=== PATIENT | male | born 1945 | race Caucasian/White ===

== ENCOUNTER 2022-09-14 02:28 | Outpatient (REF) | payer MEDICARE, SELFPAY ==
[2022-09-14 12:12] LABS: Estimated Average Glucose 180 mg/dL; Glycohemoglobin A1C 7.9 % (4.5-6.2)
== END 2022-09-14 02:29 | disposition home or self-care (01) ==
LOC: LAB 02:28
PROVIDERS: PCP Specialist; Visit Provider Specialist
DX: E11.59 Type 2 diabetes mellitus with other circulatory complications (principal)
CPT/HCPCS: 36415; 83036

== ENCOUNTER 2022-10-16 02:11 | Outpatient (REF) | payer MEDICARE, SELFPAY ==
[2022-10-16 07:56] LABS: Basophils Percent Auto 0.4 % (0.2-2.0); Eosinophils Absolute Auto 0.1 10^3/uL (0.0-0.7); Eosinophils Percent Auto 1.7 % (0.9-7.0); Hematocrit 35.5 % (42.0-54.0); Hemoglobin 10.9 g/dL (14.0-18.0); Immature Granulocytes Abs Auto 0.03 10^3/uL (0.00-0.03); Immature Granulocytes Pct Auto 0.4 % (0.0-0.5); Lymphocytes Absolute Auto 1.1 10^3/uL (1.2-3.8); Lymphocytes Percent Auto 14.8 % (20.5-60.0); Mean Corpuscular HGB Conc 30.7 g/dL (29.9-35.2); Mean Corpuscular Hemoglobin 28.3 pg (25.9-34.0); Mean Corpuscular Volume 92.2 fL (80.0-94.0); Mean Platelet Volume 11.8 fL (9.5-13.5); Monocytes Absolute Auto 0.5 10^3/uL (0.3-0.8); Monocytes Percent Auto 6.7 % (1.7-12.0); Neutrophils Absolute Auto 5.8 10^3/uL (1.4-6.5); Platelet Count 138 10^3/uL (150-450); Red Blood Count 3.85 10^6/uL (4.70-6.10); Red Cell Distribution Width 13.6 % (11.0-15.0); White Blood Count 7.6 10^3/uL (4.0-11.0)
[2022-10-16 08:29] LABS: Alanine Aminotransferase 7 U/L (16-63); Albumin Globulin Ratio 0.7; Albumin Level 2.9 g/dL (3.4-5.0); Alkaline Phosphatase 69 U/L (46-116); Anion Gap 12.3; Aspartate Amino Transferase 10 U/L (15-37); BUN Creatinine Ratio 17.6; Bilirubin Total 0.2 mg/dL (0.2-1.0); Calcium 8.5 mg/dL (8.5-10.1); Carbon Dioxide 28.4 mmol/L (21.0-32.0); Chloride 110 mmol/L (98-107); Estimated GFR (African America 35 (>=60); Estimated GFR (Non-African Ame 29 (>=60); Globulin 4.2 g/dL; Glucose 99 mg/dL (74-106); Magnesium 2.6 mg/dL (1.8-2.4); Potassium 3.7 mmol/L (3.5-5.1); Sodium 147 mmol/L (136-145); Total Protein 7.1 g/dL (6.4-8.2)
[2022-10-19 11:08] LABS: Tacrolimus (FK506), Blood 7.9 ng/mL (2.0-20.0)
== END 2022-10-16 02:12 | disposition home or self-care (01) ==
LOC: LAB 02:11
PROVIDERS: PCP Specialist; Visit Provider Family Medicine
DX: Z94.1 Heart transplant status (principal)
CPT/HCPCS: 36415; 80053; 80197; 83735; 85025

== ENCOUNTER 2022-10-30 08:50 | Outpatient (REF) | payer MEDICARE, SELFPAY ==
[2022-10-30 09:25] LABS: Alanine Aminotransferase 10 U/L (16-63); Albumin Globulin Ratio 0.7; Albumin Level 3.1 g/dL (3.4-5.0); Alkaline Phosphatase 69 U/L (46-116); Anion Gap 8.1; Aspartate Amino Transferase 10 U/L (15-37); BUN Creatinine Ratio 15.9; Bilirubin Total 0.2 mg/dL (0.2-1.0); Calcium 8.8 mg/dL (8.5-10.1); Carbon Dioxide 31.9 mmol/L (21.0-32.0); Chloride 106 mmol/L (98-107); Estimated GFR (African America 34 (>=60); Estimated GFR (Non-African Ame 28 (>=60); Globulin 4.2 g/dL; Glucose 84 mg/dL (74-106); Sodium 142 mmol/L (136-145); Total Protein 7.3 g/dL (6.4-8.2)
== END 2022-10-30 08:51 | disposition home or self-care (01) ==
LOC: LAB 08:50
PROVIDERS: PCP Specialist; Visit Provider Family Medicine
DX: R60.9 Edema, unspecified (principal); I50.9 Heart failure, unspecified
CPT/HCPCS: 36415; 80053; 83880

== ENCOUNTER 2022-11-04 00:59 | Outpatient (REF) | payer MEDICARE, SELFPAY ==
[2022-11-04 08:52] LABS: BUN Creatinine Ratio 16.6; Calcium 8.5 mg/dL (8.5-10.1); Carbon Dioxide 28.7 mmol/L (21.0-32.0); Chloride 105 mmol/L (98-107); Estimated GFR (African America 36 (>=60); Estimated GFR (Non-African Ame 29 (>=60); Glucose 82 mg/dL (74-106); Potassium 3.7 mmol/L (3.5-5.1); Sodium 142 mmol/L (136-145)
== END 2022-11-04 01:00 | disposition home or self-care (01) ==
LOC: LAB 00:59
PROVIDERS: PCP Specialist; Visit Provider Family Medicine
DX: R60.9 Edema, unspecified (principal); Z51.81 Encounter for therapeutic drug level monitoring; Z79.899 Other long term (current) drug therapy
CPT/HCPCS: 36415; 80048

== ENCOUNTER 2022-11-11 01:59 | Outpatient (REF) | payer MEDICARE, SELFPAY ==
[2022-11-11 15:05] LABS: Anion Gap 9.2; BUN Creatinine Ratio 13.9; Chloride 105 mmol/L (98-107); Estimated GFR (African America 27 (>=60); Estimated GFR (Non-African Ame 23 (>=60); Glucose 115 mg/dL (74-106); Potassium 4.2 mmol/L (3.5-5.1); Sodium 140 mmol/L (136-145)
== END 2022-11-11 02:00 | disposition home or self-care (01) ==
LOC: LAB 01:59
PROVIDERS: PCP Specialist; Visit Provider Family Medicine
DX: Z51.81 Encounter for therapeutic drug level monitoring (principal)
CPT/HCPCS: 36415; 80048

== ENCOUNTER 2022-11-27 05:45 | Outpatient (REF) | payer MEDICARE, SELFPAY ==
[2022-11-27 10:12] LABS: Basophils Absolute Auto 0.1 10^3/uL (0.0-0.1); Basophils Percent Auto 0.8 % (0.2-2.0); Eosinophils Absolute Auto 0.2 10^3/uL (0.0-0.7); Eosinophils Percent Auto 2.3 % (0.9-7.0); Hematocrit 35.1 % (42.0-54.0); Hemoglobin 10.7 g/dL (14.0-18.0); Immature Granulocytes Abs Auto 0.04 10^3/uL (0.00-0.03); Immature Granulocytes Pct Auto 0.5 % (0.0-0.5); Lymphocytes Absolute Auto 0.9 10^3/uL (1.2-3.8); Lymphocytes Percent Auto 10.7 % (20.5-60.0); Mean Corpuscular HGB Conc 30.5 g/dL (29.9-35.2); Mean Corpuscular Hemoglobin 28.1 pg (25.9-34.0); Mean Corpuscular Volume 92.1 fL (80.0-94.0); Mean Platelet Volume 11.8 fL (9.5-13.5); Monocytes Absolute Auto 0.5 10^3/uL (0.3-0.8); Monocytes Percent Auto 5.7 % (1.7-12.0); Neutrophils Absolute Auto 6.7 10^3/uL (1.4-6.5); Platelet Count 170 10^3/uL (150-450); Red Blood Count 3.81 10^6/uL (4.70-6.10); Red Cell Distribution Width 13.3 % (11.0-15.0); White Blood Count 8.4 10^3/uL (4.0-11.0)
[2022-11-27 10:32] LABS: Alanine Aminotransferase 8 U/L (16-63); Albumin Globulin Ratio 0.7; Alkaline Phosphatase 80 U/L (46-116); Anion Gap 13.7; Aspartate Amino Transferase 9 U/L (15-37); BUN Creatinine Ratio 13.5; Bilirubin Total 0.3 mg/dL (0.2-1.0); Calcium 8.7 mg/dL (8.5-10.1); Carbon Dioxide 27.7 mmol/L (21.0-32.0); Chloride 102 mmol/L (98-107); Estimated GFR (African America 30 (>=60); Estimated GFR (Non-African Ame 25 (>=60); Globulin 4.2 g/dL; Glucose 229 mg/dL (74-106); Potassium 4.4 mmol/L (3.5-5.1); Sodium 139 mmol/L (136-145); Total Protein 7.2 g/dL (6.4-8.2)
== END 2022-11-27 05:46 | disposition home or self-care (01) ==
LOC: LAB 05:45
PROVIDERS: PCP Specialist; Visit Provider Family Medicine
DX: I50.43 Acute on chronic combined systolic (congestive) and diastolic (congestive) heart failure (principal); N18.9 Chronic kidney disease, unspecified
CPT/HCPCS: 36415; 80053; 83880; 85025

== ENCOUNTER 2023-03-10 03:43 | Outpatient (REF) | payer MEDICARE, SELFPAY ==
[2023-03-10 09:26] LABS: Basophils Percent Auto 0.5 % (0.2-2.0); Eosinophils Absolute Auto 0.2 10^3/uL (0.0-0.7); Eosinophils Percent Auto 2.8 % (0.9-7.0); Hematocrit 33.1 % (42.0-54.0); Immature Granulocytes Abs Auto 0.04 10^3/uL (0.00-0.03); Immature Granulocytes Pct Auto 0.5 % (0.0-0.5); Lymphocytes Percent Auto 12.5 % (20.5-60.0); Mean Corpuscular HGB Conc 30.2 g/dL (29.9-35.2); Mean Corpuscular Volume 92.7 fL (80.0-94.0); Mean Platelet Volume 12.3 fL (9.5-13.5); Monocytes Absolute Auto 0.7 10^3/uL (0.3-0.8); Monocytes Percent Auto 8.2 % (1.7-12.0); Neutrophils Absolute Auto 6.1 10^3/uL (1.4-6.5); Neutrophils Percent Auto 75.5 % (43.0-75.0); Platelet Count 147 10^3/uL (150-450); Red Blood Count 3.57 10^6/uL (4.70-6.10); Red Cell Distribution Width 13.5 % (11.0-15.0); White Blood Count 8.1 10^3/uL (4.0-11.0)
[2023-03-10 10:13] LABS: Anion Gap 11.3; Calcium 9.4 mg/dL (8.5-10.1); Chloride 103 mmol/L (98-107); Estimated GFR (African America 24 (>=60); Estimated GFR (Non-African Ame 19 (>=60); Glucose 172 mg/dL (74-106); Potassium 4.3 mmol/L (3.5-5.1); Sodium 141 mmol/L (136-145); Thyroid Stimulating Hormone 5.195 uIU/mL (0.358-3.740)
[2023-03-10 10:32] LABS: Free T4 0.85 ng/dL (0.76-1.46)
== END 2023-03-10 03:44 | disposition home or self-care (01) ==
LOC: LAB 03:43
PROVIDERS: PCP Specialist; Visit Provider Nurse Practitioner Family
DX: I50.43 Acute on chronic combined systolic (congestive) and diastolic (congestive) heart failure (principal); Z94.1 Heart transplant status; E11.59 Type 2 diabetes mellitus with other circulatory complications
CPT/HCPCS: 36415; 80048; 83880; 84439; 84443; 85025

== ENCOUNTER 2023-04-14 | Outpatient (OUT) | payer MEDICARE, SELFPAY ==
--- OUTSIDE RECORDS SUMMARY | 2023-04-14 01:13 | XMS_ITS | CCD ---
Author Name Unknown Address [address] [place] [address] Organization [facility] Care Team Providers Care Education Managers Name Role Phone Michael Carballo Unavailable Unavailable Unavailable Michael Carballo Primary Care Provider [phone] MD Michael Carballo Primary Care Provider [phone] JIL Daives Attending Provider DO Manfred Wilson [facility] Andrew Hern[facility]dez Emergency Provider MD Omid Myrick Admit Provider [phone] MD Omid Myrick Attending Provider [phone] Al MD Yoshi Campoverde Attending Provider Michael Carballo Unavailable DionPascual wheataashish Unavailable Palliative Care Unavailable Unavailable Gene Shook Unavailable Felicia Astorga Unavailable Michael Carballo Primary Care Provider DONNA ARELLANO Referring Unavailable MICHAEL CARBALLO Primary Care Unavailable DIOGENES ., DR MICHAEL Palomino Primary Care Unavailable CARBALLO ., DR MICHAEL Palomino Admitting Unavailable CARBALLO ., DR MICHAEL Palomino Attending Unavailable CARBALLO ., DR MICHAEL Palomino Consulting Unavailable CARBALLO ., DR MICHAEL Palomino Primary Care Unavailable CARBALLO ., DR MICHAEL Palomino Admitting Unavailable CARBALLO ., DR MICHAEL Palomino Attending Unavailable CARBALLO ., DR MICHAEL Palomino Consulting Unavailable CARBALLO ., DR MICHAEL Palomino Primary Care Unavailable CARBALLO ., DR MICHAEL Palomino Admitting Unavailable CARBALLO ., DR MICHAEL Palomino Attending Unavailable CARBALLO ., DR MICHAEL Palomino Consulting Unavailable CARBALLO ., DR MICHAEL Palomino Primary Care Unavailable CARBALLO ., DR MICHAEL Palomino Admitting Unavailable CARBALLO ., DR MICHAEL Palomino Attending Unavailable CARBALLO ., DR MICHAEL Palomino Primary Care Unavailable ROSSI, DR ARCHER Admitting Unavailable ROSSI, DR ARCHER Attending Unavailable ROSSI, DR ARCHER Consulting Unavailable CARBALLO ., DR MICHAEL Palomino Admitting Unavailable CARBALLO ., DR MICHAEL Palomino Attending Unavailable CARBALLO ., DR MICHAEL Palomino Consulting Unavailable CARBALLO ., DR MICHAEL Palomino Primary Care Unavailable Jaron Ness Consulting Unavailable CARBALLO ., DR MICHAEL Palomino Primary Care Unavailable MICHAEL COOK Admitting Unavailable MICHAEL COOK Attending Unavailable MICHAEL COOK Consulting Unavailable MD SCOUT ROMO Attending Unavailable Carballo, Dr. Michael López Primary Care Unavailab DO FELICIA Frank Attending Unava ilable Carballo, Dr. Michael López Primary Care Unavailab Manfred Barlow Primary Care Unavailable Anna Tucker Attending Unavailable Anna Tucker Admitting Unavailable Allergies Allergy Classification Reported Allergen(s) Allergy Type Date of Onset Reaction(s) Facility (8 sources) Allopurinol; Translations: [allopurinol] Drug Allergy 10-16-2018 [facility] (8 sources) ceFAZolin; Translations: [Cefazolin] Drug Allergy 06-25-2021 Rash, Unknown [facility] Comment on above: extensive fiery red and warm flat rash (1 source) Allopurinol Drug Allergy [facility] (1 source) ceFAZolin Drug Allergy [facility] (1 source) Allopurinol Drug Allergy 06-25-2021 [facility] Medications Current Medications Medication Drug Class(es) Dates Sig (Normalized) Sig (Original) alendronic acid 35 mg oral tablet (20 sources) Bisphosphonate Start: 07-31-2014 take 35 mg by mouth every week Alendronate Active 35 MG PO every week February 02, 2017 1:00am taken on Wednesdays alogliptin 12.5 mg oral tablet (3 sources) Start: 06-25-2021 take 12.5 mg by mouth once daily Alogliptin Active 12.5 MG PO Daily June 25, 2021 7:18pm ARIPiprazole 2 mg oral tablet (2 sources) Atypical Antipsychotic take 1 tablet by mouth once daily ARIPiprazole (ABILIFY) 2 MG tablet Take 2 mg by mouth daily 0 Active aspirin 81 mg chewable tablet (10 sources) Platelet Aggregation Inhibitor, Nonsteroidal Anti-inflammatory Drug Start: 12-18-2020 aspirin chewable tablet 81 mg Start: 02-02-2017 take 81 mg by mouth once daily Aspirin Active 81 MG PO Daily February 02, 2017 12:34pm Start: 01-23-2016 End: 08-19-2016 take 1 tablet by mouth once daily aspirin 81 mg oral tablet, chewable ; 1 tab crushed and mixed with water by gastrostomy tube once a day Quantity: 30 Refills: 6 Ordered: 23-Jan-2016 Warren Burr Start: 23-Jan-2016 End: 19-Aug-2016 Status: Discontinued Generic Substitution Allowed take 1 tablet by anila th once daily aspirin 81 mg oral tablet ; 1 tab(s) orally once a day Quantity: 0 Refills: 0 Ordered: 26-Jul-2013 Becka Rojas Status: Other Generic Substitution Allowed atorvastatin 80 mg oral tablet (20 sources) HMG-CoA Reductase Inhibitor Start: 06-13-2018 take 80 mg by mouth once daily Atorvastatin Active 80 MG PO Daily August 04, 2018 12:00am Start: 01-23-2016 End: 01-24-2016 take 1 tablet by mouth once at bedtime atorvastatin 40 mg oral tablet ; 1 tab(s) crush and mix with water and give by gastrostomy tube once (at bedtime) Quantity: 30 Refills: 0 Ordered: 23-Jan-2016 Warren Burr Start: 23-Jan-2016 End: 24-Jan-2016 Status: Discontinued Generic Substitution Allowed calcium carbonate 625 mg / cholecalciferol 125 unt oral tablet (20 sources) Vitamin D Start: 06-25-2021 Calcium Carbon ate-Vitamin D3 (Oyster Shell + D3) 250 mg-3.125 mcg (125 unit) Tablet Active TAB TABLET June 25, 2021 7:18pm Start: 12-24-2020 End: 01-22-2021 take 1 tablet by mouth once daily [place] Calcium+D3 500 mg-5 mcg (200 intl units) oral tablet ; 1 tab(s) orally once a day Quantity: 30 Refills: 0 Ordered: 24-Dec-2020 Kd Lala Start: 24-Dec-2020 End: 22-Jan-2021 Status: Discontinued Generic Substitution Allowed Start: 12-23-2015 End: 01-22-2021 Calcium 500+D 500-200 MG-UNI T TABS Take 1 tablet twice daily Quantity: 180 Refills: 3 Ordered: 23-Dec-2015 Manohar Valdez MD Start : 23-Dec-2015 Active take 1 tablet by anila twice daily Calcium 600+D 600 mg-200 units oral tablet ; 1 tab(s)crushed and mixed with water by gastrostomy tube 2 times a day Quantity: 0 Refills: 0 Ordered: 23-Jan-2016 Warren Burr Status: Other Generic Substitution Allowed calcium citrate 2380 mg / cholecalciferol 0.01 mg chewable tablet (1 source) Vitamin D take 1 tablet by mouth once daily Calcium 500+D oral tablet, chewable ; 1 tab(s) orally once a day Quantity: 0 Refills: 0 Ordered: 19-Oct-2018 Agnes De La Fuente Status: Discontinued Generic Substitution Allowed carbidopa 25 mg / levodopa 100 mg oral tablet (17 sources) Aromatic Amino Acid Decarboxylation Inhibitor, Aromatic Amino Acid Start: 022 take 0.5 tablet by mouth three times daily Carbidopa-Levodopa Active 0.5 TAB PO Three times daily June 25, 2021 12:00am Start: 12-24-2020 End: 01-22-2021 take 1.5 tablets by mouth three times daily Carbidopa-Levodopa 25-100 MG Oral Tablet TAKE 1.5 TABLET 3 times daily Quantity: 135 Refills: 4 Ordered: 22-Jul-2022 DO Start : 31-Dec-2020 Active clobetasol propionate 0.5 mg/ml topical cream (1 source) Corticosteroid clobetasol 0.05% topical cream ; Apply topically to affected area 2 times a day for 1-2 weeks avoid use on face, armpits, groin, genitalia Quantity: 0 Refills: 0 Ordered: 31-Oct-2018 Gayle Morales Status: Other Generic Substitution Allowed 24 hr dilTIAZem hydrochloride 300 mg extended release oral capsule (20 sources) Calcium Channel Francesco Start: 12-18-2020 dilTIAZem (CARDIZEM) tablet 120 mg Start: 12-18-2020 End: 12-18-2020 dilTIAZem (CARDIZEM) tablet 240 mg Start: 11-03-2018 take 1 capsule by mo [facility] once daily in the evening dilTIAZem HCl ER Coated Beads 300 MG Oral Capsule Extended Release 24 Hour take 1 capsule every evening Quantity: 0 Refills: 0 Ordered: 04-Jul-2021 Felicia Astorga DO Start : 03-Nov-2018 Active Start: 11-03-2018 take 1 capsule by [facility] once daily dilTIAZem HCl ER Coated Beads 360 MG Oral Capsule Extended Release 24 Hour TAKE 1 CAPSULE Daily Quantity: 30 Refills: 11 Ordered: 03-Nov-2018 Felicia Astorga DO Start : 03-Nov-2018 Active Start: 11-03-2018 take 1 capsule by [facility] once daily dilTIAZem HCl ER Coated Beads 240 MG Oral Capsule Extended Release 24 Hour TAKE 1 CAPSULE Daily Quantity: 90 Refills: 3 Ordered: 24-Dec-2020 Felicia Astorga DO Start : 03-Nov-2018 Active Start: 10-31-2018 take 1 capsule by [facility] every twenty-four hours dilTIAZem 240 mg/24 hours oral capsule, extended release ; 1 cap(s) orally every 24 hours Quantity: 0 Refills: 0 Ordered: 31-Oct-2018 Gayle Morales Start: 31-Oct-2018 Status: Discontinued Generic Substitution Allowed Start: 02-02-2017 take 120 mg by mouth once tommy y Diltiazem Hcl Active 120 MG PO Daily February 02, 2017 12:34pm Start: 02-02-2017 take 240 mg by mouth once tommy y Diltiazem Hcl Active 240 MG PO Daily February 02, 2017 12:34pm Start: 01-23-2016 End: 05-21-2016 take 1 tablet by mouth every six hours diltiaZEM 30 mg oral tablet ; 1 tab crushed and mixed with water by gastrostomy tube every 6 hours Quantity: 120 Refills: 3 Ordered: 23-Jan-2016 Warren Burr Start: 23-Jan-2016 End: 21-May-2016 Status: Discontinued Generic Substitution Allowed End: 12-18-2020 dilTIAZem (CARDIZEM 12 HR) 1 20 MG extended release capsule Take 360 mg by mouth 2 times daily 0 12/18/2020 Discontinued (LIST CLEANUP) docosanol 100 mg/ml topical cream (1 source) Start: 10-31-2018 docosanol 10% topical cream ; 1 application topically 5 times a day - to Lip Quantity: 0 Refills: 0 Ordered: 31-Oct-2018 Gayle Morales Start: 31-Oct-2018 Status: Other Generic Substitution Allowed Enoxaparin (1 source) Low Molecular Weight Heparin Start: 10-31-2018 inject 40 mg by subcutaneous injection every twenty-four hours enoxaparin ; 40 milligram(s) subcutaneous every 24 hours Quantity: 0 Refills: 0 Ordered: 31-Oct-2018 Gayle Morales Start: 31-Oct-2018 Status: Discontinued Generic Substitution Allowed hydrALAZINE hydrochloride 50 mg oral tablet (20 sources) Arteriolar Vasodilator Start: 06-25-2021 take 100 mg by mouth three times daily Hydralazine Active 100 MG PO Three times daily June 25, 2021 7:18pm Start: 12-24-2020 End: 01-22-2021 take 1 tablet by mouth every eight hours hydrALAZINE 100 mg oral tablet ; 1 tab(s) orally every 8 hours Quantity: 90 Refills: 0 Ordered: 24-Dec-2020 Kd Lala Start: 24-Dec-2020 End: 22-Jan-2021 Generic Substitution Allowed Start: 12-19-2020 hydrALAZINE (A PRESOLINE) injection 5 mg Start: 11-17-2019 hydrALAZINE (A PRESOLINE) tablet 50 mg Start: 10-31-2018 take 1 tablet by [facility] three times daily hydrALAZINE HCl - 100 MG Oral Tablet TAKE 1 TABLET 3 TIMES DAILY. Quantity: 270 Refills: 3 Ordered: 17-Nov-2019 Joselyn Arias MD Start : 17-Nov-2019 Active hyoscyamine sulfate 0.125 mg oral tablet (2 sources) take 1 tablet by mouth every four hours as needed hyoscyamine (ANASPAZ;LEVSIN) 125 MCG tablet Take 125 mcg by mouth every 4 hours as needed for Cramping 0 Active insulin lispro (HUMALOG) 100 UNIT/ML injection vial (1 source) insulin lispro (HUMALOG) 100 UNIT/ML injection vial Inject 1 Units into the skin 3 times daily (before meals) Sliding scale 0 Active 24 hr isosorbide mononitrate 120 mg extended release oral tablet (6 sources) Nitrate Vasodilator Start: 11-01-19 take 120 mg by mouth once daily Isosorbide Mononitrate Active 120 MG PO Daily June 25, 2021 12:00am krill oil 1000 mg oral capsule (1 source) take 1 capsule by mouth twice daily Fish Oil 1000 mg oral capsule ; 1 cap(s) orally 2 times a day Quantity: 0 Refills: 0 Ordered: 19-Oct-2018 Agnes De La Fuente Generic Substitution Allowed levothyroxine sodium 0.075 mg oral capsule (20 sources) l-Thyroxine Start: 02-03-20 17 take 75 ug by mouth once daily Levothyroxine Active 75 MCG PO Daily February 02, 2017 12:34pm Start: 07-31-2014 take 1 tablet by anila th once daily Levothyroxine Sodium 75 MCG Oral Tablet TAKE 1 TABLET DAILY DIRECTED. Quantity: 90 Refills: 3 Ordered: 09-May-2020 Joselyn Arias MD Start : 31-Jul-2014 Active take 1 tablet by anila th once daily Synthroid 75 mcg (0.075 mg) oral tablet ; 1 tab crushed and mixed with waterby gastrostomy tube once a day Quantity: 0 Refills: 0 Ordered: 23-Jan-2016 Warren Burr Status: Other Generic Substitution Allowed lisinopril 5 mg oral tablet (12 sources) Angiotensin Converting Enzyme Inhibitor Start: 12-18-2020 lisinopril (PRINIVIL;ZESTRIL) tablet 10 mg Start: 02-02-2017 End: 06-25-2021 take 20 mg by mouth once daily Lisinopril Discontinued 20 MG PO Daily February 02, 2017 12:34pm June 25, 2021 7:33pm Start: 01-08-2016 take 1 tablet by anila th once daily at bedtime lisinopril 10 mg oral tablet ; 1 tab(s) orally once a day (at bedtime) Quantity: 0 Refills: 0 Ordered: 08-Jan-2016 Sandra Romero Start: 08-Jan-2016 Status: Discontinued Generic Substitution Allowed Start: 07-31-2014 take 0.5 tablet by m outh once daily Lisinopril 20 MG Oral Tablet TAKE 1/2 TABLET DAILY. Quantity: 1 Refills: 11 Ordered: 19-Jun-2019 Joselyn Arias MD Start : 31-Jul-2014 Active loperamide hydrochloride 2 mg oral capsule (2 sources) Opioid Agonist take 1 capsule by mouth four times daily as needed for diarrhea loperamide (IMODIUM) 2 MG capsule Take 2 mg by mouth 4 times daily as needed for Diarrhea 0 Active loratadine 10 mg oral tablet (2 sources) Start: 2 take 10 mg by mouth once daily Loratadine Active 10 MG PO Daily June 27, 2021 10:17am LORazepam 0.5 mg oral tablet (2 sources) Benzodiazepine take 1 tablet by mouth three times daily LORazepam (ATIVAN) 0.5 MG tablet Take 0.5 mg by mouth 3 times daily. 0 Active magnesium oxide 400 mg oral tablet (20 sources) Start: 4 End: 1 take 400 mg by mouth twice daily Magnesium Oxide Active 400 MG PO Twice daily February 02, 2017 1:00am menthol 0.04 mg/mg topical gel (2 sources) Menthol, Topical Analgesic, (BIOFREEZE) 4 % GEL Apply 1 applicator topically nightly legs 0 Active Multivitamin preparation (3 sources) multivitamin ; 1 tab(s) by gastrostomy tube once a day Quantity: 0 Refills: 0 Ordered: 21-Jan-2016 Warren Burr Status: Other Generic Substitution Allowed take 1 tablet by mouth once tommy y Vitamin B-100 Vitamin B Complex with C oral tablet, extended release ; 1 tab(s) crushed and mixed with water by gastrostomy tube once a day Quantity: 0 Refills: 0 Ordered: 23-Jan-2016 Warren Burr Status: Other Generic Substitution Allowed take 1 tablet by mouth once tommy y Vitamin B-100 oral tablet ; 1 tab(s) orally once a day Quantity: 0 Refills: 0 Ordered: 19-Oct-2018 Agnes De La Fuente Status: Discontinued Generic Substitution Allowed mycophenolate mofetil 250 mg oral capsule (20 sources) Start: 12-18-2020 mycophenolate (CELLCEPT) capsule 250 mg Start: 11-02-2018 take 1 capsule by [facility] every twelve hours Mycophenolate Mofetil 250 MG Oral Capsule TAKE 1 CAPSULE Every twelve hours Quantity: 60 Refills: 11 Ordered: 31-Dec-2020 Joselyn Arias MD Start : 02-Nov-2018 Active Start: 10-31-2018 take 1 capsule by mo uth every twelve hours mycophenolate mofetil 250 mg oral capsule ; 1 cap(s) orally every 12 hours Quantity: 0 Refills: 0 Ordered: 31-Oct-2018 MoralesCeciliae Start: 31-Oct-2018 Generic Substitution Allowed Start: 02-02-2017 take 500 mg by mouth twice daily Mycophenolate Mofetil Active 500 MG PO Twice daily February 02, 2017 12:34pm Start: 02-02-2017 take 250 mg by mouth twice daily Mycophenolate Mofetil Active 250 MG PO Twice daily February 02, 2017 12:34pm Start: 01-23-2016 End: 02-22-2016 take 2.5 mL by mouth twice daily mycophenolate mofetil 200 mg/mL oral suspension ; 2.5 milliliter(s) by gastrostomy tube 2 times a day Quantity: 1 Refills: 0 Ordered: 23-Jan-2016 Warren Burr Start: 23-Jan-2016 End: 22-Feb-2016 Status: Other Generic Substitution Allowed take 1 tablet by anila th once daily in the evening mycophenolate mofetil 500 mg oral tablet ; 1 tab(s) orally once a day (in the evening) Quantity: 0 Refills: 0 Ordered: 23-Dec-2015 Tamiko Dsouza Status: Discontinued Generic Substitution Allowed [place] 8-Srv-Nnh-Fish Oil (Fish Oil) 1,000 mg (120 mg-180 mg) Capsule (4 sources) Start: 08-05-2017 take 1 tablet by mouth twice daily [place] 8-Fat-Mxw-Fish Oil (Fish Oil) 1,000 mg (120 mg-180 mg) Capsule Active 1 TAB PO Twice daily August 05, 2017 11:13am Start: 08-05-2017 take 1 tablet by anila th once daily [place] 1-Pxt-Cse-Fish Oil (Fish Oil) 1,000 mg (120 mg-180 mg) Capsule Active 1 TAB PO Daily August 05, 2017 11:13am Start: 08-05-2017 take 1 tablet by anila th twice daily [place] 5-Dwq-Bcm-Fish Oil (Fish Oil) 1,000 mg (120 mg-180 mg) Capsule Active 1 TAB PO Twice daily August 05, 2017 12:00am 2 ml ondansetron 2 mg/ml injection (2 sources) Serotonin-3 Receptor Antagonist ondansetron (ZOFRAN) 4 MG/2ML injection Inject 4 mg into the muscle every 6 hours as needed for Nausea or Vomiting 0 Active pantoprazole 40 mg delayed release oral tablet (20 sources) Proton Pump Inhibitor Start: 10-17-19 16 take 1 tablet by mouth once daily Pantoprazole (Protonix) 40 mg Tablet,Delayed Release (Dr/Ec) Active 40 MG PO Daily February 02, 2017 1:00am probenecid 500 mg oral tablet (1 source) take 1 tablet by mouth once daily probenecid 500 mg oral tablet ; 1 tab(s) orally once a day Quantity: 0 Refills: 0 Ordered: 26-Jul-2013 Becka Rojas Status: Other Generic Substitution Allowed risedronate sodium 35 mg oral tablet (1 source) take 1 tablet by mouth every week Actonel 35 mg oral tablet ; 1 tab(s) by gastrostomy tube once a week Quantity: 0 Refills: 0 Ordered: 21-Jan-2016 Warren Burr Status: Discontinued Generic Substitution Allowed sirolimus 1 mg oral tablet (2 sources) Kinase Inhibitor, mTOR Inhibitor Immunosuppressant Start: 12-30-19 16 take 1 tablet by mouth once daily sirolimus 1 mg oral tablet ; 1 tab(s) orally once a day Quantity: 0 Refills: 0 Ordered: 30-Dec-2015 Bonilla Villarreal Start: 30-Dec-2015 Status: Discontinued Generic Substitution Allowed take 2 tablets by mouth once anyi ly sirolimus 1 mg oral tablet ; 2 tab(s) orally once a day Quantity: 0 Refills: 0 Ordered: 23-Dec-2015 Giana Gonzalez Status: Discontinued Generic Substitution Allowed sulfamethoxazole 40 mg/ml / trimethoprim 8 mg/ml oral suspension (2 sources) Dihydrofolate Reductase Inhibitor Antibacterial, Sulfonamide Antimicrobial Start: 01-23-2016 sulfamethoxazole-trimethopri m 200 mg-40 mg/5 mL oral suspension ; 20 milliliter(s) orally 2 times a day every wednesday and wednesday. Quantity: 250 Refills: 6 Ordered: 23-Jan-2016 Warren Burr Start: 23-Jan-2016 Status: Other Generic Substitution Allowed Comments: Avoid prolonged or excessive exposure to direct and/or artificial sunlight while taking this medication.Finish all this medication unless otherwise directed by prescriber.Medication should be taken with plenty of water.Shake well before use. Start: 01-21-2016 End: 02-20-2016 take 1 tablet by mouth twice daily Bactrim DS 800 mg-160 mg oral tablet ; 1 tab(s) by gastrostomy tube 2 times a day only on [facility]gfw[facility]nbn[facility] Quantity: 24 Refills: 0 Ordered: 21-Jan-2016 Warren Burr Start: 21-Jan-2016 End: 20-Feb-2016 Status: Discontinued Generic Substitution Allowed Comments: Avoid prolonged or excessive exposure to direct and/or artificial sunlight while taking this medication.Finish all this medication unless otherwise directed by prescriber.Medication should be taken with plenty of water. Comment on above: Avoid prolonged or e xcessive exposure to direct and/or artificial sunlight while taking this medication.Finish all this medication unless otherwise directed by prescriber.Medication should be taken with plenty of water.Shake well before use. Avoid prolonged or e xcessive exposure to direct and/or artificial sunlight while taking this medication.Finish all this medication unless otherwise directed by prescriber.Medication should be taken with plenty of water. tamsulosin hydrochloride 0.4 mg oral capsule (2 sources) alpha-Adrenergic Francesco take 1 capsule by mouth once daily tamsulosin (FLOMAX) 0.4 MG capsule Take 0.4 mg by mouth daily 0 Active traZODone hydrochloride 100 mg oral tablet (2 sources) Serotonin Reuptake Inhibitor take 1 tabl et by mouth once daily traZODone (DESYREL) 100 MG tablet Take 100 mg by mouth nightly 0 Active Completed/Discontinued Medications Medication Drug Class(es) Dates Sig (Normalized) Sig (Original) acetaminophen 325 mg oral tablet (12 sources) Start: 07-04-2021 take 1-2 tablets by mouth every six hours as needed Acetaminophen 325 MG Oral Tablet TAKE 1 TO 2 TABLETS EVERY 6 HOURS NEEDED. Quantity: 240 Refills: 2 Ordered: 04-Jul-2021 DO Start : 04-Jul-2021 Active Start: 07-02-2021 take 2 tablets by mo uth every four hours as needed acetaminophen 325 mg oral tablet ; 2 tab(s) orally every 4 hours, As needed, Pain - Mod (4-6) Quantity: 0 Refills: 0 Ordered: 02-Jul-2021 Jihan Storm Start: 02-Jul-2021 Generic Substitution Allowed Start: 01-23-2016 take 15 mL by mouth every six hours as needed acetaminophen 500 mg/15 mL oral liquid ; 15 milliliter(s) orally every 6 hours, As Needed Quantity: 500 Refills: 5 Ordered: 23-Jan-2016 Warren Burr Start: 23-Jan-2016 Status: Other Generic Substitution Allowed Comments: This product contains acetaminophen. Do not use with any other product containing acetaminophen to prevent possible liver damage. take 2 tablets by [facility] every six hours as needed for pain acetaminophen (TYLENOL) 325 MG tablet Take 650 mg by mouth every 6 hours as needed for Pain 0 Active Comment on above: This product contain s acetaminophen. Do not use with any other product containing acetaminophen to prevent possible liver damage. acyclovir 40 mg/ml oral suspension (2 sources) Herpesvirus Nucleoside Analog DNA Polymerase Inhibitor, Herpes Simplex Virus Nucleoside Analog DNA Polymerase Inhibitor, Herpes Zoster Virus Nucleoside Analog DNA Polymerase Inhibitor Start: 6 End: 7 take 400 mg by mouth twice daily acyclovir 200 mg/5 mL oral suspension ; 400 milligram(s) by gastrostomy tube 2 times a day Quantity: 300 Refills: 6 Ordered: 23-Jan-2016 Warren Burr Start: 23-Jan-2016 End: 19-Aug-2016 Status: Other Generic Substitution Allowed Start: 01-21-2016 End: 02-20-2016 take 1 tablet by mouth every twelve hours acyclovir 400 mg oral tablet ; 1 tab(s) by gastrostomy tube every 12 hours Quantity: 60 Refills: 0 Ordered: 21-Jan-2016 Warren Burr Start: 21-Jan-2016 End: 20-Feb-2016 Status: Discontinued Generic Substitution Allowed allopurinol 300 mg oral tablet (1 source) Xanthine Oxidase Inhibitor Start: 01-08-2016 End: 01-15-2016 take 1 tablet by mouth every twelve hours allopurinol 300 mg oral tablet ; 1 tab(s) orally every 12 hours x 7 days Quantity: 14 Refills: 0 Ordered: 08-Jan-2016 Sandra Romero Start: 08-Jan-2016 End: 15-Jan-2016 Status: Discontinued Generic Substitution Allowed ascorbic acid 500 mg chewable tablet (8 sources) Vitamin C Start: 02-04-2017 End: 06-25-2021 take 1 tablet by mouth once daily Ascorbic Acid (Vitamin C) (Vitamin C) 500 mg Tablet,Chewable Discontinued 500 MG PO Daily February 04, 2017 12:43pm June 25, 2021 7:34pm take 1 capsule by mouth twice da padmaja Vitamin C 500 mg oral capsule ; 1 cap(s) orally 2 times a day Quantity: 0 Refills: 0 Ordered: 26-Jul-2013 Becka Rojas Status: Discontinued Generic Substitution Allowed Vitamin C 500 MG TABS Take 1 tablet twice daily Quantity: 60 Refills: 0 Ordered: 23-Dec-2015 José Miguel PETERS, Manohar Active B Complex Oral Tablet (2 sources) take 1 tablet by mouth once daily B Complex Oral Tablet TAKE 1 TABLET DAILY. Quantity: 30 Refills: 0 Ordered: 18-Apr-2017 José Miguel PETERS, Manohar Active busPIRone hydrochloride 5 mg oral tablet (8 sources) Start: 10-15-2021 take 1 tablet by mouth twice daily busPIRone HCl - 5 MG Oral Tablet TAKE 1 TABLET TWICE DAILY. Quantity: 0 Refills: 0 Ordered: 22-Jul-2022 DO Start : 15-Oct-2021 Active Start: 10-15-2021 take 2 tablets by [facility] once daily busPIRone HCl - 10 MG Oral Tablet TAKE 2 TABLET Daily Quantity: 0 Refills: 0 Ordered: 15-Oct-2021 DO Start : 15-Oct-2021 Active take 1 tablet by [facility] twice daily busPIRone (BUSPAR) 15 MG tablet Take 15 mg by mouth 2 times daily 0 Active calcium carbonate 1250 mg oral capsule (4 sources) Start: 02-04-2017 End: 08-05-2017 take 1 tablet by mouth twice daily Calcium Carbonate Discontinued 1 TAB PO Twice daily February 04, 2017 12:35pm August 05, 2017 11:12am cholecalciferol 0.025 mg oral capsule (20 sources) Vitamin D Start: 07-22-2022 take 1 capsule by mouth once daily Vitamin D-3 25 MCG (1000 UT) Oral Capsule TAKE 1 CAPSULE Daily Quantity: 0 Refills: 0 Ordered: 22-Jul-2022 DO Start : 22-Jul-2022 Active Start: 06-25-2021 take 2000 [IU] by mo uth once daily Cholecalciferol (Vitamin D3) Active 2000 UNIT PO Daily June 25, 2021 7:18pm Start: 12-19-2020 take 1 tablet by anila th once daily Vitamin D3 25 MCG Oral Tablet TAKE 1 TABLET DAILY. Quantity: 0 Refills: 0 Ordered: 19-Dec-2020 DO Start : 19-Dec-2020 Active vitamin D (DENISE CALCIFEROL) 25 MCG (1000 UT) TABS tablet Take 1,000 Units by mouth daily 0 Active ciprofloxacin 500 mg oral tablet (1 source) Quinolone Antimicrobial Start: 01-21-2016 End: 02-04-2016 take 1 tablet by mouth once daily ciprofloxacin 500 mg oral tablet ; 1 tab(s) by gastrostomy tube 2 times a day Quantity: 28 Refills: 0 Ordered: 21-Jan-2016 Warren Burr Start: 21-Jan-2016 End: 04-Feb-2016 Status: Discontinued Generic Substitution Allowed Comments: Avoid prolonged or excessive exposure to direct and/or artificial sunlight while taking this medication.Check with your doctor before becoming .Do not take dairy products, antacids, or iron preparations within one hour of this medication.Finish all this medication unless otherwise directed by prescriber.Medication should be taken with plenty of water. Comment on above: Avoid prolonged or e xcessive exposure to direct and/or artificial sunlight while taking this medication.Check with your doctor before becoming .Do not take dairy products, antacids, or iron preparations within one hour of this medication.Finish all this medication unless otherwise directed by prescriber.Medication should be taken with plenty of water. cloNIDine hydrochloride 0.2 mg oral tablet (9 sources) Central alpha-2 Adrenergic Agonist Start: 07-04-2021 take 1 tablet by mouth twice daily cloNIDine HCl - 0.2 MG Oral Tablet TAKE 1 TABLET TWICE DAILY. Quantity: 0 Refills: 0 Ordered: 16-Jul-2021 DO Start : 04-Jul-2021 Active Start: 07-02-2021 take 1 tablet by anila twice daily cloNIDine 0.1 mg oral tablet ; 1 tab(s) orally 2 times a day Quantity: 0 Refills: 0 Ordered: 02-Jul-2021 Jihan Storm Start: 02-Jul-2021 Generic Substitution Allowed clopidogrel 75 mg oral tablet (20 sources) [id number] Platelet Inhibitor Start: 02-02-2017 End: 01-22-2021 take 1 tablet by mouth once daily clopidogrel 75 mg oral tablet ; 1 tab(s) orally once a day Quantity: 30 Refills: 0 Ordered: 24-Dec-2020 Kd Lala Start: 24-Dec-2020 End: 22-Jan-2021 Generic Substitution Allowed Start: 01-23-2016 End: 05-21-2016 clopidogrel 75 mg oral table t ; 1 tab crushed and mixed with water by gastrostomy tube once a day x3 months, then stop. Quantity: 30 Refills: 3 Ordered: 23-Jan-2016 Warren Burr Start: 23-Jan-2016 End: 21-May-2016 Status: Other Generic Substitution Allowed Comments: Do not take aspirin or aspirin containing products without knowledge and consent of your physician. Comment on above: Do not take aspirin or aspirin containing products without knowledge and consent of your physician. diphenhydrAMINE hydrochloride 25 mg oral tablet (8 sources) Histamine-1 Receptor Antagonist Start: 2 take 1 tablet by mouth every six hours as needed Benadryl Allergy 25 MG Oral Tablet TAKE 1 TABLET EVERY 6 HOURS NEEDED. Quantity: 0 Refills: 0 Ordered: 15-Oct-2021 DO Start : 15-Oct-2021 Active Start: 07-03-2021 diphenhydrAMIN E 2% topical cream ; 1 application topically 4 times a day, As needed, Itching - to Leg Quantity: 0 Refills: 0 Ordered: 03-Jul-2021 Jihan Storm Start: 03-Jul-2021 Generic Substitution Allowed Start: 10-31-2018 take 1 capsule by [facility] every six hours as needed diphenhydrAMINE 25 mg oral capsule ; 1 cap(s) orally every 6 hours, As needed, Itching Quantity: 0 Refills: 0 Ordered: 31-Oct-2018 Gayle Morales Start: 31-Oct-2018 Status: Discontinued Generic Substitution Allowed diphenhydrAMINE hydrochloride 20 mg/ml / zinc acetate 1 mg/ml topical cream (2 sources) Histamine-1 Receptor Antagonist Start: 07-04-2021 diphenhydrAMINE-Zinc Acetate 2-0.1 % External Cream APPLY TO AFFECTED AREA(S) 4 TIMES DAILY. Quantity: 0 Refills: 0 Ordered: 04-Jul-2021 DO Start : 04-Jul-2021 Active docosahexaenoic acid 120 mg / eicosapentaenoic acid 180 mg oral capsule (17 sources) Start: 06-07-2018 take 1 capsule by mouth every twelve hours Fish Oil 1000 MG Oral Capsule TAKE 1 CAPSULE Every twelve hours Quantity: 60 Refills: 11 Ordered: 07-Jun-2018 Joselyn Arias MD Start : 07-Jun-2018 Active take 1 capsule by mouth twice da padmaja [place]-3 Fatty Acids (FISH OIL) 1000 MG CAPS Take 3,000 mg by mouth 2 times daily 0 Active docusate sodium 100 mg oral capsule (6 sources) Start: 10-15-2021 take 1 capsule by mouth twice daily as needed Colace 100 MG Oral Capsule TAKE 1 CAPSULE TWICE DAILY NEEDED. Quantity: 0 Refills: 0 Ordered: 15-Oct-2021 DO Start : 15-Oct-2021 Active fluconazole 200 mg oral tablet (1 source) Azole Antifungal Start: 01-23-2016 End: 02-22-2016 take 2 tablets by mouth every twenty-four hours fluconazole 200 mg oral tablet ; 2 tab(s) crushed and mixed with water by gastrostomy tube every 24 hours Quantity: 60 Refills: 0 Ordered: 23-Jan-2016 Warren Burr Start: 23-Jan-2016 End: 22-Feb-2016 Status: Other Generic Substitution Allowed furosemide 20 mg oral tablet (20 sources) Loop Diuretic Start: 07-04-2021 take 0.5 tablet by mouth once daily Furosemide 20 MG Oral Tablet TAKE 0.5 TABLET Daily Quantity: 45 Refills: 3 Ordered: 22-Jul-2022 DO Start : 04-Jul-2021 Active Start: 07-04-2021 take 1 tablet by mouth once da padmaja Furosemide 40 MG Oral Tablet TAKE 1 TABLET DAILY. Quantity: 0 Refills: 0 Ordered: 04-Jul-2021 DO Start : 04-Jul-2021 Active Start: 06-27-2021 take 40 mg intraveno usly twice daily Furosemide Active 40 MG IV-PUSH BID@0800,1600 June 27, 2021 10:17am Start: 10-17-2018 End: 06-25-2021 Furosemide Discontinued TABL ET October 17, 2018 12:00am June 25, 2021 7:34pm Start: 04-20-2017 End: 06-25-2021 Furosemide Discontinued TABL ET October 17, 2018 12:33pm June 25, 2021 7:34pm take 1 tablet by mouth once tommy y furosemide (LASIX) 20 MG tablet Take 20 mg by mouth daily Take if 3lb weight gain in 72 hours 0 Active glimepiride 1 mg oral tablet (7 sources) Sulfonylurea Start: 08-05-2017 End: 06-25-2021 take 2 mg by mouth twice daily Glimepiride Discontinued 2 MG PO Twice daily August 05, 2017 11:12am June 25, 2021 7:34pm take 1 tablet by mouth twice anyi ly glimepiride (AMARYL) 2 MG tablet Take 2 mg by mouth 2 times daily 0 Active take 2 tablets by mouth twice da padmaja glimepiride 1 mg oral tablet ; 2 tab(s) orally 2 times a day Quantity: 0 Refills: 0 Ordered: 19-Oct-2018 Agnes De La Fuente Status: Discontinued Generic Substitution Allowed glipiZIDE er 2.5 mg 24 hr extended release oral tablet (2 sources) Sulfonylurea Start: 06-07-2018 take 2 tablets by mouth every twenty-four hours in the evening glipiZIDE ER 2.5 MG Oral Tablet Extended Release 24 Hour 1 tablet in am, 2 tablets in pm Quantity: 0 Refills: 0 Ordered: 07-Jun-2018 DO Start : 07-Jun-2018 Active 3 ml insulin aspart, human 100 unt/ml pen injector (2 sources) Insulin Analog Start: 07-22-2022 NovoLOG FlexPe n 100 UNIT/ML Subcutaneous Solution Pen-injector Use as directed for sliding scale coverage up to 4 times daily. Max of 40 units per day. Quantity: 1 Refills: 11 Ordered: 22-Jul-2022 DO Start : 22-Jul-2022 Active Start: 04-02-2020 NovoLOG FlexPe n 100 UNIT/ML Subcutaneous Solution Pen- injector Quantity: 15 Refills: 0 Ordered: 02-Apr-2020 DO Start : 02-Apr-2020 Active 3 ml insulin glargine 100 unt/ml pen injector (12 sources) Insulin Analog Start: 07-04-2021 Lantus SoloSta r 100 UNIT/ML Subcutaneous Solution Pen-injector INJECT 12 UNIT twice a day Quantity: 0 Refills: 0 Ordered: 16-Jul-2021 DO Start : 04-Jul-2021 Active Start: 07-02-2021 inject 12 [IU] by lacey bcutaneous injection once at bedtime insulin glargine 100 units/mL subcutaneous solution ; 12 unit(s) subcutaneous once (at bedtime) Quantity: 0 Refills: 0 Ordered: 02-Jul-2021 Jihan Storm Start: 02-Jul-2021 Generic Substitution Allowed Start: 06-25-2021 inject 20 [IU] by lacey bcutaneous injection once daily Insulin Glargine Active 20 UNIT SUBCUT Daily June 25, 2021 7:32pm 3 ml insulin lispro 100 unt/ml pen injector (14 sources) Insulin Analog Start: 07-04-2021 Insulin Lispro (1 Unit Dial) 100 UNIT/ML Subcutaneous Solution Pen-injector Use as directed for sliding scale coverage up to 4 times per day. Maximum of 48 units daily. Quantity: 4 Refills: 0 Ordered: 04-Jul-2021 DO Start : 04-Jul-2021 Active Start: 07-02-2021 insulin lispro 100 units/mL injectable solution ; Hypoglycemia Protocol 0 unit(s) if Blood glucose is between 0 - 700 unit(s) if Blood Glucose is between 71 - 1504 unit(s) if Blood Glucose is between 151 - 2006 unit(s) if Blood Glucose is between 201 - 2508 unit(s) if Blood Glucose is between 251 - 29474 unit(s) if Blood Glucose is between 301 - 20266 unit(s) if Blood Glucose is between 351 - 400Notify Provider if Blood Glucose is greater than 400 Quantity: 0 Refills: 0 Ordered: 02-Jul-2021 Jihan Storm Start: 02-Jul-2021 Generic Substitution Allowed Start: 06-25-2021 Insulin Lispro (Humalog U-100 Insulin) 100 unit/mL Cartridge Active 0 .ROUTE .COMPLEX June 25, 2021 7:18pm 0-169 = 0 170-209 = 2 210-250 = 4 251-300 = 6 301-350 = [address] Start: 12-24-2020 End: 01-22-2021 insulin lispro 100 units/mL injectable solution ; unit(s) injectable 3 times a day 0 unit(s) if Blood glucose is between 71 - 1502 unit(s) if Blood glucose is between 151 - 2004 unit(s) if Blood glucose is between 201 - 2506 unit(s) if Blood glucose is between 251 - 3008 unit(s) if Blood glucose is between 301 - 25876 unit(s) if Blood glucose is between 351 - 400 Quantity: 3 Refills: 0 Ordered: 24-Dec-2020 Kd Lala Start: 24-Dec-2020 End: 22-Jan-2021 Status: Discontinued Generic Substitution Allowed insulin lispro ( HUMALOG) 100 UNIT/ML injection vial Inject 1 Units into the skin 3 times daily (before meals) Sliding scale 0 Active labetalol hydrochloride 5 mg/ml injectable solution (1 source) beta-Adrenergic Francesco Start: 12-19-2020 End: 12-19-2020 labetalol (NORMODYNE;TRANDATE) injection 10 mg magnesium hydroxide 80 mg/ml oral suspension (1 source) Start: 07-22-2022 take 30 mL by mouth once daily at bedtime as needed for constipation Milk of Magnesia 1200 MG/15ML Oral Suspension GICE 30 mL BY MOUTH NEEDED FOR CONSTIPATION. GIVE DAILY AT BEDTIME IF NO BM X3 DAYS PRN. Quantity: 0 Refills: 0 Ordered: 22-Jul-2022 DO Start : 22-Jul-2022 Active melatonin 1 mg oral tablet (3 sources) Start: 07-22-2022 take 2 tablets by mouth at bedtime Melatonin 1 MG Oral Tablet TAKE 2 TABLET Bedtime PRN Quantity: 0 Refills: 0 Ordered: 22-Jul-2022 DO Start : 22-Jul-2022 Active take 1 tablet by mouth once tommy y melatonin 3 MG TABS tablet Take 3 mg by mouth nightly 0 Active Multivitamins TABS (2 sources) Multivitamins TA BS Quantity: 0 Refills: 0 Ordered: 18-Jul-2015 DO Active omeprazole 10 mg granules for oral suspension (1 source) Proton Pump Inhibitor Start: 6 End: 7 take 2 doses by mouth once daily omeprazole 10 mg oral powder for reconstitution, delayed release ; 2 each by gastrostomy tube once a day Quantity: 2 Refills: 6 Ordered: 21-Jan-2016 Warren Burr Start: 21-Jan-2016 End: 17-Aug-2016 Status: Other Generic Substitution Allowed permethrin 50 mg/ml topical cream (3 sources) Pyrethroid Start: Permethrin 5 % External Cream MASSAGE INTO SKIN FROM HEAD TO SOLES OF FEET. WASH OFF AFTER 8-14 HOURS. TO BE COMPLETED 07/06/21 Quantity: 0 Refills: 0 Ordered: 04-Jul-2021 DO Start : 04-Jul-2021 Active Start: 07-02-2021 permethrin 5% topical cream ; 1 application topically once on 07/06/2021 (at bedtime) - to all body surfaces from the neck down (Chest, arms, trunk) leave on all night and rinse off in the AM Quantity: 0 Refills: 0 Ordered: 03-Jul-2021 Jihan Storm Start: 02-Jul-2021 Generic Substitution Allowed polyethylene glycol 3350 89950 mg powder for oral solution (7 sources) Osmotic Laxative Start: 10-15-2021 MiraLax Mix-I n [place] 17 GM Oral Packet MIX 1 PACKET in 8 ounces of water; use once daily as needed for constipation Quantity: 0 Refills: 0 Ordered: 15-Oct-2021 DO Start : 15-Oct-2021 Active Start: 01-08-2016 take 17 g by mouth once daily polyethylene glycol 3350 oral powder for reconstitution ; 17 gram(s) by gastrostomy tube once a day Quantity: 0 Refills: 0 Ordered: 21-Jan-2016 Warren Burr Start: 08-Jan-2016 Status: Other Generic Substitution Allowed pravastatin sodium 40 mg oral tablet (5 sources) HMG-CoA Reductase Inhibitor Start: 02-02-2017 End: 08-04-2018 take 40 mg by mouth at bedtime Pravastatin Discontinued 40 MG PO Bedtime February 02, 2017 12:34pm August 04, 2018 10:57am 0.25 mg, 0.5 mg dose 1.5 ml semaglutide 1.34 mg/ml pen injector (3 sources) Start: 07-17-2021 End: 07-13-2022 Ozempic (0.25 or 0.5 MG/DOSE) 2 MG/1.5ML SOPN INJECT 1.5 ML Weekly Quantity: 0 Refills: 0 Ordered: 17-Jul-2021 DO Start : 17-Jul-2021 End : 13-Jul-2022 Complete Start: 07-17-2021 Ozempic (0.25 or 0.5 MG/DOSE) 2 MG/1.5ML Subcutaneous Solution Pen-injector INJECT 1.5 ML Weekly Quantity: 0 Refills: 0 Ordered: 17-Jul-2021 DO Start : 17-Jul-2021 Active sertraline 50 mg oral tablet (20 sources) Serotonin Reuptake Inhibitor Start: 12-19-2020 take 2 tablets by mouth once daily Sertraline HCl - 50 MG Oral Tablet TAKE 2 TABLETS DAILY. Quantity: 0 Refills: 0 Ordered: 22-Jul-2022 DO Start : 19-Dec-2020 Active Start: 12-18-2020 sertraline (ZO LOFT) tablet 150 mg Start: 02-02-2017 End: 01-22-2021 take 1 tablet by mouth at bedtime Sertraline HCl - 50 MG Oral Tablet TAKE 1 TABLET Bedtime Quantity: 0 Refills: 0 Ordered: 24-Dec-2020 DO Start : 19-Dec-2020 Active sertraline (ZOLO FT) 100 MG tablet Take 150 mg by mouth daily 0 Active 50 ml sodium chloride 9 mg/ml injection (1 source) Start: 12-17-2020 End: 12-17-2020 0.9 % sodium chloride bolus tacrolimus 1 mg oral capsule (20 sources) Calcineurin Inhibitor Immunosuppressant Start: 07-02-2021 take 3 capsules by mouth once daily tacrolimus 0.5 mg oral capsule ; 3 cap(s) orally - (Every 1 day at ,09:00 ) Quantity: 0 Refills: 0 Ordered: 03-Jul-2021 Jihan Storm Start: 02-Jul-2021 Generic Substitution Allowed Start: 07-02-2021 take 1 capsule by [facility] [place] every twelve hours Tacrolimus 1 MG Oral Capsule TAKE 1 CAPSULE Every twelve hours Quantity: 60 Refills: 0 Ordered: 04-Jul-2021 DO Start : 04-Jul-2021 Active Start: 12-18-2020 tacrolimus (pr oGRAF) capsule 1.5 mg Start: 02-02-2017 End: 01-22-2021 tacrolimus 1 mg oral capsule ; 1 cap(s) orally 2 times a day 6.0 Quantity: 60 Refills: 0 Ordered: 24-Dec-2020 Kd Lala Start: 24-Dec-2020 End: 22-Jan-2021 Status: Discontinued Generic Substitution Allowed Start: 02-02-2017 take 1 tablet by anila th twice daily Tacrolimus Active 1 TAB PO Twice daily February 02, 2017 3:32pm Start: 02-02-2017 End: 01-22-2021 tacrolimus 0.5 mg oral capsu le ; 1 cap(s) orally 2 times a day - (Every 1 day at 06:30, 18:30 ) Quantity: 60 Refills: 0 Ordered: 24-Dec-2020 Kd Lala Start: 24-Dec-2020 End: 22-Jan-2021 Status: Discontinued Generic Substitution Allowed Start: 05-08-2016 take 3 capsules by m outh twice daily Tacrolimus 0.5 MG Oral Capsule TAKE 3 CAPSULE Twice daily Quantity: 180 Refills: 11 Ordered: 31-Dec-2020 Felicia Astorga DO Start : 08-May-2016 Active Total dose of 1.5mg BID Start: 05-08-2016 take 2 capsules by m outh in the morning, then take 3 capsules by mouth in the evening Tacrolimus 0.5 MG Oral Capsule Take 2 capsules in the morning and 3 capsules in the evening. Quantity: 150 Refills: 11 Ordered: 21-Nov-2020 Felicia Astorga DO Start : 08-May-2016 Active Start: 01-08-2016 take 1 capsule by mo uth every twelve hours tacrolimus 1 mg oral capsule ; 1 cap(s) opened and given by gastrostomy tube every 12 hours Quantity: 0 Refills: 0 Ordered: 23-Jan-2016 Warren Burr Start: 08-Jan-2016 Status: Other Generic Substitution Allowed Start: 12-30-2015 take 1 capsule by mo uth once daily in the morning Tacrolimus 0.5 MG Oral Capsule TAKE 1 CAPSULE Every morning Quantity: 30 Refills: 11 Ordered: 04-Jul-2021 Felicia Astorga DO Start : 08-May-2016 Active Total dose of 1.5mg BID Vitamin B Complex (8 sources) Start: 08-04-2018 End: 06-25-2021 take 1 tablet by mouth once daily Vitamin B Complex Discontinued 1 TAB PO Daily August 04, 2018 10:58am June 25, 2021 7:33pm Start: 08-04-2018 take 1 tablet by anila th once daily Vitamin B Complex Active 1 TAB PO Daily August 04, 2018 10:58am Start: 08-04-2018 End: 06-25-2021 take 1 tablet by mouth once daily Vitamin B Complex Discontinued 1 TAB PO Daily August 04, 2018 12:00am June 25, 2021 7:33pm Start: 02-04-2017 End: 08-05-2017 take 1 capsule by mouth once daily Vitamin B Complex Discontinued 1 CAP PO Daily February 04, 2017 12:43pm August 05, 2017 11:11am Start: 02-04-2017 End: 08-05-2017 take 1 capsule by mouth once daily Vitamin B Complex Discontinued 1 CAP PO Daily February 04, 2017 1:00am August 05, 2017 11:11am vitamin e 180 mg oral capsule (8 sources) Start: 02-04-2017 End: 06-25-2021 take 400 [IU] by mouth once daily Vitamin E Discontinued 400 UNIT PO Daily February 04, 2017 12:43pm June 25, 2021 7:33pm take 1 capsule by mouth twice da padmaja vitamin E 400 intl units oral capsule ; 1 cap(s) by gastrostomy tube 2 times a day Quantity: 0 Refills: 0 Ordered: 21-Jan-2016 Warren Burr Status: Other Generic Substitution Allowed Problems Active Problems Problem Classification Problem Date Documented Da te Episodic/Chronic Abdominal pain (15 sources) Acute abdominal pain; Translations: [Abdominal pain, unspecified site] Episodic Acute and unspecified renal failure (7 sources) Acute injury of kidney; Translations: [Acute kidney failure, unspecified] Episodic Acute cerebrovascular disease (15 sources) Cerebral infarction; Translations: [Cerebral artery occlusion, unspecified with cerebral infarction] Chronic Anxiety disorders (1 source) Anxiety; Translations: [Anxiety state, unspecified] Chronic Bacterial infection; unspecified site (4 sources) Bacteremia caused by Gram-positive bacteria; Translations: [Bacteremia] 10-17-2018 Episodic Chronic kidney disease (10 sources) Chronic kidney disease; Translations: [Chronic kidney disease, unspecified] Onset: 3 Chronic Coma; stupor; and brain damage (1 source) [place] coma scale finding; Translations: [[place] coma scale score 13-15, at hospital admission] Episodic Complication of device; implant or graft (15 sources) Disorder of transplanted heart; 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] Episodic Conditions associated with dizziness or vertigo (15 sources) Dizziness; Translations: [Dizziness and giddiness] Episodic Congestive heart failure; nonhypertensive (6 sources) Acute diastolic heart failure; Translations: [Acute diastolic heart failure] Onset: 3 06-30-2021 Chronic Congestive heart failure; nonhypertensive (1 source) Congestive heart failure; nonhypertensive 07-03-2021 Diabetes mellitus with complications (2 sources) Type 2 diabetes mellitus with other circulatory complications; Translations: [Type 2 diabetes mellitus with hyperglycemia] Onset: 2 Chronic Diabetes mellitus without complication (20 sources) Type 2 diabetes mellitus; Translations: [Diabetes mellitus without mention of complication, type II or unspecified type, not stated as uncontrolled] 08-05-2017 Chronic Diabetes mellitus without complication (10 sources) Hyperglycemia; Translations: [Other abnormal glucose] 07-02-2021 Episodic Diabetes mellitus without complication (1 source) Diabetes mellitus without complication 07-02-2021 Diseases of white blood cells (4 sources) Leukocytosis; Translations: [Elevated white blood cell count, unspecified] 10-17-2018 Chronic Disorders of lipid metabolism (20 sources) Hyperlipidemia; Translations: [Other and unspecified hyperlipidemia] Onset: 3 Chronic Essential hypertension (19 sources) Hypertensive disorder; Translations: [Unspecified essential hypertension] 02-04-2017 Chronic Comment on above: Added by Problem Lis t Migration; 2012-10-14; Moved to [facility] Feb 17 2013 9:03PM; Fever of unknown origin (15 sources) Fever; Translations: [Fever, unspecified] Episodic Fluid and electrolyte disorders (4 sources) Lactic acidosis; Translations: [Acidosis] 10-16-2018 Episodic Genitourinary symptoms and ill-defined conditions (4 sources) Isolated proteinuria; Translations: [Isolated proteinuria] 10-16-2018 Episodic Gout and other crystal arthropathies (15 sources) Gout; Translations: [Gout, unspecified] Chronic Immunity disorders (11 sources) Immunosuppression; 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 Late effects of cerebrovascular disease (20 sources) 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; Translations: [Late effects of cerebrovascular disease, hemiplegia affecting dominant side] Onset: 05-1702-04-2017 Chronic Mood disorders (15 sources) Depressive disorder; Translations: [Depressive disorder, not elsewhere classified] Chronic Neoplasms of unspecified nature or uncertain behavior (4 sources) Neoplasm of parotid gland; 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] 02-04-2017 Episodic Non-Hodgkin`s lymphoma (19 sources) Burkitt's lymphoma (clinical); Translations: [Burkitt's tumor or lymphoma, unspecified site, extranodal and solid organ sites] 02-04-2017 Chronic Occlusion or stenosis of precerebral arteries (15 sources) Carotid artery occlusion; Translations: [Occlusion and stenosis of carotid artery without mention of cerebral infarction] Chronic Comment on above: Added by Problem Lis t Migration; 2012-10-14; Moved to [place] Feb 17 2013 9:03PM; Osteoporosis (15 sources) Osteoporosis; Translations: [Osteoporosis, unspecified] Chronic Other aftercare (15 sources) Long-term current use of immunosuppressive drug; Translations: [Long-term (current) use of other medications] Episodic Other aftercare (1 source) Long-term current use of insulin; Translations: [Long-term (current) use of insulin] 07-02-2021 Episodic Other circulatory disease (15 sources) Subclavian artery stenosis; 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 Other circulatory disease (6 sources) Heart transplant status; Translations: [Heart replaced by transplant] Onset: Chronic Other connective tissue disease (15 sources) Spasm; Translations: [Spasm of muscle] Episodic Other gastrointestinal disorders (15 sources) Gastrostomy present; 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 Other infections; including parasitic (1 source) Comfort alteration; Translations: [Scabies] 06-28-2021 Episodic Other infections; including parasitic (9 sources) Scabies; Translations: [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 scabiei damien hominis] 07-03-2021 Episodic Other lower respiratory disease (3 sources) Dyspnea; Translations: [Shortness of breath] 06-26-2021 Episodic Other lower respiratory disease (2 sources) Shortness of breath; Translations: [Shortness of breath] Episodic Other screening for suspected conditions (not mental disorders or infectious disease) (8 sources) Patient encounter status; Translations: [Screening for malignant neoplasms of prostate] Episodic Other skin disorders (1 source) Eruption; Translations: [Rash and other nonspecific skin eruption] 06-27-2021 Episodic Parkinson`s disease (14 sources) Parkinson's disease; Translations: [Paralysis agitans] Onset: 3 Chronic Peripheral and visceral atherosclerosis (15 sources) Peripheral vascular disease; Translations: [Peripheral vascular disease, unspecified] Chronic Residual codes; unclassified (15 sources) Pain; Translations: [Generalized pain] Episodic Residual codes; unclassified (10 sources) Swelling - edema - symptom; Translations: [Edema] 06-27-2021 Episodic Residual codes; unclassified (1 source) Confusional state; Translations: [Disorientation, unspecified] Episodic Residual codes; unclassified (3 sources) Bilateral lower limb edema; Translations: [Localized edema] 06-25-2021 Episodic Residual codes; unclassified (2 sources) Localized edema; Translations: [Edema] Episodic Residual codes; unclassified (9 sources) Edema; Translations: [Edema, unspecified] 06-26-2021 Episodic Residual codes; unclassified (1 source) Edema of right upper arm; Translations: [Edema] 06-30-2021 Episodic Residual codes; unclassified (1 source) Edema of right upper limb; Translations: [Edema] 06-30-2021 Episodic Septicemia (except in labor) (4 sources) Sepsis; Translations: [Sepsis, unspecified organism] 10-16-2018 Episodic Skin and subcutaneous tissue infections (2 sources) Impetigo, unspecified; Translations: [Impetigo, unspecified] Onset: 3 Episodic Suicide and intentional self-inflicted injury (4 sources) Suicidal thoughts; Translations: [Suicidal ideations] 12-13-2020 Episodic Thyroid disorders (19 sources) Hypothyroidism; Translations: [Unspecified acquired hypothyroidism] Onset: 3 Chronic Transient cerebral ischemia (15 sources) Subclavian steal syndrome; 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 (2 sources) SWELLING UPPER/LOW EXTREMITIES - ICD-10 LOCALIZED SWELLING, MASS AND LUMP, UNSPECIFIED 06-27-2021 Comment on above: SWELLING UPPER/LOW E XTREMITIES - ICD-10 LOCALIZED SWELLING, MASS AND LUMP, UNSPECIFIED 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 (1 source) POST HRT TXP/HOSPITALIZATION VIRTUAL PHONE FUV 07-03-2021 Comment on above: POST HRT TXP/HOSPITA LIZATION VIRTUAL PHONE FUV 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 (1 source) Rash of body 06-27-2021 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 (1 source) 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 scabiei 06-28-2021 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 (1 source) Edema of right upper arm 06-30-2021 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 (1 source) Edema of right upper extremity 06-30-2021 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 (1 source) [facility] current use of insulin 07-02-2021 Past or Other Problems Problem Classification Problem Date Documented Da te Episodic/Chronic Other gastrointestinal disorders (1 source) Dysphagia, unspecified; Translations: [DYSPHAGIA UNSPECIFIED] Onset: 08-08-2021 Episodic 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 (1 source) SWELLING UPPER/LOW EXTREMITIES 06-27-2021 Comment on above: SWELLING UPPER/LOW E XTREMITIES Results Test Name Value Interpretation Reference Range Facility [facility] 09-14-2022 Lab Reports [id number]:[id number] Normal [facility] VIT D 25-OH [facility]on 2022 Vitamin D, 25-Hydroxy 29.5 ng/mL Critically low 30.0-100.0 [facility] Comment on above: Result Comment: Jennifer min D deficiency has been defined by the [place] [employer] and an Endocrine Society practice guideline as a level of serum 25-OH vitamin D less than 20 ng/mL (1,2). The Endocrine Society went on to further define vitamin D insufficiency as a level between 21 and 29 ng/mL (2). 1. IOM ([place] [employer]). 2010. Dietary reference intakes for calcium and D. [place]: The National Academies Press. 2. Ely MF, Brad NC, Kristy ORTEGA, et al. Evaluation, treatment, and prevention of vitamin D deficiency: an Endocrine Society clinical practice guideline. JCEM. 2010; 96(7):1911-30. Performed By: #### V ITADLC #### [facility] [address] [place] [address] Dr. Ronnie Pennington CBC AUTO DIFFon 07-24-2022 BASO # 0.0 103/ul Normal 0.0-0.1 [facility] Comment on above: Performed By: #### C BC #### [facility] [address] [address] [address] Ronnie Pennington Basophils/100 WBC (Bld) 0.6 % Normal 0.2-2.0 [facility] Comment on above: Performed By: #### C BC #### [facility] [address] [address] [address] Ronnie Pennington EO # 0.1 103/ul Normal 0.0-0.7 [facility] Comment on above: Performed By: #### C BC #### [facility] [address] [address] [address] Ronnie Pennington Eosinophils/100 WBC (Bld) 2.0 % Normal 0.9-7.0 [facility] Comment on above: Performed By: #### C BC #### [facility] [address] [place] [address] Dr. Ronnie Pennington Erythrocyte distribution width (RBC) [Ratio] 13.2 % Normal 11.0-15.0 [facility] Comment on above: Performed By: #### C BC #### [facility] [address] [place] [address] Dr. Ronnie Pennington Hematocrit (Bld) [Volume fraction] 33.3 % Critically low 42.0-54.0 [facility] Comment on above: Performed By: #### C BC #### [facility] [address] [place] [address] Dr. Ronnie Pennington Hemoglobin (Bld) [Mass/Vol] 10.0 g/dL Critically low 14.0-18.0 [facility] Comment on above: Performed By: #### C BC #### [facility] [address] [place] [address] Dr. Ronnie Pennington IG # 0.04 10e3/ul Critically high 0.00-0.03 [facility] Comment on above: Performed By: #### C BC #### [facility] [address] [place] [address] Dr. Ronnie Pennington IG % 0.6 % Critically high 0.0-0.5 [facility] Comment on above: Performed By: #### C BC #### [facility] [address] [place] [address] Dr. Ronnie Pennington LYMPH # 1.2 103/ul Normal 1.2-3.8 [facility] Comment on above: Performed By: #### C BC #### [facility] [address] [place] [address] Dr. Ronnie Pennington Lymphocytes/100 WBC (Bld) 17.9 % Critically low 20.5-60.0 [facility] Comment on above: Performed By: #### C BC #### [facility] [address] [place] [address] Dr. Ronnie Pennington MANUAL DIFF REQ NO Normal [facility] Comment on above: Performed By: #### C BC #### [facility] [address] [place] [address] Dr. Ronnie Pennington MCH (RBC) [Entitic mass] 28.2 pg Normal 25.9-34.0 [facility] Comment on above: Performed By: #### C BC #### [facility] [address] [place] [address] Dr. Ronnie Pennington MCHC (RBC) [Mass/Vol] 30.0 g/dL Normal 29.9-35.2 [facility] Comment on above: Performed By: #### C BC #### [facility] [address] [place] [address] Dr. Ronnie Pennington MCV (RBC) [Entitic vol] 94.1 fL Critically high 80.0-94 .0 [facility] Comment on above: Performed By: #### C BC #### [facility] [address] [place] [address] Dr. Ronnie Pennington MONO # 0.4 103/ul Normal 0.3-0.8 [facility] Comment on above: Performed By: #### C BC #### [facility] [address] [place] [address] Dr. Ronnie Pennington Monocytes/100 WBC (Bld) 6.5 % Normal 1.7-12.0 [facility] Comment on above: Performed By: #### C BC #### [facility] [address] [address] [address] Ronnie Pennington NEUT # 4.8 103/ul Normal 1.4-6.5 [facility] Comment on above: Performed By: #### C BC #### [facility] [address] [place] [address] Dr. Ronnie Pennington Neutrophils/100 WBC (Bld) 72.4 % Normal 43.0-75.0 [facility] Comment on above: Performed By: #### C BC #### [facility] [address] [place] [address] Dr. Ronnie Pennington Platelet mean volume (Bld) [Entitic vol] 11.7 fL Normal 9.5-13.5 [facility] Comment on above: Performed By: #### C BC #### [facility] [address] [place] [address] Dr. Ronnie Pennington PLT 137 103/ul Critically low 150-[address] [facility] Comment on above: Performed By: #### C BC #### [facility] [address] [place] [address] Dr. Ronnie Pennington RBC 3.54 106/ul Critically low 4.70-6.[address] [facility] Comment on above: Performed By: #### C BC #### [facility] [address] [place] [address] Dr. Ronnie Pennington WBC 6.6 103/ul Normal 4.0-11.0 [facility] Comment on above: Performed By: #### C BC #### [facility] [address] [place] [address] Dr. Ronnie Pennington GLYCOHEMOGLOBIN A1Con 2022 ADA RECOMMENDATION SEE BELOW Normal [facility] Comment on above: Result Comment: ADA RECOMMENDED LIMIT 4.0 - 6.0 ADA THERAPEUTIC TARGET < 7.0 ACTION SUGGESTED > 7.0 Performed By: #### A 1C #### [facility] [address] [place] [address] Dr. Ronnie Pennington Glucose [Mass/Vol] 171 mg/dL Normal [facility] Comment on above: Performed By: #### A 1C #### [facility] [address] [address] [address] Ronnie Pennington HbA1c (Bld) [Mass fraction] 7.6 % Critically high 4.5-6.2 [facility] Comment on above: Performed By: #### A 1C #### [facility] [address] [address] [address] Ronnie Pennington MAGNESIUMon 07-24-2022 Magnesium [Mass/Vol] 2.3 mg/dL Normal 1.8-2.4 [facility] Comment on above: Performed By: #### M Mere, TSH, CMP ####[facility] [address] [address]Dr. Ronnie Pennington PROF 14(COMP METB)on 023 Albumin [Mass/Vol] 2.8 g/dL Critically low 3.4-5.0 [facility] Comment on above: Performed By: #### Joaquin Severino TSH, CMP ####[facility] [address] [address]DrFreddy Pennington Albumin/Globulin [Mass ratio] 0.7 {ratio} Normal [facility] Comment on above: Performed By: #### Joaquin Severino TSH, CMP ####[facility] [address] [address]DrFreddy Pennington ALP [Catalytic activity/Vol] 69 U/L Normal 46-116 [facility] Comment on above: Performed By: #### M Mere TSH, CMP ####[facility] [address] [address]DrFreddy Pennington ALT [Catalytic activity/Vol] 8 U/L Critically low 16-63 [facility] Comment on above: Performed By: #### Joaquin Severino TSH, CMP ####[facility] [address] [address]DrFreddy Pennington Anion gap [Moles/Vol] 9.9 mmol/L Normal [facility] Comment on above: Performed By: #### M G TSH, CMP ####[facility] [address] [address]DrFreddy Pennington AST [Catalytic activity/Vol] 9 U/L Critically low 15-[address] [facility] Comment on above: Performed By: #### M Mere TSH, CMP ####[facility] [address] [place], [place] [address]Dr. Ronnie Pennington Bilirubin [Mass/Vol] 0.2 mg/dL Normal 0.2-1.[address] [facility] Comment on above: Performed By: #### Joaquin Severino TSH, CMP ####[facility] [address] [place], [place] [address]Dr. Ronnie Pennington Calcium [Mass/Vol] 8.9 mg/dL Normal 8.5-10.[address] [facility] Comment on above: Performed By: #### Joaquin Severino TSH, CMP ####[facility] [address] [place], [place] [address]Dr. Ronnie Pennington Chloride [Moles/Vol] 104 mmol/L Normal 98-[address] [facility] Comment on above: Performed By: #### Joaquin Severino TSH, CMP ####[facility] [address] [place], [place] [address]Dr. Ronnie Pennington CO2 [Moles/Vol] 28.4 mmol/L Normal 21.0-32.[address] [facility] Comment on above: Performed By: #### Joaquin Severino TSH, CMP ####[facility] [address] [place], [place] [address]Dr. Ronnie Pennington Creatinine [Mass/Vol] 2.09 mg/dL Critically high 0.70-1.[address] [facility] Comment on above: Performed By: #### Joaquin Severino, TSH, CMP ####[facility] [address] [place], [place] [address]Dr. Salomelenny Pennington EGFR-AF MONTSERRATIAN 37 mL/min/1.73m2 Critically low >=[address] [facility] Comment on above: Performed By: #### Joaquin Severino, TSH, CMP ####[facility] [address] [place], [place] [address]Dr. Ronnie Pennington EGFR-NON AF MONTSERRATIAN 31 mL/min/1.73m2 Critically low >=[address] [facility] Comment on above: Performed By: #### M G, TSH, CMP ####[facility] [address] [address]Dr. Ronnie Pennington Globulin (S) [Mass/Vol] 3.9 g/dL Normal [facility] Comment on above: Performed By: #### M G, TSH, CMP ####[facility] [address] [address]Dr. Ronnie Pennington Glucose [Mass/Vol] 165 mg/dL Critically high 74-106 [facility] Comment on above: Performed By: #### M G, TSH, CMP ####[facility] [address] [place], [place] [address]Dr. Ronnie Pennington Potassium [Moles/Vol] 4.3 mmol/L Normal 3.5-5.1 [facility] Comment on above: Performed By: #### M G, TSH, CMP ####[facility] [address] [place], [place] [address]Dr. Ronnie Pennington Protein [Mass/Vol] 6.7 g/dL Normal 6.4-8.2 [facility] Comment on above: Performed By: #### M G, TSH, CMP ####[facility] [address] [place], [place] [address]Dr. Ronnie Pennington Sodium [Moles/Vol] 138 mmol/L Normal 136-145 [facility] Comment on above: Performed By: #### M G, TSH, CMP ####[facility] [address] [place], [place] [address]Dr. Ronnie Pennington Urea nitrogen [Mass/Vol] 33.0 mg/dL Critically high 7.0-18.0 [facility] Comment on above: Performed By: #### M G, TSH, CMP ####[facility] [address] [place], [place] [address]Dr. Ronnie Pennington Urea nitrogen/Creatinine [Mass ratio] 15.8 mg/mg Normal [facility] Comment on above: Performed By: #### M G, TSH, CMP ####[facility] [address] [place], [place] [address]Dr. Ronnie Pennington TSHon 07-24-2022 TSH 2.763 uIU/mL Normal 0.358-3.74 0 [facility] Comment on above: Performed By: #### M G, TSH, CMP ####[facility] [address] [address]Dr. Ronnie Pennington FK506 (TACROLIMUS) WHOLE BLO ODon 07-15-2022 Tacrolimus (FK506), Blood 9.4 ng/mL Normal 2.0-20.0 [facility] Comment on above: Result Comment: Trou gh (immediately following transplant) 15.0 . Trough (steady state, 2 weeks or more after transplant): 3.0 - 8.0 . Performed by LC-MS/MS technology. Performed By: #### F K506T #### [facility] [address] [place] [address] Dr. Ronnie Pennington CBC AUTO DIFFon 07-13-2022 BASO # 0.0 103/ul Normal 0.0-0.1 [facility] Comment on above: Performed By: #### C BC #### [facility] [address] [place] [address] Dr. Ronnie Pennington Basophils/100 WBC (Bld) 0.3 % Normal 0.2-2.0 [facility] Comment on above: Performed By: #### C BC #### [facility] [address] [place] [address] Dr. Ronnie Pennington EO # 0.2 103/ul Normal 0.0-0.7 [facility] Comment on above: Performed By: #### C BC #### [facility] [address] [place] [address] Dr. Ronnie Pennington Eosinophils/100 WBC (Bld) 2.5 % Normal 0.9-7.0 [facility] Comment on above: Performed By: #### C BC #### [facility] [address] [place] [address] Dr. Ronnie Pennington Erythrocyte distribution width (RBC) [Ratio] 13.1 % Normal 11.0-15.0 [facility] Comment on above: Performed By: #### C BC #### [facility] [address] [place] [address] Dr. Ronnie Pennington Hematocrit (Bld) [Volume fraction] 33.4 % Critically low 42.0-54.0 [facility] Comment on above: Performed By: #### C BC #### [facility] [address] [place] [address] Dr. Ronnie Pennington Hemoglobin (Bld) [Mass/Vol] 10.4 g/dL Critically low 14.0-18.0 [facility] Comment on above: Performed By: #### C BC #### [facility] [address] [place] [address] Dr. Ronnie Pennington IG # 0.04 10e3/ul Critically high 0.00-0.03 [facility] Comment on above: Performed By: #### C BC #### [facility] [address] [place] [address] Dr. Ronnie Pennington IG % 0.6 % Critically high 0.0-0.5 [facility] Comment on above: Performed By: #### C BC #### [facility] [address] [place] [address] Dr. Ronnie Pennington LYMPH # 1.2 103/ul Normal 1.2-3.8 [facility] Comment on above: Performed By: #### C BC #### [facility] [address] [place] [address] Dr. Ronnie Pennington Lymphocytes/100 WBC (Bld) 16.8 % Critically low 20.5-60.0 [facility] Comment on above: Performed By: #### C BC #### [facility] [address] [place] [address] Dr. Ronnie Pennington MANUAL DIFF REQ NO Normal [facility] Comment on above: Performed By: #### C BC #### [facility] [address] [place] [address] Dr. Ronnie Pennington MCH (RBC) [Entitic mass] 28.5 pg Normal 25.9-34.0 [facility] Comment on above: Performed By: #### C BC #### [facility] [address] [place] [address] Dr. Ronnie Pennington MCHC (RBC) [Mass/Vol] 31.1 g/dL Normal 29.9-35.2 [facility] Comment on above: Performed By: #### C BC #### [facility] [address] [place] [address] Dr. Ronnie Pennington MCV (RBC) [Entitic vol] 91.5 fL Normal 80.0-94.0 [facility] Comment on above: Performed By: #### C BC #### [facility] [address] [place] [address] Dr. Ronnie Pennington MONO # 0.5 103/ul Normal 0.3-0.8 [facility] Comment on above: Performed By: #### C BC #### [facility] [address] [place] [address] Dr. Ronnie Pennington Monocytes/100 WBC (Bld) 7.5 % Normal 1.7-12.0 [facility] Comment on above: Performed By: #### C BC #### [facility] [address] [place] [address] Dr. Ronnie Pennington NEUT # 5.0 103/ul Normal 1.4-6.5 [facility] Comment on above: Performed By: #### C BC #### [facility] [address] [place] [address] Dr. Ronnie Pennington Neutrophils/100 WBC (Bld) 72.3 % Normal 43.0-75.0 [facility] Comment on above: Performed By: #### C BC #### [facility] [address] [place] [address] Dr. Ronnie Pennington Platelet mean volume (Bld) [Entitic vol] 11.8 fL Normal 9.5-13.5 [facility] Comment on above: Performed By: #### C BC #### [facility] [address] [place] [address] Dr. Ronnie Pennington PLT 126 103/ul Critically low 150-[address] [facility] Comment on above: Performed By: #### C BC #### [facility] [address] [place] [address] Dr. Ronnie Pennington RBC 3.65 106/ul Critically low 4.70-6.[address] [facility] Comment on above: Performed By: #### C BC #### [facility] [address] [address] [address] Ronnie Pennington WBC 6.9 103/ul Normal 4.0-11.0 [facility] Comment on above: Performed By: #### C BC #### [facility] [address] [address] [address] Ronnie Pennington MAGNESIUMon 07-13-2022 Magnesium [Mass/Vol] 2.1 mg/dL Normal 1.8-2.4 [facility] Comment on above: Performed By: #### C MP, MG #### [facility] [address] [place] [address] Dr. Ronnie Pennington Office Visit (Cardiology)on 07-13-2022 Follow-up visit Patient Instructions -Please bring a list of your medications to every appointment. -We will schedule you a follow up appointment in # months. We will call you with this date. -If you have any questions, please do not hesitate to contact our office at [phone]. For after hours issues, please call [phone]. Chief Complaint OLIVERIO ESCOBEDO is being seen for an annual follow-up of heart transplant. A telephone visit (audio only) between the patient (at the originating site) and the provider (at the distant site) was utilized to provide this telehealth service. Verbal consent was requested and obtained from OLIVERIO ESCOBEDO on this date, 07/13/2022 01:40 PM , for a telehealth visit. Adult Risk ScreeningThere are no spiritual/cultural practices/values/needs that are important to know Initial Fall Risk Screening: OLIVERIO has not fallen in the last 6 months. History of Present Illness Mr. 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 Interval Hx: He has had no hospitalization in the interim since last visit in September 2021. He continues to live in senior care. He has started Zoloft for depression. 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 Needs assistance with transfers. He has not had any new doctors appointmetns. Immunosuppression: MMF 250 mg BID, tacrolimus 1 mg BID (FK 11.0 on 10/10/21, goal 5-8) Rejection Hx/DSAs: None documented Last echo: 12/20/20 *Active Problems Problems Acute abdominal pain (789.00,338.19) (R10.9) Burkitt's lymphoma (200.20) (C83.70) Carotid artery occlusion (433.10) (I65.29) Added by Problem List Migration; 2012-10-14; Moved to Suppressed Feb 17 2013 9:03PM Cerebral infarction (434.91) (I63.9) CKD (chronic kidney disease) (585.9) (N18.9) Depression (311) (F32.A) Diabetes mellitus, type 2 (250.00) (E11.9) Dizziness (780.4) (R42) Edema (782.3) (R60.9) Encounter for prostate cancer screening (V76.44) (Z12.5) Fever (780.60) (R50.9) Gout (274.9) (M10.9) Heart transplant complication (996.83) (T86.20) Hemiplegia of dominant side, 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) High triglycerides (272.1) (E78.1) Hyperglycemia (790.29) (R73.9) Hyperlipemia (272.4) (E78.5) Hypertension (401.9) (I10) Added by Problem List Migration; 2012-10-14; Moved to Suppressed Feb 17 2013 9:03PM Hypothyroid (244.9) (E03.9) Immunosuppression (279.9) (D84.9) Long-term use of immunosuppressant medication (V58.69) (Z79.60) Muscle spasm (728.85) (M62.838) Osteoporosis (733.00) (M81.0) Pain (780.96) (R52) PEG (percutaneous endoscopic gastrostomy) status (V44.1) (Z93.1) Peripheral vascular disease (443.9) (I73.9) Primary Parkinson's disease (332.0) (G20) Scabies (133.0) (B86) Subclavian arterial stenosis (447.1) (I77.1) Subclavian steal syndrome (435.2) (G45.8) Heart transplanted (V42.1) (Z94.1) Surgical History Problems History of Transplantation Of Heart 2000 Current Meds Medication NameInstruction Acetaminophen 325 MG Oral TabletTAKE 1 TO 2 TABLETS EVERY 6 HOURS NEEDED. Alendronate Sodium 35 MG Oral TabletTAKE 1 TABLET ONCE WEEKLY. Atorvastatin Calcium 80 MG Oral TabletTAKE 1 TABLET BY MOUTH EVERY DAY BD Pen Needle Mini U/F 31G X 5 MM Benadryl Allergy 25 MG Oral TabletTAKE 1 TABLET EVERY 6 HOURS NEEDED. busPIRone HCl - 10 MG Oral TabletTAKE 2 TABLET Daily Calcium 500+D 500-200 MG-UNIT TABSTake 1 tablet twice daily Carbidopa-Levodopa 25-100 MG Oral TabletTAKE 0.5 TABLET 3 TIMES DAILY cloNIDine HCl - 0.2 MG Oral TabletTAKE 1 TABLET TWICE DAILY. Clopidogrel Bisulfate 75 MG Oral TabletTAKE 1 TABLET DAILY. Colace 100 MG Oral CapsuleTAKE 1 CAPSULE TWICE DAILY NEEDED. dilTIAZem HCl ER Coated Beads 300 MG Oral Capsule Extended Release 24 Hourtake 1 capsule every evening Fish Oil 1000 MG Oral CapsuleTAKE 1 CAPSULE Every twelve hours FreeStyle Lancets Furosemide 40 MG Oral TabletTAKE 1 TABLET DAILY. hydrALAZINE HCl - 100 MG Oral TabletTAKE 1 TABLET 3 TIMES DAILY. Insulin Lispro (1 Unit Dial) 100 UNIT/ML Subcutaneous Solution Pen-injectorUse as directed for sliding scale coverage up to 4 times per day. Maximum of 48 units daily. Lantus SoloStar 100 UNIT/ML Subcutaneous Solution Pen-injectorINJECT 12 UNIT twice a day Levothyroxine Sodium 75 MCG Oral TabletTAKE 1 TABLET DAILY DIRECTED. Magnesium Oxide 400 MG Oral TabletTake 1 tablet twice daily MiraLax Mix-In [place] 17 GM Oral PacketMIX 1 PACKET in 8 ounces of water; use once daily as needed for constipation Mycophenolate Mofetil 250 MG Oral CapsuleTAKE 1 CAPSULE Every twelve hours Pantoprazole Sodium 40 MG Oral Tablet Delayed ReleaseTAKE 1 TABLET BY MOUTH EVERY DAY Precision Xtra Blood Glucose In Vitro Strip Sertraline HCl - 50 MG Oral TabletTAKE 1 TABLET Bedtime (more content not included)... Normal [facility] PROF 14(COMP METB)on 023 Albumin [Mass/Vol] 2.9 g/dL Critically low 3.4-5.0 [facility] Comment on above: Performed By: #### C MP, MG #### [facility] [address] [place] [address] Dr. Ronnie Pennington Albumin/Globulin [Mass ratio] 0.7 {ratio} Normal [facility] Comment on above: Performed By: #### C MP, MG #### [facility] [address] [address] [address] Ronnie Pennington ALP [Catalytic activity/Vol] 71 U/L Normal 46-116 [facility] Comment on above: Performed By: #### C MP, MG #### [facility] [address] [place] [address] Dr. Ronnie Pennington ALT [Catalytic activity/Vol] 12 U/L Critically low 16-63 [facility] Comment on above: Performed By: #### C MP, MG #### [facility] [address] [address] [address] Ronnie Pennington Anion gap [Moles/Vol] 15.1 mmol/L Normal [facility] Comment on above: Performed By: #### C MP, MG #### [facility] [address] [place] [address] Dr. Ronnie Pennington AST [Catalytic activity/Vol] 11 U/L Critically low 15-37 [facility] Comment on above: Performed By: #### C MP, MG #### [facility] [address] [place] [address] Dr. Ronnie Pennington Bilirubin [Mass/Vol] 0.2 mg/dL Normal 0.2-1.0 [facility] Comment on above: Performed By: #### C MP, MG #### [facility] [address] [place] [address] Dr. Ronnie Pennington Calcium [Mass/Vol] 9.2 mg/dL Normal 8.5-10.1 [facility] Comment on above: Performed By: #### C MP, MG #### [facility] [address] [place] [address] Dr. Ronnie Pennington Chloride [Moles/Vol] 105 mmol/L Normal 98-107 [facility] Comment on above: Performed By: #### C MP, MG #### [facility] [address] [place] [address] Dr. Ronnie Pennington CO2 [Moles/Vol] 28.1 mmol/L Normal 21.0-32.0 [facility] Comment on above: Performed By: #### C MP, MG #### [facility] [address] [place] [address] Dr. Ronnie Pennington Creatinine [Mass/Vol] 2.14 mg/dL Critically high 0.70-1.30 [facility] Comment on above: Performed By: #### C MP, MG #### [facility] [address] [place] [address] Dr. Ronnie Pennington EGFR-AF MONTSERRATIAN 36 mL/min/1.73m2 Critically low >=60 [facility] Comment on above: Performed By: #### C MP, MG #### [facility] [address] [place] [address] Dr. Ronnie Pennington EGFR-NON AF MONTSERRATIAN 30 mL/min/1.73m2 Critically low >=60 [facility] Comment on above: Performed By: #### C MP, MG #### [facility] [address] [place] [address] Dr. Ronnie Pennington Globulin (S) [Mass/Vol] 4.0 g/dL Normal [facility] Comment on above: Performed By: #### C MP, MG #### [facility] [address] [place] [address] Dr. Ronnie Pennington Glucose [Mass/Vol] 150 mg/dL Critically high 74-106 [facility] Comment on above: Performed By: #### C MP, MG #### [facility] [address] [place] [address] Dr. Ronnie Pennington Potassium [Moles/Vol] 4.2 mmol/L Normal 3.5-5.1 [facility] Comment on above: Performed By: #### C MP, MG #### [facility] [address] [address] [address] Ronnie Pennington Protein [Mass/Vol] 6.9 g/dL Normal 6.4-8.2 [facility] Comment on above: Performed By: #### C MP, MG #### [facility] [address] [address] [address] Ronnie Pennington Sodium [Moles/Vol] 144 mmol/L Normal 136-145 [facility] Comment on above: Performed By: #### C MP, MG #### [facility] [address] [address] [address] Ronnie Pennington Urea nitrogen [Mass/Vol] 32.0 mg/dL Critically high 7.0-18.0 [facility] Comment on above: Performed By: #### C MP, MG #### [facility] [address] [address] [address] Ronnie Pennington Urea nitrogen/Creatinine [Mass ratio] 15.0 mg/mg Normal [facility] Comment on above: Performed By: #### C MP, MG #### [facility] [address] [address] [address] Ronnie Pennington Transplant SW Assessment Upd ateon 07-13-2022 Transplant SW Assessment Update Note Body SW met with pt during virtual appt, present with nurse coordinator and doctor and nurse and pt at pt bedside. Pt team confirmed an anti depression medication in the past 6 weeks. Pt appeared stable in mood. Pt and team confirmed all information remains the same including insurance and support. Team confirmed pt started taking an anti depressant about 6 weeks ago with success with his symptoms. Team confirmed scabies diagnosis is under control. Team confirmed pt is able to stand but does need assistance with transfer to chair from bed and to bathroom. SW confirmed with team and pt that no other concerns or questions at this time. SW to follow up in a year or sooner if needed. 'Scores and Scales' Signatures Electronically signed by : NURA Rivero; Jul 15 2022 12:57PM EST (Author) Normal [employer] Consultation Noteon 06-10-19 Consultation Note [id number] Normal [facility] TSHon 06-05-2022 TSH 3.293 uIU/mL Normal 0.358-3.74 0 [facility] Comment on above: Performed By: #### T SH #### [facility] [address] [address] [address] Ronnie Pennington Cult,Woundon 04-19-2022 Cult,Wound Specimen Description .ARM LEFT SWAB Direct Exam FEW NEUTROPHILS MODERATE GRAM POSITIVE COCCI IN PAIRS RARE GRAM POSITIVE RODS Culture STAPHYLOCOCCUS AUREUS HEAVY GROWTH This isolate is methicillin susceptible. Report Status FINAL 04/18/2022 SUSCEPTIBILITY Organism SAUR MSSA Method GRETCHEN Clindamycin <=0.25 SUSCEPTIBLE Erythromycin <=0.25 SUSCEPTIBLE Gentamicin <=0.5 SUSCEPTIBLE Gentamicin is used only in combination with other active agents that test susceptible. Levofloxacin 0.25 SUSCEPTIBLE Oxacillin 0.5 SUSCEPTIBLE This staph isolate may be susceptible to Penicillin. Please contact Microbiology for confirmatory testing of susceptibility if Pencillin is a therapeutic consideration. Tetracycline <=1 SUSCEPTIBLE Trimethoprim/Sulfa <=10 SUSCEPTIBLE Susceptible [facility] Comment on above: Performed By: #### W DC #### [address] [place] [address] Corporate Travel Agent: David Gonzalez MD PROF CHEM 8 ([facility])on Anion gap [Moles/Vol] 14.9 mmol/L Normal [facility] Comment on above: Performed By: #### B MP #### [facility] [address] [place] [address] Dr. Ronnie Pennington Calcium [Mass/Vol] 8.8 mg/dL Normal 8.5-10.1 [facility] Comment on above: Performed By: #### B MP #### [facility] [address] [place] [address] Dr. Ronnie Pennington Chloride [Moles/Vol] 104 mmol/L Normal 98-107 [facility] Comment on above: Performed By: #### B MP #### [facility] [address] [place] [address] Dr. Ronnie Pennington CO2 [Moles/Vol] 26.6 mmol/L Normal 21.0-32.0 [facility] Comment on above: Performed By: #### B MP #### [facility] [address] [address] [address] Ronnie Pennington Creatinine [Mass/Vol] 2.03 mg/dL Critically high 0.70-1.30 [facility] Comment on above: Performed By: #### B MP #### [facility] [address] [address] [address] Ronnie Pennington EGFR-AF MONTSERRATIAN 39 mL/min/1.73m2 Critically low >=60 [facility] Comment on above: Performed By: #### B MP #### [facility] [address] [address] [address] Ronnie Pennington EGFR-NON AF MONTSERRATIAN 32 mL/min/1.73m2 Critically low >=60 [facility] Comment on above: Performed By: #### B MP #### [facility] [address] [address] [address] Ronnie Pennington Glucose [Mass/Vol] 209 mg/dL Critically high 74-106 T [facility] Comment on above: Performed By: #### B MP #### [facility] [address] [address] [address] Ronnie Pennington Potassium [Moles/Vol] 4.5 mmol/L Normal 3.5-5.1 [facility] Comment on above: Performed By: #### B MP #### [facility] [address] [address] [address] Ronnie Pennington Sodium [Moles/Vol] 141 mmol/L Normal 136-145 [facility] Comment on above: Performed By: #### B MP #### [facility] [address] [address] [address] Ronnie Pennington Urea nitrogen [Mass/Vol] 26.0 mg/dL Critically high 7.0-18.0 [facility] Comment on above: Performed By: #### B MP #### [facility] [address] [address] [address] Ronnie Pennington Urea nitrogen/Creatinine [Mass ratio] 12.8 mg/mg Normal [facility] Comment on above: Performed By: #### B #### [facility] [address] [place], [place] [address] Dr. Ronnie Peninngton Office Visit (Cardiology)on 10-15-2021 Follow-up visit Diagnoses/Problems Health Maintenance/Risks Encounter for preventive health examination (V70.0) (Z00.00) Assessed Depression (311) (F32.A) Heart transplanted (V42.1) (Z94.1) Immunosuppression (279.9) (D84.9) Hypertension (401.9) (I10) Added by Problem List Migration; 2012-10-14; Moved to Suppressed Feb 17 2013 9:03PM Orders Heart transplanted Stop: Tacrolimus 0.5 MG Oral Capsule Scabies Stop: diphenhydrAMINE-Zinc Acetate 2-0.1 % External Cream Patient Instructions -INCREASE clonidine to 0.2 mg twice daily. The facility will continue to monitor your blood pressures. -We will fax over lab orders for the facility to draw to assess. -Virtual follow up in 3 months Chief Complaint OLIVERIO ESCOBEDO is being seen for a 3 month follow-up of heart transplant and B/L LE edema, scabies. A telephone visit (audio only) between the patient (at the originating site) and the provider (at the distant site) was utilized to provide this telehealth service. Verbal consent was requested and obtained from OLIVERIO ESCOBEDO on this date, 10/15/2021 01:00 PM , for a telehealth visit. Adult Risk ScreeningThere are no spiritual/cultural practices/values/needs that are important to know Initial Fall Risk Screening: OLIVERIO has not fallen in the last 6 months. History of Present Illness Mr. 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 A tele visit was performed today. Interval Hx: Clonidine increased at last office visit; documented BPs at the [facility] 120-130s/70-80s. Benadryl 25 mg q6h PRN for itching/dry skin. Immunosuppression: MMF 250 mg BID, tacrolimus 1.5 mg BID (FK 5.5 on 07/03/21, goal 5-8) - FK level pending from 10/11/21 Rejection Hx/DSAs: None documented Last echo: 12/20/20 Active Problems Problems Acute abdominal pain (789.00,338.19) (R10.9) Burkitt's lymphoma (200.20) (C83.70) Carotid artery occlusion (433.10) (I65.29) Added by Problem List Migration; 2012-10-14; Moved to Suppressed Feb 17 2013 9:03PM Cerebral infarction (434.91) (I63.9) CKD (chronic kidney disease) (585.9) (N18.9) Depression (311) (F32.A) Diabetes mellitus, type 2 (250.00) (E11.9) Dizziness (780.4) (R42) Edema (782.3) (R60.9) Encounter for prostate cancer screening (V76.44) (Z12.5) Fever (780.60) (R50.9) Gout (274.9) (M10.9) Heart transplant complication (996.83) (T86.20) Heart transplanted (V42.1) (Z94.1) Hemiplegia of dominant side, 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) High triglycerides (272.1) (E78.1) Hyperglycemia (790.29) (R73.9) Hyperlipemia (272.4) (E78.5) Hypertension (401.9) (I10) Added by Problem List Migration; 2012-10-14; Moved to Suppressed Feb 17 2013 9:03PM Hypothyroid (244.9) (E03.9) Immunosuppression (279.9) (D84.9) Long-term use of immunosuppressant medication (V58.69) (Z79.899) Muscle spasm (728.85) (M62.838) Osteoporosis (733.00) (M81.0) Pain (780.96) (R52) PEG (percutaneous endoscopic gastrostomy) status (V44.1) (Z93.1) Peripheral vascular disease (443.9) (I73.9) Primary Parkinson's disease (332.0) (G20) Scabies (133.0) (B86) Subclavian arterial stenosis (447.1) (I77.1) 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 Alendronate Sodium 35 MG Oral TabletTAKE 1 TABLET ONCE WEEKLY. Atorvastatin Calcium 80 MG Oral TabletTAKE 1 TABLET BY MOUTH EVERY DAY BD Pen Needle Mini U/F 31G X 5 MM Benadryl Allergy 25 MG Oral TabletTAKE 1 TABLET EVERY 6 HOURS NEEDED. busPIRone HCl - 10 MG Oral TabletTAKE 2 TABLET Daily Calcium 500+D 500-200 MG-UNIT Oral TabletTake 1 tablet twice daily Carbidopa-Levodopa 25-100 MG Oral TabletTAKE 0.5 TABLET 3 TIMES DAILY cloNIDine HCl - 0.2 MG Oral TabletTAKE 1 TABLET TWICE DAILY. Clopidogrel Bisulfate 75 MG Oral TabletTAKE 1 TABLET DAILY. Colace 100 MG Oral CapsuleTAKE 1 CAPSULE TWICE DAILY NEEDED. dilTIAZem HCl ER Coated Beads 300 MG Oral Capsule Extended Release 24 Hourtake 1 capsule every evening diphenhydrAMINE-Zinc Acetate 2-0.1 % External CreamAPPLY TO AFFECTED AREA(S) 4 TIMES DAILY. Fish Oil 1000 MG Oral CapsuleTAKE 1 CAPSULE Every twelve hours FreeStyle Lancets Furosemide 40 MG Oral TabletTAKE 1 TABLET DAILY. hydrALAZINE HCl - 100 MG Oral TabletTAKE 1 TABLET 3 TIMES DAILY. Insulin Lispro (1 Unit Dial) 100 UNIT/ML Subcutaneous Solution Pen-injectorUse as directed for sliding scale coverage up to 4 times per day. Maximum of 48 units daily. Lantus SoloStar 100 UNIT/ML Subcutaneous Solution Pen-injectorINJECT 12 UNIT twice a day Levothyroxine Sodium 75 MCG Oral TabletTAKE 1 TABLET DAILY DIRECTED. Magnesium Oxide 400 MG Oral TabletTak (more content not included)... Normal [facility] XR MODIFIED BARIUM SWALLOWon 08-05-2021 XR MODIFIED BARIUM SWALLOW EXAMINATION: XR MODIFIED BARIUM SWALLOW HISTORY: Dysphagia as a late effect of cerebrovascular accident COMPARISON: No relevant comparison available. TECHNIQUE: A swallowing evaluation was performed with fluoroscopy in the usual manner. Standard level fluoroscopic mode of operation utilized. FINDINGS: ORAL PHASE: Normal deglutition. PHARYNGEAL PHASE: Normal swallowing. ASPIRATION: Several episodes of penetration during swallowing nectar thickened liquid. STRUCTURE: Dictation material within the esophagus due to what appears to be decreased esophageal peristalsis and tertiary waves. OTHER: Negative. IMPRESSION: 1. Penetration when swallowing nectar thickened liquid. No aspiration appreciable abnormality with swallowing puree and solids. 2. Please see speech pathologist's report for further discussion and recommendations. Electronically authenticated by: JARON NESS Date: 2021-08-05 15:10 Normal [facility] CBC AND DIFFERENTIALon 07-13 % AUTOMATED IMMATURE GRAN 0.5 % Normal 0.0 - 0.9 [facility] Comment on above: Result Comment: Christal ture Granulocyte Count (IG) includes promyelocytes, myelocytes and metamyelocytes but does not include bands. Percent differential counts (%) should be interpreted in the context of the absolute cell counts (cells/L). Performed By: #### C BCDF #### [address] [address] Basophils (Bld) [#/Vol] 0.02 10*3/uL Normal 0.00 - 0.10 [facility] Comment on above: Performed By: #### C BCDF #### [address] [address] Basophils/100 WBC (Bld) 0.3 % Normal 0.0 - 2.0 [facility] Comment on above: Performed By: #### C BCDF #### [address] [address] Eosinophils (Bld) [#/Vol] 0.07 10*3/uL Normal 0.00 - 0.40 [facility] Comment on above: Performed By: #### C BCDF #### [address] [address] Eosinophils/100 WBC (Bld) 0.9 % Normal 0.0 - 6.0 [facility] Comment on above: Performed By: #### C BCDF #### [address] [address] Erythrocyte distribution width (RBC) [Ratio] 14.4 % Normal 11.5 - 14.5 [facility] Comment on above: Performed By: #### C BCDF #### [address] [place] [address] Hematocrit (Bld) [Volume fraction] 35.5 % Low 41.0 - 52.0 [facility] Comment on above: Performed By: #### C BCDF #### [address] [place] [address] Hemoglobin (Bld) [Mass/Vol] 10.8 g/dL Low 13.5 - 17.5 [facility] Comment on above: Performed By: #### C BCDF #### [address] [place] [address] Lymphocytes (Bld) [#/Vol] 0.42 10*3/uL Low 0.80 - 3.00 [facility] Comment on above: Performed By: #### C BCDF #### [address] [place] [address] Lymphocytes/100 WBC (Bld) 5.6 % Normal 13.0 - 44.0 [facility] Comment on above: Performed By: #### C BCDF #### [address] [place] [address] MCHC (RBC) [Mass/Vol] 30.4 g/dL Low 32.0 - 36.0 [facility] Comment on above: Performed By: #### C BCDF #### [address] [address] MCV (RBC) [Entitic vol] 89 fL Normal 80 - 100 [facility] Comment on above: Performed By: #### C BCDF #### [address] [address] Monocytes (Bld) [#/Vol] 0.07 10*3/uL Normal 0.05 - 0.80 [facility] Comment on above: Performed By: #### C BCDF #### [address] [address] Monocytes/100 WBC (Bld) 0.9 % Normal 2.0 - 10.0 [facility] Comment on above: Performed By: #### C BCDF #### [address] [address] Neutrophils (Bld) [#/Vol] 6.82 10*3/uL High 1.60 - 5.50 [facility] Comment on above: Performed By: #### C BCDF #### [address] [address] Neutrophils/100 WBC (Bld) 91.8 % Normal 40.0 - 80.0 [facility] Comment on above: Performed By: #### C BCDF #### [address] [address] NUCLEATED RBC 0.0 /100 WBC Normal 0.0 - 0.0 [facility] Comment on above: Performed By: #### C BCDF #### [address] [address] Platelets (Bld) [#/Vol] 161 10*3/uL Normal 150 - 450 [facility] Comment on above: Performed By: #### C BCDF #### [address] [address] RBC 3.98 x10E12/L Low 4.50 - 5.90 [facility] Comment on above: Performed By: #### C BCDF #### [address] [address] WBC (Bld) [#/Vol] 7.4 10*3/uL Normal 4.4 - 11.3 [facility] Comment on above: Performed By: #### C BCDF #### [address] [address] Complete Blood Count + Diffe rentialon 07-13-2021 Basophils/100 WBC (Bld) 0.3 % 0.0 - 2.0 [facility] [address] [place] Work Phone: Erythrocyte distribution width (RBC) [Ratio] 14.4 % See Below [facility] [place] [address] [place] Work Phone: Comment on above: Reference Range: 11. 5 - 14.5 Hematocrit (Bld) [Volume fraction] 35.5 % below low threshold See Below [facility] [address] [place] Work Phone: Comment on above: Reference Range: 41. 0 - 52.0 Hemoglobin (Bld) [Mass/Vol] 10.8 g/dL below low threshold See Below [facility] [address] [place] Work Phone: Comment on above: Reference Range: 13. 5 - 17.5 Lymphocytes/100 WBC (Bld) 5.6 % See Below [facility] [address] [place] Work Phone: Comment on above: Reference Range: 13. 0 - 44.0 MCHC (RBC) [Mass/Vol] 30.4 g/dL below low threshold See Below [facility] [address] [place] Work Phone: Comment on above: Reference Range: 32. 0 - 36.0 MCV (RBC) [Entitic vol] 89 fL 80 - 100 [facility] [address] [place] Work Phone: Monocytes/100 WBC (Bld) 0.9 % 2.0 - 10.0 M [facility] [address] [place] Work Phone: Neutrophils/100 WBC (Bld) 91.8 % See Below [facility] [address] [place] Work Phone: Comment on above: Reference Range: 40. 0 - 80.0 Platelets (Bld) [#/Vol] 161 10*3/uL 150 - 450 [facility] [address] [place] Work Phone: RBC (Bld) [#/Vol] 3.98 {x10E12/L} below low threshold See Below [facility] [address] [place] Work Phone: Comment on above: Reference Range: 4.5 0 - 5.90 WBC (Bld) [#/Vol] 7.4 10*3/uL 4.4 - 11.3 [facility] [address] [place] Work Phone: Complete Blood Count + Differential 0.02 {x10E9/L} See Below [facility] [address] [place] Work Phone: Comment on above: Reference Range: 0.0 0 - 0.10 Complete Blood Count + Differential 0.07 {x10E9/L} See Below [facility] [address] [place] Work Phone: Comment on above: Reference Range: 0.0 0 - 0.40 Reference Range: 0.0 5 - 0.80 Complete Blood Count + Differential 0.42 {x10E9/L} below low threshold See Below [facility] [address] [place] Work Phone: Comment on above: Reference Range: 0.8 0 - 3.00 Complete Blood Count + Differential 6.82 {x10E9/L} above high threshold See Below [facility] [address] [place] Work Phone: Comment on above: Reference Range: 1.6 0 - 5.50 Complete Blood Count + Differential 0.9 % 0.0 - 6.0 [facility] [address] [place] Work Phone: Complete Blood Count + Differential 0.5 % 0.0 - 0.9 [facility] [address] [place] Work Phone: Comment on above: Immature Granulocyte Count (IG) includes promyelocytes, myelocytes and metamyelocytes but does not include bands. Percent differential counts (%) should be interpreted in the context of the absolute cell counts (cells/L). Complete Blood Count + Differential 0.0 {/100_WBC} 0.0 - 0.0 [facility] [address] [place] Work Phone: Coronavirus 2019 RNA by PCR, Symptomaticon 07-03-2021 Date and time of symptom onset [id number] [facility] [address] [place] Work Phone: Coronavirus 2019 RNA by PCR, Symptomatic Not detected Normal See Below [facility] [address] [place] Work Phone: Comment on above: SOURCE: Nasal, Nasop haryngealReference Range: Not Detected.This test has received FDA Emergency Use Authorization (EUA) and has been verified by [facility] ([facility]). This test is only authorized for the duration of time that circumstances exist to justify the authorization of the emergency use of in vitro diagnostic tests for the detection of SARS-CoV-2 virus and/or diagnosis of COVID-19 infection under section 564(b)(1) of the Act, 21 U.S.C. 360bbb-3(b)(1), unless the authorization is terminated or revoked sooner. [facility] is certified under CLIA-88 as qualified to perform high complexity testing. Testing is performed in the [facility] located at [address] [place] [address].SARS-CoV-2/Flu/RSV Multiplex Test: Fact sheet for providers: https://www.fda.gov/media/978766/downloadFact sheet for patients: https://www.fda.gov/media/285294/download Laboratory - Chemistry and C hemistry - challengeon 07-03-2021 Glucose [Mass/Vol] 330 mg/dL above high threshold 74 - 99 [facility] [address] [place] Work Phone: Glucose [Mass/Vol] 277 mg/dL above high threshold 74 - 99 [facility] [address] [place] Work Phone: Anion gap [Moles/Vol] 15 mmol/L 10 - 20 [facility] [address] [place] Work Phone: Calcium [Mass/Vol] 9.3 mg/dL 8.6 - 10.6 [facility] [address] [place] Work Phone: Chloride [Moles/Vol] 101 mmol/L 98 - 107 [facility] [address] [place] Work Phone: CO2 [Moles/Vol] 26 mmol/L 21 - 32 [facility] [address] [place] Work Phone: Creatinine [Mass/Vol] 1.80 mg/dL above high threshold See Below [facility] [address] [place] Work Phone: Comment on above: Reference Range: 0.5 0 - 1.30 Glucose [Mass/Vol] 246 mg/dL above high threshold 74 - 99 [facility] [address] [place] Work Phone: Potassium [Moles/Vol] 3.9 mmol/L 3.5 - 5.3 [facility] [address] [place] Work Phone: [phone] Sodium [Moles/Vol] 138 mmol/L 136 - 145 [facility] [address] [place] Work Phone: Urea nitrogen [Mass/Vol] 35 mg/dL above high threshold 6 - 23 [facility] [address] [place] Work Phone: Laboratory - Hematology and Cell countson 07-03-2021 Erythrocyte distribution width (RBC) [Ratio] 13.7 % See Below [facility] [address] [place] Work Phone: Comment on above: Reference Range: 11. 5 - 14.5 Hematocrit (Bld) [Volume fraction] 35.1 % below low threshold See Below [facility] [address] [place] Work Phone: Comment on above: Reference Range: 41. 0 - 52.0 Hemoglobin (Bld) [Mass/Vol] 10.8 g/dL below low threshold See Below [facility] [address] [place] Work Phone: Comment on above: Reference Range: 13. 5 - 17.5 MCHC (RBC) [Mass/Vol] 30.8 g/dL below low threshold See Below [facility] [address] [place] Work Phone: Comment on above: Reference Range: 32. 0 - 36.0 MCV (RBC) [Entitic vol] 89 fL 80 - 100 [facility] [address] [place] Work Phone: Platelets (Bld) [#/Vol] 171 10*3/uL 150 - 450 [facility] [address] [place] Work Phone: RBC (Bld) [#/Vol] 3.94 {x10E12/L} below low threshold See Below [facility] [address] [place] Work Phone: Comment on above: Reference Range: 4.5 0 - 5.90 WBC (Bld) [#/Vol] 6.0 10*3/uL 4.4 - 11.3 [facility] [address] [place] Work Phone: No Panel Informationon 07-03 38 {mL/min/1.73m2} Abnormal >90 [facility] [address] [place] Work Phone: Comment on above: CALCULATIONS OF ERNST MATED GFR ARE PERFORMED USING THE 2020 CKD-EPI STUDY REFIT EQUATION WITHOUT THE RACE VARIABLE FOR THE IDMS-TRACEABLE CREATININE METHODS.https://jasn.asnjournals.org/content/early// ASN.8883996366 0.0 {/100_WBC} 0.0-0.0 [facility] [address] [place] Work Phone: Tacrolimuson 07-03-2021 Tacrolimus (Bld) [Mass/Vol] 5.5 ng/mL 2.0 - 15.0 [facility] [address] [place] Work Phone: Comment on above: NOTE: Result was obt ained using a chemiluminescent microparticle immunoassay (CMIA) on the [employer] system.Optimal therapeutic ranges for immuno-suppressant drugs depend upon an individualpatient's current clinical state, type oforgan transplant, time post-transplant,co-administration of other immunosuppressants,and other clinical factors. The results ofthis test should be correlated with additionalclinical and laboratory data before changesin treatment regimens are made. Laboratory - Chemistry and C hemistry - challengeon 07-02-2021 Glucose [Mass/Vol] 284 mg/dL above high threshold 74 - 99 [facility] [address] [place] Work Phone: [phone] Glucose [Mass/Vol] 257 mg/dL above high threshold 74 - 99 [facility] [address] [place] Work Phone: [phone] Glucose [Mass/Vol] 286 mg/dL above high threshold 74 - 99 [facility] [address] [place] Work Phone: [phone] Glucose [Mass/Vol] 269 mg/dL above high threshold 74 - 99 [facility] [address] [place] Work Phone: [phone] Anion gap [Moles/Vol] 15 mmol/L 10 - 20 [facility] [address] [place] Work Phone: [phone] Calcium [Mass/Vol] 9.1 mg/dL 8.6 - 10.6 [facility] [address] [place] Work Phone: [phone] Chloride [Moles/Vol] 102 mmol/L 98 - 107 [facility] [address] [place] Work Phone: [phone] CO2 [Moles/Vol] 27 mmol/L 21 - 32 [facility] [address] [place] Work Phone: [phone] Creatinine [Mass/Vol] 1.97 mg/dL above high threshold See Below [facility] [address] [place] Work Phone: [phone] Comment on above: Reference Range: 0.5 0 - 1.30 Glucose [Mass/Vol] 197 mg/dL above high threshold 74 - 99 [facility] [address] [place] Work Phone: Potassium [Moles/Vol] 4.1 mmol/L 3.5 - 5.3 [facility] [address] [place] Work Phone: Sodium [Moles/Vol] 140 mmol/L 136 - 145 [facility] [address] [place] Work Phone: Urea nitrogen [Mass/Vol] 41 mg/dL above high threshold 6 - 23 [facility] [address] [place] Work Phone: Glucose [Mass/Vol] 201 mg/dL above high threshold 74 - 99 [facility] [address] [place] Work Phone: Laboratory - Hematology and Cell countson 07-02-2021 Erythrocyte distribution width (RBC) [Ratio] 14.1 % See Below [facility] [address] [place] Work Phone: Comment on above: Reference Range: 11. 5 - 14.5 Hematocrit (Bld) [Volume fraction] 33.6 % below low threshold See Below [facility] [address] [place] Work Phone: Comment on above: Reference Range: 41. 0 - 52.0 Hemoglobin (Bld) [Mass/Vol] 10.5 g/dL below low threshold See Below [facility] [address] [place] Work Phone: Comment on above: Reference Range: 13. 5 - 17.5 MCHC (RBC) [Mass/Vol] 31.3 g/dL below low threshold See Below [facility] [address] [place] Work Phone: Comment on above: Reference Range: 32. 0 - 36.0 MCV (RBC) [Entitic vol] 88 fL 80 - 100 [facility] [address] [place] Work Phone: Platelets (Bld) [#/Vol] 160 10*3/uL 150 - 450 [facility] [address] [place] Work Phone: RBC (Bld) [#/Vol] 3.82 {x10E12/L} below low threshold See Below [facility] [address] [place] Work Phone: Comment on above: Reference Range: 4.5 0 - 5.90 WBC (Bld) [#/Vol] 6.8 10*3/uL 4.4 - 11.3 [facility] [address] [place] Work Phone: No Panel Informationon 07-02 34 {mL/min/1.73m2} Abnormal >90 [facility] [address] [place] Work Phone: Comment on above: CALCULATIONS OF ERNST MATED GFR ARE PERFORMED USING THE 2020 CKD-EPI STUDY REFIT EQUATION WITHOUT THE RACE VARIABLE FOR THE IDMS-TRACEABLE CREATININE METHODS.https://jasn.asnjournals.org/content/// ASN.7912733916 0.0 {/100_WBC} 0.0-0.0 [facility] [address] [place] Work Phone: Tacrolimuson 07-02-2021 Tacrolimus (Bld) [Mass/Vol] 7.6 ng/mL 2.0 - 15.0 [facility] [address] [place] Work Phone: Comment on above: NOTE: Result was obt ained using a chemiluminescent microparticle immunoassay (CMIA) on the [employer] system.Optimal therapeutic ranges for immuno-suppressant drugs depend upon an individualpatient's current clinical state, type oforgan transplant, time post-transplant,co-administration of other immunosuppressants,and other clinical factors. The results ofthis test should be correlated with additionalclinical and laboratory data before changesin treatment regimens are made. Hemoglobin A1Con 07-01-2021 Glucose [Mass/Vol] 194 mg/dL [facility] [address] [place] Work Phone: HbA1c (Bld) [Mass fraction] 8.4 % Abnormal [facility] [address] [place] Work Phone: Comment on above: Diagnosis of Diabete s-Adults Non-Diabetic: < or = 5.6% Increased risk for developing diabetes: 5.7-6.4% Diagnostic of diabetes: > or = 6.5%. Monitoring of Diabetes Age (y) Therapeutic Goal (%) Adults: >18 <7.0 Pediatrics: 13-18 <7.5 7-12 <8.0 0- 6 7.5-8.5 [place] [employer]. Diabetes Care 33(S1), Mar 2009. Laboratory - Chemistry and C hemistry - challengeon 07-01-2021 Glucose [Mass/Vol] 188 mg/dL above high threshold 74 - 99 [facility] [address] [place] Work Phone: Glucose [Mass/Vol] 258 mg/dL above high threshold 74 - 99 [facility] [address] [place] Work Phone: Glucose [Mass/Vol] 321 mg/dL above high threshold 74 - 99 [facility] [address] [place] Work Phone: Anion gap [Moles/Vol] 16 mmol/L 10 - 20 [facility] [address] [place] Work Phone: Calcium [Mass/Vol] 8.8 mg/dL 8.6 - 10.6 [facility] [address] [place] Work Phone: Chloride [Moles/Vol] 100 mmol/L 98 - 107 [facility] [address] [place] Work Phone: CO2 [Moles/Vol] 29 mmol/L 21 - 32 [facility] [address] [place] Work Phone: Creatinine [Mass/Vol] 1.99 mg/dL above high threshold See Below [facility] [address] [place] Work Phone: Comment on above: Reference Range: 0.5 0 - 1.30 Glucose [Mass/Vol] 227 mg/dL above high threshold 74 - 99 [facility] [address] [place] Work Phone: Glucose [Mass/Vol] 243 mg/dL above high threshold 74 - 99 [facility] [address] [place] Work Phone: Potassium [Moles/Vol] 4.0 mmol/L 3.5 - 5.3 [facility] [address] [place] Work Phone: Sodium [Moles/Vol] 141 mmol/L 136 - 145 [facility] [address] [place] Work Phone: Urea nitrogen [Mass/Vol] 38 mg/dL above high threshold 6 - 23 [facility] [address] [place] Work Phone: Laboratory - Hematology and Cell countson 07-01-2021 Erythrocyte distribution width (RBC) [Ratio] 14.1 % See Below [facility] [address] [place] Work Phone: Comment on above: Reference Range: 11. 5 - 14.5 Hematocrit (Bld) [Volume fraction] 34.6 % below low threshold See Below [facility] [address] [place] Work Phone: Comment on above: Reference Range: 41. 0 - 52.0 Hemoglobin (Bld) [Mass/Vol] 10.7 g/dL below low threshold See Below [facility] [address] [place] Work Phone: Comment on above: Reference Range: 13. 5 - 17.5 MCHC (RBC) [Mass/Vol] 30.9 g/dL below low threshold See Below [facility] [address] [place] Work Phone: Comment on above: Reference Range: 32. 0 - 36.0 MCV (RBC) [Entitic vol] 90 fL 80 - 100 [facility] [address] [place] Work Phone: Platelets (Bld) [#/Vol] 157 10*3/uL 150 - 450 [facility] [address] [place] Work Phone: RBC (Bld) [#/Vol] 3.83 {x10E12/L} below low threshold See Below [facility] [address] [place] Work Phone: Comment on above: Reference Range: 4.5 0 - 5.90 WBC (Bld) [#/Vol] 6.8 10*3/uL 4.4 - 11.3 [facility] [address] [place] Work Phone: No Panel Informationon 07-01 34 {mL/min/1.73m2} Abnormal >90 [facility] [address] [place] Work Phone: Comment on above: CALCULATIONS OF ERNST MATED GFR ARE PERFORMED USING THE 2020 CKD-EPI STUDY REFIT EQUATION WITHOUT THE RACE VARIABLE FOR THE IDMS-TRACEABLE CREATININE METHODS.https://jasn.asnjournals.org/content// ASN.2740449520 0.0 {/100_WBC} 0.0-0.0 [facility] [address] [place] Work Phone: Tacrolimuson 07-01-2021 Tacrolimus (Bld) [Mass/Vol] 9.3 ng/mL 2.0 - 15.0 [facility] [address] [place] Work Phone: Comment on above: NOTE: Result was obt ained using a chemiluminescent microparticle immunoassay (CMIA) on the [employer] system.Optimal therapeutic ranges for immuno-suppressant drugs depend upon an individualpatient's current clinical state, type oforgan transplant, time post-transplant,co-administration of other immunosuppressants,and other clinical factors. The results ofthis test should be correlated with additionalclinical and laboratory data before changesin treatment regimens are made. Laboratory - Chemistry and C hemistry - challengeon 06-30-2021 Glucose [Mass/Vol] 261 mg/dL above high threshold 74 - 99 [facility] [address] [place] Work Phone: [phone] Glucose [Mass/Vol] 267 mg/dL above high threshold 74 - 99 [facility] [address] [place] Work Phone: [phone] Glucose [Mass/Vol] 289 mg/dL above high threshold 74 - 99 [facility] [address] [place] Work Phone: [phone] Glucose [Mass/Vol] 236 mg/dL above high threshold 74 - 99 [facility] [address] [place] Work Phone: [phone] Anion gap [Moles/Vol] 17 mmol/L 10 - 20 [facility] [address] [place] Work Phone: [phone] Calcium [Mass/Vol] 8.6 mg/dL 8.6 - 10.6 [facility] [address] [place] Work Phone: [phone] Chloride [Moles/Vol] 100 mmol/L 98 - 107 [facility] [address] [place] Work Phone: [phone] CO2 [Moles/Vol] 28 mmol/L 21 - 32 [facility] [address] [place] Work Phone: [phone] Creatinine [Mass/Vol] 2.26 mg/dL above high threshold See Below [facility] [address] [place] Work Phone: [phone] Comment on above: Reference Range: 0.5 0 - 1.30 Glucose [Mass/Vol] 205 mg/dL above high threshold 74 - 99 [facility] [address] [place] Work Phone: [phone] Potassium [Moles/Vol] 3.8 mmol/L 3.5 - 5.3 [facility] [address] [place] Work Phone: Sodium [Moles/Vol] 141 mmol/L 136 - 145 [facility] [address] [place] Work Phone: Urea nitrogen [Mass/Vol] 39 mg/dL above high threshold 6 - 23 [facility] [address] [place] Work Phone: Laboratory - Hematology and Cell countson 06-30-2021 Erythrocyte distribution width (RBC) [Ratio] 14.3 % See Below [facility] [address] [place] Work Phone: Comment on above: Reference Range: 11. 5 - 14.5 Hematocrit (Bld) [Volume fraction] 33.5 % below low threshold See Below [facility] [address] [place] Work Phone: Comment on above: Reference Range: 41. 0 - 52.0 Hemoglobin (Bld) [Mass/Vol] 10.5 g/dL below low threshold See Below [facility] [address] [place] Work Phone: Comment on above: Reference Range: 13. 5 - 17.5 MCHC (RBC) [Mass/Vol] 31.3 g/dL below low threshold See Below [facility] [address] [place] Work Phone: Comment on above: Reference Range: 32. 0 - 36.0 MCV (RBC) [Entitic vol] 91 fL 80 - 100 [facility] [address] [place] Work Phone: Platelets (Bld) [#/Vol] 141 10*3/uL below lo w threshold 150 - 450 [facility] [address] [place] Work Phone: RBC (Bld) [#/Vol] 3.70 {x10E12/L} below low threshold See Below [facility] [address] [place] Work Phone: Comment on above: Reference Range: 4.5 0 - 5.90 WBC (Bld) [#/Vol] 8.2 10*3/uL 4.4 - 11.3 [facility] [address] [place] Work Phone: No Panel Informationon 06-30 29 {mL/min/1.73m2} Abnormal >90 [facility] [address] [place] Work Phone: Comment on above: CALCULATIONS OF ERNST MATED GFR ARE PERFORMED USING THE 2020 CKD-EPI STUDY REFIT EQUATION WITHOUT THE RACE VARIABLE FOR THE IDMS-TRACEABLE CREATININE METHODS.https://jasn.asnjournals.org/content/early/ ASN.9641602257 0.0 {/100_WBC} 0.0-0.0 [facility] [address] [place] Work Phone: Tacrolimuson 06-30-2021 Tacrolimus (Bld) [Mass/Vol] 7.7 ng/mL 2.0 - 15.0 [facility] [address] [place] Work Phone: Comment on above: NOTE: Result was obt ained using a chemiluminescent microparticle immunoassay (CMIA) on the [employer] system.Optimal therapeutic ranges for immuno-suppressant drugs depend upon an individualpatient's current clinical state, type oforgan transplant, time post-transplant,co-administration of other immunosuppressants,and other clinical factors. The results ofthis test should be correlated with additionalclinical and laboratory data before changesin treatment regimens are made. [facility] Venous Duplex Ultra sound for DVTon 06-30-2021 VAS LAB Venous Duplex Ultrasound for DVT [facility] [address] [place] Work Phone: Laboratory - Chemistry and C hemistry - challengeon 06-29-2021 Glucose [Mass/Vol] 252 mg/dL above high threshold 74 - 99 [facility] [address] [place] Work Phone: Glucose [Mass/Vol] 225 mg/dL above high threshold 74 - 99 [facility] [address] [place] Work Phone: [phone] Glucose [Mass/Vol] 283 mg/dL above high threshold 74 - 99 [facility] [address] [place] Work Phone: [phone] Anion gap [Moles/Vol] 16 mmol/L 10 - 20 [facility] [address] [place] Work Phone: [phone] Calcium [Mass/Vol] 8.7 mg/dL 8.6 - 10.6 [facility] [address] [place] Work Phone: [phone] Chloride [Moles/Vol] 104 mmol/L 98 - 107 [facility] [place] [facility] [address] [place] Work Phone: [phone] CO2 [Moles/Vol] 28 mmol/L 21 - 32 [facility] [address] [place] Work Phone: [phone] Creatinine [Mass/Vol] 1.97 mg/dL above high threshold See Below [facility] [address] [place] Work Phone: [phone] Comment on above: Reference Range: 0.5 0 - 1.30 Glucose [Mass/Vol] 185 mg/dL above high threshold 74 - 99 [facility] [address] [place] Work Phone: [phone] Potassium [Moles/Vol] 3.9 mmol/L 3.5 - 5.3 [facility] [address] [place] Work Phone: [phone] Sodium [Moles/Vol] 144 mmol/L 136 - 145 [facility] [address] [place] Work Phone: [phone] Urea nitrogen [Mass/Vol] 35 mg/dL above high threshold 6 - 23 [facility] [address] [place] Work Phone: [phone] Glucose [Mass/Vol] 186 mg/dL above high threshold 74 - 99 [facility] [address] [place] Work Phone: Laboratory - Hematology and Cell countson 06-29-2021 Erythrocyte distribution width (RBC) [Ratio] 14.3 % See Below [facility] [address] [place] Work Phone: Comment on above: Reference Range: 11. 5 - 14.5 Hematocrit (Bld) [Volume fraction] 35.8 % below low threshold See Below [facility] [address] [place] Work Phone: Comment on above: Reference Range: 41. 0 - 52.0 Hemoglobin (Bld) [Mass/Vol] 11.0 g/dL below low threshold See Below [facility] [employer] [address] [place] Work Phone: Comment on above: Reference Range: 13. 5 - 17.5 MCHC (RBC) [Mass/Vol] 30.7 g/dL below low threshold See Below [facility] [address] [place] Work Phone: Comment on above: Reference Range: 32. 0 - 36.0 MCV (RBC) [Entitic vol] 90 fL 80 - 100 [facility] [address] [place] Work Phone: Platelets (Bld) [#/Vol] 142 10*3/uL below lo w threshold 150 - 450 [facility] [employer] [address] [place] Work Phone: RBC (Bld) [#/Vol] 3.96 {x10E12/L} below low threshold See Below [facility] [address] [place] Work Phone: Comment on above: Reference Range: 4.5 0 - 5.90 WBC (Bld) [#/Vol] 7.0 10*3/uL 4.4 - 11.3 [facility] [address] [place] Work Phone: Magnesium, Serumon Magnesium [Mass/Vol] 1.80 mg/dL See Below [facility] [address] [place] Work Phone: Comment on above: Reference Range: 1.6 0 - 2.40 No Panel Informationon 06-29 34 {mL/min/1.73m2} Abnormal >90 [facility] [address] [place] Work Phone: Comment on above: CALCULATIONS OF ERNST MATED GFR ARE PERFORMED USING THE 2020 CKD-EPI STUDY REFIT EQUATION WITHOUT THE RACE VARIABLE FOR THE IDMS-TRACEABLE CREATININE METHODS.https://jasn.asnjournals.org/content/early// ASN.3043732002 0.0 {/100_WBC} 0.0-0.0 [facility] [address] [place] Work Phone: Tacrolimuson 06-29-2021 Tacrolimus (Bld) [Mass/Vol] 8.4 ng/mL 2.0 - 15.0 [facility] [address] [place] Work Phone: Comment on above: NOTE: Result was obt ained using a chemiluminescent microparticle immunoassay (CMIA) on the [employer] system.Optimal therapeutic ranges for immuno-suppressant drugs depend upon an individualpatient's current clinical state, type oforgan transplant, time post-transplant,co-administration of other immunosuppressants,and other clinical factors. The results ofthis test should be correlated with additionalclinical and laboratory data before changesin treatment regimens are made. Laboratory - Chemistry and C hemistry - challengeon 06-28-2021 Glucose [Mass/Vol] 217 mg/dL above high threshold 74 - 99 [facility] [address] [place] Work Phone: Glucose [Mass/Vol] 239 mg/dL above high threshold 74 - 99 [facility] [address] [place] Work Phone: Glucose [Mass/Vol] 215 mg/dL above high threshold 74 - 99 [facility] [address] [place] Work Phone: Anion gap [Moles/Vol] 14 mmol/L 10 - 20 [facility] [address] [place] Work Phone: [phone] Calcium [Mass/Vol] 8.5 mg/dL below low threshold 8.6 - 10.6 [facility] [address] [place] Work Phone: [phone] Chloride [Moles/Vol] 105 mmol/L 98 - 107 [facility] [address] [place] Work Phone: [phone] CO2 [Moles/Vol] 29 mmol/L 21 - 32 [facility] [address] [place] Work Phone: [phone] Creatinine [Mass/Vol] 1.96 mg/dL above high threshold See Below [facility] [address] [place] Work Phone: [phone] Comment on above: Reference Range: 0.5 0 - 1.30 Glucose [Mass/Vol] 159 mg/dL above high threshold 74 - 99 [facility] [address] [place] Work Phone: [phone] Potassium [Moles/Vol] 3.8 mmol/L 3.5 - 5.3 [facility] [address] [place] Work Phone: [phone] Sodium [Moles/Vol] 144 mmol/L 136 - 145 [facility] [employer] [address] [place] Work Phone: [phone] Urea nitrogen [Mass/Vol] 36 mg/dL above high threshold 6 - 23 [facility] [address] [place] Work Phone: [phone] Glucose [Mass/Vol] 159 mg/dL above high threshold 74 - 99 [facility] [address] [place] Work Phone: [phone] Laboratory - Hematology and Cell countson 06-28-2021 Erythrocyte distribution width (RBC) [Ratio] 14.3 % See Below [facility] [address] [place] Work Phone: [phone] Comment on above: Reference Range: 11. 5 - 14.5 Hematocrit (Bld) [Volume fraction] 33.8 % below low threshold See Below [facility] [address] [place] Work Phone: Comment on above: Reference Range: 41. 0 - 52.0 Hemoglobin (Bld) [Mass/Vol] 10.4 g/dL below low threshold See Below [facility] [address] [place] Work Phone: Comment on above: Reference Range: 13. 5 - 17.5 MCHC (RBC) [Mass/Vol] 30.8 g/dL below low threshold See Below [facility] [address] [place] Work Phone: Comment on above: Reference Range: 32. 0 - 36.0 MCV (RBC) [Entitic vol] 90 fL 80 - 100 [facility] [address] [place] Work Phone: Platelets (Bld) [#/Vol] 133 10*3/uL below lo w threshold 150 - 450 [facility] [address] [place] Work Phone: RBC (Bld) [#/Vol] 3.75 {x10E12/L} below low threshold See Below [facility] [address] [place] Work Phone: Comment on above: Reference Range: 4.5 0 - 5.90 WBC (Bld) [#/Vol] 5.7 10*3/uL 4.4 - 11.3 [facility] [address] [place] Work Phone: Lactate, Levelon 06-28-2021 Lactate [Moles/Vol] 0.6 mmol/L 0.4 - 2.0 [facility] [address] [place] Work Phone: Comment on above: Venipuncture immedia tely after or during the administration of Metamizole may lead to falsely low results. Testing should be performed immediately prior to Metamizole dosing. No Panel Informationon 06-28 34 {mL/min/1.73m2} Abnormal >90 [facility] [address] [place] Work Phone: Comment on above: CALCULATIONS OF ERNST MATED GFR ARE PERFORMED USING THE 2020 CKD-EPI STUDY REFIT EQUATION WITHOUT THE RACE VARIABLE FOR THE IDMS-TRACEABLE CREATININE METHODS.https://jasn.asnjournals.org/content/early/ ASN.0829985833 0.0 {/100_WBC} 0.0-0.0 [facility] [address] [place] Work Phone: Tacrolimuson 06-28-2021 Tacrolimus (Bld) [Mass/Vol] 10.4 ng/mL 2.0 - 15.0 [facility] [address] [place] Work Phone: Comment on above: NOTE: Result was obt ained using a chemiluminescent microparticle immunoassay (CMIA) on the [employer] system.Optimal therapeutic ranges for immuno-suppressant drugs depend upon an individualpatient's current clinical state, type oforgan transplant, time post-transplant,co-administration of other immunosuppressants,and other clinical factors. The results ofthis test should be correlated with additionalclinical and laboratory data before changesin treatment regimens are made. Complete Blood Count + Diffe rentialon 06-27-2021 Basophils/100 WBC (Bld) 0.5 % 0.0 - 2.0 [facility] [address] [place] Work Phone: Erythrocyte distribution width (RBC) [Ratio] 14.3 % See Below [facility] [address] [place] Work Phone: Comment on above: Reference Range: 11. 5 - 14.5 Hematocrit (Bld) [Volume fraction] 33.6 % below low threshold See Below [facility] [address] [place] Work Phone: Comment on above: Reference Range: 41. 0 - 52.0 Hemoglobin (Bld) [Mass/Vol] 10.3 g/dL below low threshold See Below [facility] [address] [place] Work Phone: Comment on above: Reference Range: 13. 5 - 17.5 Lymphocytes/100 WBC (Bld) 13.1 % See Below [facility] [address] [place] Work Phone: [phone] Comment on above: Reference Range: 13. 0 - 44.0 MCHC (RBC) [Mass/Vol] 30.7 g/dL below low threshold See Below [facility] [address] [place] Work Phone: [phone] Comment on above: Reference Range: 32. 0 - 36.0 MCV (RBC) [Entitic vol] 92 fL 80 - 100 [facility] [address] [place] Work Phone: [phone] Monocytes/100 WBC (Bld) 9.0 % 2.0 - 10.0 [facility] [address] [place] Work Phone: [phone] Neutrophils/100 WBC (Bld) 72.5 % See Below [facility] [address] [place] Work Phone: [phone] Comment on above: Reference Range: 40. 0 - 80.0 Platelets (Bld) [#/Vol] 137 10*3/uL below lo w threshold 150 - 450 [facility] [address] [place] Work Phone: [phone] RBC (Bld) [#/Vol] 3.67 {x10E12/L} below low threshold See Below [facility] [address] [place] Work Phone: [phone] Comment on above: Reference Range: 4.5 0 - 5.90 WBC (Bld) [#/Vol] 6.4 10*3/uL 4.4 - 11.3 [facility] [address] [place] Work Phone: [phone] Complete Blood Count + Differential 0.03 {x10E9/L} See Below [facility] [address] [place] Work Phone: Comment on above: Reference Range: 0.0 0 - 0.10 Complete Blood Count + Differential 0.28 {x10E9/L} See Below [facility] [address] [place] Work Phone: Comment on above: Reference Range: 0.0 0 - 0.40 Complete Blood Count + Differential 0.57 {x10E9/L} See Below [facility] [address] [place] Work Phone: Comment on above: Reference Range: 0.0 5 - 0.80 Complete Blood Count + Differential 0.83 {x10E9/L} See Below [facility] [address] [place] Work Phone: Comment on above: Reference Range: 0.8 0 - 3.00 Complete Blood Count + Differential 4.61 {x10E9/L} See Below [facility] [address] [place] Work Phone: Comment on above: Reference Range: 1.6 0 - 5.50 Complete Blood Count + Differential 4.4 % 0.0 - 6.0 [facility] [address] [place] Work Phone: Complete Blood Count + Differential 0.5 % 0.0 - 0.9 [facility] [address] [place] Work Phone: Comment on above: Immature Granulocyte Count (IG) includes promyelocytes, myelocytes and metamyelocytes but does not include bands. Percent differential counts (%) should be interpreted in the context of the absolute cell counts (cells/L). Complete Blood Count + Differential 0.0 {/100_WBC} 0.0-0.0 [facility] [address] [place] Work Phone: Glucose Glucometer (BldC) [M ass/Vol]Ordered By: Yoshi Wu on 06-27-2021 Glucose [Mass/Vol] 263 mg/dL [facility] Comment on above: Random Glucose Refer ence Range is dependent on time and content of last meal. Glucose of more than 200 mg/dL in a nonstressed, ambulatory subject supports the diagnosis of Diabetes Mellitus. Laboratory - Chemistry and C hemistry - challengeon 06-27-2021 Albumin BCP dye [Mass/Vol] 3.4 g/dL 3.4 - 5.0 [facility] [address] [place] Work Phone: ALP [Catalytic activity/Vol] 57 U/L 33 - 136 [facility] [address] [place] Work Phone: ALT With P-5'-P [Catalytic activity/Vol] 4 U/L below low threshold 10 - 52 [facility] [address] [place] Work Phone: Comment on above: Patients treated wit h Sulfasalazine may generate falsely decreased results for ALT. Anion gap [Moles/Vol] 18 mmol/L 10 - 20 [facility] [address] [place] Work Phone: AST With P-5'-P [Catalytic activity/Vol] 10 U/L 9 - 39 [facility] [address] [place] Work Phone: Bilirubin [Mass/Vol] 0.3 mg/dL 0.0 - 1.2 [facility] [address] [place] Work Phone: Calcium [Mass/Vol] 8.3 mg/dL below low threshold 8.6 - 10.6 [facility] [address] [place] Work Phone: Chloride [Moles/Vol] 102 mmol/L 98 - 107 [facility] [address] [place] Work Phone: CO2 [Moles/Vol] 26 mmol/L 21 - 32 [facility] [address] [place] Work Phone: Creatinine [Mass/Vol] 1.85 mg/dL above high threshold See Below [facility] [address] [place] Work Phone: Comment on above: Reference Range: 0.5 0 - 1.30 Glucose [Mass/Vol] 177 mg/dL above high threshold 74 - 99 [facility] [address] [place] Work Phone: Potassium [Moles/Vol] 3.7 mmol/L 3.5 - 5.3 [facility] [address] [place] Work Phone: Protein [Mass/Vol] 5.7 g/dL below low threshold 6.4 - 8.2 [facility] [address] [place] Work Phone: Sodium [Moles/Vol] 142 mmol/L 136 - 145 [facility] [address] [place] Work Phone: Urea nitrogen [Mass/Vol] 37 mg/dL above high threshold 6 - 23 [facility] [address] [place] Work Phone: Glucose [Mass/Vol] 178 mg/dL above high threshold 74 - 99 [facility] [address] [place] Work Phone: Glucose [Mass/Vol] 213 mg/dL above high threshold 74 - 99 [facility] [address] [place] Work Phone: No Panel Informationon 06-27 37 {mL/min/1.73m2} Abnormal >90 [facility] [address] [place] Work Phone: Comment on above: CALCULATIONS OF ERNST MATED GFR ARE PERFORMED USING THE 2020 CKD-EPI STUDY REFIT EQUATION WITHOUT THE RACE VARIABLE FOR THE IDMS-TRACEABLE CREATININE METHODS.https://jasn.asnjournals.org/content// ASN.5009828137 No Panel InformationOrdered By: Yoshi Wu on 06-27-2021 Bedside Glucose Comment Glu2: cleaned [facility] Automated erythrocytes count in urine sediment (number/area)Ordered By: Audra Quinteros on 06-26-2021 RBC Auto (Urine sed) [#/Area] 0-1 [HPF] [facility] Automated leukocytes count i n urine sediment (number/area)Ordered By: Audra Quinteros on 06-26-2021 WBC Auto (Urine sed) [#/Area] 0-1 [HPF] [facility] Bilirubin Test strip Ql (U)O rdered By: Audra Quinteros on 06-26-2021 Bilirubin Ql (U) Negative Negative [facility] COVID-19 Positive/NegativeOr dered By: Omid Myrick on 06-26-2021 SARS-CoV-2 (COVID-19) N gene JOYCE+probe Ql (Resp) Negative Negative [facility] Comment on above: Testing for SARS-CoV -2 by RT-PCRThis test was developed and its performance characteristics determined by [employer] ([facility]) and validated at the [facility]. This test has not been FDA cleared or approved. This test has been authorized by FDA under an Emergency Use Authorization (EUA). This test has been validated in accordance with the FDA's Guidance Document (Policy for Diagnostics Testing in Laboratories Certified to Perform High Complexity Testing under CLIA prior to Emergency Use Authorization for Coronavirus Disease-2019 during the Public Health Emergency) issued on June 22, 2019. This test is only authorized for the duration of time the declaration that circumstances exist justifying the authorization of the emergency use of in vitro diagnostic tests for detection of SARS-CoV-2 virus and/or diagnosis of COVID-19 infection under section 564(b)(1) of the Act, 21 U.S.C. 360bbb-3(b)(1), unless the authorization is terminated or revoked sooner. Color Auto (U)Ordered By: Nataly Quinteros on 06-26-2021 Color (U) Yellow Yellow [facility] Creatinine [Mass/volume] in UrineOrdered By: Audra Quinteros on 06-26-2021 Creatinine (U) [Mass/Vol] 71.5 mg/dL [facility] Comment on above: No reference range e stablished Creatinine and Glomerular fi ltration rate.predicted panel (S/P/Bld)Ordered By: Audra Quinteros on 06-26-2021 Creatinine [Mass/Vol] 1.99 mg/dL 0.64-1.27 [facility] Estimated glomerular filtrat ion rate (GFR) non- AmericanOrdered By: Audra Quinteros on 06-26-2021 GFR/1.73 sq M.predicted among non-blacks MDRD (S/P/Bld) [Vol rate/Area] 33 mL/Min [facility] Ketones Auto test strip (U) [Mass/Vol]Ordered By: Audra Quinteros on 06-26-2021 Ketones (U) [Mass/Vol] Negative Negative [facility] Laboratory - Microbiology an d Antimicrobial susceptibilityOrdered By: Omid Myrick on 06-26-2021 SARS-CoV-2 (COVID-19) RNA JOYCE+probe Ql (Unsp spec) N/A [facility] Laboratory - UrinalysisOrder ed By: Audra Quinteros on 06-26-2021 Hyaline casts LM Ql (Urine sed) 0-8 [LPF] [facility] Nitrite Test strip Ql (U)Ord ered By: Audra Quinteros on 06-26-2021 Nitrite Ql (U) Negative Negative [facility] No Panel InformationOrdered By: Audra Quinteros on 06-26-2021 Estimated GFR () 40 mL/Min [facility] Comment on above: GFR estimated refere nce range: According to KDOQI guidelines, <60 ml/min/1.73m2 is sufficient to diagnose a patient with chronic kidney disease. Pharmacy Creatinine Clearance (Chem 39.80 [facility] Protein Auto test strip (U) [Mass/Vol]Ordered By: Audra Quinteros on 06-26-2021 Protein (U) [Mass/Vol] 300 mg/dL Negative [facility] Serum or plasma calcium abhijit urement (mass/volume)Ordered By: Audra Quinteros on 06-26-2021 Calcium [Mass/Vol] 8.9 mg/dL 8.2-10.2 [facility] Serum or plasma chloride marylin surement (moles/volume)Ordered By: Audra Quinteros on 06-26-2021 Chloride [Moles/Vol] 105 mmol/L 95-114 [facility] Serum or plasma glucose abhijit urement (mass/volume)Ordered By: Audra Quinteros on 06-26-2021 Glucose [Mass/Vol] 194 mg/dL 70-100 [facility] Comment on above: ADA recommended refe rence rangeRandom Glucose Reference Range is dependent on time and content of last meal. Glucose of more than 200 mg/dL in a nonstressed, ambulatory subject supports the diagnosis of Diabetes Mellitus. Serum or plasma potassium me asurement (moles/volume)Ordered By: Omid Myrick on 06-26-2021 Potassium [Moles/Vol] 4.0 mmol/L 3.5-5.1 [facility] Serum or plasma sodium measu rement (moles/volume)Ordered By: Audra Quinteros on 06-26-2021 Sodium [Moles/Vol] 140 mmol/L 136-146 [facility] Serum or plasma total carbon dioxide measurement (moles/volume)Ordered By: Audra Quinteros on 06-26-2021 CO2 [Moles/Vol] 23.8 mmol/L 22.0-30.0 [facility] Serum or plasma urea nitroge n measurement (mass/volume)Ordered By: Audra Quinteros on 06-26-2021 Urea nitrogen [Mass/Vol] 39 mg/dL 9-23 [facility] Specific gravity Auto test s trip (U) [Rel density]Ordered By: Audra Quinteros on 06-26-2021 Specific gravity (U) [Rel density] 1.015 1.001-1.03 0 [facility] Squamous epithelial cells de tection in urine sediment by light microscopyOrdered By: Audra Quinteros on 06-26-2021 Epithelial cells.squamous LM Ql (Urine sed) None seen [HPF] [facility] Urine bacteria detection by automated methodOrdered By: Audra Quinteros on 06-26-2021 Bacteria Auto Ql (U) None seen None Seen [facility] Urine clarity by refractomet ry automatedOrdered By: Audra Quinteros on 06-26-2021 Clarity Refractometry automated (U) Clear Clear [facility] Urine glucose measurement by automated test strip (mass/volume)Ordered By: Audra Quinteros on 06-26-2021 Glucose Auto test strip (U) [Mass/Vol] Normal mg/dL Normal [facility] Urine hemoglobin detection b y automated test stripOrdered By: Audra Quinteros on 06-26-2021 Hemoglobin Auto test strip Ql (U) Negative Negative [facility] Urine leukocyte esterase det ection by automated test stripOrdered By: Audra Quinteros on 06-26-2021 Leukocyte esterase Auto test strip Ql (U) Negative Negative [facility] Urine sodium measurement (mo les/volume)Ordered By: Audra Quinteros on 06-26-2021 Sodium (U) [Moles/Vol] 94 mmol/L [facility] Comment on above: No reference range e stablished Urobilinogen Auto test strip (U) [Mass/Vol]Ordered By: Audra Quinteros on 06-26-2021 Urobilinogen (U) [Mass/Vol] Normal mg/dL Normal [facility] pH Auto test strip (U)Ordere d By: Audra Quinteros on 06-26-2021 pH (U) 5.5 [pH] 5.0-9.0 [facility] Activated partial thrombopla stin time (aPTT) in platelet poor plasma by coagulation aOrdered By: Andrew Hernández on 06-25-2021 aPTT Coag (PPP) [Time] 33.4 s 25.1-36.5 [facility] Albumin [Mass/volume] in Ser um or PlasmaOrdered By: Andrew Hernández on 06-25-2021 Albumin [Mass/Vol] 3.4 g/dL 3.2-5.5 [facility] Basophils Auto (Bld) [#/Vol] Ordered By: Andrew Hernández on 06-25-2021 Basophils (Bld) [#/Vol] 0.0 10*3/uL 0.0-0.2 [facility] Basophils/100 WBC Auto (Bld) Ordered By: Andrew Hernández on 06-25-2021 Basophils/100 WBC (Bld) 0.6 % [facility] Blood hemoglobin measurement (mass/volume)Ordered By: Andrew Hernández on 06-25-2021 Hemoglobin (Bld) [Mass/Vol] 11.8 g/dL 13.0-17.0 [facility] Blood leukocytes automated c ount (number/volume)Ordered By: Andrew Hernández on 06-25-2021 WBC (Bld) [#/Vol] 7.5 10*3/uL 4.5-11.0 [facility] COVID-19 SOFIAOrdered By: Prasanna Hernández on 06-25-2021 SARS-CoV+SARS-CoV-2 (COVID-19) Ag IA.rapid Ql (Resp) Negative Negative [facility] Comment on above: This is a duplicate Jessi SARS Antigen (GABI) result to be used for statistical tracking purpose only. Creatinine and Glomerular fi ltration rate.predicted panel (S/P/Bld)Ordered By: Andrew Hernández on 06-25-2021 Creatinine [Mass/Vol] 2.25 mg/dL 0.64-1.27 [facility] Eosinophils Auto (Bld) [#/Vo l]Ordered By: Andrew Hernández on 06-25-2021 Eosinophils (Bld) [#/Vol] 0.3 10*3/uL 0.0-0.45 [facility] Eosinophils/100 WBC Auto (Bl d)Ordered By: Andrew Hernández on 06-25-2021 Eosinophils/100 WBC (Bld) 4.6 % [facility] Erythrocyte distribution wid th Auto (RBC) [Ratio]Ordered By: Andrew Hernández on 06-25-2021 Erythrocyte distribution width (RBC) [Ratio] 16.1 % 12.0-14.8 [facility] Erythrocyte sedimentation ra te by Photometric methodOrdered By: Andrew Hernández on 06-25-2021 ESR Photometric method (Bld) [Velocity] 39 mm/hr 0-19 [facility] Estimated glomerular filtrat ion rate (GFR) non- AmericanOrdered By: Andrew Hernández on 06-25-2021 GFR/1.73 sq M.predicted among non-blacks MDRD (S/P/Bld) [Vol rate/Area] 28 mL/Min [facility] Globulin Calc (S) [Mass/Vol] Ordered By: Andrew Hernández on 06-25-2021 Globulin (S) [Mass/Vol] 3.2 g/dL [facility] Hematocrit Auto (Bld) [Volum e fraction]Ordered By: Andrew Hernández on 06-25-2021 Hematocrit (Bld) [Volume fraction] 36.2 % 38.8-50.0 [facility] Laboratory - Chemistry and C hemistry - challengeOrdered By: Andrew Hernández on 06-25-2021 Natriuretic peptide B (Bld) [Mass/Vol] 165.0 pg/mL 5-100 [facility] Laboratory - CoagulationOrde red By: Andrew Hernández on 06-25-2021 PT Coag (PPP) [Time] 11.9 s 9.0-12.9 [facility] Laboratory - Hematology and Cell countsOrdered By: Andrew Hernández on 06-25-2021 Nucleated RBC/100 WBC (Bld) [Ratio] 0.1 % 0-0.5 [facility] Lymphocytes Auto (Bld) [#/Vo l]Ordered By: Andrew Hernández on 06-25-2021 Lymphocytes (Bld) [#/Vol] 1.0 10*3/uL 1.00-4.8 [facility] Lymphocytes/100 WBC Auto (Bl d)Ordered By: Andrew Hernández on 06-25-2021 Lymphocytes/100 WBC (Bld) 12.9 % [facility] MCH Auto (RBC) [Entitic mass ]Ordered By: Andrew Hernández on 06-25-2021 MCH (RBC) [Entitic mass] 28.1 pg 27.5-35.2 [facility] MCHC Auto (RBC) [Mass/Vol]Or dered By: Andrew Hernández on 06-25-2021 MCHC (RBC) [Mass/Vol] 32.7 g/dL 32.5-35.6 [facility] MCV Auto (RBC) [Entitic vol] Ordered By: Andrew Hernández on 06-25-2021 MCV (RBC) [Entitic vol] 86.0 fL 83.5-101 [facility] Monocytes Auto (Bld) [#/Vol] Ordered By: Andrew Hernández on 06-25-2021 Monocytes (Bld) [#/Vol] 0.5 10*3/uL 0.0-0.8 [facility] Monocytes/100 WBC Auto (Bld) Ordered By: Andrew Hernández on 06-25-2021 Monocytes/100 WBC (Bld) 7.3 % [facility] Neutrophils Auto (Bld) [#/Vo l]Ordered By: Andrew Hernández on 06-25-2021 Neutrophils (Bld) [#/Vol] 5.6 10*3/uL 1.8-7.7 [facility] Neutrophils/100 WBC Auto (Bl d)Ordered By: Andrew Hernández on 06-25-2021 Neutrophils/100 WBC (Bld) 74.6 % [facility] No Panel InformationOrdered By: Andrew Hernández on 06-25-2021 SARS Antigen (LFIA) [facility] Estimated GFR () 34 mL/Min [facility] Comment on above: GFR estimated refere nce range: According to KDOQI guidelines, <60 ml/min/1.73m2 is sufficient to diagnose a patient with chronic kidney disease. Pharmacy Creatinine Clearance (Chem 365.00 [facility] Platelet mean volume Auto (B ld) [Entitic vol]Ordered By: Andrew Hernández on 06-25-2021 Platelet mean volume (Bld) [Entitic vol] 10.0 fL 6.6-10.1 [facility] Platelet poor plasma interna tional normalized ratio (INR) by coagulation assay (relatOrdered By: Andrew Hernández on 06-25-2021 INR Coag (PPP) [Relative time] 1.1 {INR} [facility] Comment on above: INR Therapeutic Rang e A) Pre- and Peroperative OAT started two weeks before surgery. NOT HIP SURGERY: 1.5 - 2.5 HIP SURGERY: 2 - 3B) Primary and secondary prevention of venous THROMBOSIS: 2 - 3C) Active venous thrombosis, pulmonary embolismand prevention of recurrent venous thrombosis: 2 - 3D) Prevention of arterial thromboembolismincluding patients with mechanical heart valves: 3 - 4.5 Platelets Auto (Bld) [#/Vol] Ordered By: Andrew Hernández on 06-25-2021 Platelets (Bld) [#/Vol] 171 10*3/uL 150-450 [facility] Comment on above: Delta: 119 on 04/05/ 22-0453 Protein [Mass/volume] in Ser um or PlasmaOrdered By: Andrew Hernández on 06-25-2021 Protein [Mass/Vol] 6.6 g/dL 6.1-7.9 [facility] RBC Auto (Bld) [#/Vol]Ordere d By: Andrew Hernández on 06-25-2021 RBC (Bld) [#/Vol] 4.21 10*6/uL 3.90-5.60 [facility] Serum or plasma C reactive p rotein measurement (mass/volume)Ordered By: Andrew Hernández on 06-25-2021 CRP [Mass/Vol] 0.9 mg/dL 0.0-1.0 [facility] Serum or plasma alanine lopez otransferase measurement without P-5'-P (enzymatic activiOrdered By: Andrew Hernández on 06-25-2021 ALT No additional P-5'-P [Catalytic activity/Vol] 13 U/L 10-60 [facility] Serum or plasma albumin/glob ulin mass ratioOrdered By: Andrew Hernández on 06-25-2021 Albumin/Globulin [Mass ratio] 1.1 {ratio} [facility] Serum or plasma alkaline cande sphatase measurement (enzymatic activity/volume)Ordered By: Andrew Hernández on 06-25-2021 ALP [Catalytic activity/Vol] 57 U/L 32-92 [facility] Serum or plasma aspartate am inotransferase measurement (enzymatic activity/volume)Ordered By: Andrew Hernández on 06-25-2021 AST [Catalytic activity/Vol] 15 U/L 10-42 [facility] Serum or plasma calcium abhijit urement (mass/volume)Ordered By: Andrew Hernández on 06-25-2021 Calcium [Mass/Vol] 9.2 mg/dL 8.2-10.2 [facility] Serum or plasma chloride marylin surement (moles/volume)Ordered By: Andrew Hernández on 06-25-2021 Chloride [Moles/Vol] 106 mmol/L 95-114 [facility] Serum or plasma glucose abhijit urement (mass/volume)Ordered By: Andrew Hernández on 06-25-2021 Glucose [Mass/Vol] 177 mg/dL 70-100 [facility] Comment on above: ADA recommended refe rence rangeRandom Glucose Reference Range is dependent on time and content of last meal. Glucose of more than 200 mg/dL in a nonstressed, ambulatory subject supports the diagnosis of Diabetes Mellitus. Serum or plasma potassium me asurement (moles/volume)Ordered By: Andrew Hernández on 06-25-2021 Potassium [Moles/Vol] 4.2 mmol/L 3.5-5.1 [facility] Serum or plasma sodium measu rement (moles/volume)Ordered By: Andrew Hernández on 06-25-2021 Sodium [Moles/Vol] 142 mmol/L 136-146 [facility] Serum or plasma total biliru bin measurement (mass/volume)Ordered By: Andrew Hernández on 06-25-2021 Bilirubin [Mass/Vol] 0.4 mg/dL 0.3-1.2 [facility] Serum or plasma total carbon dioxide measurement (moles/volume)Ordered By: Andrew Hernández on 06-25-2021 CO2 [Moles/Vol] 24.1 mmol/L 22.0-30.0 [facility] Serum or plasma urea nitroge n measurement (mass/volume)Ordered By: Andrew Hernández on 06-25-2021 Urea nitrogen [Mass/Vol] 41 mg/dL 9-23 [facility] Troponin I.cardiac [Mass/vol ume] in Serum or Plasma by High sensitivity methodOrdered By: Andrew Hernández on 06-25-2021 Troponin I.cardiac High sensitivity method [Mass/Vol] 12 pg/mL 0-20 [facility] Albumin [Mass/volume] in Ser um or PlasmaOrdered By: Julee Davies on 06-24-2021 Albumin [Mass/Vol] 2.9 g/dL 3.2-5.5 [facility] Basophils Auto (Bld) [#/Vol] Ordered By: Julee Davies on 06-24-2021 Basophils (Bld) [#/Vol] 0.0 10*3/uL 0.0-0.2 [facility] Basophils/100 WBC Auto (Bld) Ordered By: Julee Davies on 04-05-2022 Basophils/100 WBC (Bld) 0.6 % [facility] Blood hemoglobin measurement (mass/volume)Ordered By: Julee Davies on 06-24-2021 Hemoglobin (Bld) [Mass/Vol] 10.8 g/dL 13.0-17.0 [facility] Blood leukocytes automated c ount (number/volume)Ordered By: Julee Davies on 06-24-2021 WBC (Bld) [#/Vol] 6.6 10*3/uL 4.5-11.0 [facility] Creatinine and Glomerular fi ltration rate.predicted panel (S/P/Bld)Ordered By: Julee Davies on 06-24-2021 Creatinine [Mass/Vol] 2.17 mg/dL 0.64-1.27 [facility] Eosinophils Auto (Bld) [#/Vo l]Ordered By: Julee Davies on 06-24-2021 Eosinophils (Bld) [#/Vol] 0.3 10*3/uL 0.0-0.45 [facility] Eosinophils/100 WBC Auto (Bl d)Ordered By: Julee Davies on 06-24-2021 Eosinophils/100 WBC (Bld) 5.2 % [facility] Erythrocyte distribution wid th Auto (RBC) [Ratio]Ordered By: Julee Davies on 06-24-2021 Erythrocyte distribution width (RBC) [Ratio] 15.8 % 12.0-14.8 [facility] Estimated glomerular filtrat ion rate (GFR) non- AmericanOrdered By: Julee Davies on 06-24-2021 GFR/1.73 sq M.predicted among non-blacks MDRD (S/P/Bld) [Vol rate/Area] 30 mL/Min [facility] Globulin Calc (S) [Mass/Vol] Ordered By: Julee Davies on 06-24-2021 Globulin (S) [Mass/Vol] 2.4 g/dL [facility] Hematocrit Auto (Bld) [Volum e fraction]Ordered By: Julee Davies on 06-24-2021 Hematocrit (Bld) [Volume fraction] 33.0 % 38.8-50.0 [facility] Laboratory - Chemistry and C hemistry - challengeOrdered By: Julee Davies on 06-24-2021 Magnesium [Mass/Vol] 1.9 mg/dL 1.6-2.6 [facility] Natriuretic peptide B (Bld) [Mass/Vol] 224.0 pg/mL 5-100 [facility] Laboratory - Hematology and Cell countsOrdered By: Julee Davies on 06-24-2021 Nucleated RBC/100 WBC (Bld) [Ratio] 0.1 % 0-0.5 [facility] Lymphocytes Auto (Bld) [#/Vo l]Ordered By: Julee Davies on 06-24-2021 Lymphocytes (Bld) [#/Vol] 0.8 10*3/uL 1.00-4.8 [facility] Lymphocytes/100 WBC Auto (Bl d)Ordered By: Julee Davies on 06-24-2021 Lymphocytes/100 WBC (Bld) 11.4 % [facility] MCH Auto (RBC) [Entitic mass ]Ordered By: Julee Davies on 06-24-2021 MCH (RBC) [Entitic mass] 27.7 pg 27.5-35.2 [facility] MCHC Auto (RBC) [Mass/Vol]Or dered By: Julee Davies on 06-24-2021 MCHC (RBC) [Mass/Vol] 32.7 g/dL 32.5-35.6 [facility] MCV Auto (RBC) [Entitic vol] Ordered By: Julee Davies on 06-24-2021 MCV (RBC) [Entitic vol] 84.6 fL 83.5-101 [facility] Monocytes Auto (Bld) [#/Vol] Ordered By: Julee Davies on 06-24-2021 Monocytes (Bld) [#/Vol] 0.5 10*3/uL 0.0-0.8 [facility] Monocytes/100 WBC Auto (Bld) Ordered By: Julee Davies on 06-24-2021 Monocytes/100 WBC (Bld) 7.4 % [facility] Neutrophils Auto (Bld) [#/Vo l]Ordered By: Julee Davies on 06-24-2021 Neutrophils (Bld) [#/Vol] 5.0 10*3/uL 1.8-7.7 [facility] Neutrophils/100 WBC Auto (Bl d)Ordered By: Julee Davies on 06-24-2021 Neutrophils/100 WBC (Bld) 75.4 % [facility] No Panel InformationOrdered By: Julee Davies on 06-24-2021 Estimated GFR () 36 mL/Min [facility] Comment on above: GFR estimated refere nce range: According to KDOQI guidelines, <60 ml/min/1.73m2 is sufficient to diagnose a patient with chronic kidney disease. Pharmacy Creatinine Clearance (Chem N/A [facility] Platelet mean volume Auto (B ld) [Entitic vol]Ordered By: Julee Davies on 06-24-2021 Platelet mean volume (Bld) [Entitic vol] 9.8 fL 6.6-10.1 [facility] Platelets Auto (Bld) [#/Vol] Ordered By: Julee Davies on 06-24-2021 Platelets (Bld) [#/Vol] 119 10*3/uL 150-450 [facility] Protein [Mass/volume] in Ser um or PlasmaOrdered By: Julee Davies on 06-24-2021 Protein [Mass/Vol] 5.3 g/dL 6.1-7.9 [facility] RBC Auto (Bld) [#/Vol]Ordere d By: Julee Davies on 06-24-2021 RBC (Bld) [#/Vol] 3.90 10*6/uL 3.90-5.60 [facility] Serum or plasma alanine lopez otransferase measurement without P-5'-P (enzymatic activiOrdered By: Julee Davies on 06-24-2021 ALT No additional P-5'-P [Catalytic activity/Vol] 7 U/L 10-60 [facility] Serum or plasma albumin/glob ulin mass ratioOrdered By: Julee Davies on 06-24-2021 Albumin/Globulin [Mass ratio] 1.2 {ratio} [facility] Serum or plasma alkaline cande sphatase measurement (enzymatic activity/volume)Ordered By: Julee Davies on 06-24-2021 ALP [Catalytic activity/Vol] 56 U/L 32-92 [facility] Serum or plasma aspartate am inotransferase measurement (enzymatic activity/volume)Ordered By: Julee Davies on 06-24-2021 AST [Catalytic activity/Vol] 13 U/L 10-42 [facility] Serum or plasma calcium abhijit urement (mass/volume)Ordered By: Julee Davies on 06-24-2021 Calcium [Mass/Vol] 8.9 mg/dL 8.2-10.2 [facility] Serum or plasma chloride marylin surement (moles/volume)Ordered By: Julee Davies on 06-24-2021 Chloride [Moles/Vol] 109 mmol/L 95-114 [facility] Serum or plasma glucose abhijit urement (mass/volume)Ordered By: Julee Davies on 06-24-2021 Glucose [Mass/Vol] 160 mg/dL 70-100 [facility] Comment on above: ADA recommended refe rence rangeRandom Glucose Reference Range is dependent on time and content of last meal. Glucose of more than 200 mg/dL in a nonstressed, ambulatory subject supports the diagnosis of Diabetes Mellitus. Serum or plasma potassium me asurement (moles/volume)Ordered By: Julee Davies on 06-24-2021 Potassium [Moles/Vol] 4.1 mmol/L 3.5-5.1 [facility] Serum or plasma sodium measu rement (moles/volume)Ordered By: Julee Davies on 06-24-2021 Sodium [Moles/Vol] 144 mmol/L 136-146 [facility] Serum or plasma total biliru bin measurement (mass/volume)Ordered By: Julee Davies on 06-24-2021 Bilirubin [Mass/Vol] 0.5 mg/dL 0.3-1.2 [facility] Serum or plasma total carbon dioxide measurement (moles/volume)Ordered By: Julee Davies on 06-24-2021 CO2 [Moles/Vol] 25.7 mmol/L 22.0-30.0 [facility] Serum or plasma urea nitroge n measurement (mass/volume)Ordered By: Julee Davies on 06-24-2021 Urea nitrogen [Mass/Vol] 43 mg/dL 9- [facility] Tacrolimus [Mass/volume] in BloodOrdered By: Julee Davies on 06-24-2021 Tacrolimus (Bld) [Mass/Vol] 8.1 ng/mL [facility] Comment on above: This test was vane christine and its performance characteristicsdetermined by [facility]. It has not been cleared orapproved by the Food and Drug Administration. Trough (immediately following transplant) 15.0 Trough (steady state, 2 weeks or more after transplant): 3.0 - 8.0 Performed by LC-MS/MS technology.Performed at: [address] [id number] Director: Mynor Nixon MD, Phone: [phone] Albumin [Mass/volume] in Ser um or PlasmaOrdered By: Julee Davies on 05-27-2021 Albumin [Mass/Vol] 3.1 g/dL 3.2-5.5 [facility] Basophils Auto (Bld) [#/Vol] Ordered By: Julee Davies on 05-27-2021 Basophils (Bld) [#/Vol] 0.0 10*3/uL 0.0-0.2 [facility] Basophils/100 WBC Auto (Bld) Ordered By: Julee Davies on 05-27-2021 Basophils/100 WBC (Bld) 0.7 % [facility] Blood hemoglobin measurement (mass/volume)Ordered By: Julee Davies on 05-27-2021 Hemoglobin (Bld) [Mass/Vol] 11.4 g/dL 13.0-17.0 [facility] Blood leukocytes automated c ount (number/volume)Ordered By: Julee Davies on 05-27-2021 WBC (Bld) [#/Vol] 6.1 10*3/uL 4.5-11.0 [facility] Cholesterol [Mass/volume] in Serum or PlasmaOrdered By: Julee Davies on 05-27-2021 Cholesterol [Mass/Vol] 129 mg/dL 140-200 [facility] Comment on above: Chol less than 200 m g/dl low riskChol 201-239 mg/dl borderline riskChol 240 mg/dl and greater high risk Cholesterol in LDL Calc [Mas s/Vol]Ordered By: Julee Davies on 05-27-2021 Cholesterol in LDL [Mass/Vol] 67 mg/dL 0-100 [facility] Comment on above: LDL ATP III CLASSIFI CATIONLDL less than 100 mg/dL OptimalLDL 100-129 mg/dL Near or above optimalLDL 130-159 mg/dL Borderline highLDL 160-189 mg/dL HighLDL greater than 189 mg/dL Very high Cholesterol in VLDL Calc [Ma ss/Vol]Ordered By: Julee Davies on 05-27-2021 Cholesterol in VLDL [Mass/Vol] 27 mg/dL [facility] Creatinine and Glomerular fi ltration rate.predicted panel (S/P/Bld)Ordered By: Julee Davies on 05-27-2021 Creatinine [Mass/Vol] 1.86 mg/dL 0.64-1.27 [facility] Eosinophils Auto (Bld) [#/Vo l]Ordered By: Julee Davies on 05-27-2021 Eosinophils (Bld) [#/Vol] 0.2 10*3/uL 0.0-0.45 [facility] Eosinophils/100 WBC Auto (Bl d)Ordered By: Julee Davies on 05-27-2021 Eosinophils/100 WBC (Bld) 3.7 % [facility] Erythrocyte distribution wid th Auto (RBC) [Ratio]Ordered By: Julee Davies on 05-27-2021 Erythrocyte distribution width (RBC) [Ratio] 14.9 % 12.0-14.8 [facility] Estimated glomerular filtrat ion rate (GFR) non- AmericanOrdered By: Julee Davies on 05-27-2021 GFR/1.73 sq M.predicted among non-blacks MDRD (S/P/Bld) [Vol rate/Area] 35 mL/Min [facility] Globulin Calc (S) [Mass/Vol] Ordered By: Julee Davies on 05-27-2021 Globulin (S) [Mass/Vol] 2.9 g/dL [facility] Glucose mean value [Mass/vol ume] in Blood Estimated from glycated hemoglobinOrdered By: Julee Davies on 05-27-2021 Average glucose Estimated from glycated hemoglobin (Bld) [Mass/Vol] 209 mg/dL [facility] Hematocrit Auto (Bld) [Volum e fraction]Ordered By: Julee Davies on 05-27-2021 Hematocrit (Bld) [Volume fraction] 34.1 % 38.8-50.0 [facility] Hemoglobin A1c percentageOrd ered By: Julee Davies on 05-27-2021 HbA1c (Bld) [Mass fraction] 8.9 % 4.3-5.6 [facility] Comment on above: Increased risk for d iabetes: 5.7 - 6.4diabetes: >6.4glycemic control for adults with diabetes: <7.0 Laboratory - Hematology and Cell countsOrdered By: Julee Davies on 05-27-2021 Nucleated RBC/100 WBC (Bld) [Ratio] 0.2 % 0-0.5 [facility] Lymphocytes Auto (Bld) [#/Vo l]Ordered By: Julee Davies on 05-27-2021 Lymphocytes (Bld) [#/Vol] 1.1 10*3/uL 1.00-4.8 [facility] Lymphocytes/100 WBC Auto (Bl d)Ordered By: Julee Davies on 05-27-2021 Lymphocytes/100 WBC (Bld) 17.9 % [facility] MCH Auto (RBC) [Entitic mass ]Ordered By: Julee Davies on 05-27-2021 MCH (RBC) [Entitic mass] 28.3 pg 27.5-35.2 [facility] MCHC Auto (RBC) [Mass/Vol]Or dered By: Julee Davies on 05-27-2021 MCHC (RBC) [Mass/Vol] 33.5 g/dL 32.5-35.6 [facility] MCV Auto (RBC) [Entitic vol] Ordered By: Julee Davies on 05-27-2021 MCV (RBC) [Entitic vol] 84.5 fL 83.5-101 [facility] Monocytes Auto (Bld) [#/Vol] Ordered By: Julee Davies on 05-27-2021 Monocytes (Bld) [#/Vol] 0.5 10*3/uL 0.0-0.8 [facility] Monocytes/100 WBC Auto (Bld) Ordered By: Julee Davies on 05-27-2021 Monocytes/100 WBC (Bld) 7.9 % [facility] Neutrophils Auto (Bld) [#/Vo l]Ordered By: Julee Davies on 05-27-2021 Neutrophils (Bld) [#/Vol] 4.3 10*3/uL 1.8-7.7 [facility] Neutrophils/100 WBC Auto (Bl d)Ordered By: Julee Davies on 05-27-2021 Neutrophils/100 WBC (Bld) 69.8 % [facility] No Panel InformationOrdered By: Julee Davise on 05-27-2021 25-Hydroxy Vitamin D Total 23.8 ng/mL 30-100 [facility] Comment on above: VITAMIN D STATUS 25( [place])VITAMIN D RANGE (ng/mL) Deficient <20 Insufficient 20 to <30Sufficient 30 to 100Reference: Ely MF,Brad NC, Kristy ORTEGA, et al. Evaluation,treatment, and prevention of vitamin D deficiency; an Endocrine Society clinical practice guideline. JCEM. 2010; 96(7):1911-30. Estimated GFR () 43 mL/Min [facility] Comment on above: GFR estimated refere nce range: According to KDOQI guidelines, <60 ml/min/1.73m2 is sufficient to diagnose a patient with chronic kidney disease. Pharmacy Creatinine Clearance (Chem N/A [facility] Platelet Estimate Decreased Normal [facility] Platelet Morphology Comment Normal Normal [facility] Platelet mean volume Auto (B ld) [Entitic vol]Ordered By: Julee Davies on 05-27-2021 Platelet mean volume (Bld) [Entitic vol] 10.6 fL 6.6-10.1 [facility] Platelets Auto (Bld) [#/Vol] Ordered By: Julee Davies on 05-27-2021 Platelets (Bld) [#/Vol] 129 10*3/uL 150-450 [facility] Protein [Mass/volume] in Ser um or PlasmaOrdered By: Julee Davies on 05-27-2021 Protein [Mass/Vol] 6.0 g/dL 6.1-7.9 [facility] RBC Auto (Bld) [#/Vol]Ordere d By: Julee Davies on 05-27-2021 RBC (Bld) [#/Vol] 4.03 10*6/uL 3.90-5.60 [facility] RBC morphologyOrdered By: Maurice Davies on 05-27-2021 RBC morphology finding Nom (Bld) Normal [facility] Serum or plasma alanine lopez otransferase measurement without P-5'-P (enzymatic activiOrdered By: Julee Davies on 05-27-2021 ALT No additional P-5'-P [Catalytic activity/Vol] 7 U/L 10-60 [facility] Serum or plasma albumin/glob ulin mass ratioOrdered By: Julee Davies on 05-27-2021 Albumin/Globulin [Mass ratio] 1.1 {ratio} [facility] Serum or plasma alkaline cande sphatase measurement (enzymatic activity/volume)Ordered By: Julee Davies on 05-27-2021 ALP [Catalytic activity/Vol] 52 U/L 32-92 [facility] Serum or plasma aspartate am inotransferase measurement (enzymatic activity/volume)Ordered By: Julee Davies on 05-27-2021 AST [Catalytic activity/Vol] 11 U/L 10-42 [facility] Serum or plasma calcium abhijit urement (mass/volume)Ordered By: Julee Davies on 05-27-2021 Calcium [Mass/Vol] 9.0 mg/dL 8.2-10.2 [facility] Serum or plasma chloride marylin surement (moles/volume)Ordered By: Julee Davies on 05-27-2021 Chloride [Moles/Vol] 104 mmol/L 95-114 [facility] Serum or plasma glucose abhijit urement (mass/volume)Ordered By: Julee Davies on 05-27-2021 Glucose [Mass/Vol] 183 mg/dL 70-100 [facility] Comment on above: ADA recommended refe rence rangeRandom Glucose Reference Range is dependent on time and content of last meal. Glucose of more than 200 mg/dL in a nonstressed, ambulatory subject supports the diagnosis of Diabetes Mellitus. Serum or plasma high density lipoprotein (HDL) cholesterol measurementOrdered By: Julee Davies on 05-27-2021 Cholesterol in HDL [Mass/Vol] 35 mg/dL 29-71 [facility] Comment on above: HDL CHOL ATP-III CLA SSIFICATION Cardiovascular RiskHDL > or equal to 60 mg/dL LOWHDL < 40 mg/dL HIGH Serum or plasma potassium me asurement (moles/volume)Ordered By: Julee Davies on 05-27-2021 Potassium [Moles/Vol] 4.1 mmol/L 3.5-5.1 [facility] Serum or plasma sodium measu rement (moles/volume)Ordered By: Julee Davies on 05-27-2021 Sodium [Moles/Vol] 140 mmol/L 136-146 [facility] Serum or plasma total biliru bin measurement (mass/volume)Ordered By: Julee Davies on 05-27-2021 Bilirubin [Mass/Vol] 0.4 mg/dL 0.3-1.2 [facility] Serum or plasma total carbon dioxide measurement (moles/volume)Ordered By: Julee Davies on 05-27-2021 CO2 [Moles/Vol] 26.1 mmol/L 22.0-30.0 [facility] Serum or plasma total choles terol/high density lipoprotein (HDL) cholesterol mass ratOrdered By: Julee Davies on 05-27-2021 Cholesterol.total/Denise sterol in HDL [Mass ratio] 3.7 {ratio} [facility] Serum or plasma urea nitroge n measurement (mass/volume)Ordered By: Julee Davies on 05-27-2021 Urea nitrogen [Mass/Vol] 38 mg/dL 9-23 [facility] TSH DL <= 0.005 mIU/L QnOrde red By: Julee Davies on 05-27-2021 TSH Qn 4.10 m[IU]/L 0.45-5.33 [facility] Triglyceride [Mass/volume] i n Serum or PlasmaOrdered By: Julee Davies on 05-27-2021 Triglyceride [Mass/Vol] 136 mg/dL 35-149 [facility] Comment on above: TRIG ATP III CLASSIF ICATIONTRIG less than 150 mg/dL NormalTRIG 150-199 mg/dL Borderline highTRIG 200-500 mg/dL High TRIG greater than 500 mg/dL Very highStandard traceable to the Center for Disease Conrtrol and Prevention (CDC) test method. Coronavirus 2019 RNA by PCR, Screening Asymptomticon 12-24-2020 Date and time of symptom onset Canceled [facility] [address] DO Work Phone: Coronavirus 2019 RNA by PCR, Screening Asymptomtic Not detected Normal See Below [facility] DO Work Phone: Comment on above: SOURCE: Nasal, Nasop haryngealReference Range: Not Detected.This test has received [facility] Emergency Use Authorization (EUA) and has been verified by [facility] ([facility]). This test is only authorized for the duration of time that circumstances exist to justify the authorization of the emergency use of in vitro diagnostic tests for the detection of SARS-CoV-2 virus and/or diagnosis of COVID-19 infection under section 564(b)(1) of the Act, 21 U.S.C. 360bbb-3(b)(1), unless the authorization is terminated or revoked sooner. [facility] is certified under CLIA-88 as qualified to perform high complexity testing. Testing is performed in the [facility] located at [address] [place] [address].SARS-CoV-2/Flu/RSV Multiplex Test: Fact sheet for providers: https://www.fda.gov/media/523279/downloadFact sheet for patients: https://www.fda.gov/media/265220/download Coronavirus 2019 RNA by PCR, Screening Asymptomtic Canceled [facility] [facility] [address] DO Work Phone: Comment on above: SOURCE: Nasal, Nasop haryngeal.This test has received FDA Emergency Use Authorization (EUA) and has been verified by [facility] ([facility]). This test is only authorized for the duration of time that circumstances exist to justify the authorization of the emergency use of in vitro diagnostic tests for the detection of SARS-CoV-2 virus and/or diagnosis of COVID-19 infection under section 564(b)(1) of the Act, 21 U.S.C. 360bbb-3(b)(1), unless the authorization is terminated or revoked sooner. [facility] is certified under CLIA-88 as qualified to perform high complexity testing. Testing is performed in the [facility] located at [address] [place] [address].SARS-CoV-2/Flu/RSV Multiplex Test: Fact sheet for providers: https://www.fda.gov/media/855736/downloadFact sheet for patients: https://www.fda.gov/media/479467/download Laboratory - Chemistry and C hemistry - challengeon 12-24-2020 Glucose [Mass/Vol] 203 mg/dL above high threshold 74 - 99 [facility] [address] DO Work Phone: Laboratory - Hematology and Cell countson 12-24-2020 Erythrocyte distribution width (RBC) [Ratio] 12.7 % See Below [facility] [facility] [address] DO Work Phone: Comment on above: Reference Range: 11. 5 - 14.5 Hematocrit (Bld) [Volume fraction] 35.7 % below low threshold See Below [facility] [address] DO Work Phone: Comment on above: Reference Range: 41. 0 - 52.0 Hemoglobin (Bld) [Mass/Vol] 11.7 g/dL below low threshold See Below [facility] [address] DO Work Phone: Comment on above: Reference Range: 13. 5 - 17.5 MCHC (RBC) [Mass/Vol] 32.8 g/dL See Below [facility] [address] DO Work Phone: Comment on above: Reference Range: 32. 0 - 36.0 MCV (RBC) [Entitic vol] 91 fL 80 - 100 [facility] DO Work Phone: Platelets (Bld) [#/Vol] 105 10*3/uL below lo w threshold 150 - 450 [facility] [facility] [address] DO Work Phone: [phone] RBC (Bld) [#/Vol] 3.92 {x10E12/L} below low threshold See Below [facility] [facility] [address] DO Work Phone: Comment on above: Reference Range: 4.5 0 - 5.90 WBC (Bld) [#/Vol] 5.1 10*3/uL 4.4 - 11.3 [facility] [address] DO Work Phone: [phone] No Panel Informationon 12-24 Please click on the link to view the study images Normal [facility] DO Work Phone: 0.0 {/100_WBC} 0.0-0.0 [facility] [facility] [address] DO Work Phone: [phone] Renal Function Panelon 12-24 Albumin BCP dye [Mass/Vol] 3.6 g/dL 3.4 - 5.0 [facility] DO Work Phone: Anion gap [Moles/Vol] 15 mmol/L 10 - 20 [facility] DO Work Phone: [phone] Calcium [Mass/Vol] 9.0 mg/dL 8.6 - 10.6 [facility] [address] DO Work Phone: [phone] Chloride [Moles/Vol] 109 mmol/L above high threshold 98 - 107 [facility] DO Work Phone: CO2 [Moles/Vol] 24 mmol/L 21 - 32 [facility] [facility] [address] DO Work Phone: Creatinine [Mass/Vol] 1.77 mg/dL above high threshold See Below [facility] [address] DO Work Phone: Comment on above: Reference Range: 0.5 0 - 1.30 Glucose [Mass/Vol] 195 mg/dL above high threshold 74 - 99 [facility] DO Work Phone: Phosphate [Mass/Vol] 2.9 mg/dL 2.5 - 4.9 [facility]diolo [facility] [address] DO Work Phone: Comment on above: The performance waqar acteristics of phosphorus testing in heparinized plasma have been validated by the individual laboratory site where testing is performed. Testing on heparinized plasma is not approved by the FDA; however, such approval is not necessary. Potassium [Moles/Vol] 4.5 mmol/L 3.5 - 5.3 [facility] 260 DO Work Phone: Sodium [Moles/Vol] 143 mmol/L 136 - 145 [facility] 260 DO Work Phone: Urea nitrogen [Mass/Vol] 49 mg/dL above high threshold 6 - 23 [facility] 260 DO Work Phone: Renal Function Panel 45 {mL/min/1.73m2} Abnormal >60 [facility] [facility] 260 DO Work Phone: Comment on above: CALCULATIONS OF ERNST MATED GFR ARE PERFORMED USING THE MDRD STUDY EQUATION FOR THE IDMS-TRACEABLE CREATININE METHODS. CLIN CHEM 2007;53:766-72 Renal Function Panel 37 {mL/min/1.73m2} Abnormal >60 [facility] [facility] 260 DO Work Phone: Tacrolimuson 12-24-2020 Tacrolimus (Bld) [Mass/Vol] 5.4 ng/mL 2.0 - 15.0 [facility] 260 DO Work Phone: Comment on above: NOTE: Result was obt ained using a chemiluminescent microparticle immunoassay (CMIA) on the [employer] system.Optimal therapeutic ranges for immuno-suppressant drugs depend upon an individualpatient's current clinical state, type oforgan transplant, time post-transplant,co-administration of other immunosuppressants,and other clinical factors. The results ofthis test should be correlated with additionalclinical and laboratory data before changesin treatment regimens are made. CT Head without Contraston 1 CT Head limited WO contrast Normal [facility] 260 DO Work Phone: [phone] Laboratory - Chemistry and C hemistry - challengeon 12-23-2020 Glucose [Mass/Vol] 151 mg/dL above high threshold 74 - 99 [facility] 260 DO Work Phone: [phone] Glucose [Mass/Vol] 241 mg/dL above high threshold 74 - 99 [facility] [facility] 260 DO Work Phone: [phone] Glucose [Mass/Vol] 195 mg/dL above high threshold 74 - 99 [facility] [facility] 260 DO Work Phone: [phone] Glucose [Mass/Vol] 160 mg/dL above high threshold 74 - 99 [facility] [facility] 260 DO Work Phone: [phone] Laboratory - Hematology and Cell countson 12-23-2020 Erythrocyte distribution width (RBC) [Ratio] 12.5 % See Below [facility] [facility] 260 DO Work Phone: [phone] Comment on above: Reference Range: 11. 5 - 14.5 Hematocrit (Bld) [Volume fraction] 34.3 % below low threshold See Below [facility] [facility] 260 DO Work Phone: [phone] Comment on above: Reference Range: 41. 0 - 52.0 Hemoglobin (Bld) [Mass/Vol] 11.1 g/dL below low threshold See Below [facility] 260 DO Work Phone: [phone] Comment on above: Reference Range: 13. 5 - 17.5 MCHC (RBC) [Mass/Vol] 32.4 g/dL See Below MG- [facility] 260 DO Work Phone: [phone] Comment on above: Reference Range: 32. 0 - 36.0 MCV (RBC) [Entitic vol] 90 fL 80 - 100 M [facility] 260 DO Work Phone: [phone] Platelets (Bld) [#/Vol] 106 10*3/uL below lo w threshold 150 - 450 [facility] [facility] 260 DO Work Phone: [phone] RBC (Bld) [#/Vol] 3.83 {x10E12/L} below low threshold See Below [facility] 260 DO Work Phone: [phone] Comment on above: Reference Range: 4.5 0 - 5.90 WBC (Bld) [#/Vol] 5.2 10*3/uL 4.4 - 11.3 [facility] [facility] 260 DO Work Phone: [phone] No Panel Informationon 12-23 0.0 {/100_WBC} 0.0-0.0 [facility] 260 DO Work Phone: [phone] Renal Function Panelon 12-23 Albumin BCP dye [Mass/Vol] 3.6 g/dL 3.4 - 5.0 [facility] [facility] 260 DO Work Phone: [phone] Anion gap [Moles/Vol] 14 mmol/L 10 - 20 MG- [facility] 260 DO Work Phone: [phone] Calcium [Mass/Vol] 8.9 mg/dL 8.6 - 10.6 [facility] [facility] 260 DO Work Phone: [phone] Chloride [Moles/Vol] 109 mmol/L above high threshold 98 - 107 [facility] [facility] 260 DO Work Phone: [phone] CO2 [Moles/Vol] 23 mmol/L 21 - 32 [facility] 260 DO Work Phone: [phone] Creatinine [Mass/Vol] 1.71 mg/dL above high threshold See Below [facility] 260 DO Work Phone: Comment on above: Reference Range: 0.5 0 - 1.30 Glucose [Mass/Vol] 146 mg/dL above high threshold 74 - 99 [facility] [facility] 260 DO Work Phone: Phosphate [Mass/Vol] 2.8 mg/dL 2.5 - 4.9 [facility] 260 DO Work Phone: Comment on above: The performance waqar acteristics of phosphorus testing in heparinized plasma have been validated by the individual laboratory site where testing is performed. Testing on heparinized plasma is not approved by the FDA; however, such approval is not necessary. Potassium [Moles/Vol] 4.2 mmol/L 3.5 - 5.3 [facility]- [facility] [facility] 260 DO Work Phone: Sodium [Moles/Vol] 142 mmol/L 136 - 145 [facility] [facility] 260 DO Work Phone: Urea nitrogen [Mass/Vol] 50 mg/dL above high threshold 6 - 23 [facility] [facility] 260 DO Work Phone: Renal Function Panel 47 {mL/min/1.73m2} Abnormal >60 [facility] [facility] 260 DO Work Phone: Comment on above: CALCULATIONS OF ERNST MATED GFR ARE PERFORMED USING THE MDRD STUDY EQUATION FOR THE IDMS-TRACEABLE CREATININE METHODS. CLIN CHEM 2007;53:766-72 Renal Function Panel 39 {mL/min/1.73m2} Abnormal >60 [facility] [facility] 260 DO Work Phone: Tacrolimuson 12-23-2020 Tacrolimus (Bld) [Mass/Vol] 5.9 ng/mL 2.0 - 15.0 [facility] [facility] 260 DO Work Phone: Comment on above: NOTE: Result was obt ained using a chemiluminescent microparticle immunoassay (CMIA) on the [employer] system.Optimal therapeutic ranges for immuno-suppressant drugs depend upon an individualpatient's current clinical state, type oforgan transplant, time post-transplant,co-administration of other immunosuppressants,and other clinical factors. The results ofthis test should be correlated with additionalclinical and laboratory data before changesin treatment regimens are made. Laboratory - Chemistry and C hemistry - challengeon 12-22-2020 Glucose [Mass/Vol] 160 mg/dL above high threshold 74 - 99 [facility] 260 DO Work Phone: Glucose [Mass/Vol] 146 mg/dL above high threshold 74 - 99 [facility] 260 DO Work Phone: [phone] Glucose [Mass/Vol] 217 mg/dL above high threshold 74 - 99 [facility] 260 DO Work Phone: [phone] Glucose [Mass/Vol] 145 mg/dL above high threshold 74 - 99 [facility] 260 DO Work Phone: Glucose [Mass/Vol] 142 mg/dL above high threshold 74 - 99 [facility] [facility] 260 DO Work Phone: Laboratory - Hematology and Cell countson 12-22-2020 Erythrocyte distribution width (RBC) [Ratio] 12.6 % See Below [facility] [facility] 260 DO Work Phone: Comment on above: Reference Range: 11. 5 - 14.5 Hematocrit (Bld) [Volume fraction] 33.0 % below low threshold See Below [facility] [facility] 260 DO Work Phone: Comment on above: Reference Range: 41. 0 - 52.0 Hemoglobin (Bld) [Mass/Vol] 10.7 g/dL below low threshold See Below [facility] 260 DO Work Phone: Comment on above: Reference Range: 13. 5 - 17.5 MCHC (RBC) [Mass/Vol] 32.4 g/dL See Below [facility]- [facility] 260 DO Work Phone: [phone] Comment on above: Reference Range: 32. 0 - 36.0 MCV (RBC) [Entitic vol] 91 fL 80 - 100 M [facility] [facility] 260 DO Work Phone: [phone] Platelets (Bld) [#/Vol] 107 10*3/uL below lo w threshold 150 - 450 [facility] [facility] 260 DO Work Phone: [phone] RBC (Bld) [#/Vol] 3.62 {x10E12/L} below low threshold See Below [facility] [facility] 260 DO Work Phone: [phone] Comment on above: Reference Range: 4.5 0 - 5.90 WBC (Bld) [#/Vol] 5.0 10*3/uL 4.4 - 11.3 [facility] [facility] 260 DO Work Phone: [phone] No Panel Informationon 12-22 0.0 {/100_WBC} 0.0-0.0 [facility] [facility] 260 DO Work Phone: [phone] Renal Function Panelon 12-22 Albumin BCP dye [Mass/Vol] 3.5 g/dL 3.4 - 5.0 [facility] 260 DO Work Phone: [phone] Anion gap [Moles/Vol] 15 mmol/L 10 - 20 MG- [facility] 260 DO Work Phone: [phone] Calcium [Mass/Vol] 8.9 mg/dL 8.6 - 10.6 [facility] [facility] 260 DO Work Phone: [phone] Chloride [Moles/Vol] 111 mmol/L above high threshold 98 - 107 [facility] [facility] 260 DO Work Phone: [phone] CO2 [Moles/Vol] 23 mmol/L 21 - 32 [facility] [facility] 260 DO Work Phone: [phone] Creatinine [Mass/Vol] 2.04 mg/dL above high threshold See Below [facility] [facility] 260 DO Work Phone: Comment on above: Reference Range: 0.5 0 - 1.30 Glucose [Mass/Vol] 131 mg/dL above high threshold 74 - 99 [facility] 260 DO Work Phone: Phosphate [Mass/Vol] 3.3 mg/dL 2.5 - 4.9 [facility] [facility] 260 DO Work Phone: Comment on above: The performance waqar acteristics of phosphorus testing in heparinized plasma have been validated by the individual laboratory site where testing is performed. Testing on heparinized plasma is not approved by the FDA; however, such approval is not necessary. Potassium [Moles/Vol] 4.1 mmol/L 3.5 - 5.3 MG- [facility] 260 DO Work Phone: Sodium [Moles/Vol] 145 mmol/L 136 - 145 [facility] [facility] 260 DO Work Phone: Urea nitrogen [Mass/Vol] 64 mg/dL above high threshold 6 - 23 [facility] [facility] 260 DO Work Phone: Renal Function Panel 39 {mL/min/1.73m2} Abnormal >60 [facility] [facility] 260 DO Work Phone: Comment on above: CALCULATIONS OF ERNST MATED GFR ARE PERFORMED USING THE MDRD STUDY EQUATION FOR THE IDMS-TRACEABLE CREATININE METHODS. CLIN CHEM 2007;53:766-72 Renal Function Panel 32 {mL/min/1.73m2} Abnormal >60 [facility] [facility] 260 DO Work Phone: Tacrolimuson 12-22-2020 Tacrolimus (Bld) [Mass/Vol] 5.5 ng/mL 2.0 - 15.0 [facility] 260 DO Work Phone: Comment on above: NOTE: Result was obt ained using a chemiluminescent microparticle immunoassay (CMIA) on the [employer] system.Optimal therapeutic ranges for immuno-suppressant drugs depend upon an individualpatient's current clinical state, type oforgan transplant, time post-transplant,co-administration of other immunosuppressants,and other clinical factors. The results ofthis test should be correlated with additionalclinical and laboratory data before changesin treatment regimens are made. CT Chest Abdomen Pelvis wo C ontraston 12-21-2020 CT Chest and Abdomen and Pelvis WO contrast Normal [facility] 260 DO Work Phone: Hemoglobin A1Con 12-21-2020 Glucose [Mass/Vol] 148 mg/dL [facility] 260 DO Work Phone: HbA1c (Bld) [Mass fraction] Canceled [facility] [facility] 260 DO Work Phone: Comment on above: Diagnosis of Diabete s-Adults Non-Diabetic: < or = 5.6% Increased risk for developing diabetes: 5.7-6.4% Diagnostic of diabetes: > or = 6.5%. Monitoring of Diabetes Age (y) Therapeutic Goal (%) Adults: >18 <7.0 Pediatrics: 13-18 <7.5 7-12 <8.0 0- 6 7.5-8.5 [employer] [place] [employer]. Diabetes Care 33(S1), Mar 2009. HbA1c (Bld) [Mass fraction] 6.8 % Abnormal [facility] 260 DO Work Phone: Comment on above: Diagnosis of Diabete s-Adults Non-Diabetic: < or = 5.6% Increased risk for developing diabetes: 5.7-6.4% Diagnostic of diabetes: > or = 6.5%. Monitoring of Diabetes Age (y) Therapeutic Goal (%) Adults: >18 <7.0 Pediatrics: 13-18 <7.5 7-12 <8.0 0- 6 7.5-8.5 [place] [employer]. Diabetes Care 33(S1), Mar 2009. Hemoglobin A1C Canceled [facility] [facility] 260 DO Work Phone: Laboratory - Chemistry and C hemistry - challengeon 12-21-2020 Glucose [Mass/Vol] 191 mg/dL above high threshold 74 - 99 [facility] [facility] 260 DO Work Phone: Glucose [Mass/Vol] 203 mg/dL above high threshold 74 - 99 [facility] [facility] 260 DO Work Phone: [phone] Glucose [Mass/Vol] 229 mg/dL above high threshold 74 - 99 [facility] [facility] 260 DO Work Phone: Glucose [Mass/Vol] 136 mg/dL above high threshold 74 - 99 [facility] [facility] 260 DO Work Phone: Laboratory - Hematology and Cell countson 12-21-2020 Erythrocyte distribution width (RBC) [Ratio] 12.8 % See Below [facility] 260 DO Work Phone: Comment on above: Reference Range: 11. 5 - 14.5 Hematocrit (Bld) [Volume fraction] 35.6 % below low threshold See Below [facility] 260 DO Work Phone: Comment on above: Reference Range: 41. 0 - 52.0 Hemoglobin (Bld) [Mass/Vol] 12.0 g/dL below low threshold See Below [facility] 260 DO Work Phone: Comment on above: Reference Range: 13. 5 - 17.5 MCHC (RBC) [Mass/Vol] 33.7 g/dL See Below MG- [facility] [facility] 260 DO Work Phone: Comment on above: Reference Range: 32. 0 - 36.0 MCV (RBC) [Entitic vol] 89 fL 80 - 100 M [facility] [facility] 260 DO Work Phone: [phone] Platelets (Bld) [#/Vol] 124 10*3/uL below lo w threshold 150 - 450 [facility] [facility] 260 DO Work Phone: [phone] RBC (Bld) [#/Vol] 4.01 {x10E12/L} below low threshold See Below [facility] [facility] 260 DO Work Phone: [phone] Comment on above: Reference Range: 4.5 0 - 5.90 WBC (Bld) [#/Vol] 6.2 10*3/uL 4.4 - 11.3 [facility] [facility] 260 DO Work Phone: [phone] No Panel Informationon 12-21 0.0 {/100_WBC} 0.0-0.0 [facility] [facility] 260 DO Work Phone: [phone] Renal Function Panelon 12-21 Albumin BCP dye [Mass/Vol] 3.8 g/dL 3.4 - 5.0 [facility] [facility] 260 DO Work Phone: [phone] Anion gap [Moles/Vol] 15 mmol/L 10 - 20 MG- [facility] [facility] 260 DO Work Phone: [phone] Calcium [Mass/Vol] 8.8 mg/dL 8.6 - 10.6 [facility] [facility] 260 DO Work Phone: [phone] Chloride [Moles/Vol] 110 mmol/L above high threshold 98 - 107 [facility] [facility] 260 DO Work Phone: [phone] CO2 [Moles/Vol] 23 mmol/L 21 - 32 [facility] [facility] 260 DO Work Phone: [phone] Creatinine [Mass/Vol] 2.22 mg/dL above high threshold See Below [facility] [facility] 260 DO Work Phone: [phone] Comment on above: Reference Range: 0.5 0 - 1.30 Glucose [Mass/Vol] 114 mg/dL above high threshold 74 - 99 [facility] [facility] 260 DO Work Phone: Phosphate [Mass/Vol] 3.6 mg/dL 2.5 - 4.9 MG-[facility] [facility] 260 DO Work Phone: Comment on above: The performance waqar acteristics of phosphorus testing in heparinized plasma have been validated by the individual laboratory site where testing is performed. Testing on heparinized plasma is not approved by the FDA; however, such approval is not necessary. Potassium [Moles/Vol] 4.1 mmol/L 3.5 - 5.3 MG- [facility] [facility] 260 DO Work Phone: Sodium [Moles/Vol] 144 mmol/L 136 - 145 [facility] [facility] 260 DO Work Phone: Urea nitrogen [Mass/Vol] 68 mg/dL above high threshold 6 - 23 [facility] [facility] 260 DO Work Phone: Renal Function Panel 35 {mL/min/1.73m2} Abnormal >60 [facility] 260 DO Work Phone: Comment on above: CALCULATIONS OF ERNST MATED GFR ARE PERFORMED USING THE MDRD STUDY EQUATION FOR THE IDMS-TRACEABLE CREATININE METHODS. CLIN CHEM 2007;53:766-72 Renal Function Panel 29 {mL/min/1.73m2} Abnormal >60 [facility] [facility] 260 DO Work Phone: Tacrolimuson 12-21-2020 Tacrolimus (Bld) [Mass/Vol] 6.8 ng/mL 2.0 - 15.0 [facility] [facility] 260 DO Work Phone: Comment on above: NOTE: Result was obt ained using a chemiluminescent microparticle immunoassay (CMIA) on the [employer] system.Optimal therapeutic ranges for immuno-suppressant drugs depend upon an individualpatient's current clinical state, type oforgan transplant, time post-transplant,co-administration of other immunosuppressants,and other clinical factors. The results ofthis test should be correlated with additionalclinical and laboratory data before changesin treatment regimens are made. Coronavirus 2019 RNA by PCR, Symptomaticon 12-20-2020 Coronavirus 2019 RNA by PCR, Symptomatic Not detected Normal See Below [facility] [facility] 260 DO Work Phone: Comment on above: SOURCE: Nasal, Nasop haryngealReference Range: Not Detected.This test has received FDA Emergency Use Authorization (EUA) and has been verified by [facility] ([facility]). This test is only authorized for the duration of time that circumstances exist to justify the authorization of the emergency use of in vitro diagnostic tests for the detection of SARS-CoV-2 virus and/or diagnosis of COVID-19 infection under section 564(b)(1) of the Act, 21 U.S.C. 360bbb-3(b)(1), unless the authorization is terminated or revoked sooner. [facility] is certified under CLIA-88 as qualified to perform high complexity testing. Testing is performed in the [facility] located at [address] [place] [address].SARS-CoV-2/Flu/RSV Multiplex Test: Fact sheet for providers: https://www.fda.gov/media/203602/downloadFact sheet for patients: https://www.fda.gov/media/805344/download Date and time of symptom onset Canceled [facility] 260 DO Work Phone: Coronavirus 2019 RNA by PCR, Symptomatic Canceled [facility] [facility] 260 DO Work Phone: Comment on above: SOURCE: Nasal, Nasop haryngeal.This assay is designed to detect the ORF1ab and/or S genes of SARS-CoV-2 via nucleic acid amplification. A Not Detected result does not preclude 2019-nCoV infection since the adequacy of sample collection and/or low viral burden may result in presence of viral nucleic acids below the clinical sensitivity of this test method. Fact sheet for providers: www.fda.gov/media/463564/downloadFact sheet for patients: www.fda.gov/media/288731/downloadThis test has received FDA Emergency Use Authorization (EUA) and has been verified by [facility] ([facility]). This test is only authorized for the duration of time that circumstances exist to justify the authorization of the emergency use of in vitro diagnostic tests for the detection of SARS-CoV-2 virus and/or diagnosis of COVID-19 infection under section 564(b)(1) of the Act, 21 U.S.C. 360bbb-3(b)(1), unless the authorization is terminated or revoked sooner. [facility] is certified under CLIA-88 as qualified to perform high complexity testing. Testing is performed in the [facility] laboratories located at [address] [place] [address]. Folate, Serumon 12-20-2020 Folate [Mass/Vol] ng/mL >5.0 MG-[facility] [facility] 260 DO Work Phone: Comment on above: Low <3.4Borderline 3 .4-5.0Normal >5.0. Biotin interference may cause falsely elevated results. Patients taking a Biotin dose of up to 5 mg/day should refrain from taking Biotin for 24 hours before sample collection. Providers may contact their local laboratory for further information. Laboratory - Chemistry and C hemistry - challengeon 12-20-2020 Glucose [Mass/Vol] 140 mg/dL above high threshold 74 - 99 [facility] 260 DO Work Phone: TSH Qn 2.00 m[IU]/L See Below [facility] [facility] 260 DO Work Phone: Comment on above: Reference Range: 0.4 4 - 3.98 TSH testing is performed using different testing methodology at [facility] than at other [facility]. Direct result comparisons should only be made within the same method. Laboratory - Coagulationon 1 aPTT Coag (PPP) [Time] Canceled MG -[facility] 260 DO Work Phone: Comment on above: THE APTT IS NO LONGE R USED FOR MONITORING UNFRACTIONATED HEPARIN THERAPY. FOR MONITORING HEPARIN THERAPY, USE THE HEPARIN ASSAY. INR Coag (PPP) [Relative time] Canceled [facility] 260 DO Work Phone: [phone] PT Coag (PPP) [Time] Canceled MG-[facility] [facility] 260 DO Work Phone: [phone] Laboratory - Hematology and Cell countson 12-20-2020 Erythrocyte distribution width (RBC) [Ratio] 12.9 % See Below [facility] 260 DO Work Phone: [phone] Comment on above: Reference Range: 11. 5 - 14.5 Hematocrit (Bld) [Volume fraction] 35.8 % below low threshold See Below [facility] [facility] 260 DO Work Phone: [phone] Comment on above: Reference Range: 41. 0 - 52.0 Hemoglobin (Bld) [Mass/Vol] 11.7 g/dL below low threshold See Below [facility] [facility] 260 DO Work Phone: [phone] Comment on above: Reference Range: 13. 5 - 17.5 MCHC (RBC) [Mass/Vol] 32.7 g/dL See Below MG- [facility] [facility] 260 DO Work Phone: [phone] Comment on above: Reference Range: 32. 0 - 36.0 MCV (RBC) [Entitic vol] 90 fL 80 - 100 M [facility] [facility] 260 DO Work Phone: [phone] Platelets (Bld) [#/Vol] 131 10*3/uL below lo w threshold 150 - 450 [facility] [facility] 260 DO Work Phone: [phone] RBC (Bld) [#/Vol] 3.97 {x10E12/L} below low threshold See Below [facility] [facility] 260 DO Work Phone: Comment on above: Reference Range: 4.5 0 - 5.90 WBC (Bld) [#/Vol] 7.3 10*3/uL 4.4 - 11.3 MG-[facility] 260 DO Work Phone: Lactate, Levelon 12-20-2020 Lactate [Moles/Vol] 1.0 mmol/L 0.4 - 2.0 MG-Ca rdiolo gy-[place] 260 DO Work Phone: Comment on above: Venipuncture immedia tely after or during the administration of Metamizole may lead to falsely low results. Testing should be performed immediately prior to Metamizole dosing. Magnesium, Serumon Magnesium [Mass/Vol] 2.65 mg/dL above high threshold See Below [facility] 260 DO Work Phone: Comment on above: Reference Range: 1.6 0 - 2.40 No Panel Informationon 12-20 82 pg/mL 0 - 99 [facility] 260 DO Work Phone: Comment on above: . <100 pg/mL - Heart failure [phone] pg/mL - Intermediate probability of acute heart. failure exacerbation. Correlate with clinical. context and patient history. >=300 pg/mL - Heart Failure likely. Correlate with clinical. context and patient history. Biotin interference may cause falsely decreased results. Patients taking a Biotin dose of up to 5 mg/day should refrain from taking Biotin for 24 hours before sample collection. Providers may contact their local laboratory for further information. 0.0 {/100_WBC} 0.0-0.0 MG-[facility]iol [facility] 260 DO Work Phone: Radiologyon 12-20-2020 XR Abdomen AP Normal [facility] [facility] 260 DO Work Phone: XR Chest Single view Normal MG-C [facility] 260 DO Work Phone: Renal Function Panelon 12-20 Albumin BCP dye [Mass/Vol] 3.9 g/dL 3.4 - 5.0 [facility] 260 DO Work Phone: [phone] Anion gap [Moles/Vol] 17 mmol/L 10 - 20 MG- [facility] 260 DO Work Phone: [phone] Calcium [Mass/Vol] 9.2 mg/dL 8.6 - 10.6 MG-[facility] [facility] 260 DO Work Phone: [phone] Chloride [Moles/Vol] 112 mmol/L above high threshold 98 - 107 [facility] [facility] 260 DO Work Phone: [phone] CO2 [Moles/Vol] 24 mmol/L 21 - 32 MG-[facility] [facility] 260 DO Work Phone: [phone] Creatinine [Mass/Vol] 2.40 mg/dL above high threshold See Below [facility] [facility] 260 DO Work Phone: [phone] Comment on above: Reference Range: 0.5 0 - 1.30 Glucose [Mass/Vol] 211 mg/dL above high threshold 74 - 99 [facility] 260 DO Work Phone: [phone] Phosphate [Mass/Vol] 4.5 mg/dL 2.5 - 4.9 MG-[facility] [facility] 260 DO Work Phone: [phone] Comment on above: The performance waqar acteristics of phosphorus testing in heparinized plasma have been validated by the individual laboratory site where testing is performed. Testing on heparinized plasma is not approved by the FDA; however, such approval is not necessary. Potassium [Moles/Vol] 4.8 mmol/L 3.5 - 5.3 MG- [facility] 260 DO Work Phone: [phone] Sodium [Moles/Vol] 148 mmol/L above high threshold 136 - 145 [facility] [facility] 260 DO Work Phone: [phone] Urea nitrogen [Mass/Vol] 74 mg/dL above high threshold 6 - 23 [facility] [facility] 260 DO Work Phone: Renal Function Panel 31 {mL/min/1.73m2} Abnormal >60 [facility] [facility] 260 DO Work Phone: Comment on above: CALCULATIONS OF ERNST MATED GFR ARE PERFORMED USING THE MDRD STUDY EQUATION FOR THE IDMS-TRACEABLE CREATININE METHODS. CLIN CHEM 2007;53:766-72 Renal Function Panel 26 {mL/min/1.73m2} Abnormal >60 [facility] 260 DO Work Phone: Tacrolimuson 12-20-2020 Tacrolimus (Bld) [Mass/Vol] 5.6 ng/mL 2.0 - 15.0 [facility] 260 DO Work Phone: Comment on above: NOTE: Result was obt ained using a chemiluminescent microparticle immunoassay (CMIA) on the [employer] system.Optimal therapeutic ranges for immuno-suppressant drugs depend upon an individualpatient's current clinical state, type oforgan transplant, time post-transplant,co-administration of other immunosuppressants,and other clinical factors. The results ofthis test should be correlated with additionalclinical and laboratory data before changesin treatment regimens are made. Troponin I, Serumon 12-21-19 Troponin I.cardiac [Mass/Vol] 0.02 ng/mL See Below [facility] [facility] DO Work Phone: Comment on above: Reference Range: 0.0 0 - 0.03LESS THAN 0.04 NG/ML: NEGATIVEREPEAT TESTING IN THREE TO SIX HOURSIF CLINICALLY INDICATED.0.04 - 0.5 NG/ML: CONSISTENT WITH POSSIBLECARDIAC DAMAGE AND POSSIBLE INCREASEDCLINICAL RISK.SERIAL MEASUREMENTS MAY HELP ASSESS EXTENT OFMYOCARDIAL DAMAGE.>0.5 NG/ML: CONSISTENT WITH CARDIAC DAMAGE,INCREASED CLINICAL RISK AND MYOCARDIALINFARCTION. SERIAL MEASUREMENTS MAY HELPASSESS EXTENT OF MYOCARDIAL DAMAGE..Note: Troponin I testing is performed using different testing methodology at [facility] than at other [facility]. Direct result comparisons should only be made within the same method.. Biotin interference may cause falsely decreased results. Patients taking a Biotin dose of up to 5 mg/day should refrain from taking Biotin for 24 hours before sample collection. Providers may contact their laboratory for further information. Vitamin B12, Serumon 021 Cobalamin (Vitamin B12) [Mass/Vol] 1169 pg/mL above high threshold 211 - 911 [facility] [facility] [address] [employer] Work Phone: Basic Metabolic PanelOrdered By: Manuel Conner on 12-19-2020 Anion gap [Moles/Vol] 11 mmol/L 9 - 17 mmol/L [employer] Phone: Calcium [Mass/Vol] 9.3 mg/dL 8.6 - 10. 4 mg/dL [employer] Phone: Chloride [Moles/Vol] 107 mmol/L 98 - 10 7 mmol/L [employer] Phone: CO2 [Moles/Vol] 23 mmol/L 20 - 31 mmol/L [employer] Phone: Creatinine [Mass/Vol] 2.53 mg/dL High 0.70 - 1.20 mg/dL [employer] Phone: GFR 30 mL/min Low >60 [place] Phone: GFR Non- 25 mL/min Low >60 [employer] Phone: Glucose [Mass/Vol] 160 mg/dL High 70 - 99 mg/dL [employer] Phone: Interpretation and review of laboratory results Abnormal [employer] Phone: Potassium [Moles/Vol] 4.5 mmol/L 3.7 - 5.3 mmol/L [employer] Phone: Sodium [Moles/Vol] 141 mmol/L 135 - 144 mmol/L [employer] Phone: Urea nitrogen (BldV) [Mass/Vol] 76 mg/dL High 8 - 23 mg/dL [employer] Phone: Urea nitrogen/Creatinine (Bld) [Mass ratio] 30 High [employer] Phone: [employer] Phone: Laboratory - Chemistry and C hemistry - challengeOrdered By: Manuel Conner on 12-19-2020 GFR/1.73 sq M.predicted MDRD (S/P/Bld) [Vol rate/Area] [employer] Phone: Comment on above: Average GFR for 70 o r more years old: 75 mL/min/1.73sq m Chronic Kidney Disease: <60 mL/min/1.73sq m Kidney failure: <15 mL/min/1.73sq m eGFR calculated using average adult body mass. Additional eGFR calculator available at: http://www.[employer] [place]/Platiza_crcl_2012.htm Stage 1: Some kidney damage normal GFR Stage 2: Mild kidney damage GFR 60-89 Stage 3: Moderate kidney damage GFR 30-59 Stage 4: Severe kidney damage GFR 15-29 Stage 5: Severe kidney damage GFR <15 ESRD - chronic treatment by dialysis or transplant TroponinOrdered By: Manuel Conner on 12-19-2020 Interpretation and review of laboratory results Abnormal [employer] Phone: Troponin Interp NOT REPORTED [employer] Phone: Troponin T NOT REPORTED <0.03 ng/mL [employer] Phone: Troponin, High Sensitivity 57 ng/L Critically high 0 - 22 ng/L [employer] Phone: Comment on above: High Sensitivity Troponin values cannot be compared with other Troponin methodologies. Patients with high levels of Biotin oral intake (i.e >5mg/day) may have falsely decreased Troponin levels. Samples collected within 8 hours of biotin intake may require additional information for diagnosis. [employer] Phone: Basic Metabolic PanelOrdered By: Manuel Conner on 12-18-2020 Anion gap [Moles/Vol] 14 mmol/L 9 - 17 mmol/L [employer] Phone: Calcium [Mass/Vol] 9.3 mg/dL 8.6 - 10. 4 mg/dL [employer] Phone: Chloride [Moles/Vol] 104 mmol/L 98 - 10 7 mmol/L [employer] Phone: CO2 [Moles/Vol] 22 mmol/L 20 - 31 mmol/L [employer] Phone: Creatinine [Mass/Vol] 4.1 mg/dL High 0.70 - 1.20 mg/dL [employer] Phone: GFR 17 mL/min Low >60 [place] Phone: GFR Non- 14 mL/min Low >60 [employer] Phone: Glucose [Mass/Vol] 148 mg/dL High 70 - 99 mg/dL [employer] Phone: Potassium [Moles/Vol] 5.2 mmol/L 3.7 - 5.3 mmol/L [employer] Phone: Sodium [Moles/Vol] 140 mmol/L 135 - 144 mmol/L [employer] Phone: Urea nitrogen (BldV) [Mass/Vol] 87 mg/dL High 8 - 23 mg/dL [employer] Phone: Urea nitrogen/Creatinine (Bld) [Mass ratio] 21 High [employer] Phone: Brain Natriuretic PeptideOrd ered By: Manuel Conner on 12-18-2020 BNP Interpretation Pro-BNP Reference Range: [employer] Phone: Comment on above: Rule Out: <300 [place]agan Zone: Age <50 300-450 Age 50-75 300-900 Age >75 300-1800 Usually represents mild to moderate HF but other cardiopulmonary causes cannot be ruled out. Rule In: Age <50 >450 Age 50-75 >900 Age >75 >1800 Interpretation and review of laboratory results Abnormal [employer] Phone: Natriuretic peptide B (Bld) [Mass/Vol] 846 pg/mL High <300 [employer] Phone: Comment on above: Pro-BNP results halie ot be compared to BNP results. [employer] Phone: EKG Rhythm StripOrdered By: Unknown Result on 12-18-2020 [employer] Phone: [employer] Phone: Glucose, Whole BloodOrdered By: Manuel Conner on 12-18-2020 Glucose [Mass/Vol] 152 mg/dL High 74 - 100 mg/dL [employer] Phone: Interpretation and review of laboratory results Abnormal [employer] Phone: [employer] Phone: Laboratory - Chemistry and C hemistry - challengeOrdered By: Manuel Conner on 12-18-2020 GFR/1.73 sq M.predicted MDRD (S/P/Bld) [Vol rate/Area] [employer] Phone: Comment on above: Average GFR for 70 o r more years old: 75 mL/min/1.73sq m Chronic Kidney Disease: <60 mL/min/1.73sq m Kidney failure: <15 mL/min/1.73sq m eGFR calculated using average adult body mass. Additional eGFR calculator available at: http://www.AutoReflex.com.Finisar/multiple_crcl_2012.htm Stage 1: Some kidney damage normal GFR Stage 2: Mild kidney damage GFR 60-89 Stage 3: Moderate kidney damage GFR 30-59 Stage 4: Severe kidney damage GFR 15-29 Stage 5: Severe kidney damage GFR <15 ESRD - chronic treatment by dialysis or transplant No Panel InformationOrdered By: Manuel Conner on 12-18-2020 Interpretation and review of laboratory results Abnormal [employer] Phone: [employer] Phone: TroponinOrdered By: Manuel Conner on 12-18-2020 Troponin Interp NOT REPORTED [employer] Phone: Troponin T NOT REPORTED <0.03 ng/mL [employer] Phone: Troponin, High Sensitivity 71 ng/L Critically high 0 - 22 ng/L [employer] Phone: Comment on above: High Sensitivity Troponin values cannot be compared with other Troponin methodologies. Patients with high levels of Biotin oral intake (i.e >5mg/day) may have falsely decreased Troponin levels. Samples collected within 8 hours of biotin intake may require additional information for diagnosis. XR CHEST (SINGLE VIEW FRONTA L)Ordered By: Manuel Conner on 12-18-2020 Enteric tube tip is in the proximal stomach with the proximal side port likely in the distal esophagus. Consider advancement by 5-7 cm, if able. [employer] Phone: EXAMINATION: ONE XRA Y VIEW OF THE CHEST 12/18/2020 10:16 am COMPARISON: 12/18/2020, 12/17/2020 HISTORY: ORDERING SYSTEM PROVIDED HISTORY: NG tube placement TECHNOLOGIST PROVIDED HISTORY: NG tube placement FINDINGS: Enteric tube tip is in the proximal stomach with the proximal side port likely in the distal esophagus. Similar bibasilar opacities and mild interstitial prominence. Probable trace right effusion. No pneumothorax in the visualized portion of the chest, though a portion of the left lung apex is excluded from the field of view. Unchanged cardiomegaly. Bony thorax is without acute abnormality. [employer] Phone: Roger, Mhpn Incoming R adiant Results From [employer] - 12/18/2020 1:31 PM EDT EXAMINATION: ONE XRAY VIEW OF THE CHEST 12/18/2020 10:16 am COMPARISON: 12/18/2020, 12/17/2020 HISTORY: ORDERING SYSTEM PROVIDED HISTORY: NG tube placement TECHNOLOGIST PROVIDED HISTORY: NG tube placement FINDINGS: Enteric tube tip is in the proximal stomach with the proximal side port likely in the distal esophagus. Similar bibasilar opacities and mild interstitial prominence. Probable trace right effusion. No pneumothorax in the visualized portion of the chest, though a portion of the left lung apex is excluded from the field of view. Unchanged cardiomegaly. Bony thorax is without acute abnormality. IMPRESSION: Enteric tube tip is in the proximal stomach with the proximal side port likely in the distal esophagus. Consider advancement by 5-7 cm, if able. [employer] Phone: [employer] Phone: XR CHEST PORTABLEOrdered By: Manuel Conner on 12-18-2020 Mild prominence of interstitial markings suggests mild vascular congestion with mild streaky bibasilar atelectasis [employer] Phone: EXAMINATION: ONE XRA Y VIEW OF THE CHEST 12/18/2020 11:18 am COMPARISON: December 17, 2020, chest examination HISTORY: ORDERING SYSTEM PROVIDED HISTORY: Congestion TECHNOLOGIST PROVIDED HISTORY: Congestion FINDINGS: Median sternotomy. Stable cardiomegaly/mild tortuosity of the thoracic aorta Mild streaky bibasilar density. Mild prominence of interstitial markings Possible small right pleural effusion Degenerative changes of the thoracic spine/shoulders [employer] Phone: Roger, Mhpn Incoming R adiant Results From [employer] - 12/18/2020 11:26 AM EDT EXAMINATION: ONE XRAY VIEW OF THE CHEST 12/18/2020 11:18 am COMPARISON: December 17, 2020, chest examination HISTORY: ORDERING SYSTEM PROVIDED HISTORY: Congestion TECHNOLOGIST PROVIDED HISTORY: Congestion FINDINGS: Median sternotomy. Stable cardiomegaly/mild tortuosity of the thoracic aorta Mild streaky bibasilar density. Mild prominence of interstitial markings Possible small right pleural effusion Degenerative changes of the thoracic spine/shoulders IMPRESSION: Mild prominence of interstitial markings suggests mild vascular congestion with mild streaky bibasilar atelectasis [employer] Phone: [employer] Phone: APTTOrdered By: Manuel lew on 12-17-2020 aPTT Coag (Bld) [Time] 22.8 s Low [employer] Phone: Comment on above: IV Heparin Therapy Range: 62.0-94.0 Interpretation and review of laboratory results Abnormal [employer] Phone: [employer] Phone: Blood Gas, VenousOrdered By: Manuel Conner on 12-17-2020 Shilo Test NOT REPORTED [employer] Phone: Carboxyhemoglobin NOT REPORTED 0.0 - 5.0 % [employer] Phone: Comment on above: FIO2 NOT REPORTED [employer] Phone: HCO3 (Bld) [Moles/Vol] 21.9 mmol/L Low 24.0 - 30.0 mmol/L [employer] Phone: Interpretation and review of laboratory results Abnormal [employer] Phone: Methemoglobin NOT REPORTED 0.0 - 1.9 % [employer] Phone: Mode NOT REPORTED [employer] Phone: Negative Base Excess, [place] 5.7 mmol/L High 0.0 - 2.0 mmol/L [employer] Phone: NOTIFICATION NOT REPORTED [employer] Phone: NOTIFICATION TIME NOT REPORTED [employer] Phone: O2 Device/Flow/% NOT REPORTED [employer] Phone: Oxygen saturation in Blood 31.2 % Low 60.0 - 85.0 % [employer] Phone: Oxyhemoglobin NOT REPORTED 95.0 - 98.0 % [facility] Work Phone: pCO2, [place] 50.4 [facility] Work Phone: pCO2, [place], Temp Adj NOT REPORTED [facility] Work Phone: Peep/Cpap NOT REPORTED [facility] Work Phone: pH, [place] 7.255 Low [facility] Work Phone: pH, [place], Temp Adj NOT REPORTED [facility] Work Phone: pO2, [place] 22.6 Low [facility] Work Phone: pO2, [place], Temp Adj NOT REPORTED [facility] Work Phone: Positive Base Excess, [place] NOT REPORTED 0.0 - 2.0 mmol/L [facility] Work Phone: PSV NOT REPORTED [facility] Work Phone: Pt Temp 37.0 [facility] Work Phone: Pt. Position NOT REPORTED [facility] Work Phone: Respiratory Rate NOT REPORTED [facility] Work Phone: Sample Site NOT REPORTED [facility] Work Phone: Set Rate NOT REPORTED [facility] Work Phone: Text for Respiratory NOT REPORTED [facility] Work Phone: Total Hb NOT REPORTED 12.0 - 16.0 g/dl [facility] Work Phone: Total Rate NOT REPORTED [facility] Work Phone: VT NOT REPORTED [facility] Work Phone: [facility] Work Phone: Brain Natriuretic PeptideOrd ered By: Manuel Conner on 12-17-2020 BNP Interpretation Pro-BNP Reference Range: [employer] Phone: Comment on above: Rule Out: <300 Pagan Zone: Age <50 300-450 Age 50-75 300-900 Age >75 300-1800 Usually represents mild to moderate HF but other cardiopulmonary causes cannot be ruled out. Rule In: Age <50 >450 Age 50-75 >900 Age >75 >1800 Natriuretic peptide B (Bld) [Mass/Vol] 1428 pg/mL High <300 [employer] Phone: Comment on above: Pro-BNP results halie ot be compared to BNP results. CBC Auto DifferentialOrdered By: Manuel Conner on 12-17-2020 Absolute Eos # 0.03 [employer] Phone: Absolute Immature Granulocyte 0.03 [employer] Phone: Absolute Lymph # 0.96 Low [employer] Phone: Absolute Cloud # 0.52 [employer] Phone: Basophils (Bld) [#/Vol] 10*3/uL M [employer] Phone: Basophils/100 WBC (Bld) 0 % 0 - 2 % M [employer] Phone: Differential Type NOT REPORTED [employer] Phone: Eosinophils/100 WBC (Bld) 0 % Low 1 - 4 % [employer] Phone: Hematocrit (Bld) [Volume fraction] 37.2 % Low 40.7 - 50.3 % [employer] Phone: Hemoglobin.gastrointest inal spec 1 Ql (Stl) 11.5 g/dL Low 13.0 - 17.0 g/dL [employer] Phone: Immature granulocytes/100 WBC (Bld) 0 % 0 [employer] Phone: Interpretation and review of laboratory results Abnormal [employer] Phone: Lymphocytes/100 WBC (Bld) 11 % Low 24 - 43 % [employer] Phone: MCH (RBC) [Entitic mass] 28.5 pg 25.2 - 33.5 pg [employer] Phone: MCHC (RBC) [Mass/Vol] 30.9 g/dL 28.4 - 34.8 g/dL [employer] Phone: MCV (RBC) [Entitic vol] 92.3 fL 82.6 - 102.9 fL [employer] Phone: Monocytes/100 WBC (Bld) 6 % 3 - 12 % M [employer] Phone: NRBC Automated 0.0 0.0 per 100 WBC [employer] Phone: Platelet distribution width (Bld) [Ratio] 13.0 % 11.8 - 14.4 % [employer] Phone: Platelet Estimate NOT REPORTED [employer] Phone: Platelet mean volume (Bld) [Entitic vol] NOT REPORTED 8.1 - 13.5 fL [employer] Phone: Platelets (Bld) [#/Vol] See Reflexed IPF Result [employer] Phone: RBC (Bld) [#/Vol] 4.03 10*6/uL Low 4.21 - 5.77 m/uL [employer] Phone: RBC (Bld) [#/Vol] NOT REPORTED [employer] Phone: Segmented neutrophils/100 WBC (Bld) 82 % High 36 - 65 % [employer] Phone: Segs Absolute 6.94 [employer] Phone: WBC (Bld) [#/Vol] 8.5 10*3/uL [employer] Phone: WBC (Bld) [#/Vol] NOT REPORTED [employer] Phone: [employer] Phone: COVID-19, RapidOrdered By: Agnieszka yaritza Conner on 12-17-2020 SARS-CoV-2 (COVID-19) RNA JOYCE+probe Ql (Unsp spec) Not detected Not Detected [employer] Phone: Comment on above: Rapid NAAT: The specimen is NEGATIVE for SARS-CoV-2, the novel coronavirus associated with COVID-19. The ID NOW COVID-19 assay is designed to detect the virus that causes COVID-19 in patients with signs and symptoms of infection who are suspected of COVID-19. An individual without symptoms of COVID-19 and who is not shedding SARS-CoV-2 virus would expect to have a negative (not detected) result in this assay. Negative results should be treated as presumptive and, if inconsistent with clinical signs and symptoms or necessary for patient management, should be tested with an alternative molecular assay. Negative results do not preclude SARS-CoV-2 infection and should not be used as the sole basis for patient management decisions. Fact sheet for Healthcare Providers: https://www.fda.gov/media/055657/download Fact sheet for Patients: https://www.fda.gov/media/735507/download Methodology: Isothermal Nucleic Acid Amplification Specimen Description .NASOPHARYNGEAL SWAB [employer] Phone: [employer] Phone: CT HEAD WO CONTRASTOrdered B y: Manuel Conner on 12-17-2020 No acute intracrania l abnormality. 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 Minimal parenchymal volume loss. Minimal chronic microvascular disease. [employer] Phone: EXAMINATION: CT OF T HE HEAD WITHOUT CONTRAST 12/17/2020 9:21 am TECHNIQUE: CT of the head was performed without the administration of intravenous contrast. Dose modulation, iterative reconstruction, and/or weight based adjustment of the mA/kV was utilized to reduce the radiation dose to as low as reasonably achievable. COMPARISON: None. HISTORY: ORDERING SYSTEM PROVIDED HISTORY: ams TECHNOLOGIST PROVIDED HISTORY: ams Decision Support Exception - unselect if not a suspected or confirmed emergency medical condition->Emergency Medical Condition (MA) FINDINGS: BRAIN/VENTRICLES: There are old infarctions in the bilateral frontal and left parietal lobes and in the left head of caudate nucleus. No evidence of acute territorial infarction. There is minimal parenchymal volume loss. There is periventricular white matter low attenuation, likely related to minimal chronic microvascular disease. There is no acute intracranial hemorrhage, mass effect or midline shift. No abnormal extra-axial fluid collection. There is no evidence of hydrocephalus. ORBITS: The visualized portion of the orbits demonstrate no acute abnormality. SINUSES: The visualized paranasal sinuses and mastoid air cells demonstrate no acute abnormality. SOFT TISSUES/SKULL: No acute abnormality of the visualized skull or soft tissues. [employer] Phone: Roger, pn Incoming R adiant Results From [facility] - 12/17/2020 9:36 AM EDT EXAMINATION: CT OF THE HEAD WITHOUT CONTRAST 12/17/2020 9:21 am TECHNIQUE: CT of the head was performed without the administration of intravenous contrast. Dose modulation, iterative reconstruction, and/or weight based adjustment of the mA/kV was utilized to reduce the radiation dose to as low as reasonably achievable. COMPARISON: None. HISTORY: ORDERING SYSTEM PROVIDED HISTORY: ams TECHNOLOGIST PROVIDED HISTORY: ams Decision Support Exception - unselect if not a suspected or confirmed emergency medical condition->Emergency Medical Condition (MA) FINDINGS: BRAIN/VENTRICLES: There are old infarctions in the bilateral frontal and left parietal lobes and in the left head of caudate nucleus. No evidence of acute territorial infarction. There is minimal parenchymal volume loss. There is periventricular white matter low attenuation, likely related to minimal chronic microvascular disease. There is no acute intracranial hemorrhage, mass effect or midline shift. No abnormal extra-axial fluid collection. There is no evidence of hydrocephalus. ORBITS: The visualized portion of the orbits demonstrate no acute abnormality. SINUSES: The visualized paranasal sinuses and mastoid air cells demonstrate no acute abnormality. SOFT TISSUES/SKULL: No acute abnormality of the visualized skull or soft tissues. IMPRESSION: No acute intracranial abnormality. 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 Minimal parenchymal volume loss. Minimal chronic microvascular disease. [employer] Phone: [employer] Phone: Comprehensive Metabolic Pane l w/ Reflex to MGOrdered By: Manuel Conner on 12-17-2020 Albumin [Mass/Vol] 4 g/dL 3.5 - 5.2 g/dL [employer] Phone: Albumin/Globulin [Mass ratio] 1.3 {ratio} [employer] Phone: ALP (Bld) [Catalytic activity/Vol] 66 U/L 40 - 129 U/L [employer] Phone: ALT [Catalytic activity/Vol] 12 U/L 5 - 41 U/L [employer] Phone: Anion gap [Moles/Vol] 19 mmol/L High 9 - 17 mmol/L [employer] Phone: AST [Catalytic activity/Vol] 18 U/L <40 [employer] Phone: Bilirubin [Mass/Vol] 0.16 mg/dL Low 0.3 - 1 .2 mg/dL [employer] Phone: Calcium [Mass/Vol] 8.8 mg/dL 8.6 - 10. 4 mg/dL [employer] Phone: Chloride [Moles/Vol] 102 mmol/L 98 - 10 7 mmol/L [employer] Phone: CO2 [Moles/Vol] 19 mmol/L Low 20 - 31 mmol/L [employer] Phone: Creatinine [Mass/Vol] 6.59 mg/dL Critically high 0.7 0 - 1.20 mg/dL [employer] Phone: Free PSA/Total PSA [Mass fraction] 7.0 g/dL 6.4 - 8.3 g/dL [employer] Phone: [phone] GFR 10 mL/min Low >60 [employer] Work Phone: GFR Non- 8 mL/min Low >60 [employer] Phone: Glucose [Mass/Vol] 197 mg/dL High 70 - 99 mg/dL [employer] Phone: Potassium [Moles/Vol] 4.6 mmol/L 3.7 - 5.3 mmol/L [employer] Phone: Sodium [Moles/Vol] 140 mmol/L 135 - 144 mmol/L [employer] Phone: Urea nitrogen (BldV) [Mass/Vol] 96 mg/dL Critically high 8 - 23 mg/dL [employer] Phone: Urea nitrogen/Creatinine (Bld) [Mass ratio] 15 [employer] Phone: EKG 12 LeadOrdered By: Kathy Conner on 12-17-2020 Atrial Rate 85 BPM [employer] Phone: P [place] -15 degrees [employer] Phone: P-R Interval 224 ms [employer] Phone: Q-T Interval 414 ms [employer] Phone: QRS Duration 120 ms [employer] Phone: QTc Calculation (Bazett) 492 ms [employer] Phone: R [place] 99 degrees [employer] Phone: T [place] 44 degrees [employer] Phone: Ventricular Rate 85 BPM [employer] Phone: Sinus rhythm with 1s t degree A-V block Rightward axis Septal infarct , age undetermined Abnormal ECG No previous ECGs available Confirmed by JARON BERNARD ([id number]) on 12/17/2020 11:51:30 PM [employer] Phone: Roger, Mhpn Incoming E kg Results From [employer] [place] - 12/17/2020 11:51 PM EDT Sinus rhythm with 1st degree A-V block Rightward axis Septal infarct , age undetermined Abnormal ECG No previous ECGs available Confirmed by JARON BERNARD ([id number]) on 12/17/2020 11:51:30 PM [employer] Phone: [employer] Phone: Immature Platelet FractionOr dered By: Manuel Conner on 12-17-2020 Interpretation and review of laboratory results Abnormal [employer] Phone: Platelet, Fluorescence 110 Low [employer] Phone: Platelet, Immature Fraction 4.6 % 1.1 - 10.3 % [employer] Phone: [employer] Phone: Laboratory - Chemistry and C hemistry - challengeOrdered By: Manuel Conner on 12-17-2020 GFR/1.73 sq M.predicted MDRD (S/P/Bld) [Vol rate/Area] [employer] Phone: Comment on above: Average GFR for 70 o r more years old: 75 mL/min/1.73sq m Chronic Kidney Disease: <60 mL/min/1.73sq m Kidney failure: <15 mL/min/1.73sq m eGFR calculated using average adult body mass. Additional eGFR calculator available at: http://www.AutoReflex.com.Finisar/multiple_crcl_2012.htm Stage 1: Some kidney damage normal GFR Stage 2: Mild kidney damage GFR 60-89 Stage 3: Moderate kidney damage GFR 30-59 Stage 4: Severe kidney damage GFR 15-29 Stage 5: Severe kidney damage GFR <15 ESRD - chronic treatment by dialysis or transplant Lactic AcidOrdered By: Kathy Conner on 12-17-2020 Lactate [Moles/Vol] 1.3 mmol/L 0.5 - 2. 2 mmol/L [employer] Phone: [employer] Phone: LipaseOrdered By: Manuel dotson on 12-17-2020 Lipase [Catalytic activity/Vol] 64 U/L High 13 - 60 U/L [employer] Phone: MRA HEAD WO CONTRASTOrdered By: Manuel Conner on 12-17-2020 Occlusion of the lef t internal carotid artery, extending to the ICA terminus. Flow artifact in the proximal M1 segments of the bilateral MCAs and intracranial right ICA. The bilateral intracranial vertebral arteries are not imaged. [employer] Phone: EXAMINATION: MRA OF THE HEAD WITHOUT CONTRAST 12/17/2020 1:32 pm TECHNIQUE: MRA of the head was performed utilizing [id number] imaging with MIP images. No intravenous contrast was administered. COMPARISON: None HISTORY: ORDERING SYSTEM PROVIDED HISTORY: Stroke symptoms TECHNOLOGIST PROVIDED HISTORY: Stroke symptoms Decision Support Exception - unselect if not a suspected or confirmed emergency medical condition->Emergency Medical Condition (MA) FINDINGS: ANTERIOR CIRCULATION: There is flow artifact in the proximal M1 segments of the bilateral MCAs and intracranial right ICA. 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 No significant stenosis of the right intracranial internal carotid, bilateral anterior cerebral, or bilateral middle cerebral arteries. There is incidental fenestration at the anterior communicating artery, normal variant. POSTERIOR CIRCULATION: The bilateral intracranial vertebral arteries are not imaged. No significant stenosis of the basilar, or posterior cerebral arteries. No evidence of intracranial aneurysm. [employer] Phone: Roger, [facility] Incoming R adiant Results From [employer] - 12/17/2020 2:02 PM EDT EXAMINATION: MRA OF THE HEAD WITHOUT CONTRAST 12/17/2020 1:32 pm TECHNIQUE: MRA of the head was performed utilizing yjwn-va-qxsiab imaging with MIP images. No intravenous contrast was administered. COMPARISON: None HISTORY: ORDERING SYSTEM PROVIDED HISTORY: Stroke symptoms TECHNOLOGIST PROVIDED HISTORY: Stroke symptoms Decision Support Exception - unselect if not a suspected or confirmed emergency medical condition->Emergency Medical Condition (MA) FINDINGS: ANTERIOR CIRCULATION: There is flow artifact in the proximal M1 segments of the bilateral MCAs and intracranial right ICA. 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 No significant stenosis of the right intracranial internal carotid, bilateral anterior cerebral, or bilateral middle cerebral arteries. There is incidental fenestration at the anterior communicating artery, normal variant. POSTERIOR CIRCULATION: The bilateral intracranial vertebral arteries are not imaged. No significant stenosis of the basilar, or posterior cerebral arteries. No evidence of intracranial aneurysm. 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 Flow artifact in the proximal M1 segments of the bilateral MCAs and intracranial right ICA. The bilateral intracranial vertebral arteries are not imaged. [employer] Phone: [employer] Phone: MRI BRAIN WO CONTRASTOrdered By: Manuel Conner on 12-17-2020 Addendum by Cristhian Hardin MD on 12/17/2020 2:02 PM ADDENDUM: Absence of normal flow void in left vertebral artery, likely related to severe stenosis versus occlusion. [employer] Phone: No acute intracrania l abnormality. 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 Mild parenchymal volume loss. Mild chronic microvascular disease. 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 [employer] Phone: EXAMINATION: MRI OF THE BRAIN WITHOUT CONTRAST 12/17/2020 1:31 pm TECHNIQUE: Multiplanar multisequence MRI of the brain was performed without the administration of intravenous contrast. COMPARISON: CT head December 17, 2020 HISTORY: ORDERING SYSTEM PROVIDED HISTORY: Stroke symptoms TECHNOLOGIST PROVIDED HISTORY: Stroke symptoms Decision Support Exception - unselect if not a suspected or confirmed emergency medical condition->Emergency Medical Condition (MA) FINDINGS: INTRACRANIAL STRUCTURES/VENTRICLES: There is mild parenchymal volume loss. There is mild T2/FLAIR hyperintensity in the periventricular and subcortical white matter, likely related to mild chronic microvascular disease. There are old infarctions in the bilateral frontal lobes, left parietal lobe and the head of left caudate nucleus. There is no acute infarct. No mass effect or midline shift. No evidence of an acute intracranial hemorrhage. There is no evidence of hydrocephalus. The sellar/suprasellar regions appear unremarkable. There is absence of normal flow void in the left internal carotid artery, likely related to occlusion. ORBITS: The visualized portion of the orbits demonstrate no acute abnormality. SINUSES: There is scattered minimal mucosal thickening in the paranasal sinuses. The bilateral mastoid air cells are well aerated. BONES/SOFT TISSUES: The bone marrow signal intensity appears normal. The soft tissues demonstrate no acute abnormality. [employer] Phone: Roger, [facility] Incoming R adiant Results From [employer] - 12/17/2020 1:55 PM EDT EXAMINATION: MRI OF THE BRAIN WITHOUT CONTRAST 12/17/2020 1:31 pm TECHNIQUE: Multiplanar multisequence MRI of the brain was performed without the administration of intravenous contrast. COMPARISON: CT head December 17, 2020 HISTORY: ORDERING SYSTEM PROVIDED HISTORY: Stroke symptoms TECHNOLOGIST PROVIDED HISTORY: Stroke symptoms Decision Support Exception - unselect if not a suspected or confirmed emergency medical condition->Emergency Medical Condition (MA) FINDINGS: INTRACRANIAL STRUCTURES/VENTRICLES: There is mild parenchymal volume loss. There is mild T2/FLAIR hyperintensity in the periventricular and subcortical white matter, likely related to mild chronic microvascular disease. There are old infarctions in the bilateral frontal lobes, left parietal lobe and the head of left caudate nucleus. There is no acute infarct. No mass effect or midline shift. No evidence of an acute intracranial hemorrhage. There is no evidence of hydrocephalus. The sellar/suprasellar regions appear unremarkable. There is absence of normal flow void in the left internal carotid artery, likely related to occlusion. ORBITS: The visualized portion of the orbits demonstrate no acute abnormality. SINUSES: There is scattered minimal mucosal thickening in the paranasal sinuses. The bilateral mastoid air cells are well aerated. BONES/SOFT TISSUES: The bone marrow signal intensity appears normal. The soft tissues demonstrate no acute abnormality. IMPRESSION: No acute intracranial abnormality. 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 Mild parenchymal volume loss. Mild chronic microvascular disease. 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 [facility] Work Phone: [facility] Work Phone: Microscopic UrinalysisOrdere d By: Manuel Conner on 12-17-2020 - [facility] Work Phone: [phone] Amorphous, UA NOT REPORTED None [facility] Work Phone: [phone] Bacteria, UA NOT REPORTED None [facility] Work Phone: Casts UA NOT REPORTED /[facility]: Crystals, UA NOT REPORTED None /HPF [facility] Work Phone: Epithelial Cells UA 0 TO 2 [facility] Work Phone: Mucus, UA NOT REPORTED None [facility] Work Phone: Other Observations UA NOT REPORTED NOT REQ. [facility]: RBC, UA 2 TO 5 [facility] Work Phone: Renal Epithelial, UA NOT REPORTED 0 /HPF [facility] [employer] Work Phone: Trichomonas, UA NOT REPORTED None [facility] Work Phone: WBC, UA 0 TO 2 [facility]: Yeast, UA NOT REPORTED None [facility] Work Phone: [facility]: No Panel InformationOrdered By: Manuel Conner on 12-17-2020 Interpretation and review of laboratory results Abnormal [facility] Work Phone: [facility] Work Phone: Interpretation and review of laboratory results Abnormal [facility] Work Phone: [facility] Work Phone: Protime-INROrdered By: Kathy Conner on 12-17-2020 INR Coag (Bld) [Relative time] 1.1 {INR} [employer] Phone: Comment on above: Non-therapeutic Range: INR = 0.9-1.2 Therapeutic Range: Moderate Anticoagulant Intensity: INR = 2.0-3.0 High Anticoagulant Intensity: INR = 2.5-3.5 PT Coag (PPP) [Time] 13.7 s [place] Phone: [employer] Phone: TroponinOrdered By: Manuel Conner on 12-17-2020 Interpretation and review of laboratory results Abnormal [employer] Phone: Troponin Interp NOT REPORTED [employer] Phone: Troponin T NOT REPORTED <0.03 ng/mL [employer] Phone: Troponin, High Sensitivity 79 ng/L Critically high 0 - 22 ng/L [employer] Phone: Comment on above: High Sensitivity Troponin values cannot be compared with other Troponin methodologies. Patients with high levels of Biotin oral intake (i.e >5mg/day) may have falsely decreased Troponin levels. Samples collected within 8 hours of biotin intake may require additional information for diagnosis. [employer] Phone: Troponin Interp NOT REPORTED [employer] Phone: Troponin T NOT REPORTED <0.03 ng/mL [employer] Phone: Troponin, High Sensitivity 85 ng/L Critically high 0 - 22 ng/L [employer] Phone: Comment on above: High Sensitivity Troponin values cannot be compared with other Troponin methodologies. Patients with high levels of Biotin oral intake (i.e >5mg/day) may have falsely decreased Troponin levels. Samples collected within 8 hours of biotin intake may require additional information for diagnosis. Urinalysis, reflex to micros copicOrdered By: Manuel Conner on 12-17-2020 Bilirubin Urine Negative NEGATIVE [facility] Work Phone: Color, UA Yellow Yellow [facility] Work Phone: Glucose, Ur Negative NEGATIVE [facility] Work Phone: Interpretation and review of laboratory results Abnormal [facility] Work Phone: Ketones Ql (U) Negative NEGATIVE [facility] Work Phone: Leukocyte esterase Test strip Ql (U) Negative NEGATIVE [facility] Work Phone: Nitrite, Urine Negative NEGATIVE [facility] Work Phone: pH, UA 5.5 [facility] Work Phone: Protein, UA TRACE Abnormal NEGATIVE [employer] Phone: Specific [place], UA 1.025 High [employer] Work Phone: Turbidity UA Clear Clear [facility] Work Phone: Urinalysis Comments NOT REPORTED [facility] [employer] Work Phone: Urine Hgb TRACE Abnormal NEGATIVE [employer] Phone: Urobilinogen, Urine Normal Normal [employer] Phone: [facility] Work Phone: XR CHEST PORTABLEOrdered By: Manuel Conner on 12-17-2020 Mild streaky bibasil ar atelectasis with possible small bilateral pleural effusions [employer] Phone: EXAMINATION: ONE XRA Y VIEW OF THE CHEST 12/17/2020 9:30 am COMPARISON: None. HISTORY: ORDERING SYSTEM PROVIDED HISTORY: Congestion TECHNOLOGIST PROVIDED HISTORY: Congestion FINDINGS: Median sternotomy. Normal cardiopericardial silhouette Low volume lungs. Mild streaky bibasilar densities, possible possible small bilateral pleural effusions. Clear upper lungs Degenerative changes of the thoracic spine/shoulders [employer] Phone: Roger, [facility] Incoming R adiant Results From [employer] - 12/17/2020 9:46 AM EDT EXAMINATION: ONE XRAY VIEW OF THE CHEST 12/17/2020 9:30 am COMPARISON: None. HISTORY: ORDERING SYSTEM PROVIDED HISTORY: Congestion TECHNOLOGIST PROVIDED HISTORY: Congestion FINDINGS: Median sternotomy. Normal cardiopericardial silhouette Low volume lungs. Mild streaky bibasilar densities, possible possible small bilateral pleural effusions. Clear upper lungs Degenerative changes of the thoracic spine/shoulders IMPRESSION: Mild streaky bibasilar atelectasis with possible small bilateral pleural effusions [employer] Phone: [employer] Phone: Vital Signs Date Time Vital Sign Value Performing Clinician Facility 07-03-2021 15:01-0400 Body temperature 99.32 [degF] Michael Carballo Other Phone: [facility] 07-03-2021 15:01-0400 Diastolic blood pressure 66 mm[Hg] Michael Carballo Other Phone: [facility] 07-03-2021 15:01-0400 Heart rate 80 /min Michael Carballo Other Phone: [facility] 07-03-2021 15:01-0400 Respiratory rate 22 /min Michael Carballo Other Phone: [facility] 07-03-2021 15:01-0400 SaO2% (BldA) [Mass fraction] 97 % Michael Carballo Other Phone: [facility] 07-03-2021 15:01-0400 Systolic blood pressure 127 mm[Hg] Michael Carballo Other Phone: [facility] 07-03-2021 06:30-0400 Body weight 100.5 kg Michael Carballo Other Phone: [facility] 06-27-2021 13:00-0400 Diastolic blood pressure 69 mm[Hg] MD Michael Carballo Work Phone: [facility] 06-27-2021 13:00-0400 Heart rate 87 /min MD Michael Carballo Work Phone: [facility] 06-27-2021 13:00-0400 Respiratory rate 17 /min MD Michael Carballo Work Phone: [facility] 06-27-2021 13:00-0400 SaO2% (BldA) [Mass fraction] 94 % MD Michael Carballo Work Phone: [facility] 06-27-2021 13:00-0400 Systolic blood pressure 153 mm[Hg] MD Michael Carballo Work Phone: [facility] 06-27-2021 08:00-0400 Body temperature 97.9 [degF] MD Michael Carballo Work Phone: [facility] 06-27-2021 05:44-0400 Body weight 106.5 kg MD Michael Carballo Work Phone: [facility] 06-26-2021 14:12-0400 Body height 182.88 cm MD Michael Carballo Work Phone: [facility] 06-26-2021 00:24-0400 Body height 182.88 cm MD Michael Carballo Work Phone: [facility] 06-26-2021 00:24-0400 Body mass index (BMI) [Ratio] 32.8 kg/m2 MD Michael Carballo Work Phone: [facility] 06-26-2021 00:24-0400 Body temperature 97.7 [degF] MD Michael Carballo Work Phone: [facility] 06-26-2021 00:24-0400 Body weight 109.9 kg MD Michael Carballo Work Phone: [facility] 06-26-2021 00:24-0400 Diastolic blood pressure 100 mm[Hg] MD Michael Carballo Work Phone: [facility] 06-26-2021 00:24-0400 Heart rate 88 /min MD Michael Carballo Work Phone: [facility] 06-26-2021 00:24-0400 Respiratory rate 18 /min MD Michael Carballo Work Phone: [facility] 06-26-2021 00:24-0400 SaO2% (BldA) [Mass fraction] 96 % MD Michael Carballo Work Phone: [facility] 06-26-2021 00:24-0400 Systolic blood pressure 221 mm[Hg] MD Michael Carballo Work Phone: [facility] 12-19-2020 20:01-0400 Diastolic blood pressure 64 mm[Hg] Manuel Conner MD Work Phone: [facility] Work Phone: 12-19-2020 20:01-0400 Systolic blood pressure 182 mm[Hg] Manuel Conner MD Work Phone: [facility] Work Phone: 12-19-2020 19:00-0400 Heart rate 75 /min Manuel Conner MD Work Phone: [facility] Work Phone: 12-19-2020 19:00-0400 Respiratory rate 23 /min Manuel Conner MD Work Phone: [facility] Work Phone: 12-19-2020 19:00-0400 SaO2% (BldA) [Mass fraction] 94 % Manuel Conner MD Work Phone: [facility] Work Phone: 12-18-2020 06:30-0400 Body temperature 98.29 [degF] Manuel Conner MD Work Phone: [facility] Work Phone: Encounters Encounter Date Encounter Type Care Provider Facility Start: 09-28-2022 AUDIT Michael Carballo Work Phone: PN-Efhvyerxdp-Owgkwsrm [facility] 260 DO Work Phone: Start: 07-24-2022 End: 07-24-[address] MICHAEL CARBALLO . Facility: Start: 07-15-2022 End: 07-15-[address] MICHAEL CARBALLO . Facility: Start: 07-13-2022 Patient encounter procedure Michael Carballo Work Phone: YK-Jrymhdrdbf-PSL [place] [address] Work Phone: Start: 07-13-2022 Phys/qhp telephone evaluation 11-20 min Michael Carballo Work Phone: CQ-Odgdqrgmxk-QTQ [facility] [address] Work Phone: Start: 07-13-2022 ambulatory MD SCOUT ROMO Facility:[facility] Start: 07-13-2022 End: 07-13-[address] MICHAEL CARBALLO . Facility: Start: 07-09-2022 AUDIT Michael Carballo Work Phone: LC-Irmpwworna-FIK [facility] [address] Work Phone: Start: 06-08-2022 ambulatory Facility: [facility] Start: 06-05-2022 End: 06-05-[address] MICHAEL CARBALLO . Facility: Start: 06-04-2022 End: 06-04-[address] MICHAEL CARBALLO . Facility: Start: 04-14-2022 End: 04-15-2022 ambulatory DONNA Morfin [facility] Start: 04-14-2022 End: 04-14-2022 Subsequent hospital visit by physician Michael Carballo Work Phone: [facility] Start: 10-30-2021 End: 10-31-2021 ambulatory Manfred Wilson Facility:[facility] Start: 10-28-2021 End: 10-28-[address] MICHAEL CARBALLO . Facility: Start: 10-15-2021 Patient encounter procedure Michael Carballo Work Phone: XG-Aypicybkpl-CTH [facility] [address] [place] Work Phone: Start: 10-15-2021 ambulatory DO FELICIA ASTORGA Facility:[facility] Start: 08-05-2021 End: 08-06-[address] MICHAEL CARBALLO . Facility: Start: 07-16-2021 Office outpatient vi sit 25 minutes Michael Carballo Work Phone: TM-Ldrvxyeemf-MEY [facility] [address] [place] Work Phone: Start: 07-16-2021 Patient encounter procedure Michael Carballo Work Phone: II-Bmiknraktz-APK [facility] [address] [place] Work Phone: Start: 06-27-2021 End: 07-03-2021 [facility] and [id number] Start: 06-25-2021 End: 06-27-2021 Evaluation and management of inpatient MD Michael Carballo Work Phone: [facility] Start: 06-25-2021 Patient encounter procedure Michael Carballo Work Phone: PX-Hfjgzoyybh-RDD [facility] [address] [place] Work Phone: Start: 06-24-2021 End: 06-24-2021 Patient encounter procedure MD Michael Carballo Work Phone: [facility] Start: 05-28-2021 AUDIT Michael Carballo Work Phone: GA-Zuwitovssa-DGT [facility] [address] [place] Work Phone: Start: 05-27-2021 End: 05-27-2021 Patient encounter procedure MD Michael Carballo Work Phone: [facility] Start: 01-01-2021 Patient encounter procedure Michael Carballo Work Phone: XJ-Yrhegvbdfr-XAT [facility] [place] Work Phone: Start: 01-01-2021 WANG, Provider : Rizwan,Felicia, Status: Pen, Time: 2:20 PM Michael Carballo Work Phone: JP-Fntiknhvqu-Zfgjvwyn [facility] [address] DO Work Phone: Start: 12-31-2020 AUDIT Michael Carballo Work Phone: TW-Osnewwmbpa-Jckfsqnw [facility] [address] DO Work Phone: Start: 12-17-2020 End: 12-19-2020 Emergency department patient visit Manuel Conner MD Work Phone: [facility] ED Comment on above: [place] coma scale t otal score 13-15, at hospital admission (Primary Dx); Acute kidney injury (HCC); Heart replaced by transplant (HCC); Confusion Start: 11-21-2020 AUDIT Michael Carballo Work Phone: OU-Ryschxyeab-TQX [facility] [place] [address] [place] Work Phone: Start: 10-31-2020 AUDIT Michael Carballo Work Phone: [facility] Work Phone: Procedures Date Procedure Procedure Detail Performing Clinician Start: 04-14-2022 Cul bact xcpt urine blood/stool aerobic isol Donna Arellano PA-C Work Phone: Start: 06-26-2021 Duplex scan of lower limb veins MD Michael Carballo Work Phone: Start: 06-26-2021 Duplex scan veins of upper limb MD Michael Carballo Work Phone: Start: 06-25-2021 Plain chest X-ray MD Maurice Carballo Work Phone: Start: 06-25-2021 SARS Antigen (LFIA) MD Michael Carballo Work Phone: Start: 12-20-2020 Echocardiography Michael Carballo Work Phone: Start: 12-19-2020 End: 12-19-2020 Basic metabolic panel calcium total Manuel Conner MD Work Phone: Start: 12-18-2020 GLUCOSE, WHOLE BLOOD Ri yoli Conner MD Work Phone: Start: 12-18-2020 Radiologic exam ches t single view Manuel Conner MD Work Phone: Start: 12-18-2020 Radiologic exam ches t single view Manuel Conner MD Work Phone: Start: 12-18-2020 End: 12-18-2020 Basic metabolic panel calcium total Manuel Conner MD Work Phone: Start: 12-18-2020 Rhythm ecg 1-3 leads w/interpretation & report Unknown Provider Result Start: 12-17-2020 Urinalysis microscop ic only Manuel Conner MD Work Phone: Start: 12-17-2020 Urnls dip stick/tabl et rgnt auto w/o microscopy Manuel Conner MD Work Phone: Start: 12-17-2020 Assay of troponin quantitative Manuel Conner MD Work Phone: Start: 12-17-2020 End: 12-17-2020 Mra head w/o contrst material Manuel Conner MD Work Phone: Start: 12-17-2020 CULTURE, BLOOD 1 Mich Conner MD Work Phone: Start: 12-17-2020 COVID-19, RAPID Manuel Conner MD Work Phone: Start: 12-17-2020 Blood gases any combination ph pco2 po2 co2 hco3 Manuel Conner MD Work Phone: Start: 12-17-2020 CULTURE, BLOOD 1 Mich Conner MD Work Phone: Start: 12-17-2020 Lactate [Moles/volum e] in Serum or Plasma Manuel Conner MD Work Phone: Start: 12-17-2020 Ecg routine ecg w/le ast 12 lds i&r only Manuel Conner MD Work Phone: Start: 09-28-2021 Radiologic exam ches t single view Manuel Conner MD Work Phone: Start: 12-17-2020 Ct head/brain w/o co ntrast material Manuel Conner MD Work Phone: Start: 12-17-2020 Assay of lipase Manuel Conner MD Work Phone: Start: 12-17-2020 IMMATURE PLATELET FRACTION Manuel Conner MD Work Phone: H/O: heart recipient Heart transplanted Jasper Carballo Work Phone: H/O: heart recipient Heart repla vaibhav by transplant ([facility]) Manuel Conner MD Work Phone: H/O: heart recipient History of heart transplant MD Michael Carballo Work Phone: H/O: heart recipient History of heart transplant MD Michael Carballo Work Phone: Transplantation Of Heart Michael Carballo Work Phone: Comment on above: 2000; Plan of Treatment Date Care Activity Detail Author Start: 07-13-2022 WANG, Provider : Montse Villanueva, Status: Pen, Time: 2:00 PM VIRFUVMILES, Provider: Montse Villanueva, Status: Pen, Time: 2:00 PM AN-Mdagkcoflo-QRT [place] [address] Work Phone: Start: 07-13-2022 WANG, Provider : Scout Romo, Status: Pen, Time: 1:40 PM VIRFUCORI, Provider: Scout Romo, Status: Pen, Time: 1:40 PM SF-Foseivpdwm-QIC [place] [address] Work Phone: Start: 04-01-2022 WANG, Provider : Felicia Astorga, Status: Pen, Time: 1:00 PM WANG, Provider: Felicia Astorga, Status: Pen, Time: 1:00 PM AM-Ilxllkecgr-SIL [facility] [address] [place] Work Phone: Start: 12-19-2021 Creatinine measurement Creatinine [facility] Work Phone: Start: 12-19-2021 Potassium monitoring Potassium monit nyla [employer] Phone: Start: 10-20-2021 Influenza vaccination Flu vaccine (# 1) [facility] Start: 07-16-2021 Patient encounter procedure [facility] Start: 07-03-2021 End: 07-04-2022 Insulin Glargine (Lantus) Injectable Subcutaneous Once ; DOSE = 12 unit(s) SubCutaneous At BedtimeNotes from Pharmacy: [facility] Start: 03-Jul-2021 End: 03-Jul-2022 Ordered: 03-Jul-2021 Mayg Galeas [facility] Start: 07-01-2021 End: 07-02-2022 [facility] Comment on above: IF patient HAS a sec ure IV access & is Unconscious, Conscious, NPO or Unable to Eat or Drink. Repeat until BG reaches 100 mg/dL or greater. Push 2-3 mL/minute. Discontinue Once BG reaches 100 mg/dL or greater. IF patient DOES NOT have secure IV access & is Unconscious, Conscious, NPO or Unable to Eat or Drink. Repeat until BG reaches 100 mg/dL or greater. Discontinue Once BG reaches 100 mg/dL or greater. Start: 06-30-2021 End: 07-01-2022 Permethrin 5% Topical 1 application Cream Once ; Cream (ACTICIN, ELIMITE)DOSE = 1 application(s) Topical At BedtimeApply to all body surfaces from the neck down (Ch Start: 30-Jun-2021 End: 30-Jun-2022 Ordered: 30-Jun-2021 Jihan Storm [facility] Start: 06-27-2021 End: 06-28-2022 Sodium Chloride 0.9% Injectable Flush Peripheral Line ; via Peripheral LineVolume = 10 mL IntraVenous Flush Every 8 Hours and as Needed Start: 27-Jun-2021 End: 27-Jun-2022 Ordered: 26-Jun-2021 Magy Galeas [facility] Start: 06-26-2021 Duplex scan of upper limb arteries US arterial duplex UE RT [facility] Start: 12-17-2020 Annual Wellness Visi t (AWV) Annual Wellness Visit (AWV) [employer] Start: 11-20-2020 Influenza vaccination Flu vaccine (# 1) [facility] Work Phone: Start: 07-16-2020 COVID-19 Vaccine (3 - Pfizer risk 3-dose series) COVID-19 Vaccine (3 - Pfizer risk 3-dose series) [facility] Work Phone: Start: 07-16-2020 COVID-19 Vaccine (3 - Pfizer risk series) COVID-19 Vaccine (3 - Pfizer risk series) [employer] Start: 10-01-2016 Pneumococcal 65+ yrs at Risk Vaccine (2 of 2 - PCV13) Pneumococcal 65+ yrs at Risk Vaccine (2 of 2 - PCV13) [employer] Phone: Start: 10-10-1993 Shingles Vaccine (1 of 2) Shingles Vaccine (1 of 2) [facility] Work Phone: Start: 10-10-1962 DTaP/Tdap/Td vaccine (1 - Tdap) DTaP/Tdap/Td vaccine (1 - Tdap) [employer] Start: 10-10-1962 Shingles vaccine (1 of 2) Shingles vaccine (1 of 2) [employer] Start: 10-10-1961 Hepatitis C screening Hepatitis C sc reen [facility] [employer] Start: 1955 Depression Screen [facility] Start: 10-10-1953 [facility] Start: 1943 Hepatitis C screening [facility] sc [facility] Work Phone: Calcium [Mass/volume ] in Serum or Plasma [facility] Work Phone: Carbon dioxide, tota l [Moles/volume] in Serum or Plasma [facility] Work Phone: Chloride [Moles/volu me] in Serum or Plasma [facility] Work Phone: Creatinine and Glomerular filtration rate.predicted panel - Serum, Plasma or Blood [facility] Work Phone: [facility] Work [facility]: Culture, Wound Culture, Wound Microbiology Routine 04/14/2022 3:25 PM EST [facility] Work Phone: Glucose [Mass/volume ] in Serum or Plasma [facility] Work Phone: Goals of care, counseling/discussion [facility] Measurement of renal function [facility] Work Phone: Potassium [Moles/volume] in Serum or Plasma [facility] Work Phone: Sodium [Moles/volume ] in Serum or Plasma [facility] Work Phone: Tacrolimus [Mass/volume] in Blood [facility] Work Phone: End: 12-18-2020 Tacrolimus Level [facility] Work Phone: Comment on above: One Time for 1 Occur rences starting 12/18/2020 until 12/18/2020 End: 12-19-2020 Tacrolimus Level Tacrolimus Level Lab Routine One Time for 1 Occurrences starting 12/19/2020 until 12/19/2020 [facility] Work Phone: Comment on above: One Time for 1 Occur rences starting 12/19/2020 until 12/19/2020 [facility] Work Phone: Urea nitrogen [Mass/volume] in Serum or Plasma [facility] Work Phone: Immunizations Immunization Date Immunization Notes Care Provider Haven de leon 03-21-2021 Pfizer-BioNTech COVI D-19 Vacc 30 MCG/0.3ML Intramuscular Suspension Michael Carballo Work Phone: [id number] Heather Vallecillo [address] [place] Work Phone: 06-18-2020 Pfizer-BioNTech COVI D-19 Vacc 30 MCG/0.3ML Intramuscular Suspension Michael Candelario Carballo Work Phone: [facility] Work Phone: 05-27-2020 Pfizer-BioNTech COVI D-19 Vacc 30 MCG/0.3ML Intramuscular Suspension Michael E Carballo Work Phone: [facility] Work Phone: 12-29-2019 Seasonal trivalent influenza vaccine, adjuvanted, preservative free Michael Palomino Carballo Work Phone: [facility] Work Phone: 12-22-2017 Seasonal trivalent influenza vaccine, adjuvanted, preservative free Michael Palomino Carballo Work Phone: [facility] Work Phone: 12-28-2016 Seasonal trivalent influenza vaccine, adjuvanted, preservative free Michael Palomino Carballo Work Phone: [facility] Work Phone: 12-24-2015 influenza, high dose seasonal, preservative-free Michael Palomino Carballo Work Phone: [facility] Work Phone: 10-02-2015 influenza, seasonal, injectable Michael Palomino Carballo Work Phone: [facility] Work Phone: 10-02-2015 pneumococcal polysaccharide vaccine, 23 valent Michael Palomino Carballo Work Phone: [facility] Work Phone: 01-09-2015 influenza, injectabl e, quadrivalent, contains preservative Michael Palomino Carballo Work Phone: [facility] Work Phone: 01-03-2013 influenza, seasonal, injectable Michael Palomino Carballo Work Phone: [facility] Work Phone: 01-07-2009 influenza virus vacc ine, whole virus Michael Christianight Work Phone: [facility] Work Phone: 01-20-2005 influenza virus vacc ine, whole virus Michael Palomino Carballo Work Phone: [facility] Work Phone: Payers Date Payer Category Payer Self-pay [id number] 1961 Medicaid [id number] 1961 Medicare [id number] 1961 Medicare [id number] 1961 Private Health Insurance [id number] 1943 Unknown [id number] 2.16.8 [id number] 1943 Unknown [id number] 2.16.84 [id number] 1943 Unknown [id number] 2.16.84 [id number] 1943 Unknown [id number] 2.16.84 [id number] 1943 Unknown [id number] 2.16.84 [id number] 1943 Unknown [id number] 2.16.84 [id number] 1943 Unknown [id number] 2.16.84 [id number] 1943 Unknown [id number] 2.16.84 [id number] 1943 Unknown [id number] 2.16. [id number] 1945 Unknown [id number] 2.16. [id number] Unknown Unknown [id number] 2.16.8 [id number] Social History Date Type Detail Facility Former smoker Former smoker [email or web address] Work Phone: Start: 12-17-2020 Tobacco smoking stat us DCIS Unknown if ever smoked [facility] Work Phone: Start: 1945 Sex Assigned At Not on file M [employer] Work Phone: Exposure to SARS-CoV -2 (event) Unable to assess [facility] Start: 12-13-2020 [facility] Start: 1945 Sex Assigned At Male F [facility] Start: 06-26-2021 End: 06-26-2021 Tobacco smoking status NHIS Ex-smoker (finding) [facility] End: 03-22-1996 History of tobacco use [facility] Work Phone: Goals Date Patient Goal Desired Activity /State Functional Status Date Assessment Result Facility 06-27-2021 Functional status Patient at Baseline [facility] Work Phone: Functional observable [facility] Mental Status Date Assessment Result Facility 06-30-2021 Cognitive functi ons [id number] [facility] 06-27-2021 Cognitive function Cognitive Sta tus Patient at Baseline [facility] Work Phone: Clinical Notes 07-05-2000 to 07-03-2021 <item><item><item><item><item><item><item><item><item> Note Date & Type Note Facility 07-03-2021 Hospital Discharge instructions Activity:activity with assistance. May shower.Labs 1 (Modify Template):Lab Test(s): Basic Metabolic Panel, CBC, Tacrolimus levelDate To Be Drawn: 07/07/2021all Results To: Dr. Felicia Moore Results To: [phone] Orders:Blood Glucose Monitoring: ACHSAdditional Instructions: Use of permethrin cream once on 07/06/2021), at bedtime. Apply from the neck down in all body. Leave on through the night and rinse off the following morning.Call Provider If:Breathing faster than normal. Breathing harder than normal or having retractions. Fever of 100.4 F (38 C) or higher. Chills. Vomiting (throwing up) and not able to eat or drink for 12 hours. Any new concerning symptoms.Care Recommendation:I recommend that INPATIENT care is required at: SkilledEstimated Stay: > 180 daysPrognosis: FairRehab Potential/Function: MaintainTherapy Orders:Occupational Therapy Orders: [facility]), 3-5 times/weekPhysical Therapy Orders: [facility]), 3-5 times/weekSpeech Therapy Orders: 3-5 times/weekProvider Follow Up:Primary Care Physician: Michael Carballo ()Primary Care Physician Physician To Follow at Skilled/Rehab: Primary PhysicianFollow Up Appointment 1:Physician/Dept/Service: Anna Graff for Referral: Uncontrolled diabetesCall to Schedule in: 2 weeksLocation[facility] Up Appointment 2:Physician/Dept/Service: Dr. Felicia Astorga / Heart failure and transplantReason for Referral: hospital follow-upLocation: [facility] 1800Comments: Our office will call you to set up an appointment either in person or virtually. [facility] 06-27-2021 Discharge summary Note Date/Time June 27, 2021 10:32am [facility] [address] [place] [address] Discharge Summary Signed Patient: Oliverio Escobedo MR#: [id number] : 1945 Acct:[id number] Age/Sex: 75 / M Adm Date: 2 Loc: Room: [address] [place] [address]: Yoshi Hernandez MD Copies to: MD Justa OlveraCAROMONT REG[facility]ICAL [facility]ENTERSHELLY Howard Providers Date of Discharge: 06/27/21 Discharging Provider: Yoshi Hernandez Primary Care Provider: Manfred Wilson Consults: 06/25/21 23:47 Consult to Cardiology Routine Discharge Diagnosis (1) Bilateral edema of lower extremity: (2) History of heart transplant: Final Diagnosis Final Discharge Diagnosis: Volume overload secondary to acute on chronic diastolic congestive heart failure Summary Hospital Course Hospital course: Patient is a 75-year-old male with 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, diabetes, hypertension, hypothyroidism and heart transplant about 20 years ago who presented to our hospital complaining of bilateral lower extremity edema that has been going on for almost 2 weeks prior to presentation, the patient wasadmitted and started on IV diuretics with Lasix, echo was ordered and cardiologywas consulted however the patient and his called the transplant team who recommended for the patient to be transferred there and the patient got acceptedautomatically and was transferred there this morning and is stable condition before I saw him Condition Condition at Discharge: Stable Time Spent with Patient Time spent providing/coordinating discharge services (# min): 35 Diagnostic Studies Completed and Pending Studies Labs on day of discharge: 06/27/21 07:32: POC Glucose 172, POC Glucose Comment Glu2: cleaned meter 06/27/21 06:40: POC Glucose 167 06/26/21 20:46: POC Glucose 180 06/26/21 16:27: POC Glucose 217 06/26/21 11:16: POC Glucose 213 Exam Physical Exam Vital Signs: Temp Pulse Resp BP Pulse Ox 97.9 F 83 17 166/71 H 95 06/27/21 08:00 06/27/21 08:00 06/27/21 08:00 06/27/21 08:00 06/27/21 08:00 Narrative: Physical exam is not performed as the patient left before I saw him Discharge Plan Discharge Plan Patient Disposition: Hospital Acute Care Other Activity: Ambulate as Tolerated Diet: Diabetic and Low-Sodium Comment: 1500 fluid restriction daily Additional Instructions: Monitor FSBS ACHS Change dressing every 3 days: *right dorsal foot- ruputered blister- clean with thera worx protect, apply polymem ag, secure with mepilex border foam Prescriptions: New furosemide 10 mg/mL Solution 40 mg IV-PUSH BID@0800,1600 RF: 0 loratadine 10 mg Tablet 10 mg PO DAILY PRN (Reason: Allergy Symptoms) RF: 0 Continued clopidogrel [Plavix] 75 mg Tablet 75 mg PO DAILY RF: 0 aspirin 81 mg Tablet,Delayed Release (Dr/Ec) 81 mg PO DAILY RF: 0 mycophenolate mofetil 500 mg Tablet 250 mg PO BID RF: 0 alendronate 35 mg Tablet 35 mg PO QWEEK RF: 0 magnesium oxide 400 mg Tablet 400 mg PO BID RF: 0 diltiazem HCl 120 mg Capsule,Extended Release 24hr 240 mg PO DAILY RF: 0 pantoprazole [Protonix] 40 mg Tablet,Delayed Release (Dr/Ec) 40 mg PO DAILY RF: 0 sertraline 50 mg Tablet 50 mg PO DAILY RF: 0 levothyroxine 75 mcg Capsule 75 mcg PO DAILY RF: 0 tacrolimus 0.5 mg Capsule 0.5 mg PO BID RF: 0 tacrolimus 1 mg Capsule 1 tab PO BID RF: 0 omega 2-ucb-bpx-fish oil [Fish Oil] 1,000 mg (120 mg-180 mg) Capsule 1 tab PO BID RF: 0 atorvastatin 80 mg Tablet 80 mg PO DAILY RF: 0 isosorbide mononitrate 120 mg Tablet Extended Release 24 Hr 120 mg PO DAILY RF: 0 hydralazine 50 mg Tablet 100 mg PO TID RF: 0 carbidopa-levodopa 25-100 mg Tablet 0.5 tab PO TID RF: 0 Humalog U-100 Insulin 100 unit/mL Cartridge See Rx Instructions .ROUTE .COMPLEX RF: 0 calcium carbonate-vitamin D3 [Oyster Shell + D3] 250 mg-3.125 mcg (125 unit) Tablet RF: 0 cholecalciferol (vitamin D3) 25 mcg (1,000 unit) Tablet 2,000 unit PO DAILY RF: 0 alogliptin 12.5 mg Tablet 12.5 mg PO DAILY RF: 0 insulin glargine 100 unit/mL Solution 20 unit SUBCUT DAILY RF: 0 Documented By: Yoshi Hernandez MD 2 1029 Signed By: <Electronically signed by Yoshi Hernandez MD> 06/27/21 1032 [facility] Work Phone: 1(199) 564-312804-08-2022 Progress note Author Bonilla Ortiz [facility] June 27, 2021 10:27am Note Date/Time June 27, 2021 10:2 7am [facility] [address] [place] [address] Cardiology Progress Note Signed Patient: Oliverio Escobedo MR#: [id number] : 1945 Acct:[id number] Age/Sex: 75 / M Adm Date: 2 Loc: 3T Room: [address] [place] [address] Type : ADM INOo Attending Dr: Yoshi Hernandez MD Copies to: ~ Date of Service: 06/27/2021 Subjective Principal diagnosis: Edema w history of orthotopic heart transplant Interval history: Mr. Escobedo is a 75 year old male with known history of orthotopic heart transplantation in 2000 done at [facility] who was admitted to the inpatient hospitalist service last night after presenting from the [facility] with complaints of increasing swelling in both legs and the right arm for several days. The patient is resting comfortably this morning. He did diurese gently yesterday. He currently has no cardiac complaints. His breathing feels comfortable lying flat at rest. Swelling in both feet and calves is still present. NB: The patient has been accepted by the transplant service at [facility]. At this point we are awaiting bed availability for inpatient transfer Exam Physical Exam Vital Signs: Temp Pulse Resp BP Pulse Ox 97.9 F 83 17 166/71 H 95 06/27/21 08:00 06/27/21 08:00 06/27/21 08:00 06/27/21 08:00 06/27/21 08:00 Const General: cooperative, comfortable and no acute distress Nutritional Appearance: average body habitus Orientation: alert, awake and oriented x3 HEENT Head: normal to inspection Mouth: oral mucosae normal and moist mucous membranes Teeth and gingiva: fair dentition Eyes Conjunctivae: conjunctivae normal Sclera: sclerae normal Pupils: PERRL EOM: EOM intact bilaterally Direct ophthalmoscopy: no photophobia Neck Neck: normal visual inspection, full ROM, no lymphadenopathy and supple Neck mass: No Carotids: normal carotid upstroke Lymphatic: no lymphadenopathy noted Chest Chest palpation & inspection: normal inspection of the chest Resp Effort & Inspection: normal respiratory effort Auscultation: clear to auscultation bilaterally Cardio Jugular venous pressure: no JVD Palpation: normal PMI Rate: regular rate Rhythm: regular rhythm Heart Sounds: S1 normal, S2 normal and gallop S4 gallop Pulses: radial pulses present, posterior tibial pulses present and dorsalis pedis present GI Inspection: normal to inspection Palpation: soft and no hepatosplenomegaly Percussion: normal to percussion Auscultation: normal bowel sounds Skin General: no rashes or lesions noted Trauma: no lacerations or abrasions Wounds: no wounds Neuro General: patient alert, patient awake, patient oriented x3, moves all extremities and no focal motor deficits Cranial Nerves: CN's II-XII intact bilaterally Motor: muscle tone normal throughout Sensory Exam: no sensory deficits noted Extrem General: full ROM and edema (1+ pitting edema bilateral lower extremity) Psych Appearance: grossly normal Mental Status: mental status grossly normal Mood: congruent mood Speech and Movement: speech and movement normal Attitude: cooperative Thought Process: normal Thought Content: normal Insight: insight good Judgment: judgment good Objective Labs CBC & Chem 7: 06/25/21 19:30 06/26/21 07:15 Labs: Laboratory Results - last 24 hr 06/26/21 06/26/21 06/26/21 11:16 16:27 20:46 POC Glucose 213 217 180 POC Glucose Comment 06/27/21 06/27/21 06:40 07:32 POC Glucose 167 172 POC Glucose Comment Glu2: cleaned meter A&P - Cardiology (1) Bilateral edema of lower extremity: Assessment/Problem Details: Grossly this does not appear to be cardiogenic in origin. Bedside echocardiogram shows normal resting left ventricular regional wall motion and systolic function. This may in fact proved to be iatrogenic given that the patient is on multiple vasodilators for control of his hypertension (diltiazem and hydralazine and isosorbide). Code(s): R60.0 - Localized edema Status: Acute Plan: Agree withl gentle diuresis. However the patient does not appear in volume overload and/or decompensated state. Monitor fluid output and renal function closely to avoid prerenal azotemia (2) History of heart transplant: Assessment/Problem Details: I see no clinical or echocardiographic evidence of acute rejection. Tacrolimus level is drawn and pending. Code(s): Z94.1 - Heart transplant status Status: Acute Plan: Agree with transfer to transplant service at [facility] for further management. Plan Thank you very much for this kind consultation and for allowing me to participate in the care of this very pleasant patient. Time spent with patient Time Spent With Patient (min): 20 Documented By: Bonilla Ortiz MD 06/27/21 1024 Signed By: <Electronically signed by Bonilla Ortiz MD> 06/27/21 1027 [facility] Work Phone: 1([phone]) 101-623904-07-2022 Progress note Author Yoshi Wu [facility] June 26, 2021 6:27pm Note Date/Time June 26, 2021 6:27 pm [facility] [address] [place] [address] Hospitalist Progress Note Signed Patient: Oliverio Escobedo MR#: [id number] : 1945 Acct:[id number] Age/Sex: 75 / M Adm Date: 2 Loc: Room: [address] [place] [address] Type : ADM INOo Attending Dr: Yoshi Hernandez MD Copies to: ~ Date of Service: 06/26/2021 Subjective Subjective Narrative: Patient was seen and examined this morning with his at bedside, the patientstated that he feels a little bit better however his legs are still swollen Exam Physical Exam Vital Signs: Temp Pulse Resp BP Pulse Ox 97.5 F L 83 16 170/55 H 97 06/26/21 15:48 06/26/21 15:48 06/26/21 15:48 06/26/21 15:48 06/26/21 15:48 Narrative: General: patient is alert and oriented, laying in bed comfortably no acute distress HEENT: head atraumatic, normocephalic, moist mucous membranes, normal nose and ears, no throat lesions, normal conjunctiva Neck: supple no masses, no lymphadenopathy CVS: regular rate and rhythm, no murmurs or gallops Respiratory: Bibasilar crackles with no wheeze GI: soft, nondistended, nontender, positive bowel sounds with no organomegaly Extremity: +3 pitting edema up to the mid thighs Neuro: alert and oriented x3, normal speech, normal motor function Skin: dry, intact no rashes or lesions Objective Lab Results CBC & Chem 7: 06/25/21 19:30 06/26/21 07:15 Microbiology Results Microbiology 06/25/21 20:00 Nasal SARS Antigen (LFIA) - Final Meds Allergies and Active Meds Allergies allopurinol Allergy (Verified 06/25/21 23:36) Rash cefazolin Allergy (Verified 06/25/21 23:36) Rash Active Meds: Active Medications Generic Name Dose Route Start Last Admin Trade Name Al PRN Reason Stop Dose Admin Acetaminophen 650 mg 06/25/21 23:41 06/26/21 12:05 Acetaminophen 325 Mg Tablet PO 06/25/22 23:40 650 mg Q6HR PRN Administration Pain Scale 1 - 3 or fever Aspirin 81 mg 06/26/21 09:00 06/26/21 09:01 Aspirin 81 Mg Tablet.Dr PO 06/26/22 08:59 81 mg DAILY RAUDEL Administration Atorvastatin Calcium 80 mg 06/26/21 21:00 Atorvastatin 80 Mg Tablet PO 06/26/22 20:59 QPM RAUDEL Carbidopa/Levodopa 0.5 tab 06/26/21 09:00 06/26/21 13:10 Carbidopa/Levodopa 25-100 Mg 1 Tab Tablet PO 06/26/22 08:59 0.5 tab TID RAUDEL Administration Clopidogrel Bisulfate 75 mg 06/26/21 09:00 06/26/21 09:00 Clopidogrel Bisulfate 75 Mg Tablet PO 06/26/22 08:59 75 mg DAILY RAUDEL Administration Dextrose 0 gm 06/26/21 03:46 Dextrose 20 % In Water 10 Gm/50 Ml Syringe IV-PUSH 06/26/22 03:45 PRN PRN Hypoglycemia Diltiazem HCl 240 mg 06/26/21 09:00 06/26/21 09:00 Diltiazem Cd.24hr 240 Mg Cap.Er.24h PO 06/26/22 08:59 240 mg DAILY RAUDEL Administration Fish Oil 1,000 mg 06/26/21 09:00 06/26/21 09:01 [place]-3/Fish Oil 1,000 Mg Capsule PO 06/26/22 08:59 1,000 mg BID RAUDEL Administration Furosemide 40 mg 06/26/21 01:00 06/26/21 15:46 Furosemide 40 Mg/4 Ml Vial IV-PUSH 06/26/22 00:59 40 mg BID@0800,1600 RAUDEL Administration Glucose 0 gm 06/26/21 03:40 Dextrose 40% Gel 15 Gm Tube PO 06/26/22 03:39 PRN PRN Hypoglycemia Heparin Sodium (Porcine) 5,000 unit 06/26/21 06:00 06/26/21 13:10 Heparin 5,000 Unit/Ml Vial SUBCUT 06/26/22 05:59 5,000 unit Q8HR RAUDEL Administration Hydralazine HCl 100 mg 06/26/21 01:00 06/26/21 13:10 Hydralazine 50 Mg Tablet PO 06/26/22 00:59 100 mg TID RAUDEL Administration Insulin Aspart 0 units 06/26/21 07:30 06/26/21 17:23 Insulin Aspart 300 Units/3 Ml Insuln.Pen SUBCUT 06/26/22 07:29 2 units ACHS RAUDEL Administration Protocol Insulin Detemir 20 units 06/26/21 09:00 06/26/21 09:25 Insulin Detemir 300 Units/3 Ml Insuln.Pen SUBCUT 06/26/22 08:59 20 units DAILY RAUDEL Administration Isosorbide Mononitrate 120 mg 06/26/21 09:00 06/26/21 08:59 Isosorbide Mononitrate 24hr Er 120 Mg Tab.Er.24h PO 06/26/22 08:59 120 mg DAILY RAUDEL Administration Levothyroxine Sodium 75 mcg 06/26/21 06:30 06/26/21 06:34 Levothyroxine 75 Mcg Tablet PO 06/26/22 06:29 75 mcg DAILY@0630 RAUDEL Administration Loratadine 10 mg 06/26/21 01:04 Loratadine 10 Mg Tablet PO 06/26/22 01:03 DAILY PRN Allergy Symptoms Magnesium Oxide 400 mg 06/26/21 09:00 06/26/21 09:00 Magnesium Oxide 400 Mg Tablet PO 06/26/22 08:59 400 mg BID RAUDEL Administration Mycophenolate Mofetil 250 mg 06/26/21 09:00 06/26/21 09:00 Mycophenolate Mofetil 250 Mg Capsule PO 06/26/22 08:59 250 mg BID RAUDEL Administration Omeprazole 20 mg 06/26/21 09:00 06/26/21 09:01 Omeprazole 20 Mg Capsule.Dr PO 06/26/22 08:59 20 mg DAILY RAUDEL Administration Sertraline HCl 50 mg 06/26/21 09:00 06/26/21 09:00 Sertraline 50 Mg Tablet PO 06/26/22 08:59 50 mg DAILY RAUDEL Administration Sodium Chloride 0 ml 06/25/21 17:58 06/26/21 15:46 Sodium Chloride 0.9 % 10 Ml Syringe IV-PUSH 06/25/22 17:57 10 ml PRN PRN Administration Flush Tacrolimus 1 mg 06/26/21 09:00 06/26/21 09:25 Tacrolimus 1 Mg Capsule PO 06/26/22 08:59 1 mg BID RAUDEL Administration Tacrolimus 0.25 mg 06/26/21 09:00 06/26/21 09:02 Tacrolimus 0.5 Mg Capsule PO 06/26/22 08:59 0.25 mg BID RAUDEL Administration A&P - Hospitalist Assessment/Plan (1) Shortness of breath: (2) Bilateral edema of lower extremity: Plan Assessment and plan *Volume overload secondary to acute on chronic diastolic congestive heart failure *History of heart transplant 20 years ago ?Patient slowly improving ?Continue Lasix 40 mg IV twice daily ?Echo today is consistent with grade 2 diastolic congestive heart failure with no pulmonary hypertension ?Strict I's and O's ?Patient called his transplant team at who requested for the patient to be transferred, currently awaiting on a bed *Acute on chronic kidney disease due to cardiorenal syndrome ?Creatinine is improving ?Continue to hold nephrotoxic agents ?Continue with Lasix and daily BMP Chronic conditions 1. Hypertension -on hydralazine/isosorbide and diltiazem 2. Diabetes-sliding scale insulin, BS before meals and at bedtime 3. Parkinson's disease?on carbidopa/levodopa 4. CVA?on aspirin, clopidogrel 5. Hypothyroidism?on levothyroxine 6. Burkitt's lymphoma 7. Heart transplant 2000- Documented By: Yoshi Hernandez MD 2 1823 Signed By: <Electronically signed by Yoshi Hernandez MD> 06/26/21 282 [facility] Work Phone: [phone] 771-201804-07-2022 Consult note Author Bonilla Ortiz [facility] June 26, 2021 2:26pm Note Date/Time June 26, 2021 2:23 pm [facility] [address] [place] [address] Cardiology Consult Note Signed Patient: Oliverio Escobedo MR#: [id number] : 1945 Acct:[id number] Age/Sex: 75 / M Adm Date: 2 Loc: Room: [address] [place] [address] Type : ADM INOo Attending Dr: Yoshi Hernandez MD Copies to: MD Manfred Olvera([facility]) DO Bonilla Wilson MD~ Cardiology HPI History of Present Illness Consult Date: 06/26/21 Reason for Consult: Bilateral lower extremity swelling Remote history of orthotopic heart transplantation HPI: Mr. Escobedo is a 75 year old male with known history of orthotopic heart transplantation in 2000 done at [facility] who was admitted to the inpatient hospitalist service last night after presenting from the [facility] with complaints of increasing swelling in both legs and the right arm for several days. The patient denies any recent chest pain chest pressure or other anginal symptoms. He denies any shortness of breath dyspnea on exertion or orthopnea. He does state, however, that both his feet and calves have been swelling over the last several days. He denies any change or noncompliance with his medications. His notes that he had a tacrolimus level drawn 2 days ago, and the results were sent to his transplant regulatory compliance engineer in [place]. She doesnot know the results. On my evaluation the patient was undergoing bedside transthoracic echocardiography. Preliminary interpretation of the study shows normal resting left ventricular regional wall motion and systolic function. Ejection fraction appears greater than 55%. There is no notable pericardial or pleural effusion. There is no notable/significant valvular heart disease noted. By report the patient's transplant service at [facility] has been contacted and is requested the patient be transferred to their facility. This transfer is currently being arranged. Again at this point the patient is asymptomatic other than for the presence of 1+ pitting edema in bilateral lower extremities. Review of Systems Review of Systems All other systems reviewed & are negative unless noted below or in HPI PMFSH Vaccinated for COVID-19?: Yes Medical History (Updated 06/26/21 @ 14:24 by Bonlila Ortiz MD) Diabetes HTN (hypertension) Surgical History (Updated 06/26/21 @ 14:24 by Bonilla Ortiz MD) History of heart transplant Family History Other Hypertension Social History Smoking Status: Former smoker Tobacco Type: cigarettes Substance Use Type: None Meds Medications and Allergies Allergies allopurinol Allergy (Verified 06/25/21 23:36) Rash cefazolin Allergy (Verified 06/25/21 23:36) Rash Home Medications alendronate 35 mg tablet 35 mg PO QWEEK 02/02/17 [History Confirmed 06/25/21] aspirin 81 mg tablet,delayed release 81 mg PO DAILY 02/02/17 [History Confirmed 06/25/21] clopidogrel 75 mg tablet (Plavix) 75 mg PO DAILY 02/02/17 [History Confirmed 06/25/21] diltiazem HCl 120 mg capsule,24 hr,extended release 240 mg PO DAILY 02/02/17 [History Confirmed 06/25/21] levothyroxine 75 mcg capsule 75 mcg PO DAILY 02/02/17 [History Confirmed 06/25/21] magnesium oxide 400 mg (241.3 mg magnesium) tablet 400 mg PO BID 02/02/17 [History Confirmed 06/25/21] mycophenolate mofetil 500 mg tablet 250 mg PO BID 02/02/17 [History Confirmed 06/25/21] pantoprazole 40 mg tablet,delayed release (Protonix) 40 mg PO DAILY 02/02/17 [History Confirmed 06/25/21] sertraline 50 mg tablet 50 mg PO DAILY 02/02/17 [History Confirmed 06/25/21] tacrolimus 0.5 mg capsule, immediate-release 0.5 tab PO BID 02/02/17 [History Confirmed 06/25/21] tacrolimus 1 mg capsule, immediate-release 1 tab PO BID 02/02/17 [History Confirmed 06/25/21] omega 4-dth-piu-fish oil 1,000 mg (120 mg-180 mg) capsule (Fish Oil) 1 tab PO BID 08/05/17 [History Confirmed 06/25/21] atorvastatin 80 mg tablet 80 mg PO DAILY 08/04/18 [History Confirmed 06/25/21] alogliptin 12.5 mg tablet 12.5 mg PO DAILY 06/25/21 [History Confirmed 06/25/21] calcium carbonate 250 mg-vitamin D3 3.125 mcg (125 unit) tablet (Oyster Shell + D3) tab 06/25/21 [History] carbidopa 25 mg-levodopa 100 mg tablet 0.5 tab PO TID 06/25/21 [History Confirmed 06/25/21] cholecalciferol (vitamin D3) 25 mcg (1,000 unit) tablet 2,000 unit PO DAILY 06/25/21 [History Confirmed 06/25/21] hydralazine 50 mg tablet 100 mg PO TID 06/25/21 [History Confirmed 06/25/21] insulin glargine 100 unit/mL subcutaneous solution 20 unit SUBCUT DAILY 06/25/21[History Confirmed 06/25/21] insulin lispro 100 unit/mL subcutaneous cartridge (Humalog U-100 Insulin) See RxInstructions .ROUTE .COMPLEX 06/25/21 [History Confirmed 06/25/21] isosorbide mononitrate 120 mg tablet,extended release 24 hr 120 mg PO DAILY 06/25/21 [History Confirmed 06/25/21] Exam Physical Exam Vital Signs: Temp Pulse Resp BP Pulse Ox 97.9 F 85 18 111/62 97 06/26/21 11:44 06/26/21 13:09 06/26/21 13:09 06/26/21 13:09 06/26/21 13:09 Const General: cooperative, comfortable and no acute distress Nutritional Appearance: average body habitus Orientation: alert, awake and oriented x3 HEENT Head: normal to inspection Mouth: oral mucosae normal and moist mucous membranes Teeth and gingiva: fair dentition Eyes Conjunctivae: conjunctivae normal Sclera: sclerae normal Pupils: PERRL EOM: EOM intact bilaterally Direct ophthalmoscopy: no photophobia Neck Neck: normal visual inspection, full ROM, no lymphadenopathy and supple Neck mass: No Carotids: normal carotid upstroke Lymphatic: no lymphadenopathy noted Chest Chest palpation & inspection: normal inspection of the chest Resp Effort & Inspection: normal respiratory effort Auscultation: clear to auscultation bilaterally Cardio Jugular venous pressure: no JVD Palpation: normal PMI Rate: regular rate Rhythm: regular rhythm Heart Sounds: S1 normal, S2 normal and gallop S4 gallop Pulses: radial pulses present, posterior tibial pulses present and dorsalis pedis present GI Inspection: normal to inspection Palpation: soft and no hepatosplenomegaly Percussion: normal to percussion Auscultation: normal bowel sounds Skin General: no rashes or lesions noted Trauma: no lacerations or abrasions Wounds: no wounds Neuro General: patient alert, patient awake, patient oriented x3, moves all extremities and no focal motor deficits Cranial Nerves: CN's II-XII intact bilaterally Motor: muscle tone normal throughout Sensory Exam: no sensory deficits noted Extrem General: full ROM and edema (1+ pitting edema bilateral lower extremity) Psych Appearance: grossly normal Mental Status: mental status grossly normal Mood: congruent mood Speech and Movement: speech and movement normal Attitude: cooperative Thought Process: normal Thought Content: normal Insight: insight good Judgment: judgment good Results Labs CBC & CMP: 06/25/21 19:30 06/26/21 07:15 Lab results: Cardiac Enzymes 06/25/21 06/25/21 Range/Units 19:30 19:30 AST 15 (10-42) U/L B-Natriuretic Peptide 165.0 H (5-100) pg/mL CBC 06/25/21 Range/Units 19:30 RBC 4.21 (3.90-5.60) x10E6/uL Hgb 11.8 L (13.0-17.0) g/dL Hct 36.2 L (38.8-50.0) % Plt Count 171 D (150-450) x10E3/uL Neut # (Auto) 5.6 (1.8-7.7) x10E3/uL Lymph # (Auto) 1.0 (1.00-4.8) x10E3/uL Cloud # (Auto) 0.5 (0.0-0.8) x10E3/uL Eos # (Auto) 0.3 (0.0-0.45) x10E3/uL Baso # (Auto) 0.0 (0.0-0.2) x10E3/uL Comprehensive Metabolic Panel 06/25/21 06/26/21 06/26/21 Range/Units 19:30 05:59 07:15 Sodium 142 140 (136-146) mmol/L Potassium 4.2 4.0 (3.5-5.1) mmol/L Chloride 106 105 (95-114) mmol/L Carbon Dioxide 24.1 23.8 (22.0-30.0) mmol/L BUN 41 H 39 H (9-23) mg/dL Creatinine 2.25 H 1.99 H (0.64-1.27) mg/dL Glucose 177 H 194 H (70-100) mg/dL Calcium 9.2 8.9 (8.2-10.2) mg/dL AST 15 (10-42) U/L ALT 13 (10-60) U/L Alkaline Phosphatase 57 (32-92) U/L Total Protein 6.6 (6.1-7.9) gm/dL Albumin 3.4 (3.2-5.5) gm/dL Intake and Output 06/25/21 06/26/21 06/26/21 23:59 07:59 15:59 Intake Total 120 / 120 200 / 200 Balance 120 / 120 200 / 200 Intake: Oral 120 / 120 200 / 200 Other: # Incontinent Voids 3 Weight 2230 kg 109.9 kg Date of Last Bowel Movement 06/25/21 06/25/21 Patient Weight 06/26/21 23:59 Weight 109.9 kg Lab 06/25/21 18:12 PT 11.9 INR 1.1 APTT 33.4 A&P - Cardiology (1) Bilateral edema of lower extremity: Assessment/Problem Details: Grossly this does not appear to be cardiogenic in origin. Bedside echocardiogram shows normal resting left ventricular regional wall motion and systolic function. This may in fact proved to be iatrogenic given that the patient is on multiple vasodilators for control of his hypertension (diltiazem and hydralazine and isosorbide). Plan: Agree with initial gentle diuresis. However the patient does not appear in volume overload and/or decompensated state. Monitor fluid output and renal function closely to avoid prerenal azotemia Code(s): R60.0 - Localized edema (2) History of heart transplant: Assessment/Problem Details: I see no clinical or echocardiographic evidence of acute rejection. Tacrolimus level is drawn and pending. Plan: Agree with transfer to transplant service at [facility] for further management. Code(s): Z94.1 - Heart transplant status Plan Thank you very much for this kind consultation and for allowing me to participate in the care of this very pleasant patient. Documented By: Bonilla Ortiz MD 06/26/21 1415 Signed By: <Electronically signed by Bonilla Ortiz MD> 06/26/21 1426 [facility] Work Phone: [phone] 112-835704-07-2022 History and physical note Author Omid Myrick [facility] June 26, 2021 7:44am Note Date/Time June 26, 2021 12:1 6am [facility] [address] [place] [address] Hospitalist H&P Signed Patient: Oliverio Escobedo MR#: [id number] : 1945 Acct:[id number] Age/Sex: 75 / M Adm Date: 2 Loc: 3T Room: [address] [place] [address] Type : ADM INOo Attending Dr: Yoshi Hernandez MD Copies to: MD Manfred Olvera([facility]) DO Audra Wilson APRN Marwan Wassouf, MD~ HPI DATE OF EXAMINATION: 06/25/21 CHIEF COMPLAINT: Shortness of breath. HISTORY OF PRESENT ILLNESS: Mr. Maradiaga is a 75-year-old male with a PMHx of Burkitt's lymphoma, CVA with left-sided weakness, diabetes, hypertension, hypothyroidism, and heart transplant in 2000 [facility] of bilateral legs and right arm. reports that symptoms have been ongoing for the past 2 weeks and they have been trying to schedule an appointment with [facility] regulatory compliance engineer but were unable. Patient is hard of hearing, but currently he denies shortness of breath, chest pain,palpitation, fatigue, weakness, swelling in abdomen or profound weight gain. He has had no fevers and reports good urinary output. Upon arrival to the ER, Blood pressure was elevated at 200/85. Chest x-ray was negative for acute pulmonary pathology. Creatinine 2.5. Troponin and BNP unremarkable. He was administered hydralazine 10 mg IV. Patient will be admitted for further evaluation and treatment. Review of Systems Review of Systems All other systems reviewed & are negative unless noted below or in HPI PMFSH Vaccinated for COVID-19?: Yes Medical History (Updated 06/26/21 @ 00:23 by Audra Quinteros APRN) Diabetes HTN (hypertension) Surgical History (Updated 06/25/21 @ 22:29 by Andrew Hernández DO) History of heart transplant Family History Other Hypertension Social History Smoking Status: Former smoker Substance Use Type: None Meds Medications and Allergies Allergies allopurinol Allergy (Verified 06/25/21 23:36) Rash cefazolin Allergy (Verified 06/25/21 23:36) Rash Home Medications alendronate 35 mg tablet 35 mg PO QWEEK 02/02/17 [History Confirmed 06/25/21] aspirin 81 mg tablet,delayed release 81 mg PO DAILY 02/02/17 [History Confirmed 06/25/21] clopidogrel 75 mg tablet (Plavix) 75 mg PO DAILY 02/02/17 [History Confirmed 06/25/21] diltiazem HCl 120 mg capsule,24 hr,extended release 240 mg PO DAILY 02/02/17 [History Confirmed 06/25/21] levothyroxine 75 mcg capsule 75 mcg PO DAILY 02/02/17 [History Confirmed 06/25/21] magnesium oxide 400 mg (241.3 mg magnesium) tablet 400 mg PO BID 02/02/17 [History Confirmed 06/25/21] mycophenolate mofetil 500 mg tablet 250 mg PO BID 02/02/17 [History Confirmed 06/25/21] pantoprazole 40 mg tablet,delayed release (Protonix) 40 mg PO DAILY 02/02/17 [History Confirmed 06/25/21] sertraline 50 mg tablet 50 mg PO DAILY 02/02/17 [History Confirmed 06/25/21] tacrolimus 0.5 mg capsule, immediate-release 0.5 tab PO BID 02/02/17 [History Confirmed 06/25/21] tacrolimus 1 mg capsule, immediate-release 1 tab PO BID 02/02/17 [History Confirmed 06/25/21] omega 0-rjq-vns-fish oil 1,000 mg (120 mg-180 mg) capsule (Fish Oil) 1 tab PO BID 08/05/17 [History Confirmed 06/25/21] atorvastatin 80 mg tablet 80 mg PO DAILY 08/04/18 [History Confirmed 06/25/21] alogliptin 12.5 mg tablet 12.5 mg PO DAILY 06/25/21 [History Confirmed 06/25/21] calcium carbonate 250 mg-vitamin D3 3.125 mcg (125 unit) tablet (Oyster Shell + D3) tab 06/25/21 [History] carbidopa 25 mg-levodopa 100 mg tablet 0.5 tab PO TID 06/25/21 [History Confirmed 06/25/21] cholecalciferol (vitamin D3) 25 mcg (1,000 unit) tablet 2,000 unit PO DAILY 06/25/21 [History Confirmed 06/25/21] hydralazine 50 mg tablet 100 mg PO TID 06/25/21 [History Confirmed 06/25/21] insulin glargine 100 unit/mL subcutaneous solution 20 unit SUBCUT DAILY 06/25/21[History Confirmed 06/25/21] insulin lispro 100 unit/mL subcutaneous cartridge (Humalog U-100 Insulin) See RxInstructions .ROUTE .COMPLEX 06/25/21 [History Confirmed 06/25/21] isosorbide mononitrate 120 mg tablet,extended release 24 hr 120 mg PO DAILY 06/25/21 [History Confirmed 06/25/21] Exam Physical Exam Vital Signs: Temp Pulse Resp BP Pulse Ox 98.7 F 88 16 206/91 H 94 L 06/25/21 18:05 06/25/21 23:21 06/25/21 23:21 06/25/21 23:21 06/25/21 23:21 Narrative: CONST- Appears well -developed and well nourished No acute distress. HEAD - Normocephalic and atraumatic EENT-Sclera nonicteric and conjunctive are nonerythemic, moist oral mucosa, pharynx clear NECK-Supple, no cervical lymphadenopathy CARDIAC-normal rate, regular rhythm, normal S1 & S2. PULM-diminished without wheeze or rhonchi, RA, no accessory muscle use or cough noted ABD - Soft. Bowel sounds are normal. No distention No tenderness EXTREM- right arm and bilateral lower extremity edema +3 SKIN-raised red rash all over body MS- MAEX4 spontaneously with equal with equal strength NEURO- A&Ox3 speech clear and tongue midline, equal facial symmetry no focal motor deficits PSYCH-Mood, affect and behavior appropriate Results Lab Results Labs: Laboratory Last Values Corrected WBC 7.5 X10E3/uL (4.1-10.5) 06/25/21 19:30 Uncorrected WBC Count 7.5 x10E3/uL (4.5-11.0) 06/25/21 19:30 RBC 4.21 x10E6/uL (3.90-5.60) 06/25/21 19:30 Hgb 11.8 g/dL (13.0-17.0) L 06/25/21 19:30 Hct 36.2 % (38.8-50.0) L 06/25/21 19:30 MCV 86.0 fl (83.5-101) 06/25/21 19:30 MCH 28.1 pg (27.5-35.2) 06/25/21 19:30 MCHC 32.7 g/dL (32.5-35.6) 06/25/21 19: RDW 16.1 % (12.0-14.8) H 06/25/21: Plt Count 171 x10E3/uL (150-450) D 06/25/21: MPV 10.0 fl (6.6-10.1) 06/25/21: Neut % (Auto) 74.6 % (.) 06/25/21: Lymph % (Auto) 12.9 % (.) 06/25/21: Cloud % (Auto) 7.3 % (.) 06/25/21: Eos % (Auto) 4.6 % (.) 06/25/21: Baso % (Auto) 0.6 % (.) 06/25/21: Neut # (Auto) 5.6 x10E3/uL (1.8-7.7) 06/25/21: Lymph # (Auto) 1.0 x10E3/uL (1.00-4.8) 06/25/21: Cloud # (Auto) 0.5 x10E3/uL (0.0-0.8) 06/25/21: Eos # (Auto) 0.3 x10E3/uL (0.0-0.45) 06/25/21: Baso # (Auto) 0.0 x10E3/uL (0.0-0.2) 06/25/21: Nucleated RBC % (auto) 0.1 % (0-0.5) 06/25/21 19: ESR 39 mm/hr (0-19) H 06/25/21 19:30 PT 11.9 Seconds (9.0-12.9) 06/25/21 18:12 INR 1.1 06/25/21 18:12 APTT 33.4 Seconds (25.1-36.5) 06/25/21 18:12 PHA Creatinine Clear 365.00 06/25/21 19:30 Sodium 142 mmol/L (136-146) 06/25/21: Potassium 4.2 mmol/L (3.5-5.1) 04/06/22 19:30 Chloride 106 mmol/L (95-114) 06/25/21 19: Carbon Dioxide 24.1 mmol/L (22.0-30.0) 06/25/21 19:30 BUN 41 mg/dL (9-23) H 06/25/21 19:30 Creatinine 2.25 mg/dL (0.64-1.27) H 06/25/21 19:30 Est GFR ( Amer) 34 mL/Min 06/25/21 19:30 Est GFR (Non-Af Amer) 28 mL/Min 06/25/21 19:30 Glucose 177 mg/dL (70-100) H 06/25/21 19: Calcium 9.2 mg/dL (8.2-10.2) 06/25/21: Total Bilirubin 0.4 mg/dL (0.3-1.2) 06/25/21:30 AST 15 U/L (10-42) 06/25/21: ALT 13 U/L (10-60) 06/25/21: Alkaline Phosphatase 57 U/L (32-92) 06/25/21: Troponin I High Sens 12 pg/mL (0-20) 06/25/21: C-Reactive Prot, Quant 0.9 mg/dL (0.0-1.0) 06/25/21: B-Natriuretic Peptide 165.0 pg/mL (5-100) H 06/25/21: Total Protein 6.6 gm/dL (6.1-7.9) 06/25/21: Albumin 3.4 gm/dL (3.2-5.5) 06/25/21: Globulin 3.2 gm/dL 06/25/21: Albumin/Globulin Ratio 1.1 06/25/21 19:30 SARS Antigen (LFIA) Negative (Negative) 06/25/21 20:00 Microbiology Results Micro: Microbiology - Results from entire visit 06/25/21 20:00 Nasal SARS Antigen (LFIA) - Final A&P - Hospitalist Assessment/Plan (1) Shortness of breath: (2) Bilateral edema of lower extremity: Plan Shortness of breath /Volume overload/ bilateral edema of lower extremity, right arm-presents with increasing swelling of bilateral legs and right arm for the past 2 weeks. He had associated symptoms of shortness of breath with exertion. He has been trying to make an appointment with cardiology outpatient for severalweeks but was unable. ?Currently with no shortness of breath. Chest x-ray in the ED with no acute pulmonary pathology ?No recent echo on file, last echo 10/17/2018 with EF of 60 to 65%. Echo in a.m. ?Ultrasound of right upper extremity pending to rlo blood clot. ?Start Lasix twice daily ?BMP daily ?Consult cardiology CKD baseline appears to be between 1.8-2. Chronic conditions 1. Hypertension -on hydralazine 2. Diabetes-sliding scale insulin, BS before meals and at bedtime 3. Parkinson's disease?on carbidopa/levodopa 4. CVA?on aspirin, clopidogrel 5. Hypothyroidism?on levothyroxine 6. Burkitt's lymphoma 7. Heart transplant 2001- CODE STATUS: Full code. Discussed with patient and at bedside DVT prophylaxis: Heparin Attending Physician Attestation: I personally saw this patient on the day of the encounter, reviewed the history,performed the summers elements of the exam, formulated the plan of care and confirmed the written note. I agree with the findings and plan as documented in this note and have edited it if needed to reflect my findings and plan. Omid Myrick MD Documented By: Audra Quinteros APRN 06/25/21 8405 Signed By: <Electronically signed by GABBIE Quinteros> 06/26/21 0057 <Electronically signed by Omid Myrick MD> 06/26/21 9044 [facility] Work Phone: 1(115) 997-158609-30-2021 Evaluation note* Diagnosis [place] coma scale total score 13-15, at hospital admission- Primary Acute kidney injury (HCC) Acute kidney failure, unspecified Heart replaced by transplant (HCC) Heart replaced by transplant Confusion Unspecified psychosis [facility] Work Phone: 1(854) 433-779309-30-2021 History of Present illness Narrative* 74 yo male with a hx of heart transplant in 2000 PMH significant for Birkett s lymphoma 2016, likely PTLD, CVA with R sided weakness,DM, hypothyroidism, subclavian arterial stenosis, white coat HTN and BPH. He presents today for a post-hospital follow up for DAVID and depression via telephone virtualvisit. * Interval Hx: * Admitted 12/19 - 12/24 for DAVID and depression. Pt states he was not eating, drinking, or taking his medications when at his SNF. Palliative medication and psych consulted; started on sertraline 50 mg daily, stopped trazodone, trazodone and aripirazole. Discharged back to [facility] with 2x/week home trips. * Immunosuppression: MMF 250 mg BID, tacrolimus 1.5 mg BID (FK 5.4 on 12/24/20, goal 5-8) * Rejection Hx/DSAs: None documented * Last echo: 12/20/20 [id number] Heather [address] [place] Work Phone: [phone] 440-341309-28-2021 History of Present illness Narrative* Liliya Baker RN - 12/17/2020 10:31 AM EDT Spoke with nurse from [facility] at this time. They will fax lab work to us from [facility]. documented in this [facility] Work Phone: [phone] History of Present illness Narrative* Mr. Escobedo is a 76 y/o M with a PMHx sig for OHT (07/05/2000), Birkett s lymphoma/suspected PTLD (2015), CVA with R sided weakness, DM, hypothyroidism, subclavian arterial stenosis, HTN, Parkinsons, and BPH who presents for a 22 year post transplant visit via virtual visit. * Interval Hx: He has had no hospitalization in the interim since last visit in September 2021. He continues to live in senior care. He has started Zoloft for depression. 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 Needs assistance with transfers. He has not had any new doctors appointmetns. * Immunosuppression: MMF 250 mg BID, tacrolimus 1 mg BID (FK 11.0 on 10/10/21, goal 5-8) * Rejection Hx/DSAs: None documented * Last echo: 12/20/20 [id number] Heather [address] Work Phone: Chief complaint Narrative - Reported* OLIVERIO ESCOBEDO is being seen for a consultation for heart transplant and B/L LE edema. * An interactive audio and video telecommunication system which permits real time communications between the patient (at the originating site) and provider (at the distant site) was utilized to providethis telehealth service. * Verbal consent was requested and obtained from OLIVERIO ESCOBEDO on this date, 06/25/2021 04:20 PM , for a telehealth visit. [id number] Heather [address] [place] Work Phone: Evaluation noteNo assessment information available [facility] Work Phone: Evaluation note* Diagnosis Onset Date Resolution Status Acute kidney injury acute Bilateral edema of lower extremity acute Shortness of breath acute [facility] Work Phone: Evaluation note* Diagnosis Onset Date Resolution Status Acute kidney injury acute Bilateral edema of lower extremity acute History of heart transplant acute Shortness of breath acute [facility] Work Phone: Evaluation note* Psychological: Appropriate mood and behaviorExtremities: 1+ edema of all 4 extremities, no cyanosis, contusions or wounds, no clubbingGastrointestinal: Nondistended, soft, non-tender, no rebound tenderness or guarding, no masses palpable, no organomegaly, +BS, no bruitsCardiovascular: Regular, rateand rhythm, no murmurs, 2+ equal pulses of the extremities, normal S 1and S 2Respiratory/Thorax: Patent airways, CTAB, normal breath sounds with good chest expansion, thorax symmetricEyes: EOMI, clear scleraSkin: Warm and dry, no lesions, no rashesConstitutional: Well developed, awake/alert/oriented x3, no distress, alert and cooperative, hard of hearing [facility]* Mr. Escobedo is a 75 y/o M with a PMHx sig for OHT (2000), Birkett s lymphoma/suspected PTLD (2015), CVA with R sided weakness, DM, hypothyroidism, subclavian arterial stenosis, HTN, Parkinsons, and BPHwho presents for a post-hospitalization follow up for DAVID and depression. * A virtual visit was performed today due to the current COVID pandemic. * Interval Hx: * Admitted 12/19 - 12/24 for DAVID and depression. Pt states he was not eating, drinking, or taking his medications when at his SNF. Palliative medication and psych consulted; started on sertraline 50 mg daily, stopped trazodone, trazodone and aripirazole. Discharged back to [facility] with 2x/week home trips. * Immunosuppression: MMF 250 mg BID, tacrolimus 1.5 mg BID (FK 5.4 on 12/24/20, goal 5-8) * Rejection Hx/DSAs: None documented * Last echo: 12/20/20 [id number] AUPEO! [address] [place] Work Phone: History of Present illness Narrative* Mr. Escobedo is a 75 y/o M with a PMHx sig for OHT (2000), Birkett s lymphoma/suspected PTLD (2015), CVA with R sided weakness, DM, hypothyroidism, subclavian arterial stenosis, HTN, Parkinsons, and BPHwho presents for an urgent evaluation for B/L LE edema. * A virtual visit was performed today due to the current COVID pandemic. * Interval Hx: * Received communication from pt's daughter regarding concern for B/L LE edema. Spoke with RN at [facility]; states LE edema has been ongoing for several weeks, with a rash . * Labs drawn 06/24/21; BNP 224 * Immunosuppression: MMF 250 mg BID, tacrolimus 1.5 mg BID (FK 5.4 on 12/24/20, goal 5-8) - FK pendingfrom 06/24/21 from SNF * Rejection Hx/DSAs: None documented * Last echo: 12/20/20 [id number] AUPEO! [address] [place] Work Phone: History of Present illness Narrative* Mr. 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 * A virtual visit was performed today due to the current COVID pandemic. * Interval Hx: * Admitted 06/27/21 - 07/03/21 from SNF for LE edema and leg rash ; diffuse body rash diagnosed by dermatology as scabies on 07/01/21. Repeat vascular US RUE perfromed on 06/26/21 negative for DVT. Hypertensive during admission; Cardizem increased to 300 mg daily and added clonidine 0.1 mg BID. * During admission, goals of care discussion with palliative medicine 07/01/21: pt and reaffirm wishes for DNAR/DNI. However, on 07/03/21 pt's states being confused the day she signed the form and the pt's and pt's daughter (share POAs) reversed this; pt is a full code. * Medications reviewed with SNF * Pt states he is feeling better since discharge * Patient denies CP, palpitations, BARRON, orthopnea, PND. No edema noted in BLE. * Permethrin second treatment completed 07/06/21. Bedside RN states lesions have resolved; slight redness throughout. * RUE cellulitis identified last week; cultures came back today positive for MRSA. Is currently on Bactrim SS. * BGs elevated; Lantus increased to 12 units BID. * BPs 150-160s/70-80s. Denies ORTEGA, vision changes, dizziness, lightheadedness * Immunosuppression: MMF 250 mg BID, tacrolimus 1.5 mg BID (FK 5.5 on 07/03/20, goal 5-8) * Rejection Hx/DSAs: None documented * Last echo: 12/20/20 CP-Miuvsmgrsi-NFG Heather Vallecillo [address] [place] Work Phone: History of Present illness Narrative* Mr. 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 * A virtual visit was performed today due to the current COVID pandemic. * Interval Hx: * Admitted 06/27/21 - 07/03/21 from SNF for LE edema and leg rash ; diffuse body rash diagnosed by dermatology as scabies on 07/01/21. Repeat vascular US RUE performed on 06/26/21 negative for DVT. Hypertensive during admission; Cardizem increased to 300 mg daily and added clonidine 0.1 mg BID. * During admission, goals of care discussion with palliative medicine 07/01/21: pt and reaffirm wishes for DNAR/DNI. However, on 07/03/21 pt's states being confused the day she signed the form and the pt's and pt's daughter (share POAs) reversed this; pt is a full code. * Medications reviewed with SNF * Pt states he is feeling better since discharge * Patient denies CP, palpitations, BARRON, orthopnea, PND. No edema noted in BLE. * Permethrin second treatment completed 07/06/21. Bedside RN states lesions have resolved; slight redness throughout. * RUE cellulitis identified last week; cultures came back today positive for MRSA. Is currently on Bactrim SS. * BGs elevated; Lantus increased to 12 units BID. * BPs 150-160s/70-80s. Denies ORTEGA, vision changes, dizziness, lightheadedness * Immunosuppression: MMF 250 mg BID, tacrolimus 1.5 mg BID (FK 5.5 on 07/03/20, goal 5-8) * Rejection Hx/DSAs: None documented * Last echo: 12/20/20 KT-Yexobtnfau-GPP Heather Vallecillo [address] [place] Work Phone: History of Present illness Narrative* Mr. 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 * A tele visit was performed today. * Interval Hx: * Clonidine increased at last office visit; documented BPs at the SNF 120-130s/70-80s. * Benadryl 25 mg q6h PRN for itching/dry skin. * Immunosuppression: MMF 250 mg BID, tacrolimus 1.5 mg BID (FK 5.5 on 07/03/21, goal 5-8) - FK level pending from 10/11/21 * Rejection Hx/DSAs: None documented * Last echo: 12/20/20 AX-Hjtnrqrnza-CSO Heather Vallecillo [address] [place] Work Phone: Reason for referral (narrative)* Reason for Referral: HF, DAVID, scabies [facility] Family History No Family History Records FoundUnknown Family Member Name Dates Details Family history of congestive heart failure: Mother(V17.49, Z82.49) Comments: at 61; Status:Active Family history of stroke: Fa ther(V17.1, Z82.3) Status:Active Unknown Family Member Name Dates Details Family history of stroke: Fa ther(V17.1, Z82.3) Status:Active Family history of congestive heart failure: Mother(V17.49, Z82.49) Comments: at 61; Status:Active Unknown Family Member Name Dates Details Family history of congestive heart failure: Mother(V17.49, Z82.49) Comments: at 61; Status:Active Family history of stroke: Fa ther(V17.1, Z82.3) Status:Active Unknown Family Member Name Dates Details Family history of congestive heart failure: Mother(V17.49, Z82.49) Comments: at 61; Status:Active Family history of stroke: Fa ther(V17.1, Z82.3) Status:Active Unknown Family Member Name Dates Details Family history of congestive heart failure: Mother(V17.49, Z82.49) Comments: at 61; Status:Active Family history of stroke: Fa ther(V17.1, Z82.3) Status:Active Unknown Family Member Name Dates Details Family history of congestive heart failure: Mother(V17.49, Z82.49) Comments: at 61; Status:Active Family history of stroke: Fa ther(V17.1, Z82.3) Status:Active Relationship Condition Age at Onset Recorded Date/T chyna Not Specified Hypertension Unknown Unknown Family Member Name Dates Details Family history of congestive heart failure: Mother(V17.49, Z82.49) Comments: at 61; Status:Active Family history of stroke: Fa ther(V17.1, Z82.3) Status:Active Unknown Family Member Name Dates Details Family history of congestive heart failure: Mother(V17.49, Z82.49) Comments: at 61; Status:Active Family history of stroke: Fa ther(V17.1, Z82.3) Status:Active Unknown Family Member Name Dates Details Family history of congestive heart failure: Mother(V17.49, Z82.49) Comments: at 61; Status:Active Family history of stroke: Fa ther(V17.1, Z82.3) Status:Active Unknown Family Member Name Dates Details Family history of congestive heart failure: Mother(V17.49, Z82.49) Comments: at 61; Status:Active Family history of stroke: Fa ther(V17.1, Z82.3) Status:Active Unknown Family Member Name Dates Details Family history of congestive heart failure: Mother(V17.49, Z82.49) Comments: at 61; Status:Active Family history of stroke: Fa ther(V17.1, Z82.3) Status:Active Unknown Family Member Name Dates Details Family history of stroke: Fa ther(V17.1, Z82.3) Status:Active Family history of congestive heart failure: Mother(V17.49, Z82.49) Comments: at 61; Status:Active Unknown Family Member Name Dates Details Family history of congestive heart failure: Mother(V17.49, Z82.49) Comments: at 61; Status:Active Family history of stroke: Fa ther(V17.1, Z82.3) Status:Active Unknown Family Member Name Dates Details Family history of congestive heart failure: Mother(V17.49, Z82.49) Comments: at 61; Status:Active Family history of stroke: Fa ther(V17.1, Z82.3) Status:Active Unknown Family Member Name Dates Details Family history of congestive heart failure: Mother(V17.49, Z82.49) Comments: at 61; Status:Active Family history of stroke: Fa ther(V17.1, Z82.3) Status:Active Chief Complaint * OLIVERIO ESCOBEDO is being seen for follow-up of a hospitalization for heart transplant and DAVID, depression. * A telephone visit (audio only) between the patient (at the originating site) and the provider (at the distant site) was utilized to provide this telehealth service. * Verbal consent was requested and obtained from OLIVERIO ESCOBEDO on this date, 01/01/2021 02:20 PM , for a telehealth visit. * OLIVERIO ESCOBEDO is being seen for follow-up of a hospitalization for heart transplant and DAVID, depression. * An interactive audio and video telecommunication system which permits real time communications between the patient (at the originating site) and provider (at the distant site) was utilized to providethis telehealth service. * Verbal consent was requested and obtained from OLIVERIO ESCOBEDO on this date, 01/01/2021 02:20 PM , for a telehealth visit. * OLIVERIO ESCOBEDO is being seen for follow-up of a hospitalization for heart transplant and B/L LE edema, scabies. * An interactive audio and video telecommunication system which permits real time communications between the patient (at the originating site) and provider (at the distant site) was utilized to providethis telehealth service. * Verbal consent was requested and obtained from OLIVERIO ESCOBEDO on this date, 07/16/2021 03:00 PM , for a telehealth visit. * OLIVERIO ESCOBEDO is being seen for follow-up of a hospitalization for heart transplant and B/L LE edema, scabies. * An interactive audio and video telecommunication system which permits real time communications between the patient (at the originating site) and provider (at the distant site) was utilized to providethis telehealth service. * Verbal consent was requested and obtained from OLIVERIO ESCOBEDO on this date, 07/16/2021 03:00 PM , for a telehealth visit. * OLIVERIO ESCOBEDO is being seen for a 3 month follow-up of heart transplant and B/L LE edema, scabies. * A telephone visit (audio only) between the patient (at the originating site) and the provider (at the distant site) was utilized to provide this telehealth service. * Verbal consent was requested and obtained from OLIVERIO ESCOBEDO on this date, 10/15/2021 01:00 PM , for a telehealth visit. * OLIVERIO ESCOBEDO is being seen for an annual follow-up of heart transplant. * A telephone visit (audio only) between the patient (at the originating site) and the provider (at the distant site) was utilized to provide this telehealth service. * Verbal consent was requested and obtained from OLIVERIO ESCOBEDO on this date, 07/13/2022 01:40 PM , for a telehealth visit. Chief Complaint and Reason for Visit Chief Complaint CKD3 Chief Complaint CKD3 bilat leg swelling Reason for Visit Acute kidney injury Bilateral edema of lower extremity Shortness of breath Chief Complaint CKD3 bilat leg swelling Reason for Visit Acute kidney injury Bilateral edema of lower extremity History of heart transplant Shortness of breath Advance Directives No Advanced Directives Records Found Advance Directive Response Recorded Date/ Time Advance Directives No May 29, 2 022 3:01pm Summary Purpose Additional Source Comments Reason for Visit (unrecogniz ed section and content) Reason Comments Altered Mental Status onset 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; staff state pt would not respond and stared off into space Hypotension PERPETUAL INVENTORY CLERK staff from [place] r[place] state BP 70s/ANGELICA diastolic Scheduled Active and Recently Administ ered Medications (unrecognized section and content) Medication Order 12/17/2020 12/18/2020 12/19/2020 0.9 % sodium chloride bolus (COMPLETED) 250 mL, IntraVENous, at 250 mL/hr, Administer over 1 Hours, ONCE, On Wed12/17/20 at 1315, For 1 dose 1404 (New Bag - Provider: Sola Dee RN)1450 (Stopped - Provider: Sola Dee, IMANI) aspirin chewable tablet 81 mg 81 mg, Per NG tube, DAILY, First dose on Wed12/18/20 at 1400 1431 (Given - Provider: Sola Dee RN) 1029 (Given - Provider: Minesh Zheng, IMANI) clopidogrel (PLAVIX) tablet 75 mg 75 mg, Per NG tube, DAILY, First dose on Wed12/18/20 at 1400 1431 (Given - Provider: Sola Dee RN) 1029 (Given - Provider: Minesh Zheng, RN) dilTIAZem (CARDIZEM) tablet 120 mg 120 mg, Per NG tube, 3 TIMES DAILY, First dose (after last modification) on Wed12/18/20 at 2100 2128 (Given - Provider: Minesh Zheng, RN) 1032 (Given - Provider: Minesh Zheng, RN)1456 (Given - Provider: Minesh Zheng, RN)2000 (Given - Provider: Minesh Zheng, RN) dilTIAZem (CARDIZEM) tablet 240 mg (CANCELED) 240 mg, Per NG tube, 3 TIMES DAILY, First dose on Wed12/18/20 at 1400 1440 (Given - Provider: Sola Dee, IMANI) hydrALAZINE (APRESOLINE) injection 5 mg (COMPLETED) 5 mg, IntraVENous, ONCE, On Smiley 12/19/20 at 0730, For 1 dose 0750 (Given - Provider: Agnes Davies RN) hydrALAZINE (APRESOLINE) tablet 50 mg (COMPLETED) 50 mg, Oral, ONCE, On Wed12/18/20 at 0830, For 1 dose 0842 (Given - Provider: Liliya Baker RN) hydrALAZINE (APRESOLINE) tablet 50 mg 50 mg, Per NG tube, 3 TIMES DAILY, First dose on Wed12/18/20 at 1400 1440 (Given - Provider: Sola Dee RN)2128 (Given - Provider: Minesh Zheng RN) 1029 (Given - Provider: Minesh Zheng RN)1456 (Given - Provider: Minesh Zheng RN - Comment: BP 172/64)2000 (Given - Provider: Minesh Zheng RN) labetalol (NORMODYNE;TRANDATE) injection 10 mg (COMPLETED) 10 mg, IntraVENous, ONCE, On Smiley 12/19/20 at 0615, For 1 dose 0632 (Given - Provider: Agnes Davies, IMANI) lisinopril (PRINIVIL;ZESTRIL) tablet 10 mg 10 mg, Per NG tube, DAILY, First dose on Wed12/18/20 at 1400 1431 (Given - Provider: Sola Dee RN) 1032 (Given - Provider: Minesh Zheng, IMANI) mycophenolate (CELLCEPT) capsule 250 mg 250 mg, Oral, 2 TIMES DAILY, First dose on Wed12/18/20 at 1600, Give via NG TUBE is suspension with MINIMUM of SIZE 8 SPANISH 1500 (Given - Provider: Sola Dee RN)2128 (Given - Provider: Minesh Zheng RN) 1037 (Given - Provider: Minesh Zheng RN)2001 (Given - Provider: Minesh Zheng RN - Comment: pt scheduled to leave around 2029, med given early) sertraline (ZOLOFT) tablet 150 mg 150 mg, Per NG tube, DAILY, First dose on Wed12/18/20 at 1345 1440 (Given - Provider: Sola Dee RN) 1029 (Given - Provider: Minesh Zheng, IMANI) tacrolimus (proGRAF) capsule 1.5 mg 1.5 mg, Per NG tube, 2 TIMES DAILY, First dose on Wed12/18/20 at 1415 1445 (Given - Provider: Sola Dee RN)2128 (Given - Provider: Minesh Zheng RN) 1036 (Given - Provider: Minesh Zheng RN)2002 (Given - Provider: Minesh Zheng RN - Comment: pt scheduled to leave around 2029, med given early) Care Teams (unrecognized sec tion and content) Team Status: Inactive Member Role Status Dates Michael Carballo MD Primary Care Provider Active JIL Donnelly Attending Provider Active Team Status: Active Member Role Status Dates Michael Carballo MD Primary Care Provider Active Team Status: Active Member Role Status Dates Manfred Wilson DO Primary Care Provider Active Andrew Hernández DO Emergency Provider Active Omid Myrick MD Admit Provider, Attending Provider Active Team Status: Active Member Role Status Dates Manfred Wilson DO Primary Care Provider Active Team Status: Inactive Member Role Status Dates Manfred Wilson DO Primary Care Provider Active Andrew Hernández DO Emergency Provider Active Omid Myrick MD Admit Provider Active Yoshi Hernandez MD Attending Provider Active Education Managers Relationship Specialty Start Date End Date Michael Carballo [address] [place] [address] PCP - General Specialist 12/17/20 Goals (unrecognized section and content) Goals may be documented in a n alternate sectionGoals may be documented in an alternate sectionGoals may be documented in an alternate section <item> Privacy Markings (unrecogniz ed section and content) Section Author: Michael Pérez PROHIBITION ON REDISCLOSURE OF CONFIDENTIAL INFORMATION This notice accompanies a disclosure of information concerning a client made to you with the consent of such client. (unrecognized sect ion and content) No Status Records FoundNo Status Records FoundNo Status Records FoundNo Status Records FoundNo Status Records FoundNo Status Records FoundNo Status Records Found INFORMATION SOURCE (unrecogn ized section and content) DATE CREATED AUTHOR 07/14/2021 [facility] DATE CREATED AUTHOR AUTHOR'S ORGANIZ ATION 04/18/2022 [facility] DATE CREATED AUTHOR AUTHOR'S ORGANIZ ATION 07/17/2022 [employer] DATE CREATED AUTHOR AUTHOR'S ORGANIZ ATION 07/31/2022 [facility] DATE CREATED AUTHOR AUTHOR'S ORGANIZ ATION 09/07/2022 [facility] DATE CREATED AUTHOR AUTHOR'S ORGANIZ ATION 09/14/2022 [facility] DATE CREATED AUTHOR AUTHOR'S ORGANIZ ATION 11/21/2022 [facility] FOR RECORDS PERTAINING TO PATIENTS WHO ARE OR HAVE BEEN ENROLLED IN A CHEMICAL DEPENDENCY/SUBSTANCEABUSE PROGRAM, SOME INFORMATION MAY BE OMITTED. This clinical summary was aggregated from multiple sources. Caution should be exercised in using it in the provision of clinical care. This summary normalizes information from multiple sources, and as a consequence, information in this document may materially change the coding, format and clinical context of patient data. In addition, data may be omitted in some cases. CLINICAL DECISIONS SHOULD BE BASED ON THE PRIMARY CLINICAL RECORDS. [employer] provides no warranty or guarantee of the accuracy or completeness of information in this document.
--- OUTSIDE RECORDS SUMMARY | 2023-04-15 11:34 | XMS_ITS | CCD ---
Author Name Unknown Address [address] [place] [address] Organization [facility] Care Team Providers Care Surgical Specialist Name Role Phone Michael Carballo Unavailable Unavailable Unavailable Michael Carballo Primary Care Provider [phone] MD Michael Carballo Primary Care Provider [phone] JIL Davies Attending Provider DO Manfred Wilson [facility] Andrew Hern[facility]dez Emergency Provider [phone] MD Omid Myrick Admit Provider MD Omid Myrick Attending Provider [phone] Al MD Yoshi Campoverde Attending Provider Michael [...] ., DR MICHAEL Palomino Primary Care Unavailable MICHEAL COOK Admitting Unavailable MICHAEL COOK Attending Unavailable [...] sources) Allopurinol; Translations: [allopurinol] Drug Allergy 10-16-2018 [facility] (8 sources) ceFAZolin; Translations: [Cefazolin] Drug Allergy 06-25-2021 Rash, Unknown [facility] Comment on above: extensive fiery red and warm flat rash (1 source) Allopurinol Drug Allergy [facility] (1 source) ceFAZolin Drug Allergy [facility] (1 source) Allopurinol Drug Allergy 06-25-[address] [facility] Rep[facility] Medications Current Medications Medication Drug [...] Start: 11-03-2018 take 1 capsule by [facility] once daily in the evening dilTIAZem HCl ER Coated Beads 300 MG Oral Capsule Extended Release 24 Hour take 1 capsule every evening Quantity: 0 Refills: 0 Ordered: 04-Jul-2021 Felicia Astorga DO Start : 03-Nov-2018 Active Start: 11-03-2018 take 1 capsule by [facility] once daily dilTIAZem HCl ER Coated Beads 360 MG Oral Capsule Extended Release 24 Hour TAKE 1 CAPSULE Daily Quantity: 30 Refills: 11 Ordered: 03-Nov-2018 Felicia Astorga DO Start : 03-Nov-2018 Active Start: 11-03-2018 take 1 capsule by [facility] once daily dilTIAZem HCl ER Coated Beads 240 MG Oral Capsule Extended Release 24 Hour TAKE 1 CAPSULE Daily Quantity: 90 Refills: 3 Ordered: 24-Dec-2020 Felicia Astorga DO Start : 03-Nov-2018 Active Start: 10-31-2018 take 1 capsule by [facility] every twenty-four hours dilTIAZem 240 [...] mg Start: 10-31-2018 take 1 tablet by [facility] three times daily hydrALAZINE HCl [...] mg Start: 11-02-2018 take 1 capsule by [facility] every twelve hours Mycophenolate Mofetil [...] Tamiko Dsouza Status: Discontinued Generic Substitution Allowed Wasta 3-Uow-Wjs-Fish Oil (Fish Oil) 1,000 mg (120 mg-180 mg) Capsule (4 sources) Start: 08-05-2017 take 1 tablet by mouth twice daily Wasta 2-Jrk-Kos-Fish Oil (Fish Oil) 1,000 mg (120 mg-180 mg) Capsule Active 1 TAB PO Twice daily August 05, 2017 11:13am Start: 08-05-2017 take 1 tablet by anila th once daily Wasta 6-Ycw-Niw-Fish Oil (Fish Oil) 1,000 mg (120 mg-180 mg) Capsule Active 1 TAB PO Daily August 05, 2017 11:13am Start: 08-05-2017 take 1 tablet by anila th twice daily Wasta 8-Ftt-Ndp-Fish Oil (Fish Oil) 1,000 mg (120 mg-180 [...] tube 2 times a day only on Zoopgk-Qpawgryjy-Bdekoh Quantity: 24 Refills: 0 Ordered: 21-Jan-2016 Warren [...] possible liver damage. take 2 tablets by [facility] every six hours as needed [...] Active Start: 10-15-2021 take 2 tablets by [facility] once daily busPIRone HCl - 10 MG Oral Tablet TAKE 2 TABLET Daily Quantity: 0 Refills: 0 Ordered: 15-Oct-2021 DO Start : 15-Oct-2021 Active take 1 tablet by [facility] twice daily busPIRone (BUSPAR) 15 [...] Quantity: 30 Refills: 3 Ordered: 23-Jan-2016 Warren Brur Start: 23-Jan-2016 End: 21-May-2016 Status: Other Generic [...] Allowed Start: 10-31-2018 take 1 capsule by [facility] every six hours as needed [...] 1 capsule by mouth twice da padmaja Wasta-3 Fatty Acids (FISH OIL) 1000 MG CAPS [...] if Blood Glucose is between 251 - 39438 unit(s) if Blood Glucose is between 301 - 36000 unit(s) if Blood Glucose is between 351 [...] if Blood glucose is between 301 - 48555 unit(s) if Blood glucose is between 351 [...] 02-Jul-2021 Generic Substitution Allowed polyethylene glycol 3350 18475 mg powder for oral solution (7 sources) Osmotic Laxative Start: 10-15-2021 MiraLax Mix-I n Fabius 17 GM Oral Packet MIX 1 PACKET [...] Allowed Start: 07-02-2021 take 1 capsule by [facility] every twelve hours Tacrolimus 1 [...] Quantity: 0 Refills: 0 Ordered: 23-Jan-2016 Warren uBrr Start: 08-Jan-2016 Status: Other Generic Substitution Allowed [...] Coma; stupor; and brain damage (1 source) Maribel coma scale finding; Translations: [Maribel coma scale score 13-15, at hospital admission] [...] Problem Lis t Migration; 2012-10-14; Moved to [facility] Feb 17 2013 9:03PM; Fever of [...] right upper extremity 06-30-2021 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 (1 source) [facility] current use of insulin 07-02-2021 Past or Other Problems Problem Classification Problem Date Documented Da te Episodic/Chronic Other gastrointestinal disorders (1 source) Dysphagia, unspecified; Translations: [DYSPHAGIA UNSPECIFIED] Onset: 08-08-2021 Episodic 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 (1 source) SWELLING UPPER/LOW EXTREMITIES 06-27-2021 Comment on above: SWELLING UPPER/LOW E XTREMITIES Results Test Name Value Interpretation Reference Range Facility [facility] 09-14-2022 Lab Reports [id number]:127 Normal [facility] VIT D 25-[place] L[facility]ORPon 2022 Vitamin D, 25-Hydroxy 29.5 ng/mL Critically low 30.0-100.0 [facility] Comment on above: Result Comment: Jennifer min D deficiency has been defined by the [place] of Medicine and an Endocrine Society practice guideline as a level of serum 25-OH vitamin D less than 20 ng/mL (1,2). The Endocrine Society went on to further define vitamin D insufficiency as a level between 21 and 29 ng/mL (2). 1. IOM ([place] of Medicine). 2010. Dietary reference intakes for calcium and D. [place]: The National Academies Press. 2. Ely MF, Brad NC, Kristy ORTEGA, et al. Evaluation, treatment, and prevention of vitamin D deficiency: an Endocrine Society clinical practice guideline. JCEM. 2010; 96(7):1911-30. Performed By: #### V ITADLC #### [facility] [address] [place] [address] Dr. Ronnie Pennington CBC AUTO DIFFon 07-24-2022 BASO # 0.0 103/ul Normal 0.0-0.1 [facility] Comment on above: Performed By: #### C BC #### [facility] [address] [address] [address] Ronnie Pennington Basophils/100 WBC (Bld) 0.6 % Normal 0.2-2.0 [facility] Comment on above: Performed By: #### C BC #### [facility] [address] [address] [address] Ronnie Pennington EO # 0.1 103/ul Normal 0.0-0.7 [facility] Comment on above: Performed By: #### C BC #### [facility] [address] [address] [address] Ronnie Pennington Eosinophils/100 WBC (Bld) 2.0 % Normal 0.9-7.0 [facility] Comment on above: Performed By: #### C BC #### [facility] [address] [place] [address] Dr. Ronnie Pennington Erythrocyte distribution width (RBC) [Ratio] 13.2 % Normal 11.0-15.0 [facility] Comment on above: Performed By: #### C BC #### [facility] [address] [place] [address] Dr. Ronnie Pennington Hematocrit (Bld) [Volume fraction] 33.3 % Critically low 42.0-54.0 [facility] Comment on above: Performed By: #### C BC #### [facility] [address] [place] [address] Dr. Ronnie Pennington Hemoglobin (Bld) [Mass/Vol] 10.0 g/dL Critically low 14.0-18.0 [facility] Comment on above: Performed By: #### C BC #### [facility] [address] [place] [address] Dr. Ronnie Pennington IG # 0.04 10e3/ul Critically high 0.00-0.03 [facility] Comment on above: Performed By: #### C BC #### [facility] [address] [place] [address] Dr. Ronnie Pennington IG % 0.6 % Critically high 0.0-0.5 [facility] Comment on above: Performed By: #### C BC #### [facility] [address] [place] [address] Dr. Ronnie Pennington LYMPH # 1.2 103/ul Normal 1.2-3.8 [facility] Comment on above: Performed By: #### C BC #### [facility] [address] [place] [address] Dr. Ronnie Pennington Lymphocytes/100 WBC (Bld) 17.9 % Critically low 20.5-60.0 [facility] Comment on above: Performed By: #### C BC #### [facility] [address] [place] [address] Dr. Ronnie Pennington MANUAL DIFF REQ NO Normal [facility] Comment on above: Performed By: #### C BC #### [facility] [address] [place] [address] Dr. Ronnie Pennington MCH (RBC) [Entitic mass] 28.2 pg Normal 25.9-34.0 [facility] Comment on above: Performed By: #### C BC #### [facility] [address] [place] [address] Dr. Ronnie Pennington MCHC (RBC) [Mass/Vol] 30.0 g/dL Normal 29.9-35.2 [facility] Comment on above: Performed By: #### C BC #### [facility] [address] [place] [address] Dr. Ronnie Pennington MCV (RBC) [Entitic vol] 94.1 fL Critically high 80.0-94 .0 [facility] Comment on above: Performed By: #### C BC #### [facility] [address] [place] [address] Dr. Ronnie Pennington MONO # 0.4 103/ul Normal 0.3-0.8 [facility] Comment on above: Performed By: #### C BC #### [facility] [address] [place] [address] Dr. Ronnie Pennington Monocytes/100 WBC (Bld) 6.5 % Normal 1.7-12.0 [facility] Comment on above: Performed By: #### C BC #### [facility] [address] [address] [address] Ronnie Pennington NEUT # 4.8 103/ul Normal 1.4-6.5 [facility] Comment on above: Performed By: #### C BC #### [facility] [address] [place] [address] Dr. Ronnie Pennington Neutrophils/100 WBC (Bld) 72.4 % Normal 43.0-75.0 [facility] Comment on above: Performed By: #### C BC #### [facility] [address] [place] [address] Dr. Ronnie Pennington Platelet mean volume (Bld) [Entitic vol] 11.7 fL Normal 9.5-13.5 [facility] Comment on above: Performed By: #### C BC #### [facility] [address] [place] [address] Dr. Ronnie Pennington PLT 137 103/ul Critically low 150-450 [facility] Comment on above: Performed By: #### C BC #### [facility] [address] [place] [address] Dr. Ronnie Pennington RBC 3.54 106/ul Critically low 4.70-6.10 [facility] Comment on above: Performed By: #### C BC #### [facility] [address] [place] [address] Dr. Ronnie Pennington WBC 6.6 103/ul Normal 4.0-11.0 [facility] Comment on above: Performed By: #### C BC #### [facility] [address] [place] [address] Dr. Ronnie Pennington GLYCOHEMOGLOBIN A1Con 2022 ADA RECOMMENDATION SEE BELOW Normal [facility] Comment on above: Result Comment: ADA RECOMMENDED LIMIT 4.0 - 6.0 ADA THERAPEUTIC TARGET < 7.0 ACTION SUGGESTED > 7.0 Performed By: #### A 1C #### [facility] [address] [place] [address] Dr. Ronnie Pennington Glucose [Mass/Vol] 171 mg/dL Normal [facility] Comment on above: Performed By: #### A 1C #### [facility] [address] [address] [address] Ronnie Pennington HbA1c (Bld) [Mass fraction] 7.6 % Critically high 4.5-6.2 [facility] Comment on above: Performed By: #### A 1C #### [facility] [address] [address] [address] Ronnie Pennington MAGNESIUMon 07-24-2022 Magnesium [Mass/Vol] 2.3 mg/dL Normal 1.8-2.4 [facility] Comment on above: Performed By: #### M Mere, TSH, CMP ####[facility] [address] [address]Dr. Ronnie Pennington PROF 14(COMP METB)on 023 Albumin [Mass/Vol] 2.8 g/dL Critically low 3.4-5.0 [facility] Comment on above: Performed By: #### Joaquin Severino TSH, CMP ####[facility] [address] [address]DrFreddy Pennington Albumin/Globulin [Mass ratio] 0.7 {ratio} Normal [facility] Comment on above: Performed By: #### Joaquin Severino TSH, CMP ####[facility] [address] [address]DrFreddy Pennington ALP [Catalytic activity/Vol] 69 U/L Normal 46-116 [facility] Comment on above: Performed By: #### M Mere TSH, CMP ####[facility] [address] [address]DrFreddy Pennington ALT [Catalytic activity/Vol] 8 U/L Critically low 16-63 [facility] Comment on above: Performed By: #### Joaquin Severino TSH, CMP ####[facility] [address] [address]DrFreddy Pennington Anion gap [Moles/Vol] 9.9 mmol/L Normal [facility] Comment on above: Performed By: #### M G TSH, CMP ####[facility] [address] [address]DrFreddy Pennington AST [Catalytic activity/Vol] 9 U/L Critically low 15-37 [facility] Comment on above: Performed By: #### M Mere TSH, CMP ####[facility] [address] [place], [place] [address]Dr. Ronnie Pennington Bilirubin [Mass/Vol] 0.2 mg/dL Normal 0.2-1.0 [facility] Comment on above: Performed By: #### Joaquin Severino TSH, CMP ####[facility] [address] [place], [place] [address]Dr. Ronnie Pennington Calcium [Mass/Vol] 8.9 mg/dL Normal 8.5-10.1 [facility] Comment on above: Performed By: #### Joaquin Severino TSH, CMP ####[facility] [address] [place], [place] [address]Dr. Ronnie Pennington Chloride [Moles/Vol] 104 mmol/L Normal 98-107 [facility] Comment on above: Performed By: #### Joaquin Severino TSH, CMP ####[facility] [address] [place], [place] [address]Dr. Ronnie Pennington CO2 [Moles/Vol] 28.4 mmol/L Normal 21.0-32.0 [facility] Comment on above: Performed By: #### Joaquin Severino TSH, CMP ####[facility] [address] [place], [place] [address]Dr. Ronnie Pennington Creatinine [Mass/Vol] 2.09 mg/dL Critically high 0.70-1.30 [facility] Comment on above: Performed By: #### Joaquin Severino, TSH, CMP ####[facility] [address] [place], [place] [address]Dr. Salomelenny Pennington EGFR-AF COLOMBIAN 37 mL/min/1.73m2 Critically low >=60 [facility] Comment on above: Performed By: #### Joaquin Severino, TSH, CMP ####[facility] [address] [place], [place] [address]Dr. Ronnie Pennington EGFR-NON AF COLOMBIAN 31 mL/min/1.73m2 Critically low >=60 [facility] Comment on above: Performed By: #### M G, TSH, CMP ####[facility] [address] [address]Dr. Ronnie Pennington Globulin (S) [Mass/Vol] 3.9 g/dL Normal [facility] Comment on above: Performed By: #### M G, TSH, CMP ####[facility] [address] [address]Dr. Ronnie Pennington Glucose [Mass/Vol] 165 mg/dL Critically high 74-106 [facility] Comment on above: Performed By: #### M G, TSH, CMP ####[facility] [address] [place], [place] [address]Dr. Ronnie Pennington Potassium [Moles/Vol] 4.3 mmol/L Normal 3.5-5.1 [facility] Comment on above: Performed By: #### M G, TSH, CMP ####[facility] [address] [place], [place] [address]Dr. Ronnie Pennington Protein [Mass/Vol] 6.7 g/dL Normal 6.4-8.2 [facility] Comment on above: Performed By: #### M G, TSH, CMP ####[facility] [address] [place], [place] [address]Dr. Ronnie Pennington Sodium [Moles/Vol] 138 mmol/L Normal 136-145 [facility] Comment on above: Performed By: #### M G, TSH, CMP ####[facility] [address] [place], [place] [address]Dr. Ronnie Pennington Urea nitrogen [Mass/Vol] 33.0 mg/dL Critically high 7.0-18.0 [facility] Comment on above: Performed By: #### M G, TSH, CMP ####[facility] [address] [place], [place] [address]Dr. Ronnei Pennington Urea nitrogen/Creatinine [Mass ratio] 15.8 mg/mg Normal [facility] Comment on above: Performed By: #### M G, TSH, CMP ####[facility] [address] [place], [place] [address]Dr. Ronnie Pennington TSHon 07-24-2022 TSH 2.763 uIU/mL Normal 0.358-3.74 0 [facility] Comment on above: Performed By: #### M G, TSH, CMP ####[facility] [address] [address]Dr. Ronnie Pennington FK506 (TACROLIMUS) WHOLE BLO ODon 07-15-2022 Tacrolimus (FK506), Blood 9.4 ng/mL Normal 2.0-20.0 [facility] Comment on above: Result Comment: Trou gh (immediately following transplant) 15.0 . Trough (steady state, 2 weeks or more after transplant): 3.0 - 8.0 . Performed by LC-MS/MS technology. Performed By: #### F [id number] #### [facility] [address] [place] [address] Dr. Ronnie Pennington CBC AUTO DIFFon 07-13-2022 BASO # 0.0 103/ul Normal 0.0-0.1 [facility] Comment on above: Performed By: #### C BC #### [facility] [address] [place] [address] Dr. Ronnie Pennington Basophils/100 WBC (Bld) 0.3 % Normal 0.2-2.0 [facility] Comment on above: Performed By: #### C BC #### [facility] [address] [place] [address] Dr. Ronnie Pennington EO # 0.2 103/ul Normal 0.0-0.7 [facility] Comment on above: Performed By: #### C BC #### [facility] [address] [place] [address] Dr. Ronnie Pennington Eosinophils/100 WBC (Bld) 2.5 % Normal 0.9-7.0 [facility] Comment on above: Performed By: #### C BC #### [facility] [address] [place] [address] Dr. Ronnie Pennington Erythrocyte distribution width (RBC) [Ratio] 13.1 % Normal 11.0-15.0 [facility] Comment on above: Performed By: #### C BC #### [facility] [address] [place] [address] Dr. Ronnie Pennington Hematocrit (Bld) [Volume fraction] 33.4 % Critically low 42.0-54.0 [facility] Comment on above: Performed By: #### C BC #### [facility] [address] [place] [address] Dr. Ronnie Pennington Hemoglobin (Bld) [Mass/Vol] 10.4 g/dL Critically low 14.0-18.0 [facility] Comment on above: Performed By: #### C BC #### [facility] [address] [place] [address] Dr. Ronnie Pennington IG # 0.04 10e3/ul Critically high 0.00-0.03 [facility] Comment on above: Performed By: #### C BC #### [facility] [address] [place] [address] Dr. Ronnie Pennington IG % 0.6 % Critically high 0.0-0.5 [facility] Comment on above: Performed By: #### C BC #### [facility] [address] [place] [address] Dr. Ronnie Pennington LYMPH # 1.2 103/ul Normal 1.2-3.8 [facility] Comment on above: Performed By: #### C BC #### [facility] [address] [place] [address] Dr. Ronnie Pennington Lymphocytes/100 WBC (Bld) 16.8 % Critically low 20.5-60.0 [facility] Comment on above: Performed By: #### C BC #### [facility] [address] [place] [address] Dr. Ronnie Pennington MANUAL DIFF REQ NO Normal [facility] Comment on above: Performed By: #### C BC #### [facility] [address] [place] [address] Dr. Ronnie Pennington MCH (RBC) [Entitic mass] 28.5 pg Normal 25.9-34.0 [facility] Comment on above: Performed By: #### C BC #### [facility] [address] [place] [address] Dr. Ronnie Pennington MCHC (RBC) [Mass/Vol] 31.1 g/dL Normal 29.9-35.2 [facility] Comment on above: Performed By: #### C BC #### [facility] [address] [place] [address] Dr. Ronnie Pennington MCV (RBC) [Entitic vol] 91.5 fL Normal 80.0-94.0 [facility] Comment on above: Performed By: #### C BC #### [facility] [address] [place] [address] Dr. Ronnie Pennington MONO # 0.5 103/ul Normal 0.3-0.8 [facility] Comment on above: Performed By: #### C BC #### [facility] [address] [place] [address] Dr. Ronnie Pennington Monocytes/100 WBC (Bld) 7.5 % Normal 1.7-12.0 [facility] Comment on above: Performed By: #### C BC #### [facility] [address] [place] [address] Dr. Ronnie Pennington NEUT # 5.0 103/ul Normal 1.4-6.5 [facility] Comment on above: Performed By: #### C BC #### [facility] [address] [place] [address] Dr. Ronnie Pennington Neutrophils/100 WBC (Bld) 72.3 % Normal 43.0-75.0 [facility] Comment on above: Performed By: #### C BC #### [facility] [address] [place] [address] Dr. Ronnie Pennington Platelet mean volume (Bld) [Entitic vol] 11.8 fL Normal 9.5-13.5 [facility] Comment on above: Performed By: #### C BC #### [facility] [address] [place] [address] Dr. Ronnie Pennington PLT 126 103/ul Critically low 150-450 [facility] Comment on above: Performed By: #### C BC #### [facility] [address] [place] [address] Dr. Ronnie Pennington RBC 3.65 106/ul Critically low 4.70-6.10 [facility] Comment on above: Performed By: #### C BC #### [facility] [address] [address] [address] Ronnie Pennington WBC 6.9 103/ul Normal 4.0-11.0 [facility] Comment on above: Performed By: #### C BC #### [facility] [address] [address] [address] Ronnie Pennington MAGNESIUMon 07-13-2022 Magnesium [Mass/Vol] 2.1 mg/dL Normal 1.8-2.4 [facility] Comment on above: Performed By: #### C MP, MG #### [facility] [address] [place] [address] Dr. Ronnie Pennington Office Visit (Cardiology)on 07-13-2022 Follow-up visit Patient Instructions -Please bring a list of your medications to every appointment. -We will schedule you a follow up appointment in # months. We will call you with this date. -If you have any questions, please do not hesitate to contact our office at [phone]. For after hours issues, please call [phone]. Chief Complaint OLIVERIO ESCOBEDO is being seen [...] 6 months. History of Present Illness Mr. 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 Interval Hx: He has had no hospitalization in the interim since last visit in September 2021. He continues to live in custodial. He has started Zoloft for depression. He [...] TabletTake 1 tablet twice daily MiraLax Mix-In Fabius 17 GM Oral PacketMIX 1 PACKET in [...] TABLET Bedtime (more content not included)... Normal [facility] PROF 14(COMP METB)on 023 Albumin [Mass/Vol] 2.9 g/dL Critically low 3.4-5.0 [facility] Comment on above: Performed By: #### C MP, MG #### [facility] [address] [place] [address] Dr. Ronnie Pennington Albumin/Globulin [Mass ratio] 0.7 {ratio} Normal [facility] Comment on above: Performed By: #### C MP, MG #### [facility] [address] [address] [address] Ronnie Pennington ALP [Catalytic activity/Vol] 71 U/L Normal 46-116 [facility] Comment on above: Performed By: #### C MP, MG #### [facility] [address] [place] [address] Dr. Ronnie Pennington ALT [Catalytic activity/Vol] 12 U/L Critically low 16-63 [facility] Comment on above: Performed By: #### C MP, MG #### [facility] [address] [address] [address] Ronnie Pennington Anion gap [Moles/Vol] 15.1 mmol/L Normal [facility] Comment on above: Performed By: #### C MP, MG #### [facility] [address] [place] [address] Dr. Ronnie Pennington AST [Catalytic activity/Vol] 11 U/L Critically low 15-37 [facility] Comment on above: Performed By: #### C MP, MG #### [facility] [address] [place] [address] Dr. Ronnie Pennington Bilirubin [Mass/Vol] 0.2 mg/dL Normal 0.2-1.0 [facility] Comment on above: Performed By: #### C MP, MG #### [facility] [address] [place] [address] Dr. Ronnie Pennington Calcium [Mass/Vol] 9.2 mg/dL Normal 8.5-10.1 [facility] Comment on above: Performed By: #### C MP, MG #### [facility] [address] [place] [address] Dr. Ronnie Pennington Chloride [Moles/Vol] 105 mmol/L Normal 98-107 [facility] Comment on above: Performed By: #### C MP, MG #### [facility] [address] [place] [address] Dr. Ronnie Pennington CO2 [Moles/Vol] 28.1 mmol/L Normal 21.0-32.0 [facility] Comment on above: Performed By: #### C MP, MG #### [facility] [address] [place] [address] Dr. Ronnie Pennington Creatinine [Mass/Vol] 2.14 mg/dL Critically high 0.70-1.30 [facility] Comment on above: Performed By: #### C MP, MG #### [facility] [address] [place] [address] Dr. Ronnie Pennington EGFR-AF COLOMBIAN 36 mL/min/1.73m2 Critically low >=60 [facility] Comment on above: Performed By: #### C MP, MG #### [facility] [address] [place] [address] Dr. Ronnie Pennington EGFR-NON AF COLOMBIAN 30 mL/min/1.73m2 Critically low >=60 [facility] Comment on above: Performed By: #### C MP, MG #### [facility] [address] [place] [address] Dr. Ronnie Pennington Globulin (S) [Mass/Vol] 4.0 g/dL Normal [facility] Comment on above: Performed By: #### C MP, MG #### [facility] [address] [place] [address] Dr. Ronnie Pennington Glucose [Mass/Vol] 150 mg/dL Critically high 74-106 [facility] Comment on above: Performed By: #### C MP, MG #### [facility] [address] [place] [address] Dr. Ronnie Pennington Potassium [Moles/Vol] 4.2 mmol/L Normal 3.5-5.1 [facility] Comment on above: Performed By: #### C MP, MG #### [facility] [address] [address] [address] Ronnie Pennington Protein [Mass/Vol] 6.9 g/dL Normal 6.4-8.2 [facility] Comment on above: Performed By: #### C MP, MG #### [facility] [address] [address] [address] Ronnie Pennington Sodium [Moles/Vol] 144 mmol/L Normal 136-145 [facility] Comment on above: Performed By: #### C MP, MG #### [facility] [address] [address] [address] Ronnie Pennington Urea nitrogen [Mass/Vol] 32.0 mg/dL Critically high 7.0-18.0 [facility] Comment on above: Performed By: #### C MP, MG #### [facility] [address] [address] [address] Ronnie Pennington Urea nitrogen/Creatinine [Mass ratio] 15.0 mg/mg Normal [facility] Comment on above: Performed By: #### C MP, MG #### [facility] [address] [address] [address] Ronnie Pennington Transplant SW Assessment Upd [...] Jul 15 2022 12:57PM EST (Author) Normal [employer] Consultation Noteon 06-10-19 Consultation Note [id number] Normal [facility] TSHon 06-05-2022 TSH 3.293 uIU/mL Normal 0.358-3.74 0 [facility] Comment on above: Performed By: #### T SH #### [facility] [address] [address] [address] Ronnie Pennington Cult,Woundon 04-19-2022 Cult,Wound Specimen [...] <=1 SUSCEPTIBLE Trimethoprim/Sulfa <=10 SUSCEPTIBLE Susceptible [facility] Comment on above: Performed By: #### W DC #### [address] [place] [address] [employer] Numerical Control Operator: David Gonzalez MD PROF CHEM 8 ([facility])on Anion gap [Moles/Vol] 14.9 mmol/L Normal [facility] Comment on above: Performed By: #### B MP #### [facility] [address] [place] [address] Dr. Ronnie Pennington Calcium [Mass/Vol] 8.8 mg/dL Normal 8.5-10.1 [facility] Comment on above: Performed By: #### B MP #### [facility] [address] [place] [address] Dr. Ronnie Pennington Chloride [Moles/Vol] 104 mmol/L Normal 98-107 [facility] Comment on above: Performed By: #### B MP #### [facility] [address] [place] [address] Dr. Ronnie Pennington CO2 [Moles/Vol] 26.6 mmol/L Normal 21.0-32.0 [facility] Comment on above: Performed By: #### B MP #### [facility] [address] [address] [address] Ronnie Pennington Creatinine [Mass/Vol] 2.03 mg/dL Critically high 0.70-1.30 [facility] Comment on above: Performed By: #### B MP #### [facility] [address] [address] [address] Ronnie Pennington EGFR-AF COLOMBIAN 39 mL/min/1.73m2 Critically low >=60 [facility] Comment on above: Performed By: #### B MP #### [facility] [address] [address] [address] Ronnie Pennington EGFR-NON AF COLOMBIAN 32 mL/min/1.73m2 Critically low >=60 [facility] Comment on above: Performed By: #### B MP #### [facility] [address] [address] [address] Ronnie Pennington Glucose [Mass/Vol] 209 mg/dL Critically high 74-106 [facility] Comment on above: Performed By: #### B MP #### [facility] [address] [address] [address] Ronnie Pennington Potassium [Moles/Vol] 4.5 mmol/L Normal 3.5-5.1 [facility] Comment on above: Performed By: #### B MP #### [facility] [address] [address] [address] Ronnie Pennington Sodium [Moles/Vol] 141 mmol/L Normal 136-145 [facility] Comment on above: Performed By: #### B MP #### [facility] [address] [address] [address] Ronnie Pennington Urea nitrogen [Mass/Vol] 26.0 mg/dL Critically high 7.0-18.0 [facility] Comment on above: Performed By: #### B MP #### [facility] [address] [address] [address] Ronnie Pennington Urea nitrogen/Creatinine [Mass ratio] 12.8 mg/mg Normal [facility] Comment on above: Performed By: #### B #### [facility] [address] [place], [place] [address] Dr. Ronnie Pennington Office Visit (Cardiology)on 10-15-2021 [...] last office visit; documented BPs at the [facility] 120-130s/70-80s. Benadryl 25 mg q6h PRN [...] Oral TabletTak (more content not included)... Normal [employer] XR MODIFIED BARIUM SWALLOWon 08-05-2021 XR MODIFIED [...] JARON NESS Date: 2021-08-05 15:10 Normal [facility] CBC AND DIFFERENTIALon 07-13 % AUTOMATED IMMATURE GRAN 0.5 % Normal 0.0 - 0.9 [facility] Comment on above: Result Comment: Christal ture Granulocyte Count (IG) includes promyelocytes, myelocytes and metamyelocytes but does not include bands. Percent differential counts (%) should be interpreted in the context of the absolute cell counts (cells/L). Performed By: #### C BCDF #### [address] [address] Basophils (Bld) [#/Vol] 0.02 10*3/uL Normal 0.00 - 0.10 [facility] Comment on above: Performed By: #### C BCDF #### [address] [address] Basophils/100 WBC (Bld) 0.3 % Normal 0.0 - 2.0 [facility] Comment on above: Performed By: #### C BCDF #### [address] [address] Eosinophils (Bld) [#/Vol] 0.07 10*3/uL Normal 0.00 - 0.40 [facility] Comment on above: Performed By: #### C BCDF #### [address] [address] Eosinophils/100 WBC (Bld) 0.9 % Normal 0.0 - 6.0 [facility] Comment on above: Performed By: #### C BCDF #### [address] [address] Erythrocyte distribution width (RBC) [Ratio] 14.4 % Normal 11.5 - 14.5 [facility] Comment on above: Performed By: #### C BCDF #### [address] [place] [address] Hematocrit (Bld) [Volume fraction] 35.5 % Low 41.0 - 52.0 [facility] Comment on above: Performed By: #### C BCDF #### [address] [place] [address] Hemoglobin (Bld) [Mass/Vol] 10.8 g/dL Low 13.5 - 17.5 [facility] Comment on above: Performed By: #### C BCDF #### [address] [place] [address] Lymphocytes (Bld) [#/Vol] 0.42 10*3/uL Low 0.80 - 3.00 [facility] [place] [facility] Comment on above: Performed By: #### C BCDF #### [address] [place] [address] Lymphocytes/100 WBC (Bld) 5.6 % Normal 13.0 - 44.0 [facility] Comment on above: Performed By: #### C BCDF #### [address] [place] [address] MCHC (RBC) [Mass/Vol] 30.4 g/dL Low 32.0 - 36.0 [facility] Comment on above: Performed By: #### C BCDF #### [address] [address] MCV (RBC) [Entitic vol] 89 fL Normal 80 - 100 [facility] Comment on above: Performed By: #### C BCDF #### [address] [address] Monocytes (Bld) [#/Vol] 0.07 10*3/uL Normal 0.05 - 0.80 [facility] Comment on above: Performed By: #### C BCDF #### [address] [address] Monocytes/100 WBC (Bld) 0.9 % Normal 2.0 - 10.0 [facility] Comment on above: Performed By: #### C BCDF #### [address] [address] Neutrophils (Bld) [#/Vol] 6.82 10*3/uL High 1.60 - 5.50 [facility] Comment on above: Performed By: #### C BCDF #### [address] [address] Neutrophils/100 WBC (Bld) 91.8 % Normal 40.0 - 80.0 [facility] Comment on above: Performed By: #### C BCDF #### [address] [address] NUCLEATED RBC 0.0 /100 WBC Normal 0.0 - 0.0 [facility] Comment on above: Performed By: #### C BCDF #### [address] [address] Platelets (Bld) [#/Vol] 161 10*3/uL Normal 150 - 450 [facility] [place] [facility] Comment on above: Performed By: #### C BCDF #### [address] [address] RBC 3.98 x10E12/L Low 4.50 - 5.90 [facility] [place] Comment on above: Performed By: #### C BCDF #### [address] [address] WBC (Bld) [#/Vol] 7.4 10*3/uL Normal 4.4 - 11.3 [facility] Comment on above: Performed By: #### C BCDF #### [address] [address] Complete Blood Count + Diffe rentialon 07-13-2021 Basophils/100 WBC (Bld) 0.3 % 0.0 - 2.0 [facility] [employer] [address] [place] Work Phone: Erythrocyte distribution width (RBC) [Ratio] 14.4 % See Below [facility] [employer] [address] [place] Work Phone: Comment on above: Reference Range: 11. 5 - 14.5 Hematocrit (Bld) [Volume fraction] 35.5 % below low threshold See Below [facility] [address] [place] Work Phone: Comment on [...] 161 10*3/uL 150 - 450 [facility] [address] [place] Work Phone: RBC (Bld) [#/Vol] 3.98 {x10E12/L} below low threshold See Below [facility] [address] [place] Work Phone: Comment on above: Reference Range: 4.5 0 - 5.90 WBC (Bld) [#/Vol] 7.4 10*3/uL 4.4 - 11.3 [facility] [employer] [address] [place] Work Phone: Complete Blood Count + Differential 0.02 {x10E9/L} See Below [facility] [address] [place] Work Phone: Comment on above: Reference Range: 0.0 0 - 0.10 Complete Blood Count + Differential 0.07 {x10E9/L} See Below [facility] [address] [place] Work Phone: Comment on above: Reference Range: 0.0 0 - 0.40 Reference Range: 0.0 5 - 0.80 Complete Blood Count + Differential 0.42 {x10E9/L} below low threshold See Below [facility] [address] [place] Work Phone: Comment on above: Reference Range: 0.8 0 - 3.00 Complete Blood Count + Differential 6.82 {x10E9/L} above high threshold See Below [facility] [place] [employer] [address] [place] Work Phone: Comment on above: Reference Range: 1.6 0 - 5.50 Complete Blood Count + Differential 0.9 % 0.0 - 6.0 [facility] [employer] [address] [place] Work Phone: Complete Blood Count + Differential 0.5 % 0.0 - 0.9 [facility] [address] [place] Work Phone: Comment on above: Immature Granulocyte Count (IG) includes promyelocytes, myelocytes and metamyelocytes but does not include bands. Percent differential counts (%) should be interpreted in the context of the absolute cell counts (cells/L). Complete Blood Count + Differential 0.0 {/100_WBC} 0.0 - 0.0 [facility] [address] [place] Work Phone: Coronavirus 2019 RNA by PCR, Symptomaticon 07-03-2021 Date and time of symptom onset [id number] [facility] [address] [place] Work Phone: Coronavirus 2019 RNA by PCR, Symptomatic Not detected Normal See Below [facility] [address] [place] Work Phone: Comment on above: SOURCE: Nasal, Nasop haryngealReference Range: Not Detected.This test has received FDA Emergency Use Authorization (EUA) and has been verified by [facility] ([facility]). This test is only authorized for the duration of time that circumstances exist to justify the authorization of the emergency use of in vitro diagnostic tests for the detection of SARS-CoV-2 virus and/or diagnosis of COVID-19 infection under section 564(b)(1) of the Act, 21 U.S.C. 360bbb-3(b)(1), unless the authorization is terminated or revoked sooner. [facility] is certified under CLIA-88 as qualified to perform high complexity testing. Testing is performed in the [facility] located at [address] [place] [address].SARS-CoV-2/Flu/RSV Multiplex Test: Fact sheet for providers: https://www.fda.gov/media/589341/downloadFact sheet for patients: https://www.fda.gov/media/359634/download Laboratory - Chemistry and C hemistry - challengeon 07-03-2021 Glucose [Mass/Vol] 330 mg/dL above high threshold 74 - 99 [facility] [address] [place] Work Phone: Glucose [Mass/Vol] [...] mmol/L 21 - 32 [facility] [address] [place] Work Phone: Creatinine [Mass/Vol] 1.80 mg/dL above high threshold See Below [facility] [address] [place] Work Phone: Comment on above: Reference Range: 0.5 0 - 1.30 Glucose [Mass/Vol] 246 mg/dL above high threshold 74 - 99 [facility] [address] [place] Work Phone: Potassium [Moles/Vol] 3.9 mmol/L 3.5 - 5.3 [facility] [address] [place] Work Phone: [phone] Sodium [Moles/Vol] 138 mmol/L 136 - 145 [facility] [address] [place] Work Phone: Urea nitrogen [...] below low threshold See Below [facility] [address] [place] Work Phone: Comment on above: Reference Range: 41. 0 - 52.0 Hemoglobin (Bld) [Mass/Vol] 10.8 g/dL below low threshold See Below [facility] [address] [place] Work Phone: Comment on above: Reference Range: 13. 5 - 17.5 MCHC (RBC) [Mass/Vol] 30.8 g/dL below low threshold See Below [facility] [address] [place] Work Phone: Comment on above: Reference Range: 32. 0 - 36.0 MCV (RBC) [Entitic vol] 89 fL 80 - 100 [facility] [address] [place] Work Phone: Platelets (Bld) [#/Vol] 171 10*3/uL 150 - 450 [facility] [address] [place] Work Phone: RBC (Bld) [#/Vol] 3.94 {x10E12/L} below low threshold See Below [facility] [address] [place] Work Phone: Comment on above: Reference Range: 4.5 0 - 5.90 WBC (Bld) [#/Vol] 6.0 10*3/uL 4.4 - 11.3 [facility] [address] [place] Work Phone: No Panel Informationon 07-03 38 {mL/min/1.73m2} Abnormal >90 [facility] [address] [place] Work Phone: Comment on above: CALCULATIONS OF ERNST MATED GFR ARE PERFORMED USING THE 2020 CKD-EPI STUDY REFIT EQUATION WITHOUT THE RACE VARIABLE FOR THE IDMS-TRACEABLE CREATININE METHODS.https://jasn.asnjournals.org/content/early// ASN.6732579409 0.0 {/100_WBC} 0.0-0.0 [facility] [address] [place] Work Phone: Tacrolimuson 07-03-2021 Tacrolimus (Bld) [Mass/Vol] 5.5 ng/mL 2.0 - 15.0 [facility] [address] [place] Work Phone: Comment on above: NOTE: Result was obt ained using a chemiluminescent microparticle immunoassay (CMIA) on the [employer] i system.Optimal therapeutic ranges for immuno-suppressant drugs [...] high threshold 74 - 99 [facility] [address] [place] Work Phone: [phone] Glucose [Mass/Vol] 286 mg/dL above high threshold 74 - 99 [facility] [address] [place] Work Phone: [phone] Glucose [Mass/Vol] 269 mg/dL above high threshold 74 - 99 [facility] [address] [place] Work Phone: [phone] Anion gap [Moles/Vol] 15 mmol/L 10 - 20 [facility] [address] [place] Work Phone: [phone] Calcium [Mass/Vol] 9.1 mg/dL 8.6 - 10.6 [facility] [address] [place] Work Phone: [phone] Chloride [Moles/Vol] 102 mmol/L 98 - 107 [facility] [address] [place] Work Phone: [phone] CO2 [Moles/Vol] 27 mmol/L 21 - 32 [facility] [address] [place] Work Phone: [phone] Creatinine [Mass/Vol] 1.97 mg/dL above high threshold See Below [facility] [address] [place] Work Phone: [phone] Comment on above: Reference Range: 0.5 0 - 1.30 Glucose [Mass/Vol] 197 mg/dL above high threshold 74 - 99 [facility] [address] [place] Work Phone: Potassium [Moles/Vol] 4.1 mmol/L 3.5 - 5.3 [facility] [address] [place] Work Phone: Sodium [Moles/Vol] 140 mmol/L 136 - 145 [facility] [address] [place] Work Phone: Urea nitrogen [Mass/Vol] 41 mg/dL above high threshold 6 - 23 [facility] [address] [place] Work Phone: Glucose [Mass/Vol] 201 mg/dL above high threshold 74 - 99 [facility] [address] [place] Work Phone: Laboratory - Hematology and Cell countson 07-02-2021 Erythrocyte distribution width (RBC) [Ratio] 14.1 % See Below [facility] [address] [place] Work Phone: Comment on above: Reference Range: 11. 5 - 14.5 Hematocrit (Bld) [Volume fraction] 33.6 % below low threshold See Below [facility] [address] [place] Work Phone: Comment on [...] 160 10*3/uL 150 - 450 [facility] [address] [place] Work Phone: RBC (Bld) [...] RACE VARIABLE FOR THE IDMS-TRACEABLE CREATININE METHODS.https://jasn.asnjournals.org/content/// ASN.1281485337 0.0 {/100_WBC} 0.0-0.0 [facility] [address] [place] Work Phone: Tacrolimuson 07-02-2021 Tacrolimus (Bld) [Mass/Vol] 7.6 ng/mL 2.0 - 15.0 [facility] [address] [place] Work Phone: Comment on above: NOTE: Result was obt ained using a chemiluminescent microparticle immunoassay (CMIA) on the [employer] i system.Optimal therapeutic ranges for immuno-suppressant drugs depend upon an individualpatient's current clinical state, type oforgan transplant, time post-transplant,co-administration of other immunosuppressants,and other clinical factors. The results ofthis test should be correlated with additionalclinical and laboratory data before changesin treatment regimens are made. Hemoglobin A1Con 07-01-2021 Glucose [Mass/Vol] 194 mg/dL [facility] [address] [place] Work Phone: HbA1c (Bld) [...] 13-18 <7.5 7-12 <8.0 0- 6 7.5-8.5 [place] [employer]. Diabetes Care 33(S1), Mar 2009. Laboratory - Chemistry and C hemistry - challengeon 07-01-2021 Glucose [Mass/Vol] 188 mg/dL above high threshold 74 - 99 [facility] [address] [place] Work Phone: Glucose [Mass/Vol] [...] mmol/L 21 - 32 [facility] [address] [place] Work Phone: Creatinine [Mass/Vol] 1.99 mg/dL above high threshold See Below [facility] [address] [place] Work Phone: Comment on above: Reference Range: 0.5 0 - 1.30 Glucose [Mass/Vol] 227 mg/dL above high threshold 74 - 99 [facility] [address] [place] Work Phone: Glucose [Mass/Vol] 243 mg/dL above high threshold 74 - 99 [facility] [address] [place] Work Phone: Potassium [Moles/Vol] 4.0 mmol/L 3.5 - 5.3 [facility] [address] [place] Work Phone: Sodium [Moles/Vol] 141 mmol/L 136 - 145 [facility] [address] [place] Work Phone: Urea nitrogen [Mass/Vol] 38 mg/dL above high threshold 6 - 23 [facility] [address] [place] Work Phone: Laboratory - [...] below low threshold See Below [facility] [address] [place] Work Phone: Comment on above: Reference Range: 32. 0 - 36.0 MCV (RBC) [Entitic vol] 90 fL 80 - 100 [facility] [address] [place] Work Phone: Platelets (Bld) [#/Vol] 157 10*3/uL 150 - 450 [facility] [address] [place] Work Phone: RBC (Bld) [#/Vol] 3.83 {x10E12/L} below low threshold See Below [facility] [address] [place] Work Phone: Comment on above: Reference Range: 4.5 0 - 5.90 WBC (Bld) [#/Vol] 6.8 10*3/uL 4.4 - 11.3 [facility] [address] [place] Work Phone: No Panel Informationon 07-01 34 {mL/min/1.73m2} Abnormal >90 [facility] [address] [place] Work Phone: Comment on above: CALCULATIONS OF ERNST MATED GFR ARE PERFORMED USING THE 2020 CKD-EPI STUDY REFIT EQUATION WITHOUT THE RACE VARIABLE FOR THE IDMS-TRACEABLE CREATININE METHODS.https://jasn.asnjournals.org/content// ASN.0788883728 0.0 {/100_WBC} 0.0-0.0 [facility] [address] [place] Work Phone: Tacrolimuson 07-01-2021 Tacrolimus (Bld) [Mass/Vol] 9.3 ng/mL 2.0 - 15.0 [facility] [address] [place] Work Phone: Comment on above: NOTE: Result was obt ained using a chemiluminescent microparticle immunoassay (CMIA) on the [employer] i system.Optimal therapeutic ranges for immuno-suppressant drugs [...] high threshold 74 - 99 [facility] [address] [place] Work Phone: [phone] Glucose [Mass/Vol] 236 mg/dL above high threshold 74 - 99 [facility] [address] [place] Work Phone: [phone] Anion gap [Moles/Vol] 17 mmol/L 10 - 20 [facility] [address] [place] Work Phone: [phone] Calcium [Mass/Vol] 8.6 mg/dL 8.6 - 10.6 [facility] [address] [place] Work Phone: [phone] Chloride [Moles/Vol] 100 mmol/L 98 - 107 [facility] [address] [place] Work Phone: [phone] CO2 [Moles/Vol] 28 mmol/L 21 - 32 [facility] [address] [place] Work Phone: [phone] Creatinine [Mass/Vol] 2.26 mg/dL above high threshold See Below [facility] [address] [place] Work Phone: [phone] Comment on above: Reference Range: 0.5 0 - 1.30 Glucose [Mass/Vol] 205 mg/dL above high threshold 74 - 99 [facility] [address] [place] Work Phone: [phone] Potassium [Moles/Vol] 3.8 mmol/L 3.5 - 5.3 [facility] [address] [place] Work Phone: Sodium [Moles/Vol] 141 mmol/L 136 - 145 [facility] [address] [place] Work Phone: Urea nitrogen [Mass/Vol] 39 mg/dL above high threshold 6 - 23 [facility] [address] [place] Work Phone: Laboratory - Hematology and Cell countson 06-30-2021 Erythrocyte distribution width (RBC) [Ratio] 14.3 % See Below [facility] [address] [place] Work Phone: Comment on above: Reference Range: 11. 5 - 14.5 Hematocrit (Bld) [Volume fraction] 33.5 % below low threshold See Below [facility] [address] [place] Work Phone: Comment on above: Reference Range: 41. 0 - 52.0 Hemoglobin (Bld) [Mass/Vol] 10.5 g/dL below low threshold See Below [facility] [address] [place] Work Phone: Comment on above: Reference Range: 13. 5 - 17.5 MCHC (RBC) [Mass/Vol] 31.3 g/dL below low threshold See Below [facility] [address] [place] Work Phone: Comment on above: Reference Range: 32. 0 - 36.0 MCV (RBC) [Entitic vol] 91 fL 80 - 100 [facility] [address] [place] Work Phone: Platelets (Bld) [#/Vol] 141 10*3/uL below lo w threshold 150 - 450 [facility] [address] [place] Work Phone: RBC (Bld) [#/Vol] 3.70 {x10E12/L} below low threshold See Below [facility] [address] [place] Work Phone: Comment on above: Reference Range: 4.5 0 - 5.90 WBC (Bld) [#/Vol] 8.2 10*3/uL 4.4 - 11.3 [facility] [address] [place] Work Phone: No Panel Informationon 06-30 29 {mL/min/1.73m2} Abnormal >90 [facility] [address] [place] Work Phone: Comment on above: CALCULATIONS OF ERNST MATED GFR ARE PERFORMED USING THE 2020 CKD-EPI STUDY REFIT EQUATION WITHOUT THE RACE VARIABLE FOR THE IDMS-TRACEABLE CREATININE METHODS.https://jasn.asnjournals.org/content/early/ ASN.5986825919 0.0 {/100_WBC} 0.0-0.0 [facility] [address] [place] Work Phone: Tacrolimuson 06-30-2021 Tacrolimus (Bld) [Mass/Vol] 7.7 ng/mL 2.0 - 15.0 [facility] [address] [place] Work Phone: Comment on above: NOTE: Result was obt ained using a chemiluminescent microparticle immunoassay (CMIA) on the [employer] i system.Optimal therapeutic ranges for immuno-suppressant drugs [...] high threshold 74 - 99 [facility] [address] [place] Work Phone: [phone] Glucose [Mass/Vol] 283 mg/dL above high threshold 74 - 99 [facility] [address] [place] Work Phone: [phone] Anion gap [Moles/Vol] 16 mmol/L 10 - 20 [facility] [address] [place] Work Phone: [phone] Calcium [Mass/Vol] 8.7 mg/dL 8.6 - 10.6 [facility] [address] [place] Work Phone: [phone] Chloride [Moles/Vol] 104 mmol/L 98 - 107 [facility] [address] [place] Work Phone: [phone] CO2 [Moles/Vol] 28 mmol/L 21 - 32 [facility] [address] [place] Work Phone: [phone] Creatinine [Mass/Vol] 1.97 mg/dL above high threshold See Below [facility] [address] [place] Work Phone: [phone] Comment on above: Reference Range: 0.5 0 - 1.30 Glucose [Mass/Vol] 185 mg/dL above high threshold 74 - 99 [facility] [address] [place] Work Phone: [phone] Potassium [Moles/Vol] 3.9 mmol/L 3.5 - 5.3 [facility] [address] [place] Work Phone: [phone] Sodium [Moles/Vol] 144 mmol/L 136 - 145 [facility] [address] [place] Work Phone: [phone] Urea nitrogen [Mass/Vol] 35 mg/dL above high threshold 6 - 23 [facility] [address] [place] Work Phone: [phone] Glucose [Mass/Vol] 186 mg/dL above high threshold 74 - 99 [facility] [address] [place] Work Phone: Laboratory - Hematology and Cell countson 06-29-2021 Erythrocyte distribution width (RBC) [Ratio] 14.3 % See Below [facility] [address] [place] Work Phone: Comment on above: Reference Range: 11. 5 - 14.5 Hematocrit (Bld) [Volume fraction] 35.8 % below low threshold See Below [facility] [place] [facility] [address] [place] Work Phone: Comment on above: Reference Range: 41. 0 - 52.0 Hemoglobin (Bld) [Mass/Vol] 11.0 g/dL below low threshold See Below [facility] [employer] [facility] [address] [place] Work Phone: Comment on above: Reference Range: 13. 5 - 17.5 MCHC (RBC) [Mass/Vol] 30.7 g/dL below low threshold See Below [facility] [employer] [facility] [address] [place] Work Phone: Comment on above: Reference Range: 32. 0 - 36.0 MCV (RBC) [Entitic vol] 90 fL 80 - 100 [facility] [address] [place] Work Phone: Platelets (Bld) [#/Vol] 142 10*3/uL below lo w threshold 150 - 450 [facility] [address] [place] Work Phone: RBC (Bld) [#/Vol] 3.96 {x10E12/L} below low threshold See Below [facility] [address] [place] Work Phone: Comment on above: Reference Range: 4.5 0 - 5.90 WBC (Bld) [#/Vol] 7.0 10*3/uL 4.4 - 11.3 [facility] [employer] [facility] [address] [place] Work Phone: Magnesium, Serumon Magnesium [Mass/Vol] 1.80 mg/dL See Below [facility] [address] [place] Work Phone: Comment on above: Reference Range: 1.6 0 - 2.40 No Panel Informationon 06-29 34 {mL/min/1.73m2} Abnormal >90 [facility] [address] [place] Work Phone: Comment on above: CALCULATIONS OF ERNST MATED GFR ARE PERFORMED USING THE 2020 CKD-EPI STUDY REFIT EQUATION WITHOUT THE RACE VARIABLE FOR THE IDMS-TRACEABLE CREATININE METHODS.https://jasn.asnjournals.org/content/early// ASN.3383167504 0.0 {/100_WBC} 0.0-0.0 [facility] [address] [place] Work Phone: Tacrolimuson 06-29-2021 Tacrolimus (Bld) [Mass/Vol] 8.4 ng/mL 2.0 - 15.0 [facility] [address] [place] Work Phone: Comment on above: NOTE: Result was obt ained using a chemiluminescent microparticle immunoassay (CMIA) on the [employer] i system.Optimal therapeutic ranges for immuno-suppressant drugs [...] high threshold 74 - 99 [facility] [address] [place] Work Phone: Glucose [Mass/Vol] 215 mg/dL above high threshold 74 - 99 [facility] [address] [place] Work Phone: Anion gap [Moles/Vol] 14 mmol/L 10 - 20 [facility] [address] [place] Work Phone: [phone] Calcium [Mass/Vol] 8.5 mg/dL below low threshold 8.6 - 10.6 [facility] [address] [place] Work Phone: [phone] Chloride [Moles/Vol] 105 mmol/L 98 - 107 [facility] [address] [place] Work Phone: [phone] CO2 [Moles/Vol] 29 mmol/L 21 - 32 [facility] [address] [place] Work Phone: [phone] Creatinine [Mass/Vol] 1.96 mg/dL above high threshold See Below [facility] [address] [place] Work Phone: [phone] Comment on above: Reference Range: 0.5 0 - 1.30 Glucose [Mass/Vol] 159 mg/dL above high threshold 74 - 99 [facility] [address] [place] Work Phone: [phone] Potassium [Moles/Vol] 3.8 mmol/L 3.5 - 5.3 [facility] [address] [place] Work Phone: [phone] Sodium [Moles/Vol] 144 mmol/L 136 - 145 [facility] [address] [place] Work Phone: [phone] Urea [...] [Ratio] 14.3 % See Below [facility] [address] [place] Work Phone: [phone] Comment on above: Reference Range: 11. 5 - 14.5 Hematocrit (Bld) [Volume fraction] 33.8 % below low threshold See Below [facility] [address] [place] Work Phone: Comment on above: Reference Range: 41. 0 - 52.0 Hemoglobin (Bld) [Mass/Vol] 10.4 g/dL below low threshold See Below [facility] [address] [place] Work Phone: Comment on above: Reference Range: 13. 5 - 17.5 MCHC (RBC) [Mass/Vol] 30.8 g/dL below low threshold See Below [facility] [address] [place] Work Phone: Comment on above: Reference Range: 32. 0 - 36.0 MCV (RBC) [Entitic vol] 90 fL 80 - 100 [facility] [address] [place] Work Phone: Platelets (Bld) [#/Vol] 133 10*3/uL below lo w threshold 150 - 450 [facility] [address] [place] Work Phone: RBC (Bld) [#/Vol] 3.75 {x10E12/L} below low threshold See Below [facility] [address] [place] Work Phone: Comment on above: Reference Range: 4.5 0 - 5.90 WBC (Bld) [#/Vol] 5.7 10*3/uL 4.4 - 11.3 [facility] [employer] [facility] [address] [place] Work Phone: Lactate, Levelon 06-28-2021 Lactate [Moles/Vol] 0.6 mmol/L 0.4 - 2.0 [facility] [address] [place] Work Phone: Comment on above: [...] RACE VARIABLE FOR THE IDMS-TRACEABLE CREATININE METHODS.https://jasn.asnjournals.org/content/early/ ASN.4690129308 0.0 {/100_WBC} 0.0-0.0 [facility] [address] [place] Work Phone: Tacrolimuson 06-28-2021 Tacrolimus (Bld) [Mass/Vol] 10.4 ng/mL 2.0 - 15.0 [facility] [address] [place] Work Phone: Comment on above: NOTE: Result was obt ained using a chemiluminescent microparticle immunoassay (CMIA) on the [employer] i system.Optimal therapeutic ranges for immuno-suppressant drugs depend upon an individualpatient's current clinical state, type oforgan transplant, time post-transplant,co-administration of other immunosuppressants,and other clinical factors. The results ofthis test should be correlated with additionalclinical and laboratory data before changesin treatment regimens are made. Complete Blood Count + Diffe rentialon 06-27-2021 Basophils/100 WBC (Bld) 0.5 % 0.0 - 2.0 [facility] [address] [place] Work Phone: Erythrocyte distribution width (RBC) [Ratio] 14.3 % See Below [facility] [address] [place] Work Phone: Comment on above: Reference Range: 11. 5 - 14.5 Hematocrit (Bld) [Volume fraction] 33.6 % below low threshold See Below [facility] [address] [place] Work Phone: Comment on above: Reference Range: 41. 0 - 52.0 Hemoglobin (Bld) [Mass/Vol] 10.3 g/dL below low threshold See Below [facility] [address] [place] Work Phone: Comment on above: Reference Range: 13. 5 - 17.5 Lymphocytes/100 WBC (Bld) 13.1 % See Below [facility] [address] [place] Work Phone: [phone] Comment on above: Reference Range: 13. 0 - 44.0 MCHC (RBC) [Mass/Vol] 30.7 g/dL below low threshold See Below [facility] [address] [place] Work Phone: [phone] Comment on above: Reference Range: 32. 0 - 36.0 MCV (RBC) [Entitic vol] 92 fL 80 - 100 [facility] [address] [place] Work Phone: [phone] Monocytes/100 WBC (Bld) 9.0 % 2.0 - 10.0 [facility] [address] [place] Work Phone: [phone] Neutrophils/100 WBC (Bld) 72.5 % See Below [facility] [address] [place] Work Phone: [phone] Comment on above: Reference Range: 40. 0 - 80.0 Platelets (Bld) [#/Vol] 137 10*3/uL below lo w threshold 150 - 450 [facility] [address] [place] Work Phone: [phone] RBC (Bld) [#/Vol] 3.67 {x10E12/L} below low threshold See Below [facility] [address] [place] Work Phone: [phone] Comment on above: Reference Range: 4.5 0 - 5.90 WBC (Bld) [#/Vol] 6.4 10*3/uL 4.4 - 11.3 [facility] [address] [place] Work Phone: [phone] Complete Blood Count + Differential 0.03 {x10E9/L} See Below [facility] [address] [place] Work Phone: Comment on [...] Wu on 06-27-2021 Glucose [Mass/Vol] 263 mg/dL [facility] Comment on above: Random Glucose Refer ence [...] 57 U/L 33 - 136 [facility] [address] [place] Work Phone: ALT With P-5'-P [Catalytic activity/Vol] 4 U/L below low threshold 10 - 52 [facility] [address] [place] Work Phone: Comment on above: Patients treated wit h Sulfasalazine may generate falsely decreased results for ALT. Anion gap [Moles/Vol] 18 mmol/L 10 - 20 [facility] [address] [place] Work Phone: AST With P-5'-P [Catalytic activity/Vol] 10 U/L 9 - 39 [facility] [address] [place] Work Phone: Bilirubin [Mass/Vol] 0.3 mg/dL 0.0 - 1.2 [facility] [address] [place] Work Phone: Calcium [Mass/Vol] 8.3 mg/dL below low threshold 8.6 - 10.6 [facility] [address] [place] Work Phone: Chloride [Moles/Vol] [...] high threshold 74 - 99 [facility] [address] [place] Work Phone: Potassium [Moles/Vol] 3.7 mmol/L 3.5 - 5.3 [facility] [address] [place] Work Phone: Protein [Mass/Vol] 5.7 g/dL below low threshold 6.4 - 8.2 [facility] [address] [place] Work Phone: Sodium [Moles/Vol] 142 mmol/L 136 - 145 [facility] [address] [place] Work Phone: Urea nitrogen [Mass/Vol] 37 mg/dL above high threshold 6 - 23 [facility] [address] [place] Work Phone: Glucose [Mass/Vol] 178 mg/dL above high threshold 74 - 99 [facility] [address] [place] Work Phone: Glucose [Mass/Vol] [...] RACE VARIABLE FOR THE IDMS-TRACEABLE CREATININE METHODS.https://jasn.asnjournals.org/content// ASN.3845649345 No Panel InformationOrdered By: Yoshi Wu on 06-27-2021 Bedside Glucose Comment Glu2: cleaned [facility] Automated erythrocytes count in urine sediment (number/area)Ordered By: Audra Quinteros on 06-26-2021 RBC Auto (Urine sed) [#/Area] 0-1 [HPF] [facility] Automated leukocytes count i n urine sediment (number/area)Ordered By: Audra Quinteros on 06-26-2021 WBC Auto (Urine sed) [#/Area] 0-1 [HPF] [facility] Bilirubin Test strip Ql (U)O rdered By: Audra Quinteros on 06-26-2021 Bilirubin Ql (U) Negative Negative [facility] COVID-19 Positive/NegativeOr dered By: Omid Myrick on 06-26-2021 SARS-CoV-2 (COVID-19) N gene JOYCE+probe Ql (Resp) Negative Negative [facility] Comment on above: Testing for SARS-CoV -2 by RT-PCRThis test was developed and its performance characteristics determined by [employer] and validated at the [facility]. This test has not been FDA [...] 06-26-2021 Color (U) Yellow Yellow [facility] Creatinine [Mass/volume] in UrineOrdered By: Audra Quinteros on 06-26-2021 Creatinine (U) [Mass/Vol] 71.5 mg/dL [facility] Comment on above: No reference range e stablished Creatinine and Glomerular fi ltration rate.predicted panel (S/P/Bld)Ordered By: Audra Quinteros on 06-26-2021 Creatinine [Mass/Vol] 1.99 mg/dL 0.64-1.27 [facility] Estimated glomerular filtrat ion rate (GFR) non- AmericanOrdered By: Audra Quinteros on 06-26-2021 GFR/1.73 sq M.predicted among non-blacks MDRD (S/P/Bld) [Vol rate/Area] 33 mL/Min [facility] Ketones Auto test strip (U) [Mass/Vol]Ordered By: Audra Quinteros on 06-26-2021 Ketones (U) [Mass/Vol] Negative Negative Fi [facility] Laboratory - Microbiology an d Antimicrobial susceptibilityOrdered By: Omid Myrick on 06-26-2021 SARS-CoV-2 (COVID-19) RNA JOYCE+probe Ql (Unsp spec) N/A [facility] Laboratory - UrinalysisOrder ed By: Audra Quinteros on 06-26-2021 Hyaline casts LM Ql (Urine sed) 0-8 [LPF] [facility] Nitrite Test strip Ql (U)Ord ered By: Audra Quinteros on 06-26-2021 Nitrite Ql (U) Negative Negative [facility] No Panel InformationOrdered By: Audra Quinteros on 06-26-2021 Estimated GFR () 40 mL/Min [facility] Comment on above: GFR estimated refere nce range: According to KDOQI guidelines, <60 ml/min/1.73m2 is sufficient to diagnose a patient with chronic kidney disease. Pharmacy Creatinine Clearance (Chem 39.[address] [facility] Protein Auto test strip (U) [Mass/Vol]Ordered By: Audra Quinteros on 06-26-2021 Protein (U) [Mass/Vol] 300 mg/dL Negative [facility] Serum or plasma calcium abhijit urement (mass/volume)Ordered By: Audra Quinteros on 06-26-2021 Calcium [Mass/Vol] 8.9 mg/dL 8.2-10.2 [facility] Serum or plasma chloride marylin surement (moles/volume)Ordered By: Audra Quinteros on 06-26-2021 Chloride [Moles/Vol] 105 mmol/L 95-114 [facility] Serum or plasma glucose abhijit urement (mass/volume)Ordered By: Audra Quinteros on 06-26-2021 Glucose [Mass/Vol] 194 mg/dL 70-100 [facility] Comment on above: ADA recommended refe rence rangeRandom Glucose Reference Range is dependent on time and content of last meal. Glucose of more than 200 mg/dL in a nonstressed, ambulatory subject supports the diagnosis of Diabetes Mellitus. Serum or plasma potassium me asurement (moles/volume)Ordered By: Omid Myrick on 06-26-2021 Potassium [Moles/Vol] 4.0 mmol/L 3.5-5.1 [facility] Serum or plasma sodium measu rement (moles/volume)Ordered By: Audra Quinteros on 06-26-2021 Sodium [Moles/Vol] 140 mmol/L 136-146 [facility] Serum or plasma total carbon dioxide measurement (moles/volume)Ordered By: Audra Quinteros on 06-26-2021 CO2 [Moles/Vol] 23.8 mmol/L 22.0-30.0 [facility] Serum or plasma urea nitroge n measurement (mass/volume)Ordered By: Audra Quinteros on 06-26-2021 Urea nitrogen [Mass/Vol] 39 mg/dL 9-[address] [facility] Specific gravity Auto test s trip (U) [Rel density]Ordered By: Audra Quinteros on 06-26-2021 Specific gravity (U) [Rel density] 1.015 1.001-1.[address] [facility] Squamous epithelial cells de tection in urine sediment by light microscopyOrdered By: Audra Quinteros on 06-26-2021 Epithelial cells.squamous LM Ql (Urine sed) None seen [HPF] [facility] Urine bacteria detection by automated methodOrdered By: Audra Quinteros on 06-26-2021 Bacteria Auto Ql (U) None seen None Seen [facility] Urine clarity by refractomet ry automatedOrdered By: Audra Quinteros on 06-26-2021 Clarity Refractometry automated (U) Clear Clear [facility] Urine glucose measurement by automated test strip (mass/volume)Ordered By: Audra Quinteros on 06-26-2021 Glucose Auto test strip (U) [Mass/Vol] Normal mg/dL Normal [facility] Urine hemoglobin detection b y automated test stripOrdered By: Audra Quinteros on 06-26-2021 Hemoglobin Auto test strip Ql (U) Negative Negative [facility] Urine leukocyte esterase det ection by automated test stripOrdered By: Audra Quinteros on 06-26-2021 Leukocyte esterase Auto test strip Ql (U) Negative Negative [facility] Urine sodium measurement (mo les/volume)Ordered By: Audra Quinteros on 06-26-2021 Sodium (U) [Moles/Vol] 94 mmol/L [facility] Comment on above: No reference range e stablished Urobilinogen Auto test strip (U) [Mass/Vol]Ordered By: Audra Quinteros on 06-26-2021 Urobilinogen (U) [Mass/Vol] Normal mg/dL Normal [facility] pH Auto test strip (U)Ordere d By: Audra Quinteros on 06-26-2021 pH (U) 5.5 [pH] 5.0-9.[address] [facility] Activated partial thrombopla stin time (aPTT) in platelet poor plasma by coagulation aOrdered By: Andrew Hernández on 06-25-2021 aPTT Coag (PPP) [Time] 33.4 s 25.1-36.5 [facility] Albumin [Mass/volume] in Ser um or PlasmaOrdered By: Andrew Hernández on 06-25-2021 Albumin [Mass/Vol] 3.4 g/dL 3.2-5.5 [facility] Basophils Auto (Bld) [#/Vol] Ordered By: Andrew Hernández on 06-25-2021 Basophils (Bld) [#/Vol] 0.0 10*3/uL 0.0-0.[address] [facility] Basophils/100 WBC Auto (Bld) Ordered By: Andrew Hernández on 06-25-2021 Basophils/100 WBC (Bld) 0.6 % [facility] Blood hemoglobin measurement (mass/volume)Ordered By: Andrew Hernández on 06-25-2021 Hemoglobin (Bld) [Mass/Vol] 11.8 g/dL 13.0-17.[address] [facility] Blood leukocytes automated c ount (number/volume)Ordered By: Andrew Hernández on 06-25-2021 WBC (Bld) [#/Vol] 7.5 10*3/uL 4.5-11.0 [facility] COVID-19 SOFIAOrdered By: Prasanna Hernández on 06-25-2021 SARS-CoV+SARS-CoV-2 (COVID-19) Ag IA.rapid Ql (Resp) Negative Negative [facility] Comment on above: This is a duplicate Jessi SARS Antigen (GABI) result to be used for statistical tracking purpose only. Creatinine and Glomerular fi ltration rate.predicted panel (S/P/Bld)Ordered By: Andrew Hernández on 06-25-2021 Creatinine [Mass/Vol] 2.25 mg/dL 0.64-1.27 [facility] Eosinophils Auto (Bld) [#/Vo l]Ordered By: Andrew Hernández on 06-25-2021 Eosinophils (Bld) [#/Vol] 0.3 10*3/uL 0.0-0.[address] [facility] Eosinophils/100 WBC Auto (Bl d)Ordered By: Andrew Hernández on 06-25-2021 Eosinophils/100 WBC (Bld) 4.6 % [facility] Erythrocyte distribution wid th Auto (RBC) [Ratio]Ordered By: Andrew Hernández on 06-25-2021 Erythrocyte distribution width (RBC) [Ratio] 16.1 % 12.0-14.[address] [facility] Erythrocyte sedimentation ra te by Photometric methodOrdered By: Andrew Hernández on 06-25-2021 ESR Photometric method (Bld) [Velocity] 39 mm/hr 0-[address] [facility] Estimated glomerular filtrat ion rate (GFR) non- AmericanOrdered By: Andrew Hernández on 06-25-2021 GFR/1.73 sq M.predicted among non-blacks MDRD (S/P/Bld) [Vol rate/Area] 28 mL/Min [facility] Globulin Calc (S) [Mass/Vol] Ordered By: Andrew Hernández on 06-25-2021 Globulin (S) [Mass/Vol] 3.2 g/dL [facility] Hematocrit Auto (Bld) [Volum e fraction]Ordered By: Andrew Hernández on 06-25-2021 Hematocrit (Bld) [Volume fraction] 36.2 % 38.8-50.[address] [facility] Laboratory - Chemistry and C hemistry - challengeOrdered By: Andrew Hernández on 06-25-2021 Natriuretic peptide B (Bld) [Mass/Vol] 165.0 pg/mL 5-[address] [facility] Laboratory - CoagulationOrde red By: Andrew Hernández on 06-25-2021 PT Coag (PPP) [Time] 11.9 s 9.0-12.9 [facility] Laboratory - Hematology and Cell countsOrdered By: Andrew Hernández on 06-25-2021 Nucleated RBC/100 WBC (Bld) [Ratio] 0.1 % 0-0.[address] [facility] Lymphocytes Auto (Bld) [#/Vo l]Ordered By: Andrew Hernández on 06-25-2021 Lymphocytes (Bld) [#/Vol] 1.0 10*3/uL 1.00-4.[address] [facility] Lymphocytes/100 WBC Auto (Bl d)Ordered By: Andrew Hernández on 06-25-2021 Lymphocytes/100 WBC (Bld) 12.9 % [facility] MCH Auto (RBC) [Entitic mass ]Ordered By: Andrew Hernández on 06-25-2021 MCH (RBC) [Entitic mass] 28.1 pg 27.5-35.[address] [facility] MCHC Auto (RBC) [Mass/Vol]Or dered By: Andrew Hernández on 06-25-2021 MCHC (RBC) [Mass/Vol] 32.7 g/dL 32.5-35.6 [facility] MCV Auto (RBC) [Entitic vol] Ordered By: Andrew Hernández on 06-25-2021 MCV (RBC) [Entitic vol] 86.0 fL 83.5-101 [facility] Monocytes Auto (Bld) [#/Vol] Ordered By: Andrew Hernández on 06-25-2021 Monocytes (Bld) [#/Vol] 0.5 10*3/uL 0.0-0.[address] [facility] Monocytes/100 WBC Auto (Bld) Ordered By: Andrew Hernández on 06-25-2021 Monocytes/100 WBC (Bld) 7.3 % [facility] Neutrophils Auto (Bld) [#/Vo l]Ordered By: Andrew Hernández on 06-25-2021 Neutrophils (Bld) [#/Vol] 5.6 10*3/uL 1.8-7.[address] [facility] Neutrophils/100 WBC Auto (Bl d)Ordered By: Andrew Hernández on 06-25-2021 Neutrophils/100 WBC (Bld) 74.6 % [facility] No Panel InformationOrdered By: Andrew Hernández on 06-25-2021 SARS Antigen (LFIA) [facility] Estimated GFR () 34 mL/Min [facility] Comment on above: GFR estimated refere nce range: According to KDOQI guidelines, <60 ml/min/1.73m2 is sufficient to diagnose a patient with chronic kidney disease. Pharmacy Creatinine Clearance (Chem 365.[address] [facility] Platelet mean volume Auto (B ld) [Entitic vol]Ordered By: Andrew Hernández on 06-25-2021 Platelet mean volume (Bld) [Entitic vol] 10.0 fL 6.6-10.[address] [facility] Platelet poor plasma interna tional normalized ratio (INR) by coagulation assay (relatOrdered By: Andrew Hernández on 06-25-2021 INR Coag (PPP) [Relative time] 1.1 {INR} [facility] Comment on above: INR Therapeutic Rang [...] (Bld) [#/Vol] 171 10*3/uL 150-[address] [facility] Comment on above: Delta: 119 on 04/05/ 22-0453 Protein [Mass/volume] in Ser um or PlasmaOrdered By: Andrew Hernández on 06-25-2021 Protein [Mass/Vol] 6.6 g/dL 6.1-7.9 [facility] RBC Auto (Bld) [#/Vol]Ordere d By: Andrew Hernández on 06-25-2021 RBC (Bld) [#/Vol] 4.21 10*6/uL 3.90-5.60 [facility] Serum or plasma C reactive p rotein measurement (mass/volume)Ordered By: Andrew Hernández on 06-25-2021 CRP [Mass/Vol] 0.9 mg/dL 0.0-1.[address] [facility] Serum or plasma alanine lopez otransferase measurement without P-5'-P (enzymatic activiOrdered By: Andrew Hernández on 06-25-2021 ALT No additional P-5'-P [Catalytic activity/Vol] 13 U/L 10-[address] [facility] Serum or plasma albumin/glob ulin mass ratioOrdered By: Andrew Hernández on 06-25-2021 Albumin/Globulin [Mass ratio] 1.1 {ratio} [facility] Serum or plasma alkaline cande sphatase measurement (enzymatic activity/volume)Ordered By: Andrew Hernández on 06-25-2021 ALP [Catalytic activity/Vol] 57 U/L 32-[address] [facility] Serum or plasma aspartate am inotransferase measurement (enzymatic activity/volume)Ordered By: Andrew Hernández on 06-25-2021 AST [Catalytic activity/Vol] 15 U/L 10-[address] [facility] Serum or plasma calcium abhijit urement (mass/volume)Ordered By: Andrew Hernández on 06-25-2021 Calcium [Mass/Vol] 9.2 mg/dL 8.2-10.2 [facility] Serum or plasma chloride marylin surement (moles/volume)Ordered By: Andrew Hernández on 06-25-2021 Chloride [Moles/Vol] 106 mmol/L 95-114 [facility] Serum or plasma glucose abhijit urement (mass/volume)Ordered By: Andrew Hernández on 06-25-2021 Glucose [Mass/Vol] 177 mg/dL 70-100 [facility] Comment on above: ADA recommended refe rence rangeRandom Glucose Reference Range is dependent on time and content of last meal. Glucose of more than 200 mg/dL in a nonstressed, ambulatory subject supports the diagnosis of Diabetes Mellitus. Serum or plasma potassium me asurement (moles/volume)Ordered By: Andrew Hernández on 06-25-2021 Potassium [Moles/Vol] 4.2 mmol/L 3.5-5.1 [facility] Serum or plasma sodium measu rement (moles/volume)Ordered By: Andrew Hernández on 06-25-2021 Sodium [Moles/Vol] 142 mmol/L 136-146 [facility] Serum or plasma total biliru bin measurement (mass/volume)Ordered By: Andrew Hernández on 06-25-2021 Bilirubin [Mass/Vol] 0.4 mg/dL 0.3-1.2 [facility] Serum or plasma total carbon dioxide measurement (moles/volume)Ordered By: Andrew Hernández on 06-25-2021 CO2 [Moles/Vol] 24.1 mmol/L 22.0-30.0 [facility] Serum or plasma urea nitroge n measurement (mass/volume)Ordered By: Andrew Hernández on 06-25-2021 Urea nitrogen [Mass/Vol] 41 mg/dL 9-[address] [facility] Troponin I.cardiac [Mass/vol ume] in Serum or Plasma by High sensitivity methodOrdered By: Andrew Hernández on 06-25-2021 Troponin I.cardiac High sensitivity method [Mass/Vol] 12 pg/mL 0-[address] [facility] Albumin [Mass/volume] in Ser um or PlasmaOrdered By: Julee Davies on 06-24-2021 Albumin [Mass/Vol] 2.9 g/dL 3.2-5.5 [facility] Basophils Auto (Bld) [#/Vol] Ordered By: Julee Davies on 06-24-2021 Basophils (Bld) [#/Vol] 0.0 10*3/uL 0.0-0.[address] [facility] Basophils/100 WBC Auto (Bld) Ordered By: Julee Daives on 04-05-2022 Basophils/100 WBC (Bld) 0.6 % [facility] Blood hemoglobin measurement (mass/volume)Ordered By: Julee Davies on 06-24-2021 Hemoglobin (Bld) [Mass/Vol] 10.8 g/dL 13.0-17.[address] [facility] Blood leukocytes automated c ount (number/volume)Ordered By: Julee Davies on 06-24-2021 WBC (Bld) [#/Vol] 6.6 10*3/uL 4.5-11.0 [facility] Creatinine and Glomerular fi ltration rate.predicted panel (S/P/Bld)Ordered By: Julee Davies on 06-24-2021 Creatinine [Mass/Vol] 2.17 mg/dL 0.64-1.27 [facility] Eosinophils Auto (Bld) [#/Vo l]Ordered By: Julee Davies on 06-24-2021 Eosinophils (Bld) [#/Vol] 0.3 10*3/uL 0.0-0.[address] [facility] Eosinophils/100 WBC Auto (Bl d)Ordered By: Julee Davies on 06-24-2021 Eosinophils/100 WBC (Bld) 5.2 % [facility] Erythrocyte distribution wid th Auto (RBC) [Ratio]Ordered By: Julee Davies on 06-24-2021 Erythrocyte distribution width (RBC) [Ratio] 15.8 % 12.0-14.[address] [facility] Estimated glomerular filtrat ion rate (GFR) non- AmericanOrdered By: Julee Davies on 06-24-2021 GFR/1.73 sq M.predicted among non-blacks MDRD (S/P/Bld) [Vol rate/Area] 30 mL/Min [facility] Globulin Calc (S) [Mass/Vol] Ordered By: Julee Davies on 06-24-2021 Globulin (S) [Mass/Vol] 2.4 g/dL [facility] Hematocrit Auto (Bld) [Volum e fraction]Ordered By: Julee Davies on 06-24-2021 Hematocrit (Bld) [Volume fraction] 33.0 % 38.8-50.[address] [facility] Laboratory - Chemistry and C hemistry - challengeOrdered By: Julee Davies on 06-24-2021 Magnesium [Mass/Vol] 1.9 mg/dL 1.6-2.6 [facility] Natriuretic peptide B (Bld) [Mass/Vol] 224.0 pg/mL 5-[address] [facility] Laboratory - Hematology and Cell countsOrdered By: Julee Davies on 06-24-2021 Nucleated RBC/100 WBC (Bld) [Ratio] 0.1 % 0-0.[address] [facility] Lymphocytes Auto (Bld) [#/Vo l]Ordered By: Julee Davies on 06-24-2021 Lymphocytes (Bld) [#/Vol] 0.8 10*3/uL 1.00-4.[address] [facility] Lymphocytes/100 WBC Auto (Bl d)Ordered By: Julee Davies on 06-24-2021 Lymphocytes/100 WBC (Bld) 11.4 % [facility] MCH Auto (RBC) [Entitic mass ]Ordered By: Julee Davies on 06-24-2021 MCH (RBC) [Entitic mass] 27.7 pg 27.5-35.[address] [facility] MCHC Auto (RBC) [Mass/Vol]Or dered By: Julee Davies on 06-24-2021 MCHC (RBC) [Mass/Vol] 32.7 g/dL 32.5-35.6 [facility] MCV Auto (RBC) [Entitic vol] Ordered By: Julee Davies on 06-24-2021 MCV (RBC) [Entitic vol] 84.6 fL 83.5-101 [facility] Monocytes Auto (Bld) [#/Vol] Ordered By: Julee Davies on 06-24-2021 Monocytes (Bld) [#/Vol] 0.5 10*3/uL 0.0-0.[address] [facility] Monocytes/100 WBC Auto (Bld) Ordered By: Julee Davies on 06-24-2021 Monocytes/100 WBC (Bld) 7.4 % [facility] Neutrophils Auto (Bld) [#/Vo l]Ordered By: Julee Davies on 06-24-2021 Neutrophils (Bld) [#/Vol] 5.0 10*3/uL 1.8-7.[address] [facility] Neutrophils/100 WBC Auto (Bl d)Ordered By: Julee Davies on 06-24-2021 Neutrophils/100 WBC (Bld) 75.4 % [facility] No Panel InformationOrdered By: Julee Davies on 06-24-2021 Estimated GFR () 36 mL/Min [facility] Comment on above: GFR estimated refere nce range: According to KDOQI guidelines, <60 ml/min/1.73m2 is sufficient to diagnose a patient with chronic kidney disease. Pharmacy Creatinine Clearance (Chem N/A [facility] Platelet mean volume Auto (B ld) [Entitic vol]Ordered By: Julee Davies on 06-24-2021 Platelet mean volume (Bld) [Entitic vol] 9.8 fL 6.6-10.[address] [facility] Platelets Auto (Bld) [#/Vol] Ordered By: Juele Davies on 06-24-2021 Platelets (Bld) [#/Vol] 119 10*3/uL 150-[address] [facility] Protein [Mass/volume] in Ser um or PlasmaOrdered By: Julee Davies on 06-24-2021 Protein [Mass/Vol] 5.3 g/dL 6.1-7.9 [facility] RBC Auto (Bld) [#/Vol]Ordere d By: Julee Davies on 06-24-2021 RBC (Bld) [#/Vol] 3.90 10*6/uL 3.90-5.60 [facility] Serum or plasma alanine lopez otransferase measurement without P-5'-P (enzymatic activiOrdered By: Julee Davies on 06-24-2021 ALT No additional P-5'-P [Catalytic activity/Vol] 7 U/L 10-[address] [facility] Serum or plasma albumin/glob ulin mass ratioOrdered By: Julee Davies on 06-24-2021 Albumin/Globulin [Mass ratio] 1.2 {ratio} [facility] Serum or plasma alkaline cande sphatase measurement (enzymatic activity/volume)Ordered By: Julee Davies on 06-24-2021 ALP [Catalytic activity/Vol] 56 U/L 32-[address] [facility] Serum or plasma aspartate am inotransferase measurement (enzymatic activity/volume)Ordered By: Julee Davies on 06-24-2021 AST [Catalytic activity/Vol] 13 U/L 10-[address] [facility] Serum or plasma calcium abhijit urement (mass/volume)Ordered By: Julee Davies on 06-24-2021 Calcium [Mass/Vol] 8.9 mg/dL 8.2-10.2 [facility] Serum or plasma chloride marylin surement (moles/volume)Ordered By: Julee Davies on 06-24-2021 Chloride [Moles/Vol] 109 mmol/L 95-114 [facility] Serum or plasma glucose abhijit urement (mass/volume)Ordered By: Julee Davies on 06-24-2021 Glucose [Mass/Vol] 160 mg/dL 70-100 [facility] Comment on above: ADA recommended refe rence rangeRandom Glucose Reference Range is dependent on time and content of last meal. Glucose of more than 200 mg/dL in a nonstressed, ambulatory subject supports the diagnosis of Diabetes Mellitus. Serum or plasma potassium me asurement (moles/volume)Ordered By: Julee Davies on 06-24-2021 Potassium [Moles/Vol] 4.1 mmol/L 3.5-5.1 [facility] Serum or plasma sodium measu rement (moles/volume)Ordered By: Julee Davies on 06-24-2021 Sodium [Moles/Vol] 144 mmol/L 136-146 [facility] Serum or plasma total biliru bin measurement (mass/volume)Ordered By: Julee Davies on 06-24-2021 Bilirubin [Mass/Vol] 0.5 mg/dL 0.3-1.2 [facility] Serum or plasma total carbon dioxide measurement (moles/volume)Ordered By: Julee Davies on 06-24-2021 CO2 [Moles/Vol] 25.7 mmol/L 22.0-30.0 [facility] Serum or plasma urea nitroge n measurement (mass/volume)Ordered By: Julee Davies on 06-24-2021 Urea nitrogen [Mass/Vol] 43 mg/dL 9- [facility] Tacrolimus [Mass/volume] in BloodOrdered By: Julee Davies on 06-24-2021 Tacrolimus (Bld) [Mass/Vol] 8.1 ng/mL [facility] Comment on above: This test was vane christine and its performance characteristicsdetermined by [facility]. It has not been cleared orapproved by the Food and Drug Administration. Trough (immediately following transplant) 15.0 Trough (steady state, 2 weeks or more after transplant): 3.0 - 8.0 Performed by LC-MS/MS technology.Performed at: [address] [id number] Director: Mynor Nixon MD, Phone: [phone] Albumin [Mass/volume] in Ser um or PlasmaOrdered By: Julee Davies on 05-27-2021 Albumin [Mass/Vol] 3.1 g/dL 3.2-5.5 [facility] Basophils Auto (Bld) [#/Vol] Ordered By: Julee Davies on 05-27-2021 Basophils (Bld) [#/Vol] 0.0 10*3/uL 0.0-0.[address] [facility] Basophils/100 WBC Auto (Bld) Ordered By: Julee Davies on 05-27-2021 Basophils/100 WBC (Bld) 0.7 % [facility] Blood hemoglobin measurement (mass/volume)Ordered By: Julee Davies on 05-27-2021 Hemoglobin (Bld) [Mass/Vol] 11.4 g/dL 13.0-17.[address] [facility] Blood leukocytes automated c ount (number/volume)Ordered By: Julee Davies on 05-27-2021 WBC (Bld) [#/Vol] 6.1 10*3/uL 4.5-11.0 [facility] Cholesterol [Mass/volume] in Serum or PlasmaOrdered By: Julee Davies on 05-27-2021 Cholesterol [Mass/Vol] 129 mg/dL 140-200 [facility] Comment on above: Chol less than 200 m g/dl low riskChol 201-239 mg/dl borderline riskChol 240 mg/dl and greater high risk Cholesterol in LDL Calc [Mas s/Vol]Ordered By: Julee Davies on 05-27-2021 Cholesterol in LDL [Mass/Vol] 67 mg/dL 0-[address] [facility] Comment on above: LDL ATP III CLASSIFI CATIONLDL less than 100 mg/dL OptimalLDL 100-129 mg/dL Near or above optimalLDL 130-159 mg/dL Borderline highLDL 160-189 mg/dL HighLDL greater than 189 mg/dL Very high Cholesterol in VLDL Calc [Ma ss/Vol]Ordered By: Jluee Davies on 05-27-2021 Cholesterol in VLDL [Mass/Vol] 27 mg/dL [facility] Creatinine and Glomerular fi ltration rate.predicted panel (S/P/Bld)Ordered By: Julee Davies on 05-27-2021 Creatinine [Mass/Vol] 1.86 mg/dL 0.64-1.27 [facility] Eosinophils Auto (Bld) [#/Vo l]Ordered By: Julee Davies on 05-27-2021 Eosinophils (Bld) [#/Vol] 0.2 10*3/uL 0.0-0.[address] [facility] Eosinophils/100 WBC Auto (Bl d)Ordered By: Julee Davies on 05-27-2021 Eosinophils/100 WBC (Bld) 3.7 % [facility] Erythrocyte distribution wid th Auto (RBC) [Ratio]Ordered By: Julee Davies on 05-27-2021 Erythrocyte distribution width (RBC) [Ratio] 14.9 % 12.0-14.[address] [facility] Estimated glomerular filtrat ion rate (GFR) non- AmericanOrdered By: Julee Davies on 05-27-2021 GFR/1.73 sq M.predicted among non-blacks MDRD (S/P/Bld) [Vol rate/Area] 35 mL/Min [facility] Globulin Calc (S) [Mass/Vol] Ordered By: Julee Davies on 05-27-2021 Globulin (S) [Mass/Vol] 2.9 g/dL F [facility] Glucose mean value [Mass/vol ume] in Blood Estimated from glycated hemoglobinOrdered By: Julee Davies on 05-27-2021 Average glucose Estimated from glycated hemoglobin (Bld) [Mass/Vol] 209 mg/dL [facility] Hematocrit Auto (Bld) [Volum e fraction]Ordered By: Julee Davies on 05-27-2021 Hematocrit (Bld) [Volume fraction] 34.1 % 38.8-50.[address] [facility] Hemoglobin A1c percentageOrd ered By: Julee Davies on 05-27-2021 HbA1c (Bld) [Mass fraction] 8.9 % 4.3-5.[address] [facility] Comment on above: Increased risk for d iabetes: 5.7 - 6.4diabetes: >6.4glycemic control for adults with diabetes: <7.0 Laboratory - Hematology and Cell countsOrdered By: Julee Davies on 05-27-2021 Nucleated RBC/100 WBC (Bld) [Ratio] 0.2 % 0-0.[address] [facility] Lymphocytes Auto (Bld) [#/Vo l]Ordered By: Julee Davies on 05-27-2021 Lymphocytes (Bld) [#/Vol] 1.1 10*3/uL 1.00-4.[address] [facility] Lymphocytes/100 WBC Auto (Bl d)Ordered By: Julee Davies on 05-27-2021 Lymphocytes/100 WBC (Bld) 17.9 % [facility] MCH Auto (RBC) [Entitic mass ]Ordered By: Julee Davies on 05-27-2021 MCH (RBC) [Entitic mass] 28.3 pg 27.5-35.[address] [facility] MCHC Auto (RBC) [Mass/Vol]Or dered By: Julee Davies on 05-27-2021 MCHC (RBC) [Mass/Vol] 33.5 g/dL 32.5-35.6 [facility] MCV Auto (RBC) [Entitic vol] Ordered By: Julee Davies on 05-27-2021 MCV (RBC) [Entitic vol] 84.5 fL 83.5-101 F [facility] Monocytes Auto (Bld) [#/Vol] Ordered By: Julee Davies on 05-27-2021 Monocytes (Bld) [#/Vol] 0.5 10*3/uL 0.0-0.[address] [facility] Monocytes/100 WBC Auto (Bld) Ordered By: Julee Davies on 05-27-2021 Monocytes/100 WBC (Bld) 7.9 % [facility] Neutrophils Auto (Bld) [#/Vo l]Ordered By: Julee Davies on 05-27-2021 Neutrophils (Bld) [#/Vol] 4.3 10*3/uL 1.8-7.[address] [facility] Neutrophils/100 WBC Auto (Bl d)Ordered By: Julee Davies on 05-27-2021 Neutrophils/100 WBC (Bld) 69.8 % [facility] No Panel InformationOrdered By: Julee Davies on 05-27-2021 25-Hydroxy Vitamin D Total 23.8 ng/mL 30-[address] [facility] Comment on above: VITAMIN D STATUS 25( [place])VITAMIN D RANGE (ng/mL) Deficient <20 Insufficient 20 to <30Sufficient 30 to 100Reference: Ely MF,Brad NC, Kristy ORTEGA, et al. Evaluation,treatment, and prevention of vitamin D deficiency; an Endocrine Society clinical practice guideline. JCEM. 2010; 96(7):1911-30. Estimated GFR () 43 mL/Min [facility] Comment on above: GFR estimated refere nce range: According to KDOQI guidelines, <60 ml/min/1.73m2 is sufficient to diagnose a patient with chronic kidney disease. Pharmacy Creatinine Clearance (Chem N/A [facility] Platelet Estimate Decreased Normal [facility] Platelet Morphology Comment Normal Normal [facility] Platelet mean volume Auto (B ld) [Entitic vol]Ordered By: Julee Davies on 05-27-2021 Platelet mean volume (Bld) [Entitic vol] 10.6 fL 6.6-10.[address] [facility] Platelets Auto (Bld) [#/Vol] Ordered By: Julee Davies on 05-27-2021 Platelets (Bld) [#/Vol] 129 10*3/uL 150-[address] [facility] Protein [Mass/volume] in Ser um or PlasmaOrdered By: Julee Davies on 05-27-2021 Protein [Mass/Vol] 6.0 g/dL 6.1-7.9 [facility] RBC Auto (Bld) [#/Vol]Ordere d By: Julee Davies on 05-27-2021 RBC (Bld) [#/Vol] 4.03 10*6/uL 3.90-5.60 [facility] RBC morphologyOrdered By: Maurice Davies on 05-27-2021 RBC morphology finding Nom (Bld) Normal [facility] Serum or plasma alanine lopez otransferase measurement without P-5'-P (enzymatic activiOrdered By: Julee Davies on 05-27-2021 ALT No additional P-5'-P [Catalytic activity/Vol] 7 U/L 10-[address] [facility] Serum or plasma albumin/glob ulin mass ratioOrdered By: Julee Davies on 05-27-2021 Albumin/Globulin [Mass ratio] 1.1 {ratio} [facility] Serum or plasma alkaline cande sphatase measurement (enzymatic activity/volume)Ordered By: Julee Davies on 05-27-2021 ALP [Catalytic activity/Vol] 52 U/L 32-[address] [facility] Serum or plasma aspartate am inotransferase measurement (enzymatic activity/volume)Ordered By: Julee Davies on 05-27-2021 AST [Catalytic activity/Vol] 11 U/L 10-[address] [facility] Serum or plasma calcium abhijit urement (mass/volume)Ordered By: Julee Davies on 05-27-2021 Calcium [Mass/Vol] 9.0 mg/dL 8.2-10.2 [facility] Serum or plasma chloride marylin surement (moles/volume)Ordered By: Julee Davies on 05-27-2021 Chloride [Moles/Vol] 104 mmol/L 95-114 [facility] Serum or plasma glucose abhijit urement (mass/volume)Ordered By: Julee Davies on 05-27-2021 Glucose [Mass/Vol] 183 mg/dL 70-100 [facility] Comment on above: ADA recommended refe rence rangeRandom Glucose Reference Range is dependent on time and content of last meal. Glucose of more than 200 mg/dL in a nonstressed, ambulatory subject supports the diagnosis of Diabetes Mellitus. Serum or plasma high density lipoprotein (HDL) cholesterol measurementOrdered By: Julee Davies on 05-27-2021 Cholesterol in HDL [Mass/Vol] 35 mg/dL 29-[address] [facility] Comment on above: HDL CHOL ATP-III CLA SSIFICATION Cardiovascular RiskHDL > or equal to 60 mg/dL LOWHDL < 40 mg/dL HIGH Serum or plasma potassium me asurement (moles/volume)Ordered By: Julee Davies on 05-27-2021 Potassium [Moles/Vol] 4.1 mmol/L 3.5-5.1 [facility] Serum or plasma sodium measu rement (moles/volume)Ordered By: Julee Davies on 05-27-2021 Sodium [Moles/Vol] 140 mmol/L 136-146 [facility] Serum or plasma total biliru bin measurement (mass/volume)Ordered By: Julee Davies on 05-27-2021 Bilirubin [Mass/Vol] 0.4 mg/dL 0.3-1.2 [facility] Serum or plasma total carbon dioxide measurement (moles/volume)Ordered By: Julee Davies on 05-27-2021 CO2 [Moles/Vol] 26.1 mmol/L 22.0-30.0 [facility] Serum or plasma total choles terol/high density lipoprotein (HDL) cholesterol mass ratOrdered By: Julee Davies on 05-27-2021 Cholesterol.total/Denise sterol in HDL [Mass ratio] 3.7 {ratio} [facility] Serum or plasma urea nitroge n measurement (mass/volume)Ordered By: Julee Davies on 05-27-2021 Urea nitrogen [Mass/Vol] 38 mg/dL 9-[address] [facility] TSH DL <= 0.005 mIU/L QnOrde red By: Julee Davies on 05-27-2021 TSH Qn 4.10 m[IU]/L 0.45-5.[address] [facility] Triglyceride [Mass/volume] i n Serum or PlasmaOrdered By: Julee Davies on 05-27-2021 Triglyceride [Mass/Vol] 136 mg/dL 35-149 [facility] Comment on above: TRIG ATP III [...] haryngealReference Range: Not Detected.This test has received [facility] Emergency Use Authorization (EUA) and has been verified by [facility] ([facility]). This test is only authorized for the duration of time that circumstances exist to justify the authorization of the emergency use of in vitro diagnostic tests for the detection of SARS-CoV-2 virus and/or diagnosis of COVID-19 infection under section 564(b)(1) of the Act, 21 U.S.C. 360bbb-3(b)(1), unless the authorization is terminated or revoked sooner. [facility] is certified under CLIA-88 as qualified to perform high complexity testing. Testing is performed in the [facility] located at [address] [place] [address].SARS-CoV-2/Flu/RSV Multiplex Test: Fact sheet for providers: https://www.fda.gov/media/401514/downloadFact sheet for patients: https://www.fda.gov/media/839926/download Coronavirus 2019 RNA by PCR, Screening Asymptomtic Canceled [facility] DO Work Phone: Comment on above: SOURCE: Nasal, Nasop haryngeal.This test has received FDA Emergency Use Authorization (EUA) and has been verified by [facility] ([facility]). This test is only authorized for the duration of time that circumstances exist to justify the authorization of the emergency use of in vitro diagnostic tests for the detection of SARS-CoV-2 virus and/or diagnosis of COVID-19 infection under section 564(b)(1) of the Act, 21 U.S.C. 360bbb-3(b)(1), unless the authorization is terminated or revoked sooner. [facility] is certified under CLIA-88 as qualified to perform high complexity testing. Testing is performed in the [facility] located at [address] [place] [address].SARS-CoV-2/Flu/RSV Multiplex Test: Fact sheet for providers: https://www.fda.gov/media/282774/downloadFact sheet for patients: https://www.fda.gov/media/340318/download Laboratory - Chemistry and C hemistry - challengeon 12-24-2020 Glucose [Mass/Vol] 203 mg/dL above high threshold 74 - 99 [facility] 260 DO Work Phone: Laboratory - Hematology and Cell countson 12-24-2020 Erythrocyte distribution width (RBC) [Ratio] 12.7 % See Below [facility] 260 DO Work Phone: Comment on [...] lo w threshold 150 - 450 [facility] 260 DO Work Phone: [phone] RBC (Bld) [#/Vol] 3.92 {x10E12/L} below low threshold See Below [facility] 260 DO Work Phone: Comment on above: Reference Range: 4.5 0 - 5.90 WBC (Bld) [#/Vol] 5.1 10*3/uL 4.4 - 11.3 [facility] 260 DO Work Phone: [phone] No Panel Informationon 12-24 Please click on the link to view the study images Normal [facility] 260 DO Work Phone: 0.0 {/100_WBC} 0.0-0.0 [facility] 260 DO Work Phone: [phone] Renal Function Panelon 12-24 Albumin BCP dye [Mass/Vol] 3.6 g/dL 3.4 - 5.0 [facility] 260 DO Work Phone: Anion gap [Moles/Vol] 15 mmol/L 10 - 20 [facility] 260 DO Work Phone: [phone] Calcium [Mass/Vol] 9.0 mg/dL 8.6 - 10.6 [facility] 260 DO Work Phone: [phone] Chloride [Moles/Vol] 109 mmol/L above high threshold 98 - 107 [facility] 260 DO Work Phone: CO2 [Moles/Vol] 24 mmol/L 21 - 32 [facility] 260 DO Work Phone: Creatinine [Mass/Vol] [...] Function Panel 45 {mL/min/1.73m2} Abnormal >60 [facility] 260 DO Work Phone: Comment on above: CALCULATIONS OF ERNST MATED GFR ARE PERFORMED USING THE MDRD STUDY EQUATION FOR THE IDMS-TRACEABLE CREATININE METHODS. CLIN CHEM 2007;53:766-72 Renal Function Panel 37 {mL/min/1.73m2} Abnormal >60 [facility] 260 DO Work Phone: Tacrolimuson 12-24-2020 Tacrolimus (Bld) [Mass/Vol] 5.4 ng/mL 2.0 - 15.0 [facility] 260 DO Work Phone: Comment on above: NOTE: Result was obt ained using a chemiluminescent microparticle immunoassay (CMIA) on the [employer] system.Optimal therapeutic ranges for immuno-suppressant drugs depend upon an individualpatient's current clinical state, type oforgan transplant, time post-transplant,co-administration of other immunosuppressants,and other clinical factors. The results ofthis test should be correlated with additionalclinical and laboratory data before changesin treatment regimens are made. CT Head without Contraston 1 CT Head limited WO contrast Normal [facility] 260 DO Work Phone: [phone] Laboratory - Chemistry and C hemistry - challengeon 12-23-2020 Glucose [Mass/Vol] 151 mg/dL above high threshold 74 - 99 [facility] 260 DO Work Phone: [phone] Glucose [Mass/Vol] 241 mg/dL above high threshold 74 - 99 [facility] 260 DO Work Phone: [phone] Glucose [Mass/Vol] 195 mg/dL above high threshold 74 - 99 [facility] 260 DO Work Phone: [phone] Glucose [Mass/Vol] 160 mg/dL above high threshold 74 - 99 [facility] 260 DO Work Phone: [phone] Laboratory - Hematology and Cell countson 12-23-2020 Erythrocyte distribution width (RBC) [Ratio] 12.5 % See Below [facility] 260 DO Work Phone: [phone] Comment on above: Reference Range: 11. 5 - 14.5 Hematocrit (Bld) [Volume fraction] 34.3 % below low threshold See Below [facility] 260 DO Work Phone: [phone] Comment on above: Reference Range: 41. 0 - 52.0 Hemoglobin (Bld) [Mass/Vol] 11.1 g/dL below low threshold See Below [facility] 260 DO Work Phone: [phone] Comment on above: Reference Range: 13. 5 - 17.5 MCHC (RBC) [Mass/Vol] 32.4 g/dL See Below [facility]- [facility] 260 DO Work Phone: [phone] Comment on above: Reference Range: 32. 0 - 36.0 MCV (RBC) [Entitic vol] 90 fL 80 - 100 M [facility] 260 DO Work Phone: [phone] Platelets (Bld) [#/Vol] 106 10*3/uL below lo w threshold 150 - 450 [facility] 260 DO Work Phone: [phone] RBC (Bld) [#/Vol] 3.83 {x10E12/L} below low threshold See Below [facility] 260 DO Work Phone: [phone] Comment on above: Reference Range: 4.5 0 - 5.90 WBC (Bld) [#/Vol] 5.2 10*3/uL 4.4 - 11.3 [facility] 260 DO Work Phone: [phone] No Panel Informationon 12-23 0.0 {/100_WBC} 0.0-0.0 [facility] 260 DO Work Phone: [phone] Renal Function Panelon 12-23 Albumin BCP dye [Mass/Vol] 3.6 g/dL 3.4 - 5.0 [facility] 260 DO Work Phone: [phone] Anion gap [Moles/Vol] 14 mmol/L 10 - 20 [facility] 260 DO Work Phone: [phone] Calcium [Mass/Vol] 8.9 mg/dL 8.6 - 10.6 [facility] 260 DO Work Phone: [phone] Chloride [Moles/Vol] 109 mmol/L above high threshold 98 - 107 [facility] 260 DO Work Phone: [phone] CO2 [Moles/Vol] 23 mmol/L 21 - 32 [facility] 260 DO Work Phone: [phone] Creatinine [Mass/Vol] 1.71 mg/dL above high threshold See Below [facility] 260 DO Work Phone: Comment on above: Reference Range: 0.5 0 - 1.30 Glucose [Mass/Vol] 146 mg/dL above high threshold 74 - 99 [facility] 260 DO Work Phone: Phosphate [Mass/Vol] [...] 4.2 mmol/L 3.5 - 5.3 [facility] 260 DO Work Phone: Sodium [Moles/Vol] 142 mmol/L 136 - 145 [facility] 260 DO Work Phone: Urea nitrogen [Mass/Vol] 50 mg/dL above high threshold 6 - 23 [facility] 260 DO Work Phone: Renal Function Panel 47 {mL/min/1.73m2} Abnormal >60 [facility] 260 DO Work Phone: Comment on above: CALCULATIONS OF ERNST MATED GFR ARE PERFORMED USING THE MDRD STUDY EQUATION FOR THE IDMS-TRACEABLE CREATININE METHODS. CLIN CHEM 2007;53:766-72 Renal Function Panel 39 {mL/min/1.73m2} Abnormal >60 [facility] 260 DO Work Phone: Tacrolimuson 12-23-2020 Tacrolimus (Bld) [Mass/Vol] 5.9 ng/mL 2.0 - 15.0 [facility] 260 DO Work Phone: Comment on above: NOTE: Result was obt ained using a chemiluminescent microparticle immunoassay (CMIA) on the [employer] system.Optimal therapeutic ranges for immuno-suppressant drugs [...] [facility] 260 DO Work Phone: [phone] Glucose [Mass/Vol] 217 mg/dL above high threshold 74 - 99 [facility] 260 DO Work Phone: [phone] Glucose [Mass/Vol] 145 mg/dL above high threshold 74 - 99 [facility] 260 DO Work Phone: Glucose [Mass/Vol] 142 mg/dL above high threshold 74 - 99 [facility] 260 DO Work Phone: Laboratory - Hematology and Cell countson 12-22-2020 Erythrocyte distribution width (RBC) [Ratio] 12.6 % See Below [facility] 260 DO Work Phone: Comment on above: Reference Range: 11. 5 - 14.5 Hematocrit (Bld) [Volume fraction] 33.0 % below low threshold See Below [facility] 260 DO Work Phone: Comment on above: Reference Range: 41. 0 - 52.0 Hemoglobin (Bld) [Mass/Vol] 10.7 g/dL below low threshold See Below [facility] 260 DO Work Phone: Comment on above: Reference Range: 13. 5 - 17.5 MCHC (RBC) [Mass/Vol] 32.4 g/dL See Below [facility] 260 DO Work Phone: [phone] Comment on above: Reference Range: 32. 0 - 36.0 MCV (RBC) [Entitic vol] 91 fL 80 - 100 M [facility] 260 DO Work Phone: [phone] Platelets (Bld) [#/Vol] 107 10*3/uL below lo w threshold 150 - 450 [facility] 260 DO Work Phone: [phone] RBC (Bld) [#/Vol] 3.62 {x10E12/L} below low threshold See Below [facility] 260 DO Work Phone: [phone] Comment on above: Reference Range: 4.5 0 - 5.90 WBC (Bld) [#/Vol] 5.0 10*3/uL 4.4 - 11.3 [facility] 260 DO Work Phone: [phone] No Panel Informationon 12-22 0.0 {/100_WBC} 0.0-0.0 [facility] 260 DO Work Phone: [phone] Renal Function Panelon 12-22 Albumin BCP dye [Mass/Vol] 3.5 g/dL 3.4 - 5.0 [facility] 260 DO Work Phone: [phone] Anion gap [Moles/Vol] 15 mmol/L 10 - 20 [facility] 260 DO Work Phone: [phone] Calcium [Mass/Vol] 8.9 mg/dL 8.6 - 10.6 [facility] 260 DO Work Phone: [phone] Chloride [Moles/Vol] 111 mmol/L above high threshold 98 - 107 [facility] 260 DO Work Phone: [phone] CO2 [Moles/Vol] 23 mmol/L 21 - 32 [facility] 260 DO Work Phone: [phone] Creatinine [Mass/Vol] 2.04 mg/dL above high threshold See Below [facility] 260 DO Work Phone: Comment on above: Reference Range: 0.5 0 - 1.30 Glucose [Mass/Vol] 131 mg/dL above high threshold 74 - 99 [facility] 260 DO Work Phone: Phosphate [Mass/Vol] 3.3 mg/dL 2.5 - 4.9 [facility] ardiolo [facility] 260 DO Work Phone: Comment on [...] Function Panel 32 {mL/min/1.73m2} Abnormal >60 [facility] 260 DO Work Phone: Tacrolimuson 12-22-2020 Tacrolimus (Bld) [Mass/Vol] 5.5 ng/mL 2.0 - 15.0 [facility] 260 DO Work Phone: Comment on above: NOTE: Result was obt ained using a chemiluminescent microparticle immunoassay (CMIA) on the [employer] system.Optimal therapeutic ranges for immuno-suppressant drugs [...] Phone: HbA1c (Bld) [Mass fraction] Canceled [facility] 260 DO Work Phone: Comment on above: Diagnosis of Diabete s-Adults Non-Diabetic: < or = 5.6% Increased risk for developing diabetes: 5.7-6.4% Diagnostic of diabetes: > or = 6.5%. Monitoring of Diabetes Age (y) Therapeutic Goal (%) Adults: >18 <7.0 Pediatrics: 13-18 <7.5 7-12 <8.0 0- 6 7.5-8.5 [place] [employer]. Diabetes Care 33(S1), Mar 2009. [...] 13-18 <7.5 7-12 <8.0 0- 6 7.5-8.5 [place] [employer]. Diabetes Care 33(S1), Mar 2009. Hemoglobin A1C Canceled [facility] 260 DO Work Phone: Laboratory - Chemistry and C hemistry - challengeon 12-21-2020 Glucose [Mass/Vol] 191 mg/dL above high threshold 74 - 99 [facility] 260 DO Work Phone: Glucose [Mass/Vol] 203 mg/dL above high threshold 74 - 99 [facility] 260 DO Work Phone: [phone] Glucose [Mass/Vol] 229 mg/dL above high threshold 74 - 99 [facility] 260 DO Work Phone: Glucose [Mass/Vol] 136 mg/dL above high threshold 74 - 99 [facility] 260 DO Work Phone: Laboratory - [...] [facility] 260 DO Work Phone: [phone] Platelets (Bld) [#/Vol] 124 10*3/uL below lo w threshold 150 - 450 [facility] 260 DO Work Phone: [phone] RBC (Bld) [#/Vol] 4.01 {x10E12/L} below low threshold See Below [facility] 260 DO Work Phone: [phone] Comment on above: Reference Range: 4.5 0 - 5.90 WBC (Bld) [#/Vol] 6.2 10*3/uL 4.4 - 11.3 [facility] 260 DO Work Phone: [phone] No Panel Informationon 12-21 0.0 {/100_WBC} 0.0-0.0 [facility] 260 DO Work Phone: [phone] Renal Function Panelon 12-21 Albumin BCP dye [Mass/Vol] 3.8 g/dL 3.4 - 5.0 [facility] 260 DO Work Phone: [phone] Anion gap [Moles/Vol] 15 mmol/L 10 - 20 [facility] 260 DO Work Phone: [phone] Calcium [Mass/Vol] 8.8 mg/dL 8.6 - 10.6 [facility] 260 DO Work Phone: [phone] Chloride [Moles/Vol] 110 mmol/L above high threshold 98 - 107 [facility] 260 DO Work Phone: [phone] CO2 [Moles/Vol] 23 mmol/L 21 - 32 [facility] lo [facility] 260 DO Work Phone: [phone] Creatinine [Mass/Vol] 2.22 mg/dL above high threshold See Below [facility] 260 DO Work Phone: [phone] Comment on above: Reference Range: 0.5 0 - 1.30 Glucose [Mass/Vol] 114 mg/dL above high threshold 74 - 99 [facility] 260 DO Work Phone: Phosphate [Mass/Vol] 3.6 mg/dL 2.5 - 4.9 [facility] 260 DO Work Phone: Comment on above: The performance waqar acteristics of phosphorus testing in heparinized plasma have been validated by the individual laboratory site where testing is performed. Testing on heparinized plasma is not approved by the FDA; however, such approval is not necessary. Potassium [Moles/Vol] 4.1 mmol/L 3.5 - 5.3 [facility] 260 DO Work Phone: Sodium [Moles/Vol] 144 mmol/L 136 - 145 [facility] 260 DO Work Phone: Urea nitrogen [Mass/Vol] 68 mg/dL above high threshold 6 - 23 [facility] 260 DO Work Phone: Renal Function Panel 35 {mL/min/1.73m2} Abnormal >60 [facility] 260 DO Work Phone: Comment on above: CALCULATIONS OF ERNST MATED GFR ARE PERFORMED USING THE MDRD STUDY EQUATION FOR THE IDMS-TRACEABLE CREATININE METHODS. CLIN CHEM 2007;53:766-72 Renal Function Panel 29 {mL/min/1.73m2} Abnormal >60 [facility] 260 DO Work Phone: Tacrolimuson 12-21-2020 Tacrolimus (Bld) [Mass/Vol] 6.8 ng/mL 2.0 - 15.0 [facility] 260 DO Work Phone: Comment on above: NOTE: Result was obt ained using a chemiluminescent microparticle immunoassay (CMIA) on the [employer] system.Optimal therapeutic ranges for immuno-suppressant drugs depend upon an individualpatient's current clinical state, type oforgan transplant, time post-transplant,co-administration of other immunosuppressants,and other clinical factors. The results ofthis test should be correlated with additionalclinical and laboratory data before changesin treatment regimens are made. Coronavirus 2019 RNA by PCR, Symptomaticon 12-20-2020 Coronavirus 2019 RNA by PCR, Symptomatic Not detected Normal See Below [facility] 260 DO Work Phone: Comment on above: SOURCE: Nasal, Nasop haryngealReference Range: Not Detected.This test has received FDA Emergency Use Authorization (EUA) and has been verified by [facility] ([facility]). This test is only authorized for the duration of time that circumstances exist to justify the authorization of the emergency use of in vitro diagnostic tests for the detection of SARS-CoV-2 virus and/or diagnosis of COVID-19 infection under section 564(b)(1) of the Act, 21 U.S.C. 360bbb-3(b)(1), unless the authorization is terminated or revoked sooner. [facility] is certified under CLIA-88 as qualified to perform high complexity testing. Testing is performed in the [facility] located at [address] [place] [address].SARS-CoV-2/Flu/RSV Multiplex Test: Fact sheet for providers: https://www.fda.gov/media/993650/downloadFact sheet for patients: https://www.fda.gov/media/737741/download Date and time of symptom onset Canceled [facility] 260 DO Work Phone: Coronavirus 2019 RNA by PCR, Symptomatic Canceled [facility] 260 DO Work Phone: Comment on [...] this test method. Fact sheet for providers: www.fda.gov/media/429202/downloadFact sheet for patients: www.fda.gov/media/977515/downloadThis test has received FDA Emergency Use Authorization (EUA) and has been verified by [facility] ([facility]). This test is only authorized for the duration of time that circumstances exist to justify the authorization of the emergency use of in vitro diagnostic tests for the detection of SARS-CoV-2 virus and/or diagnosis of COVID-19 infection under section 564(b)(1) of the Act, 21 U.S.C. 360bbb-3(b)(1), unless the authorization is terminated or revoked sooner. [facility] is certified under CLIA-88 as qualified to perform high complexity testing. Testing is performed in the [facility] laboratories located at [address] [place] [address]. Folate, Serumon 12-20-2020 Folate [Mass/Vol] ng/mL >5.0 [facility] 260 DO Work Phone: Comment on [...] TSH Qn 2.00 m[IU]/L See Below [facility] 260 DO Work Phone: Comment on above: Reference Range: 0.4 4 - 3.98 TSH testing is performed using different testing methodology at [facility] than at other [facility]. Direct result comparisons should only [...] [facility] 260 DO Work Phone: [phone] PT Coag (PPP) [Time] Canceled [facility] 260 DO Work Phone: [phone] Laboratory - Hematology and Cell countson 12-20-2020 Erythrocyte distribution width (RBC) [Ratio] 12.9 % See Below [facility] 260 DO Work Phone: [phone] Comment on above: Reference Range: 11. 5 - 14.5 Hematocrit (Bld) [Volume fraction] 35.8 % below low threshold See Below [facility] 260 DO Work Phone: [phone] Comment on above: Reference Range: 41. 0 - 52.0 Hemoglobin (Bld) [Mass/Vol] 11.7 g/dL below low threshold See Below [facility] 260 DO Work Phone: [phone] Comment on above: Reference Range: 13. 5 - 17.5 MCHC (RBC) [Mass/Vol] 32.7 g/dL See Below [facility]- [facility] 260 DO Work Phone: [phone] Comment on above: Reference Range: 32. 0 - 36.0 MCV (RBC) [Entitic vol] 90 fL 80 - 100 M [facility] 260 DO Work Phone: [phone] Platelets (Bld) [#/Vol] 131 10*3/uL below lo w threshold 150 - 450 [facility] 260 DO Work Phone: [phone] RBC (Bld) [#/Vol] 3.97 {x10E12/L} below low [...] above: . <100 pg/mL - Heart failure [id number] pg/mL - Intermediate probability of acute heart. [...] Radiologyon 12-20-2020 XR Abdomen AP Normal [facility] 260 DO Work Phone: XR Chest [...] 9.2 mg/dL 8.6 - 10.6 [facility] 260 DO Work Phone: [phone] Chloride [Moles/Vol] 112 mmol/L above high threshold 98 - 107 [facility] 260 DO Work Phone: [phone] CO2 [Moles/Vol] 24 mmol/L 21 - 32 MG-Cardio lo [facility] 260 DO Work Phone: [phone] Creatinine [Mass/Vol] 2.40 mg/dL above high threshold See Below [facility] 260 DO Work Phone: [phone] Comment on above: Reference Range: 0.5 0 - 1.30 Glucose [Mass/Vol] 211 mg/dL above high threshold 74 - 99 [facility] 260 DO Work Phone: [phone] Phosphate [Mass/Vol] 4.5 mg/dL 2.5 - 4.9 MG[facility] 260 DO Work Phone: [phone] Comment on above: The performance waqar acteristics [...] above high threshold 136 - 145 [facility] 260 DO Work Phone: [phone] Urea nitrogen [Mass/Vol] 74 mg/dL above high threshold 6 - 23 [facility] 260 DO Work Phone: Renal Function Panel 31 {mL/min/1.73m2} Abnormal >60 [facility] 260 DO Work Phone: Comment on [...] a chemiluminescent microparticle immunoassay (CMIA) on the [employer] system.Optimal therapeutic ranges for immuno-suppressant drugs depend upon an individualpatient's current clinical state, type oforgan transplant, time post-transplant,co-administration of other immunosuppressants,and other clinical factors. The results ofthis test should be correlated with additionalclinical and laboratory data before changesin treatment regimens are made. Troponin I, Serumon 12-21-19 Troponin I.cardiac [Mass/Vol] 0.02 ng/mL See Below [facility] 260 DO Work Phone: Comment on [...] is performed using different testing methodology at [facility] than at other [facility]. Direct result comparisons should only be [...] above high threshold 211 - 911 [facility]-Cardiolo w[facility] 260 scanR Work Phone: Basic Metabolic PanelOrdered By: Manuel Conner on 12-19-2020 Anion gap [Moles/Vol] 11 mmol/L 9 - 17 mmol/L [employer] Phone: Calcium [Mass/Vol] 9.3 mg/dL 8.6 - 10. 4 mg/dL [employer] Phone: Chloride [Moles/Vol] 107 mmol/L 98 - 10 7 mmol/L [employer] Phone: CO2 [Moles/Vol] 23 mmol/L 20 - 31 mmol/L [employer] Phone: Creatinine [Mass/Vol] 2.53 mg/dL High 0.70 - 1.20 mg/dL [employer] Phone: GFR 30 mL/min Low >60 [employer] Phone: GFR Non- 25 mL/min Low >60 [employer] Phone: Glucose [Mass/Vol] 160 mg/dL High 70 - 99 mg/dL Hired Phone: Interpretation and review of laboratory results Abnormal Hired Phone: Potassium [Moles/Vol] 4.5 mmol/L 3.7 - 5.3 mmol/L Hired Phone: Sodium [Moles/Vol] 141 mmol/L 135 - 144 mmol/L Hired Phone: Urea nitrogen (BldV) [Mass/Vol] 76 mg/dL High 8 - 23 mg/dL Hired Phone: Urea nitrogen/Creatinine (Bld) [Mass ratio] 30 High Hired Phone: Hired Phone: Laboratory - Chemistry and C hemistry - challengeOrdered By: Manuel Conner on 12-19-2020 GFR/1.73 sq M.predicted MDRD (S/P/Bld) [Vol rate/Area] Hired Phone: Comment on above: Average GFR for 70 o r more years old: 75 mL/min/1.73sq m Chronic Kidney Disease: <60 mL/min/1.73sq m Kidney failure: <15 mL/min/1.73sq m eGFR calculated using average adult body mass. Additional eGFR calculator available at: http://www.JobPlanet/VitalTrax_crcl_2012.htm Stage 1: Some kidney damage normal GFR Stage 2: Mild kidney damage GFR 60-89 Stage 3: Moderate kidney damage GFR 30-59 Stage 4: Severe kidney damage GFR 15-29 Stage 5: Severe kidney damage GFR <15 ESRD - chronic treatment by dialysis or transplant TroponinOrdered By: Manuel Conner on 12-19-2020 Interpretation and review of laboratory results Abnormal Hired Phone: Troponin Interp NOT REPORTED Hired Phone: Troponin T NOT REPORTED <0.03 ng/mL Hired Phone: Troponin, High Sensitivity 57 ng/L Critically high 0 - 22 ng/L Hired Phone: Comment on above: High Sensitivity Troponin values cannot be compared with other Troponin methodologies. Patients with high levels of Biotin oral intake (i.e >5mg/day) may have falsely decreased Troponin levels. Samples collected within 8 hours of biotin intake may require additional information for diagnosis. Hired Phone: Basic Metabolic PanelOrdered By: Manuel Conner on 12-18-2020 Anion gap [Moles/Vol] 14 mmol/L 9 - 17 mmol/L Hired Phone: Calcium [Mass/Vol] 9.3 mg/dL 8.6 - 10. 4 mg/dL Hired Phone: Chloride [Moles/Vol] 104 mmol/L 98 - 10 7 mmol/L Hired Phone: CO2 [Moles/Vol] 22 mmol/L 20 - 31 mmol/L Hired Phone: Creatinine [Mass/Vol] 4.1 mg/dL High 0.70 - 1.20 mg/dL Hired Phone: GFR 17 mL/min Low >60 [employer] Phone: GFR Non- 14 mL/min Low >60 Hired Phone: Glucose [Mass/Vol] 148 mg/dL High 70 - 99 mg/dL Hired Phone: Potassium [Moles/Vol] 5.2 mmol/L 3.7 - 5.3 mmol/L Hired Phone: Sodium [Moles/Vol] 140 mmol/L 135 - 144 mmol/L Hired Phone: Urea nitrogen (BldV) [Mass/Vol] 87 mg/dL High 8 - 23 mg/dL Hired Phone: Urea nitrogen/Creatinine (Bld) [Mass ratio] 21 High Hired Phone: Brain Natriuretic PeptideOrd ered By: Manuel Conner on 12-18-2020 BNP Interpretation Pro-BNP Reference Range: Hired Phone: Comment on above: Rule Out: <300 Pagan Zone: Age <50 300-450 Age 50-75 300-900 Age >75 300-1800 Usually represents mild to moderate HF but other cardiopulmonary causes cannot be ruled out. Rule In: Age <50 >450 Age 50-75 >900 Age >75 >1800 Interpretation and review of laboratory results Abnormal Hired Phone: Natriuretic peptide B (Bld) [Mass/Vol] 846 pg/mL High <300 Hired Phone: Comment on above: Pro-BNP results halie ot be compared to BNP results. Hired Phone: EKG Rhythm StripOrdered By: Unknown Result on 12-18-2020 Hired Phone: Hired Phone: Glucose, Whole BloodOrdered By: Manuel Conner on 12-18-2020 Glucose [Mass/Vol] 152 mg/dL High 74 - 100 mg/dL Hired Phone: Interpretation and review of laboratory results Abnormal Hired Phone: Hired Phone: Laboratory - Chemistry and C hemistry - challengeOrdered By: Manuel Conner on 12-18-2020 GFR/1.73 sq M.predicted MDRD (S/P/Bld) [Vol rate/Area] Hired Phone: Comment on above: Average GFR for 70 o r more years old: 75 mL/min/1.73sq m Chronic Kidney Disease: <60 mL/min/1.73sq m Kidney failure: <15 mL/min/1.73sq m eGFR calculated using average adult body mass. Additional eGFR calculator available at: http://www.[employer] Records.[employer]/multiple_crcl_2012.htm Stage 1: Some kidney damage normal GFR Stage 2: Mild kidney damage GFR 60-89 Stage 3: Moderate kidney damage GFR 30-59 Stage 4: Severe kidney damage GFR 15-29 Stage 5: Severe kidney damage GFR <15 ESRD - chronic treatment by dialysis or transplant No Panel InformationOrdered By: Manuel Conner on 12-18-2020 Interpretation and review of laboratory results Abnormal Hired Phone: Hired Phone: TroponinOrdered By: Manuel Conner on 12-18-2020 Troponin Interp NOT REPORTED Hired Phone: Troponin T NOT REPORTED <0.03 ng/mL Hired Phone: Troponin, High Sensitivity 71 ng/L Critically high 0 - 22 ng/L Hired Phone: Comment on above: High Sensitivity Troponin [...] Consider advancement by 5-7 cm, if able. Hired Phone: EXAMINATION: ONE XRA Y VIEW OF [...] cardiomegaly. Bony thorax is without acute abnormality. Hired Phone: Roger, Mhpn Incoming R adiant Results From [facility] - 12/18/2020 1:31 PM EDT EXAMINATION: ONE [...] Consider advancement by 5-7 cm, if able. Hired Phone: Hired Phone: XR CHEST PORTABLEOrdered By: Manuel Conner on 12-18-2020 Mild prominence of interstitial markings suggests mild vascular congestion with mild streaky bibasilar atelectasis Hired Phone: EXAMINATION: ONE XRA Y VIEW OF THE CHEST 12/18/2020 11:18 am COMPARISON: December 17, 2020, chest examination HISTORY: ORDERING SYSTEM PROVIDED HISTORY: Congestion TECHNOLOGIST PROVIDED HISTORY: Congestion FINDINGS: Median sternotomy. Stable cardiomegaly/mild tortuosity of the thoracic aorta Mild streaky bibasilar density. Mild prominence of interstitial markings Possible small right pleural effusion Degenerative changes of the thoracic spine/shoulders Hired Phone: Roger, Mhpn Incoming R adiant Results From [facility] - 12/18/2020 11:26 AM EDT EXAMINATION: ONE [...] vascular congestion with mild streaky bibasilar atelectasis Hired Phone: Hired Phone: APTTOrdered By: Manuel lew on 12-17-2020 aPTT Coag (Bld) [Time] 22.8 s Low Me [employer] Phone: Comment on above: IV Heparin Therapy Range: 62.0-94.0 Interpretation and review of laboratory results Abnormal Hired Phone: Hired Phone: Blood Gas, VenousOrdered By: Manuel Conner on 12-17-2020 Shilo Test NOT REPORTED Hired Phone: Carboxyhemoglobin NOT REPORTED 0.0 - 5.0 % Hired Phone: Comment on above: FIO2 NOT REPORTED Hired Phone: HCO3 (Bld) [Moles/Vol] 21.9 mmol/L Low 24.0 - 30.0 mmol/L Hired Phone: Interpretation and review of laboratory results Abnormal Hired Phone: Methemoglobin NOT REPORTED 0.0 - 1.9 % Hired Phone: Mode NOT REPORTED Hired Phone: Negative Base Excess, Angelo 5.7 mmol/L High 0.0 - 2.0 mmol/L Hired Phone: NOTIFICATION NOT REPORTED Hired Phone: NOTIFICATION TIME NOT REPORTED Hired Phone: O2 Device/Flow/% NOT REPORTED Hired Phone: Oxygen saturation in Blood 31.2 % Low 60.0 - 85.0 % Hired Phone: Oxyhemoglobin NOT REPORTED 95.0 - 98.0 [...] Work Phone: Respiratory Rate NOT REPORTED [facility] Work Phone: Sample Site NOT REPORTED [facility] Work Phone: Set Rate NOT REPORTED [facility] Work Phone: Text for Respiratory NOT REPORTED [facility] Work Phone: Total Hb NOT REPORTED 12.0 - 16.0 g/dl [facility] Work Phone: Total Rate NOT REPORTED [facility] Work Phone: [place] NOT REPORTED [facility] Work Phone: [phone] [facility] Work Phone: Brain Natriuretic PeptideOrd ered By: Manuel Conner on 12-17-2020 BNP Interpretation Pro-BNP Reference Range: Hired Phone: Comment on above: Rule Out: <300 Pagan Zone: Age <50 300-450 Age 50-75 300-900 Age >75 300-1800 Usually represents mild to moderate HF but other cardiopulmonary causes cannot be ruled out. Rule In: Age <50 >450 Age 50-75 >900 Age >75 >1800 Natriuretic peptide B (Bld) [Mass/Vol] 1428 pg/mL High <300 Hired Phone: Comment on above: Pro-BNP results halie ot be compared to BNP results. CBC Auto DifferentialOrdered By: Manuel Conner on 12-17-2020 Absolute Eos # 0.03 Hired Phone: Absolute Immature Granulocyte 0.03 Hired Phone: Absolute Lymph # 0.96 Low Hired Phone: Absolute [place] # 0.52 Hired Phone: Basophils (Bld) [#/Vol] 10*3/uL [employer] Phone: Basophils/100 WBC (Bld) 0 % 0 - 2 % [employer] Phone: Differential Type NOT REPORTED Hired Phone: Eosinophils/100 WBC (Bld) 0 % Low 1 - 4 % Hired Phone: Hematocrit (Bld) [Volume fraction] 37.2 % Low 40.7 - 50.3 % Hired Phone: Hemoglobin.gastrointest inal spec 1 Ql (Stl) 11.5 g/dL Low 13.0 - 17.0 g/dL Hired Phone: Immature granulocytes/100 WBC (Bld) 0 % 0 Hired Phone: Interpretation and review of laboratory results Abnormal Hired Phone: Lymphocytes/100 WBC (Bld) 11 % Low 24 - 43 % Hired Phone: MCH (RBC) [Entitic mass] 28.5 pg 25.2 - 33.5 pg Hired Phone: MCHC (RBC) [Mass/Vol] 30.9 g/dL 28.4 - 34.8 g/dL Hired Phone: MCV (RBC) [Entitic vol] 92.3 fL 82.6 - 102.9 fL Hired Phone: Monocytes/100 WBC (Bld) 6 % 3 - 12 % [employer] Phone: NRBC Automated 0.0 0.0 per 100 WBC Hired Phone: Platelet distribution width (Bld) [Ratio] 13.0 % 11.8 - 14.4 % Hired Phone: Platelet Estimate NOT REPORTED Hired Phone: Platelet mean volume (Bld) [Entitic vol] NOT REPORTED 8.1 - 13.5 fL Hired Phone: Platelets (Bld) [#/Vol] See Reflexed IPF Result Hired Phone: RBC (Bld) [#/Vol] 4.03 10*6/uL Low 4.21 - 5.77 m/uL Hired Phone: RBC (Bld) [#/Vol] NOT REPORTED Hired Phone: Segmented neutrophils/100 WBC (Bld) 82 % High 36 - 65 % Hired Phone: Segs Absolute 6.94 Hired Phone: WBC (Bld) [#/Vol] 8.5 10*3/uL Hired Phone: WBC (Bld) [#/Vol] NOT REPORTED Hired Phone: Hired Phone: COVID-19, RapidOrdered By: Agnieszka yaritza Conner on 12-17-2020 SARS-CoV-2 (COVID-19) RNA JOYCE+probe Ql (Unsp spec) Not detected Not Detected Hired Phone: Comment on above: Rapid NAAT: The [...] management decisions. Fact sheet for Healthcare Providers: https://www.fda.gov/media/960515/download Fact sheet for Patients: https://www.fda.gov/media/133926/download Methodology: Isothermal Nucleic Acid Amplification Specimen Description .NASOPHARYNGEAL SWAB Hired Phone: Hired Phone: CT HEAD WO CONTRASTOrdered B y: Manuel Conner on 12-17-2020 No acute intracrania l abnormality. 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 Minimal parenchymal volume loss. Minimal chronic microvascular disease. Hired Phone: EXAMINATION: CT OF T HE HEAD [...] of the visualized skull or soft tissues. Hired Phone: Roger, pn Incoming R adiant Results From [facility] - 12/17/2020 9:36 AM EDT EXAMINATION: CT [...] parenchymal volume loss. Minimal chronic microvascular disease. Hired Phone: Hired Phone: Comprehensive Metabolic Pane l w/ Reflex to MGOrdered By: Manuel Conner on 12-17-2020 Albumin [Mass/Vol] 4 g/dL 3.5 - 5.2 g/dL Hired Phone: Albumin/Globulin [Mass ratio] 1.3 {ratio} Hired Phone: ALP (Bld) [Catalytic activity/Vol] 66 U/L 40 - 129 U/L Hired Phone: ALT [Catalytic activity/Vol] 12 U/L 5 - 41 U/L Hired Phone: Anion gap [Moles/Vol] 19 mmol/L High 9 - 17 mmol/L Hired Phone: AST [Catalytic activity/Vol] 18 U/L <40 Hired Phone: Bilirubin [Mass/Vol] 0.16 mg/dL Low 0.3 - 1 .2 mg/dL Hired Phone: Calcium [Mass/Vol] 8.8 mg/dL 8.6 - 10. 4 mg/dL Hired Phone: Chloride [Moles/Vol] 102 mmol/L 98 - 10 7 mmol/L Hired Phone: CO2 [Moles/Vol] 19 mmol/L Low 20 - 31 mmol/L Hired Phone: Creatinine [Mass/Vol] 6.59 mg/dL Critically high 0.7 0 - 1.20 mg/dL Hired Phone: Free PSA/Total PSA [Mass fraction] 7.0 g/dL 6.4 - 8.3 g/dL Hired Phone: GFR 10 mL/min Low >60 [employer] Work Phone: GFR Non- 8 mL/min Low >60 Hired Phone: Glucose [Mass/Vol] 197 mg/dL High 70 - 99 mg/dL Hired Phone: Potassium [Moles/Vol] 4.6 mmol/L 3.7 - 5.3 mmol/L Hired Phone: Sodium [Moles/Vol] 140 mmol/L 135 - 144 mmol/L Hired Phone: Urea nitrogen (BldV) [Mass/Vol] 96 mg/dL Critically high 8 - 23 mg/dL Hired Phone: Urea nitrogen/Creatinine (Bld) [Mass ratio] 15 Hired Phone: EKG 12 LeadOrdered By: Kathy Conner on 12-17-2020 Atrial Rate 85 BPM Hired Phone: P Mason -15 degrees Hired Phone: P-R Interval 224 ms Hired Phone: Q-T Interval 414 ms Hired Phone: QRS Duration 120 ms Hired Phone: [phone] QTc Calculation (Bazett) 492 ms Hired Phone: [phone] R Mason 99 degrees Hired Phone: T Mason 44 degrees Hired Phone: Ventricular Rate 85 BPM Hired Phone: Sinus rhythm with 1s t degree A-V block Rightward axis Septal infarct , age undetermined Abnormal ECG No previous ECGs available Confirmed by JARON BERNARD ([id number]) on 12/17/2020 11:51:30 PM Hired Phone: Roger, Mhpn Incoming E kg Results From [facility] [place] - 12/17/2020 11:51 PM EDT Sinus rhythm with 1st degree A-V block Rightward axis Septal infarct , age undetermined Abnormal ECG No previous ECGs available Confirmed by JARON BERNARD ([id number]) on 12/17/2020 11:51:30 PM Hired Phone: Hired Phone: Immature Platelet FractionOr dered By: Manuel Conner on 12-17-2020 Interpretation and review of laboratory results Abnormal Hired Phone: Platelet, Fluorescence 110 Low [employer] Phone: Platelet, Immature Fraction 4.6 % 1.1 - 10.3 % Hired Phone: Hired Phone: Laboratory - Chemistry and C hemistry - challengeOrdered By: Manuel Conner on 12-17-2020 GFR/1.73 sq M.predicted MDRD (S/P/Bld) [Vol rate/Area] Hired Phone: Comment on above: Average GFR for 70 o r more years old: 75 mL/min/1.73sq m Chronic Kidney Disease: <60 mL/min/1.73sq m Kidney failure: <15 mL/min/1.73sq m eGFR calculated using average adult body mass. Additional eGFR calculator available at: http://www.[employer] Records.[employer]/multiple_crcl_2012.htm Stage 1: Some kidney damage normal GFR Stage 2: Mild kidney damage GFR 60-89 Stage 3: Moderate kidney damage GFR 30-59 Stage 4: Severe kidney damage GFR 15-29 Stage 5: Severe kidney damage GFR <15 ESRD - chronic treatment by dialysis or transplant Lactic AcidOrdered By: Kathy Conner on 12-17-2020 Lactate [Moles/Vol] 1.3 mmol/L 0.5 - 2. 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 Flow artifact in the proximal M1 segments of the bilateral MCAs and intracranial right ICA. The bilateral intracranial vertebral arteries are not imaged. Hired Phone: EXAMINATION: MRA OF THE HEAD WITHOUT CONTRAST 12/17/2020 1:32 pm TECHNIQUE: MRA of the head was performed utilizing [id number] imaging with MIP images. No intravenous contrast [...] cerebral arteries. No evidence of intracranial aneurysm. Hired Phone: Roger, Mhpn Incoming R adiant Results From [facility] - 12/17/2020 2:02 PM EDT EXAMINATION: MRA OF THE HEAD WITHOUT CONTRAST 12/17/2020 1:32 pm TECHNIQUE: MRA of the head was performed utilizing [id number] imaging with MIP images. No intravenous contrast [...] bilateral intracranial vertebral arteries are not imaged. 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 Hired Phone: No acute intracrania l abnormality. 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 Mild parenchymal volume loss. Mild chronic microvascular disease. 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 Hired Phone: EXAMINATION: MRI OF THE BRAIN WITHOUT [...] The soft tissues demonstrate no acute abnormality. Hired Phone: Roger, [facility] Incoming R adiant Results From [employer] - 12/17/2020 1:55 PM EDT EXAMINATION: MRI [...] internal carotid artery, likely related to occlusion. [employer] Work Phone: [employer] Work Phone: Microscopic UrinalysisOrdere d By: Manuel Conner on 12-17-2020 - [employer] Work Phone: Amorphous, UA NOT REPORTED None [employer] Work Phone: Bacteria, UA NOT REPORTED None [employer] Work Phone: Casts UA NOT REPORTED /[facility]F [facility]: Crystals, UA NOT REPORTED None /HPF [employer] Work Phone: Epithelial Cells UA 0 TO 2 [employer] Work Phone: Mucus, UA NOT REPORTED None [employer] Work Phone: Other Observations UA NOT REPORTED NOT REQ. [facility] Phone: RBC, UA 2 TO 5 [employer] Work Phone: Renal Epithelial, UA NOT REPORTED 0 /HPF [facility] [employer] Work Phone: Trichomonas, UA NOT REPORTED None [employer] Work Phone: WBC, UA 0 TO 2 [facility]: Yeast, UA NOT REPORTED None [employer] Work Phone: [facility]: No Panel InformationOrdered By: Manuel Conner on 12-17-2020 Interpretation and review of laboratory results Abnormal [employer] Work Phone: [employer] Work Phone: Interpretation and review of laboratory results Abnormal [employer] Work Phone: [employer] Work Phone: Protime-INROrdered By: Kathy Conner on 12-17-2020 INR Coag (Bld) [Relative time] 1.1 {INR} Hired Phone: Comment on above: Non-therapeutic Range: INR = 0.9-1.2 Therapeutic Range: Moderate Anticoagulant Intensity: INR = 2.0-3.0 High Anticoagulant Intensity: INR = 2.5-3.5 PT Coag (PPP) [Time] 13.7 s [employer] Phone: Hired Phone: TroponinOrdered By: Manuel Conner on 12-17-2020 Interpretation and review of laboratory results Abnormal Hired Phone: Troponin Interp NOT REPORTED Hired Phone: Troponin T NOT REPORTED <0.03 ng/mL Hired Phone: Troponin, High Sensitivity 79 ng/L Critically high 0 - 22 ng/L Hired Phone: Comment on above: High Sensitivity Troponin values cannot be compared with other Troponin methodologies. Patients with high levels of Biotin oral intake (i.e >5mg/day) may have falsely decreased Troponin levels. Samples collected within 8 hours of biotin intake may require additional information for diagnosis. Hired Phone: Troponin Interp NOT REPORTED Hired Phone: Troponin T NOT REPORTED <0.03 ng/mL Hired Phone: Troponin, High Sensitivity 85 ng/L Critically high 0 - 22 ng/L Hired Phone: Comment on above: High Sensitivity Troponin values cannot be compared with other Troponin methodologies. Patients with high levels of Biotin oral intake (i.e >5mg/day) may have falsely decreased Troponin levels. Samples collected within 8 hours of biotin intake may require additional information for diagnosis. Urinalysis, reflex to micros copicOrdered By: Manuel Conner on 12-17-2020 Bilirubin Urine Negative NEGATIVE [employer] Work Phone: Color, UA Yellow Yellow [employer] Work Phone: Glucose, Ur Negative NEGATIVE [employer] Work Phone: Interpretation and review of laboratory results Abnormal [employer] Work Phone: Ketones Ql (U) Negative NEGATIVE [employer] Work Phone: Leukocyte esterase Test strip Ql (U) Negative NEGATIVE [employer] Work Phone: Nitrite, Urine Negative NEGATIVE [employer] Work Phone: pH, UA 5.5 [employer] Work Phone: Protein, UA TRACE Abnormal NEGATIVE Hired Phone: Specific [place], UA 1.025 High [employer] Work Phone: Turbidity UA Clear Clear [employer] Work Phone: Urinalysis Comments NOT REPORTED [facility] [employer] Work Phone: Urine Hgb TRACE Abnormal NEGATIVE Hired Phone: Urobilinogen, Urine Normal Normal Hired Phone: [employer] Work Phone: XR CHEST PORTABLEOrdered By: Manuel Conner on 12-17-2020 Mild streaky bibasil ar atelectasis with possible small bilateral pleural effusions Hired Phone: EXAMINATION: ONE XRA Y VIEW OF THE CHEST 12/17/2020 9:30 am COMPARISON: None. HISTORY: ORDERING SYSTEM PROVIDED HISTORY: Congestion TECHNOLOGIST PROVIDED HISTORY: Congestion FINDINGS: Median sternotomy. Normal cardiopericardial silhouette Low volume lungs. Mild streaky bibasilar densities, possible possible small bilateral pleural effusions. Clear upper lungs Degenerative changes of the thoracic spine/shoulders Hired Phone: Roger, Mhpn Incoming R adiant Results From [employer] - 12/17/2020 9:46 AM EDT EXAMINATION: ONE [...] atelectasis with possible small bilateral pleural effusions Hired Phone: Hired Phone: Vital Signs Date Time Vital Sign Value Performing Clinician Facility 07-03-2021 15:01-0400 Body temperature 99.32 [degF] Michael Carballo Other Phone: [facility] 07-03-2021 15:01-0400 Diastolic blood pressure 66 mm[Hg] Michael Carballo Other Phone: [facility] 07-03-2021 15:01-0400 Heart rate 80 /min Michael Carballo Other Phone: [facility] 07-03-2021 15:01-0400 Respiratory rate 22 /min Michael Carballo Other Phone: [facility] 07-03-2021 15:01-0400 SaO2% (BldA) [Mass fraction] 97 % Michael Carballo Other Phone: [facility] 07-03-2021 15:01-0400 Systolic blood pressure 127 mm[Hg] Michael Carballo Other Phone: [facility] 07-03-2021 06:30-0400 Body weight 100.5 kg Michael Carballo Other Phone: [facility] 06-27-2021 13:00-0400 Diastolic blood pressure 69 mm[Hg] MD Michael Carballo Work Phone: [facility] 06-27-2021 13:00-0400 Heart rate 87 /min MD Michael Carballo Work Phone: [facility] 06-27-2021 13:00-0400 Respiratory rate 17 /min MD Michael Carballo Work Phone: [facility] 06-27-2021 13:00-0400 SaO2% (BldA) [Mass fraction] 94 % MD Michael Carballo Work Phone: [facility] 06-27-2021 13:00-0400 Systolic blood pressure 153 mm[Hg] MD Michael Carballo Work Phone: [facility] 06-27-2021 08:00-0400 Body temperature 97.9 [degF] MD Michael Carballo Work Phone: [facility] 06-27-2021 05:44-0400 Body weight 106.5 kg MD Michael Carballo Work Phone: [facility] 06-26-2021 14:12-0400 Body height 182.88 cm MD Michael Carballo Work Phone: [facility] 06-26-2021 00:24-0400 Body height 182.88 cm MD Michael Carballo Work Phone: [facility] 06-26-2021 00:24-0400 Body mass index (BMI) [Ratio] 32.8 kg/m2 MD Michael Carballo Work Phone: [facility] 06-26-2021 00:24-0400 Body temperature 97.7 [degF] MD Michael Carballo Work Phone: [facility] 06-26-2021 00:24-0400 Body weight 109.9 kg MD Michael Carballo Work Phone: [facility] 06-26-2021 00:24-0400 Diastolic blood pressure 100 mm[Hg] MD Michael Carballo Work Phone: [facility] 06-26-2021 00:24-0400 Heart rate 88 /min MD Michael Carballo Work Phone: [facility] 06-26-2021 00:24-0400 Respiratory rate 18 /min MD Michael Carballo Work Phone: [facility] 06-26-2021 00:24-0400 SaO2% (BldA) [Mass fraction] 96 % MD Michael Carballo Work Phone: [facility] 06-26-2021 00:24-0400 Systolic blood pressure 221 mm[Hg] MD Michael Carballo Work Phone: [facility] 12-19-2020 20:01-0400 Diastolic blood pressure 64 mm[Hg] Manuel Conner MD Work Phone: [employer] Work Phone: 12-19-2020 20:01-0400 Systolic blood pressure 182 mm[Hg] Manuel Conner MD Work Phone: [employer] Work Phone: 12-19-2020 19:00-0400 Heart rate 75 /min Manuel Conner MD Work Phone: [employer] Work Phone: 12-19-2020 19:00-0400 Respiratory rate 23 /min Manuel Conner MD Work Phone: [employer] Work Phone: 12-19-2020 19:00-0400 SaO2% (BldA) [Mass fraction] 94 % Manuel Conner MD Work Phone: [employer] Work Phone: 12-18-2020 06:30-0400 Body temperature 98.29 [degF] Manuel Conner MD Work Phone: [employer] Work Phone: Encounters Encounter Date Encounter Type Care Provider Facility Start: 09-28-2022 AUDIT Michael Carballo Work Phone: [id number] DO Work Phone: Start: 07-24-2022 End: 07-24-[address] MICHAEL CARBALLO . Facility: Start: 07-15-2022 End: 07-15-[address] MICHAEL CARBALLO . Facility: Start: 07-13-2022 Patient encounter procedure Michael Carballo Work Phone: [id number] [place] [address] Work Phone: Start: 07-13-2022 Phys/qhp telephone evaluation 11-20 min Michael Carballo Work Phone: [id number] [place] [address] Work Phone: Start: 07-13-2022 ambulatory MD SCOUT ROMO Facility:[facility] Start: 07-13-2022 End: 07-13-[address] MICHAEL CARBALLO . Facility: Start: 07-09-2022 AUDIT Michael Carballo Work Phone: [id number] [facility] [address] Work Phone: Start: 06-08-2022 ambulatory Facility: [facility] Start: 06-05-2022 End: 06-05-[address] MICHAEL CARBALLO . Facility: Start: 06-04-2022 End: 06-04-[address] MICHAEL CARBALLO . Facility: Start: 04-14-2022 End: 04-15-2022 ambulatory DONNA [facility] Start: 04-14-2022 End: 04-14-2022 Subsequent hospital visit by physician Michael Carballo Work Phone: [facility] Start: 10-30-2021 End: 10-31-2021 ambulatory Manfred Wilson Facility:[facility] Start: 10-28-2021 End: 10-28-[address] MICHAEL CARBALLO . Facility: Start: 10-15-2021 Patient encounter procedure Michael Carballo Work Phone: JO-Bkqswitidk-XID [facility] [place] Work Phone: Start: 10-15-2021 ambulatory DO FELICIA ASTORGA Facility:[facility] Start: 08-05-2021 End: 08-06-[address] MICHAEL CARBALLO . Facility: Start: 07-16-2021 Office outpatient vi sit 25 minutes Michael Carballo Work Phone: FB-Pzlkncnslx-YKZ [facility] [place] Work Phone: Start: 07-16-2021 Patient encounter procedure Michael Carballo Work Phone: KV-Baedzklaxy-WMB [facility] [place] Work Phone: Start: 06-27-2021 End: 07-03-2021 Evaluation and management of inpatient [facility] R[facility] [id number] Start: 06-25-2021 End: 06-27-2021 Evaluation and management of inpatient MD Michael Carbalol Work Phone: [facility] [place] [facility] Start: 06-25-2021 Patient encounter procedure Michael Carballo Work Phone: PO-Tvyoiuddpt-NWD [facility] [place] Work Phone: Start: 06-24-2021 End: 06-24-2021 Patient encounter procedure MD Michael Carballo Work Phone: [facility] Start: 05-28-2021 AUDIT Michael Carballo Work Phone: CL-Uwqhyhblvu-BQA [facility] [place] Work Phone: Start: 05-27-2021 End: 05-27-2021 Patient encounter procedure MD Michael Carballo Work Phone: [facility] Start: 01-01-2021 Patient encounter procedure Michael Carballo Work Phone: UI-Mhwgmtrmna-OKO [facility] [place] Work Phone: Start: 01-01-2021 WANG, Provider : Rizwan,Felicia, Status: Pen, Time: 2:20 PM Michael Carballo Work Phone: FC-Pblrcquubd-Abdqpykp SJ 260 DO Work Phone: Start: 12-31-2020 AUDIT Michael Carballo Work Phone: GQ-Wgbenqdjug-Eiuijysi SJ 260 DO Work Phone: Start: 12-17-2020 End: 12-19-2020 Emergency department patient visit Manuel Conner MD Work Phone: [facility] ED Comment on above: Maribel coma scale t otal score 13-15, at hospital admission (Primary Dx); Acute kidney injury (HCC); Heart replaced by transplant (HCC); Confusion Start: 11-21-2020 AUDIT Michael Carballo Work Phone: KR-Fsmfofpzid-EMG [facility] [address] [place] Work Phone: Start: 10-31-2020 AUDIT Michael Carballo Work Phone: [facility] Work Phone: Procedures Date Procedure Procedure [...] heart recipient Heart repla vaibhav by transplant ([facility]) Manuel Conner MD Work Phone: H/O: heart [...] Montse Villanueva, Status: Pen, Time: 2:00 PM WK-Nmghumjtmu-TVF [place] [address] Work Phone: Start: 07-13-2022 WANG, Provider : Scout Romo, Status: Pen, Time: 1:40 PM VIRFUCORI, Provider: Scout Romo, Status: Pen, Time: 1:40 PM AA-Bbcwdfnbgk-HJB [place] [address] Work Phone: Start: 04-01-2022 WANG, Provider : Felicia Astorga, Status: Pen, Time: 1:00 PM WANG, Provider: Felicia Astorga, Status: Pen, Time: 1:00 PM KJ-Bzisleuqat-NPH [facility] [place] Work Phone: Start: 12-19-2021 Creatinine measurement Creatinine [facility] Work Phone: Start: 12-19-2021 Potassium monitoring Potassium monit nyla Hired Phone: Start: 10-20-2021 Influenza vaccination Flu vaccine (# 1) LEONID [facility] Start: 07-16-2021 Patient encounter procedure [facility] Start: 07-03-2021 End: 07-04-2022 Insulin Glargine (Lantus) Injectable Subcutaneous Once ; DOSE = 12 unit(s) SubCutaneous At BedtimeNotes from Pharmacy: [facility] Start: 03-Jul-2021 End: 03-Jul-2022 Ordered: 03-Jul-2021 Magy Galeas Intent [facility] Start: 07-01-2021 End: 07-02-2022 [facility] Comment on above: IF patient HAS a [...] End: 30-Jun-2022 Ordered: 30-Jun-2021 Jihan Storm Intent [facility] Start: 06-27-2021 End: 06-28-2022 Sodium Chloride 0.9% Injectable Flush Peripheral Line ; via Peripheral LineVolume = 10 mL IntraVenous Flush Every 8 Hours and as Needed Start: 27-Jun-2021 End: 27-Jun-2022 Ordered: 26-Jun-2021 Magy Galeas Intent [facility] Start: 06-26-2021 Duplex scan of upper limb arteries US arterial duplex UE RT [facility] Start: 12-17-2020 Annual Wellness Visi t (AWV) Annual Wellness Visit (AWV) [employer] Start: 11-20-2020 Influenza vaccination Flu vaccine (# 1) [employer] Work Phone: Start: 07-16-2020 COVID-19 Vaccine (3 - Pfizer risk 3-dose series) COVID-19 Vaccine (3 - Pfizer risk 3-dose series) [employer] Work Phone: Start: 07-16-2020 COVID-19 Vaccine (3 - Pfizer risk series) COVID-19 Vaccine (3 - Pfizer risk series) [employer] Start: 10-01-2016 Pneumococcal 65+ yrs at Risk Vaccine (2 of 2 - PCV13) Pneumococcal 65+ yrs at Risk Vaccine (2 of 2 - PCV13) Hired Phone: Start: 10-10-1993 Shingles Vaccine (1 of 2) Shingles Vaccine (1 of 2) [employer] Work Phone: Start: 10-10-1962 DTaP/Tdap/Td vaccine (1 - Tdap) DTaP/Tdap/Td vaccine (1 - Tdap) [employer] Start: 10-10-1962 Shingles vaccine (1 of 2) Shingles vaccine (1 of 2) [employer] Start: 10-10-1961 Hepatitis C screening Hepatitis C sc reen [facility] [employer] Start: 1955 Depression Screen [facility] Start: 10-10-1953 Lipid panel [facility] Start: 1943 Hepatitis C screening Hepatitis C sc reen [facility] Work Phone: Calcium [Mass/volume ] in Serum or Plasma [facility] Work Phone: Carbon dioxide, tota l [Moles/volume] in Serum or Plasma [facility] Work Phone: Chloride [Moles/volu me] in Serum or Plasma [facility] Work Phone: Creatinine and Glomerular filtration rate.predicted panel - Serum, Plasma or Blood [facility] Work Phone: Culture, Blood 1 [facility] Work Phone: Culture, Wound Culture, Wound Microbiology Routine 04/14/2022 3:25 PM EST [facility] [employer] [employer] Work Phone: Glucose [Mass/volume ] in Serum or Plasma [facility] Work Phone: Goals of care, counseling/discussion [facility] Measurement of renal function [facility] Work Phone: Potassium [Moles/volume] in Serum or Plasma [facility] Work Phone: Sodium [Moles/volume ] in Serum or Plasma [facility] Work Phone: Tacrolimus [Mass/volume] in Blood [facility] Work Phone: End: 12-18-2020 Tacrolimus Level [facility] Work Phone: Comment on above: One Time for 1 Occur rences starting 12/18/2020 until 12/18/2020 End: 12-19-2020 Tacrolimus Level Tacrolimus Level Lab Routine One Time for 1 Occurrences starting 12/19/2020 until 12/19/2020 [employer] Work Phone: Comment on above: One Time for 1 Occur rences starting 12/19/2020 until 12/19/2020 Tacrolimus [facility] Work Phone: Urea nitrogen [Mass/volume] in Serum or Plasma [facility] Work Phone: Immunizations Immunization Date Immunization Notes Care Provider Haven de leon 03-21-2021 Pfizer-BioNTech COVI D-19 Vacc 30 MCG/0.3ML Intramuscular Suspension Michael Carballo Work Phone: WN-Nszchfbfnm-ZLJ [facility] [address] [place] Work Phone: 06-18-2020 Pfizer-BioNTech COVI D-19 Vacc 30 MCG/0.3ML Intramuscular Suspension Michael Candelario Carballo Work Phone: [facility] Work Phone: 05-27-2020 Pfizer-BioNTech COVI D-19 Vacc 30 MCG/0.3ML Intramuscular Suspension Michael E Carballo Work Phone: [facility] Work Phone: 12-29-2019 Seasonal trivalent influenza vaccine, adjuvanted, preservative free Michael Palomino Carballo Work Phone: [facility] Work Phone: 12-22-2017 Seasonal trivalent influenza vaccine, adjuvanted, preservative free Michael Palomino Carballo Work Phone: [facility] Work Phone: 12-28-2016 Seasonal trivalent influenza vaccine, adjuvanted, preservative free Michael Palomino Carballo Work Phone: [facility] Work Phone: 12-24-2015 influenza, high dose seasonal, preservative-free Michael Palomino Carballo Work Phone: [facility] Work Phone: 10-02-2015 influenza, seasonal, injectable Michael Palomino Carballo Work Phone: [facility] Work Phone: 10-02-2015 pneumococcal polysaccharide vaccine, 23 valent Michael Palomino Carballo Work Phone: [facility] Work Phone: 01-09-2015 influenza, injectabl e, quadrivalent, contains preservative Michael Palomino Carballo Work Phone: [facility] Work Phone: 01-03-2013 influenza, seasonal, injectable Michael Palomino Carballo Work Phone: [facility] Work Phone: 01-07-2009 influenza virus vacc ine, whole virus Michael Christianight Work Phone: [facility] Work Phone: 01-20-2005 influenza virus vacc ine, whole virus Michael Palomino Carballo Work Phone: [facility] Work Phone: Payers Date Payer Category Payer Self-pay [id number] 1961 Medicaid [id number] 1961 Medicare [id number] 1961 Medicare [id number] 1961 Private Health Insurance [id number] 1943 Unknown [id number] 2.16.8 [id number] 1943 Unknown [id number] 2.16.84 [id number] 1943 Unknown [id number] 2.16.84 [id number] 1943 Unknown [id number] 2.16.84 [id number] 1943 Unknown [id number] 2.16.84 [id number] 1943 Unknown [id number] 2.16.84 [id number] 1943 Unknown [id number] 2.16.84 [id number] 1943 Unknown [id number] 2.16.84 [id number] 1943 Unknown [id number] 2.16. [id number] 1943 Unknown [id number] 2.16. [id number] Unknown Unknown [id number] 2.16.8 [id number] Social History Date Type Detail Facility Former smoker Former smoker [facility] [employer] Work Phone: Start: 12-17-2020 Tobacco smoking stat us IDIS Unknown if ever smoked [employer] Work Phone: Start: 1945 Sex Assigned At Not on file M [facility] Work Phone: Exposure to SARS-CoV -2 (event) Unable to assess [employer] Start: 12-13-[address] [facility] (finding[facility] Start: 1945 Sex Assigned At Male F [facility] Start: 06-26-2021 End: 06-26-2021 Tobacco smoking status NHIS Ex-smoker (finding) [facility] End: 03-22-1996 History of tobacco use [facility] Work Phone: Goals Date Patient Goal Desired Activity /State Functional Status Date Assessment Result Facility 06-27-2021 Functional status Patient at Baseline [facility] Work Phone: Functional observable [facility] Mental Status Date Assessment Result Facility 06-30-2021 Cognitive functi ons [id number] [facility] 06-27-2021 Cognitive function Cognitive Sta tus Patient at Baseline [facility] Work Phone: Clinical Notes 07-05-2000 to 07-03-2021 <item><item><item><item><item><item><item><item><item> Note Date & Type Note Facility 07-03-2021 Hospital Discharge instructions Activity:activity with assistance. May shower.Labs 1 (Modify Template):Lab Test(s): Basic Metabolic Panel, CBC, Tacrolimus levelDate To Be Drawn: 07/07/2021all Results To: Dr. Felicia Moore Results To: [phone] Orders:Blood Glucose Monitoring: ACHSAdditional Instructions: Use of [...] Uncontrolled diabetesCall to Schedule in: 2 weeksLocation: [facility] Follow Up Appointment 2:Physician/Dept/Service: Dr. Felicia Astorga / Heart failure and transplantReason for Referral: hospital follow-upLocation: [facility] 1800Comments: Our office will call you to set up an appointment either in person or virtually. [facility] 06-27-2021 Discharge summary Note Date/Time June 27, 2021 10:32am [facility] [address] [place] [address] Discharge Summary Signed Patient: Oliverio Escobedo MR#: [id number] : 1945 Acct:[id number] Age/Sex: 75 / M Adm Date: 2 Loc: Room: [address] [place] [address]: Yoshi Hernandez MD Copies to: MD Justa OlveraN[facility]ERSHELLY Howard Providers Date of Discharge: [...] 1 tab PO BID RF: 0 omega 0-mjt-afc-fish oil [Fish Oil] 1,000 mg (120 mg-180 [...] signed by Yoshi Hernandez MD> 06/27/21 1032 [facility] Work Phone: 1(810) 379-468504-08-2022 Progress note Author Bonilla Ortiz [facility] June 27, 2021 10:27am Note Date/Time June 27, 2021 10:2 7am [facility] [address] [place] [address] Cardiology Progress Note Signed Patient: Oliverio Escobedo MR#: [id number] : 1945 Acct:[id number] Age/Sex: 75 / M Adm Date: 2 Loc: 3T Room: [address] [place] [address] Type : ADM INOo Attending Dr: Yoshi Hernandez MD Copies to: ~ Date of Service: 06/27/2021 Subjective Principal diagnosis: Edema w history of orthotopic heart transplant Interval history: Mr. Escobedo is a 75 year old male with known history of orthotopic heart transplantation in 2000 done at [facility] who was admitted to the inpatient hospitalist service last night after presenting from the [facility] with complaints of increasing swelling in both legs and the right arm for several days. The patient is resting comfortably this morning. He did diurese gently yesterday. He currently has no cardiac complaints. His breathing feels comfortable lying flat at rest. Swelling in both feet and calves is still present. NB: The patient has been accepted by the transplant service at [facility]. At this point we are awaiting bed [...] Agree with transfer to transplant service at [facility] for further management. Plan Thank you very much for this kind consultation and for allowing me to participate in the care of this very pleasant patient. Time spent with patient Time Spent With Patient (min): 20 Documented By: Bonilla Ortiz MD 06/27/21 1024 Signed By: <Electronically signed by Bonilla Ortiz MD> 06/27/21 1027 [facility] Work Phone: 1(621) 495-733604-07-2022 Progress note Author Yoshi Wu [facility] June 26, 2021 6:27pm Note Date/Time June 26, 2021 6:27 pm [facility] [address] [place] [address] Hospitalist Progress Note Signed Patient: Oliverio Escobedo MR#: [id number] : 1945 Acct:[id number] Age/Sex: 75 / M Adm Date: 2 Loc: Room: [address] [place] [address] Type : ADM INOo Attending Dr: Yoshi [...] Oil 1,000 mg 06/26/21 09:00 06/26/21 09:01 Wasta-3/Fish Oil 1,000 Mg Capsule PO 06/26/22 08:59 [...] <Electronically signed by Yoshi Hernandez MD> 06/26/21 401 [facility] Work Phone: 1(297) 295-305504-07-2022 Consult note Author Bonilla Ortiz [facility] June 26, 2021 2:26pm Note Date/Time June 26, 2021 2:23 pm [facility] [address] [place] [address] Cardiology Consult Note Signed Patient: Oliverio Escobedo MR#: [id number] : 1945 Acct:[id number] Age/Sex: 75 / M Adm Date: 2 Loc: Room: [address] [place] [address] Type : ADM INOo Attending Dr: Yoshi Hernandez MD Copies to: MD Manfred Olvera([facility]) DO Bonilla Wilson MD~ Cardiology HPI History of Present Illness Consult Date: 06/26/21 Reason for Consult: Bilateral lower extremity swelling Remote history of orthotopic heart transplantation HPI: Mr. Escobedo is a 75 year old male with known history of orthotopic heart transplantation in 2000 done at [facility] who was admitted to the inpatient hospitalist service last night after presenting from the [facility] with complaints of increasing swelling in both [...] the results were sent to his transplant [facility] [place]. She doesnot know the results. On my evaluation the patient was undergoing bedside transthoracic echocardiography. Preliminary interpretation of the study shows normal resting left ventricular regional wall motion and systolic function. Ejection fraction appears greater than 55%. There is no notable pericardial or pleural effusion. There is no notable/significant valvular heart disease noted. By report the patient's transplant service at [facility] has been contacted and is requested the [...] PO BID 02/02/17 [History Confirmed 06/25/21] omega 3-nvz-bug-fish oil 1,000 mg (120 mg-180 mg) capsule [...] x10E3/uL Lymph # (Auto) 1.0 (1.00-4.8) x10E3/uL [place] # (Auto) 0.5 (0.0-0.8) x10E3/uL Eos # [...] Agree with transfer to transplant service at [facility] for further management. Code(s): Z94.1 - Heart transplant status Plan Thank you very much for this kind consultation and for allowing me to participate in the care of this very pleasant patient. Documented By: Bonilla Ortiz MD 06/26/21 1415 Signed By: <Electronically signed by Bonilla Ortiz MD> 06/26/21 1426 [facility] Work Phone: 1(738) 701-571404-07-2022 History and physical note Author Omid Myrick [facility] June 26, 2021 7:44am Note Date/Time June 26, 2021 12:1 6am [facility] [address] [place] [address] Hospitalist H&P Signed Patient: Oliverio Escobedo MR#: [id number] : 1945 Acct:[id number] Age/Sex: 75 / M Adm Date: 2 Loc: 3T Room: [address] [place] [address] Type : ADM INOo Attending Dr: Yoshi Hernandez MD Copies to: MD Manfred Olvera([facility]) DO Audra Wilson APRN Marwan [...] [facility] but were unable. Patient is hard of [...] PO BID 02/02/17 [History Confirmed 06/25/21] omega 8-cjo-foq-fish oil 1,000 mg (120 mg-180 mg) capsule [...] Lymph % (Auto) 12.9 % (.) 06/25/21: [place] % (Auto) 7.3 % (.) 06/25/21: Eos % (Auto) 4.6 % (.) 06/25/21: Baso % (Auto) 0.6 % (.) 06/25/21: Neut # (Auto) 5.6 x10E3/uL (1.8-7.7) 06/25/21: Lymph # (Auto) 1.0 x10E3/uL (1.00-4.8) 06/25/21: [place] # (Auto) 0.5 x10E3/uL (0.0-0.8) 06/25/21: Eos [...] MD Documented By: Audra Quinteros APRN 06/25/21 1179 Signed By: <Electronically signed by GABBIE Quinteros> 06/26/21 0057 <Electronically signed by Omid Myrick MD> 06/26/21 2844 [facility] Work Phone: 1(163) 562-379009-30-2021 Evaluation note* Diagnosis Maribel coma scale total score 13-15, at hospital admission- Primary Acute kidney injury (HCC) Acute kidney failure, unspecified Heart replaced by transplant (HCC) Heart replaced by transplant Confusion Unspecified psychosis documented in this encounter [facility] Work Phone: 1(271) 363-805909-30-2021 History of Present illness Narrative* 74 yo [...] trazodone, trazodone and aripirazole. Discharged back to [facility] with 2x/week home trips. * Immunosuppression: MMF 250 mg BID, tacrolimus 1.5 mg BID (FK 5.4 on 12/24/20, goal 5-8) * Rejection Hx/DSAs: None documented * Last echo: 12/20/20 MZ-Klujaqrtxy-FDH [facility] [address] [place] Work Phone: 1(254) 314-693809-28-2021 History of Present illness Narrative* Liliya Baker RN - 12/17/2020 10:31 AM EDT Spoke with nurse from [facility] at this time. They will fax lab work to us from [facility]. documented in this [facility] Work Phone: 1(232) 134-685604-16-2001 History of Present illness Narrative* Mr. Escobedo [...] September 2021. He continues to live in custodial. He has started Zoloft for depression. 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 Needs assistance with transfers. He has not had any new doctors appointmetns. * Immunosuppression: MMF 250 mg BID, tacrolimus 1 mg BID (FK 11.0 on 10/10/21, goal 5-8) * Rejection Hx/DSAs: None documented * Last echo: 12/20/20 IX-Hpqfeeiasw-UFJ [facility] Work Phone: Chief complaint Narrative [...] 04:20 PM , for a telehealth visit. OZ-Prsbwbnyct-ZUG [facility] [address] [place] Work Phone: Evaluation noteNo assessment information available [facility] Work Phone: Evaluation note* Diagnosis Onset Date Resolution Status Acute kidney injury acute Bilateral edema of lower extremity acute Shortness of breath acute [facility] Work Phone: Evaluation note* Diagnosis Onset Date Resolution Status Acute kidney injury acute Bilateral edema of lower extremity acute History of heart transplant acute Shortness of breath acute [facility] Work Phone: Evaluation note* Psychological: Appropriate [...] distress, alert and cooperative, hard of hearing [facility]* Mr. Escobedo is [...] trazodone, trazodone and aripirazole. Discharged back to [facility] with 2x/week home trips. * Immunosuppression: MMF 250 mg BID, tacrolimus 1.5 mg BID (FK 5.4 on 12/24/20, goal 5-8) * Rejection Hx/DSAs: None documented * Last echo: 12/20/20 RX-Hoyqfparun-FGV [employer] [address] [place] Work Phone: History of Present [...] B/L LE edema. Spoke with RN at [facility]; states LE edema has been ongoing for several weeks, with a rash . * Labs drawn 06/24/21; BNP 224 * Immunosuppression: MMF 250 mg BID, tacrolimus 1.5 mg BID (FK 5.4 on 12/24/20, goal 5-8) - FK pendingfrom 06/24/21 from SNF * Rejection Hx/DSAs: None documented * Last echo: 12/20/20 KV-Eiwnperzah-STX [employer] [address] [place] Work Phone: History of Present [...] Hx/DSAs: None documented * Last echo: 12/20/20 IP-Nyyzmjuvbt-RYM [facility] [address] [place] Work Phone: History [...] Hx/DSAs: None documented * Last echo: 12/20/20 UG-Dzsbncwnxm-XZG [facility] [address] [place] Work Phone: History [...] Hx/DSAs: None documented * Last echo: 12/20/20 PE-Psqswhiibt-RSX [facility] [address] [place] Work Phone: Reason for referral (narrative)* Reason for Referral: HF, DAVID, scabies [facility] Family History No Family History Records FoundUnknown [...] content) Reason Comments Altered Mental Status onset [employer]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 [employer]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; staff state pt would not respond and stared off into space 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 from [place] rn state BP 70s/ANGELICA [...] is suspension with MINIMUM of SIZE 8 LITHUANIAN 1500 (Given - Provider: Sola Dee RN)[id number] [...] Active Yoshi Hernandez MD Attending Provider Active Surgical Specialist Relationship Specialty Start Date End Date Michael Carballo [address] [place] [address] PCP - General Specialist 12/17/20 Goals (unrecognized [...] section and content) DATE CREATED AUTHOR 07/14/2021 [facility] [place] DATE CREATED AUTHOR AUTHOR'S ORGANIZ ATION 04/18/2022 [facility] DATE CREATED AUTHOR AUTHOR'S ORGANIZ ATION 07/17/2022 [employer] DATE CREATED AUTHOR AUTHOR'S ORGANIZ ATION 07/31/2022 [facility] DATE CREATED AUTHOR AUTHOR'S ORGANIZ ATION 09/07/2022 [facility] DATE CREATED AUTHOR AUTHOR'S ORGANIZ ATION 09/14/2022 [facility] [facility] DATE CREATED AUTHOR AUTHOR'S ORGANIZ ATION 11/21/2022 [facility] FOR RECORDS PERTAINING TO PATIENTS WHO [...] BE BASED ON THE PRIMARY CLINICAL RECORDS. [employer] provides no warranty or guarantee of the accuracy or completeness of information in this document.
[2023-04-15 11:52] LABS: Bilirubin Urine NEGATIVE (NEGATIVE); Blood Urine NEGATIVE (NEGATIVE); Clarity Urine CLEAR (CLEAR); Color Urine YELLOW (YELLOW); Glucose Urine UA NEGATIVE (NEGATIVE); Ketones Urine NEGATIVE (NEGATIVE); Leukocyte Esterase Urine NEGATIVE (NEGATIVE); Nitrite Urine NEGATIVE (NEGATIVE); Protein Urine >=300 mg/dL (NEG/TRACE); Specific Gravity Urine 1.025 (1.005-1.025); Urobilinogen Urine 0.2 EU/dL (0.2-1.0)
[2023-04-15 11:57] LABS: Urine Microscopic Indicated YES
[2023-04-15 12:10] LABS: Bacteria Urine SMALL #/HPF (NONE SEEN); Crystals Seen? Seen #/HPF (None Seen); Mucus Urine NONE SEEN (NONE SEEN); RBC Urine NONE SEEN #/HPF (0-2); Squamous Epithelial Cell Urine RARE #/LPF (NONE/RARE); WBC Urine 0-2 #/HPF (NONE SEEN)
[2023-04-15 12:11] LABS: Calcium Oxalate Crystals Urine FEW; Cast Seen? SEEN #/LPF (NONE SEEN); Hyaline Casts Urine RARE; Urine Culture Indicated YES
--- OUTSIDE RECORDS SUMMARY | 2023-04-16 06:35 | XMS_ITS | CCD ---
Author Name Unknown Address [address] [place] [address] Organization [facility] Care Team Providers Care Optical Dispenser Name Role Phone Michael Carballo Unavailable Unavailable Unavailable Michael Carballo Primary Care Provider MD Michael Carballo Primary Care Provider JIL Davies Attending Provider DO Manfred Wilson Primary Care Provider [facility] DO Andrew Hernández Emergency Provider MD Omid Myrick Admit Provider MD Omid Myrick Attending Provider [phone] Al MD Yoshi Campoverde Attending Provider [phone] Michael Carballo Unavailable Dionjarret, Pascualaashish Unavailable Palliative Care Unavailable Unavailable Gene Shook Unavailable Felicia Astorga Unavailable Michael Carballo Primary Care Provider [phone] DONNA ARELLANO Referring Unavailable MICHAEL CARBALLO Primary [...] sources) Allopurinol; Translations: [allopurinol] Drug Allergy 10-16-2018 [facility] (8 sources) ceFAZolin; Translations: [Cefazolin] Drug Allergy 06-25-2021 Rash, Unknown [facility] Comment on above: extensive fiery red and warm flat rash (1 source) Allopurinol Drug Allergy [facility] (1 source) ceFAZolin Drug Allergy [facility] (1 source) Allopurinol Drug Allergy 06-25-2021 [facility] Medications Current Medications Medication Drug Class(es) [...] Start: 11-03-2018 take 1 capsule by mo [facility] once daily in the evening dilTIAZem HCl ER Coated Beads 300 MG Oral Capsule Extended Release 24 Hour take 1 capsule every evening Quantity: 0 Refills: 0 Ordered: 04-Jul-2021 Felicia Astorga DO Start : 03-Nov-2018 Active Start: 11-03-2018 take 1 capsule by [facility] once daily dilTIAZem HCl ER Coated Beads 360 MG Oral Capsule Extended Release 24 Hour TAKE 1 CAPSULE Daily Quantity: 30 Refills: 11 Ordered: 03-Nov-2018 Felicia Astorga DO Start : 03-Nov-2018 Active Start: 11-03-2018 take 1 capsule by [facility] once daily dilTIAZem HCl ER Coated Beads 240 MG Oral Capsule Extended Release 24 Hour TAKE 1 CAPSULE Daily Quantity: 90 Refills: 3 Ordered: 24-Dec-2020 Felicia Astorga DO Start : 03-Nov-2018 Active Start: 10-31-2018 take 1 capsule by [facility] every twenty-four hours dilTIAZem 240 mg/24 [...] mg Start: 10-31-2018 take 1 tablet by [facility] three times daily hydrALAZINE HCl - [...] mg Start: 11-02-2018 take 1 capsule by [facility] every twelve hours Mycophenolate Mofetil 250 [...] Tamiko Dsouza Status: Discontinued Generic Substitution Allowed [place] 1-Jzw-Tcg-Fish Oil (Fish Oil) 1,000 mg (120 mg-180 mg) Capsule (4 sources) Start: 08-05-2017 take 1 tablet by mouth twice daily [place] 0-Kbu-Cif-Fish Oil (Fish Oil) 1,000 mg (120 mg-180 mg) Capsule Active 1 TAB PO Twice daily August 05, 2017 11:13am Start: 08-05-2017 take 1 tablet by anila th once daily [place] 6-Hlk-Xjp-Fish Oil (Fish Oil) 1,000 mg (120 mg-180 mg) Capsule Active 1 TAB PO Daily August 05, 2017 11:13am Start: 08-05-2017 take 1 tablet by anila th twice daily [place] 8-Qar-Qmb-Fish Oil (Fish Oil) 1,000 mg (120 mg-180 [...] tube 2 times a day only on Tjyzsx-Qvowluija-Cgjxhx Quantity: 24 Refills: 0 Ordered: 21-Jan-2016 Warren [...] possible liver damage. take 2 tablets by [facility] every six hours as needed for [...] Active Start: 10-15-2021 take 2 tablets by [facility] once daily busPIRone HCl - 10 MG Oral Tablet TAKE 2 TABLET Daily Quantity: 0 Refills: 0 Ordered: 15-Oct-2021 DO Start : 15-Oct-2021 Active take 1 tablet by [facility] twice daily busPIRone (BUSPAR) 15 MG [...] Allowed Start: 10-31-2018 take 1 capsule by [facility] every six hours as needed diphenhydrAMINE [...] 1 capsule by mouth twice da padmaja [place]-3 Fatty Acids (FISH OIL) 1000 MG CAPS [...] if Blood Glucose is between 251 - 20159 unit(s) if Blood Glucose is between 301 - 98981 unit(s) if Blood Glucose is between 351 [...] if Blood glucose is between 301 - 35630 unit(s) if Blood glucose is between 351 [...] 02-Jul-2021 Generic Substitution Allowed polyethylene glycol 3350 90982 mg powder for oral solution (7 sources) Osmotic Laxative Start: 10-15-2021 MiraLax Mix-I n Ruby 17 GM Oral Packet MIX 1 PACKET [...] Allowed Start: 07-02-2021 take 1 capsule by [facility] every twelve hours Tacrolimus 1 MG [...] Coma; stupor; and brain damage (1 source) [place] coma scale finding; Translations: [[place] coma scale score 13-15, at hospital admission] [...] Lis t Migration; 2012-10-14; Moved to [facility] Feb 17 2013 9:03PM; Fever of unknown [...] right upper extremity 06-30-2021 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 (1 source) care home current use of insulin 07-02-2021 Past or Other Problems Problem Classification Problem Date Documented Da te Episodic/Chronic Other gastrointestinal disorders (1 source) Dysphagia, unspecified; Translations: [DYSPHAGIA UNSPECIFIED] Onset: 08-08-2021 Episodic 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 (1 source) SWELLING UPPER/LOW EXTREMITIES 06-27-2021 Comment on above: SWELLING UPPER/LOW E XTREMITIES Results Test Name Value Interpretation Reference Range Facility [facility] 09-14-2022 Lab Reports [id number]:127 Normal [facility] VIT D 25-OH [facility] 2022 Vitamin D, 25-Hydroxy 29.5 ng/mL Critically low 30.0-100.0 [facility] Comment on above: Result Comment: Jennifer min D deficiency has been defined by the [place] of [employer] and an Endocrine Society practice guideline as a level of serum 25-OH vitamin D less than 20 ng/mL (1,2). The Endocrine Society went on to further define vitamin D insufficiency as a level between 21 and 29 ng/mL (2). 1. IOM ([place] of [employer]). 2010. Dietary reference intakes for calcium and D. [place]: The National Academies Press. 2. Ely MF, Brad [place], Kristy ORTEGA, et al. Evaluation, treatment, and prevention of vitamin D deficiency: an Endocrine Society clinical practice guideline. JCEM. 2010; 96(7):1911-30. Performed By: #### V ITADLC #### [facility] [address] [place] [address] Dr. Ronnie Pennington CBC AUTO DIFFon 07-24-2022 BASO # 0.0 103/ul Normal 0.0-0.1 [facility] Comment on above: Performed By: #### C BC #### [facility] [address] [address] [address] Ronnie Pennington Basophils/100 WBC (Bld) 0.6 % Normal 0.2-2.0 [facility] Comment on above: Performed By: #### C BC #### [facility] [address] [address] [address] Ronnie Pennington EO # 0.1 103/ul Normal 0.0-0.7 [facility] Comment on above: Performed By: #### C BC #### [facility] [address] [address] [address] Ronnie Pennington Eosinophils/100 WBC (Bld) 2.0 % Normal 0.9-7.0 [facility] Comment on above: Performed By: #### C BC #### [facility] [address] [place] [address] Dr. Ronnie Pennington Erythrocyte distribution width (RBC) [Ratio] 13.2 % Normal 11.0-15.0 [facility] Comment on above: Performed By: #### C BC #### [facility] [address] [place] [address] Dr. Ronnie Pennington Hematocrit (Bld) [Volume fraction] 33.3 % Critically low 42.0-54.0 [facility] Comment on above: Performed By: #### C BC #### [facility] [address] [place] [address] Dr. Ronnie Pennington Hemoglobin (Bld) [Mass/Vol] 10.0 g/dL Critically low 14.0-18.0 [facility] Comment on above: Performed By: #### C BC #### [facility] [address] [place] [address] Dr. Ronnie Pennington IG # 0.04 10e3/ul Critically high 0.00-0.03 [facility] Comment on above: Performed By: #### C BC #### [facility] [address] [place] [address] Dr. Ronnie Pennington IG % 0.6 % Critically high 0.0-0.5 [facility] Comment on above: Performed By: #### C BC #### [facility] [address] [place] [address] Dr. Ronnie Pennington LYMPH # 1.2 103/ul Normal 1.2-3.8 [facility] Comment on above: Performed By: #### C BC #### [facility] [address] [place] [address] Dr. Ronnie Pennington Lymphocytes/100 WBC (Bld) 17.9 % Critically low 20.5-60.0 [facility] Comment on above: Performed By: #### C BC #### [facility] [address] [place] [address] Dr. Ronnie Pennington MANUAL DIFF REQ NO Normal [facility] Comment on above: Performed By: #### C BC #### [facility] [address] [place] [address] Dr. Ronnie Pennington MCH (RBC) [Entitic mass] 28.2 pg Normal 25.9-34.0 [facility] Comment on above: Performed By: #### C BC #### [facility] [address] [place] [address] Dr. Ronnie Pennington MCHC (RBC) [Mass/Vol] 30.0 g/dL Normal 29.9-35.2 [facility] Comment on above: Performed By: #### C BC #### [facility] [address] [place] [address] Dr. Ronnie Pennington MCV (RBC) [Entitic vol] 94.1 fL Critically high 80.0-94 .0 [facility] Comment on above: Performed By: #### C BC #### [facility] [address] [place] [address] Dr. Ronnie Pennington MONO # 0.4 103/ul Normal 0.3-0.8 [facility] Comment on above: Performed By: #### C BC #### [facility] [address] [place] [address] Dr. Ronnie Pennington Monocytes/100 WBC (Bld) 6.5 % Normal 1.7-12.0 [facility] Comment on above: Performed By: #### C BC #### [facility] [address] [address] [address] Ronnie Pennington NEUT # 4.8 103/ul Normal 1.4-6.5 [facility] Comment on above: Performed By: #### C BC #### [facility] [address] [place] [address] Dr. Ronnie Pennington Neutrophils/100 WBC (Bld) 72.4 % Normal 43.0-75.0 [facility] Comment on above: Performed By: #### C BC #### [facility] [address] [place] [address] Dr. Ronnie Pennington Platelet mean volume (Bld) [Entitic vol] 11.7 fL Normal 9.5-13.5 [facility] Comment on above: Performed By: #### C BC #### [facility] [address] [place] [address] Dr. Ronnie Pennington PLT 137 103/ul Critically low 150-450 [facility] Comment on above: Performed By: #### C BC #### [facility] [address] [place] [address] Dr. Ronnie Pennington RBC 3.54 106/ul Critically low 4.70-6.10 [facility] Comment on above: Performed By: #### C BC #### [facility] [address] [place] [address] Dr. Ronnie Pennington WBC 6.6 103/ul Normal 4.0-11.0 [facility] Comment on above: Performed By: #### C BC #### [facility] [address] [place] [address] Dr. Ronnie Pennington GLYCOHEMOGLOBIN A1Con 2022 ADA RECOMMENDATION SEE BELOW Normal [facility] Comment on above: Result Comment: ADA RECOMMENDED LIMIT 4.0 - 6.0 ADA THERAPEUTIC TARGET < 7.0 ACTION SUGGESTED > 7.0 Performed By: #### A 1C #### [facility] [address] [place] [address] Dr. Ronnie Pennington Glucose [Mass/Vol] 171 mg/dL Normal [facility] Comment on above: Performed By: #### A 1C #### [facility] [address] [address] [address] Ronnie Pennington HbA1c (Bld) [Mass fraction] 7.6 % Critically high 4.5-6.2 [facility] Comment on above: Performed By: #### A 1C #### [facility] [address] [address] [address] Ronnie Pennington MAGNESIUMon 07-24-2022 Magnesium [Mass/Vol] 2.3 mg/dL Normal 1.8-2.4 [facility] Comment on above: Performed By: #### M Mere, TSH, CMP ####[facility] [address] [address]Dr. Ronnie Pennington PROF 14(COMP METB)on 023 Albumin [Mass/Vol] 2.8 g/dL Critically low 3.4-5.0 [facility] Comment on above: Performed By: #### Joaquin Severino TSH, CMP ####[facility] [address] [address]DrFreddy Pennington Albumin/Globulin [Mass ratio] 0.7 {ratio} Normal [facility] Comment on above: Performed By: #### Joaquin Severino TSH, CMP ####[facility] [address] [address]DrFreddy Pennington ALP [Catalytic activity/Vol] 69 U/L Normal 46-116 [facility] Comment on above: Performed By: #### M Mere TSH, CMP ####[facility] [address] [address]DrFreddy Pennington ALT [Catalytic activity/Vol] 8 U/L Critically low 16-63 [facility] Comment on above: Performed By: #### Joaquin Severino TSH, CMP ####[facility] [address] [address]DrFreddy Pennington Anion gap [Moles/Vol] 9.9 mmol/L Normal [facility] Comment on above: Performed By: #### M G TSH, CMP ####[facility] [address] [address]DrFreddy Pennington AST [Catalytic activity/Vol] 9 U/L Critically low 15-37 [facility] Comment on above: Performed By: #### M Mere TSH, CMP ####[facility] [address] [place], [place] [address]Dr. Ronnie Pennington Bilirubin [Mass/Vol] 0.2 mg/dL Normal 0.2-1.0 [facility] Comment on above: Performed By: #### Joaquin Severino TSH, CMP ####[facility] [address] [place], [place] [address]Dr. Ronnie Pennington Calcium [Mass/Vol] 8.9 mg/dL Normal 8.5-10.1 [facility] Comment on above: Performed By: #### Joaquin Severino TSH, CMP ####[facility] [address] [place], [place] [address]Dr. Ronnie Pennington Chloride [Moles/Vol] 104 mmol/L Normal 98-107 [facility] Comment on above: Performed By: #### Joaquin Severino TSH, CMP ####[facility] [address] [place], [place] [address]Dr. Ronnie Pennington CO2 [Moles/Vol] 28.4 mmol/L Normal 21.0-32.0 [facility] Comment on above: Performed By: #### Joaquin Severino TSH, CMP ####[facility] [address] [place], [place] [address]Dr. Ronnie Pennington Creatinine [Mass/Vol] 2.09 mg/dL Critically high 0.70-1.30 [facility] Comment on above: Performed By: #### Joaquin Severino, TSH, CMP ####[facility] [address] [place], [place] [address]Dr. Salomelenny Pennington EGFR-AF TURKMEN 37 mL/min/1.73m2 Critically low >=60 [facility] Comment on above: Performed By: #### Joaquin Severino, TSH, CMP ####[facility] [address] [place], [place] [address]Dr. Ronnie Pennington EGFR-NON AF TURKMEN 31 mL/min/1.73m2 Critically low >=60 [facility] Comment on above: Performed By: #### M G, TSH, CMP ####[facility] [address] [address]Dr. Ronnie Pennington Globulin (S) [Mass/Vol] 3.9 g/dL Normal [facility] Comment on above: Performed By: #### M G, TSH, CMP ####[facility] [address] [address]Dr. Ronnie Pennington Glucose [Mass/Vol] 165 mg/dL Critically high 74-106 [facility] Comment on above: Performed By: #### M G, TSH, CMP ####[facility] [address] [place], [place] [address]Dr. Ronnie Pennington Potassium [Moles/Vol] 4.3 mmol/L Normal 3.5-5.1 [facility] Comment on above: Performed By: #### M G, TSH, CMP ####[facility] [address] [place], [place] [address]Dr. Ronnie Pennington Protein [Mass/Vol] 6.7 g/dL Normal 6.4-8.2 [facility] Comment on above: Performed By: #### M G, TSH, CMP ####[facility] [address] [place], [place] [address]Dr. Ronnie Pennington Sodium [Moles/Vol] 138 mmol/L Normal 136-145 [facility] Comment on above: Performed By: #### M G, TSH, CMP ####[facility] [address] [place], [place] [address]Dr. Ronnie Pennington Urea nitrogen [Mass/Vol] 33.0 mg/dL Critically high 7.0-18.0 [facility] Comment on above: Performed By: #### M G, TSH, CMP ####[facility] [address] [place], [place] [address]Dr. Ronnie Pennington Urea nitrogen/Creatinine [Mass ratio] 15.8 mg/mg Normal [facility] Comment on above: Performed By: #### M G, TSH, CMP ####[facility] [address] [place], [place] [address]Dr. Ronnie Pennington TSHon 07-24-2022 TSH 2.763 uIU/mL Normal 0.358-3.74 0 [facility] Comment on above: Performed By: #### M G, TSH, CMP ####[facility] [address] [address]Dr. Ronnie Pennington FK506 (TACROLIMUS) WHOLE BLO ODon 07-15-2022 Tacrolimus (FK506), Blood 9.4 ng/mL Normal 2.0-20.0 [facility] Comment on above: Result Comment: Trou gh (immediately following transplant) 15.0 . Trough (steady state, 2 weeks or more after transplant): 3.0 - 8.0 . Performed by LC-MS/MS technology. Performed By: #### F K506T #### [facility] [address] [place] [address] Dr. Ronnie Pennington CBC AUTO DIFFon 07-13-2022 BASO # 0.0 103/ul Normal 0.0-0.1 [facility] Comment on above: Performed By: #### C BC #### [facility] [address] [place] [address] Dr. Ronnie Pennington Basophils/100 WBC (Bld) 0.3 % Normal 0.2-2.0 [facility] Comment on above: Performed By: #### C BC #### [facility] [address] [place] [address] Dr. Ronnie Pennington EO # 0.2 103/ul Normal 0.0-0.7 [facility] Comment on above: Performed By: #### C BC #### [facility] [address] [place] [address] Dr. Ronnie Pennington Eosinophils/100 WBC (Bld) 2.5 % Normal 0.9-7.0 [facility] Comment on above: Performed By: #### C BC #### [facility] [address] [place] [address] Dr. Ronnie Pennington Erythrocyte distribution width (RBC) [Ratio] 13.1 % Normal 11.0-15.0 [facility] Comment on above: Performed By: #### C BC #### [facility] [address] [place] [address] Dr. Ronnie Pennington Hematocrit (Bld) [Volume fraction] 33.4 % Critically low 42.0-54.0 [facility] Comment on above: Performed By: #### C BC #### [facility] [address] [place] [address] Dr. Ronnie Pennington Hemoglobin (Bld) [Mass/Vol] 10.4 g/dL Critically low 14.0-18.0 [facility] Comment on above: Performed By: #### C BC #### [facility] [address] [place] [address] Dr. Ronnie Pennington IG # 0.04 10e3/ul Critically high 0.00-0.03 [facility] Comment on above: Performed By: #### C BC #### [facility] [address] [place] [address] Dr. Ronnie Pennington IG % 0.6 % Critically high 0.0-0.5 [facility] Comment on above: Performed By: #### C BC #### [facility] [address] [place] [address] Dr. Ronnie Pennington LYMPH # 1.2 103/ul Normal 1.2-3.8 [facility] Comment on above: Performed By: #### C BC #### [facility] [address] [place] [address] Dr. Ronnie Pennington Lymphocytes/100 WBC (Bld) 16.8 % Critically low 20.5-60.0 [facility] Comment on above: Performed By: #### C BC #### [facility] [address] [place] [address] Dr. Ronnie Pennington MANUAL DIFF REQ NO Normal [facility] Comment on above: Performed By: #### C BC #### [facility] [address] [place] [address] Dr. Ronnie Pennington MCH (RBC) [Entitic mass] 28.5 pg Normal 25.9-34.0 [facility] Comment on above: Performed By: #### C BC #### [facility] [address] [place] [address] Dr. Ronnie Pennington MCHC (RBC) [Mass/Vol] 31.1 g/dL Normal 29.9-35.2 [facility] Comment on above: Performed By: #### C BC #### [facility] [address] [place] [address] Dr. Ronnie Pennington MCV (RBC) [Entitic vol] 91.5 fL Normal 80.0-94.0 [facility] Comment on above: Performed By: #### C BC #### [facility] [address] [place] [address] Dr. Ronnie Pennington MONO # 0.5 103/ul Normal 0.3-0.8 [facility] Comment on above: Performed By: #### C BC #### [facility] [address] [place] [address] Dr. Ronnie Pennington Monocytes/100 WBC (Bld) 7.5 % Normal 1.7-12.0 [facility] Comment on above: Performed By: #### C BC #### [facility] [address] [place] [address] Dr. Ronnie Pennington NEUT # 5.0 103/ul Normal 1.4-6.5 [facility] Comment on above: Performed By: #### C BC #### [facility] [address] [place] [address] Dr. Ronnie Pennington Neutrophils/100 WBC (Bld) 72.3 % Normal 43.0-75.0 [facility] Comment on above: Performed By: #### C BC #### [facility] [address] [place] [address] Dr. Ronnie Pennington Platelet mean volume (Bld) [Entitic vol] 11.8 fL Normal 9.5-13.5 [facility] Comment on above: Performed By: #### C BC #### [facility] [address] [place] [address] Dr. Ronnie Pennington PLT 126 103/ul Critically low 150-450 [facility] Comment on above: Performed By: #### C BC #### [facility] [address] [place] [address] Dr. Ronnie Pennington RBC 3.65 106/ul Critically low 4.70-6.10 [facility] Comment on above: Performed By: #### C BC #### [facility] [address] [address] [address] Ronnie Pennington WBC 6.9 103/ul Normal 4.0-11.0 [facility] Comment on above: Performed By: #### C BC #### [facility] [address] [address] [address] Ronnie Pennington MAGNESIUMon 07-13-2022 Magnesium [Mass/Vol] 2.1 mg/dL Normal 1.8-2.4 [facility] Comment on above: Performed By: #### C MP, MG #### [facility] [address] [place] [address] Dr. Ronnie Pennington Office Visit (Cardiology)on 07-13-2022 Follow-up visit Patient Instructions -Please bring a list of your medications to every appointment. -We will schedule you a follow up appointment in # months. We will call you with this date. -If you have any questions, please do not hesitate to contact our office at [phone]. For after hours issues, please call [phone]. Chief Complaint OLIVERIO ESCOBEDO is being seen [...] September 2021. [place] He has started Zoloft for depression. He [...] TabletTake 1 tablet twice daily MiraLax Mix-In Ruby 17 GM Oral PacketMIX 1 PACKET in [...] (more content not included)... Normal [facility] PROF 14(COMP METB)on 023 Albumin [Mass/Vol] 2.9 g/dL Critically low 3.4-5.0 [facility] Comment on above: Performed By: #### C MP, MG #### [facility] [address] [place] [address] Dr. Ronnie Pennington Albumin/Globulin [Mass ratio] 0.7 {ratio} Normal [facility] Comment on above: Performed By: #### C MP, MG #### [facility] [address] [address] [address] Ronnie Pennington ALP [Catalytic activity/Vol] 71 U/L Normal 46-116 [facility] Comment on above: Performed By: #### C MP, MG #### [facility] [address] [place] [address] Dr. Ronnie Pennington ALT [Catalytic activity/Vol] 12 U/L Critically low 16-63 [facility] Comment on above: Performed By: #### C MP, MG #### [facility] [address] [address] [address] Ronnie Pennington Anion gap [Moles/Vol] 15.1 mmol/L Normal [facility] Comment on above: Performed By: #### C MP, MG #### [facility] [address] [place] [address] Dr. Ronnie Pennington AST [Catalytic activity/Vol] 11 U/L Critically low 15-37 [facility] Comment on above: Performed By: #### C MP, MG #### [facility] [address] [place] [address] Dr. Ronnie Pennington Bilirubin [Mass/Vol] 0.2 mg/dL Normal 0.2-1.0 [facility] Comment on above: Performed By: #### C MP, MG #### [facility] [address] [place] [address] Dr. Ronnie Pennington Calcium [Mass/Vol] 9.2 mg/dL Normal 8.5-10.1 [facility] Comment on above: Performed By: #### C MP, MG #### [facility] [address] [place] [address] Dr. Ronnie Pennington Chloride [Moles/Vol] 105 mmol/L Normal 98-107 [facility] Comment on above: Performed By: #### C MP, MG #### [facility] [address] [place] [address] Dr. Ronnie Pennington CO2 [Moles/Vol] 28.1 mmol/L Normal 21.0-32.0 [facility] Comment on above: Performed By: #### C MP, MG #### [facility] [address] [place] [address] Dr. Ronnie Pennington Creatinine [Mass/Vol] 2.14 mg/dL Critically high 0.70-1.30 [facility] Comment on above: Performed By: #### C MP, MG #### [facility] [address] [place] [address] Dr. Ronnie Pennington EGFR-AF TURKMEN 36 mL/min/1.73m2 Critically low >=60 [facility] Comment on above: Performed By: #### C MP, MG #### [facility] [address] [place] [address] Dr. Ronnie Pennington EGFR-NON AF TURKMEN 30 mL/min/1.73m2 Critically low >=60 [facility] Comment on above: Performed By: #### C MP, MG #### [facility] [address] [place] [address] Dr. Ronnie Pennington Globulin (S) [Mass/Vol] 4.0 g/dL Normal [facility] Comment on above: Performed By: #### C MP, MG #### [facility] [address] [place] [address] Dr. Ronnie Pennington Glucose [Mass/Vol] 150 mg/dL Critically high 74-106 [facility] Comment on above: Performed By: #### C MP, MG #### [facility] [address] [place] [address] Dr. Ronnie Pennington Potassium [Moles/Vol] 4.2 mmol/L Normal 3.5-5.1 [facility] Comment on above: Performed By: #### C MP, MG #### [facility] [address] [address] [address] Ronnie Pennington Protein [Mass/Vol] 6.9 g/dL Normal 6.4-8.2 [facility] Comment on above: Performed By: #### C MP, MG #### [facility] [address] [address] [address] Ronnie Pennington Sodium [Moles/Vol] 144 mmol/L Normal 136-145 [facility] Comment on above: Performed By: #### C MP, MG #### [facility] [address] [address] [address] Ronnie Pennington Urea nitrogen [Mass/Vol] 32.0 mg/dL Critically high 7.0-18.0 [facility] Comment on above: Performed By: #### C MP, MG #### [facility] [address] [address] [address] Ronnie Pennington Urea nitrogen/Creatinine [Mass ratio] 15.0 mg/mg Normal [facility] Comment on above: Performed By: #### C MP, MG #### [facility] [address] [address] [address] Ronnie Pennington Transplant SW Assessment Upd [...] and Scales' Signatures Electronically signed by : NRUA Rivero; Jul 15 2022 12:57PM EST (Author) Normal [facility] Consultation Noteon 06-10-19 Consultation Note [id number]:[id number] Normal [facility] TSHon 06-05-2022 TSH 3.293 uIU/mL Normal 0.358-3.74 0 [facility] Comment on above: Performed By: #### T SH #### [facility] [address] [address] [address] Ronnie Pennington Cult,Woundon 04-19-2022 Cult,Wound Specimen [...] Tetracycline <=1 SUSCEPTIBLE Trimethoprim/Sulfa <=10 SUSCEPTIBLE Susceptible [facility] Comment on above: Performed By: #### W DC #### [address] [place] [address] Drum Dyeing Machine Operator: David Gonzalez MD PROF CHEM 8 ([facility])on Anion gap [Moles/Vol] 14.9 mmol/L Normal [facility] Comment on above: Performed By: #### B MP #### [facility] [address] [place] [address] Dr. Ronnie Pennington Calcium [Mass/Vol] 8.8 mg/dL Normal 8.5-10.1 [facility] Comment on above: Performed By: #### B MP #### [facility] [address] [place] [address] Dr. Ronnie Pennington Chloride [Moles/Vol] 104 mmol/L Normal 98-107 [facility] Comment on above: Performed By: #### B MP #### [facility] [address] [place] [address] Dr. Ronnie Pennington CO2 [Moles/Vol] 26.6 mmol/L Normal 21.0-32.0 [facility] Comment on above: Performed By: #### B MP #### [facility] [address] [address] [address] Ronnie Pennington Creatinine [Mass/Vol] 2.03 mg/dL Critically high 0.70-1.30 [facility] Comment on above: Performed By: #### B MP #### [facility] [address] [address] [address] Ronnie Pennington EGFR-AF TURKMEN 39 mL/min/1.73m2 Critically low >=60 [facility] Comment on above: Performed By: #### B MP #### [facility] [address] [address] [address] Ronnie Pennington EGFR-NON AF TURKMEN 32 mL/min/1.73m2 Critically low >=60 [facility] Comment on above: Performed By: #### B MP #### [facility] [address] [address] [address] Ronnie Pennington Glucose [Mass/Vol] 209 mg/dL Critically high 74-106 [facility] Comment on above: Performed By: #### B MP #### [facility] [address] [address] [address] Ronnie Pennington Potassium [Moles/Vol] 4.5 mmol/L Normal 3.5-5.1 [facility] Comment on above: Performed By: #### B MP #### [facility] [address] [address] [address] Ronnie Pennington Sodium [Moles/Vol] 141 mmol/L Normal 136-145 [facility] Comment on above: Performed By: #### B MP #### [facility] [address] [address] [address] Ronnie Pennington Urea nitrogen [Mass/Vol] 26.0 mg/dL Critically high 7.0-18.0 [facility] Comment on above: Performed By: #### B MP #### [facility] [address] [address] [address] Ronnie Pennington Urea nitrogen/Creatinine [Mass ratio] 12.8 mg/mg Normal [facility] Comment on above: Performed By: #### B #### [facility] [address] [place], [place] [address] Dr. Ronnie Pennington Office Visit (Cardiology)on 10-15-2021 [...] last office visit; documented BPs at the [facility] 120-130s/70-80s. Benadryl 25 mg q6h PRN for [...] Oral TabletTak (more content not included)... Normal [employer] XR MODIFIED BARIUM SWALLOWon 08-05-2021 XR MODIFIED [...] JARON NESS Date: 2021-08-05 15:10 Normal [facility] CBC AND DIFFERENTIALon 07-13 % AUTOMATED IMMATURE GRAN 0.5 % Normal 0.0 - 0.9 [facility] Comment on above: Result Comment: Christal ture Granulocyte Count (IG) includes promyelocytes, myelocytes and metamyelocytes but does not include bands. Percent differential counts (%) should be interpreted in the context of the absolute cell counts (cells/L). Performed By: #### C BCDF #### [address] [address] Basophils (Bld) [#/Vol] 0.02 10*3/uL Normal 0.00 - 0.10 [facility] Comment on above: Performed By: #### C BCDF #### [address] [address] Basophils/100 WBC (Bld) 0.3 % Normal 0.0 - 2.0 [facility] Comment on above: Performed By: #### C BCDF #### [address] [address] Eosinophils (Bld) [#/Vol] 0.07 10*3/uL Normal 0.00 - 0.40 [facility] Comment on above: Performed By: #### C BCDF #### [address] [address] Eosinophils/100 WBC (Bld) 0.9 % Normal 0.0 - 6.0 [facility] Comment on above: Performed By: #### C BCDF #### [address] [address] Erythrocyte distribution width (RBC) [Ratio] 14.4 % Normal 11.5 - 14.5 [facility] Comment on above: Performed By: #### C BCDF #### [address] [place] [address] Hematocrit (Bld) [Volume fraction] 35.5 % Low 41.0 - 52.0 [facility] Comment on above: Performed By: #### C BCDF #### [address] [place] [address] Hemoglobin (Bld) [Mass/Vol] 10.8 g/dL Low 13.5 - 17.5 [facility] Comment on above: Performed By: #### C BCDF #### [address] [place] [address] Lymphocytes (Bld) [#/Vol] 0.42 10*3/uL Low 0.80 - 3.00 [facility] Comment on above: Performed By: #### C BCDF #### [address] [place] [address] Lymphocytes/100 WBC (Bld) 5.6 % Normal 13.0 - 44.0 [facility] Comment on above: Performed By: #### C BCDF #### [address] [place] [address] MCHC (RBC) [Mass/Vol] 30.4 g/dL Low 32.0 - 36.0 [facility] Comment on above: Performed By: #### C BCDF #### [address] [address] MCV (RBC) [Entitic vol] 89 fL Normal 80 - 100 [facility] Comment on above: Performed By: #### C BCDF #### [address] [address] Monocytes (Bld) [#/Vol] 0.07 10*3/uL Normal 0.05 - 0.80 [facility] Comment on above: Performed By: #### C BCDF #### [address] [address] Monocytes/100 WBC (Bld) 0.9 % Normal 2.0 - 10.0 [facility] Comment on above: Performed By: #### C BCDF #### [address] [address] Neutrophils (Bld) [#/Vol] 6.82 10*3/uL High 1.60 - 5.50 [facility] Comment on above: Performed By: #### C BCDF #### [address] [address] Neutrophils/100 WBC (Bld) 91.8 % Normal 40.0 - 80.0 [facility] Comment on above: Performed By: #### C BCDF #### [address] [address] NUCLEATED RBC 0.0 /100 WBC Normal 0.0 - 0.0 [facility] Comment on above: Performed By: #### C BCDF #### [address] [address] Platelets (Bld) [#/Vol] 161 10*3/uL Normal 150 - 450 [facility] Comment on above: Performed By: #### C BCDF #### [address] [address] RBC 3.98 x10E12/L Low 4.50 - 5.90 [facility] Comment on above: Performed By: #### C BCDF #### [address] [address] WBC (Bld) [#/Vol] 7.4 10*3/uL Normal 4.4 - 11.3 [facility] Comment on above: Performed By: #### C BCDF #### [address] [address] Complete Blood Count + Diffe rentialon 07-13-2021 Basophils/100 WBC (Bld) 0.3 % 0.0 - 2.0 [facility] [employer] [address] [place] Work Phone: Erythrocyte distribution width (RBC) [Ratio] 14.4 % See Below [facility] [employer] [address] [place] Work Phone: Comment on above: Reference Range: 11. 5 - 14.5 Hematocrit (Bld) [Volume fraction] 35.5 % below low threshold See Below [facility] [address] [place] Work Phone: Comment on [...] 161 10*3/uL 150 - 450 [facility] [address] [place] Work Phone: RBC (Bld) [#/Vol] 3.98 {x10E12/L} below low threshold See Below [facility] [address] [place] Work Phone: Comment on above: Reference Range: 4.5 0 - 5.90 WBC (Bld) [#/Vol] 7.4 10*3/uL 4.4 - 11.3 [facility] [employer] [address] [place] Work Phone: Complete Blood Count + Differential 0.02 {x10E9/L} See Below [facility] [address] [place] Work Phone: Comment on above: Reference Range: 0.0 0 - 0.10 Complete Blood Count + Differential 0.07 {x10E9/L} See Below [facility] [address] [place] Work Phone: Comment on above: Reference Range: 0.0 0 - 0.40 Reference Range: 0.0 5 - 0.80 Complete Blood Count + Differential 0.42 {x10E9/L} below low threshold See Below [facility] [address] [place] Work Phone: Comment on above: Reference Range: 0.8 0 - 3.00 Complete Blood Count + Differential 6.82 {x10E9/L} above high threshold See Below [facility] [address] [place] Work Phone: Comment on above: Reference Range: 1.6 0 - 5.50 Complete Blood Count + Differential 0.9 % 0.0 - 6.0 [facility] [employer] [address] [place] Work Phone: Complete Blood Count + Differential 0.5 % 0.0 - 0.9 [facility] [address] [place] Work Phone: Comment on above: Immature Granulocyte Count (IG) includes promyelocytes, myelocytes and metamyelocytes but does not include bands. Percent differential counts (%) should be interpreted in the context of the absolute cell counts (cells/L). Complete Blood Count + Differential 0.0 {/100_WBC} 0.0 - 0.0 [facility] [address] [place] Work Phone: Coronavirus 2019 RNA by PCR, Symptomaticon 07-03-2021 Date and time of symptom onset [id number] [facility] [address] [place] Work Phone: Coronavirus 2019 RNA by PCR, Symptomatic Not detected Normal See Below [facility] [address] [place] Work Phone: Comment on above: SOURCE: Nasal, Nasop haryngealReference Range: Not Detected.This test has received FDA Emergency Use Authorization (EUA) and has been verified by [facility] ([facility]). This test is only authorized for the duration of time that circumstances exist to justify the authorization of the emergency use of in vitro diagnostic tests for the detection of SARS-CoV-2 virus and/or diagnosis of COVID-19 infection under section 564(b)(1) of the Act, 21 U.S.C. 360bbb-3(b)(1), unless the authorization is terminated or revoked sooner. [facility] is certified under CLIA-88 as qualified to perform high complexity testing. Testing is performed in the [facility] located at [address] [place] [address].SARS-CoV-2/Flu/RSV Multiplex Test: Fact sheet for providers: https://www.fda.gov/media/968884/downloadFact sheet for patients: https://www.fda.gov/media/977673/download Laboratory - Chemistry and C hemistry - challengeon 07-03-2021 Glucose [Mass/Vol] 330 mg/dL above high threshold 74 - 99 [facility] [address] [place] Work Phone: Glucose [Mass/Vol] [...] mmol/L 21 - 32 [facility] [address] [place] Work Phone: Creatinine [Mass/Vol] 1.80 mg/dL above high threshold See Below [facility] [address] [place] Work Phone: Comment on above: Reference Range: 0.5 0 - 1.30 Glucose [Mass/Vol] 246 mg/dL above high threshold 74 - 99 [facility] [address] [place] Work Phone: Potassium [Moles/Vol] 3.9 mmol/L 3.5 - 5.3 [facility] [address] [place] Work Phone: [phone] Sodium [Moles/Vol] 138 mmol/L 136 - 145 [facility] [address] [place] Work Phone: Urea nitrogen [...] below low threshold See Below [facility] [address] [place] Work Phone: Comment on above: Reference Range: 41. 0 - 52.0 Hemoglobin (Bld) [Mass/Vol] 10.8 g/dL below low threshold See Below [facility] [address] [place] Work Phone: Comment on above: Reference Range: 13. 5 - 17.5 MCHC (RBC) [Mass/Vol] 30.8 g/dL below low threshold See Below [facility] [address] [place] Work Phone: Comment on above: Reference Range: 32. 0 - 36.0 MCV (RBC) [Entitic vol] 89 fL 80 - 100 [facility] [address] [place] Work Phone: Platelets (Bld) [#/Vol] 171 10*3/uL 150 - 450 [facility] [address] [place] Work Phone: RBC (Bld) [#/Vol] 3.94 {x10E12/L} below low threshold See Below [facility] [address] [place] Work Phone: Comment on above: Reference Range: 4.5 0 - 5.90 WBC (Bld) [#/Vol] 6.0 10*3/uL 4.4 - 11.3 [facility] [address] [place] Work Phone: No Panel Informationon 07-03 38 {mL/min/1.73m2} Abnormal >90 [facility] [address] [place] Work Phone: Comment on above: CALCULATIONS OF ERNST MATED GFR ARE PERFORMED USING THE 2020 CKD-EPI STUDY REFIT EQUATION WITHOUT THE RACE VARIABLE FOR THE IDMS-TRACEABLE CREATININE METHODS.https://jasn.asnjournals.org/content/early// ASN.4559902189 0.0 {/100_WBC} 0.0-0.0 [facility] [address] [place] Work Phone: Tacrolimuson 07-03-2021 Tacrolimus (Bld) [Mass/Vol] 5.5 ng/mL 2.0 - 15.0 [facility] [address] [place] Work Phone: Comment on above: NOTE: Result was obt ained using a chemiluminescent microparticle immunoassay (CMIA) on the [employer] i system.Optimal therapeutic ranges for immuno-suppressant drugs [...] high threshold 74 - 99 [facility] [address] [place] Work Phone: [phone] Glucose [Mass/Vol] 286 mg/dL above high threshold 74 - 99 [facility] [address] [place] Work Phone: [phone] Glucose [Mass/Vol] 269 mg/dL above high threshold 74 - 99 [facility] [address] [place] Work Phone: [phone] Anion gap [Moles/Vol] 15 mmol/L 10 - 20 [facility] [address] [place] Work Phone: [phone] Calcium [Mass/Vol] 9.1 mg/dL 8.6 - 10.6 [facility] [address] [place] Work Phone: [phone] Chloride [Moles/Vol] 102 mmol/L 98 - 107 [facility] [address] [place] Work Phone: [phone] CO2 [Moles/Vol] 27 mmol/L 21 - 32 [facility] [address] [place] Work Phone: [phone] Creatinine [Mass/Vol] 1.97 mg/dL above high threshold See Below [facility] [address] [place] Work Phone: [phone] Comment on above: Reference Range: 0.5 0 - 1.30 Glucose [Mass/Vol] 197 mg/dL above high threshold 74 - 99 [facility] [address] [place] Work Phone: Potassium [Moles/Vol] 4.1 mmol/L 3.5 - 5.3 [facility] [address] [place] Work Phone: Sodium [Moles/Vol] 140 mmol/L 136 - 145 [facility] [address] [place] Work Phone: Urea nitrogen [Mass/Vol] 41 mg/dL above high threshold 6 - 23 [facility] [address] [place] Work Phone: Glucose [Mass/Vol] 201 mg/dL above high threshold 74 - 99 [facility] [address] [place] Work Phone: Laboratory - Hematology and Cell countson 07-02-2021 Erythrocyte distribution width (RBC) [Ratio] 14.1 % See Below [facility] [address] [place] Work Phone: Comment on above: Reference Range: 11. 5 - 14.5 Hematocrit (Bld) [Volume fraction] 33.6 % below low threshold See Below [facility] [address] [place] Work Phone: Comment on [...] 160 10*3/uL 150 - 450 [facility] [address] [place] Work Phone: RBC (Bld) [...] RACE VARIABLE FOR THE IDMS-TRACEABLE CREATININE METHODS.https://jasn.asnjournals.org/content/// ASN.8379394645 0.0 {/100_WBC} 0.0-0.0 [facility] [address] [place] Work Phone: Tacrolimuson 07-02-2021 Tacrolimus (Bld) [Mass/Vol] 7.6 ng/mL 2.0 - 15.0 [facility] [address] [place] Work Phone: Comment on above: NOTE: Result was obt ained using a chemiluminescent microparticle immunoassay (CMIA) on the [employer] i system.Optimal therapeutic ranges for immuno-suppressant drugs depend upon an individualpatient's current clinical state, type oforgan transplant, time post-transplant,co-administration of other immunosuppressants,and other clinical factors. The results ofthis test should be correlated with additionalclinical and laboratory data before changesin treatment regimens are made. Hemoglobin A1Con 07-01-2021 Glucose [Mass/Vol] 194 mg/dL [facility] [address] [place] Work Phone: HbA1c (Bld) [...] 13-18 <7.5 7-12 <8.0 0- 6 7.5-8.5 [employer]. Diabetes Care 33(S1), Mar 2009. Laboratory - Chemistry and C hemistry - challengeon 07-01-2021 Glucose [Mass/Vol] 188 mg/dL above high threshold 74 - 99 [facility] [address] [place] Work Phone: Glucose [Mass/Vol] [...] mmol/L 21 - 32 [facility] [address] [place] Work Phone: Creatinine [Mass/Vol] 1.99 mg/dL above high threshold See Below [facility] [address] [place] Work Phone: Comment on above: Reference Range: 0.5 0 - 1.30 Glucose [Mass/Vol] 227 mg/dL above high threshold 74 - 99 [facility] [address] [place] Work Phone: Glucose [Mass/Vol] 243 mg/dL above high threshold 74 - 99 [facility] [address] [place] Work Phone: Potassium [Moles/Vol] 4.0 mmol/L 3.5 - 5.3 [facility] [address] [place] Work Phone: Sodium [Moles/Vol] 141 mmol/L 136 - 145 [facility] [address] [place] Work Phone: Urea nitrogen [Mass/Vol] 38 mg/dL above high threshold 6 - 23 [facility] [address] [place] Work Phone: Laboratory - [...] below low threshold See Below [facility] [address] [place] Work Phone: Comment on above: Reference Range: 32. 0 - 36.0 MCV (RBC) [Entitic vol] 90 fL 80 - 100 [facility] [address] [place] Work Phone: Platelets (Bld) [#/Vol] 157 10*3/uL 150 - 450 [facility] [address] [place] Work Phone: RBC (Bld) [#/Vol] 3.83 {x10E12/L} below low threshold See Below [facility] [address] [place] Work Phone: Comment on above: Reference Range: 4.5 0 - 5.90 WBC (Bld) [#/Vol] 6.8 10*3/uL 4.4 - 11.3 [facility] [address] [place] Work Phone: No Panel Informationon 07-01 34 {mL/min/1.73m2} Abnormal >90 [facility] [address] [place] Work Phone: Comment on above: CALCULATIONS OF ERNST MATED GFR ARE PERFORMED USING THE 2020 CKD-EPI STUDY REFIT EQUATION WITHOUT THE RACE VARIABLE FOR THE IDMS-TRACEABLE CREATININE METHODS.https://jasn.asnjournals.org/content// ASN.9468321465 0.0 {/100_WBC} 0.0-0.0 [facility] [address] [place] Work Phone: Tacrolimuson 07-01-2021 Tacrolimus (Bld) [Mass/Vol] 9.3 ng/mL 2.0 - 15.0 [facility] [address] [place] Work Phone: Comment on above: NOTE: Result was obt ained using a chemiluminescent microparticle immunoassay (CMIA) on the [employer] i system.Optimal therapeutic ranges for immuno-suppressant drugs [...] high threshold 74 - 99 [facility] [address] [place] Work Phone: [phone] Glucose [Mass/Vol] 236 mg/dL above high threshold 74 - 99 [facility] [address] [place] Work Phone: [phone] Anion gap [Moles/Vol] 17 mmol/L 10 - 20 [facility] [address] [place] Work Phone: [phone] Calcium [Mass/Vol] 8.6 mg/dL 8.6 - 10.6 [facility] [address] [place] Work Phone: [phone] Chloride [Moles/Vol] 100 mmol/L 98 - 107 [facility] [address] [place] Work Phone: [phone] CO2 [Moles/Vol] 28 mmol/L 21 - 32 [facility] [address] [place] Work Phone: [phone] Creatinine [Mass/Vol] 2.26 mg/dL above high threshold See Below [facility] [address] [place] Work Phone: [phone] Comment on above: Reference Range: 0.5 0 - 1.30 Glucose [Mass/Vol] 205 mg/dL above high threshold 74 - 99 [facility] [address] [place] Work Phone: [phone] Potassium [Moles/Vol] 3.8 mmol/L 3.5 - 5.3 [facility] [address] [place] Work Phone: Sodium [Moles/Vol] 141 mmol/L 136 - 145 [facility] [address] [place] Work Phone: Urea nitrogen [Mass/Vol] 39 mg/dL above high threshold 6 - 23 [facility] [address] [place] Work Phone: Laboratory - Hematology and Cell countson 06-30-2021 Erythrocyte distribution width (RBC) [Ratio] 14.3 % See Below [facility] [address] [place] Work Phone: Comment on above: Reference Range: 11. 5 - 14.5 Hematocrit (Bld) [Volume fraction] 33.5 % below low threshold See Below [facility] [address] [place] Work Phone: Comment on above: Reference Range: 41. 0 - 52.0 Hemoglobin (Bld) [Mass/Vol] 10.5 g/dL below low threshold See Below [facility] [address] [place] Work Phone: Comment on above: Reference Range: 13. 5 - 17.5 MCHC (RBC) [Mass/Vol] 31.3 g/dL below low threshold See Below [facility] [address] [place] Work Phone: Comment on above: Reference Range: 32. 0 - 36.0 MCV (RBC) [Entitic vol] 91 fL 80 - 100 [facility] [address] [place] Work Phone: Platelets (Bld) [#/Vol] 141 10*3/uL below lo w threshold 150 - 450 [facility] [address] [place] Work Phone: RBC (Bld) [#/Vol] 3.70 {x10E12/L} below low threshold See Below [facility] [address] [place] Work Phone: Comment on above: Reference Range: 4.5 0 - 5.90 WBC (Bld) [#/Vol] 8.2 10*3/uL 4.4 - 11.3 [facility] [address] [place] Work Phone: No Panel Informationon 06-30 29 {mL/min/1.73m2} Abnormal >90 [facility] [address] [place] Work Phone: Comment on above: CALCULATIONS OF ERNST MATED GFR ARE PERFORMED USING THE 2020 CKD-EPI STUDY REFIT EQUATION WITHOUT THE RACE VARIABLE FOR THE IDMS-TRACEABLE CREATININE METHODS.https://jasn.asnjournals.org/content/early/ ASN.8328696590 0.0 {/100_WBC} 0.0-0.0 [facility] [address] [place] Work Phone: Tacrolimuson 06-30-2021 Tacrolimus (Bld) [Mass/Vol] 7.7 ng/mL 2.0 - 15.0 [facility] [address] [place] Work Phone: Comment on above: NOTE: Result was obt ained using a chemiluminescent microparticle immunoassay (CMIA) on the [employer] system.Optimal therapeutic ranges for immuno-suppressant drugs [...] high threshold 74 - 99 [facility] [address] [place] Work Phone: [phone] Glucose [Mass/Vol] 283 mg/dL above high threshold 74 - 99 [facility] [address] [place] Work Phone: [phone] Anion gap [Moles/Vol] 16 mmol/L 10 - 20 [facility] [address] [place] Work Phone: [phone] Calcium [Mass/Vol] 8.7 mg/dL 8.6 - 10.6 [facility] [address] [place] Work Phone: [phone] Chloride [Moles/Vol] 104 mmol/L 98 - 107 [facility] [address] [place] Work Phone: [phone] CO2 [Moles/Vol] 28 mmol/L 21 - 32 [facility] [address] [place] Work Phone: [phone] Creatinine [Mass/Vol] 1.97 mg/dL above high threshold See Below [facility] [address] [place] Work Phone: [phone] Comment on above: Reference Range: 0.5 0 - 1.30 Glucose [Mass/Vol] 185 mg/dL above high threshold 74 - 99 [facility] [address] [place] Work Phone: [phone] Potassium [Moles/Vol] 3.9 mmol/L 3.5 - 5.3 [facility] [address] [place] Work Phone: [phone] Sodium [Moles/Vol] 144 mmol/L 136 - 145 [facility] [address] [place] Work Phone: [phone] Urea nitrogen [Mass/Vol] 35 mg/dL above high threshold 6 - 23 [facility] [address] [place] Work Phone: [phone] Glucose [Mass/Vol] 186 mg/dL above high threshold 74 - 99 [facility] [address] [place] Work Phone: Laboratory - Hematology and Cell countson 06-29-2021 Erythrocyte distribution width (RBC) [Ratio] 14.3 % See Below [facility] [address] [place] Work Phone: Comment on above: Reference Range: 11. 5 - 14.5 Hematocrit (Bld) [Volume fraction] 35.8 % below low threshold See Below [facility] [address] [place] Work Phone: Comment on above: Reference Range: 41. 0 - 52.0 Hemoglobin (Bld) [Mass/Vol] 11.0 g/dL below low threshold See Below [facility] [address] [place] Work Phone: Comment on above: Reference Range: 13. 5 - 17.5 MCHC (RBC) [Mass/Vol] 30.7 g/dL below low threshold See Below [facility] [employer] [address] [place] Work Phone: Comment on above: Reference Range: 32. 0 - 36.0 MCV (RBC) [Entitic vol] 90 fL 80 - 100 [facility] [address] [place] Work Phone: Platelets (Bld) [#/Vol] 142 10*3/uL below lo w threshold 150 - 450 [facility] [address] [place] Work Phone: RBC (Bld) [#/Vol] 3.96 {x10E12/L} below low threshold See Below [facility] [address] [place] Work Phone: Comment on above: Reference Range: 4.5 0 - 5.90 WBC (Bld) [#/Vol] 7.0 10*3/uL 4.4 - 11.3 [facility] [address] [place] Work Phone: Magnesium, Serumon Magnesium [Mass/Vol] 1.80 mg/dL See Below [facility] [address] [place] Work Phone: Comment on above: Reference Range: 1.6 0 - 2.40 No Panel Informationon 06-29 34 {mL/min/1.73m2} Abnormal >90 [facility] [address] [place] Work Phone: Comment on above: CALCULATIONS OF ERNST MATED GFR ARE PERFORMED USING THE 2020 CKD-EPI STUDY REFIT EQUATION WITHOUT THE RACE VARIABLE FOR THE IDMS-TRACEABLE CREATININE METHODS.https://jasn.asnjournals.org/content/early// ASN.9525569442 0.0 {/100_WBC} 0.0-0.0 [facility] [address] [place] Work Phone: Tacrolimuson 06-29-2021 Tacrolimus (Bld) [Mass/Vol] 8.4 ng/mL 2.0 - 15.0 [facility] [address] [place] Work Phone: Comment on above: NOTE: Result was obt ained using a chemiluminescent microparticle immunoassay (CMIA) on the [employer] system.Optimal therapeutic ranges for immuno-suppressant drugs [...] high threshold 74 - 99 [facility] [address] [place] Work Phone: Glucose [Mass/Vol] 215 mg/dL above high threshold 74 - 99 [facility] [address] [place] Work Phone: Anion gap [Moles/Vol] 14 mmol/L 10 - 20 [facility] [address] [place] Work Phone: [phone] Calcium [Mass/Vol] 8.5 mg/dL below low threshold 8.6 - 10.6 [facility] [address] [place] Work Phone: [phone] Chloride [Moles/Vol] 105 mmol/L 98 - 107 [facility] [address] [place] Work Phone: [phone] CO2 [Moles/Vol] 29 mmol/L 21 - 32 [facility] [address] [place] Work Phone: [phone] Creatinine [Mass/Vol] 1.96 mg/dL above high threshold See Below [facility] [address] [place] Work Phone: [phone] Comment on above: Reference Range: 0.5 0 - 1.30 Glucose [Mass/Vol] 159 mg/dL above high threshold 74 - 99 [facility] [address] [place] Work Phone: [phone] Potassium [Moles/Vol] 3.8 mmol/L 3.5 - 5.3 [facility] [address] [place] Work Phone: [phone] Sodium [Moles/Vol] 144 mmol/L 136 - 145 [facility] [address] [place] Work Phone: [phone] Urea [...] [Ratio] 14.3 % See Below [facility] [address] [place] Work Phone: [phone] Comment on above: Reference Range: 11. 5 - 14.5 Hematocrit (Bld) [Volume fraction] 33.8 % below low threshold See Below [facility] [address] [place] Work Phone: Comment on above: Reference Range: 41. 0 - 52.0 Hemoglobin (Bld) [Mass/Vol] 10.4 g/dL below low threshold See Below [facility] [address] [place] Work Phone: Comment on above: Reference Range: 13. 5 - 17.5 MCHC (RBC) [Mass/Vol] 30.8 g/dL below low threshold See Below [facility] [address] [place] Work Phone: Comment on above: Reference Range: 32. 0 - 36.0 MCV (RBC) [Entitic vol] 90 fL 80 - 100 [facility] [address] [place] Work Phone: Platelets (Bld) [#/Vol] 133 10*3/uL below lo w threshold 150 - 450 [facility] [address] [place] Work Phone: RBC (Bld) [#/Vol] 3.75 {x10E12/L} below low threshold See Below [facility] [address] [place] Work Phone: Comment on above: Reference Range: 4.5 0 - 5.90 WBC (Bld) [#/Vol] 5.7 10*3/uL 4.4 - 11.3 [facility] [employer] [address] [place] Work Phone: Lactate, Levelon 06-28-2021 Lactate [Moles/Vol] 0.6 mmol/L 0.4 - 2.0 [facility] [address] [place] Work Phone: Comment on above: [...] RACE VARIABLE FOR THE IDMS-TRACEABLE CREATININE METHODS.https://jasn.asnjournals.org/content/early/ ASN.9327059910 0.0 {/100_WBC} 0.0-0.0 [facility] [address] [place] Work Phone: Tacrolimuson 06-28-2021 Tacrolimus (Bld) [Mass/Vol] 10.4 ng/mL 2.0 - 15.0 [facility] [address] [place] Work Phone: Comment on above: NOTE: Result was obt ained using a chemiluminescent microparticle immunoassay (CMIA) on the [employer] system.Optimal therapeutic ranges for immuno-suppressant drugs depend upon an individualpatient's current clinical state, type oforgan transplant, time post-transplant,co-administration of other immunosuppressants,and other clinical factors. The results ofthis test should be correlated with additionalclinical and laboratory data before changesin treatment regimens are made. Complete Blood Count + Diffe rentialon 06-27-2021 Basophils/100 WBC (Bld) 0.5 % 0.0 - 2.0 [facility] [address] [place] Work Phone: Erythrocyte distribution width (RBC) [Ratio] 14.3 % See Below [facility] [address] [place] Work Phone: Comment on above: Reference Range: 11. 5 - 14.5 Hematocrit (Bld) [Volume fraction] 33.6 % below low threshold See Below [facility] [address] [place] Work Phone: Comment on above: Reference Range: 41. 0 - 52.0 Hemoglobin (Bld) [Mass/Vol] 10.3 g/dL below low threshold See Below [facility] [address] [place] Work Phone: Comment on above: Reference Range: 13. 5 - 17.5 Lymphocytes/100 WBC (Bld) 13.1 % See Below [facility] [address] [place] Work Phone: [phone] Comment on above: Reference Range: 13. 0 - 44.0 MCHC (RBC) [Mass/Vol] 30.7 g/dL below low threshold See Below [facility] [address] [place] Work Phone: [phone] Comment on above: Reference Range: 32. 0 - 36.0 MCV (RBC) [Entitic vol] 92 fL 80 - 100 [facility] [address] [place] Work Phone: [phone] Monocytes/100 WBC (Bld) 9.0 % 2.0 - 10.0 [facility] [address] [place] Work Phone: [phone] Neutrophils/100 WBC (Bld) 72.5 % See Below [facility] [address] [place] Work Phone: [phone] Comment on above: Reference Range: 40. 0 - 80.0 Platelets (Bld) [#/Vol] 137 10*3/uL below lo w threshold 150 - 450 [facility] [address] [place] Work Phone: [phone] RBC (Bld) [#/Vol] 3.67 {x10E12/L} below low threshold See Below [facility] [address] [place] Work Phone: [phone] Comment on above: Reference Range: 4.5 0 - 5.90 WBC (Bld) [#/Vol] 6.4 10*3/uL 4.4 - 11.3 [facility] [address] [place] Work Phone: [phone] Complete Blood Count + Differential 0.03 {x10E9/L} See Below [facility] [address] [place] Work Phone: Comment on [...] Wu on 06-27-2021 Glucose [Mass/Vol] 263 mg/dL [facility] Comment on above: Random Glucose Refer [...] 57 U/L 33 - 136 [facility] [address] [place] Work Phone: ALT With P-5'-P [Catalytic activity/Vol] 4 U/L below low threshold 10 - 52 [facility] [address] [place] Work Phone: Comment on above: Patients treated wit h Sulfasalazine may generate falsely decreased results for ALT. Anion gap [Moles/Vol] 18 mmol/L 10 - 20 [facility] [address] [place] Work Phone: AST With P-5'-P [Catalytic activity/Vol] 10 U/L 9 - 39 [facility] [address] [place] Work Phone: Bilirubin [Mass/Vol] 0.3 mg/dL 0.0 - 1.2 [facility] [address] [place] Work Phone: Calcium [Mass/Vol] 8.3 mg/dL below low threshold 8.6 - 10.6 [facility] [address] [place] Work Phone: Chloride [Moles/Vol] [...] high threshold 74 - 99 [facility] [address] [place] Work Phone: Potassium [Moles/Vol] 3.7 mmol/L 3.5 - 5.3 [facility] [address] [place] Work Phone: Protein [Mass/Vol] 5.7 g/dL below low threshold 6.4 - 8.2 [facility] [address] [place] Work Phone: Sodium [Moles/Vol] 142 mmol/L 136 - 145 [facility] [address] [place] Work Phone: Urea nitrogen [Mass/Vol] 37 mg/dL above high threshold 6 - 23 [facility] [address] [place] Work Phone: Glucose [Mass/Vol] 178 mg/dL above high threshold 74 - 99 [facility] [address] [place] Work Phone: Glucose [Mass/Vol] [...] RACE VARIABLE FOR THE IDMS-TRACEABLE CREATININE METHODS.https://jasn.asnjournals.org/content// ASN.2163976656 No Panel InformationOrdered By: Yoshi Wu on 06-27-2021 Bedside Glucose Comment Glu2: cleaned [facility] Automated erythrocytes count in urine sediment (number/area)Ordered By: Audra Quinteros on 06-26-2021 RBC Auto (Urine sed) [#/Area] 0-1 [HPF] [facility] Automated leukocytes count i n urine sediment (number/area)Ordered By: Audra Quinteros on 06-26-2021 WBC Auto (Urine sed) [#/Area] 0-1 [HPF] [facility] Bilirubin Test strip Ql (U)O rdered By: Audra Quinteros on 06-26-2021 Bilirubin Ql (U) Negative Negative [facility] COVID-19 Positive/NegativeOr dered By: Omid Myrick on 06-26-2021 SARS-CoV-2 (COVID-19) N gene JOYCE+probe Ql (Resp) Negative Negative [facility] Comment on above: Testing for SARS-CoV -2 by RT-PCRThis test was developed and its performance characteristics determined by [employer] ([employer]) and validated at the [facility]. This test has not been FDA cleared [...] Quinteros on 06-26-2021 Color (U) Yellow Yellow [facility] Creatinine [Mass/volume] in UrineOrdered By: Audra Quinteros on 06-26-2021 Creatinine (U) [Mass/Vol] 71.5 mg/dL [facility] Comment on above: No reference range e stablished Creatinine and Glomerular fi ltration rate.predicted panel (S/P/Bld)Ordered By: Audra Quinteros on 06-26-2021 Creatinine [Mass/Vol] 1.99 mg/dL 0.64-1.27 [facility] Estimated glomerular filtrat ion rate (GFR) non- AmericanOrdered By: Audra Quinteros on 06-26-2021 GFR/1.73 sq M.predicted among non-blacks MDRD (S/P/Bld) [Vol rate/Area] 33 mL/Min [facility] Ketones Auto test strip (U) [Mass/Vol]Ordered By: Audra Quinteros on 06-26-2021 Ketones (U) [Mass/Vol] Negative Negative [facility] Laboratory - Microbiology an d Antimicrobial susceptibilityOrdered By: Omid Myrick on 06-26-2021 SARS-CoV-2 (COVID-19) RNA JOYCE+probe Ql (Unsp spec) N/A [facility] Laboratory - UrinalysisOrder ed By: Audra Quinteros on 06-26-2021 Hyaline casts LM Ql (Urine sed) 0-8 [LPF] [facility] Nitrite Test strip Ql (U)Ord ered By: Audra Quinteros on 06-26-2021 Nitrite Ql (U) Negative Negative [facility] No Panel InformationOrdered By: Audra Quinteros on 06-26-2021 Estimated GFR () 40 mL/Min [facility] Comment on above: GFR estimated refere nce range: According to KDOQI guidelines, <60 ml/min/1.73m2 is sufficient to diagnose a patient with chronic kidney disease. Pharmacy Creatinine Clearance (Chem 39.80 [facility] Protein Auto test strip (U) [Mass/Vol]Ordered By: Audra Quinteros on 06-26-2021 Protein (U) [Mass/Vol] 300 mg/dL Negative [facility] Serum or plasma calcium abhijit urement (mass/volume)Ordered By: Audra Quinteros on 06-26-2021 Calcium [Mass/Vol] 8.9 mg/dL 8.2-10.2 [facility] Serum or plasma chloride marylin surement (moles/volume)Ordered By: Audra Quinteros on 06-26-2021 Chloride [Moles/Vol] 105 mmol/L 95-114 [facility] [place] Serum or plasma glucose abhijit urement (mass/volume)Ordered By: Audra Quinteros on 06-26-2021 Glucose [Mass/Vol] 194 mg/dL 70-100 [facility] Comment on above: ADA recommended refe rence rangeRandom Glucose Reference Range is dependent on time and content of last meal. Glucose of more than 200 mg/dL in a nonstressed, ambulatory subject supports the diagnosis of Diabetes Mellitus. Serum or plasma potassium me asurement (moles/volume)Ordered By: Omid Myrick on 06-26-2021 Potassium [Moles/Vol] 4.0 mmol/L 3.5-5.1 [facility] Serum or plasma sodium measu rement (moles/volume)Ordered By: Audra Quinteros on 06-26-2021 Sodium [Moles/Vol] 140 mmol/L 136-146 [facility] Serum or plasma total carbon dioxide measurement (moles/volume)Ordered By: Audra Quinteros on 06-26-2021 CO2 [Moles/Vol] 23.8 mmol/L 22.0-30.0 [facility] Serum or plasma urea nitroge n measurement (mass/volume)Ordered By: Audra Quinteros on 06-26-2021 Urea nitrogen [Mass/Vol] 39 mg/dL 9-23 [facility] Specific gravity Auto test s trip (U) [Rel density]Ordered By: Audra Quinteros on 06-26-2021 Specific gravity (U) [Rel density] 1.015 1.001-1.03 0 [facility] Squamous epithelial cells de tection in urine sediment by light microscopyOrdered By: Audra Quinteros on 06-26-2021 Epithelial cells.squamous LM Ql (Urine sed) None seen [HPF] [facility] Urine bacteria detection by automated methodOrdered By: Audra Quinteros on 06-26-2021 Bacteria Auto Ql (U) None seen None Seen [facility] [place] Urine clarity by refractomet ry automatedOrdered By: Audra Quinteros on 06-26-2021 Clarity Refractometry automated (U) Clear Clear [facility] Urine glucose measurement by automated test strip (mass/volume)Ordered By: Audra Quinteros on 06-26-2021 Glucose Auto test strip (U) [Mass/Vol] Normal mg/dL Normal [facility] Urine hemoglobin detection b y automated test stripOrdered By: Audra Quinteros on 06-26-2021 Hemoglobin Auto test strip Ql (U) Negative Negative [facility] Urine leukocyte esterase det ection by automated test stripOrdered By: Audra Quinteros on 06-26-2021 Leukocyte esterase Auto test strip Ql (U) Negative Negative [facility] Urine sodium measurement (mo les/volume)Ordered By: Audra Quinteros on 06-26-2021 Sodium (U) [Moles/Vol] 94 mmol/L [facility] Comment on above: No reference range e stablished Urobilinogen Auto test strip (U) [Mass/Vol]Ordered By: Audra Quinteros on 06-26-2021 Urobilinogen (U) [Mass/Vol] Normal mg/dL Normal [facility] pH Auto test strip (U)Ordere d By: Audra Quinteros on 06-26-2021 pH (U) 5.5 [pH] 5.0-9.0 [facility] Activated partial thrombopla stin time (aPTT) in platelet poor plasma by coagulation aOrdered By: Andrew Hernández on 06-25-2021 aPTT Coag (PPP) [Time] 33.4 s 25.1-36.5 [facility] Albumin [Mass/volume] in Ser um or PlasmaOrdered By: Andrew Hernández on 06-25-2021 Albumin [Mass/Vol] 3.4 g/dL 3.2-5.5 [facility] Basophils Auto (Bld) [#/Vol] Ordered By: Andrew Hernández on 06-25-2021 Basophils (Bld) [#/Vol] 0.0 10*3/uL 0.0-0.2 [facility] Basophils/100 WBC Auto (Bld) Ordered By: Andrew Hernández on 06-25-2021 Basophils/100 WBC (Bld) 0.6 % [facility] Blood hemoglobin measurement (mass/volume)Ordered By: Andrew Hernández on 06-25-2021 Hemoglobin (Bld) [Mass/Vol] 11.8 g/dL 13.0-17.0 [facility] Blood leukocytes automated c ount (number/volume)Ordered By: Andrew Hernández on 06-25-2021 WBC (Bld) [#/Vol] 7.5 10*3/uL 4.5-11.0 [facility] COVID-19 SOFIAOrdered By: Prasanna Hernández on 06-25-2021 SARS-CoV+SARS-CoV-2 (COVID-19) Ag IA.rapid Ql (Resp) Negative Negative [facility] Comment on above: This is a duplicate Jessi SARS Antigen (GABI) result to be used for statistical tracking purpose only. Creatinine and Glomerular fi ltration rate.predicted panel (S/P/Bld)Ordered By: Andrew Hernández on 06-25-2021 Creatinine [Mass/Vol] 2.25 mg/dL 0.64-1.27 [facility] Eosinophils Auto (Bld) [#/Vo l]Ordered By: Andrew Hernández on 06-25-2021 Eosinophils (Bld) [#/Vol] 0.3 10*3/uL 0.0-0.45 [facility] Eosinophils/100 WBC Auto (Bl d)Ordered By: Andrew Hernández on 06-25-2021 Eosinophils/100 WBC (Bld) 4.6 % [facility] Erythrocyte distribution wid th Auto (RBC) [Ratio]Ordered By: Andrew Hernández on 06-25-2021 Erythrocyte distribution width (RBC) [Ratio] 16.1 % 12.0-14.8 [facility] Erythrocyte sedimentation ra te by Photometric methodOrdered By: Andrew Hernández on 06-25-2021 ESR Photometric method (Bld) [Velocity] 39 mm/hr 0-19 [facility] Estimated glomerular filtrat ion rate (GFR) non- AmericanOrdered By: Andrew Hernández on 06-25-2021 GFR/1.73 sq M.predicted among non-blacks MDRD (S/P/Bld) [Vol rate/Area] 28 mL/Min [facility] Globulin Calc (S) [Mass/Vol] Ordered By: Andrew Hernández on 06-25-2021 Globulin (S) [Mass/Vol] 3.2 g/dL [facility] Hematocrit Auto (Bld) [Volum e fraction]Ordered By: Andrew Hernández on 06-25-2021 Hematocrit (Bld) [Volume fraction] 36.2 % 38.8-50.0 [facility] Laboratory - Chemistry and C hemistry - challengeOrdered By: Andrew Hernández on 06-25-2021 Natriuretic peptide B (Bld) [Mass/Vol] 165.0 pg/mL 5-100 [facility] Laboratory - CoagulationOrde red By: Andrew Hernández on 06-25-2021 PT Coag (PPP) [Time] 11.9 s 9.0-12.9 [facility] [place] Laboratory - Hematology and Cell countsOrdered By: Andrew Hernández on 06-25-2021 Nucleated RBC/100 WBC (Bld) [Ratio] 0.1 % 0-0.5 [facility] Lymphocytes Auto (Bld) [#/Vo l]Ordered By: Andrew Hernández on 06-25-2021 Lymphocytes (Bld) [#/Vol] 1.0 10*3/uL 1.00-4.8 [facility] Lymphocytes/100 WBC Auto (Bl d)Ordered By: Andrew Hernández on 06-25-2021 Lymphocytes/100 WBC (Bld) 12.9 % [facility] MCH Auto (RBC) [Entitic mass ]Ordered By: Andrew Hernández on 06-25-2021 MCH (RBC) [Entitic mass] 28.1 pg 27.5-35.2 [facility] MCHC Auto (RBC) [Mass/Vol]Or dered By: Andrew Hernández on 06-25-2021 MCHC (RBC) [Mass/Vol] 32.7 g/dL 32.5-35.6 [facility] MCV Auto (RBC) [Entitic vol] Ordered By: Andrew Hernández on 06-25-2021 MCV (RBC) [Entitic vol] 86.0 fL 83.5-[address] [facility] Monocytes Auto (Bld) [#/Vol] Ordered By: Andrew Hernández on 06-25-2021 Monocytes (Bld) [#/Vol] 0.5 10*3/uL 0.0-0.8 [facility] Monocytes/100 WBC Auto (Bld) Ordered By: Andrew Hernández on 06-25-2021 Monocytes/100 WBC (Bld) 7.3 % F [facility] Neutrophils Auto (Bld) [#/Vo l]Ordered By: Andrew Hernández on 06-25-2021 Neutrophils (Bld) [#/Vol] 5.6 10*3/uL 1.8-7.7 [facility] Neutrophils/100 WBC Auto (Bl d)Ordered By: Andrew Hernández on 06-25-2021 Neutrophils/100 WBC (Bld) 74.6 % [facility] No Panel InformationOrdered By: Andrew Hernández on 06-25-2021 SARS Antigen (LFIA) [facility] Estimated GFR () 34 mL/Min [facility] Comment on above: GFR estimated refere nce range: According to KDOQI guidelines, <60 ml/min/1.73m2 is sufficient to diagnose a patient with chronic kidney disease. Pharmacy Creatinine Clearance (Chem 365.00 [facility] Platelet mean volume Auto (B ld) [Entitic vol]Ordered By: Andrew Hernández on 06-25-2021 Platelet mean volume (Bld) [Entitic vol] 10.0 fL 6.6-10.1 [facility] Platelet poor plasma interna tional normalized ratio (INR) by coagulation assay (relatOrdered By: Andrew Hernández on 06-25-2021 INR Coag (PPP) [Relative time] 1.1 {INR} [facility] Comment on above: INR Therapeutic Rang e [...] 06-25-2021 Platelets (Bld) [#/Vol] 171 10*3/uL 150-450 [facility] Comment on above: Delta: 119 on 04/05/ 22-0453 Protein [Mass/volume] in Ser um or PlasmaOrdered By: Andrew Hernández on 06-25-2021 Protein [Mass/Vol] 6.6 g/dL 6.1-7.9 [facility] RBC Auto (Bld) [#/Vol]Ordere d By: Andrew Hernández on 06-25-2021 RBC (Bld) [#/Vol] 4.21 10*6/uL 3.90-5.60 [facility] Serum or plasma C reactive p rotein measurement (mass/volume)Ordered By: Andrew Hernández on 06-25-2021 CRP [Mass/Vol] 0.9 mg/dL 0.0-1.0 [facility] Serum or plasma alanine lopez otransferase measurement without P-5'-P (enzymatic activiOrdered By: Andrew Hernández on 06-25-2021 ALT No additional P-5'-P [Catalytic activity/Vol] 13 U/L 10-60 [facility] Serum or plasma albumin/glob ulin mass ratioOrdered By: Andrew Hernández on 06-25-2021 Albumin/Globulin [Mass ratio] 1.1 {ratio} [facility] Serum or plasma alkaline cande sphatase measurement (enzymatic activity/volume)Ordered By: Andrew Hernández on 06-25-2021 ALP [Catalytic activity/Vol] 57 U/L 32-92 [facility] Serum or plasma aspartate am inotransferase measurement (enzymatic activity/volume)Ordered By: Andrew Hernández on 06-25-2021 AST [Catalytic activity/Vol] 15 U/L 10-42 [facility] Serum or plasma calcium abhijit urement (mass/volume)Ordered By: Andrew Hernández on 06-25-2021 Calcium [Mass/Vol] 9.2 mg/dL 8.2-10.2 [facility] Serum or plasma chloride marylin surement (moles/volume)Ordered By: Andrew Hernández on 06-25-2021 Chloride [Moles/Vol] 106 mmol/L 95-114 [facility] [place] Serum or plasma glucose abhijit urement (mass/volume)Ordered By: Andrew Hernández on 06-25-2021 Glucose [Mass/Vol] 177 mg/dL 70-100 [facility] Comment on above: ADA recommended refe rence rangeRandom Glucose Reference Range is dependent on time and content of last meal. Glucose of more than 200 mg/dL in a nonstressed, ambulatory subject supports the diagnosis of Diabetes Mellitus. Serum or plasma potassium me asurement (moles/volume)Ordered By: Andrew Hernández on 06-25-2021 Potassium [Moles/Vol] 4.2 mmol/L 3.5-5.1 [facility] Serum or plasma sodium measu rement (moles/volume)Ordered By: Andrew Hernández on 06-25-2021 Sodium [Moles/Vol] 142 mmol/L 136-146 [facility] Serum or plasma total biliru bin measurement (mass/volume)Ordered By: Andrew Hernández on 06-25-2021 Bilirubin [Mass/Vol] 0.4 mg/dL 0.3-1.2 [facility] [place] Serum or plasma total carbon dioxide measurement (moles/volume)Ordered By: Andrew Hernández on 06-25-2021 CO2 [Moles/Vol] 24.1 mmol/L 22.0-30.0 [facility] Serum or plasma urea nitroge n measurement (mass/volume)Ordered By: Andrew Hernández on 06-25-2021 Urea nitrogen [Mass/Vol] 41 mg/dL 9-23 [facility] Troponin I.cardiac [Mass/vol ume] in Serum or Plasma by High sensitivity methodOrdered By: Andrew Hernández on 06-25-2021 Troponin I.cardiac High sensitivity method [Mass/Vol] 12 pg/mL 0-20 [facility] Albumin [Mass/volume] in Ser um or PlasmaOrdered By: Julee Davies on 06-24-2021 Albumin [Mass/Vol] 2.9 g/dL 3.2-5.5 [facility] Basophils Auto (Bld) [#/Vol] Ordered By: Julee Davies on 06-24-2021 Basophils (Bld) [#/Vol] 0.0 10*3/uL 0.0-0.2 [facility] Basophils/100 WBC Auto (Bld) Ordered By: Julee Davies on 04-05-2022 Basophils/100 WBC (Bld) 0.6 % F [facility] Blood hemoglobin measurement (mass/volume)Ordered By: Julee Davies on 06-24-2021 Hemoglobin (Bld) [Mass/Vol] 10.8 g/dL 13.0-17.0 [facility] Blood leukocytes automated c ount (number/volume)Ordered By: Julee Davies on 06-24-2021 WBC (Bld) [#/Vol] 6.6 10*3/uL 4.5-11.0 [facility] Creatinine and Glomerular fi ltration rate.predicted panel (S/P/Bld)Ordered By: Julee Davies on 06-24-2021 Creatinine [Mass/Vol] 2.17 mg/dL 0.64-1.27 [facility] Eosinophils Auto (Bld) [#/Vo l]Ordered By: Julee Davies on 06-24-2021 Eosinophils (Bld) [#/Vol] 0.3 10*3/uL 0.0-0.45 [facility] Eosinophils/100 WBC Auto (Bl d)Ordered By: Julee Davies on 06-24-2021 Eosinophils/100 WBC (Bld) 5.2 % [facility] Erythrocyte distribution wid th Auto (RBC) [Ratio]Ordered By: Julee Davies on 06-24-2021 Erythrocyte distribution width (RBC) [Ratio] 15.8 % 12.0-14.8 [facility] Estimated glomerular filtrat ion rate (GFR) non- AmericanOrdered By: Julee Davies on 06-24-2021 GFR/1.73 sq M.predicted among non-blacks MDRD (S/P/Bld) [Vol rate/Area] 30 mL/Min [facility] Globulin Calc (S) [Mass/Vol] Ordered By: Julee Davies on 06-24-2021 Globulin (S) [Mass/Vol] 2.4 g/dL F [facility] Hematocrit Auto (Bld) [Volum e fraction]Ordered By: Julee Davies on 06-24-2021 Hematocrit (Bld) [Volume fraction] 33.0 % 38.8-50.0 [facility] Laboratory - Chemistry and C hemistry - challengeOrdered By: Julee Davies on 06-24-2021 Magnesium [Mass/Vol] 1.9 mg/dL 1.6-2.6 [facility] [place] Natriuretic peptide B (Bld) [Mass/Vol] 224.0 pg/mL 5-100 [facility] Laboratory - Hematology and Cell countsOrdered By: Julee Davies on 06-24-2021 Nucleated RBC/100 WBC (Bld) [Ratio] 0.1 % 0-0.5 [facility] Lymphocytes Auto (Bld) [#/Vo l]Ordered By: Julee Davies on 06-24-2021 Lymphocytes (Bld) [#/Vol] 0.8 10*3/uL 1.00-4.8 [facility] Lymphocytes/100 WBC Auto (Bl d)Ordered By: Julee Davies on 06-24-2021 Lymphocytes/100 WBC (Bld) 11.4 % [facility] MCH Auto (RBC) [Entitic mass ]Ordered By: Julee Davies on 06-24-2021 MCH (RBC) [Entitic mass] 27.7 pg 27.5-35.2 [facility] MCHC Auto (RBC) [Mass/Vol]Or dered By: Julee Davies on 06-24-2021 MCHC (RBC) [Mass/Vol] 32.7 g/dL 32.5-35.6 [facility] MCV Auto (RBC) [Entitic vol] Ordered By: Julee Davies on 06-24-2021 MCV (RBC) [Entitic vol] 84.6 fL 83.5-[address] [facility] Monocytes Auto (Bld) [#/Vol] Ordered By: Julee Davies on 06-24-2021 Monocytes (Bld) [#/Vol] 0.5 10*3/uL 0.0-0.8 [facility] Monocytes/100 WBC Auto (Bld) Ordered By: Julee Davies on 06-24-2021 Monocytes/100 WBC (Bld) 7.4 % F [facility] Neutrophils Auto (Bld) [#/Vo l]Ordered By: Julee Davies on 06-24-2021 Neutrophils (Bld) [#/Vol] 5.0 10*3/uL 1.8-7.7 [facility] Neutrophils/100 WBC Auto (Bl d)Ordered By: Julee Davies on 06-24-2021 Neutrophils/100 WBC (Bld) 75.4 % [facility] No Panel InformationOrdered By: Julee Davies on 06-24-2021 Estimated GFR () 36 mL/Min [facility] Comment on above: GFR estimated refere nce range: According to KDOQI guidelines, <60 ml/min/1.73m2 is sufficient to diagnose a patient with chronic kidney disease. Pharmacy Creatinine Clearance (Chem N/A [facility] Platelet mean volume Auto (B ld) [Entitic vol]Ordered By: Julee Davies on 06-24-2021 Platelet mean volume (Bld) [Entitic vol] 9.8 fL 6.6-10.1 [facility] Platelets Auto (Bld) [#/Vol] Ordered By: Julee Davies on 06-24-2021 Platelets (Bld) [#/Vol] 119 10*3/uL 150-450 [facility] Protein [Mass/volume] in Ser um or PlasmaOrdered By: Julee Davies on 06-24-2021 Protein [Mass/Vol] 5.3 g/dL 6.1-7.9 [facility] RBC Auto (Bld) [#/Vol]Ordere d By: Julee Davies on 06-24-2021 RBC (Bld) [#/Vol] 3.90 10*6/uL 3.90-5.60 [facility] Serum or plasma alanine lopez otransferase measurement without P-5'-P (enzymatic activiOrdered By: Julee Davies on 06-24-2021 ALT No additional P-5'-P [Catalytic activity/Vol] 7 U/L 10-60 [facility] Serum or plasma albumin/glob ulin mass ratioOrdered By: Julee Davies on 06-24-2021 Albumin/Globulin [Mass ratio] 1.2 {ratio} [facility] Serum or plasma alkaline cande sphatase measurement (enzymatic activity/volume)Ordered By: Julee Davies on 06-24-2021 ALP [Catalytic activity/Vol] 56 U/L 32-92 [facility] Serum or plasma aspartate am inotransferase measurement (enzymatic activity/volume)Ordered By: Julee Davies on 06-24-2021 AST [Catalytic activity/Vol] 13 U/L 10-42 [facility] Serum or plasma calcium abhijit urement (mass/volume)Ordered By: Julee Davies on 06-24-2021 Calcium [Mass/Vol] 8.9 mg/dL 8.2-10.2 [facility] Serum or plasma chloride marylin surement (moles/volume)Ordered By: Julee Davies on 06-24-2021 Chloride [Moles/Vol] 109 mmol/L 95-114 [facility] [place] Serum or plasma glucose abhijit urement (mass/volume)Ordered By: Julee Davies on 06-24-2021 Glucose [Mass/Vol] 160 mg/dL 70-100 [facility] Comment on above: ADA recommended refe rence rangeRandom Glucose Reference Range is dependent on time and content of last meal. Glucose of more than 200 mg/dL in a nonstressed, ambulatory subject supports the diagnosis of Diabetes Mellitus. Serum or plasma potassium me asurement (moles/volume)Ordered By: Julee Davies on 06-24-2021 Potassium [Moles/Vol] 4.1 mmol/L 3.5-5.1 [facility] Serum or plasma sodium measu rement (moles/volume)Ordered By: Julee Davies on 06-24-2021 Sodium [Moles/Vol] 144 mmol/L 136-146 [facility] Serum or plasma total biliru bin measurement (mass/volume)Ordered By: Julee Davies on 06-24-2021 Bilirubin [Mass/Vol] 0.5 mg/dL 0.3-1.2 [facility] [place] Serum or plasma total carbon dioxide measurement (moles/volume)Ordered By: Julee Davies on 06-24-2021 CO2 [Moles/Vol] 25.7 mmol/L 22.0-30.0 [facility] Serum or plasma urea nitroge n measurement (mass/volume)Ordered By: Julee Davies on 06-24-2021 Urea nitrogen [Mass/Vol] 43 mg/dL 9- [facility] Tacrolimus [Mass/volume] in BloodOrdered By: Julee Davies on 06-24-2021 Tacrolimus (Bld) [Mass/Vol] 8.1 ng/mL [facility] Comment on above: This test was vane christine and its performance characteristicsdetermined by [facility]. It has not been cleared orapproved by the Food and Drug Administration. Trough (immediately following transplant) 15.0 Trough (steady state, 2 weeks or more after transplant): 3.0 - 8.0 Performed by LC-MS/MS technology.Performed at: [address] [id number] Director: Mynor Nixon MD, Phone: [phone] Albumin [Mass/volume] in Ser um or PlasmaOrdered By: Julee Davies on 05-27-2021 Albumin [Mass/Vol] 3.1 g/dL 3.2-5.5 [facility] Basophils Auto (Bld) [#/Vol] Ordered By: Julee Davies on 05-27-2021 Basophils (Bld) [#/Vol] 0.0 10*3/uL 0.0-0.2 [facility] Basophils/100 WBC Auto (Bld) Ordered By: Julee Davies on 05-27-2021 Basophils/100 WBC (Bld) 0.7 % [facility] Blood hemoglobin measurement (mass/volume)Ordered By: Julee Davies on 05-27-2021 Hemoglobin (Bld) [Mass/Vol] 11.4 g/dL 13.0-17.0 [facility] Blood leukocytes automated c ount (number/volume)Ordered By: Julee Davies on 05-27-2021 WBC (Bld) [#/Vol] 6.1 10*3/uL 4.5-11.0 [facility] Cholesterol [Mass/volume] in Serum or PlasmaOrdered By: Julee Davies on 05-27-2021 Cholesterol [Mass/Vol] 129 mg/dL 140-200 [facility] Comment on above: Chol less than 200 m g/dl low riskChol 201-239 mg/dl borderline riskChol 240 mg/dl and greater high risk Cholesterol in LDL Calc [Mas s/Vol]Ordered By: Julee Davies on 05-27-2021 Cholesterol in LDL [Mass/Vol] 67 mg/dL 0-100 [facility] Comment on above: LDL ATP III CLASSIFI CATIONLDL less than 100 mg/dL OptimalLDL 100-129 mg/dL Near or above optimalLDL 130-159 mg/dL Borderline highLDL 160-189 mg/dL HighLDL greater than 189 mg/dL Very high Cholesterol in VLDL Calc [Ma ss/Vol]Ordered By: Julee Davies on 05-27-2021 Cholesterol in VLDL [Mass/Vol] 27 mg/dL [facility] Creatinine and Glomerular fi ltration rate.predicted panel (S/P/Bld)Ordered By: Julee Davies on 05-27-2021 Creatinine [Mass/Vol] 1.86 mg/dL 0.64-1.27 [facility] Eosinophils Auto (Bld) [#/Vo l]Ordered By: Julee Davies on 05-27-2021 Eosinophils (Bld) [#/Vol] 0.2 10*3/uL 0.0-0.45 [facility] Eosinophils/100 WBC Auto (Bl d)Ordered By: Julee Davies on 05-27-2021 Eosinophils/100 WBC (Bld) 3.7 % [facility] Erythrocyte distribution wid th Auto (RBC) [Ratio]Ordered By: Julee Davies on 05-27-2021 Erythrocyte distribution width (RBC) [Ratio] 14.9 % 12.0-14.8 [facility] Estimated glomerular filtrat ion rate (GFR) non- AmericanOrdered By: Julee Davies on 05-27-2021 GFR/1.73 sq M.predicted among non-blacks MDRD (S/P/Bld) [Vol rate/Area] 35 mL/Min [facility] Globulin Calc (S) [Mass/Vol] Ordered By: Julee Davies on 05-27-2021 Globulin (S) [Mass/Vol] 2.9 g/dL F [facility] Glucose mean value [Mass/vol ume] in Blood Estimated from glycated hemoglobinOrdered By: Julee Davies on 05-27-2021 Average glucose Estimated from glycated hemoglobin (Bld) [Mass/Vol] 209 mg/dL [facility] Hematocrit Auto (Bld) [Volum e fraction]Ordered By: Julee Davies on 05-27-2021 Hematocrit (Bld) [Volume fraction] 34.1 % 38.8-50.0 [facility] Hemoglobin A1c percentageOrd ered By: Julee Davies on 05-27-2021 HbA1c (Bld) [Mass fraction] 8.9 % 4.3-5.6 [facility] Comment on above: Increased risk for d iabetes: 5.7 - 6.4diabetes: >6.4glycemic control for adults with diabetes: <7.0 Laboratory - Hematology and Cell countsOrdered By: Julee Davies on 05-27-2021 Nucleated RBC/100 WBC (Bld) [Ratio] 0.2 % 0-0.5 [facility] Lymphocytes Auto (Bld) [#/Vo l]Ordered By: Julee Davies on 05-27-2021 Lymphocytes (Bld) [#/Vol] 1.1 10*3/uL 1.00-4.8 [facility] Lymphocytes/100 WBC Auto (Bl d)Ordered By: Julee Davies on 05-27-2021 Lymphocytes/100 WBC (Bld) 17.9 % [facility] MCH Auto (RBC) [Entitic mass ]Ordered By: Julee Davies on 05-27-2021 MCH (RBC) [Entitic mass] 28.3 pg 27.5-35.2 [facility] MCHC Auto (RBC) [Mass/Vol]Or dered By: Julee Davies on 05-27-2021 MCHC (RBC) [Mass/Vol] 33.5 g/dL 32.5-35.6 [facility] MCV Auto (RBC) [Entitic vol] Ordered By: Julee Davies on 05-27-2021 MCV (RBC) [Entitic vol] 84.5 fL 83.5-[address] [facility] Monocytes Auto (Bld) [#/Vol] Ordered By: Julee Davies on 05-27-2021 Monocytes (Bld) [#/Vol] 0.5 10*3/uL 0.0-0.8 [facility] Monocytes/100 WBC Auto (Bld) Ordered By: Julee Davies on 05-27-2021 Monocytes/100 WBC (Bld) 7.9 % [facility] Neutrophils Auto (Bld) [#/Vo l]Ordered By: Julee Davies on 05-27-2021 Neutrophils (Bld) [#/Vol] 4.3 10*3/uL 1.8-7.7 [facility] Neutrophils/100 WBC Auto (Bl d)Ordered By: Julee Davies on 05-27-2021 Neutrophils/100 WBC (Bld) 69.8 % [facility] No Panel InformationOrdered By: Julee Davies on 05-27-2021 25-Hydroxy Vitamin D Total 23.8 ng/mL 30-100 [facility] Comment on above: VITAMIN D STATUS 25( [place])VITAMIN D RANGE (ng/mL) Deficient <20 Insufficient 20 to <30Sufficient 30 to 100Reference: Ely MF,Brad NC, Kristy ORTEGA, et al. Evaluation,treatment, and prevention of vitamin D deficiency; an Endocrine Society clinical practice guideline. JCEM. 2010; 96(7):1911-30. Estimated GFR () 43 mL/Min [facility] Comment on above: GFR estimated refere nce range: According to KDOQI guidelines, <60 ml/min/1.73m2 is sufficient to diagnose a patient with chronic kidney disease. Pharmacy Creatinine Clearance (Chem N/A [facility] Platelet Estimate Decreased Normal [facility] Platelet Morphology Comment Normal Normal [facility] Platelet mean volume Auto (B ld) [Entitic vol]Ordered By: Julee Davies on 05-27-2021 Platelet mean volume (Bld) [Entitic vol] 10.6 fL 6.6-10.1 [facility] Platelets Auto (Bld) [#/Vol] Ordered By: Julee Davies on 05-27-2021 Platelets (Bld) [#/Vol] 129 10*3/uL 150-450 [facility] Protein [Mass/volume] in Ser um or PlasmaOrdered By: Juele Davies on 05-27-2021 Protein [Mass/Vol] 6.0 g/dL 6.1-7.9 [facility] RBC Auto (Bld) [#/Vol]Ordere d By: Julee Davies on 05-27-2021 RBC (Bld) [#/Vol] 4.03 10*6/uL 3.90-5.60 [facility] RBC morphologyOrdered By: Maurice Davies on 05-27-2021 RBC morphology finding Nom (Bld) Normal [facility] Serum or plasma alanine lopez otransferase measurement without P-5'-P (enzymatic activiOrdered By: Julee Davies on 05-27-2021 ALT No additional P-5'-P [Catalytic activity/Vol] 7 U/L 10-60 [facility] Serum or plasma albumin/glob ulin mass ratioOrdered By: Julee Davies on 05-27-2021 Albumin/Globulin [Mass ratio] 1.1 {ratio} [facility] Serum or plasma alkaline cande sphatase measurement (enzymatic activity/volume)Ordered By: Julee Davies on 05-27-2021 ALP [Catalytic activity/Vol] 52 U/L 32-92 [facility] Serum or plasma aspartate am inotransferase measurement (enzymatic activity/volume)Ordered By: Julee Davies on 05-27-2021 AST [Catalytic activity/Vol] 11 U/L 10-42 [facility] Serum or plasma calcium abhijit urement (mass/volume)Ordered By: Julee Davies on 05-27-2021 Calcium [Mass/Vol] 9.0 mg/dL 8.2-10.2 [facility] Serum or plasma chloride marylin surement (moles/volume)Ordered By: Julee Davies on 05-27-2021 Chloride [Moles/Vol] 104 mmol/L 95-114 [facility] [place] Serum or plasma glucose abhijit urement (mass/volume)Ordered By: Julee Davies on 05-27-2021 Glucose [Mass/Vol] 183 mg/dL 70-100 [facility] Comment on above: ADA recommended refe rence rangeRandom Glucose Reference Range is dependent on time and content of last meal. Glucose of more than 200 mg/dL in a nonstressed, ambulatory subject supports the diagnosis of Diabetes Mellitus. Serum or plasma high density lipoprotein (HDL) cholesterol measurementOrdered By: Julee Davies on 05-27-2021 Cholesterol in HDL [Mass/Vol] 35 mg/dL 29-71 [facility] Comment on above: HDL CHOL ATP-III CLA SSIFICATION Cardiovascular RiskHDL > or equal to 60 mg/dL LOWHDL < 40 mg/dL HIGH Serum or plasma potassium me asurement (moles/volume)Ordered By: Julee Davies on 05-27-2021 Potassium [Moles/Vol] 4.1 mmol/L 3.5-5.1 [facility] Serum or plasma sodium measu rement (moles/volume)Ordered By: Julee Davies on 05-27-2021 Sodium [Moles/Vol] 140 mmol/L 136-146 [facility] Serum or plasma total biliru bin measurement (mass/volume)Ordered By: Julee Davies on 05-27-2021 Bilirubin [Mass/Vol] 0.4 mg/dL 0.3-1.2 [facility] Serum or plasma total carbon dioxide measurement (moles/volume)Ordered By: Julee Davies on 05-27-2021 CO2 [Moles/Vol] 26.1 mmol/L 22.0-30.0 [facility] Serum or plasma total choles terol/high density lipoprotein (HDL) cholesterol mass ratOrdered By: Julee Davies on 05-27-2021 Cholesterol.total/Denise sterol in HDL [Mass ratio] 3.7 {ratio} [facility] Serum or plasma urea nitroge n measurement (mass/volume)Ordered By: Julee Davies on 05-27-2021 Urea nitrogen [Mass/Vol] 38 mg/dL 9-23 [facility] TSH DL <= 0.005 mIU/L QnOrde red By: Julee Davies on 05-27-2021 TSH Qn 4.10 m[IU]/L 0.45-5.33 [facility] Triglyceride [Mass/volume] i n Serum or PlasmaOrdered By: Julee Davies on 05-27-2021 Triglyceride [Mass/Vol] 136 mg/dL 35-[address] [facility] Comment on above: TRIG ATP III CLASSIF [...] haryngealReference Range: Not Detected.This test has received [facility] Emergency Use Authorization (EUA) and has been verified by [facility] ([facility]). This test is only authorized for the duration of time that circumstances exist to justify the authorization of the emergency use of in vitro diagnostic tests for the detection of SARS-CoV-2 virus and/or diagnosis of COVID-19 infection under section 564(b)(1) of the Act, 21 U.S.C. 360bbb-3(b)(1), unless the authorization is terminated or revoked sooner. [facility] is certified under CLIA-88 as qualified to perform high complexity testing. Testing is performed in the [facility] located at [address] [place] [address].SARS-CoV-2/Flu/RSV Multiplex Test: Fact sheet for providers: https://www.fda.gov/media/262192/downloadFact sheet for patients: https://www.fda.gov/media/142583/download Coronavirus 2019 RNA by PCR, Screening Asymptomtic Canceled [facility] [address] DO Work Phone: Comment on above: SOURCE: Nasal, Nasop haryngeal.This test has received FDA Emergency Use Authorization (EUA) and has been verified by [facility] ([facility]). This test is only authorized for the duration of time that circumstances exist to justify the authorization of the emergency use of in vitro diagnostic tests for the detection of SARS-CoV-2 virus and/or diagnosis of COVID-19 infection under section 564(b)(1) of the Act, 21 U.S.C. 360bbb-3(b)(1), unless the authorization is terminated or revoked sooner. [facility] is certified under CLIA-88 as qualified to perform high complexity testing. Testing is performed in the [facility] located at [address] [place] [address].SARS-CoV-2/Flu/RSV Multiplex Test: Fact sheet for providers: https://www.fda.gov/media/132266/downloadFact sheet for patients: https://www.fda.gov/media/789684/download Laboratory - Chemistry and C hemistry - challengeon 12-24-2020 Glucose [Mass/Vol] 203 mg/dL above high threshold 74 - 99 [facility] DO Work Phone: Laboratory - Hematology and Cell countson 12-24-2020 Erythrocyte distribution width (RBC) [Ratio] 12.7 % See Below [facility] DO Work Phone: Comment on [...] lo w threshold 150 - 450 [facility] [address] DO Work Phone: [phone] RBC (Bld) [#/Vol] 3.92 {x10E12/L} below low threshold See Below [facility] [address] DO Work Phone: Comment on above: Reference Range: 4.5 0 - 5.90 WBC (Bld) [#/Vol] 5.1 10*3/uL 4.4 - 11.3 [facility] [address] DO Work Phone: [phone] No Panel Informationon 12-24 Please click on the link to view the study images Normal [facility] [address] DO Work Phone: 0.0 {/100_WBC} 0.0-0.0 [facility] [address] DO Work Phone: [phone] Renal Function Panelon 12-24 Albumin BCP dye [Mass/Vol] 3.6 g/dL 3.4 - 5.0 [facility] 260 DO Work Phone: Anion gap [Moles/Vol] 15 mmol/L 10 - 20 [facility] DO Work Phone: [phone] Calcium [Mass/Vol] 9.0 mg/dL 8.6 - 10.6 [facility] [address] DO Work Phone: [phone] Chloride [Moles/Vol] 109 mmol/L above high threshold 98 - 107 [facility] DO Work Phone: CO2 [Moles/Vol] 24 mmol/L 21 - 32 [facility] DO Work Phone: Creatinine [Mass/Vol] [...] Function Panel 45 {mL/min/1.73m2} Abnormal >60 [facility] DO Work Phone: Comment on above: CALCULATIONS OF ERNST MATED GFR ARE PERFORMED USING THE MDRD STUDY EQUATION FOR THE IDMS-TRACEABLE CREATININE METHODS. CLIN CHEM 2007;53:766-72 Renal Function Panel 37 {mL/min/1.73m2} Abnormal >60 [facility] 260 DO Work Phone: Tacrolimuson 12-24-2020 Tacrolimus (Bld) [Mass/Vol] 5.4 ng/mL 2.0 - 15.0 [facility] DO Work Phone: Comment on above: NOTE: Result was obt ained using a chemiluminescent microparticle immunoassay (CMIA) on the [employer] i system.Optimal therapeutic ranges for immuno-suppressant drugs depend upon an individualpatient's current clinical state, type oforgan transplant, time post-transplant,co-administration of other immunosuppressants,and other clinical factors. The results ofthis test should be correlated with additionalclinical and laboratory data before changesin treatment regimens are made. CT Head without Contraston 1 CT Head limited WO contrast Normal [facility] [address] DO Work Phone: [phone] Laboratory - Chemistry and C hemistry - challengeon 12-23-2020 Glucose [Mass/Vol] 151 mg/dL above high threshold 74 - 99 [facility] DO Work Phone: [phone] Glucose [Mass/Vol] 241 mg/dL above high threshold 74 - 99 [facility] DO Work Phone: [phone] Glucose [Mass/Vol] 195 mg/dL above high threshold 74 - 99 [facility] [address] DO Work Phone: [phone] Glucose [Mass/Vol] 160 mg/dL above high threshold 74 - 99 [facility] DO Work Phone: [phone] Laboratory - Hematology and Cell countson 12-23-2020 Erythrocyte distribution width (RBC) [Ratio] 12.5 % See Below [facility] DO Work Phone: [phone] Comment on above: Reference Range: 11. 5 - 14.5 Hematocrit (Bld) [Volume fraction] 34.3 % below low threshold See Below [facility] DO Work Phone: [phone] Comment on above: Reference Range: 41. 0 - 52.0 Hemoglobin (Bld) [Mass/Vol] 11.1 g/dL below low threshold See Below [facility] DO Work Phone: [phone] Comment on above: Reference Range: 13. 5 - 17.5 MCHC (RBC) [Mass/Vol] 32.4 g/dL See Below [facility] DO Work Phone: [phone] Comment on above: Reference Range: 32. 0 - 36.0 MCV (RBC) [Entitic vol] 90 fL 80 - 100 [facility] 260 DO Work Phone: [phone] Platelets (Bld) [#/Vol] 106 10*3/uL below lo w threshold 150 - 450 [facility] SJW 260 DO Work Phone: [phone] RBC (Bld) [#/Vol] 3.83 {x10E12/L} below low threshold See Below MG-Cardiolo gy-Ellyn SJW 260 DO Work Phone: [phone] Comment on above: Reference Range: 4.5 0 - 5.90 WBC (Bld) [#/Vol] 5.2 10*3/uL 4.4 - 11.3 MG-Car diolo gy-Parker SJW 260 DO Work Phone: [phone] No Panel Informationon 12-23 0.0 {/100_WBC} 0.0-0.0 MG-Cardiol o gy-Ellyn SJW 260 DO Work Phone: [phone] Renal Function Panelon 12-23 Albumin BCP dye [Mass/Vol] 3.6 g/dL 3.4 - 5.0 MG-Cardiolo gy-Parker SJW 260 DO Work Phone: [phone] Anion gap [Moles/Vol] 14 mmol/L 10 - 20 MG- Cardiolo gy-Ellyn SJW 260 DO Work Phone: [phone] Calcium [Mass/Vol] 8.9 mg/dL 8.6 - 10.6 MG-Car diolo gy-Parker SJW 260 DO Work Phone: [phone] Chloride [Moles/Vol] 109 mmol/L above high threshold 98 - 107 MG-Cardiolo gy-Parker SJW 260 DO Work Phone: [phone] CO2 [Moles/Vol] 23 mmol/L 21 - 32 MG-Cardio lo gy-Ellyn SJW 260 DO Work Phone: [phone] Creatinine [Mass/Vol] 1.71 mg/dL above high threshold See Below MG-Cardiolo gy-Ellyn SJW 260 DO Work Phone: Comment on above: Reference Range: 0.5 0 - 1.30 Glucose [Mass/Vol] 146 mg/dL above high threshold 74 - 99 MG-Cardiolo gy-Parker SJW 260 DO Work Phone: Phosphate [Mass/Vol] [...] 4.2 mmol/L 3.5 - 5.3 MG- Cardiolo gy-Parker SJW 260 DO Work Phone: Sodium [Moles/Vol] 142 mmol/L 136 - 145 MG-Car diolo gy-Parker SJW 260 DO Work Phone: Urea nitrogen [Mass/Vol] 50 mg/dL above high threshold 6 - 23 MG-Cardiolo gy-Parker SJW 260 DO Work Phone: Renal Function Panel 47 {mL/min/1.73m2} Abnormal >60 MG-Cardiolo gy-Parker SJW 260 DO Work Phone: Comment on above: CALCULATIONS OF ERNST MATED GFR ARE PERFORMED USING THE MDRD STUDY EQUATION FOR THE IDMS-TRACEABLE CREATININE METHODS. CLIN CHEM 2007;53:766-72 Renal Function Panel 39 {mL/min/1.73m2} Abnormal >60 MG-Cardiolo gy-Parker SJW 260 DO Work Phone: Tacrolimuson 12-23-2020 Tacrolimus (Bld) [Mass/Vol] 5.9 ng/mL 2.0 - 15.0 MG-Cardiolo gy-Parker SJW 260 DO Work Phone: Comment on above: NOTE: Result was obt ained using a chemiluminescent microparticle immunoassay (CMIA) on the [employer] system.Optimal therapeutic ranges for immuno-suppressant drugs [...] MG-Cardiolo gy-Ellyn SJW 260 DO Work Phone: [phone] Glucose [Mass/Vol] 217 mg/dL above high threshold 74 - 99 MG-Cardiolo gy-Ellyn SJW 260 DO Work Phone: [phone] Glucose [Mass/Vol] 145 mg/dL above high threshold 74 - 99 MG-Cardiolo gy-Ellyn SJW 260 DO Work Phone: Glucose [Mass/Vol] 142 mg/dL above high threshold 74 - 99 MG-Cardiolo gy-Parker SJW 260 DO Work Phone: Laboratory - Hematology and Cell countson 12-22-2020 Erythrocyte distribution width (RBC) [Ratio] 12.6 % See Below MG-Cardiolo gy-Parker SJW 260 DO Work Phone: Comment on above: Reference Range: 11. 5 - 14.5 Hematocrit (Bld) [Volume fraction] 33.0 % below low threshold See Below MG-Cardiolo gy-Parker SJW 260 DO Work Phone: Comment on above: Reference Range: 41. 0 - 52.0 Hemoglobin (Bld) [Mass/Vol] 10.7 g/dL below low threshold See Below MG-Cardiolo gy-Ellyn SJW 260 DO Work Phone: Comment on above: Reference Range: 13. 5 - 17.5 MCHC (RBC) [Mass/Vol] 32.4 g/dL See Below MG- Cardiolo gy-Ellyn SJW 260 DO Work Phone: [phone] Comment on above: Reference Range: 32. 0 - 36.0 MCV (RBC) [Entitic vol] 91 fL 80 - 100 M G-Cardiolo gy-Parker SJW 260 DO Work Phone: [phone] Platelets (Bld) [#/Vol] 107 10*3/uL below lo w threshold 150 - 450 MG-Cardiolo gy-Parker SJW 260 DO Work Phone: [phone] RBC (Bld) [#/Vol] 3.62 {x10E12/L} below low threshold See Below MG-Cardiolo gy-Parker SJW 260 DO Work Phone: [phone] Comment on above: Reference Range: 4.5 0 - 5.90 WBC (Bld) [#/Vol] 5.0 10*3/uL 4.4 - 11.3 MG-Car diolo gy-Parker SJW 260 DO Work Phone: [phone] Panel Informationon 12-22 0.0 {/100_WBC} 0.0-0.0 MG-Cardiol o gy-Parker SJW 260 DO Work Phone: [phone] Renal Function Panelon 12-22 Albumin BCP dye [Mass/Vol] 3.5 g/dL 3.4 - 5.0 MG-Cardiolo gy-Ellyn SJW 260 DO Work Phone: [phone] Anion gap [Moles/Vol] 15 mmol/L 10 - 20 MG- Cardiolo gy-Ellyn SJW 260 DO Work Phone: [phone] Calcium [Mass/Vol] 8.9 mg/dL 8.6 - 10.6 MG-Car diolo gy-Parker SJW 260 DO Work Phone: [phone] Chloride [Moles/Vol] 111 mmol/L above high threshold 98 - 107 MG-Cardiolo gy-Parker SJW 260 DO Work Phone: [phone] CO2 [Moles/Vol] 23 mmol/L 21 - 32 MG-Cardio lo gy-Parker SJW 260 DO Work Phone: [phone] Creatinine [Mass/Vol] 2.04 mg/dL above high threshold See Below MG-Cardiolo gy-Parker SJW 260 DO Work Phone: Comment on above: Reference Range: 0.5 0 - 1.30 Glucose [Mass/Vol] 131 mg/dL above high threshold 74 - 99 MG-Cardiolo gy-Ellyn SJW 260 DO Work Phone: Phosphate [Mass/Vol] 3.3 mg/dL 2.5 - 4.9 MG-C ardiolo gy-Parker SJW 260 DO Work Phone: Comment on [...] Function Panel 32 {mL/min/1.73m2} Abnormal >60 MG-Cardiolo gy-Parker SJW 260 DO Work Phone: Tacrolimuson 12-22-2020 Tacrolimus (Bld) [Mass/Vol] 5.5 ng/mL 2.0 - 15.0 MG-Cardiolo gy-Ellyn SJW 260 DO Work Phone: Comment on above: NOTE: Result was obt ained using a chemiluminescent microparticle immunoassay (CMIA) on the [employer] system.Optimal therapeutic ranges for immuno-suppressant drugs [...] Phone: HbA1c (Bld) [Mass fraction] Canceled MG-Cardiolo gy-Parker SJW 260 DO Work Phone: Comment on above: Diagnosis of Diabete s-Adults Non-Diabetic: < or = 5.6% Increased risk for developing diabetes: 5.7-6.4% Diagnostic of diabetes: > or = 6.5%. Monitoring of Diabetes Age (y) Therapeutic Goal (%) Adults: >18 <7.0 Pediatrics: 13-18 <7.5 7-12 <8.0 0- 6 7.5-8.5 [employer]. Diabetes Care 33(S1), Mar 2009. [...] 13-18 <7.5 7-12 <8.0 0- 6 7.5-8.5 [place] [employer]. Diabetes Care 33(S1), Mar 2009. Hemoglobin A1C Canceled MG-Cardiol o gy-Parker SJW 260 DO Work Phone: Laboratory - Chemistry and C hemistry - challengeon 12-21-2020 Glucose [Mass/Vol] 191 mg/dL above high threshold 74 - 99 MG-Cardiolo gy-Ellyn SJW 260 DO Work Phone: Glucose [Mass/Vol] 203 mg/dL above high threshold 74 - 99 MG-Cardiolo gy-Ellyn SJW 260 DO Work Phone: [phone] Glucose [Mass/Vol] 229 mg/dL above high threshold 74 - 99 MG-Cardiolo gy-Ellyn SJW 260 DO Work Phone: Glucose [Mass/Vol] 136 mg/dL above high threshold 74 - 99 MG-Cardiolo gy-Parker SJW 260 DO Work Phone: Laboratory - [...] G-Cardiolo gy-Ellyn SJW 260 DO Work Phone: [phone] Platelets (Bld) [#/Vol] 124 10*3/uL below lo w threshold 150 - 450 MG-Cardiolo gy-Ellyn SJW 260 DO Work Phone: [phone] RBC (Bld) [#/Vol] 4.01 {x10E12/L} below low threshold See Below MG-Cardiolo gy-Parker SJW 260 DO Work Phone: [phone] Comment on above: Reference Range: 4.5 0 - 5.90 WBC (Bld) [#/Vol] 6.2 10*3/uL 4.4 - 11.3 MG-Car diolo gy-Ellyn SJW 260 DO Work Phone: [phone] No Panel Informationon 12-21 0.0 {/100_WBC} 0.0-0.0 MG-Cardiol o gy-Ellyn SJW 260 DO Work Phone: [phone] Renal Function Panelon 12-21 Albumin BCP dye [Mass/Vol] 3.8 g/dL 3.4 - 5.0 MG-Cardiolo gy-Parker SJW 260 DO Work Phone: [phone] Anion gap [Moles/Vol] 15 mmol/L 10 - 20 MG- Cardiolo gy-Parker SJW 260 DO Work Phone: [phone] Calcium [Mass/Vol] 8.8 mg/dL 8.6 - 10.6 MG-Car diolo gy-Parker SJW 260 DO Work Phone: [phone] Chloride [Moles/Vol] 110 mmol/L above high threshold 98 - 107 MG-Cardiolo gy-Ellyn SJW 260 DO Work Phone: [phone] CO2 [Moles/Vol] 23 mmol/L 21 - 32 MG-Cardio lo gy-Parker SJW 260 DO Work Phone: [phone] Creatinine [Mass/Vol] 2.22 mg/dL above high threshold See Below MG-Cardiolo gy-Parker SJW 260 DO Work Phone: [phone] Comment on above: Reference Range: 0.5 0 - 1.30 Glucose [Mass/Vol] 114 mg/dL above high threshold 74 - 99 MG-Cardiolo gy-Ellyn SJW 260 DO Work Phone: Phosphate [Mass/Vol] 3.6 mg/dL 2.5 - 4.9 MG-C ardiolo gy-Parker SJW 260 DO Work Phone: Comment on above: The performance waqar acteristics of phosphorus testing in heparinized plasma have been validated by the individual laboratory site where testing is performed. Testing on heparinized plasma is not approved by the FDA; however, such approval is not necessary. Potassium [Moles/Vol] 4.1 mmol/L 3.5 - 5.3 MG- Cardiolo gy-Parker SJW 260 DO Work Phone: Sodium [Moles/Vol] 144 mmol/L 136 - 145 MG-Car diolo gy-Ellyn SJW 260 DO Work Phone: Urea nitrogen [Mass/Vol] 68 mg/dL above high threshold 6 - 23 MG-Cardiolo gy-Parker SJW 260 DO Work Phone: Renal Function Panel 35 {mL/min/1.73m2} Abnormal >60 MG-Cardiolo gy-Ellyn SJW 260 DO Work Phone: Comment on above: CALCULATIONS OF ERNST MATED GFR ARE PERFORMED USING THE MDRD STUDY EQUATION FOR THE IDMS-TRACEABLE CREATININE METHODS. CLIN CHEM 2007;53:766-72 Renal Function Panel 29 {mL/min/1.73m2} Abnormal >60 MG-Cardiolo gy-Parker SJW 260 DO Work Phone: Tacrolimuson 12-21-2020 Tacrolimus (Bld) [Mass/Vol] 6.8 ng/mL 2.0 - 15.0 MG-Cardiolo gy-Parker SJW 260 DO Work Phone: Comment on above: NOTE: Result was obt ained using a chemiluminescent microparticle immunoassay (CMIA) on the [employer] system.Optimal therapeutic ranges for immuno-suppressant drugs depend upon an individualpatient's current clinical state, type oforgan transplant, time post-transplant,co-administration of other immunosuppressants,and other clinical factors. The results ofthis test should be correlated with additionalclinical and laboratory data before changesin treatment regimens are made. Coronavirus 2019 RNA by PCR, Symptomaticon 12-20-2020 Coronavirus 2019 RNA by PCR, Symptomatic Not detected Normal See Below MG-Cardiolo gy-Parker SJW 260 DO Work Phone: Comment on above: SOURCE: Nasal, Nasop haryngealReference Range: Not Detected.This test has received FDA Emergency Use Authorization (EUA) and has been verified by [facility] ([facility]). This test is only authorized for the duration of time that circumstances exist to justify the authorization of the emergency use of in vitro diagnostic tests for the detection of SARS-CoV-2 virus and/or diagnosis of COVID-19 infection under section 564(b)(1) of the Act, 21 U.S.C. 360bbb-3(b)(1), unless the authorization is terminated or revoked sooner. [facility] is certified under CLIA-88 as qualified to perform high complexity testing. Testing is performed in the [facility] located at [address] [place] [address].SARS-CoV-2/Flu/RSV Multiplex Test: Fact sheet for providers: https://www.fda.gov/media/567195/downloadFact sheet for patients: https://www.fda.gov/media/905180/download Date and time of symptom onset Canceled MG-Cardiolo gy-Ellyn SJW 260 DO Work Phone: Coronavirus 2019 RNA by PCR, Symptomatic Canceled MG-Cardiolo gy-Parker SJW 260 DO Work Phone: Comment on [...] this test method. Fact sheet for providers: www.fda.gov/media/201515/downloadFact sheet for patients: www.fda.gov/media/536146/downloadThis test has received FDA Emergency Use Authorization (EUA) and has been verified by [facility] ([facility]). This test is only authorized for the duration of time that circumstances exist to justify the authorization of the emergency use of in vitro diagnostic tests for the detection of SARS-CoV-2 virus and/or diagnosis of COVID-19 infection under section 564(b)(1) of the Act, 21 U.S.C. 360bbb-3(b)(1), unless the authorization is terminated or revoked sooner. [facility] is certified under CLIA-88 as qualified to perform high complexity testing. Testing is performed in the [facility] laboratories located at [address] [place] [address]. Folate, Serumon 12-20-2020 Folate [Mass/Vol] ng/mL >5.0 MG-Card iolo gy-Parker SJW 260 DO Work Phone: Comment on [...] TSH Qn 2.00 m[IU]/L See Below MG-Cardiolo gy-Parker SJW 260 DO Work Phone: Comment on above: Reference Range: 0.4 4 - 3.98 TSH testing is performed using different testing methodology at [facility] than at other [facility]. Direct result comparisons should only be [...] MG-Cardiolo gy-Ellyn SJW 260 DO Work Phone: [phone] PT Coag (PPP) [Time] Canceled MG-C ardiolo gy-Parker SJW 260 DO Work Phone: [phone] Laboratory - Hematology and Cell countson 12-20-2020 Erythrocyte distribution width (RBC) [Ratio] 12.9 % See Below MG-Cardiolo gy-Ellyn SJW 260 DO Work Phone: [phone] Comment on above: Reference Range: 11. 5 - 14.5 Hematocrit (Bld) [Volume fraction] 35.8 % below low threshold See Below MG-Cardiolo gy-Parker SJW 260 DO Work Phone: [phone] Comment on above: Reference Range: 41. 0 - 52.0 Hemoglobin (Bld) [Mass/Vol] 11.7 g/dL below low threshold See Below MG-Cardiolo gy-Ellyn SJW 260 DO Work Phone: [phone] Comment on above: Reference Range: 13. 5 - 17.5 MCHC (RBC) [Mass/Vol] 32.7 g/dL See Below MG- Cardiolo gy-Parker SJW 260 DO Work Phone: [phone] Comment on above: Reference Range: 32. 0 - 36.0 MCV (RBC) [Entitic vol] 90 fL 80 - 100 M G-Cardiolo gy-Ellyn SJW 260 DO Work Phone: [phone] Platelets (Bld) [#/Vol] 131 10*3/uL below lo w threshold 150 - 450 MG-Cardiolo gy-Ellyn SJW 260 DO Work Phone: [phone] RBC (Bld) [#/Vol] 3.97 {x10E12/L} below low [...] above: . <100 pg/mL - Heart failure peuoavms931-451 pg/mL - Intermediate probability of acute heart. [...] Radiologyon 12-20-2020 XR Abdomen AP Normal MG-Cardiolo gy-Parker SJW 260 DO Work Phone: XR Chest [...] 9.2 mg/dL 8.6 - 10.6 MG-Car diolo gy-Parker SJW 260 DO Work Phone: [phone] Chloride [Moles/Vol] 112 mmol/L above high threshold 98 - 107 MG-Cardiolo gy-Parker SJW 260 DO Work Phone: [phone] CO2 [Moles/Vol] 24 mmol/L 21 - 32 MG-Cardio lo gy-Parker SJW 260 DO Work Phone: [phone] Creatinine [Mass/Vol] 2.40 mg/dL above high threshold See Below MG-Cardiolo gy-Parker SJW 260 DO Work Phone: [phone] Comment on above: Reference Range: 0.5 0 - 1.30 Glucose [Mass/Vol] 211 mg/dL above high threshold 74 - 99 MG-Cardiolo gy-Ellyn SJW 260 DO Work Phone: [phone] Phosphate [Mass/Vol] 4.5 mg/dL 2.5 - 4.9 MG-C ardiolo gy-Parker SJW 260 DO Work Phone: [phone] Comment on above: The performance waqar acteristics [...] above high threshold 136 - 145 MG-Cardiolo gy-Parker SJW 260 DO Work Phone: [phone] Urea nitrogen [Mass/Vol] 74 mg/dL above high threshold 6 - 23 MG-Cardiolo gy-Parker SJW 260 DO Work Phone: Renal Function Panel 31 {mL/min/1.73m2} Abnormal >60 MG-Cardiolo gy-Parker SJW 260 DO Work Phone: Comment on [...] a chemiluminescent microparticle immunoassay (CMIA) on the [employer] system.Optimal therapeutic ranges for immuno-suppressant drugs depend upon an individualpatient's current clinical state, type oforgan transplant, time post-transplant,co-administration of other immunosuppressants,and other clinical factors. The results ofthis test should be correlated with additionalclinical and laboratory data before changesin treatment regimens are made. Troponin I, Serumon 12-21-19 Troponin I.cardiac [Mass/Vol] 0.02 ng/mL See Below MG-Cardiolo gy-Parker SJW 260 DO Work Phone: Comment on [...] is performed using different testing methodology at [facility] than at other [facility] hospitals. Direct result comparisons should only [...] above high threshold 211 - 911 MG-Cardiolo woo-Parker SJW [address] [employer] Work Phone: Basic Metabolic PanelOrdered By: Manuel Conner on 12-19-2020 Anion gap [Moles/Vol] 11 mmol/L 9 - 17 mmol/L [employer] Phone: Calcium [Mass/Vol] 9.3 mg/dL 8.6 - 10. 4 mg/dL [employer] Phone: Chloride [Moles/Vol] 107 mmol/L 98 - 10 7 mmol/L [employer] Phone: CO2 [Moles/Vol] 23 mmol/L 20 - 31 mmol/L [employer] Phone: Creatinine [Mass/Vol] 2.53 mg/dL High 0.70 - 1.20 mg/dL [employer] Phone: GFR 30 mL/min Low >60 [employer] Phone: GFR Non- 25 mL/min Low >60 [employer] Phone: Glucose [Mass/Vol] 160 mg/dL High 70 - 99 mg/dL [employer] Phone: Interpretation and review of laboratory results Abnormal [employer] Phone: Potassium [Moles/Vol] 4.5 mmol/L 3.7 - 5.3 mmol/L [employer] Phone: Sodium [Moles/Vol] 141 mmol/L 135 - 144 mmol/L [employer] Phone: Urea nitrogen (BldV) [Mass/Vol] 76 mg/dL High 8 - 23 mg/dL [employer] Phone: Urea nitrogen/Creatinine (Bld) [Mass ratio] 30 High [employer] Phone: [employer] Phone: Laboratory - Chemistry and C hemistry - challengeOrdered By: Manuel Conner on 12-19-2020 GFR/1.73 sq M.predicted MDRD (S/P/Bld) [Vol rate/Area] [employer] Phone: Comment on above: Average GFR for 70 o r more years old: 75 mL/min/1.73sq m Chronic Kidney Disease: <60 mL/min/1.73sq m Kidney failure: <15 mL/min/1.73sq m eGFR calculated using average adult body mass. Additional eGFR calculator available at: http://www.ShowEvidence/Spool_crcl_2012.htm Stage 1: Some kidney damage normal GFR Stage 2: Mild kidney damage GFR 60-89 Stage 3: Moderate kidney damage GFR 30-59 Stage 4: Severe kidney damage GFR 15-29 Stage 5: Severe kidney damage GFR <15 ESRD - chronic treatment by dialysis or transplant TroponinOrdered By: Manuel Conner on 12-19-2020 Interpretation and review of laboratory results Abnormal [employer] Phone: Troponin Interp NOT REPORTED [employer] Phone: Troponin T NOT REPORTED <0.03 ng/mL [employer] Phone: Troponin, High Sensitivity 57 ng/L Critically high 0 - 22 ng/L [employer] Phone: Comment on above: High Sensitivity Troponin values cannot be compared with other Troponin methodologies. Patients with high levels of Biotin oral intake (i.e >5mg/day) may have falsely decreased Troponin levels. Samples collected within 8 hours of biotin intake may require additional information for diagnosis. [employer] Phone: Basic Metabolic PanelOrdered By: Manuel Conner on 12-18-2020 Anion gap [Moles/Vol] 14 mmol/L 9 - 17 mmol/L [employer] Phone: Calcium [Mass/Vol] 9.3 mg/dL 8.6 - 10. 4 mg/dL [employer] Phone: Chloride [Moles/Vol] 104 mmol/L 98 - 10 7 mmol/L [employer] Phone: CO2 [Moles/Vol] 22 mmol/L 20 - 31 mmol/L [employer] Phone: Creatinine [Mass/Vol] 4.1 mg/dL High 0.70 - 1.20 mg/dL [employer] Phone: GFR 17 mL/min Low >60 [employer] Phone: GFR Non- 14 mL/min Low >60 [employer] Phone: Glucose [Mass/Vol] 148 mg/dL High 70 - 99 mg/dL [employer] Phone: Potassium [Moles/Vol] 5.2 mmol/L 3.7 - 5.3 mmol/L [employer] Phone: Sodium [Moles/Vol] 140 mmol/L 135 - 144 mmol/L [employer] Phone: Urea nitrogen (BldV) [Mass/Vol] 87 mg/dL High 8 - 23 mg/dL [employer] Phone: Urea nitrogen/Creatinine (Bld) [Mass ratio] 21 High [employer] Phone: Brain Natriuretic PeptideOrd ered By: Manuel Conner on 12-18-2020 BNP Interpretation Pro-BNP Reference Range: [employer] Phone: Comment on above: Rule Out: <300 Pagan Zone: Age <50 300-450 Age 50-75 300-900 Age >75 300-1800 Usually represents mild to moderate HF but other cardiopulmonary causes cannot be ruled out. Rule In: Age <50 >450 Age 50-75 >900 Age >75 >1800 Interpretation and review of laboratory results Abnormal [employer] Phone: Natriuretic peptide B (Bld) [Mass/Vol] 846 pg/mL High <300 [employer] Phone: Comment on above: Pro-BNP results halie ot be compared to BNP results. [employer] Phone: EKG Rhythm StripOrdered By: Unknown Result on 12-18-2020 [employer] Phone: [employer] Phone: Glucose, Whole BloodOrdered By: Manuel Conner on 12-18-2020 Glucose [Mass/Vol] 152 mg/dL High 74 - 100 mg/dL [employer] Phone: Interpretation and review of laboratory results Abnormal [employer] Phone: [employer] Phone: Laboratory - Chemistry and C hemistry - challengeOrdered By: Manuel Conner on 12-18-2020 GFR/1.73 sq M.predicted MDRD (S/P/Bld) [Vol rate/Area] [employer] Phone: Comment on above: Average GFR for 70 o r more years old: 75 mL/min/1.73sq m Chronic Kidney Disease: <60 mL/min/1.73sq m Kidney failure: <15 mL/min/1.73sq m eGFR calculated using average adult body mass. Additional eGFR calculator available at: http://www.[address].MaestroDev/multiple_crcl_2012.htm Stage 1: Some kidney damage normal GFR Stage 2: Mild kidney damage GFR 60-89 Stage 3: Moderate kidney damage GFR 30-59 Stage 4: Severe kidney damage GFR 15-29 Stage 5: Severe kidney damage GFR <15 ESRD - chronic treatment by dialysis or transplant No Panel InformationOrdered By: Manuel Conner on 12-18-2020 Interpretation and review of laboratory results Abnormal [employer] Phone: [employer] Phone: TroponinOrdered By: Manuel Conner on 12-18-2020 Troponin Interp NOT REPORTED [employer] Phone: Troponin T NOT REPORTED <0.03 ng/mL [employer] Phone: Troponin, High Sensitivity 71 ng/L Critically high 0 - 22 ng/L [employer] Phone: Comment on above: High Sensitivity Troponin [...] Consider advancement by 5-7 cm, if able. [employer] Phone: EXAMINATION: ONE XRA Y VIEW OF [...] cardiomegaly. Bony thorax is without acute abnormality. [facility] Phone: Roger, Mhpn Incoming R adiant Results From [email or web address] - 12/18/2020 1:31 PM EDT EXAMINATION: ONE [...] Consider advancement by 5-7 cm, if able. [employer] Phone: [employer] Phone: XR CHEST PORTABLEOrdered By: Manuel Conner on 12-18-2020 Mild prominence of interstitial markings suggests mild vascular congestion with mild streaky bibasilar atelectasis [employer] Phone: EXAMINATION: ONE XRA Y VIEW OF THE CHEST 12/18/2020 11:18 am COMPARISON: December 17, 2020, chest examination HISTORY: ORDERING SYSTEM PROVIDED HISTORY: Congestion TECHNOLOGIST PROVIDED HISTORY: Congestion FINDINGS: Median sternotomy. Stable cardiomegaly/mild tortuosity of the thoracic aorta Mild streaky bibasilar density. Mild prominence of interstitial markings Possible small right pleural effusion Degenerative changes of the thoracic spine/shoulders [employer] Phone: Roger, Mhpn Incoming R adiant Results From [email or web address] - 12/18/2020 11:26 AM EDT EXAMINATION: ONE [...] vascular congestion with mild streaky bibasilar atelectasis [employer] Phone: [employer] Phone: APTTOrdered By: Manuel lew on 12-17-2020 aPTT Coag (Bld) [Time] 22.8 s Low [employer] Phone: Comment on above: IV Heparin Therapy Range: 62.0-94.0 Interpretation and review of laboratory results Abnormal [employer] Phone: [employer] Phone: Blood Gas, VenousOrdered By: Manuel Conner on 12-17-2020 Shilo Test NOT REPORTED [employer] Phone: Carboxyhemoglobin NOT REPORTED 0.0 - 5.0 % [employer] Phone: Comment on above: FIO2 NOT REPORTED [employer] Phone: HCO3 (Bld) [Moles/Vol] 21.9 mmol/L Low 24.0 - 30.0 mmol/L [employer] Phone: Interpretation and review of laboratory results Abnormal [employer] Phone: Methemoglobin NOT REPORTED 0.0 - 1.9 % [employer] Phone: Mode NOT REPORTED [employer] Phone: Negative Base Excess, Angelo 5.7 mmol/L High 0.0 - 2.0 mmol/L [employer] Phone: NOTIFICATION NOT REPORTED [employer] Phone: NOTIFICATION TIME NOT REPORTED [employer] Phone: O2 Device/Flow/% NOT REPORTED [employer] Phone: Oxygen saturation in Blood 31.2 % Low 60.0 - 85.0 % [employer] Phone: Oxyhemoglobin NOT REPORTED 95.0 - 98.0 [...] - 2.0 mmol/L [facility] Work Phone: [phone] PSV NOT REPORTED [facility] Work Phone: Pt Temp 37.0 [facility] Work Phone: Pt. Position NOT REPORTED [facility] Work Phone: Respiratory Rate NOT REPORTED [facility] Work Phone: Sample Site NOT REPORTED [facility] Work Phone: Set Rate NOT REPORTED [facility] Work Phone: Text for Respiratory NOT REPORTED [facility] Work Phone: Total Hb NOT REPORTED 12.0 - 16.0 g/dl [facility] Work Phone: Total Rate NOT REPORTED [facility] Work Phone: VT NOT REPORTED [facility] Work Phone: [facility] Work Phone: Brain Natriuretic PeptideOrd ered By: Manuel Conner on 12-17-2020 BNP Interpretation Pro-BNP Reference Range: [employer] Phone: Comment on above: Rule Out: <300 Pagan Zone: Age <50 300-450 Age 50-75 300-900 Age >75 300-1800 Usually represents mild to moderate HF but other cardiopulmonary causes cannot be ruled out. Rule In: Age <50 >450 Age 50-75 >900 Age >75 >1800 Natriuretic peptide B (Bld) [Mass/Vol] 1428 pg/mL High <300 [employer] Phone: Comment on above: Pro-BNP results halie ot be compared to BNP results. CBC Auto DifferentialOrdered By: Manuel Conner on 12-17-2020 Absolute Eos # 0.03 [employer] Phone: Absolute Immature Granulocyte 0.03 [employer] Phone: Absolute Lymph # 0.96 Low [facility] Phone: Absolute Levy # 0.52 [employer] Phone: Basophils (Bld) [#/Vol] 10*3/uL [facility] Phone: Basophils/100 WBC (Bld) 0 % 0 - 2 % [facility] Phone: Differential Type NOT REPORTED [facility] Phone: [phone] Eosinophils/100 WBC (Bld) 0 % Low 1 - 4 % [employer] Phone: Hematocrit (Bld) [Volume fraction] 37.2 % Low 40.7 - 50.3 % [employer] Phone: Hemoglobin.gastrointest inal spec 1 Ql (Stl) 11.5 g/dL Low 13.0 - 17.0 g/dL [employer] Phone: Immature granulocytes/100 WBC (Bld) 0 % 0 [employer] Phone: Interpretation and review of laboratory results Abnormal [employer] Phone: Lymphocytes/100 WBC (Bld) 11 % Low 24 - 43 % [employer] Phone: MCH (RBC) [Entitic mass] 28.5 pg 25.2 - 33.5 pg [employer] Phone: MCHC (RBC) [Mass/Vol] 30.9 g/dL 28.4 - 34.8 g/dL [employer] Phone: MCV (RBC) [Entitic vol] 92.3 fL 82.6 - 102.9 fL [employer] Phone: Monocytes/100 WBC (Bld) 6 % 3 - 12 % M [employer] Phone: NRBC Automated 0.0 0.0 per 100 WBC [employer] Phone: Platelet distribution width (Bld) [Ratio] 13.0 % 11.8 - 14.4 % [employer] Phone: Platelet Estimate NOT REPORTED [employer] Phone: Platelet mean volume (Bld) [Entitic vol] NOT REPORTED 8.1 - 13.5 fL [employer] Phone: Platelets (Bld) [#/Vol] See Reflexed IPF Result [employer] Phone: RBC (Bld) [#/Vol] 4.03 10*6/uL Low 4.21 - 5.77 m/uL [employer] Phone: RBC (Bld) [#/Vol] NOT REPORTED [employer] Phone: Segmented neutrophils/100 WBC (Bld) 82 % High 36 - 65 % [employer] Phone: Segs Absolute 6.94 [employer] Phone: [phone] WBC (Bld) [#/Vol] 8.5 10*3/uL [employer] Phone: WBC (Bld) [#/Vol] NOT REPORTED [employer] Phone: [employer] Phone: COVID-19, RapidOrdered By: Agnieszka yaritza Conner on 12-17-2020 SARS-CoV-2 (COVID-19) RNA JOYCE+probe Ql (Unsp spec) Not detected Not Detected [employer] Phone: Comment on above: Rapid NAAT: The [...] management decisions. Fact sheet for Healthcare Providers: https://www.fda.gov/media/937530/download Fact sheet for Patients: https://www.fda.gov/media/123480/download Methodology: Isothermal Nucleic Acid Amplification Specimen Description .NASOPHARYNGEAL SWAB [employer] Phone: [facility] Phone: CT HEAD WO CONTRASTOrdered B y: Manuel Conner on 12-17-2020 No acute intracrania l abnormality. 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 Minimal parenchymal volume loss. Minimal chronic microvascular disease. [facility] Phone: EXAMINATION: CT OF T HE HEAD [...] of the visualized skull or soft tissues. [facility] Phone: Roger, pn Incoming R adiant Results From [email or web address] - 12/17/2020 9:36 AM EDT EXAMINATION: CT [...] parenchymal volume loss. Minimal chronic microvascular disease. [facility] Phone: [employer] Phone: Comprehensive Metabolic Pane l w/ Reflex to MGOrdered By: Manuel Conner on 12-17-2020 Albumin [Mass/Vol] 4 g/dL 3.5 - 5.2 g/dL [employer] Phone: Albumin/Globulin [Mass ratio] 1.3 {ratio} [employer] Phone: ALP (Bld) [Catalytic activity/Vol] 66 U/L 40 - 129 U/L [employer] Phone: ALT [Catalytic activity/Vol] 12 U/L 5 - 41 U/L [employer] Phone: Anion gap [Moles/Vol] 19 mmol/L High 9 - 17 mmol/L [employer] Phone: AST [Catalytic activity/Vol] 18 U/L <40 [employer] Phone: Bilirubin [Mass/Vol] 0.16 mg/dL Low 0.3 - 1 .2 mg/dL [employer] Phone: Calcium [Mass/Vol] 8.8 mg/dL 8.6 - 10. 4 mg/dL [employer] Phone: Chloride [Moles/Vol] 102 mmol/L 98 - 10 7 mmol/L [employer] Phone: CO2 [Moles/Vol] 19 mmol/L Low 20 - 31 mmol/L [employer] Phone: Creatinine [Mass/Vol] 6.59 mg/dL Critically high 0.7 0 - 1.20 mg/dL [employer] Phone: Free PSA/Total PSA [Mass fraction] 7.0 g/dL 6.4 - 8.3 g/dL [employer] Phone: GFR 10 mL/min Low >60 [employer] Work Phone: GFR Non- 8 mL/min Low >60 [employer] Phone: Glucose [Mass/Vol] 197 mg/dL High 70 - 99 mg/dL [employer] Phone: Potassium [Moles/Vol] 4.6 mmol/L 3.7 - 5.3 mmol/L [employer] Phone: Sodium [Moles/Vol] 140 mmol/L 135 - 144 mmol/L [employer] Phone: Urea nitrogen (BldV) [Mass/Vol] 96 mg/dL Critically high 8 - 23 mg/dL [employer] Phone: Urea nitrogen/Creatinine (Bld) [Mass ratio] 15 [employer] Phone: EKG 12 LeadOrdered By: Kathy Conner on 12-17-2020 Atrial Rate 85 BPM [employer] Phone: [phone] P [place] -15 degrees [employer] Phone: P-R Interval 224 ms [employer] Phone: Q-T Interval 414 ms [employer] Phone: QRS Duration 120 ms [employer] Phone: QTc Calculation (Bazett) 492 ms [employer] Phone: R [place] 99 degrees [employer] Phone: T [place] 44 degrees [employer] Phone: Ventricular Rate 85 BPM [employer] Phone: Sinus rhythm with 1s t degree A-V block Rightward axis Septal infarct , age undetermined Abnormal ECG No previous ECGs available Confirmed by JARON BERNARD ([id number]) on 12/17/2020 11:51:30 PM [employer] Phone: Roger, Mhpn Incoming E kg Results From [facility] [place] - 12/17/2020 11:51 PM EDT Sinus rhythm with 1st degree A-V block Rightward axis Septal infarct , age undetermined Abnormal ECG No previous ECGs available Confirmed by JARON BERNARD ([id number]) on 12/17/2020 11:51:30 PM [employer] Phone: [employer] Phone: Immature Platelet FractionOr dered By: Manuel Conner on 12-17-2020 Interpretation and review of laboratory results Abnormal [facility] Phone: Platelet, Fluorescence 110 Low Me [employer] Phone: Platelet, Immature Fraction 4.6 % 1.1 - 10.3 % [employer] Phone: [employer] Phone: Laboratory - Chemistry and C hemistry - challengeOrdered By: Manuel Conner on 12-17-2020 GFR/1.73 sq M.predicted MDRD (S/P/Bld) [Vol rate/Area] [employer] Phone: Comment on above: Average GFR for 70 o r more years old: 75 mL/min/1.73sq m Chronic Kidney Disease: <60 mL/min/1.73sq m Kidney failure: <15 mL/min/1.73sq m eGFR calculated using average adult body mass. Additional eGFR calculator available at: http://www.[address].MaestroDev/multiple_crcl_2012.htm Stage 1: Some kidney damage normal GFR Stage 2: Mild kidney damage GFR 60-89 Stage 3: Moderate kidney damage GFR 30-59 Stage 4: Severe kidney damage GFR 15-29 Stage 5: Severe kidney damage GFR <15 ESRD - chronic treatment by dialysis or transplant Lactic AcidOrdered By: Kathy Conner on 12-17-2020 Lactate [Moles/Vol] 1.3 mmol/L 0.5 - 2. 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 Flow artifact in the proximal M1 segments of the bilateral MCAs and intracranial right ICA. The bilateral intracranial vertebral arteries are not imaged. [employer] Phone: EXAMINATION: MRA OF THE HEAD WITHOUT CONTRAST 12/17/2020 1:32 pm TECHNIQUE: MRA of the head was performed utilizing [id number] imaging with MIP images. No intravenous contrast [...] cerebral arteries. No evidence of intracranial aneurysm. [facility] Phone: Roger, Mhpn Incoming R adiant Results From [email or web address] - 12/17/2020 2:02 PM EDT EXAMINATION: MRA OF THE HEAD WITHOUT CONTRAST 12/17/2020 1:32 pm TECHNIQUE: MRA of the head was performed utilizing [id number] imaging with MIP images. No intravenous contrast [...] bilateral intracranial vertebral arteries are not imaged. [employer] Phone: [employer] Phone: MRI BRAIN WO CONTRASTOrdered By: Manuel Conner on 12-17-2020 Addendum by Cristhian Hardin MD on 12/17/2020 2:02 PM ADDENDUM: Absence of normal flow void in left vertebral artery, likely related to severe stenosis versus occlusion. [employer] Phone: No acute intracrania l abnormality. 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 Mild parenchymal volume loss. Mild chronic microvascular disease. 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 [facility] Phone: EXAMINATION: MRI OF THE BRAIN WITHOUT [...] The soft tissues demonstrate no acute abnormality. [employer] Phone: Roger, [facility] Incoming R adiant Results From [facility] - 12/17/2020 1:55 PM EDT EXAMINATION: MRI [...] internal carotid artery, likely related to occlusion. [employer] Work Phone: [employer] Work Phone: Microscopic UrinalysisOrdere d By: Manuel Conner on 12-17-2020 - [employer] Work Phone: [phone] Amorphous, UA NOT REPORTED None [employer] Work Phone: Bacteria, UA NOT REPORTED None [employer] Work Phone: Casts UA NOT REPORTED /LPF [facility] Work Phone: Crystals, UA NOT REPORTED None /HPF [employer] Work Phone: Epithelial Cells UA 0 TO 2 [employer] Work Phone: Mucus, UA NOT REPORTED None [employer] Work Phone: Other Observations UA NOT REPORTED NOT REQ. [facility] Work Phone: RBC, UA 2 TO 5 [employer] Work Phone: Renal Epithelial, UA NOT REPORTED 0 /HPF Me [employer] Work Phone: Trichomonas, UA NOT REPORTED None [employer] Work Phone: WBC, UA 0 TO 2 [facility] Work Phone: Yeast, UA NOT REPORTED None [employer] Work Phone: [facility] Work Phone: No Panel InformationOrdered By: Manuel Conner on 12-17-2020 Interpretation and review of laboratory results Abnormal [employer] Work Phone: [employer] Work Phone: Interpretation and review of laboratory results Abnormal [employer] Work Phone: [employer] Work Phone: Protime-INROrdered By: Kathy Conner on 12-17-2020 INR Coag (Bld) [Relative time] 1.1 {INR} [employer] Phone: Comment on above: Non-therapeutic Range: INR = 0.9-1.2 Therapeutic Range: Moderate Anticoagulant Intensity: INR = 2.0-3.0 High Anticoagulant Intensity: INR = 2.5-3.5 PT Coag (PPP) [Time] 13.7 s [employer] Phone: [employer] Phone: TroponinOrdered By: Manuel Conner on 12-17-2020 Interpretation and review of laboratory results Abnormal [employer] Phone: Troponin Interp NOT REPORTED [employer] Phone: Troponin T NOT REPORTED <0.03 ng/mL [employer] Phone: Troponin, High Sensitivity 79 ng/L Critically high 0 - 22 ng/L [employer] Phone: Comment on above: High Sensitivity Troponin values cannot be compared with other Troponin methodologies. Patients with high levels of Biotin oral intake (i.e >5mg/day) may have falsely decreased Troponin levels. Samples collected within 8 hours of biotin intake may require additional information for diagnosis. [employer] Phone: Troponin Interp NOT REPORTED [employer] Phone: Troponin T NOT REPORTED <0.03 ng/mL [employer] Phone: Troponin, High Sensitivity 85 ng/L Critically high 0 - 22 ng/L [employer] Phone: Comment on above: High Sensitivity Troponin values cannot be compared with other Troponin methodologies. Patients with high levels of Biotin oral intake (i.e >5mg/day) may have falsely decreased Troponin levels. Samples collected within 8 hours of biotin intake may require additional information for diagnosis. Urinalysis, reflex to micros copicOrdered By: Manuel Conner on 12-17-2020 Bilirubin Urine Negative NEGATIVE [employer] Work Phone: Color, UA Yellow Yellow [employer] Work Phone: Glucose, Ur Negative NEGATIVE [employer] Work Phone: Interpretation and review of laboratory results Abnormal [employer] Work Phone: Ketones Ql (U) Negative NEGATIVE [employer] Work Phone: Leukocyte esterase Test strip Ql (U) Negative NEGATIVE [employer] Work Phone: Nitrite, Urine Negative NEGATIVE [employer] Work Phone: pH, UA 5.5 [employer] Work Phone: Protein, UA TRACE Abnormal NEGATIVE [employer] Phone: Specific [place], UA 1.025 High [employer] Work Phone: Turbidity UA Clear Clear [employer] Work Phone: Urinalysis Comments NOT REPORTED [facility] [employer] Work Phone: Urine Hgb TRACE Abnormal NEGATIVE [employer] Phone: Urobilinogen, Urine Normal Normal [employer] Phone: [employer] Work Phone: XR CHEST PORTABLEOrdered By: Manuel Conner on 12-17-2020 Mild streaky bibasil ar atelectasis with possible small bilateral pleural effusions [employer] Phone: EXAMINATION: ONE XRA Y VIEW OF THE CHEST 12/17/2020 9:30 am COMPARISON: None. HISTORY: ORDERING SYSTEM PROVIDED HISTORY: Congestion TECHNOLOGIST PROVIDED HISTORY: Congestion FINDINGS: Median sternotomy. Normal cardiopericardial silhouette Low volume lungs. Mild streaky bibasilar densities, possible possible small bilateral pleural effusions. Clear upper lungs Degenerative changes of the thoracic spine/shoulders [employer] Phone: Roger, Mhpn Incoming R adiant [facility] - 12/17/2020 9:46 AM EDT EXAMINATION: ONE [...] atelectasis with possible small bilateral pleural effusions [employer] Phone: [employer] Phone: Vital Signs Date Time Vital Sign Value Performing Clinician Facility 07-03-2021 15:01-0400 Body temperature 99.32 [degF] Michael Carballo Other Phone: [facility] 07-03-2021 15:01-0400 Diastolic blood pressure 66 mm[Hg] Michael Carballo Other Phone: [facility] 07-03-2021 15:01-0400 Heart rate 80 /min Michael Carballo Other Phone: [facility] 07-03-2021 15:01-0400 Respiratory rate 22 /min Michael Carballo Other Phone: [facility] 07-03-2021 15:01-0400 SaO2% (BldA) [Mass fraction] 97 % Michael Carballo Other Phone: [facility] 07-03-2021 15:01-0400 Systolic blood pressure 127 mm[Hg] Michael Carballo Other Phone: [facility] 07-03-2021 06:30-0400 Body weight 100.5 kg Michael Carballo Other Phone: [facility] 06-27-2021 13:00-0400 Diastolic blood pressure 69 mm[Hg] MD Michael Carballo Work Phone: [facility] 06-27-2021 13:00-0400 Heart rate 87 /min MD Michael Carballo Work Phone: [facility] 06-27-2021 13:00-0400 Respiratory rate 17 /min MD Michael Carballo Work Phone: [facility] 06-27-2021 13:00-0400 SaO2% (BldA) [Mass fraction] 94 % MD Michael Carballo Work Phone: [facility] 06-27-2021 13:00-0400 Systolic blood pressure 153 mm[Hg] MD Michael Carballo Work Phone: [facility] 06-27-2021 08:00-0400 Body temperature 97.9 [degF] MD Michael Carballo Work Phone: [facility] 06-27-2021 05:44-0400 Body weight 106.5 kg MD Michael Carballo Work Phone: [facility] 06-26-2021 14:12-0400 Body height 182.88 cm MD Michael Carballo Work Phone: [facility] 06-26-2021 00:24-0400 Body height 182.88 cm MD Michael Carballo Work Phone: [facility] 06-26-2021 00:24-0400 Body mass index (BMI) [Ratio] 32.8 kg/m2 MD Michael Carballo Work Phone: [facility] 06-26-2021 00:24-0400 Body temperature 97.7 [degF] MD Michael Carballo Work Phone: [facility] 06-26-2021 00:24-0400 Body weight 109.9 kg MD Michael Carballo Work Phone: [facility] 06-26-2021 00:24-0400 Diastolic blood pressure 100 mm[Hg] MD Michael Carballo Work Phone: [facility] 06-26-2021 00:24-0400 Heart rate 88 /min MD Michael Carballo Work Phone: [facility] 06-26-2021 00:24-0400 Respiratory rate 18 /min MD Michael Carballo Work Phone: [facility] 06-26-2021 00:24-0400 SaO2% (BldA) [Mass fraction] 96 % MD Michael Carballo Work Phone: [facility] 06-26-2021 00:24-0400 Systolic blood pressure 221 mm[Hg] MD Michael Carballo Work Phone: [facility] 12-19-2020 20:01-0400 Diastolic blood pressure 64 mm[Hg] Manuel Conner MD Work Phone: [employer] Work Phone: 12-19-2020 20:01-0400 Systolic blood pressure 182 mm[Hg] Manuel Conner MD Work Phone: [employer] Work Phone: 12-19-2020 19:00-0400 Heart rate 75 /min Manuel Conner MD Work Phone: [employer] Work Phone: 12-19-2020 19:00-0400 Respiratory rate 23 /min Manuel Conner MD Work Phone: [employer] Work Phone: 12-19-2020 19:00-0400 SaO2% (BldA) [Mass fraction] 94 % Manuel Conner MD Work Phone: [employer] Work Phone: 12-18-2020 06:30-0400 Body temperature 98.29 [degF] Manuel Conner MD Work Phone: [employer] Work Phone: Encounters Encounter Date Encounter Type Care Provider Facility Start: 09-28-2022 AUDIT Michael Carballo Work Phone: CO-Pvvvomijuq-Lokzemej SJW 260 DO Work Phone: Start: 07-24-2022 End: 07-24-[address] MICHAEL CARBALLO . Facility: Start: 07-15-2022 End: 07-15-[address] MICHAEL CARBALLO . Facility: Start: 07-13-2022 Patient encounter procedure Michael Carballo Work Phone: MG-Yoqlgffzsy-CCS [place] [address] Work Phone: Start: 07-13-2022 Phys/qhp telephone evaluation 11-20 min Michael Carballo Work Phone: MZ-Qjgtdhhdsx-USP [facility] [address] Work Phone: Start: 07-13-2022 ambulatory MD SCOUT ROMO Facility:[facility] Start: 07-13-2022 End: 07-13-[address] MICHAEL CARBALLO . Facility: Start: 07-09-2022 AUDIT Michael Carballo Work Phone: BZ-Nobkowttek-HGM [place] [address] Work Phone: Start: 06-08-2022 ambulatory Facility: [facility] Start: 06-05-2022 End: 06-05-[address] MICHAEL CARBALLO . Facility: Start: 06-04-2022 End: 06-04-[address] MICHAEL CARBALLO . Facility: Start: 04-14-2022 End: 04-15-[address] [facility] Start: 04-14-2022 End: 04-14-2022 Subsequent hospital visit by physician Michael Carballo Work Phone: [facility] Start: 10-30-2021 End: 10-31-2021 ambulatory Manfred Wilson Facility:[facility] Start: 10-28-2021 End: 10-28-[address] MICHAEL CARBALLO . Facility: Start: 10-15-2021 Patient encounter procedure Michael Carballo Work Phone: SO-Lhaijuktkh-PPP [facility] [address] [place] Work Phone: Start: 10-15-2021 ambulatory DO FELICIA ATSORGA Facility:[facility] Start: 08-05-2021 End: 08-06-[address] MICHAEL CARBALLO . Facility: Start: 07-16-2021 Office outpatient vi sit 25 minutes Michael Carballo Work Phone: ZT-Plywfxmmoq-JAG [facility] [address] [place] Work Phone: Start: 07-16-2021 Patient encounter procedure Michael Carballo Work Phone: WX-Luyoqdrzib-VPZ [facility] [address] [place] Work Phone: Start: 06-27-2021 End: 07-03-2021 [id number] Start: 06-25-2021 End: 06-27-2021 Evaluation and management of inpatient MD Michael Carballo Work Phone: [facility] Start: 06-25-2021 Patient encounter procedure Michael Carballo Work Phone: VJ-Mtpthixvrc-YBD [facility] [address] [place] Work Phone: Start: 06-24-2021 End: 06-24-2021 Patient encounter procedure MD Michael Carballo Work Phone: [facility] Start: 05-28-2021 AUDIT Michael Carballo Work Phone: RZ-Xymvfkgnhq-SGS [facility] [address] [place] Work Phone: Start: 05-27-2021 End: 05-27-2021 Patient encounter procedure MD Michael Carballo Work Phone: [facility] Start: 01-01-2021 Patient encounter procedure Michael Carballo Work Phone: DY-Amhjnwoapa-XEZ [facility] [address] [place] Work Phone: Start: 01-01-2021 WANG, Provider : Rizwan,Felicia, Status: Pen, Time: 2:20 PM Michael Carballo Work Phone: BK-Dxpifwxuch-Xpvuryko [facility] [address] DO Work Phone: Start: 12-31-2020 AUDIT Michael Carballo Work Phone: ZC-Ociwmvihah-Fjlqfapx [facility] 260 DO Work Phone: Start: 12-17-2020 End: 12-19-2020 Emergency department patient visit Manuel Conner MD Work Phone: [facility] ED Comment on above: [place] coma scale t otal score 13-15, at hospital admission (Primary Dx); Acute kidney injury (HCC); Heart replaced by transplant (HCC); Confusion Start: 11-21-2020 AUDIT Michael Carballo Work Phone: [place]-Nluwjleuek-VVM [place] [address] [place] Work Phone: Start: 10-31-2020 AUDIT Michael Carballo Work Phone: [facility] Work Phone: Procedures Date Procedure [...] Heart repla vaibhav by transplant ([facility]) Manuel Conner MD Work Phone: H/O: [...] Montse Villanueva, Status: Pen, Time: 2:00 PM WO-Lhgitkusdl-ROC [place] [address] Work Phone: Start: 07-13-2022 WANG, Provider : Scout Romo, Status: Pen, Time: 1:40 PM VIRFUCORI, Provider: Scout Romo, Status: Pen, Time: 1:40 PM LK-Hehrkpysft-RPM [place] [address] Work Phone: Start: 04-01-2022 WANG, Provider : Felicia Astorga, Status: Pen, Time: 1:00 PM WANG, Provider: Felicia Astorga, Status: Pen, Time: 1:00 PM BD-Gnpiebhraf-YTC [facility] [address] [place] Work Phone: Start: 12-19-[address] [facility] Work Phone: Start: 12-19-2021 Potassium monitoring Potassium monit nyla [employer] Phone: Start: 10-20-2021 Influenza vaccination Flu vaccine (# 1) [facility] Start: 07-16-2021 Patient encounter procedure [facility] Start: 07-03-2021 End: 07-04-2022 Insulin Glargine (Lantus) Injectable Subcutaneous Once ; DOSE = 12 unit(s) SubCutaneous At BedtimeNotes from Pharmacy: [facility] Start: 03-Jul-2021 End: 03-Jul-2022 Ordered: 03-Jul-2021 Magy Galeas Intent [facility] Start: 07-01-2021 End: 07-02-2022 [facility] Comment on above: IF patient HAS a [...] End: 30-Jun-2022 Ordered: 30-Jun-2021 Jihan Storm Intent [facility] Start: 06-27-2021 End: 06-28-2022 Sodium Chloride 0.9% Injectable Flush Peripheral Line ; via Peripheral LineVolume = 10 mL IntraVenous Flush Every 8 Hours and as Needed Start: 27-Jun-2021 End: 27-Jun-2022 Ordered: 26-Jun-2021 Magy Galeas Intent [facility] Start: 06-26-2021 Duplex scan of upper limb arteries US arterial duplex UE RT [facility] Start: 12-17-2020 Annual Wellness Visi t (AWV) Annual Wellness Visit (AWV) [employer] Start: 11-20-2020 Influenza vaccination Flu vaccine (# 1) [employer] Work Phone: Start: 07-16-2020 COVID-19 Vaccine (3 - Pfizer risk 3-dose series) COVID-19 Vaccine (3 - Pfizer risk 3-dose series) [employer] Work Phone: Start: 07-16-2020 COVID-19 Vaccine (3 - Pfizer risk series) COVID-19 Vaccine (3 - Pfizer risk series) [employer] Start: 10-01-2016 Pneumococcal 65+ yrs at Risk Vaccine (2 of 2 - PCV13) Pneumococcal 65+ yrs at Risk Vaccine (2 of 2 - PCV13) [employer] Phone: Start: 10-10-1993 Shingles Vaccine (1 of 2) Shingles Vaccine (1 of 2) [employer] Work Phone: Start: 10-10-1962 DTaP/Tdap/Td vaccine (1 - Tdap) DTaP/Tdap/Td vaccine (1 - Tdap) [facility] Start: 10-10-1962 Shingles vaccine (1 of 2) Shingles vaccine (1 of 2) [facility] Start: 10-10-1961 Hepatitis C screening Hepatitis C sc reen [facility] Start: 1955 Depression Screen Depression Screen [facility] Start: 10-10-1953 Lipid panel [facility] Start: 1943 Hepatitis C screening Hepatitis C sc reen [facility] Work Phone: Calcium [Mass/volume ] in Serum or Plasma [facility] Work Phone: Carbon dioxide, tota l [Moles/volume] in Serum or Plasma [facility] Work Phone: Chloride [Moles/volu me] in Serum or Plasma [facility] Work Phone: Creatinine and Glomerular filtration rate.predicted panel - Serum, Plasma or Blood [facility] Work Phone: [facility], [facility] Work Phone: Culture, Wound Culture, Wound Microbiology Routine 04/14/2022 3:25 PM EST [facility] Work Phone: Glucose [Mass/volume ] in Serum or Plasma [facility] Work Phone: Goals of care, counseling/discussion [facility] Measurement of renal function [facility] Work Phone: Potassium [Moles/volume] in Serum or Plasma [facility] Work Phone: Sodium [Moles/volume ] in Serum or Plasma [facility] [facility] Work Phone: Tacrolimus [Mass/volume] in Blood [facility] Work Phone: End: 12-18-2020 Tacrolimus Level [facility] Work Phone: Comment on above: One Time for 1 Occur rences starting 12/18/2020 until 12/18/2020 End: 12-19-2020 Tacrolimus Level Tacrolimus Level Lab Routine One Time for 1 Occurrences starting 12/19/2020 until 12/19/2020 [employer] Work Phone: Comment on above: One Time for 1 Occur rences starting 12/19/2020 until 12/19/2020 [facility] Work Phone: Urea nitrogen [Mass/volume] in Serum or Plasma [facility] Work Phone: Immunizations Immunization Date Immunization Notes Care Provider Haven de leon 03-21-2021 Pfizer-BioNTech COVI D-19 Vacc 30 MCG/0.3ML Intramuscular Suspension Michael Carballo Work Phone: [id number]-ATG Heather Vallecillo [address] [place] Work Phone: 06-18-2020 Pfizer-BioNTech COVI D-19 Vacc 30 MCG/0.3ML Intramuscular Suspension Michael Candelario Carballo Work Phone: [facility] Work Phone: 05-27-2020 Pfizer-BioNTech COVI D-19 Vacc 30 MCG/0.3ML Intramuscular Suspension Michael E Carballo Work Phone: [facility] Work Phone: 12-29-2019 Seasonal trivalent influenza vaccine, adjuvanted, preservative free Michael Palomino Carballo Work Phone: [facility] Work Phone: 12-22-2017 Seasonal trivalent influenza vaccine, adjuvanted, preservative free Michael Palomino Carballo Work Phone: [facility] Work Phone: 12-28-2016 Seasonal trivalent influenza vaccine, adjuvanted, preservative free Michael Palomino Carballo Work Phone: [facility] Work Phone: 12-24-2015 influenza, high dose seasonal, preservative-free Michael Palomino Carballo Work Phone: [facility] Work Phone: 10-02-2015 influenza, seasonal, injectable Michael Palomino Carballo Work Phone: [facility] Work Phone: 10-02-2015 pneumococcal polysaccharide vaccine, 23 valent Michael Palomino Carballo Work Phone: [facility] Work Phone: 01-09-2015 influenza, injectabl e, quadrivalent, contains preservative Michael Palomino Carballo Work Phone: [facility] Work Phone: 01-03-2013 influenza, seasonal, injectable Michael Palomino Carballo Work Phone: [facility] Work Phone: 01-07-2009 influenza virus vacc ine, whole virus Michael Christianight Work Phone: [facility] Work Phone: 01-20-2005 influenza virus vacc ine, whole virus Michael Palomino Carballo Work Phone: [facility] Work Phone: Payers Date Payer Category Payer Self-pay [id number] 1961 Medicaid [id number] 1961 Medicare [id number] 1961 Medicare [id number] 1961 Private Health Insurance [id number] 1943 Unknown [id number] 2.16.8 [id number] 1943 Unknown [id number] 2.16.84 [id number] 1943 Unknown [id number] 2.16.84 [id number] 1943 Unknown [id number] 2.16.84 [id number] 1943 Unknown [id number] 2.16.84 [id number] 1943 Unknown [id number] 2.16.84 [id number] 1943 Unknown [id number] 2.16.84 [id number] 1943 Unknown [id number] 2.16.84 [id number] 1943 Unknown [id number] 2.16. [id number] 1943 Unknown [id number] 2.16. [id number] Unknown Unknown [id number] 2.16.8 [id number] Social History Date Type Detail Facility Former smoker Former smoker [employer] Work Phone: Start: 12-17-2020 Tobacco smoking stat [facility] Unknown if ever smoked [employer] Work Phone: Start: 1945 Sex Assigned At Not on file M [employer] Work Phone: Exposure to SARS-CoV -2 (event) Unable to assess [employer] Start: 12-13-2020 [facility] Start: 1945 Sex Assigned At Male F [facility] Start: 06-26-2021 End: 06-26-2021 Tobacco smoking status NHIS Ex-smoker (finding) [facility] End: 03-22-1996 History of tobacco use [facility] Work Phone: Goals Date Patient Goal Desired Activity /State Functional Status Date Assessment Result Facility 06-27-2021 Functional status Patient at Baseline [facility] Work Phone: Functional observable [facility] Mental Status Date Assessment Result Facility 06-30-2021 Cognitive functi ons [id number] [facility] 06-27-2021 Cognitive function Cognitive Sta tus Patient at Baseline [facility] Work Phone: Clinical Notes 07-05-2000 to 07-03-2021 <item><item><item><item><item><item><item><item><item> Note Date & Type Note Facility 07-03-2021 Hospital Discharge instructions Activity:activity with assistance. May shower.Labs 1 (Modify Template):Lab Test(s): Basic Metabolic Panel, CBC, Tacrolimus levelDate To Be Drawn: 07/07/2021all Results To: Dr. Felicia Moore Results To: [id number] Orders:Blood Glucose Monitoring: ACHSAdditional Instructions: Use of [...] Uncontrolled diabetesCall to Schedule in: 2 weeksLocation: [facility] Up Appointment 2:Physician/Dept/Service: Dr. Felicia Astorga / Heart failure and transplantReason for Referral: hospital follow-upLocation: [facility] [address]Comments: Our office will call you to set up an appointment either in person or virtually. [facility] 06-27-2021 Discharge summary Note Date/Time June 27, 2021 10:32am [facility] [address] [place] [address] Discharge Summary Signed Patient: Oliverio Escobedo MR#: [id number] : 1945 Acct:[id number] Age/Sex: 75 / M Adm Date: 2 Loc: Room: [address] [place] [address]: Yoshi Hernandez MD Copies to: MD Justa OlveraUNC [facility]ALTH [facility]HELLY [facility] Providers Date of Discharge: 06/27/21 Discharging [...] 1 tab PO BID RF: 0 omega 0-mye-fhd-fish oil [Fish Oil] 1,000 mg (120 mg-180 [...] signed by Yoshi Hernandez MD> 06/27/21 1032 [facility] Work Phone: 1(494) 699-156904-08-2022 Progress note Author Bonilla Ortiz [facility] June 27, 2021 10:27am Note Date/Time June 27, 2021 10:2 7am [facility] [address] [place] [address] Cardiology Progress Note Signed Patient: Oliverio Escobedo MR#: [id number] : 1945 Acct:[id number] Age/Sex: 75 / M Adm Date: 2 Loc: 3T Room: [address] [place] [address] Type : ADM INOo Attending Dr: Yoshi Hernandez MD Copies to: ~ Date of Service: 06/27/2021 Subjective Principal diagnosis: Edema w history of orthotopic heart transplant Interval history: Mr. Escobedo is a 75 year old male with known history of orthotopic heart transplantation in 2000 done at [facility] who was admitted to the inpatient hospitalist service last night after presenting from the [facility] with complaints of increasing swelling in both legs and the right arm for several days. The patient is resting comfortably this morning. He did diurese gently yesterday. He currently has no cardiac complaints. His breathing feels comfortable lying flat at rest. Swelling in both feet and calves is still present. NB: The patient has been accepted by the transplant service at [facility]. At this point we are [...] Agree with transfer to transplant service at [facility] for further management. Plan Thank you very much for this kind consultation and for allowing me to participate in the care of this very pleasant patient. Time spent with patient Time Spent With Patient (min): 20 Documented By: Bonilla Ortiz MD 06/27/21 1024 Signed By: <Electronically signed by Bonilla Ortiz MD> 06/27/21 1027 [facility] Work Phone: 1(154) 362-525504-07-2022 Progress note Author Yoshi Wu [facility] June 26, 2021 6:27pm Note Date/Time June 26, 2021 6:27 pm [facility] [address] [place] [address] Hospitalist Progress Note Signed Patient: Oliverio Escobedo MR#: [id number] : 1945 Acct:[id number] Age/Sex: 75 / M Adm Date: 2 Loc: Room: [address] [place] [address] Type : ADM INOo Attending Dr: Yoshi [...] Oil 1,000 mg 06/26/21 09:00 06/26/21 09:01 [place]-3/Fish Oil 1,000 Mg Capsule PO 06/26/22 08:59 [...] <Electronically signed by Yoshi Hernandez MD> 06/26/21 392 [facility] Work Phone: 1(718) 833-642804-07-2022 Consult note Author Bonilla Ortiz [facility] June 26, 2021 2:26pm Note Date/Time June 26, 2021 2:23 pm [facility] [address] [place] [address] Cardiology Consult Note Signed Patient: Oliverio Escobedo MR#: [id number] : 1945 Acct:[id number] Age/Sex: 75 / M Adm Date: 2 Loc: Room: [address] [place] [address] Type : ADM INOo Attending Dr: Yoshi Hernandez MD Copies to: MD Manfred Olvera([facility]) DO Bonilla Wilson MD~ Cardiology HPI History of Present Illness Consult Date: 06/26/21 Reason for Consult: Bilateral lower extremity swelling Remote history of orthotopic heart transplantation HPI: Mr. Escobedo is a 75 year old male with known history of orthotopic heart transplantation in 2000 done at [facility] who was admitted to the inpatient hospitalist service last night after presenting from the [facility] with complaints of increasing swelling in [...] the results were sent to his transplant teenage babysitter in [place]. She doesnot know the results. On my evaluation the patient was undergoing bedside transthoracic echocardiography. Preliminary interpretation of the study shows normal resting left ventricular regional wall motion and systolic function. Ejection fraction appears greater than 55%. There is no notable pericardial or pleural effusion. There is no notable/significant valvular heart disease noted. By report the patient's transplant service at [facility] has been contacted and is requested the [...] PO BID 02/02/17 [History Confirmed 06/25/21] omega 1-iod-wss-fish oil 1,000 mg (120 mg-180 mg) capsule [...] x10E3/uL Lymph # (Auto) 1.0 (1.00-4.8) x10E3/uL Levy # (Auto) 0.5 (0.0-0.8) x10E3/uL Eos # [...] Agree with transfer to transplant service at [facility] for further management. Code(s): Z94.1 - Heart transplant status Plan Thank you very much for this kind consultation and for allowing me to participate in the care of this very pleasant patient. Documented By: Bonilla Ortiz MD 06/26/21 1415 Signed By: <Electronically signed by Bonilla Ortiz MD> 06/26/21 1426 [facility] Work Phone: 1(141) 527-880304-07-2022 History and physical note Author Omid Myrick [facility] June 26, 2021 7:44am Note Date/Time June 26, 2021 12:1 6am [facility] [address] [place] [address] Hospitalist H&P Signed Patient: Oliverio Escobedo MR#: [id number] : 1945 Acct:[id number] Age/Sex: 75 / M Adm Date: 2 Loc: 3T Room: [address] [place] [address] Type : ADM INOo Attending Dr: Yoshi Hernandez MD Copies to: MD Manfred Olvera([facility]) DO Audra Wilson APRN Marwan Wassouf, MD~ [...] [facility] but were unable. Patient is hard of [...] PO BID 02/02/17 [History Confirmed 06/25/21] omega 6-rgm-ozt-fish oil 1,000 mg (120 mg-180 mg) capsule [...] Lymph % (Auto) 12.9 % (.) 06/25/21: Levy % (Auto) 7.3 % (.) 06/25/21: Eos % (Auto) 4.6 % (.) 06/25/21: Baso % (Auto) 0.6 % (.) 06/25/21: Neut # (Auto) 5.6 x10E3/uL (1.8-7.7) 06/25/21: Lymph # (Auto) 1.0 x10E3/uL (1.00-4.8) 06/25/21: Levy # (Auto) 0.5 x10E3/uL (0.0-0.8) 06/25/21: Eos [...] MD Documented By: Audra Quinteros APRN 06/25/21 2849 Signed By: <Electronically signed by GABBIE Quinteros> 06/26/21 0057 <Electronically signed by Omid Myrick MD> 06/26/21 7444 [facility] Work Phone: 1(507) 699-841109-30-2021 Evaluation note* Diagnosis [place] coma scale total score 13-15, at hospital admission- Primary Acute kidney injury (HCC) Acute kidney failure, unspecified Heart replaced by transplant (HCC) Heart replaced by transplant Confusion Unspecified psychosis documented in this [facility] Work Phone: 1(548) 319-148709-30-2021 History of Present illness Narrative* 74 yo [...] trazodone, trazodone and aripirazole. Discharged back to [facility] with 2x/week home trips. * Immunosuppression: MMF 250 mg BID, tacrolimus 1.5 mg BID (FK 5.4 on 12/24/20, goal 5-8) * Rejection Hx/DSAs: None documented * Last echo: 12/20/20 RB-Ggxuviekxh-VTF Heather [address] [place] Work Phone: 1(743) 468-116609-28-2021 History of Present illness Narrative* Liliya Baker RN - 12/17/2020 10:31 AM EDT Spoke with nurse from [facility] at this time. They will fax lab work to us from [facility]. documented in this [facility] Work Phone: [phone]) 709-222904-16-2001 History of Present illness Narrative* Mr. Escobedo [...] September 2021. [place] He [place] started Zoloft for depression. 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 Needs assistance with transfers. He has not had any new doctors appointmetns. * Immunosuppression: MMF 250 mg BID, tacrolimus 1 mg BID (FK 11.0 on 10/10/21, goal 5-8) * Rejection Hx/DSAs: None documented * Last echo: 12/20/20 QC-Bjnnsrrfbg-ROV Heather [address] Work Phone: Chief complaint Narrative [...] 04:20 PM , for a telehealth visit. FT-Xrqsslqvdv-ZEQ Heather Vallecillo [address] [place] Work Phone: Evaluation noteNo assessment information available [facility] Work Phone: Evaluation note* Diagnosis Onset Date Resolution Status Acute kidney injury acute Bilateral edema of lower extremity acute Shortness of breath acute [facility] Work Phone: Evaluation note* Diagnosis Onset Date Resolution Status Acute kidney injury acute Bilateral edema of lower extremity acute History of heart transplant acute Shortness of breath acute [facility] Work Phone: Evaluation note* Psychological: Appropriate [...] distress, alert and cooperative, hard of hearing [facility]* Mr. Escobedo is [...] trazodone, trazodone and aripirazole. Discharged back to [facility] with 2x/week home trips. * Immunosuppression: MMF 250 mg BID, tacrolimus 1.5 mg BID (FK 5.4 on 12/24/20, goal 5-8) * Rejection Hx/DSAs: None documented * Last echo: 12/20/20 DT-Smeekhwjvd-LGJ [employer] [address] [place] Work Phone: History of Present [...] B/L LE edema. Spoke with RN at [facility]; states LE edema has been ongoing for several weeks, with a rash . * Labs drawn 06/24/21; BNP 224 * Immunosuppression: MMF 250 mg BID, tacrolimus 1.5 mg BID (FK 5.4 on 12/24/20, goal 5-8) - FK pendingfrom 06/24/21 from SNF * Rejection Hx/DSAs: None documented * Last echo: 12/20/20 UW-Jclirdsoyb-QVZ [employer] [address] [place] Work Phone: History of Present [...] Hx/DSAs: None documented * Last echo: 12/20/20 BA-Fqlvvnyvbc-DPI Heather Vallecillo [address] [place] Work Phone: History [...] Hx/DSAs: None documented * Last echo: 12/20/20 OI-Eigsvzlryk-HXV Heather Vallecillo [address] [place] Work Phone: History [...] Hx/DSAs: None documented * Last echo: 12/20/20 YA-Rugethqhmp-DPM Heather Vallecillo [address] [place] Work Phone: Reason for referral (narrative)* Reason for Referral: HF, DAVID, scabies [facility] Family History No Family History Records FoundUnknown [...] Verbal consent was requested and obtained from OLVIERIO ESCOBEDO on this date, 01/01/2021 02:20 PM [...] content) Reason Comments Altered Mental Status onset [facility]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; staff state pt would not respond and stared off into space Hypotension [facility] staff from [place] rn state BP 70s/ANGELICA [...] mg (COMPLETED) 10 mg, IntraVENous, ONCE, On Smilye 12/19/20 at 0615, For 1 dose 0632 [...] is suspension with MINIMUM of SIZE 8 TURKISH 1500 (Given - Provider: Sola Dee RN)[id number] [...] Active Yoshi Hernandez MD Attending Provider Active Optical Dispenser Relationship Specialty Start Date End Date Michael Carballo [address] [place] [address] PCP - General Specialist 12/17/20 Goals (unrecognized [...] section and content) DATE CREATED AUTHOR 07/14/2021 [facility] DATE CREATED AUTHOR AUTHOR'S ORGANIZ ATION 04/18/2022 [facility] DATE CREATED AUTHOR AUTHOR'S ORGANIZ ATION 07/17/2022 [employer] DATE CREATED AUTHOR AUTHOR'S ORGANIZ ATION 07/31/2022 [facility] DATE CREATED AUTHOR AUTHOR'S ORGANIZ ATION 09/07/2022 [facility] DATE CREATED AUTHOR AUTHOR'S ORGANIZ ATION 09/14/2022 [facility] DATE CREATED AUTHOR AUTHOR'S ORGANIZ ATION 11/21/2022 [facility] FOR RECORDS PERTAINING TO PATIENTS WHO [...] BE BASED ON THE PRIMARY CLINICAL RECORDS. [employer] provides no warranty or guarantee of the accuracy or completeness of information in this document.
--- OUTSIDE RECORDS SUMMARY | 2023-04-16 06:36 | XMS_ITS | CCD ---
Author Name Unknown Address [address] [place] [address] Organization [facility] Care Team Providers Care Hot Mix Operator Name Role Phone Michael Carballo Unavailable Unavailable Unavailable Michael Carballo Primary Care Provider MD Michael Carballo Primary Care Provider JIL Davies Attending Provider DO Manfred Wilson Primary Care Provider [facility] DO Andrew Hernández Emergency Provider [phone] MD Omid Myrick Admit Provider MD Omid Myrick Attending Provider [phone] Al MD Yoshi Campoverde Attending Provider Michael Carballo Unavailable Dionjarret, Pascualaashish Unavailable Palliative Care Unavailable Unavailable Gene Shook Unavailable Felicia Astorga Unavailable [phone] Michael Carballo Primary Care Provider DONNA ARELLANO Referring Unavailable MICHAEL CARBALLO Primary Care Unavailable DIOGENES ., DR MICHAEL Palomino Primary Care Unavailable CARBALLO ., DR MICHAEL Palomino Admitting Unavailable CARBALLO ., DR MICHAEL Palomino Attending Unavailable CARBALLO ., DR MICHAEL Palomino Consulting Unavailable CARBALLO ., DR MICHAEL Palomino Primary Care Unavailable CARBALLO ., DR MIHCAEL Palomino Admitting Unavailable CARBALLO ., DR MICHAEL Plaomino Attending Unavailable CARBALLO ., DR MICHAEL Palomino [...] sources) Allopurinol; Translations: [allopurinol] Drug Allergy 10-16-2018 [facility] (8 sources) ceFAZolin; Translations: [Cefazolin] Drug Allergy 06-25-2021 Rash, Unknown [facility] Comment on above: extensive fiery red and warm flat rash (1 source) Allopurinol Drug Allergy [facility] (1 source) ceFAZolin Drug Allergy [facility] (1 source) Allopurinol Drug Allergy 06-25-2021 [facility] Medications Current Medications Medication Drug [...] Start: 11-03-2018 take 1 capsule by [facility] once daily in the evening dilTIAZem HCl ER Coated Beads 300 MG Oral Capsule Extended Release 24 Hour take 1 capsule every evening Quantity: 0 Refills: 0 Ordered: 04-Jul-2021 Felicia Astorga DO Start : 03-Nov-2018 Active Start: 11-03-2018 take 1 capsule by [facility] once daily dilTIAZem HCl ER Coated Beads 360 MG Oral Capsule Extended Release 24 Hour TAKE 1 CAPSULE Daily Quantity: 30 Refills: 11 Ordered: 03-Nov-2018 Felicia Astorga DO Start : 03-Nov-2018 Active Start: 11-03-2018 take 1 capsule by [facility] once daily dilTIAZem HCl ER Coated Beads 240 MG Oral Capsule Extended Release 24 Hour TAKE 1 CAPSULE Daily Quantity: 90 Refills: 3 Ordered: 24-Dec-2020 Felicia Astorga DO Start : 03-Nov-2018 Active Start: 10-31-2018 take 1 capsule by [facility] every twenty-four hours dilTIAZem 240 mg/24 [...] mg Start: 10-31-2018 take 1 tablet by [facility] three times daily hydrALAZINE HCl - [...] mg Start: 11-02-2018 take 1 capsule by [facility] every twelve hours Mycophenolate Mofetil 250 [...] Tamiko Dsouza Status: Discontinued Generic Substitution Allowed [place] 0-Znm-Qpc-Fish Oil (Fish Oil) 1,000 mg (120 mg-180 mg) Capsule (4 sources) Start: 08-05-2017 take 1 tablet by mouth twice daily [employer] [place] 2-Jhg-Xjl-Fish Oil (Fish Oil) 1,000 mg (120 mg-180 mg) Capsule Active 1 TAB PO Twice daily August 05, 2017 11:13am Start: 08-05-2017 take 1 tablet by anila th once daily [employer] [place] 9-Uls-Akd-Fish Oil (Fish Oil) 1,000 mg (120 mg-180 mg) Capsule Active 1 TAB PO Daily August 05, 2017 11:13am Start: 08-05-2017 take 1 tablet by anila th twice daily [employer] [place] 5-Mkn-Fex-Fish Oil (Fish Oil) 1,000 mg (120 mg-180 [...] tube 2 times a day only on Cvkyil-Pffiturhk-Lkhnbz Quantity: 24 Refills: 0 Ordered: 21-Jan-2016 Warren [...] possible liver damage. take 2 tablets by [facility] every six hours as needed for [...] Active Start: 10-15-2021 take 2 tablets by [facility] once daily busPIRone HCl - 10 MG Oral Tablet TAKE 2 TABLET Daily Quantity: 0 Refills: 0 Ordered: 15-Oct-2021 DO Start : 15-Oct-2021 Active take 1 tablet by [facility] twice daily busPIRone (BUSPAR) 15 MG [...] Allowed Start: 10-31-2018 take 1 capsule by [facility] every six hours as needed diphenhydrAMINE [...] 1 capsule by mouth twice da padmaja [employer] [place]-3 Fatty Acids (FISH OIL) 1000 MG CAPS [...] if Blood Glucose is between 251 - 94822 unit(s) if Blood Glucose is between 301 - 04971 unit(s) if Blood Glucose is between 351 [...] if Blood glucose is between 301 - 14024 unit(s) if Blood glucose is between 351 [...] 02-Jul-2021 Generic Substitution Allowed polyethylene glycol 3350 40685 mg powder for oral solution (7 sources) Osmotic Laxative Start: 10-15-2021 MiraLax Mix-I n [place] 17 GM Oral Packet MIX 1 PACKET [...] Allowed Start: 07-02-2021 take 1 capsule by [facility] every twelve hours Tacrolimus 1 MG [...] Coma; stupor; and brain damage (1 source) [place] coma scale finding; Translations: [[place] coma scale score 13-15, at hospital admission] [...] Problem Lis t Migration; 2012-10-14; Moved to [facility] Feb 17 2013 9:03PM; Fever of [...] right upper extremity 06-30-2021 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 (1 source) half-way current use of insulin 07-02-2021 Past or Other Problems Problem Classification Problem Date Documented Da te Episodic/Chronic Other gastrointestinal disorders (1 source) Dysphagia, unspecified; Translations: [DYSPHAGIA UNSPECIFIED] Onset: 08-08-2021 Episodic 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 (1 source) SWELLING UPPER/LOW EXTREMITIES 06-27-2021 Comment on above: SWELLING UPPER/LOW E XTREMITIES Results Test Name Value Interpretation Reference Range Facility [facility] 09-14-2022 Lab Reports [id number]:127 Normal [facility] VIT D 25-OH LABCORPon 2022 Vitamin D, 25-Hydroxy 29.5 ng/mL Critically low 30.0-100.0 [facility] Comment on above: Result Comment: Jennifer min D deficiency has been defined by the [place] of [employer] and an Endocrine Society practice guideline as a level of serum 25-OH vitamin D less than 20 ng/mL (1,2). The Endocrine Society went on to further define vitamin D insufficiency as a level between 21 and 29 ng/mL (2). 1. IOM ([place] of [employer]). 2010. Dietary reference intakes for calcium and D. [place]: The National Academies Press. 2. E[place] MF, Brad [place], Kristy ORTEGA, et al. Evaluation, treatment, and prevention of vitamin D deficiency: an Endocrine Society clinical practice guideline. JCEM. 2010; 96(7):1911-30. Performed By: #### V ITADLC #### [facility] [address] [place] [address] Dr. Ronnie Pennington CBC AUTO DIFFon 07-24-2022 BASO # 0.0 103/ul Normal 0.0-0.1 [facility] Comment on above: Performed By: #### C BC #### [facility] [address] [address] [address] Ronnie Pennington Basophils/100 WBC (Bld) 0.6 % Normal 0.2-2.0 [facility] Comment on above: Performed By: #### C BC #### [facility] [address] [address] [address] Ronnie Pennington EO # 0.1 103/ul Normal 0.0-0.7 [facility] Comment on above: Performed By: #### C BC #### [facility] [address] [address] [address] Ronnie Penningotn Eosinophils/100 WBC (Bld) 2.0 % Normal 0.9-7.0 [facility] Comment on above: Performed By: #### C BC #### [facility] [address] [place] [address] Dr. Ronnie Pennington Erythrocyte distribution width (RBC) [Ratio] 13.2 % Normal 11.0-15.0 [facility] Comment on above: Performed By: #### C BC #### [facility] [address] [place] [address] Dr. Ronnie Pennington Hematocrit (Bld) [Volume fraction] 33.3 % Critically low 42.0-54.0 [facility] Comment on above: Performed By: #### C BC #### [facility] [address] [place] [address] Dr. Ronnie Pennington Hemoglobin (Bld) [Mass/Vol] 10.0 g/dL Critically low 14.0-18.0 [facility] Comment on above: Performed By: #### C BC #### [facility] [address] [place] [address] Dr. Ronnie Pennington IG # 0.04 10e3/ul Critically high 0.00-0.03 [facility] Comment on above: Performed By: #### C BC #### [facility] [address] [place] [address] Dr. Ronnie Pennington IG % 0.6 % Critically high 0.0-0.5 [facility] Comment on above: Performed By: #### C BC #### [facility] [address] [place] [address] Dr. Ronnie Pennington LYMPH # 1.2 103/ul Normal 1.2-3.8 [facility] Comment on above: Performed By: #### C BC #### [facility] [address] [place] [address] Dr. Ronnie Pennington Lymphocytes/100 WBC (Bld) 17.9 % Critically low 20.5-60.0 [facility] Comment on above: Performed By: #### C BC #### [facility] [address] [place] [address] Dr. Ronnie Pennington MANUAL DIFF REQ NO Normal [facility] Comment on above: Performed By: #### C BC #### [facility] [address] [place] [address] Dr. Ronnie Pennington MCH (RBC) [Entitic mass] 28.2 pg Normal 25.9-34.0 [facility] Comment on above: Performed By: #### C BC #### [facility] [address] [place] [address] Dr. Ronnie Pennington MCHC (RBC) [Mass/Vol] 30.0 g/dL Normal 29.9-35.2 [facility] Comment on above: Performed By: #### C BC #### [facility] [address] [place] [address] Dr. Ronnie Pennington MCV (RBC) [Entitic vol] 94.1 fL Critically high 80.0-94 .0 [facility] Comment on above: Performed By: #### C BC #### [facility] [address] [place] [address] Dr. Ronnie Pennington MONO # 0.4 103/ul Normal 0.3-0.8 [facility] Comment on above: Performed By: #### C BC #### [facility] [address] [place] [address] Dr. Ronnie Pennington Monocytes/100 WBC (Bld) 6.5 % Normal 1.7-12.0 [facility] Comment on above: Performed By: #### C BC #### [facility] [address] [address] [address] Ronnie Pennington NEUT # 4.8 103/ul Normal 1.4-6.5 [facility] Comment on above: Performed By: #### C BC #### [facility] [address] [place] [address] Dr. Ronnie Pennington Neutrophils/100 WBC (Bld) 72.4 % Normal 43.0-75.0 [facility] Comment on above: Performed By: #### C BC #### [facility] [address] [place] [address] Dr. Ronnie Pennington Platelet mean volume (Bld) [Entitic vol] 11.7 fL Normal 9.5-13.5 [facility] Comment on above: Performed By: #### C BC #### [facility] [address] [place] [address] Dr. Ronnie Pennington PLT 137 103/ul Critically low 150-450 [facility] Comment on above: Performed By: #### C BC #### [facility] [address] [place] [address] Dr. Ronnie Pennington RBC 3.54 106/ul Critically low 4.70-6.10 [facility] Comment on above: Performed By: #### C BC #### [facility] [address] [place] [address] Dr. Ronnie Pennington WBC 6.6 103/ul Normal 4.0-11.0 [facility] Comment on above: Performed By: #### C BC #### [facility] [address] [place] [address] Dr. Ronnie Pennington GLYCOHEMOGLOBIN A1Con 2022 ADA RECOMMENDATION SEE BELOW Normal [facility] Comment on above: Result Comment: ADA RECOMMENDED LIMIT 4.0 - 6.0 ADA THERAPEUTIC TARGET < 7.0 ACTION SUGGESTED > 7.0 Performed By: #### A 1C #### [facility] [address] [place] [address] Dr. Ronnie Pennington Glucose [Mass/Vol] 171 mg/dL Normal [facility] Comment on above: Performed By: #### A 1C #### [facility] [address] [address] [address] Ronnie Pennington HbA1c (Bld) [Mass fraction] 7.6 % Critically high 4.5-6.2 [facility] Comment on above: Performed By: #### A 1C #### [facility] [address] [address] [address] Ronnie Pennington MAGNESIUMon 07-24-2022 Magnesium [Mass/Vol] 2.3 mg/dL Normal 1.8-2.4 [facility] Comment on above: Performed By: #### M Mere, TSH, CMP ####[facility] [address] [address]Dr. Ronnie Pennington PROF 14(COMP METB)on 023 Albumin [Mass/Vol] 2.8 g/dL Critically low 3.4-5.0 [facility] Comment on above: Performed By: #### Joaquin Severino TSH, CMP ####[facility] [address] [address]DrFreddy Pennington Albumin/Globulin [Mass ratio] 0.7 {ratio} Normal [facility] Comment on above: Performed By: #### Joaquin Severino TSH, CMP ####[facility] [address] [address]DrFreddy Pennington ALP [Catalytic activity/Vol] 69 U/L Normal 46-116 [facility] Comment on above: Performed By: #### M Mere TSH, CMP ####[facility] [address] [address]DrFreddy Pennington ALT [Catalytic activity/Vol] 8 U/L Critically low 16-63 [facility] Comment on above: Performed By: #### Joaquin Severino TSH, CMP ####[facility] [address] [address]DrFreddy Pennington Anion gap [Moles/Vol] 9.9 mmol/L Normal [facility] Comment on above: Performed By: #### M G TSH, CMP ####[facility] [address] [address]DrFreddy Pennington AST [Catalytic activity/Vol] 9 U/L Critically low 15-37 [facility] Comment on above: Performed By: #### M Mere TSH, CMP ####[facility] [address] [place], [place] [address]Dr. Ronnie Pennington Bilirubin [Mass/Vol] 0.2 mg/dL Normal 0.2-1.0 [facility] Comment on above: Performed By: #### Joaquin Severino TSH, CMP ####[facility] [address] [place], [place] [address]Dr. Ronnie Pennington Calcium [Mass/Vol] 8.9 mg/dL Normal 8.5-10.1 [facility] Comment on above: Performed By: #### Joqauin Severino TSH, CMP ####[facility] [address] [place], [place] [address]Dr. Ronnie Pennington Chloride [Moles/Vol] 104 mmol/L Normal 98-107 [facility] Comment on above: Performed By: #### Joaquin Severino TSH, CMP ####[facility] [address] [place], [place] [address]Dr. Ronnie Pennington CO2 [Moles/Vol] 28.4 mmol/L Normal 21.0-32.0 [facility] Comment on above: Performed By: #### Joaquin Severino TSH, CMP ####[facility] [address] [place], [place] [address]Dr. Ronnie Pennington Creatinine [Mass/Vol] 2.09 mg/dL Critically high 0.70-1.30 [facility] Comment on above: Performed By: #### Joaquin Severino, TSH, CMP ####[facility] [address] [place], [place] [address]Dr. Salomelenny Pennington EGFR-AF LUXEMBOURGER 37 mL/min/1.73m2 Critically low >=60 [facility] Comment on above: Performed By: #### Joaquin Severino, TSH, CMP ####[facility] [address] [place], [place] [address]Dr. Ronnie Pennington EGFR-NON AF LUXEMBOURGER 31 mL/min/1.73m2 Critically low >=60 [facility] Comment on above: Performed By: #### M G, TSH, CMP ####[facility] [address] [address]Dr. Ronnie Pennington Globulin (S) [Mass/Vol] 3.9 g/dL Normal [facility] Comment on above: Performed By: #### M G, TSH, CMP ####[facility] [address] [address]Dr. Ronnie Pennington Glucose [Mass/Vol] 165 mg/dL Critically high 74-106 [facility] Comment on above: Performed By: #### M G, TSH, CMP ####[facility] [address] [place], [place] [address]Dr. Ronnie Pennington Potassium [Moles/Vol] 4.3 mmol/L Normal 3.5-5.1 [facility] Comment on above: Performed By: #### M G, TSH, CMP ####[facility] [address] [place], [place] [address]Dr. Ronnie Pennington Protein [Mass/Vol] 6.7 g/dL Normal 6.4-8.2 [facility] Comment on above: Performed By: #### M G, TSH, CMP ####[facility] [address] [place], [place] [address]Dr. Ronnie Pennington Sodium [Moles/Vol] 138 mmol/L Normal 136-145 [facility] Comment on above: Performed By: #### M G, TSH, CMP ####[facility] [address] [place], [place] [address]Dr. Ronnie Pennington Urea nitrogen [Mass/Vol] 33.0 mg/dL Critically high 7.0-18.0 [facility] Comment on above: Performed By: #### M G, TSH, CMP ####[facility] [address] [place], [place] [address]Dr. Ronnie Pennington Urea nitrogen/Creatinine [Mass ratio] 15.8 mg/mg Normal [facility] Comment on above: Performed By: #### M G, TSH, CMP ####[facility] [address] [place], [place] [address]Dr. Ronnie Pennington TSHon 07-24-2022 TSH 2.763 uIU/mL Normal 0.358-3.74 0 [facility] Comment on above: Performed By: #### M G, TSH, CMP ####[facility] [address] [address]Dr. Ronnie Pennington FK506 (TACROLIMUS) WHOLE BLO ODon 07-15-2022 Tacrolimus (FK506), Blood 9.4 ng/mL Normal 2.0-20.0 [facility] Comment on above: Result Comment: Trou gh (immediately following transplant) 15.0 . Trough (steady state, 2 weeks or more after transplant): 3.0 - 8.0 . Performed by LC-MS/MS technology. Performed By: #### F [id number] #### [facility] [address] [place] [address] Dr. Ronnie Pennington CBC AUTO DIFFon 07-13-2022 BASO # 0.0 103/ul Normal 0.0-0.1 [facility] Comment on above: Performed By: #### C BC #### [facility] [address] [place] [address] Dr. Ronnie Pennington Basophils/100 WBC (Bld) 0.3 % Normal 0.2-2.0 [facility] Comment on above: Performed By: #### C BC #### [facility] [address] [place] [address] Dr. Ronnie Pennington EO # 0.2 103/ul Normal 0.0-0.7 [facility] Comment on above: Performed By: #### C BC #### [facility] [address] [place] [address] Dr. Ronnie Pennington Eosinophils/100 WBC (Bld) 2.5 % Normal 0.9-7.0 [facility] Comment on above: Performed By: #### C BC #### [facility] [address] [place] [address] Dr. Ronnie Pennington Erythrocyte distribution width (RBC) [Ratio] 13.1 % Normal 11.0-15.0 [facility] Comment on above: Performed By: #### C BC #### [facility] [address] [place] [address] Dr. Ronnie Pennington Hematocrit (Bld) [Volume fraction] 33.4 % Critically low 42.0-54.0 [facility] Comment on above: Performed By: #### C BC #### [facility] [address] [place] [address] Dr. Ronnie Pennington Hemoglobin (Bld) [Mass/Vol] 10.4 g/dL Critically low 14.0-18.0 [facility] Comment on above: Performed By: #### C BC #### [facility] [address] [place] [address] Dr. Ronnie Pennington IG # 0.04 10e3/ul Critically high 0.00-0.03 [facility] Comment on above: Performed By: #### C BC #### [facility] [address] [place] [address] Dr. Ronnie Pennington IG % 0.6 % Critically high 0.0-0.5 [facility] Comment on above: Performed By: #### C BC #### [facility] [address] [place] [address] Dr. Ronnie Pennington LYMPH # 1.2 103/ul Normal 1.2-3.8 [facility] Comment on above: Performed By: #### C BC #### [facility] [address] [place] [address] Dr. Ronnie Pennington Lymphocytes/100 WBC (Bld) 16.8 % Critically low 20.5-60.0 [facility] Comment on above: Performed By: #### C BC #### [facility] [address] [place] [address] Dr. Ronnie Pennington MANUAL DIFF REQ NO Normal [facility] Comment on above: Performed By: #### C BC #### [facility] [address] [place] [address] Dr. Ronnie Pennington MCH (RBC) [Entitic mass] 28.5 pg Normal 25.9-34.0 [facility] Comment on above: Performed By: #### C BC #### [facility] [address] [place] [address] Dr. Ronnie Pennington MCHC (RBC) [Mass/Vol] 31.1 g/dL Normal 29.9-35.2 [facility] Comment on above: Performed By: #### C BC #### [facility] [address] [place] [address] Dr. Ronnie Pennington MCV (RBC) [Entitic vol] 91.5 fL Normal 80.0-94.0 [facility] Comment on above: Performed By: #### C BC #### [facility] [address] [place] [address] Dr. Ronnie Pennington MONO # 0.5 103/ul Normal 0.3-0.8 [facility] Comment on above: Performed By: #### C BC #### [facility] [address] [place] [address] Dr. Ronnie Pennington Monocytes/100 WBC (Bld) 7.5 % Normal 1.7-12.0 [facility] Comment on above: Performed By: #### C BC #### [facility] [address] [place] [address] Dr. Ronnie Pennington NEUT # 5.0 103/ul Normal 1.4-6.5 [facility] Comment on above: Performed By: #### C BC #### [facility] [address] [place] [address] Dr. Ronnie Pennington Neutrophils/100 WBC (Bld) 72.3 % Normal 43.0-75.0 [facility] Comment on above: Performed By: #### C BC #### [facility] [address] [place] [address] Dr. Ronnie Pennington Platelet mean volume (Bld) [Entitic vol] 11.8 fL Normal 9.5-13.5 [facility] Comment on above: Performed By: #### C BC #### [facility] [address] [place] [address] Dr. Ronnie Pennington PLT 126 103/ul Critically low 150-450 [facility] Comment on above: Performed By: #### C BC #### [facility] [address] [place] [address] Dr. Rnonie Pennington RBC 3.65 106/ul Critically low 4.70-6.10 [facility] Comment on above: Performed By: #### C BC #### [facility] [address] [address] [address] Ronnie Pennington WBC 6.9 103/ul Normal 4.0-11.0 [facility] Comment on above: Performed By: #### C BC #### [facility] [address] [address] [address] Ronnie Pennington MAGNESIUMon 07-13-2022 Magnesium [Mass/Vol] 2.1 mg/dL Normal 1.8-2.4 [facility] Comment on above: Performed By: #### C MP, MG #### [facility] [address] [place] [address] Dr. Ronnie Pennington Office Visit (Cardiology)on 07-13-2022 Follow-up visit Patient Instructions -Please bring a list of your medications to every appointment. -We will schedule you a follow up appointment in # months. We will call you with this date. -If you have any questions, please do not hesitate to contact our office at [phone]. For after hours issues, please call [phone]. Chief Complaint OLIVERIO ESCOBEDO is being seen [...] September 2021. [facility] to live in jail. He has started Zoloft for depression. He [...] TabletTake 1 tablet twice daily MiraLax Mix-In [place] 17 GM Oral PacketMIX 1 PACKET in [...] TABLET Bedtime (more content not included)... Normal [facility] PROF 14(COMP METB)on 023 Albumin [Mass/Vol] 2.9 g/dL Critically low 3.4-5.0 [facility] Comment on above: Performed By: #### C MP, MG #### [facility] [address] [place] [address] Dr. Ronnie Pennington Albumin/Globulin [Mass ratio] 0.7 {ratio} Normal [facility] Comment on above: Performed By: #### C MP, MG #### [facility] [address] [address] [address] Ronnie Pennington ALP [Catalytic activity/Vol] 71 U/L Normal 46-116 [facility] Comment on above: Performed By: #### C MP, MG #### [facility] [address] [place] [address] Dr. Ronnie Pennington ALT [Catalytic activity/Vol] 12 U/L Critically low 16-63 [facility] Comment on above: Performed By: #### C MP, MG #### [facility] [address] [address] [address] Ronnie Pennington Anion gap [Moles/Vol] 15.1 mmol/L Normal [facility] Comment on above: Performed By: #### C MP, MG #### [facility] [address] [place] [address] Dr. Ronnie Pennington AST [Catalytic activity/Vol] 11 U/L Critically low 15-37 [facility] Comment on above: Performed By: #### C MP, MG #### [facility] [address] [place] [address] Dr. Ronnie Pennington Bilirubin [Mass/Vol] 0.2 mg/dL Normal 0.2-1.0 [facility] Comment on above: Performed By: #### C MP, MG #### [facility] [address] [place] [address] Dr. Ronnie Pennington Calcium [Mass/Vol] 9.2 mg/dL Normal 8.5-10.1 [facility] Comment on above: Performed By: #### C MP, MG #### [facility] [address] [place] [address] Dr. Ronnie Pennington Chloride [Moles/Vol] 105 mmol/L Normal 98-107 [facility] Comment on above: Performed By: #### C MP, MG #### [facility] [address] [place] [address] Dr. Ronnie Pennington CO2 [Moles/Vol] 28.1 mmol/L Normal 21.0-32.0 [facility] Comment on above: Performed By: #### C MP, MG #### [facility] [address] [place] [address] Dr. Ronnie Pennington Creatinine [Mass/Vol] 2.14 mg/dL Critically high 0.70-1.30 [facility] Comment on above: Performed By: #### C MP, MG #### [facility] [address] [place] [address] Dr. Ronnie Pennington EGFR-AF LUXEMBOURGER 36 mL/min/1.73m2 Critically low >=60 [facility] Comment on above: Performed By: #### C MP, MG #### [facility] [address] [place] [address] Dr. Ronnie Pennington EGFR-NON AF LUXEMBOURGER 30 mL/min/1.73m2 Critically low >=60 [facility] Comment on above: Performed By: #### C MP, MG #### [facility] [address] [place] [address] Dr. Ronnie Pennington Globulin (S) [Mass/Vol] 4.0 g/dL Normal [facility] Comment on above: Performed By: #### C MP, MG #### [facility] [address] [place] [address] Dr. Ronnie Pennington Glucose [Mass/Vol] 150 mg/dL Critically high 74-106 [facility] Comment on above: Performed By: #### C MP, MG #### [facility] [address] [place] [address] Dr. Ronnie Pennington Potassium [Moles/Vol] 4.2 mmol/L Normal 3.5-5.1 [facility] Comment on above: Performed By: #### C MP, MG #### [facility] [address] [address] [address] Ronnie Pennington Protein [Mass/Vol] 6.9 g/dL Normal 6.4-8.2 [facility] Comment on above: Performed By: #### C MP, MG #### [facility] [address] [address] [address] Ronnie Pennington Sodium [Moles/Vol] 144 mmol/L Normal 136-145 [facility] Comment on above: Performed By: #### C MP, MG #### [facility] [address] [address] [address] Ronnie Pennington Urea nitrogen [Mass/Vol] 32.0 mg/dL Critically high 7.0-18.0 [facility] Comment on above: Performed By: #### C MP, MG #### [facility] [address] [address] [address] Ronnie Pennington Urea nitrogen/Creatinine [Mass ratio] 15.0 mg/mg Normal [facility] Comment on above: Performed By: #### C MP, MG #### [facility] [address] [address] [address] Ronnie Pennington Transplant SW Assessment Upd [...] Jul 15 2022 12:57PM EST (Author) Normal [employer] Consultation Noteon 06-10-19 Consultation Note [id number] Normal [facility] TSHon 06-05-2022 TSH 3.293 uIU/mL Normal 0.358-3.74 0 [facility] Comment on above: Performed By: #### T SH #### [facility] [address] [address] [address] Ronnie Pennington Cult,Woundon 04-19-2022 Cult,Wound Specimen [...] Tetracycline <=1 SUSCEPTIBLE Trimethoprim/Sulfa <=10 SUSCEPTIBLE Susceptible [facility] Comment on above: Performed By: #### W DC #### [id number] [place] [address] Towboat Engineer: David Gonzalez MD PROF CHEM 8 ([facility])on Anion gap [Moles/Vol] 14.9 mmol/L Normal [facility] Comment on above: Performed By: #### B MP #### [facility] [address] [place] [address] Dr. Ronnie Pennington Calcium [Mass/Vol] 8.8 mg/dL Normal 8.5-10.1 [facility] Comment on above: Performed By: #### B MP #### [facility] [address] [place] [address] Dr. Ronnie Pennington Chloride [Moles/Vol] 104 mmol/L Normal 98-107 [facility] Comment on above: Performed By: #### B MP #### [facility] [address] [place] [address] Dr. Ronnie Pennington CO2 [Moles/Vol] 26.6 mmol/L Normal 21.0-32.0 [facility] Comment on above: Performed By: #### B MP #### [facility] [address] [address] [address] Ronnie Pennington Creatinine [Mass/Vol] 2.03 mg/dL Critically high 0.70-1.30 [facility] Comment on above: Performed By: #### B MP #### [facility] [address] [address] [address] Ronnie Pennington EGFR-AF LUXEMBOURGER 39 mL/min/1.73m2 Critically low >=60 [facility] Comment on above: Performed By: #### B MP #### [facility] [address] [address] [address] Ronnie Pennington EGFR-NON AF LUXEMBOURGER 32 mL/min/1.73m2 Critically low >=60 [facility] Comment on above: Performed By: #### B MP #### [facility] [address] [address] [address] Ronnie Pennington Glucose [Mass/Vol] 209 mg/dL Critically high 74-106 [facility] Comment on above: Performed By: #### B MP #### [facility] [address] [address] [address] Ronnie Pennington Potassium [Moles/Vol] 4.5 mmol/L Normal 3.5-5.1 [facility] Comment on above: Performed By: #### B MP #### [facility] [address] [address] [address] Ronnie Pennington Sodium [Moles/Vol] 141 mmol/L Normal 136-145 [facility] Comment on above: Performed By: #### B MP #### [facility] [address] [address] [address] Ronnie Pennington Urea nitrogen [Mass/Vol] 26.0 mg/dL Critically high 7.0-18.0 [facility] Comment on above: Performed By: #### B MP #### [facility] [address] [address] [address] Ronnie Pennington Urea nitrogen/Creatinine [Mass ratio] 12.8 mg/mg Normal [facility] Comment on above: Performed By: #### B #### [facility] [address] [place], [place] [address] Dr. Ronnie Pennington Office Visit (Cardiology)on 10-15-2021 [...] last office visit; documented BPs at the [facility] 120-130s/70-80s. Benadryl 25 mg q6h [...] Oral TabletTak (more content not included)... Normal [employer] XR MODIFIED BARIUM SWALLOWon 08-05-2021 XR MODIFIED [...] JARON NESS Date: 2021-08-05 15:10 Normal [facility] CBC AND DIFFERENTIALon 07-13 % AUTOMATED IMMATURE GRAN 0.5 % Normal 0.0 - 0.9 [facility] Comment on above: Result Comment: Christal ture Granulocyte Count (IG) includes promyelocytes, myelocytes and metamyelocytes but does not include bands. Percent differential counts (%) should be interpreted in the context of the absolute cell counts (cells/L). Performed By: #### C BCDF #### [address] [address] Basophils (Bld) [#/Vol] 0.02 10*3/uL Normal 0.00 - 0.10 [facility] Comment on above: Performed By: #### C BCDF #### [address] [address] Basophils/100 WBC (Bld) 0.3 % Normal 0.0 - 2.0 [facility] Comment on above: Performed By: #### C BCDF #### [address] [address] Eosinophils (Bld) [#/Vol] 0.07 10*3/uL Normal 0.00 - 0.40 [facility] Comment on above: Performed By: #### C BCDF #### [address] [address] Eosinophils/100 WBC (Bld) 0.9 % Normal 0.0 - 6.0 [facility] Comment on above: Performed By: #### C BCDF #### [address] [address] Erythrocyte distribution width (RBC) [Ratio] 14.4 % Normal 11.5 - 14.5 [facility] Comment on above: Performed By: #### C BCDF #### [address] [place] [address] Hematocrit (Bld) [Volume fraction] 35.5 % Low 41.0 - 52.0 [facility] Comment on above: Performed By: #### C BCDF #### [address] [place] [address] Hemoglobin (Bld) [Mass/Vol] 10.8 g/dL Low 13.5 - 17.5 [facility] Comment on above: Performed By: #### C BCDF #### [address] [place] [address] Lymphocytes (Bld) [#/Vol] 0.42 10*3/uL Low 0.80 - 3.00 [facility] Comment on above: Performed By: #### C BCDF #### [address] [place] [address] Lymphocytes/100 WBC (Bld) 5.6 % Normal 13.0 - 44.0 [facility] Comment on above: Performed By: #### C BCDF #### [address] [place] [address] MCHC (RBC) [Mass/Vol] 30.4 g/dL Low 32.0 - 36.0 [facility] Comment on above: Performed By: #### C BCDF #### [address] [address] MCV (RBC) [Entitic vol] 89 fL Normal 80 - 100 [facility] Comment on above: Performed By: #### C BCDF #### [address] [address] Monocytes (Bld) [#/Vol] 0.07 10*3/uL Normal 0.05 - 0.80 [facility] Comment on above: Performed By: #### C BCDF #### [address] [address] Monocytes/100 WBC (Bld) 0.9 % Normal 2.0 - 10.0 [facility] Comment on above: Performed By: #### C BCDF #### [address] [address] Neutrophils (Bld) [#/Vol] 6.82 10*3/uL High 1.60 - 5.50 [facility] Comment on above: Performed By: #### C BCDF #### [address] [address] Neutrophils/100 WBC (Bld) 91.8 % Normal 40.0 - 80.0 [facility] Comment on above: Performed By: #### C BCDF #### [address] [address] NUCLEATED RBC 0.0 /100 WBC Normal 0.0 - 0.0 [facility] Comment on above: Performed By: #### C BCDF #### [address] [address] Platelets (Bld) [#/Vol] 161 10*3/uL Normal 150 - 450 [facility] Comment on above: Performed By: #### C BCDF #### [address] [address] RBC 3.98 x10E12/L Low 4.50 - 5.90 [facility] Comment on above: Performed By: #### C BCDF #### [address] [address] WBC (Bld) [#/Vol] 7.4 10*3/uL Normal 4.4 - 11.3 [facility] Comment on above: Performed By: #### C BCDF #### [address] [address] Complete Blood Count + Diffe rentialon 07-13-2021 Basophils/100 WBC (Bld) 0.3 % 0.0 - 2.0 [facility] [employer] [address] [place] Work Phone: Erythrocyte distribution width (RBC) [Ratio] 14.4 % See Below [facility] [employer] [address] [place] Work Phone: Comment on above: Reference Range: 11. 5 - 14.5 Hematocrit (Bld) [Volume fraction] 35.5 % below low threshold See Below [facility] [address] [place] Work Phone: Comment on [...] 161 10*3/uL 150 - 450 [facility] [address] [place] Work Phone: RBC (Bld) [#/Vol] 3.98 {x10E12/L} below low threshold See Below [facility] [address] [place] Work Phone: Comment on above: Reference Range: 4.5 0 - 5.90 WBC (Bld) [#/Vol] 7.4 10*3/uL 4.4 - 11.3 [facility] [employer] [address] [place] Work Phone: Complete Blood Count + Differential 0.02 {x10E9/L} See Below [facility] [address] [place] Work Phone: Comment on above: Reference Range: 0.0 0 - 0.10 Complete Blood Count + Differential 0.07 {x10E9/L} See Below [facility] [address] [place] Work Phone: Comment on above: Reference Range: 0.0 0 - 0.40 Reference Range: 0.0 5 - 0.80 Complete Blood Count + Differential 0.42 {x10E9/L} below low threshold See Below [facility] [address] [place] Work Phone: Comment on above: Reference Range: 0.8 0 - 3.00 Complete Blood Count + Differential 6.82 {x10E9/L} above high threshold See Below [facility] [employer] [address] [place] Work Phone: Comment on above: Reference Range: 1.6 0 - 5.50 Complete Blood Count + Differential 0.9 % 0.0 - 6.0 [facility] [employer] [address] [place] Work Phone: Complete Blood Count + Differential 0.5 % 0.0 - 0.9 [facility] [address] [place] Work Phone: Comment on above: Immature Granulocyte Count (IG) includes promyelocytes, myelocytes and metamyelocytes but does not include bands. Percent differential counts (%) should be interpreted in the context of the absolute cell counts (cells/L). Complete Blood Count + Differential 0.0 {/100_WBC} 0.0 - 0.0 [facility] [address] [place] Work Phone: Coronavirus 2019 RNA by PCR, Symptomaticon 07-03-2021 Date and time of symptom onset [id number] [facility] [address] [place] Work Phone: Coronavirus 2019 RNA by PCR, Symptomatic Not detected Normal See Below [facility] [address] [place] Work Phone: Comment on above: SOURCE: Nasal, Nasop haryngealReference Range: Not Detected.This test has received FDA Emergency Use Authorization (EUA) and has been verified by [facility] ([facility]). This test is only authorized for the duration of time that circumstances exist to justify the authorization of the emergency use of in vitro diagnostic tests for the detection of SARS-CoV-2 virus and/or diagnosis of COVID-19 infection under section 564(b)(1) of the Act, 21 U.S.C. 360bbb-3(b)(1), unless the authorization is terminated or revoked sooner. [facility] is certified under CLIA-88 as qualified to perform high complexity testing. Testing is performed in the [facility] located at [address] [place] [address].SARS-CoV-2/Flu/RSV Multiplex Test: Fact sheet for providers: https://www.fda.gov/media/541863/downloadFact sheet for patients: https://www.fda.gov/media/301286/download Laboratory - Chemistry and C hemistry - challengeon 07-03-2021 Glucose [Mass/Vol] 330 mg/dL above high threshold 74 - 99 [facility] [address] [place] Work Phone: Glucose [Mass/Vol] [...] mmol/L 21 - 32 [facility] [address] [place] Work Phone: Creatinine [Mass/Vol] 1.80 mg/dL above high threshold See Below [facility] [address] [place] Work Phone: Comment on above: Reference Range: 0.5 0 - 1.30 Glucose [Mass/Vol] 246 mg/dL above high threshold 74 - 99 [facility] [address] [place] Work Phone: Potassium [Moles/Vol] 3.9 mmol/L 3.5 - 5.3 [facility] [address] [place] Work Phone: [phone] Sodium [Moles/Vol] 138 mmol/L 136 - 145 [facility] [address] [place] Work Phone: Urea nitrogen [...] below low threshold See Below [facility] [address] [place] Work Phone: Comment on above: Reference Range: 41. 0 - 52.0 Hemoglobin (Bld) [Mass/Vol] 10.8 g/dL below low threshold See Below [facility] [address] [place] Work Phone: Comment on above: Reference Range: 13. 5 - 17.5 MCHC (RBC) [Mass/Vol] 30.8 g/dL below low threshold See Below [facility] [address] [place] Work Phone: Comment on above: Reference Range: 32. 0 - 36.0 MCV (RBC) [Entitic vol] 89 fL 80 - 100 [facility] [address] [place] Work Phone: Platelets (Bld) [#/Vol] 171 10*3/uL 150 - 450 [facility] [address] [place] Work Phone: RBC (Bld) [#/Vol] 3.94 {x10E12/L} below low threshold See Below [facility] [address] [place] Work Phone: Comment on above: Reference Range: 4.5 0 - 5.90 WBC (Bld) [#/Vol] 6.0 10*3/uL 4.4 - 11.3 [facility] [address] [place] Work Phone: No Panel Informationon 07-03 38 {mL/min/1.73m2} Abnormal >90 [facility] [address] [place] Work Phone: Comment on above: CALCULATIONS OF ERNST MATED GFR ARE PERFORMED USING THE 2020 CKD-EPI STUDY REFIT EQUATION WITHOUT THE RACE VARIABLE FOR THE IDMS-TRACEABLE CREATININE METHODS.https://jasn.asnjournals.org/content/early// ASN.5645002968 0.0 {/100_WBC} 0.0-0.0 [facility] [address] [place] Work Phone: Tacrolimuson 07-03-2021 Tacrolimus (Bld) [Mass/Vol] 5.5 ng/mL 2.0 - 15.0 [facility] [address] [place] Work Phone: Comment on above: NOTE: Result was obt ained using a chemiluminescent microparticle immunoassay (CMIA) on the [employer] i system.Optimal therapeutic ranges for immuno-suppressant drugs [...] high threshold 74 - 99 [facility] [address] [place] Work Phone: [phone] Glucose [Mass/Vol] 286 mg/dL above high threshold 74 - 99 [facility] [address] [place] Work Phone: [phone] Glucose [Mass/Vol] 269 mg/dL above high threshold 74 - 99 [facility] [address] [place] Work Phone: [phone] Anion gap [Moles/Vol] 15 mmol/L 10 - 20 [facility] [address] [place] Work Phone: [phone] Calcium [Mass/Vol] 9.1 mg/dL 8.6 - 10.6 [facility] [address] [place] Work Phone: [phone] Chloride [Moles/Vol] 102 mmol/L 98 - 107 [facility] [address] [place] Work Phone: [phone] CO2 [Moles/Vol] 27 mmol/L 21 - 32 [facility] [address] [place] Work Phone: [phone] Creatinine [Mass/Vol] 1.97 mg/dL above high threshold See Below [facility] [address] [place] Work Phone: [phone] Comment on above: Reference Range: 0.5 0 - 1.30 Glucose [Mass/Vol] 197 mg/dL above high threshold 74 - 99 [facility] [address] [place] Work Phone: Potassium [Moles/Vol] 4.1 mmol/L 3.5 - 5.3 [facility] [address] [place] Work Phone: Sodium [Moles/Vol] 140 mmol/L 136 - 145 [facility] [address] [place] Work Phone: Urea nitrogen [Mass/Vol] 41 mg/dL above high threshold 6 - 23 [facility] [address] [place] Work Phone: Glucose [Mass/Vol] 201 mg/dL above high threshold 74 - 99 [facility] [address] [place] Work Phone: Laboratory - Hematology and Cell countson 07-02-2021 Erythrocyte distribution width (RBC) [Ratio] 14.1 % See Below [facility] [address] [place] Work Phone: Comment on above: Reference Range: 11. 5 - 14.5 Hematocrit (Bld) [Volume fraction] 33.6 % below low threshold See Below [facility] [address] [place] Work Phone: Comment on [...] 160 10*3/uL 150 - 450 [facility] [address] [place] Work Phone: RBC (Bld) [...] RACE VARIABLE FOR THE IDMS-TRACEABLE CREATININE METHODS.https://jasn.asnjournals.org/content/// ASN.1061525372 0.0 {/100_WBC} 0.0-0.0 [facility] [address] [place] Work Phone: Tacrolimuson 07-02-2021 Tacrolimus (Bld) [Mass/Vol] 7.6 ng/mL 2.0 - 15.0 [facility] [address] [place] Work Phone: Comment on above: NOTE: Result was obt ained using a chemiluminescent microparticle immunoassay (CMIA) on the [employer] i system.Optimal therapeutic ranges for immuno-suppressant drugs depend upon an individualpatient's current clinical state, type oforgan transplant, time post-transplant,co-administration of other immunosuppressants,and other clinical factors. The results ofthis test should be correlated with additionalclinical and laboratory data before changesin treatment regimens are made. Hemoglobin A1Con 07-01-2021 Glucose [Mass/Vol] 194 mg/dL [facility] [address] [place] Work Phone: HbA1c (Bld) [...] 13-18 <7.5 7-12 <8.0 0- 6 7.5-8.5 [place] [employer]. Diabetes Care 33(S1), Mar 2009. Laboratory - Chemistry and C hemistry - challengeon 07-01-2021 Glucose [Mass/Vol] 188 mg/dL above high threshold 74 - 99 [facility] [address] [place] Work Phone: Glucose [Mass/Vol] [...] mmol/L 21 - 32 [facility] [address] [place] Work Phone: Creatinine [Mass/Vol] 1.99 mg/dL above high threshold See Below [facility] [address] [place] Work Phone: Comment on above: Reference Range: 0.5 0 - 1.30 Glucose [Mass/Vol] 227 mg/dL above high threshold 74 - 99 [facility] [address] [place] Work Phone: Glucose [Mass/Vol] 243 mg/dL above high threshold 74 - 99 [facility] [address] [place] Work Phone: Potassium [Moles/Vol] 4.0 mmol/L 3.5 - 5.3 [facility] [address] [place] Work Phone: Sodium [Moles/Vol] 141 mmol/L 136 - 145 [facility] [address] [place] Work Phone: Urea nitrogen [Mass/Vol] 38 mg/dL above high threshold 6 - 23 [facility] [address] [place] Work Phone: Laboratory - [...] below low threshold See Below [facility] [address] [place] Work Phone: Comment on above: Reference Range: 32. 0 - 36.0 MCV (RBC) [Entitic vol] 90 fL 80 - 100 [facility] [address] [place] Work Phone: Platelets (Bld) [#/Vol] 157 10*3/uL 150 - 450 [facility] [address] [place] Work Phone: RBC (Bld) [#/Vol] 3.83 {x10E12/L} below low threshold See Below [facility] [address] [place] Work Phone: Comment on above: Reference Range: 4.5 0 - 5.90 WBC (Bld) [#/Vol] 6.8 10*3/uL 4.4 - 11.3 [facility] [address] [place] Work Phone: No Panel Informationon 07-01 34 {mL/min/1.73m2} Abnormal >90 [facility] [address] [place] Work Phone: Comment on above: CALCULATIONS OF ERNST MATED GFR ARE PERFORMED USING THE 2020 CKD-EPI STUDY REFIT EQUATION WITHOUT THE RACE VARIABLE FOR THE IDMS-TRACEABLE CREATININE METHODS.https://jasn.asnjournals.org/content// ASN.0290094368 0.0 {/100_WBC} 0.0-0.0 [facility] [address] [place] Work Phone: Tacrolimuson 07-01-2021 Tacrolimus (Bld) [Mass/Vol] 9.3 ng/mL 2.0 - 15.0 [facility] [address] [place] Work Phone: Comment on above: NOTE: Result was obt ained using a chemiluminescent microparticle immunoassay (CMIA) on the [employer] i system.Optimal therapeutic ranges for immuno-suppressant drugs [...] high threshold 74 - 99 [facility] [address] [place] Work Phone: [phone] Glucose [Mass/Vol] 236 mg/dL above high threshold 74 - 99 [facility] [address] [place] Work Phone: [phone] Anion gap [Moles/Vol] 17 mmol/L 10 - 20 [facility] [address] [place] Work Phone: [phone] Calcium [Mass/Vol] 8.6 mg/dL 8.6 - 10.6 [facility] [address] [place] Work Phone: [phone] Chloride [Moles/Vol] 100 mmol/L 98 - 107 [facility] [address] [place] Work Phone: [phone] CO2 [Moles/Vol] 28 mmol/L 21 - 32 [facility] [address] [place] Work Phone: [phone] Creatinine [Mass/Vol] 2.26 mg/dL above high threshold See Below [facility] [address] [place] Work Phone: [phone] Comment on above: Reference Range: 0.5 0 - 1.30 Glucose [Mass/Vol] 205 mg/dL above high threshold 74 - 99 [facility] [address] [place] Work Phone: [phone] Potassium [Moles/Vol] 3.8 mmol/L 3.5 - 5.3 [facility] [address] [place] Work Phone: Sodium [Moles/Vol] 141 mmol/L 136 - 145 [facility] [address] [place] Work Phone: Urea nitrogen [Mass/Vol] 39 mg/dL above high threshold 6 - 23 [facility] [address] [place] Work Phone: Laboratory - Hematology and Cell countson 06-30-2021 Erythrocyte distribution width (RBC) [Ratio] 14.3 % See Below [facility] [address] [place] Work Phone: Comment on above: Reference Range: 11. 5 - 14.5 Hematocrit (Bld) [Volume fraction] 33.5 % below low threshold See Below [facility] [address] [place] Work Phone: Comment on above: Reference Range: 41. 0 - 52.0 Hemoglobin (Bld) [Mass/Vol] 10.5 g/dL below low threshold See Below [facility] [place] Work Phone: Comment on above: Reference Range: 13. 5 - 17.5 MCHC (RBC) [Mass/Vol] 31.3 g/dL below low threshold See Below [facility] [place] Work Phone: Comment on above: Reference Range: 32. 0 - 36.0 MCV (RBC) [Entitic vol] 91 fL 80 - 100 [facility] [address] [place] Work Phone: Platelets (Bld) [#/Vol] 141 10*3/uL below lo w threshold 150 - 450 [facility] [address] [place] Work Phone: RBC (Bld) [#/Vol] 3.70 {x10E12/L} below low threshold See Below [facility] [address] [place] Work Phone: Comment on above: Reference Range: 4.5 0 - 5.90 WBC (Bld) [#/Vol] 8.2 10*3/uL 4.4 - 11.3 [facility] [address] [place] Work Phone: No Panel Informationon 06-30 29 {mL/min/1.73m2} Abnormal >90 [facility] [address] [place] Work Phone: Comment on above: CALCULATIONS OF ERNST MATED GFR ARE PERFORMED USING THE 2020 CKD-EPI STUDY REFIT EQUATION WITHOUT THE RACE VARIABLE FOR THE IDMS-TRACEABLE CREATININE METHODS.https://jasn.asnjournals.org/content/early/ ASN.4184059136 0.0 {/100_WBC} 0.0-0.0 [facility] [address] [place] Work Phone: Tacrolimuson 06-30-2021 Tacrolimus (Bld) [Mass/Vol] 7.7 ng/mL 2.0 - 15.0 [facility] [address] [place] Work Phone: Comment on above: NOTE: Result was obt ained using a chemiluminescent microparticle immunoassay (CMIA) on the [employer] i system.Optimal therapeutic ranges for immuno-suppressant drugs [...] high threshold 74 - 99 [facility] [address] [place] Work Phone: [phone] Glucose [Mass/Vol] 283 mg/dL above high threshold 74 - 99 [facility] [address] [place] Work Phone: [phone] Anion gap [Moles/Vol] 16 mmol/L 10 - 20 [facility] [address] [place] Work Phone: [phone] Calcium [Mass/Vol] 8.7 mg/dL 8.6 - 10.6 [facility] [address] [place] Work Phone: [phone] Chloride [Moles/Vol] 104 mmol/L 98 - 107 [facility] [address] [place] Work Phone: [phone] CO2 [Moles/Vol] 28 mmol/L 21 - 32 [facility] [address] [place] Work Phone: [phone] Creatinine [Mass/Vol] 1.97 mg/dL above high threshold See Below [facility] [address] [place] Work Phone: [phone] Comment on above: Reference Range: 0.5 0 - 1.30 Glucose [Mass/Vol] 185 mg/dL above high threshold 74 - 99 [facility] [address] [place] Work Phone: [phone] Potassium [Moles/Vol] 3.9 mmol/L 3.5 - 5.3 [facility] [address] [place] Work Phone: [phone] Sodium [Moles/Vol] 144 mmol/L 136 - 145 [facility] [address] [place] Work Phone: [phone] Urea nitrogen [Mass/Vol] 35 mg/dL above high threshold 6 - 23 [facility] [address] [place] Work Phone: [phone] Glucose [Mass/Vol] 186 mg/dL above high threshold 74 - 99 [facility] [address] [place] Work Phone: Laboratory - Hematology and Cell countson 06-29-2021 Erythrocyte distribution width (RBC) [Ratio] 14.3 % See Below [facility] [address] [place] Work Phone: Comment on above: Reference Range: 11. 5 - 14.5 Hematocrit (Bld) [Volume fraction] 35.8 % below low threshold See Below [facility] [address] [place] Work Phone: Comment on above: Reference Range: 41. 0 - 52.0 Hemoglobin (Bld) [Mass/Vol] 11.0 g/dL below low threshold See Below [facility] [address] [place] Work Phone: Comment on above: Reference Range: 13. 5 - 17.5 MCHC (RBC) [Mass/Vol] 30.7 g/dL below low threshold See Below [facility] [employer] [address] [place] Work Phone: Comment on above: Reference Range: 32. 0 - 36.0 MCV (RBC) [Entitic vol] 90 fL 80 - 100 [facility] [employer] [address] [place] Work Phone: Platelets (Bld) [#/Vol] 142 10*3/uL below lo w threshold 150 - 450 [facility] [address] [place] Work Phone: RBC (Bld) [#/Vol] 3.96 {x10E12/L} below low threshold See Below [facility] [address] [place] Work Phone: Comment on above: Reference Range: 4.5 0 - 5.90 WBC (Bld) [#/Vol] 7.0 10*3/uL 4.4 - 11.3 [facility] [address] [place] Work Phone: Magnesium, Serumon Magnesium [Mass/Vol] 1.80 mg/dL See Below [facility] [address] [place] Work Phone: Comment on above: Reference Range: 1.6 0 - 2.40 No Panel Informationon 06-29 34 {mL/min/1.73m2} Abnormal >90 [facility] [address] [place] Work Phone: Comment on above: CALCULATIONS OF ERNST MATED GFR ARE PERFORMED USING THE 2020 CKD-EPI STUDY REFIT EQUATION WITHOUT THE RACE VARIABLE FOR THE IDMS-TRACEABLE CREATININE METHODS.https://jasn.asnjournals.org/content/early// ASN.3071157046 0.0 {/100_WBC} 0.0-0.0 [facility] [address] [place] Work Phone: Tacrolimuson 06-29-2021 Tacrolimus (Bld) [Mass/Vol] 8.4 ng/mL 2.0 - 15.0 [facility] [address] [place] Work Phone: Comment on above: NOTE: Result was obt ained using a chemiluminescent microparticle immunoassay (CMIA) on the [employer] i system.Optimal therapeutic ranges for immuno-suppressant drugs [...] high threshold 74 - 99 [facility] [address] [place] Work Phone: Glucose [Mass/Vol] 215 mg/dL above high threshold 74 - 99 [facility] [address] [place] Work Phone: Anion gap [Moles/Vol] 14 mmol/L 10 - 20 [facility] [address] [place] Work Phone: [phone] Calcium [Mass/Vol] 8.5 mg/dL below low threshold 8.6 - 10.6 [facility] [address] [place] Work Phone: [phone] Chloride [Moles/Vol] 105 mmol/L 98 - 107 [facility] [address] [place] Work Phone: [phone] CO2 [Moles/Vol] 29 mmol/L 21 - 32 [facility] [address] [place] Work Phone: [phone] Creatinine [Mass/Vol] 1.96 mg/dL above high threshold See Below [facility] [address] [place] Work Phone: [phone] Comment on above: Reference Range: 0.5 0 - 1.30 Glucose [Mass/Vol] 159 mg/dL above high threshold 74 - 99 [facility] [address] [place] Work Phone: [phone] Potassium [Moles/Vol] 3.8 mmol/L 3.5 - 5.3 [facility] [address] [place] Work Phone: [phone] Sodium [Moles/Vol] 144 mmol/L 136 - 145 [facility] [address] [place] Work Phone: [phone] Urea [...] [Ratio] 14.3 % See Below [facility] [address] [place] Work Phone: [phone] Comment on above: Reference Range: 11. 5 - 14.5 Hematocrit (Bld) [Volume fraction] 33.8 % below low threshold See Below [facility] [address] [place] Work Phone: Comment on above: Reference Range: 41. 0 - 52.0 Hemoglobin (Bld) [Mass/Vol] 10.4 g/dL below low threshold See Below [facility] [address] [place] Work Phone: Comment on above: Reference Range: 13. 5 - 17.5 MCHC (RBC) [Mass/Vol] 30.8 g/dL below low threshold See Below [facility] [employer] [address] [place] Work Phone: Comment on above: Reference Range: 32. 0 - 36.0 MCV (RBC) [Entitic vol] 90 fL 80 - 100 [facility] [employer] [address] [place] Work Phone: Platelets (Bld) [#/Vol] 133 10*3/uL below lo w threshold 150 - 450 [facility] [address] [place] Work Phone: RBC (Bld) [#/Vol] 3.75 {x10E12/L} below low threshold See Below [facility] [employer] [address] [place] Work Phone: Comment on above: Reference Range: 4.5 0 - 5.90 WBC (Bld) [#/Vol] 5.7 10*3/uL 4.4 - 11.3 [facility] [address] [place] Work Phone: Lactate, Levelon 06-28-2021 Lactate [Moles/Vol] 0.6 mmol/L 0.4 - 2.0 [facility] [employer] [address] [place] Work Phone: Comment on above: [...] RACE VARIABLE FOR THE IDMS-TRACEABLE CREATININE METHODS.https://jasn.asnjournals.org/content/early/ ASN.1485773890 0.0 {/100_WBC} 0.0-0.0 [facility] [address] [place] Work Phone: Tacrolimuson 06-28-2021 Tacrolimus (Bld) [Mass/Vol] 10.4 ng/mL 2.0 - 15.0 [facility] [address] [place] Work Phone: Comment on above: NOTE: Result was obt ained using a chemiluminescent microparticle immunoassay (CMIA) on the [employer] i system.Optimal therapeutic ranges for immuno-suppressant drugs depend upon an individualpatient's current clinical state, type oforgan transplant, time post-transplant,co-administration of other immunosuppressants,and other clinical factors. The results ofthis test should be correlated with additionalclinical and laboratory data before changesin treatment regimens are made. Complete Blood Count + Diffe rentialon 06-27-2021 Basophils/100 WBC (Bld) 0.5 % 0.0 - 2.0 [facility] [address] [place] Work Phone: Erythrocyte distribution width (RBC) [Ratio] 14.3 % See Below [facility] [address] [place] Work Phone: Comment on above: Reference Range: 11. 5 - 14.5 Hematocrit (Bld) [Volume fraction] 33.6 % below low threshold See Below [facility] [address] [place] Work Phone: Comment on above: Reference Range: 41. 0 - 52.0 Hemoglobin (Bld) [Mass/Vol] 10.3 g/dL below low threshold See Below [facility] [address] [place] Work Phone: Comment on above: Reference Range: 13. 5 - 17.5 Lymphocytes/100 WBC (Bld) 13.1 % See Below [facility] [address] [place] Work Phone: [phone] Comment on above: Reference Range: 13. 0 - 44.0 MCHC (RBC) [Mass/Vol] 30.7 g/dL below low threshold See Below [facility] [address] [place] Work Phone: [phone] Comment on above: Reference Range: 32. 0 - 36.0 MCV (RBC) [Entitic vol] 92 fL 80 - 100 [facility] [address] [place] Work Phone: [phone] Monocytes/100 WBC (Bld) 9.0 % 2.0 - 10.0 [facility] [address] [place] Work Phone: [phone] Neutrophils/100 WBC (Bld) 72.5 % See Below [facility] [address] [place] Work Phone: [phone] Comment on above: Reference Range: 40. 0 - 80.0 Platelets (Bld) [#/Vol] 137 10*3/uL below lo w threshold 150 - 450 [facility] [address] [place] Work Phone: [phone] RBC (Bld) [#/Vol] 3.67 {x10E12/L} below low threshold See Below [facility] [address] [place] Work Phone: [phone] Comment on above: Reference Range: 4.5 0 - 5.90 WBC (Bld) [#/Vol] 6.4 10*3/uL 4.4 - 11.3 [facility] [address] [place] Work Phone: [phone] Complete Blood Count + Differential 0.03 {x10E9/L} See Below [facility] [address] [place] Work Phone: Comment on [...] Wu on 06-27-2021 Glucose [Mass/Vol] 263 mg/dL [facility] Comment on above: Random Glucose Refer ence [...] 57 U/L 33 - 136 [facility] [address] [place] Work Phone: ALT With P-5'-P [Catalytic activity/Vol] 4 U/L below low threshold 10 - 52 [facility] [address] [place] Work Phone: Comment on above: Patients treated wit h Sulfasalazine may generate falsely decreased results for ALT. Anion gap [Moles/Vol] 18 mmol/L 10 - 20 [facility] [address] [place] Work Phone: AST With P-5'-P [Catalytic activity/Vol] 10 U/L 9 - 39 [facility] [address] [place] Work Phone: Bilirubin [Mass/Vol] 0.3 mg/dL 0.0 - 1.2 [facility] [address] [place] Work Phone: Calcium [Mass/Vol] 8.3 mg/dL below low threshold 8.6 - 10.6 [facility] [address] [place] Work Phone: Chloride [Moles/Vol] [...] high threshold 74 - 99 [facility] [address] [place] Work Phone: Potassium [Moles/Vol] 3.7 mmol/L 3.5 - 5.3 [facility] [address] [place] Work Phone: Protein [Mass/Vol] 5.7 g/dL below low threshold 6.4 - 8.2 [facility] [address] [place] Work Phone: Sodium [Moles/Vol] 142 mmol/L 136 - 145 [facility] [address] [place] Work Phone: Urea nitrogen [Mass/Vol] 37 mg/dL above high threshold 6 - 23 [facility] [address] [place] Work Phone: Glucose [Mass/Vol] 178 mg/dL above high threshold 74 - 99 [facility] [address] [place] Work Phone: Glucose [Mass/Vol] [...] RACE VARIABLE FOR THE IDMS-TRACEABLE CREATININE METHODS.https://jasn.asnjournals.org/content// ASN.1653241228 No Panel InformationOrdered By: Yoshi Wu on 06-27-2021 Bedside Glucose Comment Glu2: cleaned [facility] Automated erythrocytes count in urine sediment (number/area)Ordered By: Audra Quinteros on 06-26-2021 RBC Auto (Urine sed) [#/Area] 0-1 [HPF] [facility] Automated leukocytes count i n urine sediment (number/area)Ordered By: Audra Quinteros on 06-26-2021 WBC Auto (Urine sed) [#/Area] 0-1 [HPF] [facility] Bilirubin Test strip Ql (U)O rdered By: Audra Quinteros on 06-26-2021 Bilirubin Ql (U) Negative Negative [facility] COVID-19 Positive/NegativeOr dered By: Omid Myrick on 06-26-2021 SARS-CoV-2 (COVID-19) N gene JOYCE+probe Ql (Resp) Negative Negative [facility] Comment on above: Testing for SARS-CoV -2 by RT-PCRThis test was developed and its performance characteristics determined by [employer] and validated at the [facility]. This test has not been FDA [...] Quinteros on 06-26-2021 Color (U) Yellow Yellow [facility] Creatinine [Mass/volume] in UrineOrdered By: Audra Quinteros on 06-26-2021 Creatinine (U) [Mass/Vol] 71.5 mg/dL [facility] Comment on above: No reference range e stablished Creatinine and Glomerular fi ltration rate.predicted panel (S/P/Bld)Ordered By: Audra Quinteros on 06-26-2021 Creatinine [Mass/Vol] 1.99 mg/dL 0.64-1.27 [facility] Estimated glomerular filtrat ion rate (GFR) non- AmericanOrdered By: Audra Quinteros on 06-26-2021 GFR/1.73 sq M.predicted among non-blacks MDRD (S/P/Bld) [Vol rate/Area] 33 mL/Min [facility] Ketones Auto test strip (U) [Mass/Vol]Ordered By: Audra Quinteros on 06-26-2021 Ketones (U) [Mass/Vol] Negative Negative [facility] Laboratory - Microbiology an d Antimicrobial susceptibilityOrdered By: Omid Myrick on 06-26-2021 SARS-CoV-2 (COVID-19) RNA JOYCE+probe Ql (Unsp spec) N/A [facility] Laboratory - UrinalysisOrder ed By: Audra Quinteros on 06-26-2021 Hyaline casts LM Ql (Urine sed) 0-8 [LPF] [facility] Nitrite Test strip Ql (U)Ord ered By: Audra Quinteros on 06-26-2021 Nitrite Ql (U) Negative Negative [facility] No Panel InformationOrdered By: Audra Quinteros on 06-26-2021 Estimated GFR () 40 mL/Min [facility] Comment on above: GFR estimated refere nce range: According to KDOQI guidelines, <60 ml/min/1.73m2 is sufficient to diagnose a patient with chronic kidney disease. Pharmacy Creatinine Clearance (Chem 39.80 [facility] Protein Auto test strip (U) [Mass/Vol]Ordered By: Audra Quinteros on 06-26-2021 Protein (U) [Mass/Vol] 300 mg/dL Negative [facility] Serum or plasma calcium abhijit urement (mass/volume)Ordered By: Audra Quinteros on 06-26-2021 Calcium [Mass/Vol] 8.9 mg/dL 8.2-10.2 [facility] Serum or plasma chloride marylin surement (moles/volume)Ordered By: Audra Quinteros on 06-26-2021 Chloride [Moles/Vol] 105 mmol/L 95-114 [facility] Serum or plasma glucose abhijit urement (mass/volume)Ordered By: Audra Quinteros on 06-26-2021 Glucose [Mass/Vol] 194 mg/dL 70-100 [facility] Comment on above: ADA recommended refe rence rangeRandom Glucose Reference Range is dependent on time and content of last meal. Glucose of more than 200 mg/dL in a nonstressed, ambulatory subject supports the diagnosis of Diabetes Mellitus. Serum or plasma potassium me asurement (moles/volume)Ordered By: Omid Myrick on 06-26-2021 Potassium [Moles/Vol] 4.0 mmol/L 3.5-5.1 [facility] Serum or plasma sodium measu rement (moles/volume)Ordered By: Audra Quinteros on 06-26-2021 Sodium [Moles/Vol] 140 mmol/L 136-146 [facility] Serum or plasma total carbon dioxide measurement (moles/volume)Ordered By: Audra Quinteros on 06-26-2021 CO2 [Moles/Vol] 23.8 mmol/L 22.0-30.0 [facility] Serum or plasma urea nitroge n measurement (mass/volume)Ordered By: Audra Quinteros on 06-26-2021 Urea nitrogen [Mass/Vol] 39 mg/dL 9-23 [facility] Specific gravity Auto test s trip (U) [Rel density]Ordered By: Audra Quinteros on 06-26-2021 Specific gravity (U) [Rel density] 1.015 1.001-1.03 0 [facility] Squamous epithelial cells de tection in urine sediment by light microscopyOrdered By: Audra Quinteros on 06-26-2021 Epithelial cells.squamous LM Ql (Urine sed) None seen [HPF] [facility] Urine bacteria detection by automated methodOrdered By: Audra Quinteros on 06-26-2021 Bacteria Auto Ql (U) None seen None Seen [facility] Urine clarity by refractomet ry automatedOrdered By: Audra Quinteros on 06-26-2021 Clarity Refractometry automated (U) Clear Clear [facility] Urine glucose measurement by automated test strip (mass/volume)Ordered By: Audra Quinteros on 06-26-2021 Glucose Auto test strip (U) [Mass/Vol] Normal mg/dL Normal [facility] Urine hemoglobin detection b y automated test stripOrdered By: Audra Quinteros on 06-26-2021 Hemoglobin Auto test strip Ql (U) Negative Negative [facility] Urine leukocyte esterase det ection by automated test stripOrdered By: Audra Quinteros on 06-26-2021 Leukocyte esterase Auto test strip Ql (U) Negative Negative [facility] Urine sodium measurement (mo les/volume)Ordered By: Audra Quinteros on 06-26-2021 Sodium (U) [Moles/Vol] 94 mmol/L [facility] Comment on above: No reference range e stablished Urobilinogen Auto test strip (U) [Mass/Vol]Ordered By: Audra Quinteros on 06-26-2021 Urobilinogen (U) [Mass/Vol] Normal mg/dL Normal [facility] pH Auto test strip (U)Ordere d By: Audra Quinteros on 06-26-2021 pH (U) 5.5 [pH] 5.0-9.0 [facility] Activated partial thrombopla stin time (aPTT) in platelet poor plasma by coagulation aOrdered By: Andrew Hernández on 06-25-2021 aPTT Coag (PPP) [Time] 33.4 s 25.1-36.5 [facility] Albumin [Mass/volume] in Ser um or PlasmaOrdered By: Andrew Hernández on 06-25-2021 Albumin [Mass/Vol] 3.4 g/dL 3.2-5.5 [facility] Basophils Auto (Bld) [#/Vol] Ordered By: Andrew Hernández on 06-25-2021 Basophils (Bld) [#/Vol] 0.0 10*3/uL 0.0-0.2 [facility] Basophils/100 WBC Auto (Bld) Ordered By: Andrew Hernández on 06-25-2021 Basophils/100 WBC (Bld) 0.6 % [facility] Blood hemoglobin measurement (mass/volume)Ordered By: Andrew Hernández on 06-25-2021 Hemoglobin (Bld) [Mass/Vol] 11.8 g/dL 13.0-17.0 [facility] Blood leukocytes automated c ount (number/volume)Ordered By: Andrew Hernández on 06-25-2021 WBC (Bld) [#/Vol] 7.5 10*3/uL 4.5-11.0 [facility] COVID-19 SOFIAOrdered By: Prasanna Hernández on 06-25-2021 SARS-CoV+SARS-CoV-2 (COVID-19) Ag IA.rapid Ql (Resp) Negative Negative [facility] Comment on above: This is a duplicate Jessi SARS Antigen (GABI) result to be used for statistical tracking purpose only. Creatinine and Glomerular fi ltration rate.predicted panel (S/P/Bld)Ordered By: Andrew Hernández on 06-25-2021 Creatinine [Mass/Vol] 2.25 mg/dL 0.64-1.27 [facility] Eosinophils Auto (Bld) [#/Vo l]Ordered By: Andrew Hernández on 06-25-2021 Eosinophils (Bld) [#/Vol] 0.3 10*3/uL 0.0-0.45 [facility] Eosinophils/100 WBC Auto (Bl d)Ordered By: Andrew Hernández on 06-25-2021 Eosinophils/100 WBC (Bld) 4.6 % [facility] Erythrocyte distribution wid th Auto (RBC) [Ratio]Ordered By: Andrew Hernández on 06-25-2021 Erythrocyte distribution width (RBC) [Ratio] 16.1 % 12.0-14.8 [facility] Erythrocyte sedimentation ra te by Photometric methodOrdered By: Andrew Hernández on 06-25-2021 ESR Photometric method (Bld) [Velocity] 39 mm/hr 0-19 [facility] Estimated glomerular filtrat ion rate (GFR) non- AmericanOrdered By: Andrew Hernández on 06-25-2021 GFR/1.73 sq M.predicted among non-blacks MDRD (S/P/Bld) [Vol rate/Area] 28 mL/Min [facility] Globulin Calc (S) [Mass/Vol] Ordered By: Andrew Hernández on 06-25-2021 Globulin (S) [Mass/Vol] 3.2 g/dL [facility] Hematocrit Auto (Bld) [Volum e fraction]Ordered By: Andrew Hernández on 06-25-2021 Hematocrit (Bld) [Volume fraction] 36.2 % 38.8-50.0 [facility] Laboratory - Chemistry and C hemistry - challengeOrdered By: Andrew Hernández on 06-25-2021 Natriuretic peptide B (Bld) [Mass/Vol] 165.0 pg/mL 5-100 [facility] Laboratory - CoagulationOrde red By: Andrew Hernández on 06-25-2021 PT Coag (PPP) [Time] 11.9 s 9.0-12.9 [facility] Laboratory - Hematology and Cell countsOrdered By: Andrew Hernández on 06-25-2021 Nucleated RBC/100 WBC (Bld) [Ratio] 0.1 % 0-0.5 [facility] Lymphocytes Auto (Bld) [#/Vo l]Ordered By: Andrew Hernández on 06-25-2021 Lymphocytes (Bld) [#/Vol] 1.0 10*3/uL 1.00-4.8 [facility] Lymphocytes/100 WBC Auto (Bl d)Ordered By: Andrew Hernández on 06-25-2021 Lymphocytes/100 WBC (Bld) 12.9 % [facility] MCH Auto (RBC) [Entitic mass ]Ordered By: Andrew Hernández on 06-25-2021 MCH (RBC) [Entitic mass] 28.1 pg 27.5-35.2 [facility] MCHC Auto (RBC) [Mass/Vol]Or dered By: Andrew Hernández on 06-25-2021 MCHC (RBC) [Mass/Vol] 32.7 g/dL 32.5-35.6 [facility] MCV Auto (RBC) [Entitic vol] Ordered By: Andrew Hernández on 06-25-2021 MCV (RBC) [Entitic vol] 86.0 fL 83.5-101 [facility] Monocytes Auto (Bld) [#/Vol] Ordered By: Andrew Hernández on 06-25-2021 Monocytes (Bld) [#/Vol] 0.5 10*3/uL 0.0-0.8 [facility] Monocytes/100 WBC Auto (Bld) Ordered By: Andrew Hernández on 06-25-2021 Monocytes/100 WBC (Bld) 7.3 % [facility] Neutrophils Auto (Bld) [#/Vo l]Ordered By: Andrew Hernández on 06-25-2021 Neutrophils (Bld) [#/Vol] 5.6 10*3/uL 1.8-7.7 [facility] Neutrophils/100 WBC Auto (Bl d)Ordered By: Andrew Hernández on 06-25-2021 Neutrophils/100 WBC (Bld) 74.6 % [facility] No Panel InformationOrdered By: Andrew Hernández on 06-25-2021 SARS Antigen (LFIA) [facility] Estimated GFR () 34 mL/Min [facility] Comment on above: GFR estimated refere nce range: According to KDOQI guidelines, <60 ml/min/1.73m2 is sufficient to diagnose a patient with chronic kidney disease. Pharmacy Creatinine Clearance (Chem 365.00 [facility] Platelet mean volume Auto (B ld) [Entitic vol]Ordered By: Andrew Hernández on 06-25-2021 Platelet mean volume (Bld) [Entitic vol] 10.0 fL 6.6-10.1 [facility] Platelet poor plasma interna tional normalized ratio (INR) by coagulation assay (relatOrdered By: Andrew Hernández on 06-25-2021 INR Coag (PPP) [Relative time] 1.1 {INR} [facility] Comment on above: INR Therapeutic Rang [...] 06-25-2021 Platelets (Bld) [#/Vol] 171 10*3/uL 150-450 [facility] Comment on above: Delta: 119 on 04/05/ 22-0453 Protein [Mass/volume] in Ser um or PlasmaOrdered By: Andrew Hernández on 06-25-2021 Protein [Mass/Vol] 6.6 g/dL 6.1-7.9 [facility] RBC Auto (Bld) [#/Vol]Ordere d By: Andrew Hernández on 06-25-2021 RBC (Bld) [#/Vol] 4.21 10*6/uL 3.90-5.60 [facility] Serum or plasma C reactive p rotein measurement (mass/volume)Ordered By: Andrew Hernández on 06-25-2021 CRP [Mass/Vol] 0.9 mg/dL 0.0-1.0 [facility] Serum or plasma alanine lopez otransferase measurement without P-5'-P (enzymatic activiOrdered By: Andrew Hernández on 06-25-2021 ALT No additional P-5'-P [Catalytic activity/Vol] 13 U/L 10-60 [facility] Serum or plasma albumin/glob ulin mass ratioOrdered By: Andrew Hernández on 06-25-2021 Albumin/Globulin [Mass ratio] 1.1 {ratio} [facility] Serum or plasma alkaline cande sphatase measurement (enzymatic activity/volume)Ordered By: Andrew Hernández on 06-25-2021 ALP [Catalytic activity/Vol] 57 U/L 32-92 [facility] Serum or plasma aspartate am inotransferase measurement (enzymatic activity/volume)Ordered By: Andrew Hernández on 06-25-2021 AST [Catalytic activity/Vol] 15 U/L 10-42 [facility] Serum or plasma calcium abhijit urement (mass/volume)Ordered By: Andrew Hernández on 06-25-2021 Calcium [Mass/Vol] 9.2 mg/dL 8.2-10.2 [facility] Serum or plasma chloride marylin surement (moles/volume)Ordered By: Andrew Hernández on 06-25-2021 Chloride [Moles/Vol] 106 mmol/L 95-114 [facility] Serum or plasma glucose abhijit urement (mass/volume)Ordered By: Andrew Hernández on 06-25-2021 Glucose [Mass/Vol] 177 mg/dL 70-100 [facility] Comment on above: ADA recommended refe rence rangeRandom Glucose Reference Range is dependent on time and content of last meal. Glucose of more than 200 mg/dL in a nonstressed, ambulatory subject supports the diagnosis of Diabetes Mellitus. Serum or plasma potassium me asurement (moles/volume)Ordered By: Andrew Hernández on 06-25-2021 Potassium [Moles/Vol] 4.2 mmol/L 3.5-5.1 [facility] Serum or plasma sodium measu rement (moles/volume)Ordered By: Andrew Hernández on 06-25-2021 Sodium [Moles/Vol] 142 mmol/L 136-146 [facility] Serum or plasma total biliru bin measurement (mass/volume)Ordered By: Andrew Hernández on 06-25-2021 Bilirubin [Mass/Vol] 0.4 mg/dL 0.3-1.2 [facility] Serum or plasma total carbon dioxide measurement (moles/volume)Ordered By: Andrew Hernández on 06-25-2021 CO2 [Moles/Vol] 24.1 mmol/L 22.0-30.0 [facility] Serum or plasma urea nitroge n measurement (mass/volume)Ordered By: Andrew Hernández on 06-25-2021 Urea nitrogen [Mass/Vol] 41 mg/dL 9-23 [facility] Troponin I.cardiac [Mass/vol ume] in Serum or Plasma by High sensitivity methodOrdered By: Andrew Hernández on 06-25-2021 Troponin I.cardiac High sensitivity method [Mass/Vol] 12 pg/mL 0-20 [facility] Albumin [Mass/volume] in Ser um or PlasmaOrdered By: Julee Davies on 06-24-2021 Albumin [Mass/Vol] 2.9 g/dL 3.2-5.5 [facility] Basophils Auto (Bld) [#/Vol] Ordered By: Julee Davies on 06-24-2021 Basophils (Bld) [#/Vol] 0.0 10*3/uL 0.0-0.2 [facility] Basophils/100 WBC Auto (Bld) Ordered By: Julee Davies on 04-05-2022 Basophils/100 WBC (Bld) 0.6 % [facility] Blood hemoglobin measurement (mass/volume)Ordered By: Julee Davies on 06-24-2021 Hemoglobin (Bld) [Mass/Vol] 10.8 g/dL 13.0-17.0 [facility] Blood leukocytes automated c ount (number/volume)Ordered By: Julee Davies on 06-24-2021 WBC (Bld) [#/Vol] 6.6 10*3/uL 4.5-11.0 [facility] Creatinine and Glomerular fi ltration rate.predicted panel (S/P/Bld)Ordered By: Julee Davies on 06-24-2021 Creatinine [Mass/Vol] 2.17 mg/dL 0.64-1.27 [facility] Eosinophils Auto (Bld) [#/Vo l]Ordered By: Julee Davies on 06-24-2021 Eosinophils (Bld) [#/Vol] 0.3 10*3/uL 0.0-0.45 [facility] Eosinophils/100 WBC Auto (Bl d)Ordered By: Julee Davies on 06-24-2021 Eosinophils/100 WBC (Bld) 5.2 % [facility] Erythrocyte distribution wid th Auto (RBC) [Ratio]Ordered By: Julee Davies on 06-24-2021 Erythrocyte distribution width (RBC) [Ratio] 15.8 % 12.0-14.8 [facility] Estimated glomerular filtrat ion rate (GFR) non- AmericanOrdered By: Julee Davies on 06-24-2021 GFR/1.73 sq M.predicted among non-blacks MDRD (S/P/Bld) [Vol rate/Area] 30 mL/Min [facility] Globulin Calc (S) [Mass/Vol] Ordered By: Julee Davies on 06-24-2021 Globulin (S) [Mass/Vol] 2.4 g/dL [facility] Hematocrit Auto (Bld) [Volum e fraction]Ordered By: Julee Davies on 06-24-2021 Hematocrit (Bld) [Volume fraction] 33.0 % 38.8-50.0 [facility] Laboratory - Chemistry and C hemistry - challengeOrdered By: Julee Davies on 06-24-2021 Magnesium [Mass/Vol] 1.9 mg/dL 1.6-2.6 [facility] Natriuretic peptide B (Bld) [Mass/Vol] 224.0 pg/mL 5-100 [facility] Laboratory - Hematology and Cell countsOrdered By: Julee Davies on 06-24-2021 Nucleated RBC/100 WBC (Bld) [Ratio] 0.1 % 0-0.5 [facility] Lymphocytes Auto (Bld) [#/Vo l]Ordered By: Julee Davies on 06-24-2021 Lymphocytes (Bld) [#/Vol] 0.8 10*3/uL 1.00-4.8 [facility] Lymphocytes/100 WBC Auto (Bl d)Ordered By: Julee Davies on 06-24-2021 Lymphocytes/100 WBC (Bld) 11.4 % [facility] MCH Auto (RBC) [Entitic mass ]Ordered By: Julee Davies on 06-24-2021 MCH (RBC) [Entitic mass] 27.7 pg 27.5-35.2 [facility] MCHC Auto (RBC) [Mass/Vol]Or dered By: Julee Davies on 06-24-2021 MCHC (RBC) [Mass/Vol] 32.7 g/dL 32.5-35.6 [facility] MCV Auto (RBC) [Entitic vol] Ordered By: Julee Davies on 06-24-2021 MCV (RBC) [Entitic vol] 84.6 fL 83.5-101 [facility] Monocytes Auto (Bld) [#/Vol] Ordered By: Julee Davies on 06-24-2021 Monocytes (Bld) [#/Vol] 0.5 10*3/uL 0.0-0.8 [facility] Monocytes/100 WBC Auto (Bld) Ordered By: Julee Davies on 06-24-2021 Monocytes/100 WBC (Bld) 7.4 % [facility] Neutrophils Auto (Bld) [#/Vo l]Ordered By: Julee Davies on 06-24-2021 Neutrophils (Bld) [#/Vol] 5.0 10*3/uL 1.8-7.7 [facility] Neutrophils/100 WBC Auto (Bl d)Ordered By: Julee Davies on 06-24-2021 Neutrophils/100 WBC (Bld) 75.4 % [facility] No Panel InformationOrdered By: Julee Davies on 06-24-2021 Estimated GFR () 36 mL/Min [facility] Comment on above: GFR estimated refere nce range: According to KDOQI guidelines, <60 ml/min/1.73m2 is sufficient to diagnose a patient with chronic kidney disease. Pharmacy Creatinine Clearance (Chem N/A [facility] Platelet mean volume Auto (B ld) [Entitic vol]Ordered By: Julee Davies on 06-24-2021 Platelet mean volume (Bld) [Entitic vol] 9.8 fL 6.6-10.1 [facility] Platelets Auto (Bld) [#/Vol] Ordered By: Julee Davies on 06-24-2021 Platelets (Bld) [#/Vol] 119 10*3/uL 150-450 [facility] Protein [Mass/volume] in Ser um or PlasmaOrdered By: Julee Davies on 06-24-2021 Protein [Mass/Vol] 5.3 g/dL 6.1-7.9 [facility] RBC Auto (Bld) [#/Vol]Ordere d By: Julee Davies on 06-24-2021 RBC (Bld) [#/Vol] 3.90 10*6/uL 3.90-5.60 [facility] Serum or plasma alanine lopez otransferase measurement without P-5'-P (enzymatic activiOrdered By: Julee Davies on 06-24-2021 ALT No additional P-5'-P [Catalytic activity/Vol] 7 U/L 10-60 [facility] Serum or plasma albumin/glob ulin mass ratioOrdered By: Julee Davies on 06-24-2021 Albumin/Globulin [Mass ratio] 1.2 {ratio} [facility] Serum or plasma alkaline cande sphatase measurement (enzymatic activity/volume)Ordered By: Julee Davies on 06-24-2021 ALP [Catalytic activity/Vol] 56 U/L 32-92 [facility] Serum or plasma aspartate am inotransferase measurement (enzymatic activity/volume)Ordered By: Julee Davies on 06-24-2021 AST [Catalytic activity/Vol] 13 U/L 10-42 [facility] Serum or plasma calcium abhijit urement (mass/volume)Ordered By: Julee Davies on 06-24-2021 Calcium [Mass/Vol] 8.9 mg/dL 8.2-10.2 [facility] Serum or plasma chloride marylin surement (moles/volume)Ordered By: Julee Davies on 06-24-2021 Chloride [Moles/Vol] 109 mmol/L 95-114 [facility] Serum or plasma glucose abhijit urement (mass/volume)Ordered By: Julee Davies on 06-24-2021 Glucose [Mass/Vol] 160 mg/dL 70-100 [facility] Comment on above: ADA recommended refe rence rangeRandom Glucose Reference Range is dependent on time and content of last meal. Glucose of more than 200 mg/dL in a nonstressed, ambulatory subject supports the diagnosis of Diabetes Mellitus. Serum or plasma potassium me asurement (moles/volume)Ordered By: Julee Davies on 06-24-2021 Potassium [Moles/Vol] 4.1 mmol/L 3.5-5.1 [facility] Serum or plasma sodium measu rement (moles/volume)Ordered By: Julee Davies on 06-24-2021 Sodium [Moles/Vol] 144 mmol/L 136-146 [facility] Serum or plasma total biliru bin measurement (mass/volume)Ordered By: Julee Davies on 06-24-2021 Bilirubin [Mass/Vol] 0.5 mg/dL 0.3-1.2 [facility] Serum or plasma total carbon dioxide measurement (moles/volume)Ordered By: Julee Davies on 06-24-2021 CO2 [Moles/Vol] 25.7 mmol/L 22.0-30.0 [facility] Serum or plasma urea nitroge n measurement (mass/volume)Ordered By: Julee Davies on 06-24-2021 Urea nitrogen [Mass/Vol] 43 mg/dL 9- [facility] Tacrolimus [Mass/volume] in BloodOrdered By: Julee Davies on 06-24-2021 Tacrolimus (Bld) [Mass/Vol] 8.1 ng/mL [facility] Comment on above: This test was vane christine and its performance characteristicsdetermined by [facility]. It has not been cleared orapproved by the Food and Drug Administration. Trough (immediately following transplant) 15.0 Trough (steady state, 2 weeks or more after transplant): 3.0 - 8.0 Performed by LC-MS/MS technology.Performed at: [address] [id number] Director: Mynor Nixon MD, Phone: [phone] Albumin [Mass/volume] in Ser um or PlasmaOrdered By: Julee Davies on 05-27-2021 Albumin [Mass/Vol] 3.1 g/dL 3.2-5.5 [facility] Basophils Auto (Bld) [#/Vol] Ordered By: Julee Davies on 05-27-2021 Basophils (Bld) [#/Vol] 0.0 10*3/uL 0.0-0.2 [facility] Basophils/100 WBC Auto (Bld) Ordered By: Julee Davies on 05-27-2021 Basophils/100 WBC (Bld) 0.7 % [facility] Blood hemoglobin measurement (mass/volume)Ordered By: Julee Davies on 05-27-2021 Hemoglobin (Bld) [Mass/Vol] 11.4 g/dL 13.0-17.0 [facility] Blood leukocytes automated c ount (number/volume)Ordered By: Julee Davies on 05-27-2021 WBC (Bld) [#/Vol] 6.1 10*3/uL 4.5-11.0 [facility] Cholesterol [Mass/volume] in Serum or PlasmaOrdered By: Julee Davies on 05-27-2021 Cholesterol [Mass/Vol] 129 mg/dL 140-200 [facility] Comment on above: Chol less than 200 m g/dl low riskChol 201-239 mg/dl borderline riskChol 240 mg/dl and greater high risk Cholesterol in LDL Calc [Mas s/Vol]Ordered By: Julee Davies on 05-27-2021 Cholesterol in LDL [Mass/Vol] 67 mg/dL 0-100 [facility] Comment on above: LDL ATP III CLASSIFI CATIONLDL less than 100 mg/dL OptimalLDL 100-129 mg/dL Near or above optimalLDL 130-159 mg/dL Borderline highLDL 160-189 mg/dL HighLDL greater than 189 mg/dL Very high Cholesterol in VLDL Calc [Ma ss/Vol]Ordered By: Julee Davies on 05-27-2021 Cholesterol in VLDL [Mass/Vol] 27 mg/dL [facility] Creatinine and Glomerular fi ltration rate.predicted panel (S/P/Bld)Ordered By: Julee Davies on 05-27-2021 Creatinine [Mass/Vol] 1.86 mg/dL 0.64-1.27 [facility] Eosinophils Auto (Bld) [#/Vo l]Ordered By: Julee Davies on 05-27-2021 Eosinophils (Bld) [#/Vol] 0.2 10*3/uL 0.0-0.45 [facility] Eosinophils/100 WBC Auto (Bl d)Ordered By: Julee Davies on 05-27-2021 Eosinophils/100 WBC (Bld) 3.7 % [facility] Erythrocyte distribution wid th Auto (RBC) [Ratio]Ordered By: Julee Davies on 05-27-2021 Erythrocyte distribution width (RBC) [Ratio] 14.9 % 12.0-14.8 [facility] Estimated glomerular filtrat ion rate (GFR) non- AmericanOrdered By: Julee Davies on 05-27-2021 GFR/1.73 sq M.predicted among non-blacks MDRD (S/P/Bld) [Vol rate/Area] 35 mL/Min [facility] Globulin Calc (S) [Mass/Vol] Ordered By: Julee Davies on 05-27-2021 Globulin (S) [Mass/Vol] 2.9 g/dL [facility] Glucose mean value [Mass/vol ume] in Blood Estimated from glycated hemoglobinOrdered By: Julee Davies on 05-27-2021 Average glucose Estimated from glycated hemoglobin (Bld) [Mass/Vol] 209 mg/dL [facility] Hematocrit Auto (Bld) [Volum e fraction]Ordered By: Julee Davies on 05-27-2021 Hematocrit (Bld) [Volume fraction] 34.1 % 38.8-50.0 [facility] Hemoglobin A1c percentageOrd ered By: Julee Davies on 05-27-2021 HbA1c (Bld) [Mass fraction] 8.9 % 4.3-5.6 [facility] Comment on above: Increased risk for d iabetes: 5.7 - 6.4diabetes: >6.4glycemic control for adults with diabetes: <7.0 Laboratory - Hematology and Cell countsOrdered By: Julee Davies on 05-27-2021 Nucleated RBC/100 WBC (Bld) [Ratio] 0.2 % 0-0.5 [facility] Lymphocytes Auto (Bld) [#/Vo l]Ordered By: Julee Davies on 05-27-2021 Lymphocytes (Bld) [#/Vol] 1.1 10*3/uL 1.00-4.8 [facility] Lymphocytes/100 WBC Auto (Bl d)Ordered By: Julee Davies on 05-27-2021 Lymphocytes/100 WBC (Bld) 17.9 % [facility] MCH Auto (RBC) [Entitic mass ]Ordered By: Julee Davies on 05-27-2021 MCH (RBC) [Entitic mass] 28.3 pg 27.5-35.2 [facility] MCHC Auto (RBC) [Mass/Vol]Or dered By: Julee Davies on 05-27-2021 MCHC (RBC) [Mass/Vol] 33.5 g/dL 32.5-35.6 [facility] MCV Auto (RBC) [Entitic vol] Ordered By: Julee Davies on 05-27-2021 MCV (RBC) [Entitic vol] 84.5 fL 83.5-101 [facility] Monocytes Auto (Bld) [#/Vol] Ordered By: Julee Davies on 05-27-2021 Monocytes (Bld) [#/Vol] 0.5 10*3/uL 0.0-0.8 [facility] Monocytes/100 WBC Auto (Bld) Ordered By: Julee Davies on 05-27-2021 Monocytes/100 WBC (Bld) 7.9 % [facility] Neutrophils Auto (Bld) [#/Vo l]Ordered By: Julee Davies on 05-27-2021 Neutrophils (Bld) [#/Vol] 4.3 10*3/uL 1.8-7.7 [facility] Neutrophils/100 WBC Auto (Bl d)Ordered By: Julee Davies on 05-27-2021 Neutrophils/100 WBC (Bld) 69.8 % [facility] No Panel InformationOrdered By: Julee Davies on 05-27-2021 25-Hydroxy Vitamin D Total 23.8 ng/mL 30-100 [facility] Comment on above: VITAMIN D STATUS 25( [place])VITAMIN D RANGE (ng/mL) Deficient <20 Insufficient 20 to <30Sufficient 30 to 100Reference: Ely MF,Brad NC, Kristy ORTEGA, et al. Evaluation,treatment, and prevention of vitamin D deficiency; an Endocrine Society clinical practice guideline. JCEM. 2010; 96(7):1911-30. Estimated GFR () 43 mL/Min [facility] Comment on above: GFR estimated refere nce range: According to KDOQI guidelines, <60 ml/min/1.73m2 is sufficient to diagnose a patient with chronic kidney disease. Pharmacy Creatinine Clearance (Chem N/A [facility] Platelet Estimate Decreased Normal [facility] Platelet Morphology Comment Normal Normal [facility] Platelet mean volume Auto (B ld) [Entitic vol]Ordered By: Julee Davies on 05-27-2021 Platelet mean volume (Bld) [Entitic vol] 10.6 fL 6.6-10.1 [facility] Platelets Auto (Bld) [#/Vol] Ordered By: Julee Davies on 05-27-2021 Platelets (Bld) [#/Vol] 129 10*3/uL 150-450 [facility] Protein [Mass/volume] in Ser um or PlasmaOrdered By: Julee Davies on 05-27-2021 Protein [Mass/Vol] 6.0 g/dL 6.1-7.9 [facility] RBC Auto (Bld) [#/Vol]Ordere d By: Julee Davies on 05-27-2021 RBC (Bld) [#/Vol] 4.03 10*6/uL 3.90-5.60 [facility] RBC morphologyOrdered By: Maurice Davies on 05-27-2021 RBC morphology finding Nom (Bld) Normal [facility] Serum or plasma alanine lopez otransferase measurement without P-5'-P (enzymatic activiOrdered By: Julee Davies on 05-27-2021 ALT No additional P-5'-P [Catalytic activity/Vol] 7 U/L 10-60 [facility] Serum or plasma albumin/glob ulin mass ratioOrdered By: Julee Davies on 05-27-2021 Albumin/Globulin [Mass ratio] 1.1 {ratio} [facility] Serum or plasma alkaline cande sphatase measurement (enzymatic activity/volume)Ordered By: Julee Davies on 05-27-2021 ALP [Catalytic activity/Vol] 52 U/L 32-92 [facility] Serum or plasma aspartate am inotransferase measurement (enzymatic activity/volume)Ordered By: Julee Davies on 05-27-2021 AST [Catalytic activity/Vol] 11 U/L 10-42 [facility] Serum or plasma calcium abhijit urement (mass/volume)Ordered By: Julee Davies on 05-27-2021 Calcium [Mass/Vol] 9.0 mg/dL 8.2-10.2 [facility] Serum or plasma chloride marylin surement (moles/volume)Ordered By: Julee Davies on 05-27-2021 Chloride [Moles/Vol] 104 mmol/L 95-114 [facility] Serum or plasma glucose abhijit urement (mass/volume)Ordered By: Julee Davies on 05-27-2021 Glucose [Mass/Vol] 183 mg/dL 70-100 [facility] Comment on above: ADA recommended refe rence rangeRandom Glucose Reference Range is dependent on time and content of last meal. Glucose of more than 200 mg/dL in a nonstressed, ambulatory subject supports the diagnosis of Diabetes Mellitus. Serum or plasma high density lipoprotein (HDL) cholesterol measurementOrdered By: Julee Davies on 05-27-2021 Cholesterol in HDL [Mass/Vol] 35 mg/dL 29-71 [facility] Comment on above: HDL CHOL ATP-III CLA SSIFICATION Cardiovascular RiskHDL > or equal to 60 mg/dL LOWHDL < 40 mg/dL HIGH Serum or plasma potassium me asurement (moles/volume)Ordered By: Julee Davies on 05-27-2021 Potassium [Moles/Vol] 4.1 mmol/L 3.5-5.1 [facility] Serum or plasma sodium measu rement (moles/volume)Ordered By: Julee Davies on 05-27-2021 Sodium [Moles/Vol] 140 mmol/L 136-146 [facility] Serum or plasma total biliru bin measurement (mass/volume)Ordered By: Julee Davies on 05-27-2021 Bilirubin [Mass/Vol] 0.4 mg/dL 0.3-1.2 [facility] Serum or plasma total carbon dioxide measurement (moles/volume)Ordered By: Julee Davies on 05-27-2021 CO2 [Moles/Vol] 26.1 mmol/L 22.0-30.0 [facility] Serum or plasma total choles terol/high density lipoprotein (HDL) cholesterol mass ratOrdered By: Julee Davies on 05-27-2021 Cholesterol.total/Denise sterol in HDL [Mass ratio] 3.7 {ratio} [facility] Serum or plasma urea nitroge n measurement (mass/volume)Ordered By: Julee Davies on 05-27-2021 Urea nitrogen [Mass/Vol] 38 mg/dL 9-23 [facility] TSH DL <= 0.005 mIU/L QnOrde red By: Julee Davies on 05-27-2021 TSH Qn 4.10 m[IU]/L 0.45-5.33 [facility] Triglyceride [Mass/volume] i n Serum or PlasmaOrdered By: Julee Davies on 05-27-2021 Triglyceride [Mass/Vol] 136 mg/dL 35-149 [facility] Comment on above: TRIG ATP III [...] haryngealReference Range: Not Detected.This test has received [facility] Emergency Use Authorization (EUA) and has been verified by [facility] ([facility]). This test is only authorized for the duration of time that circumstances exist to justify the authorization of the emergency use of in vitro diagnostic tests for the detection of SARS-CoV-2 virus and/or diagnosis of COVID-19 infection under section 564(b)(1) of the Act, 21 U.S.C. 360bbb-3(b)(1), unless the authorization is terminated or revoked sooner. [facility] is certified under CLIA-88 as qualified to perform high complexity testing. Testing is performed in the [facility] located at [address] [place] [address].SARS-CoV-2/Flu/RSV Multiplex Test: Fact sheet for providers: https://www.fda.gov/media/804133/downloadFact sheet for patients: https://www.fda.gov/media/167430/download Coronavirus 2019 RNA by PCR, Screening Asymptomtic Canceled [facility] DO Work Phone: Comment on above: SOURCE: Nasal, Nasop haryngeal.This test has received FDA Emergency Use Authorization (EUA) and has been verified by [facility] ([facility]). This test is only authorized for the duration of time that circumstances exist to justify the authorization of the emergency use of in vitro diagnostic tests for the detection of SARS-CoV-2 virus and/or diagnosis of COVID-19 infection under section 564(b)(1) of the Act, 21 U.S.C. 360bbb-3(b)(1), unless the authorization is terminated or revoked sooner. [facility] is certified under CLIA-88 as qualified to perform high complexity testing. Testing is performed in the [facility] located at [address] [place] [address].SARS-CoV-2/Flu/RSV Multiplex Test: Fact sheet for providers: https://www.fda.gov/media/990513/downloadFact sheet for patients: https://www.fda.gov/media/081813/download Laboratory - Chemistry and C hemistry - challengeon 12-24-2020 Glucose [Mass/Vol] 203 mg/dL above high threshold 74 - 99 [facility] DO Work Phone: Laboratory - Hematology and Cell countson 12-24-2020 Erythrocyte distribution width (RBC) [Ratio] 12.7 % See Below [facility] DO Work Phone: Comment on [...] lo w threshold 150 - 450 [facility] DO Work Phone: [phone] RBC (Bld) [#/Vol] 3.92 {x10E12/L} below low threshold See Below [facility] DO Work Phone: Comment on above: Reference Range: 4.5 0 - 5.90 WBC (Bld) [#/Vol] 5.1 10*3/uL 4.4 - 11.3 [facility] DO Work Phone: [phone] No Panel Informationon 12-24 Please click on the link to view the study images Normal [facility] DO Work Phone: 0.0 {/100_WBC} 0.0-0.0 [facility] DO Work Phone: [phone] Renal Function Panelon 12-24 Albumin BCP dye [Mass/Vol] 3.6 g/dL 3.4 - 5.0 [facility] DO Work Phone: Anion gap [Moles/Vol] 15 mmol/L 10 - 20 [facility] DO Work Phone: [phone] Calcium [Mass/Vol] 9.0 mg/dL 8.6 - 10.6 [facility] DO Work Phone: [phone] Chloride [Moles/Vol] 109 mmol/L above high threshold 98 - 107 [facility] DO Work Phone: CO2 [Moles/Vol] 24 mmol/L 21 - 32 [facility] DO Work Phone: Creatinine [Mass/Vol] [...] Function Panel 45 {mL/min/1.73m2} Abnormal >60 [facility] DO Work Phone: Comment on above: CALCULATIONS OF ERNST MATED GFR ARE PERFORMED USING THE MDRD STUDY EQUATION FOR THE IDMS-TRACEABLE CREATININE METHODS. CLIN CHEM 2007;53:766-72 Renal Function Panel 37 {mL/min/1.73m2} Abnormal >60 [facility] 260 DO Work Phone: Tacrolimuson 12-24-2020 Tacrolimus (Bld) [Mass/Vol] 5.4 ng/mL 2.0 - 15.0 [facility] DO Work Phone: Comment on above: NOTE: Result was obt ained using a chemiluminescent microparticle immunoassay (CMIA) on the [employer] i system.Optimal therapeutic ranges for immuno-suppressant drugs depend upon an individualpatient's current clinical state, type oforgan transplant, time post-transplant,co-administration of other immunosuppressants,and other clinical factors. The results ofthis test should be correlated with additionalclinical and laboratory data before changesin treatment regimens are made. CT Head without Contraston 1 CT Head limited WO contrast Normal [facility] [address] DO Work Phone: [phone] Laboratory - Chemistry and C hemistry - challengeon 12-23-2020 Glucose [Mass/Vol] 151 mg/dL above high threshold 74 - 99 [facility] 260 DO Work Phone: [phone] Glucose [Mass/Vol] 241 mg/dL above high threshold 74 - 99 [facility] 260 DO Work Phone: [phone] Glucose [Mass/Vol] 195 mg/dL above high threshold 74 - 99 [facility] 260 DO Work Phone: [phone] Glucose [Mass/Vol] 160 mg/dL above high threshold 74 - 99 [facility] 260 DO Work Phone: [phone] Laboratory - Hematology and Cell countson 12-23-2020 Erythrocyte distribution width (RBC) [Ratio] 12.5 % See Below [facility] 260 DO Work Phone: [phone] Comment on above: Reference Range: 11. 5 - 14.5 Hematocrit (Bld) [Volume fraction] 34.3 % below low threshold See Below [facility] 260 DO Work Phone: [phone] Comment on above: Reference Range: 41. 0 - 52.0 Hemoglobin (Bld) [Mass/Vol] 11.1 g/dL below low threshold See Below [facility] 260 DO Work Phone: [phone] Comment on above: Reference Range: 13. 5 - 17.5 MCHC (RBC) [Mass/Vol] 32.4 g/dL See Below [facility] 260 DO Work Phone: [phone] Comment on above: Reference Range: 32. 0 - 36.0 MCV (RBC) [Entitic vol] 90 fL 80 - 100 M [facility] 260 DO Work Phone: [phone] Platelets (Bld) [#/Vol] 106 10*3/uL below lo w threshold 150 - 450 [facility] 260 DO Work Phone: [phone] RBC (Bld) [#/Vol] 3.83 {x10E12/L} below low threshold See Below [facility] 260 DO Work Phone: [phone] Comment on above: Reference Range: 4.5 0 - 5.90 WBC (Bld) [#/Vol] 5.2 10*3/uL 4.4 - 11.3 [facility] 260 DO Work Phone: [phone] No Panel Informationon 12-23 0.0 {/100_WBC} 0.0-0.0 [facility] 260 DO Work Phone: [phone] Renal Function Panelon 12-23 Albumin BCP dye [Mass/Vol] 3.6 g/dL 3.4 - 5.0 [facility] 260 DO Work Phone: [phone] Anion gap [Moles/Vol] 14 mmol/L 10 - 20 [facility] 260 DO Work Phone: [phone] Calcium [Mass/Vol] 8.9 mg/dL 8.6 - 10.6 [facility] 260 DO Work Phone: [phone] Chloride [Moles/Vol] 109 mmol/L above high threshold 98 - 107 [facility] 260 DO Work Phone: [phone] CO2 [Moles/Vol] 23 mmol/L 21 - 32 [facility] 260 DO Work Phone: [phone] Creatinine [Mass/Vol] 1.71 mg/dL above high threshold See Below [facility] 260 DO Work Phone: Comment on above: Reference Range: 0.5 0 - 1.30 Glucose [Mass/Vol] 146 mg/dL above high threshold 74 - 99 [facility] 260 DO Work Phone: Phosphate [Mass/Vol] [...] 4.2 mmol/L 3.5 - 5.3 [facility] 260 DO Work Phone: Sodium [Moles/Vol] 142 mmol/L 136 - 145 [facility] 260 DO Work Phone: Urea nitrogen [Mass/Vol] 50 mg/dL above high threshold 6 - 23 [facility] 260 DO Work Phone: Renal Function Panel 47 {mL/min/1.73m2} Abnormal >60 [facility] 260 DO Work Phone: Comment on above: CALCULATIONS OF ERNST MATED GFR ARE PERFORMED USING THE MDRD STUDY EQUATION FOR THE IDMS-TRACEABLE CREATININE METHODS. CLIN CHEM 2007;53:766-72 Renal Function Panel 39 {mL/min/1.73m2} Abnormal >60 [facility] 260 DO Work Phone: Tacrolimuson 12-23-2020 Tacrolimus (Bld) [Mass/Vol] 5.9 ng/mL 2.0 - 15.0 [facility] 260 DO Work Phone: Comment on above: NOTE: Result was obt ained using a chemiluminescent microparticle immunoassay (CMIA) on the [employer] i system.Optimal therapeutic ranges for immuno-suppressant drugs [...] [facility] 260 DO Work Phone: [phone] Glucose [Mass/Vol] 217 mg/dL above high threshold 74 - 99 [facility] 260 DO Work Phone: [phone] Glucose [Mass/Vol] 145 mg/dL above high threshold 74 - 99 [facility] 260 DO Work Phone: Glucose [Mass/Vol] 142 mg/dL above high threshold 74 - 99 [facility] 260 DO Work Phone: Laboratory - Hematology and Cell countson 12-22-2020 Erythrocyte distribution width (RBC) [Ratio] 12.6 % See Below [facility] 260 DO Work Phone: Comment on above: Reference Range: 11. 5 - 14.5 Hematocrit (Bld) [Volume fraction] 33.0 % below low threshold See Below [facility] 260 DO Work Phone: Comment on above: Reference Range: 41. 0 - 52.0 Hemoglobin (Bld) [Mass/Vol] 10.7 g/dL below low threshold See Below [facility] 260 DO Work Phone: Comment on above: Reference Range: 13. 5 - 17.5 MCHC (RBC) [Mass/Vol] 32.4 g/dL See Below [facility] 260 DO Work Phone: [phone] Comment on above: Reference Range: 32. 0 - 36.0 MCV (RBC) [Entitic vol] 91 fL 80 - 100 M [facility] 260 DO Work Phone: [phone] Platelets (Bld) [#/Vol] 107 10*3/uL below lo w threshold 150 - 450 [facility] 260 DO Work Phone: [phone] RBC (Bld) [#/Vol] 3.62 {x10E12/L} below low threshold See Below [facility] 260 DO Work Phone: [phone] Comment on above: Reference Range: 4.5 0 - 5.90 WBC (Bld) [#/Vol] 5.0 10*3/uL 4.4 - 11.3 [facility] 260 DO Work Phone: [phone] No Panel Informationon 12-22 0.0 {/100_WBC} 0.0-0.0 [facility] 260 DO Work Phone: [phone] Renal Function Panelon 12-22 Albumin BCP dye [Mass/Vol] 3.5 g/dL 3.4 - 5.0 [facility] 260 DO Work Phone: [phone] Anion gap [Moles/Vol] 15 mmol/L 10 - 20 [facility] 260 DO Work Phone: [phone] Calcium [Mass/Vol] 8.9 mg/dL 8.6 - 10.6 [facility] 260 DO Work Phone: [phone] Chloride [Moles/Vol] 111 mmol/L above high threshold 98 - 107 [facility] 260 DO Work Phone: [phone] CO2 [Moles/Vol] 23 mmol/L 21 - 32 [facility] 260 DO Work Phone: [phone] Creatinine [Mass/Vol] 2.04 mg/dL above high threshold See Below [facility] 260 DO Work Phone: Comment on above: Reference Range: 0.5 0 - 1.30 Glucose [Mass/Vol] 131 mg/dL above high threshold 74 - 99 [facility] 260 DO Work Phone: Phosphate [Mass/Vol] 3.3 mg/dL 2.5 - 4.9 [facility] 260 DO Work Phone: Comment on [...] Function Panel 32 {mL/min/1.73m2} Abnormal >60 [facility] 260 DO Work Phone: Tacrolimuson 12-22-2020 Tacrolimus (Bld) [Mass/Vol] 5.5 ng/mL 2.0 - 15.0 [facility] 260 DO Work Phone: Comment on above: NOTE: Result was obt ained using a chemiluminescent microparticle immunoassay (CMIA) on the [employer] i system.Optimal therapeutic ranges for immuno-suppressant drugs [...] Phone: HbA1c (Bld) [Mass fraction] Canceled [facility] 260 DO Work Phone: Comment on above: Diagnosis of Diabete s-Adults Non-Diabetic: < or = 5.6% Increased risk for developing diabetes: 5.7-6.4% Diagnostic of diabetes: > or = 6.5%. Monitoring of Diabetes Age (y) Therapeutic Goal (%) Adults: >18 <7.0 Pediatrics: 13-18 <7.5 7-12 <8.0 0- 6 7.5-8.5 [place] [employer]. Diabetes Care 33(S1), Mar 2009. [...] 13-18 <7.5 7-12 <8.0 0- 6 7.5-8.5 [place] [employer]. Diabetes Care 33(S1), Mar 2009. Hemoglobin A1C Canceled [facility] 260 DO Work Phone: Laboratory - Chemistry and C hemistry - challengeon 12-21-2020 Glucose [Mass/Vol] 191 mg/dL above high threshold 74 - 99 [facility] 260 DO Work Phone: Glucose [Mass/Vol] 203 mg/dL above high threshold 74 - 99 [facility] 260 DO Work Phone: [phone] Glucose [Mass/Vol] 229 mg/dL above high threshold 74 - 99 [facility] 260 DO Work Phone: Glucose [Mass/Vol] 136 mg/dL above high threshold 74 - 99 [facility] 260 DO Work Phone: Laboratory - [...] [facility] 260 DO Work Phone: [phone] Platelets (Bld) [#/Vol] 124 10*3/uL below lo w threshold 150 - 450 [facility] 260 DO Work Phone: [phone] RBC (Bld) [#/Vol] 4.01 {x10E12/L} below low threshold See Below [facility] 260 DO Work Phone: [phone] Comment on above: Reference Range: 4.5 0 - 5.90 WBC (Bld) [#/Vol] 6.2 10*3/uL 4.4 - 11.3 [facility] 260 DO Work Phone: [phone] No Panel Informationon 12-21 0.0 {/100_WBC} 0.0-0.0 [facility] 260 DO Work Phone: [phone] Renal Function Panelon 12-21 Albumin BCP dye [Mass/Vol] 3.8 g/dL 3.4 - 5.0 [facility] 260 DO Work Phone: [phone] Anion gap [Moles/Vol] 15 mmol/L 10 - 20 [facility] 260 DO Work Phone: [phone] Calcium [Mass/Vol] 8.8 mg/dL 8.6 - 10.6 [facility] 260 DO Work Phone: [phone] Chloride [Moles/Vol] 110 mmol/L above high threshold 98 - 107 [facility] 260 DO Work Phone: [phone] CO2 [Moles/Vol] 23 mmol/L 21 - 32 [facility] 260 DO Work Phone: [phone] Creatinine [Mass/Vol] 2.22 mg/dL above high threshold See Below [facility] 260 DO Work Phone: [phone] Comment on above: Reference Range: 0.5 0 - 1.30 Glucose [Mass/Vol] 114 mg/dL above high threshold 74 - 99 [facility] 260 DO Work Phone: Phosphate [Mass/Vol] 3.6 mg/dL 2.5 - 4.9 [facility] 260 DO Work Phone: Comment on above: The performance waqar acteristics of phosphorus testing in heparinized plasma have been validated by the individual laboratory site where testing is performed. Testing on heparinized plasma is not approved by the FDA; however, such approval is not necessary. Potassium [Moles/Vol] 4.1 mmol/L 3.5 - 5.3 [facility] 260 DO Work Phone: Sodium [Moles/Vol] 144 mmol/L 136 - 145 [facility] 260 DO Work Phone: Urea nitrogen [Mass/Vol] 68 mg/dL above high threshold 6 - 23 [facility] 260 DO Work Phone: Renal Function Panel 35 {mL/min/1.73m2} Abnormal >60 [facility] 260 DO Work Phone: Comment on above: CALCULATIONS OF ERNST MATED GFR ARE PERFORMED USING THE MDRD STUDY EQUATION FOR THE IDMS-TRACEABLE CREATININE METHODS. CLIN CHEM 2007;53:766-72 Renal Function Panel 29 {mL/min/1.73m2} Abnormal >60 [facility] 260 DO Work Phone: Tacrolimuson 12-21-2020 Tacrolimus (Bld) [Mass/Vol] 6.8 ng/mL 2.0 - 15.0 [facility] 260 DO Work Phone: Comment on above: NOTE: Result was obt ained using a chemiluminescent microparticle immunoassay (CMIA) on the [employer] i system.Optimal therapeutic ranges for immuno-suppressant drugs depend upon an individualpatient's current clinical state, type oforgan transplant, time post-transplant,co-administration of other immunosuppressants,and other clinical factors. The results ofthis test should be correlated with additionalclinical and laboratory data before changesin treatment regimens are made. Coronavirus 2019 RNA by PCR, Symptomaticon 12-20-2020 Coronavirus 2019 RNA by PCR, Symptomatic Not detected Normal See Below [facility] 260 DO Work Phone: Comment on above: SOURCE: Nasal, Nasop haryngealReference Range: Not Detected.This test has received FDA Emergency Use Authorization (EUA) and has been verified by [facility] ([facility]). This test is only authorized for the duration of time that circumstances exist to justify the authorization of the emergency use of in vitro diagnostic tests for the detection of SARS-CoV-2 virus and/or diagnosis of COVID-19 infection under section 564(b)(1) of the Act, 21 U.S.C. 360bbb-3(b)(1), unless the authorization is terminated or revoked sooner. [facility] is certified under CLIA-88 as qualified to perform high complexity testing. Testing is performed in the [facility] located at [address] [place] [address].SARS-CoV-2/Flu/RSV Multiplex Test: Fact sheet for providers: https://www.fda.gov/media/812208/downloadFact sheet for patients: https://www.fda.gov/media/878348/download Date and time of symptom onset Canceled [facility] 260 DO Work Phone: Coronavirus 2019 RNA by PCR, Symptomatic Canceled [facility] 260 DO Work Phone: Comment on [...] this test method. Fact sheet for providers: www.fda.gov/media/845674/downloadFact sheet for patients: www.fda.gov/media/852548/downloadThis test has received FDA Emergency Use Authorization (EUA) and has been verified by [facility] ([facility]). This test is only authorized for the duration of time that circumstances exist to justify the authorization of the emergency use of in vitro diagnostic tests for the detection of SARS-CoV-2 virus and/or diagnosis of COVID-19 infection under section 564(b)(1) of the Act, 21 U.S.C. 360bbb-3(b)(1), unless the authorization is terminated or revoked sooner. [facility] is certified under CLIA-88 as qualified to perform high complexity testing. Testing is performed in the [facility] laboratories located at [address] [place] [address]. Folate, Serumon 12-20-2020 Folate [Mass/Vol] ng/mL >5.0 [facility] 260 DO Work Phone: Comment on [...] TSH Qn 2.00 m[IU]/L See Below [facility] 260 DO Work Phone: Comment on above: Reference Range: 0.4 4 - 3.98 TSH testing is performed using different testing methodology at [facility] than at [facility]. Direct result comparisons should only be made [...] [facility] 260 DO Work Phone: [phone] PT Coag (PPP) [Time] Canceled [facility]diolo [facility] 260 DO Work Phone: [phone] Laboratory - Hematology and Cell countson 12-20-2020 Erythrocyte distribution width (RBC) [Ratio] 12.9 % See Below [facility] 260 DO Work Phone: [phone] Comment on above: Reference Range: 11. 5 - 14.5 Hematocrit (Bld) [Volume fraction] 35.8 % below low threshold See Below [facility] 260 DO Work Phone: [phone] Comment on above: Reference Range: 41. 0 - 52.0 Hemoglobin (Bld) [Mass/Vol] 11.7 g/dL below low threshold See Below [facility] 260 DO Work Phone: [phone] Comment on above: Reference Range: 13. 5 - 17.5 MCHC (RBC) [Mass/Vol] 32.7 g/dL See Below [facility]- [facility] 260 DO Work Phone: [phone] Comment on above: Reference Range: 32. 0 - 36.0 MCV (RBC) [Entitic vol] 90 fL 80 - 100 M [facility] 260 DO Work Phone: [phone] Platelets (Bld) [#/Vol] 131 10*3/uL below lo w threshold 150 - 450 [facility] 260 DO Work Phone: [phone] RBC (Bld) [#/Vol] 3.97 {x10E12/L} below low [...] above: . <100 pg/mL - Heart failure [id number] pg/mL - Intermediate probability of acute heart. [...] Radiologyon 12-20-2020 XR Abdomen AP Normal [facility] 260 DO Work Phone: XR Chest [...] 9.2 mg/dL 8.6 - 10.6 [facility] 260 DO Work Phone: [phone] Chloride [Moles/Vol] 112 mmol/L above high threshold 98 - 107 [facility] 260 DO Work Phone: [phone] CO2 [Moles/Vol] 24 mmol/L 21 - 32 [facility] 260 DO Work Phone: [phone] Creatinine [Mass/Vol] 2.40 mg/dL above high threshold See Below [facility] 260 DO Work Phone: [phone] Comment on above: Reference Range: 0.5 0 - 1.30 Glucose [Mass/Vol] 211 mg/dL above high threshold 74 - 99 [facility] 260 DO Work Phone: [phone] Phosphate [Mass/Vol] 4.5 mg/dL 2.5 - 4.9 MG[facility] 260 DO Work Phone: [phone] Comment on above: The performance waqar acteristics [...] above high threshold 136 - 145 [facility] 260 DO Work Phone: [phone] Urea nitrogen [Mass/Vol] 74 mg/dL above high threshold 6 - 23 [facility] 260 DO Work Phone: Renal Function Panel 31 {mL/min/1.73m2} Abnormal >60 [facility] 260 DO Work Phone: Comment on [...] a chemiluminescent microparticle immunoassay (CMIA) on the Sheet [employer] Mechanic i system.Optimal therapeutic ranges for immuno-suppressant drugs depend upon an individualpatient's current clinical state, type oforgan transplant, time post-transplant,co-administration of other immunosuppressants,and other clinical factors. The results ofthis test should be correlated with additionalclinical and laboratory data before changesin treatment regimens are made. Troponin I, Serumon 12-21-19 Troponin I.cardiac [Mass/Vol] 0.02 ng/mL See Below [facility] 260 DO Work Phone: Comment on [...] is performed using different testing methodology at [facility] than at other [facility] hospitals. Direct result comparisons should [...] above high threshold 211 - 911 [facility]-Cardiolo woo[facility] [address] [employer] Work Phone: Basic Metabolic PanelOrdered By: Manuel Conner on 12-19-2020 Anion gap [Moles/Vol] 11 mmol/L 9 - 17 mmol/L [email or web address] Phone: Calcium [Mass/Vol] 9.3 mg/dL 8.6 - 10. 4 mg/dL [email or web address] Phone: Chloride [Moles/Vol] 107 mmol/L 98 - 10 7 mmol/L [email or web address] Phone: CO2 [Moles/Vol] 23 mmol/L 20 - 31 mmol/L [email or web address] Phone: Creatinine [Mass/Vol] 2.53 mg/dL High 0.70 - 1.20 mg/dL [email or web address] Phone: GFR 30 mL/min Low >60 [employer] Phone: GFR Non- 25 mL/min Low >60 [email or web address] Phone: Glucose [Mass/Vol] 160 mg/dL High 70 - 99 mg/dL [email or web address] Phone: Interpretation and review of laboratory results Abnormal [email or web address] Phone: Potassium [Moles/Vol] 4.5 mmol/L 3.7 - 5.3 mmol/L [email or web address] Phone: Sodium [Moles/Vol] 141 mmol/L 135 - 144 mmol/L [email or web address] Phone: Urea nitrogen (BldV) [Mass/Vol] 76 mg/dL High 8 - 23 mg/dL [email or web address] Phone: Urea nitrogen/Creatinine (Bld) [Mass ratio] 30 High [email or web address] Phone: [email or web address] Phone: Laboratory - Chemistry and C hemistry - challengeOrdered By: Manuel Conner on 12-19-2020 GFR/1.73 sq M.predicted MDRD (S/P/Bld) [Vol rate/Area] [email or web address] Phone: Comment on above: Average GFR for 70 o r more years old: 75 mL/min/1.73sq m Chronic Kidney Disease: <60 mL/min/1.73sq m Kidney failure: <15 mL/min/1.73sq m eGFR calculated using average adult body mass. Additional eGFR calculator available at: http://www.[employer]/Zenfolio_crcl_2012.htm Stage 1: Some kidney damage normal GFR Stage 2: Mild kidney damage GFR 60-89 Stage 3: Moderate kidney damage GFR 30-59 Stage 4: Severe kidney damage GFR 15-29 Stage 5: Severe kidney damage GFR <15 ESRD - chronic treatment by dialysis or transplant TroponinOrdered By: Manuel Conner on 12-19-2020 Interpretation and review of laboratory results Abnormal [email or web address] Phone: Troponin Interp NOT REPORTED [email or web address] Phone: Troponin T NOT REPORTED <0.03 ng/mL [email or web address] Phone: Troponin, High Sensitivity 57 ng/L Critically high 0 - 22 ng/L [email or web address] Phone: Comment on above: High Sensitivity Troponin values cannot be compared with other Troponin methodologies. Patients with high levels of Biotin oral intake (i.e >5mg/day) may have falsely decreased Troponin levels. Samples collected within 8 hours of biotin intake may require additional information for diagnosis. [email or web address] Phone: Basic Metabolic PanelOrdered By: Manuel Conner on 12-18-2020 Anion gap [Moles/Vol] 14 mmol/L 9 - 17 mmol/L [email or web address] Phone: Calcium [Mass/Vol] 9.3 mg/dL 8.6 - 10. 4 mg/dL [email or web address] Phone: Chloride [Moles/Vol] 104 mmol/L 98 - 10 7 mmol/L [email or web address] Phone: CO2 [Moles/Vol] 22 mmol/L 20 - 31 mmol/L [email or web address] Phone: Creatinine [Mass/Vol] 4.1 mg/dL High 0.70 - 1.20 mg/dL [email or web address] Phone: GFR 17 mL/min Low >60 [employer] Phone: GFR Non- 14 mL/min Low >60 [email or web address] Phone: Glucose [Mass/Vol] 148 mg/dL High 70 - 99 mg/dL [email or web address] Phone: Potassium [Moles/Vol] 5.2 mmol/L 3.7 - 5.3 mmol/L [email or web address] Phone: Sodium [Moles/Vol] 140 mmol/L 135 - 144 mmol/L [email or web address] Phone: Urea nitrogen (BldV) [Mass/Vol] 87 mg/dL High 8 - 23 mg/dL [email or web address] Phone: Urea nitrogen/Creatinine (Bld) [Mass ratio] 21 High [email or web address] Phone: Brain Natriuretic PeptideOrd ered By: Manuel Conner on 12-18-2020 BNP Interpretation Pro-BNP Reference Range: [email or web address] Phone: Comment on above: Rule Out: <300 Pagan Zone: Age <50 300-450 Age 50-75 300-900 Age >75 300-1800 Usually represents mild to moderate HF but other cardiopulmonary causes cannot be ruled out. Rule In: Age <50 >450 Age 50-75 >900 Age >75 >1800 Interpretation and review of laboratory results Abnormal [email or web address] Phone: Natriuretic peptide B (Bld) [Mass/Vol] 846 pg/mL High <300 [email or web address] Phone: Comment on above: Pro-BNP results halie ot be compared to BNP results. [email or web address] Phone: EKG Rhythm StripOrdered By: Unknown Result on 12-18-2020 [email or web address] Phone: [email or web address] Phone: Glucose, Whole BloodOrdered By: Manuel Conner on 12-18-2020 Glucose [Mass/Vol] 152 mg/dL High 74 - 100 mg/dL [email or web address] Phone: Interpretation and review of laboratory results Abnormal [email or web address] Phone: [email or web address] Phone: Laboratory - Chemistry and C hemistry - challengeOrdered By: Manuel Conner on 12-18-2020 GFR/1.73 sq M.predicted MDRD (S/P/Bld) [Vol rate/Area] [email or web address] Phone: Comment on above: Average GFR for 70 o r more years old: 75 mL/min/1.73sq m Chronic Kidney Disease: <60 mL/min/1.73sq m Kidney failure: <15 mL/min/1.73sq m eGFR calculated using average adult body mass. Additional eGFR calculator available at: http://www.[employer].Ossia/multiple_crcl_2012.htm Stage 1: Some kidney damage normal GFR Stage 2: Mild kidney damage GFR 60-89 Stage 3: Moderate kidney damage GFR 30-59 Stage 4: Severe kidney damage GFR 15-29 Stage 5: Severe kidney damage GFR <15 ESRD - chronic treatment by dialysis or transplant No Panel InformationOrdered By: Manuel Conner on 12-18-2020 Interpretation and review of laboratory results Abnormal [email or web address] Phone: [email or web address] Phone: TroponinOrdered By: Manuel Conner on 12-18-2020 Troponin Interp NOT REPORTED [email or web address] Phone: Troponin T NOT REPORTED <0.03 ng/mL [email or web address] Phone: Troponin, High Sensitivity 71 ng/L Critically high 0 - 22 ng/L [email or web address] Phone: Comment on above: High Sensitivity Troponin [...] Consider advancement by 5-7 cm, if able. [email or web address] Phone: EXAMINATION: ONE XRA Y VIEW OF [...] cardiomegaly. Bony thorax is without acute abnormality. [email or web address] Phone: Roger, Mhpn Incoming R adiant Results From [employer] - 12/18/2020 1:31 PM EDT EXAMINATION: ONE [...] Consider advancement by 5-7 cm, if able. [email or web address] Phone: [email or web address] Phone: XR CHEST PORTABLEOrdered By: Manuel Conner on 12-18-2020 Mild prominence of interstitial markings suggests mild vascular congestion with mild streaky bibasilar atelectasis [email or web address] Phone: EXAMINATION: ONE XRA Y VIEW OF THE CHEST 12/18/2020 11:18 am COMPARISON: December 17, 2020, chest examination HISTORY: ORDERING SYSTEM PROVIDED HISTORY: Congestion TECHNOLOGIST PROVIDED HISTORY: Congestion FINDINGS: Median sternotomy. Stable cardiomegaly/mild tortuosity of the thoracic aorta Mild streaky bibasilar density. Mild prominence of interstitial markings Possible small right pleural effusion Degenerative changes of the thoracic spine/shoulders [email or web address] Phone: Roger, Mhpn Incoming R adiant Results From [employer] - 12/18/2020 11:26 AM EDT EXAMINATION: ONE [...] vascular congestion with mild streaky bibasilar atelectasis [email or web address] Phone: [email or web address] Phone: APTTOrdered By: Manuel lew on 12-17-2020 aPTT Coag (Bld) [Time] 22.8 s Low [employer] Phone: Comment on above: IV Heparin Therapy Range: 62.0-94.0 Interpretation and review of laboratory results Abnormal [email or web address] Phone: [email or web address] Phone: Blood Gas, VenousOrdered By: Manuel Conner on 12-17-2020 Shilo Test NOT REPORTED [email or web address] Phone: Carboxyhemoglobin NOT REPORTED 0.0 - 5.0 % [email or web address] Phone: Comment on above: FIO2 NOT REPORTED [email or web address] Phone: HCO3 (Bld) [Moles/Vol] 21.9 mmol/L Low 24.0 - 30.0 mmol/L [email or web address] Phone: Interpretation and review of laboratory results Abnormal [email or web address] Phone: Methemoglobin NOT REPORTED 0.0 - 1.9 % [email or web address] Phone: Mode NOT REPORTED [email or web address] Phone: Negative Base Excess, Angelo 5.7 mmol/L High 0.0 - 2.0 mmol/L [facility] Phone: NOTIFICATION NOT REPORTED [facility] Phone: NOTIFICATION TIME NOT REPORTED [facility] Phone: O2 Device/Flow/% NOT REPORTED [facility] Phone: Oxygen saturation in Blood 31.2 % Low 60.0 - 85.0 % [facility] Phone: Oxyhemoglobin NOT REPORTED 95.0 - 98.0 [...] Work Phone: Respiratory Rate NOT REPORTED [facility] Work Phone: Sample Site NOT REPORTED [facility] Work Phone: Set Rate NOT REPORTED [facility] Work Phone: Text for Respiratory NOT REPORTED [facility] Work Phone: Total Hb NOT REPORTED 12.0 - 16.0 g/dl [facility] Work Phone: Total Rate NOT REPORTED [facility] Work Phone: VT NOT REPORTED [facility] Work Phone: [facility] Work Phone: Brain Natriuretic PeptideOrd ered By: Manuel Conner on 12-17-2020 BNP Interpretation Pro-BNP Reference Range: [email or web address] Phone: Comment on above: Rule Out: <300 Pagan Zone: Age <50 300-450 Age 50-75 300-900 Age >75 300-1800 Usually represents mild to moderate HF but other cardiopulmonary causes cannot be ruled out. Rule In: Age <50 >450 Age 50-75 >900 Age >75 >1800 Natriuretic peptide B (Bld) [Mass/Vol] 1428 pg/mL High <300 [email or web address] Phone: Comment on above: Pro-BNP results halie ot be compared to BNP results. CBC Auto DifferentialOrdered By: Manuel Conner on 12-17-2020 Absolute Eos # 0.03 [email or web address] Phone: Absolute Immature Granulocyte 0.03 [email or web address] Phone: Absolute Lymph # 0.96 Low [facility] Phone: Absolute [place] # 0.52 [facility] Phone: Basophils (Bld) [#/Vol] 10*3/uL M [facility] Phone: Basophils/100 WBC (Bld) 0 % 0 - 2 % M [facility] Phone: Differential Type NOT REPORTED [facility] Phone: Eosinophils/100 WBC (Bld) 0 % Low 1 - 4 % [facility] Phone: Hematocrit (Bld) [Volume fraction] 37.2 % Low 40.7 - 50.3 % [facility] Phone: Hemoglobin.gastrointest inal spec 1 Ql (Stl) 11.5 g/dL Low 13.0 - 17.0 g/dL [facility] Phone: Immature granulocytes/100 WBC (Bld) 0 % 0 [facility] Phone: Interpretation and review of laboratory results Abnormal [facility] Phone: Lymphocytes/100 WBC (Bld) 11 % Low 24 - 43 % [facility] Phone: MCH (RBC) [Entitic mass] 28.5 pg 25.2 - 33.5 pg [facility] Phone: MCHC (RBC) [Mass/Vol] 30.9 g/dL 28.4 - 34.8 g/dL [facility] Phone: MCV (RBC) [Entitic vol] 92.3 fL 82.6 - 102.9 fL [facility] Phone: Monocytes/100 WBC (Bld) 6 % 3 - 12 % M [facility] Phone: NRBC Automated 0.0 0.0 per 100 WBC [facility] Phone: Platelet distribution width (Bld) [Ratio] 13.0 % 11.8 - 14.4 % [facility] Phone: Platelet Estimate NOT REPORTED [facility] Phone: Platelet mean volume (Bld) [Entitic vol] NOT REPORTED 8.1 - 13.5 fL [facility] Phone: Platelets (Bld) [#/Vol] See Reflexed IPF Result [facility] Phone: RBC (Bld) [#/Vol] 4.03 10*6/uL Low 4.21 - 5.77 m/uL [facility] Phone: RBC (Bld) [#/Vol] NOT REPORTED [facility] Phone: Segmented neutrophils/100 WBC (Bld) 82 % High 36 - 65 % [facility] Phone: Segs Absolute 6.94 [facility] Phone: WBC (Bld) [#/Vol] 8.5 10*3/uL [facility] Phone: WBC (Bld) [#/Vol] NOT REPORTED [facility] Phone: [facility] Phone: COVID-19, RapidOrdered By: Agnieszka yaritza Conner on 12-17-2020 SARS-CoV-2 (COVID-19) RNA JOYCE+probe Ql (Unsp spec) Not detected Not Detected [facility] Phone: Comment on above: Rapid NAAT: The [...] management decisions. Fact sheet for Healthcare Providers: https://www.fda.gov/media/598008/download Fact sheet for Patients: https://www.fda.gov/media/056721/download Methodology: Isothermal Nucleic Acid Amplification Specimen Description .NASOPHARYNGEAL SWAB [email or web address] Phone: [facility] Phone: CT HEAD WO CONTRASTOrdered B y: Manuel Conner on 12-17-2020 No acute intracrania l abnormality. 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 Minimal parenchymal volume loss. Minimal chronic microvascular disease. [facility] Phone: EXAMINATION: CT OF T HE HEAD [...] of the visualized skull or soft tissues. [facility] Phone: Roger, pn Incoming R adiant Results From [employer] - 12/17/2020 9:36 AM EDT EXAMINATION: CT [...] parenchymal volume loss. Minimal chronic microvascular disease. [facility] Phone: [facility] Phone: Comprehensive Metabolic Pane l w/ Reflex to MGOrdered By: Manuel Conner on 12-17-2020 Albumin [Mass/Vol] 4 g/dL 3.5 - 5.2 g/dL [facility] Phone: Albumin/Globulin [Mass ratio] 1.3 {ratio} [facility] Phone: ALP (Bld) [Catalytic activity/Vol] 66 U/L 40 - 129 U/L [facility] Phone: ALT [Catalytic activity/Vol] 12 U/L 5 - 41 U/L [facility] Phone: Anion gap [Moles/Vol] 19 mmol/L High 9 - 17 mmol/L [facility] Phone: AST [Catalytic activity/Vol] 18 U/L <40 [facility] Phone: Bilirubin [Mass/Vol] 0.16 mg/dL Low 0.3 - 1 .2 mg/dL [facility] Phone: Calcium [Mass/Vol] 8.8 mg/dL 8.6 - 10. 4 mg/dL [facility] Phone: Chloride [Moles/Vol] 102 mmol/L 98 - 10 7 mmol/L [facility] Phone: CO2 [Moles/Vol] 19 mmol/L Low 20 - 31 mmol/L [facility] Phone: Creatinine [Mass/Vol] 6.59 mg/dL Critically high 0.7 0 - 1.20 mg/dL [facility] Phone: Free PSA/Total PSA [Mass fraction] 7.0 g/dL 6.4 - 8.3 g/dL [facility] Phone: GFR 10 mL/min Low >60 [employer] Work Phone: GFR Non- 8 mL/min Low >60 [facility] Phone: Glucose [Mass/Vol] 197 mg/dL High 70 - 99 mg/dL [facility] Phone: Potassium [Moles/Vol] 4.6 mmol/L 3.7 - 5.3 mmol/L [facility] Phone: Sodium [Moles/Vol] 140 mmol/L 135 - 144 mmol/L [facility] Phone: Urea nitrogen (BldV) [Mass/Vol] 96 mg/dL Critically high 8 - 23 mg/dL [facility] Phone: Urea nitrogen/Creatinine (Bld) [Mass ratio] 15 [facility] Phone: EKG 12 LeadOrdered By: Kathy Conner on 12-17-2020 Atrial Rate 85 BPM [facility] Phone: P [place] -15 degrees [facility] Phone: P-R Interval 224 ms [facility] Phone: Q-T Interval 414 ms [facility] Phone: [phone] QRS Duration 120 ms [facility] Phone: QTc Calculation (Bazett) 492 ms [facility] Phone: R [place] 99 degrees [facility] Phone: T [place] 44 degrees [facility] Phone: Ventricular Rate 85 BPM [facility] Phone: Sinus rhythm with 1s t degree A-V block Rightward axis Septal infarct , age undetermined Abnormal ECG No previous ECGs available Confirmed by JARON BERNARD ([id number]) on 12/17/2020 11:51:30 PM [email or web address] Phone: Roger, [facility] Incoming E kg Results From [facility] [employer] - 12/17/2020 11:51 PM EDT Sinus rhythm with 1st degree A-V block Rightward axis Septal infarct , age undetermined Abnormal ECG No previous ECGs available Confirmed by JARON BERNARD ([id number]) on 12/17/2020 11:51:30 PM [email or web address] Phone: [facility] Phone: Immature Platelet FractionOr dered By: Manuel Conner on 12-17-2020 Interpretation and review of laboratory results Abnormal [email or web address] Phone: Platelet, Fluorescence 110 Low Me [employer] Phone: Platelet, Immature Fraction 4.6 % 1.1 - 10.3 % [email or web address] Phone: [facility] Phone: Laboratory - Chemistry and C hemistry - challengeOrdered By: Manuel Conner on 12-17-2020 GFR/1.73 sq M.predicted MDRD (S/P/Bld) [Vol rate/Area] [facility] Phone: Comment on above: Average GFR for 70 o r more years old: 75 mL/min/1.73sq m Chronic Kidney Disease: <60 mL/min/1.73sq m Kidney failure: <15 mL/min/1.73sq m eGFR calculated using average adult body mass. Additional eGFR calculator available at: http://www.[employer]Trip.[place]/multiple_crcl_2012.htm Stage 1: Some kidney damage normal GFR Stage 2: Mild kidney damage GFR 60-89 Stage 3: Moderate kidney damage GFR 30-59 Stage 4: Severe kidney damage GFR 15-29 Stage 5: Severe kidney damage GFR <15 ESRD - chronic treatment by dialysis or transplant Lactic AcidOrdered By: Kathy Conner on 12-17-2020 Lactate [Moles/Vol] 1.3 mmol/L 0.5 - 2. 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 Flow artifact in the proximal M1 segments of the bilateral MCAs and intracranial right ICA. The bilateral intracranial vertebral arteries are not imaged. [email or web address] Phone: EXAMINATION: MRA OF THE HEAD WITHOUT CONTRAST 12/17/2020 1:32 pm TECHNIQUE: MRA of the head was performed utilizing hxbr-rk-mwyquy imaging with MIP images. No intravenous contrast [...] cerebral arteries. No evidence of intracranial aneurysm. [facility] Phone: Roger, Mhpn Incoming R adiant Results From [employer] - 12/17/2020 2:02 PM EDT EXAMINATION: MRA OF THE HEAD WITHOUT CONTRAST 12/17/2020 1:32 pm TECHNIQUE: MRA of the head was performed utilizing uhos-uq-ruwizi imaging with MIP images. No intravenous contrast [...] bilateral intracranial vertebral arteries are not imaged. [email or web address] Phone: [facility] Phone: MRI BRAIN WO CONTRASTOrdered By: Manuel Conner on 12-17-2020 Addendum by Cristhian Hardin MD on 12/17/2020 2:02 PM ADDENDUM: Absence of normal flow void in left vertebral artery, likely related to severe stenosis versus occlusion. [facility] Phone: No acute intracrania l abnormality. 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 Mild parenchymal volume loss. Mild chronic microvascular disease. 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 [email or web address] Phone: EXAMINATION: MRI OF THE BRAIN WITHOUT [...] The soft tissues demonstrate no acute abnormality. [facility] Phone: Roger, [facility] Incoming R adiant Results From [employer] [facility] - 12/17/2020 1:55 PM EDT EXAMINATION: MRI [...] internal carotid artery, likely related to occlusion. [employer] Work Phone: [employer] Work Phone: Microscopic UrinalysisOrdere d By: Manuel Conner on 12-17-2020 - [employer] Work Phone: Amorphous, UA NOT REPORTED None [employer] Work Phone: Bacteria, UA NOT REPORTED None [employer] Work Phone: Casts UA NOT REPORTED /LPF [facility] Phone: Crystals, UA NOT REPORTED None /HPF [employer] Work Phone: Epithelial Cells UA 0 TO 2 [employer] Work Phone: Mucus, UA NOT REPORTED None [employer] Work Phone: Other Observations UA NOT REPORTED NOT REQ. M [facility] Phone: RBC, UA 2 TO 5 [employer] Work Phone: Renal Epithelial, UA NOT REPORTED 0 /HPF [employer] Work Phone: Trichomonas, UA NOT REPORTED None [employer] Work Phone: WBC, UA 0 TO 2 [facility] Work Phone: Yeast, UA NOT REPORTED None [employer] Work Phone: [facility] Work Phone: No Panel InformationOrdered By: Manuel Conner on 12-17-2020 Interpretation and review of laboratory results Abnormal [employer] Work Phone: [employer] Work Phone: Interpretation and review of laboratory results Abnormal [employer] Work Phone: [employer] Work Phone: Protime-INROrdered By: Kathy Conner on 12-17-2020 INR Coag (Bld) [Relative time] 1.1 {INR} [email or web address] Phone: Comment on above: Non-therapeutic Range: INR = 0.9-1.2 Therapeutic Range: Moderate Anticoagulant Intensity: INR = 2.0-3.0 High Anticoagulant Intensity: INR = 2.5-3.5 PT Coag (PPP) [Time] 13.7 s [employer] Phone: [email or web address] Phone: TroponinOrdered By: Manuel Conner on 12-17-2020 Interpretation and review of laboratory results Abnormal [email or web address] Phone: Troponin Interp NOT REPORTED [facility] Phone: Troponin T NOT REPORTED <0.03 ng/mL [email or web address] Phone: Troponin, High Sensitivity 79 ng/L Critically high 0 - 22 ng/L [email or web address] Phone: Comment on above: High Sensitivity Troponin values cannot be compared with other Troponin methodologies. Patients with high levels of Biotin oral intake (i.e >5mg/day) may have falsely decreased Troponin levels. Samples collected within 8 hours of biotin intake may require additional information for diagnosis. [email or web address] Phone: Troponin Interp NOT REPORTED [email or web address] Phone: Troponin T NOT REPORTED <0.03 ng/mL [email or web address] Phone: Troponin, High Sensitivity 85 ng/L Critically high 0 - 22 ng/L [email or web address] Phone: Comment on above: High Sensitivity Troponin values cannot be compared with other Troponin methodologies. Patients with high levels of Biotin oral intake (i.e >5mg/day) may have falsely decreased Troponin levels. Samples collected within 8 hours of biotin intake may require additional information for diagnosis. Urinalysis, reflex to micros copicOrdered By: Manuel Conner on 12-17-2020 Bilirubin Urine Negative NEGATIVE [employer] Work Phone: Color, UA Yellow Yellow [employer] Work Phone: Glucose, Ur Negative NEGATIVE [employer] Work Phone: Interpretation and review of laboratory results Abnormal [employer] Work Phone: Ketones Ql (U) Negative NEGATIVE [employer] Work Phone: Leukocyte esterase Test strip Ql (U) Negative NEGATIVE [employer] Work Phone: Nitrite, Urine Negative NEGATIVE [employer] Work Phone: pH, UA 5.5 [employer] Work Phone: Protein, UA TRACE Abnormal NEGATIVE [email or web address] Phone: Specific [place], UA 1.025 High [employer] Work Phone: Turbidity UA Clear Clear [employer] Work Phone: Urinalysis Comments NOT REPORTED [facility] [employer] Work Phone: Urine Hgb TRACE Abnormal NEGATIVE [email or web address] Phone: Urobilinogen, Urine Normal Normal [email or web address] Phone: [employer] Work Phone: XR CHEST PORTABLEOrdered By: Manuel Conner on 12-17-2020 Mild streaky bibasil ar atelectasis with possible small bilateral pleural effusions [email or web address] Phone: EXAMINATION: ONE XRA Y VIEW OF THE CHEST 12/17/2020 9:30 am COMPARISON: None. HISTORY: ORDERING SYSTEM PROVIDED HISTORY: Congestion TECHNOLOGIST PROVIDED HISTORY: Congestion FINDINGS: Median sternotomy. Normal cardiopericardial silhouette Low volume lungs. Mild streaky bibasilar densities, possible possible small bilateral pleural effusions. Clear upper lungs Degenerative changes of the thoracic spine/shoulders [email or web address] Phone: Roger, Mhpn Incoming R adiant Results From [facility] - 12/17/2020 9:46 AM EDT EXAMINATION: ONE [...] atelectasis with possible small bilateral pleural effusions [email or web address] Phone: [email or web address] Phone: Vital Signs Date Time Vital Sign Value Performing Clinician Facility 07-03-2021 15:01-0400 Body temperature 99.32 [degF] Michael Carballo Other Phone: [facility] 07-03-2021 15:01-0400 Diastolic blood pressure 66 mm[Hg] Michael Carballo Other Phone: [facility] 07-03-2021 15:01-0400 Heart rate 80 /min Michael Carballo Other Phone: [facility] 07-03-2021 15:01-0400 Respiratory rate 22 /min Michael Carballo Other Phone: [facility] 07-03-2021 15:01-0400 SaO2% (BldA) [Mass fraction] 97 % Michael Carballo Other Phone: [facility] 07-03-2021 15:01-0400 Systolic blood pressure 127 mm[Hg] Michael Carballo Other Phone: [facility] 07-03-2021 06:30-0400 Body weight 100.5 kg Michael Carballo Other Phone: [facility] 06-27-2021 13:00-0400 Diastolic blood pressure 69 mm[Hg] MD Michael Carballo Work Phone: [facility] 06-27-2021 13:00-0400 Heart rate 87 /min MD Michael Carballo Work Phone: [facility] 06-27-2021 13:00-0400 Respiratory rate 17 /min MD Michael Carballo Work Phone: [facility] 06-27-2021 13:00-0400 SaO2% (BldA) [Mass fraction] 94 % MD Michael Carballo Work Phone: [facility] 06-27-2021 13:00-0400 Systolic blood pressure 153 mm[Hg] MD Michael Carballo Work Phone: [facility] 06-27-2021 08:00-0400 Body temperature 97.9 [degF] MD Michael Carballo Work Phone: [facility] 06-27-2021 05:44-0400 Body weight 106.5 kg MD Michael Carblalo Work Phone: [facility] 06-26-2021 14:12-0400 Body height 182.88 cm MD Michael Carballo Work Phone: [facility] 06-26-2021 00:24-0400 Body height 182.88 cm MD Michael Carballo Work Phone: [facility] 06-26-2021 00:24-0400 Body mass index (BMI) [Ratio] 32.8 kg/m2 MD Michael Carballo Work Phone: [facility] 06-26-2021 00:24-0400 Body temperature 97.7 [degF] MD Michael Carballo Work Phone: [facility] 06-26-2021 00:24-0400 Body weight 109.9 kg MD Michael Carballo Work Phone: [facility] 06-26-2021 00:24-0400 Diastolic blood pressure 100 mm[Hg] MD Michael Carballo Work Phone: [facility] 06-26-2021 00:24-0400 Heart rate 88 /min MD Michael Carballo Work Phone: [facility] 06-26-2021 00:24-0400 Respiratory rate 18 /min MD Michael Carballo Work Phone: [facility] 06-26-2021 00:24-0400 SaO2% (BldA) [Mass fraction] 96 % MD Michael Carballo Work Phone: [facility] 06-26-2021 00:24-0400 Systolic blood pressure 221 mm[Hg] MD Michael Carballo Work Phone: [facility] 12-19-2020 20:01-0400 Diastolic blood pressure 64 mm[Hg] Manuel Conner MD Work Phone: [employer] Work Phone: 12-19-2020 20:01-0400 Systolic blood pressure 182 mm[Hg] Manuel Conner MD Work Phone: [employer] Work Phone: 12-19-2020 19:00-0400 Heart rate 75 /min Manuel Conner MD Work Phone: [employer] Work Phone: 12-19-2020 19:00-0400 Respiratory rate 23 /min Manuel Conner MD Work Phone: [employer] Work Phone: 12-19-2020 19:00-0400 SaO2% (BldA) [Mass fraction] 94 % Manuel oCnner MD Work Phone: [employer] Work Phone: 12-18-2020 06:30-0400 Body temperature 98.29 [degF] Manuel Conner MD Work Phone: [employer] Work Phone: Encounters Encounter Date Encounter Type Care Provider Facility Start: 09-28-2022 AUDIT Michael Carballo Work Phone: GQ-Dcgunjloxm-Bhnyncoc [facility] 260 DO Work Phone: Start: 07-24-2022 End: 07-24-[address] MICHAEL CARBALLO . Facility: Start: 07-15-2022 End: 07-15-[address] MICHAEL CARBALLO . Facility: Start: 07-13-2022 Patient encounter procedure Michael Carballo Work Phone: CW-Khhplxbwqk-WRD [place] [address] Work Phone: Start: 07-13-2022 Phys/qhp telephone evaluation 11-20 min Michael Carballo Work Phone: YS-Rasibyyzim-TMS [facility] [address] Work Phone: Start: 07-13-2022 ambulatory MD SCOUT ROMO Facility:[facility] Start: 07-13-2022 End: 07-13-[address] MICHAEL CARBALLO . Facility: Start: 07-09-2022 AUDIT Michael Carballo Work Phone: RR-Bdbzgkbyta-EES [place] [address] Work Phone: Start: 06-08-2022 ambulatory Facility: [facility] Start: 06-05-2022 End: 06-05-[address] MICHAEL CARBALLO . Facility: Start: 06-04-2022 End: 06-04-[address] MICHAEL CARBALLO . Facility: Start: 04-14-2022 End: 04-15-2022 ambulatory DONNA [facility] Start: 04-14-2022 End: 04-14-2022 Subsequent hospital visit by physician Michael Carballo Work Phone: [facility] Start: 10-30-2021 End: 10-31-2021 ambulatory Manfred Wilson Facility:[facility] Start: 10-28-2021 End: 10-28-[address] MICHAEL CARBALLO . Facility: Start: 10-15-2021 Patient encounter procedure Michael Carballo Work Phone: XY-Gunljkggic-GFW [facility] [address] [place] Work Phone: Start: 10-15-2021 ambulatory DO FELICIA ASTORGA Facility:[facility] Start: 08-05-2021 End: 08-06-[address] MICHAEL CARBALLO . Facility: Start: 07-16-2021 Office outpatient vi sit 25 minutes Michael Carballo Work Phone: SX-Pubcuhkwmb-OUX [facility] [address] [place] Work Phone: Start: 07-16-2021 Patient encounter procedure Michael Carballo Work Phone: GH-Zpuuggwtuv-CNV [facility] [address] [place] Work Phone: Start: 06-27-2021 End: 07-03-2021 [id number] Start: 06-25-2021 End: 06-27-2021 Evaluation and management of inpatient MD Michael Carballo Work Phone: [facility] Start: 06-25-2021 Patient encounter procedure Michael Carballo Work Phone: DO-Qygqerrpoi-GJW [facility] [address] [place] Work Phone: Start: 06-24-2021 End: 06-24-2021 Patient encounter procedure MD Michael Carballo Work Phone: [facility] Start: 05-28-2021 AUDIT Michael Carballo Work Phone: XX-Oglxftnrtz-LAJ [facility] [address] [place] Work Phone: Start: 05-27-2021 End: 05-27-2021 Patient encounter procedure MD Michael Carballo Work Phone: [facility] Start: 01-01-2021 Patient encounter procedure Michael Carballo Work Phone: VV-Wnuyfvxxjj-HZO [facility] [address] [place] Work Phone: Start: 01-01-2021 WANG, Provider : Rizwan,Felicia, Status: Pen, Time: 2:20 PM Michael Carballo Work Phone: IM-Vywjrkvfip-Quaqwdpb [facility] 260 DO Work Phone: Start: 12-31-2020 AUDIT Michael Carballo Work Phone: EU-Htimnzmtzm-Ymqfkdqe [facility] 260 DO Work Phone: Start: 12-17-2020 End: 12-19-2020 Emergency department patient visit Manuel Conner MD Work Phone: [facility] ED Comment on above: [place] coma scale t otal score 13-15, at hospital admission (Primary Dx); Acute kidney injury (HCC); Heart replaced by transplant (HCC); Confusion Start: 11-21-2020 AUDIT Michael Carballo Work Phone: QX-Xhfxelpyjd-QZR [facility] [place] [address] [place] Work Phone: Start: 10-31-2020 AUDIT Michael Carballo Work Phone: [facility] Work Phone: Procedures Date Procedure Procedure Detail [...] Heart repla vaibhav by transplant ([facility]) Manuel Conner MD Work Phone: H/O: [...] Montse Villanueva, Status: Pen, Time: 2:00 PM FP-Pnjmviwyfw-BYT [place] [address] Work Phone: Start: 07-13-2022 WANG, Provider : Scout Romo, Status: Pen, Time: 1:40 PM VIRFUCORI, Provider: Scout Romo, Status: Pen, Time: 1:40 PM IE-Unnraamiff-JHD [place] [address] Work Phone: Start: 04-01-2022 WANG, Provider : Felicia Astorga, Status: Pen, Time: 1:00 PM WANG, Provider: Felicia Astorga, Status: Pen, Time: 1:00 PM BT-Cqfbhxtzvg-SBB [facility] [address] [place] Work Phone: Start: 12-19-2021 Creatinine measurement Creatinine [facility] Work Phone: Start: 12-19-2021 Potassium monitoring Potassium monit nyla [email or web address] Phone: Start: 10-20-2021 Influenza vaccination Flu vaccine (# 1) [facility] Start: 07-16-2021 Patient encounter procedure [facility] Start: 07-03-2021 End: 07-04-2022 Insulin Glargine (Lantus) Injectable Subcutaneous Once ; DOSE = 12 unit(s) SubCutaneous At BedtimeNotes from Pharmacy: [facility] Start: 03-Jul-2021 End: 03-Jul-2022 Ordered: 03-Jul-2021 Magy Galeas Intent [facility] Start: 07-01-2021 End: 07-02-2022 [facility] Comment on above: IF patient HAS [...] End: 30-Jun-2022 Ordered: 30-Jun-2021 Jihan Storm [facility] Start: 06-27-2021 End: 06-28-2022 Sodium Chloride 0.9% Injectable Flush Peripheral Line ; via Peripheral LineVolume = 10 mL IntraVenous Flush Every 8 Hours and as Needed Start: 27-Jun-2021 End: 27-Jun-2022 Ordered: 26-Jun-2021 Magy Galeas Intent [facility] Start: 06-26-2021 Duplex scan of upper limb arteries US arterial duplex UE RT [facility] Start: 12-17-2020 Annual Wellness Visi t (AWV) Annual Wellness Visit (AWV) [employer] Start: 11-20-2020 Influenza vaccination Flu vaccine (# 1) [employer] Work Phone: Start: 07-16-2020 COVID-19 Vaccine (3 - Pfizer risk 3-dose series) COVID-19 Vaccine (3 - Pfizer risk 3-dose series) [employer] Work Phone: Start: 07-16-2020 COVID-19 Vaccine (3 - Pfizer risk series) COVID-19 Vaccine (3 - Pfizer risk series) [employer] Start: 10-01-2016 Pneumococcal 65+ yrs at Risk Vaccine (2 of 2 - PCV13) Pneumococcal 65+ yrs at Risk Vaccine (2 of 2 - PCV13) [email or web address] Phone: Start: 10-10-1993 Shingles Vaccine (1 of 2) Shingles Vaccine (1 of 2) [employer] Work Phone: Start: 10-10-1962 DTaP/Tdap/Td vaccine (1 - Tdap) DTaP/Tdap/Td vaccine (1 - Tdap) [employer] Start: 10-10-1962 Shingles vaccine (1 of 2) Shingles vaccine (1 of 2) [employer] Start: 10-10-1961 Hepatitis C screening Hepatitis C sc reen [facility] [employer] Start: 1955 Depression Screen Depression Screen [place] [facility]: [facility]1955 [facility] Start: 1945 Hepatitis C screening Hepatitis C sc reen [facility] Work Phone: Calcium [Mass/volume ] in Serum or Plasma [facility] Work Phone: Carbon dioxide, tota l [Moles/volume] in Serum or Plasma [facility] Work Phone: Chloride [Moles/volu me] in Serum or Plasma [facility] Work Phone: Creatinine and Glomerular filtration rate.predicted panel - Serum, Plasma or Blood [facility] Work Phone: Culture, Blood [facility] Work Phone: Culture, Wound Culture, Wound Microbiology Routine 04/14/2022 3:25 PM EST [facility] Work Phone: Glucose [Mass/volume ] in Serum or Plasma [facility] Work Phone: Goals of care, counseling/discussion [facility] Measurement of renal function [facility] Work Phone: Potassium [Moles/volume] in Serum or Plasma [facility] Work Phone: Sodium [Moles/volume ] in Serum or Plasma [facility] Work Phone: Tacrolimus [Mass/volume] in Blood [facility] Work Phone: End: 12-18-2020 Tacrolimus Level [facility] Work Phone: Comment on above: One Time for 1 Occur rences starting 12/18/2020 until 12/18/2020 End: 12-19-2020 Tacrolimus Level Tacrolimus Level Lab Routine One Time for 1 Occurrences starting 12/19/2020 until 12/19/2020 [employer] Work Phone: Comment on above: One Time for 1 Occur rences starting 12/19/2020 until 12/19/2020 [facility] Work Phone: Urea nitrogen [Mass/volume] in Serum or Plasma [facility] Work Phone: Immunizations Immunization Date Immunization Notes Care Provider Haven de leon 03-21-2021 Pfizer-BioNTech COVI D-19 Vacc 30 MCG/0.3ML Intramuscular Suspension Michael Carballo Work Phone: [facility] Heather Vallecillo [address] [place] Work Phone: 06-18-2020 Pfizer-BioNTech COVI D-19 Vacc 30 MCG/0.3ML Intramuscular Suspension Michael Candelario Carballo Work Phone: [facility] Work Phone: 05-27-2020 Pfizer-BioNTech COVI D-19 Vacc 30 MCG/0.3ML Intramuscular Suspension Michael E Carballo Work Phone: [facility] Work Phone: 12-29-2019 Seasonal trivalent influenza vaccine, adjuvanted, preservative free Michael Palomino Carballo Work Phone: [facility] Work Phone: 12-22-2017 Seasonal trivalent influenza vaccine, adjuvanted, preservative free Michael Palomino Carballo Work Phone: [facility] Work Phone: 12-28-2016 Seasonal trivalent influenza vaccine, adjuvanted, preservative free Michael Palomino Carballo Work Phone: [facility] Work Phone: 12-24-2015 influenza, high dose seasonal, preservative-free Michael Palomino Carballo Work Phone: [facility] Work Phone: 10-02-2015 influenza, seasonal, injectable Michael Palomino Carballo Work Phone: [facility] Work Phone: 10-02-2015 pneumococcal polysaccharide vaccine, 23 valent Michael Palomino Carballo Work Phone: [facility] Work Phone: 01-09-2015 influenza, injectabl e, quadrivalent, contains preservative Michael Palomino Carballo Work Phone: [facility] Work Phone: 01-03-2013 influenza, seasonal, injectable Michael Palomino Carballo Work Phone: [facility] Work Phone: 01-07-2009 influenza virus vacc ine, whole virus Michael Christianight Work Phone: [facility] Work Phone: 01-20-2005 influenza virus vacc ine, whole virus Michael Palomino Carballo Work Phone: [facility] Work Phone: Payers Date Payer Category Payer Self-pay [id number] 1961 Medicaid [id number] 1961 Medicare [id number] 1961 Medicare [id number] 1961 Private Health Insurance [id number] 1943 Unknown [id number] 2.16.8 [id number] 1943 Unknown [id number] 2.16.84 [id number] 1943 Unknown [id number] 2.16.84 [id number] 1943 Unknown [id number] 2.16.84 [id number] 1943 Unknown [id number] 2.16.84 [id number] 1943 Unknown [id number] 2.16.84 [id number] 1943 Unknown [id number] 2.16.84 [id number] 1943 Unknown [id number] 2.16.84 [id number] 1943 Unknown [id number] 2.16. [id number] 1943 Unknown [id number] 2.16. [id number] Unknown Unknown [id number] 2.16.8 [id number] Social History Date Type Detail Facility Former smoker Former smoker [employer] Work Phone: Start: 12-17-2020 Tobacco smoking stat us FLIS Unknown if ever smoked [employer] Work Phone: Start: 1945 Sex Assigned At Not on file M [facility] Work Phone: Exposure to SARS-CoV -2 (event) Unable to assess [employer] Start: 12-13-2020 [facility] Start: 1945 Sex Assigned At Male F [facility] Start: 06-26-2021 End: 06-26-2021 Tobacco smoking status NHIS Ex-smoker (finding) [facility] End: 03-22-1996 History of tobacco use [facility] Work Phone: Goals Date Patient Goal Desired Activity /State Functional Status Date Assessment Result Facility 06-27-2021 Functional status Patient at Baseline [facility] Work Phone: Functional observable [facility] Mental Status Date Assessment Result Facility 06-30-2021 Cognitive functi ons [id number] [facility] 06-27-2021 Cognitive function Cognitive Sta tus Patient at Baseline [facility] Work Phone: Clinical Notes 07-05-2000 to 07-03-2021 <item><item><item><item><item><item><item><item><item> Note Date & Type Note Facility 07-03-2021 Hospital Discharge instructions Activity:activity with assistance. May shower.Labs 1 (Modify Template):Lab Test(s): Basic Metabolic Panel, CBC, Tacrolimus levelDate To Be Drawn: 07/07/2021all Results To: Dr. Felicia Moore Results To: [id number] Orders:Blood Glucose Monitoring: ACHSAdditional Instructions: Use of [...] Uncontrolled diabetesCall to Schedule in: 2 weeksLocation: [facility] Up Appointment 2:Physician/Dept/Service: Dr. Felicia Astorga / Heart failure and transplantReason for Referral: hospital follow-upLocation[facility] 1800Comments: Our office will call you to set up an appointment either in person or virtually. [facility] 06-27-2021 Discharge summary Note Date/Time June 27, 2021 10:32am [facility] [address] [place] [address] Discharge Summary Signed Patient: Oliverio Escobedo MR#: [id number] : 1945 Acct:[id number] Age/Sex: 75 / M Adm Date: 2 Loc: Room: [address] [place] [address]: Yoshi Hernandez MD Copies to: MD Justa OlveraNOV[facility] CENTERSHELLY Howard Providers Date of [...] 1 tab PO BID RF: 0 omega 0-uml-edl-fish oil [Fish Oil] 1,000 mg (120 mg-180 [...] signed by Yoshi Hernandez MD> 06/27/21 1032 [facility] Work Phone: 1(755) 921-736004-08-2022 Progress note Author Bonilla Ortiz [facility] June 27, 2021 10:27am Note Date/Time June 27, 2021 10:2 7am [facility] [address] [place] [address] Cardiology Progress Note Signed Patient: Oliverio Escobedo MR#: [id number] : 1945 Acct:[id number] Age/Sex: 75 / M Adm Date: 2 Loc: 3T Room: [address] [place] [address] Type : ADM INOo Attending Dr: Yoshi Hernandez MD Copies to: ~ Date of Service: 06/27/2021 Subjective Principal diagnosis: Edema w history of orthotopic heart transplant Interval history: Mr. Escobedo is a 75 year old male with known history of orthotopic heart transplantation in [address] [facility] who was admitted to the inpatient hospitalist service last night after presenting from the [facility] with complaints of increasing swelling in both legs and the right arm for several days. The patient is resting comfortably this morning. He did diurese gently yesterday. He currently has no cardiac complaints. His breathing feels comfortable lying flat at rest. Swelling in both feet and calves is still present. NB: The patient has been accepted by the transplant service at [facility]. At this point we are awaiting [...] Agree with transfer to transplant service at [facility] for further management. Plan Thank you very much for this kind consultation and for allowing me to participate in the care of this very pleasant patient. Time spent with patient Time Spent With Patient (min): 20 Documented By: Bonilla Ortiz MD 06/27/21 1024 Signed By: <Electronically signed by Bonilla Ortiz MD> 06/27/21 1027 [facility] Work Phone: 1(667) 215-323104-07-2022 Progress note Author Yoshi Wu [facility] June 26, 2021 6:27pm Note Date/Time June 26, 2021 6:27 pm [facility] [address] [place] [address] Hospitalist Progress Note Signed Patient: Oliverio Escobedo MR#: [id number] : 1945 Acct:[id number] Age/Sex: 75 / M Adm Date: 2 Loc: Room: [address] [place] [address] Type : ADM INOo Attending Dr: Yoshi [...] Oil 1,000 mg 06/26/21 09:00 06/26/21 09:01 [place]-3/Fish Oil 1,000 Mg Capsule PO 06/26/22 08:59 [...] <Electronically signed by Yoshi Hernandez MD> 06/26/21 779 [facility] Work Phone: 1(346) 915-927004-07-2022 Consult note Author Bonilla Ortiz [facility] June 26, 2021 2:26pm Note Date/Time June 26, 2021 2:23 pm [facility] [address] [place] [address] Cardiology Consult Note Signed Patient: Oliverio Escobedo MR#: [id number] : 1945 Acct:[id number] Age/Sex: 75 / M Adm Date: 2 Loc: Room: [address] [place] [address] Type : ADM INOo Attending Dr: Yoshi Hernandez MD Copies to: MD Manfred Olvera([facility]) DO Bonilla Wilson MD~ Cardiology HPI History of Present Illness Consult Date: 06/26/21 Reason for Consult: Bilateral lower extremity swelling Remote history of orthotopic heart transplantation HPI: Mr. Escobedo is a 75 year old male with known history of orthotopic heart transplantation in [address] [facility] who was admitted to the inpatient hospitalist service last night after presenting from the [facility] with complaints of increasing swelling in both [...] the results were sent to his transplant multiple needle stitcher in [place]. She doesnot know the results. On my evaluation the patient was undergoing bedside transthoracic echocardiography. Preliminary interpretation of the study shows normal resting left ventricular regional wall motion and systolic function. Ejection fraction appears greater than 55%. There is no notable pericardial or pleural effusion. There is no notable/significant valvular heart disease noted. By report the patient's transplant service at [facility] has been contacted and is requested the [...] PO BID 02/02/17 [History Confirmed 06/25/21] omega 2-yxw-ixs-fish oil 1,000 mg (120 mg-180 mg) capsule [...] x10E3/uL Lymph # (Auto) 1.0 (1.00-4.8) x10E3/uL [place] # (Auto) 0.5 (0.0-0.8) x10E3/uL Eos # [...] Agree with transfer to transplant service at [facility] for further management. Code(s): Z94.1 - Heart transplant status Plan Thank you very much for this kind consultation and for allowing me to participate in the care of this very pleasant patient. Documented By: Bonilla Ortiz MD 06/26/21 1415 Signed By: <Electronically signed by Bonilla Ortiz MD> 06/26/21 1426 [facility] Work Phone: 1(900) 336-583004-07-2022 History and physical note Author Omid Myrick [facility] June 26, 2021 7:44am Note Date/Time June 26, 2021 12:1 6am [facility] [address] [place] [address] Hospitalist H&P Signed Patient: Oliverio Escobedo MR#: [id number] : 1945 Acct:[id number] Age/Sex: 75 / M Adm Date: 2 Loc: 3T Room: [address] [place] [address] Type : ADM INOo Attending Dr: Yoshi Hernandez MD Copies to: MD Manfred Olvera([facility]) DO Audra Wilson APRN [...] been trying to schedule an appointment with [facility] multiple needle stitcher but were unable. Patient is hard of [...] PO BID 02/02/17 [History Confirmed 06/25/21] omega 1-mis-uph-fish oil 1,000 mg (120 mg-180 mg) capsule [...] Lymph % (Auto) 12.9 % (.) 06/25/21: [place] % (Auto) 7.3 % (.) 06/25/21: Eos % (Auto) 4.6 % (.) 06/25/21: Baso % (Auto) 0.6 % (.) 06/25/21: Neut # (Auto) 5.6 x10E3/uL (1.8-7.7) 06/25/21: Lymph # (Auto) 1.0 x10E3/uL (1.00-4.8) 06/25/21: [place] # (Auto) 0.5 x10E3/uL (0.0-0.8) 06/25/21: Eos [...] MD Documented By: Audra Quinteros APRN 06/25/21 4567 Signed By: <Electronically signed by GABBIE Quinteros> 06/26/21 0057 <Electronically signed by Omid Myrick MD> 06/26/21 0844 [facility] Work Phone: 1(749) 286-201209-30-2021 Evaluation note* Diagnosis [place] coma scale total score 13-15, at hospital admission- Primary Acute kidney injury (HCC) Acute kidney failure, unspecified Heart replaced by transplant (HCC) Heart replaced by transplant Confusion Unspecified psychosis documented in this encounter [facility] Work Phone: 1(321) 694-490009-30-2021 History of Present illness Narrative* 74 yo [...] trazodone and aripirazole. Discharged back to [facility] with 2x/week home trips. * Immunosuppression: MMF 250 mg BID, tacrolimus 1.5 mg BID (FK 5.4 on 12/24/20, goal 5-8) * Rejection Hx/DSAs: None documented * Last echo: 12/20/20 NW-Mxstjxmcst-STD Heather [address]arsten [address] [place] Work Phone: 1([phone]) 780-191609-28-2021 History of Present illness Narrative* Liliya Baker RN - 12/17/2020 10:31 AM EDT Spoke with nurse from [facility] at this time. They will fax lab work to us from [facility]. documented in this [facility] Work Phone: 1(285) 490-641904-16-2001 History of Present illness Narrative* Mr. Escobedo [...] September 2021. He continues to live in jail. He has started Zoloft for depression. 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 Needs assistance with transfers. He has not had any new doctors appointmetns. * Immunosuppression: MMF 250 mg BID, tacrolimus 1 mg BID (FK 11.0 on 10/10/21, goal 5-8) * Rejection Hx/DSAs: None documented * Last echo: 12/20/20 KV-Wcgdmxhpnc-VPZ Heather [address] Work Phone: Chief complaint Narrative [...] 04:20 PM , for a telehealth visit. SD-Oddrqsqhjx-DBC Heather Vallecillo [address] [place] Work Phone: Evaluation noteNo assessment information available [facility] Work Phone: Evaluation note* Diagnosis Onset Date Resolution Status Acute kidney injury acute Bilateral edema of lower extremity acute Shortness of breath acute [facility] Work Phone: Evaluation note* Diagnosis Onset Date Resolution Status Acute kidney injury acute Bilateral edema of lower extremity acute History of heart transplant acute Shortness of breath acute [facility] Work Phone: Evaluation note* Psychological: Appropriate [...] distress, alert and cooperative, hard of hearing [facility]* Mr. Escobedo [...] trazodone and aripirazole. Discharged back to [facility] with 2x/week home trips. * Immunosuppression: MMF 250 mg BID, tacrolimus 1.5 mg BID (FK 5.4 on 12/24/20, goal 5-8) * Rejection Hx/DSAs: None documented * Last echo: 12/20/20 OD-Krcvaljxid-IPB [employer] [address] [place] Work Phone: History of Present [...] LE edema. Spoke with RN at [facility]; states LE edema has been ongoing for several weeks, with a rash . * Labs drawn 06/24/21; BNP 224 * Immunosuppression: MMF 250 mg BID, tacrolimus 1.5 mg BID (FK 5.4 on 12/24/20, goal 5-8) - FK pendingfrom 06/24/21 from SNF * Rejection Hx/DSAs: None documented * Last echo: 12/20/20 JG-Ufnmletste-MKG [employer] [address] [place] Work Phone: History of Present [...] Hx/DSAs: None documented * Last echo: 12/20/20 CB-Stbzduwjpb-LDS Heather Vallecillo [address] [place] Work Phone: History [...] Hx/DSAs: None documented * Last echo: 12/20/20 FG-Wsuxjuniaj-IMK Heather Vallecillo [address] [place] Work Phone: History [...] Hx/DSAs: None documented * Last echo: 12/20/20 WH-Akeqfxxehv-FFX Heather Vallecillo [address] [place] Work Phone: Reason for referral (narrative)* Reason for Referral: HF, DAVID, scabies [facility] Family History No Family History Records [...] content) Reason Comments Altered Mental Status onset FILTER CHANGING TECHNICIAN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; staff state pt would not respond and stared off into space Hypotension FILTER CHANGING TECHNICIAN staff from [place] r[place] state BP 70s/ANGELICA [...] is suspension with MINIMUM of SIZE 8 MONGOLIAN 1500 (Given - Provider: Sola Dee RN)[id number] [...] Active Yoshi Hernandez MD Attending Provider Active 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 Specialty Start Date End Date Michael Carballo [address] [place] [address] PCP - General Specialist 12/17/20 Goals (unrecognized [...] section and content) DATE CREATED AUTHOR 07/14/2021 [facility] DATE CREATED AUTHOR AUTHOR'S ORGANIZ ATION 04/18/2022 [facility] DATE CREATED AUTHOR AUTHOR'S ORGANIZ ATION 07/17/2022 [employer] DATE CREATED AUTHOR AUTHOR'S ORGANIZ ATION 07/31/2022 [facility] DATE CREATED AUTHOR AUTHOR'S ORGANIZ ATION 09/07/2022 [facility] DATE CREATED AUTHOR AUTHOR'S ORGANIZ ATION 09/14/2022 [facility] DATE CREATED AUTHOR AUTHOR'S ORGANIZ ATION 11/21/2022 [facility] FOR RECORDS PERTAINING TO PATIENTS [...] BE BASED ON THE PRIMARY CLINICAL RECORDS. [employer] provides no warranty or guarantee of the accuracy or completeness of information in this document.
--- OUTSIDE RECORDS SUMMARY | 2023-04-16 06:37 | XMS_ITS | CCD ---
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 Name Role Phone Michael Carballo Unavailable Unavailable Unavailable Michael Carballo Primary Care Provider MD iMchael Carballo Primary Care Provider JIL Davies Attending Provider DO Manfred Wilson [facility] Andrew Hern[facility]dez Emergency Provider MD Omid Myrick Admit Provider MD Omid Myrick Attending Provider [phone] Al MD Yoshi Campoverde Attending Provider [phone] Michael Carballo Unavailable Dionjarret, Pascualaashish Unavailable Palliative [...] sources) Allopurinol; Translations: [allopurinol] Drug Allergy 10-16-2018 [facility] (8 sources) ceFAZolin; Translations: [Cefazolin] Drug Allergy 06-25-2021 Rash, Unknown [facility] Comment on above: extensive fiery red and warm flat rash (1 source) Allopurinol Drug Allergy [facility] (1 source) ceFAZolin Drug Allergy [facility] (1 source) Allopurinol Drug Allergy 06-25-2021 [facility] Medications Current Medications Medication Drug [...] Start: 11-03-2018 take 1 capsule by mo [facility] once daily in the evening dilTIAZem HCl ER Coated Beads 300 MG Oral Capsule Extended Release 24 Hour take 1 capsule every evening Quantity: 0 Refills: 0 Ordered: 04-Jul-2021 Felicia Astorga DO Start : 03-Nov-2018 Active Start: 11-03-2018 take 1 capsule by [facility] once daily dilTIAZem HCl ER Coated Beads 360 MG Oral Capsule Extended Release 24 Hour TAKE 1 CAPSULE Daily Quantity: 30 Refills: 11 Ordered: 03-Nov-2018 Felicia Astorga DO Start : 03-Nov-2018 Active Start: 11-03-2018 take 1 capsule by [facility] once daily dilTIAZem HCl ER Coated Beads 240 MG Oral Capsule Extended Release 24 Hour TAKE 1 CAPSULE Daily Quantity: 90 Refills: 3 Ordered: 24-Dec-2020 Felicia Astorga DO Start : 03-Nov-2018 Active Start: 10-31-2018 take 1 capsule by [facility] every twenty-four hours dilTIAZem [...] mg Start: 10-31-2018 take 1 tablet by [facility] three times daily hydrALAZINE HCl - [...] mg Start: 11-02-2018 take 1 capsule by [facility] every twelve hours Mycophenolate [...] Tamiko Dsouza Status: Discontinued Generic Substitution Allowed [place] 9-Gyu-Exm-Fish Oil (Fish Oil) 1,000 mg (120 mg-180 mg) Capsule (4 sources) Start: 08-05-2017 take 1 tablet by mouth twice daily [place] 4-Pzo-Jhq-Fish Oil (Fish Oil) 1,000 mg (120 mg-180 mg) Capsule Active 1 TAB PO Twice daily August 05, 2017 11:13am Start: 08-05-2017 take 1 tablet by anila th once daily [place] 7-Qix-Yfb-Fish Oil (Fish Oil) 1,000 mg (120 mg-180 mg) Capsule Active 1 TAB PO Daily August 05, 2017 11:13am Start: 08-05-2017 take 1 tablet by anila th twice daily [place] 7-Hgb-Mfl-Fish Oil (Fish Oil) 1,000 mg (120 mg-180 [...] tube 2 times a day only on Yobucb-Ydcezashz-Evfhgx Quantity: 24 Refills: 0 Ordered: 21-Jan-2016 Warren [...] possible liver damage. take 2 tablets by [facility] every six hours as [...] Active Start: 10-15-2021 take 2 tablets by [facility] once daily busPIRone HCl - 10 MG Oral Tablet TAKE 2 TABLET Daily Quantity: 0 Refills: 0 Ordered: 15-Oct-2021 DO Start : 15-Oct-2021 Active take 1 tablet by [facility] twice daily busPIRone (BUSPAR) 15 MG [...] DO Start : 19-Dec-2020 Active vitamin D (EDNISE CALCIFEROL) 25 MCG (1000 UT) TABS tablet [...] Allowed Start: 10-31-2018 take 1 capsule by [facility] every six hours as [...] 1 capsule by mouth twice da padmaja [place]-3 Fatty Acids (FISH OIL) 1000 MG CAPS [...] hours Quantity: 60 Refills: 0 Ordered: 23-Jan-2016 Warern Burr Start: 23-Jan-2016 End: 22-Feb-2016 Status: Other [...] if Blood Glucose is between 251 - 91940 unit(s) if Blood Glucose is between 301 - 32777 unit(s) if Blood Glucose is between 351 [...] if Blood glucose is between 301 - 17978 unit(s) if Blood glucose is between 351 [...] 02-Jul-2021 Generic Substitution Allowed polyethylene glycol 3350 56447 mg powder for oral solution (7 sources) Osmotic Laxative Start: 10-15-2021 MiraLax Mix-I n [place] 17 GM Oral Packet MIX 1 PACKET [...] Quantity: 0 Refills: 0 Ordered: 03-Jul-2021 Jihan tSorm Start: 02-Jul-2021 Generic Substitution Allowed Start: 07-02-2021 take 1 capsule by [facility] every twelve hours Tacrolimus [...] Coma; stupor; and brain damage (1 source) [place] coma scale finding; Translations: [[place] coma scale score 13-15, at hospital admission] [...] Problem Lis t Migration; 2012-10-14; Moved to [facility] Feb 17 2013 9:03PM; Fever of [...] right upper extremity 06-30-2021 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 (1 source) USP current use of insulin 07-02-2021 Past or Other Problems Problem Classification Problem Date Documented Da te Episodic/Chronic Other gastrointestinal disorders (1 source) Dysphagia, unspecified; Translations: [DYSPHAGIA UNSPECIFIED] Onset: 08-08-2021 Episodic 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 (1 source) SWELLING UPPER/LOW EXTREMITIES 06-27-2021 Comment on above: SWELLING UPPER/LOW E XTREMITIES Results Test Name Value Interpretation Reference Range Facility [facility] 09-14-2022 Lab Reports [id number] Normal [facility] VIT D 25-OH LABCORPon 2022 Vitamin D, 25-Hydroxy 29.5 ng/mL Critically low 30.0-100.0 [facility] Comment on above: Result Comment: Jennifer min D deficiency has been defined by the [place] of Medicine and an Endocrine Society practice guideline as a level of serum 25-OH vitamin D less than 20 ng/mL (1,2). The Endocrine Society went on to further define vitamin D insufficiency as a level between 21 and 29 ng/mL (2). 1. IOM ([place] of Medicine). 2010. Dietary reference intakes for calcium and D. [place]: The National Academies Press. 2. Ely MF, Brad NC, Kristy ORTEGA, et al. Evaluation, treatment, and prevention of vitamin D deficiency: an Endocrine Society clinical practice guideline. JCEM. 2010; 96(7):1911-30. Performed By: #### V ITADLC #### [facility] [address] [place] [address] Dr. Ronnie Pennington CBC AUTO DIFFon 07-24-2022 BASO # 0.0 103/ul Normal 0.0-0.1 [facility] Comment on above: Performed By: #### C BC #### [facility] [address] [address] [address] Ronnie Pennington Basophils/100 WBC (Bld) 0.6 % Normal 0.2-2.0 [facility] Comment on above: Performed By: #### C BC #### [facility] [address] [address] [address] Ronnie Pennington EO # 0.1 103/ul Normal 0.0-0.7 [facility] Comment on above: Performed By: #### C BC #### [facility] [address] [address] [address] Ronnie Pennington Eosinophils/100 WBC (Bld) 2.0 % Normal 0.9-7.0 [facility] Comment on above: Performed By: #### C BC #### [facility] [address] [place] [address] Dr. Ronnie Pennington Erythrocyte distribution width (RBC) [Ratio] 13.2 % Normal 11.0-15.0 [facility] Comment on above: Performed By: #### C BC #### [facility] [address] [place] [address] Dr. Ronnie Pennington Hematocrit (Bld) [Volume fraction] 33.3 % Critically low 42.0-54.0 [facility] Comment on above: Performed By: #### C BC #### [facility] [address] [place] [address] Dr. Ronnie Pennington Hemoglobin (Bld) [Mass/Vol] 10.0 g/dL Critically low 14.0-18.0 [facility] Comment on above: Performed By: #### C BC #### [facility] [address] [place] [address] Dr. Ronnie Pennington IG # 0.04 10e3/ul Critically high 0.00-0.03 [facility] Comment on above: Performed By: #### C BC #### [facility] [address] [place] [address] Dr. Ronnie Pennington IG % 0.6 % Critically high 0.0-0.5 [facility] Comment on above: Performed By: #### C BC #### [facility] [address] [place] [address] Dr. Ronnie Pennington LYMPH # 1.2 103/ul Normal 1.2-3.8 [facility] Comment on above: Performed By: #### C BC #### [facility] [address] [place] [address] Dr. Ronnie Pennington Lymphocytes/100 WBC (Bld) 17.9 % Critically low 20.5-60.0 [facility] Comment on above: Performed By: #### C BC #### [facility] [address] [place] [address] Dr. Ronnie Pennington MANUAL DIFF REQ NO Normal [facility] Comment on above: Performed By: #### C BC #### [facility] [address] [place] [address] Dr. Ronnie Pennington MCH (RBC) [Entitic mass] 28.2 pg Normal 25.9-34.0 [facility] Comment on above: Performed By: #### C BC #### [facility] [address] [place] [address] Dr. Ronnie Pennington MCHC (RBC) [Mass/Vol] 30.0 g/dL Normal 29.9-35.2 [facility] Comment on above: Performed By: #### C BC #### [facility] [address] [place] [address] Dr. Ronnie Pennington MCV (RBC) [Entitic vol] 94.1 fL Critically high 80.0-94 .0 [facility] Comment on above: Performed By: #### C BC #### [facility] [address] [place] [address] Dr. Ronnie Pennington MONO # 0.4 103/ul Normal 0.3-0.8 [facility] Comment on above: Performed By: #### C BC #### [facility] [address] [place] [address] Dr. Ronnie Pennington Monocytes/100 WBC (Bld) 6.5 % Normal 1.7-12.0 [facility] Comment on above: Performed By: #### C BC #### [facility] [address] [address] [address] Ronnie Pennington NEUT # 4.8 103/ul Normal 1.4-6.5 [facility] Comment on above: Performed By: #### C BC #### [facility] [address] [place] [address] Dr. Ronnie Pennington Neutrophils/100 WBC (Bld) 72.4 % Normal 43.0-75.0 [facility] Comment on above: Performed By: #### C BC #### [facility] [address] [place] [address] Dr. Ronnie Pennington Platelet mean volume (Bld) [Entitic vol] 11.7 fL Normal 9.5-13.5 [facility] Comment on above: Performed By: #### C BC #### [facility] [address] [place] [address] Dr. Ronnie Pennington PLT 137 103/ul Critically low 150-450 [facility] Comment on above: Performed By: #### C BC #### [facility] [address] [place] [address] Dr. Ronnie Pennington RBC 3.54 106/ul Critically low 4.70-6.10 [facility] Comment on above: Performed By: #### C BC #### [facility] [address] [place] [address] Dr. Ronnie Pennington WBC 6.6 103/ul Normal 4.0-11.0 [facility] Comment on above: Performed By: #### C BC #### [facility] [address] [place] [address] Dr. Ronnie Pennington GLYCOHEMOGLOBIN A1Con 2022 ADA RECOMMENDATION SEE BELOW Normal [facility] Comment on above: Result Comment: ADA RECOMMENDED LIMIT 4.0 - 6.0 ADA THERAPEUTIC TARGET < 7.0 ACTION SUGGESTED > 7.0 Performed By: #### A 1C #### [facility] [address] [place] [address] Dr. Ronnie Pennington Glucose [Mass/Vol] 171 mg/dL Normal [facility] Comment on above: Performed By: #### A 1C #### [facility] [address] [address] [address] Ronnie Pennington HbA1c (Bld) [Mass fraction] 7.6 % Critically high 4.5-6.2 [facility] Comment on above: Performed By: #### A 1C #### [facility] [address] [address] [address] Ronnie Pennington MAGNESIUMon 07-24-2022 Magnesium [Mass/Vol] 2.3 mg/dL Normal 1.8-2.4 [facility] Comment on above: Performed By: #### M Mere, TSH, CMP ####[facility] [address] [address]Dr. Ronnie Pennington PROF 14(COMP METB)on 023 Albumin [Mass/Vol] 2.8 g/dL Critically low 3.4-5.0 [facility] Comment on above: Performed By: #### Joaquin Severino TSH, CMP ####[facility] [address] [address]DrFreddy Pennington Albumin/Globulin [Mass ratio] 0.7 {ratio} Normal [facility] Comment on above: Performed By: #### Joaquin Severino TSH, CMP ####[facility] [address] [address]DrFreddy Pennington ALP [Catalytic activity/Vol] 69 U/L Normal 46-116 [facility] Comment on above: Performed By: #### M Mere TSH, CMP ####[facility] [address] [address]DrFreddy Pennington ALT [Catalytic activity/Vol] 8 U/L Critically low 16-63 [facility] Comment on above: Performed By: #### Joaquin Severino TSH, CMP ####[facility] [address] [address]DrFreddy Pennington Anion gap [Moles/Vol] 9.9 mmol/L Normal [facility] Comment on above: Performed By: #### M G TSH, CMP ####[facility] [address] [address]DrFreddy Pennington AST [Catalytic activity/Vol] 9 U/L Critically low 15-37 [facility] Comment on above: Performed By: #### M Mere TSH, CMP ####[facility] [address] [place], [place] [address]Dr. Ronnie Pennington Bilirubin [Mass/Vol] 0.2 mg/dL Normal 0.2-1.0 [facility] Comment on above: Performed By: #### Joaquin Severino TSH, CMP ####[facility] [address] [place], [place] [address]Dr. Ronnie Pennington Calcium [Mass/Vol] 8.9 mg/dL Normal 8.5-10.1 [facility] Comment on above: Performed By: #### Joaquin Severino TSH, CMP ####[facility] [address] [place], [place] [address]Dr. Ronnie Pennington Chloride [Moles/Vol] 104 mmol/L Normal 98-107 [facility] Comment on above: Performed By: #### Joaquin Severino TSH, CMP ####[facility] [address] [place], [place] [address]Dr. Ronnie Pennington CO2 [Moles/Vol] 28.4 mmol/L Normal 21.0-32.0 [facility] Comment on above: Performed By: #### Joaquin Severino TSH, CMP ####[facility] [address] [place], [place] [address]Dr. Ronnie Pennington Creatinine [Mass/Vol] 2.09 mg/dL Critically high 0.70-1.30 [facility] Comment on above: Performed By: #### Joaquin Severino, TSH, CMP ####[facility] [address] [place], [place] [address]Dr. Salomelenny Pennington EGFR-AF THAI 37 mL/min/1.73m2 Critically low >=60 [facility] Comment on above: Performed By: #### Joaquin Severino, TSH, CMP ####[facility] [address] [place], [place] [address]Dr. Ronnie Pennington EGFR-NON AF THAI 31 mL/min/1.73m2 Critically low >=60 [facility] Comment on above: Performed By: #### M G, TSH, CMP ####[facility] [address] [address]Dr. Ronnie Pennington Globulin (S) [Mass/Vol] 3.9 g/dL Normal [facility] Comment on above: Performed By: #### M G, TSH, CMP ####[facility] [address] [address]Dr. Ronnie Pennington Glucose [Mass/Vol] 165 mg/dL Critically high 74-106 [facility] Comment on above: Performed By: #### M G, TSH, CMP ####[facility] [address] [place], [place] [address]Dr. Ronnie Pennington Potassium [Moles/Vol] 4.3 mmol/L Normal 3.5-5.1 [facility] Comment on above: Performed By: #### M G, TSH, CMP ####[facility] [address] [place], [place] [address]Dr. Ronnie Pennington Protein [Mass/Vol] 6.7 g/dL Normal 6.4-8.2 [facility] Comment on above: Performed By: #### M G, TSH, CMP ####[facility] [address] [place], [place] [address]Dr. Ronnie Pennington Sodium [Moles/Vol] 138 mmol/L Normal 136-145 [facility] Comment on above: Performed By: #### M G, TSH, CMP ####[facility] [address] [place], [place] [address]Dr. Ronnie Pennington Urea nitrogen [Mass/Vol] 33.0 mg/dL Critically high 7.0-18.0 [facility] Comment on above: Performed By: #### M G, TSH, CMP ####[facility] [address] [place], [place] [address]Dr. Ronnie Pennington Urea nitrogen/Creatinine [Mass ratio] 15.8 mg/mg Normal [facility] Comment on above: Performed By: #### M G, TSH, CMP ####[facility] [address] [place], [place] [address]Dr. Ronnie Pennington TSHon 07-24-2022 TSH 2.763 uIU/mL Normal 0.358-3.74 0 [facility] Comment on above: Performed By: #### M G, TSH, CMP ####[facility] [address] [address]Dr. Ronnie Pennington FK506 (TACROLIMUS) WHOLE BLO ODon 07-15-2022 Tacrolimus (FK506), Blood 9.4 ng/mL Normal 2.0-20.0 [facility] Comment on above: Result Comment: Trou gh (immediately following transplant) 15.0 . Trough (steady state, 2 weeks or more after transplant): 3.0 - 8.0 . Performed by LC-MS/MS technology. Performed By: #### F [id number] #### [facility] [address] [place] [address] Dr. Ronine Pennington CBC AUTO DIFFon 07-13-2022 BASO # 0.0 103/ul Normal 0.0-0.1 [facility] Comment on above: Performed By: #### C BC #### [facility] [address] [place] [address] Dr. Ronnie Pennington Basophils/100 WBC (Bld) 0.3 % Normal 0.2-2.0 [facility] Comment on above: Performed By: #### C BC #### [facility] [address] [place] [address] Dr. Ronnie Pennington EO # 0.2 103/ul Normal 0.0-0.7 [facility] Comment on above: Performed By: #### C BC #### [facility] [address] [place] [address] Dr. Ronnie Pennington Eosinophils/100 WBC (Bld) 2.5 % Normal 0.9-7.0 [facility] Comment on above: Performed By: #### C BC #### [facility] [address] [place] [address] Dr. Ronnie Pennington Erythrocyte distribution width (RBC) [Ratio] 13.1 % Normal 11.0-15.0 [facility] Comment on above: Performed By: #### C BC #### [facility] [address] [place] [address] Dr. Ronnie Pennington Hematocrit (Bld) [Volume fraction] 33.4 % Critically low 42.0-54.0 [facility] Comment on above: Performed By: #### C BC #### [facility] [address] [place] [address] Dr. Ronnie Pennington Hemoglobin (Bld) [Mass/Vol] 10.4 g/dL Critically low 14.0-18.0 [facility] Comment on above: Performed By: #### C BC #### [facility] [address] [place] [address] Dr. Ronnie Pennington IG # 0.04 10e3/ul Critically high 0.00-0.03 [facility] Comment on above: Performed By: #### C BC #### [facility] [address] [place] [address] Dr. Ronnie Pennington IG % 0.6 % Critically high 0.0-0.5 [facility] Comment on above: Performed By: #### C BC #### [facility] [address] [place] [address] Dr. Ronnie Pennington LYMPH # 1.2 103/ul Normal 1.2-3.8 [facility] Comment on above: Performed By: #### C BC #### [facility] [address] [place] [address] Dr. Ronnie Pennington Lymphocytes/100 WBC (Bld) 16.8 % Critically low 20.5-60.0 [facility] Comment on above: Performed By: #### C BC #### [facility] [address] [place] [address] Dr. Ronnie Pennington MANUAL DIFF REQ NO Normal [facility] Comment on above: Performed By: #### C BC #### [facility] [address] [place] [address] Dr. Ronnie Pennington MCH (RBC) [Entitic mass] 28.5 pg Normal 25.9-34.0 [facility] Comment on above: Performed By: #### C BC #### [facility] [address] [place] [address] Dr. Ronnie Pennington MCHC (RBC) [Mass/Vol] 31.1 g/dL Normal 29.9-35.2 [facility] Comment on above: Performed By: #### C BC #### [facility] [address] [place] [address] Dr. Ronnie Pennington MCV (RBC) [Entitic vol] 91.5 fL Normal 80.0-94.0 [facility] Comment on above: Performed By: #### C BC #### [facility] [address] [place] [address] Dr. Ronnie Pennington MONO # 0.5 103/ul Normal 0.3-0.8 [facility] Comment on above: Performed By: #### C BC #### [facility] [address] [place] [address] Dr. Ronnie Pennington Monocytes/100 WBC (Bld) 7.5 % Normal 1.7-12.0 [facility] Comment on above: Performed By: #### C BC #### [facility] [address] [place] [address] Dr. Ronnie Pennington NEUT # 5.0 103/ul Normal 1.4-6.5 [facility] Comment on above: Performed By: #### C BC #### [facility] [address] [place] [address] Dr. Ronnie Pennington Neutrophils/100 WBC (Bld) 72.3 % Normal 43.0-75.0 [facility] Comment on above: Performed By: #### C BC #### [facility] [address] [place] [address] Dr. Ronnie Pennington Platelet mean volume (Bld) [Entitic vol] 11.8 fL Normal 9.5-13.5 [facility] Comment on above: Performed By: #### C BC #### [facility] [address] [place] [address] Dr. Ronnie Pennington PLT 126 103/ul Critically low 150-450 [facility] Comment on above: Performed By: #### C BC #### [facility] [address] [place] [address] Dr. Ronnie Pennington RBC 3.65 106/ul Critically low 4.70-6.10 [facility] Comment on above: Performed By: #### C BC #### [facility] [address] [address] [address] Ronnie Pennington WBC 6.9 103/ul Normal 4.0-11.0 [facility] Comment on above: Performed By: #### C BC #### [facility] [address] [address] [address] Ronnie Pennington MAGNESIUMon 07-13-2022 Magnesium [Mass/Vol] 2.1 mg/dL Normal 1.8-2.4 [facility] Comment on above: Performed By: #### C MP, MG #### [facility] [address] [place] [address] Dr. Ronnie Pennington Office Visit (Cardiology)on 07-13-2022 Follow-up visit Patient Instructions -Please bring a list of your medications to every appointment. -We will schedule you a follow up appointment in # months. We will call you with this date. -If you have any questions, please do not hesitate to contact our office at [phone]. For after hours issues, please call [phone]. Chief Complaint OLIVERIO ESCOBEDO is being seen [...] September 2021. [place] He has started Zoloft for depression. He [...] TabletTake 1 tablet twice daily MiraLax Mix-In [place] 17 GM Oral PacketMIX 1 PACKET in [...] [Mass/Vol] 2.9 g/dL Critically low 3.4-5.0 [facility] Comment on above: Performed By: #### C MP, MG #### [facility] [address] [place] [address] Dr. Ronnie Pennington Albumin/Globulin [Mass ratio] 0.7 {ratio} Normal [facility] Comment on above: Performed By: #### C MP, MG #### [facility] [address] [address] [address] Ronnie Pennington ALP [Catalytic activity/Vol] 71 U/L Normal 46-116 [facility] Comment on above: Performed By: #### C MP, MG #### [facility] [address] [place] [address] Dr. Ronnie Pennington ALT [Catalytic activity/Vol] 12 U/L Critically low 16-63 [facility] Comment on above: Performed By: #### C MP, MG #### [facility] [address] [address] [address] Ronnie [place] Anion gap [Moles/Vol] 15.1 mmol/L Normal [facility] Comment on above: Performed By: #### C MP, MG #### [facility] [address] [place] [address] Dr. Ronnie Pennington AST [Catalytic activity/Vol] 11 U/L Critically low 15-37 [facility] Comment on above: Performed By: #### C MP, MG #### [facility] [address] [place] [address] Dr. Ronnie Pennington Bilirubin [Mass/Vol] 0.2 mg/dL Normal 0.2-1.0 [facility] Comment on above: Performed By: #### C MP, MG #### [facility] [address] [place] [address] Dr. Ronnie Pennington Calcium [Mass/Vol] 9.2 mg/dL Normal 8.5-10.1 [facility] Comment on above: Performed By: #### C MP, MG #### [facility] [address] [place] [address] Dr. Ronnie Pennington Chloride [Moles/Vol] 105 mmol/L Normal 98-107 [facility] Comment on above: Performed By: #### C MP, MG #### [facility] [address] [place] [address] Dr. Ronnie Pennington CO2 [Moles/Vol] 28.1 mmol/L Normal 21.0-32.0 [facility] Comment on above: Performed By: #### C MP, MG #### [facility] [address] [place] [address] Dr. Ronnie Pennington Creatinine [Mass/Vol] 2.14 mg/dL Critically high 0.70-1.30 [facility] Comment on above: Performed By: #### C MP, MG #### [facility] [address] [place] [address] Dr. Ronnie Pennington EGFR-AF THAI 36 mL/min/1.73m2 Critically low >=60 [facility] Comment on above: Performed By: #### C MP, MG #### [facility] [address] [place] [address] Dr. Ronnie Pennington EGFR-NON AF THAI 30 mL/min/1.73m2 Critically low >=60 [facility] Comment on above: Performed By: #### C MP, MG #### [facility] [address] [place] [address] Dr. Ronnie Pennington Globulin (S) [Mass/Vol] 4.0 g/dL Normal [facility] Comment on above: Performed By: #### C MP, MG #### [facility] [address] [place] [address] Dr. Ronnie Pennington Glucose [Mass/Vol] 150 mg/dL Critically high 74-106 [facility] Comment on above: Performed By: #### C MP, MG #### [facility] [address] [place] [address] Dr. Ronnie Pennington Potassium [Moles/Vol] 4.2 mmol/L Normal 3.5-5.1 [facility] Comment on above: Performed By: #### C MP, MG #### [facility] [address] [address] [address] Ronnie Pennington Protein [Mass/Vol] 6.9 g/dL Normal 6.4-8.2 [facility] Comment on above: Performed By: #### C MP, MG #### [facility] [address] [address] [address] Ronnie Pennington Sodium [Moles/Vol] 144 mmol/L Normal 136-145 [facility] Comment on above: Performed By: #### C MP, MG #### [facility] [address] [address] [address] Ronnie Pennington Urea nitrogen [Mass/Vol] 32.0 mg/dL Critically high 7.0-18.0 [facility] Comment on above: Performed By: #### C MP, MG #### [facility] [address] [address] [address] Ronnie Pennington Urea nitrogen/Creatinine [Mass ratio] 15.0 mg/mg Normal [facility] Comment on above: Performed By: #### C MP, MG #### [facility] [address] [address] [address] Ronnie ePnnington Transplant SW Assessment Upd ateon 07-13-2022 Transplant [...] Jul 15 2022 12:57PM EST (Author) Normal [employer] Consultation Noteon 06-10-19 Consultation Note [id number] Normal [facility] TSHon 06-05-2022 TSH 3.293 uIU/mL Normal 0.358-3.74 0 [facility] Comment on above: Performed By: #### T SH #### [facility] [address] [address] [address] Ronnie Pennington Cult,[place]ound[place] 04-19-2022 Cult,Wound Specimen [...] Tetracycline <=1 SUSCEPTIBLE Trimethoprim/Sulfa <=10 SUSCEPTIBLE Susceptible [facility] Comment on above: Performed By: #### W DC #### [id number] [place] [address] Television Station Manager: David Gonzalez MD PROF CHEM 8 ([facility])on Anion gap [Moles/Vol] 14.9 mmol/L Normal [facility] Comment on above: Performed By: #### B MP #### [facility] [address] [place] [address] Dr. Ronnie Pennington Calcium [Mass/Vol] 8.8 mg/dL Normal 8.5-10.1 [facility] Comment on above: Performed By: #### B MP #### [facility] [address] [place] [address] Dr. Ronnie Pennington Chloride [Moles/Vol] 104 mmol/L Normal 98-107 [facility] Comment on above: Performed By: #### B MP #### [facility] [address] [place] [address] Dr. Ronnie Pennington CO2 [Moles/Vol] 26.6 mmol/L Normal 21.0-32.0 [facility] Comment on above: Performed By: #### B MP #### [facility] [address] [address] [address] Ronnie Pennington Creatinine [Mass/Vol] 2.03 mg/dL Critically high 0.70-1.30 [facility] Comment on above: Performed By: #### B MP #### [facility] [address] [address] [address] Ronnie Pennington EGFR-AF THAI 39 mL/min/1.73m2 Critically low >=60 [facility] Comment on above: Performed By: #### B MP #### [facility] [address] [address] [address] Ronnie Pennington EGFR-NON AF THAI 32 mL/min/1.73m2 Critically low >=60 [facility] Comment on above: Performed By: #### B MP #### [facility] [address] [address] [address] Ronnie Pennington Glucose [Mass/Vol] 209 mg/dL Critically high 74-106 [facility] Comment on above: Performed By: #### B MP #### [facility] [address] [address] [address] Ronnie Pennington Potassium [Moles/Vol] 4.5 mmol/L Normal 3.5-5.1 [facility] Comment on above: Performed By: #### B MP #### [facility] [address] [address] [address] Ronnie Pennington Sodium [Moles/Vol] 141 mmol/L Normal 136-145 [facility] Comment on above: Performed By: #### B MP #### [facility] [address] [address] [address] Ronnie Pennington Urea nitrogen [Mass/Vol] 26.0 mg/dL Critically high 7.0-18.0 [facility] Comment on above: Performed By: #### B MP #### [facility] [address] [address] [address] Ronnie Pennington Urea nitrogen/Creatinine [Mass ratio] 12.8 mg/mg Normal [facility] Comment on above: Performed By: #### B #### [facility] [address] [place], [place] [address] Dr. Ronnie Pennington Office Visit (Cardiology)on 10-15-2021 [...] last office visit; documented BPs at the [facility] 120-130s/70-80s. Benadryl 25 mg q6h [...] Oral TabletTak (more content not included)... Normal [email or web address] XR MODIFIED BARIUM SWALLOWon 08-05-2021 XR MODIFIED [...] JARON NESS Date: 2021-08-05 15:10 Normal [facility] CBC AND DIFFERENTIALon 07-13 % AUTOMATED IMMATURE GRAN 0.5 % Normal 0.0 - 0.9 [facility] Comment on above: Result Comment: Christal ture Granulocyte Count (IG) includes promyelocytes, myelocytes and metamyelocytes but does not include bands. Percent differential counts (%) should be interpreted in the context of the absolute cell counts (cells/L). Performed By: #### C BCDF #### [address] [address] Basophils (Bld) [#/Vol] 0.02 10*3/uL Normal 0.00 - 0.10 [facility] Comment on above: Performed By: #### C BCDF #### [address] [address] Basophils/100 WBC (Bld) 0.3 % Normal 0.0 - 2.0 [facility] Comment on above: Performed By: #### C BCDF #### [address] [address] Eosinophils (Bld) [#/Vol] 0.07 10*3/uL Normal 0.00 - 0.40 [facility] Comment on above: Performed By: #### C BCDF #### [address] [address] Eosinophils/100 WBC (Bld) 0.9 % Normal 0.0 - 6.0 [facility] Comment on above: Performed By: #### C BCDF #### [address] [address] Erythrocyte distribution width (RBC) [Ratio] 14.4 % Normal 11.5 - 14.5 [facility] Comment on above: Performed By: #### C BCDF #### [address] [place] [address] Hematocrit (Bld) [Volume fraction] 35.5 % Low 41.0 - 52.0 [facility] Comment on above: Performed By: #### C BCDF #### [address] [place] [address] Hemoglobin (Bld) [Mass/Vol] 10.8 g/dL Low 13.5 - 17.5 [facility] Comment on above: Performed By: #### C BCDF #### [address] [place] [address] Lymphocytes (Bld) [#/Vol] 0.42 10*3/uL Low 0.80 - 3.00 [facility] Comment on above: Performed By: #### C BCDF #### [address] [place] [address] Lymphocytes/100 WBC (Bld) 5.6 % Normal 13.0 - 44.0 [facility] Comment on above: Performed By: #### C BCDF #### [address] [place] [address] MCHC (RBC) [Mass/Vol] 30.4 g/dL Low 32.0 - 36.0 [facility] Comment on above: Performed By: #### C BCDF #### [address] [address] MCV (RBC) [Entitic vol] 89 fL Normal 80 - 100 [facility] Comment on above: Performed By: #### C BCDF #### [address] [address] Monocytes (Bld) [#/Vol] 0.07 10*3/uL Normal 0.05 - 0.80 [facility] Comment on above: Performed By: #### C BCDF #### [address] [address] Monocytes/100 WBC (Bld) 0.9 % Normal 2.0 - 10.0 [facility] Comment on above: Performed By: #### C BCDF #### [address] [address] Neutrophils (Bld) [#/Vol] 6.82 10*3/uL High 1.60 - 5.50 [facility] Comment on above: Performed By: #### C BCDF #### [address] [address] Neutrophils/100 WBC (Bld) 91.8 % Normal 40.0 - 80.0 [facility] Comment on above: Performed By: #### C BCDF #### [address] [address] NUCLEATED RBC 0.0 /100 WBC Normal 0.0 - 0.0 [facility] Comment on above: Performed By: #### C BCDF #### [address] [address] Platelets (Bld) [#/Vol] 161 10*3/uL Normal 150 - 450 [facility] Comment on above: Performed By: #### C BCDF #### [address] [address] RBC 3.98 x10E12/L Low 4.50 - 5.90 [facility] Comment on above: Performed By: #### C BCDF #### [address] [address] WBC (Bld) [#/Vol] 7.4 10*3/uL Normal 4.4 - 11.3 [facility] Comment on above: Performed By: #### C BCDF #### [address] [address] Complete Blood Count + Diffe rentialon 07-13-2021 Basophils/100 WBC (Bld) 0.3 % 0.0 - 2.0 [facility] [employer] [employer] [address] [place] Work Phone: Erythrocyte distribution width (RBC) [Ratio] 14.4 % See Below [facility] [address] [place] Work Phone: Comment on above: Reference Range: 11. 5 - 14.5 Hematocrit (Bld) [Volume fraction] 35.5 % below low threshold See Below [facility] [address] [place] Work Phone: Comment on [...] 161 10*3/uL 150 - 450 [facility] [address] [place] Work Phone: RBC (Bld) [#/Vol] 3.98 {x10E12/L} below low threshold See Below [facility] [address] [place] Work Phone: Comment on above: Reference Range: 4.5 0 - 5.90 WBC (Bld) [#/Vol] 7.4 10*3/uL 4.4 - 11.3 [facility] [employer] [facility] [address] [place] Work Phone: Complete Blood Count + Differential 0.02 {x10E9/L} See Below [facility] [address] [place] Work Phone: Comment on above: Reference Range: 0.0 0 - 0.10 Complete Blood Count + Differential 0.07 {x10E9/L} See Below [facility] [address] [place] Work Phone: Comment on above: Reference Range: 0.0 0 - 0.40 Reference Range: 0.0 5 - 0.80 Complete Blood Count + Differential 0.42 {x10E9/L} below low threshold See Below [facility] [address] [place] Work Phone: Comment on above: Reference Range: 0.8 0 - 3.00 Complete Blood Count + Differential 6.82 {x10E9/L} above high threshold See Below [facility] [address] [place] Work Phone: Comment on above: Reference Range: 1.6 0 - 5.50 Complete Blood Count + Differential 0.9 % 0.0 - 6.0 [facility] [employer] [address] [place] Work Phone: Complete Blood Count + Differential 0.5 % 0.0 - 0.9 [facility] [address] [place] Work Phone: Comment on above: Immature Granulocyte Count (IG) includes promyelocytes, myelocytes and metamyelocytes but does not include bands. Percent differential counts (%) should be interpreted in the context of the absolute cell counts (cells/L). Complete Blood Count + Differential 0.0 {/100_WBC} 0.0 - 0.0 [facility] [address] [place] Work Phone: Coronavirus 2019 RNA by PCR, Symptomaticon 07-03-2021 Date and time of symptom onset [id number] [facility] [address] [place] Work Phone: Coronavirus 2019 RNA by PCR, Symptomatic Not detected Normal See Below [facility] [address] [place] Work Phone: Comment on above: SOURCE: Nasal, Nasop haryngealReference Range: Not Detected.This test has received FDA Emergency Use Authorization (EUA) and has been verified by [facility] ([facility]). This test is only authorized for the duration of time that circumstances exist to justify the authorization of the emergency use of in vitro diagnostic tests for the detection of SARS-CoV-2 virus and/or diagnosis of COVID-19 infection under section 564(b)(1) of the Act, 21 U.S.C. 360bbb-3(b)(1), unless the authorization is terminated or revoked sooner. [facility] is certified under CLIA-88 as qualified to perform high complexity testing. Testing is performed in the [facility] located at [address] [place] [address].SARS-CoV-2/Flu/RSV Multiplex Test: Fact sheet for providers: https://www.fda.gov/media/167828/downloadFact sheet for patients: https://www.fda.gov/media/313845/download Laboratory - Chemistry and C hemistry - challengeon 07-03-2021 Glucose [Mass/Vol] 330 mg/dL above high threshold 74 - 99 [facility] [address] [place] Work Phone: Glucose [Mass/Vol] [...] mmol/L 21 - 32 [facility] [address] [place] Work Phone: Creatinine [Mass/Vol] 1.80 mg/dL above high threshold See Below [facility] [address] [place] Work Phone: Comment on above: Reference Range: 0.5 0 - 1.30 Glucose [Mass/Vol] 246 mg/dL above high threshold 74 - 99 [facility] [address] [place] Work Phone: Potassium [Moles/Vol] 3.9 mmol/L 3.5 - 5.3 [facility] [address] [place] Work Phone: [phone] Sodium [Moles/Vol] 138 mmol/L 136 - 145 [facility] [address] [place] Work Phone: Urea nitrogen [...] below low threshold See Below [facility] [address] [place] Work Phone: Comment on above: Reference Range: 41. 0 - 52.0 Hemoglobin (Bld) [Mass/Vol] 10.8 g/dL below low threshold See Below [facility] [address] [place] Work Phone: Comment on above: Reference Range: 13. 5 - 17.5 MCHC (RBC) [Mass/Vol] 30.8 g/dL below low threshold See Below [facility] [address] [place] Work Phone: Comment on above: Reference Range: 32. 0 - 36.0 MCV (RBC) [Entitic vol] 89 fL 80 - 100 [facility] [address] [place] Work Phone: Platelets (Bld) [#/Vol] 171 10*3/uL 150 - 450 [facility] [address] [place] Work Phone: RBC (Bld) [#/Vol] 3.94 {x10E12/L} below low threshold See Below [facility] [address] [place] Work Phone: Comment on above: Reference Range: 4.5 0 - 5.90 WBC (Bld) [#/Vol] 6.0 10*3/uL 4.4 - 11.3 [facility] [address] [place] Work Phone: No Panel Informationon 07-03 38 {mL/min/1.73m2} Abnormal >90 [facility] [address] [place] Work Phone: Comment on above: CALCULATIONS OF ERNST MATED GFR ARE PERFORMED USING THE 2020 CKD-EPI STUDY REFIT EQUATION WITHOUT THE RACE VARIABLE FOR THE IDMS-TRACEABLE CREATININE METHODS.https://jasn.asnjournals.org/content/early// ASN.1421719098 0.0 {/100_WBC} 0.0-0.0 [facility] [address] [place] Work Phone: Tacrolimuson 07-03-2021 Tacrolimus (Bld) [Mass/Vol] 5.5 ng/mL 2.0 - 15.0 [facility] [address] [place] Work Phone: Comment on above: NOTE: Result was obt ained using a chemiluminescent microparticle immunoassay (CMIA) on the [employer] i system.Optimal therapeutic ranges for immuno-suppressant drugs [...] high threshold 74 - 99 [facility] [address] [place] Work Phone: [phone] Glucose [Mass/Vol] 286 mg/dL above high threshold 74 - 99 [facility] [address] [place] Work Phone: [phone] Glucose [Mass/Vol] 269 mg/dL above high threshold 74 - 99 [facility] [address] [place] Work Phone: [phone] Anion gap [Moles/Vol] 15 mmol/L 10 - 20 [facility] [address] [place] Work Phone: [phone] Calcium [Mass/Vol] 9.1 mg/dL 8.6 - 10.6 [facility] [address] [place] Work Phone: [phone] Chloride [Moles/Vol] 102 mmol/L 98 - 107 [facility] [address] [place] Work Phone: [phone] CO2 [Moles/Vol] 27 mmol/L 21 - 32 [facility] [address] [place] Work Phone: [phone] Creatinine [Mass/Vol] 1.97 mg/dL above high threshold See Below [facility] [address] [place] Work Phone: [phone] Comment on above: Reference Range: 0.5 0 - 1.30 Glucose [Mass/Vol] 197 mg/dL above high threshold 74 - 99 [facility] [address] [place] Work Phone: Potassium [Moles/Vol] 4.1 mmol/L 3.5 - 5.3 [facility] [address] [place] Work Phone: Sodium [Moles/Vol] 140 mmol/L 136 - 145 [facility] [address] [place] Work Phone: Urea nitrogen [Mass/Vol] 41 mg/dL above high threshold 6 - 23 [facility] [address] [place] Work Phone: Glucose [Mass/Vol] 201 mg/dL above high threshold 74 - 99 [facility] [address] [place] Work Phone: Laboratory - Hematology and Cell countson 07-02-2021 Erythrocyte distribution width (RBC) [Ratio] 14.1 % See Below [facility] [address] [place] Work Phone: Comment on above: Reference Range: 11. 5 - 14.5 Hematocrit (Bld) [Volume fraction] 33.6 % below low threshold See Below [facility] [address] [place] Work Phone: Comment on [...] 160 10*3/uL 150 - 450 [facility] [address] [place] Work Phone: RBC (Bld) [...] RACE VARIABLE FOR THE IDMS-TRACEABLE CREATININE METHODS.https://jasn.asnjournals.org/content/// ASN.5451220021 0.0 {/100_WBC} 0.0-0.0 [facility] [address] [place] Work Phone: Tacrolimuson 07-02-2021 Tacrolimus (Bld) [Mass/Vol] 7.6 ng/mL 2.0 - 15.0 [facility] [address] [place] Work Phone: Comment on above: NOTE: Result was obt ained using a chemiluminescent microparticle immunoassay (CMIA) on the [employer] i system.Optimal therapeutic ranges for immuno-suppressant drugs depend upon an individualpatient's current clinical state, type oforgan transplant, time post-transplant,co-administration of other immunosuppressants,and other clinical factors. The results ofthis test should be correlated with additionalclinical and laboratory data before changesin treatment regimens are made. Hemoglobin A1Con 07-01-2021 Glucose [Mass/Vol] 194 mg/dL [facility] [address] [place] Work Phone: HbA1c (Bld) [...] 13-18 <7.5 7-12 <8.0 0- 6 7.5-8.5 [place] [employer]. Diabetes Care 33(S1), Mar 2009. Laboratory - Chemistry and C hemistry - challengeon 07-01-2021 Glucose [Mass/Vol] 188 mg/dL above high threshold 74 - 99 [facility] [address] [place] Work Phone: Glucose [Mass/Vol] [...] mmol/L 21 - 32 [facility] [address] [place] Work Phone: Creatinine [Mass/Vol] 1.99 mg/dL above high threshold See Below [facility] [address] [place] Work Phone: Comment on above: Reference Range: 0.5 0 - 1.30 Glucose [Mass/Vol] 227 mg/dL above high threshold 74 - 99 [facility] [address] [place] Work Phone: Glucose [Mass/Vol] 243 mg/dL above high threshold 74 - 99 [facility] [address] [place] Work Phone: Potassium [Moles/Vol] 4.0 mmol/L 3.5 - 5.3 [facility] [address] [place] Work Phone: Sodium [Moles/Vol] 141 mmol/L 136 - 145 [facility] [address] [place] Work Phone: Urea nitrogen [Mass/Vol] 38 mg/dL above high threshold 6 - 23 [facility] [address] [place] Work Phone: Laboratory - [...] below low threshold See Below [facility] [address] [place] Work Phone: Comment on above: Reference Range: 32. 0 - 36.0 MCV (RBC) [Entitic vol] 90 fL 80 - 100 [facility] [address] [place] Work Phone: Platelets (Bld) [#/Vol] 157 10*3/uL 150 - 450 [facility] [address] [place] Work Phone: RBC (Bld) [#/Vol] 3.83 {x10E12/L} below low threshold See Below [facility] [address] [place] Work Phone: Comment on above: Reference Range: 4.5 0 - 5.90 WBC (Bld) [#/Vol] 6.8 10*3/uL 4.4 - 11.3 [facility] [address] [place] Work Phone: No Panel Informationon 07-01 34 {mL/min/1.73m2} Abnormal >90 [facility] [address] [place] Work Phone: Comment on above: CALCULATIONS OF ERNST MATED GFR ARE PERFORMED USING THE 2020 CKD-EPI STUDY REFIT EQUATION WITHOUT THE RACE VARIABLE FOR THE IDMS-TRACEABLE CREATININE METHODS.https://jasn.asnjournals.org/content// ASN.2535365480 0.0 {/100_WBC} 0.0-0.0 [facility] [address] [place] Work Phone: Tacrolimuson 07-01-2021 Tacrolimus (Bld) [Mass/Vol] 9.3 ng/mL 2.0 - 15.0 [facility] [address] [place] Work Phone: Comment on above: NOTE: Result was obt ained using a chemiluminescent microparticle immunoassay (CMIA) on the [employer] i system.Optimal therapeutic ranges for immuno-suppressant drugs [...] high threshold 74 - 99 [facility] [address] [place] Work Phone: [phone] Glucose [Mass/Vol] 236 mg/dL above high threshold 74 - 99 [facility] [address] [place] Work Phone: [phone] Anion gap [Moles/Vol] 17 mmol/L 10 - 20 [facility] [address] [place] Work Phone: [phone] Calcium [Mass/Vol] 8.6 mg/dL 8.6 - 10.6 [facility] [address] [place] Work Phone: [phone] Chloride [Moles/Vol] 100 mmol/L 98 - 107 [facility] [facility] [address] [place] Work Phone: [phone] CO2 [Moles/Vol] 28 mmol/L 21 - 32 [facility] [address] [place] Work Phone: [phone] Creatinine [Mass/Vol] 2.26 mg/dL above high threshold See Below [facility] [address] [place] Work Phone: [phone] Comment on above: Reference Range: 0.5 0 - 1.30 Glucose [Mass/Vol] 205 mg/dL above high threshold 74 - 99 [facility] [address] [place] Work Phone: [phone] Potassium [Moles/Vol] 3.8 mmol/L 3.5 - 5.3 [facility] [address] [place] Work Phone: Sodium [Moles/Vol] 141 mmol/L 136 - 145 [facility] [address] [place] Work Phone: Urea nitrogen [Mass/Vol] 39 mg/dL above high threshold 6 - 23 [facility] [address] [place] Work Phone: Laboratory - Hematology and Cell countson 06-30-2021 Erythrocyte distribution width (RBC) [Ratio] 14.3 % See Below [facility] [address] [place] Work Phone: Comment on above: Reference Range: 11. 5 - 14.5 Hematocrit (Bld) [Volume fraction] 33.5 % below low threshold See Below [facility] [address] [place] Work Phone: Comment on above: Reference Range: 41. 0 - 52.0 Hemoglobin (Bld) [Mass/Vol] 10.5 g/dL below low threshold See Below [facility] [address] [place] Work Phone: Comment on above: Reference Range: 13. 5 - 17.5 MCHC (RBC) [Mass/Vol] 31.3 g/dL below low threshold See Below [facility] [address] [place] Work Phone: Comment on above: Reference Range: 32. 0 - 36.0 MCV (RBC) [Entitic vol] 91 fL 80 - 100 [facility] [address] [place] Work Phone: Platelets (Bld) [#/Vol] 141 10*3/uL below lo w threshold 150 - 450 [facility] [address] [place] Work Phone: RBC (Bld) [#/Vol] 3.70 {x10E12/L} below low threshold See Below [facility] [address] [place] Work Phone: Comment on above: Reference Range: 4.5 0 - 5.90 WBC (Bld) [#/Vol] 8.2 10*3/uL 4.4 - 11.3 [facility] [address] [place] Work Phone: No Panel Informationon 06-30 29 {mL/min/1.73m2} Abnormal >90 [facility] [address] [place] Work Phone: Comment on above: CALCULATIONS OF ERNST MATED GFR ARE PERFORMED USING THE 2020 CKD-EPI STUDY REFIT EQUATION WITHOUT THE RACE VARIABLE FOR THE IDMS-TRACEABLE CREATININE METHODS.https://jasn.asnjournals.org/content/early/ ASN.7730830800 0.0 {/100_WBC} 0.0-0.0 [facility] [address] [place] Work Phone: Tacrolimuson 06-30-2021 Tacrolimus (Bld) [Mass/Vol] 7.7 ng/mL 2.0 - 15.0 [facility] [address] [place] Work Phone: Comment on above: NOTE: Result was obt ained using a chemiluminescent microparticle immunoassay (CMIA) on the [employer] i system.Optimal therapeutic ranges for immuno-suppressant drugs [...] high threshold 74 - 99 [facility] [address] [place] Work Phone: [phone] Glucose [Mass/Vol] 283 mg/dL above high threshold 74 - 99 [facility] [address] [place] Work Phone: [phone] Anion gap [Moles/Vol] 16 mmol/L 10 - 20 [facility] [address] [place] Work Phone: [phone] Calcium [Mass/Vol] 8.7 mg/dL 8.6 - 10.6 [facility] [address] [place] Work Phone: [phone] Chloride [Moles/Vol] 104 mmol/L 98 - 107 [facility] [employer] [facility] [address] [place] Work Phone: [phone] CO2 [Moles/Vol] 28 mmol/L 21 - 32 [facility] [address] [place] Work Phone: [phone] Creatinine [Mass/Vol] 1.97 mg/dL above high threshold See Below [facility] [address] [place] Work Phone: [phone] Comment on above: Reference Range: 0.5 0 - 1.30 Glucose [Mass/Vol] 185 mg/dL above high threshold 74 - 99 [facility] [address] [place] Work Phone: [phone] Potassium [Moles/Vol] 3.9 mmol/L 3.5 - 5.3 [facility] [address] [place] Work Phone: [phone] Sodium [Moles/Vol] 144 mmol/L 136 - 145 [facility] [address] [place] Work Phone: [phone] Urea nitrogen [Mass/Vol] 35 mg/dL above high threshold 6 - 23 [facility] [address] [place] Work Phone: [phone] Glucose [Mass/Vol] 186 mg/dL above high threshold 74 - 99 [facility] [address] [place] Work Phone: Laboratory - Hematology and Cell countson 06-29-2021 Erythrocyte distribution width (RBC) [Ratio] 14.3 % See Below [facility] [employer] [address] [place] Work Phone: Comment on above: Reference Range: 11. 5 - 14.5 Hematocrit (Bld) [Volume fraction] 35.8 % below low threshold See Below [facility] [employer] [address] [place] Work Phone: Comment on above: Reference Range: 41. 0 - 52.0 Hemoglobin (Bld) [Mass/Vol] 11.0 g/dL below low threshold See Below [facility] [employer] [address] [place] Work Phone: Comment on above: Reference Range: 13. 5 - 17.5 MCHC (RBC) [Mass/Vol] 30.7 g/dL below low threshold See Below [facility] [employer] [address] [place] Work Phone: Comment on above: Reference Range: 32. 0 - 36.0 MCV (RBC) [Entitic vol] 90 fL 80 - 100 [facility] [employer] [address] [place] Work Phone: Platelets (Bld) [#/Vol] 142 10*3/uL below lo w threshold 150 - 450 [facility] [employer] [address] [place] Work Phone: RBC (Bld) [#/Vol] 3.96 {x10E12/L} below low threshold See Below [facility] [employer] [address] [place] Work Phone: Comment on above: Reference Range: 4.5 0 - 5.90 WBC (Bld) [#/Vol] 7.0 10*3/uL 4.4 - 11.3 [facility] [employer] [address] [place] Work Phone: Magnesium, Serumon Magnesium [Mass/Vol] 1.80 mg/dL See Below [facility] [address] [place] Work Phone: Comment on above: Reference Range: 1.6 0 - 2.40 No Panel Informationon 06-29 34 {mL/min/1.73m2} Abnormal >90 [facility] [address] [place] Work Phone: Comment on above: CALCULATIONS OF ERNST MATED GFR ARE PERFORMED USING THE 2020 CKD-EPI STUDY REFIT EQUATION WITHOUT THE RACE VARIABLE FOR THE IDMS-TRACEABLE CREATININE METHODS.https://jasn.asnjournals.org/content/early// ASN.1357393245 0.0 {/100_WBC} 0.0-0.0 [facility] [address] [place] Work Phone: Tacrolimuson 06-29-2021 Tacrolimus (Bld) [Mass/Vol] 8.4 ng/mL 2.0 - 15.0 [facility] [address] [place] Work Phone: Comment on above: NOTE: Result was obt ained using a chemiluminescent microparticle immunoassay (CMIA) on the [employer] i system.Optimal therapeutic ranges for immuno-suppressant drugs [...] high threshold 74 - 99 [facility] [address] [place] Work Phone: Glucose [Mass/Vol] 215 mg/dL above high threshold 74 - 99 [facility] [address] [place] Work Phone: Anion gap [Moles/Vol] 14 mmol/L 10 - 20 [facility] [address] [place] Work Phone: [phone] Calcium [Mass/Vol] 8.5 mg/dL below low threshold 8.6 - 10.6 [facility] [address] [place] Work Phone: [phone] Chloride [Moles/Vol] 105 mmol/L 98 - 107 [facility] [address] [place] Work Phone: [phone] CO2 [Moles/Vol] 29 mmol/L 21 - 32 [facility] [address] [place] Work Phone: [phone] Creatinine [Mass/Vol] 1.96 mg/dL above high threshold See Below [facility] [address] [place] Work Phone: [phone] Comment on above: Reference Range: 0.5 0 - 1.30 Glucose [Mass/Vol] 159 mg/dL above high threshold 74 - 99 [facility] [address] [place] Work Phone: [phone] Potassium [Moles/Vol] 3.8 mmol/L 3.5 - 5.3 [facility] [address] [place] Work Phone: [phone] Sodium [Moles/Vol] 144 mmol/L 136 - 145 [facility] [employer] [address] [place] Work Phone: [phone] Urea [...] [Ratio] 14.3 % See Below [facility] [address] [place] Work Phone: [phone] Comment on above: Reference Range: 11. 5 - 14.5 Hematocrit (Bld) [Volume fraction] 33.8 % below low threshold See Below [facility] [employer] [address] [place] Work Phone: Comment on above: Reference Range: 41. 0 - 52.0 Hemoglobin (Bld) [Mass/Vol] 10.4 g/dL below low threshold See Below [facility] [employer] [address] [place] Work Phone: Comment on above: Reference Range: 13. 5 - 17.5 MCHC (RBC) [Mass/Vol] 30.8 g/dL below low threshold See Below [facility] [employer] [address] [place] Work Phone: Comment on above: Reference Range: 32. 0 - 36.0 MCV (RBC) [Entitic vol] 90 fL 80 - 100 [facility] [employer] [address] [place] Work Phone: Platelets (Bld) [#/Vol] 133 10*3/uL below lo w threshold 150 - 450 [facility] [employer] [address] [place] Work Phone: RBC (Bld) [#/Vol] 3.75 {x10E12/L} below low threshold See Below [facility] [employer] [address] [place] Work Phone: Comment on above: Reference Range: 4.5 0 - 5.90 WBC (Bld) [#/Vol] 5.7 10*3/uL 4.4 - 11.3 [facility] [employer] [address] [place] Work Phone: Lactate, Levelon 06-28-2021 Lactate [Moles/Vol] 0.6 mmol/L 0.4 - 2.0 [facility] [address] [place] Work Phone: Comment on above: [...] RACE VARIABLE FOR THE IDMS-TRACEABLE CREATININE METHODS.https://jasn.asnjournals.org/content/early/ ASN.1034715853 0.0 {/100_WBC} 0.0-0.0 [facility] [address] [place] Work Phone: Tacrolimuson 06-28-2021 Tacrolimus (Bld) [Mass/Vol] 10.4 ng/mL 2.0 - 15.0 [facility] [address] [place] Work Phone: Comment on above: NOTE: Result was obt ained using a chemiluminescent microparticle immunoassay (CMIA) on the [employer] i system.Optimal therapeutic ranges for immuno-suppressant drugs depend upon an individualpatient's current clinical state, type oforgan transplant, time post-transplant,co-administration of other immunosuppressants,and other clinical factors. The results ofthis test should be correlated with additionalclinical and laboratory data before changesin treatment regimens are made. Complete Blood Count + Diffe rentialon 06-27-2021 Basophils/100 WBC (Bld) 0.5 % 0.0 - 2.0 [facility] [address] [place] Work Phone: Erythrocyte distribution width (RBC) [Ratio] 14.3 % See Below [facility] [address] [place] Work Phone: Comment on above: Reference Range: 11. 5 - 14.5 Hematocrit (Bld) [Volume fraction] 33.6 % below low threshold See Below [facility] [address] [place] Work Phone: Comment on above: Reference Range: 41. 0 - 52.0 Hemoglobin (Bld) [Mass/Vol] 10.3 g/dL below low threshold See Below [facility] [address] [place] Work Phone: Comment on above: Reference Range: 13. 5 - 17.5 Lymphocytes/100 WBC (Bld) 13.1 % See Below [facility] [address] [place] Work Phone: [phone] Comment on above: Reference Range: 13. 0 - 44.0 MCHC (RBC) [Mass/Vol] 30.7 g/dL below low threshold See Below [facility] [address] [place] Work Phone: [phone] Comment on above: Reference Range: 32. 0 - 36.0 MCV (RBC) [Entitic vol] 92 fL 80 - 100 [facility] [address] [place] Work Phone: [phone] Monocytes/100 WBC (Bld) 9.0 % 2.0 - 10.0 [facility] [address] [place] Work Phone: [phone] Neutrophils/100 WBC (Bld) 72.5 % See Below [facility] [address] [place] Work Phone: [phone] Comment on above: Reference Range: 40. 0 - 80.0 Platelets (Bld) [#/Vol] 137 10*3/uL below lo w threshold 150 - 450 [facility] [address] [place] Work Phone: [phone] RBC (Bld) [#/Vol] 3.67 {x10E12/L} below low threshold See Below [facility] [address] [place] Work Phone: [phone] Comment on above: Reference Range: 4.5 0 - 5.90 WBC (Bld) [#/Vol] 6.4 10*3/uL 4.4 - 11.3 [facility] [address] [place] Work Phone: [phone] Complete Blood Count + Differential 0.03 {x10E9/L} See Below [facility] [address] [place] Work Phone: Comment on [...] Wu on 06-27-2021 Glucose [Mass/Vol] 263 mg/dL [facility] Comment on above: Random Glucose Refer [...] 57 U/L 33 - 136 [facility] [address] [place] Work Phone: ALT With P-5'-P [Catalytic activity/Vol] 4 U/L below low threshold 10 - 52 [facility] [address] [place] Work Phone: Comment on above: Patients treated wit h Sulfasalazine may generate falsely decreased results for ALT. Anion gap [Moles/Vol] 18 mmol/L 10 - 20 [facility] [address] [place] Work Phone: AST With P-5'-P [Catalytic activity/Vol] 10 U/L 9 - 39 [facility] [address] [place] Work Phone: Bilirubin [Mass/Vol] 0.3 mg/dL 0.0 - 1.2 [facility] [address] [place] Work Phone: Calcium [Mass/Vol] 8.3 mg/dL below low threshold 8.6 - 10.6 [facility] [address] [place] Work Phone: Chloride [Moles/Vol] [...] high threshold 74 - 99 [facility] [address] [place] Work Phone: Potassium [Moles/Vol] 3.7 mmol/L 3.5 - 5.3 [facility] [address] [place] Work Phone: Protein [Mass/Vol] 5.7 g/dL below low threshold 6.4 - 8.2 [facility] [address] [place] Work Phone: Sodium [Moles/Vol] 142 mmol/L 136 - 145 [facility] [address] [place] Work Phone: Urea nitrogen [Mass/Vol] 37 mg/dL above high threshold 6 - 23 [facility] [address] [place] Work Phone: Glucose [Mass/Vol] 178 mg/dL above high threshold 74 - 99 [facility] [address] [place] Work Phone: Glucose [Mass/Vol] [...] RACE VARIABLE FOR THE IDMS-TRACEABLE CREATININE METHODS.https://jasn.asnjournals.org/content// ASN.0107991462 No Panel InformationOrdered By: Yoshi Wu on 06-27-2021 Bedside Glucose Comment Glu2: cleaned [facility] Automated erythrocytes count in urine sediment (number/area)Ordered By: Audra Quinteros on 06-26-2021 RBC Auto (Urine sed) [#/Area] 0-1 [HPF] [facility] Automated leukocytes count i n urine sediment (number/area)Ordered By: Audra Quinteros on 06-26-2021 WBC Auto (Urine sed) [#/Area] 0-1 [HPF] [facility] Bilirubin Test strip Ql (U)O rdered By: Audra Quinteros on 06-26-2021 Bilirubin Ql (U) Negative Negative [facility] COVID-19 Positive/NegativeOr dered By: Omid Myrick on 06-26-2021 SARS-CoV-2 (COVID-19) N gene JOYCE+probe Ql (Resp) Negative Negative [facility] Comment on above: Testing for SARS-CoV -2 by RT-PCRThis test was developed and its performance characteristics determined by [employer] and validated at the [facility]. This test has not been FDA [...] Quinteros on 06-26-2021 Color (U) Yellow Yellow [facility] Creatinine [Mass/volume] in UrineOrdered By: Audra Quinteros on 06-26-2021 Creatinine (U) [Mass/Vol] 71.5 mg/dL [facility] Comment on above: No reference range e stablished Creatinine and Glomerular fi ltration rate.predicted panel (S/P/Bld)Ordered By: Audra Quinteros on 06-26-2021 Creatinine [Mass/Vol] 1.99 mg/dL 0.64-1.27 [facility] Estimated glomerular filtrat ion rate (GFR) non- AmericanOrdered By: Audra Quinteros on 06-26-2021 GFR/1.73 sq M.predicted among non-blacks MDRD (S/P/Bld) [Vol rate/Area] 33 mL/Min [facility] Ketones Auto test strip (U) [Mass/Vol]Ordered By: Audra Quinteros on 06-26-2021 Ketones (U) [Mass/Vol] Negative Negative Fi [facility] Laboratory - Microbiology an d Antimicrobial susceptibilityOrdered By: Omid Myrick on 06-26-2021 SARS-CoV-2 (COVID-19) RNA JOYCE+probe Ql (Unsp spec) N/A [facility] Laboratory - UrinalysisOrder ed By: Audra Quinteros on 06-26-2021 Hyaline casts LM Ql (Urine sed) 0-8 [LPF] [facility] Nitrite Test strip Ql (U)Ord ered By: Audra Quinteros on 06-26-2021 Nitrite Ql (U) Negative Negative [facility] No Panel InformationOrdered By: Audra Quinteros on 06-26-2021 Estimated GFR () 40 mL/Min [facility] Comment on above: GFR estimated refere nce range: According to KDOQI guidelines, <60 ml/min/1.73m2 is sufficient to diagnose a patient with chronic kidney disease. Pharmacy Creatinine Clearance (Chem 39.80 [facility] Protein Auto test strip (U) [Mass/Vol]Ordered By: Audra Quinteros on 06-26-2021 Protein (U) [Mass/Vol] 300 mg/dL Negative [facility] Serum or plasma calcium abhijit urement (mass/volume)Ordered By: Audra Quinteros on 06-26-2021 Calcium [Mass/Vol] 8.9 mg/dL 8.2-10.2 [facility] Serum or plasma chloride marylin surement (moles/volume)Ordered By: Audra Quinteros on 06-26-2021 Chloride [Moles/Vol] 105 mmol/L 95-114 [facility] Serum or plasma glucose abhijit urement (mass/volume)Ordered By: Audra Quinteros on 06-26-2021 Glucose [Mass/Vol] 194 mg/dL 70-100 [facility] Comment on above: ADA recommended refe rence rangeRandom Glucose Reference Range is dependent on time and content of last meal. Glucose of more than 200 mg/dL in a nonstressed, ambulatory subject supports the diagnosis of Diabetes Mellitus. Serum or plasma potassium me asurement (moles/volume)Ordered By: Omid Myrick on 06-26-2021 Potassium [Moles/Vol] 4.0 mmol/L 3.5-5.1 [facility] Serum or plasma sodium measu rement (moles/volume)Ordered By: Audra Quinteros on 06-26-2021 Sodium [Moles/Vol] 140 mmol/L 136-146 [facility] Serum or plasma total carbon dioxide measurement (moles/volume)Ordered By: Audra Quinteros on 06-26-2021 CO2 [Moles/Vol] 23.8 mmol/L 22.0-30.[address] [facility] Serum or plasma urea nitroge n measurement (mass/volume)Ordered By: Audra Quinteros on 06-26-2021 Urea nitrogen [Mass/Vol] 39 mg/dL 9-23 [facility] Specific gravity Auto test s trip (U) [Rel density]Ordered By: Audra Quinteros on 06-26-2021 Specific gravity (U) [Rel density] 1.015 1.001-1.03 0 [facility] Squamous epithelial cells de tection in urine sediment by light microscopyOrdered By: Audra Quinteros on 06-26-2021 Epithelial cells.squamous LM Ql (Urine sed) None seen [HPF] [facility] Urine bacteria detection by automated methodOrdered By: Audra Quinteros on 06-26-2021 Bacteria Auto Ql (U) None seen None Seen [facility] Urine clarity by refractomet ry automatedOrdered By: Audra Quinteros on 06-26-2021 Clarity Refractometry automated (U) Clear Clear [facility] Urine glucose measurement by automated test strip (mass/volume)Ordered By: Audra Quinteros on 06-26-2021 Glucose Auto test strip (U) [Mass/Vol] Normal mg/dL Normal [facility] Urine hemoglobin detection b y automated test stripOrdered By: Audra Quinteros on 06-26-2021 Hemoglobin Auto test strip Ql (U) Negative Negative [facility] Urine leukocyte esterase det ection by automated test stripOrdered By: Audra Quinteros on 06-26-2021 Leukocyte esterase Auto test strip Ql (U) Negative Negative [facility] Urine sodium measurement (mo les/volume)Ordered By: Audra Quinteros on 06-26-2021 Sodium (U) [Moles/Vol] 94 mmol/L [facility] Comment on above: No reference range e stablished Urobilinogen Auto test strip (U) [Mass/Vol]Ordered By: Audra Quinteros on 06-26-2021 Urobilinogen (U) [Mass/Vol] Normal mg/dL Normal [facility] pH Auto test strip (U)Ordere d By: Audra Quinteros on 06-26-2021 pH (U) 5.5 [pH] 5.0-9.0 [facility] Activated partial thrombopla stin time (aPTT) in platelet poor plasma by coagulation aOrdered By: Andrew Hernández on 06-25-2021 aPTT Coag (PPP) [Time] 33.4 s 25.1-36.5 [facility] Albumin [Mass/volume] in Ser um or PlasmaOrdered By: Andrew Hernández on 06-25-2021 Albumin [Mass/Vol] 3.4 g/dL 3.2-5.5 [facility] Basophils Auto (Bld) [#/Vol] Ordered By: Andrew Hernández on 06-25-2021 Basophils (Bld) [#/Vol] 0.0 10*3/uL 0.0-0.2 [facility] Basophils/100 WBC Auto (Bld) Ordered By: Andrew Hernández on 06-25-2021 Basophils/100 WBC (Bld) 0.6 % [facility] Blood hemoglobin measurement (mass/volume)Ordered By: Andrew Hernández on 06-25-2021 Hemoglobin (Bld) [Mass/Vol] 11.8 g/dL 13.0-17.0 [facility] Blood leukocytes automated c ount (number/volume)Ordered By: Andrew Hernández on 06-25-2021 WBC (Bld) [#/Vol] 7.5 10*3/uL 4.5-11.0 [facility] COVID-19 SOFIAOrdered By: Prasanna Hernández on 06-25-2021 SARS-CoV+SARS-CoV-2 (COVID-19) Ag IA.rapid Ql (Resp) Negative Negative [facility] Comment on above: This is a duplicate Jessi SARS Antigen (GABI) result to be used for statistical tracking purpose only. Creatinine and Glomerular fi ltration rate.predicted panel (S/P/Bld)Ordered By: Andrew Hernández on 06-25-2021 Creatinine [Mass/Vol] 2.25 mg/dL 0.64-1.27 [facility] Eosinophils Auto (Bld) [#/Vo l]Ordered By: Andrew Hernández on 06-25-2021 Eosinophils (Bld) [#/Vol] 0.3 10*3/uL 0.0-0.45 [facility] Eosinophils/100 WBC Auto (Bl d)Ordered By: Andrew Hernández on 06-25-2021 Eosinophils/100 WBC (Bld) 4.6 % [facility] Erythrocyte distribution wid th Auto (RBC) [Ratio]Ordered By: Andrew Hernández on 06-25-2021 Erythrocyte distribution width (RBC) [Ratio] 16.1 % 12.0-14.8 [facility] Erythrocyte sedimentation ra te by Photometric methodOrdered By: Andrew Hernández on 06-25-2021 ESR Photometric method (Bld) [Velocity] 39 mm/hr 0-19 [facility] Estimated glomerular filtrat ion rate (GFR) non- AmericanOrdered By: Andrew Hernández on 06-25-2021 GFR/1.73 sq M.predicted among non-blacks MDRD (S/P/Bld) [Vol rate/Area] 28 mL/Min [facility] Globulin Calc (S) [Mass/Vol] Ordered By: Andrew Hernández on 06-25-2021 Globulin (S) [Mass/Vol] 3.2 g/dL [facility] Hematocrit Auto (Bld) [Volum e fraction]Ordered By: Andrew Hernández on 06-25-2021 Hematocrit (Bld) [Volume fraction] 36.2 % 38.8-50.0 [facility] Laboratory - Chemistry and C hemistry - challengeOrdered By: Andrew Hernández on 06-25-2021 Natriuretic peptide B (Bld) [Mass/Vol] 165.0 pg/mL 5-100 [facility] Laboratory - CoagulationOrde red By: Andrew Hernández on 06-25-2021 PT Coag (PPP) [Time] 11.9 s 9.0-12.9 [facility] Laboratory - Hematology and Cell countsOrdered By: Andrew Hernández on 06-25-2021 Nucleated RBC/100 WBC (Bld) [Ratio] 0.1 % 0-0.5 [facility] Lymphocytes Auto (Bld) [#/Vo l]Ordered By: Andrew Hernández on 06-25-2021 Lymphocytes (Bld) [#/Vol] 1.0 10*3/uL 1.00-4.8 [facility] Lymphocytes/100 WBC Auto (Bl d)Ordered By: Andrew Hernández on 06-25-2021 Lymphocytes/100 WBC (Bld) 12.9 % [facility] MCH Auto (RBC) [Entitic mass ]Ordered By: Andrew Hernández on 06-25-2021 MCH (RBC) [Entitic mass] 28.1 pg 27.5-35.2 [facility] MCHC Auto (RBC) [Mass/Vol]Or dered By: Andrew Hernández on 06-25-2021 MCHC (RBC) [Mass/Vol] 32.7 g/dL 32.5-35.6 [facility] MCV Auto (RBC) [Entitic vol] Ordered By: Andrew Hernández on 06-25-2021 MCV (RBC) [Entitic vol] 86.0 fL 83.5-[address] [facility] Monocytes Auto (Bld) [#/Vol] Ordered By: Andrew Hernández on 06-25-2021 Monocytes (Bld) [#/Vol] 0.5 10*3/uL 0.0-0.8 [facility] Monocytes/100 WBC Auto (Bld) Ordered By: Andrew Hernández on 06-25-2021 Monocytes/100 WBC (Bld) 7.3 % [facility] Neutrophils Auto (Bld) [#/Vo l]Ordered By: Andrew Hernández on 06-25-2021 Neutrophils (Bld) [#/Vol] 5.6 10*3/uL 1.8-7.7 [facility] Neutrophils/100 WBC Auto (Bl d)Ordered By: Andrew Hernández on 06-25-2021 Neutrophils/100 WBC (Bld) 74.6 % [facility] No Panel InformationOrdered By: Andrew Hernández on 06-25-2021 SARS Antigen (LFIA) [facility] Estimated GFR () 34 mL/Min [facility] Comment on above: GFR estimated refere nce range: According to KDOQI guidelines, <60 ml/min/1.73m2 is sufficient to diagnose a patient with chronic kidney disease. Pharmacy Creatinine Clearance (Chem 365.00 [facility] Platelet mean volume Auto (B ld) [Entitic vol]Ordered By: Andrew Hernández on 06-25-2021 Platelet mean volume (Bld) [Entitic vol] 10.0 fL 6.6-10.1 [facility] Platelet poor plasma interna tional normalized ratio (INR) by coagulation assay (relatOrdered By: Andrew Hernández on 06-25-2021 INR Coag (PPP) [Relative time] 1.1 {INR} [facility] Comment on above: INR Therapeutic Rang [...] 06-25-2021 Platelets (Bld) [#/Vol] 171 10*3/uL 150-450 [facility] Comment on above: Delta: 119 on 04/05/ 22-0453 Protein [Mass/volume] in Ser um or PlasmaOrdered By: Andrew Hernández on 06-25-2021 Protein [Mass/Vol] 6.6 g/dL 6.1-7.9 [facility] RBC Auto (Bld) [#/Vol]Ordere d By: Andrew Hernández on 06-25-2021 RBC (Bld) [#/Vol] 4.21 10*6/uL 3.90-5.60 [facility] Serum or plasma C reactive p rotein measurement (mass/volume)Ordered By: Andrew Hernández on 06-25-2021 CRP [Mass/Vol] 0.9 mg/dL 0.0-1.0 [facility] Serum or plasma alanine lopez otransferase measurement without P-5'-P (enzymatic activiOrdered By: Andrew Hernández on 06-25-2021 ALT No additional P-5'-P [Catalytic activity/Vol] 13 U/L 10-60 [facility] Serum or plasma albumin/glob ulin mass ratioOrdered By: Andrew Hernández on 06-25-2021 Albumin/Globulin [Mass ratio] 1.1 {ratio} [facility] Serum or plasma alkaline cande sphatase measurement (enzymatic activity/volume)Ordered By: Andrew Hernández on 06-25-2021 ALP [Catalytic activity/Vol] 57 U/L 32-92 [facility] Serum or plasma aspartate am inotransferase measurement (enzymatic activity/volume)Ordered By: Andrew Hernández on 06-25-2021 AST [Catalytic activity/Vol] 15 U/L 10-42 [facility] Serum or plasma calcium abhijit urement (mass/volume)Ordered By: Andrew Hernández on 06-25-2021 Calcium [Mass/Vol] 9.2 mg/dL 8.2-10.2 [facility] Serum or plasma chloride marylin surement (moles/volume)Ordered By: Andrew Hernández on 06-25-2021 Chloride [Moles/Vol] 106 mmol/L 95-114 [facility] Serum or plasma glucose abhijit urement (mass/volume)Ordered By: Andrew Hernández on 06-25-2021 Glucose [Mass/Vol] 177 mg/dL 70-100 [facility] Comment on above: ADA recommended refe rence rangeRandom Glucose Reference Range is dependent on time and content of last meal. Glucose of more than 200 mg/dL in a nonstressed, ambulatory subject supports the diagnosis of Diabetes Mellitus. Serum or plasma potassium me asurement (moles/volume)Ordered By: Andrew Hernández on 06-25-2021 Potassium [Moles/Vol] 4.2 mmol/L 3.5-5.1 [facility] Serum or plasma sodium measu rement (moles/volume)Ordered By: Andrew Hernández on 06-25-2021 Sodium [Moles/Vol] 142 mmol/L 136-146 [facility] Serum or plasma total biliru bin measurement (mass/volume)Ordered By: Andrew Hernández on 06-25-2021 Bilirubin [Mass/Vol] 0.4 mg/dL 0.3-1.2 [facility] Serum or plasma total carbon dioxide measurement (moles/volume)Ordered By: Andrew Hernández on 06-25-2021 CO2 [Moles/Vol] 24.1 mmol/L 22.0-30.[address] [facility] Serum or plasma urea nitroge n measurement (mass/volume)Ordered By: Andrwe Hernández on 06-25-2021 Urea nitrogen [Mass/Vol] 41 mg/dL 9-23 [facility] Troponin I.cardiac [Mass/vol ume] in Serum or Plasma by High sensitivity methodOrdered By: Andrew Hernández on 06-25-2021 Troponin I.cardiac High sensitivity method [Mass/Vol] 12 pg/mL 0-20 [facility] Albumin [Mass/volume] in Ser um or PlasmaOrdered By: Julee Daives on 06-24-2021 Albumin [Mass/Vol] 2.9 g/dL 3.2-5.5 [facility] Basophils Auto (Bld) [#/Vol] Ordered By: Julee Davies on 06-24-2021 Basophils (Bld) [#/Vol] 0.0 10*3/uL 0.0-0.2 [facility] Basophils/100 WBC Auto (Bld) Ordered By: Julee Davies on 04-05-2022 Basophils/100 WBC (Bld) 0.6 % [facility] Blood hemoglobin measurement (mass/volume)Ordered By: Julee Davies on 06-24-2021 Hemoglobin (Bld) [Mass/Vol] 10.8 g/dL 13.0-17.0 [facility] Blood leukocytes automated c ount (number/volume)Ordered By: Julee Davies on 06-24-2021 WBC (Bld) [#/Vol] 6.6 10*3/uL 4.5-11.0 [facility] Creatinine and Glomerular fi ltration rate.predicted panel (S/P/Bld)Ordered By: Julee Davies on 06-24-2021 Creatinine [Mass/Vol] 2.17 mg/dL 0.64-1.27 [facility] Eosinophils Auto (Bld) [#/Vo l]Ordered By: Julee Davies on 06-24-2021 Eosinophils (Bld) [#/Vol] 0.3 10*3/uL 0.0-0.45 [facility] Eosinophils/100 WBC Auto (Bl d)Ordered By: Julee Davies on 06-24-2021 Eosinophils/100 WBC (Bld) 5.2 % [facility] Erythrocyte distribution wid th Auto (RBC) [Ratio]Ordered By: Julee Davies on 06-24-2021 Erythrocyte distribution width (RBC) [Ratio] 15.8 % 12.0-14.8 [facility] Estimated glomerular filtrat ion rate (GFR) non- AmericanOrdered By: Julee Davies on 06-24-2021 GFR/1.73 sq M.predicted among non-blacks MDRD (S/P/Bld) [Vol rate/Area] 30 mL/Min [facility] Globulin Calc (S) [Mass/Vol] Ordered By: Julee Davies on 06-24-2021 Globulin (S) [Mass/Vol] 2.4 g/dL [facility] Hematocrit Auto (Bld) [Volum e fraction]Ordered By: Julee Davies on 06-24-2021 Hematocrit (Bld) [Volume fraction] 33.0 % 38.8-50.0 [facility] Laboratory - Chemistry and C hemistry - challengeOrdered By: Julee Davies on 06-24-2021 Magnesium [Mass/Vol] 1.9 mg/dL 1.6-2.6 [facility] Natriuretic peptide B (Bld) [Mass/Vol] 224.0 pg/mL 5-100 [facility] Laboratory - Hematology and Cell countsOrdered By: Julee Davies on 06-24-2021 Nucleated RBC/100 WBC (Bld) [Ratio] 0.1 % 0-0.5 [facility] Lymphocytes Auto (Bld) [#/Vo l]Ordered By: Julee Davies on 06-24-2021 Lymphocytes (Bld) [#/Vol] 0.8 10*3/uL 1.00-4.8 [facility] Lymphocytes/100 WBC Auto (Bl d)Ordered By: Julee Davies on 06-24-2021 Lymphocytes/100 WBC (Bld) 11.4 % [facility] MCH Auto (RBC) [Entitic mass ]Ordered By: Julee Davies on 06-24-2021 MCH (RBC) [Entitic mass] 27.7 pg 27.5-35.2 [facility] MCHC Auto (RBC) [Mass/Vol]Or dered By: Julee Davies on 06-24-2021 MCHC (RBC) [Mass/Vol] 32.7 g/dL 32.5-35.6 [facility] MCV Auto (RBC) [Entitic vol] Ordered By: Julee Davies on 06-24-2021 MCV (RBC) [Entitic vol] 84.6 fL 83.5-[address] [facility] Monocytes Auto (Bld) [#/Vol] Ordered By: Julee Davies on 06-24-2021 Monocytes (Bld) [#/Vol] 0.5 10*3/uL 0.0-0.8 [facility] Monocytes/100 WBC Auto (Bld) Ordered By: Julee Davies on 06-24-2021 Monocytes/100 WBC (Bld) 7.4 % [facility] Neutrophils Auto (Bld) [#/Vo l]Ordered By: Julee Davies on 06-24-2021 Neutrophils (Bld) [#/Vol] 5.0 10*3/uL 1.8-7.7 [facility] Neutrophils/100 WBC Auto (Bl d)Ordered By: Julee Davies on 06-24-2021 Neutrophils/100 WBC (Bld) 75.4 % [facility] No Panel InformationOrdered By: Julee Davies on 06-24-2021 Estimated GFR () 36 mL/Min [facility] Comment on above: GFR estimated refere nce range: According to KDOQI guidelines, <60 ml/min/1.73m2 is sufficient to diagnose a patient with chronic kidney disease. Pharmacy Creatinine Clearance (Chem N/A [facility] Platelet mean volume Auto (B ld) [Entitic vol]Ordered By: Julee Davies on 06-24-2021 Platelet mean volume (Bld) [Entitic vol] 9.8 fL 6.6-10.1 [facility] Platelets Auto (Bld) [#/Vol] Ordered By: Julee Davies on 06-24-2021 Platelets (Bld) [#/Vol] 119 10*3/uL 150-450 [facility] Protein [Mass/volume] in Ser um or PlasmaOrdered By: Julee Davies on 06-24-2021 Protein [Mass/Vol] 5.3 g/dL 6.1-7.9 [facility] RBC Auto (Bld) [#/Vol]Ordere d By: Julee Davies on 06-24-2021 RBC (Bld) [#/Vol] 3.90 10*6/uL 3.90-5.60 [facility] Serum or plasma alanine lopez otransferase measurement without P-5'-P (enzymatic activiOrdered By: Julee Davies on 06-24-2021 ALT No additional P-5'-P [Catalytic activity/Vol] 7 U/L 10-60 [facility] Serum or plasma albumin/glob ulin mass ratioOrdered By: Julee Davies on 06-24-2021 Albumin/Globulin [Mass ratio] 1.2 {ratio} [facility] Serum or plasma alkaline cande sphatase measurement (enzymatic activity/volume)Ordered By: Julee Davies on 06-24-2021 ALP [Catalytic activity/Vol] 56 U/L 32-92 [facility] Serum or plasma aspartate am inotransferase measurement (enzymatic activity/volume)Ordered By: Julee Davies on 06-24-2021 AST [Catalytic activity/Vol] 13 U/L 10-42 [facility] Serum or plasma calcium abhijit urement (mass/volume)Ordered By: Julee Davies on 06-24-2021 Calcium [Mass/Vol] 8.9 mg/dL 8.2-10.2 [facility] Serum or plasma chloride marylin surement (moles/volume)Ordered By: Julee Davies on 06-24-2021 Chloride [Moles/Vol] 109 mmol/L 95-114 [facility] Serum or plasma glucose abhijit urement (mass/volume)Ordered By: Julee Davies on 06-24-2021 Glucose [Mass/Vol] 160 mg/dL 70-100 [facility] Comment on above: ADA recommended refe rence rangeRandom Glucose Reference Range is dependent on time and content of last meal. Glucose of more than 200 mg/dL in a nonstressed, ambulatory subject supports the diagnosis of Diabetes Mellitus. Serum or plasma potassium me asurement (moles/volume)Ordered By: Julee Davies on 06-24-2021 Potassium [Moles/Vol] 4.1 mmol/L 3.5-5.1 [facility] Serum or plasma sodium measu rement (moles/volume)Ordered By: Julee Davies on 06-24-2021 Sodium [Moles/Vol] 144 mmol/L 136-146 [facility] Serum or plasma total biliru bin measurement (mass/volume)Ordered By: Julee Davies on 06-24-2021 Bilirubin [Mass/Vol] 0.5 mg/dL 0.3-1.2 [facility] Serum or plasma total carbon dioxide measurement (moles/volume)Ordered By: Julee Davies on 06-24-2021 CO2 [Moles/Vol] 25.7 mmol/L 22.0-30.[address] [facility] Serum or plasma urea nitroge n measurement (mass/volume)Ordered By: Julee Davies on 06-24-2021 Urea nitrogen [Mass/Vol] 43 mg/dL 9- [facility] Tacrolimus [Mass/volume] in BloodOrdered By: Julee Davies on 06-24-2021 Tacrolimus (Bld) [Mass/Vol] 8.1 ng/mL [facility] Comment on above: This test was vane christine and its performance characteristicsdetermined by [facility]. It has not been cleared orapproved by the Food and Drug Administration. Trough (immediately following transplant) 15.0 Trough (steady state, 2 weeks or more after transplant): 3.0 - 8.0 Performed by LC-MS/MS technology.Performed at: [address] [id number] Director: Mynor Nixon MD, Phone: [phone] Albumin [Mass/volume] in Ser um or PlasmaOrdered By: Julee Davies on 05-27-2021 Albumin [Mass/Vol] 3.1 g/dL 3.2-5.5 [facility] Basophils Auto (Bld) [#/Vol] Ordered By: Julee Davies on 05-27-2021 Basophils (Bld) [#/Vol] 0.0 10*3/uL 0.0-0.2 [facility] Basophils/100 WBC Auto (Bld) Ordered By: Julee Davies on 05-27-2021 Basophils/100 WBC (Bld) 0.7 % [facility] Blood hemoglobin measurement (mass/volume)Ordered By: Julee Davies on 05-27-2021 Hemoglobin (Bld) [Mass/Vol] 11.4 g/dL 13.0-17.0 [facility] Blood leukocytes automated c ount (number/volume)Ordered By: Julee Davies on 05-27-2021 WBC (Bld) [#/Vol] 6.1 10*3/uL 4.5-11.0 [facility] Cholesterol [Mass/volume] in Serum or PlasmaOrdered By: Julee Davies on 05-27-2021 Cholesterol [Mass/Vol] 129 mg/dL 140-200 [facility] Comment on above: Chol less than 200 m g/dl low riskChol 201-239 mg/dl borderline riskChol 240 mg/dl and greater high risk Cholesterol in LDL Calc [Mas s/Vol]Ordered By: Julee Davies on 05-27-2021 Cholesterol in LDL [Mass/Vol] 67 mg/dL 0-100 [facility] Comment on above: LDL ATP III CLASSIFI CATIONLDL less than 100 mg/dL OptimalLDL 100-129 mg/dL Near or above optimalLDL 130-159 mg/dL Borderline highLDL 160-189 mg/dL HighLDL greater than 189 mg/dL Very high Cholesterol in VLDL Calc [Ma ss/Vol]Ordered By: Julee Davies on 05-27-2021 Cholesterol in VLDL [Mass/Vol] 27 mg/dL [facility] Creatinine and Glomerular fi ltration rate.predicted panel (S/P/Bld)Ordered By: Julee Davies on 05-27-2021 Creatinine [Mass/Vol] 1.86 mg/dL 0.64-1.27 [facility] Eosinophils Auto (Bld) [#/Vo l]Ordered By: Julee Davies on 05-27-2021 Eosinophils (Bld) [#/Vol] 0.2 10*3/uL 0.0-0.45 [facility] Eosinophils/100 WBC Auto (Bl d)Ordered By: Julee Davies on 05-27-2021 Eosinophils/100 WBC (Bld) 3.7 % [facility] Erythrocyte distribution wid th Auto (RBC) [Ratio]Ordered By: Julee Davies on 05-27-2021 Erythrocyte distribution width (RBC) [Ratio] 14.9 % 12.0-14.8 [facility] Estimated glomerular filtrat ion rate (GFR) non- AmericanOrdered By: Julee Davies on 05-27-2021 GFR/1.73 sq M.predicted among non-blacks MDRD (S/P/Bld) [Vol rate/Area] 35 mL/Min [facility] Globulin Calc (S) [Mass/Vol] Ordered By: Julee Davies on 05-27-2021 Globulin (S) [Mass/Vol] 2.9 g/dL [facility] Glucose mean value [Mass/vol ume] in Blood Estimated from glycated hemoglobinOrdered By: Julee Davies on 05-27-2021 Average glucose Estimated from glycated hemoglobin (Bld) [Mass/Vol] 209 mg/dL [facility] Hematocrit Auto (Bld) [Volum e fraction]Ordered By: Julee Davies on 05-27-2021 Hematocrit (Bld) [Volume fraction] 34.1 % 38.8-50.0 [facility] Hemoglobin A1c percentageOrd ered By: Julee Davies on 05-27-2021 HbA1c (Bld) [Mass fraction] 8.9 % 4.3-5.6 [facility] Comment on above: Increased risk for d iabetes: 5.7 - 6.4diabetes: >6.4glycemic control for adults with diabetes: <7.0 Laboratory - Hematology and Cell countsOrdered By: Julee Dvaies on 05-27-2021 Nucleated RBC/100 WBC (Bld) [Ratio] 0.2 % 0-0.5 [facility] Lymphocytes Auto (Bld) [#/Vo l]Ordered By: Julee Davies on 05-27-2021 Lymphocytes (Bld) [#/Vol] 1.1 10*3/uL 1.00-4.8 [facility] Lymphocytes/100 WBC Auto (Bl d)Ordered By: Julee Davies on 05-27-2021 Lymphocytes/100 WBC (Bld) 17.9 % [facility] MCH Auto (RBC) [Entitic mass ]Ordered By: Julee Davies on 05-27-2021 MCH (RBC) [Entitic mass] 28.3 pg 27.5-35.2 [facility] MCHC Auto (RBC) [Mass/Vol]Or dered By: Julee Davies on 05-27-2021 MCHC (RBC) [Mass/Vol] 33.5 g/dL 32.5-35.6 [facility] MCV Auto (RBC) [Entitic vol] Ordered By: Julee Davies on 05-27-2021 MCV (RBC) [Entitic vol] 84.5 fL 83.5-[address] [facility] Monocytes Auto (Bld) [#/Vol] Ordered By: Julee Davies on 05-27-2021 Monocytes (Bld) [#/Vol] 0.5 10*3/uL 0.0-0.8 [facility] Monocytes/100 WBC Auto (Bld) Ordered By: Julee Davies on 05-27-2021 Monocytes/100 WBC (Bld) 7.9 % [facility] Neutrophils Auto (Bld) [#/Vo l]Ordered By: Julee Davies on 05-27-2021 Neutrophils (Bld) [#/Vol] 4.3 10*3/uL 1.8-7.7 [facility] Neutrophils/100 WBC Auto (Bl d)Ordered By: Julee Davies on 05-27-2021 Neutrophils/100 WBC (Bld) 69.8 % [facility] No Panel InformationOrdered By: Julee Davies on 05-27-2021 25-Hydroxy Vitamin D Total 23.8 ng/mL 30-100 [facility] Comment on above: VITAMIN D STATUS 25( [place])VITAMIN D RANGE (ng/mL) Deficient <20 Insufficient 20 to <30Sufficient 30 to 100Reference: Ely MF,Brad NC, Kristy ORTEGA, et al. Evaluation,treatment, and prevention of vitamin D deficiency; an Endocrine Society clinical practice guideline. JCEM. 2010; 96(7):1911-30. Estimated GFR () 43 mL/Min [facility] Comment on above: GFR estimated refere nce range: According to KDOQI guidelines, <60 ml/min/1.73m2 is sufficient to diagnose a patient with chronic kidney disease. Pharmacy Creatinine Clearance (Chem N/A [facility] Platelet Estimate Decreased Normal [facility] Platelet Morphology Comment Normal Normal [facility] Platelet mean volume Auto (B ld) [Entitic vol]Ordered By: Julee Davies on 05-27-2021 Platelet mean volume (Bld) [Entitic vol] 10.6 fL 6.6-10.1 [facility] Platelets Auto (Bld) [#/Vol] Ordered By: Julee Davies on 05-27-2021 Platelets (Bld) [#/Vol] 129 10*3/uL 150-450 [facility] Protein [Mass/volume] in Ser um or PlasmaOrdered By: Julee Davies on 05-27-2021 Protein [Mass/Vol] 6.0 g/dL 6.1-7.9 [facility] RBC Auto (Bld) [#/Vol]Ordere d By: Julee Davies on 05-27-2021 RBC (Bld) [#/Vol] 4.03 10*6/uL 3.90-5.60 [facility] RBC morphologyOrdered By: Maurice Davies on 05-27-2021 RBC morphology finding Nom (Bld) Normal [facility] Serum or plasma alanine lopez otransferase measurement without P-5'-P (enzymatic activiOrdered By: Julee Davies on 05-27-2021 ALT No additional P-5'-P [Catalytic activity/Vol] 7 U/L 10-60 [facility] Serum or plasma albumin/glob ulin mass ratioOrdered By: Julee Davies on 05-27-2021 Albumin/Globulin [Mass ratio] 1.1 {ratio} [facility] Serum or plasma alkaline cande sphatase measurement (enzymatic activity/volume)Ordered By: Julee Davies on 05-27-2021 ALP [Catalytic activity/Vol] 52 U/L 32-92 [facility] Serum or plasma aspartate am inotransferase measurement (enzymatic activity/volume)Ordered By: Julee Davies on 05-27-2021 AST [Catalytic activity/Vol] 11 U/L 10-42 [facility] Serum or plasma calcium abhijit urement (mass/volume)Ordered By: Julee Davies on 05-27-2021 Calcium [Mass/Vol] 9.0 mg/dL 8.2-10.2 [facility] Serum or plasma chloride marylin surement (moles/volume)Ordered By: Julee Davies on 05-27-2021 Chloride [Moles/Vol] 104 mmol/L 95-114 [facility] Serum or plasma glucose abhijit urement (mass/volume)Ordered By: Julee Davies on 05-27-2021 Glucose [Mass/Vol] 183 mg/dL 70-100 [facility] Comment on above: ADA recommended refe rence rangeRandom Glucose Reference Range is dependent on time and content of last meal. Glucose of more than 200 mg/dL in a nonstressed, ambulatory subject supports the diagnosis of Diabetes Mellitus. Serum or plasma high density lipoprotein (HDL) cholesterol measurementOrdered By: Julee Davies on 05-27-2021 Cholesterol in HDL [Mass/Vol] 35 mg/dL 29-71 [facility] Comment on above: HDL CHOL ATP-III CLA SSIFICATION Cardiovascular RiskHDL > or equal to 60 mg/dL LOWHDL < 40 mg/dL HIGH Serum or plasma potassium me asurement (moles/volume)Ordered By: Julee Davies on 05-27-2021 Potassium [Moles/Vol] 4.1 mmol/L 3.5-5.1 [facility] Serum or plasma sodium measu rement (moles/volume)Ordered By: Julee Davies on 05-27-2021 Sodium [Moles/Vol] 140 mmol/L 136-146 [facility] Serum or plasma total biliru bin measurement (mass/volume)Ordered By: Julee Davies on 05-27-2021 Bilirubin [Mass/Vol] 0.4 mg/dL 0.3-1.2 [facility] Serum or plasma total carbon dioxide measurement (moles/volume)Ordered By: Julee Davies on 05-27-2021 CO2 [Moles/Vol] 26.1 mmol/L 22.0-30.[address] [facility] Serum or plasma total choles terol/high density lipoprotein (HDL) cholesterol mass ratOrdered By: Julee Davies on 05-27-2021 Cholesterol.total/Denise sterol in HDL [Mass ratio] 3.7 {ratio} [facility] Serum or plasma urea nitroge n measurement (mass/volume)Ordered By: Julee Davies on 05-27-2021 Urea nitrogen [Mass/Vol] 38 mg/dL 9-23 [facility] TSH DL <= 0.005 mIU/L QnOrde red By: Julee Davies on 05-27-2021 TSH Qn 4.10 m[IU]/L 0.45-5.33 [facility] Triglyceride [Mass/volume] i n Serum or PlasmaOrdered By: Julee Davies on 05-27-2021 Triglyceride [Mass/Vol] 136 mg/dL 35-[address] [facility] Comment on above: TRIG ATP III [...] Authorization (EUA) and has been verified by [facility] ([facility]). This test is only authorized for the duration of time that circumstances exist to justify the authorization of the emergency use of in vitro diagnostic tests for the detection of SARS-CoV-2 virus and/or diagnosis of COVID-19 infection under section 564(b)(1) of the Act, 21 U.S.C. 360bbb-3(b)(1), unless the authorization is terminated or revoked sooner. [facility] is certified under CLIA-88 as qualified to perform high complexity testing. Testing is performed in the [facility] located at [address] [place] [address].SARS-CoV-2/Flu/RSV Multiplex Test: Fact sheet for providers: https://www.fda.gov/media/332918/downloadFact sheet for patients: https://www.fda.gov/media/532125/download Coronavirus 2019 RNA by PCR, Screening Asymptomtic Canceled [facility] DO Work Phone: Comment on above: SOURCE: Nasal, Nasop haryngeal.This test has received FDA Emergency Use Authorization (EUA) and has been verified by [facility] ([facility]). This test is only authorized for the duration of time that circumstances exist to justify the authorization of the emergency use of in vitro diagnostic tests for the detection of SARS-CoV-2 virus and/or diagnosis of COVID-19 infection under section 564(b)(1) of the Act, 21 U.S.C. 360bbb-3(b)(1), unless the authorization is terminated or revoked sooner. [facility] is certified under CLIA-88 as qualified to perform high complexity testing. Testing is performed in the [facility] located at [address] [place] [address].SARS-CoV-2/Flu/RSV Multiplex Test: Fact sheet for providers: https://www.fda.gov/media/656252/downloadFact sheet for patients: https://www.fda.gov/media/632611/download Laboratory - Chemistry and C hemistry - challengeon 12-24-2020 Glucose [Mass/Vol] 203 mg/dL above high threshold 74 - 99 [facility] DO Work Phone: Laboratory - Hematology and Cell countson 12-24-2020 Erythrocyte distribution width (RBC) [Ratio] 12.7 % See Below [facility] DO Work Phone: Comment on [...] lo w threshold 150 - 450 [facility] [address] DO Work Phone: [phone] RBC (Bld) [#/Vol] 3.92 {x10E12/L} below low threshold See Below [facility] DO Work Phone: Comment on above: Reference Range: 4.5 0 - 5.90 WBC (Bld) [#/Vol] 5.1 10*3/uL 4.4 - 11.3 [facility] [address] DO Work Phone: [phone] No Panel Informationon 12-24 Please click on the link to view the study images Normal [facility] DO Work Phone: 0.0 {/100_WBC} 0.0-0.0 [facility] [address] DO Work Phone: [phone] Renal Function Panelon 12-24 Albumin BCP dye [Mass/Vol] 3.6 g/dL 3.4 - 5.0 [facility] DO Work Phone: Anion gap [Moles/Vol] 15 mmol/L 10 - 20 [facility] DO Work Phone: [phone] Calcium [Mass/Vol] 9.0 mg/dL 8.6 - 10.6 [facility] 260 DO Work Phone: [phone] Chloride [Moles/Vol] 109 mmol/L above high threshold 98 - 107 [facility] 260 DO Work Phone: CO2 [Moles/Vol] 24 mmol/L 21 - 32 [facility] [facility] 260 DO Work Phone: Creatinine [Mass/Vol] [...] Function Panel 45 {mL/min/1.73m2} Abnormal >60 [facility] [facility] 260 DO Work Phone: Comment on above: CALCULATIONS OF ERNST MATED GFR ARE PERFORMED USING THE MDRD STUDY EQUATION FOR THE IDMS-TRACEABLE CREATININE METHODS. CLIN CHEM 2007;53:766-72 Renal Function Panel 37 {mL/min/1.73m2} Abnormal >60 [facility] [facility] 260 DO Work Phone: Tacrolimuson 12-24-2020 Tacrolimus (Bld) [Mass/Vol] 5.4 ng/mL 2.0 - 15.0 [facility] 260 DO Work Phone: Comment on above: NOTE: Result was obt ained using a chemiluminescent microparticle immunoassay (CMIA) on the [employer] i system.Optimal therapeutic ranges for immuno-suppressant drugs depend upon an individualpatient's current clinical state, type oforgan transplant, time post-transplant,co-administration of other immunosuppressants,and other clinical factors. The results ofthis test should be correlated with additionalclinical and laboratory data before changesin treatment regimens are made. CT Head without Contraston 1 CT Head limited WO contrast Normal [facility] 260 DO Work Phone: [phone] Laboratory - Chemistry and C hemistry - challengeon 12-23-2020 Glucose [Mass/Vol] 151 mg/dL above high threshold 74 - 99 [facility] 260 DO Work Phone: [phone] Glucose [Mass/Vol] 241 mg/dL above high threshold 74 - 99 [facility] [facility] 260 DO Work Phone: [phone] Glucose [Mass/Vol] 195 mg/dL above high threshold 74 - 99 [facility] [facility] 260 DO Work Phone: [phone] Glucose [Mass/Vol] 160 mg/dL above high threshold 74 - 99 [facility] [facility] 260 DO Work Phone: [phone] Laboratory - Hematology and Cell countson 12-23-2020 Erythrocyte distribution width (RBC) [Ratio] 12.5 % See Below [facility] [facility] 260 DO Work Phone: [phone] Comment on above: Reference Range: 11. 5 - 14.5 Hematocrit (Bld) [Volume fraction] 34.3 % below low threshold See Below [facility] [facility] 260 DO Work Phone: [phone] Comment on above: Reference Range: 41. 0 - 52.0 Hemoglobin (Bld) [Mass/Vol] 11.1 g/dL below low threshold See Below [facility] 260 DO Work Phone: [phone] Comment on above: Reference Range: 13. 5 - 17.5 MCHC (RBC) [Mass/Vol] 32.4 g/dL See Below [facility]- [facility] 260 DO Work Phone: [phone] Comment on above: Reference Range: 32. 0 - 36.0 MCV (RBC) [Entitic vol] 90 fL 80 - 100 M G[facility] 260 DO Work Phone: [phone] Platelets (Bld) [#/Vol] 106 10*3/uL below lo w threshold 150 - 450 [facility] [facility] 260 DO Work Phone: [phone] RBC (Bld) [#/Vol] 3.83 {x10E12/L} below low threshold See Below [facility] 260 DO Work Phone: [phone] Comment on above: Reference Range: 4.5 0 - 5.90 WBC (Bld) [#/Vol] 5.2 10*3/uL 4.4 - 11.3 [facility] [facility] 260 DO Work Phone: [phone] No Panel Informationon 12-23 0.0 {/100_WBC} 0.0-0.0 [facility] 260 DO Work Phone: [phone] Renal Function Panelon 12-23 Albumin BCP dye [Mass/Vol] 3.6 g/dL 3.4 - 5.0 [facility] [facility] 260 DO Work Phone: [phone] Anion gap [Moles/Vol] 14 mmol/L 10 - 20 MG- [facility] 260 DO Work Phone: [phone] Calcium [Mass/Vol] 8.9 mg/dL 8.6 - 10.6 [facility] [facility] 260 DO Work Phone: [phone] Chloride [Moles/Vol] 109 mmol/L above high threshold 98 - 107 [facility] [facility] 260 DO Work Phone: [phone] CO2 [Moles/Vol] 23 mmol/L 21 - 32 [facility] 260 DO Work Phone: [phone] Creatinine [Mass/Vol] 1.71 mg/dL above high threshold See Below [facility] 260 DO Work Phone: Comment on above: Reference Range: 0.5 0 - 1.30 Glucose [Mass/Vol] 146 mg/dL above high threshold 74 - 99 [facility] [facility] 260 DO Work Phone: Phosphate [Mass/Vol] [...] 4.2 mmol/L 3.5 - 5.3 MG- [facility] [facility] 260 DO Work Phone: Sodium [Moles/Vol] 142 mmol/L 136 - 145 [facility] [facility] 260 DO Work Phone: Urea nitrogen [Mass/Vol] 50 mg/dL above high threshold 6 - 23 [facility] [facility] 260 DO Work Phone: Renal Function Panel 47 {mL/min/1.73m2} Abnormal >60 [facility] [facility] 260 DO Work Phone: Comment on above: CALCULATIONS OF ERNST MATED GFR ARE PERFORMED USING THE MDRD STUDY EQUATION FOR THE IDMS-TRACEABLE CREATININE METHODS. CLIN CHEM 2007;53:766-72 Renal Function Panel 39 {mL/min/1.73m2} Abnormal >60 [facility] [facility] 260 DO Work Phone: Tacrolimuson 12-23-2020 Tacrolimus (Bld) [Mass/Vol] 5.9 ng/mL 2.0 - 15.0 [facility] [facility] 260 DO Work Phone: Comment on above: NOTE: Result was obt ained using a chemiluminescent microparticle immunoassay (CMIA) on the [employer] i system.Optimal therapeutic ranges for immuno-suppressant drugs [...] [facility] 260 DO Work Phone: [phone] Glucose [Mass/Vol] 217 mg/dL above high threshold 74 - 99 [facility] 260 DO Work Phone: [phone] Glucose [Mass/Vol] 145 mg/dL above high threshold 74 - 99 [facility] 260 DO Work Phone: Glucose [Mass/Vol] 142 mg/dL above high threshold 74 - 99 [facility] [facility] 260 DO Work Phone: Laboratory - Hematology and Cell countson 12-22-2020 Erythrocyte distribution width (RBC) [Ratio] 12.6 % See Below [facility] [facility] 260 DO Work Phone: Comment on above: Reference Range: 11. 5 - 14.5 Hematocrit (Bld) [Volume fraction] 33.0 % below low threshold See Below [facility] [facility] 260 DO Work Phone: Comment on above: Reference Range: 41. 0 - 52.0 Hemoglobin (Bld) [Mass/Vol] 10.7 g/dL below low threshold See Below [facility] 260 DO Work Phone: Comment on above: Reference Range: 13. 5 - 17.5 MCHC (RBC) [Mass/Vol] 32.4 g/dL See Below [facility]- [facility] 260 DO Work Phone: [phone] Comment on above: Reference Range: 32. 0 - 36.0 MCV (RBC) [Entitic vol] 91 fL 80 - 100 M [facility] [facility] 260 DO Work Phone: [phone] Platelets (Bld) [#/Vol] 107 10*3/uL below lo w threshold 150 - 450 [facility] [facility] 260 DO Work Phone: [phone] RBC (Bld) [#/Vol] 3.62 {x10E12/L} below low threshold See Below [facility] [facility] 260 DO Work Phone: [phone] Comment on above: Reference Range: 4.5 0 - 5.90 WBC (Bld) [#/Vol] 5.0 10*3/uL 4.4 - 11.3 [facility] [facility] 260 DO Work Phone: [phone] No Panel Informationon 12-22 0.0 {/100_WBC} 0.0-0.0 [facility] [facility] 260 DO Work Phone: [phone] Renal Function Panelon 12-22 Albumin BCP dye [Mass/Vol] 3.5 g/dL 3.4 - 5.0 [facility] 260 DO Work Phone: [phone] Anion gap [Moles/Vol] 15 mmol/L 10 - 20 MG- [facility] 260 DO Work Phone: [phone] Calcium [Mass/Vol] 8.9 mg/dL 8.6 - 10.6 [facility] [facility] 260 DO Work Phone: [phone] Chloride [Moles/Vol] 111 mmol/L above high threshold 98 - 107 [facility] [facility] 260 DO Work Phone: [phone] CO2 [Moles/Vol] 23 mmol/L 21 - 32 [facility] [facility] 260 DO Work Phone: [phone] Creatinine [Mass/Vol] 2.04 mg/dL above high threshold See Below [facility] [facility] 260 DO Work Phone: Comment on above: Reference Range: 0.5 0 - 1.30 Glucose [Mass/Vol] 131 mg/dL above high threshold 74 - 99 [facility] 260 DO Work Phone: Phosphate [Mass/Vol] 3.3 mg/dL 2.5 - 4.9 MG-[facility] [facility] 260 DO Work Phone: Comment on [...] Function Panel 32 {mL/min/1.73m2} Abnormal >60 [facility] [facility] 260 DO Work Phone: Tacrolimuson 12-22-2020 Tacrolimus (Bld) [Mass/Vol] 5.5 ng/mL 2.0 - 15.0 [facility] 260 DO Work Phone: Comment on above: NOTE: Result was obt ained using a chemiluminescent microparticle immunoassay (CMIA) on the [employer] i system.Optimal therapeutic ranges for immuno-suppressant drugs [...] Phone: HbA1c (Bld) [Mass fraction] Canceled [facility] [facility] 260 DO Work Phone: Comment on above: Diagnosis of Diabete s-Adults Non-Diabetic: < or = 5.6% Increased risk for developing diabetes: 5.7-6.4% Diagnostic of diabetes: > or = 6.5%. Monitoring of Diabetes Age (y) Therapeutic Goal (%) Adults: >18 <7.0 Pediatrics: 13-18 <7.5 7-12 <8.0 0- 6 7.5-8.5 [place] [employer]. Diabetes Care 33(S1), Mar 2009. [...] 13-18 <7.5 7-12 <8.0 0- 6 7.5-8.5 [place] [employer]. Diabetes Care 33(S1), Mar 2009. Hemoglobin A1C Canceled [facility] [facility] 260 DO Work Phone: Laboratory - Chemistry and C hemistry - challengeon 12-21-2020 Glucose [Mass/Vol] 191 mg/dL above high threshold 74 - 99 [facility] 260 DO Work Phone: Glucose [Mass/Vol] 203 mg/dL above high threshold 74 - 99 [facility] [facility] 260 DO Work Phone: [phone] Glucose [Mass/Vol] 229 mg/dL above high threshold 74 - 99 [facility] [facility] 260 DO Work Phone: Glucose [Mass/Vol] 136 mg/dL above high threshold 74 - 99 [facility] [facility] 260 DO Work Phone: Laboratory - [...] G[facility] 260 DO Work Phone: [phone] Platelets (Bld) [#/Vol] 124 10*3/uL below lo w threshold 150 - 450 [facility] 260 DO Work Phone: [phone] RBC (Bld) [#/Vol] 4.01 {x10E12/L} below low threshold See Below [facility] [facility] 260 DO Work Phone: [phone] Comment on above: Reference Range: 4.5 0 - 5.90 WBC (Bld) [#/Vol] 6.2 10*3/uL 4.4 - 11.3 [facility] 260 DO Work Phone: [phone] No Panel Informationon 12-21 0.0 {/100_WBC} 0.0-0.0 [facility] [facility] 260 DO Work Phone: [phone] Renal Function Panelon 12-21 Albumin BCP dye [Mass/Vol] 3.8 g/dL 3.4 - 5.0 [facility] [facility] 260 DO Work Phone: [phone] Anion gap [Moles/Vol] 15 mmol/L 10 - 20 MG- [facility] [facility] 260 DO Work Phone: [phone] Calcium [Mass/Vol] 8.8 mg/dL 8.6 - 10.6 [facility] [facility] 260 DO Work Phone: [phone] Chloride [Moles/Vol] 110 mmol/L above high threshold 98 - 107 [facility] 260 DO Work Phone: [phone] CO2 [Moles/Vol] 23 mmol/L 21 - 32 [facility] [facility] 260 DO Work Phone: [phone] Creatinine [Mass/Vol] 2.22 mg/dL above high threshold See Below [facility] [facility] 260 DO Work Phone: [phone] Comment on above: Reference Range: 0.5 0 - 1.30 Glucose [Mass/Vol] 114 mg/dL above high threshold 74 - 99 [facility] 260 DO Work Phone: Phosphate [Mass/Vol] 3.6 mg/dL 2.5 - 4.9 MG[facility] [facility] 260 DO Work Phone: Comment on above: The performance waqar acteristics of phosphorus testing in heparinized plasma have been validated by the individual laboratory site where testing is performed. Testing on heparinized plasma is not approved by the FDA; however, such approval is not necessary. Potassium [Moles/Vol] 4.1 mmol/L 3.5 - 5.3 MG- [facility] [facility] 260 DO Work Phone: Sodium [Moles/Vol] 144 mmol/L 136 - 145 [facility] [facility] 260 DO Work Phone: Urea nitrogen [Mass/Vol] 68 mg/dL above high threshold 6 - 23 [facility] [facility] 260 DO Work Phone: Renal Function Panel 35 {mL/min/1.73m2} Abnormal >60 [facility] 260 DO Work Phone: Comment on above: CALCULATIONS OF ERNST MATED GFR ARE PERFORMED USING THE MDRD STUDY EQUATION FOR THE IDMS-TRACEABLE CREATININE METHODS. CLIN CHEM 2007;53:766-72 Renal Function Panel 29 {mL/min/1.73m2} Abnormal >60 [facility] [facility] 260 DO Work Phone: Tacrolimuson 12-21-2020 Tacrolimus (Bld) [Mass/Vol] 6.8 ng/mL 2.0 - 15.0 [facility] [facility] 260 DO Work Phone: Comment on above: NOTE: Result was obt ained using a chemiluminescent microparticle immunoassay (CMIA) on the [employer] i system.Optimal therapeutic ranges for immuno-suppressant drugs depend upon an individualpatient's current clinical state, type oforgan transplant, time post-transplant,co-administration of other immunosuppressants,and other clinical factors. The results ofthis test should be correlated with additionalclinical and laboratory data before changesin treatment regimens are made. Coronavirus 2019 RNA by PCR, Symptomaticon 12-20-2020 Coronavirus 2019 RNA by PCR, Symptomatic Not detected Normal See Below [facility] [facility] 260 DO Work Phone: Comment on above: SOURCE: Nasal, Nasop haryngealReference Range: Not Detected.This test has received FDA Emergency Use Authorization (EUA) and has been verified by [facility] ([facility]). This test is only authorized for the duration of time that circumstances exist to justify the authorization of the emergency use of in vitro diagnostic tests for the detection of SARS-CoV-2 virus and/or diagnosis of COVID-19 infection under section 564(b)(1) of the Act, 21 U.S.C. 360bbb-3(b)(1), unless the authorization is terminated or revoked sooner. [facility] is certified under CLIA-88 as qualified to perform high complexity testing. Testing is performed in the [facility] located at [address] [place] [address].SARS-CoV-2/Flu/RSV Multiplex Test: Fact sheet for providers: https://www.fda.gov/media/602146/downloadFact sheet for patients: https://www.fda.gov/media/817267/download Date and time of symptom onset Canceled [facility] 260 DO Work Phone: Coronavirus 2019 RNA by PCR, Symptomatic Canceled [facility] [facility] 260 DO Work Phone: Comment on [...] this test method. Fact sheet for providers: www.fda.gov/media/896986/downloadFact sheet for patients: www.fda.gov/media/945121/downloadThis test has received FDA Emergency Use Authorization (EUA) and has been verified by [facility] ([facility]). This test is only authorized for the duration of time that circumstances exist to justify the authorization of the emergency use of in vitro diagnostic tests for the detection of SARS-CoV-2 virus and/or diagnosis of COVID-19 infection under section 564(b)(1) of the Act, 21 U.S.C. 360bbb-3(b)(1), unless the authorization is terminated or revoked sooner. [facility] is certified under CLIA-88 as qualified to perform high complexity testing. Testing is performed in the [facility] laboratories located at [address] [place] [address]. Folate, Serumon 12-20-2020 Folate [Mass/Vol] ng/mL >5.0 MG[facility] [facility] 260 DO Work Phone: Comment on [...] TSH Qn 2.00 m[IU]/L See Below [facility] [facility] 260 DO Work Phone: Comment on above: Reference Range: 0.4 4 - 3.98 TSH testing is performed using different testing methodology at [facility] than at other [facility]. Direct result comparisons should only [...] [facility] 260 DO Work Phone: [phone] PT Coag (PPP) [Time] Canceled MG-[facility] [facility] 260 DO Work Phone: [phone] Laboratory - Hematology and Cell countson 12-20-2020 Erythrocyte distribution width (RBC) [Ratio] 12.9 % See Below [facility] 260 DO Work Phone: [phone] Comment on above: Reference Range: 11. 5 - 14.5 Hematocrit (Bld) [Volume fraction] 35.8 % below low threshold See Below [facility] [facility] 260 DO Work Phone: [phone] Comment on above: Reference Range: 41. 0 - 52.0 Hemoglobin (Bld) [Mass/Vol] 11.7 g/dL below low threshold See Below [facility] 260 DO Work Phone: [phone] Comment on above: Reference Range: 13. 5 - 17.5 MCHC (RBC) [Mass/Vol] 32.7 g/dL See Below MG- [facility] [facility] 260 DO Work Phone: [phone] Comment on above: Reference Range: 32. 0 - 36.0 MCV (RBC) [Entitic vol] 90 fL 80 - 100 M G[facility] [facility] 260 DO Work Phone: [phone] Platelets (Bld) [#/Vol] 131 10*3/uL below lo w threshold 150 - 450 [facility] [facility] 260 DO Work Phone: [phone] RBC (Bld) [#/Vol] 3.97 {x10E12/L} below low [...] above: . <100 pg/mL - Heart failure pccureki531-207 pg/mL - Intermediate probability of acute heart. [...] Radiologyon 12-20-2020 XR Abdomen AP Normal [facility] [facility] 260 DO Work Phone: XR Chest [...] 9.2 mg/dL 8.6 - 10.6 [facility] [facility] 260 DO Work Phone: [phone] Chloride [Moles/Vol] 112 mmol/L above high threshold 98 - 107 [facility] [facility] 260 DO Work Phone: [phone] CO2 [Moles/Vol] 24 mmol/L 21 - 32 [facility] [facility] 260 DO Work Phone: [phone] Creatinine [Mass/Vol] 2.40 mg/dL above high threshold See Below [facility] [facility] 260 DO Work Phone: [phone] Comment on above: Reference Range: 0.5 0 - 1.30 Glucose [Mass/Vol] 211 mg/dL above high threshold 74 - 99 [facility] 260 DO Work Phone: [phone] Phosphate [Mass/Vol] 4.5 mg/dL 2.5 - 4.9 MG-[facility] [facility] 260 DO Work Phone: [phone] Comment on above: The performance waqar acteristics [...] above high threshold 136 - 145 [facility] [facility] 260 DO Work Phone: [phone] Urea nitrogen [Mass/Vol] 74 mg/dL above high threshold 6 - 23 [facility] [facility] 260 DO Work Phone: Renal Function Panel 31 {mL/min/1.73m2} Abnormal >60 [facility] [facility] 260 DO Work Phone: Comment on [...] a chemiluminescent microparticle immunoassay (CMIA) on the [employer] i system.Optimal therapeutic ranges for immuno-suppressant drugs depend upon an individualpatient's current clinical state, type oforgan transplant, time post-transplant,co-administration of other immunosuppressants,and other clinical factors. The results ofthis test should be correlated with additionalclinical and laboratory data before changesin treatment regimens are made. Troponin I, Serumon 12-21-19 Troponin I.cardiac [Mass/Vol] 0.02 ng/mL See Below [facility] [facility] 260 DO Work Phone: Comment on [...] [facility] than at other [facility]. Direct result comparisons should only [...] above high threshold 211 - 911 MG-Cardiolo woo[facility] [facility] [address] [employer] Work Phone: Basic Metabolic PanelOrdered By: Manuel Conner on 12-19-2020 Anion gap [Moles/Vol] 11 mmol/L 9 - 17 mmol/L [employer] Phone: Calcium [Mass/Vol] 9.3 mg/dL 8.6 - 10. 4 mg/dL [employer] Phone: Chloride [Moles/Vol] 107 mmol/L 98 - 10 7 mmol/L [employer] Phone: CO2 [Moles/Vol] 23 mmol/L 20 - 31 mmol/L [employer] Phone: Creatinine [Mass/Vol] 2.53 mg/dL High 0.70 - 1.20 mg/dL [employer] Phone: GFR 30 mL/min Low >60 [employer] Phone: GFR Non- 25 mL/min Low >60 [employer] Phone: Glucose [Mass/Vol] 160 mg/dL High 70 - 99 mg/dL [employer] Phone: Interpretation and review of laboratory results Abnormal [employer] Phone: Potassium [Moles/Vol] 4.5 mmol/L 3.7 - 5.3 mmol/L [employer] Phone: Sodium [Moles/Vol] 141 mmol/L 135 - 144 mmol/L [employer] Phone: Urea nitrogen (BldV) [Mass/Vol] 76 mg/dL High 8 - 23 mg/dL [employer] Phone: Urea nitrogen/Creatinine (Bld) [Mass ratio] 30 High [employer] Phone: [employer] Phone: Laboratory - Chemistry and C hemistry - challengeOrdered By: Manuel Conner on 12-19-2020 GFR/1.73 sq M.predicted MDRD (S/P/Bld) [Vol rate/Area] [employer] Phone: Comment on above: Average GFR for 70 o r more years old: 75 mL/min/1.73sq m Chronic Kidney Disease: <60 mL/min/1.73sq m Kidney failure: <15 mL/min/1.73sq m eGFR calculated using average adult body mass. Additional eGFR calculator available at: http://www.[employer]_crcl_2012.htm Stage 1: Some kidney damage normal GFR Stage 2: Mild kidney damage GFR 60-89 Stage 3: Moderate kidney damage GFR 30-59 Stage 4: Severe kidney damage GFR 15-29 Stage 5: Severe kidney damage GFR <15 ESRD - chronic treatment by dialysis or transplant TroponinOrdered By: Manuel Conner on 12-19-2020 Interpretation and review of laboratory results Abnormal [employer] Phone: Troponin Interp NOT REPORTED [employer] Phone: Troponin T NOT REPORTED <0.03 ng/mL [employer] Phone: Troponin, High Sensitivity 57 ng/L Critically high 0 - 22 ng/L [employer] Phone: Comment on above: High Sensitivity Troponin values cannot be compared with other Troponin methodologies. Patients with high levels of Biotin oral intake (i.e >5mg/day) may have falsely decreased Troponin levels. Samples collected within 8 hours of biotin intake may require additional information for diagnosis. [employer] Phone: Basic Metabolic PanelOrdered By: Manuel Conner on 12-18-2020 Anion gap [Moles/Vol] 14 mmol/L 9 - 17 mmol/L [employer] Phone: Calcium [Mass/Vol] 9.3 mg/dL 8.6 - 10. 4 mg/dL [employer] Phone: Chloride [Moles/Vol] 104 mmol/L 98 - 10 7 mmol/L [employer] Phone: CO2 [Moles/Vol] 22 mmol/L 20 - 31 mmol/L [employer] Phone: Creatinine [Mass/Vol] 4.1 mg/dL High 0.70 - 1.20 mg/dL [employer] Phone: GFR 17 mL/min Low >60 [employer] Phone: GFR Non- 14 mL/min Low >60 [employer] Phone: Glucose [Mass/Vol] 148 mg/dL High 70 - 99 mg/dL [employer] Phone: Potassium [Moles/Vol] 5.2 mmol/L 3.7 - 5.3 mmol/L [employer] Phone: Sodium [Moles/Vol] 140 mmol/L 135 - 144 mmol/L [employer] Phone: Urea nitrogen (BldV) [Mass/Vol] 87 mg/dL High 8 - 23 mg/dL [employer] Phone: Urea nitrogen/Creatinine (Bld) [Mass ratio] 21 High [employer] Phone: Brain Natriuretic PeptideOrd ered By: Manuel Conner on 12-18-2020 BNP Interpretation Pro-BNP Reference Range: [employer] Phone: Comment on above: Rule Out: <300 Pagan Zone: Age <50 300-450 Age 50-75 300-900 Age >75 300-1800 Usually represents mild to moderate HF but other cardiopulmonary causes cannot be ruled out. Rule In: Age <50 >450 Age 50-75 >900 Age >75 >1800 Interpretation and review of laboratory results Abnormal [employer] Phone: Natriuretic peptide B (Bld) [Mass/Vol] 846 pg/mL High <300 [employer] Phone: Comment on above: Pro-BNP results halie ot be compared to BNP results. [employer] Phone: EKG Rhythm StripOrdered By: Unknown Result on 12-18-2020 [employer] Phone: [employer] Phone: Glucose, Whole BloodOrdered By: Manuel Conner on 12-18-2020 Glucose [Mass/Vol] 152 mg/dL High 74 - 100 mg/dL [employer] Phone: Interpretation and review of laboratory results Abnormal [employer] Phone: [employer] Phone: Laboratory - Chemistry and C hemistry - challengeOrdered By: Manuel Conner on 12-18-2020 GFR/1.73 sq M.predicted MDRD (S/P/Bld) [Vol rate/Area] [employer] Phone: Comment on above: Average GFR for 70 o r more years old: 75 mL/min/1.73sq m Chronic Kidney Disease: <60 mL/min/1.73sq m Kidney failure: <15 mL/min/1.73sq m eGFR calculated using average adult body mass. Additional eGFR calculator available at: http://www.[employer]/multiple_crcl_2012.htm Stage 1: Some kidney damage normal GFR Stage 2: Mild kidney damage GFR 60-89 Stage 3: Moderate kidney damage GFR 30-59 Stage 4: Severe kidney damage GFR 15-29 Stage 5: Severe kidney damage GFR <15 ESRD - chronic treatment by dialysis or transplant No Panel InformationOrdered By: Manuel Conner on 12-18-2020 Interpretation and review of laboratory results Abnormal [employer] Phone: [employer] Phone: TroponinOrdered By: Manuel Conner on 12-18-2020 Troponin Interp NOT REPORTED [employer] Phone: Troponin T NOT REPORTED <0.03 ng/mL [employer] Phone: Troponin, High Sensitivity 71 ng/L Critically high 0 - 22 ng/L [employer] Phone: Comment on above: High Sensitivity Troponin [...] Consider advancement by 5-7 cm, if able. [employer] Phone: EXAMINATION: ONE XRA Y VIEW OF [...] cardiomegaly. Bony thorax is without acute abnormality. [employer] Phone: Roger, Mhpn Incoming R adiant Results From [email or web address] - 12/18/2020 1:31 PM EDT EXAMINATION: ONE [...] Consider advancement by 5-7 cm, if able. [employer] Phone: [employer] Phone: XR CHEST PORTABLEOrdered By: Manuel Conner on 12-18-2020 Mild prominence of interstitial markings suggests mild vascular congestion with mild streaky bibasilar atelectasis [employer] Phone: EXAMINATION: ONE XRA Y VIEW OF THE CHEST 12/18/2020 11:18 am COMPARISON: December 17, 2020, chest examination HISTORY: ORDERING SYSTEM PROVIDED HISTORY: Congestion TECHNOLOGIST PROVIDED HISTORY: Congestion FINDINGS: Median sternotomy. Stable cardiomegaly/mild tortuosity of the thoracic aorta Mild streaky bibasilar density. Mild prominence of interstitial markings Possible small right pleural effusion Degenerative changes of the thoracic spine/shoulders [employer] Phone: Roger, Mhpn Incoming R adiant Results From [email or web address] - 12/18/2020 11:26 AM EDT EXAMINATION: ONE [...] vascular congestion with mild streaky bibasilar atelectasis [employer] Phone: [employer] Phone: APTTOrdered By: Manuel lew on 12-17-2020 aPTT Coag (Bld) [Time] 22.8 s Low Me [employer] Phone: Comment on above: IV Heparin Therapy Range: 62.0-94.0 Interpretation and review of laboratory results Abnormal [employer] Phone: [employer] Phone: Blood Gas, VenousOrdered By: Manuel Conner on 12-17-2020 Shilo Test NOT REPORTED [employer] Phone: Carboxyhemoglobin NOT REPORTED 0.0 - 5.0 % [employer] Phone: Comment on above: FIO2 NOT REPORTED [employer] Phone: HCO3 (Bld) [Moles/Vol] 21.9 mmol/L Low 24.0 - 30.0 mmol/L [employer] Phone: Interpretation and review of laboratory results Abnormal [employer] Phone: Methemoglobin NOT REPORTED 0.0 - 1.9 % [employer] Phone: Mode NOT REPORTED [employer] Phone: Negative Base Excess, Angelo 5.7 mmol/L High 0.0 - 2.0 mmol/L [employer] Phone: NOTIFICATION NOT REPORTED [employer] Phone: NOTIFICATION TIME NOT REPORTED [employer] Phone: O2 Device/Flow/% NOT REPORTED [employer] Phone: Oxygen saturation in Blood 31.2 % Low 60.0 - 85.0 % [employer] Phone: Oxyhemoglobin NOT REPORTED 95.0 - 98.0 [...] Work Phone: Respiratory Rate NOT REPORTED [facility] Work Phone: Sample Site NOT REPORTED [facility] Work Phone: Set Rate NOT REPORTED [facility] Work Phone: [phone] Text for Respiratory NOT REPORTED [facility] Work Phone: Total Hb NOT REPORTED 12.0 - 16.0 g/dl [facility] Work Phone: Total Rate NOT REPORTED [facility] Work Phone: VT NOT REPORTED [facility] Work Phone: [facility] [facility] [employer] Work Phone: Brain Natriuretic PeptideOrd ered By: Manuel Conner on 12-17-2020 BNP Interpretation Pro-BNP Reference Range: [employer] Phone: Comment on above: Rule Out: <300 Pagan Zone: Age <50 300-450 Age 50-75 300-900 Age >75 300-1800 Usually represents mild to moderate HF but other cardiopulmonary causes cannot be ruled out. Rule In: Age <50 >450 Age 50-75 >900 Age >75 >1800 Natriuretic peptide B (Bld) [Mass/Vol] 1428 pg/mL High <300 [employer] Phone: Comment on above: Pro-BNP results halie ot be compared to BNP results. CBC Auto DifferentialOrdered By: Manuel Conner on 12-17-2020 Absolute Eos # 0.03 [employer] Phone: Absolute Immature Granulocyte 0.03 [employer] Phone: Absolute Lymph # 0.96 Low [employer] Phone: Absolute Kinney # 0.52 [employer] Phone: Basophils (Bld) [#/Vol] 10*3/uL [facility] [place] Phone: Basophils/100 WBC (Bld) 0 % 0 - 2 % [facility] [place] Phone: Differential Type NOT REPORTED [employer] Phone: Eosinophils/100 WBC (Bld) 0 % Low 1 - 4 % [employer] Phone: Hematocrit (Bld) [Volume fraction] 37.2 % Low 40.7 - 50.3 % [employer] Phone: Hemoglobin.gastrointest inal spec 1 Ql (Stl) 11.5 g/dL Low 13.0 - 17.0 g/dL [employer] Phone: Immature granulocytes/100 WBC (Bld) 0 % 0 [employer] Phone: Interpretation and review of laboratory results Abnormal [employer] Phone: Lymphocytes/100 WBC (Bld) 11 % Low 24 - 43 % [employer] Phone: MCH (RBC) [Entitic mass] 28.5 pg 25.2 - 33.5 pg [employer] Phone: MCHC (RBC) [Mass/Vol] 30.9 g/dL 28.4 - 34.8 g/dL [employer] Phone: MCV (RBC) [Entitic vol] 92.3 fL 82.6 - 102.9 fL [employer] Phone: Monocytes/100 WBC (Bld) 6 % 3 - 12 % [facility] [place] Phone: NRBC Automated 0.0 0.0 per 100 WBC [employer] Phone: Platelet distribution width (Bld) [Ratio] 13.0 % 11.8 - 14.4 % [employer] Phone: Platelet Estimate NOT REPORTED [employer] Phone: Platelet mean volume (Bld) [Entitic vol] NOT REPORTED 8.1 - 13.5 fL [employer] Phone: Platelets (Bld) [#/Vol] See Reflexed IPF Result [employer] Phone: RBC (Bld) [#/Vol] 4.03 10*6/uL Low 4.21 - 5.77 m/uL [employer] Phone: RBC (Bld) [#/Vol] NOT REPORTED [employer] Phone: Segmented neutrophils/100 WBC (Bld) 82 % High 36 - 65 % [employer] Phone: Segs Absolute 6.94 [employer] Phone: WBC (Bld) [#/Vol] 8.5 10*3/uL [employer] Phone: WBC (Bld) [#/Vol] NOT REPORTED [employer] Phone: [employer] Phone: COVID-19, RapidOrdered By: Agnieszka yaritza Conner on 12-17-2020 SARS-CoV-2 (COVID-19) RNA JOYCE+probe Ql (Unsp spec) Not detected Not Detected [employer] Phone: Comment on above: Rapid NAAT: The [...] management decisions. Fact sheet for Healthcare Providers: https://www.fda.gov/media/042662/download Fact sheet for Patients: https://www.fda.gov/media/092704/download Methodology: Isothermal Nucleic Acid Amplification Specimen Description .NASOPHARYNGEAL SWAB [employer] Phone: [employer] Phone: CT HEAD WO CONTRASTOrdered B y: Manuel Conner on 12-17-2020 No acute intracrania l abnormality. 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 Minimal parenchymal volume loss. Minimal chronic microvascular disease. [employer] Phone: EXAMINATION: CT OF T HE HEAD [...] of the visualized skull or soft tissues. [employer] Phone: Roger, pn Incoming R adiant Results From [email or web address] - 12/17/2020 9:36 AM EDT EXAMINATION: CT [...] parenchymal volume loss. Minimal chronic microvascular disease. [employer] Phone: [employer] Phone: Comprehensive Metabolic Pane l w/ Reflex to MGOrdered By: Manuel Conner on 12-17-2020 Albumin [Mass/Vol] 4 g/dL 3.5 - 5.2 g/dL [employer] Phone: Albumin/Globulin [Mass ratio] 1.3 {ratio} [employer] Phone: ALP (Bld) [Catalytic activity/Vol] 66 U/L 40 - 129 U/L [employer] Phone: ALT [Catalytic activity/Vol] 12 U/L 5 - 41 U/L [employer] Phone: Anion gap [Moles/Vol] 19 mmol/L High 9 - 17 mmol/L [employer] Phone: AST [Catalytic activity/Vol] 18 U/L <40 [employer] Phone: Bilirubin [Mass/Vol] 0.16 mg/dL Low 0.3 - 1 .2 mg/dL [employer] Phone: Calcium [Mass/Vol] 8.8 mg/dL 8.6 - 10. 4 mg/dL [employer] Phone: Chloride [Moles/Vol] 102 mmol/L 98 - 10 7 mmol/L [employer] Phone: CO2 [Moles/Vol] 19 mmol/L Low 20 - 31 mmol/L [employer] Phone: Creatinine [Mass/Vol] 6.59 mg/dL Critically high 0.7 0 - 1.20 mg/dL [employer] Phone: Free PSA/Total PSA [Mass fraction] 7.0 g/dL 6.4 - 8.3 g/dL [employer] Phone: GFR 10 mL/min Low >60 [employer] Work Phone: GFR Non- 8 mL/min Low >60 [employer] Phone: Glucose [Mass/Vol] 197 mg/dL High 70 - 99 mg/dL [employer] Phone: Potassium [Moles/Vol] 4.6 mmol/L 3.7 - 5.3 mmol/L [employer] Phone: [phone] Sodium [Moles/Vol] 140 mmol/L 135 - 144 mmol/L [employer] Phone: Urea nitrogen (BldV) [Mass/Vol] 96 mg/dL Critically high 8 - 23 mg/dL [employer] Phone: Urea nitrogen/Creatinine (Bld) [Mass ratio] 15 [employer] Phone: EKG 12 LeadOrdered By: Kathy Conner on 12-17-2020 Atrial Rate 85 BPM [employer] Phone: P Chester -15 degrees [employer] Phone: P-R Interval 224 ms [employer] Phone: Q-T Interval 414 ms [employer] Phone: QRS Duration 120 ms [employer] Phone: [phone] QTc Calculation (Bazett) 492 ms [employer] Phone: R Chester 99 degrees [employer] Phone: T Chester 44 degrees [employer] Phone: Ventricular Rate 85 BPM [employer] Phone: Sinus rhythm with 1s t degree A-V block Rightward axis Septal infarct , age undetermined Abnormal ECG No previous ECGs available Confirmed by JARON BERNARD ([id number]) on 12/17/2020 11:51:30 PM [employer] Phone: Roger, Mhpn Incoming E kg Results From [facility] [place] - 12/17/2020 11:51 PM EDT Sinus rhythm with 1st degree A-V block Rightward axis Septal infarct , age undetermined Abnormal ECG No previous ECGs available Confirmed by JARON BERNARD ([id number]) on 12/17/2020 11:51:30 PM [employer] Phone: [employer] Phone: Immature Platelet FractionOr dered By: Manuel Conner on 12-17-2020 Interpretation and review of laboratory results Abnormal [employer] Phone: Platelet, Fluorescence 110 Low [facility] [employer] Phone: Platelet, Immature Fraction 4.6 % 1.1 - 10.3 % [employer] Phone: [employer] Phone: Laboratory - Chemistry and C hemistry - challengeOrdered By: Manuel Conner on 12-17-2020 GFR/1.73 sq M.predicted MDRD (S/P/Bld) [Vol rate/Area] [employer] Phone: Comment on above: Average GFR for 70 o r more years old: 75 mL/min/1.73sq m Chronic Kidney Disease: <60 mL/min/1.73sq m Kidney failure: <15 mL/min/1.73sq m eGFR calculated using average adult body mass. Additional eGFR calculator available at: http://www.[employer]IVVER.[employer]/multiple_crcl_2012.htm Stage 1: Some kidney damage normal GFR Stage 2: Mild kidney damage GFR 60-89 Stage 3: Moderate kidney damage GFR 30-59 Stage 4: Severe kidney damage GFR 15-29 Stage 5: Severe kidney damage GFR <15 ESRD - chronic treatment by dialysis or transplant Lactic AcidOrdered By: Kathy Conner on 12-17-2020 Lactate [Moles/Vol] 1.3 mmol/L 0.5 - 2. 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 Flow artifact in the proximal M1 segments of the bilateral MCAs and intracranial right ICA. The bilateral intracranial vertebral arteries are not imaged. [employer] Phone: EXAMINATION: MRA OF THE HEAD WITHOUT CONTRAST 12/17/2020 1:32 pm TECHNIQUE: MRA of the head was performed utilizing [id number]-[id number] imaging with MIP images. No intravenous contrast [...] cerebral arteries. No evidence of intracranial aneurysm. [employer] Phone: Roger, Mhpn Incoming R adiant Results From [email or web address] - 12/17/2020 2:02 PM EDT EXAMINATION: MRA OF THE HEAD WITHOUT CONTRAST 12/17/2020 1:32 pm TECHNIQUE: MRA of the head was performed utilizing [id number]-[id number]-[id number] imaging with MIP images. No intravenous contrast [...] bilateral intracranial vertebral arteries are not imaged. [employer] Phone: [employer] Phone: MRI BRAIN WO CONTRASTOrdered By: Manuel Conner on 12-17-2020 Addendum by Cristhian Hardin MD on 12/17/2020 2:02 PM ADDENDUM: Absence of normal flow void in left vertebral artery, likely related to severe stenosis versus occlusion. [employer] Phone: No acute intracrania l abnormality. 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 Mild parenchymal volume loss. Mild chronic microvascular disease. 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 [employer] Phone: EXAMINATION: MRI OF THE BRAIN WITHOUT [...] The soft tissues demonstrate no acute abnormality. [employer] Phone: Roger, [facility] Incoming R adiant Results From [employer] - 12/17/2020 1:55 PM EDT EXAMINATION: MRI [...] internal carotid artery, likely related to occlusion. [employer] Work Phone: [employer] Work Phone: Microscopic UrinalysisOrdere d By: Manuel Conner on 12-17-2020 - [employer] Work Phone: Amorphous, UA NOT REPORTED None [employer] Work Phone: Bacteria, UA NOT REPORTED None [employer] Work Phone: Casts UA NOT REPORTED /LPF [facility] Work Phone: Crystals, UA NOT REPORTED None /HPF [employer] Work Phone: Epithelial Cells UA 0 TO 2 [employer] Work Phone: Mucus, UA NOT REPORTED None [employer] Work Phone: Other Observations UA NOT REPORTED NOT REQ. [facility] Work Phone: RBC, UA 2 TO 5 [employer] Work Phone: Renal Epithelial, UA NOT REPORTED 0 /HPF [facility] [employer] Work Phone: Trichomonas, UA NOT REPORTED None [employer] Work Phone: WBC, UA 0 TO 2 [facility] Work Phone: Yeast, UA NOT REPORTED None [employer] Work Phone: [facility] Work Phone: No Panel InformationOrdered By: Manuel Conner on 12-17-2020 Interpretation and review of laboratory results Abnormal [employer] Work Phone: [employer] Work Phone: Interpretation and review of laboratory results Abnormal [employer] Work Phone: [employer] Work Phone: Protime-INROrdered By: Kathy Conner on 12-17-2020 INR Coag (Bld) [Relative time] 1.1 {INR} [employer] Phone: Comment on above: Non-therapeutic Range: INR = 0.9-1.2 Therapeutic Range: Moderate Anticoagulant Intensity: INR = 2.0-3.0 High Anticoagulant Intensity: INR = 2.5-3.5 PT Coag (PPP) [Time] 13.7 s [employer] Phone: [employer] Phone: TroponinOrdered By: Manuel Conner on 12-17-2020 Interpretation and review of laboratory results Abnormal [employer] Phone: Troponin Interp NOT REPORTED [employer] Phone: Troponin T NOT REPORTED <0.03 ng/mL [employer] Phone: Troponin, High Sensitivity 79 ng/L Critically high 0 - 22 ng/L [employer] Phone: Comment on above: High Sensitivity Troponin values cannot be compared with other Troponin methodologies. Patients with high levels of Biotin oral intake (i.e >5mg/day) may have falsely decreased Troponin levels. Samples collected within 8 hours of biotin intake may require additional information for diagnosis. [employer] Phone: Troponin Interp NOT REPORTED [employer] Phone: Troponin T NOT REPORTED <0.03 ng/mL [employer] Phone: Troponin, High Sensitivity 85 ng/L Critically high 0 - 22 ng/L [employer] Phone: Comment on above: High Sensitivity Troponin values cannot be compared with other Troponin methodologies. Patients with high levels of Biotin oral intake (i.e >5mg/day) may have falsely decreased Troponin levels. Samples collected within 8 hours of biotin intake may require additional information for diagnosis. Urinalysis, reflex to micros copicOrdered By: Manuel Conner on 12-17-2020 Bilirubin Urine Negative NEGATIVE [employer] Work Phone: Color, UA Yellow Yellow [employer] Work Phone: Glucose, Ur Negative NEGATIVE [employer] Work Phone: Interpretation and review of laboratory results Abnormal [employer] Work Phone: Ketones Ql (U) Negative NEGATIVE [employer] Work Phone: Leukocyte esterase Test strip Ql (U) Negative NEGATIVE [employer] Work Phone: Nitrite, Urine Negative NEGATIVE [employer] Work Phone: pH, UA 5.5 [employer] Work Phone: Protein, UA TRACE Abnormal NEGATIVE [employer] Phone: Specific [place], UA 1.025 High [employer] Work Phone: Turbidity UA Clear Clear [employer] Work Phone: Urinalysis Comments NOT REPORTED [facility] [employer] Work Phone: Urine Hgb TRACE Abnormal NEGATIVE [employer] Phone: Urobilinogen, Urine Normal Normal [employer] Phone: [employer] Work Phone: XR CHEST PORTABLEOrdered By: Manuel Conner on 12-17-2020 Mild streaky bibasil ar atelectasis with possible small bilateral pleural effusions [employer] Phone: EXAMINATION: ONE XRA Y VIEW OF THE CHEST 12/17/2020 9:30 am COMPARISON: None. HISTORY: ORDERING SYSTEM PROVIDED HISTORY: Congestion TECHNOLOGIST PROVIDED HISTORY: Congestion FINDINGS: Median sternotomy. Normal cardiopericardial silhouette Low volume lungs. Mild streaky bibasilar densities, possible possible small bilateral pleural effusions. Clear upper lungs Degenerative changes of the thoracic spine/shoulders [employer] Phone: Roger, Mhpn Incoming R adiant Results From [employer] - 12/17/2020 9:46 AM EDT EXAMINATION: ONE [...] atelectasis with possible small bilateral pleural effusions [employer] Phone: [employer] Phone: Vital Signs Date Time Vital Sign Value Performing Clinician Facility 07-03-2021 15:01-0400 Body temperature 99.32 [degF] Michael Carballo Other Phone: [facility] 07-03-2021 15:01-0400 Diastolic blood pressure 66 mm[Hg] Michael Carballo Other Phone: [facility] 07-03-2021 15:01-0400 Heart rate 80 /min Michael Carballo Other Phone: [facility] 07-03-2021 15:01-0400 Respiratory rate 22 /min Michael Carballo Other Phone: [facility] 07-03-2021 15:01-0400 SaO2% (BldA) [Mass fraction] 97 % Michael Carballo Other Phone: [facility] 07-03-2021 15:01-0400 Systolic blood pressure 127 mm[Hg] Michael Carballo Other Phone: [facility] 07-03-2021 06:30-0400 Body weight 100.5 kg Michael Carballo Other Phone: [facility] 06-27-2021 13:00-0400 Diastolic blood pressure 69 mm[Hg] MD Michael Carballo Work Phone: [facility] 06-27-2021 13:00-0400 Heart rate 87 /min MD Michael Carballo Work Phone: [facility] 06-27-2021 13:00-0400 Respiratory rate 17 /min MD Michael Carballo Work Phone: [facility] 06-27-2021 13:00-0400 SaO2% (BldA) [Mass fraction] 94 % MD Michael Carballo Work Phone: [facility] 06-27-2021 13:00-0400 Systolic blood pressure 153 mm[Hg] MD Michael Carballo Work Phone: [facility] 06-27-2021 08:00-0400 Body temperature 97.9 [degF] MD Michael Carballo Work Phone: [facility] 06-27-2021 05:44-0400 Body weight 106.5 kg MD Michael Carballo Work Phone: [facility] 06-26-2021 14:12-0400 Body height 182.88 cm MD Michael Carballo Work Phone: [facility] 06-26-2021 00:24-0400 Body height 182.88 cm MD Michael Carballo Work Phone: [facility] 06-26-2021 00:24-0400 Body mass index (BMI) [Ratio] 32.8 kg/m2 MD Michael Carballo Work Phone: [facility] 06-26-2021 00:24-0400 Body temperature 97.7 [degF] MD Michael Carballo Work Phone: [facility] 06-26-2021 00:24-0400 Body weight 109.9 kg MD Michael Carballo Work Phone: [facility] 06-26-2021 00:24-0400 Diastolic blood pressure 100 mm[Hg] MD Michael Carballo Work Phone: [facility] 06-26-2021 00:24-0400 Heart rate 88 /min MD Michael Carballo Work Phone: [facility] 06-26-2021 00:24-0400 Respiratory rate 18 /min MD Michael Carballo Work Phone: [facility] 06-26-2021 00:24-0400 SaO2% (BldA) [Mass fraction] 96 % MD Michael Carballo Work Phone: [facility] 06-26-2021 00:24-0400 Systolic blood pressure 221 mm[Hg] MD Michael Carballo Work Phone: [facility] 12-19-2020 20:01-0400 Diastolic blood pressure 64 mm[Hg] Manuel Conner MD Work Phone: [employer] Work Phone: 12-19-2020 20:01-0400 Systolic blood pressure 182 mm[Hg] Manuel Conner MD Work Phone: [employer] Work Phone: 12-19-2020 19:00-0400 Heart rate 75 /min Manuel Conner MD Work Phone: [employer] Work Phone: 12-19-2020 19:00-0400 Respiratory rate 23 /min Manuel Conner MD Work Phone: [employer] Work Phone: 12-19-2020 19:00-0400 SaO2% (BldA) [Mass fraction] 94 % Manuel Conner MD Work Phone: [employer] Work Phone: 12-18-2020 06:30-0400 Body temperature 98.29 [degF] Manuel Conner MD Work Phone: [employer] Work Phone: Encounters Encounter Date Encounter Type Care Provider Facility Start: 09-28-2022 AUDIT Michael Carballo Work Phone: PW-Mmcwuwopjy-Vsrjcxzz [facility] 260 DO Work Phone: Start: 07-24-2022 End: 07-24-[address] MICHAEL CARBALLO . Facility: Start: 07-15-2022 End: 07-15-[address] MICHAEL CARBALLO . Facility: Start: 07-13-2022 Patient encounter procedure Michael Carballo Work Phone: XV-Eqsijlibgm-MHE [place] [address] Work Phone: Start: 07-13-2022 Phys/qhp telephone evaluation 11-20 min Michael Carballo Work Phone: CP-Zboqbrkaaf-XTD [facility] [address] Work Phone: Start: 07-13-2022 ambulatory MD SCOUT ROMO Facility:[facility] Start: 07-13-2022 End: 07-13-[address] MICHAEL CARBALLO . Facility: Start: 07-09-2022 AUDIT Michael Carballo Work Phone: CL-Echwivjkpg-DWL [place] [address] Work Phone: Start: 06-08-2022 ambulatory Facility: [facility] Start: 06-05-2022 End: 06-05-[address] MICHAEL CARBALLO . Facility: Start: 06-04-2022 End: 06-04-[address] MICHAEL CARBALLO . Facility: Start: 04-14-2022 End: 04-15-2022 ambulatory DONNA Morfin [facility] Start: 04-14-2022 End: 04-14-2022 Subsequent hospital visit by physician Michael Carballo Work Phone: [facility] Start: 10-30-2021 End: 10-31-2021 ambulatory Manfred Wilson Facility:[facility] Start: 10-28-2021 End: 10-28-[address] MICHAEL CARBALLO . Facility: Start: 10-15-2021 Patient encounter procedure Michael Carballo Work Phone: KA-Kghmgzyvnt-XBC [facility] [address] [place] Work Phone: Start: 10-15-2021 ambulatory DO FELICIA ASTORGA Facility:[facility] Start: 08-05-2021 End: 08-06-[address] MICHAEL CARBALLO . Facility: Start: 07-16-2021 Office outpatient vi sit 25 minutes Michael Carballo Work Phone: XM-Aaojfmtqwb-WJR [facility] [place] Work Phone: Start: 07-16-2021 Patient encounter procedure Michael Carballo Work Phone: VQ-Pzhsntjvdv-QHD [facility] [address] [place] Work Phone: Start: 06-27-2021 End: 07-03-2021 [id number] Start: 06-25-2021 End: 06-27-2021 Evaluation and management of inpatient MD Michael Carballo Work Phone: [facility] Start: 06-25-2021 Patient encounter procedure Michael Carballo Work Phone: EI-Qqjqrjtniv-PDH [facility] [address] [place] Work Phone: Start: 06-24-2021 End: 06-24-2021 Patient encounter procedure MD Michael Carballo Work Phone: [facility] Start: 05-28-2021 AUDIT Michael Carballo Work Phone: HZ-Jdadrvlzep-DTC [facility] [address] [place] Work Phone: Start: 05-27-2021 End: 05-27-2021 Patient encounter procedure MD Michael Carballo Work Phone: [facility] Start: 01-01-2021 Patient encounter procedure Michael Carballo Work Phone: XM-Ybbnjcttfq-IQR [facility] [address] [place] Work Phone: Start: 01-01-2021 WANG, Provider : Rizwan,Felicia, Status: Pen, Time: 2:20 PM Michael Carballo Work Phone: OR-Bquatlxrfn-Yjebxtio [facility] 260 DO Work Phone: Start: 12-31-2020 AUDIT Michael Carballo Work Phone: PD-Adwffmmnqn-Trqkvlbi [facility] [address] DO Work Phone: Start: 12-17-2020 End: 12-19-2020 Emergency department patient visit Manuel Conner MD Work Phone: [facility] ED Comment on above: [place] coma scale t otal score 13-15, at hospital admission (Primary Dx); Acute kidney injury (HCC); Heart replaced by transplant (HCC); Confusion Start: 11-21-2020 AUDIT Michael Carballo Work Phone: PL-Iaysddddmi-JEL [facility] [address] [place] Work Phone: Start: 10-31-2020 AUDIT Michael Carballo Work Phone: [facility] Work Phone: Procedures Date Procedure Procedure [...] heart recipient Heart repla vaibhav by transplant ([facility]) Manuel Conner MD Work Phone: H/O: heart [...] Montse Villanueva, Status: Pen, Time: 2:00 PM UP-Httkekmqux-SXI [place] [address] Work Phone: Start: 07-13-2022 WANG, Provider : Scout Romo, Status: Pen, Time: 1:40 PM VIRFUCORI, Provider: Scout Romo, Status: Pen, Time: 1:[address]-Zyzlonxntq-MFT [place] [address] Work Phone: Start: 04-01-2022 WANG, Provider : Felicia Astorga, Status: Pen, Time: 1:00 PM WANG, Provider: Felicia Astorga, Status: Pen, Time: 1:00 PM XH-Qwmkhhksqa-GCJ [facility] [address] [place] Work Phone: Start: 12-19-2021 Creatinine measurement Creatinine [facility] Work Phone: Start: 12-19-2021 Potassium monitoring Potassium monit nyla [employer] Phone: Start: 10-20-2021 Influenza vaccination Flu vaccine (# 1) [facility] Start: 07-16-2021 Patient encounter procedure [facility] Start: 07-03-2021 End: 07-04-2022 Insulin Glargine (Lantus) Injectable Subcutaneous Once ; DOSE = 12 unit(s) SubCutaneous At BedtimeNotes from Pharmacy: [facility] Start: 03-Jul-2021 End: 03-Jul-2022 Ordered: 03-Jul-[address] [facility] Start: 07-01-2021 End: 07-02-2022 [facility] Comment on above: IF patient HAS [...] End: 30-Jun-2022 Ordered: 30-Jun-[address] [facility] Start: 06-27-2021 End: 06-28-2022 Sodium Chloride 0.9% Injectable Flush Peripheral Line ; via Peripheral LineVolume = 10 mL IntraVenous Flush Every 8 Hours and as Needed Start: 27-Jun-2021 End: 27-Jun-2022 Ordered: 26-Jun-[address] [facility] Start: 06-26-2021 Duplex scan of upper limb arteries US arterial duplex UE RT [facility] Start: 12-17-2020 Annual Wellness Visi t (AWV) Annual Wellness Visit (AWV) [employer] Start: 11-20-2020 Influenza vaccination Flu vaccine (# 1) [employer] Work Phone: Start: 07-16-2020 COVID-19 Vaccine (3 - Pfizer risk 3-dose series) COVID-19 Vaccine (3 - Pfizer risk 3-dose series) [employer] Work Phone: Start: 07-16-2020 COVID-19 Vaccine (3 - Pfizer risk series) COVID-19 Vaccine (3 - Pfizer risk series) [employer] Start: 10-01-2016 Pneumococcal 65+ yrs at Risk Vaccine (2 of 2 - PCV13) Pneumococcal 65+ yrs at Risk Vaccine (2 of 2 - PCV13) [employer] Phone: Start: 10-10-1993 Shingles Vaccine (1 of 2) Shingles Vaccine (1 of 2) [employer] Work Phone: Start: 10-10-1962 DTaP/Tdap/Td vaccine (1 - Tdap) DTaP/Tdap/Td vaccine (1 - Tdap) [employer] Start: 10-10-1962 Shingles vaccine (1 of 2) Shingles vaccine (1 of 2) [employer] Start: 10-10-1961 Hepatitis C screening Hepatitis C sc reen [facility] [employer] Start: 1955 Depression Screen [facility] Start: 10-10-1953 [facility]id [facility] Start: 1943 Hepatitis C screening Hepatitis C sc reen [facility] Work Phone: Calcium [Mass/volume ] in Serum or Plasma [facility] Work Phone: Carbon dioxide, tota l [Moles/volume] in Serum or Plasma [facility] Work Phone: Chloride [Moles/volu me] in Serum or Plasma [facility] Work Phone: Creatinine and Glomerular filtration rate.predicted panel - Serum, Plasma or Blood [facility] Work Phone: Culture, [facility] Work Phone: Culture, Wound Culture, Wound Microbiology Routine 04/14/2022 3:25 PM EST [facility] Work Phone: Glucose [Mass/volume ] in Serum or Plasma [facility] Work Phone: Goals of care, counseling/discussion [facility] Measurement of renal function [facility] Work Phone: Potassium [Moles/volume] in Serum or Plasma [facility] Work Phone: Sodium [Moles/volume ] in Serum or Plasma [facility] Work Phone: Tacrolimus [Mass/volume] in Blood [facility] Work Phone: End: 12-18-[address] [facility] Work Phone: Comment on above: One Time for 1 Occur rences starting 12/18/2020 until 12/18/2020 End: 12-19-2020 Tacrolimus Level Tacrolimus Level Lab Routine One Time for 1 Occurrences starting 12/19/2020 until 12/19/2020 [employer] Work Phone: Comment on above: One Time for 1 Occur rences starting 12/19/2020 until 12/19/2020 Tacrolimus Level [facility] Work Phone: Urea nitrogen [Mass/volume] in Serum or Plasma [facility] Work Phone: Immunizations Immunization Date Immunization Notes Care Provider Haven de leon 03-21-2021 Pfizer-BioNTech COVI D-19 Vacc 30 MCG/0.3ML Intramuscular Suspension Michael Carballo Work Phone: AE-Qpqfsijyjw-LHR [facility] [address] [place] Work Phone: 06-18-2020 Pfizer-BioNTech COVI D-19 Vacc 30 MCG/0.3ML Intramuscular Suspension Michael Candelario Carballo Work Phone: [facility] Work Phone: 05-27-2020 Pfizer-BioNTech COVI D-19 Vacc 30 MCG/0.3ML Intramuscular Suspension Michael E Carballo Work Phone: [facility] Work Phone: 12-29-2019 Seasonal trivalent influenza vaccine, adjuvanted, preservative free Michael Palomino Carballo Work Phone: [facility] Work Phone: 12-22-2017 Seasonal trivalent influenza vaccine, adjuvanted, preservative free Michael Palomino Carballo Work Phone: [facility] Work Phone: 12-28-2016 Seasonal trivalent influenza vaccine, adjuvanted, preservative free Michael Palomino Carballo Work Phone: [facility] Work Phone: 12-24-2015 influenza, high dose seasonal, preservative-free Michael Palomino Carballo Work Phone: [facility] Work Phone: 10-02-2015 influenza, seasonal, injectable Michael Palomino Carballo Work Phone: [facility] Work Phone: 10-02-2015 pneumococcal polysaccharide vaccine, 23 valent Michael Palomino Carballo Work Phone: [facility] Work Phone: 01-09-2015 influenza, injectabl e, quadrivalent, contains preservative Michael Palomino Carballo Work Phone: [facility] Work Phone: 01-03-2013 influenza, seasonal, injectable Michael Palomino Carballo Work Phone: [facility] Work Phone: 01-07-2009 influenza virus vacc ine, whole virus Michael Christianight Work Phone: [facility] Work Phone: 01-20-2005 influenza virus vacc ine, whole virus Michael Palomino Carballo Work Phone: [facility] Work Phone: Payers Date Payer Category Payer Self-pay [id number] 1961 Medicaid [id number] 1961 Medicare [id number] 1961 Medicare [id number] 1961 Private Health Insurance [id number] 1945 Unknown [id number] 2.16.8 [id number] 1943 Unknown [id number] 2.16.84 [id number] 1943 Unknown [id number] 2.16.84 [id number] 1943 Unknown [id number] 2.16.84 [id number] 1943 Unknown [id number] 2.16.84 [id number] 1943 Unknown [id number] 2.16.84 [id number] 1943 Unknown [id number] 2.16.84 [id number] 1943 Unknown [id number] 2.16.84 [id number] 1943 Unknown [id number] 2.16. [id number] 1943 Unknown [id number] 2.16. [id number] Unknown Unknown [id number] 2.16.8 [id number] Social History Date Type Detail Facility Former smoker Former smoker [employer] Work Phone: Start: 12-17-2020 Tobacco smoking stat us ORIS Unknown if ever smoked [facility] Work Phone: Start: 1945 Sex Assigned At Not on file M [employer] Work Phone: Exposure to SARS-CoV -2 (event) Unable to assess [employer] Start: 12-13-2020 [facility] Start: 1945 Sex Assigned At Male F [facility] Start: 06-26-2021 End: 06-26-2021 Tobacco smoking status NHIS Ex-smoker (finding) [facility] End: 03-22-1996 History of tobacco use [facility] Work Phone: Goals Date Patient Goal Desired Activity /State Functional Status Date Assessment Result Facility 06-27-2021 Functional status Patient at Baseline [facility] Work Phone: Functional observable [facility] Mental Status Date Assessment Result Facility 06-30-2021 Cognitive functi ons [id number] [facility] 06-27-2021 Cognitive function Cognitive Sta tus Patient at Baseline [facility] Work Phone: Clinical Notes 07-05-2000 to 07-03-2021 <item><item><item><item><item><item><item><item><item> Note Date & Type Note Facility 07-03-2021 Hospital Discharge instructions Activity:activity with assistance. May shower.Labs 1 (Modify Template):Lab Test(s): Basic Metabolic Panel, CBC, Tacrolimus levelDate To Be Drawn: 07/07/2021all Results To: Dr. Felicia Moore Results To: [id number] Orders:Blood Glucose Monitoring: ACHSAdditional Instructions: Use of [...] Uncontrolled diabetesCall to Schedule in: 2 weeksLocation: [facility] Up Appointment 2:Physician/Dept/Service: Dr. Felicia Astorga / Heart failure and transplantReason for Referral: hospital follow-upLocation: [facility] 1800Comments: Our office will call you to set up an appointment either in person or virtually. [facility] 06-27-2021 Discharge summary Note Date/Time June 27, 2021 10:32am [facility] [address] [place] [address] Discharge Summary Signed Patient: Oliverio Escobedo MR#: [id number] : 1945 Acct:[id number] Age/Sex: 75 / M Adm Date: 2 Loc: Room: [address] [place] [address]: Yoshi Hernandez MD Copies to: MD Justa OlveraS[facility] Hoawrd Providers Date of Discharge: 06/27/21 Discharging Provider: [...] 1 tab PO BID RF: 0 omega 9-aro-jko-fish oil [Fish Oil] 1,000 mg (120 mg-180 [...] signed by Yoshi Hernandez MD> 06/27/21 1032 [facility] Work Phone: 1(822) 712-664104-08-2022 Progress note Author Bonilla Ortiz [facility] June 27, 2021 10:27am Note Date/Time June 27, 2021 10:2 7am [facility] [address] [place] [address] Cardiology Progress Note Signed Patient: Oliverio Escobedo MR#: [id number] : 1945 Acct:[id number] Age/Sex: 75 / M Adm Date: 2 Loc: 3T Room: [address] [place] [address] Type : ADM INOo Attending Dr: Yoshi Hernandez MD Copies to: ~ Date of Service: 06/27/2021 Subjective Principal diagnosis: Edema w history of orthotopic heart transplant Interval history: Mr. Escobedo is a 75 year old male with known history of orthotopic heart transplantation in 2000 done at [facility] who was admitted to the inpatient hospitalist service last night after presenting from the [facility] with complaints of increasing swelling in both legs and the right arm for several days. The patient is resting comfortably this morning. He did diurese gently yesterday. He currently has no cardiac complaints. His breathing feels comfortable lying flat at rest. Swelling in both feet and calves is still present. NB: The patient has been accepted by the transplant service at [facility]. At this point we are awaiting [...] Agree with transfer to transplant service at [facility] for further management. Plan Thank you very much for this kind consultation and for allowing me to participate in the care of this very pleasant patient. Time spent with patient Time Spent With Patient (min): 20 Documented By: Bonilla Ortiz MD 06/27/21 1024 Signed By: <Electronically signed by Bonilla Ortiz MD> 06/27/21 1027 [facility] Work Phone: 1(173) 580-957204-07-2022 Progress note Author Yoshi Wu [facility] June 26, 2021 6:27pm Note Date/Time June 26, 2021 6:27 pm [facility] [address] [place] [address] Hospitalist Progress Note Signed Patient: Oliverio Escobedo MR#: [id number] : 1945 Acct:[id number] Age/Sex: 75 / M Adm Date: 2 Loc: Room: [address] [place] [address] Type : ADM INOo Attending Dr: Yoshi [...] Oil 1,000 mg 06/26/21 09:00 06/26/21 09:01 [place]-3/Fish Oil 1,000 Mg Capsule PO 06/26/22 08:59 [...] <Electronically signed by Yoshi Hernandez MD> 06/26/21 043 [facility] Work Phone: 1(187) 863-865504-07-2022 Consult note Author Bonilla Ortiz [facility] June 26, 2021 2:26pm Note Date/Time June 26, 2021 2:23 pm [facility] [address] [place] [address] Cardiology Consult Note Signed Patient: Oliverio Escobedo MR#: [id number] : 1945 Acct:[id number] Age/Sex: 75 / M Adm Date: 2 Loc: Room: [address] [place] [address] Type : ADM INOo Attending Dr: Yoshi Hernandez MD Copies to: MD Manfred Olvera([facility]) DO Bonilla Wilson MD~ Cardiology HPI History of Present Illness Consult Date: 06/26/21 Reason for Consult: Bilateral lower extremity swelling Remote history of orthotopic heart transplantation HPI: Mr. Escobedo is a 75 year old male with known history of orthotopic heart transplantation in 2000 done at [facility] who was admitted to the inpatient hospitalist service last night after presenting from the [facility] with complaints of increasing swelling in [...] the results were sent to his transplant bit tripoler in [place]. She doesnot know the results. On my evaluation the patient was undergoing bedside transthoracic echocardiography. Preliminary interpretation of the study shows normal resting left ventricular regional wall motion and systolic function. Ejection fraction appears greater than 55%. There is no notable pericardial or pleural effusion. There is no notable/significant valvular heart disease noted. By report the patient's transplant service at [facility] has been contacted and is requested [...] PO BID 02/02/17 [History Confirmed 06/25/21] omega 6-dpj-nav-fish oil 1,000 mg (120 mg-180 mg) capsule [...] x10E3/uL Lymph # (Auto) 1.0 (1.00-4.8) x10E3/uL Kinney # (Auto) 0.5 (0.0-0.8) x10E3/uL Eos # [...] Agree with transfer to transplant service at [facility] for further management. Code(s): Z94.1 - Heart transplant status Plan Thank you very much for this kind consultation and for allowing me to participate in the care of this very pleasant patient. Documented By: Bonilla Ortiz MD 06/26/21 1415 Signed By: <Electronically signed by Bonilla Ortiz MD> 06/26/21 1426 [facility] Work Phone: 1(710) 278-517104-07-2022 History and physical note Author Omid Myrick [facility] June 26, 2021 7:44am Note Date/Time June 26, 2021 12:1 6am [facility] [address] [place] [address] Hospitalist H&P Signed Patient: Oliverio Escobedo MR#: [id number] : 1945 Acct:[id number] Age/Sex: 75 / M Adm Date: 2 Loc: 3T Room: [address] [place] [address] Type : ADM INOo Attending Dr: Yoshi Hernandez MD Copies to: MD Manfred Olvera([facility]) DO Audra Wilson APRN Marwan [...] [facility]. Patient is hard of [...] PO BID 02/02/17 [History Confirmed 06/25/21] omega 6-fri-nie-fish oil 1,000 mg (120 mg-180 mg) capsule [...] Lymph % (Auto) 12.9 % (.) 06/25/21: Kinney % (Auto) 7.3 % (.) 06/25/21: Eos % (Auto) 4.6 % (.) 06/25/21: Baso % (Auto) 0.6 % (.) 06/25/21: Neut # (Auto) 5.6 x10E3/uL (1.8-7.7) 06/25/21: Lymph # (Auto) 1.0 x10E3/uL (1.00-4.8) 06/25/21: Kinney # (Auto) 0.5 x10E3/uL (0.0-0.8) 06/25/21: Eos [...] MD Documented By: Audra Quinteros APRN 06/25/21 2670 Signed By: <Electronically signed by GABBIE Quinteros> 06/26/21 0057 <Electronically signed by Omid Myrick MD> 06/26/21 6744 [facility] Work Phone: 1(236) 894-853809-30-2021 Evaluation note* Diagnosis [place] coma scale total score 13-15, at hospital admission- Primary Acute kidney injury (HCC) Acute kidney failure, unspecified Heart replaced by transplant (HCC) Heart replaced by transplant Confusion Unspecified psychosis documented in this encounter [facility] Work Phone: 1(342) 963-820209-30-2021 History of Present illness Narrative* 74 yo [...] trazodone, trazodone and aripirazole. Discharged back to [facility] with 2x/week home trips. * Immunosuppression: MMF 250 mg BID, tacrolimus 1.5 mg BID (FK 5.4 on 12/24/20, goal 5-8) * Rejection Hx/DSAs: None documented * Last echo: 12/20/20 FA-Gkpdivtrpb-TDJ [facility] [address] [place] Work Phone: [phone]) 513-173909-28-2021 History of Present illness Narrative* Liliya Baker RN - 12/17/2020 10:31 AM EDT Spoke with nurse from [facility] at this time. They will fax lab work to us from [facility]. documented in this [facility] Work Phone: [phone]) 374-310104-16-2001 History of Present illness Narrative* Mr. Escobedo [...] September 2021. [place] He has started Zoloft for depression. 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 Needs assistance with transfers. He has not had any new doctors appointmetns. * Immunosuppression: MMF 250 mg BID, tacrolimus 1 mg BID (FK 11.0 on 10/10/21, goal 5-8) * Rejection Hx/DSAs: None documented * Last echo: 12/20/20 HQ-Rvehoyfehp-TAN Heather [address] Work Phone: Chief complaint Narrative [...] 04:20 PM , for a telehealth visit. IG-Rervgaxcwy-ZEL Heather [facility] [address] [place] Work Phone: Evaluation noteNo assessment information available [facility] Work Phone: Evaluation note* Diagnosis Onset Date Resolution Status Acute kidney injury acute Bilateral edema of lower extremity acute Shortness of breath acute [facility] Work Phone: Evaluation note* Diagnosis Onset Date Resolution Status Acute kidney injury acute Bilateral edema of lower extremity acute History of heart transplant acute Shortness of breath acute [facility] Work Phone: Evaluation note* Psychological: Appropriate mood [...] distress, alert and cooperative, hard [facility] hearing [facility] Mr. Escobedo [...] trazodone, trazodone and aripirazole. Discharged back to [facility] with 2x/week home trips. * Immunosuppression: MMF 250 mg BID, tacrolimus 1.5 mg BID (FK 5.4 on 12/24/20, goal 5-8) * Rejection Hx/DSAs: None documented * Last echo: 12/20/20 ZA-Uftqspnzag-POC [employer] [address] [place] Work Phone: History of Present [...] B/L LE edema. Spoke with RN at [facility]; states LE edema has been ongoing for several weeks, with a rash . * Labs drawn 06/24/21; BNP 224 * Immunosuppression: MMF 250 mg BID, tacrolimus 1.5 mg BID (FK 5.4 on 12/24/20, goal 5-8) - FK pendingfrom 06/24/21 from SNF * Rejection Hx/DSAs: None documented * Last echo: 12/20/20 PJ-Etlrkkynex-TYB [employer] [address] [place] Work Phone: History of Present [...] Hx/DSAs: None documented * Last echo: 12/20/20 SS-Tbduugavxs-TWU Heather [facility]lecillo [address] [place] Work Phone: History [...] Hx/DSAs: None documented * Last echo: 12/20/20 HB-Bkfpumldiy-HCB Heather [facility] [address] [place] Work Phone: History [...] Hx/DSAs: None documented * Last echo: 12/20/20 OW-Vjhiybmkbe-CQD Heather [facility]le[facility] [address] [place] Work Phone: Reason for referral (narrative)* Reason for Referral: HF, DAVID, scabies 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 DATE CREATED AUTHOR AUTHOR'S ORGANIZ ATION 04/18/2022 [facility] DATE CREATED AUTHOR AUTHOR'S ORGANIZ ATION 07/17/2022 [employer] DATE CREATED AUTHOR AUTHOR'S ORGANIZ ATION 07/31/2022 [facility] DATE CREATED AUTHOR AUTHOR'S ORGANIZ ATION 09/07/2022 [facility] DATE CREATED AUTHOR AUTHOR'S ORGANIZ ATION 09/14/2022 [facility] DATE CREATED AUTHOR AUTHOR'S ORGANIZ ATION 11/21/2022 [facility] FOR RECORDS PERTAINING TO PATIENTS WHO ARE [...] BE BASED ON THE PRIMARY CLINICAL RECORDS. [employer] provides no warranty or guarantee of the accuracy or completeness of information in this document.
--- OUTSIDE RECORDS SUMMARY | 2023-04-16 06:38 | XMS_ITS | CCD ---
Author Name Unknown Address [address] [place] [address] Organization [facility] Care Team Providers Care Timber Cutter Name Role Phone Michael Carballo Unavailable Unavailable Unavailable Michael Carballo Primary Care Provider MD Michael Carballo Primary Care Provider JIL Davies Attending Provider DO Manfred Wilson Primary Care Provider [facility] DO Andrew Hernández Emergency Provider [...] MICHAEL Palomino Attending Unavailable CARBALLO ., DR MICHEAL Palomino Consulting Unavailable CARBALLO ., DR MICHAEL [...] sources) Allopurinol; Translations: [allopurinol] Drug Allergy 10-16-[address] [facility] (8 sources) ceFAZolin; Translations: [Cefazolin] Drug Allergy 06-25-2021 Rash, Unknown [facility] Comment on above: extensive fiery red and warm flat rash (1 source) Allopurinol Drug Allergy [facility] (1 source) ceFAZolin Drug Allergy [facility] (1 source) Allopurinol Drug Allergy 06-25-2021 [facility] Repository Medications Current Medications Medication Drug [...] Start: 11-03-2018 take 1 capsule by mo [facility] once daily in the evening dilTIAZem HCl ER Coated Beads 300 MG Oral Capsule Extended Release 24 Hour take 1 capsule every evening Quantity: 0 Refills: 0 Ordered: 04-Jul-2021 Felicia Astorga DO Start : 03-Nov-2018 Active Start: 11-03-2018 take 1 capsule by [facility] once daily dilTIAZem HCl ER Coated Beads 360 MG Oral Capsule Extended Release 24 Hour TAKE 1 CAPSULE Daily Quantity: 30 Refills: 11 Ordered: 03-Nov-2018 Felicia Astorga DO Start : 03-Nov-2018 Active Start: 11-03-2018 take 1 capsule by [facility] once daily dilTIAZem HCl ER Coated Beads 240 MG Oral Capsule Extended Release 24 Hour TAKE 1 CAPSULE Daily Quantity: 90 Refills: 3 Ordered: 24-Dec-2020 Felicia Astorga DO Start : 03-Nov-2018 Active Start: 10-31-2018 take 1 capsule by [facility] every twenty-four hours dilTIAZem 240 mg/24 hours [...] mg Start: 10-31-2018 take 1 tablet by [facility] three times daily hydrALAZINE HCl [...] mg Start: 11-02-2018 take 1 capsule by [facility] every twelve hours Mycophenolate Mofetil 250 MG [...] Tamiko Dsouza Status: Discontinued Generic Substitution Allowed [place] 7-Wea-Sai-Fish Oil (Fish Oil) 1,000 mg (120 mg-180 mg) Capsule (4 sources) Start: 08-05-2017 take 1 tablet by mouth twice daily Barling 9-Ctm-Ljb-Fish Oil (Fish Oil) 1,000 mg (120 mg-180 mg) Capsule Active 1 TAB PO Twice daily August 05, 2017 11:13am Start: 08-05-2017 take 1 tablet by anila th once daily Barling 1-Ojb-Ufx-Fish Oil (Fish Oil) 1,000 mg (120 mg-180 mg) Capsule Active 1 TAB PO Daily August 05, 2017 11:13am Start: 08-05-2017 take 1 tablet by anila th twice daily [place] 0-Igu-Lmq-Fish Oil (Fish Oil) 1,000 mg (120 mg-180 [...] tube 2 times a day only on Guiuuj-Xhurguhqi-Rpudks Quantity: 24 Refills: 0 Ordered: 21-Jan-2016 Warren [...] possible liver damage. take 2 tablets by [facility] every six hours as needed for pain [...] Active Start: 10-15-2021 take 2 tablets by [facility] once daily busPIRone HCl - 10 MG Oral Tablet TAKE 2 TABLET Daily Quantity: 0 Refills: 0 Ordered: 15-Oct-2021 DO Start : 15-Oct-2021 Active take 1 tablet by [facility] twice daily busPIRone (BUSPAR) 15 [...] Allowed Start: 10-31-2018 take 1 capsule by [facility] every six hours as needed diphenhydrAMINE 25 [...] 1 capsule by mouth twice da padmaja Barling-3 Fatty Acids (FISH OIL) 1000 MG CAPS [...] if Blood Glucose is between 251 - 73179 unit(s) if Blood Glucose is between 301 - 38444 unit(s) if Blood Glucose is between 351 [...] if Blood glucose is between 301 - 23871 unit(s) if Blood glucose is between 351 [...] 02-Jul-2021 Generic Substitution Allowed polyethylene glycol 3350 02654 mg powder for oral solution (7 sources) Osmotic Laxative Start: 10-15-2021 MiraLax Mix-I n [place] 17 GM Oral Packet MIX 1 PACKET [...] Allowed Start: 07-02-2021 take 1 capsule by [facility] every twelve hours Tacrolimus 1 MG Oral [...] stupor; and brain damage (1 source) [place] coma scale finding; Translations: [[place] coma scale score 13-15, at hospital admission] [...] t Migration; 2012-10-14; Moved to [facility] Feb 17 2013 9:03PM; Fever of [...] right upper extremity 06-30-2021 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 (1 source) skilled nursing current use of insulin 07-02-2021 Past or Other Problems Problem Classification Problem Date Documented Da te Episodic/Chronic Other gastrointestinal disorders (1 source) Dysphagia, unspecified; Translations: [DYSPHAGIA UNSPECIFIED] Onset: 08-08-2021 Episodic 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 (1 source) SWELLING UPPER/LOW EXTREMITIES 06-27-2021 Comment on above: SWELLING UPPER/LOW E XTREMITIES Results Test Name Value Interpretation Reference Range Facility [facility] 09-14-2022 Lab Reports [id number]:[address] [facility] VIT D 25-OH LABCORPon 2022 Vitamin D, 25-Hydroxy 29.5 ng/mL Critically low 30.0-100.0 [facility] Comment on above: Result Comment: Jennifer min D deficiency has been defined by the [place] of [employer] and an Endocrine Society practice guideline as a level of serum 25-OH vitamin D less than 20 ng/mL (1,2). The Endocrine Society went on to further define vitamin D insufficiency as a level between 21 and 29 ng/mL (2). 1. IOM ([place] of [employer]). 2010. Dietary reference intakes for calcium and D. [place]: The National Academies Press. 2. Ely MF, Brad NC, Kristy ORTEGA, et al. Evaluation, treatment, and prevention of vitamin D deficiency: an Endocrine Society clinical practice guideline. JCEM. 2010; 96(7):1911-30. Performed By: #### V ITADLC #### [facility] [address] [place] [address] Dr. Ronnie Pennington CBC AUTO DIFFon 07-24-2022 BASO # 0.0 103/ul Normal 0.0-0.1 [facility] Comment on above: Performed By: #### C BC #### [facility] [address] [address] [address] Ronnie Pennington Basophils/100 WBC (Bld) 0.6 % Normal 0.2-2.0 [facility] Comment on above: Performed By: #### C BC #### [facility] [address] [address] [address] Ronnie Pennington EO # 0.1 103/ul Normal 0.0-0.7 [facility] Comment on above: Performed By: #### C BC #### [facility] [address] [address] [address] Ronnie Pennington Eosinophils/100 WBC (Bld) 2.0 % Normal 0.9-7.0 [facility] Comment on above: Performed By: #### C BC #### [facility] [address] [place] [address] Dr. Ronnie Pennington Erythrocyte distribution width (RBC) [Ratio] 13.2 % Normal 11.0-15.0 [facility] Comment on above: Performed By: #### C BC #### [facility] [address] [place] [address] Dr. Ronnie Pennington Hematocrit (Bld) [Volume fraction] 33.3 % Critically low 42.0-54.0 [facility] Comment on above: Performed By: #### C BC #### [facility] [address] [place] [address] Dr. Ronnie Pennington Hemoglobin (Bld) [Mass/Vol] 10.0 g/dL Critically low 14.0-18.0 [facility] Comment on above: Performed By: #### C BC #### [facility] [address] [place] [address] Dr. Ronnie Pennington IG # 0.04 10e3/ul Critically high 0.00-0.03 [facility] Comment on above: Performed By: #### C BC #### [facility] [address] [place] [address] Dr. Ronnie Pennington IG % 0.6 % Critically high 0.0-0.5 [facility] Comment on above: Performed By: #### C BC #### [facility] [address] [place] [address] Dr. Ronnie Pennington LYMPH # 1.2 103/ul Normal 1.2-3.8 [facility] Comment on above: Performed By: #### C BC #### [facility] [address] [place] [address] Dr. Ronnie Pennington Lymphocytes/100 WBC (Bld) 17.9 % Critically low 20.5-60.0 [facility] Comment on above: Performed By: #### C BC #### [facility] [address] [place] [address] Dr. Ronnie Pennington MANUAL DIFF REQ NO Normal [facility] Comment on above: Performed By: #### C BC #### [facility] [address] [place] [address] Dr. Ronnie Pennington MCH (RBC) [Entitic mass] 28.2 pg Normal 25.9-34.0 [facility] Comment on above: Performed By: #### C BC #### [facility] [address] [place] [address] Dr. Ronnie Pennington MCHC (RBC) [Mass/Vol] 30.0 g/dL Normal 29.9-35.2 [facility] Comment on above: Performed By: #### C BC #### [facility] [address] [place] [address] Dr. Ronnie Pennington MCV (RBC) [Entitic vol] 94.1 fL Critically high 80.0-94 .0 [facility] Comment on above: Performed By: #### C BC #### [facility] [address] [place] [address] Dr. Ronnie Pennington MONO # 0.4 103/ul Normal 0.3-0.8 [facility] Comment on above: Performed By: #### C BC #### [facility] [address] [place] [address] Dr. Ronnie Pennington Monocytes/100 WBC (Bld) 6.5 % Normal 1.7-12.0 [facility] Comment on above: Performed By: #### C BC #### [facility] [address] [address] [address] Ronnie Pennington NEUT # 4.8 103/ul Normal 1.4-6.5 [facility] Comment on above: Performed By: #### C BC #### [facility] [address] [place] [address] Dr. Ronnie Pennington Neutrophils/100 WBC (Bld) 72.4 % Normal 43.0-75.0 [facility] Comment on above: Performed By: #### C BC #### [facility] [address] [place] [address] Dr. Ronnie Pennington Platelet mean volume (Bld) [Entitic vol] 11.7 fL Normal 9.5-13.5 [facility] Comment on above: Performed By: #### C BC #### [facility] [address] [place] [address] Dr. Ronnie Pennington PLT 137 103/ul Critically low 150-450 [facility] Comment on above: Performed By: #### C BC #### [facility] [address] [place] [address] Dr. Ronnie Pennington RBC 3.54 106/ul Critically low 4.70-6.10 [facility] Comment on above: Performed By: #### C BC #### [facility] [address] [place] [address] Dr. Ronnie Pennington WBC 6.6 103/ul Normal 4.0-11.0 [facility] Comment on above: Performed By: #### C BC #### [facility] [address] [place] [address] Dr. Ronnie Pennington GLYCOHEMOGLOBIN A1Con 2022 ADA RECOMMENDATION SEE BELOW Normal [facility] Comment on above: Result Comment: ADA RECOMMENDED LIMIT 4.0 - 6.0 ADA THERAPEUTIC TARGET < 7.0 ACTION SUGGESTED > 7.0 Performed By: #### A 1C #### [facility] [address] [place] [address] Dr. Ronnie Pennington Glucose [Mass/Vol] 171 mg/dL Normal [facility] Comment on above: Performed By: #### A 1C #### [facility] [address] [address] [address] Ronnie Pennington HbA1c (Bld) [Mass fraction] 7.6 % Critically high 4.5-6.2 [facility] Comment on above: Performed By: #### A 1C #### [facility] [address] [address] [address] Ronnie Pennington MAGNESIUMon 07-24-2022 Magnesium [Mass/Vol] 2.3 mg/dL Normal 1.8-2.4 [facility] Comment on above: Performed By: #### M Mere, TSH, CMP ####[facility] [address] [address]Dr. Ronnie Pennington PROF 14(COMP METB)on 023 Albumin [Mass/Vol] 2.8 g/dL Critically low 3.4-5.0 [facility] Comment on above: Performed By: #### Joaquin Severino TSH, CMP ####[facility] [address] [address]DrFreddy Pennington Albumin/Globulin [Mass ratio] 0.7 {ratio} Normal [facility] Comment on above: Performed By: #### Joaquin Severino TSH, CMP ####[facility] [address] [address]DrFreddy Pennington ALP [Catalytic activity/Vol] 69 U/L Normal 46-116 [facility] Comment on above: Performed By: #### M Mere TSH, CMP ####[facility] [address] [address]DrFreddy Pennington ALT [Catalytic activity/Vol] 8 U/L Critically low 16-63 [facility] Comment on above: Performed By: #### Joaquin Severino TSH, CMP ####[facility] [address] [address]DrFreddy Pennington Anion gap [Moles/Vol] 9.9 mmol/L Normal [facility] Comment on above: Performed By: #### M G TSH, CMP ####[facility] [address] [address]DrFreddy Pennington AST [Catalytic activity/Vol] 9 U/L Critically low 15-37 [facility] Comment on above: Performed By: #### M Mere TSH, CMP ####[facility] [address] [place], [place] [address]Dr. Ronnie Pennington Bilirubin [Mass/Vol] 0.2 mg/dL Normal 0.2-1.0 [facility] Comment on above: Performed By: #### Joaquin Severino TSH, CMP ####[facility] [address] [place], [place] [address]Dr. Ronnie Pennington Calcium [Mass/Vol] 8.9 mg/dL Normal 8.5-10.1 [facility] Comment on above: Performed By: #### Joaquin Severino TSH, CMP ####[facility] [address] [place], [place] [address]Dr. Ronnie Pennington Chloride [Moles/Vol] 104 mmol/L Normal 98-107 [facility] Comment on above: Performed By: #### Joaquin Severino TSH, CMP ####[facility] [address] [place], [place] [address]Dr. Ronnie Pennington CO2 [Moles/Vol] 28.4 mmol/L Normal 21.0-32.0 [facility] Comment on above: Performed By: #### Joaquin Severino TSH, CMP ####[facility] [address] [place], [place] [address]Dr. Ronnie Pennington Creatinine [Mass/Vol] 2.09 mg/dL Critically high 0.70-1.30 [facility] Comment on above: Performed By: #### Joaquin Severino, TSH, CMP ####[facility] [address] [place], [place] [address]Dr. Salomelenny Pennington EGFR-AF [place] 37 mL/min/1.73m2 Critically low >=60 [facility] Comment on above: Performed By: #### Joaquin Severino, TSH, CMP ####[facility] [address] [place], [place] [address]Dr. Ronnie Pennington EGFR-NON AF [place] 31 mL/min/1.73m2 Critically low >=60 [facility] Comment on above: Performed By: #### M G, TSH, CMP ####[facility] [address] [address]Dr. Ronnie Pennington Globulin (S) [Mass/Vol] 3.9 g/dL Normal [facility] Comment on above: Performed By: #### M G, TSH, CMP ####[facility] [address] [address]Dr. oRnnie Pennington Glucose [Mass/Vol] 165 mg/dL Critically high 74-106 [facility] Comment on above: Performed By: #### M G, TSH, CMP ####[facility] [address] [place], [place] [address]Dr. Ronnie Pennington Potassium [Moles/Vol] 4.3 mmol/L Normal 3.5-5.1 [facility] Comment on above: Performed By: #### M G, TSH, CMP ####[facility] [address] [place], [place] [address]Dr. Ronnie Pennington Protein [Mass/Vol] 6.7 g/dL Normal 6.4-8.2 [facility] Comment on above: Performed By: #### M G, TSH, CMP ####[facility] [address] [place], [place] [address]Dr. Ronnie Pennington Sodium [Moles/Vol] 138 mmol/L Normal 136-145 [facility] Comment on above: Performed By: #### M G, TSH, CMP ####[facility] [address] [place], [place] [address]Dr. Ronnie Pennington Urea nitrogen [Mass/Vol] 33.0 mg/dL Critically high 7.0-18.0 [facility] Comment on above: Performed By: #### M G, TSH, CMP ####[facility] [address] [place], [place] [address]Dr. Ronnie Pennington Urea nitrogen/Creatinine [Mass ratio] 15.8 mg/mg Normal [facility] Comment on above: Performed By: #### M G, TSH, CMP ####[facility] [address] [place], [place] [address]Dr. Ronnie Pennington TSHon 07-24-2022 TSH 2.763 uIU/mL Normal 0.358-3.74 0 [facility] Comment on above: Performed By: #### M G, TSH, CMP ####[facility] [address] [address]Dr. Ronnie Pennington FK506 (TACROLIMUS) WHOLE BLO ODon 07-15-2022 Tacrolimus (FK506), Blood 9.4 ng/mL Normal 2.0-20.0 [facility] Comment on above: Result Comment: Trou gh (immediately following transplant) 15.0 . Trough (steady state, 2 weeks or more after transplant): 3.0 - 8.0 . Performed by LC-MS/MS technology. Performed By: #### F [id number] #### [facility] [address] [place] [address] Dr. Ronnie Pennington CBC AUTO DIFFon 07-13-2022 BASO # 0.0 103/ul Normal 0.0-0.1 [facility] Comment on above: Performed By: #### C BC #### [facility] [address] [place] [address] Dr. Ronnie Pennington Basophils/100 WBC (Bld) 0.3 % Normal 0.2-2.0 [facility] Comment on above: Performed By: #### C BC #### [facility] [address] [place] [address] Dr. Ronnie Pennington EO # 0.2 103/ul Normal 0.0-0.7 [facility] Comment on above: Performed By: #### C BC #### [facility] [address] [place] [address] Dr. Ronnie Pennington Eosinophils/100 WBC (Bld) 2.5 % Normal 0.9-7.0 [facility] Comment on above: Performed By: #### C BC #### [facility] [address] [place] [address] Dr. Ronnie Pennington Erythrocyte distribution width (RBC) [Ratio] 13.1 % Normal 11.0-15.0 [facility] Comment on above: Performed By: #### C BC #### [facility] [address] [place] [address] Dr. Ronnie Pennington Hematocrit (Bld) [Volume fraction] 33.4 % Critically low 42.0-54.0 [facility] Comment on above: Performed By: #### C BC #### [facility] [address] [place] [address] Dr. Ronnie Pennington Hemoglobin (Bld) [Mass/Vol] 10.4 g/dL Critically low 14.0-18.0 [facility] Comment on above: Performed By: #### C BC #### [facility] [address] [place] [address] Dr. Ronnie Pennington IG # 0.04 10e3/ul Critically high 0.00-0.03 [facility] Comment on above: Performed By: #### C BC #### [facility] [address] [place] [address] Dr. Ronnie Pennington IG % 0.6 % Critically high 0.0-0.5 [facility] Comment on above: Performed By: #### C BC #### [facility] [address] [place] [address] Dr. Ronnie Pennington LYMPH # 1.2 103/ul Normal 1.2-3.8 [facility] Comment on above: Performed By: #### C BC #### [facility] [address] [place] [address] Dr. Ronnie Pennington Lymphocytes/100 WBC (Bld) 16.8 % Critically low 20.5-60.0 [facility] Comment on above: Performed By: #### C BC #### [facility] [address] [place] [address] Dr. Ronnie Pennington MANUAL DIFF REQ NO Normal [facility] Comment on above: Performed By: #### C BC #### [facility] [address] [place] [address] Dr. Ronnie Pennington MCH (RBC) [Entitic mass] 28.5 pg Normal 25.9-34.0 [facility] Comment on above: Performed By: #### C BC #### [facility] [address] [place] [address] Dr. Ronnie Pennington MCHC (RBC) [Mass/Vol] 31.1 g/dL Normal 29.9-35.2 [facility] Comment on above: Performed By: #### C BC #### [facility] [address] [place] [address] Dr. Ronnie Pennington MCV (RBC) [Entitic vol] 91.5 fL Normal 80.0-94.0 [facility] Comment on above: Performed By: #### C BC #### [facility] [address] [place] [address] Dr. Ronnie Pennington MONO # 0.5 103/ul Normal 0.3-0.8 [facility] Comment on above: Performed By: #### C BC #### [facility] [address] [place] [address] Dr. Ronnie Pennington Monocytes/100 WBC (Bld) 7.5 % Normal 1.7-12.0 [facility] Comment on above: Performed By: #### C BC #### [facility] [address] [place] [address] Dr. Ronnie Pennington NEUT # 5.0 103/ul Normal 1.4-6.5 [facility] Comment on above: Performed By: #### C BC #### [facility] [address] [place] [address] Dr. Ronnie Pennington Neutrophils/100 WBC (Bld) 72.3 % Normal 43.0-75.0 [facility] Comment on above: Performed By: #### C BC #### [facility] [address] [place] [address] Dr. Ronnie Pennington Platelet mean volume (Bld) [Entitic vol] 11.8 fL Normal 9.5-13.5 [facility] Comment on above: Performed By: #### C BC #### [facility] [address] [place] [address] Dr. Ronnie Pennington PLT 126 103/ul Critically low 150-450 [facility] Comment on above: Performed By: #### C BC #### [facility] [address] [place] [address] Dr. Ronnie Pennington RBC 3.65 106/ul Critically low 4.70-6.10 [facility] Comment on above: Performed By: #### C BC #### [facility] [address] [address] [address] Ronnie Pennington WBC 6.9 103/ul Normal 4.0-11.0 [facility] Comment on above: Performed By: #### C BC #### [facility] [address] [address] [address] Ronnie Pennington MAGNESIUMon 07-13-2022 Magnesium [Mass/Vol] 2.1 mg/dL Normal 1.8-2.4 [facility] Comment on above: Performed By: #### C MP, MG #### [facility] [address] [place] [address] Dr. Ronnie Pennington Office Visit (Cardiology)on 07-13-2022 Follow-up visit Patient Instructions -Please bring a list of your medications to every appointment. -We will schedule you a follow up appointment in # months. We will call you with this date. -If you have any questions, please do not hesitate to contact our office at [phone]. For after hours issues, please call [phone]. Chief Complaint OLIVERIO ESCOBEDO is being seen [...] TabletTake 1 tablet twice daily MiraLax Mix-In [place] 17 GM Oral PacketMIX 1 PACKET in [...] TABLET Bedtime (more content not included)... Normal [facility] PROF 14(COMP METB)on 023 Albumin [Mass/Vol] 2.9 g/dL Critically low 3.4-5.0 [facility] Comment on above: Performed By: #### C MP, MG #### [facility] [address] [place] [address] Dr. Ronnie Pennington Albumin/Globulin [Mass ratio] 0.7 {ratio} Normal [facility] Comment on above: Performed By: #### C MP, MG #### [facility] [address] [address] [address] Ronnie Pennington ALP [Catalytic activity/Vol] 71 U/L Normal 46-116 [facility] Comment on above: Performed By: #### C MP, MG #### [facility] [address] [place] [address] Dr. Ronnie Pennington ALT [Catalytic activity/Vol] 12 U/L Critically low 16-63 [facility] Comment on above: Performed By: #### C MP, MG #### [facility] [address] [address] [address] Ronnie Pennington Anion gap [Moles/Vol] 15.1 mmol/L Normal [facility] Comment on above: Performed By: #### C MP, MG #### [facility] [address] [place] [address] Dr. Ronnie Pennington AST [Catalytic activity/Vol] 11 U/L Critically low 15-37 [facility] Comment on above: Performed By: #### C MP, MG #### [facility] [address] [place] [address] Dr. Ronnie Pennington Bilirubin [Mass/Vol] 0.2 mg/dL Normal 0.2-1.0 [facility] Comment on above: Performed By: #### C MP, MG #### [facility] [address] [place] [address] Dr. Ronnie Pennington Calcium [Mass/Vol] 9.2 mg/dL Normal 8.5-10.1 [facility] Comment on above: Performed By: #### C MP, MG #### [facility] [address] [place] [address] Dr. Ronnie Pennington Chloride [Moles/Vol] 105 mmol/L Normal 98-107 [facility] Comment on above: Performed By: #### C MP, MG #### [facility] [address] [place] [address] Dr. Ronnie Pennington CO2 [Moles/Vol] 28.1 mmol/L Normal 21.0-32.0 [facility] Comment on above: Performed By: #### C MP, MG #### [facility] [address] [place] [address] Dr. Ronnie Pennington Creatinine [Mass/Vol] 2.14 mg/dL Critically high 0.70-1.30 [facility] Comment on above: Performed By: #### C MP, MG #### [facility] [address] [place] [address] Dr. Ronnie Pennington EGFR-AF [place] 36 mL/min/1.73m2 Critically low >=60 [facility] Comment on above: Performed By: #### C MP, MG #### [facility] [address] [place] [address] Dr. Ronnie Pennington EGFR-NON AF [place] 30 mL/min/1.73m2 Critically low >=60 [facility] Comment on above: Performed By: #### C MP, MG #### [facility] [address] [place] [address] Dr. Ronnie Pennington Globulin (S) [Mass/Vol] 4.0 g/dL Normal [facility] Comment on above: Performed By: #### C MP, MG #### [facility] [address] [place] [address] Dr. Ronnie Pennington Glucose [Mass/Vol] 150 mg/dL Critically high 74-106 [facility] Comment on above: Performed By: #### C MP, MG #### [facility] [address] [place] [address] Dr. Ronnie Pennington Potassium [Moles/Vol] 4.2 mmol/L Normal 3.5-5.1 [facility] Comment on above: Performed By: #### C MP, MG #### [facility] [address] [address] [address] Ronnie Pennington Protein [Mass/Vol] 6.9 g/dL Normal 6.4-8.2 [facility] Comment on above: Performed By: #### C MP, MG #### [facility] [address] [address] [address] Ronnie Pennington Sodium [Moles/Vol] 144 mmol/L Normal 136-145 [facility] Comment on above: Performed By: #### C MP, MG #### [facility] [address] [address] [address] Ronnie Pennington Urea nitrogen [Mass/Vol] 32.0 mg/dL Critically high 7.0-18.0 [facility] Comment on above: Performed By: #### C MP, MG #### [facility] [address] [address] [address] Ronnie Pennington Urea nitrogen/Creatinine [Mass ratio] 15.0 mg/mg Normal [facility] Comment on above: Performed By: #### C MP, MG #### [facility] [address] [address] [address] Ronnie Pennington Transplant SW Assessment Upd [...] Jul 15 2022 12:57PM EST (Author) Normal [facility] Consultation Noteon 06-10-19 Consultation Note [id number] [facility] TSHon 06-05-2022 TSH 3.293 uIU/mL Normal 0.358-3.74 0 [facility] Comment on above: Performed By: #### T SH #### [facility] [address] [address] [address] Ronnie Pennington Cult,Woundon 04-19-2022 Cult,Wound Specimen [...] Tetracycline <=1 SUSCEPTIBLE Trimethoprim/Sulfa <=10 SUSCEPTIBLE Susceptible [facility] Comment on above: Performed By: #### W DC #### [id number] [place] [address] [employer] Manager: David Gonzalez MD PROF CHEM 8 ([facility])on Anion gap [Moles/Vol] 14.9 mmol/L Normal [facility] Comment on above: Performed By: #### B MP #### [facility] [address] [place] [address] Dr. Ronnie Pennington Calcium [Mass/Vol] 8.8 mg/dL Normal 8.5-10.1 [facility] Comment on above: Performed By: #### B MP #### [facility] [address] [place] [address] Dr. Ronnie Pennington Chloride [Moles/Vol] 104 mmol/L Normal 98-107 [facility] Comment on above: Performed By: #### B MP #### [facility] [address] [place] [address] Dr. Ronnie Pennington CO2 [Moles/Vol] 26.6 mmol/L Normal 21.0-32.0 [facility] Comment on above: Performed By: #### B MP #### [facility] [address] [address] [address] Ronnie Pennington Creatinine [Mass/Vol] 2.03 mg/dL Critically high 0.70-1.30 [facility] Comment on above: Performed By: #### B MP #### [facility] [address] [address] [address] Ronnie Pennington EGFR-AF [place] 39 mL/min/1.73m2 Critically low >=60 [facility] Comment on above: Performed By: #### B MP #### [facility] [address] [address] [address] Ronnie Pennington EGFR-NON AF [place] 32 mL/min/1.73m2 Critically low >=60 [facility] Comment on above: Performed By: #### B MP #### [facility] [address] [address] [address] Ronnie Pennington Glucose [Mass/Vol] 209 mg/dL Critically high 74-106 [facility] Comment on above: Performed By: #### B MP #### [facility] [address] [address] [address] Ronnie Pennington Potassium [Moles/Vol] 4.5 mmol/L Normal 3.5-5.1 [facility] Comment on above: Performed By: #### B MP #### [facility] [address] [address] [address] Ronnie Pennington Sodium [Moles/Vol] 141 mmol/L Normal 136-145 [facility] Comment on above: Performed By: #### B MP #### [facility] [address] [address] [address] Ronnie Pennington Urea nitrogen [Mass/Vol] 26.0 mg/dL Critically high 7.0-18.0 [facility] Comment on above: Performed By: #### B MP #### [facility] [address] [address] [address] Ronnie Pennington Urea nitrogen/Creatinine [Mass ratio] 12.8 mg/mg Normal [facility] Comment on above: Performed By: #### B #### [facility] [address] [place], [place] [address] Dr. Ronnie Pennington Office Visit (Cardiology)on 10-15-2021 [...] last office visit; documented BPs at the [facility] 120-130s/70-80s. Benadryl 25 mg q6h PRN [...] Oral TabletTak (more content not included)... Normal [employer].com XR MODIFIED BARIUM SWALLOWon 08-05-2021 XR MODIFIED [...] Normal [facility] CBC AND DIFFERENTIALon 07-13 % AUTOMATED IMMATURE GRAN 0.5 % Normal 0.0 - 0.9 [facility] Comment on above: Result Comment: Christal ture Granulocyte Count (IG) includes promyelocytes, myelocytes and metamyelocytes but does not include bands. Percent differential counts (%) should be interpreted in the context of the absolute cell counts (cells/L). Performed By: #### C BCDF #### [address] [address] Basophils (Bld) [#/Vol] 0.02 10*3/uL Normal 0.00 - 0.10 [facility] Comment on above: Performed By: #### C BCDF #### [address] [address] Basophils/100 WBC (Bld) 0.3 % Normal 0.0 - 2.0 [facility] Comment on above: Performed By: #### C BCDF #### [address] [address] Eosinophils (Bld) [#/Vol] 0.07 10*3/uL Normal 0.00 - 0.40 [facility] Comment on above: Performed By: #### C BCDF #### [address] [address] Eosinophils/100 WBC (Bld) 0.9 % Normal 0.0 - 6.0 [facility] Comment on above: Performed By: #### C BCDF #### [address] [address] Erythrocyte distribution width (RBC) [Ratio] 14.4 % Normal 11.5 - 14.5 [facility] Comment on above: Performed By: #### C BCDF #### [address] [place] [address] Hematocrit (Bld) [Volume fraction] 35.5 % Low 41.0 - 52.0 [facility] Comment on above: Performed By: #### C BCDF #### [address] [place] [address] Hemoglobin (Bld) [Mass/Vol] 10.8 g/dL Low 13.5 - 17.5 [facility] Comment on above: Performed By: #### C BCDF #### [address] [place] [address] Lymphocytes (Bld) [#/Vol] 0.42 10*3/uL Low 0.80 - 3.00 [facility] Comment on above: Performed By: #### C BCDF #### [address] [place] [address] Lymphocytes/100 WBC (Bld) 5.6 % Normal 13.0 - 44.0 [facility] Comment on above: Performed By: #### C BCDF #### [address] [place] [address] MCHC (RBC) [Mass/Vol] 30.4 g/dL Low 32.0 - 36.0 [facility] Comment on above: Performed By: #### C BCDF #### [address] [address] MCV (RBC) [Entitic vol] 89 fL Normal 80 - 100 [facility] Comment on above: Performed By: #### C BCDF #### [address] [address] Monocytes (Bld) [#/Vol] 0.07 10*3/uL Normal 0.05 - 0.80 [facility] Comment on above: Performed By: #### C BCDF #### [address] [address] Monocytes/100 WBC (Bld) 0.9 % Normal 2.0 - 10.0 [facility] Comment on above: Performed By: #### C BCDF #### [address] [address] Neutrophils (Bld) [#/Vol] 6.82 10*3/uL High 1.60 - 5.50 [facility] Comment on above: Performed By: #### C BCDF #### [address] [address] Neutrophils/100 WBC (Bld) 91.8 % Normal 40.0 - 80.0 [facility] Comment on above: Performed By: #### C BCDF #### [address] [address] NUCLEATED RBC 0.0 /100 WBC Normal 0.0 - 0.0 [facility] Comment on above: Performed By: #### C BCDF #### [address] [address] Platelets (Bld) [#/Vol] 161 10*3/uL Normal 150 - 450 [facility] Comment on above: Performed By: #### C BCDF #### [address] [address] RBC 3.98 x10E12/L Low 4.50 - 5.90 [facility] Comment on above: Performed By: #### C BCDF #### [address] [address] WBC (Bld) [#/Vol] 7.4 10*3/uL Normal 4.4 - 11.3 [facility] Comment on above: Performed By: #### C BCDF #### [address] [address] Complete Blood Count + Diffe rentialon 07-13-2021 Basophils/100 WBC (Bld) 0.3 % 0.0 - 2.0 [facility] [address] [place] Work Phone: Erythrocyte distribution width (RBC) [Ratio] 14.4 % See Below [facility] [employer] [address] [place] Work Phone: Comment on above: Reference Range: 11. 5 - 14.5 Hematocrit (Bld) [Volume fraction] 35.5 % below low threshold See Below [facility] [address] [place] Work Phone: Comment on [...] 161 10*3/uL 150 - 450 [facility] [address] [place] Work Phone: RBC (Bld) [#/Vol] 3.98 {x10E12/L} below low threshold See Below [facility] [address] [place] Work Phone: Comment on above: Reference Range: 4.5 0 - 5.90 WBC (Bld) [#/Vol] 7.4 10*3/uL 4.4 - 11.3 [facility] [address] [place] Work Phone: Complete Blood Count + Differential 0.02 {x10E9/L} See Below [facility] [address] [place] Work Phone: Comment on above: Reference Range: 0.0 0 - 0.10 Complete Blood Count + Differential 0.07 {x10E9/L} See Below [facility] [address] [place] Work Phone: Comment on above: Reference Range: 0.0 0 - 0.40 Reference Range: 0.0 5 - 0.80 Complete Blood Count + Differential 0.42 {x10E9/L} below low threshold See Below [facility] [address] [place] Work Phone: Comment on above: Reference Range: 0.8 0 - 3.00 Complete Blood Count + Differential 6.82 {x10E9/L} above high threshold See Below [facility] [address] [place] Work Phone: Comment on above: Reference Range: 1.6 0 - 5.50 Complete Blood Count + Differential 0.9 % 0.0 - 6.0 [facility] [address] [place] Work Phone: Complete Blood Count + Differential 0.5 % 0.0 - 0.9 [facility] [address] [place] Work Phone: Comment on above: Immature Granulocyte Count (IG) includes promyelocytes, myelocytes and metamyelocytes but does not include bands. Percent differential counts (%) should be interpreted in the context of the absolute cell counts (cells/L). Complete Blood Count + Differential 0.0 {/100_WBC} 0.0 - 0.0 [facility] [address] [place] Work Phone: Coronavirus 2019 RNA by PCR, Symptomaticon 07-03-2021 Date and time of symptom onset [id number] [facility] [address] [place] Work Phone: Coronavirus 2019 RNA by PCR, Symptomatic Not detected Normal See Below [facility] [address] [place] Work Phone: Comment on above: SOURCE: Nasal, Nasop haryngealReference Range: Not Detected.This test has received FDA Emergency Use Authorization (EUA) and has been verified by [facility] ([facility]). This test is only authorized for the duration of time that circumstances exist to justify the authorization of the emergency use of in vitro diagnostic tests for the detection of SARS-CoV-2 virus and/or diagnosis of COVID-19 infection under section 564(b)(1) of the Act, 21 U.S.C. 360bbb-3(b)(1), unless the authorization is terminated or revoked sooner. [facility] is certified under CLIA-88 as qualified to perform high complexity testing. Testing is performed in the [facility] located at [address] [place] [address].SARS-CoV-2/Flu/RSV Multiplex Test: Fact sheet for providers: https://www.fda.gov/media/162131/downloadFact sheet for patients: https://www.fda.gov/media/744242/download Laboratory - Chemistry and C hemistry - challengeon 07-03-2021 Glucose [Mass/Vol] 330 mg/dL above high threshold 74 - 99 [facility] [address] [place] Work Phone: Glucose [Mass/Vol] [...] mmol/L 21 - 32 [facility] [address] [place] Work Phone: Creatinine [Mass/Vol] 1.80 mg/dL above high threshold See Below [facility] [address] [place] Work Phone: Comment on above: Reference Range: 0.5 0 - 1.30 Glucose [Mass/Vol] 246 mg/dL above high threshold 74 - 99 [facility] [address] [place] Work Phone: Potassium [Moles/Vol] 3.9 mmol/L 3.5 - 5.3 [facility] [address] [place] Work Phone: [phone] Sodium [Moles/Vol] 138 mmol/L 136 - 145 [facility] [address] [place] Work Phone: Urea nitrogen [...] below low threshold See Below [facility] [address] [place] Work Phone: Comment on above: Reference Range: 41. 0 - 52.0 Hemoglobin (Bld) [Mass/Vol] 10.8 g/dL below low threshold See Below [facility] [address] [place] Work Phone: Comment on above: Reference Range: 13. 5 - 17.5 MCHC (RBC) [Mass/Vol] 30.8 g/dL below low threshold See Below [facility] [address] [place] Work Phone: Comment on above: Reference Range: 32. 0 - 36.0 MCV (RBC) [Entitic vol] 89 fL 80 - 100 [facility] [address] [place] Work Phone: Platelets (Bld) [#/Vol] 171 10*3/uL 150 - 450 [facility] [address] [place] Work Phone: RBC (Bld) [#/Vol] 3.94 {x10E12/L} below low threshold See Below [facility] [address] [place] Work Phone: Comment on above: Reference Range: 4.5 0 - 5.90 WBC (Bld) [#/Vol] 6.0 10*3/uL 4.4 - 11.3 [facility] [address] [place] Work Phone: No Panel Informationon 07-03 38 {mL/min/1.73m2} Abnormal >90 [facility] [address] [place] Work Phone: Comment on above: CALCULATIONS OF ERNST MATED GFR ARE PERFORMED USING THE 2020 CKD-EPI STUDY REFIT EQUATION WITHOUT THE RACE VARIABLE FOR THE IDMS-TRACEABLE CREATININE METHODS.https://jasn.asnjournals.org/content/early// ASN.1881827096 0.0 {/100_WBC} 0.0-0.0 [facility] [address] [place] Work Phone: Tacrolimuson 07-03-2021 Tacrolimus (Bld) [Mass/Vol] 5.5 ng/mL 2.0 - 15.0 [facility] [address] [place] Work Phone: Comment on above: NOTE: Result was obt ained using a chemiluminescent microparticle immunoassay (CMIA) on the Salesman/Owner i system.Optimal therapeutic ranges for immuno-suppressant drugs [...] high threshold 74 - 99 [facility] [address] [place] Work Phone: [phone] Glucose [Mass/Vol] 286 mg/dL above high threshold 74 - 99 [facility] [address] [place] Work Phone: [phone] Glucose [Mass/Vol] 269 mg/dL above high threshold 74 - 99 [facility] [address] [place] Work Phone: [phone] Anion gap [Moles/Vol] 15 mmol/L 10 - 20 [facility] [address] [place] Work Phone: [phone] Calcium [Mass/Vol] 9.1 mg/dL 8.6 - 10.6 [facility] [address] [place] Work Phone: [phone] Chloride [Moles/Vol] 102 mmol/L 98 - 107 [facility] [address] [place] Work Phone: [phone] CO2 [Moles/Vol] 27 mmol/L 21 - 32 [facility] [address] [place] Work Phone: [phone] Creatinine [Mass/Vol] 1.97 mg/dL above high threshold See Below [facility] [address] [place] Work Phone: [phone] Comment on above: Reference Range: 0.5 0 - 1.30 Glucose [Mass/Vol] 197 mg/dL above high threshold 74 - 99 [facility] [address] [place] Work Phone: Potassium [Moles/Vol] 4.1 mmol/L 3.5 - 5.3 [facility] [address] [place] Work Phone: Sodium [Moles/Vol] 140 mmol/L 136 - 145 [facility] [address] [place] Work Phone: Urea nitrogen [Mass/Vol] 41 mg/dL above high threshold 6 - 23 [facility] [address] [place] Work Phone: Glucose [Mass/Vol] 201 mg/dL above high threshold 74 - 99 [facility] [address] [place] Work Phone: Laboratory - Hematology and Cell countson 07-02-2021 Erythrocyte distribution width (RBC) [Ratio] 14.1 % See Below [facility] [address] [place] Work Phone: Comment on above: Reference Range: 11. 5 - 14.5 Hematocrit (Bld) [Volume fraction] 33.6 % below low threshold See Below [facility] [address] [place] Work Phone: Comment on [...] 160 10*3/uL 150 - 450 [facility] [address] [place] Work Phone: RBC (Bld) [...] RACE VARIABLE FOR THE IDMS-TRACEABLE CREATININE METHODS.https://jasn.asnjournals.org/content/// ASN.6114813744 0.0 {/100_WBC} 0.0-0.0 [facility] [address] [place] Work Phone: Tacrolimuson 07-02-2021 Tacrolimus (Bld) [Mass/Vol] 7.6 ng/mL 2.0 - 15.0 [facility] [address] [place] Work Phone: Comment on above: NOTE: Result was obt ained using a chemiluminescent microparticle immunoassay (CMIA) on the Salesman/Owner i system.Optimal therapeutic ranges for immuno-suppressant drugs depend upon an individualpatient's current clinical state, type oforgan transplant, time post-transplant,co-administration of other immunosuppressants,and other clinical factors. The results ofthis test should be correlated with additionalclinical and laboratory data before changesin treatment regimens are made. Hemoglobin A1Con 07-01-2021 Glucose [Mass/Vol] 194 mg/dL [facility] [address] [place] Work Phone: HbA1c (Bld) [...] 13-18 <7.5 7-12 <8.0 0- 6 7.5-8.5 [employer]. Diabetes Care 33(S1), Mar 2009. Laboratory - Chemistry and C hemistry - challengeon 07-01-2021 Glucose [Mass/Vol] 188 mg/dL above high threshold 74 - 99 [facility] [address] [place] Work Phone: Glucose [Mass/Vol] [...] mmol/L 21 - 32 [facility] [address] [place] Work Phone: Creatinine [Mass/Vol] 1.99 mg/dL above high threshold See Below [facility] [address] [place] Work Phone: Comment on above: Reference Range: 0.5 0 - 1.30 Glucose [Mass/Vol] 227 mg/dL above high threshold 74 - 99 [facility] [address] [place] Work Phone: Glucose [Mass/Vol] 243 mg/dL above high threshold 74 - 99 [facility] [address] [place] Work Phone: Potassium [Moles/Vol] 4.0 mmol/L 3.5 - 5.3 [facility] [address] [place] Work Phone: Sodium [Moles/Vol] 141 mmol/L 136 - 145 [facility] [address] [place] Work Phone: Urea nitrogen [Mass/Vol] 38 mg/dL above high threshold 6 - 23 [facility] [address] [place] Work Phone: Laboratory - [...] below low threshold See Below [facility] [address] [place] Work Phone: Comment on above: Reference Range: 32. 0 - 36.0 MCV (RBC) [Entitic vol] 90 fL 80 - 100 [facility] [address] [place] Work Phone: Platelets (Bld) [#/Vol] 157 10*3/uL 150 - 450 [facility] [address] [place] Work Phone: RBC (Bld) [#/Vol] 3.83 {x10E12/L} below low threshold See Below [facility] [address] [place] Work Phone: Comment on above: Reference Range: 4.5 0 - 5.90 WBC (Bld) [#/Vol] 6.8 10*3/uL 4.4 - 11.3 [facility] [address] [place] Work Phone: No Panel Informationon 07-01 34 {mL/min/1.73m2} Abnormal >90 [facility] [address] [place] Work Phone: Comment on above: CALCULATIONS OF ERNST MATED GFR ARE PERFORMED USING THE 2020 CKD-EPI STUDY REFIT EQUATION WITHOUT THE RACE VARIABLE FOR THE IDMS-TRACEABLE CREATININE METHODS.https://jasn.asnjournals.org/content// ASN.9577361973 0.0 {/100_WBC} 0.0-0.0 [facility] [address] [place] Work Phone: Tacrolimuson 07-01-2021 Tacrolimus (Bld) [Mass/Vol] 9.3 ng/mL 2.0 - 15.0 [facility] [address] [place] Work Phone: Comment on above: NOTE: Result was obt ained using a chemiluminescent microparticle immunoassay (CMIA) on the Salesman/Owner i system.Optimal therapeutic ranges for immuno-suppressant drugs [...] high threshold 74 - 99 [facility] [address] [place] Work Phone: [phone] Glucose [Mass/Vol] 236 mg/dL above high threshold 74 - 99 [facility] [address] [place] Work Phone: [phone] Anion gap [Moles/Vol] 17 mmol/L 10 - 20 [facility] [address] [place] Work Phone: [phone] Calcium [Mass/Vol] 8.6 mg/dL 8.6 - 10.6 [facility] [address] [place] Work Phone: [phone] Chloride [Moles/Vol] 100 mmol/L 98 - 107 [facility] [address] [place] Work Phone: [phone] CO2 [Moles/Vol] 28 mmol/L 21 - 32 [facility] [address] [place] Work Phone: [phone] Creatinine [Mass/Vol] 2.26 mg/dL above high threshold See Below [facility] [address] [place] Work Phone: [phone] Comment on above: Reference Range: 0.5 0 - 1.30 Glucose [Mass/Vol] 205 mg/dL above high threshold 74 - 99 [facility] [address] [place] Work Phone: [phone] Potassium [Moles/Vol] 3.8 mmol/L 3.5 - 5.3 [facility] [address] [place] Work Phone: Sodium [Moles/Vol] 141 mmol/L 136 - 145 [facility] [address] [place] Work Phone: Urea nitrogen [Mass/Vol] 39 mg/dL above high threshold 6 - 23 [facility] [address] [place] Work Phone: Laboratory - Hematology and Cell countson 06-30-2021 Erythrocyte distribution width (RBC) [Ratio] 14.3 % See Below [facility] [address] [place] Work Phone: Comment on above: Reference Range: 11. 5 - 14.5 Hematocrit (Bld) [Volume fraction] 33.5 % below low threshold See Below [facility] [address] [place] Work Phone: Comment on above: Reference Range: 41. 0 - 52.0 Hemoglobin (Bld) [Mass/Vol] 10.5 g/dL below low threshold See Below [facility] [address] [place] Work Phone: Comment on above: Reference Range: 13. 5 - 17.5 MCHC (RBC) [Mass/Vol] 31.3 g/dL below low threshold See Below [facility] [address] [place] Work Phone: Comment on above: Reference Range: 32. 0 - 36.0 MCV (RBC) [Entitic vol] 91 fL 80 - 100 [facility] [address] [place] Work Phone: Platelets (Bld) [#/Vol] 141 10*3/uL below lo w threshold 150 - 450 [facility] [address] [place] Work Phone: RBC (Bld) [#/Vol] 3.70 {x10E12/L} below low threshold See Below [facility] [address] [place] Work Phone: Comment on above: Reference Range: 4.5 0 - 5.90 WBC (Bld) [#/Vol] 8.2 10*3/uL 4.4 - 11.3 [facility] [address] [place] Work Phone: No Panel Informationon 06-30 29 {mL/min/1.73m2} Abnormal >90 [facility] [address] [place] Work Phone: Comment on above: CALCULATIONS OF ERNST MATED GFR ARE PERFORMED USING THE 2020 CKD-EPI STUDY REFIT EQUATION WITHOUT THE RACE VARIABLE FOR THE IDMS-TRACEABLE CREATININE METHODS.https://jasn.asnjournals.org/content/early/ ASN.6995341346 0.0 {/100_WBC} 0.0-0.0 [facility] [address] [place] Work Phone: Tacrolimuson 06-30-2021 Tacrolimus (Bld) [Mass/Vol] 7.7 ng/mL 2.0 - 15.0 [facility] [address] [place] Work Phone: Comment on above: NOTE: Result was obt ained using a chemiluminescent microparticle immunoassay (CMIA) on the Salesman/Owner i system.Optimal therapeutic ranges for immuno-suppressant drugs [...] high threshold 74 - 99 [facility] [address] [place] Work Phone: [phone] Glucose [Mass/Vol] 283 mg/dL above high threshold 74 - 99 [facility] [address] [place] Work Phone: [phone] Anion gap [Moles/Vol] 16 mmol/L 10 - 20 [facility] [address] [place] Work Phone: [phone] Calcium [Mass/Vol] 8.7 mg/dL 8.6 - 10.6 [facility] [address] [place] Work Phone: [phone] Chloride [Moles/Vol] 104 mmol/L 98 - 107 [email or web address] [address] [place] Work Phone: [phone] CO2 [Moles/Vol] 28 mmol/L 21 - 32 [facility] [address] [place] Work Phone: [phone] Creatinine [Mass/Vol] 1.97 mg/dL above high threshold See Below [facility] [address] [place] Work Phone: [phone] Comment on above: Reference Range: 0.5 0 - 1.30 Glucose [Mass/Vol] 185 mg/dL above high threshold 74 - 99 [facility] [address] [place] Work Phone: [phone] Potassium [Moles/Vol] 3.9 mmol/L 3.5 - 5.3 [facility] [address] [place] Work Phone: [phone] Sodium [Moles/Vol] 144 mmol/L 136 - 145 [facility] [address] [place] Work Phone: [phone] Urea nitrogen [Mass/Vol] 35 mg/dL above high threshold 6 - 23 [facility] [address] [place] Work Phone: [phone] Glucose [Mass/Vol] 186 mg/dL above high threshold 74 - 99 [facility] [address] [place] Work Phone: Laboratory - Hematology and Cell countson 06-29-2021 Erythrocyte distribution width (RBC) [Ratio] 14.3 % See Below [facility] [address] [place] Work Phone: Comment on above: Reference Range: 11. 5 - 14.5 Hematocrit (Bld) [Volume fraction] 35.8 % below low threshold See Below [facility] [address] [place] Work Phone: Comment on above: Reference Range: 41. 0 - 52.0 Hemoglobin (Bld) [Mass/Vol] 11.0 g/dL below low threshold See Below [facility] [address] [place] Work Phone: Comment on above: Reference Range: 13. 5 - 17.5 MCHC (RBC) [Mass/Vol] 30.7 g/dL below low threshold See Below [facility] [address] [place] Work Phone: Comment on above: Reference Range: 32. 0 - 36.0 MCV (RBC) [Entitic vol] 90 fL 80 - 100 [facility] [address] [place] Work Phone: Platelets (Bld) [#/Vol] 142 10*3/uL below lo w threshold 150 - 450 [facility] [address] [place] Work Phone: RBC (Bld) [#/Vol] 3.96 {x10E12/L} below low threshold See Below [facility] [address] [place] Work Phone: Comment on above: Reference Range: 4.5 0 - 5.90 WBC (Bld) [#/Vol] 7.0 10*3/uL 4.4 - 11.3 [facility] [address] [place] Work Phone: Magnesium, Serumon Magnesium [Mass/Vol] 1.80 mg/dL See Below [facility] [address] [place] Work Phone: Comment on above: Reference Range: 1.6 0 - 2.40 No Panel Informationon 06-29 34 {mL/min/1.73m2} Abnormal >90 [facility] [address] [place] Work Phone: Comment on above: CALCULATIONS OF ERNST MATED GFR ARE PERFORMED USING THE 2020 CKD-EPI STUDY REFIT EQUATION WITHOUT THE RACE VARIABLE FOR THE IDMS-TRACEABLE CREATININE METHODS.https://jasn.asnjournals.org/content/early// ASN.6145818471 0.0 {/100_WBC} 0.0-0.0 [facility] [address] [place] Work Phone: Tacrolimuson 06-29-2021 Tacrolimus (Bld) [Mass/Vol] 8.4 ng/mL 2.0 - 15.0 [facility] [address] [place] Work Phone: Comment on above: NOTE: Result was obt ained using a chemiluminescent microparticle immunoassay (CMIA) on the Salesman/Owner i system.Optimal therapeutic ranges for immuno-suppressant drugs [...] high threshold 74 - 99 [facility] [address] [place] Work Phone: Glucose [Mass/Vol] 215 mg/dL above high threshold 74 - 99 [facility] [address] [place] Work Phone: Anion gap [Moles/Vol] 14 mmol/L 10 - 20 [facility] [address] [place] Work Phone: [phone] Calcium [Mass/Vol] 8.5 mg/dL below low threshold 8.6 - 10.6 [facility] [address] [place] Work Phone: [phone] Chloride [Moles/Vol] 105 mmol/L 98 - 107 [facility] [address] [place] Work Phone: [phone] CO2 [Moles/Vol] 29 mmol/L 21 - 32 [facility] [address] [place] Work Phone: [phone] Creatinine [Mass/Vol] 1.96 mg/dL above high threshold See Below [facility] [address] [place] Work Phone: [phone] Comment on above: Reference Range: 0.5 0 - 1.30 Glucose [Mass/Vol] 159 mg/dL above high threshold 74 - 99 [facility] [address] [place] Work Phone: [phone] Potassium [Moles/Vol] 3.8 mmol/L 3.5 - 5.3 [facility] [address] [place] Work Phone: [phone] Sodium [Moles/Vol] 144 mmol/L 136 - 145 [facility] [address] [place] Work Phone: [phone] Urea [...] [Ratio] 14.3 % See Below [facility] [address] [place] Work Phone: [phone] Comment on above: Reference Range: 11. 5 - 14.5 Hematocrit (Bld) [Volume fraction] 33.8 % below low threshold See Below [facility] [address] [place] Work Phone: Comment on above: Reference Range: 41. 0 - 52.0 Hemoglobin (Bld) [Mass/Vol] 10.4 g/dL below low threshold See Below [facility] [address] [place] Work Phone: Comment on above: Reference Range: 13. 5 - 17.5 MCHC (RBC) [Mass/Vol] 30.8 g/dL below low threshold See Below [facility] [address] [place] Work Phone: Comment on above: Reference Range: 32. 0 - 36.0 MCV (RBC) [Entitic vol] 90 fL 80 - 100 [facility] [address] [place] Work Phone: Platelets (Bld) [#/Vol] 133 10*3/uL below lo w threshold 150 - 450 [facility] [address] [place] Work Phone: RBC (Bld) [#/Vol] 3.75 {x10E12/L} below low threshold See Below [facility] [address] [place] Work Phone: Comment on above: Reference Range: 4.5 0 - 5.90 WBC (Bld) [#/Vol] 5.7 10*3/uL 4.4 - 11.3 [facility] [address] [place] Work Phone: Lactate, Levelon 06-28-2021 Lactate [Moles/Vol] 0.6 mmol/L 0.4 - 2.0 [facility] [address] [place] Work Phone: Comment on above: [...] RACE VARIABLE FOR THE IDMS-TRACEABLE CREATININE METHODS.https://jasn.asnjournals.org/content/early/ ASN.0092211129 0.0 {/100_WBC} 0.0-0.0 [facility] [address] [place] Work Phone: Tacrolimuson 06-28-2021 Tacrolimus (Bld) [Mass/Vol] 10.4 ng/mL 2.0 - 15.0 [facility] [address] [place] Work Phone: Comment on above: NOTE: Result was obt ained using a chemiluminescent microparticle immunoassay (CMIA) on the Salesman/Owner i system.Optimal therapeutic ranges for immuno-suppressant drugs depend upon an individualpatient's current clinical state, type oforgan transplant, time post-transplant,co-administration of other immunosuppressants,and other clinical factors. The results ofthis test should be correlated with additionalclinical and laboratory data before changesin treatment regimens are made. Complete Blood Count + Diffe rentialon 06-27-2021 Basophils/100 WBC (Bld) 0.5 % 0.0 - 2.0 [facility] [address] [place] Work Phone: Erythrocyte distribution width (RBC) [Ratio] 14.3 % See Below [facility] [address] [place] Work Phone: Comment on above: Reference Range: 11. 5 - 14.5 Hematocrit (Bld) [Volume fraction] 33.6 % below low threshold See Below [facility] [address] [place] Work Phone: Comment on above: Reference Range: 41. 0 - 52.0 Hemoglobin (Bld) [Mass/Vol] 10.3 g/dL below low threshold See Below [facility] [address] [place] Work Phone: Comment on above: Reference Range: 13. 5 - 17.5 Lymphocytes/100 WBC (Bld) 13.1 % See Below [facility] [address] [place] Work Phone: [phone] Comment on above: Reference Range: 13. 0 - 44.0 MCHC (RBC) [Mass/Vol] 30.7 g/dL below low threshold See Below [facility] [address] [place] Work Phone: [phone] Comment on above: Reference Range: 32. 0 - 36.0 MCV (RBC) [Entitic vol] 92 fL 80 - 100 [facility] [address] [place] Work Phone: [phone] Monocytes/100 WBC (Bld) 9.0 % 2.0 - 10.0 [facility] [address] [place] Work Phone: [phone] Neutrophils/100 WBC (Bld) 72.5 % See Below [facility] [address] [place] Work Phone: [phone] Comment on above: Reference Range: 40. 0 - 80.0 Platelets (Bld) [#/Vol] 137 10*3/uL below lo w threshold 150 - 450 [facility] [address] [place] Work Phone: [phone] RBC (Bld) [#/Vol] 3.67 {x10E12/L} below low threshold See Below [facility] [address] [place] Work Phone: [phone] Comment on above: Reference Range: 4.5 0 - 5.90 WBC (Bld) [#/Vol] 6.4 10*3/uL 4.4 - 11.3 [facility] [address] [place] Work Phone: [phone] Complete Blood Count + Differential 0.03 {x10E9/L} See Below [facility] [address] [place] Work Phone: Comment on [...] on 06-27-2021 Glucose [Mass/Vol] 263 mg/dL [facility] Comment on above: Random Glucose Refer [...] 57 U/L 33 - 136 [facility] [address] [place] Work Phone: ALT With P-5'-P [Catalytic activity/Vol] 4 U/L below low threshold 10 - 52 [facility] [address] [place] Work Phone: Comment on above: Patients treated wit h Sulfasalazine may generate falsely decreased results for ALT. Anion gap [Moles/Vol] 18 mmol/L 10 - 20 [facility] [address] [place] Work Phone: AST With P-5'-P [Catalytic activity/Vol] 10 U/L 9 - 39 [facility] [address] [place] Work Phone: Bilirubin [Mass/Vol] 0.3 mg/dL 0.0 - 1.2 [facility] [address] [place] Work Phone: Calcium [Mass/Vol] 8.3 mg/dL below low threshold 8.6 - 10.6 [facility] [address] [place] Work Phone: Chloride [Moles/Vol] [...] high threshold 74 - 99 [facility] [address] [place] Work Phone: Potassium [Moles/Vol] 3.7 mmol/L 3.5 - 5.3 [facility] [address] [place] Work Phone: Protein [Mass/Vol] 5.7 g/dL below low threshold 6.4 - 8.2 [facility] [address] [place] Work Phone: Sodium [Moles/Vol] 142 mmol/L 136 - 145 [facility] [address] [place] Work Phone: Urea nitrogen [Mass/Vol] 37 mg/dL above high threshold 6 - 23 [facility] [address] [place] Work Phone: Glucose [Mass/Vol] 178 mg/dL above high threshold 74 - 99 [facility] [address] [place] Work Phone: Glucose [Mass/Vol] [...] RACE VARIABLE FOR THE IDMS-TRACEABLE CREATININE METHODS.https://jasn.asnjournals.org/content// ASN.1749117628 No Panel InformationOrdered By: Yoshi Wu on 06-27-2021 Bedside Glucose Comment Glu2: cleaned [facility] Automated erythrocytes count in urine sediment (number/area)Ordered By: Audra Quinteros on 06-26-2021 RBC Auto (Urine sed) [#/Area] 0-1 [HPF] [facility] Automated leukocytes count i n urine sediment (number/area)Ordered By: Audra Quinteros on 06-26-2021 WBC Auto (Urine sed) [#/Area] 0-1 [HPF] [facility] Bilirubin Test strip Ql (U)O rdered By: Audra Quinteros on 06-26-2021 Bilirubin Ql (U) Negative Negative [facility] COVID-19 Positive/NegativeOr dered By: Omid Myrick on 06-26-2021 SARS-CoV-2 (COVID-19) N gene JOYCE+probe Ql (Resp) Negative Negative [facility] Comment on above: Testing for SARS-CoV -2 by RT-PCRThis test was developed and its performance characteristics determined by [employer] and validated at the [facility]. This test has not been FDA [...] Quinteros on 06-26-2021 Color (U) Yellow Yellow [facility] Creatinine [Mass/volume] in UrineOrdered By: Audra Quinteros on 06-26-2021 Creatinine (U) [Mass/Vol] 71.5 mg/dL [facility] Comment on above: No reference range e stablished Creatinine and Glomerular fi ltration rate.predicted panel (S/P/Bld)Ordered By: Audra Quinteros on 06-26-2021 Creatinine [Mass/Vol] 1.99 mg/dL 0.64-1.[address] [facility] Estimated glomerular filtrat ion rate (GFR) non- AmericanOrdered By: Audra Quinteros on 06-26-2021 GFR/1.73 sq M.predicted among non-blacks MDRD (S/P/Bld) [Vol rate/Area] 33 mL/Min [facility] Ketones Auto test strip (U) [Mass/Vol]Ordered By: Audra Quinteros on 06-26-2021 Ketones (U) [Mass/Vol] Negative Negative [facility] Laboratory - Microbiology an d Antimicrobial susceptibilityOrdered By: Omid Myrick on 06-26-2021 SARS-CoV-2 (COVID-19) RNA JOYCE+probe Ql (Unsp spec) N/A [facility] Laboratory - UrinalysisOrder ed By: Audra Quinteros on 06-26-2021 Hyaline casts LM Ql (Urine sed) 0-8 [LPF] [facility] Nitrite Test strip Ql (U)Ord ered By: Audra Quinteros on 06-26-2021 Nitrite Ql (U) Negative Negative [facility] No Panel InformationOrdered By: Audra Quinteros on 06-26-2021 Estimated GFR () 40 mL/Min [facility] Comment on above: GFR estimated refere nce range: According to KDOQI guidelines, <60 ml/min/1.73m2 is sufficient to diagnose a patient with chronic kidney disease. Pharmacy Creatinine Clearance (Chem 39.80 [facility] Protein Auto test strip (U) [Mass/Vol]Ordered By: Audra Quinteros on 06-26-2021 Protein (U) [Mass/Vol] 300 mg/dL Negative [facility] Serum or plasma calcium abhijit urement (mass/volume)Ordered By: Audra Quinteros on 06-26-2021 Calcium [Mass/Vol] 8.9 mg/dL 8.2-10.2 [facility] Serum or plasma chloride marylin surement (moles/volume)Ordered By: Audra Quinteros on 06-26-2021 Chloride [Moles/Vol] 105 mmol/L 95-114 [place] Serum or plasma glucose abhijit urement (mass/volume)Ordered By: Audra Quinteros on 06-26-2021 Glucose [Mass/Vol] 194 mg/dL 70-100 [facility] Comment on above: ADA recommended refe rence rangeRandom Glucose Reference Range is dependent on time and content of last meal. Glucose of more than 200 mg/dL in a nonstressed, ambulatory subject supports the diagnosis of Diabetes Mellitus. Serum or plasma potassium me asurement (moles/volume)Ordered By: Omid Myrick on 06-26-2021 Potassium [Moles/Vol] 4.0 mmol/L 3.5-5.[address] [facility] Serum or plasma sodium measu rement (moles/volume)Ordered By: Audra Quinteros on 06-26-2021 Sodium [Moles/Vol] 140 mmol/L 136-146 [facility] Serum or plasma total carbon dioxide measurement (moles/volume)Ordered By: Audra Quinteros on 06-26-2021 CO2 [Moles/Vol] 23.8 mmol/L 22.0-30.0 [facility] Serum or plasma urea nitroge n measurement (mass/volume)Ordered By: Audra Quinteros on 06-26-2021 Urea nitrogen [Mass/Vol] 39 mg/dL 9-23 [facility] Specific gravity Auto test s trip (U) [Rel density]Ordered By: Audra Quinteros on 06-26-2021 Specific gravity (U) [Rel density] 1.015 1.001-1.03 0 [facility] Squamous epithelial cells de tection in urine sediment by light microscopyOrdered By: Audra Quinteros on 06-26-2021 Epithelial cells.squamous LM Ql (Urine sed) None seen [HPF] [facility] Urine bacteria detection by automated methodOrdered By: Audra Quinteros on 06-26-2021 Bacteria Auto Ql (U) None seen None Seen [place] Urine clarity by refractomet ry automatedOrdered By: Audra Quinteros on 06-26-2021 Clarity Refractometry automated (U) Clear Clear [facility] Urine glucose measurement by automated test strip (mass/volume)Ordered By: Audra Quinteros on 06-26-2021 Glucose Auto test strip (U) [Mass/Vol] Normal mg/dL Normal [facility] Urine hemoglobin detection b y automated test stripOrdered By: Audra Quinteros on 06-26-2021 Hemoglobin Auto test strip Ql (U) Negative Negative [facility] Urine leukocyte esterase det ection by automated test stripOrdered By: Audra Quinteros on 06-26-2021 Leukocyte esterase Auto test strip Ql (U) Negative Negative [facility] Urine sodium measurement (mo les/volume)Ordered By: Audra Quinteros on 06-26-2021 Sodium (U) [Moles/Vol] 94 mmol/L [facility] Comment on above: No reference range e stablished Urobilinogen Auto test strip (U) [Mass/Vol]Ordered By: Audra Quinteros on 06-26-2021 Urobilinogen (U) [Mass/Vol] Normal mg/dL Normal [facility] pH Auto test strip (U)Ordere d By: Audra Quinteros on 06-26-2021 pH (U) 5.5 [pH] 5.0-9.0 [facility] Activated partial thrombopla stin time (aPTT) in platelet poor plasma by coagulation aOrdered By: Andrew Hernández on 06-25-2021 aPTT Coag (PPP) [Time] 33.4 s 25.1-36.5 [facility] Albumin [Mass/volume] in Ser um or PlasmaOrdered By: Andrew Hernández on 06-25-2021 Albumin [Mass/Vol] 3.4 g/dL 3.2-5.5 [facility] Basophils Auto (Bld) [#/Vol] Ordered By: Andrew Hernández on 06-25-2021 Basophils (Bld) [#/Vol] 0.0 10*3/uL 0.0-0.2 [facility] Basophils/100 WBC Auto (Bld) Ordered By: Andrew Hernández on 06-25-2021 Basophils/100 WBC (Bld) 0.6 % [facility] Blood hemoglobin measurement (mass/volume)Ordered By: Andrew Hernández on 06-25-2021 Hemoglobin (Bld) [Mass/Vol] 11.8 g/dL 13.0-17.0 [facility] Blood leukocytes automated c ount (number/volume)Ordered By: Andrew Hernández on 06-25-2021 WBC (Bld) [#/Vol] 7.5 10*3/uL 4.5-11.0 [facility] COVID-19 SOFIAOrdered By: Prasanna Hernández on 06-25-2021 SARS-CoV+SARS-CoV-2 (COVID-19) Ag IA.rapid Ql (Resp) Negative Negative [facility] Comment on above: This is a duplicate Jessi SARS Antigen (GABI) result to be used for statistical tracking purpose only. Creatinine and Glomerular fi ltration rate.predicted panel (S/P/Bld)Ordered By: Andrew Hernández on 06-25-2021 Creatinine [Mass/Vol] 2.25 mg/dL 0.64-1.[address] [facility] Eosinophils Auto (Bld) [#/Vo l]Ordered By: Andrew Hernández on 06-25-2021 Eosinophils (Bld) [#/Vol] 0.3 10*3/uL 0.0-0.45 [facility] Eosinophils/100 WBC Auto (Bl d)Ordered By: Andrew Hernández on 06-25-2021 Eosinophils/100 WBC (Bld) 4.6 % [facility] Erythrocyte distribution wid th Auto (RBC) [Ratio]Ordered By: Andrew Hernández on 06-25-2021 Erythrocyte distribution width (RBC) [Ratio] 16.1 % 12.0-14.8 [facility] Erythrocyte sedimentation ra te by Photometric methodOrdered By: Andrew Hernández on 06-25-2021 ESR Photometric method (Bld) [Velocity] 39 mm/hr 0-19 [facility] Estimated glomerular filtrat ion rate (GFR) non- AmericanOrdered By: Andrew Hernández on 06-25-2021 GFR/1.73 sq M.predicted among non-blacks MDRD (S/P/Bld) [Vol rate/Area] 28 mL/Min [facility] Globulin Calc (S) [Mass/Vol] Ordered By: Andrew Hernández on 06-25-2021 Globulin (S) [Mass/Vol] 3.2 g/dL [facility] Hematocrit Auto (Bld) [Volum e fraction]Ordered By: Andrew Hernández on 06-25-2021 Hematocrit (Bld) [Volume fraction] 36.2 % 38.8-50.0 [facility] Laboratory - Chemistry and C hemistry - challengeOrdered By: Andrew Hernández on 06-25-2021 Natriuretic peptide B (Bld) [Mass/Vol] 165.0 pg/mL 5-100 [facility] Laboratory - CoagulationOrde red By: Andrew Hernández on 06-25-2021 PT Coag (PPP) [Time] 11.9 s 9.0-12.9 [place] [facility] - Hematology and Cell countsOrdered By: Andrew Hernández on 06-25-2021 Nucleated RBC/100 WBC (Bld) [Ratio] 0.1 % 0-0.5 [facility] Lymphocytes Auto (Bld) [#/Vo l]Ordered By: Andrew Hernández on 06-25-2021 Lymphocytes (Bld) [#/Vol] 1.0 10*3/uL 1.00-4.8 [facility] Lymphocytes/100 WBC Auto (Bl d)Ordered By: Andrew Hernández on 06-25-2021 Lymphocytes/100 WBC (Bld) 12.9 % [facility] MCH Auto (RBC) [Entitic mass ]Ordered By: Andrew Hernández on 06-25-2021 MCH (RBC) [Entitic mass] 28.1 pg 27.5-35.2 [facility] MCHC Auto (RBC) [Mass/Vol]Or dered By: Andrew Hernández on 06-25-2021 MCHC (RBC) [Mass/Vol] 32.7 g/dL 32.5-35.[address] [facility] MCV Auto (RBC) [Entitic vol] Ordered By: Andrew Hernández on 06-25-2021 MCV (RBC) [Entitic vol] 86.0 fL 83.5-101 [facility] Monocytes Auto (Bld) [#/Vol] Ordered By: Andrew Hernández on 06-25-2021 Monocytes (Bld) [#/Vol] 0.5 10*3/uL 0.0-0.8 [facility] Monocytes/100 WBC Auto (Bld) Ordered By: Andrew Hernández on 06-25-2021 Monocytes/100 WBC (Bld) 7.3 % [facility] Neutrophils Auto (Bld) [#/Vo l]Ordered By: Andrew Hernández on 06-25-2021 Neutrophils (Bld) [#/Vol] 5.6 10*3/uL 1.8-7.7 [facility] Neutrophils/100 WBC Auto (Bl d)Ordered By: Andrew Hernández on 06-25-2021 Neutrophils/100 WBC (Bld) 74.6 % [facility] No Panel InformationOrdered By: Andrew Hernández on 06-25-2021 SARS Antigen (LFIA) [facility] Estimated GFR () 34 mL/Min [facility] Comment on above: GFR estimated refere nce range: According to KDOQI guidelines, <60 ml/min/1.73m2 is sufficient to diagnose a patient with chronic kidney disease. Pharmacy Creatinine Clearance (Chem 365.00 [facility] Platelet mean volume Auto (B ld) [Entitic vol]Ordered By: Andrew Hernández on 06-25-2021 Platelet mean volume (Bld) [Entitic vol] 10.0 fL 6.6-10.1 [facility] Platelet poor plasma interna tional normalized ratio (INR) by coagulation assay (relatOrdered By: Andrew Hernández on 06-25-2021 INR Coag (PPP) [Relative time] 1.1 {INR} [facility] Comment on above: INR Therapeutic Rang [...] 06-25-2021 Platelets (Bld) [#/Vol] 171 10*3/uL 150-450 [facility] Comment on above: Delta: 119 on 04/05/ 22-0453 Protein [Mass/volume] in Ser um or PlasmaOrdered By: Andrew Hernández on 06-25-2021 Protein [Mass/Vol] 6.6 g/dL 6.1-7.9 [facility] RBC Auto (Bld) [#/Vol]Ordere d By: Andrew Hernández on 06-25-2021 RBC (Bld) [#/Vol] 4.21 10*6/uL 3.90-5.60 [facility] Serum or plasma C reactive p rotein measurement (mass/volume)Ordered By: Andrew Hernández on 06-25-2021 CRP [Mass/Vol] 0.9 mg/dL 0.0-1.0 [facility] Serum or plasma alanine lopez otransferase measurement without P-5'-P (enzymatic activiOrdered By: Andrew Hernández on 06-25-2021 ALT No additional P-5'-P [Catalytic activity/Vol] 13 U/L 10-60 [facility] Serum or plasma albumin/glob ulin mass ratioOrdered By: Andrew Hernández on 06-25-2021 Albumin/Globulin [Mass ratio] 1.1 {ratio} [facility] Serum or plasma alkaline cande sphatase measurement (enzymatic activity/volume)Ordered By: Andrew Hernández on 06-25-2021 ALP [Catalytic activity/Vol] 57 U/L 32-92 [facility] Serum or plasma aspartate am inotransferase measurement (enzymatic activity/volume)Ordered By: Andrew Hernández on 06-25-2021 AST [Catalytic activity/Vol] 15 U/L 10-42 [facility] Serum or plasma calcium abhijit urement (mass/volume)Ordered By: Andrew Hernández on 06-25-2021 Calcium [Mass/Vol] 9.2 mg/dL 8.2-10.2 [facility] Serum or plasma chloride marylin surement (moles/volume)Ordered By: Andrew Hernández on 06-25-2021 Chloride [Moles/Vol] 106 mmol/L 95-114 [place] Serum or plasma glucose abhijit urement (mass/volume)Ordered By: Andrew Hernández on 06-25-2021 Glucose [Mass/Vol] 177 mg/dL 70-100 [facility] Comment on above: ADA recommended refe rence rangeRandom Glucose Reference Range is dependent on time and content of last meal. Glucose of more than 200 mg/dL in a nonstressed, ambulatory subject supports the diagnosis of Diabetes Mellitus. Serum or plasma potassium me asurement (moles/volume)Ordered By: Andrew Hernández on 06-25-2021 Potassium [Moles/Vol] 4.2 mmol/L 3.5-5.[address] [facility] Serum or plasma sodium measu rement (moles/volume)Ordered By: Andrew Hernández on 06-25-2021 Sodium [Moles/Vol] 142 mmol/L 136-146 [facility] Serum or plasma total biliru bin measurement (mass/volume)Ordered By: Andrew Hernández on 06-25-2021 Bilirubin [Mass/Vol] 0.4 mg/dL 0.3-1.2 [place] Serum or plasma total carbon dioxide measurement (moles/volume)Ordered By: Andrew Hernández on 06-25-2021 CO2 [Moles/Vol] 24.1 mmol/L 22.0-30.0 [facility] Serum or plasma urea nitroge n measurement (mass/volume)Ordered By: Andrew Hernández on 06-25-2021 Urea nitrogen [Mass/Vol] 41 mg/dL 9-23 [facility] Troponin I.cardiac [Mass/vol ume] in Serum or Plasma by High sensitivity methodOrdered By: Andrew Hernández on 06-25-2021 Troponin I.cardiac High sensitivity method [Mass/Vol] 12 pg/mL 0-20 [facility] Albumin [Mass/volume] in Ser um or PlasmaOrdered By: Julee Davies on 06-24-2021 Albumin [Mass/Vol] 2.9 g/dL 3.2-5.5 [facility] Basophils Auto (Bld) [#/Vol] Ordered By: Julee Davies on 06-24-2021 Basophils (Bld) [#/Vol] 0.0 10*3/uL 0.0-0.2 [facility] Basophils/100 WBC Auto (Bld) Ordered By: Julee Davies on 04-05-2022 Basophils/100 WBC (Bld) 0.6 % [facility] Blood hemoglobin measurement (mass/volume)Ordered By: Julee Davies on 06-24-2021 Hemoglobin (Bld) [Mass/Vol] 10.8 g/dL 13.0-17.0 [facility] Blood leukocytes automated c ount (number/volume)Ordered By: Julee Davies on 06-24-2021 WBC (Bld) [#/Vol] 6.6 10*3/uL 4.5-11.0 [facility] Creatinine and Glomerular fi ltration rate.predicted panel (S/P/Bld)Ordered By: Julee Davies on 06-24-2021 Creatinine [Mass/Vol] 2.17 mg/dL 0.64-1.[address] [facility] Eosinophils Auto (Bld) [#/Vo l]Ordered By: Julee Davies on 06-24-2021 Eosinophils (Bld) [#/Vol] 0.3 10*3/uL 0.0-0.45 [facility] Eosinophils/100 WBC Auto (Bl d)Ordered By: Julee Davies on 06-24-2021 Eosinophils/100 WBC (Bld) 5.2 % [facility] Erythrocyte distribution wid th Auto (RBC) [Ratio]Ordered By: Julee Davies on 06-24-2021 Erythrocyte distribution width (RBC) [Ratio] 15.8 % 12.0-14.8 [facility] Estimated glomerular filtrat ion rate (GFR) non- AmericanOrdered By: Julee Davies on 06-24-2021 GFR/1.73 sq M.predicted among non-blacks MDRD (S/P/Bld) [Vol rate/Area] 30 mL/Min [facility] Globulin Calc (S) [Mass/Vol] Ordered By: Julee Davies on 06-24-2021 Globulin (S) [Mass/Vol] 2.4 g/dL [facility] Hematocrit Auto (Bld) [Volum e fraction]Ordered By: Julee Davies on 06-24-2021 Hematocrit (Bld) [Volume fraction] 33.0 % 38.8-50.0 [facility] Laboratory - Chemistry and C hemistry - challengeOrdered By: Julee Davies on 06-24-2021 Magnesium [Mass/Vol] 1.9 mg/dL 1.6-2.6 [place] Natriuretic peptide B (Bld) [Mass/Vol] 224.0 pg/mL 5-100 [facility] Laboratory - Hematology and Cell countsOrdered By: Julee Davies on 06-24-2021 Nucleated RBC/100 WBC (Bld) [Ratio] 0.1 % 0-0.5 [facility] Lymphocytes Auto (Bld) [#/Vo l]Ordered By: Julee Davies on 06-24-2021 Lymphocytes (Bld) [#/Vol] 0.8 10*3/uL 1.00-4.8 [facility] Lymphocytes/100 WBC Auto (Bl d)Ordered By: Julee Davies on 06-24-2021 Lymphocytes/100 WBC (Bld) 11.4 % [facility] MCH Auto (RBC) [Entitic mass ]Ordered By: Julee Davies on 06-24-2021 MCH (RBC) [Entitic mass] 27.7 pg 27.5-35.2 [facility] MCHC Auto (RBC) [Mass/Vol]Or dered By: Julee Davies on 06-24-2021 MCHC (RBC) [Mass/Vol] 32.7 g/dL 32.5-35.[address] [facility] MCV Auto (RBC) [Entitic vol] Ordered By: Julee Davies on 06-24-2021 MCV (RBC) [Entitic vol] 84.6 fL 83.5-101 [facility] Monocytes Auto (Bld) [#/Vol] Ordered By: Julee Davies on 06-24-2021 Monocytes (Bld) [#/Vol] 0.5 10*3/uL 0.0-0.8 [facility] Monocytes/100 WBC Auto (Bld) Ordered By: Julee Davies on 06-24-2021 Monocytes/100 WBC (Bld) 7.4 % [facility] Neutrophils Auto (Bld) [#/Vo l]Ordered By: Julee Davies on 06-24-2021 Neutrophils (Bld) [#/Vol] 5.0 10*3/uL 1.8-7.7 [facility] Neutrophils/100 WBC Auto (Bl d)Ordered By: Julee Davies on 06-24-2021 Neutrophils/100 WBC (Bld) 75.4 % [facility] No Panel InformationOrdered By: Julee Davies on 06-24-2021 Estimated GFR () 36 mL/Min [facility] Comment on above: GFR estimated refere nce range: According to KDOQI guidelines, <60 ml/min/1.73m2 is sufficient to diagnose a patient with chronic kidney disease. Pharmacy Creatinine Clearance (Chem N/A [facility] Platelet mean volume Auto (B ld) [Entitic vol]Ordered By: Julee Davies on 06-24-2021 Platelet mean volume (Bld) [Entitic vol] 9.8 fL 6.6-10.1 [facility] Platelets Auto (Bld) [#/Vol] Ordered By: Julee Davies on 06-24-2021 Platelets (Bld) [#/Vol] 119 10*3/uL 150-450 [facility] Protein [Mass/volume] in Ser um or PlasmaOrdered By: Julee Davies on 06-24-2021 Protein [Mass/Vol] 5.3 g/dL 6.1-7.9 [facility] RBC Auto (Bld) [#/Vol]Ordere d By: Julee Davies on 06-24-2021 RBC (Bld) [#/Vol] 3.90 10*6/uL 3.90-5.60 [facility] Serum or plasma alanine lopez otransferase measurement without P-5'-P (enzymatic activiOrdered By: Julee Davies on 06-24-2021 ALT No additional P-5'-P [Catalytic activity/Vol] 7 U/L 10-60 [facility] Serum or plasma albumin/glob ulin mass ratioOrdered By: Julee Davies on 06-24-2021 Albumin/Globulin [Mass ratio] 1.2 {ratio} [facility] Serum or plasma alkaline cande sphatase measurement (enzymatic activity/volume)Ordered By: Julee Davies on 06-24-2021 ALP [Catalytic activity/Vol] 56 U/L 32-92 [facility] Serum or plasma aspartate am inotransferase measurement (enzymatic activity/volume)Ordered By: Julee Davies on 06-24-2021 AST [Catalytic activity/Vol] 13 U/L 10-42 [facility] Serum or plasma calcium abhijit urement (mass/volume)Ordered By: Julee Davies on 06-24-2021 Calcium [Mass/Vol] 8.9 mg/dL 8.2-10.2 [facility] Serum or plasma chloride marylin surement (moles/volume)Ordered By: Julee Davies on 06-24-2021 Chloride [Moles/Vol] 109 mmol/L 95-114 [place] Serum or plasma glucose abhijit urement (mass/volume)Ordered By: Julee Davies on 06-24-2021 Glucose [Mass/Vol] 160 mg/dL 70-100 [facility] Comment on above: ADA recommended refe rence rangeRandom Glucose Reference Range is dependent on time and content of last meal. Glucose of more than 200 mg/dL in a nonstressed, ambulatory subject supports the diagnosis of Diabetes Mellitus. Serum or plasma potassium me asurement (moles/volume)Ordered By: Julee Davies on 06-24-2021 Potassium [Moles/Vol] 4.1 mmol/L 3.5-5.[address] [facility] Serum or plasma sodium measu rement (moles/volume)Ordered By: Julee Davies on 06-24-2021 Sodium [Moles/Vol] 144 mmol/L 136-146 [facility] Serum or plasma total biliru bin measurement (mass/volume)Ordered By: Julee Davies on 06-24-2021 Bilirubin [Mass/Vol] 0.5 mg/dL 0.3-1.2 [place] Serum or plasma total carbon dioxide measurement (moles/volume)Ordered By: Julee Davies on 06-24-2021 CO2 [Moles/Vol] 25.7 mmol/L 22.0-30.0 [facility] Serum or plasma urea nitroge n measurement (mass/volume)Ordered By: Julee Davies on 06-24-2021 Urea nitrogen [Mass/Vol] 43 mg/dL 9- [facility] Tacrolimus [Mass/volume] in BloodOrdered By: Julee Davies on 06-24-2021 Tacrolimus (Bld) [Mass/Vol] 8.1 ng/mL [facility] Comment on above: This test was vane christine and its performance characteristicsdetermined by [facility]. It has not been cleared orapproved by the Food and Drug Administration. Trough (immediately following transplant) 15.0 Trough (steady state, 2 weeks or more after transplant): 3.0 - 8.0 Performed by LC-MS/MS technology.Performed at: [address] [id number] Director: Mynor Nixon MD, Phone: [phone] Albumin [Mass/volume] in Ser um or PlasmaOrdered By: Julee Davies on 05-27-2021 Albumin [Mass/Vol] 3.1 g/dL 3.2-5.5 [facility] Basophils Auto (Bld) [#/Vol] Ordered By: Julee Davies on 05-27-2021 Basophils (Bld) [#/Vol] 0.0 10*3/uL 0.0-0.2 [facility] Basophils/100 WBC Auto (Bld) Ordered By: Julee Davies on 05-27-2021 Basophils/100 WBC (Bld) 0.7 % [facility] Blood hemoglobin measurement (mass/volume)Ordered By: Julee Davies on 05-27-2021 Hemoglobin (Bld) [Mass/Vol] 11.4 g/dL 13.0-17.0 [facility] Blood leukocytes automated c ount (number/volume)Ordered By: Julee Davies on 05-27-2021 WBC (Bld) [#/Vol] 6.1 10*3/uL 4.5-11.0 [facility] Cholesterol [Mass/volume] in Serum or PlasmaOrdered By: Julee Davies on 05-27-2021 Cholesterol [Mass/Vol] 129 mg/dL 140-200 [facility] Comment on above: Chol less than 200 m g/dl low riskChol 201-239 mg/dl borderline riskChol 240 mg/dl and greater high risk Cholesterol in LDL Calc [Mas s/Vol]Ordered By: Julee Davies on 05-27-2021 Cholesterol in LDL [Mass/Vol] 67 mg/dL 0-100 [facility] Comment on above: LDL ATP III CLASSIFI CATIONLDL less than 100 mg/dL OptimalLDL 100-129 mg/dL Near or above optimalLDL 130-159 mg/dL Borderline highLDL 160-189 mg/dL HighLDL greater than 189 mg/dL Very high Cholesterol in VLDL Calc [Ma ss/Vol]Ordered By: Julee Davies on 05-27-2021 Cholesterol in VLDL [Mass/Vol] 27 mg/dL [facility] Creatinine and Glomerular fi ltration rate.predicted panel (S/P/Bld)Ordered By: Julee Davies on 05-27-2021 Creatinine [Mass/Vol] 1.86 mg/dL 0.64-1.[address] [facility] Eosinophils Auto (Bld) [#/Vo l]Ordered By: Julee Davies on 05-27-2021 Eosinophils (Bld) [#/Vol] 0.2 10*3/uL 0.0-0.45 [facility] Eosinophils/100 WBC Auto (Bl d)Ordered By: Julee Davies on 05-27-2021 Eosinophils/100 WBC (Bld) 3.7 % [facility] Erythrocyte distribution wid th Auto (RBC) [Ratio]Ordered By: Julee Davies on 05-27-2021 Erythrocyte distribution width (RBC) [Ratio] 14.9 % 12.0-14.8 [facility] Estimated glomerular filtrat ion rate (GFR) non- AmericanOrdered By: Julee Davies on 05-27-2021 GFR/1.73 sq M.predicted among non-blacks MDRD (S/P/Bld) [Vol rate/Area] 35 mL/Min [facility] Globulin Calc (S) [Mass/Vol] Ordered By: Julee Davies on 05-27-2021 Globulin (S) [Mass/Vol] 2.9 g/dL [facility] Glucose mean value [Mass/vol ume] in Blood Estimated from glycated hemoglobinOrdered By: Julee Davies on 05-27-2021 Average glucose Estimated from glycated hemoglobin (Bld) [Mass/Vol] 209 mg/dL [facility] Hematocrit Auto (Bld) [Volum e fraction]Ordered By: Julee Davies on 05-27-2021 Hematocrit (Bld) [Volume fraction] 34.1 % 38.8-50.0 [facility] Hemoglobin A1c percentageOrd ered By: Julee Davies on 05-27-2021 HbA1c (Bld) [Mass fraction] 8.9 % 4.3-5.6 [facility] Comment on above: Increased risk for d iabetes: 5.7 - 6.4diabetes: >6.4glycemic control for adults with diabetes: <7.0 Laboratory - Hematology and Cell countsOrdered By: Julee Davies on 05-27-2021 Nucleated RBC/100 WBC (Bld) [Ratio] 0.2 % 0-0.5 [facility] Lymphocytes Auto (Bld) [#/Vo l]Ordered By: Julee Davies on 05-27-2021 Lymphocytes (Bld) [#/Vol] 1.1 10*3/uL 1.00-4.8 [facility] Lymphocytes/100 WBC Auto (Bl d)Ordered By: Julee Davies on 05-27-2021 Lymphocytes/100 WBC (Bld) 17.9 % [facility] MCH Auto (RBC) [Entitic mass ]Ordered By: Julee Davies on 05-27-2021 MCH (RBC) [Entitic mass] 28.3 pg 27.5-35.2 [facility] MCHC Auto (RBC) [Mass/Vol]Or dered By: Julee Davies on 05-27-2021 MCHC (RBC) [Mass/Vol] 33.5 g/dL 32.5-35.[address] [facility] MCV Auto (RBC) [Entitic vol] Ordered By: Julee Davies on 05-27-2021 MCV (RBC) [Entitic vol] 84.5 fL 83.5-101 [facility] Monocytes Auto (Bld) [#/Vol] Ordered By: Julee Davies on 05-27-2021 Monocytes (Bld) [#/Vol] 0.5 10*3/uL 0.0-0.8 [facility] Monocytes/100 WBC Auto (Bld) Ordered By: Julee Davies on 05-27-2021 Monocytes/100 WBC (Bld) 7.9 % [facility] Neutrophils Auto (Bld) [#/Vo l]Ordered By: Julee Davies on 05-27-2021 Neutrophils (Bld) [#/Vol] 4.3 10*3/uL 1.8-7.7 [facility] Neutrophils/100 WBC Auto (Bl d)Ordered By: Julee Davies on 05-27-2021 Neutrophils/100 WBC (Bld) 69.8 % [facility] No Panel InformationOrdered By: Julee Davies on 05-27-2021 25-Hydroxy Vitamin D Total 23.8 ng/mL 30-100 [facility] Comment on above: VITAMIN D STATUS 25( [place])VITAMIN D RANGE (ng/mL) Deficient <20 Insufficient 20 to <30Sufficient 30 to 100Reference: Ely MF,Brad NC, Kristy ORTEGA, et al. Evaluation,treatment, and prevention of vitamin D deficiency; an Endocrine Society clinical practice guideline. JCEM. 2010; 96(7):1911-30. Estimated GFR () 43 mL/Min [facility] Comment on above: GFR estimated refere nce range: According to KDOQI guidelines, <60 ml/min/1.73m2 is sufficient to diagnose a patient with chronic kidney disease. Pharmacy Creatinine Clearance (Chem N/A [facility] Platelet Estimate Decreased Normal [facility] Platelet Morphology Comment Normal Normal [facility] Platelet mean volume Auto (B ld) [Entitic vol]Ordered By: Julee Davies on 05-27-2021 Platelet mean volume (Bld) [Entitic vol] 10.6 fL 6.6-10.1 [facility] Platelets Auto (Bld) [#/Vol] Ordered By: Julee Davies on 05-27-2021 Platelets (Bld) [#/Vol] 129 10*3/uL 150-450 [facility] Protein [Mass/volume] in Ser um or PlasmaOrdered By: Julee Davies on 05-27-2021 Protein [Mass/Vol] 6.0 g/dL 6.1-7.9 [facility] RBC Auto (Bld) [#/Vol]Ordere d By: Julee Davies on 05-27-2021 RBC (Bld) [#/Vol] 4.03 10*6/uL 3.90-5.60 [facility] RBC morphologyOrdered By: Maurice Davies on 05-27-2021 RBC morphology finding Nom (Bld) Normal [facility] Serum or plasma alanine lopez otransferase measurement without P-5'-P (enzymatic activiOrdered By: Julee Davies on 05-27-2021 ALT No additional P-5'-P [Catalytic activity/Vol] 7 U/L 10-60 [facility] Serum or plasma albumin/glob ulin mass ratioOrdered By: Julee Davies on 05-27-2021 Albumin/Globulin [Mass ratio] 1.1 {ratio} [facility] Serum or plasma alkaline cande sphatase measurement (enzymatic activity/volume)Ordered By: Julee Davies on 05-27-2021 ALP [Catalytic activity/Vol] 52 U/L 32-92 [facility] Serum or plasma aspartate am inotransferase measurement (enzymatic activity/volume)Ordered By: Julee Davies on 05-27-2021 AST [Catalytic activity/Vol] 11 U/L 10-42 [facility] Serum or plasma calcium abhijit urement (mass/volume)Ordered By: Julee Davies on 05-27-2021 Calcium [Mass/Vol] 9.0 mg/dL 8.2-10.2 [facility] Serum or plasma chloride marylin surement (moles/volume)Ordered By: Julee Davies on 05-27-2021 Chloride [Moles/Vol] 104 mmol/L 95-114 [place] Serum or plasma glucose abhijit urement (mass/volume)Ordered By: Julee Davies on 05-27-2021 Glucose [Mass/Vol] 183 mg/dL 70-100 [facility] Comment on above: ADA recommended refe rence rangeRandom Glucose Reference Range is dependent on time and content of last meal. Glucose of more than 200 mg/dL in a nonstressed, ambulatory subject supports the diagnosis of Diabetes Mellitus. Serum or plasma high density lipoprotein (HDL) cholesterol measurementOrdered By: Julee Davies on 05-27-2021 Cholesterol in HDL [Mass/Vol] 35 mg/dL 29-71 [facility] Comment on above: HDL CHOL ATP-III CLA SSIFICATION Cardiovascular RiskHDL > or equal to 60 mg/dL LOWHDL < 40 mg/dL HIGH Serum or plasma potassium me asurement (moles/volume)Ordered By: Julee Davies on 05-27-2021 Potassium [Moles/Vol] 4.1 mmol/L 3.5-5.[address] [facility] Serum or plasma sodium measu rement (moles/volume)Ordered By: Julee Davies on 05-27-2021 Sodium [Moles/Vol] 140 mmol/L 136-146 [facility] Serum or plasma total biliru bin measurement (mass/volume)Ordered By: Julee Davies on 05-27-2021 Bilirubin [Mass/Vol] 0.4 mg/dL 0.3-1.2 [place] Serum or plasma total carbon dioxide measurement (moles/volume)Ordered By: Julee Davies on 05-27-2021 CO2 [Moles/Vol] 26.1 mmol/L 22.0-30.0 [facility] Serum or plasma total choles terol/high density lipoprotein (HDL) cholesterol mass ratOrdered By: Julee Davies on 05-27-2021 Cholesterol.total/Denise sterol in HDL [Mass ratio] 3.7 {ratio} [facility] Serum or plasma urea nitroge n measurement (mass/volume)Ordered By: Julee Davies on 05-27-2021 Urea nitrogen [Mass/Vol] 38 mg/dL 9-23 [facility] TSH DL <= 0.005 mIU/L QnOrde red By: Julee Davies on 05-27-2021 TSH Qn 4.10 m[IU]/L 0.45-5.33 [facility] Triglyceride [Mass/volume] i n Serum or PlasmaOrdered By: Julee Davies on 05-27-2021 Triglyceride [Mass/Vol] 136 mg/dL 35-149 [facility] Comment on above: TRIG ATP III [...] haryngealReference Range: Not Detected.This test has received [facility] Emergency Use Authorization (EUA) and has been verified by [facility] ([facility]). This test is only authorized for the duration of time that circumstances exist to justify the authorization of the emergency use of in vitro diagnostic tests for the detection of SARS-CoV-2 virus and/or diagnosis of COVID-19 infection under section 564(b)(1) of the Act, 21 U.S.C. 360bbb-3(b)(1), unless the authorization is terminated or revoked sooner. [facility] is certified under CLIA-88 as qualified to perform high complexity testing. Testing is performed in the [facility] located at [address] [place] [address].SARS-CoV-2/Flu/RSV Multiplex Test: Fact sheet for providers: https://www.fda.gov/media/319541/downloadFact sheet for patients: https://www.fda.gov/media/556032/download Coronavirus 2019 RNA by PCR, Screening Asymptomtic Canceled [facility] [address] DO Work Phone: Comment on above: SOURCE: Nasal, Nasop haryngeal.This test has received FDA Emergency Use Authorization (EUA) and has been verified by [facility] ([facility]). This test is only authorized for the duration of time that circumstances exist to justify the authorization of the emergency use of in vitro diagnostic tests for the detection of SARS-CoV-2 virus and/or diagnosis of COVID-19 infection under section 564(b)(1) of the Act, 21 U.S.C. 360bbb-3(b)(1), unless the authorization is terminated or revoked sooner. [facility] is certified under CLIA-88 as qualified to perform high complexity testing. Testing is performed in the [facility] located at [address] [place] [address].SARS-CoV-2/Flu/RSV Multiplex Test: Fact sheet for providers: https://www.fda.gov/media/382851/downloadFact sheet for patients: https://www.fda.gov/media/362024/download Laboratory - Chemistry and C hemistry - challengeon 12-24-2020 Glucose [Mass/Vol] 203 mg/dL above high threshold 74 - 99 [facility] 260 DO Work Phone: Laboratory - Hematology and Cell countson 12-24-2020 Erythrocyte distribution width (RBC) [Ratio] 12.7 % See Below [facility] [facility] 260 DO Work Phone: Comment on [...] lo w threshold 150 - 450 [facility] [facility] 260 DO Work Phone: [phone] RBC (Bld) [#/Vol] 3.92 {x10E12/L} below low threshold See Below [facility] DO Work Phone: Comment on above: Reference Range: 4.5 0 - 5.90 WBC (Bld) [#/Vol] 5.1 10*3/uL 4.4 - 11.3 [facility] 260 DO Work Phone: [phone] No Panel Informationon 12-24 Please click on the link to view the study images Normal [facility] DO Work Phone: 0.0 {/100_WBC} 0.0-0.0 [facility] [facility] 260 DO Work Phone: [phone] Renal Function Panelon 12-24 Albumin BCP dye [Mass/Vol] 3.6 g/dL 3.4 - 5.0 [facility] 260 DO Work Phone: Anion gap [Moles/Vol] 15 mmol/L 10 - 20 [facility] 260 DO Work Phone: [phone] Calcium [Mass/Vol] 9.0 mg/dL 8.6 - 10.6 [facility] [facility] 260 DO Work Phone: [phone] Chloride [Moles/Vol] 109 mmol/L above high threshold 98 - 107 [facility] [facility] 260 DO Work Phone: CO2 [Moles/Vol] 24 mmol/L 21 - 32 [facility] [facility] 260 DO Work Phone: Creatinine [Mass/Vol] [...] Function Panel 45 {mL/min/1.73m2} Abnormal >60 [facility] [facility] 260 DO Work Phone: Comment on above: CALCULATIONS OF ERNST MATED GFR ARE PERFORMED USING THE MDRD STUDY EQUATION FOR THE IDMS-TRACEABLE CREATININE METHODS. CLIN CHEM 2007;53:766-72 Renal Function Panel 37 {mL/min/1.73m2} Abnormal >60 [facility] [facility] 260 DO Work Phone: Tacrolimuson 12-24-2020 Tacrolimus (Bld) [Mass/Vol] 5.4 ng/mL 2.0 - 15.0 [facility] 260 DO Work Phone: Comment on above: NOTE: Result was obt ained using a chemiluminescent microparticle immunoassay (CMIA) on the Salesman[employer] i system.Optimal therapeutic ranges for immuno-suppressant drugs depend upon an individualpatient's current clinical state, type oforgan transplant, time post-transplant,co-administration of other immunosuppressants,and other clinical factors. The results ofthis test should be correlated with additionalclinical and laboratory data before changesin treatment regimens are made. CT Head without Contraston 1 CT Head limited WO contrast Normal [facility] 260 DO Work Phone: [phone] Laboratory - Chemistry and C hemistry - challengeon 12-23-2020 Glucose [Mass/Vol] 151 mg/dL above high threshold 74 - 99 [facility] [facility] 260 DO Work Phone: [phone] Glucose [Mass/Vol] 241 mg/dL above high threshold 74 - 99 [facility] [facility] 260 DO Work Phone: [phone] Glucose [Mass/Vol] 195 mg/dL above high threshold 74 - 99 [facility] [facility] 260 DO Work Phone: [phone] Glucose [Mass/Vol] 160 mg/dL above high threshold 74 - 99 [facility] [facility] 260 DO Work Phone: [phone] Laboratory - Hematology and Cell countson 12-23-2020 Erythrocyte distribution width (RBC) [Ratio] 12.5 % See Below [facility] [facility] 260 DO Work Phone: [phone] Comment on above: Reference Range: 11. 5 - 14.5 Hematocrit (Bld) [Volume fraction] 34.3 % below low threshold See Below [facility] [facility] 260 DO Work Phone: [phone] Comment on above: Reference Range: 41. 0 - 52.0 Hemoglobin (Bld) [Mass/Vol] 11.1 g/dL below low threshold See Below [facility] 260 DO Work Phone: [phone] Comment on above: Reference Range: 13. 5 - 17.5 MCHC (RBC) [Mass/Vol] 32.4 g/dL See Below [facility] [facility] 260 DO Work Phone: [phone] Comment on above: Reference Range: 32. 0 - 36.0 MCV (RBC) [Entitic vol] 90 fL 80 - 100 M [facility] [facility] 260 DO Work Phone: [phone] Platelets (Bld) [#/Vol] 106 10*3/uL below lo w threshold 150 - 450 [facility] [facility] 260 DO Work Phone: [phone] RBC (Bld) [#/Vol] 3.83 {x10E12/L} below low threshold See Below [facility] [facility] 260 DO Work Phone: [phone] Comment on above: Reference Range: 4.5 0 - 5.90 WBC (Bld) [#/Vol] 5.2 10*3/uL 4.4 - 11.3 [facility] [facility] 260 DO Work Phone: [phone] No Panel Informationon 12-23 0.0 {/100_WBC} 0.0-0.0 [facility] [facility] 260 DO Work Phone: [phone] Renal Function Panelon 12-23 Albumin BCP dye [Mass/Vol] 3.6 g/dL 3.4 - 5.0 [facility] [facility] 260 DO Work Phone: [phone] Anion gap [Moles/Vol] 14 mmol/L 10 - 20 [facility] [facility] 260 DO Work Phone: [phone] Calcium [Mass/Vol] 8.9 mg/dL 8.6 - 10.6 [facility] [facility] 260 DO Work Phone: [phone] Chloride [Moles/Vol] 109 mmol/L above high threshold 98 - 107 [facility] [facility] 260 DO Work Phone: [phone] CO2 [Moles/Vol] 23 mmol/L 21 - 32 [facility] [facility] 260 DO Work Phone: [phone] Creatinine [Mass/Vol] 1.71 mg/dL above high threshold See Below [facility] [facility] 260 DO Work Phone: Comment on above: Reference Range: 0.5 0 - 1.30 Glucose [Mass/Vol] 146 mg/dL above high threshold 74 - 99 [facility] [facility] 260 DO Work Phone: Phosphate [Mass/Vol] [...] 4.2 mmol/L 3.5 - 5.3 [facility] [facility] 260 DO Work Phone: Sodium [Moles/Vol] 142 mmol/L 136 - 145 [facility] [facility] 260 DO Work Phone: Urea nitrogen [Mass/Vol] 50 mg/dL above high threshold 6 - 23 [facility] [facility] 260 DO Work Phone: Renal Function Panel 47 {mL/min/1.73m2} Abnormal >60 [facility] [facility] 260 DO Work Phone: Comment on above: CALCULATIONS OF ERNST MATED GFR ARE PERFORMED USING THE MDRD STUDY EQUATION FOR THE IDMS-TRACEABLE CREATININE METHODS. CLIN CHEM 2007;53:766-72 Renal Function Panel 39 {mL/min/1.73m2} Abnormal >60 [facility] [facility] 260 DO Work Phone: Tacrolimuson 12-23-2020 Tacrolimus (Bld) [Mass/Vol] 5.9 ng/mL 2.0 - 15.0 [facility] [facility] 260 DO Work Phone: Comment on above: NOTE: Result was obt ained using a chemiluminescent microparticle immunoassay (CMIA) on the Salesman[employer]Owner i system.Optimal therapeutic ranges for immuno-suppressant drugs [...] [facility] [facility] 260 DO Work Phone: [phone] Glucose [Mass/Vol] 217 mg/dL above high threshold 74 - 99 [facility] [facility] 260 DO Work Phone: [phone] Glucose [Mass/Vol] 145 mg/dL above high threshold 74 - 99 [facility] [facility] 260 DO Work Phone: Glucose [Mass/Vol] 142 mg/dL above high threshold 74 - 99 [facility] [facility] 260 DO Work Phone: Laboratory - Hematology and Cell countson 12-22-2020 Erythrocyte distribution width (RBC) [Ratio] 12.6 % See Below [facility] [facility] 260 DO Work Phone: Comment on above: Reference Range: 11. 5 - 14.5 Hematocrit (Bld) [Volume fraction] 33.0 % below low threshold See Below [facility] [facility] 260 DO Work Phone: Comment on above: Reference Range: 41. 0 - 52.0 Hemoglobin (Bld) [Mass/Vol] 10.7 g/dL below low threshold See Below [facility] [facility] 260 DO Work Phone: Comment on above: Reference Range: 13. 5 - 17.5 MCHC (RBC) [Mass/Vol] 32.4 g/dL See Below [facility] [facility] 260 DO Work Phone: [phone] Comment on above: Reference Range: 32. 0 - 36.0 MCV (RBC) [Entitic vol] 91 fL 80 - 100 M [facility] [facility] 260 DO Work Phone: [phone] Platelets (Bld) [#/Vol] 107 10*3/uL below lo w threshold 150 - 450 [facility] [facility] 260 DO Work Phone: [phone] RBC (Bld) [#/Vol] 3.62 {x10E12/L} below low threshold See Below [facility] [facility] 260 DO Work Phone: [phone] Comment on above: Reference Range: 4.5 0 - 5.90 WBC (Bld) [#/Vol] 5.0 10*3/uL 4.4 - 11.3 [facility] [facility] 260 DO Work Phone: [phone] No Panel Informationon 12-22 0.0 {/100_WBC} 0.0-0.0 [facility] [facility] 260 DO Work Phone: [phone] Renal Function Panelon 12-22 Albumin BCP dye [Mass/Vol] 3.5 g/dL 3.4 - 5.0 [facility] [facility] 260 DO Work Phone: [phone] Anion gap [Moles/Vol] 15 mmol/L 10 - 20 [facility] [facility] 260 DO Work Phone: [phone] Calcium [Mass/Vol] 8.9 mg/dL 8.6 - 10.6 [facility] [facility] 260 DO Work Phone: [phone] Chloride [Moles/Vol] 111 mmol/L above high threshold 98 - 107 [facility] [facility] 260 DO Work Phone: [phone] CO2 [Moles/Vol] 23 mmol/L 21 - 32 [facility] [facility] 260 DO Work Phone: [phone] Creatinine [Mass/Vol] 2.04 mg/dL above high threshold See Below [facility] [facility] 260 DO Work Phone: Comment on above: Reference Range: 0.5 0 - 1.30 Glucose [Mass/Vol] 131 mg/dL above high threshold 74 - 99 [facility] [facility] 260 DO Work Phone: Phosphate [Mass/Vol] 3.3 mg/dL 2.5 - 4.9 MG-[facility] ardiolo gy[facility] [facility] 260 DO Work Phone: Comment on [...] Function Panel 32 {mL/min/1.73m2} Abnormal >60 [facility] [facility] 260 DO Work Phone: Tacrolimuson 12-22-2020 Tacrolimus (Bld) [Mass/Vol] 5.5 ng/mL 2.0 - 15.0 [facility] [facility] 260 DO Work Phone: Comment on above: NOTE: Result was obt ained using a chemiluminescent microparticle immunoassay (CMIA) on the Salesman/Owner i system.Optimal therapeutic ranges for immuno-suppressant drugs [...] Phone: HbA1c (Bld) [Mass fraction] Canceled [facility] [facility] 260 DO Work Phone: Comment on above: Diagnosis of Diabete s-Adults Non-Diabetic: < or = 5.6% Increased risk for developing diabetes: 5.7-6.4% Diagnostic of diabetes: > or = 6.5%. Monitoring of Diabetes Age (y) Therapeutic Goal (%) Adults: >18 <7.0 Pediatrics: 13-18 <7.5 7-12 <8.0 0- 6 7.5-8.5 [employer]. Diabetes Care 33(S1), Mar 2009. [...] 13-18 <7.5 7-12 <8.0 0- 6 7.5-8.5 [employer]. Diabetes Care 33(S1), Mar 2009. Hemoglobin A1C Canceled [facility] [facility] 260 DO Work Phone: Laboratory - Chemistry and C hemistry - challengeon 12-21-2020 Glucose [Mass/Vol] 191 mg/dL above high threshold 74 - 99 [facility] [facility] 260 DO Work Phone: Glucose [Mass/Vol] 203 mg/dL above high threshold 74 - 99 [facility] [facility] 260 DO Work Phone: [phone] Glucose [Mass/Vol] 229 mg/dL above high threshold 74 - 99 [facility] [facility] 260 DO Work Phone: Glucose [Mass/Vol] 136 mg/dL above high threshold 74 - 99 [facility] [facility] 260 DO Work Phone: Laboratory - [...] [facility] [facility] 260 DO Work Phone: [phone] Platelets (Bld) [#/Vol] 124 10*3/uL below lo w threshold 150 - 450 [facility] [facility] 260 DO Work Phone: [phone] RBC (Bld) [#/Vol] 4.01 {x10E12/L} below low threshold See Below [facility] [facility] 260 DO Work Phone: [phone] Comment on above: Reference Range: 4.5 0 - 5.90 WBC (Bld) [#/Vol] 6.2 10*3/uL 4.4 - 11.3 [facility] [facility] 260 DO Work Phone: [phone] No Panel Informationon 12-21 0.0 {/100_WBC} 0.0-0.0 [facility] [facility] 260 DO Work Phone: [phone] Renal Function Panelon 12-21 Albumin BCP dye [Mass/Vol] 3.8 g/dL 3.4 - 5.0 [facility] [facility] 260 DO Work Phone: [phone] Anion gap [Moles/Vol] 15 mmol/L 10 - 20 MG- [facility] [facility] 260 DO Work Phone: [phone] Calcium [Mass/Vol] 8.8 mg/dL 8.6 - 10.6 [facility] [facility] 260 DO Work Phone: [phone] Chloride [Moles/Vol] 110 mmol/L above high threshold 98 - 107 [facility] [facility] 260 DO Work Phone: [phone] CO2 [Moles/Vol] 23 mmol/L 21 - 32 [facility] [facility] 260 DO Work Phone: [phone] Creatinine [Mass/Vol] 2.22 mg/dL above high threshold See Below [facility] [facility] 260 DO Work Phone: [phone] Comment on above: Reference Range: 0.5 0 - 1.30 Glucose [Mass/Vol] 114 mg/dL above high threshold 74 - 99 [facility] [facility] 260 DO Work Phone: Phosphate [Mass/Vol] 3.6 mg/dL 2.5 - 4.9 MG-[facility]olo gy[facility] [facility] 260 DO Work Phone: Comment on above: The performance waqar acteristics of phosphorus testing in heparinized plasma have been validated by the individual laboratory site where testing is performed. Testing on heparinized plasma is not approved by the FDA; however, such approval is not necessary. Potassium [Moles/Vol] 4.1 mmol/L 3.5 - 5.3 MG- [facility] [facility] 260 DO Work Phone: Sodium [Moles/Vol] 144 mmol/L 136 - 145 [facility] [facility] 260 DO Work Phone: Urea nitrogen [Mass/Vol] 68 mg/dL above high threshold 6 - 23 [facility] [facility] 260 DO Work Phone: Renal Function Panel 35 {mL/min/1.73m2} Abnormal >60 [facility] [facility] 260 DO Work Phone: Comment on above: CALCULATIONS OF ERNST MATED GFR ARE PERFORMED USING THE MDRD STUDY EQUATION FOR THE IDMS-TRACEABLE CREATININE METHODS. CLIN CHEM 2007;53:766-72 Renal Function Panel 29 {mL/min/1.73m2} Abnormal >60 [facility] [facility] 260 DO Work Phone: Tacrolimuson 12-21-2020 Tacrolimus (Bld) [Mass/Vol] 6.8 ng/mL 2.0 - 15.0 [facility] [facility] 260 DO Work Phone: Comment on above: NOTE: Result was obt ained using a chemiluminescent microparticle immunoassay (CMIA) on the Salesman[employer]Owner i system.Optimal therapeutic ranges for immuno-suppressant drugs depend upon an individualpatient's current clinical state, type oforgan transplant, time post-transplant,co-administration of other immunosuppressants,and other clinical factors. The results ofthis test should be correlated with additionalclinical and laboratory data before changesin treatment regimens are made. Coronavirus 2019 RNA by PCR, Symptomaticon 12-20-2020 Coronavirus 2019 RNA by PCR, Symptomatic Not detected Normal See Below [facility] [facility] 260 DO Work Phone: Comment on above: SOURCE: Nasal, Nasop haryngealReference Range: Not Detected.This test has received FDA Emergency Use Authorization (EUA) and has been verified by [facility] ([facility]). This test is only authorized for the duration of time that circumstances exist to justify the authorization of the emergency use of in vitro diagnostic tests for the detection of SARS-CoV-2 virus and/or diagnosis of COVID-19 infection under section 564(b)(1) of the Act, 21 U.S.C. 360bbb-3(b)(1), unless the authorization is terminated or revoked sooner. [facility] is certified under CLIA-88 as qualified to perform high complexity testing. Testing is performed in the [facility] located at [address] [place] [address].SARS-CoV-2/Flu/RSV Multiplex Test: Fact sheet for providers: https://www.fda.gov/media/666002/downloadFact sheet for patients: https://www.fda.gov/media/591767/download Date and time of symptom onset Canceled [facility] [facility] 260 DO Work Phone: Coronavirus 2019 RNA by PCR, Symptomatic Canceled [facility] [facility] 260 DO Work Phone: Comment on [...] this test method. Fact sheet for providers: www.fda.gov/media/130232/downloadFact sheet for patients: www.fda.gov/media/761646/downloadThis test has received FDA Emergency Use Authorization (EUA) and has been verified by [facility] ([facility]). This test is only authorized for the duration of time that circumstances exist to justify the authorization of the emergency use of in vitro diagnostic tests for the detection of SARS-CoV-2 virus and/or diagnosis of COVID-19 infection under section 564(b)(1) of the Act, 21 U.S.C. 360bbb-3(b)(1), unless the authorization is terminated or revoked sooner. [facility] is certified under CLIA-88 as qualified to perform high complexity testing. Testing is performed in the [facility] laboratories located at [address] [place] [address]. Folate, Serumon 12-20-2020 Folate [Mass/Vol] ng/mL >5.0 MG-Card iolo gy[facility] [facility] 260 DO Work Phone: Comment on [...] TSH Qn 2.00 m[IU]/L See Below [facility] [facility] 260 DO Work Phone: Comment on above: Reference Range: 0.4 4 - 3.98 TSH testing is performed using different testing methodology at [facility] than at other [facility]. Direct result comparisons should only be [...] [facility] [facility] 260 DO Work Phone: [phone] PT Coag (PPP) [Time] Canceled MG-[facility] gy[facility] [facility] 260 DO Work Phone: [phone] Laboratory - Hematology and Cell countson 12-20-2020 Erythrocyte distribution width (RBC) [Ratio] 12.9 % See Below [facility] [facility] 260 DO Work Phone: [phone] Comment on above: Reference Range: 11. 5 - 14.5 Hematocrit (Bld) [Volume fraction] 35.8 % below low threshold See Below [facility] [facility] 260 DO Work Phone: [phone] Comment on above: Reference Range: 41. 0 - 52.0 Hemoglobin (Bld) [Mass/Vol] 11.7 g/dL below low threshold See Below [facility] [facility] 260 DO Work Phone: [phone] Comment on above: Reference Range: 13. 5 - 17.5 MCHC (RBC) [Mass/Vol] 32.7 g/dL See Below MG- [facility] [facility] 260 DO Work Phone: [phone] Comment on above: Reference Range: 32. 0 - 36.0 MCV (RBC) [Entitic vol] 90 fL 80 - 100 M [facility] [facility] 260 DO Work Phone: [phone] Platelets (Bld) [#/Vol] 131 10*3/uL below lo w threshold 150 - 450 [facility] [facility] 260 DO Work Phone: [phone] RBC (Bld) [#/Vol] 3.97 {x10E12/L} below low [...] above: . <100 pg/mL - Heart failure [id number] pg/mL - Intermediate probability of acute heart. [...] Radiologyon 12-20-2020 XR Abdomen AP Normal [facility] [facility] 260 DO Work Phone: XR Chest [...] 9.2 mg/dL 8.6 - 10.6 [facility] [facility] 260 DO Work Phone: [phone] Chloride [Moles/Vol] 112 mmol/L above high threshold 98 - 107 [facility] [facility] 260 DO Work Phone: [phone] CO2 [Moles/Vol] 24 mmol/L 21 - 32 [facility] [facility] 260 DO Work Phone: [phone] Creatinine [Mass/Vol] 2.40 mg/dL above high threshold See Below [facility] [facility] 260 DO Work Phone: [phone] Comment on above: Reference Range: 0.5 0 - 1.30 Glucose [Mass/Vol] 211 mg/dL above high threshold 74 - 99 [facility] [facility] 260 DO Work Phone: [phone] Phosphate [Mass/Vol] 4.5 mg/dL 2.5 - 4.9 MG-C [facility]olo gy[facility] [facility] 260 DO Work Phone: [phone] Comment on above: The performance waqar acteristics [...] above high threshold 136 - 145 [facility] [facility] 260 DO Work Phone: [phone] Urea nitrogen [Mass/Vol] 74 mg/dL above high threshold 6 - 23 [facility] [facility] 260 DO Work Phone: Renal Function Panel 31 {mL/min/1.73m2} Abnormal >60 [facility] [facility] 260 DO Work Phone: Comment on [...] a chemiluminescent microparticle immunoassay (CMIA) on the Salesman[employer] i system.Optimal therapeutic ranges for immuno-suppressant drugs depend upon an individualpatient's current clinical state, type oforgan transplant, time post-transplant,co-administration of other immunosuppressants,and other clinical factors. The results ofthis test should be correlated with additionalclinical and laboratory data before changesin treatment regimens are made. Troponin I, Serumon 12-21-19 Troponin I.cardiac [Mass/Vol] 0.02 ng/mL See Below [facility] [facility] 260 DO Work Phone: Comment on [...] is performed using different testing methodology at [facility] than at other [facility]. Direct result comparisons should only [...] above high threshold 211 - 911 MG-Cardiolo [facility]oo[facility] [facility] 260 [employer] Work Phone: Basic Metabolic PanelOrdered By: Manuel Conner on 12-19-2020 Anion gap [Moles/Vol] 11 mmol/L 9 - 17 mmol/L e(ye)BRAIN Phone: Calcium [Mass/Vol] 9.3 mg/dL 8.6 - 10. 4 mg/dL e(ye)BRAIN Phone: Chloride [Moles/Vol] 107 mmol/L 98 - 10 7 mmol/L e(ye)BRAIN Phone: CO2 [Moles/Vol] 23 mmol/L 20 - 31 mmol/L e(ye)BRAIN Phone: Creatinine [Mass/Vol] 2.53 mg/dL High 0.70 - 1.20 mg/dL e(ye)BRAIN Phone: GFR 30 mL/min Low >60 [employer] Phone: GFR Non- 25 mL/min Low >60 e(ye)BRAIN Phone: Glucose [Mass/Vol] 160 mg/dL High 70 - 99 mg/dL e(ye)BRAIN Phone: Interpretation and review of laboratory results Abnormal e(ye)BRAIN Phone: Potassium [Moles/Vol] 4.5 mmol/L 3.7 - 5.3 mmol/L e(ye)BRAIN Phone: Sodium [Moles/Vol] 141 mmol/L 135 - 144 mmol/L e(ye)BRAIN Phone: Urea nitrogen (BldV) [Mass/Vol] 76 mg/dL High 8 - 23 mg/dL e(ye)BRAIN Phone: Urea nitrogen/Creatinine (Bld) [Mass ratio] 30 High e(ye)BRAIN Phone: e(ye)BRAIN Phone: Laboratory - Chemistry and C hemistry - challengeOrdered By: Manuel Conner on 12-19-2020 GFR/1.73 sq M.predicted MDRD (S/P/Bld) [Vol rate/Area] e(ye)BRAIN Phone: Comment on above: Average GFR for 70 o r more years old: 75 mL/min/1.73sq m Chronic Kidney Disease: <60 mL/min/1.73sq m Kidney failure: <15 mL/min/1.73sq m eGFR calculated using average adult body mass. Additional eGFR calculator available at: http://www.[employer] [facility]/Double Doods_crcl_2012.htm Stage 1: Some kidney damage normal GFR Stage 2: Mild kidney damage GFR 60-89 Stage 3: Moderate kidney damage GFR 30-59 Stage 4: Severe kidney damage GFR 15-29 Stage 5: Severe kidney damage GFR <15 ESRD - chronic treatment by dialysis or transplant TroponinOrdered By: Manuel Conner on 12-19-2020 Interpretation and review of laboratory results Abnormal e(ye)BRAIN Phone: Troponin Interp NOT REPORTED e(ye)BRAIN Phone: Troponin T NOT REPORTED <0.03 ng/mL e(ye)BRAIN Phone: Troponin, High Sensitivity 57 ng/L Critically high 0 - 22 ng/L e(ye)BRAIN Phone: Comment on above: High Sensitivity Troponin values cannot be compared with other Troponin methodologies. Patients with high levels of Biotin oral intake (i.e >5mg/day) may have falsely decreased Troponin levels. Samples collected within 8 hours of biotin intake may require additional information for diagnosis. e(ye)BRAIN Phone: Basic Metabolic PanelOrdered By: Manuel Conner on 12-18-2020 Anion gap [Moles/Vol] 14 mmol/L 9 - 17 mmol/L e(ye)BRAIN Phone: Calcium [Mass/Vol] 9.3 mg/dL 8.6 - 10. 4 mg/dL e(ye)BRAIN Phone: Chloride [Moles/Vol] 104 mmol/L 98 - 10 7 mmol/L e(ye)BRAIN Phone: CO2 [Moles/Vol] 22 mmol/L 20 - 31 mmol/L e(ye)BRAIN Phone: Creatinine [Mass/Vol] 4.1 mg/dL High 0.70 - 1.20 mg/dL e(ye)BRAIN Phone: GFR 17 mL/min Low >60 [employer] Phone: GFR Non- 14 mL/min Low >60 e(ye)BRAIN Phone: Glucose [Mass/Vol] 148 mg/dL High 70 - 99 mg/dL e(ye)BRAIN Phone: Potassium [Moles/Vol] 5.2 mmol/L 3.7 - 5.3 mmol/L e(ye)BRAIN Phone: Sodium [Moles/Vol] 140 mmol/L 135 - 144 mmol/L e(ye)BRAIN Phone: Urea nitrogen (BldV) [Mass/Vol] 87 mg/dL High 8 - 23 mg/dL e(ye)BRAIN Phone: Urea nitrogen/Creatinine (Bld) [Mass ratio] 21 High e(ye)BRAIN Phone: Brain Natriuretic PeptideOrd ered By: Manuel Conner on 12-18-2020 BNP Interpretation Pro-BNP Reference Range: e(ye)BRAIN Phone: Comment on above: Rule Out: <300 [place]agan Zone: Age <50 300-450 Age 50-75 300-900 Age >75 300-1800 Usually represents mild to moderate HF but other cardiopulmonary causes cannot be ruled out. Rule In: Age <50 >450 Age 50-75 >900 Age >75 >1800 Interpretation and review of laboratory results Abnormal e(ye)BRAIN Phone: Natriuretic peptide B (Bld) [Mass/Vol] 846 pg/mL High <300 e(ye)BRAIN Phone: Comment on above: Pro-BNP results halie ot be compared to BNP results. e(ye)BRAIN Phone: EKG Rhythm StripOrdered By: Unknown Result on 12-18-2020 e(ye)BRAIN Phone: e(ye)BRAIN Phone: Glucose, Whole BloodOrdered By: Manuel Conner on 12-18-2020 Glucose [Mass/Vol] 152 mg/dL High 74 - 100 mg/dL e(ye)BRAIN Phone: Interpretation and review of laboratory results Abnormal e(ye)BRAIN Phone: e(ye)BRAIN Phone: Laboratory - Chemistry and C hemistry - challengeOrdered By: Manuel Conner on 12-18-2020 GFR/1.73 sq M.predicted MDRD (S/P/Bld) [Vol rate/Area] e(ye)BRAIN Phone: Comment on above: Average GFR for 70 o r more years old: 75 mL/min/1.73sq m Chronic Kidney Disease: <60 mL/min/1.73sq m Kidney failure: <15 mL/min/1.73sq m eGFR calculated using average adult body mass. Additional eGFR calculator available at: http://www.[employer]/multiple_crcl_2012.htm Stage 1: Some kidney damage normal GFR Stage 2: Mild kidney damage GFR 60-89 Stage 3: Moderate kidney damage GFR 30-59 Stage 4: Severe kidney damage GFR 15-29 Stage 5: Severe kidney damage GFR <15 ESRD - chronic treatment by dialysis or transplant No Panel InformationOrdered By: Manuel Conner on 12-18-2020 Interpretation and review of laboratory results Abnormal e(ye)BRAIN Phone: e(ye)BRAIN Phone: TroponinOrdered By: Manuel Conner on 12-18-2020 Troponin Interp NOT REPORTED e(ye)BRAIN Phone: Troponin T NOT REPORTED <0.03 ng/mL e(ye)BRAIN Phone: Troponin, High Sensitivity 71 ng/L Critically high 0 - 22 ng/L e(ye)BRAIN Phone: Comment on above: High Sensitivity Troponin [...] Consider advancement by 5-7 cm, if able. e(ye)BRAIN Phone: EXAMINATION: ONE XRA Y VIEW OF [...] cardiomegaly. Bony thorax is without acute abnormality. e(ye)BRAIN Phone: Roger, Mhpn Incoming R adiant Results From [facility] - 12/18/2020 1:31 PM EDT EXAMINATION: ONE [...] Consider advancement by 5-7 cm, if able. e(ye)BRAIN Phone: e(ye)BRAIN Phone: XR CHEST PORTABLEOrdered By: Manuel Conner on 12-18-2020 Mild prominence of interstitial markings suggests mild vascular congestion with mild streaky bibasilar atelectasis e(ye)BRAIN Phone: EXAMINATION: ONE XRA Y VIEW OF THE CHEST 12/18/2020 11:18 am COMPARISON: December 17, 2020, chest examination HISTORY: ORDERING SYSTEM PROVIDED HISTORY: Congestion TECHNOLOGIST PROVIDED HISTORY: Congestion FINDINGS: Median sternotomy. Stable cardiomegaly/mild tortuosity of the thoracic aorta Mild streaky bibasilar density. Mild prominence of interstitial markings Possible small right pleural effusion Degenerative changes of the thoracic spine/shoulders e(ye)BRAIN Phone: Roger, Mhpn Incoming R adiant Results From [facility] - 12/18/2020 11:26 AM EDT EXAMINATION: ONE [...] vascular congestion with mild streaky bibasilar atelectasis e(ye)BRAIN Phone: e(ye)BRAIN Phone: APTTOrdered By: Manuel lew on 12-17-2020 aPTT Coag (Bld) [Time] 22.8 s Low Me [employer] Phone: Comment on above: IV Heparin Therapy Range: 62.0-94.0 Interpretation and review of laboratory results Abnormal e(ye)BRAIN Phone: e(ye)BRAIN Phone: Blood Gas, VenousOrdered By: Manuel Conner on 12-17-2020 Shilo Test NOT REPORTED e(ye)BRAIN Phone: Carboxyhemoglobin NOT REPORTED 0.0 - 5.0 % e(ye)BRAIN Phone: Comment on above: FIO2 NOT REPORTED e(ye)BRAIN Phone: HCO3 (Bld) [Moles/Vol] 21.9 mmol/L Low 24.0 - 30.0 mmol/L e(ye)BRAIN Phone: Interpretation and review of laboratory results Abnormal e(ye)BRAIN Phone: Methemoglobin NOT REPORTED 0.0 - 1.9 % e(ye)BRAIN Phone: Mode NOT REPORTED e(ye)BRAIN Phone: Negative Base Excess, Angelo 5.7 mmol/L High 0.0 - 2.0 mmol/L e(ye)BRAIN Phone: NOTIFICATION NOT REPORTED e(ye)BRAIN Phone: NOTIFICATION TIME NOT REPORTED e(ye)BRAIN Phone: O2 Device/Flow/% NOT REPORTED e(ye)BRAIN Phone: Oxygen saturation in Blood 31.2 % Low 60.0 - 85.0 % e(ye)BRAIN Phone: Oxyhemoglobin NOT REPORTED 95.0 - 98.0 [...] Pt Temp 37.0 [facility] Work Phone: [phone] Pt. Position NOT REPORTED [facility] Work Phone: Respiratory Rate NOT REPORTED [facility] Work Phone: Sample Site NOT REPORTED [facility] Work Phone: Set Rate NOT REPORTED [facility] Work Phone: Text for Respiratory NOT REPORTED [facility] Work Phone: Total Hb NOT REPORTED 12.0 - 16.0 g/dl [facility] Work Phone: Total Rate NOT REPORTED [facility] Work Phone: VT NOT REPORTED [facility] Work Phone: [facility] Work Phone: Brain Natriuretic PeptideOrd ered By: Manuel Conner on 12-17-2020 BNP Interpretation Pro-BNP Reference Range: e(ye)BRAIN Phone: Comment on above: Rule Out: <300 Pagan Zone: Age <50 300-450 Age 50-75 300-900 Age >75 300-1800 Usually represents mild to moderate HF but other cardiopulmonary causes cannot be ruled out. Rule In: Age <50 >450 Age 50-75 >900 Age >75 >1800 Natriuretic peptide B (Bld) [Mass/Vol] 1428 pg/mL High <300 e(ye)BRAIN Phone: Comment on above: Pro-BNP results halie ot be compared to BNP results. CBC Auto DifferentialOrdered By: Manuel Conner on 12-17-2020 Absolute Eos # 0.03 e(ye)BRAIN Phone: Absolute Immature Granulocyte 0.03 e(ye)BRAIN Phone: Absolute Lymph # 0.96 Low e(ye)BRAIN Phone: Absolute Bartholomew # 0.52 e(ye)BRAIN Phone: Basophils (Bld) [#/Vol] 10*3/uL [facility] [employer] Phone: [phone] Basophils/100 WBC (Bld) 0 % 0 - 2 % [facility] [employer] Phone: Differential Type NOT REPORTED e(ye)BRAIN Phone: Eosinophils/100 WBC (Bld) 0 % Low 1 - 4 % e(ye)BRAIN Phone: Hematocrit (Bld) [Volume fraction] 37.2 % Low 40.7 - 50.3 % e(ye)BRAIN Phone: Hemoglobin.gastrointest inal spec 1 Ql (Stl) 11.5 g/dL Low 13.0 - 17.0 g/dL e(ye)BRAIN Phone: Immature granulocytes/100 WBC (Bld) 0 % 0 e(ye)BRAIN Phone: Interpretation and review of laboratory results Abnormal e(ye)BRAIN Phone: Lymphocytes/100 WBC (Bld) 11 % Low 24 - 43 % e(ye)BRAIN Phone: MCH (RBC) [Entitic mass] 28.5 pg 25.2 - 33.5 pg e(ye)BRAIN Phone: MCHC (RBC) [Mass/Vol] 30.9 g/dL 28.4 - 34.8 g/dL e(ye)BRAIN Phone: MCV (RBC) [Entitic vol] 92.3 fL 82.6 - 102.9 fL e(ye)BRAIN Phone: Monocytes/100 WBC (Bld) 6 % 3 - 12 % [facility] [employer] Phone: NRBC Automated 0.0 0.0 per 100 WBC e(ye)BRAIN Phone: Platelet distribution width (Bld) [Ratio] 13.0 % 11.8 - 14.4 % e(ye)BRAIN Phone: Platelet Estimate NOT REPORTED e(ye)BRAIN Phone: Platelet mean volume (Bld) [Entitic vol] NOT REPORTED 8.1 - 13.5 fL e(ye)BRAIN Phone: Platelets (Bld) [#/Vol] See Reflexed IPF Result e(ye)BRAIN Phone: RBC (Bld) [#/Vol] 4.03 10*6/uL Low 4.21 - 5.77 m/uL e(ye)BRAIN Phone: RBC (Bld) [#/Vol] NOT REPORTED e(ye)BRAIN Phone: Segmented neutrophils/100 WBC (Bld) 82 % High 36 - 65 % e(ye)BRAIN Phone: Segs Absolute 6.94 e(ye)BRAIN Phone: WBC (Bld) [#/Vol] 8.5 10*3/uL e(ye)BRAIN Phone: WBC (Bld) [#/Vol] NOT REPORTED e(ye)BRAIN Phone: e(ye)BRAIN Phone: COVID-19, RapidOrdered By: Agnieszka yaritza Conner on 12-17-2020 SARS-CoV-2 (COVID-19) RNA JOYCE+probe Ql (Unsp spec) Not detected Not Detected e(ye)BRAIN Phone: Comment on above: Rapid NAAT: The [...] management decisions. Fact sheet for Healthcare Providers: https://www.fda.gov/media/014297/download Fact sheet for Patients: https://www.fda.gov/media/768128/download Methodology: Isothermal Nucleic Acid Amplification Specimen Description .NASOPHARYNGEAL SWAB e(ye)BRAIN Phone: e(ye)BRAIN Phone: CT HEAD WO CONTRASTOrdered B y: Manuel Conner on 12-17-2020 No acute intracrania l abnormality. 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 Minimal parenchymal volume loss. Minimal chronic microvascular disease. e(ye)BRAIN Phone: EXAMINATION: CT OF T HE HEAD [...] of the visualized skull or soft tissues. e(ye)BRAIN Phone: Roger, pn Incoming R adiant Results From [facility] - 12/17/2020 9:36 AM EDT EXAMINATION: CT [...] parenchymal volume loss. Minimal chronic microvascular disease. e(ye)BRAIN Phone: e(ye)BRAIN Phone: Comprehensive Metabolic Pane l w/ Reflex to MGOrdered By: Manuel Conner on 12-17-2020 Albumin [Mass/Vol] 4 g/dL 3.5 - 5.2 g/dL e(ye)BRAIN Phone: Albumin/Globulin [Mass ratio] 1.3 {ratio} e(ye)BRAIN Phone: ALP (Bld) [Catalytic activity/Vol] 66 U/L 40 - 129 U/L e(ye)BRAIN Phone: ALT [Catalytic activity/Vol] 12 U/L 5 - 41 U/L e(ye)BRAIN Phone: Anion gap [Moles/Vol] 19 mmol/L High 9 - 17 mmol/L e(ye)BRAIN Phone: AST [Catalytic activity/Vol] 18 U/L <40 e(ye)BRAIN Phone: Bilirubin [Mass/Vol] 0.16 mg/dL Low 0.3 - 1 .2 mg/dL e(ye)BRAIN Phone: Calcium [Mass/Vol] 8.8 mg/dL 8.6 - 10. 4 mg/dL e(ye)BRAIN Phone: Chloride [Moles/Vol] 102 mmol/L 98 - 10 7 mmol/L e(ye)BRAIN Phone: CO2 [Moles/Vol] 19 mmol/L Low 20 - 31 mmol/L e(ye)BRAIN Phone: Creatinine [Mass/Vol] 6.59 mg/dL Critically high 0.7 0 - 1.20 mg/dL e(ye)BRAIN Phone: Free PSA/Total PSA [Mass fraction] 7.0 g/dL 6.4 - 8.3 g/dL e(ye)BRAIN Phone: GFR 10 mL/min Low >60 [employer] Work Phone: GFR Non- 8 mL/min Low >60 e(ye)BRAIN Phone: Glucose [Mass/Vol] 197 mg/dL High 70 - 99 mg/dL e(ye)BRAIN Phone: Potassium [Moles/Vol] 4.6 mmol/L 3.7 - 5.3 mmol/L e(ye)BRAIN Phone: Sodium [Moles/Vol] 140 mmol/L 135 - 144 mmol/L e(ye)BRAIN Phone: Urea nitrogen (BldV) [Mass/Vol] 96 mg/dL Critically high 8 - 23 mg/dL e(ye)BRAIN Phone: Urea nitrogen/Creatinine (Bld) [Mass ratio] 15 e(ye)BRAIN Phone: EKG 12 LeadOrdered By: Kathy Conner on 12-17-2020 Atrial Rate 85 BPM e(ye)BRAIN Phone: P [place] -15 degrees e(ye)BRAIN Phone: P-R Interval 224 ms e(ye)BRAIN Phone: Q-T Interval 414 ms e(ye)BRAIN Phone: QRS Duration 120 ms e(ye)BRAIN Phone: QTc Calculation (Bazett) 492 ms e(ye)BRAIN Phone: R [place] 99 degrees e(ye)BRAIN Phone: T [place] 44 degrees e(ye)BRAIN Phone: Ventricular Rate 85 BPM e(ye)BRAIN Phone: Sinus rhythm with 1s t degree A-V block Rightward axis Septal infarct , age undetermined Abnormal ECG No previous ECGs available Confirmed by JARON BERNARD ([id number]) on 12/17/2020 11:51:30 PM e(ye)BRAIN Phone: Roger, Mhpn Incoming E kg Results From [facility] - 12/17/2020 11:51 PM EDT Sinus rhythm with 1st degree A-V block Rightward axis Septal infarct , age undetermined Abnormal ECG No previous ECGs available Confirmed by JARON BERNARD ([id number]) on 12/17/2020 11:51:30 PM e(ye)BRAIN Phone: e(ye)BRAIN Phone: Immature Platelet FractionOr dered By: Manuel Conner on 12-17-2020 Interpretation and review of laboratory results Abnormal e(ye)BRAIN Phone: Platelet, Fluorescence 110 Low Me [employer] Phone: Platelet, Immature Fraction 4.6 % 1.1 - 10.3 % e(ye)BRAIN Phone: e(ye)BRAIN Phone: Laboratory - Chemistry and C hemistry - challengeOrdered By: Maneul Conner on 12-17-2020 GFR/1.73 sq M.predicted MDRD (S/P/Bld) [Vol rate/Area] e(ye)BRAIN Phone: Comment on above: Average GFR for 70 o r more years old: 75 mL/min/1.73sq m Chronic Kidney Disease: <60 mL/min/1.73sq m Kidney failure: <15 mL/min/1.73sq m eGFR calculated using average adult body mass. Additional eGFR calculator available at: http://www.[employer] High.MiTurno/multiple_crcl_2012.htm Stage 1: Some kidney damage normal GFR Stage 2: Mild kidney damage GFR 60-89 Stage 3: Moderate kidney damage GFR 30-59 Stage 4: Severe kidney damage GFR 15-29 Stage 5: Severe kidney damage GFR <15 ESRD - chronic treatment by dialysis or transplant Lactic AcidOrdered By: Kathy Conner on 12-17-2020 Lactate [Moles/Vol] 1.3 mmol/L 0.5 - 2. 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 Flow artifact in the proximal M1 segments of the bilateral MCAs and intracranial right ICA. The bilateral intracranial vertebral arteries are not imaged. e(ye)BRAIN Phone: EXAMINATION: MRA OF THE HEAD WITHOUT CONTRAST 12/17/2020 1:32 pm TECHNIQUE: MRA of the head was performed utilizing [id number] imaging with MIP images. No intravenous contrast [...] cerebral arteries. No evidence of intracranial aneurysm. e(ye)BRAIN Phone: Roger, Mhpn Incoming R adiant Results From [facility] - 12/17/2020 2:02 PM EDT EXAMINATION: MRA OF THE HEAD WITHOUT CONTRAST 12/17/2020 1:32 pm TECHNIQUE: MRA of the head was performed utilizing [id number] imaging with MIP images. No intravenous contrast [...] bilateral intracranial vertebral arteries are not imaged. 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 e(ye)BRAIN Phone: No acute intracrania l abnormality. 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 Mild parenchymal volume loss. Mild chronic microvascular disease. 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 e(ye)BRAIN Phone: EXAMINATION: MRI OF THE BRAIN WITHOUT [...] The soft tissues demonstrate no acute abnormality. e(ye)BRAIN Phone: Roger, [facility] Incoming R adiant Results From [employer] - 12/17/2020 1:55 PM EDT EXAMINATION: MRI [...] internal carotid artery, likely related to occlusion. [employer] Work Phone: [employer] Work Phone: Microscopic UrinalysisOrdere d By: Manuel Conner on 12-17-2020 - [employer] Work Phone: Amorphous, UA NOT REPORTED None [employer] Work Phone: Bacteria, UA NOT REPORTED None [employer] Work Phone: Casts UA NOT REPORTED /LPF [facility] Work Phone: Crystals, UA NOT REPORTED None /HPF [employer] Work Phone: Epithelial Cells UA 0 TO 2 [employer] Work Phone: Mucus, UA NOT REPORTED None [employer] Work Phone: Other Observations UA NOT REPORTED NOT REQ. [facility] Work Phone: RBC, UA 2 TO 5 [employer] Work Phone: Renal Epithelial, UA NOT REPORTED 0 /HPF [facility] [employer] Work Phone: Trichomonas, UA NOT REPORTED None [employer] Work Phone: WBC, UA [address] [facility] Work Phone: Yeast, UA NOT REPORTED None [employer] Work Phone: [facility] Work Phone: No Panel InformationOrdered By: Manuel Conner on 12-17-2020 Interpretation and review of laboratory results Abnormal [employer] Work Phone: [employer] Work Phone: Interpretation and review of laboratory results Abnormal [employer] Work Phone: [employer] Work Phone: Protime-INROrdered By: Kathy Conner on 12-17-2020 INR Coag (Bld) [Relative time] 1.1 {INR} e(ye)BRAIN Phone: Comment on above: Non-therapeutic Range: INR = 0.9-1.2 Therapeutic Range: Moderate Anticoagulant Intensity: INR = 2.0-3.0 High Anticoagulant Intensity: INR = 2.5-3.5 PT Coag (PPP) [Time] 13.7 s [employer] Phone: e(ye)BRAIN Phone: TroponinOrdered By: Manuel Conner on 12-17-2020 Interpretation and review of laboratory results Abnormal e(ye)BRAIN Phone: Troponin Interp NOT REPORTED e(ye)BRAIN Phone: Troponin T NOT REPORTED <0.03 ng/mL e(ye)BRAIN Phone: Troponin, High Sensitivity 79 ng/L Critically high 0 - 22 ng/L e(ye)BRAIN Phone: Comment on above: High Sensitivity Troponin values cannot be compared with other Troponin methodologies. Patients with high levels of Biotin oral intake (i.e >5mg/day) may have falsely decreased Troponin levels. Samples collected within 8 hours of biotin intake may require additional information for diagnosis. e(ye)BRAIN Phone: Troponin Interp NOT REPORTED e(ye)BRAIN Phone: Troponin T NOT REPORTED <0.03 ng/mL e(ye)BRAIN Phone: Troponin, High Sensitivity 85 ng/L Critically high 0 - 22 ng/L e(ye)BRAIN Phone: Comment on above: High Sensitivity Troponin values cannot be compared with other Troponin methodologies. Patients with high levels of Biotin oral intake (i.e >5mg/day) may have falsely decreased Troponin levels. Samples collected within 8 hours of biotin intake may require additional information for diagnosis. Urinalysis, reflex to micros copicOrdered By: Manuel Conner on 12-17-2020 Bilirubin Urine Negative NEGATIVE [employer] Work Phone: Color, UA Yellow Yellow [employer] Work Phone: Glucose, Ur Negative NEGATIVE [employer] Work Phone: Interpretation and review of laboratory results Abnormal [employer] Work Phone: Ketones Ql (U) Negative NEGATIVE [employer] Work Phone: Leukocyte esterase Test strip Ql (U) Negative NEGATIVE [employer] Work Phone: Nitrite, Urine Negative NEGATIVE [employer] Work Phone: pH, UA 5.5 [employer] Work Phone: Protein, UA TRACE Abnormal NEGATIVE e(ye)BRAIN Phone: Specific Mora, UA 1.025 High [employer] Work Phone: Turbidity UA Clear Clear [employer] Work Phone: Urinalysis Comments NOT REPORTED [facility] [employer] Work Phone: Urine Hgb TRACE Abnormal NEGATIVE e(ye)BRAIN Phone: Urobilinogen, Urine Normal Normal e(ye)BRAIN Phone: [employer] Work Phone: XR CHEST PORTABLEOrdered By: Manuel Conner on 12-17-2020 Mild streaky bibasil ar atelectasis with possible small bilateral pleural effusions e(ye)BRAIN Phone: EXAMINATION: ONE XRA Y VIEW OF THE CHEST 12/17/2020 9:30 am COMPARISON: None. HISTORY: ORDERING SYSTEM PROVIDED HISTORY: Congestion TECHNOLOGIST PROVIDED HISTORY: Congestion FINDINGS: Median sternotomy. Normal cardiopericardial silhouette Low volume lungs. Mild streaky bibasilar densities, possible possible small bilateral pleural effusions. Clear upper lungs Degenerative changes of the thoracic spine/shoulders e(ye)BRAIN Phone: Roger, Mhpn Incoming R adiant Results From [facility] - 12/17/2020 9:46 AM EDT EXAMINATION: ONE [...] atelectasis with possible small bilateral pleural effusions e(ye)BRAIN Phone: e(ye)BRAIN Phone: Vital Signs Date Time Vital Sign Value Performing Clinician Facility 07-03-2021 15:01-0400 Body temperature 99.32 [degF] Michael Carballo Other Phone: [facility] 07-03-2021 15:01-0400 Diastolic blood pressure 66 mm[Hg] Michael Carballo Other Phone: [facility] 07-03-2021 15:01-0400 Heart rate 80 /min Michael Carballo Other Phone: [facility] 07-03-2021 15:01-0400 Respiratory rate 22 /min Michael Carballo Other Phone: [facility] 07-03-2021 15:01-0400 SaO2% (BldA) [Mass fraction] 97 % Michael Carballo Other Phone: [facility] 07-03-2021 15:01-0400 Systolic blood pressure 127 mm[Hg] Michael Carballo Other Phone: [facility] 07-03-2021 06:30-0400 Body weight 100.5 kg Michael Carballo Other Phone: [facility] 06-27-2021 13:00-0400 Diastolic blood pressure 69 mm[Hg] MD Michael Carballo Work Phone: [facility] 06-27-2021 13:00-0400 Heart rate 87 /min MD Michael Carballo Work Phone: [facility] 06-27-2021 13:00-0400 Respiratory rate 17 /min MD Michael Carballo Work Phone: [facility] 06-27-2021 13:00-0400 SaO2% (BldA) [Mass fraction] 94 % MD Michael Carballo Work Phone: [facility] 06-27-2021 13:00-0400 Systolic blood pressure 153 mm[Hg] MD Michael Carballo Work Phone: [facility] 06-27-2021 08:00-0400 Body temperature 97.9 [degF] MD Michael Carballo Work Phone: [facility] 06-27-2021 05:44-0400 Body weight 106.5 kg MD Michael Carballo Work Phone: [facility] 06-26-2021 14:12-0400 Body height 182.88 cm MD Michael Carballo Work Phone: [facility] 06-26-2021 00:24-0400 Body height 182.88 cm MD Michael Carballo Work Phone: [facility] 06-26-2021 00:24-0400 Body mass index (BMI) [Ratio] 32.8 kg/m2 MD Michael Carballo Work Phone: [facility] 06-26-2021 00:24-0400 Body temperature 97.7 [degF] MD Michael Carballo Work Phone: [facility] 06-26-2021 00:24-0400 Body weight 109.9 kg MD Michael Carballo Work Phone: [facility] 06-26-2021 00:24-0400 Diastolic blood pressure 100 mm[Hg] MD Michael Carballo Work Phone: [facility] 06-26-2021 00:24-0400 Heart rate 88 /min MD Michael Carballo Work Phone: [facility] 06-26-2021 00:24-0400 Respiratory rate 18 /min MD Michael Carballo Work Phone: [facility] 06-26-2021 00:24-0400 SaO2% (BldA) [Mass fraction] 96 % MD Michael Carballo Work Phone: [facility] 06-26-2021 00:24-0400 Systolic blood pressure 221 mm[Hg] MD Michael Carballo Work Phone: [facility] 12-19-2020 20:01-0400 Diastolic blood pressure 64 mm[Hg] Manuel Conner MD Work Phone: [employer] Work Phone: 12-19-2020 20:01-0400 Systolic blood pressure 182 mm[Hg] Manuel Conner MD Work Phone: [employer] Work Phone: 12-19-2020 19:00-0400 Heart rate 75 /min Manuel Conner MD Work Phone: [employer] Work Phone: 12-19-2020 19:00-0400 Respiratory rate 23 /min Manuel Conner MD Work Phone: [employer] Work Phone: 12-19-2020 19:00-0400 SaO2% (BldA) [Mass fraction] 94 % Manuel Conner MD Work Phone: [employer] Work Phone: 12-18-2020 06:30-0400 Body temperature 98.29 [degF] Manuel Conner MD Work Phone: [employer] Work Phone: Encounters Encounter Date Encounter Type Care Provider Facility Start: 09-28-2022 AUDIT Michael Carballo Work Phone: YE-Oezptasvbp-Mpgruliy SJ[facility] 260 DO Work Phone: Start: 07-24-2022 End: 07-24-[address] MICHAEL CARBALLO . Facility: Start: 07-15-2022 End: 07-15-[address] MICHAEL CARBALLO . Facility: Start: 07-13-2022 Patient encounter procedure Michael Carballo Work Phone: SJ-Ebwyjzyjow-DLD [facility] [address] Work Phone: Start: 07-13-2022 Phys/qhp telephone evaluation 11-20 min Michael Carballo Work Phone: GZ-Gvxnmxzycu-RVS [facility] [address] Work Phone: Start: 07-13-2022 ambulatory MD SCOUT ROMO Facility:[facility] Start: 07-13-2022 End: 07-13-[address] MICHAEL CARBALLO . Facility: Start: 07-09-2022 AUDIT Michael Carballo Work Phone: ZW-Xiwtnxqumh-XJG [facility] [address] Work Phone: Start: 06-08-2022 ambulatory Facility: [facility] Start: 06-05-2022 End: 06-05-[address] MICHAEL CARBALLO . Facility: Start: 06-04-2022 End: 06-04-[address] MICHAEL CARBALLO . Facility: Start: 04-14-2022 End: 04-15-2022 ambulatory DONNA Morfin [facility] Start: 04-14-2022 End: 04-14-2022 Subsequent hospital visit by physician Michael Carballo Work Phone: [facility] Start: 10-30-2021 End: 10-31-2021 ambulatory Manfred Wilson Facility:[facility] Start: 10-28-2021 End: 10-28-[address] MICHAEL CARBALLO . Facility: Start: 10-15-2021 Patient encounter procedure Michael Carballo Work Phone: OL-Bvbivxorhx-OPG [facility] [address] [place] Work Phone: Start: 10-15-2021 ambulatory DO FELICIA ASTORGA Facility:[facility] Start: 08-05-2021 End: 08-06-[address] MICHAEL CARBALLO . Facility: Start: 07-16-2021 Office outpatient vi sit 25 minutes Michael Carballo Work Phone: SY-Bkgckfmudp-ZBR [facility] [address] [place] Work Phone: Start: 07-16-2021 Patient encounter procedure Michael Carballo Work Phone: RG-Qhhlomjxcq-SFB [facility] [address] [place] Work Phone: Start: 06-27-2021 End: 07-03-2021 [facility] and [id number] Start: 06-25-2021 End: 06-27-2021 Evaluation and management of inpatient MD Michael Carballo Work Phone: [facility] Start: 06-25-2021 Patient encounter procedure Michael Carballo Work Phone: PY-Baifupfaee-TPQ [facility] [address] [place] Work Phone: Start: 06-24-2021 End: 06-24-2021 Patient encounter procedure MD Michael Carballo Work Phone: [facility] Start: 05-28-2021 AUDIT Michael Carballo Work Phone: PA-Xmfeuafjez-SMP [facility] [address] [place] Work Phone: Start: 05-27-2021 End: 05-27-2021 Patient encounter procedure MD Michael Carballo Work Phone: [facility] Start: 01-01-2021 Patient encounter procedure Michael Carballo Work Phone: UG-Iydolalirn-QJV [facility] [address] [place] Work Phone: Start: 01-01-2021 WANG, Provider : Rizwan,Felicia, Status: Pen, Time: 2:20 PM Michael Carballo Work Phone: SX-Ezdyrspgyf-Mzhkmcpk [facility] 260 DO Work Phone: Start: 12-31-2020 AUDIT Michael Carballo Work Phone: IY-Behtkfslav-Gtngzodf [facility] 260 DO Work Phone: Start: 12-17-2020 End: 12-19-2020 Emergency department patient visit Manuel Conner MD Work Phone: [facility] ED Comment on above: [place] coma scale t otal score 13-15, at hospital admission (Primary Dx); Acute kidney injury (HCC); Heart replaced by transplant (HCC); Confusion Start: 11-21-2020 AUDIT Michael Carballo Work Phone: SB-Itsfktiknv-HYV [facility] [address] [place] Work Phone: Start: 10-31-2020 AUDIT Michael Carballo Work Phone: [facility] Work Phone: Procedures Date Procedure [...] 12-18-2020 Radiologic exam ches t single view Mnauel Conner MD Work Phone: Start: 12-18-2020 End: [...] heart recipient Heart repla vaibhav by transplant ([facility]) Manuel Conner MD Work Phone: H/O: heart [...] Montse Villanueva, Status: Pen, Time: 2:00 PM SP-Upnhwlgygb-SGF [facility] [address] Work Phone: Start: 07-13-2022 WANG, Provider : Scout Romo, Status: Pen, Time: 1:40 PM VIRFUCORI, Provider: Scout Romo, Status: Pen, Time: 1:40 PM TW-Gczygmpxfh-BIY [facility] [address] Work Phone: Start: 04-01-2022 WANG, Provider : Felicia Astorga, Status: Pen, Time: 1:00 PM WANG, Provider: Felicia Astorga, Status: Pen, Time: 1:00 PM PL-Jkpfrmeiqu-ARW [facility] [place] Work Phone: Start: 12-19-2021 Creatinine measurement Creatinine [facility] Work Phone: Start: 12-19-2021 Potassium monitoring Potassium monit nyla e(ye)BRAIN Phone: Start: 10-20-2021 Influenza vaccination Flu vaccine (# 1) LEONID [facility] Start: 07-16-2021 Patient encounter procedure [facility] Start: 07-03-2021 End: 07-04-2022 Insulin Glargine (Lantus) Injectable Subcutaneous Once ; DOSE = 12 unit(s) SubCutaneous At BedtimeNotes from Pharmacy: [facility] Start: 03-Jul-2021 End: 03-Jul-2022 Ordered: 03-Jul-2021 Magy Galeas Intent [facility] Start: 07-01-2021 End: 07-02-2022 [facility] Comment on above: IF patient HAS a [...] End: 30-Jun-2022 Ordered: 30-Jun-2021 Jihan Storm Intent [facility] Start: 06-27-2021 End: 06-28-2022 Sodium Chloride 0.9% Injectable Flush Peripheral Line ; via Peripheral LineVolume = 10 mL IntraVenous Flush Every 8 Hours and as Needed Start: 27-Jun-2021 End: 27-Jun-2022 Ordered: 26-Jun-2021 Magy Galeas Intent [facility] Start: 06-26-2021 Duplex scan of upper limb arteries US arterial duplex UE RT [facility] Start: 12-17-2020 Annual Wellness Visi t (AWV) Annual Wellness Visit (AWV) [facility] Start: 11-20-2020 Influenza vaccination Flu vaccine (# 1) [employer] Work Phone: Start: 07-16-2020 COVID-19 Vaccine (3 - Pfizer risk 3-dose series) COVID-19 Vaccine (3 - Pfizer risk 3-dose series) [employer] Work Phone: Start: 07-16-2020 COVID-19 Vaccine (3 - Pfizer risk series) COVID-19 Vaccine (3 - Pfizer risk series) [facility] Start: 10-01-2016 Pneumococcal 65+ yrs at Risk Vaccine (2 of 2 - PCV13) Pneumococcal 65+ yrs at Risk Vaccine (2 of 2 - PCV13) e(ye)BRAIN Phone: Start: 10-10-1993 Shingles Vaccine (1 of 2) Shingles Vaccine (1 of 2) [employer] Work Phone: Start: 10-10-1962 DTaP/Tdap/Td vaccine (1 - Tdap) DTaP/Tdap/Td vaccine (1 - Tdap) [facility] Start: 10-10-1962 Shingles vaccine (1 of 2) Shingles vaccine (1 of 2) [facility] Start: 10-10-1961 Hepatitis C screening Hepatitis C sc reen [facility] [employer] Start: 1955 Depression Screen Depression Screen [facility] Start: 10-10-1953 Lipid panel [facility] Start: 1943 Hepatitis C screening Hepatitis C sc reen [facility] Work Phone: Calcium [Mass/volume ] in Serum or Plasma [facility] Work Phone: Carbon dioxide, tota l [Moles/volume] in Serum or Plasma [facility] Work Phone: Chloride [Moles/volu me] in Serum or Plasma [facility] Work Phone: Creatinine and Glomerular filtration rate.predicted panel - Serum, Plasma or Blood [facility] Work Phone: Culture, Blood 1 [facility] Work Phone: Culture, Wound Culture, Wound Microbiology Routine 04/14/2022 3:25 PM EST [facility] [place] Work Phone: Glucose [Mass/volume ] in Serum or Plasma [facility] Work Phone: Goals of care, counseling/discussion [facility] Measurement of renal function [facility] Work Phone: Potassium [Moles/volume] in Serum or Plasma [facility] Work Phone: Sodium [Moles/volume ] in Serum or Plasma [facility] Work Phone: Tacrolimus [Mass/volume] in Blood [facility] Work Phone: End: 12-18-2020 Tacrolimus Level [facility] Work Phone: Comment on above: One Time for 1 Occur rences starting 12/18/2020 until 12/18/2020 End: 12-19-2020 Tacrolimus Level Tacrolimus Level Lab Routine One Time for 1 Occurrences starting 12/19/2020 until 12/19/2020 [employer] Work Phone: Comment on above: One Time for 1 Occur rences starting 12/19/2020 until 12/19/[address] [facility] Work Phone: Urea nitrogen [Mass/volume] in Serum or Plasma [facility] Work Phone: Immunizations Immunization Date Immunization Notes Care Provider Haven de leon 03-21-2021 Pfizer-BioNTech COVI D-19 Vacc 30 MCG/0.3ML Intramuscular Suspension Michael Carballo Work Phone: PY-Zszkphwfma-YZA [facility] [address] [place] Work Phone: 06-18-2020 Pfizer-BioNTech COVI D-19 Vacc 30 MCG/0.3ML Intramuscular Suspension Michael Candelario Carballo Work Phone: [facility] Work Phone: 05-27-2020 Pfizer-BioNTech COVI D-19 Vacc 30 MCG/0.3ML Intramuscular Suspension Michael E Carballo Work Phone: [facility] Work Phone: 12-29-2019 Seasonal trivalent influenza vaccine, adjuvanted, preservative free Michael Palomino Carballo Work Phone: [facility] Work Phone: 12-22-2017 Seasonal trivalent influenza vaccine, adjuvanted, preservative free Michael Palomino Carballo Work Phone: [facility] Work Phone: 12-28-2016 Seasonal trivalent influenza vaccine, adjuvanted, preservative free Michael Palomino Carballo Work Phone: [facility] Work Phone: 12-24-2015 influenza, high dose seasonal, preservative-free Michael Palomino Carballo Work Phone: [facility] Work Phone: 10-02-2015 influenza, seasonal, injectable Michael Palomino Carballo Work Phone: [facility] Work Phone: 10-02-2015 pneumococcal polysaccharide vaccine, 23 valent Michael Palomino Carballo Work Phone: [facility] Work Phone: 01-09-2015 influenza, injectabl e, quadrivalent, contains preservative Michael Palomino Carballo Work Phone: [facility] Work Phone: 01-03-2013 influenza, seasonal, injectable Michael Palomino Carballo Work Phone: [facility] Work Phone: 01-07-2009 influenza virus vacc ine, whole virus Michael Christianight Work Phone: [facility] Work Phone: 01-20-2005 influenza virus vacc ine, whole virus Michael Palomino Carballo Work Phone: [facility] Work Phone: Payers Date Payer Category Payer Self-pay [id number] 1961 Medicaid [id number] 1961 Medicare [id number] 1961 Medicare [id number] 1959 Private Health Insurance [id number] 1943 Unknown [id number] 2.16.8 [id number] 1943 Unknown [id number] 2.16.84 [id number] 1943 Unknown [id number] 2.16.84 [id number] 1943 Unknown [id number] 2.16.84 [id number] 1943 Unknown [id number] 2.16.84 [id number] 1943 Unknown [id number] 2.16.84 [id number] 1943 Unknown [id number] 2.16.84 [id number] 1943 Unknown [id number] 2.16.84 [id number] 1943 Unknown [id number] 2.16. [id number] 1943 Unknown [id number] 2.16. [id number] Unknown Unknown [id number] 2.16.8 [id number] Social History Date Type Detail Facility Former smoker Former smoker [employer] Work Phone: Start: 12-17-2020 Tobacco smoking stat us AZIS Unknown if ever smoked [employer] Work Phone: Start: 1945 Sex Assigned At Not on file [facility] [employer] Work Phone: Exposure to SARS-CoV -2 (event) Unable to assess [employer] Start: 12-13-2020 [facility] Start: 1945 Sex Assigned At Male F [facility] Start: 06-26-2021 End: 06-26-2021 Tobacco smoking status NHIS Ex-smoker (finding) [facility] End: 03-22-[address] [facility] Work Phone: Goals Date Patient Goal Desired Activity /State Functional Status Date Assessment Result Facility 06-27-2021 Functional status [facility] at [facility] Work Phone: Functional observable [facility] [place] Mental Status Date Assessment Result Facility 06-30-2021 Cognitive functi ons [id number] [facility] 06-27-2021 Cognitive function Cognitive Sta tus Patient at [facility] Work Phone: Clinical Notes 07-05-2000 to 07-03-2021 <item><item><item><item><item><item><item><item><item> Note Date & Type Note Facility 07-03-2021 Hospital Discharge instructions Activity:activity with assistance. May shower.Labs 1 (Modify Template):Lab Test(s): Basic Metabolic Panel, CBC, Tacrolimus levelDate To Be Drawn: 07/07/2021all Results To: Dr. Felicia Moore Results To: [id number] Orders:Blood Glucose Monitoring: ACHSAdditional Instructions: Use of [...] Uncontrolled diabetesCall to Schedule in: 2 weeksLocation: [facility]: [facility] Up Appointment 2:Physician/Dept/Service: Dr. Felicia Astorga / Heart failure and transplantReason for Referral: hospital follow-upLocation: [facility] 1800Comments: Our office will call you to set up an appointment either in person or virtually. [facility] 06-27-2021 Discharge summary Note Date/Time June 27, 2021 10:32am [facility] [address] [place] [address] Discharge Summary Signed Patient: Oliverio Escobedo MR#: [id number] : 1945 Acct:[id number] Age/Sex: 75 / M Adm Date: 2 Loc: Room: [address] [place] [address]: Yoshi Hernandez MD Copies to: MD Justa OlveraATRIUM HEALTHSHELLY Howard Providers Date of Discharge: 06/27/21 Discharging [...] 1 tab PO BID RF: 0 omega 7-qne-out-fish oil [Fish Oil] 1,000 mg (120 mg-180 [...] signed by Yoshi Hernandez MD> 06/27/21 1032 [facility] Work Phone: 1(366) 896-556204-08-2022 Progress note Author Bonilla Ortiz [facility] June 27, 2021 10:27am Note Date/Time June 27, 2021 10:2 7am [facility] [address] [place] [address] Cardiology Progress Note Signed Patient: Oliverio Escobedo MR#: [id number] : 1945 Acct:[id number] Age/Sex: 75 / M Adm Date: 2 Loc: 3T Room: [address] [place] [address] Type : ADM INOo Attending Dr: Yoshi Hernandez MD Copies to: ~ Date of Service: 06/27/2021 Subjective Principal diagnosis: Edema w history of orthotopic heart transplant Interval history: Mr. Escobedo is a 75 year old male with known history of orthotopic heart transplantation in 2000 done at [facility] who was admitted to the inpatient hospitalist service last night after presenting from the [facility] with complaints of increasing swelling in both legs and the right arm for several days. The patient is resting comfortably this morning. He did diurese gently yesterday. He currently has no cardiac complaints. His breathing feels comfortable lying flat at rest. Swelling in both feet and calves is still present. NB: The patient has been accepted by the transplant service at [facility]. At this point we are [...] Agree with transfer to transplant service at [facility] for further management. Plan Thank you very much for this kind consultation and for allowing me to participate in the care of this very pleasant patient. Time spent with patient Time Spent With Patient (min): 20 Documented By: Bonilla Ortiz MD 06/27/21 1024 Signed By: <Electronically signed by Bonilla Ortiz MD> 06/27/21 1027 [facility] Work Phone: 1(990) 655-295004-07-2022 Progress note Author Yoshi Wu [facility] June 26, 2021 6:27pm Note Date/Time June 26, 2021 6:27 pm [facility] [address] [place] [address] Hospitalist Progress Note Signed Patient: Oliverio Escobedo MR#: [id number] : 1945 Acct:[id number] Age/Sex: 75 / M Adm Date: 2 Loc: Room: [address] [place] [address] Type : ADM INOo Attending Dr: Yoshi [...] Oil 1,000 mg 06/26/21 09:00 06/26/21 09:01 Barling-3/Fish Oil 1,000 Mg Capsule PO 06/26/22 08:59 [...] <Electronically signed by Yoshi Hernandez MD> 06/26/21 433 [facility] Work Phone: 1(224) 985-473304-07-2022 Consult note Author Bonilla Ortiz [facility] June 26, 2021 2:26pm Note Date/Time June 26, 2021 2:23 pm [facility] [address] [place] [address] Cardiology Consult Note Signed Patient: Oliverio Escobedo MR#: [id number] : 1945 Acct:[id number] Age/Sex: 75 / M Adm Date: 2 Loc: Room: [address] [place] [address] Type : ADM INOo Attending Dr: Yoshi Hernandez MD Copies to: MD Manfred Olvera([facility]) DO Bonilla Wilson MD~ Cardiology HPI History of Present Illness Consult Date: 06/26/21 Reason for Consult: Bilateral lower extremity swelling Remote history of orthotopic heart transplantation HPI: Mr. Escobedo is a 75 year old male with known history of orthotopic heart transplantation in 2000 done at [facility] who was admitted to the inpatient hospitalist service last night after presenting from the [facility] with complaints of increasing swelling in [...] the results were sent to his transplant psychiatric social worker in [place]. She doesnot know the results. On my evaluation the patient was undergoing bedside transthoracic echocardiography. Preliminary interpretation of the study shows normal resting left ventricular regional wall motion and systolic function. Ejection fraction appears greater than 55%. There is no notable pericardial or pleural effusion. There is no notable/significant valvular heart disease noted. By report the patient's transplant service at [facility] has been contacted and is [...] PO BID 02/02/17 [History Confirmed 06/25/21] omega 8-csm-nfy-fish oil 1,000 mg (120 mg-180 mg) capsule [...] x10E3/uL Lymph # (Auto) 1.0 (1.00-4.8) x10E3/uL Bartholomew # (Auto) 0.5 (0.0-0.8) x10E3/uL Eos # [...] Agree with transfer to transplant service at [facility] for further management. Code(s): Z94.1 - Heart transplant status Plan Thank you very much for this kind consultation and for allowing me to participate in the care of this very pleasant patient. Documented By: Bonilla Ortiz MD 06/26/21 1415 Signed By: <Electronically signed by Bonilla Ortiz MD> 06/26/21 1426 [facility] Work Phone: 1(371) 222-123204-07-2022 History and physical note Author Omid Myrick [facility] June 26, 2021 7:44am Note Date/Time June 26, 2021 12:1 6am [facility] [address] [place] [address] Hospitalist H&P Signed Patient: Oliverio Escobedo MR#: [id number] : 1945 Acct:[id number] Age/Sex: 75 / M Adm Date: 2 Loc: 3T Room: [address] [place] [address] Type : ADM INOo Attending Dr: Yoshi Hernandez MD Copies to: MD Manfred Olvera([facility]) DO Audra Wilson APRN Marwan Wassouf, MD~ [...] [facility] but were unable. Patient is hard of [...] PO BID 02/02/17 [History Confirmed 06/25/21] omega 8-jjb-bos-fish oil 1,000 mg (120 mg-180 mg) capsule [...] Lymph % (Auto) 12.9 % (.) 06/25/21: Bartholomew % (Auto) 7.3 % (.) 06/25/21: Eos % (Auto) 4.6 % (.) 06/25/21: Baso % (Auto) 0.6 % (.) 06/25/21: Neut # (Auto) 5.6 x10E3/uL (1.8-7.7) 06/25/21: Lymph # (Auto) 1.0 x10E3/uL (1.00-4.8) 06/25/21: Bartholomew # (Auto) 0.5 x10E3/uL (0.0-0.8) 06/25/21: Eos [...] MD Documented By: Audra Quinteros APRN 06/25/21 1494 Signed By: <Electronically signed by GABBIE Quinteros> 06/26/21 0057 <Electronically signed by Omid Myrick MD> 06/26/21 9144 [facility] Work Phone: 1(941) 782-924609-30-2021 Evaluation note* Diagnosis [place] coma scale total score 13-15, at hospital admission- Primary Acute kidney injury (HCC) Acute kidney failure, unspecified Heart replaced by transplant (HCC) Heart replaced by transplant Confusion Unspecified psychosis documented in this encounter [facility] Work Phone: 1(102) 226-696909-30-2021 History of Present illness Narrative* 74 yo [...] trazodone and aripirazole. Discharged back to [facility] with 2x/week home trips. * Immunosuppression: MMF 250 mg BID, tacrolimus 1.5 mg BID (FK 5.4 on 12/24/20, goal 5-8) * Rejection Hx/DSAs: None documented * Last echo: 12/20/20 OL-Peanndqorv-ORV [facility] [address] [place] Work Phone: 1(241) 904-962609-28-2021 History of Present illness Narrative* Liliya Baker RN - 12/17/2020 10:31 AM EDT Spoke with nurse from [facility] at this time. They will fax lab work to us from [facility]. documented in this [facility] Work Phone: [phone]) 741-856204-16-2001 History of Present illness Narrative* Mr. Escobedo [...] Hx/DSAs: None documented * Last echo: 12/20/20 DB-Teoibvxmhu-QFB [facility] [address] Work Phone: Chief complaint Narrative [...] 04:20 PM , for a telehealth visit. RX-Nmgjptgayc-WGX [facility] [address] [place] Work Phone: Evaluation noteNo assessment information available [facility] Work Phone: Evaluation note* Diagnosis Onset Date Resolution Status Acute kidney injury acute Bilateral edema of lower extremity acute Shortness of breath acute [facility] Work Phone: Evaluation note* Diagnosis Onset Date Resolution Status Acute kidney injury acute Bilateral edema of lower extremity acute History of heart transplant acute Shortness of breath acute [facility] Work Phone: Evaluation note* Psychological: Appropriate [...] distress, alert and cooperative, hard of hearing [facility]* Mr. Escobedo is [...] trazodone and aripirazole. Discharged back to [facility] with 2x/week home trips. * Immunosuppression: MMF 250 mg BID, tacrolimus 1.5 mg BID (FK 5.4 on 12/24/20, goal 5-8) * Rejection Hx/DSAs: None documented * Last echo: 12/20/20 GH-Taqjrqdapp-HXR [facility] [address] [place] Work Phone: History of Present [...] LE edema. Spoke with RN at [facility]; states LE edema has been ongoing for several weeks, with a rash . * Labs drawn 06/24/21; BNP 224 * Immunosuppression: MMF 250 mg BID, tacrolimus 1.5 mg BID (FK 5.4 on 12/24/20, goal 5-8) - FK pendingfrom 06/24/21 from SNF * Rejection Hx/DSAs: None documented * Last echo: 12/20/20 VF-Nvrhnnopog-PKE [facility] [address] [place] Work Phone: History of Present [...] Hx/DSAs: None documented * Last echo: 12/20/20 FP-Ftewyffsmc-MFL Heather [facility] [address] [place] Work Phone: History [...] Hx/DSAs: None documented * Last echo: 12/20/20 KK-Nqwrajspjx-UCE Heather [facility] [address] [place] Work Phone: History [...] Hx/DSAs: None documented * Last echo: 12/20/20 AW-Icxeznwukc-VBN Heather [facility] [address] [place] Work Phone: Reason for referral (narrative)* Reason for Referral: HF, DAVID, scabies [facility] Family History No Family History Records FoundUnknown [...] content) Reason Comments Altered Mental Status onset PSYCHOLOGY DEPARTMENT CHAIR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; staff state pt would not respond and stared off into space Hypotension PSYCHOLOGY DEPARTMENT CHAIR staff from [place] rn state BP 70s/ANGELICA [...] is suspension with MINIMUM of SIZE 8 MOHAWK 1500 (Given - Provider: Sola Dee RN)[id number] [...] Active Yoshi Hernandez MD Attending Provider Active [employer]ber [employer] Relationship Specialty Start Date End Date Michael Carballo [address] [place] [address] PCP - General Specialist 12/17/20 Goals (unrecognized [...] and content) DATE CREATED AUTHOR 07/14/2021 [facility] DATE CREATED AUTHOR AUTHOR'S ORGANIZ ATION 04/18/2022 [facility] DATE CREATED AUTHOR AUTHOR'S ORGANIZ ATION 07/17/2022 [employer] DATE CREATED AUTHOR AUTHOR'S ORGANIZ ATION 07/31/2022 [facility] DATE CREATED AUTHOR AUTHOR'S ORGANIZ ATION 09/07/2022 [facility] DATE CREATED AUTHOR AUTHOR'S ORGANIZ ATION 09/14/2022 [facility] DATE CREATED AUTHOR AUTHOR'S ORGANIZ ATION 11/21/2022 [facility] FOR RECORDS PERTAINING TO PATIENTS WHO [...] BE BASED ON THE PRIMARY CLINICAL RECORDS. [employer] provides no warranty or guarantee of the accuracy or completeness of information in this document.
--- OUTSIDE RECORDS SUMMARY | 2023-04-16 06:40 | XMS_ITS | CCD ---
Author Name Unknown Address [address] [place] [address] Organization [facility] Care Team Providers Care Fuel 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 Name Role Phone Michael Carballo Unavailable Unavailable Unavailable Michael Carballo Primary Care Provider MD Michael Carballo Primary Care Provider [phone] JIL Davies Attending Provider DO Manfred Wilson [facility] Andrew Hern[facility]dez Emergency Provider MD Omid Myrick Admit Provider MD Omid Myrick Attending Provider [phone] Al MD Yoshi Campoverde Attending Provider Michael Carballo Unavailable Dionjarret, Pascualaashish Unavailable Palliative Care Unavailable Unavailable Gene Shook Unavailable Felicia Astorga Unavailable Michael Carballo Primary Care Provider [phone] DONNA ARELLANO Referring Unavailable MICHAEL CARBALLO Primary [...] SCOUT ROMO Attending Unavailable Carballo, Dr. Michael óLpez Primary Care Unavailab DO FELICIA Frank Attending Unava ilable Carballo, Dr. Michael López Primary Care Unavailab Manfred Barlow Primary Care Unavailable Anna Tucker Attending Unavailable Anna Tucker Admitting Unavailable Allergies Allergy Classification Reported Allergen(s) Allergy Type Date of Onset Reaction(s) Facility (8 sources) Allopurinol; Translations: [allopurinol] Drug Allergy 10-16-2018 [facility] (8 sources) ceFAZolin; Translations: [Cefazolin] Drug Allergy 06-25-2021 Rash, Unknown [facility] Comment on above: extensive fiery red and warm flat rash (1 source) Allopurinol Drug Allergy [facility] (1 source) ceFAZolin Drug Allergy [facility] (1 source) Allopurinol Drug Allergy 06-25-2021 [facility] Medications Current Medications Medication [...] Start: 11-03-2018 take 1 capsule by [facility] once daily in the evening dilTIAZem HCl ER Coated Beads 300 MG Oral Capsule Extended Release 24 Hour take 1 capsule every evening Quantity: 0 Refills: 0 Ordered: 04-Jul-2021 Felicia Astorga DO Start : 03-Nov-2018 Active Start: 11-03-2018 take 1 capsule by [facility] once daily dilTIAZem HCl ER Coated Beads 360 MG Oral Capsule Extended Release 24 Hour TAKE 1 CAPSULE Daily Quantity: 30 Refills: 11 Ordered: 03-Nov-2018 Felicia Astorga DO Start : 03-Nov-2018 Active Start: 11-03-2018 take 1 capsule by [facility] once daily dilTIAZem HCl ER Coated Beads 240 MG Oral Capsule Extended Release 24 Hour TAKE 1 CAPSULE Daily Quantity: 90 Refills: 3 Ordered: 24-Dec-2020 Felicia Astorga DO Start : 03-Nov-2018 Active Start: 10-31-2018 take 1 capsule by [facility] every twenty-four hours dilTIAZem [...] mg Start: 10-31-2018 take 1 tablet by [facility] three times daily hydrALAZINE HCl - 100 [...] mg Start: 11-02-2018 take 1 capsule by [facility] every twelve hours Mycophenolate [...] Tamiko Dsouza Status: Discontinued Generic Substitution Allowed [place] 4-Pxb-Dgt-Fish Oil (Fish Oil) 1,000 mg (120 mg-180 mg) Capsule (4 sources) Start: 08-05-2017 take 1 tablet by mouth twice daily [place] 2-Pzt-Tdo-Fish Oil (Fish Oil) 1,000 mg (120 mg-180 mg) Capsule Active 1 TAB PO Twice daily August 05, 2017 11:13am Start: 08-05-2017 take 1 tablet by anila th once daily [place] 7-Ttw-Cxm-Fish Oil (Fish Oil) 1,000 mg (120 mg-180 mg) Capsule Active 1 TAB PO Daily August 05, 2017 11:13am Start: 08-05-2017 take 1 tablet by anila th twice daily [place] 7-Mrd-Eim-Fish Oil (Fish Oil) 1,000 mg (120 mg-180 [...] tube 2 times a day only on Miykfa-Lccktamct-Earxfl Quantity: 24 Refills: 0 Ordered: 21-Jan-2016 Warren [...] possible liver damage. take 2 tablets by [facility] every six hours as [...] Active Start: 10-15-2021 take 2 tablets by [facility] once daily busPIRone HCl - 10 MG Oral Tablet TAKE 2 TABLET Daily Quantity: 0 Refills: 0 Ordered: 15-Oct-2021 DO Start : 15-Oct-2021 Active take 1 tablet by [facility] twice daily busPIRone (BUSPAR) 15 MG tablet [...] Allowed Start: 10-31-2018 take 1 capsule by [facility] every six hours as [...] 1 capsule by mouth twice da padmaja [place]-3 Fatty Acids (FISH OIL) 1000 MG CAPS [...] if Blood Glucose is between 251 - 99242 unit(s) if Blood Glucose is between 301 - 05736 unit(s) if Blood Glucose is between 351 [...] if Blood glucose is between 301 - 55856 unit(s) if Blood glucose is between 351 [...] 02-Jul-2021 Generic Substitution Allowed polyethylene glycol 3350 76664 mg powder for oral solution (7 sources) Osmotic Laxative Start: 10-15-2021 MiraLax Mix-I n Reeders 17 GM Oral Packet MIX 1 PACKET [...] Allowed Start: 07-02-2021 take 1 capsule by [facility] every twelve hours Tacrolimus [...] Coma; stupor; and brain damage (1 source) [place] coma scale finding; Translations: [[place] coma scale score 13-15, at hospital admission] [...] Problem Lis t Migration; 2012-10-14; Moved to [facility] Feb 17 2013 9:03PM; Fever of [...] right upper extremity 06-30-2021 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 (1 source) snf current use of insulin 07-02-2021 Past or Other Problems Problem Classification Problem Date Documented Da te Episodic/Chronic Other gastrointestinal disorders (1 source) Dysphagia, unspecified; Translations: [DYSPHAGIA UNSPECIFIED] Onset: 08-08-2021 Episodic 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 (1 source) SWELLING UPPER/LOW EXTREMITIES 06-27-2021 Comment on above: SWELLING UPPER/LOW E XTREMITIES Results Test Name Value Interpretation Reference Range Facility [facility] 09-14-2022 Lab Reports [id number]:127 Normal [facility] VIT D 25-OH [facility] 2022 Vitamin D, 25-Hydroxy 29.5 ng/mL Critically low 30.0-100.0 [facility] Comment on above: Result Comment: Jennifer min D deficiency has been defined by the [place] of [employer] and an Endocrine Society practice guideline as a level of serum 25-OH vitamin D less than 20 ng/mL (1,2). The Endocrine Society went on to further define vitamin D insufficiency as a level between 21 and 29 ng/mL (2). 1. IOM ([place] of Medicine). 2010. Dietary reference intakes for calcium and D. [place]: The National Academies Press. 2. Ely MF, Brad NC, Kristy ORTEGA, et al. Evaluation, treatment, and prevention of vitamin D deficiency: an Endocrine Society clinical practice guideline. JCEM. 2010; 96(7):1911-30. Performed By: #### V ITADLC #### [facility] [address] [place] [address] Dr. Ronnie Pennington CBC AUTO DIFFon 07-24-2022 BASO # 0.0 103/ul Normal 0.0-0.1 [facility] Comment on above: Performed By: #### C BC #### [facility] [address] [address] [address] Ronnie Pennington Basophils/100 WBC (Bld) 0.6 % Normal 0.2-2.0 [facility] Comment on above: Performed By: #### C BC #### [facility] [address] [address] [address] Ronnie Pennington EO # 0.1 103/ul Normal 0.0-0.7 [facility] Comment on above: Performed By: #### C BC #### [facility] [address] [address] [address] Ronnie Pennington Eosinophils/100 WBC (Bld) 2.0 % Normal 0.9-7.0 [facility] Comment on above: Performed By: #### C BC #### [facility] [address] [place] [address] Dr. Ronnie Pennington Erythrocyte distribution width (RBC) [Ratio] 13.2 % Normal 11.0-15.0 [facility] Comment on above: Performed By: #### C BC #### [facility] [address] [place] [address] Dr. Ronnie Pennington Hematocrit (Bld) [Volume fraction] 33.3 % Critically low 42.0-54.0 [facility] Comment on above: Performed By: #### C BC #### [facility] [address] [place] [address] Dr. Ronnie Pennington Hemoglobin (Bld) [Mass/Vol] 10.0 g/dL Critically low 14.0-18.0 [facility] Comment on above: Performed By: #### C BC #### [facility] [address] [place] [address] Dr. Ronnie Pennington IG # 0.04 10e3/ul Critically high 0.00-0.03 [facility] Comment on above: Performed By: #### C BC #### [facility] [address] [place] [address] Dr. Ronnie Pennington IG % 0.6 % Critically high 0.0-0.5 [facility] Comment on above: Performed By: #### C BC #### [facility] [address] [place] [address] Dr. Ronnie Pennington LYMPH # 1.2 103/ul Normal 1.2-3.8 [facility] Comment on above: Performed By: #### C BC #### [facility] [address] [place] [address] Dr. Ronnie Pennington Lymphocytes/100 WBC (Bld) 17.9 % Critically low 20.5-60.0 [facility] Comment on above: Performed By: #### C BC #### [facility] [address] [place] [address] Dr. Ronnie Pennington MANUAL DIFF REQ NO Normal [facility] Comment on above: Performed By: #### C BC #### [facility] [address] [place] [address] Dr. Ronnie Pennington MCH (RBC) [Entitic mass] 28.2 pg Normal 25.9-34.0 [facility] Comment on above: Performed By: #### C BC #### [facility] [address] [place] [address] Dr. Ronnie Pennington MCHC (RBC) [Mass/Vol] 30.0 g/dL Normal 29.9-35.2 [facility] Comment on above: Performed By: #### C BC #### [facility] [address] [place] [address] Dr. Ronnie Pennington MCV (RBC) [Entitic vol] 94.1 fL Critically high 80.0-94 .0 [facility] Comment on above: Performed By: #### C BC #### [facility] [address] [place] [address] Dr. Ronnie Pennington MONO # 0.4 103/ul Normal 0.3-0.8 [facility] Comment on above: Performed By: #### C BC #### [facility] [address] [place] [address] Dr. Ronnie Pennington Monocytes/100 WBC (Bld) 6.5 % Normal 1.7-12.0 [facility] Comment on above: Performed By: #### C BC #### [facility] [address] [address] [address] Ronnie Pennington NEUT # 4.8 103/ul Normal 1.4-6.5 [facility] Comment on above: Performed By: #### C BC #### [facility] [address] [place] [address] Dr. Ronnie Pennington Neutrophils/100 WBC (Bld) 72.4 % Normal 43.0-75.0 [facility] Comment on above: Performed By: #### C BC #### [facility] [address] [place] [address] Dr. Ronnie Pennington Platelet mean volume (Bld) [Entitic vol] 11.7 fL Normal 9.5-13.5 [facility] Comment on above: Performed By: #### C BC #### [facility] [address] [place] [address] Dr. Ronnei Pennington PLT 137 103/ul Critically low 150-450 [facility] Comment on above: Performed By: #### C BC #### [facility] [address] [place] [address] Dr. Ronnie Pennington RBC 3.54 106/ul Critically low 4.70-6.10 [facility] Comment on above: Performed By: #### C BC #### [facility] [address] [place] [address] Dr. Ronnie Pennington WBC 6.6 103/ul Normal 4.0-11.0 [facility] Comment on above: Performed By: #### C BC #### [facility] [address] [place] [address] Dr. Ronnie Pennington GLYCOHEMOGLOBIN A1Con 2022 ADA RECOMMENDATION SEE BELOW Normal [facility] Comment on above: Result Comment: ADA RECOMMENDED LIMIT 4.0 - 6.0 ADA THERAPEUTIC TARGET < 7.0 ACTION SUGGESTED > 7.0 Performed By: #### A 1C #### [facility] [address] [place] [address] Dr. Ronnie Pennington Glucose [Mass/Vol] 171 mg/dL Normal [facility] Comment on above: Performed By: #### A 1C #### [facility] [address] [address] [address] Ronnie Pennington HbA1c (Bld) [Mass fraction] 7.6 % Critically high 4.5-6.2 [facility] Comment on above: Performed By: #### A 1C #### [facility] [address] [address] [address] Ronnie Pennington MAGNESIUMon 07-24-2022 Magnesium [Mass/Vol] 2.3 mg/dL Normal 1.8-2.4 [facility] Comment on above: Performed By: #### M Mere, TSH, CMP ####[facility] [address] [address]Dr. Ronnie Pennington PROF 14(COMP METB)on 023 Albumin [Mass/Vol] 2.8 g/dL Critically low 3.4-5.0 [facility] Comment on above: Performed By: #### Joaquin Severino TSH, CMP ####[facility] [address] [address]DrFreddy Pennington Albumin/Globulin [Mass ratio] 0.7 {ratio} Normal [facility] Comment on above: Performed By: #### Joaquin Severino TSH, CMP ####[facility] [address] [address]DrFreddy Pennington ALP [Catalytic activity/Vol] 69 U/L Normal 46-116 [facility] Comment on above: Performed By: #### M Mere TSH, CMP ####[facility] [address] [address]DrFreddy Pennington ALT [Catalytic activity/Vol] 8 U/L Critically low 16-63 [facility] Comment on above: Performed By: #### Joaquin Severino TSH, CMP ####[facility] [address] [address]DrFreddy Pennington Anion gap [Moles/Vol] 9.9 mmol/L Normal [facility] Comment on above: Performed By: #### M G TSH, CMP ####[facility] [address] [address]DrFreddy Pennington AST [Catalytic activity/Vol] 9 U/L Critically low 15-37 [facility] Comment on above: Performed By: #### M Mere TSH, CMP ####[facility] [address] [place], [place] [address]Dr. Ronnie Pennington Bilirubin [Mass/Vol] 0.2 mg/dL Normal 0.2-1.0 [facility] Comment on above: Performed By: #### Joaquin Severino TSH, CMP ####[facility] [address] [place], [place] [address]Dr. Ronnie Pennington Calcium [Mass/Vol] 8.9 mg/dL Normal 8.5-10.1 [facility] Comment on above: Performed By: #### Joaquin Severino TSH, CMP ####[facility] [address] [place], [place] [address]Dr. Ronnie Pennington Chloride [Moles/Vol] 104 mmol/L Normal 98-107 [facility] Comment on above: Performed By: #### Joaquin Severino TSH, CMP ####[facility] [address] [place], [place] [address]Dr. Ronnie Pennington CO2 [Moles/Vol] 28.4 mmol/L Normal 21.0-32.0 [facility] Comment on above: Performed By: #### Joaquin Severino TSH, CMP ####[facility] [address] [place], [place] [address]Dr. Ronnie Pennington Creatinine [Mass/Vol] 2.09 mg/dL Critically high 0.70-1.30 [facility] Comment on above: Performed By: #### Joaquin Severino, TSH, CMP ####[facility] [address] [place], [place] [address]Dr. Salomelenny Pennington EGFR-AF BOLIVIAN 37 mL/min/1.73m2 Critically low >=60 [facility] Comment on above: Performed By: #### Joaquin Severino, TSH, CMP ####[facility] [address] [place], [place] [address]Dr. Ronnie Pennington EGFR-NON AF BOLIVIAN 31 mL/min/1.73m2 Critically low >=60 [facility] Comment on above: Performed By: #### M G, TSH, CMP ####[facility] [address] [address]Dr. Ronnie Pennington Globulin (S) [Mass/Vol] 3.9 g/dL Normal [facility] Comment on above: Performed By: #### M G, TSH, CMP ####[facility] [address] [address]Dr. Ronnie Pennington Glucose [Mass/Vol] 165 mg/dL Critically high 74-106 [facility] Comment on above: Performed By: #### M G, TSH, CMP ####[facility] [address] [place], [place] [address]Dr. Ronnie Pennington Potassium [Moles/Vol] 4.3 mmol/L Normal 3.5-5.1 [facility] Comment on above: Performed By: #### M G, TSH, CMP ####[facility] [address] [place], [place] [address]Dr. Ronnie Pennington Protein [Mass/Vol] 6.7 g/dL Normal 6.4-8.2 [facility] Comment on above: Performed By: #### M G, TSH, CMP ####[facility] [address] [place], [place] [address]Dr. Ronnie Pennington Sodium [Moles/Vol] 138 mmol/L Normal 136-145 [facility] Comment on above: Performed By: #### M G, TSH, CMP ####[facility] [address] [place], [place] [address]Dr. Ronnie Pennington Urea nitrogen [Mass/Vol] 33.0 mg/dL Critically high 7.0-18.0 [facility] Comment on above: Performed By: #### M G, TSH, CMP ####[facility] [address] [place], [place] [address]Dr. Ronnie Pennington Urea nitrogen/Creatinine [Mass ratio] 15.8 mg/mg Normal [facility] Comment on above: Performed By: #### M G, TSH, CMP ####[facility] [address] [place], [place] [address]Dr. Ronnie Pennington TSHon 07-24-2022 TSH 2.763 uIU/mL Normal 0.358-3.74 0 [facility] Comment on above: Performed By: #### M G, TSH, CMP ####[facility] [address] [address]Dr. Ronnie Pennington FK506 (TACROLIMUS) WHOLE BLO ODon 07-15-2022 Tacrolimus (FK506), Blood 9.4 ng/mL Normal 2.0-20.0 [facility] Comment on above: Result Comment: Trou gh (immediately following transplant) 15.0 . Trough (steady state, 2 weeks or more after transplant): 3.0 - 8.0 . Performed by LC-MS/MS technology. Performed By: #### F K506T #### [facility] [address] [place] [address] Dr. Ronnie Pennington CBC AUTO DIFFon 07-13-2022 BASO # 0.0 103/ul Normal 0.0-0.1 [facility] Comment on above: Performed By: #### C BC #### [facility] [address] [place] [address] Dr. Ronnie Pennington Basophils/100 WBC (Bld) 0.3 % Normal 0.2-2.0 [facility] Comment on above: Performed By: #### C BC #### [facility] [address] [place] [address] Dr. Ronnie Pennington EO # 0.2 103/ul Normal 0.0-0.7 [facility] Comment on above: Performed By: #### C BC #### [facility] [address] [place] [address] Dr. Ronnie Pennington Eosinophils/100 WBC (Bld) 2.5 % Normal 0.9-7.0 [facility] Comment on above: Performed By: #### C BC #### [facility] [address] [place] [address] Dr. Ronnie Pennington Erythrocyte distribution width (RBC) [Ratio] 13.1 % Normal 11.0-15.0 [facility] Comment on above: Performed By: #### C BC #### [facility] [address] [place] [address] Dr. Ronnie Pennington Hematocrit (Bld) [Volume fraction] 33.4 % Critically low 42.0-54.0 [facility] Comment on above: Performed By: #### C BC #### [facility] [address] [place] [address] Dr. Ronnie Pennington Hemoglobin (Bld) [Mass/Vol] 10.4 g/dL Critically low 14.0-18.0 [facility] Comment on above: Performed By: #### C BC #### [facility] [address] [place] [address] Dr. Ronnie Pennington IG # 0.04 10e3/ul Critically high 0.00-0.03 [facility] Comment on above: Performed By: #### C BC #### [facility] [address] [place] [address] Dr. Ronnei Pennington IG % 0.6 % Critically high 0.0-0.5 [facility] Comment on above: Performed By: #### C BC #### [facility] [address] [place] [address] Dr. Ronnie Pennington LYMPH # 1.2 103/ul Normal 1.2-3.8 [facility] Comment on above: Performed By: #### C BC #### [facility] [address] [place] [address] Dr. Ronnie Pennington Lymphocytes/100 WBC (Bld) 16.8 % Critically low 20.5-60.0 [facility] Comment on above: Performed By: #### C BC #### [facility] [address] [place] [address] Dr. Ronnie Pennington MANUAL DIFF REQ NO Normal [facility] Comment on above: Performed By: #### C BC #### [facility] [address] [place] [address] Dr. Ronnie Pennington MCH (RBC) [Entitic mass] 28.5 pg Normal 25.9-34.0 [facility] Comment on above: Performed By: #### C BC #### [facility] [address] [place] [address] Dr. Ronnie Pennington MCHC (RBC) [Mass/Vol] 31.1 g/dL Normal 29.9-35.2 [facility] Comment on above: Performed By: #### C BC #### [facility] [address] [place] [address] Dr. Ronnie Pennington MCV (RBC) [Entitic vol] 91.5 fL Normal 80.0-94.0 [facility] Comment on above: Performed By: #### C BC #### [facility] [address] [place] [address] Dr. Ronnie Pennington MONO # 0.5 103/ul Normal 0.3-0.8 [facility] Comment on above: Performed By: #### C BC #### [facility] [address] [place] [address] Dr. Ronnie Pennington Monocytes/100 WBC (Bld) 7.5 % Normal 1.7-12.0 [facility] Comment on above: Performed By: #### C BC #### [facility] [address] [place] [address] Dr. Ronnie Pennington NEUT # 5.0 103/ul Normal 1.4-6.5 [facility] Comment on above: Performed By: #### C BC #### [facility] [address] [place] [address] Dr. Ronnie Pennington Neutrophils/100 WBC (Bld) 72.3 % Normal 43.0-75.0 [facility] Comment on above: Performed By: #### C BC #### [facility] [address] [place] [address] Dr. Ronnie Pennington Platelet mean volume (Bld) [Entitic vol] 11.8 fL Normal 9.5-13.5 [facility] Comment on above: Performed By: #### C BC #### [facility] [address] [place] [address] Dr. Ronnie Pennington PLT 126 103/ul Critically low 150-450 [facility] Comment on above: Performed By: #### C BC #### [facility] [address] [place] [address] Dr. Ronnie Pennington RBC 3.65 106/ul Critically low 4.70-6.10 [facility] Comment on above: Performed By: #### C BC #### [facility] [address] [address] [address] Ronnie Pennington WBC 6.9 103/ul Normal 4.0-11.0 [facility] Comment on above: Performed By: #### C BC #### [facility] [address] [address] [address] Ronnie Pennington MAGNESIUMon 07-13-2022 Magnesium [Mass/Vol] 2.1 mg/dL Normal 1.8-2.4 [facility] Comment on above: Performed By: #### C MP, MG #### [facility] [address] [place] [address] Dr. Ronnie Pennington Office Visit (Cardiology)on 07-13-2022 Follow-up visit Patient Instructions -Please bring a list of your medications to every appointment. -We will schedule you a follow up appointment in # months. We will call you with this date. -If you have any questions, please do not hesitate to contact our office at [phone]. For after hours issues, please call [phone]. Chief Complaint OLIVERIO ESCOBEDO is being seen [...] September 2021. He continues to live in retirement. He has started Zoloft for depression. He [...] TabletTake 1 tablet twice daily MiraLax Mix-In Reeders 17 GM Oral PacketMIX 1 PACKET in [...] TABLET Bedtime (more content not included)... Normal [facility] [facility] PROF 14(COMP METB)on 023 Albumin [Mass/Vol] 2.9 g/dL Critically low 3.4-5.0 [facility] Comment on above: Performed By: #### C MP, MG #### [facility] [address] [place] [address] Dr. Ronnie Pennington Albumin/Globulin [Mass ratio] 0.7 {ratio} Normal [facility] Comment on above: Performed By: #### C MP, MG #### [facility] [address] [address] [address] Ronnie Pennington ALP [Catalytic activity/Vol] 71 U/L Normal 46-116 [facility] Comment on above: Performed By: #### C MP, MG #### [facility] [address] [place] [address] Dr. Ronnie Pennington ALT [Catalytic activity/Vol] 12 U/L Critically low 16-63 [facility] Comment on above: Performed By: #### C MP, MG #### [facility] [address] [address] [address] Ronnie Pennington Anion gap [Moles/Vol] 15.1 mmol/L Normal [facility] Comment on above: Performed By: #### C MP, MG #### [facility] [address] [place] [address] Dr. Ronnie Pennington AST [Catalytic activity/Vol] 11 U/L Critically low 15-37 [facility] Comment on above: Performed By: #### C MP, MG #### [facility] [address] [place] [address] Dr. Ronnie Pennington Bilirubin [Mass/Vol] 0.2 mg/dL Normal 0.2-1.0 [facility] Comment on above: Performed By: #### C MP, MG #### [facility] [address] [place] [address] Dr. Ronnie Pennington Calcium [Mass/Vol] 9.2 mg/dL Normal 8.5-10.1 [facility] Comment on above: Performed By: #### C MP, MG #### [facility] [address] [place] [address] Dr. Ronnie Pennington Chloride [Moles/Vol] 105 mmol/L Normal 98-107 [facility] Comment on above: Performed By: #### C MP, MG #### [facility] [address] [place] [address] Dr. Ronnie Pennington CO2 [Moles/Vol] 28.1 mmol/L Normal 21.0-32.0 [facility] Comment on above: Performed By: #### C MP, MG #### [facility] [address] [place] [address] Dr. Ronnie Pennington Creatinine [Mass/Vol] 2.14 mg/dL Critically high 0.70-1.30 [facility] Comment on above: Performed By: #### C MP, MG #### [facility] [address] [place] [address] Dr. Ronnie Pennington EGFR-AF BOLIVIAN 36 mL/min/1.73m2 Critically low >=60 [facility] Comment on above: Performed By: #### C MP, MG #### [facility] [address] [place] [address] Dr. Ronnie Pennington EGFR-NON AF BOLIVIAN 30 mL/min/1.73m2 Critically low >=60 [facility] Comment on above: Performed By: #### C MP, MG #### [facility] [address] [place] [address] Dr. Ronnie Pennington Globulin (S) [Mass/Vol] 4.0 g/dL Normal [facility] Comment on above: Performed By: #### C MP, MG #### [facility] [address] [place] [address] Dr. Ronnie Pennington Glucose [Mass/Vol] 150 mg/dL Critically high 74-106 [facility] Comment on above: Performed By: #### C MP, MG #### [facility] [address] [place] [address] Dr. Ronnie Pennington Potassium [Moles/Vol] 4.2 mmol/L Normal 3.5-5.1 [facility] Comment on above: Performed By: #### C MP, MG #### [facility] [address] [address] [address] Ronnie Pennington Protein [Mass/Vol] 6.9 g/dL Normal 6.4-8.2 [facility] Comment on above: Performed By: #### C MP, MG #### [facility] [address] [address] [address] Ronnie Pennington Sodium [Moles/Vol] 144 mmol/L Normal 136-145 [facility] Comment on above: Performed By: #### C MP, MG #### [facility] [address] [address] [address] Ronnie Pennington Urea nitrogen [Mass/Vol] 32.0 mg/dL Critically high 7.0-18.0 [facility] Comment on above: Performed By: #### C MP, MG #### [facility] [address] [address] [address] Ronnie Pennington Urea nitrogen/Creatinine [Mass ratio] 15.0 mg/mg Normal [facility] Comment on above: Performed By: #### C MP, MG #### [facility] [address] [address] [address] Ronnie Pennington Transplant SW Assessment Upd [...] Jul 15 2022 12:57PM EST (Author) Normal [employer] Consultation Noteon 06-10-19 Consultation Note [id number]:[id number] Normal [facility] TSHon 06-05-2022 TSH 3.293 uIU/mL Normal 0.358-3.74 0 [facility] Comment on above: Performed By: #### T SH #### [facility] [address] [address] [address] Ronnie Pennington Cult,Woundon 04-19-2022 Cult,Wound Specimen [...] Tetracycline <=1 SUSCEPTIBLE Trimethoprim/Sulfa <=10 SUSCEPTIBLE Susceptible [facility] Comment on above: Performed By: #### W DC #### [address] [place] [address] [employer] Ac[employer] Analyst: David Gonzalez MD PROF CHEM 8 ([facility])on Anion gap [Moles/Vol] 14.9 mmol/L Normal [facility] Comment on above: Performed By: #### B MP #### [facility] [address] [place] [address] Dr. Ronnie Pennington Calcium [Mass/Vol] 8.8 mg/dL Normal 8.5-10.1 [facility] Comment on above: Performed By: #### B MP #### [facility] [address] [place] [address] Dr. Ronnei Pennington Chloride [Moles/Vol] 104 mmol/L Normal 98-107 [facility] Comment on above: Performed By: #### B MP #### [facility] [address] [place] [address] Dr. Ronnie Pennington CO2 [Moles/Vol] 26.6 mmol/L Normal 21.0-32.0 [facility] Comment on above: Performed By: #### B MP #### [facility] [address] [address] [address] Ronnie Pennington Creatinine [Mass/Vol] 2.03 mg/dL Critically high 0.70-1.30 [facility] Comment on above: Performed By: #### B MP #### [facility] [address] [address] [address] Ronnie Pennington EGFR-AF BOLIVIAN 39 mL/min/1.73m2 Critically low >=60 [facility] Comment on above: Performed By: #### B MP #### [facility] [address] [address] [address] Ronnie Pennington EGFR-NON AF BOLIVIAN 32 mL/min/1.73m2 Critically low >=60 [facility] Comment on above: Performed By: #### B MP #### [facility] [address] [address] [address] Ronnie Pennington Glucose [Mass/Vol] 209 mg/dL Critically high 74-106 [facility] Comment on above: Performed By: #### B MP #### [facility] [address] [address] [address] Ronnie Pennington Potassium [Moles/Vol] 4.5 mmol/L Normal 3.5-5.1 [facility] Comment on above: Performed By: #### B MP #### [facility] [address] [address] [address] Ronnie Pennington Sodium [Moles/Vol] 141 mmol/L Normal 136-145 [facility] Comment on above: Performed By: #### B MP #### [facility] [address] [address] [address] Ronnie Pennington Urea nitrogen [Mass/Vol] 26.0 mg/dL Critically high 7.0-18.0 [facility] Comment on above: Performed By: #### B MP #### [facility] [address] [address] [address] Ronnie Pennington Urea nitrogen/Creatinine [Mass ratio] 12.8 mg/mg Normal [facility] Comment on above: Performed By: #### B #### [facility] [address] [place], [place] [address] Dr. Ronnie Pennington Office Visit (Cardiology)on 10-15-2021 [...] last office visit; documented BPs at the [facility] 120-130s/70-80s. Benadryl 25 mg q6h PRN for [...] Oral TabletTak (more content not included)... Normal [employer] XR MODIFIED BARIUM SWALLOWon 08-05-2021 XR MODIFIED [...] JARON NESS Date: 2021-08-05 15:10 Normal [facility] CBC AND DIFFERENTIALon 07-13 % AUTOMATED IMMATURE GRAN 0.5 % Normal 0.0 - 0.9 [facility] Comment on above: Result Comment: Christal ture Granulocyte Count (IG) includes promyelocytes, myelocytes and metamyelocytes but does not include bands. Percent differential counts (%) should be interpreted in the context of the absolute cell counts (cells/L). Performed By: #### C BCDF #### [address] [address] Basophils (Bld) [#/Vol] 0.02 10*3/uL Normal 0.00 - 0.10 [facility] Comment on above: Performed By: #### C BCDF #### [address] [address] Basophils/100 WBC (Bld) 0.3 % Normal 0.0 - 2.0 [facility] [place] [place] Comment on above: Performed By: #### C BCDF #### [address] [address] Eosinophils (Bld) [#/Vol] 0.07 10*3/uL Normal 0.00 - 0.40 [facility] Comment on above: Performed By: #### C BCDF #### [address] [address] Eosinophils/100 WBC (Bld) 0.9 % Normal 0.0 - 6.0 [facility] Comment on above: Performed By: #### C BCDF #### [address] [address] Erythrocyte distribution width (RBC) [Ratio] 14.4 % Normal 11.5 - 14.5 [facility] Comment on above: Performed By: #### C BCDF #### [address] [place] [address] Hematocrit (Bld) [Volume fraction] 35.5 % Low 41.0 - 52.0 [facility] Comment on above: Performed By: #### C BCDF #### [address] [place] [address] Hemoglobin (Bld) [Mass/Vol] 10.8 g/dL Low 13.5 - 17.5 [facility] Comment on above: Performed By: #### C BCDF #### [address] [place] [address] Lymphocytes (Bld) [#/Vol] 0.42 10*3/uL Low 0.80 - 3.00 [facility] Comment on above: Performed By: #### C BCDF #### [address] [place] [address] Lymphocytes/100 WBC (Bld) 5.6 % Normal 13.0 - 44.0 [facility] Comment on above: Performed By: #### C BCDF #### [address] [place] [address] MCHC (RBC) [Mass/Vol] 30.4 g/dL Low 32.0 - 36.0 [facility] Comment on above: Performed By: #### C BCDF #### [address] [address] MCV (RBC) [Entitic vol] 89 fL Normal 80 - 100 [facility] [place] [place] Comment on above: Performed By: #### C BCDF #### [address] [address] Monocytes (Bld) [#/Vol] 0.07 10*3/uL Normal 0.05 - 0.80 [facility] Comment on above: Performed By: #### C BCDF #### [address] [address] Monocytes/100 WBC (Bld) 0.9 % Normal 2.0 - 10.0 [facility] [place] [place] Comment on above: Performed By: #### C BCDF #### [address] [address] Neutrophils (Bld) [#/Vol] 6.82 10*3/uL High 1.60 - 5.50 [facility] Comment on above: Performed By: #### C BCDF #### [address] [address] Neutrophils/100 WBC (Bld) 91.8 % Normal 40.0 - 80.0 [facility] Comment on above: Performed By: #### C BCDF #### [address] [address] NUCLEATED RBC 0.0 /100 WBC Normal 0.0 - 0.0 [facility] Comment on above: Performed By: #### C BCDF #### [address] [address] Platelets (Bld) [#/Vol] 161 10*3/uL Normal 150 - 450 [facility] Comment on above: Performed By: #### C BCDF #### [address] [address] RBC 3.98 x10E12/L Low 4.50 - 5.90 [facility] Comment on above: Performed By: #### C BCDF #### [address] [address] WBC (Bld) [#/Vol] 7.4 10*3/uL Normal 4.4 - 11.3 [facility] Comment on above: Performed By: #### C BCDF #### [address] [address] Complete Blood Count + Diffe rentialon 07-13-2021 Basophils/100 WBC (Bld) 0.3 % 0.0 - 2.0 [facility] [employer] [address] [place] Work Phone: Erythrocyte distribution width (RBC) [Ratio] 14.4 % See Below [facility] [employer] [address] [place] Work Phone: Comment on above: Reference Range: 11. 5 - 14.5 Hematocrit (Bld) [Volume fraction] 35.5 % below low threshold See Below [facility] [address] [place] Work Phone: Comment on [...] 161 10*3/uL 150 - 450 [facility] [address] [place] Work Phone: RBC (Bld) [#/Vol] 3.98 {x10E12/L} below low threshold See Below [facility] [address] [place] Work Phone: Comment on above: Reference Range: 4.5 0 - 5.90 WBC (Bld) [#/Vol] 7.4 10*3/uL 4.4 - 11.3 [facility] [employer] [address] [place] Work Phone: Complete Blood Count + Differential 0.02 {x10E9/L} See Below [facility] [address] [place] Work Phone: Comment on above: Reference Range: 0.0 0 - 0.10 Complete Blood Count + Differential 0.07 {x10E9/L} See Below [facility] [address] [place] Work Phone: Comment on above: Reference Range: 0.0 0 - 0.40 Reference Range: 0.0 5 - 0.80 Complete Blood Count + Differential 0.42 {x10E9/L} below low threshold See Below [facility] [address] [place] Work Phone: Comment on above: Reference Range: 0.8 0 - 3.00 Complete Blood Count + Differential 6.82 {x10E9/L} above high threshold See Below [facility] [place] [employer] [address] [place] Work Phone: Comment on above: Reference Range: 1.6 0 - 5.50 Complete Blood Count + Differential 0.9 % 0.0 - 6.0 [facility] [employer] [address] [place] Work Phone: Complete Blood Count + Differential 0.5 % 0.0 - 0.9 [facility] [address] [place] Work Phone: Comment on above: Immature Granulocyte Count (IG) includes promyelocytes, myelocytes and metamyelocytes but does not include bands. Percent differential counts (%) should be interpreted in the context of the absolute cell counts (cells/L). Complete Blood Count + Differential 0.0 {/100_WBC} 0.0 - 0.0 [facility] [address] [place] Work Phone: Coronavirus 2019 RNA by PCR, Symptomaticon 07-03-2021 Date and time of symptom onset [id number] [facility] [address] [place] Work Phone: Coronavirus 2019 RNA by PCR, Symptomatic Not detected Normal See Below [facility] [address] [place] Work Phone: Comment on above: SOURCE: Nasal, Nasop haryngealReference Range: Not Detected.This test has received FDA Emergency Use Authorization (EUA) and has been verified by [facility] ([facility]). This test is only authorized for the duration of time that circumstances exist to justify the authorization of the emergency use of in vitro diagnostic tests for the detection of SARS-CoV-2 virus and/or diagnosis of COVID-19 infection under section 564(b)(1) of the Act, 21 U.S.C. 360bbb-3(b)(1), unless the authorization is terminated or revoked sooner. [facility] is certified under CLIA-88 as qualified to perform high complexity testing. Testing is performed in the [facility] located at [address] [place] [address].SARS-CoV-2/Flu/RSV Multiplex Test: Fact sheet for providers: https://www.fda.gov/media/620284/downloadFact sheet for patients: https://www.fda.gov/media/115853/download Laboratory - Chemistry and C hemistry - challengeon 07-03-2021 Glucose [Mass/Vol] 330 mg/dL above high threshold 74 - 99 [facility] [address] [place] Work Phone: Glucose [Mass/Vol] [...] mmol/L 21 - 32 [facility] [address] [place] Work Phone: Creatinine [Mass/Vol] 1.80 mg/dL above high threshold See Below [facility] [address] [place] Work Phone: Comment on above: Reference Range: 0.5 0 - 1.30 Glucose [Mass/Vol] 246 mg/dL above high threshold 74 - 99 [facility] [address] [place] Work Phone: Potassium [Moles/Vol] 3.9 mmol/L 3.5 - 5.3 [facility] [address] [place] Work Phone: [phone] Sodium [Moles/Vol] 138 mmol/L 136 - 145 [facility] [address] [place] Work Phone: Urea nitrogen [...] below low threshold See Below [facility] [address] [place] Work Phone: Comment on above: Reference Range: 41. 0 - 52.0 Hemoglobin (Bld) [Mass/Vol] 10.8 g/dL below low threshold See Below [facility] [address] [place] Work Phone: Comment on above: Reference Range: 13. 5 - 17.5 MCHC (RBC) [Mass/Vol] 30.8 g/dL below low threshold See Below [facility] [address] [place] Work Phone: Comment on above: Reference Range: 32. 0 - 36.0 MCV (RBC) [Entitic vol] 89 fL 80 - 100 [facility] [address] [place] Work Phone: Platelets (Bld) [#/Vol] 171 10*3/uL 150 - 450 [facility] [address] [place] Work Phone: RBC (Bld) [#/Vol] 3.94 {x10E12/L} below low threshold See Below [facility] [address] [place] Work Phone: Comment on above: Reference Range: 4.5 0 - 5.90 WBC (Bld) [#/Vol] 6.0 10*3/uL 4.4 - 11.3 [facility] [address] [place] Work Phone: No Panel Informationon 07-03 38 {mL/min/1.73m2} Abnormal >90 [facility] [address] [place] Work Phone: Comment on above: CALCULATIONS OF ERNST MATED GFR ARE PERFORMED USING THE 2020 CKD-EPI STUDY REFIT EQUATION WITHOUT THE RACE VARIABLE FOR THE IDMS-TRACEABLE CREATININE METHODS.https://jasn.asnjournals.org/content/early// ASN.5204015225 0.0 {/100_WBC} 0.0-0.0 [facility] [address] [place] Work Phone: Tacrolimuson 07-03-2021 Tacrolimus (Bld) [Mass/Vol] 5.5 ng/mL 2.0 - 15.0 [facility] [address] [place] Work Phone: Comment on above: NOTE: Result was obt ained using a chemiluminescent microparticle immunoassay (CMIA) on the Fisher [employer] i system.Optimal therapeutic ranges for immuno-suppressant drugs [...] high threshold 74 - 99 [facility] [address] [place] Work Phone: [phone] Glucose [Mass/Vol] 286 mg/dL above high threshold 74 - 99 [facility] [address] [place] Work Phone: [phone] Glucose [Mass/Vol] 269 mg/dL above high threshold 74 - 99 [facility] [address] [place] Work Phone: [phone] Anion gap [Moles/Vol] 15 mmol/L 10 - 20 [facility] [address] [place] Work Phone: [phone] Calcium [Mass/Vol] 9.1 mg/dL 8.6 - 10.6 [facility] [address] [place] Work Phone: [phone] Chloride [Moles/Vol] 102 mmol/L 98 - 107 [facility] [address] [place] Work Phone: [phone] CO2 [Moles/Vol] 27 mmol/L 21 - 32 [facility] [address] [place] Work Phone: [phone] Creatinine [Mass/Vol] 1.97 mg/dL above high threshold See Below [facility] [address] [place] Work Phone: [phone] Comment on above: Reference Range: 0.5 0 - 1.30 Glucose [Mass/Vol] 197 mg/dL above high threshold 74 - 99 [facility] [address] [place] Work Phone: Potassium [Moles/Vol] 4.1 mmol/L 3.5 - 5.3 [facility] [address] [place] Work Phone: Sodium [Moles/Vol] 140 mmol/L 136 - 145 [facility] [address] [place] Work Phone: Urea nitrogen [Mass/Vol] 41 mg/dL above high threshold 6 - 23 [facility] [address] [place] Work Phone: Glucose [Mass/Vol] 201 mg/dL above high threshold 74 - 99 [facility] [address] [place] Work Phone: Laboratory - Hematology and Cell countson 07-02-2021 Erythrocyte distribution width (RBC) [Ratio] 14.1 % See Below [facility] [address] [place] Work Phone: Comment on above: Reference Range: 11. 5 - 14.5 Hematocrit (Bld) [Volume fraction] 33.6 % below low threshold See Below [facility] [address] [place] Work Phone: Comment on [...] 160 10*3/uL 150 - 450 [facility] [address] [place] Work Phone: RBC (Bld) [...] RACE VARIABLE FOR THE IDMS-TRACEABLE CREATININE METHODS.https://jasn.asnjournals.org/content/// ASN.6866521466 0.0 {/100_WBC} 0.0-0.0 [facility] [address] [place] Work Phone: Tacrolimuson 07-02-2021 Tacrolimus (Bld) [Mass/Vol] 7.6 ng/mL 2.0 - 15.0 [facility] [address] [place] Work Phone: Comment on above: NOTE: Result was obt ained using a chemiluminescent microparticle immunoassay (CMIA) on the Fisher Hoop Net i system.Optimal therapeutic ranges for immuno-suppressant drugs depend upon an individualpatient's current clinical state, type oforgan transplant, time post-transplant,co-administration of other immunosuppressants,and other clinical factors. The results ofthis test should be correlated with additionalclinical and laboratory data before changesin treatment regimens are made. Hemoglobin A1Con 07-01-2021 Glucose [Mass/Vol] 194 mg/dL [facility] [address] [place] Work Phone: HbA1c (Bld) [...] 13-18 <7.5 7-12 <8.0 0- 6 7.5-8.5 [place] [employer]. Diabetes Care 33(S1), Mar 2009. Laboratory - Chemistry and C hemistry - challengeon 07-01-2021 Glucose [Mass/Vol] 188 mg/dL above high threshold 74 - 99 [facility] [address] [place] Work Phone: Glucose [Mass/Vol] [...] mmol/L 21 - 32 [facility] [address] [place] Work Phone: Creatinine [Mass/Vol] 1.99 mg/dL above high threshold See Below [facility] [address] [place] Work Phone: Comment on above: Reference Range: 0.5 0 - 1.30 Glucose [Mass/Vol] 227 mg/dL above high threshold 74 - 99 [facility] [address] [place] Work Phone: Glucose [Mass/Vol] 243 mg/dL above high threshold 74 - 99 [facility] [address] [place] Work Phone: Potassium [Moles/Vol] 4.0 mmol/L 3.5 - 5.3 [facility] [address] [place] Work Phone: Sodium [Moles/Vol] 141 mmol/L 136 - 145 [facility] [address] [place] Work Phone: Urea nitrogen [Mass/Vol] 38 mg/dL above high threshold 6 - 23 [facility] [address] [place] Work Phone: Laboratory - [...] below low threshold See Below [facility] [address] [place] Work Phone: Comment on above: Reference Range: 32. 0 - 36.0 MCV (RBC) [Entitic vol] 90 fL 80 - 100 [facility] [address] [place] Work Phone: Platelets (Bld) [#/Vol] 157 10*3/uL 150 - 450 [facility] [address] [place] Work Phone: RBC (Bld) [#/Vol] 3.83 {x10E12/L} below low threshold See Below [facility] [address] [place] Work Phone: Comment on above: Reference Range: 4.5 0 - 5.90 WBC (Bld) [#/Vol] 6.8 10*3/uL 4.4 - 11.3 [facility] [address] [place] Work Phone: No Panel Informationon 07-01 34 {mL/min/1.73m2} Abnormal >90 [facility] [address] [place] Work Phone: Comment on above: CALCULATIONS OF ERNST MATED GFR ARE PERFORMED USING THE 2020 CKD-EPI STUDY REFIT EQUATION WITHOUT THE RACE VARIABLE FOR THE IDMS-TRACEABLE CREATININE METHODS.https://jasn.asnjournals.org/content// ASN.2699064089 0.0 {/100_WBC} 0.0-0.0 [facility] [address] [place] Work Phone: Tacrolimuson 07-01-2021 Tacrolimus (Bld) [Mass/Vol] 9.3 ng/mL 2.0 - 15.0 [facility] [address] [place] Work Phone: Comment on above: NOTE: Result was obt ained using a chemiluminescent microparticle immunoassay (CMIA) on the Fisher [employer] Net i system.Optimal therapeutic ranges for immuno-suppressant drugs [...] high threshold 74 - 99 [facility] [address] [place] Work Phone: [phone] Glucose [Mass/Vol] 236 mg/dL above high threshold 74 - 99 [facility] [address] [place] Work Phone: [phone] Anion gap [Moles/Vol] 17 mmol/L 10 - 20 [facility] [address] [place] Work Phone: [phone] Calcium [Mass/Vol] 8.6 mg/dL 8.6 - 10.6 [facility] [address] [place] Work Phone: [phone] Chloride [Moles/Vol] 100 mmol/L 98 - 107 [facility] [address] [place] Work Phone: [phone] CO2 [Moles/Vol] 28 mmol/L 21 - 32 [facility] [address] [place] Work Phone: [phone] Creatinine [Mass/Vol] 2.26 mg/dL above high threshold See Below [facility] [address] [place] Work Phone: [phone] Comment on above: Reference Range: 0.5 0 - 1.30 Glucose [Mass/Vol] 205 mg/dL above high threshold 74 - 99 [facility] [address] [place] Work Phone: [phone] Potassium [Moles/Vol] 3.8 mmol/L 3.5 - 5.3 [facility] [address] [place] Work Phone: Sodium [Moles/Vol] 141 mmol/L 136 - 145 [facility] [address] [place] Work Phone: Urea nitrogen [Mass/Vol] 39 mg/dL above high threshold 6 - 23 [facility] [address] [place] Work Phone: Laboratory - Hematology and Cell countson 06-30-2021 Erythrocyte distribution width (RBC) [Ratio] 14.3 % See Below [facility] [address] [place] Work Phone: Comment on above: Reference Range: 11. 5 - 14.5 Hematocrit (Bld) [Volume fraction] 33.5 % below low threshold See Below [facility] [address] [place] Work Phone: Comment on above: Reference Range: 41. 0 - 52.0 Hemoglobin (Bld) [Mass/Vol] 10.5 g/dL below low threshold See Below [facility] [address] [place] Work Phone: Comment on above: Reference Range: 13. 5 - 17.5 MCHC (RBC) [Mass/Vol] 31.3 g/dL below low threshold See Below [facility] [address] [place] Work Phone: Comment on above: Reference Range: 32. 0 - 36.0 MCV (RBC) [Entitic vol] 91 fL 80 - 100 [facility] [address] [place] Work Phone: Platelets (Bld) [#/Vol] 141 10*3/uL below lo w threshold 150 - 450 [facility] [address] [place] Work Phone: RBC (Bld) [#/Vol] 3.70 {x10E12/L} below low threshold See Below [facility] [address] [place] Work Phone: Comment on above: Reference Range: 4.5 0 - 5.90 WBC (Bld) [#/Vol] 8.2 10*3/uL 4.4 - 11.3 [facility] [address] [place] Work Phone: No Panel Informationon 06-30 29 {mL/min/1.73m2} Abnormal >90 [facility] [address] [place] Work Phone: Comment on above: CALCULATIONS OF ERNST MATED GFR ARE PERFORMED USING THE 2020 CKD-EPI STUDY REFIT EQUATION WITHOUT THE RACE VARIABLE FOR THE IDMS-TRACEABLE CREATININE METHODS.https://jasn.asnjournals.org/content/early/ ASN.0429781447 0.0 {/100_WBC} 0.0-0.0 [facility] [address] [place] Work Phone: Tacrolimuson 06-30-2021 Tacrolimus (Bld) [Mass/Vol] 7.7 ng/mL 2.0 - 15.0 [facility] [address] [place] Work Phone: Comment on above: NOTE: Result was obt ained using a chemiluminescent microparticle immunoassay (CMIA) on the [employer] i system.Optimal therapeutic ranges for immuno-suppressant drugs [...] high threshold 74 - 99 [facility] [address] [place] Work Phone: [phone] Glucose [Mass/Vol] 283 mg/dL above high threshold 74 - 99 [facility] [address] [place] Work Phone: [phone] Anion gap [Moles/Vol] 16 mmol/L 10 - 20 [facility] [address] [place] Work Phone: [phone] Calcium [Mass/Vol] 8.7 mg/dL 8.6 - 10.6 [facility] [address] [place] Work Phone: [phone] Chloride [Moles/Vol] 104 mmol/L 98 - 107 [facility] [address] [place] Work Phone: [phone] CO2 [Moles/Vol] 28 mmol/L 21 - 32 [facility] [address] [place] Work Phone: [phone] Creatinine [Mass/Vol] 1.97 mg/dL above high threshold See Below [facility] [address] [place] Work Phone: [phone] Comment on above: Reference Range: 0.5 0 - 1.30 Glucose [Mass/Vol] 185 mg/dL above high threshold 74 - 99 [facility] [address] [place] Work Phone: [phone] Potassium [Moles/Vol] 3.9 mmol/L 3.5 - 5.3 [facility] [address] [place] Work Phone: [phone] Sodium [Moles/Vol] 144 mmol/L 136 - 145 [facility] [address] [place] Work Phone: [phone] Urea nitrogen [Mass/Vol] 35 mg/dL above high threshold 6 - 23 [facility] [address] [place] Work Phone: [phone] Glucose [Mass/Vol] 186 mg/dL above high threshold 74 - 99 [facility] [address] [place] Work Phone: Laboratory - Hematology and Cell countson 06-29-2021 Erythrocyte distribution width (RBC) [Ratio] 14.3 % See Below [facility] [employer] [address] [place] Work Phone: Comment on above: Reference Range: 11. 5 - 14.5 Hematocrit (Bld) [Volume fraction] 35.8 % below low threshold See Below [facility] [employer] [address] [place] Work Phone: Comment on above: Reference Range: 41. 0 - 52.0 Hemoglobin (Bld) [Mass/Vol] 11.0 g/dL below low threshold See Below [facility] [employer] [address] [place] Work Phone: Comment on above: Reference Range: 13. 5 - 17.5 MCHC (RBC) [Mass/Vol] 30.7 g/dL below low threshold See Below [facility] [employer] [address] [place] Work Phone: Comment on above: Reference Range: 32. 0 - 36.0 MCV (RBC) [Entitic vol] 90 fL 80 - 100 [facility] [employer] [address] [place] Work Phone: Platelets (Bld) [#/Vol] 142 10*3/uL below lo w threshold 150 - 450 [facility] [employer] [address] [place] Work Phone: RBC (Bld) [#/Vol] 3.96 {x10E12/L} below low threshold See Below [facility] [employer] [address] [place] Work Phone: Comment on above: Reference Range: 4.5 0 - 5.90 WBC (Bld) [#/Vol] 7.0 10*3/uL 4.4 - 11.3 [facility] [employer] [address] [place] Work Phone: Magnesium, Serumon Magnesium [Mass/Vol] 1.80 mg/dL See Below [facility] [address] [place] Work Phone: Comment on above: Reference Range: 1.6 0 - 2.40 No Panel Informationon 06-29 34 {mL/min/1.73m2} Abnormal >90 [facility] [address] [place] Work Phone: Comment on above: CALCULATIONS OF ERNST MATED GFR ARE PERFORMED USING THE 2020 CKD-EPI STUDY REFIT EQUATION WITHOUT THE RACE VARIABLE FOR THE IDMS-TRACEABLE CREATININE METHODS.https://jasn.asnjournals.org/content/early// ASN.8081099001 0.0 {/100_WBC} 0.0-0.0 [facility] [address] [place] Work Phone: Tacrolimuson 06-29-2021 Tacrolimus (Bld) [Mass/Vol] 8.4 ng/mL 2.0 - 15.0 [facility] [address] [place] Work Phone: Comment on above: NOTE: Result was obt ained using a chemiluminescent microparticle immunoassay (CMIA) on the [employer] i system.Optimal therapeutic ranges for immuno-suppressant drugs [...] high threshold 74 - 99 [facility] [address] [place] Work Phone: Glucose [Mass/Vol] 215 mg/dL above high threshold 74 - 99 [facility] [address] [place] Work Phone: Anion gap [Moles/Vol] 14 mmol/L 10 - 20 [facility] [address] [place] Work Phone: [phone] Calcium [Mass/Vol] 8.5 mg/dL below low threshold 8.6 - 10.6 [facility] [address] [place] Work Phone: [phone] Chloride [Moles/Vol] 105 mmol/L 98 - 107 [facility] [address] [place] Work Phone: [phone] CO2 [Moles/Vol] 29 mmol/L 21 - 32 [facility] [address] [place] Work Phone: [phone] Creatinine [Mass/Vol] 1.96 mg/dL above high threshold See Below [facility] [address] [place] Work Phone: [phone] Comment on above: Reference Range: 0.5 0 - 1.30 Glucose [Mass/Vol] 159 mg/dL above high threshold 74 - 99 [facility] [address] [place] Work Phone: [phone] Potassium [Moles/Vol] 3.8 mmol/L 3.5 - 5.3 [facility] [address] [place] Work Phone: [phone] Sodium [Moles/Vol] 144 mmol/L 136 - 145 [facility] [employer] [address] [place] Work Phone: [phone] Urea [...] [Ratio] 14.3 % See Below [facility] [address] [place] Work Phone: [phone] Comment on above: Reference Range: 11. 5 - 14.5 Hematocrit (Bld) [Volume fraction] 33.8 % below low threshold See Below [facility] [employer] [address] [place] Work Phone: Comment on above: Reference Range: 41. 0 - 52.0 Hemoglobin (Bld) [Mass/Vol] 10.4 g/dL below low threshold See Below [facility] [employer] [address] [place] Work Phone: Comment on above: Reference Range: 13. 5 - 17.5 MCHC (RBC) [Mass/Vol] 30.8 g/dL below low threshold See Below [facility] [employer] [address] [place] Work Phone: Comment on above: Reference Range: 32. 0 - 36.0 MCV (RBC) [Entitic vol] 90 fL 80 - 100 [facility] [employer] [address] [place] Work Phone: Platelets (Bld) [#/Vol] 133 10*3/uL below lo w threshold 150 - 450 [facility] [employer] [address] [place] Work Phone: RBC (Bld) [#/Vol] 3.75 {x10E12/L} below low threshold See Below [facility] [employer] [address] [place] Work Phone: Comment on above: Reference Range: 4.5 0 - 5.90 WBC (Bld) [#/Vol] 5.7 10*3/uL 4.4 - 11.3 [facility] [employer] [address] [place] Work Phone: Lactate, Levelon 06-28-2021 Lactate [Moles/Vol] 0.6 mmol/L 0.4 - 2.0 [facility] [address] [place] Work Phone: Comment on above: [...] RACE VARIABLE FOR THE IDMS-TRACEABLE CREATININE METHODS.https://jasn.asnjournals.org/content/early/ ASN.5215172247 0.0 {/100_WBC} 0.0-0.0 [facility] [address] [place] Work Phone: Tacrolimuson 06-28-2021 Tacrolimus (Bld) [Mass/Vol] 10.4 ng/mL 2.0 - 15.0 [facility] [address] [place] Work Phone: Comment on above: NOTE: Result was obt ained using a chemiluminescent microparticle immunoassay (CMIA) on the [employer] i system.Optimal therapeutic ranges for immuno-suppressant drugs depend upon an individualpatient's current clinical state, type oforgan transplant, time post-transplant,co-administration of other immunosuppressants,and other clinical factors. The results ofthis test should be correlated with additionalclinical and laboratory data before changesin treatment regimens are made. Complete Blood Count + Diffe rentialon 06-27-2021 Basophils/100 WBC (Bld) 0.5 % 0.0 - 2.0 [facility] [address] [place] Work Phone: Erythrocyte distribution width (RBC) [Ratio] 14.3 % See Below [facility] [address] [place] Work Phone: Comment on above: Reference Range: 11. 5 - 14.5 Hematocrit (Bld) [Volume fraction] 33.6 % below low threshold See Below [facility] [address] [place] Work Phone: Comment on above: Reference Range: 41. 0 - 52.0 Hemoglobin (Bld) [Mass/Vol] 10.3 g/dL below low threshold See Below [facility] [address] [place] Work Phone: Comment on above: Reference Range: 13. 5 - 17.5 Lymphocytes/100 WBC (Bld) 13.1 % See Below [facility] [address] [place] Work Phone: [phone] Comment on above: Reference Range: 13. 0 - 44.0 MCHC (RBC) [Mass/Vol] 30.7 g/dL below low threshold See Below [facility] [address] [place] Work Phone: [phone] Comment on above: Reference Range: 32. 0 - 36.0 MCV (RBC) [Entitic vol] 92 fL 80 - 100 [facility] [address] [place] Work Phone: [phone] Monocytes/100 WBC (Bld) 9.0 % 2.0 - 10.0 [facility] [address] [place] Work Phone: [phone] Neutrophils/100 WBC (Bld) 72.5 % See Below [facility] [address] [place] Work Phone: [phone] Comment on above: Reference Range: 40. 0 - 80.0 Platelets (Bld) [#/Vol] 137 10*3/uL below lo w threshold 150 - 450 [facility] [address] [place] Work Phone: [phone] RBC (Bld) [#/Vol] 3.67 {x10E12/L} below low threshold See Below [facility] [address] [place] Work Phone: [phone] Comment on above: Reference Range: 4.5 0 - 5.90 WBC (Bld) [#/Vol] 6.4 10*3/uL 4.4 - 11.3 [facility] [address] [place] Work Phone: [phone] Complete Blood Count + Differential 0.03 {x10E9/L} See Below [facility] [address] [place] Work Phone: Comment on [...] Wu on 06-27-2021 Glucose [Mass/Vol] 263 mg/dL [facility] Comment on above: Random Glucose Refer [...] 57 U/L 33 - 136 [facility] [address] [place] Work Phone: ALT With P-5'-P [Catalytic activity/Vol] 4 U/L below low threshold 10 - 52 [facility] [address] [place] Work Phone: Comment on above: Patients treated wit h Sulfasalazine may generate falsely decreased results for ALT. Anion gap [Moles/Vol] 18 mmol/L 10 - 20 [facility] [address] [place] Work Phone: AST With P-5'-P [Catalytic activity/Vol] 10 U/L 9 - 39 [facility] [address] [place] Work Phone: Bilirubin [Mass/Vol] 0.3 mg/dL 0.0 - 1.2 [facility] [address] [place] Work Phone: Calcium [Mass/Vol] 8.3 mg/dL below low threshold 8.6 - 10.6 [facility] [address] [place] Work Phone: Chloride [Moles/Vol] [...] high threshold 74 - 99 [facility] [address] [place] Work Phone: Potassium [Moles/Vol] 3.7 mmol/L 3.5 - 5.3 [facility] [address] [place] Work Phone: Protein [Mass/Vol] 5.7 g/dL below low threshold 6.4 - 8.2 [facility] [address] [place] Work Phone: Sodium [Moles/Vol] 142 mmol/L 136 - 145 [facility] [address] [place] Work Phone: Urea nitrogen [Mass/Vol] 37 mg/dL above high threshold 6 - 23 [facility] [address] [place] Work Phone: Glucose [Mass/Vol] 178 mg/dL above high threshold 74 - 99 [facility] [address] [place] Work Phone: Glucose [Mass/Vol] [...] RACE VARIABLE FOR THE IDMS-TRACEABLE CREATININE METHODS.https://jasn.asnjournals.org/content// ASN.2231338225 No Panel InformationOrdered By: Yoshi Wu on 06-27-2021 Bedside Glucose Comment Glu2: cleaned [facility] Automated erythrocytes count in urine sediment (number/area)Ordered By: Audra Quinteros on 06-26-2021 RBC Auto (Urine sed) [#/Area] 0-1 [HPF] [facility] Automated leukocytes count i n urine sediment (number/area)Ordered By: Audra Quinteros on 06-26-2021 WBC Auto (Urine sed) [#/Area] 0-1 [HPF] [facility] Bilirubin Test strip Ql (U)O rdered By: Audra Quinteros on 06-26-2021 Bilirubin Ql (U) Negative Negative [facility] COVID-19 Positive/NegativeOr dered By: Omid Myrick on 06-26-2021 SARS-CoV-2 (COVID-19) N gene JOYCE+probe Ql (Resp) Negative Negative [facility] Comment on above: Testing for SARS-CoV -2 by RT-PCRThis test was developed and its performance characteristics determined by [employer] and validated at the [facility]. This test has not been [...] Quinteros on 06-26-2021 Color (U) Yellow Yellow [facility] Creatinine [Mass/volume] in UrineOrdered By: Audra Quinteros on 06-26-2021 Creatinine (U) [Mass/Vol] 71.5 mg/dL [facility] Comment on above: No reference range e stablished Creatinine and Glomerular fi ltration rate.predicted panel (S/P/Bld)Ordered By: Audra Quinteros on 06-26-2021 Creatinine [Mass/Vol] 1.99 mg/dL 0.64-1.27 [facility] Estimated glomerular filtrat ion rate (GFR) non- AmericanOrdered By: Audra Quinteros on 06-26-2021 GFR/1.73 sq M.predicted among non-blacks MDRD (S/P/Bld) [Vol rate/Area] 33 mL/Min [facility] Ketones Auto test strip (U) [Mass/Vol]Ordered By: Audra Quinteros on 06-26-2021 Ketones (U) [Mass/Vol] Negative Negative [facility] Laboratory - Microbiology an d Antimicrobial susceptibilityOrdered By: Omid Myrick on 06-26-2021 SARS-CoV-2 (COVID-19) RNA JOYCE+probe Ql (Unsp spec) N/A [facility] Laboratory - UrinalysisOrder ed By: Audra Quinteros on 06-26-2021 Hyaline casts LM Ql (Urine sed) 0-8 [LPF] [facility] Nitrite Test strip Ql (U)Ord ered By: Audra Quinteros on 06-26-2021 Nitrite Ql (U) Negative Negative [facility] No Panel InformationOrdered By: Audra Quinteros on 06-26-2021 Estimated GFR () 40 mL/Min [facility] Comment on above: GFR estimated refere nce range: According to KDOQI guidelines, <60 ml/min/1.73m2 is sufficient to diagnose a patient with chronic kidney disease. Pharmacy Creatinine Clearance (Chem 39.80 [facility] Protein Auto test strip (U) [Mass/Vol]Ordered By: Audra Quinteros on 06-26-2021 Protein (U) [Mass/Vol] 300 mg/dL Negative [facility] Serum or plasma calcium abhijit urement (mass/volume)Ordered By: Audra Quinteros on 06-26-2021 Calcium [Mass/Vol] 8.9 mg/dL 8.2-10.[address] [facility] Serum or plasma chloride marylin surement (moles/volume)Ordered By: Audra Quinteros on 06-26-2021 Chloride [Moles/Vol] 105 mmol/L 95-114 [facility] Serum or plasma glucose abhijit urement (mass/volume)Ordered By: Audra Quinteros on 06-26-2021 Glucose [Mass/Vol] 194 mg/dL 70-[address] [facility] Comment on above: ADA recommended refe rence rangeRandom Glucose Reference Range is dependent on time and content of last meal. Glucose of more than 200 mg/dL in a nonstressed, ambulatory subject supports the diagnosis of Diabetes Mellitus. Serum or plasma potassium me asurement (moles/volume)Ordered By: Omid Myrick on 06-26-2021 Potassium [Moles/Vol] 4.0 mmol/L 3.5-5.1 [facility] Serum or plasma sodium measu rement (moles/volume)Ordered By: Audra Quinteros on 06-26-2021 Sodium [Moles/Vol] 140 mmol/L 136-[address] [facility] Serum or plasma total carbon dioxide measurement (moles/volume)Ordered By: Audra Quinteros on 06-26-2021 CO2 [Moles/Vol] 23.8 mmol/L 22.0-30.0 [facility] Serum or plasma urea nitroge n measurement (mass/volume)Ordered By: Audra Quinteros on 06-26-2021 Urea nitrogen [Mass/Vol] 39 mg/dL 9-23 [facility] Specific gravity Auto test s trip (U) [Rel density]Ordered By: Audra Quinteros on 06-26-2021 Specific gravity (U) [Rel density] 1.015 1.001-1.03 0 [facility] Squamous epithelial cells de tection in urine sediment by light microscopyOrdered By: Audra Quinteros on 06-26-2021 Epithelial cells.squamous LM Ql (Urine sed) None seen [HPF] [facility] Urine bacteria detection by automated methodOrdered By: Audra Quinteros on 06-26-2021 Bacteria Auto Ql (U) None seen None Seen [facility] Urine clarity by refractomet ry automatedOrdered By: Audra Quinteros on 06-26-2021 Clarity Refractometry automated (U) Clear Clear [facility] Urine glucose measurement by automated test strip (mass/volume)Ordered By: Audra Quinteros on 06-26-2021 Glucose Auto test strip (U) [Mass/Vol] Normal mg/dL Normal [facility] Urine hemoglobin detection b y automated test stripOrdered By: Audra Quinteros on 06-26-2021 Hemoglobin Auto test strip Ql (U) Negative Negative [facility] Urine leukocyte esterase det ection by automated test stripOrdered By: Audra Quinteros on 06-26-2021 Leukocyte esterase Auto test strip Ql (U) Negative Negative [facility] Urine sodium measurement (mo les/volume)Ordered By: Audra Quinteros on 06-26-2021 Sodium (U) [Moles/Vol] 94 mmol/L [facility] Comment on above: No reference range e stablished Urobilinogen Auto test strip (U) [Mass/Vol]Ordered By: Audra Quinteros on 06-26-2021 Urobilinogen (U) [Mass/Vol] Normal mg/dL Normal [facility] pH Auto test strip (U)Ordere d By: Audra Quinteros on 06-26-2021 pH (U) 5.5 [pH] 5.0-9.0 [facility] Activated partial thrombopla stin time (aPTT) in platelet poor plasma by coagulation aOrdered By: Andrew Hernández on 06-25-2021 aPTT Coag (PPP) [Time] 33.4 s 25.1-36.5 [facility] Albumin [Mass/volume] in Ser um or PlasmaOrdered By: Andrew Hernández on 06-25-2021 Albumin [Mass/Vol] 3.4 g/dL 3.2-5.[address] [facility] Basophils Auto (Bld) [#/Vol] Ordered By: Andrew Hernández on 06-25-2021 Basophils (Bld) [#/Vol] 0.0 10*3/uL 0.0-0.2 [facility] Basophils/100 WBC Auto (Bld) Ordered By: Andrew Hernández on 06-25-2021 Basophils/100 WBC (Bld) 0.6 % [place] Blood hemoglobin measurement (mass/volume)Ordered By: Andrew Hernández on 06-25-2021 Hemoglobin (Bld) [Mass/Vol] 11.8 g/dL 13.0-17.0 [facility] Blood leukocytes automated c ount (number/volume)Ordered By: Andrew Hernández on 06-25-2021 WBC (Bld) [#/Vol] 7.5 10*3/uL 4.5-11.[address] [facility] COVID-19 SOFIAOrdered By: Prasanna Hernández on 06-25-2021 SARS-CoV+SARS-CoV-2 (COVID-19) Ag IA.rapid Ql (Resp) Negative Negative [facility] Comment on above: This is a duplicate Jessi SARS Antigen (GABI) result to be used for statistical tracking purpose only. Creatinine and Glomerular fi ltration rate.predicted panel (S/P/Bld)Ordered By: Andrew Hernández on 06-25-2021 Creatinine [Mass/Vol] 2.25 mg/dL 0.64-1.27 [facility] Eosinophils Auto (Bld) [#/Vo l]Ordered By: Andrew Hernández on 06-25-2021 Eosinophils (Bld) [#/Vol] 0.3 10*3/uL 0.0-0.45 [facility] Eosinophils/100 WBC Auto (Bl d)Ordered By: Andrew Hernández on 06-25-2021 Eosinophils/100 WBC (Bld) 4.6 % [facility] Erythrocyte distribution wid th Auto (RBC) [Ratio]Ordered By: Andrew Hernández on 06-25-2021 Erythrocyte distribution width (RBC) [Ratio] 16.1 % 12.0-14.8 [facility] Erythrocyte sedimentation ra te by Photometric methodOrdered By: Andrew Hernández on 06-25-2021 ESR Photometric method (Bld) [Velocity] 39 mm/hr 0-19 [facility] Estimated glomerular filtrat ion rate (GFR) non- AmericanOrdered By: Andrew Hernández on 06-25-2021 GFR/1.73 sq M.predicted among non-blacks MDRD (S/P/Bld) [Vol rate/Area] 28 mL/Min [facility] Globulin Calc (S) [Mass/Vol] Ordered By: Andrew Hernández on 06-25-2021 Globulin (S) [Mass/Vol] 3.2 g/dL [place] Hematocrit Auto (Bld) [Volum e fraction]Ordered By: Andrew Hernández on 06-25-2021 Hematocrit (Bld) [Volume fraction] 36.2 % 38.8-50.0 [facility] Laboratory - Chemistry and C hemistry - challengeOrdered By: Andrew Hernández on 06-25-2021 Natriuretic peptide B (Bld) [Mass/Vol] 165.0 pg/mL 5-100 [facility] Laboratory - CoagulationOrde red By: Andrew Hernádnez on 06-25-2021 PT Coag (PPP) [Time] 11.9 s 9.0-12.9 [facility] Laboratory - Hematology and Cell countsOrdered By: Andrew Hernández on 06-25-2021 Nucleated RBC/100 WBC (Bld) [Ratio] 0.1 % 0-0.5 [facility] Lymphocytes Auto (Bld) [#/Vo l]Ordered By: Andrew Hernández on 06-25-2021 Lymphocytes (Bld) [#/Vol] 1.0 10*3/uL 1.00-4.8 [facility] Lymphocytes/100 WBC Auto (Bl d)Ordered By: Andrew Hernández on 06-25-2021 Lymphocytes/100 WBC (Bld) 12.9 % [facility] MCH Auto (RBC) [Entitic mass ]Ordered By: Andrew Hernández on 06-25-2021 MCH (RBC) [Entitic mass] 28.1 pg 27.5-35.2 [facility] MCHC Auto (RBC) [Mass/Vol]Or dered By: Andrew Hernández on 06-25-2021 MCHC (RBC) [Mass/Vol] 32.7 g/dL 32.5-35.6 [facility] MCV Auto (RBC) [Entitic vol] Ordered By: Andrew Hernández on 06-25-2021 MCV (RBC) [Entitic vol] 86.0 fL 83.5-101 [facility] Monocytes Auto (Bld) [#/Vol] Ordered By: Andrew Hernández on 06-25-2021 Monocytes (Bld) [#/Vol] 0.5 10*3/uL 0.0-0.8 [facility] Monocytes/100 WBC Auto (Bld) Ordered By: Andrew Hernández on 06-25-2021 Monocytes/100 WBC (Bld) 7.3 % [facility] Neutrophils Auto (Bld) [#/Vo l]Ordered By: Andrew Hernández on 06-25-2021 Neutrophils (Bld) [#/Vol] 5.6 10*3/uL 1.8-7.7 [facility] Neutrophils/100 WBC Auto (Bl d)Ordered By: Andrew Hernández on 06-25-2021 Neutrophils/100 WBC (Bld) 74.6 % [facility] No Panel InformationOrdered By: Andrew Hernández on 06-25-2021 SARS Antigen (LFIA) [facility] Estimated GFR () 34 mL/Min [facility] Comment on above: GFR estimated refere nce range: According to KDOQI guidelines, <60 ml/min/1.73m2 is sufficient to diagnose a patient with chronic kidney disease. Pharmacy Creatinine Clearance (Chem 365.00 [facility] Platelet mean volume Auto (B ld) [Entitic vol]Ordered By: Andrew Hernández on 06-25-2021 Platelet mean volume (Bld) [Entitic vol] 10.0 fL 6.6-10.1 [facility] Platelet poor plasma interna tional normalized ratio (INR) by coagulation assay (relatOrdered By: Andrew Hernández on 06-25-2021 INR Coag (PPP) [Relative time] 1.1 {INR} [facility] Comment on above: INR Therapeutic [...] 06-25-2021 Platelets (Bld) [#/Vol] 171 10*3/uL 150-450 [facility] Comment on above: Delta: 119 on 04/05/ 22-0453 Protein [Mass/volume] in Ser um or PlasmaOrdered By: Andrew Hernández on 06-25-2021 Protein [Mass/Vol] 6.6 g/dL 6.1-7.[address] [facility] RBC Auto (Bld) [#/Vol]Ordere d By: Andrew Hernández on 06-25-2021 RBC (Bld) [#/Vol] 4.21 10*6/uL 3.90-5.60 [facility] Serum or plasma C reactive p rotein measurement (mass/volume)Ordered By: Andrew Hernández on 06-25-2021 CRP [Mass/Vol] 0.9 mg/dL 0.0-1.0 [facility] Serum or plasma alanine lopez otransferase measurement without P-5'-P (enzymatic activiOrdered By: Andrew Hernández on 06-25-2021 ALT No additional P-5'-P [Catalytic activity/Vol] 13 U/L 10-60 [facility] Serum or plasma albumin/glob ulin mass ratioOrdered By: Andrew Hernández on 06-25-2021 Albumin/Globulin [Mass ratio] 1.1 {ratio} [facility] Serum or plasma alkaline cande sphatase measurement (enzymatic activity/volume)Ordered By: Andrew Hernández on 06-25-2021 ALP [Catalytic activity/Vol] 57 U/L 32-92 [facility] Serum or plasma aspartate am inotransferase measurement (enzymatic activity/volume)Ordered By: Andrew Hernández on 06-25-2021 AST [Catalytic activity/Vol] 15 U/L 10-42 [facility] Serum or plasma calcium abhijit urement (mass/volume)Ordered By: Andrew Hernández on 06-25-2021 Calcium [Mass/Vol] 9.2 mg/dL 8.2-10.[address] [facility] Serum or plasma chloride marylin surement (moles/volume)Ordered By: Andrew Hernández on 06-25-2021 Chloride [Moles/Vol] 106 mmol/L 95-114 [facility] Serum or plasma glucose abhijti urement (mass/volume)Ordered By: Andrew Hernández on 06-25-2021 Glucose [Mass/Vol] 177 mg/dL 70-[address] [facility] Comment on above: ADA recommended refe rence rangeRandom Glucose Reference Range is dependent on time and content of last meal. Glucose of more than 200 mg/dL in a nonstressed, ambulatory subject supports the diagnosis of Diabetes Mellitus. Serum or plasma potassium me asurement (moles/volume)Ordered By: Andrew Hernández on 06-25-2021 Potassium [Moles/Vol] 4.2 mmol/L 3.5-5.1 [facility] Serum or plasma sodium measu rement (moles/volume)Ordered By: Andrew Hernández on 06-25-2021 Sodium [Moles/Vol] 142 mmol/L 136-[address] [facility] Serum or plasma total biliru bin measurement (mass/volume)Ordered By: Andrew Hernández on 06-25-2021 Bilirubin [Mass/Vol] 0.4 mg/dL 0.3-1.2 [facility] Serum or plasma total carbon dioxide measurement (moles/volume)Ordered By: Andrew Hernández on 06-25-2021 CO2 [Moles/Vol] 24.1 mmol/L 22.0-30.0 [facility] Serum or plasma urea nitroge n measurement (mass/volume)Ordered By: Andrew Hernández on 06-25-2021 Urea nitrogen [Mass/Vol] 41 mg/dL 9-23 [facility] Troponin I.cardiac [Mass/vol ume] in Serum or Plasma by High sensitivity methodOrdered By: Andrew Hernández on 06-25-2021 Troponin I.cardiac High sensitivity method [Mass/Vol] 12 pg/mL 0-20 [facility] Albumin [Mass/volume] in Ser um or PlasmaOrdered By: Julee Davies on 06-24-2021 Albumin [Mass/Vol] 2.9 g/dL 3.2-5.[address] [facility] Basophils Auto (Bld) [#/Vol] Ordered By: Julee Davies on 06-24-2021 Basophils (Bld) [#/Vol] 0.0 10*3/uL 0.0-0.2 [facility] Basophils/100 WBC Auto (Bld) Ordered By: Julee Davies on 04-05-2022 Basophils/100 WBC (Bld) 0.6 % [facility] Blood hemoglobin measurement (mass/volume)Ordered By: Julee Davies on 06-24-2021 Hemoglobin (Bld) [Mass/Vol] 10.8 g/dL 13.0-17.0 [facility] Blood leukocytes automated c ount (number/volume)Ordered By: Julee Davies on 06-24-2021 WBC (Bld) [#/Vol] 6.6 10*3/uL 4.5-11.[address] [facility] Creatinine and Glomerular fi ltration rate.predicted panel (S/P/Bld)Ordered By: Julee Davies on 06-24-2021 Creatinine [Mass/Vol] 2.17 mg/dL 0.64-1.27 [facility] Eosinophils Auto (Bld) [#/Vo l]Ordered By: Julee Davies on 06-24-2021 Eosinophils (Bld) [#/Vol] 0.3 10*3/uL 0.0-0.45 [facility] Eosinophils/100 WBC Auto (Bl d)Ordered By: Julee Davies on 06-24-2021 Eosinophils/100 WBC (Bld) 5.2 % [facility] Erythrocyte distribution wid th Auto (RBC) [Ratio]Ordered By: Julee Davies on 06-24-2021 Erythrocyte distribution width (RBC) [Ratio] 15.8 % 12.0-14.8 [facility] Estimated glomerular filtrat ion rate (GFR) non- AmericanOrdered By: Julee Davies on 06-24-2021 GFR/1.73 sq M.predicted among non-blacks MDRD (S/P/Bld) [Vol rate/Area] 30 mL/Min [facility] Globulin Calc (S) [Mass/Vol] Ordered By: Julee Davies on 06-24-2021 Globulin (S) [Mass/Vol] 2.4 g/dL [facility] Hematocrit Auto (Bld) [Volum e fraction]Ordered By: Julee Davies on 06-24-2021 Hematocrit (Bld) [Volume fraction] 33.0 % 38.8-50.0 [facility] Laboratory - Chemistry and C hemistry - challengeOrdered By: Julee Davies on 06-24-2021 Magnesium [Mass/Vol] 1.9 mg/dL 1.6-2.6 [facility] Natriuretic peptide B (Bld) [Mass/Vol] 224.0 pg/mL 5-100 [facility] Laboratory - Hematology and Cell countsOrdered By: Julee Davies on 06-24-2021 Nucleated RBC/100 WBC (Bld) [Ratio] 0.1 % 0-0.5 [facility] Lymphocytes Auto (Bld) [#/Vo l]Ordered By: Julee Davies on 06-24-2021 Lymphocytes (Bld) [#/Vol] 0.8 10*3/uL 1.00-4.8 [facility] Lymphocytes/100 WBC Auto (Bl d)Ordered By: Julee Davies on 06-24-2021 Lymphocytes/100 WBC (Bld) 11.4 % [facility] MCH Auto (RBC) [Entitic mass ]Ordered By: Julee Davies on 06-24-2021 MCH (RBC) [Entitic mass] 27.7 pg 27.5-35.2 [facility] MCHC Auto (RBC) [Mass/Vol]Or dered By: Julee Davies on 06-24-2021 MCHC (RBC) [Mass/Vol] 32.7 g/dL 32.5-35.6 [facility] MCV Auto (RBC) [Entitic vol] Ordered By: Julee Davies on 06-24-2021 MCV (RBC) [Entitic vol] 84.6 fL 83.5-101 [facility] Monocytes Auto (Bld) [#/Vol] Ordered By: Julee Davies on 06-24-2021 Monocytes (Bld) [#/Vol] 0.5 10*3/uL 0.0-0.8 [facility] Monocytes/100 WBC Auto (Bld) Ordered By: Julee Davies on 06-24-2021 Monocytes/100 WBC (Bld) 7.4 % [facility] Neutrophils Auto (Bld) [#/Vo l]Ordered By: Julee Davies on 06-24-2021 Neutrophils (Bld) [#/Vol] 5.0 10*3/uL 1.8-7.7 [facility] Neutrophils/100 WBC Auto (Bl d)Ordered By: Julee Davies on 06-24-2021 Neutrophils/100 WBC (Bld) 75.4 % [facility] No Panel InformationOrdered By: Julee Davies on 06-24-2021 Estimated GFR () 36 mL/Min [facility] Comment on above: GFR estimated refere nce range: According to KDOQI guidelines, <60 ml/min/1.73m2 is sufficient to diagnose a patient with chronic kidney disease. Pharmacy Creatinine Clearance (Chem N/A [facility] Platelet mean volume Auto (B ld) [Entitic vol]Ordered By: Julee Davies on 06-24-2021 Platelet mean volume (Bld) [Entitic vol] 9.8 fL 6.6-10.1 [facility] Platelets Auto (Bld) [#/Vol] Ordered By: Julee Davies on 06-24-2021 Platelets (Bld) [#/Vol] 119 10*3/uL 150-450 [facility] Protein [Mass/volume] in Ser um or PlasmaOrdered By: Julee Davies on 06-24-2021 Protein [Mass/Vol] 5.3 g/dL 6.1-7.[address] [facility] RBC Auto (Bld) [#/Vol]Ordere d By: Julee Davies on 06-24-2021 RBC (Bld) [#/Vol] 3.90 10*6/uL 3.90-5.60 [facility] Serum or plasma alanine lopez otransferase measurement without P-5'-P (enzymatic activiOrdered By: Julee Davies on 06-24-2021 ALT No additional P-5'-P [Catalytic activity/Vol] 7 U/L 10-60 [facility] Serum or plasma albumin/glob ulin mass ratioOrdered By: Julee Davies on 06-24-2021 Albumin/Globulin [Mass ratio] 1.2 {ratio} [facility] Serum or plasma alkaline cande sphatase measurement (enzymatic activity/volume)Ordered By: Julee Davies on 06-24-2021 ALP [Catalytic activity/Vol] 56 U/L 32-92 [facility] Serum or plasma aspartate am inotransferase measurement (enzymatic activity/volume)Ordered By: Julee Davies on 06-24-2021 AST [Catalytic activity/Vol] 13 U/L 10-42 [facility] Serum or plasma calcium abhijit urement (mass/volume)Ordered By: Julee Davies on 06-24-2021 Calcium [Mass/Vol] 8.9 mg/dL 8.2-10.[address] [facility] Serum or plasma chloride marylin surement (moles/volume)Ordered By: Julee Davies on 06-24-2021 Chloride [Moles/Vol] 109 mmol/L 95-114 [facility] Serum or plasma glucose abhijit urement (mass/volume)Ordered By: Julee Davies on 06-24-2021 Glucose [Mass/Vol] 160 mg/dL 70-[address] [facility] Comment on above: ADA recommended refe rence rangeRandom Glucose Reference Range is dependent on time and content of last meal. Glucose of more than 200 mg/dL in a nonstressed, ambulatory subject supports the diagnosis of Diabetes Mellitus. Serum or plasma potassium me asurement (moles/volume)Ordered By: Julee Davies on 06-24-2021 Potassium [Moles/Vol] 4.1 mmol/L 3.5-5.1 [facility] Serum or plasma sodium measu rement (moles/volume)Ordered By: Julee Davies on 06-24-2021 Sodium [Moles/Vol] 144 mmol/L 136-[address] [facility] Serum or plasma total biliru bin measurement (mass/volume)Ordered By: Julee Davies on 06-24-2021 Bilirubin [Mass/Vol] 0.5 mg/dL 0.3-1.2 [facility] Serum or plasma total carbon dioxide measurement (moles/volume)Ordered By: Julee Davies on 06-24-2021 CO2 [Moles/Vol] 25.7 mmol/L 22.0-30.0 [facility] Serum or plasma urea nitroge n measurement (mass/volume)Ordered By: Julee Davies on 06-24-2021 Urea nitrogen [Mass/Vol] 43 mg/dL 9- [facility] Tacrolimus [Mass/volume] in BloodOrdered By: Julee Davies on 06-24-2021 Tacrolimus (Bld) [Mass/Vol] 8.1 ng/mL [facility] Comment on above: This test was vane christine and its performance characteristicsdetermined by [facility]. It has not been cleared orapproved by the Food and Drug Administration. Trough (immediately following transplant) 15.0 Trough (steady state, 2 weeks or more after transplant): 3.0 - 8.0 Performed by LC-MS/MS technology.Performed at: [address] [id number] Director: Mynor Nixon MD, Phone: [phone] Albumin [Mass/volume] in Ser um or PlasmaOrdered By: Julee Davies on 05-27-2021 Albumin [Mass/Vol] 3.1 g/dL 3.2-5.[address] [facility] Basophils Auto (Bld) [#/Vol] Ordered By: Julee Davies on 05-27-2021 Basophils (Bld) [#/Vol] 0.0 10*3/uL 0.0-0.2 [facility] Basophils/100 WBC Auto (Bld) Ordered By: Julee Davies on 05-27-2021 Basophils/100 WBC (Bld) 0.7 % [place] Blood hemoglobin measurement (mass/volume)Ordered By: Julee Davies on 05-27-2021 Hemoglobin (Bld) [Mass/Vol] 11.4 g/dL 13.0-17.0 [facility] Blood leukocytes automated c ount (number/volume)Ordered By: Julee Davies on 05-27-2021 WBC (Bld) [#/Vol] 6.1 10*3/uL 4.5-11.[address] [facility] Cholesterol [Mass/volume] in Serum or PlasmaOrdered By: Julee Davies on 05-27-2021 Cholesterol [Mass/Vol] 129 mg/dL 140-200 [facility] Comment on above: Chol less than 200 m g/dl low riskChol 201-239 mg/dl borderline riskChol 240 mg/dl and greater high risk Cholesterol in LDL Calc [Mas s/Vol]Ordered By: Julee Davies on 05-27-2021 Cholesterol in LDL [Mass/Vol] 67 mg/dL 0-100 [facility] Comment on above: LDL ATP III CLASSIFI CATIONLDL less than 100 mg/dL OptimalLDL 100-129 mg/dL Near or above optimalLDL 130-159 mg/dL Borderline highLDL 160-189 mg/dL HighLDL greater than 189 mg/dL Very high Cholesterol in VLDL Calc [Ma ss/Vol]Ordered By: Julee Davies on 05-27-2021 Cholesterol in VLDL [Mass/Vol] 27 mg/dL [facility] Creatinine and Glomerular fi ltration rate.predicted panel (S/P/Bld)Ordered By: Julee Davies on 05-27-2021 Creatinine [Mass/Vol] 1.86 mg/dL 0.64-1.27 [facility] Eosinophils Auto (Bld) [#/Vo l]Ordered By: Julee Davies on 05-27-2021 Eosinophils (Bld) [#/Vol] 0.2 10*3/uL 0.0-0.45 [facility] Eosinophils/100 WBC Auto (Bl d)Ordered By: Julee Davies on 05-27-2021 Eosinophils/100 WBC (Bld) 3.7 % [facility] Erythrocyte distribution wid th Auto (RBC) [Ratio]Ordered By: Julee Davies on 05-27-2021 Erythrocyte distribution width (RBC) [Ratio] 14.9 % 12.0-14.8 [facility] Estimated glomerular filtrat ion rate (GFR) non- AmericanOrdered By: Julee Davies on 05-27-2021 GFR/1.73 sq M.predicted among non-blacks MDRD (S/P/Bld) [Vol rate/Area] 35 mL/Min [facility] Globulin Calc (S) [Mass/Vol] Ordered By: Julee Davies on 05-27-2021 Globulin (S) [Mass/Vol] 2.9 g/dL [facility] Glucose mean value [Mass/vol ume] in Blood Estimated from glycated hemoglobinOrdered By: Julee Davies on 05-27-2021 Average glucose Estimated from glycated hemoglobin (Bld) [Mass/Vol] 209 mg/dL [facility] Hematocrit Auto (Bld) [Volum e fraction]Ordered By: Julee Davies on 05-27-2021 Hematocrit (Bld) [Volume fraction] 34.1 % 38.8-50.0 [facility] Hemoglobin A1c percentageOrd ered By: Julee Davies on 05-27-2021 HbA1c (Bld) [Mass fraction] 8.9 % 4.3-5.6 [facility] Comment on above: Increased risk for d iabetes: 5.7 - 6.4diabetes: >6.4glycemic control for adults with diabetes: <7.0 Laboratory - Hematology and Cell countsOrdered By: Julee Davies on 05-27-2021 Nucleated RBC/100 WBC (Bld) [Ratio] 0.2 % 0-0.5 [facility] Lymphocytes Auto (Bld) [#/Vo l]Ordered By: Julee Davies on 05-27-2021 Lymphocytes (Bld) [#/Vol] 1.1 10*3/uL 1.00-4.8 [facility] Lymphocytes/100 WBC Auto (Bl d)Ordered By: Julee Davies on 05-27-2021 Lymphocytes/100 WBC (Bld) 17.9 % [facility] MCH Auto (RBC) [Entitic mass ]Ordered By: Julee Davies on 05-27-2021 MCH (RBC) [Entitic mass] 28.3 pg 27.5-35.2 [facility] MCHC Auto (RBC) [Mass/Vol]Or dered By: Julee Davies on 05-27-2021 MCHC (RBC) [Mass/Vol] 33.5 g/dL 32.5-35.6 [facility] MCV Auto (RBC) [Entitic vol] Ordered By: Julee Davies on 05-27-2021 MCV (RBC) [Entitic vol] 84.5 fL 83.5-101 [facility] Monocytes Auto (Bld) [#/Vol] Ordered By: Julee Davies on 05-27-2021 Monocytes (Bld) [#/Vol] 0.5 10*3/uL 0.0-0.8 [facility] Monocytes/100 WBC Auto (Bld) Ordered By: Julee Davies on 05-27-2021 Monocytes/100 WBC (Bld) 7.9 % [place] Neutrophils Auto (Bld) [#/Vo l]Ordered By: Julee Davies on 05-27-2021 Neutrophils (Bld) [#/Vol] 4.3 10*3/uL 1.8-7.7 [facility] Neutrophils/100 WBC Auto (Bl d)Ordered By: Julee Davies on 05-27-2021 Neutrophils/100 WBC (Bld) 69.8 % [facility] No Panel InformationOrdered By: Julee Davies on 05-27-2021 25-Hydroxy Vitamin D Total 23.8 ng/mL 30-100 [facility] Comment on above: VITAMIN D STATUS 25( [place])VITAMIN D RANGE (ng/mL) Deficient <20 Insufficient 20 to <30Sufficient 30 to 100Reference: Ely MF,Brad NC, Kristy ORTEGA, et al. Evaluation,treatment, and prevention of vitamin D deficiency; an Endocrine Society clinical practice guideline. JCEM. 2010; 96(7):1911-30. Estimated GFR () 43 mL/Min [facility] Comment on above: GFR estimated refere nce range: According to KDOQI guidelines, <60 ml/min/1.73m2 is sufficient to diagnose a patient with chronic kidney disease. Pharmacy Creatinine Clearance (Chem N/A [facility] Platelet Estimate Decreased Normal [facility] Platelet Morphology Comment Normal Normal [facility] Platelet mean volume Auto (B ld) [Entitic vol]Ordered By: Julee Davies on 05-27-2021 Platelet mean volume (Bld) [Entitic vol] 10.6 fL 6.6-10.1 [facility] Platelets Auto (Bld) [#/Vol] Ordered By: Julee Davies on 05-27-2021 Platelets (Bld) [#/Vol] 129 10*3/uL 150-450 [facility] Protein [Mass/volume] in Ser um or PlasmaOrdered By: Julee Davies on 05-27-2021 Protein [Mass/Vol] 6.0 g/dL 6.1-7.[address] [facility] RBC Auto (Bld) [#/Vol]Ordere d By: Julee Davies on 05-27-2021 RBC (Bld) [#/Vol] 4.03 10*6/uL 3.90-5.60 [facility] RBC morphologyOrdered By: Maurice Davies on 05-27-2021 RBC morphology finding Nom (Bld) Normal [facility] Serum or plasma alanine lopez otransferase measurement without P-5'-P (enzymatic activiOrdered By: Julee Davies on 05-27-2021 ALT No additional P-5'-P [Catalytic activity/Vol] 7 U/L 10-60 [facility] Serum or plasma albumin/glob ulin mass ratioOrdered By: Julee Davies on 05-27-2021 Albumin/Globulin [Mass ratio] 1.1 {ratio} [facility] Serum or plasma alkaline cande sphatase measurement (enzymatic activity/volume)Ordered By: Julee Davies on 05-27-2021 ALP [Catalytic activity/Vol] 52 U/L 32-92 [facility] Serum or plasma aspartate am inotransferase measurement (enzymatic activity/volume)Ordered By: Julee Davies on 05-27-2021 AST [Catalytic activity/Vol] 11 U/L 10-42 [facility] Serum or plasma calcium abhijit urement (mass/volume)Ordered By: Julee Davies on 05-27-2021 Calcium [Mass/Vol] 9.0 mg/dL 8.2-10.[address] [facility] Serum or plasma chloride marylin surement (moles/volume)Ordered By: Julee Davies on 05-27-2021 Chloride [Moles/Vol] 104 mmol/L 95-114 [facility] Serum or plasma glucose abhijit urement (mass/volume)Ordered By: Julee Davies on 05-27-2021 Glucose [Mass/Vol] 183 mg/dL 70-[address] [facility] Comment on above: ADA recommended refe rence rangeRandom Glucose Reference Range is dependent on time and content of last meal. Glucose of more than 200 mg/dL in a nonstressed, ambulatory subject supports the diagnosis of Diabetes Mellitus. Serum or plasma high density lipoprotein (HDL) cholesterol measurementOrdered By: Julee Davies on 05-27-2021 Cholesterol in HDL [Mass/Vol] 35 mg/dL 29-71 [facility] Comment on above: HDL CHOL ATP-III CLA SSIFICATION Cardiovascular RiskHDL > or equal to 60 mg/dL LOWHDL < 40 mg/dL HIGH Serum or plasma potassium me asurement (moles/volume)Ordered By: Julee Davies on 05-27-2021 Potassium [Moles/Vol] 4.1 mmol/L 3.5-5.1 [facility] Serum or plasma sodium measu rement (moles/volume)Ordered By: Julee Davies on 05-27-2021 Sodium [Moles/Vol] 140 mmol/L 136-[address] [facility] Serum or plasma total biliru bin measurement (mass/volume)Ordered By: Julee Davies on 05-27-2021 Bilirubin [Mass/Vol] 0.4 mg/dL 0.3-1.2 [facility] Serum or plasma total carbon dioxide measurement (moles/volume)Ordered By: Julee Davies on 05-27-2021 CO2 [Moles/Vol] 26.1 mmol/L 22.0-30.0 [facility] Serum or plasma total choles terol/high density lipoprotein (HDL) cholesterol mass ratOrdered By: Julee Davies on 05-27-2021 Cholesterol.total/Denise sterol in HDL [Mass ratio] 3.7 {ratio} [facility] Serum or plasma urea nitroge n measurement (mass/volume)Ordered By: Jluee Davies on 05-27-2021 Urea nitrogen [Mass/Vol] 38 mg/dL 9-23 [facility] TSH DL <= 0.005 mIU/L QnOrde red By: Julee Davies on 05-27-2021 TSH Qn 4.10 m[IU]/L 0.45-5.33 [facility] Triglyceride [Mass/volume] i n Serum or PlasmaOrdered By: Julee Davies on 05-27-2021 Triglyceride [Mass/Vol] 136 mg/dL 35-149 [facility] Comment on above: TRIG ATP [...] haryngealReference Range: Not Detected.This test has received [facility] Emergency Use Authorization (EUA) and has been verified by [facility] ([facility]). This test is only authorized for the duration of time that circumstances exist to justify the authorization of the emergency use of in vitro diagnostic tests for the detection of SARS-CoV-2 virus and/or diagnosis of COVID-19 infection under section 564(b)(1) of the Act, 21 U.S.C. 360bbb-3(b)(1), unless the authorization is terminated or revoked sooner. [facility] is certified under CLIA-88 as qualified to perform high complexity testing. Testing is performed in the [facility] located at [address] [place] [address].SARS-CoV-2/Flu/RSV Multiplex Test: Fact sheet for providers: https://www.fda.gov/media/934354/downloadFact sheet for patients: https://www.fda.gov/media/472420/download Coronavirus 2019 RNA by PCR, Screening Asymptomtic Canceled [facility] DO Work Phone: Comment on above: SOURCE: Nasal, Nasop haryngeal.This test has received FDA Emergency Use Authorization (EUA) and has been verified by [facility] ([facility]). This test is only authorized for the duration of time that circumstances exist to justify the authorization of the emergency use of in vitro diagnostic tests for the detection of SARS-CoV-2 virus and/or diagnosis of COVID-19 infection under section 564(b)(1) of the Act, 21 U.S.C. 360bbb-3(b)(1), unless the authorization is terminated or revoked sooner. [facility] is certified under CLIA-88 as qualified to perform high complexity testing. Testing is performed in the [facility] located at [address] [place] [address].SARS-CoV-2/Flu/RSV Multiplex Test: Fact sheet for providers: https://www.fda.gov/media/522400/downloadFact sheet for patients: https://www.fda.gov/media/407554/download Laboratory - Chemistry and C hemistry - challengeon 12-24-2020 Glucose [Mass/Vol] 203 mg/dL above high threshold 74 - 99 [facility] DO Work Phone: Laboratory - Hematology and Cell countson 12-24-2020 Erythrocyte distribution width (RBC) [Ratio] 12.7 % See Below [facility] DO Work Phone: Comment on [...] lo w threshold 150 - 450 [facility] DO Work Phone: [phone] RBC (Bld) [#/Vol] 3.92 {x10E12/L} below low threshold See Below [facility] DO Work Phone: Comment on above: Reference Range: 4.5 0 - 5.90 WBC (Bld) [#/Vol] 5.1 10*3/uL 4.4 - 11.3 [facility] [address] DO Work Phone: [phone] No Panel Informationon 12-24 Please click on the link to view the study images Normal [facility] DO Work Phone: 0.0 {/100_WBC} 0.0-0.0 [facility] DO Work Phone: [phone] Renal Function Panelon 12-24 Albumin BCP dye [Mass/Vol] 3.6 g/dL 3.4 - 5.0 [facility] DO Work Phone: Anion gap [Moles/Vol] 15 mmol/L 10 - 20 [facility] DO Work Phone: [phone] Calcium [Mass/Vol] 9.0 mg/dL 8.6 - 10.6 [facility] DO Work Phone: [phone] Chloride [Moles/Vol] 109 mmol/L above high threshold 98 - 107 [facility] DO Work Phone: CO2 [Moles/Vol] 24 mmol/L 21 - 32 [facility] DO Work Phone: Creatinine [Mass/Vol] [...] Function Panel 45 {mL/min/1.73m2} Abnormal >60 [facility] 260 DO Work Phone: Comment on above: CALCULATIONS OF ERNST MATED GFR ARE PERFORMED USING THE MDRD STUDY EQUATION FOR THE IDMS-TRACEABLE CREATININE METHODS. CLIN CHEM 2007;53:766-72 Renal Function Panel 37 {mL/min/1.73m2} Abnormal >60 [facility] 260 DO Work Phone: Tacrolimuson 12-24-2020 Tacrolimus (Bld) [Mass/Vol] 5.4 ng/mL 2.0 - 15.0 [facility] 260 DO Work Phone: Comment on above: NOTE: Result was obt ained using a chemiluminescent microparticle immunoassay (CMIA) on the [employer] i system.Optimal therapeutic ranges for immuno-suppressant drugs depend upon an individualpatient's current clinical state, type oforgan transplant, time post-transplant,co-administration of other immunosuppressants,and other clinical factors. The results ofthis test should be correlated with additionalclinical and laboratory data before changesin treatment regimens are made. CT Head without Contraston 1 CT Head limited WO contrast Normal [facility] 260 DO Work Phone: [phone] Laboratory - Chemistry and C hemistry - challengeon 12-23-2020 Glucose [Mass/Vol] 151 mg/dL above high threshold 74 - 99 [facility] 260 DO Work Phone: [phone] Glucose [Mass/Vol] 241 mg/dL above high threshold 74 - 99 [facility] 260 DO Work Phone: [phone] Glucose [Mass/Vol] 195 mg/dL above high threshold 74 - 99 [facility] 260 DO Work Phone: [phone] Glucose [Mass/Vol] 160 mg/dL above high threshold 74 - 99 [facility] 260 DO Work Phone: [phone] Laboratory - Hematology and Cell countson 12-23-2020 Erythrocyte distribution width (RBC) [Ratio] 12.5 % See Below [facility] 260 DO Work Phone: [phone] Comment on above: Reference Range: 11. 5 - 14.5 Hematocrit (Bld) [Volume fraction] 34.3 % below low threshold See Below [facility] 260 DO Work Phone: [phone] Comment on above: Reference Range: 41. 0 - 52.0 Hemoglobin (Bld) [Mass/Vol] 11.1 g/dL below low threshold See Below [facility] 260 DO Work Phone: [phone] Comment on above: Reference Range: 13. 5 - 17.5 MCHC (RBC) [Mass/Vol] 32.4 g/dL See Below [facility] 260 DO Work Phone: [phone] Comment on above: Reference Range: 32. 0 - 36.0 MCV (RBC) [Entitic vol] 90 fL 80 - 100 M [facility] 260 DO Work Phone: [phone] Platelets (Bld) [#/Vol] 106 10*3/uL below lo w threshold 150 - 450 [facility] 260 DO Work Phone: [phone] RBC (Bld) [#/Vol] 3.83 {x10E12/L} below low threshold See Below [facility] 260 DO Work Phone: [phone] Comment on above: Reference Range: 4.5 0 - 5.90 WBC (Bld) [#/Vol] 5.2 10*3/uL 4.4 - 11.3 [facility] 260 DO Work Phone: [phone] No Panel Informationon 12-23 0.0 {/100_WBC} 0.0-0.0 [facility] 260 DO Work Phone: [phone] Renal Function Panelon 12-23 Albumin BCP dye [Mass/Vol] 3.6 g/dL 3.4 - 5.0 [facility] 260 DO Work Phone: [phone] Anion gap [Moles/Vol] 14 mmol/L 10 - 20 [facility] 260 DO Work Phone: [phone] Calcium [Mass/Vol] 8.9 mg/dL 8.6 - 10.6 [facility] 260 DO Work Phone: [phone] Chloride [Moles/Vol] 109 mmol/L above high threshold 98 - 107 [facility] 260 DO Work Phone: [phone] CO2 [Moles/Vol] 23 mmol/L 21 - 32 [facility] 260 DO Work Phone: [phone] Creatinine [Mass/Vol] 1.71 mg/dL above high threshold See Below [facility] 260 DO Work Phone: Comment on above: Reference Range: 0.5 0 - 1.30 Glucose [Mass/Vol] 146 mg/dL above high threshold 74 - 99 [facility] 260 DO Work Phone: Phosphate [Mass/Vol] [...] 4.2 mmol/L 3.5 - 5.3 [facility] 260 DO Work Phone: Sodium [Moles/Vol] 142 mmol/L 136 - 145 [facility] 260 DO Work Phone: Urea nitrogen [Mass/Vol] 50 mg/dL above high threshold 6 - 23 [facility] 260 DO Work Phone: Renal Function Panel 47 {mL/min/1.73m2} Abnormal >60 [facility] 260 DO Work Phone: Comment on above: CALCULATIONS OF ERNST MATED GFR ARE PERFORMED USING THE MDRD STUDY EQUATION FOR THE IDMS-TRACEABLE CREATININE METHODS. CLIN CHEM 2007;53:766-72 Renal Function Panel 39 {mL/min/1.73m2} Abnormal >60 [facility] 260 DO Work Phone: Tacrolimuson 12-23-2020 Tacrolimus (Bld) [Mass/Vol] 5.9 ng/mL 2.0 - 15.0 [facility] 260 DO Work Phone: Comment on above: NOTE: Result was obt ained using a chemiluminescent microparticle immunoassay (CMIA) on the Fisher [employer] i system.Optimal therapeutic ranges for immuno-suppressant drugs [...] [facility] 260 DO Work Phone: [phone] Glucose [Mass/Vol] 217 mg/dL above high threshold 74 - 99 [facility] 260 DO Work Phone: [phone] Glucose [Mass/Vol] 145 mg/dL above high threshold 74 - 99 [facility] 260 DO Work Phone: Glucose [Mass/Vol] 142 mg/dL above high threshold 74 - 99 [facility] 260 DO Work Phone: Laboratory - Hematology and Cell countson 12-22-2020 Erythrocyte distribution width (RBC) [Ratio] 12.6 % See Below [facility] 260 DO Work Phone: Comment on above: Reference Range: 11. 5 - 14.5 Hematocrit (Bld) [Volume fraction] 33.0 % below low threshold See Below [facility] 260 DO Work Phone: Comment on above: Reference Range: 41. 0 - 52.0 Hemoglobin (Bld) [Mass/Vol] 10.7 g/dL below low threshold See Below [facility] 260 DO Work Phone: Comment on above: Reference Range: 13. 5 - 17.5 MCHC (RBC) [Mass/Vol] 32.4 g/dL See Below [facility] 260 DO Work Phone: [phone] Comment on above: Reference Range: 32. 0 - 36.0 MCV (RBC) [Entitic vol] 91 fL 80 - 100 [facility] 260 DO Work Phone: [phone] Platelets (Bld) [#/Vol] 107 10*3/uL below lo w threshold 150 - 450 [facility] 260 DO Work Phone: [phone] RBC (Bld) [#/Vol] 3.62 {x10E12/L} below low threshold See Below [facility] 260 DO Work Phone: [phone] Comment on above: Reference Range: 4.5 0 - 5.90 WBC (Bld) [#/Vol] 5.0 10*3/uL 4.4 - 11.3 [facility] 260 DO Work Phone: [phone] No Panel Informationon 12-22 0.0 {/100_WBC} 0.0-0.0 [facility] 260 DO Work Phone: [phone] Renal Function Panelon 12-22 Albumin BCP dye [Mass/Vol] 3.5 g/dL 3.4 - 5.0 [facility] 260 DO Work Phone: [phone] Anion gap [Moles/Vol] 15 mmol/L 10 - 20 [facility] 260 DO Work Phone: [phone] Calcium [Mass/Vol] 8.9 mg/dL 8.6 - 10.6 [facility] 260 DO Work Phone: [phone] Chloride [Moles/Vol] 111 mmol/L above high threshold 98 - 107 [facility] 260 DO Work Phone: [phone] CO2 [Moles/Vol] 23 mmol/L 21 - 32 [facility] 260 DO Work Phone: [phone] Creatinine [Mass/Vol] 2.04 mg/dL above high threshold See Below [facility] 260 DO Work Phone: Comment on above: Reference Range: 0.5 0 - 1.30 Glucose [Mass/Vol] 131 mg/dL above high threshold 74 - 99 [facility] 260 DO Work Phone: Phosphate [Mass/Vol] 3.3 mg/dL 2.5 - 4.9 [facility] 260 DO Work Phone: Comment on [...] Function Panel 32 {mL/min/1.73m2} Abnormal >60 [facility] 260 DO Work Phone: Tacrolimuson 12-22-2020 Tacrolimus (Bld) [Mass/Vol] 5.5 ng/mL 2.0 - 15.0 [facility] 260 DO Work Phone: Comment on above: NOTE: Result was obt ained using a chemiluminescent microparticle immunoassay (CMIA) on the Fisher [employer] i system.Optimal therapeutic ranges for immuno-suppressant drugs [...] Phone: HbA1c (Bld) [Mass fraction] Canceled [facility] 260 DO Work Phone: Comment on above: Diagnosis of Diabete s-Adults Non-Diabetic: < or = 5.6% Increased risk for developing diabetes: 5.7-6.4% Diagnostic of diabetes: > or = 6.5%. Monitoring of Diabetes Age (y) Therapeutic Goal (%) Adults: >18 <7.0 Pediatrics: 13-18 <7.5 7-12 <8.0 0- 6 7.5-8.5 [place] [employer]. Diabetes Care 33(S1), Mar 2009. [...] 13-18 <7.5 7-12 <8.0 0- 6 7.5-8.5 [place] [employer]. Diabetes Care 33(S1), Mar 2009. Hemoglobin A1C Canceled [facility] 260 DO Work Phone: Laboratory - Chemistry and C hemistry - challengeon 12-21-2020 Glucose [Mass/Vol] 191 mg/dL above high threshold 74 - 99 [facility] 260 DO Work Phone: Glucose [Mass/Vol] 203 mg/dL above high threshold 74 - 99 [facility] 260 DO Work Phone: [phone] Glucose [Mass/Vol] 229 mg/dL above high threshold 74 - 99 [facility] 260 DO Work Phone: Glucose [Mass/Vol] 136 mg/dL above high threshold 74 - 99 [facility] 260 DO Work Phone: Laboratory - [...] [facility] 260 DO Work Phone: [phone] Platelets (Bld) [#/Vol] 124 10*3/uL below lo w threshold 150 - 450 [facility] 260 DO Work Phone: [phone] RBC (Bld) [#/Vol] 4.01 {x10E12/L} below low threshold See Below [facility] 260 DO Work Phone: [phone] Comment on above: Reference Range: 4.5 0 - 5.90 WBC (Bld) [#/Vol] 6.2 10*3/uL 4.4 - 11.3 [facility] 260 DO Work Phone: [phone] No Panel Informationon 12-21 0.0 {/100_WBC} 0.0-0.0 [facility] 260 DO Work Phone: [phone] Renal Function Panelon 12-21 Albumin BCP dye [Mass/Vol] 3.8 g/dL 3.4 - 5.0 [facility] 260 DO Work Phone: [phone] Anion gap [Moles/Vol] 15 mmol/L 10 - 20 [facility] 260 DO Work Phone: [phone] Calcium [Mass/Vol] 8.8 mg/dL 8.6 - 10.6 [facility] 260 DO Work Phone: [phone] Chloride [Moles/Vol] 110 mmol/L above high threshold 98 - 107 [facility] 260 DO Work Phone: [phone] CO2 [Moles/Vol] 23 mmol/L 21 - 32 [facility] 260 DO Work Phone: [phone] Creatinine [Mass/Vol] 2.22 mg/dL above high threshold See Below [facility] 260 DO Work Phone: [phone] Comment on above: Reference Range: 0.5 0 - 1.30 Glucose [Mass/Vol] 114 mg/dL above high threshold 74 - 99 [facility] 260 DO Work Phone: Phosphate [Mass/Vol] 3.6 mg/dL 2.5 - 4.9 [facility] 260 DO Work Phone: Comment on above: The performance waqar acteristics of phosphorus testing in heparinized plasma have been validated by the individual laboratory site where testing is performed. Testing on heparinized plasma is not approved by the FDA; however, such approval is not necessary. Potassium [Moles/Vol] 4.1 mmol/L 3.5 - 5.3 [facility] 260 DO Work Phone: Sodium [Moles/Vol] 144 mmol/L 136 - 145 [facility] 260 DO Work Phone: Urea nitrogen [Mass/Vol] 68 mg/dL above high threshold 6 - 23 [facility] 260 DO Work Phone: Renal Function Panel 35 {mL/min/1.73m2} Abnormal >60 [facility] 260 DO Work Phone: Comment on above: CALCULATIONS OF ERNST MATED GFR ARE PERFORMED USING THE MDRD STUDY EQUATION FOR THE IDMS-TRACEABLE CREATININE METHODS. CLIN CHEM 2007;53:766-72 Renal Function Panel 29 {mL/min/1.73m2} Abnormal >60 [facility] 260 DO Work Phone: Tacrolimuson 12-21-2020 Tacrolimus (Bld) [Mass/Vol] 6.8 ng/mL 2.0 - 15.0 [facility] 260 DO Work Phone: Comment on above: NOTE: Result was obt ained using a chemiluminescent microparticle immunoassay (CMIA) on the Fisher [employer] i system.Optimal therapeutic ranges for immuno-suppressant drugs depend upon an individualpatient's current clinical state, type oforgan transplant, time post-transplant,co-administration of other immunosuppressants,and other clinical factors. The results ofthis test should be correlated with additionalclinical and laboratory data before changesin treatment regimens are made. Coronavirus 2019 RNA by PCR, Symptomaticon 12-20-2020 Coronavirus 2019 RNA by PCR, Symptomatic Not detected Normal See Below [facility] 260 DO Work Phone: Comment on above: SOURCE: Nasal, Nasop haryngealReference Range: Not Detected.This test has received FDA Emergency Use Authorization (EUA) and has been verified by [facility] ([facility]). This test is only authorized for the duration of time that circumstances exist to justify the authorization of the emergency use of in vitro diagnostic tests for the detection of SARS-CoV-2 virus and/or diagnosis of COVID-19 infection under section 564(b)(1) of the Act, 21 U.S.C. 360bbb-3(b)(1), unless the authorization is terminated or revoked sooner. [facility] is certified under CLIA-88 as qualified to perform high complexity testing. Testing is performed in the [facility] located at [address] [place] [address].SARS-CoV-2/Flu/RSV Multiplex Test: Fact sheet for providers: https://www.fda.gov/media/166308/downloadFact sheet for patients: https://www.fda.gov/media/277734/download Date and time of symptom onset Canceled [facility] 260 DO Work Phone: Coronavirus 2019 RNA by PCR, Symptomatic Canceled [facility] 260 DO Work Phone: Comment on [...] this test method. Fact sheet for providers: www.fda.gov/media/645407/downloadFact sheet for patients: www.fda.gov/media/160591/downloadThis test has received FDA Emergency Use Authorization (EUA) and has been verified by [facility] ([facility]). This test is only authorized for the duration of time that circumstances exist to justify the authorization of the emergency use of in vitro diagnostic tests for the detection of SARS-CoV-2 virus and/or diagnosis of COVID-19 infection under section 564(b)(1) of the Act, 21 U.S.C. 360bbb-3(b)(1), unless the authorization is terminated or revoked sooner. [facility] is certified under CLIA-88 as qualified to perform high complexity testing. Testing is performed in the [facility] laboratories located at [address] [place] [address]. Folate, Serumon 12-20-2020 Folate [Mass/Vol] ng/mL >5.0 [facility] 260 DO Work Phone: Comment on [...] TSH Qn 2.00 m[IU]/L See Below [facility] 260 DO Work Phone: Comment on above: Reference Range: 0.4 4 - 3.98 TSH testing is performed using different testing methodology at [facility] than at other [facility]. Direct result comparisons should only be [...] [facility] 260 DO Work Phone: [phone] PT Coag (PPP) [Time] Canceled [facility] 260 DO Work Phone: [phone] Laboratory - Hematology and Cell countson 12-20-2020 Erythrocyte distribution width (RBC) [Ratio] 12.9 % See Below [facility] 260 DO Work Phone: [phone] Comment on above: Reference Range: 11. 5 - 14.5 Hematocrit (Bld) [Volume fraction] 35.8 % below low threshold See Below [facility] 260 DO Work Phone: [phone] Comment on above: Reference Range: 41. 0 - 52.0 Hemoglobin (Bld) [Mass/Vol] 11.7 g/dL below low threshold See Below [facility] 260 DO Work Phone: [phone] Comment on above: Reference Range: 13. 5 - 17.5 MCHC (RBC) [Mass/Vol] 32.7 g/dL See Below [facility] 260 DO Work Phone: [phone] Comment on above: Reference Range: 32. 0 - 36.0 MCV (RBC) [Entitic vol] 90 fL 80 - 100 M [facility] 260 DO Work Phone: [phone] Platelets (Bld) [#/Vol] 131 10*3/uL below lo w threshold 150 - 450 [facility] 260 DO Work Phone: [phone] RBC (Bld) [#/Vol] 3.97 {x10E12/L} below low [...] above: . <100 pg/mL - Heart failure -174 pg/mL - Intermediate probability of acute heart. [...] Radiologyon 12-20-2020 XR Abdomen AP Normal [facility] 260 DO Work Phone: XR Chest [...] 9.2 mg/dL 8.6 - 10.6 [facility] 260 DO Work Phone: [phone] Chloride [Moles/Vol] 112 mmol/L above high threshold 98 - 107 [facility] 260 DO Work Phone: [phone] CO2 [Moles/Vol] 24 mmol/L 21 - 32 [facility] 260 DO Work Phone: [phone] Creatinine [Mass/Vol] 2.40 mg/dL above high threshold See Below [facility] 260 DO Work Phone: [phone] Comment on above: Reference Range: 0.5 0 - 1.30 Glucose [Mass/Vol] 211 mg/dL above high threshold 74 - 99 [facility] 260 DO Work Phone: [phone] Phosphate [Mass/Vol] 4.5 mg/dL 2.5 - 4.9 [facility] 260 DO Work Phone: [phone] Comment on above: The performance waqar acteristics [...] above high threshold 136 - 145 [facility] 260 DO Work Phone: [phone] Urea nitrogen [Mass/Vol] 74 mg/dL above high threshold 6 - 23 [facility] 260 DO Work Phone: Renal Function Panel 31 {mL/min/1.73m2} Abnormal >60 [facility] 260 DO Work Phone: Comment on [...] a chemiluminescent microparticle immunoassay (CMIA) on the Fisher [employer] i system.Optimal therapeutic ranges for immuno-suppressant drugs depend upon an individualpatient's current clinical state, type oforgan transplant, time post-transplant,co-administration of other immunosuppressants,and other clinical factors. The results ofthis test should be correlated with additionalclinical and laboratory data before changesin treatment regimens are made. Troponin I, Serumon 12-21-19 Troponin I.cardiac [Mass/Vol] 0.02 ng/mL See Below [facility] 260 DO Work Phone: Comment on [...] is performed using different testing methodology at [facility] than at other [facility] hospitals. Direct result comparisons should only [...] above high threshold 211 - 911 [facility] [address] [email or web address] Work Phone: Basic Metabolic PanelOrdered By: Manuel Conner on 12-19-2020 Anion gap [Moles/Vol] 11 mmol/L 9 - 17 mmol/L [employer] Phone: Calcium [Mass/Vol] 9.3 mg/dL 8.6 - 10. 4 mg/dL [employer] Phone: Chloride [Moles/Vol] 107 mmol/L 98 - 10 7 mmol/L [employer] Phone: CO2 [Moles/Vol] 23 mmol/L 20 - 31 mmol/L [employer] Phone: Creatinine [Mass/Vol] 2.53 mg/dL High 0.70 - 1.20 mg/dL [facility] [employer] Phone: GFR 30 mL/min Low >60 [employer] Phone: GFR Non- 25 mL/min Low >60 [employer] Phone: Glucose [Mass/Vol] 160 mg/dL High 70 - 99 mg/dL [employer] Phone: Interpretation and review of laboratory results Abnormal [employer] Phone: Potassium [Moles/Vol] 4.5 mmol/L 3.7 - 5.3 mmol/L [employer] Phone: Sodium [Moles/Vol] 141 mmol/L 135 - 144 mmol/L [employer] Phone: Urea nitrogen (BldV) [Mass/Vol] 76 mg/dL High 8 - 23 mg/dL [employer] Phone: Urea nitrogen/Creatinine (Bld) [Mass ratio] 30 High [employer] Phone: [employer] Phone: Laboratory - Chemistry and C hemistry - challengeOrdered By: Manuel Conner on 12-19-2020 GFR/1.73 sq M.predicted MDRD (S/P/Bld) [Vol rate/Area] [employer] Phone: Comment on above: Average GFR for 70 o r more years old: 75 mL/min/1.73sq m Chronic Kidney Disease: <60 mL/min/1.73sq m Kidney failure: <15 mL/min/1.73sq m eGFR calculated using average adult body mass. Additional eGFR calculator available at: http://www.[employer]/Jongla_crcl_2012.htm Stage 1: Some kidney damage normal GFR Stage 2: Mild kidney damage GFR 60-89 Stage 3: Moderate kidney damage GFR 30-59 Stage 4: Severe kidney damage GFR 15-29 Stage 5: Severe kidney damage GFR <15 ESRD - chronic treatment by dialysis or transplant TroponinOrdered By: Manuel Conner on 12-19-2020 Interpretation and review of laboratory results Abnormal [employer] Phone: Troponin Interp NOT REPORTED [employer] Phone: Troponin T NOT REPORTED <0.03 ng/mL [employer] Phone: Troponin, High Sensitivity 57 ng/L Critically high 0 - 22 ng/L [employer] Phone: Comment on above: High Sensitivity Troponin values cannot be compared with other Troponin methodologies. Patients with high levels of Biotin oral intake (i.e >5mg/day) may have falsely decreased Troponin levels. Samples collected within 8 hours of biotin intake may require additional information for diagnosis. [employer] Phone: Basic Metabolic PanelOrdered By: Manuel Conner on 12-18-2020 Anion gap [Moles/Vol] 14 mmol/L 9 - 17 mmol/L [employer] Phone: Calcium [Mass/Vol] 9.3 mg/dL 8.6 - 10. 4 mg/dL [employer] Phone: Chloride [Moles/Vol] 104 mmol/L 98 - 10 7 mmol/L [employer] Phone: CO2 [Moles/Vol] 22 mmol/L 20 - 31 mmol/L [employer] Phone: Creatinine [Mass/Vol] 4.1 mg/dL High 0.70 - 1.20 mg/dL [employer] Phone: GFR 17 mL/min Low >60 [employer] Phone: GFR Non- 14 mL/min Low >60 [employer] Phone: Glucose [Mass/Vol] 148 mg/dL High 70 - 99 mg/dL [employer] Phone: Potassium [Moles/Vol] 5.2 mmol/L 3.7 - 5.3 mmol/L [employer] Phone: Sodium [Moles/Vol] 140 mmol/L 135 - 144 mmol/L [employer] Phone: Urea nitrogen (BldV) [Mass/Vol] 87 mg/dL High 8 - 23 mg/dL [employer] Phone: Urea nitrogen/Creatinine (Bld) [Mass ratio] 21 High [employer] Phone: Brain Natriuretic PeptideOrd ered By: Manuel Conner on 12-18-2020 BNP Interpretation Pro-BNP Reference Range: [employer] Phone: Comment on above: Rule Out: <300 Pagan Zone: Age <50 300-450 Age 50-75 300-900 Age >75 300-1800 Usually represents mild to moderate HF but other cardiopulmonary causes cannot be ruled out. Rule In: Age <50 >450 Age 50-75 >900 Age >75 >1800 Interpretation and review of laboratory results Abnormal [employer] Phone: Natriuretic peptide B (Bld) [Mass/Vol] 846 pg/mL High <300 [employer] Phone: Comment on above: Pro-BNP results halie ot be compared to BNP results. [employer] Phone: EKG Rhythm StripOrdered By: Unknown Result on 12-18-2020 [employer] Phone: [employer] Phone: Glucose, Whole BloodOrdered By: Manuel Conner on 12-18-2020 Glucose [Mass/Vol] 152 mg/dL High 74 - 100 mg/dL [employer] Phone: Interpretation and review of laboratory results Abnormal [employer] Phone: [employer] Phone: Laboratory - Chemistry and C hemistry - challengeOrdered By: Manuel Conner on 12-18-2020 GFR/1.73 sq M.predicted MDRD (S/P/Bld) [Vol rate/Area] [employer] Phone: Comment on above: Average GFR for 70 o r more years old: 75 mL/min/1.73sq m Chronic Kidney Disease: <60 mL/min/1.73sq m Kidney failure: <15 mL/min/1.73sq m eGFR calculated using average adult body mass. Additional eGFR calculator available at: http://www.[employer]/multiple_crcl_2012.htm Stage 1: Some kidney damage normal GFR Stage 2: Mild kidney damage GFR 60-89 Stage 3: Moderate kidney damage GFR 30-59 Stage 4: Severe kidney damage GFR 15-29 Stage 5: Severe kidney damage GFR <15 ESRD - chronic treatment by dialysis or transplant No Panel InformationOrdered By: Manuel Conner on 12-18-2020 Interpretation and review of laboratory results Abnormal [employer] Phone: [employer] Phone: TroponinOrdered By: Manuel Conner on 12-18-2020 Troponin Interp NOT REPORTED [employer] Phone: Troponin T NOT REPORTED <0.03 ng/mL [employer] Phone: Troponin, High Sensitivity 71 ng/L Critically high 0 - 22 ng/L [employer] Phone: Comment on above: High Sensitivity Troponin [...] Consider advancement by 5-7 cm, if able. [employer] Phone: EXAMINATION: ONE XRA Y VIEW OF [...] cardiomegaly. Bony thorax is without acute abnormality. [employer] Phone: Roger, Mhpn Incoming R adiant Results From [employer] - 12/18/2020 1:31 PM EDT EXAMINATION: ONE [...] Consider advancement by 5-7 cm, if able. [employer] Phone: The [facility] Phone: XR CHEST PORTABLEOrdered By: Manuel Conner on 12-18-2020 Mild prominence of interstitial markings suggests mild vascular congestion with mild streaky bibasilar atelectasis [facility] Phone: EXAMINATION: ONE XRA Y VIEW OF THE CHEST 12/18/2020 11:18 am COMPARISON: December 17, 2020, chest examination HISTORY: ORDERING SYSTEM PROVIDED HISTORY: Congestion TECHNOLOGIST PROVIDED HISTORY: Congestion FINDINGS: Median sternotomy. Stable cardiomegaly/mild tortuosity of the thoracic aorta Mild streaky bibasilar density. Mild prominence of interstitial markings Possible small right pleural effusion Degenerative changes of the thoracic spine/shoulders [facility] Phone: Roger, Mhpn Incoming R adiant Results From [employer]Reader[employer] - 12/18/2020 11:26 AM EDT EXAMINATION: ONE [...] vascular congestion with mild streaky bibasilar atelectasis [facility] Phone: [facility] Phone: APTTOrdered By: Manuel lew on 12-17-2020 aPTT Coag (Bld) [Time] 22.8 s Low [employer] Phone: Comment on above: IV Heparin Therapy Range: 62.0-94.0 Interpretation and review of laboratory results Abnormal [facility] Phone: [facility] Phone: Blood Gas, VenousOrdered By: Manuel Conner on 12-17-2020 Shilo Test NOT REPORTED [facility] Phone: Carboxyhemoglobin NOT REPORTED 0.0 - 5.0 % [facility] Phone: Comment on above: FIO2 NOT REPORTED [facility] Phone: HCO3 (Bld) [Moles/Vol] 21.9 mmol/L Low 24.0 - 30.0 mmol/L [facility] Phone: Interpretation and review of laboratory results Abnormal [facility] Phone: Methemoglobin NOT REPORTED 0.0 - 1.9 % [facility] Phone: Mode NOT REPORTED [facility] Phone: Negative Base Excess, Angelo 5.7 mmol/L High 0.0 - 2.0 mmol/L [facility] Phone: NOTIFICATION NOT REPORTED [facility] Phone: NOTIFICATION TIME NOT REPORTED [facility] Phone: O2 Device/Flow/% NOT REPORTED [facility] Phone: Oxygen saturation in Blood 31.2 % Low 60.0 - 85.0 % [facility] Phone: Oxyhemoglobin NOT REPORTED 95.0 - 98.0 [...] Work Phone: Respiratory Rate NOT REPORTED [facility] Work Phone: Sample Site NOT REPORTED [facility] Work Phone: Set Rate NOT REPORTED [facility] Work Phone: Text for Respiratory NOT REPORTED [facility] Work Phone: Total Hb NOT REPORTED 12.0 - 16.0 g/dl [facility] Work Phone: Total Rate NOT REPORTED [facility] Work Phone: [place] NOT REPORTED [facility] Work Phone: [facility] Work Phone: Brain Natriuretic PeptideOrd ered By: Manuel Conner on 12-17-2020 BNP Interpretation Pro-BNP Reference Range: [facility] Phone: Comment on above: Rule Out: <300 Pagan Zone: Age <50 300-450 Age 50-75 300-900 Age >75 300-1800 Usually represents mild to moderate HF but other cardiopulmonary causes cannot be ruled out. Rule In: Age <50 >450 Age 50-75 >900 Age >75 >1800 Natriuretic peptide B (Bld) [Mass/Vol] 1428 pg/mL High <300 [facility] Phone: Comment on above: Pro-BNP results halie ot be compared to BNP results. CBC Auto DifferentialOrdered By: Manuel oCnner on 12-17-2020 Absolute Eos # 0.03 [facility] Phone: Absolute Immature Granulocyte 0.03 [facility] Phone: Absolute Lymph # 0.96 Low [facility] Phone: Absolute [place] # 0.52 [facility] Phone: Basophils (Bld) [#/Vol] 10*3/uL [facility] [employer] Phone: Basophils/100 WBC (Bld) 0 % 0 - 2 % [facility] [employer] [facility] Phone: Differential Type NOT REPORTED [facility] Phone: Eosinophils/100 WBC (Bld) 0 % Low 1 - 4 % [facility] Phone: Hematocrit (Bld) [Volume fraction] 37.2 % Low 40.7 - 50.3 % [facility] Phone: Hemoglobin.gastrointest inal spec 1 Ql (Stl) 11.5 g/dL Low 13.0 - 17.0 g/dL [facility] Phone: Immature granulocytes/100 WBC (Bld) 0 % 0 [facility] Phone: Interpretation and review of laboratory results Abnormal [facility] Phone: [phone] Lymphocytes/100 WBC (Bld) 11 % Low 24 - 43 % [facility] Phone: MCH (RBC) [Entitic mass] 28.5 pg 25.2 - 33.5 pg [facility] Phone: MCHC (RBC) [Mass/Vol] 30.9 g/dL 28.4 - 34.8 g/dL [facility] Phone: MCV (RBC) [Entitic vol] 92.3 fL 82.6 - 102.9 fL [facility] Phone: Monocytes/100 WBC (Bld) 6 % 3 - 12 % [facility] [employer] [facility] Phone: NRBC Automated 0.0 0.0 per 100 WBC [facility] Phone: Platelet distribution width (Bld) [Ratio] 13.0 % 11.8 - 14.4 % [facility] Phone: Platelet Estimate NOT REPORTED [facility] Phone: Platelet mean volume (Bld) [Entitic vol] NOT REPORTED 8.1 - 13.5 fL [facility] Phone: Platelets (Bld) [#/Vol] See Reflexed IPF Result [facility] Phone: RBC (Bld) [#/Vol] 4.03 10*6/uL Low 4.21 - 5.77 m/uL [facility] Phone: RBC (Bld) [#/Vol] NOT REPORTED [facility] Phone: Segmented neutrophils/100 WBC (Bld) 82 % High 36 - 65 % [facility] Phone: Segs Absolute 6.94 [facility] Phone: WBC (Bld) [#/Vol] 8.5 10*3/uL [facility] Phone: WBC (Bld) [#/Vol] NOT REPORTED [facility] Phone: [facility] Phone: COVID-19, RapidOrdered By: Agnieszka yaritza Conner on 12-17-2020 SARS-CoV-2 (COVID-19) RNA JOYCE+probe Ql (Unsp spec) Not detected Not Detected [facility] Phone: Comment on above: Rapid NAAT: The [...] management decisions. Fact sheet for Healthcare Providers: https://www.fda.gov/media/915180/download Fact sheet for Patients: https://www.fda.gov/media/994162/download Methodology: Isothermal Nucleic Acid Amplification Specimen Description .NASOPHARYNGEAL SWAB [facility] Phone: [facility] Phone: CT HEAD WO CONTRASTOrdered B y: Manuel Conner on 12-17-2020 No acute intracrania l abnormality. 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 Minimal parenchymal volume loss. Minimal chronic microvascular disease. [facility] Phone: EXAMINATION: CT OF T HE HEAD [...] of the visualized skull or soft tissues. [facility] Phone: Roger, pn Incoming R adiant Results From [employer] - 12/17/2020 9:36 AM EDT EXAMINATION: CT [...] parenchymal volume loss. Minimal chronic microvascular disease. [facility] Phone: [facility] Phone: Comprehensive Metabolic Pane l w/ Reflex to MGOrdered By: Manuel Conner on 12-17-2020 Albumin [Mass/Vol] 4 g/dL 3.5 - 5.2 g/dL [facility] Phone: Albumin/Globulin [Mass ratio] 1.3 {ratio} [facility] Phone: ALP (Bld) [Catalytic activity/Vol] 66 U/L 40 - 129 U/L [facility] Phone: ALT [Catalytic activity/Vol] 12 U/L 5 - 41 U/L [facility] Phone: Anion gap [Moles/Vol] 19 mmol/L High 9 - 17 mmol/L [facility] Phone: AST [Catalytic activity/Vol] 18 U/L <40 [facility] Phone: Bilirubin [Mass/Vol] 0.16 mg/dL Low 0.3 - 1 .2 mg/dL [facility] Phone: Calcium [Mass/Vol] 8.8 mg/dL 8.6 - 10. 4 mg/dL [facility] Phone: Chloride [Moles/Vol] 102 mmol/L 98 - 10 7 mmol/L [facility] Phone: CO2 [Moles/Vol] 19 mmol/L Low 20 - 31 mmol/L [facility] Phone: Creatinine [Mass/Vol] 6.59 mg/dL Critically high 0.7 0 - 1.20 mg/dL [facility] Phone: Free PSA/Total PSA [Mass fraction] 7.0 g/dL 6.4 - 8.3 g/dL [facility] Phone: GFR 10 mL/min Low >60 [email or web address] Work Phone: GFR Non- 8 mL/min Low >60 [facility] Phone: Glucose [Mass/Vol] 197 mg/dL High 70 - 99 mg/dL [facility] Phone: Potassium [Moles/Vol] 4.6 mmol/L 3.7 - 5.3 mmol/L [facility] Phone: Sodium [Moles/Vol] 140 mmol/L 135 - 144 mmol/L [facility] Phone: Urea nitrogen (BldV) [Mass/Vol] 96 mg/dL Critically high 8 - 23 mg/dL [facility] Phone: Urea nitrogen/Creatinine (Bld) [Mass ratio] 15 [facility] Phone: EKG 12 LeadOrdered By: Kathy Conner on 12-17-2020 Atrial Rate 85 BPM [facility] Phone: P [place] -15 degrees [facility] Phone: P-R Interval 224 ms [facility] Phone: Q-T Interval 414 ms [facility] Phone: QRS Duration 120 ms [facility] Phone: QTc Calculation (Bazett) 492 ms [facility] Phone: R [place] 99 degrees [facility] Phone: T [place] 44 degrees [facility] Phone: Ventricular Rate 85 BPM [facility] Phone: Sinus rhythm with 1s t degree A-V block Rightward axis Septal infarct , age undetermined Abnormal ECG No previous ECGs available Confirmed by JARON BERNARD ([id number]) on 12/17/2020 11:51:30 PM [facility] Phone: Roger, Mhpn Incoming E kg Results From official[employer] - 12/17/2020 11:51 PM EDT Sinus rhythm with 1st degree A-V block Rightward axis Septal infarct , age undetermined Abnormal ECG No previous ECGs available Confirmed by JARON BERNARD ([id number]) on 12/17/2020 11:51:30 PM [facility] Phone: [facility] Phone: Immature Platelet FractionOr dered By: Manuel Conner on 12-17-2020 Interpretation and review of laboratory results Abnormal [facility] Phone: Platelet, Fluorescence 110 Low [facility] [employer] Phone: Platelet, Immature Fraction 4.6 % 1.1 - 10.3 % [facility] Phone: [facility] Phone: Laboratory - Chemistry and C hemistry - challengeOrdered By: Manuel Conner on 12-17-2020 GFR/1.73 sq M.predicted MDRD (S/P/Bld) [Vol rate/Area] [facility] Phone: Comment on above: Average GFR for 70 o r more years old: 75 mL/min/1.73sq m Chronic Kidney Disease: <60 mL/min/1.73sq m Kidney failure: <15 mL/min/1.73sq m eGFR calculated using average adult body mass. Additional eGFR calculator available at: http://www.[employer]Scapes.[employer] Big[employer]ies/multiple_crcl_2012.htm Stage 1: Some kidney damage normal GFR Stage 2: Mild kidney damage GFR 60-89 Stage 3: Moderate kidney damage GFR 30-59 Stage 4: Severe kidney damage GFR 15-29 Stage 5: Severe kidney damage GFR <15 ESRD - chronic treatment by dialysis or transplant Lactic AcidOrdered By: Kathy Conner on 12-17-2020 Lactate [Moles/Vol] 1.3 mmol/L 0.5 - 2. 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 Flow artifact in the proximal M1 segments of the bilateral MCAs and intracranial right ICA. The bilateral intracranial vertebral arteries are not imaged. [facility] Phone: EXAMINATION: MRA OF THE HEAD WITHOUT CONTRAST 12/17/2020 1:32 pm TECHNIQUE: MRA of the head was performed utilizing [id number] imaging with MIP images. No intravenous contrast [...] cerebral arteries. No evidence of intracranial aneurysm. [facility] Phone: Roger, Mhpn Incoming R adiant Results From [employer] - 12/17/2020 2:02 PM EDT EXAMINATION: MRA OF THE HEAD WITHOUT CONTRAST 12/17/2020 1:32 pm TECHNIQUE: MRA of the head was performed utilizing yqbs-[id number] imaging with MIP images. No intravenous contrast [...] bilateral intracranial vertebral arteries are not imaged. [facility] Phone: [facility] Phone: MRI BRAIN WO CONTRASTOrdered By: Manuel Conner on 12-17-2020 Addendum by Cristhian Hardin MD on 12/17/2020 2:02 PM ADDENDUM: Absence of normal flow void in left vertebral artery, likely related to severe stenosis versus occlusion. [facility] Phone: No acute intracrania l abnormality. 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 Mild parenchymal volume loss. Mild chronic microvascular disease. 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 [facility] Phone: EXAMINATION: MRI OF THE BRAIN WITHOUT [...] The soft tissues demonstrate no acute abnormality. [facility] Phone: Roger, [facility] Incoming R adiant Results From [employer] - 12/17/2020 1:55 PM EDT EXAMINATION: MRI [...] internal carotid artery, likely related to occlusion. [facility] Work Phone: [facility] Work Phone: Microscopic UrinalysisOrdere d By: Manuel Conner on 12-17-2020 - [facility] Work Phone: Amorphous, UA NOT REPORTED None [facility] Work Phone: Bacteria, UA NOT REPORTED None [facility] Work Phone: Casts UA NOT REPORTED /LPF [facility] Phone: Crystals, UA NOT REPORTED None /HPF [facility] Work Phone: Epithelial Cells UA 0 TO 2 [employer] Work Phone: Mucus, UA NOT REPORTED None [facility] Work Phone: Other Observations UA NOT REPORTED NOT REQ. [facility] Work Phone: RBC, UA 2 TO 5 [employer] Work Phone: Renal Epithelial, UA NOT REPORTED 0 /HPF [employer] Work Phone: Trichomonas, UA NOT REPORTED None [facility] Work Phone: WBC, UA 0 TO 2 [facility] Phone: Yeast, UA NOT REPORTED None [facility] Work Phone: [facility] Phone: No Panel InformationOrdered By: Manuel Conner on 12-17-2020 Interpretation and review of laboratory results Abnormal [employer] Work Phone: [employer] Work Phone: Interpretation and review of laboratory results Abnormal [employer] Work Phone: [employer] Work Phone: Protime-INROrdered By: Kathy Conner on 12-17-2020 INR Coag (Bld) [Relative time] 1.1 {INR} [facility] Phone: Comment on above: Non-therapeutic Range: INR = 0.9-1.2 Therapeutic Range: Moderate Anticoagulant Intensity: INR = 2.0-3.0 High Anticoagulant Intensity: INR = 2.5-3.5 PT Coag (PPP) [Time] 13.7 s [employer] Phone: [facility] Phone: TroponinOrdered By: Manuel Conner on 12-17-2020 Interpretation and review of laboratory results Abnormal [facility] Phone: Troponin Interp NOT REPORTED [facility] Phone: Troponin T NOT REPORTED <0.03 ng/mL [facility] Phone: Troponin, High Sensitivity 79 ng/L Critically high 0 - 22 ng/L [facility] Phone: Comment on above: High Sensitivity Troponin values cannot be compared with other Troponin methodologies. Patients with high levels of Biotin oral intake (i.e >5mg/day) may have falsely decreased Troponin levels. Samples collected within 8 hours of biotin intake may require additional information for diagnosis. [facility] Phone: Troponin Interp NOT REPORTED [facility] Phone: Troponin T NOT REPORTED <0.03 ng/mL [facility] Phone: Troponin, High Sensitivity 85 ng/L Critically high 0 - 22 ng/L [facility] Phone: Comment on above: High Sensitivity Troponin values cannot be compared with other Troponin methodologies. Patients with high levels of Biotin oral intake (i.e >5mg/day) may have falsely decreased Troponin levels. Samples collected within 8 hours of biotin intake may require additional information for diagnosis. Urinalysis, reflex to micros copicOrdered By: Manuel Conner on 12-17-2020 Bilirubin Urine Negative NEGATIVE [employer] Work Phone: Color, UA Yellow Yellow [facility] Work Phone: Glucose, Ur Negative NEGATIVE [facility] Work Phone: Interpretation and review of laboratory results Abnormal [employer] Work Phone: Ketones Ql (U) Negative NEGATIVE [employer] Work Phone: Leukocyte esterase Test strip Ql (U) Negative NEGATIVE [employer] Work Phone: Nitrite, Urine Negative NEGATIVE [employer] Work Phone: pH, UA 5.5 [employer] Work Phone: Protein, UA TRACE Abnormal NEGATIVE [facility] Phone: Specific [place], UA 1.025 High [email or web address] Work Phone: Turbidity UA Clear Clear [employer] Work Phone: Urinalysis Comments NOT REPORTED [facility] [employer] Work Phone: Urine Hgb TRACE Abnormal NEGATIVE [facility] Phone: Urobilinogen, Urine Normal Normal [facility] Phone: [employer] Work Phone: XR CHEST PORTABLEOrdered By: Manuel Conner on 12-17-2020 Mild streaky bibasil ar atelectasis with possible small bilateral pleural effusions [facility] Phone: EXAMINATION: ONE XRA Y VIEW OF THE CHEST 12/17/2020 9:30 am COMPARISON: None. HISTORY: ORDERING SYSTEM PROVIDED HISTORY: Congestion TECHNOLOGIST PROVIDED HISTORY: Congestion FINDINGS: Median sternotomy. Normal cardiopericardial silhouette Low volume lungs. Mild streaky bibasilar densities, possible possible small bilateral pleural effusions. Clear upper lungs Degenerative changes of the thoracic spine/shoulders [facility] Phone: Roger, Mhpn Incoming R adiant Results From [facility]MS [employer]/Pacs - 12/17/2020 9:46 AM EDT EXAMINATION: ONE [...] atelectasis with possible small bilateral pleural effusions [facility] Phone: [facility] Phone: Vital Signs Date Time Vital Sign Value Performing Clinician Facility 07-03-2021 15:01-0400 Body temperature 99.32 [degF] Michael Carballo Other Phone: [facility] 07-03-2021 15:01-0400 Diastolic blood pressure 66 mm[Hg] Michael Carballo Other Phone: [facility] 07-03-2021 15:01-0400 Heart rate 80 /min Michael Carballo Other Phone: [facility] 07-03-2021 15:01-0400 Respiratory rate 22 /min Michael Carballo Other Phone: [facility] 07-03-2021 15:01-0400 SaO2% (BldA) [Mass fraction] 97 % Michael Carballo Other Phone: [facility] 07-03-2021 15:01-0400 Systolic blood pressure 127 mm[Hg] Michael Carballo Other Phone: [facility] 07-03-2021 06:30-0400 Body weight 100.5 kg Michael Carballo Other Phone: [facility] 06-27-2021 13:00-0400 Diastolic blood pressure 69 mm[Hg] MD Michael Carballo Work Phone: [facility] 06-27-2021 13:00-0400 Heart rate 87 /min MD Michael Carballo Work Phone: [facility] 06-27-2021 13:00-0400 Respiratory rate 17 /min MD Michael Carballo Work Phone: [facility] 06-27-2021 13:00-0400 SaO2% (BldA) [Mass fraction] 94 % MD Michael Carballo Work Phone: [facility] 06-27-2021 13:00-0400 Systolic blood pressure 153 mm[Hg] MD Michael Carballo Work Phone: [facility] 06-27-2021 08:00-0400 Body temperature 97.9 [degF] MD Michael Carballo Work Phone: [facility] 06-27-2021 05:44-0400 Body weight 106.5 kg MD Michael Carballo Work Phone: [facility] 06-26-2021 14:12-0400 Body height 182.88 cm MD Michael Carballo Work Phone: [facility] 06-26-2021 00:24-0400 Body height 182.88 cm MD Michael Carballo Work Phone: [facility] 06-26-2021 00:24-0400 Body mass index (BMI) [Ratio] 32.8 kg/m2 MD Michael Carballo Work Phone: [facility] 06-26-2021 00:24-0400 Body temperature 97.7 [degF] MD Michael Carballo Work Phone: [facility] 06-26-2021 00:24-0400 Body weight 109.9 kg MD Michael Carballo Work Phone: [facility] 06-26-2021 00:24-0400 Diastolic blood pressure 100 mm[Hg] MD Michael Carballo Work Phone: [facility] 06-26-2021 00:24-0400 Heart rate 88 /min MD Michael Carballo Work Phone: [facility] 06-26-2021 00:24-0400 Respiratory rate 18 /min MD Michael Carballo Work Phone: [facility] 06-26-2021 00:24-0400 SaO2% (BldA) [Mass fraction] 96 % MD Michael Carballo Work Phone: [facility] 06-26-2021 00:24-0400 Systolic blood pressure 221 mm[Hg] MD Michael Carballo Work Phone: [facility] 12-19-2020 20:01-0400 Diastolic blood pressure 64 mm[Hg] Manuel Conner MD Work Phone: [facility] Work Phone: 12-19-2020 20:01-0400 Systolic blood pressure 182 mm[Hg] Manuel Conner MD Work Phone: [employer] Work Phone: 12-19-2020 19:00-0400 Heart rate 75 /min Manuel Conner MD Work Phone: [facility] Work Phone: 12-19-2020 19:00-0400 Respiratory rate 23 /min Manuel Conner MD Work Phone: [facility] Work Phone: 12-19-2020 19:00-0400 SaO2% (BldA) [Mass fraction] 94 % Manuel Conner MD Work Phone: [facility] Work Phone: 12-18-2020 06:30-0400 Body temperature 98.29 [degF] Manuel Conner MD Work Phone: [employer] Work Phone: Encounters Encounter Date Encounter Type Care Provider Facility Start: 09-28-2022 AUDIT Michael Carballo Work Phone: YV-Gemtvdrlsa-Rxveavwp SJW 260 DO Work Phone: Start: 07-24-2022 End: 07-24-[address] MICHAEL CARBALLO . Facility: Start: 07-15-2022 End: 07-15-[address] MICHAEL CARBALLO . Facility: Start: 07-13-2022 Patient encounter procedure Michael Carballo Work Phone: [place]-Ctngxbelxg-RLB [place] [address] Work Phone: Start: 07-13-2022 Phys/qhp telephone evaluation 11-20 min Michael Carballo Work Phone: QJ-Ojjtbxdbwu-FIH [place] [address] Work Phone: Start: 07-13-2022 ambulatory MD SCOUT ROMO Facility:[facility] Start: 07-13-2022 End: 07-13-[address] MICHAEL CARBALLO . Facility: Start: 07-09-2022 AUDIT Michael Carballo Work Phone: PZ-Udvfimdmve-HNY [place] [address] Work Phone: Start: 06-08-2022 ambulatory Facility: [facility] Start: 06-05-2022 End: 06-05-[address] MICHAEL CARBALLO . Facility: Start: 06-04-2022 End: 06-04-[address] MICHAEL CARBALLO . Facility: Start: 04-14-2022 End: 04-15-2022 ambulatory DONNA Morfin [facility] Start: 04-14-2022 End: 04-14-2022 Subsequent hospital visit by physician Michael Carballo Work Phone: [facility] Start: 10-30-2021 End: 10-31-2021 ambulatory Manfred Wilson Facility:[facility] Start: 10-28-2021 End: 10-28-[address] MICHAEL CARBALLO . Facility: Start: 10-15-2021 Patient encounter procedure Michael Carballo Work Phone: EQ-Njkdgekxez-HJX [facility] [address] [place] Work Phone: Start: 10-15-2021 ambulatory DO FELICIA ASTORGA Facility:[facility] Start: 08-05-2021 End: 08-06-[address] MICHAEL CARBALLO . Facility: Start: 07-16-2021 Office outpatient vi sit 25 minutes Michael Carballo Work Phone: PG-Jlmlnqipfg-TCJ [facility] [place] Work Phone: Start: 07-16-2021 Patient encounter procedure Michael Carballo Work Phone: KJ-Vcyantjsqv-YLV [facility] [address] [place] Work Phone: Start: 06-27-2021 End: 07-03-2021 [id number] Start: 06-25-2021 End: 06-27-2021 Evaluation and management of inpatient MD Michael Carballo Work Phone: [facility] [place] [facility] Start: 06-25-2021 Patient encounter procedure Michael Carballo Work Phone: JN-Akbzvmoizg-OJM [facility] [address] [place] Work Phone: Start: 06-24-2021 End: 06-24-2021 Patient encounter procedure MD Michael Carballo Work Phone: [facility] Start: 05-28-2021 AUDIT Michael Carballo Work Phone: [facility]Icdxbygbtx-[facility] [address] [place] Work Phone: Start: 05-27-2021 End: 05-27-2021 Patient encounter procedure MD Michael Carballo Work Phone: [facility] Start: 01-01-2021 Patient encounter procedure Michael Carballo Work Phone: MV-Agpitihvgp-HJM [facility] [address] [place] Work Phone: Start: 01-01-2021 WANG, Provider : Rizwan,Felicia, Status: Pen, Time: 2:20 PM Michael Carballo Work Phone: ZL-Epvnktvfcu-Gttshsph S[place] 260 DO Work Phone: Start: 12-31-2020 AUDIT Michael Carballo Work Phone: MX-Crutndntax-Exsjczhr SJ 260 DO Work Phone: Start: 12-17-2020 End: 12-19-2020 Emergency department patient visit Manuel Conner MD Work Phone: [facility] ED Comment on above: [place] Shade coma scale t otal score 13-15, at hospital admission (Primary Dx); Acute kidney injury (HCC); Heart replaced by transplant (HCC); Confusion Start: 11-21-2020 AUDIT Michael Carballo Work Phone: XK-Reanhojcku-TSC Heather Desaikenya [address] [place] Work Phone: Start: 10-31-2020 AUDIT Michael Carballo Work Phone: [facility] Work Phone: Procedures Date Procedure [...] heart recipient Heart repla vaibhav by transplant ([facility]) Manuel Conner MD Work Phone: H/O: [...] Montse Villanueva, Status: Pen, Time: 2:00 PM YX-Gtvtvjddih-NKI [place] 1800 Work Phone: Start: 07-13-2022 AWNG, Provider : Scout Romo, Status: Pen, Time: 1:40 PM VIRFUCORI, Provider: Scout Romo, Status: Pen, Time: 1:40 PM XP-Zjvgliianh-NTB [place] 1800 Work Phone: Start: 04-01-2022 WANG, Provider : Felicia Astorga, Status: Pen, Time: 1:00 PM WANG, Provider: Felicia Astorga, Status: Pen, Time: 1:00 PM SZ-Talwjlnllz-LUC [facility] [place] Work Phone: Start: 12-19-2021 Creatinine measurement Creatinine [facility] Work Phone: Start: 12-19-2021 Potassium monitoring Potassium monit nyla [employer] Phone: Start: 10-20-2021 Influenza vaccination Flu vaccine (# 1) LEONID [facility] Start: 07-16-2021 Patient encounter procedure [facility] Start: 07-03-2021 End: 07-04-2022 Insulin Glargine (Lantus) Injectable Subcutaneous Once ; DOSE = 12 unit(s) SubCutaneous At BedtimeNotes from Pharmacy: [facility] Start: 03-Jul-2021 End: 03-Jul-2022 Ordered: 03-Jul-2021 Magy Galeas Intent [facility] Start: 07-01-2021 End: 07-02-2022 [facility] Comment on above: IF patient [...] End: 30-Jun-2022 Ordered: 30-Jun-2021 Jihan Storm Intent [facility] Start: 06-27-2021 End: 06-28-2022 Sodium Chloride 0.9% Injectable Flush Peripheral Line ; via Peripheral LineVolume = 10 mL IntraVenous Flush Every 8 Hours and as Needed Start: 27-Jun-2021 End: 27-Jun-2022 Ordered: 26-Jun-2021 Magy Galeas Intent [facility] Start: 06-26-2021 Duplex scan of upper limb arteries US arterial duplex UE RT [facility] Start: 12-17-2020 Annual Wellness Visi t (AWV) Annual Wellness Visit (AWV) [employer] Start: 11-20-2020 Influenza vaccination Flu vaccine (# 1) [employer] Work Phone: Start: 07-16-2020 COVID-19 Vaccine (3 - Pfizer risk 3-dose series) COVID-19 Vaccine (3 - Pfizer risk 3-dose series) [employer] Work Phone: Start: 07-16-2020 COVID-19 Vaccine (3 - Pfizer risk series) COVID-19 Vaccine (3 - Pfizer risk series) [employer] Start: 10-01-2016 Pneumococcal 65+ yrs at Risk Vaccine (2 of 2 - PCV13) Pneumococcal 65+ yrs at Risk Vaccine (2 of 2 - PCV13) [employer] Phone: Start: 10-10-1993 Shingles Vaccine (1 of 2) Shingles Vaccine (1 of 2) [employer] Work Phone: Start: 10-10-1962 DTaP/Tdap/Td vaccine (1 - Tdap) DTaP/Tdap/Td vaccine (1 - Tdap) [employer] Start: 10-10-1962 Shingles vaccine (1 of 2) Shingles vaccine (1 of 2) [employer] Start: 10-10-1961 Hepatitis C screening Hepatitis C sc reen [facility] [employer] Start: 1955 Depression Screen [facility] Start: 10-10-1953 Lipid panel [facility] Start: 1945 Hepatitis C screening Hepatitis C sc reen [facility] Work Phone: Calcium [Mass/volume ] in Serum or Plasma [facility] Work Phone: Carbon dioxide, tota l [Moles/volume] in Serum or Plasma [facility] Work Phone: Chloride [Moles/volu me] in Serum or Plasma [facility] Work Phone: Creatinine and Glomerular filtration rate.predicted panel - Serum, Plasma or Blood [facility] Work Phone: Culture, Blood [facility] Work Phone: Culture, Wound Culture, Wound Microbiology Routine 04/14/2022 3:25 PM EST [facility] Work Phone: Glucose [Mass/volume ] in Serum or Plasma [facility] Work Phone: Goals of care, counseling/discussion [facility] Measurement of renal function [facility] Work Phone: Potassium [Moles/volume] in Serum or Plasma [facility] Work Phone: Sodium [Moles/volume ] in Serum or Plasma [facility] Work Phone: Tacrolimus [Mass/volume] in Blood [facility] Work Phone: End: 12-18-2020 Tacrolimus Level [facility] Work Phone: Comment on above: One Time for 1 Occur rences starting 12/18/2020 until 12/18/2020 End: 12-19-2020 Tacrolimus Level Tacrolimus Level Lab Routine One Time for 1 Occurrences starting 12/19/2020 until 12/19/2020 [employer] Work Phone: Comment on above: One Time for 1 Occur rences starting 12/19/2020 until 12/19/2020 Tacrolimus Level [facility] Work Phone: Urea nitrogen [Mass/volume] in Serum or Plasma [facility] Work Phone: Immunizations Immunization Date Immunization Notes Care Provider Haven de leon 03-21-2021 Pfizer-BioNTech COVI D-19 Vacc 30 MCG/0.3ML Intramuscular Suspension Michael Carballo Work Phone: RQ-Qhstbqtzgr-YAP Heather [facility]lec[facility] [address] [place] Work Phone: 06-18-2020 Pfizer-BioNTech COVI D-19 Vacc 30 MCG/0.3ML Intramuscular Suspension Michael Candelario Carballo Work Phone: [facility] Work Phone: 05-27-2020 Pfizer-BioNTech COVI D-19 Vacc 30 MCG/0.3ML Intramuscular Suspension Michael E Carballo Work Phone: [facility] Work Phone: 12-29-2019 Seasonal trivalent influenza vaccine, adjuvanted, preservative free Michael Palomino Carballo Work Phone: [facility] Work Phone: 12-22-2017 Seasonal trivalent influenza vaccine, adjuvanted, preservative free Michael Palomino Carballo Work Phone: [facility] Work Phone: 12-28-2016 Seasonal trivalent influenza vaccine, adjuvanted, preservative free Michael Palomino Carballo Work Phone: [facility] Work Phone: 12-24-2015 influenza, high dose seasonal, preservative-free Michael Palomino Carballo Work Phone: [facility] Work Phone: 10-02-2015 influenza, seasonal, injectable Michael Palomino Carballo Work Phone: [facility] Work Phone: 10-02-2015 pneumococcal polysaccharide vaccine, 23 valent Michael Palomino Carballo Work Phone: [facility] Work Phone: 01-09-2015 influenza, injectabl e, quadrivalent, contains preservative Michael Palomino Carballo Work Phone: [facility] Work Phone: 01-03-2013 influenza, seasonal, injectable Michael Palomino Carballo Work Phone: [facility] Work Phone: 01-07-2009 influenza virus vacc ine, whole virus Michael Christianight Work Phone: [facility] Work Phone: 01-20-2005 influenza virus vacc ine, whole virus Michael Palomino Carballo Work Phone: [facility] Work Phone: Payers Date Payer Category Payer Self-pay [id number] 1961 Medicaid [id number] 1961 Medicare [id number] 1961 Medicare [id number] 1959 Private Health Insurance [id number] 1945 Unknown [id number] 2.16.8 [id number] 1943 Unknown [id number] 2.16.84 [id number] 1943 Unknown [id number] 2.16.84 [id number] 1943 Unknown [id number] 2.16.84 [id number] 1943 Unknown [id number] 2.16.84 [id number] 1943 Unknown [id number] 2.16.84 [id number] 1943 Unknown [id number] 2.16.84 [id number] 1943 Unknown [id number] 2.16.84 [id number] 1943 Unknown [id number] 2.16. [id number] 1943 Unknown [id number] 2.16. [id number] Unknown Unknown [id number] 2.16.8 [id number] Social History Date Type Detail Facility Former smoker Former smoker [employer] Work Phone: Start: 12-17-2020 Tobacco smoking stat us MNIS Unknown if ever smoked [employer] Work Phone: Start: 1945 Sex Assigned At Not on file [employer] Work Phone: Exposure to SARS-CoV -2 (event) Unable to assess [employer] Start: 12-13-2020 Tobacco smoking [facility] Never [facility] (finding) [facility] Start: 1945 Sex Assigned At Male F [facility] Start: 06-26-2021 End: 06-26-2021 Tobacco smoking status NHIS Ex-smoker (finding) [facility] End: 03-22-1996 History of tobacco use [facility] Work Phone: Goals Date Patient Goal Desired Activity /State Functional Status Date Assessment Result Facility 06-27-2021 Functional status Patient at Baseline [facility] Work Phone: Functional observable [facility] [place] Mental Status Date Assessment Result Facility 06-30-2021 Cognitive functi ons [id number] [facility] 06-27-2021 Cognitive function Cognitive Sta tus Patient at Baseline [facility] Work Phone: Clinical Notes 07-05-2000 to 07-03-2021 <item><item><item><item><item><item><item><item><item> Note Date & Type Note Facility 07-03-2021 Hospital Discharge instructions Activity:activity with assistance. May shower.Labs 1 (Modify Template):Lab Test(s): Basic Metabolic Panel, CBC, Tacrolimus levelDate To Be Drawn: 07/07/2021all Results To: Dr. Felicia Moore Results To: [id number] Orders:Blood Glucose Monitoring: ACHSAdditional Instructions: Use of [...] to Schedule in: 2 weeks[facility] Follow Up Appointment 2:Physician/Dept/Service: Dr. Felicia Astorga / Heart failure and transplantReason for Referral: hospital follow-upLocation[facility] [address]Comments: Our office will call you to set up an appointment either in person or virtually. [facility] 06-27-2021 Discharge summary Note Date/Time June 27, 2021 10:32am [facility] [address] [place] [address] Discharge Summary Signed Patient: Oliverio Escobedo MR#: [id number] : 1945 Acct:[id number] Age/Sex: 75 / M Adm Date: 2 Loc: Room: [address] [place] [address]: Yoshi Hernandez MD Copies to: MD Justa OlveraCRITICAL ACCESS HOSPITALSHELLY Howard Providers Date of Discharge: 06/27/21 Discharging [...] 1 tab PO BID RF: 0 omega 3-hbl-yba-fish oil [Fish Oil] 1,000 mg (120 mg-180 [...] signed by Yoshi Hernandez MD> 06/27/21 1032 [facility] Work Phone: 1(314) 430-212704-08-2022 Progress note Author Bonilla Ortiz [facility] June 27, 2021 10:27am Note Date/Time June 27, 2021 10:2 7am [facility] [address] [place] [address] Cardiology Progress Note Signed Patient: Oliverio Escobedo MR#: [id number] : 1945 Acct:[id number] Age/Sex: 75 / M Adm Date: 2 Loc: 3T Room: [address] [place] [address] Type : ADM INOo Attending Dr: Yoshi Hernandez MD Copies to: ~ Date of Service: 06/27/2021 Subjective Principal diagnosis: Edema w history of orthotopic heart transplant Interval history: Mr. Escobedo is a 75 year old male with known history of orthotopic heart transplantation in 2000 done at [facility] who was admitted to the inpatient hospitalist service last night after presenting from the [facility] with complaints of increasing swelling in [...] Agree with transfer to transplant service at [facility] for further management. Plan Thank you very much for this kind consultation and for allowing me to participate in the care of this very pleasant patient. Time spent with patient Time Spent With Patient (min): 20 Documented By: Bonilla Ortiz MD 06/27/21 1024 Signed By: <Electronically signed by Bonilla Ortiz MD> 06/27/21 1027 [facility] Work Phone: 1(959) 661-358404-07-2022 Progress note Author Yoshi Wu [facility] June 26, 2021 6:27pm Note Date/Time June 26, 2021 6:27 pm [facility] [address] [place] [address] Hospitalist Progress Note Signed Patient: Oliverio Escobedo MR#: [id number] : 1945 Acct:[id number] Age/Sex: 75 / M Adm Date: 2 Loc: Room: [address] [place] [address] Type : ADM INOo Attending Dr: Yoshi [...] Oil 1,000 mg 06/26/21 09:00 06/26/21 09:01 [place]-3/Fish Oil 1,000 Mg Capsule PO 06/26/22 08:59 [...] <Electronically signed by Yoshi Hernandez MD> 06/26/21 890 [facility] Work Phone: 1(247) 299-121604-07-2022 Consult note Author Bonilla Ortiz [facility] June 26, 2021 2:26pm Note Date/Time June 26, 2021 2:23 pm [facility] [address] [place] [address] Cardiology Consult Note Signed Patient: Oliverio Escobedo MR#: [id number] : 1945 Acct:[id number] Age/Sex: 75 / M Adm Date: 2 Loc: Room: [address] [place] [address] Type : ADM INOo Attending Dr: Yoshi Hernandez MD Copies to: MD Manfred Olvera([facility]) DO Bonilla Wilson MD~ Cardiology HPI History of Present Illness Consult Date: 06/26/21 Reason for Consult: Bilateral lower extremity swelling Remote history of orthotopic heart transplantation HPI: Mr. Escobedo is a 75 year old male with known history of orthotopic heart transplantation in 2000 done at [facility] who was admitted to the inpatient hospitalist service last night after presenting from the [facility] with complaints of increasing swelling in [...] the results were sent to his transplant major account representative in [place]. She doesnot know the results. On my evaluation the patient was undergoing bedside transthoracic echocardiography. Preliminary interpretation of the study shows normal resting left ventricular regional wall motion and systolic function. Ejection fraction appears greater than 55%. There is no notable pericardial or pleural effusion. There is no notable/significant valvular heart disease noted. By report the patient's transplant service at [facility] has been contacted and is requested [...] PO BID 02/02/17 [History Confirmed 06/25/21] omega 7-won-onv-fish oil 1,000 mg (120 mg-180 mg) capsule [...] x10E3/uL Lymph # (Auto) 1.0 (1.00-4.8) x10E3/uL [place] # (Auto) 0.5 (0.0-0.8) x10E3/uL Eos # [...] Agree with transfer to transplant service at [facility] for further management. Code(s): Z94.1 - Heart transplant status Plan Thank you very much for this kind consultation and for allowing me to participate in the care of this very pleasant patient. Documented By: Bonilla Ortiz MD 06/26/21 1415 Signed By: <Electronically signed by Bonilla Ortiz MD> 06/26/21 1426 [facility] Work Phone: 1(859) 349-755504-07-2022 History and physical note Author Omid Myrick [facility] June 26, 2021 7:44am Note Date/Time June 26, 2021 12:1 6am [facility] [address] [place] [address] Hospitalist H&P Signed Patient: Oliverio Escobedo MR#: [id number] : 1945 Acct:[id number] Age/Sex: 75 / M Adm Date: 2 Loc: 3T Room: [address] [place] [address] Type : ADM INOo Attending Dr: Yoshi Hernandez MD Copies to: MD Manfred Olvera([facility]) DO Audra Wilson APRN Marwan Wassouf, MD~ [...] [facility] but were unable. Patient is hard of [...] PO BID 02/02/17 [History Confirmed 06/25/21] omega 9-vyo-jgy-fish oil 1,000 mg (120 mg-180 mg) capsule [...] Lymph % (Auto) 12.9 % (.) 06/25/21: [place] % (Auto) 7.3 % (.) 06/25/21: Eos % (Auto) 4.6 % (.) 06/25/21: Baso % (Auto) 0.6 % (.) 06/25/21: Neut # (Auto) 5.6 x10E3/uL (1.8-7.7) 06/25/21: Lymph # (Auto) 1.0 x10E3/uL (1.00-4.8) 06/25/21: [place] # (Auto) 0.5 x10E3/uL (0.0-0.8) 06/25/21: Eos [...] MD Documented By: Audra Quinteros APRN 06/25/21 8610 Signed By: <Electronically signed by GABBIE Quinteros> 06/26/21 0057 <Electronically signed by Omid Myrick MD> 06/26/21 9444 [facility] Work Phone: 1(964) 847-574409-30-2021 Evaluation note* Diagnosis Evening Shade coma scale total score 13-15, at hospital admission- Primary Acute kidney injury (HCC) Acute kidney failure, unspecified Heart replaced by transplant (HCC) Heart replaced by transplant Confusion Unspecified psychosis documented in this encounter [facility] Work Phone: 1(565) 241-737209-30-2021 History of Present illness Narrative* 74 yo [...] trazodone, trazodone and aripirazole. Discharged back to [facility] with 2x/week home trips. * Immunosuppression: MMF 250 mg BID, tacrolimus 1.5 mg BID (FK 5.4 on 12/24/20, goal 5-8) * Rejection Hx/DSAs: None documented * Last echo: 12/20/20 LD-Euicqlcprw-WKA Heather [facility] [address] [place] Work Phone: 1(129) 768-637209-28-2021 History of Present illness Narrative* Liliya Baker RN - 12/17/2020 10:31 AM EDT Spoke with nurse from [facility] at this time. They will fax lab work to us from [facility]. documented in this [facility] Work Phone: 1(751) 548-503404-16-2001 History of Present illness Narrative* Mr. Escobedo [...] September 2021. He continues to live in retirement. He has started Zoloft for depression. 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 Needs assistance with transfers. He has not had any new doctors appointmetns. * Immunosuppression: MMF 250 mg BID, tacrolimus 1 mg BID (FK 11.0 on 10/10/21, goal 5-8) * Rejection Hx/DSAs: None documented * Last echo: 12/20/20 PL-Jhmjazathc-CDF Heather [address] Work Phone: Chief complaint Narrative [...] 04:20 PM , for a telehealth visit. ZQ-Smbhdwrdjq-SJP [facility] [address] [place] Work Phone: Evaluation noteNo assessment information available [facility] Work Phone: Evaluation note* Diagnosis Onset Date Resolution Status Acute kidney injury acute Bilateral edema of lower extremity acute Shortness of breath acute [facility] Work Phone: Evaluation note* Diagnosis Onset Date Resolution Status Acute kidney injury acute Bilateral edema of lower extremity acute History of heart transplant acute Shortness of breath acute [facility] Work Phone: Evaluation note* Psychological: Appropriate [...] distress, alert and cooperative, hard of hearing [facility] N[facility]ative* Mr. [...] trazodone, trazodone and aripirazole. Discharged back to [facility] with 2x/week home trips. * Immunosuppression: MMF 250 mg BID, tacrolimus 1.5 mg BID (FK 5.4 on 12/24/20, goal 5-8) * Rejection Hx/DSAs: None documented * Last echo: 12/20/20 RC-Phvbtaalur-CER [employer] [address] [place] Work Phone: History of Present [...] B/L LE edema. Spoke with RN at [facility]; states LE edema has been ongoing for several weeks, with a rash . * Labs drawn 06/24/21; BNP 224 * Immunosuppression: MMF 250 mg BID, tacrolimus 1.5 mg BID (FK 5.4 on 12/24/20, goal 5-8) - FK pendingfrom 06/24/21 from SNF * Rejection Hx/DSAs: None documented * Last echo: 12/20/20 XZ-Dbdqeedaly-AFR [employer] [address] [place] Work Phone: History of Present [...] Hx/DSAs: None documented * Last echo: 12/20/20 YE-Fwanihfkvn-IYO Heather [facility]lec[facility] [address] [place] Work Phone: History [...] Hx/DSAs: None documented * Last echo: 12/20/20 HY-Kdhvzptzlq-LUC Heather [facility] [address] [place] Work Phone: History [...] Hx/DSAs: None documented * Last echo: 12/20/20 TB-Cubxeznuks-QJB Heather [facility] [address] [place] Work Phone: Reason for referral (narrative)* Reason for Referral: HF, DAVID, scabies [facility] Family History No Family History [...] content) Reason Comments Altered Mental Status onset STRIPER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; staff state pt would not respond and stared off into space Hypotension STRIPER staff from [place] rn state BP 70s/ANGELICA [...] is suspension with MINIMUM of SIZE 8 IRISH 1500 (Given - Provider: Sola Dee RN)[id number] [...] Active Yoshi Hernandez MD Attending Provider Active [employer] 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 Relationship Specialty Start Date End Date Michael Carballo [address] [place] [address] PCP - General Specialist 12/17/20 Goals (unrecognized [...] section and content) DATE CREATED AUTHOR 07/14/2021 [facility] DATE CREATED AUTHOR AUTHOR'S ORGANIZ ATION 04/18/2022 [facility] DATE CREATED AUTHOR AUTHOR'S ORGANIZ ATION 07/17/2022 [employer] DATE CREATED AUTHOR AUTHOR'S ORGANIZ ATION 07/31/2022 [facility] DATE CREATED AUTHOR AUTHOR'S ORGANIZ ATION 09/07/2022 [facility] [place] DATE CREATED AUTHOR AUTHOR'S ORGANIZ ATION 09/14/2022 [facility] DATE CREATED AUTHOR AUTHOR'S ORGANIZ ATION 11/21/2022 [facility] FOR RECORDS PERTAINING TO PATIENTS WHO ARE [...] BE BASED ON THE PRIMARY CLINICAL RECORDS. [employer] provides no warranty or guarantee of the accuracy or completeness of information in this document.
== END 2023-04-14 01:08 | disposition home or self-care (01) ==
PROVIDERS: Visit Provider Nurse Practitioner Family
DX: E03.9 Hypothyroidism, unspecified (principal); F91.9 Conduct disorder, unspecified; R82.89 Other abnormal findings on cytological and histological examination of urine
CPT/HCPCS: 81001; 87086; 87150; 87186

== ENCOUNTER 2023-04-14 18:00 | Emergency (ER) | payer MEDICARE, MEDICAID, SELFPAY ==
[2023-04-14] VITALS (28 sets, daily range): BP systolic 119–167; BP diastolic 82–97; PULSE 89–98; RESP 18–142; TEMP 36.9; O2SAT 91–99; BMI 27.1
--- NOTE | 2023-04-14 18:03 | CT_ITS ---
The [address] [address] Patient Name: OLIVERIO RUTLEDGE MRN: [id number] date: 1945 Sex: M Assigned Patient Location: LAB Current Patient Location: Accession/Order Number: [id number] Exam Date: 04/14/2023 18:20 Report Date: 04/14/2023 19:02 At the request of: JOHAN ODONNELL Procedure: CT cervical spine wo con EXAM: CT head/brain wo con, CT cervical spine wo con HISTORY: trauma COMPARISON: CT brain 06/04/2017. TECHNIQUE: Axial CT scans through the head and cervical spine were obtained without IV contrast administration. Dose reduction techniques were achieved by using: automated exposure control and/or adjustment of mA and /or kV according to patient size and/or use of iterative reconstruction technique. CT BRAIN FINDINGS: There is no evidence of acute intracranial hemorrhage or abnormal extra-axial fluid collection. No mass effect or midline shift is seen. There is no evidence of large acute territorial infarction. There is no hydrocephalus. There are stable areas of encephalomalacia with surrounding gliosis in bilateral frontal lobes, likely represent remote infarct. Mild enlarged ventricles and sulci, consistent with age appropriate cerebral atrophy. Patchy areas of low-attenuation are present in supratentorial white matter, likely represents chronic microvascular ischemia. There are atherosclerotic calcifications of anterior and posterior circulations. To the limit of CT, the posterior fossa appears unremarkable. No definite acute fracture is identified. Soft tissues are unremarkable. The visualized orbits show no abnormality. The visualized paranasal sinuses show no air-fluid level. Mastoid air cells are clear. CT/CT cervical spine wo con IMPRESSION: No CT evidence of acute intracranial abnormality. Areas of remote infarct in bilateral frontal lobes. Chronic microvascular ischemia and involutional changes. Vascular calcifications CT CERVICAL SPINE FINDINGS: No acute fracture or posttraumatic malalignment is seen. The dens and lateral masses of C1 are symmetric. There is straightening of the normal cervical lordotic curvature. There is mild retrolisthesis of C6 on C7. Decreased bone mineralization is noted. There is severe narrowing of disc height at C5-6 level with degenerative endplate changes There is disc-osteophyte complex at C5-6 level, resulting in moderate central canal narrowing. There are multilevel neural foraminal narrowing, severe at bilateral C5-6, C6-7; moderate at right C3-4; mild at left C2-3 and left C3-4, secondary to uncovertebral and facet arthropathy The prevertebral soft tissue space appears normal. IMPRESSION: No visualized acute cervical spine abnormality. Multilevel cervical spondylosis, most pronounced at C5-6 level, as described. Electronically authenticated by: LEO ELLER Date: 04/14/2023 19:02
--- NOTE | 2023-04-14 18:03 | XR_ITS ---
The [address] [address] Patient Name: OLIVERIO RUTLEDGE MRN: [id number] date: 1945 Sex: M Assigned Patient Location: LAB Current Patient Location: ED.MAIN Accession/Order Number: [id number] Exam Date: 04/14/2023 18:12 Report Date: 04/14/2023 18:51 At the request of: JOHAN ODONNELL Procedure: XR chest 1V EXAM: XR chest 1V at 1809 hours HISTORY: cp COMPARISON: 07/09/2020 TECHNIQUE: AP semierect portable chest x-ray FINDINGS: Shallow inspiration. The heart is mildly enlarged in this projection without cardiac decompensation. Multiple sternal wire sutures and mediastinal clips are present. No acute infiltrate, effusion or pneumothorax is identified although the left lung base is partially obscured. The osseous structures are grossly intact. XR/XR chest 1V IMPRESSION: The heart appears mildly enlarged in this projection. There is no clear evidence of a focal infiltrate or overt cardiac decompensation. The study is limited by shallow inspiration and projection. A follow-up study encouraging the patient to take a deep inspiration in the fully upright position is recommended. Electronically authenticated by: BRANDT PRUETT Date: 04/14/2023 18:51
--- NOTE | 2023-04-14 18:03 | ECG_ITS ---
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
--- NOTE | 2023-04-14 18:03 | CT_ITS ---
The [address] [address] Patient Name: OLIVERIO RUTLEDGE MRN: [id number] date: 1945 Sex: M Assigned Patient Location: LAB Current Patient Location: Accession/Order Number: [id number] Exam Date: 04/14/2023 18:20 Report Date: 04/14/2023 19:02 At the request of: JOHAN ODONNELL Procedure: CT head/brain wo con EXAM: CT head/brain wo con, CT cervical spine wo con HISTORY: trauma COMPARISON: CT brain 06/04/2017. TECHNIQUE: Axial CT scans through the head and cervical spine were obtained without IV contrast administration. Dose reduction techniques were achieved by using: automated exposure control and/or adjustment of mA and /or kV according to patient size and/or use of iterative reconstruction technique. CT BRAIN FINDINGS: There is no evidence of acute intracranial hemorrhage or abnormal extra-axial fluid collection. No mass effect or midline shift is seen. There is no evidence of large acute territorial infarction. There is no hydrocephalus. There are stable areas of encephalomalacia with surrounding gliosis in bilateral frontal lobes, likely represent remote infarct. Mild enlarged ventricles and sulci, consistent with age appropriate cerebral atrophy. Patchy areas of low-attenuation are present in supratentorial white matter, likely represents chronic microvascular ischemia. There are atherosclerotic calcifications of anterior and posterior circulations. To the limit of CT, the posterior fossa appears unremarkable. No definite acute fracture is identified. Soft tissues are unremarkable. The visualized orbits show no abnormality. The visualized paranasal sinuses show no air-fluid level. Mastoid air cells are clear. CT/CT head/brain wo con IMPRESSION: No CT evidence of acute intracranial abnormality. Areas of remote infarct in bilateral frontal lobes. Chronic microvascular ischemia and involutional changes. Vascular calcifications CT CERVICAL SPINE FINDINGS: No acute fracture or posttraumatic malalignment is seen. The dens and lateral masses of C1 are symmetric. There is straightening of the normal cervical lordotic curvature. There is mild retrolisthesis of C6 on C7. Decreased bone mineralization is noted. There is severe narrowing of disc height at C5-6 level with degenerative endplate changes There is disc-osteophyte complex at C5-6 level, resulting in moderate central canal narrowing. There are multilevel neural foraminal narrowing, severe at bilateral C5-6, C6-7; moderate at right C3-4; mild at left C2-3 and left C3-4, secondary to uncovertebral and facet arthropathy The prevertebral soft tissue space appears normal. IMPRESSION: No visualized acute cervical spine abnormality. Multilevel cervical spondylosis, most pronounced at C5-6 level, as described. Electronically authenticated by: LEO ELLER Date: 04/14/2023 19:02
--- NOTE | 2023-04-14 18:05 | CT_ITS ---
[address] [address] Patient Name: OLIVERIO RUTLEDGE MRN: [id number] date: 1945 Sex: M Assigned Patient Location: ER [facility] Accession/Order Number: [id number] Exam Date: 04/14/2023 18:20 Report Date: 04/14/2023 19:30 At the request of: JOHAN ODONNELL Procedure: CT chest wo con EXAM: CT chest wo con, CT abdomen pelvis wo con INDICATION: Trauma TECHNIQUE: CT chest abdomen and pelvis without contrast. Multiplanar reformats obtained. Dose reduction technique was used including one or more of the following: automated exposure control, adjustment of mA and kV according to patient size, and/or iterative reconstruction. COMPARISON: CT abdomen and pelvis 01/08/2020. FINDINGS: CHEST SUPPORT DEVICES: None seen. CARDIOMEDIASTINAL TRAUMA: No evidence of aortic injury. No pericardial effusion or mediastinal hematoma. PLEUROPULMONARY TRAUMA: No pneumothorax or pulmonary contusion. MUSCULOSKELETAL TRAUMA: No fractures of the ribs or sternum identified. No CT evidence of significant soft tissue injury. OTHER: Cardiomegaly. Median sternotomy wires. Mediastinal clips. ABDOMEN/PELVIS SUPPORT DEVICES: None seen. VISCERAL TRAUMA: No pneumoperitoneum or hemoperitoneum. No evidence of injury to the solid organs, bladder, bowel, or mesentery. MUSCULOSKELETAL TRAUMA: No pelvic fractures or diastasis identified. No CT evidence of significant soft tissue injury. OTHER: Cholelithiasis. Nonobstructive small left renal calcification. Punctate nonobstructive right renal calculus. No hydronephrosis. Adrenal glands unremarkable. Fluid distended cecum and ascending colon. Fluid levels in the large bowel. Edematous wall of the ascending colon. 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 THORACIC SPINE No acute fractures or malalignment. LUMBAR SPINE No acute fractures or malalignment. CT/CT chest wo con IMPRESSION: No acute traumatic findings of the chest abdomen and pelvis. Findings of a colitis/diarrheal illness. 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 Electronically authenticated by: TAHIRA DUMAS Date: 04/14/2023 19:30
--- NOTE | 2023-04-14 18:05 | CT_ITS ---
[address] [address] Patient Name: OLIVERIO RUTLEDGE MRN: [id number] date: 1945 Sex: M Assigned Patient Location: ER Current Patient Location: ED[facility] Accession/Order Number: [id number] Exam Date: 04/14/2023 18:20 Report Date: 04/14/2023 19:30 At the request of: JOHAN ODONNELL Procedure: CT abdomen pelvis wo con EXAM: CT chest wo con, CT abdomen pelvis wo con INDICATION: Trauma TECHNIQUE: CT chest abdomen and pelvis without contrast. Multiplanar reformats obtained. Dose reduction technique was used including one or more of the following: automated exposure control, adjustment of mA and kV according to patient size, and/or iterative reconstruction. COMPARISON: CT abdomen and pelvis 01/08/2020. FINDINGS: CHEST SUPPORT DEVICES: None seen. CARDIOMEDIASTINAL TRAUMA: No evidence of aortic injury. No pericardial effusion or mediastinal hematoma. PLEUROPULMONARY TRAUMA: No pneumothorax or pulmonary contusion. MUSCULOSKELETAL TRAUMA: No fractures of the ribs or sternum identified. No CT evidence of significant soft tissue injury. OTHER: Cardiomegaly. Median sternotomy wires. Mediastinal clips. ABDOMEN/PELVIS SUPPORT DEVICES: None seen. VISCERAL TRAUMA: No pneumoperitoneum or hemoperitoneum. No evidence of injury to the solid organs, bladder, bowel, or mesentery. MUSCULOSKELETAL TRAUMA: No pelvic fractures or diastasis identified. No CT evidence of significant soft tissue injury. OTHER: Cholelithiasis. Nonobstructive small left renal calcification. Punctate nonobstructive right renal calculus. No hydronephrosis. Adrenal glands unremarkable. Fluid distended cecum and ascending colon. Fluid levels in the large bowel. Edematous wall of the ascending colon. 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 THORACIC SPINE No acute fractures or malalignment. LUMBAR SPINE No acute fractures or malalignment. CT/CT abdomen pelvis wo con IMPRESSION: No acute traumatic findings of the chest abdomen and pelvis. Findings of a colitis/diarrheal illness. 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 Electronically authenticated by: TAHIRA DUMAS Date: 04/14/2023 19:30
--- OUTSIDE RECORDS SUMMARY | 2023-04-14 18:05 | XMS_ITS | CCD ---
Author Name Unknown Address [address] [place] [address] Organization [facility] Care Team Providers Care 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 Name Role Phone Michael Carballo Unavailable Unavailable Unavailable Michael Carballo Primary Care Provider [phone] MD Michael Carballo Primary Care Provider [phone] JIL Davies Attending Provider DO Manfred Wilson Primary [facility] DO Andrew Hernández Emergency Provider MD Omid Myrick Admit Provider MD Omid Myrick Attending Provider Al MD Yoshi Campoverde Attending Provider Michael [...] COOK Admitting Unavailable MICHAEL COOK Attending Unavailable MICHEAL COOK Consulting Unavailable MD SCOUT ROMO Attending Unavailable Carballo, Dr. Michael López Primary Care Unavailab DO FELICIA Frank Attending Unava ilable Carballo, Dr. Michael López Primary Care Unavailab Manfred Barlow Primary Care Unavailable Anna Tucker Attending Unavailable Anna Tucker Admitting Unavailable Allergies Allergy Classification Reported Allergen(s) Allergy Type Date of Onset Reaction(s) Facility (8 sources) Allopurinol; Translations: [allopurinol] Drug Allergy 10-16-2018 [facility] (8 sources) ceFAZolin; Translations: [Cefazolin] Drug Allergy 06-25-2021 Rash, Unknown [facility] Comment on above: extensive fiery red and warm flat rash (1 source) Allopurinol Drug Allergy [facility] (1 source) ceFAZolin Drug Allergy [facility] (1 source) Allopurinol Drug Allergy 06-25-2021 [facility] Medications Current Medications Medication Drug [...] Start: 11-03-2018 take 1 capsule by mo [facility] once daily in the evening dilTIAZem HCl ER Coated Beads 300 MG Oral Capsule Extended Release 24 Hour take 1 capsule every evening Quantity: 0 Refills: 0 Ordered: 04-Jul-2021 Felicia Astorga DO Start : 03-Nov-2018 Active Start: 11-03-2018 take 1 capsule by [facility] once daily dilTIAZem HCl ER Coated Beads 360 MG Oral Capsule Extended Release 24 Hour TAKE 1 CAPSULE Daily Quantity: 30 Refills: 11 Ordered: 03-Nov-2018 Felicia Astroga DO Start : 03-Nov-2018 Active Start: 11-03-2018 take 1 capsule by [facility] once daily dilTIAZem HCl ER Coated Beads 240 MG Oral Capsule Extended Release 24 Hour TAKE 1 CAPSULE Daily Quantity: 90 Refills: 3 Ordered: 24-Dec-2020 Felicia Astorga DO Start : 03-Nov-2018 Active Start: 10-31-2018 take 1 capsule by [facility] every twenty-four hours dilTIAZem 240 mg/24 hours [...] mg Start: 10-31-2018 take 1 tablet by [facility] three times daily hydrALAZINE HCl - 100 [...] mg Start: 11-02-2018 take 1 capsule by [facility] every twelve hours Mycophenolate Mofetil 250 MG [...] Tamiko Dsouza Status: Discontinued Generic Substitution Allowed Vina 0-Avm-Dlj-Fish Oil (Fish Oil) 1,000 mg (120 mg-180 mg) Capsule (4 sources) Start: 08-05-2017 take 1 tablet by mouth twice daily Vina 8-Aqd-Fuz-Fish Oil (Fish Oil) 1,000 mg (120 mg-180 mg) Capsule Active 1 TAB PO Twice daily August 05, 2017 11:13am Start: 08-05-2017 take 1 tablet by anila th once daily Vina 2-Bba-Tye-Fish Oil (Fish Oil) 1,000 mg (120 mg-180 mg) Capsule Active 1 TAB PO Daily August 05, 2017 11:13am Start: 08-05-2017 take 1 tablet by anila th twice daily Vina 6-Vjf-Dqg-Fish Oil (Fish Oil) 1,000 mg (120 mg-180 [...] tube 2 times a day only on Dgvlok-Emlxkjsww-Iaiviu Quantity: 24 Refills: 0 Ordered: 21-Jan-2016 Warren [...] possible liver damage. take 2 tablets by [facility] every six hours as needed for pain [...] Active Start: 10-15-2021 take 2 tablets by [facility] once daily busPIRone HCl - 10 MG Oral Tablet TAKE 2 TABLET Daily Quantity: 0 Refills: 0 Ordered: 15-Oct-2021 DO Start : 15-Oct-2021 Active take 1 tablet by [facility] twice daily busPIRone (BUSPAR) 15 MG tablet [...] Allowed Start: 10-31-2018 take 1 capsule by [facility] every six hours as needed diphenhydrAMINE 25 [...] 1 capsule by mouth twice da padmaja Vina-3 Fatty Acids (FISH OIL) 1000 MG CAPS [...] Active Start: 07-02-2021 inject 12 [IU] by lcaey bcutaneous injection once at bedtime insulin glargine [...] if Blood Glucose is between 251 - 73020 unit(s) if Blood Glucose is between 301 - 04575 unit(s) if Blood Glucose is between 351 [...] if Blood glucose is between 301 - 75074 unit(s) if Blood glucose is between 351 [...] 02-Jul-2021 Generic Substitution Allowed polyethylene glycol 3350 91541 mg powder for oral solution (7 sources) Osmotic Laxative Start: 10-15-2021 MiraLax Mix-I n [place] 17 GM Oral Packet MIX 1 PACKET [...] Allowed Start: 07-02-2021 take 1 capsule by [facility] every twelve hours Tacrolimus 1 MG Oral [...] Coma; stupor; and brain damage (1 source) Reynolds coma scale finding; Translations: [Reynolds coma scale score 13-15, at hospital admission] [...] Problem Lis t Migration; 2012-10-14; Moved to [facility] Feb 17 2013 9:03PM; Fever of [...] right upper extremity 06-30-2021 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 (1 source) intermediate current use of insulin 07-02-2021 Past or Other Problems Problem Classification Problem Date Documented Da te Episodic/Chronic Other gastrointestinal disorders (1 source) Dysphagia, unspecified; Translations: [DYSPHAGIA UNSPECIFIED] Onset: 08-08-2021 Episodic 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 (1 source) SWELLING UPPER/LOW EXTREMITIES 06-27-2021 Comment on above: SWELLING UPPER/LOW E XTREMITIES Results Test Name Value Interpretation Reference Range Facility [facility] 09-14-2022 Lab Reports [id number]:127 Normal [facility] VIT D 25-OH LABCORPon 2022 Vitamin D, 25-Hydroxy 29.5 ng/mL Critically low 30.0-100.0 [facility] Comment on above: Result Comment: Jennifer min D deficiency has been defined by the [place] of [employer] and an Endocrine Society practice guideline as a level of serum 25-OH vitamin D less than 20 ng/mL (1,2). The Endocrine Society went on to further define vitamin D insufficiency as a level between 21 and 29 ng/mL (2). 1. IOM ([place] of [employer]). 2010. Dietary reference intakes for calcium and D. [place]: The National Academies Press. 2. Ely MF, Brad NC, Kristy ORTEGA, et al. Evaluation, treatment, and prevention of vitamin D deficiency: an Endocrine Society clinical practice guideline. JCEM. 2010; 96(7):1911-30. Performed By: #### V ITADLC #### [facility] [address] [place] [address] Dr. Ronnie Pennington CBC AUTO DIFFon 07-24-2022 BASO # 0.0 103/ul Normal 0.0-0.1 [facility] Comment on above: Performed By: #### C BC #### [facility] [address] [address] [address] Ronnie Pennington Basophils/100 WBC (Bld) 0.6 % Normal 0.2-2.0 [facility] Comment on above: Performed By: #### C BC #### [facility] [address] [address] [address] Ronnie Pennington EO # 0.1 103/ul Normal 0.0-0.7 [facility] Comment on above: Performed By: #### C BC #### [facility] [address] [address] [address] Ronnie Pennington Eosinophils/100 WBC (Bld) 2.0 % Normal 0.9-7.0 [facility] Comment on above: Performed By: #### C BC #### [facility] [address] [place] [address] Dr. Ronnie Pennington Erythrocyte distribution width (RBC) [Ratio] 13.2 % Normal 11.0-15.0 [facility] Comment on above: Performed By: #### C BC #### [facility] [address] [place] [address] Dr. Ronnie Pennington Hematocrit (Bld) [Volume fraction] 33.3 % Critically low 42.0-54.0 [facility] Comment on above: Performed By: #### C BC #### [facility] [address] [place] [address] Dr. Ronnie Pennington Hemoglobin (Bld) [Mass/Vol] 10.0 g/dL Critically low 14.0-18.0 [facility] Comment on above: Performed By: #### C BC #### [facility] [address] [place] [address] Dr. Ronnie Pennington IG # 0.04 10e3/ul Critically high 0.00-0.03 [facility] Comment on above: Performed By: #### C BC #### [facility] [address] [place] [address] Dr. Ronnie Pennington IG % 0.6 % Critically high 0.0-0.5 [facility] Comment on above: Performed By: #### C BC #### [facility] [address] [place] [address] Dr. Ronnie Pennington LYMPH # 1.2 103/ul Normal 1.2-3.8 [facility] Comment on above: Performed By: #### C BC #### [facility] [address] [place] [address] Dr. Ronnie Pennington Lymphocytes/100 WBC (Bld) 17.9 % Critically low 20.5-60.0 [facility] Comment on above: Performed By: #### C BC #### [facility] [address] [place] [address] Dr. Ronnie ePnnington MANUAL DIFF REQ NO Normal [facility] Comment on above: Performed By: #### C BC #### [facility] [address] [place] [address] Dr. Ronnie Pennington MCH (RBC) [Entitic mass] 28.2 pg Normal 25.9-34.0 [facility] Comment on above: Performed By: #### C BC #### [facility] [address] [place] [address] Dr. Ronnie Pennington MCHC (RBC) [Mass/Vol] 30.0 g/dL Normal 29.9-35.2 [facility] Comment on above: Performed By: #### C BC #### [facility] [address] [place] [address] Dr. Ronnie Pennington MCV (RBC) [Entitic vol] 94.1 fL Critically high 80.0-94 .0 [facility] Comment on above: Performed By: #### C BC #### [facility] [address] [place] [address] Dr. Ronnie Pennington MONO # 0.4 103/ul Normal 0.3-0.8 [facility] Comment on above: Performed By: #### C BC #### [facility] [address] [place] [address] Dr. Ronnie Pennington Monocytes/100 WBC (Bld) 6.5 % Normal 1.7-12.0 [facility] Comment on above: Performed By: #### C BC #### [facility] [address] [address] [address] Ronnie Pennington NEUT # 4.8 103/ul Normal 1.4-6.5 [facility] Comment on above: Performed By: #### C BC #### [facility] [address] [place] [address] Dr. Ronnie Pennington Neutrophils/100 WBC (Bld) 72.4 % Normal 43.0-75.0 [facility] Comment on above: Performed By: #### C BC #### [facility] [address] [place] [address] Dr. Ronnie Pennington Platelet mean volume (Bld) [Entitic vol] 11.7 fL Normal 9.5-13.5 [facility] Comment on above: Performed By: #### C BC #### [facility] [address] [place] [address] Dr. Ronnie Pennington PLT 137 103/ul Critically low 150-450 [facility] Comment on above: Performed By: #### C BC #### [facility] [address] [place] [address] Dr. Ronnie Pennington RBC 3.54 106/ul Critically low 4.70-6.10 [facility] Comment on above: Performed By: #### C BC #### [facility] [address] [place] [address] Dr. Ronnie Pennington WBC 6.6 103/ul Normal 4.0-11.0 [facility] Comment on above: Performed By: #### C BC #### [facility] [address] [place] [address] Dr. Ronnie Pennington GLYCOHEMOGLOBIN A1Con 2022 ADA RECOMMENDATION SEE BELOW Normal [facility] Comment on above: Result Comment: ADA RECOMMENDED LIMIT 4.0 - 6.0 ADA THERAPEUTIC TARGET < 7.0 ACTION SUGGESTED > 7.0 Performed By: #### A 1C #### [facility] [address] [place] [address] Dr. Ronnie Pennington Glucose [Mass/Vol] 171 mg/dL Normal [facility] Comment on above: Performed By: #### A 1C #### [facility] [address] [address] [address] Ronnie Pennington HbA1c (Bld) [Mass fraction] 7.6 % Critically high 4.5-6.2 [facility] Comment on above: Performed By: #### A 1C #### [facility] [address] [address] [address] Ronnie Pennington MAGNESIUMon 07-24-2022 Magnesium [Mass/Vol] 2.3 mg/dL Normal 1.8-2.4 [facility] Comment on above: Performed By: #### M Mree, TSH, CMP ####[facility] [address] [address]Dr. Ronnie Pennington PROF 14(COMP METB)on 023 Albumin [Mass/Vol] 2.8 g/dL Critically low 3.4-5.0 [facility] Comment on above: Performed By: #### Joaquin Severino TSH, CMP ####[facility] [address] [address]DrFreddy Pennington Albumin/Globulin [Mass ratio] 0.7 {ratio} Normal [facility] Comment on above: Performed By: #### Joaquin Severino TSH, CMP ####[facility] [address] [address]DrFreddy Pennington ALP [Catalytic activity/Vol] 69 U/L Normal 46-116 [facility] Comment on above: Performed By: #### M Mere TSH, CMP ####[facility] [address] [address]DrFreddy Pennington ALT [Catalytic activity/Vol] 8 U/L Critically low 16-63 [facility] Comment on above: Performed By: #### Joaquin Severino TSH, CMP ####[facility] [address] [address]DrFreddy Pennington Anion gap [Moles/Vol] 9.9 mmol/L Normal [facility] Comment on above: Performed By: #### M G TSH, CMP ####[facility] [address] [address]DrFreddy Pennington AST [Catalytic activity/Vol] 9 U/L Critically low 15-37 [facility] Comment on above: Performed By: #### M Mere TSH, CMP ####[facility] [address] [place], [place] [address]Dr. Ronnie Pennington Bilirubin [Mass/Vol] 0.2 mg/dL Normal 0.2-1.0 [facility] Comment on above: Performed By: #### Joaquin Severino TSH, CMP ####[facility] [address] [place], [place] [address]Dr. Ronnie Pennington Calcium [Mass/Vol] 8.9 mg/dL Normal 8.5-10.1 [facility] Comment on above: Performed By: #### Joaquin Severino TSH, CMP ####[facility] [address] [place], [place] [address]Dr. Ronnie Pennington Chloride [Moles/Vol] 104 mmol/L Normal 98-107 [facility] Comment on above: Performed By: #### Joaquin Severino TSH, CMP ####[facility] [address] [place], [place] [address]Dr. Ronnie Pennington CO2 [Moles/Vol] 28.4 mmol/L Normal 21.0-32.0 [facility] Comment on above: Performed By: #### oJaquin Severino TSH, CMP ####[facility] [address] [place], [place] [address]Dr. Ronnie Pennington Creatinine [Mass/Vol] 2.09 mg/dL Critically high 0.70-1.30 [facility] Comment on above: Performed By: #### Joaquin Severino, TSH, CMP ####[facility] [address] [place], [place] [address]Dr. Salomelenny Pennington EGFR-AF POLISH 37 mL/min/1.73m2 Critically low >=60 [facility] Comment on above: Performed By: #### Joaquin Severino, TSH, CMP ####[facility] [address] [place], [place] [address]Dr. Ronnie Pennington EGFR-NON AF POLISH 31 mL/min/1.73m2 Critically low >=60 [facility] Comment on above: Performed By: #### M G, TSH, CMP ####[facility] [address] [address]Dr. Ronnie Pennington Globulin (S) [Mass/Vol] 3.9 g/dL Normal [facility] Comment on above: Performed By: #### M G, TSH, CMP ####[facility] [address] [address]Dr. Ronnie Pennington Glucose [Mass/Vol] 165 mg/dL Critically high 74-106 [facility] Comment on above: Performed By: #### M G, TSH, CMP ####[facility] [address] [place], [place] [address]Dr. Ronnie Pennington Potassium [Moles/Vol] 4.3 mmol/L Normal 3.5-5.1 [facility] Comment on above: Performed By: #### M G, TSH, CMP ####[facility] [address] [place], [place] [address]Dr. Ronnie Pennington Protein [Mass/Vol] 6.7 g/dL Normal 6.4-8.2 [facility] Comment on above: Performed By: #### M G, TSH, CMP ####[facility] [address] [place], [place] [address]Dr. Ronnie Pennington Sodium [Moles/Vol] 138 mmol/L Normal 136-145 [facility] Comment on above: Performed By: #### M G, TSH, CMP ####[facility] [address] [place], [place] [address]Dr. Ronnie Pennington Urea nitrogen [Mass/Vol] 33.0 mg/dL Critically high 7.0-18.0 [facility] Comment on above: Performed By: #### M G, TSH, CMP ####[facility] [address] [place], [place] [address]Dr. Ronnie Pennington Urea nitrogen/Creatinine [Mass ratio] 15.8 mg/mg Normal [facility] Comment on above: Performed By: #### M G, TSH, CMP ####[facility] [address] [place], [place] [address]Dr. Ronnie Pennington TSHon 07-24-2022 TSH 2.763 uIU/mL Normal 0.358-3.74 0 [facility] Comment on above: Performed By: #### M G, TSH, CMP ####[facility] [address] [address]Dr. Ronnie Pennington FK506 (TACROLIMUS) WHOLE BLO ODon 07-15-2022 Tacrolimus (FK506), Blood 9.4 ng/mL Normal 2.0-20.0 [facility] Comment on above: Result Comment: Trou gh (immediately following transplant) 15.0 . Trough (steady state, 2 weeks or more after transplant): 3.0 - 8.0 . Performed by LC-MS/MS technology. Performed By: #### F [id number] #### [facility] [address] [place] [address] Dr. Ronnie Pennington CBC AUTO DIFFon 07-13-2022 BASO # 0.0 103/ul Normal 0.0-0.1 [facility] Comment on above: Performed By: #### C BC #### [facility] [address] [place] [address] Dr. Ronnie Pennington Basophils/100 WBC (Bld) 0.3 % Normal 0.2-2.0 [facility] Comment on above: Performed By: #### C BC #### [facility] [address] [place] [address] Dr. Ronnie Pennington EO # 0.2 103/ul Normal 0.0-0.7 [facility] Comment on above: Performed By: #### C BC #### [facility] [address] [place] [address] Dr. Ronnie Pennington Eosinophils/100 WBC (Bld) 2.5 % Normal 0.9-7.0 [facility] Comment on above: Performed By: #### C BC #### [facility] [address] [place] [address] Dr. Ronnie Pennington Erythrocyte distribution width (RBC) [Ratio] 13.1 % Normal 11.0-15.0 [facility] Comment on above: Performed By: #### C BC #### [facility] [address] [place] [address] Dr. Ronnie Pennington Hematocrit (Bld) [Volume fraction] 33.4 % Critically low 42.0-54.0 [facility] Comment on above: Performed By: #### C BC #### [facility] [address] [place] [address] Dr. Ronnie Pennington Hemoglobin (Bld) [Mass/Vol] 10.4 g/dL Critically low 14.0-18.0 [facility] Comment on above: Performed By: #### C BC #### [facility] [address] [place] [address] Dr. Ronnie Pennington IG # 0.04 10e3/ul Critically high 0.00-0.03 [facility] Comment on above: Performed By: #### C BC #### [facility] [address] [place] [address] Dr. Ronnie Pennington IG % 0.6 % Critically high 0.0-0.5 [facility] Comment on above: Performed By: #### C BC #### [facility] [address] [place] [address] Dr. Ronnie Pennington LYMPH # 1.2 103/ul Normal 1.2-3.8 [facility] Comment on above: Performed By: #### C BC #### [facility] [address] [place] [address] Dr. Ronnie Pennington Lymphocytes/100 WBC (Bld) 16.8 % Critically low 20.5-60.0 [facility] Comment on above: Performed By: #### C BC #### [facility] [address] [place] [address] Dr. Ronnie Pennington MANUAL DIFF REQ NO Normal [facility] Comment on above: Performed By: #### C BC #### [facility] [address] [place] [address] Dr. Ronnie Pennington MCH (RBC) [Entitic mass] 28.5 pg Normal 25.9-34.0 [facility] Comment on above: Performed By: #### C BC #### [facility] [address] [place] [address] Dr. Ronnie Pennington MCHC (RBC) [Mass/Vol] 31.1 g/dL Normal 29.9-35.2 [facility] Comment on above: Performed By: #### C BC #### [facility] [address] [place] [address] Dr. Ronnie Pennington MCV (RBC) [Entitic vol] 91.5 fL Normal 80.0-94.0 [facility] Comment on above: Performed By: #### C BC #### [facility] [address] [place] [address] Dr. Ronnie Pennington MONO # 0.5 103/ul Normal 0.3-0.8 [facility] Comment on above: Performed By: #### C BC #### [facility] [address] [place] [address] Dr. Ronnie Pennington Monocytes/100 WBC (Bld) 7.5 % Normal 1.7-12.0 [facility] Comment on above: Performed By: #### C BC #### [facility] [address] [place] [address] Dr. Ronnie Pennington NEUT # 5.0 103/ul Normal 1.4-6.5 [facility] Comment on above: Performed By: #### C BC #### [facility] [address] [place] [address] Dr. Ronnie Pennington Neutrophils/100 WBC (Bld) 72.3 % Normal 43.0-75.0 [facility] Comment on above: Performed By: #### C BC #### [facility] [address] [place] [address] Dr. Ronnie Pennington Platelet mean volume (Bld) [Entitic vol] 11.8 fL Normal 9.5-13.5 [facility] Comment on above: Performed By: #### C BC #### [facility] [address] [place] [address] Dr. Ronnie Pennington PLT 126 103/ul Critically low 150-450 [facility] Comment on above: Performed By: #### C BC #### [facility] [address] [place] [address] Dr. Ronnie Pennington RBC 3.65 106/ul Critically low 4.70-6.10 [facility] Comment on above: Performed By: #### C BC #### [facility] [address] [address] [address] Ronnie Pennington WBC 6.9 103/ul Normal 4.0-11.0 [facility] Comment on above: Performed By: #### C BC #### [facility] [address] [address] [address] Ronnie Pennington MAGNESIUMon 07-13-2022 Magnesium [Mass/Vol] 2.1 mg/dL Normal 1.8-2.4 [facility] Comment on above: Performed By: #### C MP, MG #### [facility] [address] [place] [address] Dr. Ronnie Pennington Office Visit (Cardiology)on 07-13-2022 Follow-up visit Patient Instructions -Please bring a list of your medications to every appointment. -We will schedule you a follow up appointment in # months. We will call you with this date. -If you have any questions, please do not hesitate to contact our office at [phone]. For after hours issues, please call [phone]. Chief Complaint OLIVERIO ESCOBEDO is being seen [...] September 2021. [facility] [place] He has started Zoloft for depression. He [...] TabletTake 1 tablet twice daily MiraLax Mix-In [place] 17 GM Oral PacketMIX 1 PACKET in [...] TABLET Bedtime (more content not included)... Normal [facility] PROF 14(COMP METB)on 023 Albumin [Mass/Vol] 2.9 g/dL Critically low 3.4-5.0 [facility] Comment on above: Performed By: #### C MP, MG #### [facility] [address] [place] [address] Dr. Ronnie Pennington Albumin/Globulin [Mass ratio] 0.7 {ratio} Normal [facility] Comment on above: Performed By: #### C MP, MG #### [facility] [address] [address] [address] Ronnie Pennington ALP [Catalytic activity/Vol] 71 U/L Normal 46-116 [facility] Comment on above: Performed By: #### C MP, MG #### [facility] [address] [place] [address] Dr. Ronnie Pennington ALT [Catalytic activity/Vol] 12 U/L Critically low 16-63 [facility] Comment on above: Performed By: #### C MP, MG #### [facility] [address] [address] [address] Ronnie Pennington Anion gap [Moles/Vol] 15.1 mmol/L Normal [facility] Comment on above: Performed By: #### C MP, MG #### [facility] [address] [place] [address] Dr. Ronnie Pennington AST [Catalytic activity/Vol] 11 U/L Critically low 15-37 [facility] Comment on above: Performed By: #### C MP, MG #### [facility] [address] [place] [address] Dr. Ronnie Pennintgon Bilirubin [Mass/Vol] 0.2 mg/dL Normal 0.2-1.0 [facility] Comment on above: Performed By: #### C MP, MG #### [facility] [address] [place] [address] Dr. Ronnie Pennington Calcium [Mass/Vol] 9.2 mg/dL Normal 8.5-10.1 [facility] Comment on above: Performed By: #### C MP, MG #### [facility] [address] [place] [address] Dr. Ronnie Pennington Chloride [Moles/Vol] 105 mmol/L Normal 98-107 [facility] Comment on above: Performed By: #### C MP, MG #### [facility] [address] [place] [address] Dr. Ronnie Pennington CO2 [Moles/Vol] 28.1 mmol/L Normal 21.0-32.0 [facility] Comment on above: Performed By: #### C MP, MG #### [facility] [address] [place] [address] Dr. Ronnie Pennington Creatinine [Mass/Vol] 2.14 mg/dL Critically high 0.70-1.30 [facility] Comment on above: Performed By: #### C MP, MG #### [facility] [address] [place] [address] Dr. Ronnie Pennington EGFR-AF POLISH 36 mL/min/1.73m2 Critically low >=60 [facility] Comment on above: Performed By: #### C MP, MG #### [facility] [address] [place] [address] Dr. Ronnie Pennington EGFR-NON AF POLISH 30 mL/min/1.73m2 Critically low >=60 [facility] Comment on above: Performed By: #### C MP, MG #### [facility] [address] [place] [address] Dr. Ronnie Pennington Globulin (S) [Mass/Vol] 4.0 g/dL Normal [facility] Comment on above: Performed By: #### C MP, MG #### [facility] [address] [place] [address] Dr. Ronnie Pennington Glucose [Mass/Vol] 150 mg/dL Critically high 74-106 [facility] Comment on above: Performed By: #### C MP, MG #### [facility] [address] [place] [address] Dr. Ronnie Pennington Potassium [Moles/Vol] 4.2 mmol/L Normal 3.5-5.1 [facility] Comment on above: Performed By: #### C MP, MG #### [facility] [address] [address] [address] Ronnie Pennington Protein [Mass/Vol] 6.9 g/dL Normal 6.4-8.2 [facility] Comment on above: Performed By: #### C MP, MG #### [facility] [address] [address] [address] Ronnie Pennington Sodium [Moles/Vol] 144 mmol/L Normal 136-145 [facility] Comment on above: Performed By: #### C MP, MG #### [facility] [address] [address] [address] Ronnie Pennington Urea nitrogen [Mass/Vol] 32.0 mg/dL Critically high 7.0-18.0 [facility] Comment on above: Performed By: #### C MP, MG #### [facility] [address] [address] [address] Ronnie Pennington Urea nitrogen/Creatinine [Mass ratio] 15.0 mg/mg Normal [facility] Comment on above: Performed By: #### C MP, MG #### [facility] [address] [address] [address] Ronnie Pennington Transplant SW Assessment Upd [...] Jul 15 2022 12:57PM EST (Author) Normal [employer] Consultation Noteon 06-10-19 Consultation Note [id number]:[id number] Normal [facility] TSHon 06-05-2022 TSH 3.293 uIU/mL Normal 0.358-3.74 0 [facility] Comment on above: Performed By: #### T SH #### [facility] [address] [address] [address] Ronnie Pennington Cult,Woundon 04-19-2022 Cult,Wound Specimen [...] Tetracycline <=1 SUSCEPTIBLE Trimethoprim/Sulfa <=10 SUSCEPTIBLE Susceptible [facility] Comment on above: Performed By: #### W DC #### [id number] [place] [address] [employer] Subject Matter Expert: David Gonzalez MD PROF CHEM 8 ([facility])on Anion gap [Moles/Vol] 14.9 mmol/L Normal [facility] Comment on above: Performed By: #### B MP #### [facility] [address] [place] [address] Dr. Ronnie Pennington Calcium [Mass/Vol] 8.8 mg/dL Normal 8.5-10.1 [facility] Comment on above: Performed By: #### B MP #### [facility] [address] [place] [address] Dr. Ronnie Pennington Chloride [Moles/Vol] 104 mmol/L Normal 98-107 [facility] Comment on above: Performed By: #### B MP #### [facility] [address] [place] [address] Dr. Ronnie Pennington CO2 [Moles/Vol] 26.6 mmol/L Normal 21.0-32.0 [facility] Comment on above: Performed By: #### B MP #### [facility] [address] [address] [address] Ronnie Pennington Creatinine [Mass/Vol] 2.03 mg/dL Critically high 0.70-1.30 [facility] Comment on above: Performed By: #### B MP #### [facility] [address] [address] [address] Ronnie Pennington EGFR-AF POLISH 39 mL/min/1.73m2 Critically low >=60 [facility] Comment on above: Performed By: #### B MP #### [facility] [address] [address] [address] Ronnie Pennington EGFR-NON AF POLISH 32 mL/min/1.73m2 Critically low >=60 [facility] Comment on above: Performed By: #### B MP #### [facility] [address] [address] [address] Ronnie Pennington Glucose [Mass/Vol] 209 mg/dL Critically high 74-106 T [facility] Comment on above: Performed By: #### B MP #### [facility] [address] [address] [address] Ronnie Pennington Potassium [Moles/Vol] 4.5 mmol/L Normal 3.5-5.1 [facility] Comment on above: Performed By: #### B MP #### [facility] [address] [address] [address] Ronnie Pennington Sodium [Moles/Vol] 141 mmol/L Normal 136-145 [facility] Comment on above: Performed By: #### B MP #### [facility] [address] [address] [address] Ronnie Pennington Urea nitrogen [Mass/Vol] 26.0 mg/dL Critically high 7.0-18.0 [facility] Comment on above: Performed By: #### B MP #### [facility] [address] [address] [address] Ronnie Pennington Urea nitrogen/Creatinine [Mass ratio] 12.8 mg/mg Normal [facility] Comment on above: Performed By: #### B #### [facility] [address] [place], [place] [address] Dr. Ronnie Pennington Office Visit (Cardiology)on 10-15-2021 Follow-up visit Diagnoses/Problems [...] last office visit; documented BPs at the [facility] 120-130s/70-80s. Benadryl 25 mg q6h PRN for [...] Oral TabletTak (more content not included)... Normal [place] [employer] XR MODIFIED BARIUM SWALLOWon 08-05-2021 XR MODIFIED [...] JARON NESS Date: 2021-08-05 15:10 Normal [facility] CBC AND DIFFERENTIALon 07-13 % AUTOMATED IMMATURE GRAN 0.5 % Normal 0.0 - 0.9 [facility] Comment on above: Result Comment: Christal ture Granulocyte Count (IG) includes promyelocytes, myelocytes and metamyelocytes but does not include bands. Percent differential counts (%) should be interpreted in the context of the absolute cell counts (cells/L). Performed By: #### C BCDF #### [address] [address] Basophils (Bld) [#/Vol] 0.02 10*3/uL Normal 0.00 - 0.10 [facility] Comment on above: Performed By: #### C BCDF #### [address] [address] Basophils/100 WBC (Bld) 0.3 % Normal 0.0 - 2.0 [facility] Comment on above: Performed By: #### C BCDF #### [address] [address] Eosinophils (Bld) [#/Vol] 0.07 10*3/uL Normal 0.00 - 0.40 [facility] Comment on above: Performed By: #### C BCDF #### [address] [address] Eosinophils/100 WBC (Bld) 0.9 % Normal 0.0 - 6.0 [facility] Comment on above: Performed By: #### C BCDF #### [address] [address] Erythrocyte distribution width (RBC) [Ratio] 14.4 % Normal 11.5 - 14.5 [facility] Comment on above: Performed By: #### C BCDF #### [address] [place] [address] Hematocrit (Bld) [Volume fraction] 35.5 % Low 41.0 - 52.0 [facility] Comment on above: Performed By: #### C BCDF #### [address] [place] [address] Hemoglobin (Bld) [Mass/Vol] 10.8 g/dL Low 13.5 - 17.5 [facility] Comment on above: Performed By: #### C BCDF #### [address] [place] [address] Lymphocytes (Bld) [#/Vol] 0.42 10*3/uL Low 0.80 - 3.00 [facility] Comment on above: Performed By: #### C BCDF #### [address] [place] [address] Lymphocytes/100 WBC (Bld) 5.6 % Normal 13.0 - 44.0 [facility] Comment on above: Performed By: #### C BCDF #### [address] [place] [address] MCHC (RBC) [Mass/Vol] 30.4 g/dL Low 32.0 - 36.0 [facility] Comment on above: Performed By: #### C BCDF #### [address] [address] MCV (RBC) [Entitic vol] 89 fL Normal 80 - 100 [facility] Comment on above: Performed By: #### C BCDF #### [address] [address] Monocytes (Bld) [#/Vol] 0.07 10*3/uL Normal 0.05 - 0.80 [facility] [place] on above: Performed By: #### C BCDF #### [address] [address] Monocytes/100 WBC (Bld) 0.9 % Normal 2.0 - 10.0 [facility] Comment on above: Performed By: #### C BCDF #### [address] [address] Neutrophils (Bld) [#/Vol] 6.82 10*3/uL High 1.60 - 5.50 [facility] [place] on above: Performed By: #### C BCDF #### [address] [address] Neutrophils/100 WBC (Bld) 91.8 % Normal 40.0 - 80.0 [facility] Comment on above: Performed By: #### C BCDF #### [address] [address] NUCLEATED RBC 0.0 /100 WBC Normal 0.0 - 0.0 [facility] Comment on above: Performed By: #### C BCDF #### [address] [address] Platelets (Bld) [#/Vol] 161 10*3/uL Normal 150 - 450 [facility] Comment on above: Performed By: #### C BCDF #### [address] [address] RBC 3.98 x10E12/L Low 4.50 - 5.90 [facility] Comment on above: Performed By: #### C BCDF #### [address] [address] WBC (Bld) [#/Vol] 7.4 10*3/uL Normal 4.4 - 11.3 [facility] Comment on above: Performed By: #### C BCDF #### [address] [address] Complete Blood Count + Diffe rentialon 07-13-2021 Basophils/100 WBC (Bld) 0.3 % 0.0 - 2.0 [facility] [address] [place] Work Phone: Erythrocyte distribution width (RBC) [Ratio] 14.4 % See Below [facility] [address] [place] Work Phone: Comment on above: Reference Range: 11. 5 - 14.5 Hematocrit (Bld) [Volume fraction] 35.5 % below low threshold See Below [facility] [address] [place] Work Phone: Comment on [...] 161 10*3/uL 150 - 450 [facility] [address] [place] Work Phone: RBC (Bld) [#/Vol] 3.98 {x10E12/L} below low threshold See Below [facility] [address] [place] Work Phone: Comment on above: Reference Range: 4.5 0 - 5.90 WBC (Bld) [#/Vol] 7.4 10*3/uL 4.4 - 11.3 [facility] [address] [place] Work Phone: Complete Blood Count + Differential 0.02 {x10E9/L} See Below [facility] [address] [place] Work Phone: Comment on above: Reference Range: 0.0 0 - 0.10 Complete Blood Count + Differential 0.07 {x10E9/L} See Below [facility] [address] [place] Work Phone: Comment on above: Reference Range: 0.0 0 - 0.40 Reference Range: 0.0 5 - 0.80 Complete Blood Count + Differential 0.42 {x10E9/L} below low threshold See Below [facility] [address] [place] Work Phone: Comment on above: Reference Range: 0.8 0 - 3.00 Complete Blood Count + Differential 6.82 {x10E9/L} above high threshold See Below [facility] [place] [facility] [address] [place] Work Phone: Comment on above: Reference Range: 1.6 0 - 5.50 Complete Blood Count + Differential 0.9 % 0.0 - 6.0 [facility] [address] [place] Work Phone: Complete Blood Count + Differential 0.5 % 0.0 - 0.9 [facility] [address] [place] Work Phone: Comment on above: Immature Granulocyte Count (IG) includes promyelocytes, myelocytes and metamyelocytes but does not include bands. Percent differential counts (%) should be interpreted in the context of the absolute cell counts (cells/L). Complete Blood Count + Differential 0.0 {/100_WBC} 0.0 - 0.0 [facility] [address] [place] Work Phone: Coronavirus 2019 RNA by PCR, Symptomaticon 07-03-2021 Date and time of symptom onset [id number] [facility] [address] [place] Work Phone: Coronavirus 2019 RNA by PCR, Symptomatic Not detected Normal See Below [facility] [address] [place] Work Phone: Comment on above: SOURCE: Nasal, Nasop haryngealReference Range: Not Detected.This test has received FDA Emergency Use Authorization (EUA) and has been verified by [facility] ([facility]). This test is only authorized for the duration of time that circumstances exist to justify the authorization of the emergency use of in vitro diagnostic tests for the detection of SARS-CoV-2 virus and/or diagnosis of COVID-19 infection under section 564(b)(1) of the Act, 21 U.S.C. 360bbb-3(b)(1), unless the authorization is terminated or revoked sooner. [facility] is certified under CLIA-88 as qualified to perform high complexity testing. Testing is performed in the [facility] located at [address] [place] [address].SARS-CoV-2/Flu/RSV Multiplex Test: Fact sheet for providers: https://www.fda.gov/media/791180/downloadFact sheet for patients: https://www.fda.gov/media/765778/download Laboratory - Chemistry and C hemistry - challengeon 07-03-2021 Glucose [Mass/Vol] 330 mg/dL above high threshold 74 - 99 [facility] [address] [place] Work Phone: Glucose [Mass/Vol] [...] mmol/L 21 - 32 [facility] [address] [place] Work Phone: Creatinine [Mass/Vol] 1.80 mg/dL above high threshold See Below [facility] [address] [place] Work Phone: Comment on above: Reference Range: 0.5 0 - 1.30 Glucose [Mass/Vol] 246 mg/dL above high threshold 74 - 99 [facility] [address] [place] Work Phone: Potassium [Moles/Vol] 3.9 mmol/L 3.5 - 5.3 [facility] [address] [place] Work Phone: [phone] Sodium [Moles/Vol] 138 mmol/L 136 - 145 [facility] [address] [place] Work Phone: Urea nitrogen [...] below low threshold See Below [facility] [address] [place] Work Phone: Comment on above: Reference Range: 41. 0 - 52.0 Hemoglobin (Bld) [Mass/Vol] 10.8 g/dL below low threshold See Below [facility] [address] [place] Work Phone: Comment on above: Reference Range: 13. 5 - 17.5 MCHC (RBC) [Mass/Vol] 30.8 g/dL below low threshold See Below [facility] [address] [place] Work Phone: Comment on above: Reference Range: 32. 0 - 36.0 MCV (RBC) [Entitic vol] 89 fL 80 - 100 [facility] [address] [place] Work Phone: Platelets (Bld) [#/Vol] 171 10*3/uL 150 - 450 [facility] [address] [place] Work Phone: RBC (Bld) [#/Vol] 3.94 {x10E12/L} below low threshold See Below [facility] [address] [place] Work Phone: Comment on above: Reference Range: 4.5 0 - 5.90 WBC (Bld) [#/Vol] 6.0 10*3/uL 4.4 - 11.3 [facility] [address] [place] Work Phone: No Panel Informationon 07-03 38 {mL/min/1.73m2} Abnormal >90 [facility] [address] [place] Work Phone: Comment on above: CALCULATIONS OF ERNST MATED GFR ARE PERFORMED USING THE 2020 CKD-EPI STUDY REFIT EQUATION WITHOUT THE RACE VARIABLE FOR THE IDMS-TRACEABLE CREATININE METHODS.https://jasn.asnjournals.org/content/early// ASN.1554357750 0.0 {/100_WBC} 0.0-0.0 [facility] [address] [place] Work Phone: Tacrolimuson 07-03-2021 Tacrolimus (Bld) [Mass/Vol] 5.5 ng/mL 2.0 - 15.0 [facility] [address] [place] Work Phone: Comment on above: NOTE: Result was obt ained using a chemiluminescent microparticle immunoassay (CMIA) on the [employer] i system.Optimal therapeutic ranges for immuno-suppressant drugs [...] high threshold 74 - 99 [facility] [address] [place] Work Phone: [phone] Glucose [Mass/Vol] 286 mg/dL above high threshold 74 - 99 [facility] [address] [place] Work Phone: [phone] Glucose [Mass/Vol] 269 mg/dL above high threshold 74 - 99 [facility] [address] [place] Work Phone: [phone] Anion gap [Moles/Vol] 15 mmol/L 10 - 20 [facility] [address] [place] Work Phone: [phone] Calcium [Mass/Vol] 9.1 mg/dL 8.6 - 10.6 [facility] [address] [place] Work Phone: [phone] Chloride [Moles/Vol] 102 mmol/L 98 - 107 [facility] [address] [place] Work Phone: [phone] CO2 [Moles/Vol] 27 mmol/L 21 - 32 [facility] [address] [place] Work Phone: [phone] Creatinine [Mass/Vol] 1.97 mg/dL above high threshold See Below [facility] [address] [place] Work Phone: [phone] Comment on above: Reference Range: 0.5 0 - 1.30 Glucose [Mass/Vol] 197 mg/dL above high threshold 74 - 99 [facility] [address] [place] Work Phone: Potassium [Moles/Vol] 4.1 mmol/L 3.5 - 5.3 [facility] [address] [place] Work Phone: Sodium [Moles/Vol] 140 mmol/L 136 - 145 [facility] [address] [place] Work Phone: Urea nitrogen [Mass/Vol] 41 mg/dL above high threshold 6 - 23 [facility] [address] [place] Work Phone: Glucose [Mass/Vol] 201 mg/dL above high threshold 74 - 99 [facility] [address] [place] Work Phone: Laboratory - Hematology and Cell countson 07-02-2021 Erythrocyte distribution width (RBC) [Ratio] 14.1 % See Below [facility] [address] [place] Work Phone: Comment on above: Reference Range: 11. 5 - 14.5 Hematocrit (Bld) [Volume fraction] 33.6 % below low threshold See Below [facility] [address] [place] Work Phone: Comment on [...] 160 10*3/uL 150 - 450 [facility] [address] [place] Work Phone: RBC (Bld) [...] RACE VARIABLE FOR THE IDMS-TRACEABLE CREATININE METHODS.https://jasn.asnjournals.org/content/// ASN.9620326930 0.0 {/100_WBC} 0.0-0.0 [facility] [address] [place] Work Phone: Tacrolimuson 07-02-2021 Tacrolimus (Bld) [Mass/Vol] 7.6 ng/mL 2.0 - 15.0 [facility] [address] [place] Work Phone: Comment on above: NOTE: Result was obt ained using a chemiluminescent microparticle immunoassay (CMIA) on the [employer] i system.Optimal therapeutic ranges for immuno-suppressant drugs depend upon an individualpatient's current clinical state, type oforgan transplant, time post-transplant,co-administration of other immunosuppressants,and other clinical factors. The results ofthis test should be correlated with additionalclinical and laboratory data before changesin treatment regimens are made. Hemoglobin A1Con 07-01-2021 Glucose [Mass/Vol] 194 mg/dL [facility] [address] [place] Work Phone: HbA1c (Bld) [...] 13-18 <7.5 7-12 <8.0 0- 6 7.5-8.5 [employer]. Diabetes Care 33(S1), Mar 2009. Laboratory - Chemistry and C hemistry - challengeon 07-01-2021 Glucose [Mass/Vol] 188 mg/dL above high threshold 74 - 99 [facility] [address] [place] Work Phone: Glucose [Mass/Vol] [...] mmol/L 21 - 32 [facility] [address] [place] Work Phone: Creatinine [Mass/Vol] 1.99 mg/dL above high threshold See Below [facility] [address] [place] Work Phone: Comment on above: Reference Range: 0.5 0 - 1.30 Glucose [Mass/Vol] 227 mg/dL above high threshold 74 - 99 [facility] [address] [place] Work Phone: Glucose [Mass/Vol] 243 mg/dL above high threshold 74 - 99 [facility] [address] [place] Work Phone: Potassium [Moles/Vol] 4.0 mmol/L 3.5 - 5.3 [facility] [address] [place] Work Phone: Sodium [Moles/Vol] 141 mmol/L 136 - 145 [facility] [address] [place] Work Phone: Urea nitrogen [Mass/Vol] 38 mg/dL above high threshold 6 - 23 [facility] [address] [place] Work Phone: Laboratory - [...] below low threshold See Below [facility] [address] [place] Work Phone: Comment on above: Reference Range: 32. 0 - 36.0 MCV (RBC) [Entitic vol] 90 fL 80 - 100 [facility] [address] [place] Work Phone: Platelets (Bld) [#/Vol] 157 10*3/uL 150 - 450 [facility] [address] [place] Work Phone: RBC (Bld) [#/Vol] 3.83 {x10E12/L} below low threshold See Below [facility] [address] [place] Work Phone: Comment on above: Reference Range: 4.5 0 - 5.90 WBC (Bld) [#/Vol] 6.8 10*3/uL 4.4 - 11.3 [facility] [address] [place] Work Phone: No Panel Informationon 07-01 34 {mL/min/1.73m2} Abnormal >90 [facility] [address] [place] Work Phone: Comment on above: CALCULATIONS OF ERNST MATED GFR ARE PERFORMED USING THE 2020 CKD-EPI STUDY REFIT EQUATION WITHOUT THE RACE VARIABLE FOR THE IDMS-TRACEABLE CREATININE METHODS.https://jasn.asnjournals.org/content// ASN.9877670882 0.0 {/100_WBC} 0.0-0.0 [facility] [address] [place] Work Phone: Tacrolimuson 07-01-2021 Tacrolimus (Bld) [Mass/Vol] 9.3 ng/mL 2.0 - 15.0 [facility] [address] [place] Work Phone: Comment on above: NOTE: Result was obt ained using a chemiluminescent microparticle immunoassay (CMIA) on the [employer] i system.Optimal therapeutic ranges for immuno-suppressant drugs [...] high threshold 74 - 99 [facility] [address] [place] Work Phone: [phone] Glucose [Mass/Vol] 236 mg/dL above high threshold 74 - 99 [facility] [address] [place] Work Phone: [phone] Anion gap [Moles/Vol] 17 mmol/L 10 - 20 [facility] [address] [place] Work Phone: [phone] Calcium [Mass/Vol] 8.6 mg/dL 8.6 - 10.6 [facility] [address] [place] Work Phone: [phone] Chloride [Moles/Vol] 100 mmol/L 98 - 107 [facility] [address] [place] Work Phone: [phone] CO2 [Moles/Vol] 28 mmol/L 21 - 32 [facility] [address] [place] Work Phone: [phone] Creatinine [Mass/Vol] 2.26 mg/dL above high threshold See Below [facility] [address] [place] Work Phone: [phone] Comment on above: Reference Range: 0.5 0 - 1.30 Glucose [Mass/Vol] 205 mg/dL above high threshold 74 - 99 [facility] [address] [place] Work Phone: [phone] Potassium [Moles/Vol] 3.8 mmol/L 3.5 - 5.3 [facility] [address] [place] Work Phone: Sodium [Moles/Vol] 141 mmol/L 136 - 145 [facility] [facility] [address] [place] Work Phone: Urea nitrogen [Mass/Vol] 39 mg/dL above high threshold 6 - 23 [facility] [address] [place] Work Phone: Laboratory - Hematology and Cell countson 06-30-2021 Erythrocyte distribution width (RBC) [Ratio] 14.3 % See Below [facility] [address] [place] Work Phone: Comment on above: Reference Range: 11. 5 - 14.5 Hematocrit (Bld) [Volume fraction] 33.5 % below low threshold See Below [facility] [address] [place] Work Phone: Comment on above: Reference Range: 41. 0 - 52.0 Hemoglobin (Bld) [Mass/Vol] 10.5 g/dL below low threshold See Below [facility] [address] [place] Work Phone: Comment on above: Reference Range: 13. 5 - 17.5 MCHC (RBC) [Mass/Vol] 31.3 g/dL below low threshold See Below [facility] [address] [place] Work Phone: Comment on above: Reference Range: 32. 0 - 36.0 MCV (RBC) [Entitic vol] 91 fL 80 - 100 [facility] [address] [place] Work Phone: Platelets (Bld) [#/Vol] 141 10*3/uL below lo w threshold 150 - 450 [facility] [address] [place] Work Phone: RBC (Bld) [#/Vol] 3.70 {x10E12/L} below low threshold See Below [facility] [address] [place] Work Phone: Comment on above: Reference Range: 4.5 0 - 5.90 WBC (Bld) [#/Vol] 8.2 10*3/uL 4.4 - 11.3 [facility] [address] [place] Work Phone: No Panel Informationon 06-30 29 {mL/min/1.73m2} Abnormal >90 [facility] [address] [place] Work Phone: Comment on above: CALCULATIONS OF ERNST MATED GFR ARE PERFORMED USING THE 2020 CKD-EPI STUDY REFIT EQUATION WITHOUT THE RACE VARIABLE FOR THE IDMS-TRACEABLE CREATININE METHODS.https://jasn.asnjournals.org/content/early/ ASN.4761675419 0.0 {/100_WBC} 0.0-0.0 [facility] [address] [place] Work Phone: Tacrolimuson 06-30-2021 Tacrolimus (Bld) [Mass/Vol] 7.7 ng/mL 2.0 - 15.0 [facility] [address] [place] Work Phone: Comment on above: NOTE: Result was obt ained using a chemiluminescent microparticle immunoassay (CMIA) on the Service [employer] Work Dispatcher i system.Optimal therapeutic ranges for immuno-suppressant drugs [...] high threshold 74 - 99 [facility] [address] [place] Work Phone: [phone] Glucose [Mass/Vol] 283 mg/dL above high threshold 74 - 99 [facility] [address] [place] Work Phone: [phone] Anion gap [Moles/Vol] 16 mmol/L 10 - 20 [facility] [address] [place] Work Phone: [phone] Calcium [Mass/Vol] 8.7 mg/dL 8.6 - 10.6 [facility] [address] [place] Work Phone: [phone] Chloride [Moles/Vol] 104 mmol/L 98 - 107 [facility] [address] [place] Work Phone: [phone] CO2 [Moles/Vol] 28 mmol/L 21 - 32 [facility] [address] [place] Work Phone: [phone] Creatinine [Mass/Vol] 1.97 mg/dL above high threshold See Below [facility] [place] Work Phone: [phone] Comment on above: Reference Range: 0.5 0 - 1.30 Glucose [Mass/Vol] 185 mg/dL above high threshold 74 - 99 [facility] [address] [place] Work Phone: [phone] Potassium [Moles/Vol] 3.9 mmol/L 3.5 - 5.3 [facility] [address] [place] Work Phone: [phone] Sodium [Moles/Vol] 144 mmol/L 136 - 145 [facility] [address] [place] Work Phone: [phone] Urea nitrogen [Mass/Vol] 35 mg/dL above high threshold 6 - 23 [facility] [address] [place] Work Phone: [phone] Glucose [Mass/Vol] 186 mg/dL above high threshold 74 - 99 [facility] [address] [place] Work Phone: Laboratory - Hematology and Cell countson 06-29-2021 Erythrocyte distribution width (RBC) [Ratio] 14.3 % See Below [facility] [place] [facility] [address] [place] Work Phone: Comment on above: Reference Range: 11. 5 - 14.5 Hematocrit (Bld) [Volume fraction] 35.8 % below low threshold See Below [facility] [address] [place] Work Phone: Comment on above: Reference Range: 41. 0 - 52.0 Hemoglobin (Bld) [Mass/Vol] 11.0 g/dL below low threshold See Below [facility] [place] [facility] [place] [address] [place] Work Phone: Comment on above: Reference Range: 13. 5 - 17.5 MCHC (RBC) [Mass/Vol] 30.7 g/dL below low threshold See Below [facility] [address] [place] Work Phone: Comment on above: Reference Range: 32. 0 - 36.0 MCV (RBC) [Entitic vol] 90 fL 80 - 100 [facility] [address] [place] Work Phone: Platelets (Bld) [#/Vol] 142 10*3/uL below lo w threshold 150 - 450 [facility] [place] [address] [place] Work Phone: RBC (Bld) [#/Vol] 3.96 {x10E12/L} below low threshold See Below [facility] [address] [place] Work Phone: Comment on above: Reference Range: 4.5 0 - 5.90 WBC (Bld) [#/Vol] 7.0 10*3/uL 4.4 - 11.3 [facility] [address] [place] Work Phone: Magnesium, Serumon Magnesium [Mass/Vol] 1.80 mg/dL See Below [facility] [address] [place] Work Phone: Comment on above: Reference Range: 1.6 0 - 2.40 No Panel Informationon 06-29 34 {mL/min/1.73m2} Abnormal >90 [facility] [address] [place] Work Phone: Comment on above: CALCULATIONS OF ERNST MATED GFR ARE PERFORMED USING THE 2020 CKD-EPI STUDY REFIT EQUATION WITHOUT THE RACE VARIABLE FOR THE IDMS-TRACEABLE CREATININE METHODS.https://jasn.asnjournals.org/content/early// ASN.6554354487 0.0 {/100_WBC} 0.0-0.0 [facility] [address] [place] Work Phone: Tacrolimuson 06-29-2021 Tacrolimus (Bld) [Mass/Vol] 8.4 ng/mL 2.0 - 15.0 [facility] [address] [place] Work Phone: Comment on above: NOTE: Result was obt ained using a chemiluminescent microparticle immunoassay (CMIA) on the [employer] Work Dispatcher i system.Optimal therapeutic ranges for immuno-suppressant drugs [...] high threshold 74 - 99 [facility] [address] [place] Work Phone: Glucose [Mass/Vol] 215 mg/dL above high threshold 74 - 99 [facility] [address] [place] Work Phone: Anion gap [Moles/Vol] 14 mmol/L 10 - 20 [facility] [address] [place] Work Phone: [phone] Calcium [Mass/Vol] 8.5 mg/dL below low threshold 8.6 - 10.6 [facility] [address] [place] Work Phone: [phone] Chloride [Moles/Vol] 105 mmol/L 98 - 107 [facility] [address] [place] Work Phone: [phone] CO2 [Moles/Vol] 29 mmol/L 21 - 32 [facility] [address] [place] Work Phone: [phone] Creatinine [Mass/Vol] 1.96 mg/dL above high threshold See Below [facility] [address] [place] Work Phone: [phone] Comment on above: Reference Range: 0.5 0 - 1.30 Glucose [Mass/Vol] 159 mg/dL above high threshold 74 - 99 [facility] [address] [place] Work Phone: [phone] Potassium [Moles/Vol] 3.8 mmol/L 3.5 - 5.3 [facility] [address] [place] Work Phone: [phone] Sodium [Moles/Vol] 144 mmol/L 136 - 145 [facility] [place] [address] [place] Work Phone: [phone] Urea [...] [Ratio] 14.3 % See Below [facility] [address] [place] Work Phone: [phone] Comment on above: Reference Range: 11. 5 - 14.5 Hematocrit (Bld) [Volume fraction] 33.8 % below low threshold See Below [facility] [address] [place] Work Phone: Comment on above: Reference Range: 41. 0 - 52.0 Hemoglobin (Bld) [Mass/Vol] 10.4 g/dL below low threshold See Below [facility] [place] [facility] [address] [place] Work Phone: Comment on above: Reference Range: 13. 5 - 17.5 MCHC (RBC) [Mass/Vol] 30.8 g/dL below low threshold See Below [facility] [place] [facility] [address] [place] Work Phone: Comment on above: Reference Range: 32. 0 - 36.0 MCV (RBC) [Entitic vol] 90 fL 80 - 100 [facility] [address] [place] Work Phone: Platelets (Bld) [#/Vol] 133 10*3/uL below lo w threshold 150 - 450 [facility] [place] [facility] [address] [place] Work Phone: RBC (Bld) [#/Vol] 3.75 {x10E12/L} below low threshold See Below [facility] [address] [place] Work Phone: Comment on above: Reference Range: 4.5 0 - 5.90 WBC (Bld) [#/Vol] 5.7 10*3/uL 4.4 - 11.3 [facility] [address] [place] Work Phone: Lactate, Levelon 06-28-2021 Lactate [Moles/Vol] 0.6 mmol/L 0.4 - 2.0 [facility] [address] [place] Work Phone: Comment on above: [...] RACE VARIABLE FOR THE IDMS-TRACEABLE CREATININE METHODS.https://jasn.asnjournals.org/content/early/ ASN.0368214703 0.0 {/100_WBC} 0.0-0.0 [facility] [address] [place] Work Phone: Tacrolimuson 06-28-2021 Tacrolimus (Bld) [Mass/Vol] 10.4 ng/mL 2.0 - 15.0 [facility] [address] [place] Work Phone: Comment on above: NOTE: Result was obt ained using a chemiluminescent microparticle immunoassay (CMIA) on the Service [employer] Work Dispatcher i system.Optimal therapeutic ranges for immuno-suppressant drugs depend upon an individualpatient's current clinical state, type oforgan transplant, time post-transplant,co-administration of other immunosuppressants,and other clinical factors. The results ofthis test should be correlated with additionalclinical and laboratory data before changesin treatment regimens are made. Complete Blood Count + Diffe rentialon 06-27-2021 Basophils/100 WBC (Bld) 0.5 % 0.0 - 2.0 [facility] [address] [place] Work Phone: Erythrocyte distribution width (RBC) [Ratio] 14.3 % See Below [facility] [address] [place] Work Phone: Comment on above: Reference Range: 11. 5 - 14.5 Hematocrit (Bld) [Volume fraction] 33.6 % below low threshold See Below [facility] [address] [place] Work Phone: Comment on above: Reference Range: 41. 0 - 52.0 Hemoglobin (Bld) [Mass/Vol] 10.3 g/dL below low threshold See Below [facility] [address] [place] Work Phone: Comment on above: Reference Range: 13. 5 - 17.5 Lymphocytes/100 WBC (Bld) 13.1 % See Below [facility] [address] [place] Work Phone: [phone] Comment on above: Reference Range: 13. 0 - 44.0 MCHC (RBC) [Mass/Vol] 30.7 g/dL below low threshold See Below [facility] [address] [place] Work Phone: [phone] Comment on above: Reference Range: 32. 0 - 36.0 MCV (RBC) [Entitic vol] 92 fL 80 - 100 [facility] [address] [place] Work Phone: [phone] Monocytes/100 WBC (Bld) 9.0 % 2.0 - 10.0 [facility] [address] [place] Work Phone: [phone] Neutrophils/100 WBC (Bld) 72.5 % See Below [facility] [address] [place] Work Phone: [phone] Comment on above: Reference Range: 40. 0 - 80.0 Platelets (Bld) [#/Vol] 137 10*3/uL below lo w threshold 150 - 450 [facility] [address] [place] Work Phone: [phone] RBC (Bld) [#/Vol] 3.67 {x10E12/L} below low threshold See Below [facility] [address] [place] Work Phone: [phone] Comment on above: Reference Range: 4.5 0 - 5.90 WBC (Bld) [#/Vol] 6.4 10*3/uL 4.4 - 11.3 [facility] [address] [place] Work Phone: [phone] Complete Blood Count + Differential 0.03 {x10E9/L} See Below [facility] [address] [place] Work Phone: Comment on [...] Wu on 06-27-2021 Glucose [Mass/Vol] 263 mg/dL [facility] Comment on above: Random Glucose Refer ence [...] 57 U/L 33 - 136 [facility] [address] [place] Work Phone: ALT With P-5'-P [Catalytic activity/Vol] 4 U/L below low threshold 10 - 52 [facility] [address] [place] Work Phone: Comment on above: Patients treated wit h Sulfasalazine may generate falsely decreased results for ALT. Anion gap [Moles/Vol] 18 mmol/L 10 - 20 [facility] [address] [place] Work Phone: AST With P-5'-P [Catalytic activity/Vol] 10 U/L 9 - 39 [facility] [address] [place] Work Phone: Bilirubin [Mass/Vol] 0.3 mg/dL 0.0 - 1.2 [facility] [address] [place] Work Phone: Calcium [Mass/Vol] 8.3 mg/dL below low threshold 8.6 - 10.6 [facility] [address] [place] Work Phone: Chloride [Moles/Vol] [...] high threshold 74 - 99 [facility] [address] [place] Work Phone: Potassium [Moles/Vol] 3.7 mmol/L 3.5 - 5.3 [facility] [address] [place] Work Phone: Protein [Mass/Vol] 5.7 g/dL below low threshold 6.4 - 8.2 [facility] [address] [place] Work Phone: Sodium [Moles/Vol] 142 mmol/L 136 - 145 [facility] [address] [place] Work Phone: Urea nitrogen [Mass/Vol] 37 mg/dL above high threshold 6 - 23 [facility] [address] [place] Work Phone: Glucose [Mass/Vol] 178 mg/dL above high threshold 74 - 99 [facility] [address] [place] Work Phone: Glucose [Mass/Vol] [...] RACE VARIABLE FOR THE IDMS-TRACEABLE CREATININE METHODS.https://jasn.asnjournals.org/content// ASN.2402998347 No Panel InformationOrdered By: Yoshi Wu on 06-27-2021 Bedside Glucose Comment Glu2: cleaned [facility] Automated erythrocytes count in urine sediment (number/area)Ordered By: Audra Quinteros on 06-26-2021 RBC Auto (Urine sed) [#/Area] 0-1 [HPF] [facility] Automated leukocytes count i n urine sediment (number/area)Ordered By: Audra Quinteros on 06-26-2021 WBC Auto (Urine sed) [#/Area] 0-1 [HPF] [facility] Bilirubin Test strip Ql (U)O rdered By: Audra Quinteros on 06-26-2021 Bilirubin Ql (U) Negative Negative [facility] COVID-19 Positive/NegativeOr dered By: Omid Myrick on 06-26-2021 SARS-CoV-2 (COVID-19) N gene JOYCE+probe Ql (Resp) Negative Negative [facility] Comment on above: Testing for SARS-CoV -2 by RT-PCRThis test was developed and its performance characteristics determined by [facility] ([employer]) and validated at the [facility]. This test has not been FDA [...] Quinteros on 06-26-2021 Color (U) Yellow Yellow [facility] Creatinine [Mass/volume] in UrineOrdered By: Audra Quinteros on 06-26-2021 Creatinine (U) [Mass/Vol] 71.5 mg/dL [facility] Comment on above: No reference range e stablished Creatinine and Glomerular fi ltration rate.predicted panel (S/P/Bld)Ordered By: Audra Quinteros on 06-26-2021 Creatinine [Mass/Vol] 1.99 mg/dL 0.64-1.27 [facility] Estimated glomerular filtrat ion rate (GFR) non- AmericanOrdered By: Audra Quinteros on 06-26-2021 GFR/1.73 sq M.predicted among non-blacks MDRD (S/P/Bld) [Vol rate/Area] 33 mL/Min [facility] Ketones Auto test strip (U) [Mass/Vol]Ordered By: Audra Quinteros on 06-26-2021 Ketones (U) [Mass/Vol] Negative Negative [facility] Laboratory - Microbiology an d Antimicrobial susceptibilityOrdered By: Omid Myrick on 06-26-2021 SARS-CoV-2 (COVID-19) RNA JOYCE+probe Ql (Unsp spec) N/A [facility] Laboratory - UrinalysisOrder ed By: Audra Quinteros on 06-26-2021 Hyaline casts LM Ql (Urine sed) 0-8 [LPF] [facility] Nitrite Test strip Ql (U)Ord ered By: Audra Quinteros on 06-26-2021 Nitrite Ql (U) Negative Negative [facility] No Panel InformationOrdered By: Audra Quinteros on 06-26-2021 Estimated GFR () 40 mL/Min [facility] Comment on above: GFR estimated refere nce range: According to KDOQI guidelines, <60 ml/min/1.73m2 is sufficient to diagnose a patient with chronic kidney disease. Pharmacy Creatinine Clearance (Chem 39.80 [facility] Protein Auto test strip (U) [Mass/Vol]Ordered By: Audra Quinteros on 06-26-2021 Protein (U) [Mass/Vol] 300 mg/dL Negative [facility] Serum or plasma calcium abhijit urement (mass/volume)Ordered By: Audra Quinteros on 06-26-2021 Calcium [Mass/Vol] 8.9 mg/dL 8.2-10.2 [facility] Serum or plasma chloride marylin surement (moles/volume)Ordered By: Audra Quinteros on 06-26-2021 Chloride [Moles/Vol] 105 mmol/L 95-114 [facility] Serum or plasma glucose abhijit urement (mass/volume)Ordered By: Audra Quinteros on 06-26-2021 Glucose [Mass/Vol] 194 mg/dL 70-100 [facility] Comment on above: ADA recommended refe rence rangeRandom Glucose Reference Range is dependent on time and content of last meal. Glucose of more than 200 mg/dL in a nonstressed, ambulatory subject supports the diagnosis of Diabetes Mellitus. Serum or plasma potassium me asurement (moles/volume)Ordered By: Omid Myrick on 06-26-2021 Potassium [Moles/Vol] 4.0 mmol/L 3.5-5.1 [facility] Serum or plasma sodium measu rement (moles/volume)Ordered By: Audra Quinteros on 06-26-2021 Sodium [Moles/Vol] 140 mmol/L 136-146 [facility] Serum or plasma total carbon dioxide measurement (moles/volume)Ordered By: Audra Quinteros on 06-26-2021 CO2 [Moles/Vol] 23.8 mmol/L 22.0-30.0 [facility] Serum or plasma urea nitroge n measurement (mass/volume)Ordered By: Audra Quinteros on 06-26-2021 Urea nitrogen [Mass/Vol] 39 mg/dL 9-23 [facility] Specific gravity Auto test s trip (U) [Rel density]Ordered By: Audra Quinteros on 06-26-2021 Specific gravity (U) [Rel density] 1.015 1.001-1.03 0 [facility] Squamous epithelial cells de tection in urine sediment by light microscopyOrdered By: Audra Quinteros on 06-26-2021 Epithelial cells.squamous LM Ql (Urine sed) None seen [HPF] [facility] Urine bacteria detection by automated methodOrdered By: Audra Quinteros on 06-26-2021 Bacteria Auto Ql (U) None seen None Seen [facility] Urine clarity by refractomet ry automatedOrdered By: Audra Quinteros on 06-26-2021 Clarity Refractometry automated (U) Clear Clear [facility] Urine glucose measurement by automated test strip (mass/volume)Ordered By: Audra Quinteros on 06-26-2021 Glucose Auto test strip (U) [Mass/Vol] Normal mg/dL Normal [facility] Urine hemoglobin detection b y automated test stripOrdered By: Audra Quinteros on 06-26-2021 Hemoglobin Auto test strip Ql (U) Negative Negative [facility] Urine leukocyte esterase det ection by automated test stripOrdered By: Audra Quinteros on 06-26-2021 Leukocyte esterase Auto test strip Ql (U) Negative Negative [facility] Urine sodium measurement (mo les/volume)Ordered By: Audra Quinteros on 06-26-2021 Sodium (U) [Moles/Vol] 94 mmol/L [facility] Comment on above: No reference range e stablished Urobilinogen Auto test strip (U) [Mass/Vol]Ordered By: Audra Quinteros on 06-26-2021 Urobilinogen (U) [Mass/Vol] Normal mg/dL Normal [facility] pH Auto test strip (U)Ordere d By: Audra Quinteros on 06-26-2021 pH (U) 5.5 [pH] 5.0-9.0 [facility] Activated partial thrombopla stin time (aPTT) in platelet poor plasma by coagulation aOrdered By: Andrew Hernández on 06-25-2021 aPTT Coag (PPP) [Time] 33.4 s 25.1-36.5 [facility] Albumin [Mass/volume] in Ser um or PlasmaOrdered By: Andrew Hernández on 06-25-2021 Albumin [Mass/Vol] 3.4 g/dL 3.2-5.5 [facility] Basophils Auto (Bld) [#/Vol] Ordered By: Andrew Hernández on 06-25-2021 Basophils (Bld) [#/Vol] 0.0 10*3/uL 0.0-0.2 [facility] Basophils/100 WBC Auto (Bld) Ordered By: Andrew Hernández on 06-25-2021 Basophils/100 WBC (Bld) 0.6 % [facility] Blood hemoglobin measurement (mass/volume)Ordered By: Andrew Hernández on 06-25-2021 Hemoglobin (Bld) [Mass/Vol] 11.8 g/dL 13.0-17.0 [facility] Blood leukocytes automated c ount (number/volume)Ordered By: Andrew Hernández on 06-25-2021 WBC (Bld) [#/Vol] 7.5 10*3/uL 4.5-11.0 [facility] COVID-19 SOFIAOrdered By: Prasanna Hernández on 06-25-2021 SARS-CoV+SARS-CoV-2 (COVID-19) Ag IA.rapid Ql (Resp) Negative Negative [facility] Comment on above: This is a duplicate Jessi SARS Antigen (GABI) result to be used for statistical tracking purpose only. Creatinine and Glomerular fi ltration rate.predicted panel (S/P/Bld)Ordered By: Andrew Hernández on 06-25-2021 Creatinine [Mass/Vol] 2.25 mg/dL 0.64-1.27 [facility] Eosinophils Auto (Bld) [#/Vo l]Ordered By: Andrew Hernández on 06-25-2021 Eosinophils (Bld) [#/Vol] 0.3 10*3/uL 0.0-0.45 [facility] Eosinophils/100 WBC Auto (Bl d)Ordered By: Andrew Hernández on 06-25-2021 Eosinophils/100 WBC (Bld) 4.6 % [facility] Erythrocyte distribution wid th Auto (RBC) [Ratio]Ordered By: Andrew Hernández on 06-25-2021 Erythrocyte distribution width (RBC) [Ratio] 16.1 % 12.0-14.8 [facility] Erythrocyte sedimentation ra te by Photometric methodOrdered By: Andrew Hernández on 06-25-2021 ESR Photometric method (Bld) [Velocity] 39 mm/hr 0-19 [facility] Estimated glomerular filtrat ion rate (GFR) non- AmericanOrdered By: Andrew Hernández on 06-25-2021 GFR/1.73 sq M.predicted among non-blacks MDRD (S/P/Bld) [Vol rate/Area] 28 mL/Min [facility] Globulin Calc (S) [Mass/Vol] Ordered By: Andrew Hernández on 06-25-2021 Globulin (S) [Mass/Vol] 3.2 g/dL [facility] Hematocrit Auto (Bld) [Volum e fraction]Ordered By: Andrew Hernández on 06-25-2021 Hematocrit (Bld) [Volume fraction] 36.2 % 38.8-50.0 [facility] Laboratory - Chemistry and C hemistry - challengeOrdered By: Andrew Hernández on 06-25-2021 Natriuretic peptide B (Bld) [Mass/Vol] 165.0 pg/mL 5-100 [facility] Laboratory - CoagulationOrde red By: Andrew Hernández on 06-25-2021 PT Coag (PPP) [Time] 11.9 s 9.0-12.9 [facility] Laboratory - Hematology and Cell countsOrdered By: Andrew Hernández on 06-25-2021 Nucleated RBC/100 WBC (Bld) [Ratio] 0.1 % 0-0.5 [facility] Lymphocytes Auto (Bld) [#/Vo l]Ordered By: Andrew Hernández on 06-25-2021 Lymphocytes (Bld) [#/Vol] 1.0 10*3/uL 1.00-4.8 [facility] Lymphocytes/100 WBC Auto (Bl d)Ordered By: Andrew Hernández on 06-25-2021 Lymphocytes/100 WBC (Bld) 12.9 % [facility] MCH Auto (RBC) [Entitic mass ]Ordered By: Andrew Hernández on 06-25-2021 MCH (RBC) [Entitic mass] 28.1 pg 27.5-35.2 [facility] MCHC Auto (RBC) [Mass/Vol]Or dered By: Andrew Hernández on 06-25-2021 MCHC (RBC) [Mass/Vol] 32.7 g/dL 32.5-35.6 [facility] MCV Auto (RBC) [Entitic vol] Ordered By: Andrew Hernández on 06-25-2021 MCV (RBC) [Entitic vol] 86.0 fL 83.5-101 [facility] Monocytes Auto (Bld) [#/Vol] Ordered By: Andrew Hernández on 06-25-2021 Monocytes (Bld) [#/Vol] 0.5 10*3/uL 0.0-0.8 [facility] Monocytes/100 WBC Auto (Bld) Ordered By: Andrew Hernández on 06-25-2021 Monocytes/100 WBC (Bld) 7.3 % [facility] Neutrophils Auto (Bld) [#/Vo l]Ordered By: Andrew Hernández on 06-25-2021 Neutrophils (Bld) [#/Vol] 5.6 10*3/uL 1.8-7.7 [facility] Neutrophils/100 WBC Auto (Bl d)Ordered By: Andrew Hernández on 06-25-2021 Neutrophils/100 WBC (Bld) 74.6 % [facility] No Panel InformationOrdered By: Andrew Hernández on 06-25-2021 SARS Antigen (LFIA) [facility] Estimated GFR () 34 mL/Min [facility] Comment on above: GFR estimated refere nce range: According to KDOQI guidelines, <60 ml/min/1.73m2 is sufficient to diagnose a patient with chronic kidney disease. Pharmacy Creatinine Clearance (Chem 365.00 [facility] Platelet mean volume Auto (B ld) [Entitic vol]Ordered By: Andrew Hernández on 06-25-2021 Platelet mean volume (Bld) [Entitic vol] 10.0 fL 6.6-10.1 [facility] Platelet poor plasma interna tional normalized ratio (INR) by coagulation assay (relatOrdered By: Andrew Hernández on 06-25-2021 INR Coag (PPP) [Relative time] 1.1 {INR} [facility] Comment on above: INR Therapeutic Rang [...] 06-25-2021 Platelets (Bld) [#/Vol] 171 10*3/uL 150-450 [facility] Comment on above: Delta: 119 on 04/05/ 22-0453 Protein [Mass/volume] in Ser um or PlasmaOrdered By: Andrew Hernández on 06-25-2021 Protein [Mass/Vol] 6.6 g/dL 6.1-7.9 [facility] RBC Auto (Bld) [#/Vol]Ordere d By: Andrew Hernández on 06-25-2021 RBC (Bld) [#/Vol] 4.21 10*6/uL 3.90-5.60 [facility] Serum or plasma C reactive p rotein measurement (mass/volume)Ordered By: Andrew Hernández on 06-25-2021 CRP [Mass/Vol] 0.9 mg/dL 0.0-1.0 [facility] Serum or plasma alanine lopez otransferase measurement without P-5'-P (enzymatic activiOrdered By: Andrew Hernández on 06-25-2021 ALT No additional P-5'-P [Catalytic activity/Vol] 13 U/L 10-60 [facility] Serum or plasma albumin/glob ulin mass ratioOrdered By: Andrew Hernández on 06-25-2021 Albumin/Globulin [Mass ratio] 1.1 {ratio} [facility] Serum or plasma alkaline cande sphatase measurement (enzymatic activity/volume)Ordered By: Andrew Hernández on 06-25-2021 ALP [Catalytic activity/Vol] 57 U/L 32-92 [facility] Serum or plasma aspartate am inotransferase measurement (enzymatic activity/volume)Ordered By: Andrew Hernández on 06-25-2021 AST [Catalytic activity/Vol] 15 U/L 10-42 [facility] Serum or plasma calcium abhijit urement (mass/volume)Ordered By: Andrew Hernández on 06-25-2021 Calcium [Mass/Vol] 9.2 mg/dL 8.2-10.2 [facility] Serum or plasma chloride marylin surement (moles/volume)Ordered By: Andrew Hernández on 06-25-2021 Chloride [Moles/Vol] 106 mmol/L 95-114 [facility] Serum or plasma glucose abhijit urement (mass/volume)Ordered By: Andrew Hernández on 06-25-2021 Glucose [Mass/Vol] 177 mg/dL 70-100 [facility] Comment on above: ADA recommended refe rence rangeRandom Glucose Reference Range is dependent on time and content of last meal. Glucose of more than 200 mg/dL in a nonstressed, ambulatory subject supports the diagnosis of Diabetes Mellitus. Serum or plasma potassium me asurement (moles/volume)Ordered By: Andrew Hernández on 06-25-2021 Potassium [Moles/Vol] 4.2 mmol/L 3.5-5.1 [facility] Serum or plasma sodium measu rement (moles/volume)Ordered By: Andrew Hernández on 06-25-2021 Sodium [Moles/Vol] 142 mmol/L 136-146 [facility] Serum or plasma total biliru bin measurement (mass/volume)Ordered By: Andrew Hernández on 06-25-2021 Bilirubin [Mass/Vol] 0.4 mg/dL 0.3-1.2 [facility] Serum or plasma total carbon dioxide measurement (moles/volume)Ordered By: Andrew Hernández on 06-25-2021 CO2 [Moles/Vol] 24.1 mmol/L 22.0-30.0 [facility] Serum or plasma urea nitroge n measurement (mass/volume)Ordered By: Andrew Hernández on 06-25-2021 Urea nitrogen [Mass/Vol] 41 mg/dL 9-23 [facility] Troponin I.cardiac [Mass/vol ume] in Serum or Plasma by High sensitivity methodOrdered By: Andrew Hernández on 06-25-2021 Troponin I.cardiac High sensitivity method [Mass/Vol] 12 pg/mL 0-20 [facility] Albumin [Mass/volume] in Ser um or PlasmaOrdered By: Julee Davies on 06-24-2021 Albumin [Mass/Vol] 2.9 g/dL 3.2-5.5 [facility] Basophils Auto (Bld) [#/Vol] Ordered By: Julee Davies on 06-24-2021 Basophils (Bld) [#/Vol] 0.0 10*3/uL 0.0-0.2 [facility] Basophils/100 WBC Auto (Bld) Ordered By: Julee Davies on 04-05-2022 Basophils/100 WBC (Bld) 0.6 % [facility] Blood hemoglobin measurement (mass/volume)Ordered By: Julee Davies on 06-24-2021 Hemoglobin (Bld) [Mass/Vol] 10.8 g/dL 13.0-17.0 [facility] Blood leukocytes automated c ount (number/volume)Ordered By: Julee Davies on 06-24-2021 WBC (Bld) [#/Vol] 6.6 10*3/uL 4.5-11.0 [facility] Creatinine and Glomerular fi ltration rate.predicted panel (S/P/Bld)Ordered By: Julee Davies on 06-24-2021 Creatinine [Mass/Vol] 2.17 mg/dL 0.64-1.27 [facility] Eosinophils Auto (Bld) [#/Vo l]Ordered By: Julee Davies on 06-24-2021 Eosinophils (Bld) [#/Vol] 0.3 10*3/uL 0.0-0.45 [facility] Eosinophils/100 WBC Auto (Bl d)Ordered By: Julee Davies on 06-24-2021 Eosinophils/100 WBC (Bld) 5.2 % [facility] Erythrocyte distribution wid th Auto (RBC) [Ratio]Ordered By: Julee Davies on 06-24-2021 Erythrocyte distribution width (RBC) [Ratio] 15.8 % 12.0-14.8 [facility] Estimated glomerular filtrat ion rate (GFR) non- AmericanOrdered By: Julee Davies on 06-24-2021 GFR/1.73 sq M.predicted among non-blacks MDRD (S/P/Bld) [Vol rate/Area] 30 mL/Min [facility] Globulin Calc (S) [Mass/Vol] Ordered By: Julee Davies on 06-24-2021 Globulin (S) [Mass/Vol] 2.4 g/dL [facility] Hematocrit Auto (Bld) [Volum e fraction]Ordered By: Julee Davies on 06-24-2021 Hematocrit (Bld) [Volume fraction] 33.0 % 38.8-50.0 [facility] Laboratory - Chemistry and C hemistry - challengeOrdered By: Julee Davies on 06-24-2021 Magnesium [Mass/Vol] 1.9 mg/dL 1.6-2.6 [facility] Natriuretic peptide B (Bld) [Mass/Vol] 224.0 pg/mL 5-100 [facility] Laboratory - Hematology and Cell countsOrdered By: Julee Davies on 06-24-2021 Nucleated RBC/100 WBC (Bld) [Ratio] 0.1 % 0-0.5 [facility] Lymphocytes Auto (Bld) [#/Vo l]Ordered By: Julee Davies on 06-24-2021 Lymphocytes (Bld) [#/Vol] 0.8 10*3/uL 1.00-4.8 [facility] Lymphocytes/100 WBC Auto (Bl d)Ordered By: Julee Davies on 06-24-2021 Lymphocytes/100 WBC (Bld) 11.4 % [facility] MCH Auto (RBC) [Entitic mass ]Ordered By: Julee Davies on 06-24-2021 MCH (RBC) [Entitic mass] 27.7 pg 27.5-35.2 [facility] MCHC Auto (RBC) [Mass/Vol]Or dered By: Julee Davies on 06-24-2021 MCHC (RBC) [Mass/Vol] 32.7 g/dL 32.5-35.6 [facility] MCV Auto (RBC) [Entitic vol] Ordered By: Julee Davies on 06-24-2021 MCV (RBC) [Entitic vol] 84.6 fL 83.5-101 [facility] Monocytes Auto (Bld) [#/Vol] Ordered By: Julee Davies on 06-24-2021 Monocytes (Bld) [#/Vol] 0.5 10*3/uL 0.0-0.8 [facility] Monocytes/100 WBC Auto (Bld) Ordered By: Julee Davies on 06-24-2021 Monocytes/100 WBC (Bld) 7.4 % [facility] Neutrophils Auto (Bld) [#/Vo l]Ordered By: Julee Davies on 06-24-2021 Neutrophils (Bld) [#/Vol] 5.0 10*3/uL 1.8-7.7 [facility] Neutrophils/100 WBC Auto (Bl d)Ordered By: Julee Davies on 06-24-2021 Neutrophils/100 WBC (Bld) 75.4 % [facility] No Panel InformationOrdered By: Julee Davies on 06-24-2021 Estimated GFR () 36 mL/Min [facility] Comment on above: GFR estimated refere nce range: According to KDOQI guidelines, <60 ml/min/1.73m2 is sufficient to diagnose a patient with chronic kidney disease. Pharmacy Creatinine Clearance (Chem N/A [facility] Platelet mean volume Auto (B ld) [Entitic vol]Ordered By: Julee Davies on 06-24-2021 Platelet mean volume (Bld) [Entitic vol] 9.8 fL 6.6-10.1 [facility] Platelets Auto (Bld) [#/Vol] Ordered By: Julee Davies on 06-24-2021 Platelets (Bld) [#/Vol] 119 10*3/uL 150-450 [facility] Protein [Mass/volume] in Ser um or PlasmaOrdered By: Julee Davies on 06-24-2021 Protein [Mass/Vol] 5.3 g/dL 6.1-7.9 [facility] RBC Auto (Bld) [#/Vol]Ordere d By: Julee Davies on 06-24-2021 RBC (Bld) [#/Vol] 3.90 10*6/uL 3.90-5.60 [facility] Serum or plasma alanine lopez otransferase measurement without P-5'-P (enzymatic activiOrdered By: Julee Davies on 06-24-2021 ALT No additional P-5'-P [Catalytic activity/Vol] 7 U/L 10-60 [facility] Serum or plasma albumin/glob ulin mass ratioOrdered By: Julee Davies on 06-24-2021 Albumin/Globulin [Mass ratio] 1.2 {ratio} [facility] Serum or plasma alkaline cande sphatase measurement (enzymatic activity/volume)Ordered By: Julee Davies on 06-24-2021 ALP [Catalytic activity/Vol] 56 U/L 32-92 [facility] Serum or plasma aspartate am inotransferase measurement (enzymatic activity/volume)Ordered By: Julee Davies on 06-24-2021 AST [Catalytic activity/Vol] 13 U/L 10-42 [facility] Serum or plasma calcium abhijit urement (mass/volume)Ordered By: Julee Davies on 06-24-2021 Calcium [Mass/Vol] 8.9 mg/dL 8.2-10.2 [facility] Serum or plasma chloride marylin surement (moles/volume)Ordered By: Julee Davies on 06-24-2021 Chloride [Moles/Vol] 109 mmol/L 95-114 [facility] Serum or plasma glucose abhijit urement (mass/volume)Ordered By: Julee Davies on 06-24-2021 Glucose [Mass/Vol] 160 mg/dL 70-100 [facility] Comment on above: ADA recommended refe rence rangeRandom Glucose Reference Range is dependent on time and content of last meal. Glucose of more than 200 mg/dL in a nonstressed, ambulatory subject supports the diagnosis of Diabetes Mellitus. Serum or plasma potassium me asurement (moles/volume)Ordered By: Julee Davies on 06-24-2021 Potassium [Moles/Vol] 4.1 mmol/L 3.5-5.1 [facility] Serum or plasma sodium measu rement (moles/volume)Ordered By: Julee Davies on 06-24-2021 Sodium [Moles/Vol] 144 mmol/L 136-146 [facility] Serum or plasma total biliru bin measurement (mass/volume)Ordered By: Julee Davies on 06-24-2021 Bilirubin [Mass/Vol] 0.5 mg/dL 0.3-1.2 [facility] Serum or plasma total carbon dioxide measurement (moles/volume)Ordered By: Julee Davies on 06-24-2021 CO2 [Moles/Vol] 25.7 mmol/L 22.0-30.0 [facility] Serum or plasma urea nitroge n measurement (mass/volume)Ordered By: Julee Davies on 06-24-2021 Urea nitrogen [Mass/Vol] 43 mg/dL 9- [facility] Tacrolimus [Mass/volume] in BloodOrdered By: Julee Davies on 06-24-2021 Tacrolimus (Bld) [Mass/Vol] 8.1 ng/mL [facility] Comment on above: This test was vane christine and its performance characteristicsdetermined by [facility]. It has not been cleared orapproved by the Food and Drug Administration. Trough (immediately following transplant) 15.0 Trough (steady state, 2 weeks or more after transplant): 3.0 - 8.0 Performed by LC-MS/MS technology.Performed at: [address] [id number] Director: Mynor Nixon MD, Phone: [phone] Albumin [Mass/volume] in Ser um or PlasmaOrdered By: Julee Davies on 05-27-2021 Albumin [Mass/Vol] 3.1 g/dL 3.2-5.5 [facility] Basophils Auto (Bld) [#/Vol] Ordered By: Julee Davies on 05-27-2021 Basophils (Bld) [#/Vol] 0.0 10*3/uL 0.0-0.2 [facility] Basophils/100 WBC Auto (Bld) Ordered By: Julee Davies on 05-27-2021 Basophils/100 WBC (Bld) 0.7 % [facility] Blood hemoglobin measurement (mass/volume)Ordered By: Julee Davies on 05-27-2021 Hemoglobin (Bld) [Mass/Vol] 11.4 g/dL 13.0-17.0 [facility] Blood leukocytes automated c ount (number/volume)Ordered By: Julee Davies on 05-27-2021 WBC (Bld) [#/Vol] 6.1 10*3/uL 4.5-11.0 [facility] Cholesterol [Mass/volume] in Serum or PlasmaOrdered By: Julee Davies on 05-27-2021 Cholesterol [Mass/Vol] 129 mg/dL 140-200 [facility] Comment on above: Chol less than 200 m g/dl low riskChol 201-239 mg/dl borderline riskChol 240 mg/dl and greater high risk Cholesterol in LDL Calc [Mas s/Vol]Ordered By: Julee Davies on 05-27-2021 Cholesterol in LDL [Mass/Vol] 67 mg/dL 0-100 [facility] Comment on above: LDL ATP III CLASSIFI CATIONLDL less than 100 mg/dL OptimalLDL 100-129 mg/dL Near or above optimalLDL 130-159 mg/dL Borderline highLDL 160-189 mg/dL HighLDL greater than 189 mg/dL Very high Cholesterol in VLDL Calc [Ma ss/Vol]Ordered By: Julee Davies on 05-27-2021 Cholesterol in VLDL [Mass/Vol] 27 mg/dL [facility] Creatinine and Glomerular fi ltration rate.predicted panel (S/P/Bld)Ordered By: Julee Davies on 05-27-2021 Creatinine [Mass/Vol] 1.86 mg/dL 0.64-1.27 [facility] Eosinophils Auto (Bld) [#/Vo l]Ordered By: Julee Davies on 05-27-2021 Eosinophils (Bld) [#/Vol] 0.2 10*3/uL 0.0-0.45 [facility] Eosinophils/100 WBC Auto (Bl d)Ordered By: Julee Davies on 05-27-2021 Eosinophils/100 WBC (Bld) 3.7 % [facility] Erythrocyte distribution wid th Auto (RBC) [Ratio]Ordered By: Julee Davies on 05-27-2021 Erythrocyte distribution width (RBC) [Ratio] 14.9 % 12.0-14.8 [facility] Estimated glomerular filtrat ion rate (GFR) non- AmericanOrdered By: Julee Davies on 05-27-2021 GFR/1.73 sq M.predicted among non-blacks MDRD (S/P/Bld) [Vol rate/Area] 35 mL/Min [facility] Globulin Calc (S) [Mass/Vol] Ordered By: Julee Davies on 05-27-2021 Globulin (S) [Mass/Vol] 2.9 g/dL [facility] Glucose mean value [Mass/vol ume] in Blood Estimated from glycated hemoglobinOrdered By: Julee Davies on 05-27-2021 Average glucose Estimated from glycated hemoglobin (Bld) [Mass/Vol] 209 mg/dL [facility] Hematocrit Auto (Bld) [Volum e fraction]Ordered By: Julee Davies on 05-27-2021 Hematocrit (Bld) [Volume fraction] 34.1 % 38.8-50.0 [facility] Hemoglobin A1c percentageOrd ered By: Julee Davies on 05-27-2021 HbA1c (Bld) [Mass fraction] 8.9 % 4.3-5.6 [facility] Comment on above: Increased risk for d iabetes: 5.7 - 6.4diabetes: >6.4glycemic control for adults with diabetes: <7.0 Laboratory - Hematology and Cell countsOrdered By: Julee Davies on 05-27-2021 Nucleated RBC/100 WBC (Bld) [Ratio] 0.2 % 0-0.5 [facility] Lymphocytes Auto (Bld) [#/Vo l]Ordered By: Julee Davies on 05-27-2021 Lymphocytes (Bld) [#/Vol] 1.1 10*3/uL 1.00-4.8 [facility] Lymphocytes/100 WBC Auto (Bl d)Ordered By: Julee Davies on 05-27-2021 Lymphocytes/100 WBC (Bld) 17.9 % [facility] MCH Auto (RBC) [Entitic mass ]Ordered By: Julee Davies on 05-27-2021 MCH (RBC) [Entitic mass] 28.3 pg 27.5-35.2 [facility] MCHC Auto (RBC) [Mass/Vol]Or dered By: Julee Davies on 05-27-2021 MCHC (RBC) [Mass/Vol] 33.5 g/dL 32.5-35.6 [facility] MCV Auto (RBC) [Entitic vol] Ordered By: Julee Davies on 05-27-2021 MCV (RBC) [Entitic vol] 84.5 fL 83.5-101 [facility] Monocytes Auto (Bld) [#/Vol] Ordered By: Julee Davies on 05-27-2021 Monocytes (Bld) [#/Vol] 0.5 10*3/uL 0.0-0.8 [facility] Monocytes/100 WBC Auto (Bld) Ordered By: Julee Davies on 05-27-2021 Monocytes/100 WBC (Bld) 7.9 % [facility] Neutrophils Auto (Bld) [#/Vo l]Ordered By: Julee Davies on 05-27-2021 Neutrophils (Bld) [#/Vol] 4.3 10*3/uL 1.8-7.7 [facility] Neutrophils/100 WBC Auto (Bl d)Ordered By: Julee Davies on 05-27-2021 Neutrophils/100 WBC (Bld) 69.8 % [facility] No Panel InformationOrdered By: Julee Davies on 05-27-2021 25-Hydroxy Vitamin D Total 23.8 ng/mL 30-100 [facility] Comment on above: VITAMIN D STATUS 25( [place])VITAMIN D RANGE (ng/mL) Deficient <20 Insufficient 20 to <30Sufficient 30 to 100Reference: Ely MF,Brad NC, Kristy ORTEGA, et al. Evaluation,treatment, and prevention of vitamin D deficiency; an Endocrine Society clinical practice guideline. JCEM. 2010; 96(7):1911-30. Estimated GFR () 43 mL/Min [facility] Comment on above: GFR estimated refere nce range: According to KDOQI guidelines, <60 ml/min/1.73m2 is sufficient to diagnose a patient with chronic kidney disease. Pharmacy Creatinine Clearance (Chem N/A [facility] Platelet Estimate Decreased Normal [facility] Platelet Morphology Comment Normal Normal [facility] Platelet mean volume Auto (B ld) [Entitic vol]Ordered By: Julee Davies on 05-27-2021 Platelet mean volume (Bld) [Entitic vol] 10.6 fL 6.6-10.1 [facility] Platelets Auto (Bld) [#/Vol] Ordered By: Julee Davies on 05-27-2021 Platelets (Bld) [#/Vol] 129 10*3/uL 150-450 [facility] Protein [Mass/volume] in Ser um or PlasmaOrdered By: Julee Davies on 05-27-2021 Protein [Mass/Vol] 6.0 g/dL 6.1-7.9 [facility] RBC Auto (Bld) [#/Vol]Ordere d By: Julee Davies on 05-27-2021 RBC (Bld) [#/Vol] 4.03 10*6/uL 3.90-5.60 [facility] RBC morphologyOrdered By: Maurice Davies on 05-27-2021 RBC morphology finding Nom (Bld) Normal [facility] Serum or plasma alanine lopez otransferase measurement without P-5'-P (enzymatic activiOrdered By: Julee Davies on 05-27-2021 ALT No additional P-5'-P [Catalytic activity/Vol] 7 U/L 10-60 [facility] Serum or plasma albumin/glob ulin mass ratioOrdered By: Julee Davies on 05-27-2021 Albumin/Globulin [Mass ratio] 1.1 {ratio} [facility] Serum or plasma alkaline cande sphatase measurement (enzymatic activity/volume)Ordered By: Julee Davies on 05-27-2021 ALP [Catalytic activity/Vol] 52 U/L 32-92 [facility] Serum or plasma aspartate am inotransferase measurement (enzymatic activity/volume)Ordered By: Julee Davies on 05-27-2021 AST [Catalytic activity/Vol] 11 U/L 10-42 [facility] Serum or plasma calcium abhijit urement (mass/volume)Ordered By: Julee Davies on 05-27-2021 Calcium [Mass/Vol] 9.0 mg/dL 8.2-10.2 [facility] Serum or plasma chloride marylin surement (moles/volume)Ordered By: Julee Davies on 05-27-2021 Chloride [Moles/Vol] 104 mmol/L 95-114 [facility] Serum or plasma glucose abhijit urement (mass/volume)Ordered By: Julee Davies on 05-27-2021 Glucose [Mass/Vol] 183 mg/dL 70-100 [facility] Comment on above: ADA recommended refe rence rangeRandom Glucose Reference Range is dependent on time and content of last meal. Glucose of more than 200 mg/dL in a nonstressed, ambulatory subject supports the diagnosis of Diabetes Mellitus. Serum or plasma high density lipoprotein (HDL) cholesterol measurementOrdered By: Julee Davies on 05-27-2021 Cholesterol in HDL [Mass/Vol] 35 mg/dL 29-71 [facility] Comment on above: HDL CHOL ATP-III CLA SSIFICATION Cardiovascular RiskHDL > or equal to 60 mg/dL LOWHDL < 40 mg/dL HIGH Serum or plasma potassium me asurement (moles/volume)Ordered By: Julee Davies on 05-27-2021 Potassium [Moles/Vol] 4.1 mmol/L 3.5-5.1 [facility] Serum or plasma sodium measu rement (moles/volume)Ordered By: Julee Davies on 05-27-2021 Sodium [Moles/Vol] 140 mmol/L 136-146 [facility] Serum or plasma total biliru bin measurement (mass/volume)Ordered By: Julee Davies on 05-27-2021 Bilirubin [Mass/Vol] 0.4 mg/dL 0.3-1.2 [facility] Serum or plasma total carbon dioxide measurement (moles/volume)Ordered By: Julee Davies on 05-27-2021 CO2 [Moles/Vol] 26.1 mmol/L 22.0-30.0 [facility] Serum or plasma total choles terol/high density lipoprotein (HDL) cholesterol mass ratOrdered By: Julee Davies on 05-27-2021 Cholesterol.total/Denise sterol in HDL [Mass ratio] 3.7 {ratio} [facility] Serum or plasma urea nitroge n measurement (mass/volume)Ordered By: Julee Davies on 05-27-2021 Urea nitrogen [Mass/Vol] 38 mg/dL 9-23 [facility] TSH DL <= 0.005 mIU/L QnOrde red By: Julee Davies on 05-27-2021 TSH Qn 4.10 m[IU]/L 0.45-5.33 [facility] Triglyceride [Mass/volume] i n Serum or PlasmaOrdered By: Julee Davies on 05-27-2021 Triglyceride [Mass/Vol] 136 mg/dL 35-149 [facility] Comment on above: TRIG ATP III [...] Range: Not Detected.This test has received [facility] Emergency Use Authorization (EUA) and has been verified by [facility] ([facility]). This test is only authorized for the duration of time that circumstances exist to justify the authorization of the emergency use of in vitro diagnostic tests for the detection of SARS-CoV-2 virus and/or diagnosis of COVID-19 infection under section 564(b)(1) of the Act, 21 U.S.C. 360bbb-3(b)(1), unless the authorization is terminated or revoked sooner. [facility] is certified under CLIA-88 as qualified to perform high complexity testing. Testing is performed in the [facility] located at [address] [place] [address].SARS-CoV-2/Flu/RSV Multiplex Test: Fact sheet for providers: https://www.fda.gov/media/694558/downloadFact sheet for patients: https://www.fda.gov/media/214717/download Coronavirus 2019 RNA by PCR, Screening Asymptomtic Canceled [facility] [facility] DO Work Phone: Comment on above: SOURCE: Nasal, Nasop haryngeal.This test has received FDA Emergency Use Authorization (EUA) and has been verified by [facility] ([facility]). This test is only authorized for the duration of time that circumstances exist to justify the authorization of the emergency use of in vitro diagnostic tests for the detection of SARS-CoV-2 virus and/or diagnosis of COVID-19 infection under section 564(b)(1) of the Act, 21 U.S.C. 360bbb-3(b)(1), unless the authorization is terminated or revoked sooner. [facility] is certified under CLIA-88 as qualified to perform high complexity testing. Testing is performed in the [facility] located at [address] [place] [address].SARS-CoV-2/Flu/RSV Multiplex Test: Fact sheet for providers: https://www.fda.gov/media/743474/downloadFact sheet for patients: https://www.fda.gov/media/872354/download Laboratory - Chemistry and C hemistry - challengeon 12-24-2020 Glucose [Mass/Vol] 203 mg/dL above high threshold 74 - 99 [facility] DO Work Phone: Laboratory - Hematology and Cell countson 12-24-2020 Erythrocyte distribution width (RBC) [Ratio] 12.7 % See Below [facility] [facility] DO Work Phone: Comment on [...] lo w threshold 150 - 450 [facility] [facility] DO Work Phone: [phone] RBC (Bld) [#/Vol] 3.92 {x10E12/L} below low threshold See Below [facility] DO Work Phone: Comment on above: Reference Range: 4.5 0 - 5.90 WBC (Bld) [#/Vol] 5.1 10*3/uL 4.4 - 11.3 [facility] DO Work Phone: [phone] No Panel Informationon 12-24 Please click on the link to view the study images Normal [facility] DO Work Phone: 0.0 {/100_WBC} 0.0-0.0 [facility] [facility] DO Work Phone: [phone] Renal Function Panelon 12-24 Albumin BCP dye [Mass/Vol] 3.6 g/dL 3.4 - 5.0 [facility] DO Work Phone: Anion gap [Moles/Vol] 15 mmol/L 10 - 20 [facility] DO Work Phone: [phone] Calcium [Mass/Vol] 9.0 mg/dL 8.6 - 10.6 [facility] DO Work Phone: [phone] Chloride [Moles/Vol] 109 mmol/L above high threshold 98 - 107 [facility] DO Work Phone: CO2 [Moles/Vol] 24 mmol/L 21 - 32 [facility] [facility] DO Work Phone: Creatinine [Mass/Vol] [...] Function Panel 45 {mL/min/1.73m2} Abnormal >60 [facility] [facility] DO Work Phone: Comment on above: CALCULATIONS OF ERNST MATED GFR ARE PERFORMED USING THE MDRD STUDY EQUATION FOR THE IDMS-TRACEABLE CREATININE METHODS. CLIN CHEM 2007;53:766-72 Renal Function Panel 37 {mL/min/1.73m2} Abnormal >60 [facility] [facility] [address] DO Work Phone: Tacrolimuson 12-24-2020 Tacrolimus (Bld) [Mass/Vol] 5.4 ng/mL 2.0 - 15.0 [facility] DO Work Phone: Comment on above: NOTE: Result was obt ained using a chemiluminescent microparticle immunoassay (CMIA) on the [employer] i system.Optimal therapeutic ranges for immuno-suppressant drugs depend upon an individualpatient's current clinical state, type oforgan transplant, time post-transplant,co-administration of other immunosuppressants,and other clinical factors. The results ofthis test should be correlated with additionalclinical and laboratory data before changesin treatment regimens are made. CT Head without Contraston 1 CT Head limited WO contrast Normal [facility] DO Work Phone: [phone] Laboratory - Chemistry and C hemistry - challengeon 12-23-2020 Glucose [Mass/Vol] 151 mg/dL above high threshold 74 - 99 [facility] DO Work Phone: [phone] Glucose [Mass/Vol] 241 mg/dL above high threshold 74 - 99 [facility] [facility] DO Work Phone: [phone] Glucose [Mass/Vol] 195 mg/dL above high threshold 74 - 99 [facility] [facility] DO Work Phone: [phone] Glucose [Mass/Vol] 160 mg/dL above high threshold 74 - 99 [facility] [facility] DO Work Phone: [phone] Laboratory - Hematology and Cell countson 12-23-2020 Erythrocyte distribution width (RBC) [Ratio] 12.5 % See Below [facility] [facility] DO Work Phone: [phone] Comment on above: Reference Range: 11. 5 - 14.5 Hematocrit (Bld) [Volume fraction] 34.3 % below low threshold See Below [facility] SJW [address] DO Work Phone: [phone] Comment on above: Reference Range: 41. 0 - 52.0 Hemoglobin (Bld) [Mass/Vol] 11.1 g/dL below low threshold See Below [facility]iol[facility] SJW 260 DO Work Phone: [phone] Comment on above: Reference Range: 13. 5 - 17.5 MCHC (RBC) [Mass/Vol] 32.4 g/dL See Below MG- Cardiolo gy-[place] SJW 260 DO Work Phone: [phone] Comment on above: Reference Range: 32. 0 - 36.0 MCV (RBC) [Entitic vol] 90 fL 80 - 100 M G-Cardiolo gy-[place] SJW 260 DO Work Phone: [phone] Platelets (Bld) [#/Vol] 106 10*3/uL below lo w threshold 150 - 450 [facility]-Cardiol[facility] SJW 260 DO Work Phone: [phone] RBC (Bld) [#/Vol] 3.83 {x10E12/L} below low threshold See Below [facility]-Cardiol[facility] SJW 260 DO Work Phone: [phone] Comment on above: Reference Range: 4.5 0 - 5.90 WBC (Bld) [#/Vol] 5.2 10*3/uL 4.4 - 11.3 MG-Car diolo gy-[place] SJW 260 DO Work Phone: [phone] No Panel Informationon 12-23 0.0 {/100_WBC} 0.0-0.0 MG-Cardiol o gy-[place] SJW 260 DO Work Phone: [phone] Renal Function Panelon 12-23 Albumin BCP dye [Mass/Vol] 3.6 g/dL 3.4 - 5.0 [facility] SJW 260 DO Work Phone: [phone] Anion gap [Moles/Vol] 14 mmol/L 10 - 20 MG- Cardiolo gy-[place] SJW 260 DO Work Phone: [phone] Calcium [Mass/Vol] 8.9 mg/dL 8.6 - 10.6 MG-Car diolo [facility] SJW 260 DO Work Phone: [phone] Chloride [Moles/Vol] 109 mmol/L above high threshold 98 - 107 [facility] SJW 260 DO Work Phone: [phone] CO2 [Moles/Vol] 23 mmol/L 21 - 32 MG-Cardio lo gy-[place] SJW 260 DO Work Phone: [phone] Creatinine [Mass/Vol] 1.71 mg/dL above high threshold See Below [facility]iol[facility] SJW 260 DO Work Phone: Comment on above: Reference Range: 0.5 0 - 1.30 Glucose [Mass/Vol] 146 mg/dL above high threshold 74 - 99 [facility] SJW 260 DO Work Phone: Phosphate [Mass/Vol] [...] 4.2 mmol/L 3.5 - 5.3 MG- Cardiol[facility] SJW 260 DO Work Phone: Sodium [Moles/Vol] 142 mmol/L 136 - 145 [facility]-Car di[facility] SJW 260 DO Work Phone: Urea nitrogen [Mass/Vol] 50 mg/dL above high threshold 6 - 23 [facility] SJW 260 DO Work Phone: Renal Function Panel 47 {mL/min/1.73m2} Abnormal >60 [facility] SJW 260 DO Work Phone: Comment on above: CALCULATIONS OF ERNST MATED GFR ARE PERFORMED USING THE MDRD STUDY EQUATION FOR THE IDMS-TRACEABLE CREATININE METHODS. CLIN CHEM 2007;53:766-72 Renal Function Panel 39 {mL/min/1.73m2} Abnormal >60 [facility] SJW 260 DO Work Phone: Tacrolimuson 12-23-2020 Tacrolimus (Bld) [Mass/Vol] 5.9 ng/mL 2.0 - 15.0 [facility] SJW 260 DO Work Phone: Comment on above: NOTE: Result was obt ained using a chemiluminescent microparticle immunoassay (CMIA) on the Service [employer] Work Dispatcher i system.Optimal therapeutic ranges for immuno-suppressant drugs [...] [facility] SJW 260 DO Work Phone: [phone] Glucose [Mass/Vol] 217 mg/dL above high threshold 74 - 99 [facility] SJW 260 DO Work Phone: [phone] Glucose [Mass/Vol] 145 mg/dL above high threshold 74 - 99 [facility]iol[facility] SJW 260 DO Work Phone: Glucose [Mass/Vol] 142 mg/dL above high threshold 74 - 99 [facility] SJW 260 DO Work Phone: Laboratory - Hematology and Cell countson 12-22-2020 Erythrocyte distribution width (RBC) [Ratio] 12.6 % See Below [facility] SJW 260 DO Work Phone: Comment on above: Reference Range: 11. 5 - 14.5 Hematocrit (Bld) [Volume fraction] 33.0 % below low threshold See Below [facility] SJW 260 DO Work Phone: Comment on above: Reference Range: 41. 0 - 52.0 Hemoglobin (Bld) [Mass/Vol] 10.7 g/dL below low threshold See Below [facility]iol[facility] SJW 260 DO Work Phone: Comment on above: Reference Range: 13. 5 - 17.5 MCHC (RBC) [Mass/Vol] 32.4 g/dL See Below MG- Cardiolo gy-[place] SJW 260 DO Work Phone: [phone] Comment on above: Reference Range: 32. 0 - 36.0 MCV (RBC) [Entitic vol] 91 fL 80 - 100 M G-Cardiolo [facility] SJW 260 DO Work Phone: [phone] Platelets (Bld) [#/Vol] 107 10*3/uL below lo w threshold 150 - 450 [facility]iol[facility] SJW 260 DO Work Phone: [phone] RBC (Bld) [#/Vol] 3.62 {x10E12/L} below low threshold See Below [facility] SJW 260 DO Work Phone: [phone] Comment on above: Reference Range: 4.5 0 - 5.90 WBC (Bld) [#/Vol] 5.0 10*3/uL 4.4 - 11.3 MG-Car diolo [facility] SJW 260 DO Work Phone: [phone] No Panel Informationon 12-22 0.0 {/100_WBC} 0.0-0.0 [facility]-Cardiol o [facility] SJW 260 DO Work Phone: [phone] Renal Function Panelon 12-22 Albumin BCP dye [Mass/Vol] 3.5 g/dL 3.4 - 5.0 MG-Cardiol[facility] SJW 260 DO Work Phone: [phone] Anion gap [Moles/Vol] 15 mmol/L 10 - 20 MG- Cardiolo gy[facility] SJW 260 DO Work Phone: [phone] Calcium [Mass/Vol] 8.9 mg/dL 8.6 - 10.6 MG-Car diolo [facility] SJW 260 DO Work Phone: [phone] Chloride [Moles/Vol] 111 mmol/L above high threshold 98 - 107 [facility] SJW 260 DO Work Phone: [phone] CO2 [Moles/Vol] 23 mmol/L 21 - 32 MG-Cardio lo gy[facility] SJW 260 DO Work Phone: [phone] Creatinine [Mass/Vol] 2.04 mg/dL above high threshold See Below [facility] SJW 260 DO Work Phone: Comment on above: Reference Range: 0.5 0 - 1.30 Glucose [Mass/Vol] 131 mg/dL above high threshold 74 - 99 MG-Cardiol[facility] SJW 260 DO Work Phone: Phosphate [Mass/Vol] 3.3 mg/dL 2.5 - 4.9 MG-C ardiolo gy-[place] SJW 260 DO Work Phone: Comment on [...] Function Panel 32 {mL/min/1.73m2} Abnormal >60 [facility] SJW 260 DO Work Phone: Tacrolimuson 12-22-2020 Tacrolimus (Bld) [Mass/Vol] 5.5 ng/mL 2.0 - 15.0 [facility]-Cardiol[facility] SJW 260 DO Work Phone: Comment on above: NOTE: Result was obt ained using a chemiluminescent microparticle immunoassay (CMIA) on the Service [employer] Work Dispatcher i system.Optimal therapeutic ranges for immuno-suppressant drugs [...] Phone: HbA1c (Bld) [Mass fraction] Canceled [facility] SJW 260 DO Work Phone: Comment on above: Diagnosis of Diabete s-Adults Non-Diabetic: < or = 5.6% Increased risk for developing diabetes: 5.7-6.4% Diagnostic of diabetes: > or = 6.5%. Monitoring of Diabetes Age (y) Therapeutic Goal (%) Adults: >18 <7.0 Pediatrics: 13-18 <7.5 7-12 <8.0 0- 6 7.5-8.5 [place]. Diabetes Care 33(S1), Mar 2009. [...] 13-18 <7.5 7-12 <8.0 0- 6 7.5-8.5 [place]. Diabetes Care 33(S1), Mar 2009. Hemoglobin A1C Canceled [facility] SJW 260 DO Work Phone: Laboratory - Chemistry and C hemistry - challengeon 12-21-2020 Glucose [Mass/Vol] 191 mg/dL above high threshold 74 - 99 [facility]iol[facility] SJW 260 DO Work Phone: Glucose [Mass/Vol] 203 mg/dL above high threshold 74 - 99 [facility]iol[facility] SJW 260 DO Work Phone: [phone] Glucose [Mass/Vol] 229 mg/dL above high threshold 74 - 99 [facility]-Cardiol[facility] SJW 260 DO Work Phone: Glucose [Mass/Vol] 136 mg/dL above high threshold 74 - 99 [facility] SJW 260 DO Work Phone: Laboratory - [...] G-Cardiolo gy-[place] SJW 260 DO Work Phone: [phone] Platelets (Bld) [#/Vol] 124 10*3/uL below lo w threshold 150 - 450 MG[facility]Cardiol[facility] SJW 260 DO Work Phone: [phone] RBC (Bld) [#/Vol] 4.01 {x10E12/L} below low threshold See Below [facility] SJW 260 DO Work Phone: [phone] Comment on above: Reference Range: 4.5 0 - 5.90 WBC (Bld) [#/Vol] 6.2 10*3/uL 4.4 - 11.3 MG-Car diolo gy[facility] SJW 260 DO Work Phone: [phone] No Panel Informationon 12-21 0.0 {/100_WBC} 0.0-0.0 MG-Cardiol o gy[facility] SJW 260 DO Work Phone: [phone] Renal Function Panelon 12-21 Albumin BCP dye [Mass/Vol] 3.8 g/dL 3.4 - 5.0 [facility] SJW 260 DO Work Phone: [phone] Anion gap [Moles/Vol] 15 mmol/L 10 - 20 MG- Cardiol[facility] SJW 260 DO Work Phone: [phone] Calcium [Mass/Vol] 8.8 mg/dL 8.6 - 10.6 MG-Car diolo [facility] SJW 260 DO Work Phone: [phone] Chloride [Moles/Vol] 110 mmol/L above high threshold 98 - 107 MG[facility]Cardiol[facility] SJW 260 DO Work Phone: [phone] CO2 [Moles/Vol] 23 mmol/L 21 - 32 MG-Cardio lo [facility] SJW 260 DO Work Phone: [phone] Creatinine [Mass/Vol] 2.22 mg/dL above high threshold See Below [facility] SJW 260 DO Work Phone: [phone] Comment on above: Reference Range: 0.5 0 - 1.30 Glucose [Mass/Vol] 114 mg/dL above high threshold 74 - 99 MG-Cardiol[facility] SJW 260 DO Work Phone: Phosphate [Mass/Vol] 3.6 mg/dL 2.5 - 4.9 MG-C ardiolo gy[facility] SJW 260 DO Work Phone: Comment on above: The performance waqar acteristics of phosphorus testing in heparinized plasma have been validated by the individual laboratory site where testing is performed. Testing on heparinized plasma is not approved by the FDA; however, such approval is not necessary. Potassium [Moles/Vol] 4.1 mmol/L 3.5 - 5.3 MG- Cardiol[facility] SJW 260 DO Work Phone: Sodium [Moles/Vol] 144 mmol/L 136 - 145 MG-Car di[facility] SJW 260 DO Work Phone: Urea nitrogen [Mass/Vol] 68 mg/dL above high threshold 6 - 23 [facility] SJW 260 DO Work Phone: Renal Function Panel 35 {mL/min/1.73m2} Abnormal >60 [facility] [facility] 260 DO Work Phone: Comment on above: CALCULATIONS OF ERNST MATED GFR ARE PERFORMED USING THE MDRD STUDY EQUATION FOR THE IDMS-TRACEABLE CREATININE METHODS. CLIN CHEM 2007;53:766-72 Renal Function Panel 29 {mL/min/1.73m2} Abnormal >60 [facility] SJW 260 DO Work Phone: Tacrolimuson 12-21-2020 Tacrolimus (Bld) [Mass/Vol] 6.8 ng/mL 2.0 - 15.0 [facility] SJW 260 DO Work Phone: Comment on above: NOTE: Result was obt ained using a chemiluminescent microparticle immunoassay (CMIA) on the Service Or Work Dispatcher i system.Optimal therapeutic ranges for immuno-suppressant drugs depend upon an individualpatient's current clinical state, type oforgan transplant, time post-transplant,co-administration of other immunosuppressants,and other clinical factors. The results ofthis test should be correlated with additionalclinical and laboratory data before changesin treatment regimens are made. Coronavirus 2019 RNA by PCR, Symptomaticon 12-20-2020 Coronavirus 2019 RNA by PCR, Symptomatic Not detected Normal See Below [facility] SJW 260 DO Work Phone: Comment on above: SOURCE: Nasal, Nasop haryngealReference Range: Not Detected.This test has received FDA Emergency Use Authorization (EUA) and has been verified by [facility] ([facility]). This test is only authorized for the duration of time that circumstances exist to justify the authorization of the emergency use of in vitro diagnostic tests for the detection of SARS-CoV-2 virus and/or diagnosis of COVID-19 infection under section 564(b)(1) of the Act, 21 U.S.C. 360bbb-3(b)(1), unless the authorization is terminated or revoked sooner. [facility] is certified under CLIA-88 as qualified to perform high complexity testing. Testing is performed in the [facility] located at [address] [place] [address].SARS-CoV-2/Flu/RSV Multiplex Test: Fact sheet for providers: https://www.fda.gov/media/810906/downloadFact sheet for patients: https://www.fda.gov/media/758953/download Date and time of symptom onset Canceled [facility]Cardiol[facility] SJW 260 DO Work Phone: Coronavirus 2019 RNA by PCR, Symptomatic Canceled [facility]Cardiol[facility] SJW 260 DO Work Phone: Comment on [...] this test method. Fact sheet for providers: www.fda.gov/media/670986/downloadFact sheet for patients: www.fda.gov/media/128255/downloadThis test has received FDA Emergency Use Authorization (EUA) and has been verified by [facility] ([facility]). This test is only authorized for the duration of time that circumstances exist to justify the authorization of the emergency use of in vitro diagnostic tests for the detection of SARS-CoV-2 virus and/or diagnosis of COVID-19 infection under section 564(b)(1) of the Act, 21 U.S.C. 360bbb-3(b)(1), unless the authorization is terminated or revoked sooner. [facility] is certified under CLIA-88 as qualified to perform high complexity testing. Testing is performed in the [facility] laboratories located at [address] [place] [address]. Folate, Serumon 12-20-2020 Folate [Mass/Vol] ng/mL >5.0 MG-Card iolo gy[facility] SJW 260 DO Work Phone: Comment on [...] TSH Qn 2.00 m[IU]/L See Below [facility]-Cardiol[facility] SJW 260 DO Work Phone: Comment on above: Reference Range: 0.4 4 - 3.98 TSH testing is performed using different testing methodology at [facility] than at other [facility]. Direct result comparisons should only be made [...] MG-Cardiolo gy-[place] SJW 260 DO Work Phone: [phone] PT Coag (PPP) [Time] Canceled MG-C ardiolo gy[facility] SJW 260 DO Work Phone: [phone] Laboratory - Hematology and Cell countson 12-20-2020 Erythrocyte distribution width (RBC) [Ratio] 12.9 % See Below MG-Cardiolo gy-[place] SJW 260 DO Work Phone: [phone] Comment on above: Reference Range: 11. 5 - 14.5 Hematocrit (Bld) [Volume fraction] 35.8 % below low threshold See Below [facility]-Cardiol[facility] SJW 260 DO Work Phone: [phone] Comment on above: Reference Range: 41. 0 - 52.0 Hemoglobin (Bld) [Mass/Vol] 11.7 g/dL below low threshold See Below MG-Cardiolo gy-[place] SJW 260 DO Work Phone: [phone] Comment on above: Reference Range: 13. 5 - 17.5 MCHC (RBC) [Mass/Vol] 32.7 g/dL See Below MG- Cardiolo gy[facility] SJW 260 DO Work Phone: [phone] Comment on above: Reference Range: 32. 0 - 36.0 MCV (RBC) [Entitic vol] 90 fL 80 - 100 M G-Cardiolo gy-[place] SJW 260 DO Work Phone: [phone] Platelets (Bld) [#/Vol] 131 10*3/uL below lo w threshold 150 - 450 MG-Cardiolo gy-[place] SJW 260 DO Work Phone: [phone] RBC (Bld) [#/Vol] 3.97 {x10E12/L} below low [...] above: . <100 pg/mL - Heart failure [id number] pg/mL - Intermediate probability of acute heart. [...] Radiologyon 12-20-2020 XR Abdomen AP Normal [facility]-Cardiol[facility] SJW 260 DO Work Phone: XR Chest [...] 9.2 mg/dL 8.6 - 10.6 MG-Car diolo gy-[place] SJW 260 DO Work Phone: [phone] Chloride [Moles/Vol] 112 mmol/L above high threshold 98 - 107 MG-Cardiolo gy[facility] [facility]JW 260 DO Work Phone: [phone] CO2 [Moles/Vol] 24 mmol/L 21 - 32 MG-Cardio lo gy-[place] SJW 260 DO Work Phone: [phone] Creatinine [Mass/Vol] 2.40 mg/dL above high threshold See Below [facility]-Cardiol[facility] SJW 260 DO Work Phone: [phone] Comment on above: Reference Range: 0.5 0 - 1.30 Glucose [Mass/Vol] 211 mg/dL above high threshold 74 - 99 MG-Cardiolo gy-[place] SJW 260 DO Work Phone: [phone] Phosphate [Mass/Vol] 4.5 mg/dL 2.5 - 4.9 MG-C ardiolo gy[facility] SJW 260 DO Work Phone: [phone] Comment on above: The performance waqar acteristics [...] above high threshold 136 - 145 MG-Cardiolo gy[facility] SJW 260 DO Work Phone: [phone] Urea nitrogen [Mass/Vol] 74 mg/dL above high threshold 6 - 23 MG-Cardiolo gy[facility] SJW 260 DO Work Phone: Renal Function Panel 31 {mL/min/1.73m2} Abnormal >60 MG-Cardiol[facility] SJW 260 DO Work Phone: Comment on [...] a chemiluminescent microparticle immunoassay (CMIA) on the Service [employer] Work Dispatcher i system.Optimal therapeutic ranges for immuno-suppressant drugs depend upon an individualpatient's current clinical state, type oforgan transplant, time post-transplant,co-administration of other immunosuppressants,and other clinical factors. The results ofthis test should be correlated with additionalclinical and laboratory data before changesin treatment regimens are made. Troponin I, Serumon 12-21-19 Troponin I.cardiac [Mass/Vol] 0.02 ng/mL See Below [facility]-Cardiol[facility] SJW 260 DO Work Phone: Comment on [...] is performed using different testing methodology at [facility] than at other [facility]. Direct result comparisons should only be [...] above high threshold 211 - 911 MG-Cardiolo woo[facility] SJW [address] [employer] Work Phone: Basic Metabolic PanelOrdered By: Manuel Conner on 12-19-2020 Anion gap [Moles/Vol] 11 mmol/L 9 - 17 mmol/L [employer] Phone: Calcium [Mass/Vol] 9.3 mg/dL 8.6 - 10. 4 mg/dL [employer] Phone: Chloride [Moles/Vol] 107 mmol/L 98 - 10 7 mmol/L [employer] Phone: CO2 [Moles/Vol] 23 mmol/L 20 - 31 mmol/L [employer] Phone: Creatinine [Mass/Vol] 2.53 mg/dL High 0.70 - 1.20 mg/dL [employer] Phone: GFR 30 mL/min Low >60 [employer] Phone: GFR Non- 25 mL/min Low >60 [employer] Phone: Glucose [Mass/Vol] 160 mg/dL High 70 - 99 mg/dL [employer] Phone: Interpretation and review of laboratory results Abnormal [employer] Phone: Potassium [Moles/Vol] 4.5 mmol/L 3.7 - 5.3 mmol/L [employer] Phone: Sodium [Moles/Vol] 141 mmol/L 135 - 144 mmol/L [employer] Phone: Urea nitrogen (BldV) [Mass/Vol] 76 mg/dL High 8 - 23 mg/dL [employer] Phone: Urea nitrogen/Creatinine (Bld) [Mass ratio] 30 High [employer] Phone: [employer] Phone: Laboratory - Chemistry and C hemistry - challengeOrdered By: Manuel Conner on 12-19-2020 GFR/1.73 sq M.predicted MDRD (S/P/Bld) [Vol rate/Area] [employer] Phone: Comment on above: Average GFR for 70 o r more years old: 75 mL/min/1.73sq m Chronic Kidney Disease: <60 mL/min/1.73sq m Kidney failure: <15 mL/min/1.73sq m eGFR calculated using average adult body mass. Additional eGFR calculator available at: http://www.[employer]/Vinted_crcl_2012.htm Stage 1: Some kidney damage normal GFR Stage 2: Mild kidney damage GFR 60-89 Stage 3: Moderate kidney damage GFR 30-59 Stage 4: Severe kidney damage GFR 15-29 Stage 5: Severe kidney damage GFR <15 ESRD - chronic treatment by dialysis or transplant TroponinOrdered By: Manuel Conner on 12-19-2020 Interpretation and review of laboratory results Abnormal [facility] Phone: Troponin Interp NOT REPORTED [facility] Phone: Troponin T NOT REPORTED <0.03 ng/mL [facility] Phone: Troponin, High Sensitivity 57 ng/L Critically high 0 - 22 ng/L [employer] Phone: Comment on above: High Sensitivity Troponin values cannot be compared with other Troponin methodologies. Patients with high levels of Biotin oral intake (i.e >5mg/day) may have falsely decreased Troponin levels. Samples collected within 8 hours of biotin intake may require additional information for diagnosis. [facility] Phone: Basic Metabolic PanelOrdered By: Manuel Conner on 12-18-2020 Anion gap [Moles/Vol] 14 mmol/L 9 - 17 mmol/L [employer] Phone: Calcium [Mass/Vol] 9.3 mg/dL 8.6 - 10. 4 mg/dL [employer] Phone: Chloride [Moles/Vol] 104 mmol/L 98 - 10 7 mmol/L [employer] Phone: CO2 [Moles/Vol] 22 mmol/L 20 - 31 mmol/L [employer] Phone: Creatinine [Mass/Vol] 4.1 mg/dL High 0.70 - 1.20 mg/dL [employer] Phone: GFR 17 mL/min Low >60 [facility] Phone: GFR Non- 14 mL/min Low >60 [employer] Phone: Glucose [Mass/Vol] 148 mg/dL High 70 - 99 mg/dL [employer] Phone: Potassium [Moles/Vol] 5.2 mmol/L 3.7 - 5.3 mmol/L [employer] Phone: Sodium [Moles/Vol] 140 mmol/L 135 - 144 mmol/L [employer] Phone: Urea nitrogen (BldV) [Mass/Vol] 87 mg/dL High 8 - 23 mg/dL [employer] Phone: Urea nitrogen/Creatinine (Bld) [Mass ratio] 21 High [facility] Phone: Brain Natriuretic PeptideOrd ered By: Manuel Conner on 12-18-2020 BNP Interpretation Pro-BNP Reference Range: [facility] Phone: Comment on above: Rule Out: <300 Pagan Zone: Age <50 300-450 Age 50-75 300-900 Age >75 300-1800 Usually represents mild to moderate HF but other cardiopulmonary causes cannot be ruled out. Rule In: Age <50 >450 Age 50-75 >900 Age >75 >1800 Interpretation and review of laboratory results Abnormal [facility] Phone: Natriuretic peptide B (Bld) [Mass/Vol] 846 pg/mL High <300 [facility] Phone: Comment on above: Pro-BNP results halie ot be compared to BNP results. [facility] Phone: EKG Rhythm StripOrdered By: Unknown Result on 12-18-2020 [employer] Phone: [facility] Phone: Glucose, Whole BloodOrdered By: Manuel Conner on 12-18-2020 Glucose [Mass/Vol] 152 mg/dL High 74 - 100 mg/dL [facility] Phone: Interpretation and review of laboratory results Abnormal [facility] Phone: [facility] Phone: Laboratory - Chemistry and C hemistry - challengeOrdered By: Manuel Conner on 12-18-2020 GFR/1.73 sq M.predicted MDRD (S/P/Bld) [Vol rate/Area] [facility] Phone: Comment on above: Average GFR for 70 o r more years old: 75 mL/min/1.73sq m Chronic Kidney Disease: <60 mL/min/1.73sq m Kidney failure: <15 mL/min/1.73sq m eGFR calculated using average adult body mass. Additional eGFR calculator available at: http://www.[employer]/multiple_crcl_2012.htm Stage 1: Some kidney damage normal GFR Stage 2: Mild kidney damage GFR 60-89 Stage 3: Moderate kidney damage GFR 30-59 Stage 4: Severe kidney damage GFR 15-29 Stage 5: Severe kidney damage GFR <15 ESRD - chronic treatment by dialysis or transplant No Panel InformationOrdered By: Manuel Conner on 12-18-2020 Interpretation and review of laboratory results Abnormal [facility] Phone: [facility] Phone: TroponinOrdered By: Manuel Conner on 12-18-2020 Troponin Interp NOT REPORTED [facility] Phone: Troponin T NOT REPORTED <0.03 ng/mL [facility] Phone: Troponin, High Sensitivity 71 ng/L Critically high 0 - 22 ng/L [facility] Phone: Comment on above: High Sensitivity Troponin [...] Consider advancement by 5-7 cm, if able. [facility] Phone: EXAMINATION: ONE XRA Y VIEW OF [...] cardiomegaly. Bony thorax is without acute abnormality. [facility] Phone: Roger, Mhpn Incoming R adiant Results From [employer] - 12/18/2020 1:31 PM EDT EXAMINATION: ONE [...] Consider advancement by 5-7 cm, if able. [facility] Phone: [facility] Phone: XR CHEST PORTABLEOrdered By: Manuel Conner on 12-18-2020 Mild prominence of interstitial markings suggests mild vascular congestion with mild streaky bibasilar atelectasis [employer] Phone: EXAMINATION: ONE XRA Y VIEW OF THE CHEST 12/18/2020 11:18 am COMPARISON: December 17, 2020, chest examination HISTORY: ORDERING SYSTEM PROVIDED HISTORY: Congestion TECHNOLOGIST PROVIDED HISTORY: Congestion FINDINGS: Median sternotomy. Stable cardiomegaly/mild tortuosity of the thoracic aorta Mild streaky bibasilar density. Mild prominence of interstitial markings Possible small right pleural effusion Degenerative changes of the thoracic spine/shoulders [facility] Phone: Roger, Mhpn Incoming R adiant Results From [employer] - 12/18/2020 11:26 AM EDT EXAMINATION: ONE [...] vascular congestion with mild streaky bibasilar atelectasis [facility] Phone: [facility] Phone: APTTOrdered By: Manuel lew on 12-17-2020 aPTT Coag (Bld) [Time] 22.8 s Low Me [employer] Phone: Comment on above: IV Heparin Therapy Range: 62.0-94.0 Interpretation and review of laboratory results Abnormal [facility] Phone: [employer] Phone: Blood Gas, VenousOrdered By: Manuel Conner on 12-17-2020 Shilo Test NOT REPORTED [facility] Phone: Carboxyhemoglobin NOT REPORTED 0.0 - 5.0 % [employer] Phone: Comment on above: FIO2 NOT REPORTED [facility] Phone: HCO3 (Bld) [Moles/Vol] 21.9 mmol/L Low 24.0 - 30.0 mmol/L [employer] Phone: Interpretation and review of laboratory results Abnormal [employer] Phone: Methemoglobin NOT REPORTED 0.0 - 1.9 % [employer] Phone: Mode NOT REPORTED [facility] Phone: Negative Base Excess, Angelo 5.7 mmol/L High 0.0 - 2.0 mmol/L [employer] Phone: NOTIFICATION NOT REPORTED [employer] Phone: NOTIFICATION TIME NOT REPORTED [employer] Phone: O2 Device/Flow/% NOT REPORTED [employer] Phone: Oxygen saturation in Blood 31.2 % Low 60.0 - 85.0 % [employer] Phone: Oxyhemoglobin NOT REPORTED 95.0 - 98.0 [...] PSV NOT REPORTED [facility] Work Phone: [phone] Pt Temp 37.0 [facility] Work Phone: Pt. Position NOT REPORTED [facility] Work Phone: Respiratory Rate NOT REPORTED [facility] Work Phone: Sample Site NOT REPORTED [facility] Work Phone: Set Rate NOT REPORTED [facility] Work Phone: Text for Respiratory NOT REPORTED [facility] Work Phone: Total Hb NOT REPORTED 12.0 - 16.0 g/dl [facility] Work Phone: Total Rate NOT REPORTED [facility] Work Phone: VT NOT REPORTED [facility] Work Phone: [facility] Work Phone: Brain Natriuretic PeptideOrd ered By: Manuel Conner on 12-17-2020 BNP Interpretation Pro-BNP Reference Range: [employer] Phone: Comment on above: Rule Out: <300 Pagan Zone: Age <50 300-450 Age 50-75 300-900 Age >75 300-1800 Usually represents mild to moderate HF but other cardiopulmonary causes cannot be ruled out. Rule In: Age <50 >450 Age 50-75 >900 Age >75 >1800 Natriuretic peptide B (Bld) [Mass/Vol] 1428 pg/mL High <300 [employer] Phone: Comment on above: Pro-BNP results halie ot be compared to BNP results. CBC Auto DifferentialOrdered By: Manuel Conner on 12-17-2020 Absolute Eos # 0.03 [employer] Phone: Absolute Immature Granulocyte 0.03 [employer] Phone: Absolute Lymph # 0.96 Low [employer] Phone: Absolute Eagle # 0.52 [employer] Phone: Basophils (Bld) [#/Vol] 10*3/uL M [employer] Phone: Basophils/100 WBC (Bld) 0 % 0 - 2 % M [employer] Phone: Differential Type NOT REPORTED [employer] Phone: [phone] Eosinophils/100 WBC (Bld) 0 % Low 1 - 4 % [employer] Phone: Hematocrit (Bld) [Volume fraction] 37.2 % Low 40.7 - 50.3 % [employer] Phone: Hemoglobin.gastrointest inal spec 1 Ql (Stl) 11.5 g/dL Low 13.0 - 17.0 g/dL [employer] Phone: Immature granulocytes/100 WBC (Bld) 0 % 0 [employer] Phone: Interpretation and review of laboratory results Abnormal [employer] Phone: Lymphocytes/100 WBC (Bld) 11 % Low 24 - 43 % [employer] Phone: MCH (RBC) [Entitic mass] 28.5 pg 25.2 - 33.5 pg [employer] Phone: MCHC (RBC) [Mass/Vol] 30.9 g/dL 28.4 - 34.8 g/dL [employer] Phone: MCV (RBC) [Entitic vol] 92.3 fL 82.6 - 102.9 fL [employer] Phone: Monocytes/100 WBC (Bld) 6 % 3 - 12 % M [employer] Phone: NRBC Automated 0.0 0.0 per 100 WBC [employer] Phone: Platelet distribution width (Bld) [Ratio] 13.0 % 11.8 - 14.4 % [employer] Phone: Platelet Estimate NOT REPORTED [employer] Phone: Platelet mean volume (Bld) [Entitic vol] NOT REPORTED 8.1 - 13.5 fL [employer] Phone: Platelets (Bld) [#/Vol] See Reflexed IPF Result [employer] Phone: RBC (Bld) [#/Vol] 4.03 10*6/uL Low 4.21 - 5.77 m/uL [employer] Phone: RBC (Bld) [#/Vol] NOT REPORTED [employer] Phone: Segmented neutrophils/100 WBC (Bld) 82 % High 36 - 65 % [employer] Phone: Segs Absolute 6.94 [employer] Phone: WBC (Bld) [#/Vol] 8.5 10*3/uL [employer] Phone: WBC (Bld) [#/Vol] NOT REPORTED [employer] Phone: [employer] Phone: COVID-19, RapidOrdered By: Agnieszka yaritza Conner on 12-17-2020 SARS-CoV-2 (COVID-19) RNA JOYCE+probe Ql (Unsp spec) Not detected Not Detected [employer] Phone: Comment on above: Rapid NAAT: The [...] management decisions. Fact sheet for Healthcare Providers: https://www.fda.gov/media/249532/download Fact sheet for Patients: https://www.fda.gov/media/041047/download Methodology: Isothermal Nucleic Acid Amplification Specimen Description .NASOPHARYNGEAL SWAB [facility] Phone: [facility] Phone: CT HEAD WO CONTRASTOrdered B y: Manuel Conner on 12-17-2020 No acute intracrania l abnormality. 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 Minimal parenchymal volume loss. Minimal chronic microvascular disease. [facility] Phone: EXAMINATION: CT OF T HE HEAD [...] of the visualized skull or soft tissues. [employer] Phone: Roger, pn Incoming R adiant Results From [employer] - 12/17/2020 9:36 AM EDT EXAMINATION: CT [...] parenchymal volume loss. Minimal chronic microvascular disease. [employer] Phone: [facility] Phone: Comprehensive Metabolic Pane l w/ Reflex to MGOrdered By: Manuel Conner on 12-17-2020 Albumin [Mass/Vol] 4 g/dL 3.5 - 5.2 g/dL [employer] Phone: Albumin/Globulin [Mass ratio] 1.3 {ratio} [employer] Phone: ALP (Bld) [Catalytic activity/Vol] 66 U/L 40 - 129 U/L [employer] Phone: ALT [Catalytic activity/Vol] 12 U/L 5 - 41 U/L [employer] Phone: Anion gap [Moles/Vol] 19 mmol/L High 9 - 17 mmol/L [employer] Phone: AST [Catalytic activity/Vol] 18 U/L <40 [employer] Phone: Bilirubin [Mass/Vol] 0.16 mg/dL Low 0.3 - 1 .2 mg/dL [employer] Phone: Calcium [Mass/Vol] 8.8 mg/dL 8.6 - 10. 4 mg/dL [employer] Phone: Chloride [Moles/Vol] 102 mmol/L 98 - 10 7 mmol/L [employer] Phone: CO2 [Moles/Vol] 19 mmol/L Low 20 - 31 mmol/L [employer] Phone: Creatinine [Mass/Vol] 6.59 mg/dL Critically high 0.7 0 - 1.20 mg/dL [employer] Phone: Free PSA/Total PSA [Mass fraction] 7.0 g/dL 6.4 - 8.3 g/dL [employer] Phone: GFR 10 mL/min Low >60 [employer] Work Phone: GFR Non- 8 mL/min Low >60 [employer] Phone: Glucose [Mass/Vol] 197 mg/dL High 70 - 99 mg/dL [employer] Phone: Potassium [Moles/Vol] 4.6 mmol/L 3.7 - 5.3 mmol/L [employer] Phone: Sodium [Moles/Vol] 140 mmol/L 135 - 144 mmol/L [employer] Phone: Urea nitrogen (BldV) [Mass/Vol] 96 mg/dL Critically high 8 - 23 mg/dL [employer] Phone: Urea nitrogen/Creatinine (Bld) [Mass ratio] 15 [employer] Phone: EKG 12 LeadOrdered By: Kathy Conner on 12-17-2020 Atrial Rate 85 BPM [employer] Phone: [phone] P Jameson -15 degrees [employer] Phone: P-R Interval 224 ms [employer] Phone: Q-T Interval 414 ms [employer] Phone: QRS Duration 120 ms [employer] Phone: QTc Calculation (Bazett) 492 ms [employer] Phone: R Jameson 99 degrees [employer] Phone: [phone] T Jameson 44 degrees [employer] Phone: Ventricular Rate 85 BPM [employer] Phone: Sinus rhythm with 1s t degree A-V block Rightward axis Septal infarct , age undetermined Abnormal ECG No previous ECGs available Confirmed by JARON BERNARD ([id number]) on 12/17/2020 11:51:30 PM [facility] Phone: Roger, [employer] Incoming E kg Results From [facility] - 12/17/2020 11:51 PM EDT Sinus rhythm with 1st degree A-V block Rightward axis Septal infarct , age undetermined Abnormal ECG No previous ECGs available Confirmed by JARON BERNARD ([id number]) on 12/17/2020 11:51:30 PM [employer] Phone: [facility] Phone: Immature Platelet FractionOr dered By: Manuel Conner on 12-17-2020 Interpretation and review of laboratory results Abnormal [employer] Phone: Platelet, Fluorescence 110 Low [employer] Phone: Platelet, Immature Fraction 4.6 % 1.1 - 10.3 % [employer] Phone: [employer] Phone: Laboratory - Chemistry and C hemistry - challengeOrdered By: Manuel Conner on 12-17-2020 GFR/1.73 sq M.predicted MDRD (S/P/Bld) [Vol rate/Area] [employer] Phone: Comment on above: Average GFR for 70 o r more years old: 75 mL/min/1.73sq m Chronic Kidney Disease: <60 mL/min/1.73sq m Kidney failure: <15 mL/min/1.73sq m eGFR calculated using average adult body mass. Additional eGFR calculator available at: http://[email or web address]_crcl_2012.htm Stage 1: Some kidney damage normal GFR Stage 2: Mild kidney damage GFR 60-89 Stage 3: Moderate kidney damage GFR 30-59 Stage 4: Severe kidney damage GFR 15-29 Stage 5: Severe kidney damage GFR <15 ESRD - chronic treatment by dialysis or transplant Lactic AcidOrdered By: Kathy Conner on 12-17-2020 Lactate [Moles/Vol] 1.3 mmol/L 0.5 - 2. 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 Flow artifact in the proximal M1 segments of the bilateral MCAs and intracranial right ICA. The bilateral intracranial vertebral arteries are not imaged. [employer] Phone: EXAMINATION: MRA OF THE HEAD WITHOUT CONTRAST 12/17/2020 1:32 pm TECHNIQUE: MRA of the head was performed utilizing [id number] imaging with MIP images. No intravenous contrast [...] cerebral arteries. No evidence of intracranial aneurysm. [employer] Phone: Roger, Mhpn Incoming R adiant Results From [employer] - 12/17/2020 2:02 PM EDT EXAMINATION: MRA OF THE HEAD WITHOUT CONTRAST 12/17/2020 1:32 pm TECHNIQUE: MRA of the head was performed utilizing [id number] imaging with MIP images. No intravenous contrast [...] bilateral intracranial vertebral arteries are not imaged. 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 [employer] Phone: No acute intracrania l abnormality. 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 Mild parenchymal volume loss. Mild chronic microvascular disease. 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 [employer] Phone: EXAMINATION: MRI OF THE BRAIN WITHOUT [...] The soft tissues demonstrate no acute abnormality. [employer] Phone: Roger, [facility] Incoming R adiant Results From [employer] - 12/17/2020 1:55 PM EDT EXAMINATION: MRI [...] internal carotid artery, likely related to occlusion. [employer] Work Phone: [employer] Work Phone: Microscopic UrinalysisOrdere d By: Manuel Conner on 12-17-2020 - [employer] Work Phone: Amorphous, UA NOT REPORTED None [employer] Work Phone: Bacteria, UA NOT REPORTED None [employer] Work Phone: [phone] Casts UA NOT REPORTED /LPF [facility] Work Phone: Crystals, UA NOT REPORTED None /HPF [employer] Work Phone: Epithelial Cells UA 0 TO 2 [employer] Work Phone: Mucus, UA NOT REPORTED None [employer] Work Phone: Other Observations UA NOT REPORTED NOT REQ. M [facility] Work Phone: RBC, UA 2 TO 5 [employer] Work Phone: Renal Epithelial, UA NOT REPORTED 0 /HPF Me [employer] Work Phone: Trichomonas, UA NOT REPORTED None [employer] Work Phone: WBC, UA 0 TO 2 [facility] Work Phone: Yeast, UA NOT REPORTED None [employer] Work Phone: [facility] Work Phone: No Panel InformationOrdered By: Manuel Conner on 12-17-2020 Interpretation and review of laboratory results Abnormal [employer] Work Phone: [employer] Work Phone: Interpretation and review of laboratory results Abnormal [employer] Work Phone: [employer] Work Phone: Protime-INROrdered By: Kathy Conner on 12-17-2020 INR Coag (Bld) [Relative time] 1.1 {INR} [employer] Phone: Comment on above: Non-therapeutic Range: INR = 0.9-1.2 Therapeutic Range: Moderate Anticoagulant Intensity: INR = 2.0-3.0 High Anticoagulant Intensity: INR = 2.5-3.5 PT Coag (PPP) [Time] 13.7 s [employer] Phone: [facility] Phone: TroponinOrdered By: Manuel Conner on 12-17-2020 Interpretation and review of laboratory results Abnormal [employer] Phone: Troponin Interp NOT REPORTED [employer] Phone: Troponin T NOT REPORTED <0.03 ng/mL [employer] Phone: Troponin, High Sensitivity 79 ng/L Critically high 0 - 22 ng/L [employer] Phone: Comment on above: High Sensitivity Troponin values cannot be compared with other Troponin methodologies. Patients with high levels of Biotin oral intake (i.e >5mg/day) may have falsely decreased Troponin levels. Samples collected within 8 hours of biotin intake may require additional information for diagnosis. [employer] Phone: Troponin Interp NOT REPORTED [employer] Phone: Troponin T NOT REPORTED <0.03 ng/mL [employer] Phone: Troponin, High Sensitivity 85 ng/L Critically high 0 - 22 ng/L [employer] Phone: Comment on above: High Sensitivity Troponin values cannot be compared with other Troponin methodologies. Patients with high levels of Biotin oral intake (i.e >5mg/day) may have falsely decreased Troponin levels. Samples collected within 8 hours of biotin intake may require additional information for diagnosis. Urinalysis, reflex to micros copicOrdered By: Manuel Conner on 12-17-2020 Bilirubin Urine Negative NEGATIVE [employer] Work Phone: Color, UA Yellow Yellow [employer] Work Phone: Glucose, Ur Negative NEGATIVE [employer] Work Phone: Interpretation and review of laboratory results Abnormal [employer] Work Phone: Ketones Ql (U) Negative NEGATIVE [employer] Work Phone: Leukocyte esterase Test strip Ql (U) Negative NEGATIVE [employer] Work Phone: Nitrite, Urine Negative NEGATIVE [employer] Work Phone: pH, UA 5.5 [employer] Work Phone: Protein, UA TRACE Abnormal NEGATIVE [employer] Phone: Specific [place], UA 1.025 High [employer] Work Phone: Turbidity UA Clear Clear [employer] Work Phone: Urinalysis Comments NOT REPORTED [facility] [employer] Work Phone: Urine Hgb TRACE Abnormal NEGATIVE [place] Phone: Urobilinogen, Urine Normal Normal [employer] Phone: [employer] Work Phone: XR CHEST PORTABLEOrdered By: Manuel Conner on 12-17-2020 Mild streaky bibasil ar atelectasis with possible small bilateral pleural effusions [employer] Phone: EXAMINATION: ONE XRA Y VIEW OF THE CHEST 12/17/2020 9:30 am COMPARISON: None. HISTORY: ORDERING SYSTEM PROVIDED HISTORY: Congestion TECHNOLOGIST PROVIDED HISTORY: Congestion FINDINGS: Median sternotomy. Normal cardiopericardial silhouette Low volume lungs. Mild streaky bibasilar densities, possible possible small bilateral pleural effusions. Clear upper lungs Degenerative changes of the thoracic spine/shoulders [employer] Phone: Roger, Mhpn Incoming R adiant Results From [employer] - 12/17/2020 9:46 AM EDT EXAMINATION: ONE [...] atelectasis with possible small bilateral pleural effusions [employer] Phone: [employer] Phone: Vital Signs Date Time Vital Sign Value Performing Clinician Facility 07-03-2021 15:01-0400 Body temperature 99.32 [degF] Michael Carballo Other Phone: [facility] 07-03-2021 15:01-0400 Diastolic blood pressure 66 mm[Hg] Michael Carballo Other Phone: [facility] 07-03-2021 15:01-0400 Heart rate 80 /min Michael Carballo Other Phone: [facility] 07-03-2021 15:01-0400 Respiratory rate 22 /min Michael Carballo Other Phone: [facility] 07-03-2021 15:01-0400 SaO2% (BldA) [Mass fraction] 97 % Michael Carballo Other Phone: [facility] 07-03-2021 15:01-0400 Systolic blood pressure 127 mm[Hg] Michael Carballo Other Phone: [facility] 07-03-2021 06:30-0400 Body weight 100.5 kg Michael Carballo Other Phone: [facility] 06-27-2021 13:00-0400 Diastolic blood pressure 69 mm[Hg] MD Michael Carballo Work Phone: [facility] 06-27-2021 13:00-0400 Heart rate 87 /min MD Michael Carballo Work Phone: [facility] 06-27-2021 13:00-0400 Respiratory rate 17 /min MD Michael Carballo Work Phone: [facility] 06-27-2021 13:00-0400 SaO2% (BldA) [Mass fraction] 94 % MD Michael Carballo Work Phone: [facility] 06-27-2021 13:00-0400 Systolic blood pressure 153 mm[Hg] MD Michael Carballo Work Phone: [facility] 06-27-2021 08:00-0400 Body temperature 97.9 [degF] MD Michael Carballo Work Phone: [facility] 06-27-2021 05:44-0400 Body weight 106.5 kg MD Michael Carballo Work Phone: [facility] 06-26-2021 14:12-0400 Body height 182.88 cm MD Michael Carballo Work Phone: [facility] 06-26-2021 00:24-0400 Body height 182.88 cm MD Michael Carballo Work Phone: [facility] 06-26-2021 00:24-0400 Body mass index (BMI) [Ratio] 32.8 kg/m2 MD Michael Carballo Work Phone: [facility] 06-26-2021 00:24-0400 Body temperature 97.7 [degF] MD Michael Carballo Work Phone: [facility] 06-26-2021 00:24-0400 Body weight 109.9 kg MD Michael Carballo Work Phone: [facility] 06-26-2021 00:24-0400 Diastolic blood pressure 100 mm[Hg] MD Michael Carballo Work Phone: [facility] 06-26-2021 00:24-0400 Heart rate 88 /min MD Michael Carballo Work Phone: [facility] 06-26-2021 00:24-0400 Respiratory rate 18 /min MD Michael Carballo Work Phone: [facility] 06-26-2021 00:24-0400 SaO2% (BldA) [Mass fraction] 96 % MD Michael Carballo Work Phone: [facility] 06-26-2021 00:24-0400 Systolic blood pressure 221 mm[Hg] MD Michael Carballo Work Phone: [facility] 12-19-2020 20:01-0400 Diastolic blood pressure 64 mm[Hg] Manuel Conner MD Work Phone: [employer] Work Phone: 12-19-2020 20:01-0400 Systolic blood pressure 182 mm[Hg] Manuel Conner MD Work Phone: [employer] Work Phone: 12-19-2020 19:00-0400 Heart rate 75 /min Manuel Conner MD Work Phone: [employer] Work Phone: 12-19-2020 19:00-0400 Respiratory rate 23 /min Manuel Conner MD Work Phone: [employer] Work Phone: 12-19-2020 19:00-0400 SaO2% (BldA) [Mass fraction] 94 % Manuel Conner MD Work Phone: [employer] Work Phone: 12-18-2020 06:30-0400 Body temperature 98.29 [degF] Manuel Conner MD Work Phone: [employer] Work Phone: Encounters Encounter Date Encounter Type Care Provider Facility Start: 09-28-2022 AUDIT Michael Carballo Work Phone: KM-Msgcwwhjhf-Tdzomxll SJ[facility] 260 DO Work Phone: Start: 07-24-2022 End: 07-24-[address] MICHAEL CARBALLO . Facility: Start: 07-15-2022 End: 07-15-[address] MICHAEL CARBALLO . Facility: Start: 07-13-2022 Patient encounter procedure Michael Carballo Work Phone: TY-Gfmdxtdhry-TFY [place] [address] Work Phone: Start: 07-13-2022 Phys/qhp telephone evaluation 11-20 min Michael Carballo Work Phone: JV-Onupndmlfj-MLN [facility] [address] Work Phone: Start: 07-13-2022 ambulatory MD SCOUT ROMO Facility:[facility] Start: 07-13-2022 End: 07-13-[address] MICHAEL CARBALLO . Facility: Start: 07-09-2022 AUDIT Michael Carballo Work Phone: TH-Ywelcnxvgq-OAG [facility] [address] Work Phone: Start: 06-08-2022 ambulatory Facility: [facility] Start: 06-05-2022 End: 06-05-[address] MICHAEL CARBALLO . Facility: Start: 06-04-2022 End: 06-04-[address] MICHAEL CARBALLO . Facility: Start: 04-14-2022 End: 04-15-2022 ambulatory DONNA Morfin [facility] Start: 04-14-2022 End: 04-14-2022 Subsequent hospital visit by physician Michael Carballo Work Phone: [facility] Start: 10-30-2021 End: 10-31-2021 ambulatory Manfred Wilson Facility:[facility] Start: 10-28-2021 End: 10-28-[address] MICHAEL CARBALLO . Facility: Start: 10-15-2021 Patient encounter procedure Michael Carballo Work Phone: AA-Hbcjhbdsfa-ARG [facility] [address] [place] Work Phone: Start: 10-15-2021 ambulatory DO FELICIA ASTORGA Facility:[facility] Start: 08-05-2021 End: 08-06-[address] MICHAEL CARBALLO . Facility: Start: 07-16-2021 Office outpatient vi sit 25 minutes Michael Carballo Work Phone: HI-Hkixjxynjb-CRG [facility] [address] [place] Work Phone: Start: 07-16-2021 Patient encounter procedure Michael Carballo Work Phone: OH-Moxbkgjhxo-ZXK [facility] [address] [place] Work Phone: Start: 06-27-2021 End: 07-03-2021 [id number] [id number] Start: 06-25-2021 End: 06-27-2021 Evaluation and management of inpatient MD Michael Carballo Work Phone: [facility] Start: 06-25-2021 Patient encounter procedure Michael Carballo Work Phone: VM-Ffqqxwdswp-GZQ [facility] [address] [place] Work Phone: Start: 06-24-2021 End: 06-24-2021 Patient encounter procedure MD Michael Carballo Work Phone: [facility] Start: 05-28-2021 AUDIT Michael Carballo Work Phone: RZ-Nufzprbftj-ZRL [facility] [address] [place] Work Phone: Start: 05-27-2021 End: 05-27-2021 Patient encounter procedure MD Michael Carballo Work Phone: [facility] Start: 01-01-2021 Patient encounter procedure Michael Carballo Work Phone: ZQ-Ohgliukmuz-DNF [facility] [address] [place] Work Phone: Start: 01-01-2021 WANG, Provider : Rizwan,Felicia, Status: Pen, Time: 2:20 PM Michael Carballo Work Phone: JM-Vhstlbsvis-Ixhskqsi [facility] 260 DO Work Phone: Start: 12-31-2020 AUDIT Michael Carballo Work Phone: IH-Znpiojrqnt-Fwgfglgf [facility] 260 DO Work Phone: Start: 12-17-2020 End: 12-19-2020 Emergency department patient visit Manuel Conner MD Work Phone: [facility] ED Comment on above: Reynolds coma scale t otal score 13-15, at hospital admission (Primary Dx); Acute kidney injury (HCC); Heart replaced by transplant (HCC); Confusion Start: 11-21-2020 AUDIT Michael Carballo Work Phone: EU-Zalvasehuu-LSY [facility] [place] [address] [place] Work Phone: Start: 10-31-2020 AUDIT Michael Carballo Work Phone: [facility] Work Phone: Procedures Date Procedure Procedure Detail [...] heart recipient Heart repla vaibhav by transplant ([facility]) Manuel Conner MD Work Phone: H/O: [...] Montse Villanueva, Status: Pen, Time: 2:00 PM EI-Wuhiuitjok-PTM [place] [address] Work Phone: Start: 07-13-2022 WANG, Provider : Scout Romo, Status: Pen, Time: 1:40 PM VIRFUCORI, Provider: Scout Romo, Status: Pen, Time: 1:40 PM LS-Gpdxpoivqk-XYX [place] [address] Work Phone: Start: 04-01-2022 WANG, Provider : Felicia Astorga, Status: Pen, Time: 1:00 PM WANG, Provider: Felicia Astorga, Status: Pen, Time: 1:00 PM PQ-Mhzkzjkknr-UNX [facility] [address] [place] Work Phone: Start: 12-19-2021 Creatinine measurement Creatinine [facility] Work Phone: Start: 12-19-2021 Potassium monitoring Potassium monit nyla [employer] Phone: Start: 10-20-2021 Influenza vaccination Flu vaccine (# 1) LEONID [facility] Start: 07-16-2021 Patient encounter procedure [facility] Start: 07-03-2021 End: 07-04-2022 Insulin Glargine (Lantus) Injectable Subcutaneous Once ; DOSE = 12 unit(s) SubCutaneous At BedtimeNotes from Pharmacy: [facility] Start: 03-Jul-2021 End: 03-Jul-2022 Ordered: 03-Jul-2021 Magy Galeas Intent [facility] Start: 07-01-2021 End: 07-02-2022 [facility] Comment on above: IF patient HAS a [...] End: 30-Jun-2022 Ordered: 30-Jun-2021 Jihan Storm Intent [facility] Start: 06-27-2021 End: 06-28-2022 Sodium Chloride 0.9% Injectable Flush Peripheral Line ; via Peripheral LineVolume = 10 mL IntraVenous Flush Every 8 Hours and as Needed Start: 27-Jun-2021 End: 27-Jun-2022 Ordered: 26-Jun-2021 Magy Galeas Intent [facility] Start: 06-26-2021 Duplex scan of upper limb arteries US arterial duplex UE RT [facility] Start: 12-17-2020 Annual Wellness Visi t (AWV) Annual Wellness Visit (AWV) [employer] Start: 11-20-2020 Influenza vaccination Flu vaccine (# 1) [employer] Work Phone: Start: 07-16-2020 COVID-19 Vaccine (3 - Pfizer risk 3-dose series) COVID-19 Vaccine (3 - Pfizer risk 3-dose series) [employer] Work Phone: Start: 07-16-2020 COVID-19 Vaccine (3 - Pfizer risk series) COVID-19 Vaccine (3 - Pfizer risk series) [employer] Start: 10-01-2016 Pneumococcal 65+ yrs at Risk Vaccine (2 of 2 - PCV13) Pneumococcal 65+ yrs at Risk Vaccine (2 of 2 - PCV13) [employer] Phone: Start: 10-10-1993 Shingles Vaccine (1 of 2) Shingles Vaccine (1 of 2) [employer] Work Phone: Start: 10-10-1962 DTaP/Tdap/Td vaccine (1 - Tdap) DTaP/Tdap/Td vaccine (1 - Tdap) [employer] Start: 10-10-1962 Shingles vaccine (1 of 2) Shingles vaccine (1 of 2) [employer] Start: 10-10-1961 Hepatitis C screening Hepatitis C sc reen [facility] [employer] Start: 1955 Depression Screen Depression Screen [facility] Start: 10-10-1953 Lipid panel [facility] Start: 1943 Hepatitis C screening Hepatitis C sc reen [facility] Work Phone: Calcium [Mass/volume ] in Serum or Plasma [facility] Work Phone: Carbon dioxide, tota l [Moles/volume] in Serum or Plasma [facility] Work Phone: Chloride [Moles/volu me] in Serum or Plasma [facility] Work Phone: Creatinine and Glomerular filtration rate.predicted panel - Serum, Plasma or Blood [facility] Work Phone: [facility], [facility] Work Phone: Culture, Wound Culture, Wound Microbiology Routine 04/14/2022 3:25 PM EST [facility] [employer] Work Phone: Glucose [Mass/volume ] in Serum or Plasma [facility] Work Phone: Goals of care, counseling/discussion [facility] Measurement of renal function [facility] Work Phone: Potassium [Moles/volume] in Serum or Plasma [facility] Work Phone: Sodium [Moles/volume ] in Serum or Plasma [facility] Work Phone: Tacrolimus [Mass/volume] in Blood [facility] Work Phone: End: 12-18-2020 Tacrolimus Level [facility] Work Phone: Comment on above: One Time for 1 Occur rences starting 12/18/2020 until 12/18/2020 End: 12-19-2020 Tacrolimus Level Tacrolimus Level Lab Routine One Time for 1 Occurrences starting 12/19/2020 until 12/19/2020 [employer] Work Phone: Comment on above: One Time for 1 Occur rences starting 12/19/2020 until 12/19/2020 Tacrolimus Level [facility] Work Phone: Urea nitrogen [Mass/volume] in Serum or Plasma [facility] Work Phone: Immunizations Immunization Date Immunization Notes Care Provider Haven de leon 03-21-2021 Pfizer-BioNTech COVI D-19 Vacc 30 MCG/0.3ML Intramuscular Suspension Michael Carballo Work Phone: [facility] Heather Vallecillo [address] [place] Work Phone: 06-18-2020 Pfizer-BioNTech COVI D-19 Vacc 30 MCG/0.3ML Intramuscular Suspension Michael Candelario Carballo Work Phone: [facility] Work Phone: 05-27-2020 Pfizer-BioNTech COVI D-19 Vacc 30 MCG/0.3ML Intramuscular Suspension Michael E Carballo Work Phone: [facility] Work Phone: 12-29-2019 Seasonal trivalent influenza vaccine, adjuvanted, preservative free Michael Palomino Carballo Work Phone: [facility] Work Phone: 12-22-2017 Seasonal trivalent influenza vaccine, adjuvanted, preservative free Michael Palomino Carballo Work Phone: [facility] Work Phone: 12-28-2016 Seasonal trivalent influenza vaccine, adjuvanted, preservative free Michael Palomino Carballo Work Phone: [facility] Work Phone: 12-24-2015 influenza, high dose seasonal, preservative-free Michael Palomino Carballo Work Phone: [facility] Work Phone: 10-02-2015 influenza, seasonal, injectable Michael Palomino Carballo Work Phone: [facility] Work Phone: 10-02-2015 pneumococcal polysaccharide vaccine, 23 valent Michael Palomino Carballo Work Phone: [facility] Work Phone: 01-09-2015 influenza, injectabl e, quadrivalent, contains preservative Michael Palomino Carballo Work Phone: [facility] Work Phone: 01-03-2013 influenza, seasonal, injectable Michael Palomino Carballo Work Phone: [facility] Work Phone: 01-07-2009 influenza virus vacc ine, whole virus Michael Christianight Work Phone: [facility] Work Phone: 01-20-2005 influenza virus vacc ine, whole virus Michael Palomino Carballo Work Phone: [facility] Work Phone: Payers Date Payer Category Payer Self-pay [id number] 1961 Medicaid [id number] 1961 Medicare [id number] 1961 Medicare [id number] 1959 Private Health Insurance [id number] 1943 Unknown [id number] 2.16.8 [id number] 1943 Unknown [id number] 2.16.84 [id number] 1943 Unknown [id number] 2.16.84 [id number] 1943 Unknown [id number] 2.16.84 [id number] 1943 Unknown [id number] 2.16.84 [id number] 1943 Unknown [id number] 2.16.84 [id number] 1943 Unknown [id number] 2.16.84 [id number] 1943 Unknown [id number] 2.16.84 [id number] 1943 Unknown [id number] 2.16. [id number] 1943 Unknown [id number] 2.16. [id number] Unknown Unknown [id number] 2.16.8 [id number] Social History Date Type Detail Facility Former smoker Former smoker [employer] Work Phone: Start: 12-17-2020 Tobacco smoking stat us WAIS Unknown if ever smoked [employer] Work Phone: Start: 1945 Sex Assigned At Not on file [facility] [employer] Work Phone: Exposure to SARS-CoV -2 (event) Unable to assess [facility] Start: 12-13-2020 [facility] Start: 1945 Sex Assigned At Male [facility] Start: 06-26-2021 End: 06-26-2021 Tobacco smoking status NHIS Ex-smoker (finding) [facility] End: 03-22-1996 History of tobacco use [facility] Work Phone: Goals Date Patient Goal Desired Activity /State Functional Status Date Assessment Result Facility 06-27-2021 Functional status Patient at Baseline [facility] Work Phone: Functional observable [facility] Mental Status Date Assessment Result Facility 06-30-2021 Cognitive functi ons [id number] [facility] 06-27-2021 Cognitive function Cognitive Sta tus Patient at Baseline [facility] Work Phone: Clinical Notes 07-05-2000 to 07-03-2021 <item><item><item><item><item><item><item><item><item> Note Date & Type Note Facility 07-03-2021 Hospital Discharge instructions Activity:activity with assistance. May shower.Labs 1 (Modify Template):Lab Test(s): Basic Metabolic Panel, CBC, Tacrolimus levelDate To Be Drawn: 07/07/2021all Results To: Dr. Felicia Moore Results To: [id number] Orders:Blood Glucose Monitoring: ACHSAdditional Instructions: Use of [...] Uncontrolled diabetesCall to Schedule in: 2 weeksLocation[facility] Follow Up Appointment 2:Physician/Dept/Service: Dr. Felicia Astorga / Heart failure and transplantReason for Referral: hospital follow-upLocation: [facility] 1800Comments: Our office will call you to set up an appointment either in person or virtually. [facility] 06-27-2021 Discharge summary Note Date/Time June 27, 2021 10:32am [facility] [address] [place] [address] Discharge Summary Signed Patient: Oliverio Escobedo MR#: [id number] : 1945 Acct:[id number] Age/Sex: 75 / M Adm Date: 2 Loc: Room: [address] [place] [address]: Yoshi Hernandez MD Copies to: MD Justa OlveraREPLACED BY [facility] Howard Providers Date of Discharge: 06/27/21 Discharging [...] 1 tab PO BID RF: 0 omega 8-uxx-jdw-fish oil [Fish Oil] 1,000 mg (120 mg-180 [...] signed by Yoshi Hernandez MD> 06/27/21 1032 [facility] Work Phone: 1(632) 823-648904-08-2022 Progress note Author Bonilla Ortiz [facility] June 27, 2021 10:27am Note Date/Time June 27, 2021 10:2 7am [facility] [address] [place] [address] Cardiology Progress Note Signed Patient: Oliverio Escobedo MR#: [id number] : 1945 Acct:[id number] Age/Sex: 75 / M Adm Date: 2 Loc: 3T Room: [address] [place] [address] Type : ADM INOo Attending Dr: Yoshi Hernandez MD Copies to: ~ Date of Service: 06/27/2021 Subjective Principal diagnosis: Edema w history of orthotopic heart transplant Interval history: Mr. Escobedo is a 75 year old male with known history of orthotopic heart transplantation in 2000 done at [facility] who was admitted to the inpatient hospitalist service last night after presenting from the [facility] with complaints of increasing swelling in both legs and the right arm for several days. The patient is resting comfortably this morning. He did diurese gently yesterday. He currently has no cardiac complaints. His breathing feels comfortable lying flat at rest. Swelling in both feet and calves is still present. NB: The patient has been accepted by the transplant service at [facility]. At this point we are awaiting bed [...] Agree with transfer to transplant service at [facility] for further management. Plan Thank you very much for this kind consultation and for allowing me to participate in the care of this very pleasant patient. Time spent with patient Time Spent With Patient (min): 20 Documented By: Bonilla Ortiz MD 06/27/21 1024 Signed By: <Electronically signed by Bonilla Ortiz MD> 06/27/21 1027 [facility] Work Phone: 1(229) 595-243504-07-2022 Progress note Author Yoshi Wu [facility] June 26, 2021 6:27pm Note Date/Time June 26, 2021 6:27 pm [facility] [address] [place] [address] Hospitalist Progress Note Signed Patient: Oliverio Escobedo MR#: [id number] : 1945 Acct:[id number] Age/Sex: 75 / M Adm Date: 2 Loc: Room: [address] [place] [address] Type : ADM INOo Attending Dr: Yoshi [...] Oil 1,000 mg 06/26/21 09:00 06/26/21 09:01 Vina-3/Fish Oil 1,000 Mg Capsule PO 06/26/22 08:59 [...] <Electronically signed by Yoshi Hernandez MD> 06/26/21 135 [facility] Work Phone: 1(997) 618-333504-07-2022 Consult note Author Bonilla Ortiz [facility] June 26, 2021 2:26pm Note Date/Time June 26, 2021 2:23 pm [facility] [address] [place] [address] Cardiology Consult Note Signed Patient: Oliverio Escobedo MR#: [id number] : 1945 Acct:[id number] Age/Sex: 75 / M Adm Date: 2 Loc: Room: [address] [place] [address] Type : ADM INOo Attending Dr: Yoshi Hernandez MD Copies to: MD Manfred Olvera(REPLACED BY [facility]) DO Bonilla Wilson MD~ Cardiology HPI History of Present Illness Consult Date: 06/26/21 Reason for Consult: Bilateral lower extremity swelling Remote history of orthotopic heart transplantation HPI: Mr. Escobedo is a 75 year old male with known history of orthotopic heart transplantation in 2000 done at [facility] who was admitted to the inpatient hospitalist service last night after presenting from the [facility] with complaints of increasing swelling in [...] the results were sent to his transplant roll table operator in [place]. She doesnot know the results. On my evaluation the patient was undergoing bedside transthoracic echocardiography. Preliminary interpretation of the study shows normal resting left ventricular regional wall motion and systolic function. Ejection fraction appears greater than 55%. There is no notable pericardial or pleural effusion. There is no notable/significant valvular heart disease noted. By report the patient's transplant service at [facility] has been contacted and is requested the [...] Medical History (Updated 06/26/21 @ 14:24 by Bonilla Ortiz MD) Diabetes HTN (hypertension) Surgical History [...] PO BID 02/02/17 [History Confirmed 06/25/21] omega 2-ied-sug-fish oil 1,000 mg (120 mg-180 mg) capsule [...] x10E3/uL Lymph # (Auto) 1.0 (1.00-4.8) x10E3/uL Eagle # (Auto) 0.5 (0.0-0.8) x10E3/uL Eos # [...] Agree with transfer to transplant service at [facility] for further management. Code(s): Z94.1 - Heart transplant status Plan Thank you very much for this kind consultation and for allowing me to participate in the care of this very pleasant patient. Documented By: Bonilla Ortiz MD 06/26/21 1415 Signed By: <Electronically signed by Bonilla Ortiz MD> 06/26/21 1426 [facility] Work Phone: 1(513) 364-105004-07-2022 History and physical note Author Omid Myrick [facility] June 26, 2021 7:44am Note Date/Time June 26, 2021 12:1 6am [facility] [address] [place] [address] Hospitalist H&P Signed Patient: Oliverio Escobedo MR#: [id number] : 1945 Acct:[id number] Age/Sex: 75 / M Adm Date: 2 Loc: 3T Room: [address] [place] [address] Type : ADM INOo Attending Dr: Yoshi Hernandez MD Copies to: MD Manfred Olvera(REPLACED BY [facility]) DO Audra Wilson APRN Marwan Wassouf, MD~ [...] been trying to schedule an appointment with [facility] roll table operator but were unable. Patient is hard of [...] PO BID 02/02/17 [History Confirmed 06/25/21] omega 9-egz-zuo-fish oil 1,000 mg (120 mg-180 mg) capsule [...] Lymph % (Auto) 12.9 % (.) 06/25/21: Eagle % (Auto) 7.3 % (.) 06/25/21: Eos % (Auto) 4.6 % (.) 06/25/21: Baso % (Auto) 0.6 % (.) 06/25/21: Neut # (Auto) 5.6 x10E3/uL (1.8-7.7) 06/25/21: Lymph # (Auto) 1.0 x10E3/uL (1.00-4.8) 06/25/21: Eagle # (Auto) 0.5 x10E3/uL (0.0-0.8) 06/25/21: Eos [...] MD Documented By: Audra Quinteros APRN 06/25/21 7409 Signed By: <Electronically signed by GABBIE Quinteros> 06/26/21 0057 <Electronically signed by Omid Myrick MD> 06/26/21 0944 [facility] Work Phone: 1(160) 865-270009-30-2021 Evaluation note* Diagnosis Reynolds coma scale total score 13-15, at hospital admission- Primary Acute kidney injury (HCC) Acute kidney failure, unspecified Heart replaced by transplant (HCC) Heart replaced by transplant Confusion Unspecified psychosis [facility] Work Phone: 1(406) 218-536709-30-2021 History of Present illness Narrative* 74 yo [...] trazodone, trazodone and aripirazole. Discharged back to [facility] with 2x/week home trips. * Immunosuppression: MMF 250 mg BID, tacrolimus 1.5 mg BID (FK 5.4 on 12/24/20, goal 5-8) * Rejection Hx/DSAs: None documented * Last echo: 12/20/20 BL-Hjpraorjsa-AHD Heather K[address]arsten [address] [place] Work Phone: 1([phone]) 631-311209-28-2021 History of Present illness Narrative* Liliya Baker RN - 12/17/2020 10:31 AM EDT Spoke with nurse from [facility] at this time. They will fax lab work to us from [facility]. documented in this [facility] Work Phone: [phone] 344-437404-16-2001 History of Present illness Narrative* Mr. Escobedo [...] September 2021. [place] He has started Zoloft for depression. 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 Needs assistance with transfers. He has not had any new doctors appointmetns. * Immunosuppression: MMF 250 mg BID, tacrolimus 1 mg BID (FK 11.0 on 10/10/21, goal 5-8) * Rejection Hx/DSAs: None documented * Last echo: 12/20/20 OD-Niyaofocyk-TZS Heather [address] Work Phone: Chief complaint Narrative [...] 04:20 PM , for a telehealth visit. PZ-Uhrwtfktgi-UHY Heather Vallecillo [address] [place] Work Phone: Evaluation noteNo assessment information available [facility] Work Phone: Evaluation note* Diagnosis Onset Date Resolution Status Acute kidney injury acute Bilateral edema of lower extremity acute Shortness of breath acute [facility] Work Phone: Evaluation note* Diagnosis Onset Date Resolution Status Acute kidney injury acute Bilateral edema of lower extremity acute History of heart transplant acute Shortness of breath acute [facility] Work Phone: Evaluation note* Psychological: Appropriate [...] distress, alert and cooperative, hard of hearing [facility]* Mr. Escobedo is [...] trazodone, trazodone and aripirazole. Discharged back to [facility] with 2x/week home trips. * Immunosuppression: MMF 250 mg BID, tacrolimus 1.5 mg BID (FK 5.4 on 12/24/20, goal 5-8) * Rejection Hx/DSAs: None documented * Last echo: 12/20/20 KI-Sahsmrblhd-DOE [employer] [address] [place] Work Phone: History of Present [...] B/L LE edema. Spoke with RN at [facility]; states LE edema has been ongoing for several weeks, with a rash . * Labs drawn 06/24/21; BNP 224 * Immunosuppression: MMF 250 mg BID, tacrolimus 1.5 mg BID (FK 5.4 on 12/24/20, goal 5-8) - FK pendingfrom 06/24/21 from SNF * Rejection Hx/DSAs: None documented * Last echo: 12/20/20 ZY-Ykuyxxogtz-OWT [employer] [address] [place] Work Phone: History of Present [...] Hx/DSAs: None documented * Last echo: 12/20/20 RK-Hcorstnvcs-SQH Heather Vallecillo [address] [place] Work Phone: History [...] Hx/DSAs: None documented * Last echo: 12/20/20 WI-Ywefjasizx-TIV Heather Vallecillo [address] [place] Work Phone: History [...] Hx/DSAs: None documented * Last echo: 12/20/20 AX-Gkwvvkcvfl-ARZ Heather Vallecillo [address] [place] Work Phone: Reason for referral (narrative)* Reason for Referral: HF, DAVID, scabies [facility] Family History No Family History Records FoundUnknown [...] content) Reason Comments Altered Mental Status onset 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; staff state pt would not respond and stared off into space Hypotension [employer] staff from [place] rn state BP 70s/ANGELICA [...] is suspension with MINIMUM of SIZE 8 AMHARIC 1500 (Given - Provider: Sola Dee RN)[id number] [...] Active Yoshi Hernandez MD Attending Provider Active 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 Relationship Specialty Start Date End Date Michael Carballo [address] [place] [address] PCP - General Specialist 12/17/20 Goals (unrecognized [...] section and content) DATE CREATED AUTHOR 07/14/2021 [facility] DATE CREATED AUTHOR AUTHOR'S ORGANIZ ATION 04/18/2022 [facility] DATE CREATED AUTHOR AUTHOR'S ORGANIZ ATION 07/17/2022 [employer] DATE CREATED AUTHOR AUTHOR'S ORGANIZ ATION 07/31/2022 [facility] DATE CREATED AUTHOR AUTHOR'S ORGANIZ ATION 09/07/2022 [facility] DATE CREATED AUTHOR AUTHOR'S ORGANIZ ATION 09/14/2022 [facility] DATE CREATED AUTHOR AUTHOR'S ORGANIZ ATION 11/21/2022 [facility] FOR RECORDS PERTAINING TO PATIENTS WHO ARE [...] BE BASED ON THE PRIMARY CLINICAL RECORDS. [employer] provides no warranty or guarantee of the accuracy or completeness of information in this document.
[2023-04-14 18:20] LABS: Basophils Percent Auto 0.2 % (0.2-2.0); Eosinophils Absolute Auto 0.1 10^3/uL (0.0-0.7); Eosinophils Percent Auto 0.7 % (0.9-7.0); Hematocrit 32.5 % (42.0-54.0); Hemoglobin 9.6 g/dL (14.0-18.0); Immature Granulocytes Abs Auto 0.05 10^3/uL (0.00-0.03); Immature Granulocytes Pct Auto 0.5 % (0.0-0.5); Lymphocytes Absolute Auto 0.3 10^3/uL (1.2-3.8); Lymphocytes Percent Auto 3.7 % (20.5-60.0); Mean Corpuscular HGB Conc 29.5 g/dL (29.9-35.2); Mean Corpuscular Hemoglobin 27.5 pg (25.9-34.0); Mean Corpuscular Volume 93.1 fL (80.0-94.0); Mean Platelet Volume 10.9 fL (9.5-13.5); Monocytes Absolute Auto 0.7 10^3/uL (0.3-0.8); Monocytes Percent Auto 7.7 % (1.7-12.0); Neutrophils Percent Auto 87.2 % (43.0-75.0); Platelet Count 140 10^3/uL (150-450); Red Blood Count 3.49 10^6/uL (4.70-6.10); Red Cell Distribution Width 13.7 % (11.0-15.0); White Blood Count 9.1 10^3/uL (4.0-11.0)
[2023-04-14 18:31] LABS: Alanine Aminotransferase 11 U/L (16-63); Albumin Globulin Ratio 0.6; Albumin Level 2.6 g/dL (3.4-5.0); Alkaline Phosphatase 74 U/L (46-116); Anion Gap 16.5; Aspartate Amino Transferase 17 U/L (15-37); BUN Creatinine Ratio 14.1; Bilirubin Total 0.2 mg/dL (0.2-1.0); Calcium 8.5 mg/dL (8.5-10.1); Carbon Dioxide 26.4 mmol/L (21.0-32.0); Chloride 102 mmol/L (98-107); Estimated GFR (African America 21 (>=60); Estimated GFR (Non-African Ame 17 (>=60); Globulin 4.6 g/dL; Glucose 180 mg/dL (74-106); Potassium 3.9 mmol/L (3.5-5.1); Sodium 141 mmol/L (136-145); Total Protein 7.2 g/dL (6.4-8.2)
[2023-04-14 18:36] LABS: Troponin I High Sensitivity 25.4 pg/mL (4.0-76.1)
--- NOTE | 2023-04-14 18:40 | ED.AMS1 ---
HPI - Altered Mental Status General Chief Complaint: Altered Mental Status Stated Complaint: cardiac Time Seen by Provider: 04/14/23 18:03 Source: patient Mode of arrival: ambulance Limitations: language barrier and physical limitation History of Present Illness HPI narrative: Patient is coming to us from a half-way facility with a chest pain that started after he fell down from his recliner, the patient is hard of hearing and is not able to provide us with what exactly happened to him but he have a history of heart transplant 22 years ago and he did mention that he has been having severe pain since the fall and when he fell down he had anterior chest as well as the left side of his face. There is no headache no neck pain no nausea no vomiting no abdominal pain The patient pain was severe and he already received morphine by the EMS before arrival Related Data Allergies Allergy/AdvReac Type Severity Reaction Status Date / Time allopurinol AdvReac Intermediate Verified 04/14/23 18:08 cefazolin AdvReac Intermediate Verified 04/14/23 18:08 Review of Systems ROS Status of ROS 10 or more systems reviewed and unremarkable except as noted in history and below Exam Narrative Exam Narrative: Nurses notes and vital signs reviewed and patient is not hypoxic. General: Well-appearing and in no apparent distress. Skin: Warm, dry, no pallor noted. No rash. Head: Normocephalic, atraumatic. Neck: Supple, non-tender. Eye: Pupils are equal, round and EOMI. No scleral icterus. Ears, Nose, Mouth, and Throat: TM are clear, no nasal mucosal hypertrophy. Oral mucosa is moist, no posterior oropharynx erythema, uvula is mid-line Cardiovascular: Regular Rate and Rhythm without murmur, gallop or rub. Respiratory: No accessory muscle use or respiratory distress. Lungs are clear to auscultation, no wheezing, rales or rhonchi Chest Wall: The patient have a scar of previous surgery across the sternum and he is tender all over with no specific ecchymosis or open wounds Back: No midline thoracic or lumbar vertebral tenderness. No CVA tenderness Musculoskeletal: normal ROM, no calf or popliteal tenderness, no lower extremity edema/swelling GI: Abdomen is soft, abdomen is distended nontender. Neurological: A&O x4. No cranial nerve dysfunction observed. No truncal ataxia. Moves all extremities. Sensation intact. Psychiatric: Cooperative and interactive. Normal mood and affect. Constitutional Vital Signs, click to edit/add: Last Vital Signs Temp 98.5 F 04/14/23 18:02 Pulse 90 04/14/23 18:02 Resp 18 04/14/23 18:02 BP 119/87 04/14/23 18:02 Pulse Ox 99 04/14/23 18:02 O2 Del Method Room Air 04/14/23 18:02 Course Vital Signs Vital signs: Vital Signs Temperature 98.5 F 04/14/23 18:02 Pulse Rate 90 04/14/23 18:02 Respiratory Rate 18 04/14/23 18:02 Blood Pressure 119/87 04/14/23 18:02 Pulse Oximetry 99 04/14/23 18:02 Oxygen Delivery Method Room Air 04/14/23 18:02 Temperature 98.5 F 04/14/23 18:02 Pulse Rate 90 04/14/23 18:02 Respiratory Rate 18 04/14/23 18:02 Blood Pressure 119/87 04/14/23 18:02 Pulse Oximetry 99 04/14/23 18:02 Oxygen Delivery Method Room Air 04/14/23 18:02 MDM - Altered Mental Status MDM Narrative Medical decision making narrative: The patient EKG showing sinus rhythm with a heart rate of [address] elevation or depression The patient CBC and chemistry showed no acute significant pathology CAT scan of the chest as well as head abdomen and neck are still pending the patient care will be transferred to Dr. Cota Lab Data Labs: Lab Results 04/14/23 Range/Units 18:10 WBC 9.1 (4.0-11.0) 10^3/uL RBC 3.49 L (4.70-6.10) 10^6/uL Hgb 9.6 L (14.0-18.0) g/dL Hct 32.5 L (42.0-54.0) % MCV 93.1 (80.0-94.0) fL MCH 27.5 (25.9-34.0) pg MCHC 29.5 L (29.9-35.2) g/dL RDW 13.7 (11.0-15.0) % Plt Count 140 L (150-450) 10^3/uL MPV 10.9 (9.5-13.5) fL Neut % (Auto) 87.2 H (43.0-75.0) % Lymph % (Auto) 3.7 L (20.5-60.0) % [place] % (Auto) 7.7 (1.7-12.0) % Eos % (Auto) 0.7 L (0.9-7.0) % Baso % (Auto) 0.2 (0.2-2.0) % Neut # (Auto) 8.0 H (1.4-6.5) 10^3/uL Lymph # (Auto) 0.3 L (1.2-3.8) 10^3/uL [place] # (Auto) 0.7 (0.3-0.8) 10^3/uL Eos # (Auto) 0.1 (0.0-0.7) 10^3/uL Baso # (Auto) 0.0 (0.0-0.1) 10^3/uL Abs Immat Gran (auto) 0.05 H (0.00-0.03) 10^3/uL Imm/Tot Granulo (auto) 0.5 (0.0-0.5) % Sodium 141 (136-145) mmol/L Potassium 3.9 (3.5-5.1) mmol/L Chloride 102 (98-107) mmol/L Carbon Dioxide 26.4 (21.0-32.0) mmol/L Anion Gap 16.5 BUN 49.0 H (7.0-18.0) mg/dL Creatinine 3.48 H (0.70-1.30) mg/dL Est GFR ( Amer) 21 L (>=60) Est GFR (Non-Af Amer) 17 L (>=60) BUN/Creatinine Ratio 14.1 Glucose 180 H (74-106) mg/dL Calcium 8.5 (8.5-10.1) mg/dL Total Bilirubin 0.2 (0.2-1.0) mg/dL AST 17 (15-37) U/L ALT 11 L (16-63) U/L Alkaline Phosphatase 74 (46-116) U/L Troponin I High Sens 25.4 (4.0-76.1) pg/mL Total Protein 7.2 (6.4-8.2) g/dL Albumin 2.6 L (3.4-5.0) g/dL Globulin 4.6 g/dL Albumin/Globulin Ratio 0.6 Discharge Plan Discharge Patient Disposition: Still a Patient
--- NOTE | 2023-04-14 18:46 | PC.NURSE ---
Patient had stroke in 2016. Physical therapy was done but he never regained 100% mobility. Is veryweak when standing and has balance issues. Fall came from him falling onto his food tray and landing on it. Chest pain appears to be his main complaint.
--- NOTE | 2023-04-14 19:40 | ED.GENADUL1 ---
HPI - General Adult General Chief complaint: Altered Mental Status Stated complaint: cardiac Time Seen by Provider: 04/14/23 18:03 Source: patient Mode of arrival: ambulance Limitations: language barrier and physical limitation History of Present Illness HPI narrative: 77-year-old male presented and was initially seen by Dr. Zhang. Please see her full history and physical. Related Data Allergies Allergy/AdvReac Type Severity Reaction Status Date / Time allopurinol AdvReac Intermediate Verified 04/14/23 18:08 cefazolin AdvReac Intermediate Verified 04/14/23 18:08 Exam Constitutional Vital Signs, click to edit/add: Last Vital Signs Temp 98.5 F 04/14/23 18:02 Pulse 92 H 04/14/23 19:13 Resp 22 04/14/23 19:13 BP 167/97 H 04/14/23 19:13 Pulse Ox 93 L 04/14/23 19:10 O2 Del Method Room Air 04/14/23 18:02 Course Vital Signs Vital signs: Vital Signs Temperature 98.5 F 04/14/23 18:02 Pulse Rate 90 04/14/23 18:02 Respiratory Rate 18 04/14/23 18:02 Blood Pressure 119/87 04/14/23 18:02 Pulse Oximetry 99 04/14/23 18:02 Oxygen Delivery Method Room Air 04/14/23 18:02 Temperature 98.5 F 04/14/23 18:02 Pulse Rate 92 H 04/14/23 19:13 Respiratory Rate 22 04/14/23 19:13 Blood Pressure 167/97 H 04/14/23 19:13 Pulse Oximetry 93 L 04/14/23 19:10 Oxygen Delivery Method Room Air 04/14/23 18:02 Medical Decision Making [facility] Narrative Medical decision making narrative: CAT scans are all negative and he is able to be released back to [facility]. Findings are discussed with the patient and the patient's . Differential Diagnosis Differential Diagnosis: it's cranial hemorrhage, rib fracture, pneumothorax Lab Data Lab results reviewed: Yes I reviewed the patient's lab results Labs: Lab Results 04/14/23 Range/Units 18:10 WBC 9.1 (4.0-11.0) 10^3/uL RBC 3.49 L (4.70-6.10) 10^6/uL Hgb 9.6 L (14.0-18.0) g/dL Hct 32.5 L (42.0-54.0) % MCV 93.1 (80.0-94.0) fL MCH 27.5 (25.9-34.0) pg MCHC 29.5 L (29.9-35.2) g/dL RDW 13.7 (11.0-15.0) % Plt Count 140 L (150-450) 10^3/uL MPV 10.9 (9.5-13.5) fL Neut % (Auto) 87.2 H (43.0-75.0) % Lymph % (Auto) 3.7 L (20.5-60.0) % [place] % (Auto) 7.7 (1.7-12.0) % Eos % (Auto) 0.7 L (0.9-7.0) % Baso % (Auto) 0.2 (0.2-2.0) % Neut # (Auto) 8.0 H (1.4-6.5) 10^3/uL Lymph # (Auto) 0.3 L (1.2-3.8) 10^3/uL [place] # (Auto) 0.7 (0.3-0.8) 10^3/uL Eos # (Auto) 0.1 (0.0-0.7) 10^3/uL Baso # (Auto) 0.0 (0.0-0.1) 10^3/uL Abs Immat Gran (auto) 0.05 H (0.00-0.03) 10^3/uL Imm/Tot Granulo (auto) 0.5 (0.0-0.5) % Sodium 141 (136-145) mmol/L Potassium 3.9 (3.5-5.1) mmol/L Chloride 102 (98-107) mmol/L Carbon Dioxide 26.4 (21.0-32.0) mmol/L Anion Gap 16.5 BUN 49.0 H (7.0-18.0) mg/dL Creatinine 3.48 H (0.70-1.30) mg/dL Est GFR ( Amer) 21 L (>=60) Est GFR (Non-Af Amer) 17 L (>=60) BUN/Creatinine Ratio 14.1 Glucose 180 H (74-106) mg/dL Calcium 8.5 (8.5-10.1) mg/dL Total Bilirubin 0.2 (0.2-1.0) mg/dL AST 17 (15-37) U/L ALT 11 L (16-63) U/L Alkaline Phosphatase 74 (46-116) U/L Troponin I High Sens 25.4 (4.0-76.1) pg/mL Total Protein 7.2 (6.4-8.2) g/dL Albumin 2.6 L (3.4-5.0) g/dL Globulin 4.6 g/dL Albumin/Globulin Ratio 0.[address] brain: Radiologist's impression: ITS Impressions Cervical Spine CT 04/14/23 18:03 IMPRESSION: No CT evidence of acute intracranial abnormality. Areas of remote infarct in bilateral frontal lobes. Chronic microvascular ischemia and involutional changes. Vascular calcifications CT CERVICAL SPINE FINDINGS: No acute fracture or posttraumatic malalignment is seen. The dens and lateral masses of C1 are symmetric. There is straightening of the normal cervical lordotic curvature. There is mild retrolisthesis of C6 on C7. Decreased bone mineralization is noted. There is severe narrowing of disc height at C5-6 level with degenerative endplate changes There is disc-osteophyte complex at C5-6 level, resulting in moderate central canal narrowing. There are multilevel neural foraminal narrowing, severe at bilateral C5-6, C6-7; moderate at right C3-4; mild at left C2-3 and left C3-4, secondary to uncovertebral and facet arthropathy The prevertebral soft tissue space appears normal. IMPRESSION: No visualized acute cervical spine abnormality. Multilevel cervical spondylosis, most pronounced at C5-6 level, as described. Electronically authenticated by: [facility] Date: 04/14/2023 19:02 Chest X-Ray 04/14/23 18:03 IMPRESSION: The heart appears mildly enlarged in this projection. There is no clear evidence of a focal infiltrate or overt cardiac decompensation. The study is limited by shallow inspiration and projection. A follow-up study encouraging the patient to take a deep inspiration in the fully upright position is recommended. Electronically authenticated by: BRANDT PRUETT Date: 04/14/2023 18:[address] 04/14/23 18:03 IMPRESSION: No CT evidence of acute intracranial abnormality. Areas of remote infarct in bilateral frontal lobes. Chronic microvascular ischemia and involutional changes. Vascular calcifications CT CERVICAL SPINE FINDINGS: No acute fracture or posttraumatic malalignment is seen. The dens and lateral masses of C1 are symmetric. There is straightening of the normal cervical lordotic curvature. There is mild retrolisthesis of C6 on C7. Decreased bone mineralization is noted. There is severe narrowing of disc height at C5-6 level with degenerative endplate changes There is disc-osteophyte complex at C5-6 level, resulting in moderate central canal narrowing. There are multilevel neural foraminal narrowing, severe at bilateral C5-6, C6-7; moderate at right C3-4; mild at left C2-3 and left C3-4, secondary to uncovertebral and facet arthropathy The prevertebral soft tissue space appears normal. IMPRESSION: No visualized acute cervical spine abnormality. Multilevel cervical spondylosis, most pronounced at C5-6 level, as described. Electronically authenticated by: LEO ELLER Date: 04/14/2023 19:02 Abdomen/Pelvis CT 04/14/23 18:05 IMPRESSION: No acute traumatic findings of the chest abdomen and pelvis. Findings of a colitis/diarrheal illness. 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 Electronically authenticated by: TAHIRA DUMAS Date: 04/14/2023 19:[address] 04/14/23 18:05 IMPRESSION: No acute traumatic findings of the chest abdomen and pelvis. Findings of a colitis/diarrheal illness. 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 Electronically authenticated by: TAHIRA DUMAS Date: 04/14/2023 19:30 Discharge Plan Discharge Chief Complaint: Altered Mental Status Clinical Impression: Acute chest wall pain Head trauma Qualifiers: Encounter type: initial encounter Qualified Code(s): S09.90XA - Unspecified injury of head, initial encounter Patient Disposition: Home, Self-Care Time of Disposition Decision: 19:39 Condition: Good Mode of Transportation: EMS Instructions: Head Injury (ED), Fall Prevention (ED) Stand Alone Forms: Portal Instructions Referrals: Physician,Non-Staff, MD [Primary Care Provider] - 1 week
== END 2023-04-14 21:49 | disposition home or self-care (01) ==
PROVIDERS: Emergency Medicine; Emergency Provider Emergency Medicine
DX: R07.89 Other chest pain (principal); S09.90XA Unspecified injury of head, initial encounter; M47.812 Spondylosis without myelopathy or radiculopathy, cervical region; W07.XXXA Fall from chair, initial encounter; H91.90 Unspecified hearing loss, unspecified ear; Z94.1 Heart transplant status
CPT/HCPCS: 36415; 70450; 71045; 71250; 72125; 74176; 80053; 84484; 85025; 93005; 99285

== ENCOUNTER 2023-04-16 06:39 | Outpatient (REF) | payer MEDICARE, SELFPAY ==
--- OUTSIDE RECORDS SUMMARY | 2023-04-16 06:42 | XMS_ITS | CCD ---
Author Name Unknown Address [address] [place] [address] Organization [facility] Care Team Providers Care Subassemblies Wirer Name Role Phone Michael Carballo Unavailable Unavailable Unavailable Michael Carballo Primary Care Provider MD Michael Carballo Primary Care Provider JIL Davies Attending Provider DO Manfred Wilson Primary Care Provider Unavailprovidence health e DO Andrew Hernández Emergency Provider MD Omid Myrick Admit Provider MD Omid Myrick Attending Provider Al MD Yoshi Campoverde Attending Provider Michael Carballo Unavailable Dionjarret, Pascualaashish Unavailable Palliative Care Unavailable Unavailable Gene Shook Unavailable Felicia Astorga Unavailable Michael Carballo Primary Care Provider [phone] DONNA ARELLANO Referring Unavailable MICHAEL CARBALLO Primary [...] sources) Allopurinol; Translations: [allopurinol] Drug Allergy 10-16-2018 [facility] (8 sources) ceFAZolin; Translations: [Cefazolin] Drug Allergy 06-25-2021 Rash, Unknown [facility] Comment on above: extensive fiery red and warm flat rash (1 source) Allopurinol Drug Allergy [facility] (1 source) ceFAZolin Drug Allergy [facility] (1 source) Allopurinol Drug Allergy 06-25-2021 [facility] Medications Current Medications Medication [...] 11-03-2018 take 1 capsule by mo [facility] once daily in the evening dilTIAZem HCl ER Coated Beads 300 MG Oral Capsule Extended Release 24 Hour take 1 capsule every evening Quantity: 0 Refills: 0 Ordered: 04-Jul-2021 Felicia Astorga DO Start : 03-Nov-2018 Active Start: 11-03-2018 take 1 capsule by [facility] once daily dilTIAZem HCl ER Coated Beads 360 MG Oral Capsule Extended Release 24 Hour TAKE 1 CAPSULE Daily Quantity: 30 Refills: 11 Ordered: 03-Nov-2018 Felicia Astorga DO Start : 03-Nov-2018 Active Start: 11-03-2018 take 1 capsule by [facility] once daily dilTIAZem HCl ER Coated Beads 240 MG Oral Capsule Extended Release 24 Hour TAKE 1 CAPSULE Daily Quantity: 90 Refills: 3 Ordered: 24-Dec-2020 Felicia Astorga DO Start : 03-Nov-2018 Active Start: 10-31-2018 take 1 capsule by [facility] every twenty-four hours dilTIAZem [...] 10-31-2018 take 1 tablet by [facility] three times daily hydrALAZINE HCl - 100 [...] mg Start: 11-02-2018 take 1 capsule by [facility] every twelve hours Mycophenolate [...] Tamiko Dsouza Status: Discontinued Generic Substitution Allowed [place] 7-Ewe-Vho-Fish Oil (Fish Oil) 1,000 mg (120 mg-180 mg) Capsule (4 sources) Start: 08-05-2017 take 1 tablet by mouth twice daily [place] 8-Aqc-Fmw-Fish Oil (Fish Oil) 1,000 mg (120 mg-180 mg) Capsule Active 1 TAB PO Twice daily August 05, 2017 11:13am Start: 08-05-2017 take 1 tablet by anila th once daily [place] 2-Ayd-Yav-Fish Oil (Fish Oil) 1,000 mg (120 mg-180 mg) Capsule Active 1 TAB PO Daily August 05, 2017 11:13am Start: 08-05-2017 take 1 tablet by anila th twice daily [place] 1-Fwe-Mop-Fish Oil (Fish Oil) 1,000 mg (120 mg-180 [...] tube 2 times a day only on Hkovvw-Fnogxyoum-Qfmdii Quantity: 24 Refills: 0 Ordered: 21-Jan-2016 Warren [...] possible liver damage. take 2 tablets by [facility] every six hours as [...] Active Start: 10-15-2021 take 2 tablets by [facility] once daily busPIRone HCl - 10 MG Oral Tablet TAKE 2 TABLET Daily Quantity: 0 Refills: 0 Ordered: 15-Oct-2021 DO Start : 15-Oct-2021 Active take 1 tablet by [facility] twice daily busPIRone (BUSPAR) 15 MG tablet [...] DO Start : 19-Dec-2020 Active vitamin D (DENSIE CALCIFEROL) 25 MCG (1000 UT) TABS tablet [...] Allowed Start: 10-31-2018 take 1 capsule by [facility] every six hours as [...] 1 capsule by mouth twice da padmaja [place]-3 Fatty Acids (FISH OIL) 1000 MG CAPS [...] if Blood Glucose is between 251 - 99935 unit(s) if Blood Glucose is between 301 - 22349 unit(s) if Blood Glucose is between 351 [...] if Blood glucose is between 301 - 03265 unit(s) if Blood glucose is between 351 [...] 02-Jul-2021 Generic Substitution Allowed polyethylene glycol 3350 70884 mg powder for oral solution (7 sources) Osmotic Laxative Start: 10-15-2021 MiraLax Mix-I n [place] 17 GM Oral Packet MIX 1 PACKET [...] Allowed Start: 07-02-2021 take 1 capsule by [facility] every twelve hours Tacrolimus [...] Coma; stupor; and brain damage (1 source) [place] coma scale finding; Translations: [[place] coma scale score 13-15, at hospital admission] [...] Problem Lis t Migration; 2012-10-14; Moved to [facility] Feb 17 2013 9:03PM; Fever of [...] right upper extremity 06-30-2021 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 (1 source) residential current use of insulin 07-02-2021 Past or Other Problems Problem Classification Problem Date Documented Da te Episodic/Chronic Other gastrointestinal disorders (1 source) Dysphagia, unspecified; Translations: [DYSPHAGIA UNSPECIFIED] Onset: 08-08-2021 Episodic 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 (1 source) SWELLING UPPER/LOW EXTREMITIES 06-27-2021 Comment on above: SWELLING UPPER/LOW E XTREMITIES Results Test Name Value Interpretation Reference Range Facility Lab Report[facility] 09-14-2022 Lab Reports [id number]:127 Normal [facility] VIT D 25-[place] [facility] 2022 Vitamin D, 25-Hydroxy 29.5 ng/mL Critically low 30.0-100.0 [facility] Comment on above: Result Comment: Jennifer min D deficiency has been defined by the [place] of [employer] and an Endocrine Society practice guideline as a level of serum 25-OH vitamin D less than 20 ng/mL (1,2). The Endocrine Society went on to further define vitamin D insufficiency as a level between 21 and 29 ng/mL (2). 1. IOM ([place] [employer]). 2010. Dietary reference intakes for calcium and D. [place]: The National Academies Press. 2. Ely MF, Brad NC, Kristy ORTEGA, et al. Evaluation, treatment, and prevention of vitamin D deficiency: an Endocrine Society clinical practice guideline. JCEM. 2010; 96(7):1911-30. Performed By: #### V ITADLC #### [facility] [address] [place] [address] Dr. Ronnie Pennington CBC AUTO DIFFon 07-24-2022 BASO # 0.0 103/ul Normal 0.0-0.1 [facility] Comment on above: Performed By: #### C BC #### [facility] [address] [address] [address] Ronnie Pennington Basophils/100 WBC (Bld) 0.6 % Normal 0.2-2.0 [facility] Comment on above: Performed By: #### C BC #### [facility] [address] [address] [address] Ronnie Pennington EO # 0.1 103/ul Normal 0.0-0.7 [facility] Comment on above: Performed By: #### C BC #### [facility] [address] [address] [address] Ronnie Pennington Eosinophils/100 WBC (Bld) 2.0 % Normal 0.9-7.0 [facility] Comment on above: Performed By: #### C BC #### [facility] [address] [place] [address] Dr. Ronnie Pennington Erythrocyte distribution width (RBC) [Ratio] 13.2 % Normal 11.0-15.0 [facility] Comment on above: Performed By: #### C BC #### [facility] [address] [place] [address] Dr. Ronnie Pennington Hematocrit (Bld) [Volume fraction] 33.3 % Critically low 42.0-54.0 [facility] Comment on above: Performed By: #### C BC #### [facility] [address] [place] [address] Dr. Ronnie Pennington Hemoglobin (Bld) [Mass/Vol] 10.0 g/dL Critically low 14.0-18.0 [facility] Comment on above: Performed By: #### C BC #### [facility] [address] [place] [address] Dr. Ronnie Pennington IG # 0.04 10e3/ul Critically high 0.00-0.03 [facility] Comment on above: Performed By: #### C BC #### [facility] [address] [place] [address] Dr. Ronnie Pennington IG % 0.6 % Critically high 0.0-0.5 [facility] Comment on above: Performed By: #### C BC #### [facility] [address] [place] [address] Dr. Ronnie Pennington LYMPH # 1.2 103/ul Normal 1.2-3.8 [facility] Comment on above: Performed By: #### C BC #### [facility] [address] [place] [address] Dr. Ronnie Pennington Lymphocytes/100 WBC (Bld) 17.9 % Critically low 20.5-60.0 [facility] Comment on above: Performed By: #### C BC #### [facility] [address] [place] [address] Dr. Ronnie Pennington MANUAL DIFF REQ NO Normal [facility] Comment on above: Performed By: #### C BC #### [facility] [address] [place] [address] Dr. Ronnie Pennington MCH (RBC) [Entitic mass] 28.2 pg Normal 25.9-34.0 [facility] Comment on above: Performed By: #### C BC #### [facility] [address] [place] [address] Dr. Ronnie Pennington MCHC (RBC) [Mass/Vol] 30.0 g/dL Normal 29.9-35.2 [facility] Comment on above: Performed By: #### C BC #### [facility] [address] [place] [address] Dr. Ronnie Pennington MCV (RBC) [Entitic vol] 94.1 fL Critically high 80.0-94 .0 [facility] Comment on above: Performed By: #### C BC #### [facility] [address] [place] [address] Dr. Ronnie Pennington MONO # 0.4 103/ul Normal 0.3-0.8 [facility] Comment on above: Performed By: #### C BC #### [facility] [address] [place] [address] Dr. Ronnie Pennington Monocytes/100 WBC (Bld) 6.5 % Normal 1.7-12.0 [facility] Comment on above: Performed By: #### C BC #### [facility] [address] [address] [address] Ronnie Pennington NEUT # 4.8 103/ul Normal 1.4-6.5 [facility] Comment on above: Performed By: #### C BC #### [facility] [address] [place] [address] Dr. Ronnie Pennington Neutrophils/100 WBC (Bld) 72.4 % Normal 43.0-75.0 [facility] Comment on above: Performed By: #### C BC #### [facility] [address] [place] [address] Dr. Ronnie Pennington Platelet mean volume (Bld) [Entitic vol] 11.7 fL Normal 9.5-13.5 [facility] Comment on above: Performed By: #### C BC #### [facility] [address] [place] [address] Dr. Ronnie Pennington PLT 137 103/ul Critically low 150-450 [facility] Comment on above: Performed By: #### C BC #### [facility] [address] [place] [address] Dr. Ronnie Pennington RBC 3.54 106/ul Critically low 4.70-6.10 [facility] Comment on above: Performed By: #### C BC #### [facility] [address] [place] [address] Dr. Ronnie Pennington WBC 6.6 103/ul Normal 4.0-11.0 [facility] Comment on above: Performed By: #### C BC #### [facility] [address] [place] [address] Dr. Ronnie Pennington GLYCOHEMOGLOBIN A1Con 2022 ADA RECOMMENDATION SEE BELOW Normal [facility] Comment on above: Result Comment: ADA RECOMMENDED LIMIT 4.0 - 6.0 ADA THERAPEUTIC TARGET < 7.0 ACTION SUGGESTED > 7.0 Performed By: #### A 1C #### [facility] [address] [place] [address] Dr. Ronnie Pennington Glucose [Mass/Vol] 171 mg/dL Normal [facility] Comment on above: Performed By: #### A 1C #### [facility] [address] [address] [address] Ronnie Pennington HbA1c (Bld) [Mass fraction] 7.6 % Critically high 4.5-6.2 [facility] Comment on above: Performed By: #### A 1C #### [facility] [address] [address] [address] Ronnie Pennington MAGNESIUMon 07-24-2022 Magnesium [Mass/Vol] 2.3 mg/dL Normal 1.8-2.4 [facility] Comment on above: Performed By: #### M Mere, TSH, CMP ####[facility] [address] [address]Dr. Ronnie Pennington PROF 14(COMP METB)on 023 Albumin [Mass/Vol] 2.8 g/dL Critically low 3.4-5.0 [facility] Comment on above: Performed By: #### Joaquin Severino TSH, CMP ####[facility] [address] [address]DrFreddy Pennington Albumin/Globulin [Mass ratio] 0.7 {ratio} Normal [facility] Comment on above: Performed By: #### Joaquin Severino TSH, CMP ####[facility] [address] [address]DrFreddy Pennington ALP [Catalytic activity/Vol] 69 U/L Normal 46-116 [facility] Comment on above: Performed By: #### M Mere TSH, CMP ####[facility] [address] [address]DrFreddy Pennington ALT [Catalytic activity/Vol] 8 U/L Critically low 16-63 [facility] Comment on above: Performed By: #### Joaquin Severino TSH, CMP ####[facility] [address] [address]DrFreddy Pennington Anion gap [Moles/Vol] 9.9 mmol/L Normal [facility] Comment on above: Performed By: #### M G TSH, CMP ####[facility] [address] [address]DrFreddy Pennington AST [Catalytic activity/Vol] 9 U/L Critically low 15-37 [facility] Comment on above: Performed By: #### M Mere TSH, CMP ####[facility] [address] [place], [place] [address]Dr. Ronnie Pennington Bilirubin [Mass/Vol] 0.2 mg/dL Normal 0.2-1.0 [facility] Comment on above: Performed By: #### Joaquin Severino TSH, CMP ####[facility] [address] [place], [place] [address]Dr. Ronnie Pennington Calcium [Mass/Vol] 8.9 mg/dL Normal 8.5-10.1 [facility] Comment on above: Performed By: #### Joaquin Severino TSH, CMP ####[facility] [address] [place], [place] [address]Dr. Ronnie Pennington Chloride [Moles/Vol] 104 mmol/L Normal 98-107 [facility] Comment on above: Performed By: #### Joaquin Severino TSH, CMP ####[facility] [address] [place], [place] [address]Dr. Ronnie Pennington CO2 [Moles/Vol] 28.4 mmol/L Normal 21.0-32.0 [facility] Comment on above: Performed By: #### Joaquin Severino TSH, CMP ####[facility] [address] [place], [place] [address]Dr. Ronnie Pennington Creatinine [Mass/Vol] 2.09 mg/dL Critically high 0.70-1.30 [facility] Comment on above: Performed By: #### Joaquin Severino, TSH, CMP ####[facility] [address] [place], [place] [address]Dr. Salomelenny Pennington EGFR-AF ICELANDIC 37 mL/min/1.73m2 Critically low >=60 [facility] Comment on above: Performed By: #### Joaquin Severino, TSH, CMP ####[facility] [address] [place], [place] [address]Dr. Ronnie Pennington EGFR-NON AF ICELANDIC 31 mL/min/1.73m2 Critically low >=60 [facility] Comment on above: Performed By: #### M G, TSH, CMP ####[facility] [address] [address]Dr. Ronnie Pennington Globulin (S) [Mass/Vol] 3.9 g/dL Normal [facility] Comment on above: Performed By: #### M G, TSH, CMP ####[facility] [address] [address]Dr. Ronnie Pennington Glucose [Mass/Vol] 165 mg/dL Critically high 74-106 [facility] Comment on above: Performed By: #### M G, TSH, CMP ####[facility] [address] [place], [place] [address]Dr. Ronnie Pennington Potassium [Moles/Vol] 4.3 mmol/L Normal 3.5-5.1 [facility] Comment on above: Performed By: #### M G, TSH, CMP ####[facility] [address] [place], [place] [address]Dr. Ronnie Pennington Protein [Mass/Vol] 6.7 g/dL Normal 6.4-8.2 [facility] Comment on above: Performed By: #### M G, TSH, CMP ####[facility] [address] [place], [place] [address]Dr. Ronnie Pennington Sodium [Moles/Vol] 138 mmol/L Normal 136-145 [facility] Comment on above: Performed By: #### M G, TSH, CMP ####[facility] [address] [place], [place] [address]Dr. Ronnie Pennington Urea nitrogen [Mass/Vol] 33.0 mg/dL Critically high 7.0-18.0 [facility] Comment on above: Performed By: #### M G, TSH, CMP ####[facility] [address] [place], [place] [address]Dr. Ronnie Pennington Urea nitrogen/Creatinine [Mass ratio] 15.8 mg/mg Normal [facility] Comment on above: Performed By: #### M G, TSH, CMP ####[facility] [address] [place], [place] [address]Dr. Ronnie Pennington TSHon 07-24-2022 TSH 2.763 uIU/mL Normal 0.358-3.74 0 [facility] Comment on above: Performed By: #### M G, TSH, CMP ####[facility] [address] [address]Dr. Ronnie Pennington FK506 (TACROLIMUS) WHOLE BLO ODon 07-15-2022 Tacrolimus (FK506), Blood 9.4 ng/mL Normal 2.0-20.0 [facility] Comment on above: Result Comment: Trou gh (immediately following transplant) 15.0 . Trough (steady state, 2 weeks or more after transplant): 3.0 - 8.0 . Performed by LC-MS/MS technology. Performed By: #### F K506T #### [facility] [address] [place] [address] Dr. Ronnie Pennington CBC AUTO DIFFon 07-13-2022 BASO # 0.0 103/ul Normal 0.0-0.1 [facility] Comment on above: Performed By: #### C BC #### [facility] [address] [place] [address] Dr. Ronnie Pennington Basophils/100 WBC (Bld) 0.3 % Normal 0.2-2.0 [facility] Comment on above: Performed By: #### C BC #### [facility] [address] [place] [address] Dr. Ronnie Pennington EO # 0.2 103/ul Normal 0.0-0.7 [facility] Comment on above: Performed By: #### C BC #### [facility] [address] [place] [address] Dr. Ronnie Pennington Eosinophils/100 WBC (Bld) 2.5 % Normal 0.9-7.0 [facility] Comment on above: Performed By: #### C BC #### [facility] [address] [place] [address] Dr. Ronnie Pennington Erythrocyte distribution width (RBC) [Ratio] 13.1 % Normal 11.0-15.0 [facility] Comment on above: Performed By: #### C BC #### [facility] [address] [place] [address] Dr. Ronnie Pennington Hematocrit (Bld) [Volume fraction] 33.4 % Critically low 42.0-54.0 [facility] Comment on above: Performed By: #### C BC #### [facility] [address] [place] [address] Dr. Ronnie Pennington Hemoglobin (Bld) [Mass/Vol] 10.4 g/dL Critically low 14.0-18.0 [facility] Comment on above: Performed By: #### C BC #### [facility] [address] [place] [address] Dr. Ronnie Pennington IG # 0.04 10e3/ul Critically high 0.00-0.03 [facility] Comment on above: Performed By: #### C BC #### [facility] [address] [place] [address] Dr. Ronnie Pennington IG % 0.6 % Critically high 0.0-0.5 [facility] Comment on above: Performed By: #### C BC #### [facility] [address] [place] [address] Dr. Ronnie Pennington LYMPH # 1.2 103/ul Normal 1.2-3.8 [facility] Comment on above: Performed By: #### C BC #### [facility] [address] [place] [address] Dr. Ronnie Pennington Lymphocytes/100 WBC (Bld) 16.8 % Critically low 20.5-60.0 [facility] Comment on above: Performed By: #### C BC #### [facility] [address] [place] [address] Dr. Ronnie Pennington MANUAL DIFF REQ NO Normal [facility] Comment on above: Performed By: #### C BC #### [facility] [address] [place] [address] Dr. Ronnie Pennington MCH (RBC) [Entitic mass] 28.5 pg Normal 25.9-34.0 [facility] Comment on above: Performed By: #### C BC #### [facility] [address] [place] [address] Dr. Ronnie Pennington MCHC (RBC) [Mass/Vol] 31.1 g/dL Normal 29.9-35.2 [facility] Comment on above: Performed By: #### C BC #### [facility] [address] [place] [address] Dr. Ronnie Pennington MCV (RBC) [Entitic vol] 91.5 fL Normal 80.0-94.0 [facility] Comment on above: Performed By: #### C BC #### [facility] [address] [place] [address] Dr. Ronnie Pennington MONO # 0.5 103/ul Normal 0.3-0.8 [facility] Comment on above: Performed By: #### C BC #### [facility] [address] [place] [address] Dr. Ronnie Pennington Monocytes/100 WBC (Bld) 7.5 % Normal 1.7-12.0 [facility] Comment on above: Performed By: #### C BC #### [facility] [address] [place] [address] Dr. Ronnie Pennington NEUT # 5.0 103/ul Normal 1.4-6.5 [facility] Comment on above: Performed By: #### C BC #### [facility] [address] [place] [address] Dr. Ronnie Pennington Neutrophils/100 WBC (Bld) 72.3 % Normal 43.0-75.0 [facility] Comment on above: Performed By: #### C BC #### [facility] [address] [place] [address] Dr. Ronnie Pennington Platelet mean volume (Bld) [Entitic vol] 11.8 fL Normal 9.5-13.5 [facility] Comment on above: Performed By: #### C BC #### [facility] [address] [place] [address] Dr. Ronnie Pennington PLT 126 103/ul Critically low 150-450 [facility] Comment on above: Performed By: #### C BC #### [facility] [address] [place] [address] Dr. Ronnie Pennington RBC 3.65 106/ul Critically low 4.70-6.10 [facility] Comment on above: Performed By: #### C BC #### [facility] [address] [address] [address] Ronnie Pennington WBC 6.9 103/ul Normal 4.0-11.0 [facility] Comment on above: Performed By: #### C BC #### [facility] [address] [address] [address] Ronnie Pennington MAGNESIUMon 07-13-2022 Magnesium [Mass/Vol] 2.1 mg/dL Normal 1.8-2.4 [facility] Comment on above: Performed By: #### C MP, MG #### [facility] [address] [place] [address] Dr. Ronnie Pennington Office Visit (Cardiology)on 07-13-2022 Follow-up visit Patient Instructions -Please bring a list of your medications to every appointment. -We will schedule you a follow up appointment in # months. We will call you with this date. -If you have any questions, please do not hesitate to contact our office at [phone]. For after hours issues, please call [phone]. Chief Complaint OLIVERIO ESCOBEDO is being seen [...] September 2021. He continues to live in longterm. He has started Zoloft for depression. He [...] TabletTake 1 tablet twice daily MiraLax Mix-In [place] 17 GM Oral PacketMIX 1 PACKET in [...] TABLET Bedtime (more content not included)... Normal [facility] PROF 14(COMP METB)on 023 Albumin [Mass/Vol] 2.9 g/dL Critically low 3.4-5.0 [facility] Comment on above: Performed By: #### C MP, MG #### [facility] [address] [place] [address] Dr. Ronnie Pennington Albumin/Globulin [Mass ratio] 0.7 {ratio} Normal [facility] Comment on above: Performed By: #### C MP, MG #### [facility] [address] [address] [address] Ronnie Pennington ALP [Catalytic activity/Vol] 71 U/L Normal 46-116 [facility] Comment on above: Performed By: #### C MP, MG #### [facility] [address] [place] [address] Dr. Ronnie Pennington ALT [Catalytic activity/Vol] 12 U/L Critically low 16-63 [facility] Comment on above: Performed By: #### C MP, MG #### [facility] [address] [address] [address] Ronnie Pennington Anion gap [Moles/Vol] 15.1 mmol/L Normal [facility] Comment on above: Performed By: #### C MP, MG #### [facility] [address] [place] [address] Dr. Ronnie Pennington AST [Catalytic activity/Vol] 11 U/L Critically low 15-37 [facility] Comment on above: Performed By: #### C MP, MG #### [facility] [address] [place] [address] Dr. Ronnie Pennington Bilirubin [Mass/Vol] 0.2 mg/dL Normal 0.2-1.0 [facility] Comment on above: Performed By: #### C MP, MG #### [facility] [address] [place] [address] Dr. Ronnie Pennington Calcium [Mass/Vol] 9.2 mg/dL Normal 8.5-10.1 [facility] Comment on above: Performed By: #### C MP, MG #### [facility] [address] [place] [address] Dr. Ronnie Pennington Chloride [Moles/Vol] 105 mmol/L Normal 98-107 [facility] Comment on above: Performed By: #### C MP, MG #### [facility] [address] [place] [address] Dr. Ronnie Pennington CO2 [Moles/Vol] 28.1 mmol/L Normal 21.0-32.0 [facility] Comment on above: Performed By: #### C MP, MG #### [facility] [address] [place] [address] Dr. Ronnie Pennington Creatinine [Mass/Vol] 2.14 mg/dL Critically high 0.70-1.30 [facility] Comment on above: Performed By: #### C MP, MG #### [facility] [address] [place] [address] Dr. Ronnie Pennington EGFR-AF ICELANDIC 36 mL/min/1.73m2 Critically low >=60 [facility] Comment on above: Performed By: #### C MP, MG #### [facility] [address] [place] [address] Dr. Ronnie Pennington EGFR-NON AF ICELANDIC 30 mL/min/1.73m2 Critically low >=60 [facility] Comment on above: Performed By: #### C MP, MG #### [facility] [address] [place] [address] Dr. Ronnie Pennington Globulin (S) [Mass/Vol] 4.0 g/dL Normal [facility] Comment on above: Performed By: #### C MP, MG #### [facility] [address] [place] [address] Dr. Ronnie Pennington Glucose [Mass/Vol] 150 mg/dL Critically high 74-106 [facility] Comment on above: Performed By: #### C MP, MG #### [facility] [address] [place] [address] Dr. Ronnie Pennington Potassium [Moles/Vol] 4.2 mmol/L Normal 3.5-5.1 [facility] Comment on above: Performed By: #### C MP, MG #### [facility] [address] [address] [address] Ronnie Pennington Protein [Mass/Vol] 6.9 g/dL Normal 6.4-8.2 [facility] Comment on above: Performed By: #### C MP, MG #### [facility] [address] [address] [address] Ronnie Pennington Sodium [Moles/Vol] 144 mmol/L Normal 136-145 [facility] Comment on above: Performed By: #### C MP, MG #### [facility] [address] [address] [address] Ronnie Pennington Urea nitrogen [Mass/Vol] 32.0 mg/dL Critically high 7.0-18.0 [facility] Comment on above: Performed By: #### C MP, MG #### [facility] [address] [address] [address] Ronnie Pennington Urea nitrogen/Creatinine [Mass ratio] 15.0 mg/mg Normal [facility] Comment on above: Performed By: #### C MP, MG #### [facility] [address] [address] [address] Ronnie Pennington Transplant SW Assessment Upd [...] Jul 15 2022 12:57PM EST (Author) Normal [facility] [employer] Consultation Noteon 06-10-19 Consultation Note [id number] Normal [facility] TSHon 06-05-2022 TSH 3.293 uIU/mL Normal 0.358-3.74 0 [facility] Comment on above: Performed By: #### T SH #### [facility] [address] [address] [address] Ronnie Pennington Cult,Woundon 04-19-2022 Cult,Wound Specimen [...] Tetracycline <=1 SUSCEPTIBLE Trimethoprim/Sulfa <=10 SUSCEPTIBLE Susceptible [facility] Comment on above: Performed By: #### W DC #### [id number] [place] [address] Bone Char Kiln Tender: David Gonzalez MD PROF CHEM 8 ([facility])on Anion gap [Moles/Vol] 14.9 mmol/L Normal [facility] Comment on above: Performed By: #### B MP #### [facility] [address] [place] [address] Dr. Ronnie Pennington Calcium [Mass/Vol] 8.8 mg/dL Normal 8.5-10.1 [facility] Comment on above: Performed By: #### B MP #### [facility] [address] [place] [address] Dr. Ronnie Pennington Chloride [Moles/Vol] 104 mmol/L Normal 98-107 [facility] Comment on above: Performed By: #### B MP #### [facility] [address] [place] [address] Dr. Ronnie Pennington CO2 [Moles/Vol] 26.6 mmol/L Normal 21.0-32.0 [facility] Comment on above: Performed By: #### B MP #### [facility] [address] [address] [address] Ronnie Pennington Creatinine [Mass/Vol] 2.03 mg/dL Critically high 0.70-1.30 [facility] Comment on above: Performed By: #### B MP #### [facility] [address] [address] [address] Ronnie Pennington EGFR-AF ICELANDIC 39 mL/min/1.73m2 Critically low >=60 [facility] Comment on above: Performed By: #### B MP #### [facility] [address] [address] [address] Ronnie Pennington EGFR-NON AF ICELANDIC 32 mL/min/1.73m2 Critically low >=60 [facility] Comment on above: Performed By: #### B MP #### [facility] [address] [address] [address] Ronnie Pennington Glucose [Mass/Vol] 209 mg/dL Critically high 74-106 [facility] Comment on above: Performed By: #### B MP #### [facility] [address] [address] [address] Ronnie Pennington Potassium [Moles/Vol] 4.5 mmol/L Normal 3.5-5.1 [facility] Comment on above: Performed By: #### B MP #### [facility] [address] [address] [address] Ronnie Pennington Sodium [Moles/Vol] 141 mmol/L Normal 136-145 [facility] Comment on above: Performed By: #### B MP #### [facility] [address] [address] [address] Ronnie Pennington Urea nitrogen [Mass/Vol] 26.0 mg/dL Critically high 7.0-18.0 [facility] Comment on above: Performed By: #### B MP #### [facility] [address] [address] [address] Ronnie Pennington Urea nitrogen/Creatinine [Mass ratio] 12.8 mg/mg Normal [facility] Comment on above: Performed By: #### B #### [facility] [address] [place], [place] [address] Dr. Ronnie Pennington Office Visit (Cardiology)on 10-15-2021 [...] last office visit; documented BPs at the [facility] 120-130s/70-80s. Benadryl 25 mg q6h [...] Oral TabletTak (more content not included)... Normal [facility] XR MODIFIED BARIUM SWALLOWon 08-05-2021 XR MODIFIED [...] JARON NESS Date: 2021-08-05 15:10 Normal [facility] CBC AND DIFFERENTIALon 07-13 % AUTOMATED IMMATURE GRAN 0.5 % Normal 0.0 - 0.9 [facility] [place] on above: Result Comment: Christal ture Granulocyte Count (IG) includes promyelocytes, myelocytes and metamyelocytes but does not include bands. Percent differential counts (%) should be interpreted in the context of the absolute cell counts (cells/L). Performed By: #### C BCDF #### [address] [address] Basophils (Bld) [#/Vol] 0.02 10*3/uL Normal 0.00 - 0.10 [facility] Comment on above: Performed By: #### C BCDF #### [address] [address] Basophils/100 WBC (Bld) 0.3 % Normal 0.0 - 2.0 [facility] Comment on above: Performed By: #### C BCDF #### [address] [address] Eosinophils (Bld) [#/Vol] 0.07 10*3/uL Normal 0.00 - 0.40 [facility] Comment on above: Performed By: #### C BCDF #### [address] [address] Eosinophils/100 WBC (Bld) 0.9 % Normal 0.0 - 6.0 [facility] Comment on above: Performed By: #### C BCDF #### [address] [address] Erythrocyte distribution width (RBC) [Ratio] 14.4 % Normal 11.5 - 14.5 [facility] Comment on above: Performed By: #### C BCDF #### [address] [place] [address] Hematocrit (Bld) [Volume fraction] 35.5 % Low 41.0 - 52.0 [facility] Comment on above: Performed By: #### C BCDF #### [address] [place] [address] Hemoglobin (Bld) [Mass/Vol] 10.8 g/dL Low 13.5 - 17.5 [facility] Comment on above: Performed By: #### C BCDF #### [address] [place] [address] Lymphocytes (Bld) [#/Vol] 0.42 10*3/uL Low 0.80 - 3.00 [facility] Comment on above: Performed By: #### C BCDF #### [address] [place] [address] Lymphocytes/100 WBC (Bld) 5.6 % Normal 13.0 - 44.0 [facility] Comment on above: Performed By: #### C BCDF #### [address] [place] [address] MCHC (RBC) [Mass/Vol] 30.4 g/dL Low 32.0 - 36.0 [facility] Comment on above: Performed By: #### C BCDF #### [address] [address] MCV (RBC) [Entitic vol] 89 fL Normal 80 - 100 [facility] Comment on above: Performed By: #### C BCDF #### [address] [address] Monocytes (Bld) [#/Vol] 0.07 10*3/uL Normal 0.05 - 0.80 [facility] Comment on above: Performed By: #### C BCDF #### [address] [address] Monocytes/100 WBC (Bld) 0.9 % Normal 2.0 - 10.0 [facility] Comment on above: Performed By: #### C BCDF #### [address] [address] Neutrophils (Bld) [#/Vol] 6.82 10*3/uL High 1.60 - 5.50 [facility] Comment on above: Performed By: #### C BCDF #### [address] [address] Neutrophils/100 WBC (Bld) 91.8 % Normal 40.0 - 80.0 [facility] Comment on above: Performed By: #### C BCDF #### [address] [address] NUCLEATED RBC 0.0 /100 WBC Normal 0.0 - 0.0 [facility] Comment on above: Performed By: #### C BCDF #### [address] [address] Platelets (Bld) [#/Vol] 161 10*3/uL Normal 150 - 450 [facility] Comment on above: Performed By: #### C BCDF #### [address] [address] RBC 3.98 x10E12/L Low 4.50 - 5.90 [facility] Comment on above: Performed By: #### C BCDF #### [address] [address] WBC (Bld) [#/Vol] 7.4 10*3/uL Normal 4.4 - 11.3 [facility] Comment on above: Performed By: #### C BCDF #### [address] [address] Complete Blood Count + Diffe rentialon 07-13-2021 Basophils/100 WBC (Bld) 0.3 % 0.0 - 2.0 [facility] [place] [address] [place] Work Phone: Erythrocyte distribution width (RBC) [Ratio] 14.4 % See Below [facility] [place] [address] [place] Work Phone: Comment on above: Reference Range: 11. 5 - 14.5 Hematocrit (Bld) [Volume fraction] 35.5 % below low threshold See Below [facility] [address] [place] Work Phone: Comment on [...] 161 10*3/uL 150 - 450 [facility] [address] [place] Work Phone: RBC (Bld) [#/Vol] 3.98 {x10E12/L} below low threshold See Below [facility] [address] [place] Work Phone: Comment on above: Reference Range: 4.5 0 - 5.90 WBC (Bld) [#/Vol] 7.4 10*3/uL 4.4 - 11.3 [facility] [place] [address] [place] Work Phone: Complete Blood Count + Differential 0.02 {x10E9/L} See Below [facility] [address] [place] Work Phone: Comment on above: Reference Range: 0.0 0 - 0.10 Complete Blood Count + Differential 0.07 {x10E9/L} See Below [facility] [address] [place] Work Phone: Comment on above: Reference Range: 0.0 0 - 0.40 Reference Range: 0.0 5 - 0.80 Complete Blood Count + Differential 0.42 {x10E9/L} below low threshold See Below [facility] [address] [place] Work Phone: Comment on above: Reference Range: 0.8 0 - 3.00 Complete Blood Count + Differential 6.82 {x10E9/L} above high threshold See Below [facility] [address] [place] Work Phone: Comment on above: Reference Range: 1.6 0 - 5.50 Complete Blood Count + Differential 0.9 % 0.0 - 6.0 [facility] [place] [address] [place] Work Phone: Complete Blood Count + Differential 0.5 % 0.0 - 0.9 [facility] [address] [place] Work Phone: Comment on above: Immature Granulocyte Count (IG) includes promyelocytes, myelocytes and metamyelocytes but does not include bands. Percent differential counts (%) should be interpreted in the context of the absolute cell counts (cells/L). Complete Blood Count + Differential 0.0 {/100_WBC} 0.0 - 0.0 [facility] [address] [place] Work Phone: Coronavirus 2019 RNA by PCR, Symptomaticon 07-03-2021 Date and time of symptom onset [id number] [facility] [address] [place] Work Phone: Coronavirus 2019 RNA by PCR, Symptomatic Not detected Normal See Below [facility] [address] [place] Work Phone: Comment on above: SOURCE: Nasal, Nasop haryngealReference Range: Not Detected.This test has received FDA Emergency Use Authorization (EUA) and has been verified by [facility] ([facility]). This test is only authorized for the duration of time that circumstances exist to justify the authorization of the emergency use of in vitro diagnostic tests for the detection of SARS-CoV-2 virus and/or diagnosis of COVID-19 infection under section 564(b)(1) of the Act, 21 U.S.C. 360bbb-3(b)(1), unless the authorization is terminated or revoked sooner. [facility] is certified under CLIA-88 as qualified to perform high complexity testing. Testing is performed in the [facility] located at [address] [place] [address].SARS-CoV-2/Flu/RSV Multiplex Test: Fact sheet for providers: https://www.fda.gov/media/186180/downloadFact sheet for patients: https://www.fda.gov/media/671035/download Laboratory - Chemistry and C hemistry - challengeon 07-03-2021 Glucose [Mass/Vol] 330 mg/dL above high threshold 74 - 99 [facility] [address] [place] Work Phone: Glucose [Mass/Vol] [...] mmol/L 21 - 32 [facility] [address] [place] Work Phone: Creatinine [Mass/Vol] 1.80 mg/dL above high threshold See Below [facility] [address] [place] Work Phone: Comment on above: Reference Range: 0.5 0 - 1.30 Glucose [Mass/Vol] 246 mg/dL above high threshold 74 - 99 [facility] [address] [place] Work Phone: Potassium [Moles/Vol] 3.9 mmol/L 3.5 - 5.3 [facility] [address] [place] Work Phone: [phone] Sodium [Moles/Vol] 138 mmol/L 136 - 145 [facility] [address] [place] Work Phone: Urea nitrogen [...] below low threshold See Below [facility] [address] [place] Work Phone: Comment on above: Reference Range: 41. 0 - 52.0 Hemoglobin (Bld) [Mass/Vol] 10.8 g/dL below low threshold See Below [facility] [address] [place] Work Phone: Comment on above: Reference Range: 13. 5 - 17.5 MCHC (RBC) [Mass/Vol] 30.8 g/dL below low threshold See Below [facility] [address] [place] Work Phone: Comment on above: Reference Range: 32. 0 - 36.0 MCV (RBC) [Entitic vol] 89 fL 80 - 100 [facility] [address] [place] Work Phone: Platelets (Bld) [#/Vol] 171 10*3/uL 150 - 450 [facility] [address] [place] Work Phone: RBC (Bld) [#/Vol] 3.94 {x10E12/L} below low threshold See Below [facility] [address] [place] Work Phone: Comment on above: Reference Range: 4.5 0 - 5.90 WBC (Bld) [#/Vol] 6.0 10*3/uL 4.4 - 11.3 [facility] [address] [place] Work Phone: No Panel Informationon 07-03 38 {mL/min/1.73m2} Abnormal >90 [facility] [address] [place] Work Phone: Comment on above: CALCULATIONS OF ERNST MATED GFR ARE PERFORMED USING THE 2020 CKD-EPI STUDY REFIT EQUATION WITHOUT THE RACE VARIABLE FOR THE IDMS-TRACEABLE CREATININE METHODS.https://jasn.asnjournals.org/content/early// ASN.3513193727 0.0 {/100_WBC} 0.0-0.0 [facility] [address] [place] Work Phone: Tacrolimuson 07-03-2021 Tacrolimus (Bld) [Mass/Vol] 5.5 ng/mL 2.0 - 15.0 [facility] [address] [place] Work Phone: Comment on above: NOTE: Result was obt ained using a chemiluminescent microparticle immunoassay (CMIA) on the [employer] i system.Optimal therapeutic ranges for immuno-suppressant drugs [...] high threshold 74 - 99 [facility] [address] [place] Work Phone: [phone] Glucose [Mass/Vol] 286 mg/dL above high threshold 74 - 99 [facility] [address] [place] Work Phone: [phone] Glucose [Mass/Vol] 269 mg/dL above high threshold 74 - 99 [facility] [address] [place] Work Phone: [phone] Anion gap [Moles/Vol] 15 mmol/L 10 - 20 [facility] [address] [place] Work Phone: [phone] Calcium [Mass/Vol] 9.1 mg/dL 8.6 - 10.6 [facility] [address] [place] Work Phone: [phone] Chloride [Moles/Vol] 102 mmol/L 98 - 107 [facility] [address] [place] Work Phone: [phone] CO2 [Moles/Vol] 27 mmol/L 21 - 32 [facility] [address] [place] Work Phone: [phone] Creatinine [Mass/Vol] 1.97 mg/dL above high threshold See Below [facility] [address] [place] Work Phone: [phone] Comment on above: Reference Range: 0.5 0 - 1.30 Glucose [Mass/Vol] 197 mg/dL above high threshold 74 - 99 [facility] [address] [place] Work Phone: Potassium [Moles/Vol] 4.1 mmol/L 3.5 - 5.3 [facility] [address] [place] Work Phone: Sodium [Moles/Vol] 140 mmol/L 136 - 145 [facility] [address] [place] Work Phone: Urea nitrogen [Mass/Vol] 41 mg/dL above high threshold 6 - 23 [facility] [address] [place] Work Phone: Glucose [Mass/Vol] 201 mg/dL above high threshold 74 - 99 [facility] [address] [place] Work Phone: Laboratory - Hematology and Cell countson 07-02-2021 Erythrocyte distribution width (RBC) [Ratio] 14.1 % See Below [facility] [address] [place] Work Phone: Comment on above: Reference Range: 11. 5 - 14.5 Hematocrit (Bld) [Volume fraction] 33.6 % below low threshold See Below [facility] [address] [place] Work Phone: Comment on [...] 160 10*3/uL 150 - 450 [facility] [address] [place] Work Phone: RBC (Bld) [...] RACE VARIABLE FOR THE IDMS-TRACEABLE CREATININE METHODS.https://jasn.asnjournals.org/content/// ASN.3220859977 0.0 {/100_WBC} 0.0-0.0 [facility] [address] [place] Work Phone: Tacrolimuson 07-02-2021 Tacrolimus (Bld) [Mass/Vol] 7.6 ng/mL 2.0 - 15.0 [facility] [address] [place] Work Phone: Comment on above: NOTE: Result was obt ained using a chemiluminescent microparticle immunoassay (CMIA) on the [employer] i system.Optimal therapeutic ranges for immuno-suppressant drugs depend upon an individualpatient's current clinical state, type oforgan transplant, time post-transplant,co-administration of other immunosuppressants,and other clinical factors. The results ofthis test should be correlated with additionalclinical and laboratory data before changesin treatment regimens are made. Hemoglobin A1Con 07-01-2021 Glucose [Mass/Vol] 194 mg/dL [facility] [address] [place] Work Phone: HbA1c (Bld) [...] 13-18 <7.5 7-12 <8.0 0- 6 7.5-8.5 [place] Diabetes Association. Diabetes Care 33(S1), Mar 2009. Laboratory - Chemistry and C hemistry - challengeon 07-01-2021 Glucose [Mass/Vol] 188 mg/dL above high threshold 74 - 99 [facility] [address] [place] Work Phone: Glucose [Mass/Vol] [...] mmol/L 21 - 32 [facility] [address] [place] Work Phone: Creatinine [Mass/Vol] 1.99 mg/dL above high threshold See Below [facility] [address] [place] Work Phone: Comment on above: Reference Range: 0.5 0 - 1.30 Glucose [Mass/Vol] 227 mg/dL above high threshold 74 - 99 [facility] [address] [place] Work Phone: Glucose [Mass/Vol] 243 mg/dL above high threshold 74 - 99 [facility] [address] [place] Work Phone: Potassium [Moles/Vol] 4.0 mmol/L 3.5 - 5.3 [facility] [address] [place] Work Phone: Sodium [Moles/Vol] 141 mmol/L 136 - 145 [facility] [address] [place] Work Phone: Urea nitrogen [Mass/Vol] 38 mg/dL above high threshold 6 - 23 [facility] [address] [place] Work Phone: Laboratory - [...] below low threshold See Below [facility] [address] [place] Work Phone: Comment on above: Reference Range: 32. 0 - 36.0 MCV (RBC) [Entitic vol] 90 fL 80 - 100 [facility] [address] [place] Work Phone: Platelets (Bld) [#/Vol] 157 10*3/uL 150 - 450 [facility] [address] [place] Work Phone: RBC (Bld) [#/Vol] 3.83 {x10E12/L} below low threshold See Below [facility] [address] [place] Work Phone: Comment on above: Reference Range: 4.5 0 - 5.90 WBC (Bld) [#/Vol] 6.8 10*3/uL 4.4 - 11.3 [facility] [address] [place] Work Phone: No Panel Informationon 07-01 34 {mL/min/1.73m2} Abnormal >90 [facility] [address] [place] Work Phone: Comment on above: CALCULATIONS OF ERNST MATED GFR ARE PERFORMED USING THE 2020 CKD-EPI STUDY REFIT EQUATION WITHOUT THE RACE VARIABLE FOR THE IDMS-TRACEABLE CREATININE METHODS.https://jasn.asnjournals.org/content// ASN.4321454439 0.0 {/100_WBC} 0.0-0.0 [facility] [address] [place] Work Phone: Tacrolimuson 07-01-2021 Tacrolimus (Bld) [Mass/Vol] 9.3 ng/mL 2.0 - 15.0 [facility] [address] [place] Work Phone: Comment on above: NOTE: Result was obt ained using a chemiluminescent microparticle immunoassay (CMIA) on the [employer] i system.Optimal therapeutic ranges for immuno-suppressant drugs [...] high threshold 74 - 99 [facility] [address] [place] Work Phone: [phone] Glucose [Mass/Vol] 236 mg/dL above high threshold 74 - 99 [facility] [address] [place] Work Phone: [phone] Anion gap [Moles/Vol] 17 mmol/L 10 - 20 [facility] [address] [place] Work Phone: [phone] Calcium [Mass/Vol] 8.6 mg/dL 8.6 - 10.6 [facility] [address] [place] Work Phone: [phone] Chloride [Moles/Vol] 100 mmol/L 98 - 107 [facility] [address] [place] Work Phone: [phone] CO2 [Moles/Vol] 28 mmol/L 21 - 32 [facility] [address] [place] Work Phone: [phone] Creatinine [Mass/Vol] 2.26 mg/dL above high threshold See Below [facility] [address] [place] Work Phone: [phone] Comment on above: Reference Range: 0.5 0 - 1.30 Glucose [Mass/Vol] 205 mg/dL above high threshold 74 - 99 [facility] [address] [place] Work Phone: [phone] Potassium [Moles/Vol] 3.8 mmol/L 3.5 - 5.3 [facility] [address] [place] Work Phone: Sodium [Moles/Vol] 141 mmol/L 136 - 145 [facility] [address] [place] Work Phone: Urea nitrogen [Mass/Vol] 39 mg/dL above high threshold 6 - 23 [facility] [address] [place] Work Phone: Laboratory - Hematology and Cell countson 06-30-2021 Erythrocyte distribution width (RBC) [Ratio] 14.3 % See Below [facility] [address] [place] Work Phone: Comment on above: Reference Range: 11. 5 - 14.5 Hematocrit (Bld) [Volume fraction] 33.5 % below low threshold See Below [facility] [address] [place] Work Phone: Comment on above: Reference Range: 41. 0 - 52.0 Hemoglobin (Bld) [Mass/Vol] 10.5 g/dL below low threshold See Below [facility] [address] [place] Work Phone: Comment on above: Reference Range: 13. 5 - 17.5 MCHC (RBC) [Mass/Vol] 31.3 g/dL below low threshold See Below [facility] [address] [place] Work Phone: Comment on above: Reference Range: 32. 0 - 36.0 MCV (RBC) [Entitic vol] 91 fL 80 - 100 [facility] [address] [place] Work Phone: Platelets (Bld) [#/Vol] 141 10*3/uL below lo w threshold 150 - 450 [facility] [address] [place] Work Phone: RBC (Bld) [#/Vol] 3.70 {x10E12/L} below low threshold See Below [facility] [address] [place] Work Phone: Comment on above: Reference Range: 4.5 0 - 5.90 WBC (Bld) [#/Vol] 8.2 10*3/uL 4.4 - 11.3 [facility] [address] [place] Work Phone: No Panel Informationon 06-30 29 {mL/min/1.73m2} Abnormal >90 [facility] [address] [place] Work Phone: Comment on above: CALCULATIONS OF ERNST MATED GFR ARE PERFORMED USING THE 2020 CKD-EPI STUDY REFIT EQUATION WITHOUT THE RACE VARIABLE FOR THE IDMS-TRACEABLE CREATININE METHODS.https://jasn.asnjournals.org/content/early/ ASN.5552480829 0.0 {/100_WBC} 0.0-0.0 [facility] [address] [place] Work Phone: Tacrolimuson 06-30-2021 Tacrolimus (Bld) [Mass/Vol] 7.7 ng/mL 2.0 - 15.0 [facility] [address] [place] Work Phone: Comment on above: NOTE: Result was obt ained using a chemiluminescent microparticle immunoassay (CMIA) on the [employer] i system.Optimal therapeutic ranges for immuno-suppressant drugs [...] high threshold 74 - 99 [facility] [address] [place] Work Phone: Glucose [Mass/Vol] 225 mg/dL above high threshold 74 - 99 [facility] [address] [place] Work Phone: [phone] Glucose [Mass/Vol] 283 mg/dL above high threshold 74 - 99 [facility] [address] [place] Work Phone: [phone] Anion gap [Moles/Vol] 16 mmol/L 10 - 20 [facility] [address] [place] Work Phone: [phone] Calcium [Mass/Vol] 8.7 mg/dL 8.6 - 10.6 [facility] [address] [place] Work Phone: [phone] Chloride [Moles/Vol] 104 mmol/L 98 - 107 [facility] [address] [place] Work Phone: [phone] CO2 [Moles/Vol] 28 mmol/L 21 - 32 [facility] [address] [place] Work Phone: [phone] Creatinine [Mass/Vol] 1.97 mg/dL above high threshold See Below [facility] [address] [place] Work Phone: [phone] Comment on above: Reference Range: 0.5 0 - 1.30 Glucose [Mass/Vol] 185 mg/dL above high threshold 74 - 99 [facility] [address] [place] Work Phone: [phone] Potassium [Moles/Vol] 3.9 mmol/L 3.5 - 5.3 [facility] [address] [place] Work Phone: [phone] Sodium [Moles/Vol] 144 mmol/L 136 - 145 [facility] [address] [place] Work Phone: [phone] Urea nitrogen [Mass/Vol] 35 mg/dL above high threshold 6 - 23 [facility] [address] [place] Work Phone: [phone] Glucose [Mass/Vol] 186 mg/dL above high threshold 74 - 99 [facility] [address] [place] Work Phone: Laboratory - Hematology and Cell countson 06-29-2021 Erythrocyte distribution width (RBC) [Ratio] 14.3 % See Below [facility] [employer] [address] [place] Work Phone: Comment on above: Reference Range: 11. 5 - 14.5 Hematocrit (Bld) [Volume fraction] 35.8 % below low threshold See Below [facility] [employer] [address] [place] Work Phone: Comment on above: Reference Range: 41. 0 - 52.0 Hemoglobin (Bld) [Mass/Vol] 11.0 g/dL below low threshold See Below [facility] [employer] [address] [place] Work Phone: Comment on above: Reference Range: 13. 5 - 17.5 MCHC (RBC) [Mass/Vol] 30.7 g/dL below low threshold See Below [facility] [place] [address] [place] Work Phone: Comment on above: Reference Range: 32. 0 - 36.0 MCV (RBC) [Entitic vol] 90 fL 80 - 100 [facility] [employer] [address] [place] Work Phone: Platelets (Bld) [#/Vol] 142 10*3/uL below lo w threshold 150 - 450 [facility] [employer] [address] [place] Work Phone: RBC (Bld) [#/Vol] 3.96 {x10E12/L} below low threshold See Below [facility] [employer] [address] [place] Work Phone: Comment on above: Reference Range: 4.5 0 - 5.90 WBC (Bld) [#/Vol] 7.0 10*3/uL 4.4 - 11.3 [facility] [place] [address] [place] Work Phone: Magnesium, Serumon Magnesium [Mass/Vol] 1.80 mg/dL See Below [facility] [address] [place] Work Phone: Comment on above: Reference Range: 1.6 0 - 2.40 No Panel Informationon 06-29 34 {mL/min/1.73m2} Abnormal >90 [facility] [address] [place] Work Phone: Comment on above: CALCULATIONS OF ERNST MATED GFR ARE PERFORMED USING THE 2020 CKD-EPI STUDY REFIT EQUATION WITHOUT THE RACE VARIABLE FOR THE IDMS-TRACEABLE CREATININE METHODS.https://jasn.asnjournals.org/content/early// ASN.1676014311 0.0 {/100_WBC} 0.0-0.0 [facility] [address] [place] Work Phone: Tacrolimuson 06-29-2021 Tacrolimus (Bld) [Mass/Vol] 8.4 ng/mL 2.0 - 15.0 [facility] [address] [place] Work Phone: Comment on above: NOTE: Result was obt ained using a chemiluminescent microparticle immunoassay (CMIA) on the [employer] i system.Optimal therapeutic ranges for immuno-suppressant drugs [...] high threshold 74 - 99 [facility] [address] [place] Work Phone: Glucose [Mass/Vol] 215 mg/dL above high threshold 74 - 99 [facility] [address] [place] Work Phone: Anion gap [Moles/Vol] 14 mmol/L 10 - 20 [facility] [address] [place] Work Phone: [phone] Calcium [Mass/Vol] 8.5 mg/dL below low threshold 8.6 - 10.6 [facility] [address] [place] Work Phone: [phone] Chloride [Moles/Vol] 105 mmol/L 98 - 107 [facility] [address] [place] Work Phone: [phone] CO2 [Moles/Vol] 29 mmol/L 21 - 32 [facility] [address] [place] Work Phone: [phone] Creatinine [Mass/Vol] 1.96 mg/dL above high threshold See Below [facility] [address] [place] Work Phone: [phone] Comment on above: Reference Range: 0.5 0 - 1.30 Glucose [Mass/Vol] 159 mg/dL above high threshold 74 - 99 [facility] [address] [place] Work Phone: [phone] Potassium [Moles/Vol] 3.8 mmol/L 3.5 - 5.3 [facility] [address] [place] Work Phone: [phone] Sodium [Moles/Vol] 144 mmol/L 136 - 145 [facility] [employer] [address] [place] Work Phone: [phone] Urea [...] [Ratio] 14.3 % See Below [facility] [address] [place] Work Phone: [phone] Comment on above: Reference Range: 11. 5 - 14.5 Hematocrit (Bld) [Volume fraction] 33.8 % below low threshold See Below [facility] [employer] [address] [place] Work Phone: Comment on above: Reference Range: 41. 0 - 52.0 Hemoglobin (Bld) [Mass/Vol] 10.4 g/dL below low threshold See Below [facility] [employer] [address] [place] Work Phone: Comment on above: Reference Range: 13. 5 - 17.5 MCHC (RBC) [Mass/Vol] 30.8 g/dL below low threshold See Below [facility] [employer] [address] [place] Work Phone: Comment on above: Reference Range: 32. 0 - 36.0 MCV (RBC) [Entitic vol] 90 fL 80 - 100 [facility] [employer] [address] [place] Work Phone: Platelets (Bld) [#/Vol] 133 10*3/uL below lo w threshold 150 - 450 [facility] [employer] [address] [place] Work Phone: RBC (Bld) [#/Vol] 3.75 {x10E12/L} below low threshold See Below [facility] [employer] [address] [place] Work Phone: Comment on above: Reference Range: 4.5 0 - 5.90 WBC (Bld) [#/Vol] 5.7 10*3/uL 4.4 - 11.3 [facility] [place] [address] [place] Work Phone: Lactate, Levelon 06-28-2021 Lactate [Moles/Vol] 0.6 mmol/L 0.4 - 2.0 [facility] [place] [address] [place] Work Phone: Comment on above: [...] RACE VARIABLE FOR THE IDMS-TRACEABLE CREATININE METHODS.https://jasn.asnjournals.org/content/early/ ASN.8178791961 0.0 {/100_WBC} 0.0-0.0 [facility] [address] [place] Work Phone: Tacrolimuson 06-28-2021 Tacrolimus (Bld) [Mass/Vol] 10.4 ng/mL 2.0 - 15.0 [facility] [address] [place] Work Phone: Comment on above: NOTE: Result was obt ained using a chemiluminescent microparticle immunoassay (CMIA) on the [employer] i system.Optimal therapeutic ranges for immuno-suppressant drugs depend upon an individualpatient's current clinical state, type oforgan transplant, time post-transplant,co-administration of other immunosuppressants,and other clinical factors. The results ofthis test should be correlated with additionalclinical and laboratory data before changesin treatment regimens are made. Complete Blood Count + Diffe rentialon 06-27-2021 Basophils/100 WBC (Bld) 0.5 % 0.0 - 2.0 [facility] [address] [place] Work Phone: Erythrocyte distribution width (RBC) [Ratio] 14.3 % See Below [facility] [address] [place] Work Phone: Comment on above: Reference Range: 11. 5 - 14.5 Hematocrit (Bld) [Volume fraction] 33.6 % below low threshold See Below [facility] [address] [place] Work Phone: Comment on above: Reference Range: 41. 0 - 52.0 Hemoglobin (Bld) [Mass/Vol] 10.3 g/dL below low threshold See Below [facility] [address] [place] Work Phone: Comment on above: Reference Range: 13. 5 - 17.5 Lymphocytes/100 WBC (Bld) 13.1 % See Below [facility] [address] [place] Work Phone: [phone] Comment on above: Reference Range: 13. 0 - 44.0 MCHC (RBC) [Mass/Vol] 30.7 g/dL below low threshold See Below [facility] [address] [place] Work Phone: [phone] Comment on above: Reference Range: 32. 0 - 36.0 MCV (RBC) [Entitic vol] 92 fL 80 - 100 [facility] [address] [place] Work Phone: [phone] Monocytes/100 WBC (Bld) 9.0 % 2.0 - 10.0 [facility] [address] [place] Work Phone: [phone] Neutrophils/100 WBC (Bld) 72.5 % See Below [facility] [address] [place] Work Phone: [phone] Comment on above: Reference Range: 40. 0 - 80.0 Platelets (Bld) [#/Vol] 137 10*3/uL below lo w threshold 150 - 450 [facility] [address] [place] Work Phone: [phone] RBC (Bld) [#/Vol] 3.67 {x10E12/L} below low threshold See Below [facility] [address] [place] Work Phone: [phone] Comment on above: Reference Range: 4.5 0 - 5.90 WBC (Bld) [#/Vol] 6.4 10*3/uL 4.4 - 11.3 [facility] [address] [place] Work Phone: [phone] Complete Blood Count + Differential 0.03 {x10E9/L} See Below [facility] [address] [place] Work Phone: Comment on [...] 06-27-2021 Glucose [Mass/Vol] 263 mg/dL [facility] Comment on above: Random Glucose Refer [...] 57 U/L 33 - 136 [facility] [address] [place] Work Phone: ALT With P-5'-P [Catalytic activity/Vol] 4 U/L below low threshold 10 - 52 [facility] [address] [place] Work Phone: Comment on above: Patients treated wit h Sulfasalazine may generate falsely decreased results for ALT. Anion gap [Moles/Vol] 18 mmol/L 10 - 20 [facility] [address] [place] Work Phone: AST With P-5'-P [Catalytic activity/Vol] 10 U/L 9 - 39 [facility] [address] [place] Work Phone: Bilirubin [Mass/Vol] 0.3 mg/dL 0.0 - 1.2 [facility] [address] [place] Work Phone: Calcium [Mass/Vol] 8.3 mg/dL below low threshold 8.6 - 10.6 [facility] [address] [place] Work Phone: Chloride [Moles/Vol] [...] high threshold 74 - 99 [facility] [address] [place] Work Phone: Potassium [Moles/Vol] 3.7 mmol/L 3.5 - 5.3 [facility] [address] [place] Work Phone: Protein [Mass/Vol] 5.7 g/dL below low threshold 6.4 - 8.2 [facility] [address] [place] Work Phone: Sodium [Moles/Vol] 142 mmol/L 136 - 145 [facility] [address] [place] Work Phone: Urea nitrogen [Mass/Vol] 37 mg/dL above high threshold 6 - 23 [facility] [address] [place] Work Phone: Glucose [Mass/Vol] 178 mg/dL above high threshold 74 - 99 [facility] [address] [place] Work Phone: Glucose [Mass/Vol] [...] RACE VARIABLE FOR THE IDMS-TRACEABLE CREATININE METHODS.https://jasn.asnjournals.org/content// ASN.4720510682 No Panel InformationOrdered By: Yoshi Wu on 06-27-2021 Bedside Glucose Comment Glu2: cleaned [facility] Automated erythrocytes count in urine sediment (number/area)Ordered By: Audra Quinteros on 06-26-2021 RBC Auto (Urine sed) [#/Area] 0-1 [HPF] [facility] Automated leukocytes count i n urine sediment (number/area)Ordered By: Audra Quinteros on 06-26-2021 WBC Auto (Urine sed) [#/Area] 0-1 [HPF] [facility] Bilirubin Test strip Ql (U)O rdered By: Audra Quinteros on 06-26-2021 Bilirubin Ql (U) Negative Negative [facility] COVID-19 Positive/NegativeOr dered By: Omid Myrick on 06-26-2021 SARS-CoV-2 (COVID-19) N gene JOYCE+probe Ql (Resp) Negative Negative [facility] Comment on above: Testing for SARS-CoV -2 by RT-PCRThis test was developed and its performance characteristics determined by [employer] and validated at the [facility]. This test has not been [...] Quinteros on 06-26-2021 Color (U) Yellow Yellow [facility] Creatinine [Mass/volume] in UrineOrdered By: Audra Quinteros on 06-26-2021 Creatinine (U) [Mass/Vol] 71.5 mg/dL [facility] Comment on above: No reference range e stablished Creatinine and Glomerular fi ltration rate.predicted panel (S/P/Bld)Ordered By: Audra Quinteros on 06-26-2021 Creatinine [Mass/Vol] 1.99 mg/dL 0.64-1.27 [facility] Estimated glomerular filtrat ion rate (GFR) non- AmericanOrdered By: Audra Quinteros on 06-26-2021 GFR/1.73 sq M.predicted among non-blacks MDRD (S/P/Bld) [Vol rate/Area] 33 mL/Min [facility] Ketones Auto test strip (U) [Mass/Vol]Ordered By: Audra Quinteros on 06-26-2021 Ketones (U) [Mass/Vol] Negative Negative [facility] Laboratory - Microbiology an d Antimicrobial susceptibilityOrdered By: Omid Myrick on 06-26-2021 SARS-CoV-2 (COVID-19) RNA JOYCE+probe Ql (Unsp spec) N/A [facility] Laboratory - UrinalysisOrder ed By: Audra Quinteros on 06-26-2021 Hyaline casts LM Ql (Urine sed) 0-8 [LPF] [facility] Nitrite Test strip Ql (U)Ord ered By: Audra Quinteros on 06-26-2021 Nitrite Ql (U) Negative Negative [facility] No Panel InformationOrdered By: Audra Quinteros on 06-26-2021 Estimated GFR () 40 mL/Min [facility] Comment on above: GFR estimated refere nce range: According to KDOQI guidelines, <60 ml/min/1.73m2 is sufficient to diagnose a patient with chronic kidney disease. Pharmacy Creatinine Clearance (Chem 39.80 [facility] Protein Auto test strip (U) [Mass/Vol]Ordered By: Audra Quinteros on 06-26-2021 Protein (U) [Mass/Vol] 300 mg/dL Negative [facility] Serum or plasma calcium abhijit urement (mass/volume)Ordered By: Audra Quinteros on 06-26-2021 Calcium [Mass/Vol] 8.9 mg/dL 8.2-10.2 [facility] Serum or plasma chloride marylin surement (moles/volume)Ordered By: Audra Quinteros on 06-26-2021 Chloride [Moles/Vol] 105 mmol/L 95-114 [facility] Serum or plasma glucose abhijit urement (mass/volume)Ordered By: Audra Quinteros on 06-26-2021 Glucose [Mass/Vol] 194 mg/dL 70-100 [facility] Comment on above: ADA recommended refe rence rangeRandom Glucose Reference Range is dependent on time and content of last meal. Glucose of more than 200 mg/dL in a nonstressed, ambulatory subject supports the diagnosis of Diabetes Mellitus. Serum or plasma potassium me asurement (moles/volume)Ordered By: Omid Myrick on 06-26-2021 Potassium [Moles/Vol] 4.0 mmol/L 3.5-5.1 [facility] Serum or plasma sodium measu rement (moles/volume)Ordered By: Audra Quinteros on 06-26-2021 Sodium [Moles/Vol] 140 mmol/L 136-146 [facility] Serum or plasma total carbon dioxide measurement (moles/volume)Ordered By: Audra Quinteros on 06-26-2021 CO2 [Moles/Vol] 23.8 mmol/L 22.0-30.0 [facility] Serum or plasma urea nitroge n measurement (mass/volume)Ordered By: Audra Quinteros on 06-26-2021 Urea nitrogen [Mass/Vol] 39 mg/dL 9-23 [facility] Specific gravity Auto test s trip (U) [Rel density]Ordered By: Audra Quinteros on 06-26-2021 Specific gravity (U) [Rel density] 1.015 1.001-1.03 0 [facility] Squamous epithelial cells de tection in urine sediment by light microscopyOrdered By: Audra Quinteros on 06-26-2021 Epithelial cells.squamous LM Ql (Urine sed) None seen [HPF] [facility] Urine bacteria detection by automated methodOrdered By: Audra Quinteros on 06-26-2021 Bacteria Auto Ql (U) None seen None Seen [facility] Urine clarity by refractomet ry automatedOrdered By: Audra Quinteros on 06-26-2021 Clarity Refractometry automated (U) Clear Clear [facility] Urine glucose measurement by automated test strip (mass/volume)Ordered By: Audra Quinteros on 06-26-2021 Glucose Auto test strip (U) [Mass/Vol] Normal mg/dL Normal [facility] Urine hemoglobin detection b y automated test stripOrdered By: Audra Quinteros on 06-26-2021 Hemoglobin Auto test strip Ql (U) Negative Negative [facility] Urine leukocyte esterase det ection by automated test stripOrdered By: Audra Quinteros on 06-26-2021 Leukocyte esterase Auto test strip Ql (U) Negative Negative [facility] Urine sodium measurement (mo les/volume)Ordered By: Audra Quinteros on 06-26-2021 Sodium (U) [Moles/Vol] 94 mmol/L [facility] Comment on above: No reference range e stablished Urobilinogen Auto test strip (U) [Mass/Vol]Ordered By: Audra Quinteros on 06-26-2021 Urobilinogen (U) [Mass/Vol] Normal mg/dL Normal [facility] pH Auto test strip (U)Ordere d By: Audra Quinteros on 06-26-2021 pH (U) 5.5 [pH] 5.0-9.0 [facility] Activated partial thrombopla stin time (aPTT) in platelet poor plasma by coagulation aOrdered By: Andrew Hernández on 06-25-2021 aPTT Coag (PPP) [Time] 33.4 s 25.1-36.5 [facility] Albumin [Mass/volume] in Ser um or PlasmaOrdered By: Andrew Hernández on 06-25-2021 Albumin [Mass/Vol] 3.4 g/dL 3.2-5.5 [facility] Basophils Auto (Bld) [#/Vol] Ordered By: Andrew Hernández on 06-25-2021 Basophils (Bld) [#/Vol] 0.0 10*3/uL 0.0-0.2 [facility] Basophils/100 WBC Auto (Bld) Ordered By: Andrew Hernández on 06-25-2021 Basophils/100 WBC (Bld) 0.6 % [facility] Blood hemoglobin measurement (mass/volume)Ordered By: Andrew Hernández on 06-25-2021 Hemoglobin (Bld) [Mass/Vol] 11.8 g/dL 13.0-17.0 [facility] Blood leukocytes automated c ount (number/volume)Ordered By: Andrew Hernández on 06-25-2021 WBC (Bld) [#/Vol] 7.5 10*3/uL 4.5-11.0 [facility] COVID-19 SOFIAOrdered By: Prasanna Hernández on 06-25-2021 SARS-CoV+SARS-CoV-2 (COVID-19) Ag IA.rapid Ql (Resp) Negative Negative [facility] Comment on above: This is a duplicate Jessi SARS Antigen (GABI) result to be used for statistical tracking purpose only. Creatinine and Glomerular fi ltration rate.predicted panel (S/P/Bld)Ordered By: Andrew Hernández on 06-25-2021 Creatinine [Mass/Vol] 2.25 mg/dL 0.64-1.27 [facility] Eosinophils Auto (Bld) [#/Vo l]Ordered By: Andrew Hernández on 06-25-2021 Eosinophils (Bld) [#/Vol] 0.3 10*3/uL 0.0-0.45 [facility] Eosinophils/100 WBC Auto (Bl d)Ordered By: Andrew Hernández on 06-25-2021 Eosinophils/100 WBC (Bld) 4.6 % [facility] Erythrocyte distribution wid th Auto (RBC) [Ratio]Ordered By: Andrew Hernández on 06-25-2021 Erythrocyte distribution width (RBC) [Ratio] 16.1 % 12.0-14.8 [facility] Erythrocyte sedimentation ra te by Photometric methodOrdered By: Andrew Hernández on 06-25-2021 ESR Photometric method (Bld) [Velocity] 39 mm/hr 0-19 [facility] Estimated glomerular filtrat ion rate (GFR) non- AmericanOrdered By: Andrew Hernández on 06-25-2021 GFR/1.73 sq M.predicted among non-blacks MDRD (S/P/Bld) [Vol rate/Area] 28 mL/Min [facility] Globulin Calc (S) [Mass/Vol] Ordered By: Andrew Hernández on 06-25-2021 Globulin (S) [Mass/Vol] 3.2 g/dL [facility] Hematocrit Auto (Bld) [Volum e fraction]Ordered By: Andrew Hernández on 06-25-2021 Hematocrit (Bld) [Volume fraction] 36.2 % 38.8-50.0 [facility] Laboratory - Chemistry and C hemistry - challengeOrdered By: Andrew Hernández on 06-25-2021 Natriuretic peptide B (Bld) [Mass/Vol] 165.0 pg/mL 5-100 [facility] Laboratory - CoagulationOrde red By: Andrew Hernández on 06-25-2021 PT Coag (PPP) [Time] 11.9 s 9.0-12.9 [facility] Laboratory - Hematology and Cell countsOrdered By: Andrew Hernández on 06-25-2021 Nucleated RBC/100 WBC (Bld) [Ratio] 0.1 % 0-0.5 [facility] Lymphocytes Auto (Bld) [#/Vo l]Ordered By: Andrew Hernández on 06-25-2021 Lymphocytes (Bld) [#/Vol] 1.0 10*3/uL 1.00-4.8 [facility] Lymphocytes/100 WBC Auto (Bl d)Ordered By: Andrew Hernández on 06-25-2021 Lymphocytes/100 WBC (Bld) 12.9 % [facility] MCH Auto (RBC) [Entitic mass ]Ordered By: Andrew Hernández on 06-25-2021 MCH (RBC) [Entitic mass] 28.1 pg 27.5-35.2 [facility] MCHC Auto (RBC) [Mass/Vol]Or dered By: Andrew Hernández on 06-25-2021 MCHC (RBC) [Mass/Vol] 32.7 g/dL 32.5-35.6 [facility] MCV Auto (RBC) [Entitic vol] Ordered By: Andrew Hernández on 06-25-2021 MCV (RBC) [Entitic vol] 86.0 fL 83.5-101 [facility] Monocytes Auto (Bld) [#/Vol] Ordered By: Andrew Hernández on 06-25-2021 Monocytes (Bld) [#/Vol] 0.5 10*3/uL 0.0-0.8 [facility] Monocytes/100 WBC Auto (Bld) Ordered By: Andrew Hernández on 06-25-2021 Monocytes/100 WBC (Bld) 7.3 % [facility] Neutrophils Auto (Bld) [#/Vo l]Ordered By: Andrew Hernández on 06-25-2021 Neutrophils (Bld) [#/Vol] 5.6 10*3/uL 1.8-7.7 [facility] Neutrophils/100 WBC Auto (Bl d)Ordered By: Andrew Hernández on 06-25-2021 Neutrophils/100 WBC (Bld) 74.6 % [facility] No Panel InformationOrdered By: Andrew Hernández on 06-25-2021 SARS Antigen (LFIA) [facility] Estimated GFR () 34 mL/Min [facility] Comment on above: GFR estimated refere nce range: According to KDOQI guidelines, <60 ml/min/1.73m2 is sufficient to diagnose a patient with chronic kidney disease. Pharmacy Creatinine Clearance (Chem 365.00 [facility] Platelet mean volume Auto (B ld) [Entitic vol]Ordered By: Andrew Hernández on 06-25-2021 Platelet mean volume (Bld) [Entitic vol] 10.0 fL 6.6-10.1 [facility] Platelet poor plasma interna tional normalized ratio (INR) by coagulation assay (relatOrdered By: Andrew Hernández on 06-25-2021 INR Coag (PPP) [Relative time] 1.1 {INR} [facility] Comment on above: INR Therapeutic [...] 06-25-2021 Platelets (Bld) [#/Vol] 171 10*3/uL 150-450 [facility] Comment on above: Delta: 119 on 04/05/ 22-0453 Protein [Mass/volume] in Ser um or PlasmaOrdered By: Andrew Hernández on 06-25-2021 Protein [Mass/Vol] 6.6 g/dL 6.1-7.9 [facility] RBC Auto (Bld) [#/Vol]Ordere d By: Andrew Hernández on 06-25-2021 RBC (Bld) [#/Vol] 4.21 10*6/uL 3.90-5.60 [facility] Serum or plasma C reactive p rotein measurement (mass/volume)Ordered By: Andrew Hernández on 06-25-2021 CRP [Mass/Vol] 0.9 mg/dL 0.0-1.0 [facility] Serum or plasma alanine lopez otransferase measurement without P-5'-P (enzymatic activiOrdered By: Andrew Hernández on 06-25-2021 ALT No additional P-5'-P [Catalytic activity/Vol] 13 U/L 10-60 [facility] Serum or plasma albumin/glob ulin mass ratioOrdered By: Andrew Hernández on 06-25-2021 Albumin/Globulin [Mass ratio] 1.1 {ratio} [facility] Serum or plasma alkaline cande sphatase measurement (enzymatic activity/volume)Ordered By: Andrew Hernández on 06-25-2021 ALP [Catalytic activity/Vol] 57 U/L 32-92 [facility] Serum or plasma aspartate am inotransferase measurement (enzymatic activity/volume)Ordered By: Andrew Hernández on 06-25-2021 AST [Catalytic activity/Vol] 15 U/L 10-42 [facility] Serum or plasma calcium abhijit urement (mass/volume)Ordered By: Andrew Hernández on 06-25-2021 Calcium [Mass/Vol] 9.2 mg/dL 8.2-10.2 [facility] Serum or plasma chloride marylin surement (moles/volume)Ordered By: Andrew Hernández on 06-25-2021 Chloride [Moles/Vol] 106 mmol/L 95-114 [facility] Serum or plasma glucose abhijit urement (mass/volume)Ordered By: Andrew Hernández on 06-25-2021 Glucose [Mass/Vol] 177 mg/dL 70-100 [facility] Comment on above: ADA recommended refe rence rangeRandom Glucose Reference Range is dependent on time and content of last meal. Glucose of more than 200 mg/dL in a nonstressed, ambulatory subject supports the diagnosis of Diabetes Mellitus. Serum or plasma potassium me asurement (moles/volume)Ordered By: Andrew Hernández on 06-25-2021 Potassium [Moles/Vol] 4.2 mmol/L 3.5-5.1 [facility] Serum or plasma sodium measu rement (moles/volume)Ordered By: Andrew Hernández on 06-25-2021 Sodium [Moles/Vol] 142 mmol/L 136-146 [facility] Serum or plasma total biliru bin measurement (mass/volume)Ordered By: Andrew Hernández on 06-25-2021 Bilirubin [Mass/Vol] 0.4 mg/dL 0.3-1.2 [facility] Serum or plasma total carbon dioxide measurement (moles/volume)Ordered By: Andrew Hernández on 06-25-2021 CO2 [Moles/Vol] 24.1 mmol/L 22.0-30.0 [facility] Serum or plasma urea nitroge n measurement (mass/volume)Ordered By: Andrew Hernández on 06-25-2021 Urea nitrogen [Mass/Vol] 41 mg/dL 9-23 [facility] Troponin I.cardiac [Mass/vol ume] in Serum or Plasma by High sensitivity methodOrdered By: Andrew Hernández on 06-25-2021 Troponin I.cardiac High sensitivity method [Mass/Vol] 12 pg/mL 0-20 [facility] Albumin [Mass/volume] in Ser um or PlasmaOrdered By: Julee Davies on 06-24-2021 Albumin [Mass/Vol] 2.9 g/dL 3.2-5.5 [facility] Basophils Auto (Bld) [#/Vol] Ordered By: Julee Davies on 06-24-2021 Basophils (Bld) [#/Vol] 0.0 10*3/uL 0.0-0.2 [facility] Basophils/100 WBC Auto (Bld) Ordered By: Julee Davies on 04-05-2022 Basophils/100 WBC (Bld) 0.6 % [facility] Blood hemoglobin measurement (mass/volume)Ordered By: Julee Davies on 06-24-2021 Hemoglobin (Bld) [Mass/Vol] 10.8 g/dL 13.0-17.0 [facility] Blood leukocytes automated c ount (number/volume)Ordered By: Julee Davies on 06-24-2021 WBC (Bld) [#/Vol] 6.6 10*3/uL 4.5-11.0 [facility] Creatinine and Glomerular fi ltration rate.predicted panel (S/P/Bld)Ordered By: Julee Davies on 06-24-2021 Creatinine [Mass/Vol] 2.17 mg/dL 0.64-1.27 [facility] Eosinophils Auto (Bld) [#/Vo l]Ordered By: Julee Davies on 06-24-2021 Eosinophils (Bld) [#/Vol] 0.3 10*3/uL 0.0-0.45 [facility] Eosinophils/100 WBC Auto (Bl d)Ordered By: Julee Davies on 06-24-2021 Eosinophils/100 WBC (Bld) 5.2 % [facility] Erythrocyte distribution wid th Auto (RBC) [Ratio]Ordered By: Julee Davies on 06-24-2021 Erythrocyte distribution width (RBC) [Ratio] 15.8 % 12.0-14.8 [facility] Estimated glomerular filtrat ion rate (GFR) non- AmericanOrdered By: Julee Davies on 06-24-2021 GFR/1.73 sq M.predicted among non-blacks MDRD (S/P/Bld) [Vol rate/Area] 30 mL/Min [facility] Globulin Calc (S) [Mass/Vol] Ordered By: Julee Davies on 06-24-2021 Globulin (S) [Mass/Vol] 2.4 g/dL [facility] Hematocrit Auto (Bld) [Volum e fraction]Ordered By: Julee Davies on 06-24-2021 Hematocrit (Bld) [Volume fraction] 33.0 % 38.8-50.0 [facility] Laboratory - Chemistry and C hemistry - challengeOrdered By: Julee Davies on 06-24-2021 Magnesium [Mass/Vol] 1.9 mg/dL 1.6-2.6 [facility] Natriuretic peptide B (Bld) [Mass/Vol] 224.0 pg/mL 5-100 [facility] Laboratory - Hematology and Cell countsOrdered By: Julee Davies on 06-24-2021 Nucleated RBC/100 WBC (Bld) [Ratio] 0.1 % 0-0.5 [facility] Lymphocytes Auto (Bld) [#/Vo l]Ordered By: Julee Davies on 06-24-2021 Lymphocytes (Bld) [#/Vol] 0.8 10*3/uL 1.00-4.8 [facility] Lymphocytes/100 WBC Auto (Bl d)Ordered By: Julee Davies on 06-24-2021 Lymphocytes/100 WBC (Bld) 11.4 % [facility] MCH Auto (RBC) [Entitic mass ]Ordered By: Julee Davies on 06-24-2021 MCH (RBC) [Entitic mass] 27.7 pg 27.5-35.2 [facility] MCHC Auto (RBC) [Mass/Vol]Or dered By: Julee Davies on 06-24-2021 MCHC (RBC) [Mass/Vol] 32.7 g/dL 32.5-35.6 [facility] MCV Auto (RBC) [Entitic vol] Ordered By: Julee Davies on 06-24-2021 MCV (RBC) [Entitic vol] 84.6 fL 83.5-101 [facility] Monocytes Auto (Bld) [#/Vol] Ordered By: Julee Davies on 06-24-2021 Monocytes (Bld) [#/Vol] 0.5 10*3/uL 0.0-0.8 [facility] Monocytes/100 WBC Auto (Bld) Ordered By: Julee Davies on 06-24-2021 Monocytes/100 WBC (Bld) 7.4 % [facility] Neutrophils Auto (Bld) [#/Vo l]Ordered By: Julee Davies on 06-24-2021 Neutrophils (Bld) [#/Vol] 5.0 10*3/uL 1.8-7.7 [facility] Neutrophils/100 WBC Auto (Bl d)Ordered By: Julee Davies on 06-24-2021 Neutrophils/100 WBC (Bld) 75.4 % [facility] No Panel InformationOrdered By: Julee Davies on 06-24-2021 Estimated GFR () 36 mL/Min [facility] Comment on above: GFR estimated refere nce range: According to KDOQI guidelines, <60 ml/min/1.73m2 is sufficient to diagnose a patient with chronic kidney disease. Pharmacy Creatinine Clearance (Chem N/A [facility] Platelet mean volume Auto (B ld) [Entitic vol]Ordered By: Julee Davies on 06-24-2021 Platelet mean volume (Bld) [Entitic vol] 9.8 fL 6.6-10.1 [facility] Platelets Auto (Bld) [#/Vol] Ordered By: Julee Davies on 06-24-2021 Platelets (Bld) [#/Vol] 119 10*3/uL 150-450 [facility] Protein [Mass/volume] in Ser um or PlasmaOrdered By: Julee Davies on 06-24-2021 Protein [Mass/Vol] 5.3 g/dL 6.1-7.9 [facility] RBC Auto (Bld) [#/Vol]Ordere d By: Julee Davies on 06-24-2021 RBC (Bld) [#/Vol] 3.90 10*6/uL 3.90-5.60 [facility] Serum or plasma alanine lopez otransferase measurement without P-5'-P (enzymatic activiOrdered By: Julee Davies on 06-24-2021 ALT No additional P-5'-P [Catalytic activity/Vol] 7 U/L 10-60 [facility] Serum or plasma albumin/glob ulin mass ratioOrdered By: Julee Davies on 06-24-2021 Albumin/Globulin [Mass ratio] 1.2 {ratio} [facility] Serum or plasma alkaline cande sphatase measurement (enzymatic activity/volume)Ordered By: Julee Davies on 06-24-2021 ALP [Catalytic activity/Vol] 56 U/L 32-92 [facility] Serum or plasma aspartate am inotransferase measurement (enzymatic activity/volume)Ordered By: Julee Davies on 06-24-2021 AST [Catalytic activity/Vol] 13 U/L 10-42 [facility] Serum or plasma calcium abhijit urement (mass/volume)Ordered By: Julee Davies on 06-24-2021 Calcium [Mass/Vol] 8.9 mg/dL 8.2-10.2 [facility] Serum or plasma chloride marylin surement (moles/volume)Ordered By: Julee Davies on 06-24-2021 Chloride [Moles/Vol] 109 mmol/L 95-114 [facility] Serum or plasma glucose abhijit urement (mass/volume)Ordered By: Julee Davies on 06-24-2021 Glucose [Mass/Vol] 160 mg/dL 70-100 [facility] Comment on above: ADA recommended refe rence rangeRandom Glucose Reference Range is dependent on time and content of last meal. Glucose of more than 200 mg/dL in a nonstressed, ambulatory subject supports the diagnosis of Diabetes Mellitus. Serum or plasma potassium me asurement (moles/volume)Ordered By: Julee Davies on 06-24-2021 Potassium [Moles/Vol] 4.1 mmol/L 3.5-5.1 [facility] Serum or plasma sodium measu rement (moles/volume)Ordered By: Julee Davies on 06-24-2021 Sodium [Moles/Vol] 144 mmol/L 136-146 [facility] Serum or plasma total biliru bin measurement (mass/volume)Ordered By: Julee Davies on 06-24-2021 Bilirubin [Mass/Vol] 0.5 mg/dL 0.3-1.2 [facility] Serum or plasma total carbon dioxide measurement (moles/volume)Ordered By: Julee Davies on 06-24-2021 CO2 [Moles/Vol] 25.7 mmol/L 22.0-30.0 [facility] Serum or plasma urea nitroge n measurement (mass/volume)Ordered By: Julee Davies on 06-24-2021 Urea nitrogen [Mass/Vol] 43 mg/dL 9- [facility] Tacrolimus [Mass/volume] in BloodOrdered By: Julee Davies on 06-24-2021 Tacrolimus (Bld) [Mass/Vol] 8.1 ng/mL [facility] Comment on above: This test was vane christine and its performance characteristicsdetermined by [facility]. It has not been cleared orapproved by the Food and Drug Administration. Trough (immediately following transplant) 15.0 Trough (steady state, 2 weeks or more after transplant): 3.0 - 8.0 Performed by LC-MS/MS technology.Performed at: [address] [id number] Director: Mynor Nixon MD, Phone: [phone] Albumin [Mass/volume] in Ser um or PlasmaOrdered By: Julee Davies on 05-27-2021 Albumin [Mass/Vol] 3.1 g/dL 3.2-5.5 [facility] Basophils Auto (Bld) [#/Vol] Ordered By: Julee Davies on 05-27-2021 Basophils (Bld) [#/Vol] 0.0 10*3/uL 0.0-0.2 [facility] Basophils/100 WBC Auto (Bld) Ordered By: Julee Davies on 05-27-2021 Basophils/100 WBC (Bld) 0.7 % [facility] Blood hemoglobin measurement (mass/volume)Ordered By: Julee Davies on 05-27-2021 Hemoglobin (Bld) [Mass/Vol] 11.4 g/dL 13.0-17.0 [facility] Blood leukocytes automated c ount (number/volume)Ordered By: Julee Davies on 05-27-2021 WBC (Bld) [#/Vol] 6.1 10*3/uL 4.5-11.0 [facility] Cholesterol [Mass/volume] in Serum or PlasmaOrdered By: Julee Davies on 05-27-2021 Cholesterol [Mass/Vol] 129 mg/dL 140-200 [facility] Comment on above: Chol less than 200 m g/dl low riskChol 201-239 mg/dl borderline riskChol 240 mg/dl and greater high risk Cholesterol in LDL Calc [Mas s/Vol]Ordered By: Julee Davies on 05-27-2021 Cholesterol in LDL [Mass/Vol] 67 mg/dL 0-100 [facility] Comment on above: LDL ATP III CLASSIFI CATIONLDL less than 100 mg/dL OptimalLDL 100-129 mg/dL Near or above optimalLDL 130-159 mg/dL Borderline highLDL 160-189 mg/dL HighLDL greater than 189 mg/dL Very high Cholesterol in VLDL Calc [Ma ss/Vol]Ordered By: Julee Davies on 05-27-2021 Cholesterol in VLDL [Mass/Vol] 27 mg/dL [facility] Creatinine and Glomerular fi ltration rate.predicted panel (S/P/Bld)Ordered By: Julee Davies on 05-27-2021 Creatinine [Mass/Vol] 1.86 mg/dL 0.64-1.27 [facility] Eosinophils Auto (Bld) [#/Vo l]Ordered By: Julee Davies on 05-27-2021 Eosinophils (Bld) [#/Vol] 0.2 10*3/uL 0.0-0.45 [facility] Eosinophils/100 WBC Auto (Bl d)Ordered By: Julee Davies on 05-27-2021 Eosinophils/100 WBC (Bld) 3.7 % [facility] Erythrocyte distribution wid th Auto (RBC) [Ratio]Ordered By: Julee Davies on 05-27-2021 Erythrocyte distribution width (RBC) [Ratio] 14.9 % 12.0-14.8 [facility] Estimated glomerular filtrat ion rate (GFR) non- AmericanOrdered By: Julee Davies on 05-27-2021 GFR/1.73 sq M.predicted among non-blacks MDRD (S/P/Bld) [Vol rate/Area] 35 mL/Min [facility] Globulin Calc (S) [Mass/Vol] Ordered By: Julee Davies on 05-27-2021 Globulin (S) [Mass/Vol] 2.9 g/dL [facility] Glucose mean value [Mass/vol ume] in Blood Estimated from glycated hemoglobinOrdered By: Julee Davies on 05-27-2021 Average glucose Estimated from glycated hemoglobin (Bld) [Mass/Vol] 209 mg/dL [facility] Hematocrit Auto (Bld) [Volum e fraction]Ordered By: Julee Davies on 05-27-2021 Hematocrit (Bld) [Volume fraction] 34.1 % 38.8-50.0 [facility] Hemoglobin A1c percentageOrd ered By: Julee Davies on 05-27-2021 HbA1c (Bld) [Mass fraction] 8.9 % 4.3-5.6 [facility] Comment on above: Increased risk for d iabetes: 5.7 - 6.4diabetes: >6.4glycemic control for adults with diabetes: <7.0 Laboratory - Hematology and Cell countsOrdered By: Julee Davies on 05-27-2021 Nucleated RBC/100 WBC (Bld) [Ratio] 0.2 % 0-0.5 [facility] Lymphocytes Auto (Bld) [#/Vo l]Ordered By: Julee Davies on 05-27-2021 Lymphocytes (Bld) [#/Vol] 1.1 10*3/uL 1.00-4.8 [facility] Lymphocytes/100 WBC Auto (Bl d)Ordered By: Julee Davies on 05-27-2021 Lymphocytes/100 WBC (Bld) 17.9 % [facility] MCH Auto (RBC) [Entitic mass ]Ordered By: Julee Davies on 05-27-2021 MCH (RBC) [Entitic mass] 28.3 pg 27.5-35.2 [facility] MCHC Auto (RBC) [Mass/Vol]Or dered By: Julee Davies on 05-27-2021 MCHC (RBC) [Mass/Vol] 33.5 g/dL 32.5-35.6 [facility] MCV Auto (RBC) [Entitic vol] Ordered By: Julee Davies on 05-27-2021 MCV (RBC) [Entitic vol] 84.5 fL 83.5-101 [facility] Monocytes Auto (Bld) [#/Vol] Ordered By: Jluee Davies on 05-27-2021 Monocytes (Bld) [#/Vol] 0.5 10*3/uL 0.0-0.8 [facility] Monocytes/100 WBC Auto (Bld) Ordered By: Julee Davies on 05-27-2021 Monocytes/100 WBC (Bld) 7.9 % [facility] Neutrophils Auto (Bld) [#/Vo l]Ordered By: Julee Davies on 05-27-2021 Neutrophils (Bld) [#/Vol] 4.3 10*3/uL 1.8-7.7 [facility] Neutrophils/100 WBC Auto (Bl d)Ordered By: Julee Davies on 05-27-2021 Neutrophils/100 WBC (Bld) 69.8 % [facility] No Panel InformationOrdered By: Julee Davies on 05-27-2021 25-Hydroxy Vitamin D Total 23.8 ng/mL 30-100 [facility] Comment on above: VITAMIN D STATUS 25( [place])VITAMIN D RANGE (ng/mL) Deficient <20 Insufficient 20 to <30Sufficient 30 to 100Reference: Ely MF,Brad NC, Kristy ORTEGA, et al. Evaluation,treatment, and prevention of vitamin D deficiency; an Endocrine Society clinical practice guideline. JCEM. 2010; 96(7):1911-30. Estimated GFR () 43 mL/Min [facility] Comment on above: GFR estimated refere nce range: According to KDOQI guidelines, <60 ml/min/1.73m2 is sufficient to diagnose a patient with chronic kidney disease. Pharmacy Creatinine Clearance (Chem N/A [facility] Platelet Estimate Decreased Normal [facility] Platelet Morphology Comment Normal Normal [facility] Platelet mean volume Auto (B ld) [Entitic vol]Ordered By: Julee Davies on 05-27-2021 Platelet mean volume (Bld) [Entitic vol] 10.6 fL 6.6-10.1 [facility] Platelets Auto (Bld) [#/Vol] Ordered By: Julee Daives on 05-27-2021 Platelets (Bld) [#/Vol] 129 10*3/uL 150-450 [facility] Protein [Mass/volume] in Ser um or PlasmaOrdered By: Julee Davies on 05-27-2021 Protein [Mass/Vol] 6.0 g/dL 6.1-7.9 [facility] RBC Auto (Bld) [#/Vol]Ordere d By: Julee Davies on 05-27-2021 RBC (Bld) [#/Vol] 4.03 10*6/uL 3.90-5.60 [facility] RBC morphologyOrdered By: Maurice Davies on 05-27-2021 RBC morphology finding Nom (Bld) Normal [facility] Serum or plasma alanine lopez otransferase measurement without P-5'-P (enzymatic activiOrdered By: Julee Davies on 05-27-2021 ALT No additional P-5'-P [Catalytic activity/Vol] 7 U/L 10-60 [facility] Serum or plasma albumin/glob ulin mass ratioOrdered By: Julee Davies on 05-27-2021 Albumin/Globulin [Mass ratio] 1.1 {ratio} [facility] Serum or plasma alkaline cande sphatase measurement (enzymatic activity/volume)Ordered By: Julee Davies on 05-27-2021 ALP [Catalytic activity/Vol] 52 U/L 32-92 [facility] Serum or plasma aspartate am inotransferase measurement (enzymatic activity/volume)Ordered By: Julee Davies on 05-27-2021 AST [Catalytic activity/Vol] 11 U/L 10-42 [facility] Serum or plasma calcium abhijit urement (mass/volume)Ordered By: Julee Davies on 05-27-2021 Calcium [Mass/Vol] 9.0 mg/dL 8.2-10.2 [facility] Serum or plasma chloride marylin surement (moles/volume)Ordered By: Julee Davies on 05-27-2021 Chloride [Moles/Vol] 104 mmol/L 95-114 [facility] Serum or plasma glucose abhijit urement (mass/volume)Ordered By: Julee Davies on 05-27-2021 Glucose [Mass/Vol] 183 mg/dL 70-100 [facility] Comment on above: ADA recommended refe rence rangeRandom Glucose Reference Range is dependent on time and content of last meal. Glucose of more than 200 mg/dL in a nonstressed, ambulatory subject supports the diagnosis of Diabetes Mellitus. Serum or plasma high density lipoprotein (HDL) cholesterol measurementOrdered By: Julee Davies on 05-27-2021 Cholesterol in HDL [Mass/Vol] 35 mg/dL 29-71 [facility] Comment on above: HDL CHOL ATP-III CLA SSIFICATION Cardiovascular RiskHDL > or equal to 60 mg/dL LOWHDL < 40 mg/dL HIGH Serum or plasma potassium me asurement (moles/volume)Ordered By: Julee Davies on 05-27-2021 Potassium [Moles/Vol] 4.1 mmol/L 3.5-5.1 [facility] Serum or plasma sodium measu rement (moles/volume)Ordered By: Julee Davies on 05-27-2021 Sodium [Moles/Vol] 140 mmol/L 136-146 [facility] Serum or plasma total biliru bin measurement (mass/volume)Ordered By: Julee Davies on 05-27-2021 Bilirubin [Mass/Vol] 0.4 mg/dL 0.3-1.2 [facility] Serum or plasma total carbon dioxide measurement (moles/volume)Ordered By: Julee Davies on 05-27-2021 CO2 [Moles/Vol] 26.1 mmol/L 22.0-30.0 [facility] Serum or plasma total choles terol/high density lipoprotein (HDL) cholesterol mass ratOrdered By: Julee Davies on 05-27-2021 Cholesterol.total/Denise sterol in HDL [Mass ratio] 3.7 {ratio} [facility] Serum or plasma urea nitroge n measurement (mass/volume)Ordered By: Julee Davies on 05-27-2021 Urea nitrogen [Mass/Vol] 38 mg/dL 9-23 [facility] TSH DL <= 0.005 mIU/L QnOrde red By: Julee Davies on 05-27-2021 TSH Qn 4.10 m[IU]/L 0.45-5.33 [facility] Triglyceride [Mass/volume] i n Serum or PlasmaOrdered By: Julee Davies on 05-27-2021 Triglyceride [Mass/Vol] 136 mg/dL 35-149 [facility] Comment on above: TRIG ATP III [...] haryngealReference Range: Not Detected.This test has received [facility] Emergency Use Authorization (EUA) and has been verified by [facility] ([facility]). This test is only authorized for the duration of time that circumstances exist to justify the authorization of the emergency use of in vitro diagnostic tests for the detection of SARS-CoV-2 virus and/or diagnosis of COVID-19 infection under section 564(b)(1) of the Act, 21 U.S.C. 360bbb-3(b)(1), unless the authorization is terminated or revoked sooner. [facility] is certified under CLIA-88 as qualified to perform high complexity testing. Testing is performed in the [facility] located at [address] [place] [address].SARS-CoV-2/Flu/RSV Multiplex Test: Fact sheet for providers: https://www.fda.gov/media/264394/downloadFact sheet for patients: https://www.fda.gov/media/326646/download Coronavirus 2019 RNA by PCR, Screening Asymptomtic Canceled [facility] DO Work Phone: Comment on above: SOURCE: Nasal, Nasop haryngeal.This test has received FDA Emergency Use Authorization (EUA) and has been verified by [facility] ([facility]). This test is only authorized for the duration of time that circumstances exist to justify the authorization of the emergency use of in vitro diagnostic tests for the detection of SARS-CoV-2 virus and/or diagnosis of COVID-19 infection under section 564(b)(1) of the Act, 21 U.S.C. 360bbb-3(b)(1), unless the authorization is terminated or revoked sooner. [facility] is certified under CLIA-88 as qualified to perform high complexity testing. Testing is performed in the [facility] located at [address] [place] [address].SARS-CoV-2/Flu/RSV Multiplex Test: Fact sheet for providers: https://www.fda.gov/media/017835/downloadFact sheet for patients: https://www.fda.gov/media/131114/download Laboratory - Chemistry and C hemistry - challengeon 12-24-2020 Glucose [Mass/Vol] 203 mg/dL above high threshold 74 - 99 [facility] DO Work Phone: Laboratory - Hematology and Cell countson 12-24-2020 Erythrocyte distribution width (RBC) [Ratio] 12.7 % See Below [facility] DO Work Phone: Comment on [...] lo w threshold 150 - 450 [facility] DO Work Phone: [phone] RBC (Bld) [#/Vol] 3.92 {x10E12/L} below low threshold See Below [facility] [address] DO Work Phone: Comment on above: Reference Range: 4.5 0 - 5.90 WBC (Bld) [#/Vol] 5.1 10*3/uL 4.4 - 11.3 [facility] [address] DO Work Phone: [phone] No Panel Informationon 12-24 Please click on the link to view the study images Normal [facility] DO Work Phone: 0.0 {/100_WBC} 0.0-0.0 [facility] DO Work Phone: [phone] Renal Function Panelon 12-24 Albumin BCP dye [Mass/Vol] 3.6 g/dL 3.4 - 5.0 [facility] DO Work Phone: Anion gap [Moles/Vol] 15 mmol/L 10 - 20 [facility] DO Work Phone: [phone] Calcium [Mass/Vol] 9.0 mg/dL 8.6 - 10.6 [facility] [address] DO Work Phone: [phone] Chloride [Moles/Vol] 109 mmol/L above high threshold 98 - 107 [facility] DO Work Phone: CO2 [Moles/Vol] 24 mmol/L 21 - 32 [facility] DO Work Phone: Creatinine [Mass/Vol] [...] Function Panel 45 {mL/min/1.73m2} Abnormal >60 [facility] DO Work Phone: Comment on above: CALCULATIONS OF ERNST MATED GFR ARE PERFORMED USING THE MDRD STUDY EQUATION FOR THE IDMS-TRACEABLE CREATININE METHODS. CLIN CHEM 2007;53:766-72 Renal Function Panel 37 {mL/min/1.73m2} Abnormal >60 [facility] DO Work Phone: Tacrolimuson 12-24-2020 Tacrolimus (Bld) [Mass/Vol] 5.4 ng/mL 2.0 - 15.0 [facility] DO Work Phone: Comment on above: NOTE: Result was obt ained using a chemiluminescent microparticle immunoassay (CMIA) on the [employer] i system.Optimal therapeutic ranges for immuno-suppressant drugs depend upon an individualpatient's current clinical state, type oforgan transplant, time post-transplant,co-administration of other immunosuppressants,and other clinical factors. The results ofthis test should be correlated with additionalclinical and laboratory data before changesin treatment regimens are made. CT Head without Contraston 1 CT Head limited WO contrast Normal [facility] [address] DO Work Phone: [phone] Laboratory - Chemistry and C hemistry - challengeon 12-23-2020 Glucose [Mass/Vol] 151 mg/dL above high threshold 74 - 99 [facility] DO Work Phone: [phone] Glucose [Mass/Vol] 241 mg/dL above high threshold 74 - 99 [facility] DO Work Phone: [phone] Glucose [Mass/Vol] 195 mg/dL above high threshold 74 - 99 [facility] DO Work Phone: [phone] Glucose [Mass/Vol] 160 mg/dL above high threshold 74 - 99 [facility] DO Work Phone: [phone] Laboratory - Hematology and Cell countson 12-23-2020 Erythrocyte distribution width (RBC) [Ratio] 12.5 % See Below [facility] [address] DO Work Phone: [phone] Comment on above: Reference Range: 11. 5 - 14.5 Hematocrit (Bld) [Volume fraction] 34.3 % below low threshold See Below [facility] DO Work Phone: [phone] Comment on above: Reference Range: 41. 0 - 52.0 Hemoglobin (Bld) [Mass/Vol] 11.1 g/dL below low threshold See Below [facility] [address] DO Work Phone: [phone] Comment on above: Reference Range: 13. 5 - 17.5 MCHC (RBC) [Mass/Vol] 32.4 g/dL See Below [facility] DO Work Phone: [phone] Comment on above: Reference Range: 32. 0 - 36.0 MCV (RBC) [Entitic vol] 90 fL 80 - 100 [facility] 260 DO Work Phone: [phone] Platelets (Bld) [#/Vol] 106 10*3/uL below lo w threshold 150 - 450 [facility] DO Work Phone: [phone] RBC (Bld) [#/Vol] 3.83 {x10E12/L} below low threshold See Below [facility] [address] DO Work Phone: [phone] Comment on above: Reference Range: 4.5 0 - 5.90 WBC (Bld) [#/Vol] 5.2 10*3/uL 4.4 - 11.3 [facility] DO Work Phone: [phone] No Panel Informationon 12-23 0.0 {/100_WBC} 0.0-0.0 [facility] DO Work Phone: [phone] Renal Function Panelon 12-23 Albumin BCP dye [Mass/Vol] 3.6 g/dL 3.4 - 5.0 [facility] DO Work Phone: [phone] Anion gap [Moles/Vol] 14 mmol/L 10 - 20 [facility] DO Work Phone: [phone] Calcium [Mass/Vol] 8.9 mg/dL 8.6 - 10.6 [facility] DO Work Phone: [phone] Chloride [Moles/Vol] 109 mmol/L above high threshold 98 - 107 [facility] DO Work Phone: [phone] CO2 [Moles/Vol] 23 mmol/L 21 - 32 [facility] DO Work Phone: [phone] Creatinine [Mass/Vol] 1.71 mg/dL above high threshold See Below [facility] [address] DO Work Phone: Comment on above: Reference Range: 0.5 0 - 1.30 Glucose [Mass/Vol] 146 mg/dL above high threshold 74 - 99 [facility] DO Work Phone: Phosphate [Mass/Vol] [...] 4.2 mmol/L 3.5 - 5.3 [facility] DO Work Phone: Sodium [Moles/Vol] 142 mmol/L 136 - 145 [facility] DO Work Phone: Urea nitrogen [Mass/Vol] 50 mg/dL above high threshold 6 - 23 [facility] DO Work Phone: Renal Function Panel 47 {mL/min/1.73m2} Abnormal >60 [facility] DO Work Phone: Comment on above: CALCULATIONS OF ERNST MATED GFR ARE PERFORMED USING THE MDRD STUDY EQUATION FOR THE IDMS-TRACEABLE CREATININE METHODS. CLIN CHEM 2007;53:766-72 Renal Function Panel 39 {mL/min/1.73m2} Abnormal >60 [facility] 260 DO Work Phone: Tacrolimuson 12-23-2020 Tacrolimus (Bld) [Mass/Vol] 5.9 ng/mL 2.0 - 15.0 [facility] [address] DO Work Phone: Comment on above: NOTE: Result was obt ained using a chemiluminescent microparticle immunoassay (CMIA) on the [employer] i system.Optimal therapeutic ranges for immuno-suppressant drugs [...] [facility] 260 DO Work Phone: [phone] Glucose [Mass/Vol] 217 mg/dL above high threshold 74 - 99 [facility] 260 DO Work Phone: [phone] Glucose [Mass/Vol] 145 mg/dL above high threshold 74 - 99 [facility] 260 DO Work Phone: Glucose [Mass/Vol] 142 mg/dL above high threshold 74 - 99 [facility] 260 DO Work Phone: Laboratory - Hematology and Cell countson 12-22-2020 Erythrocyte distribution width (RBC) [Ratio] 12.6 % See Below [facility] 260 DO Work Phone: Comment on above: Reference Range: 11. 5 - 14.5 Hematocrit (Bld) [Volume fraction] 33.0 % below low threshold See Below [facility] 260 DO Work Phone: Comment on above: Reference Range: 41. 0 - 52.0 Hemoglobin (Bld) [Mass/Vol] 10.7 g/dL below low threshold See Below [facility] 260 DO Work Phone: Comment on above: Reference Range: 13. 5 - 17.5 MCHC (RBC) [Mass/Vol] 32.4 g/dL See Below [facility] 260 DO Work Phone: [phone] Comment on above: Reference Range: 32. 0 - 36.0 MCV (RBC) [Entitic vol] 91 fL 80 - 100 M [facility] 260 DO Work Phone: [phone] Platelets (Bld) [#/Vol] 107 10*3/uL below lo w threshold 150 - 450 [facility] 260 DO Work Phone: [phone] RBC (Bld) [#/Vol] 3.62 {x10E12/L} below low threshold See Below [facility] 260 DO Work Phone: [phone] Comment on above: Reference Range: 4.5 0 - 5.90 WBC (Bld) [#/Vol] 5.0 10*3/uL 4.4 - 11.3 [facility]-Car diolo gy-[facility] 260 DO Work Phone: [phone] No Panel Informationon 12-22 0.0 {/100_WBC} 0.0-0.0 [facility] 260 DO Work Phone: [phone] Renal Function Panelon 12-22 Albumin BCP dye [Mass/Vol] 3.5 g/dL 3.4 - 5.0 [facility] 260 DO Work Phone: [phone] Anion gap [Moles/Vol] 15 mmol/L 10 - 20 [facility] 260 DO Work Phone: [phone] Calcium [Mass/Vol] 8.9 mg/dL 8.6 - 10.6 [facility] 260 DO Work Phone: [phone] Chloride [Moles/Vol] 111 mmol/L above high threshold 98 - 107 [facility] 260 DO Work Phone: [phone] CO2 [Moles/Vol] 23 mmol/L 21 - 32 [facility]io lo [facility] 260 DO Work Phone: [phone] Creatinine [Mass/Vol] 2.04 mg/dL above high threshold See Below [facility] 260 DO Work Phone: Comment on above: Reference Range: 0.5 0 - 1.30 Glucose [Mass/Vol] 131 mg/dL above high threshold 74 - 99 [facility] 260 DO Work Phone: Phosphate [Mass/Vol] 3.3 mg/dL 2.5 - 4.9 MG-C ardiolo gy-[facility] 260 DO Work Phone: Comment on [...] Function Panel 32 {mL/min/1.73m2} Abnormal >60 [facility] 260 DO Work Phone: Tacrolimuson 12-22-2020 Tacrolimus (Bld) [Mass/Vol] 5.5 ng/mL 2.0 - 15.0 [facility] 260 DO Work Phone: Comment on above: NOTE: Result was obt ained using a chemiluminescent microparticle immunoassay (CMIA) on the [employer] i system.Optimal therapeutic ranges for immuno-suppressant drugs [...] Phone: HbA1c (Bld) [Mass fraction] Canceled [facility] 260 DO Work Phone: Comment on above: Diagnosis of Diabete s-Adults Non-Diabetic: < or = 5.6% Increased risk for developing diabetes: 5.7-6.4% Diagnostic of diabetes: > or = 6.5%. Monitoring of Diabetes Age (y) Therapeutic Goal (%) Adults: >18 <7.0 Pediatrics: 13-18 <7.5 7-12 <8.0 0- 6 7.5-8.5 Citizen Of [place] Diabetes Association. Diabetes Care 33(S1), Mar 2009. [...] 13-18 <7.5 7-12 <8.0 0- 6 7.5-8.5 [place] Diabetes Association. Diabetes Care 33(S1), Mar 2009. Hemoglobin A1C Canceled [facility] 260 DO Work Phone: Laboratory - Chemistry and C hemistry - challengeon 12-21-2020 Glucose [Mass/Vol] 191 mg/dL above high threshold 74 - 99 [facility] 260 DO Work Phone: Glucose [Mass/Vol] 203 mg/dL above high threshold 74 - 99 [facility] 260 DO Work Phone: [phone] Glucose [Mass/Vol] 229 mg/dL above high threshold 74 - 99 [facility] 260 DO Work Phone: Glucose [Mass/Vol] 136 mg/dL above high threshold 74 - 99 [facility] 260 DO Work Phone: Laboratory - [...] [facility] 260 DO Work Phone: [phone] Platelets (Bld) [#/Vol] 124 10*3/uL below lo w threshold 150 - 450 [facility] gy[facility] 260 DO Work Phone: [phone] RBC (Bld) [#/Vol] 4.01 {x10E12/L} below low threshold See Below [facility] 260 DO Work Phone: [phone] Comment on above: Reference Range: 4.5 0 - 5.90 WBC (Bld) [#/Vol] 6.2 10*3/uL 4.4 - 11.3 [facility] 260 DO Work Phone: [phone] No Panel Informationon 12-21 0.0 {/100_WBC} 0.0-0.0 [facility] 260 DO Work Phone: [phone] Renal Function Panelon 12-21 Albumin BCP dye [Mass/Vol] 3.8 g/dL 3.4 - 5.0 [facility] 260 DO Work Phone: [phone] Anion gap [Moles/Vol] 15 mmol/L 10 - 20 [facility] 260 DO Work Phone: [phone] Calcium [Mass/Vol] 8.8 mg/dL 8.6 - 10.6 [facility] 260 DO Work Phone: [phone] Chloride [Moles/Vol] 110 mmol/L above high threshold 98 - 107 [facility] 260 DO Work Phone: [phone] CO2 [Moles/Vol] 23 mmol/L 21 - 32 [facility]io lo [facility] 260 DO Work Phone: [phone] Creatinine [Mass/Vol] 2.22 mg/dL above high threshold See Below [facility] 260 DO Work Phone: [phone] Comment on above: Reference Range: 0.5 0 - 1.30 Glucose [Mass/Vol] 114 mg/dL above high threshold 74 - 99 [facility] 260 DO Work Phone: Phosphate [Mass/Vol] 3.6 mg/dL 2.5 - 4.9 MG-C ardiolo gy-[facility] 260 DO Work Phone: Comment on above: The performance waqar acteristics of phosphorus testing in heparinized plasma have been validated by the individual laboratory site where testing is performed. Testing on heparinized plasma is not approved by the FDA; however, such approval is not necessary. Potassium [Moles/Vol] 4.1 mmol/L 3.5 - 5.3 [facility] 260 DO Work Phone: Sodium [Moles/Vol] 144 mmol/L 136 - 145 [facility] 260 DO Work Phone: Urea nitrogen [Mass/Vol] 68 mg/dL above high threshold 6 - 23 [facility] 260 DO Work Phone: Renal Function Panel 35 {mL/min/1.73m2} Abnormal >60 [facility] 260 DO Work Phone: Comment on above: CALCULATIONS OF ERNST MATED GFR ARE PERFORMED USING THE MDRD STUDY EQUATION FOR THE IDMS-TRACEABLE CREATININE METHODS. CLIN CHEM 2007;53:766-72 Renal Function Panel 29 {mL/min/1.73m2} Abnormal >60 [facility] 260 DO Work Phone: Tacrolimuson 12-21-2020 Tacrolimus (Bld) [Mass/Vol] 6.8 ng/mL 2.0 - 15.0 [facility] 260 DO Work Phone: Comment on above: NOTE: Result was obt ained using a chemiluminescent microparticle immunoassay (CMIA) on the Mar[employer] C[employer] i system.Optimal therapeutic ranges for immuno-suppressant drugs depend upon an individualpatient's current clinical state, type oforgan transplant, time post-transplant,co-administration of other immunosuppressants,and other clinical factors. The results ofthis test should be correlated with additionalclinical and laboratory data before changesin treatment regimens are made. Coronavirus 2019 RNA by PCR, Symptomaticon 12-20-2020 Coronavirus 2019 RNA by PCR, Symptomatic Not detected Normal See Below [facility] 260 DO Work Phone: Comment on above: SOURCE: Nasal, Nasop haryngealReference Range: Not Detected.This test has received FDA Emergency Use Authorization (EUA) and has been verified by [facility] ([facility]). This test is only authorized for the duration of time that circumstances exist to justify the authorization of the emergency use of in vitro diagnostic tests for the detection of SARS-CoV-2 virus and/or diagnosis of COVID-19 infection under section 564(b)(1) of the Act, 21 U.S.C. 360bbb-3(b)(1), unless the authorization is terminated or revoked sooner. [facility] is certified under CLIA-88 as qualified to perform high complexity testing. Testing is performed in the [facility] located at [address] [place] [address].SARS-CoV-2/Flu/RSV Multiplex Test: Fact sheet for providers: https://www.fda.gov/media/648086/downloadFact sheet for patients: https://www.fda.gov/media/162034/download Date and time of symptom onset Canceled [facility] 260 DO Work Phone: Coronavirus 2019 RNA by PCR, Symptomatic Canceled [facility] 260 DO Work Phone: Comment on [...] this test method. Fact sheet for providers: www.fda.gov/media/323825/downloadFact sheet for patients: www.fda.gov/media/466585/downloadThis test has received FDA Emergency Use Authorization (EUA) and has been verified by [facility] ([facility]). This test is only authorized for the duration of time that circumstances exist to justify the authorization of the emergency use of in vitro diagnostic tests for the detection of SARS-CoV-2 virus and/or diagnosis of COVID-19 infection under section 564(b)(1) of the Act, 21 U.S.C. 360bbb-3(b)(1), unless the authorization is terminated or revoked sooner. [facility] is certified under CLIA-88 as qualified to perform high complexity testing. Testing is performed in the [facility] laboratories located at [address] [place] [address]. Folate, Serumon 12-20-2020 Folate [Mass/Vol] ng/mL >5.0 MG[facility]Card iolo gy-[facility] 260 DO Work Phone: Comment on [...] TSH Qn 2.00 m[IU]/L See Below [facility] 260 DO Work Phone: Comment on above: Reference Range: 0.4 4 - 3.98 TSH testing is performed using different testing methodology at [facility] than at other [place] [facility]. Direct result comparisons should only be made [...] [facility] 260 DO Work Phone: [phone] PT Coag (PPP) [Time] Canceled MG-C ardiolo gy-[facility] 260 DO Work Phone: [phone] Laboratory - Hematology and Cell countson 12-20-2020 Erythrocyte distribution width (RBC) [Ratio] 12.9 % See Below [facility] 260 DO Work Phone: [phone] Comment on above: Reference Range: 11. 5 - 14.5 Hematocrit (Bld) [Volume fraction] 35.8 % below low threshold See Below [facility] 260 DO Work Phone: [phone] Comment on above: Reference Range: 41. 0 - 52.0 Hemoglobin (Bld) [Mass/Vol] 11.7 g/dL below low threshold See Below [facility] 260 DO Work Phone: [phone] Comment on above: Reference Range: 13. 5 - 17.5 MCHC (RBC) [Mass/Vol] 32.7 g/dL See Below [facility]- [facility] 260 DO Work Phone: [phone] Comment on above: Reference Range: 32. 0 - 36.0 MCV (RBC) [Entitic vol] 90 fL 80 - 100 M G-Cardiolo gy[facility] 260 DO Work Phone: [phone] Platelets (Bld) [#/Vol] 131 10*3/uL below lo w threshold 150 - 450 [facility] 260 DO Work Phone: [phone] RBC (Bld) [#/Vol] 3.97 {x10E12/L} below low [...] above: . <100 pg/mL - Heart failure -439 pg/mL - Intermediate probability of acute heart. [...] Radiologyon 12-20-2020 XR Abdomen AP Normal [facility] 260 DO Work Phone: XR Chest [...] 9.2 mg/dL 8.6 - 10.6 MG-Car diolo gy-[facility] 260 DO Work Phone: [phone] Chloride [Moles/Vol] 112 mmol/L above high threshold 98 - 107 [facility] 260 DO Work Phone: [phone] CO2 [Moles/Vol] 24 mmol/L 21 - 32 MG[facility]Cardio lo gy[facility] 260 DO Work Phone: [phone] Creatinine [Mass/Vol] 2.40 mg/dL above high threshold See Below [facility] 260 DO Work Phone: [phone] Comment on above: Reference Range: 0.5 0 - 1.30 Glucose [Mass/Vol] 211 mg/dL above high threshold 74 - 99 [facility] 260 DO Work Phone: [phone] Phosphate [Mass/Vol] 4.5 mg/dL 2.5 - 4.9 MG-C ardiolo gy-[facility] 260 DO Work Phone: [phone] Comment on above: The performance waqar acteristics [...] above high threshold 136 - 145 [facility] 260 DO Work Phone: [phone] Urea nitrogen [Mass/Vol] 74 mg/dL above high threshold 6 - 23 [facility] 260 DO Work Phone: Renal Function Panel 31 {mL/min/1.73m2} Abnormal >60 [facility] 260 DO Work Phone: Comment on [...] a chemiluminescent microparticle immunoassay (CMIA) on the Mar[employer] Cutter i system.Optimal therapeutic ranges for immuno-suppressant drugs depend upon an individualpatient's current clinical state, type oforgan transplant, time post-transplant,co-administration of other immunosuppressants,and other clinical factors. The results ofthis test should be correlated with additionalclinical and laboratory data before changesin treatment regimens are made. Troponin I, Serumon 12-21-19 Troponin I.cardiac [Mass/Vol] 0.02 ng/mL See Below [facility] 260 DO Work Phone: Comment on [...] is performed using different testing methodology at [facility] than at other [facility]. Direct result comparisons should only [...] above high threshold 211 - 911 MG-Cardiolo woo-[facility] 260 [employer] Work Phone: Basic Metabolic PanelOrdered By: Manuel Conner on 12-19-2020 Anion gap [Moles/Vol] 11 mmol/L 9 - 17 mmol/L [employer] Phone: Calcium [Mass/Vol] 9.3 mg/dL 8.6 - 10. 4 mg/dL [employer] Phone: Chloride [Moles/Vol] 107 mmol/L 98 - 10 7 mmol/L [employer] Phone: CO2 [Moles/Vol] 23 mmol/L 20 - 31 mmol/L [employer] Phone: Creatinine [Mass/Vol] 2.53 mg/dL High 0.70 - 1.20 mg/dL [employer] Phone: GFR 30 mL/min Low >60 [employer] Phone: GFR Non- 25 mL/min Low >60 [employer] Phone: Glucose [Mass/Vol] 160 mg/dL High 70 - 99 mg/dL [employer] Phone: Interpretation and review of laboratory results Abnormal [employer] Phone: Potassium [Moles/Vol] 4.5 mmol/L 3.7 - 5.3 mmol/L [employer] Phone: Sodium [Moles/Vol] 141 mmol/L 135 - 144 mmol/L [employer] Phone: Urea nitrogen (BldV) [Mass/Vol] 76 mg/dL High 8 - 23 mg/dL [employer] Phone: Urea nitrogen/Creatinine (Bld) [Mass ratio] 30 High [employer] Phone: [employer] Phone: Laboratory - Chemistry and C hemistry - challengeOrdered By: Manuel Conner on 12-19-2020 GFR/1.73 sq M.predicted MDRD (S/P/Bld) [Vol rate/Area] [employer] Phone: Comment on above: Average GFR for 70 o r more years old: 75 mL/min/1.73sq m Chronic Kidney Disease: <60 mL/min/1.73sq m Kidney failure: <15 mL/min/1.73sq m eGFR calculated using average adult body mass. Additional eGFR calculator available at: http://www.[employer]Velocity/Cancer Genetics_crcl_2012.htm Stage 1: Some kidney damage normal GFR Stage 2: Mild kidney damage GFR 60-89 Stage 3: Moderate kidney damage GFR 30-59 Stage 4: Severe kidney damage GFR 15-29 Stage 5: Severe kidney damage GFR <15 ESRD - chronic treatment by dialysis or transplant TroponinOrdered By: Manuel Conner on 12-19-2020 Interpretation and review of laboratory results Abnormal [employer] Phone: Troponin Interp NOT REPORTED [employer] Phone: Troponin T NOT REPORTED <0.03 ng/mL [employer] Phone: Troponin, High Sensitivity 57 ng/L Critically high 0 - 22 ng/L [employer] Phone: Comment on above: High Sensitivity Troponin values cannot be compared with other Troponin methodologies. Patients with high levels of Biotin oral intake (i.e >5mg/day) may have falsely decreased Troponin levels. Samples collected within 8 hours of biotin intake may require additional information for diagnosis. [employer] Phone: Basic Metabolic PanelOrdered By: Manuel Conner on 12-18-2020 Anion gap [Moles/Vol] 14 mmol/L 9 - 17 mmol/L [employer] Phone: Calcium [Mass/Vol] 9.3 mg/dL 8.6 - 10. 4 mg/dL [employer] Phone: Chloride [Moles/Vol] 104 mmol/L 98 - 10 7 mmol/L [employer] Phone: CO2 [Moles/Vol] 22 mmol/L 20 - 31 mmol/L [employer] Phone: Creatinine [Mass/Vol] 4.1 mg/dL High 0.70 - 1.20 mg/dL [employer] Phone: GFR 17 mL/min Low >60 [employer] Phone: GFR Non- 14 mL/min Low >60 [employer] Phone: Glucose [Mass/Vol] 148 mg/dL High 70 - 99 mg/dL [employer] Phone: Potassium [Moles/Vol] 5.2 mmol/L 3.7 - 5.3 mmol/L [employer] Phone: Sodium [Moles/Vol] 140 mmol/L 135 - 144 mmol/L [employer] Phone: Urea nitrogen (BldV) [Mass/Vol] 87 mg/dL High 8 - 23 mg/dL [employer] Phone: Urea nitrogen/Creatinine (Bld) [Mass ratio] 21 High [employer] Phone: Brain Natriuretic PeptideOrd ered By: Manuel Conner on 12-18-2020 BNP Interpretation Pro-BNP Reference Range: [employer] Phone: Comment on above: Rule Out: <300 Pagan Zone: Age <50 300-450 Age 50-75 300-900 Age >75 300-1800 Usually represents mild to moderate HF but other cardiopulmonary causes cannot be ruled out. Rule In: Age <50 >450 Age 50-75 >900 Age >75 >1800 Interpretation and review of laboratory results Abnormal [employer] Phone: Natriuretic peptide B (Bld) [Mass/Vol] 846 pg/mL High <300 [employer] Phone: Comment on above: Pro-BNP results halie ot be compared to BNP results. [employer] Phone: EKG Rhythm StripOrdered By: Unknown Result on 12-18-2020 [employer] Phone: [employer] Phone: Glucose, Whole BloodOrdered By: Manuel Conner on 12-18-2020 Glucose [Mass/Vol] 152 mg/dL High 74 - 100 mg/dL [employer] Phone: Interpretation and review of laboratory results Abnormal [employer] Phone: [employer] Phone: Laboratory - Chemistry and C hemistry - challengeOrdered By: Manuel Conner on 12-18-2020 GFR/1.73 sq M.predicted MDRD (S/P/Bld) [Vol rate/Area] [employer] Phone: Comment on above: Average GFR for 70 o r more years old: 75 mL/min/1.73sq m Chronic Kidney Disease: <60 mL/min/1.73sq m Kidney failure: <15 mL/min/1.73sq m eGFR calculated using average adult body mass. Additional eGFR calculator available at: http://www.inSelly.[employer]olutionTube/multiple_crcl_2012.htm Stage 1: Some kidney damage normal GFR Stage 2: Mild kidney damage GFR 60-89 Stage 3: Moderate kidney damage GFR 30-59 Stage 4: Severe kidney damage GFR 15-29 Stage 5: Severe kidney damage GFR <15 ESRD - chronic treatment by dialysis or transplant No Panel InformationOrdered By: Manuel Conner on 12-18-2020 Interpretation and review of laboratory results Abnormal [employer] Phone: [employer] Phone: TroponinOrdered By: Manuel Conner on 12-18-2020 Troponin Interp NOT REPORTED [employer] Phone: Troponin T NOT REPORTED <0.03 ng/mL [employer] Phone: Troponin, High Sensitivity 71 ng/L Critically high 0 - 22 ng/L [employer] Phone: Comment on above: High Sensitivity Troponin [...] Consider advancement by 5-7 cm, if able. [employer] Phone: EXAMINATION: ONE XRA Y VIEW OF [...] cardiomegaly. Bony thorax is without acute abnormality. [employer] Phone: Roger, Mhpn Incoming R adiant Results From [facility] - 12/18/2020 1:31 PM EDT EXAMINATION: ONE [...] Consider advancement by 5-7 cm, if able. [employer] Phone: [employer] Phone: XR CHEST PORTABLEOrdered By: Mnauel Conner on 12-18-2020 Mild prominence of interstitial markings suggests mild vascular congestion with mild streaky bibasilar atelectasis [employer] Phone: EXAMINATION: ONE XRA Y VIEW OF THE CHEST 12/18/2020 11:18 am COMPARISON: December 17, 2020, chest examination HISTORY: ORDERING SYSTEM PROVIDED HISTORY: Congestion TECHNOLOGIST PROVIDED HISTORY: Congestion FINDINGS: Median sternotomy. Stable cardiomegaly/mild tortuosity of the thoracic aorta Mild streaky bibasilar density. Mild prominence of interstitial markings Possible small right pleural effusion Degenerative changes of the thoracic spine/shoulders [employer] Phone: Roger, Mhpn Incoming R adiant Results From [employer] [facility] - 12/18/2020 11:26 AM EDT EXAMINATION: ONE [...] vascular congestion with mild streaky bibasilar atelectasis [employer] Phone: [employer] Phone: APTTOrdered By: Manuel lew on 12-17-2020 aPTT Coag (Bld) [Time] 22.8 s Low [employer] Phone: Comment on above: IV Heparin Therapy Range: 62.0-94.0 Interpretation and review of laboratory results Abnormal [employer] Phone: [employer] Phone: Blood Gas, VenousOrdered By: Manuel Conner on 12-17-2020 Shilo Test NOT REPORTED [employer] Phone: Carboxyhemoglobin NOT REPORTED 0.0 - 5.0 % [employer] Phone: Comment on above: FIO2 NOT REPORTED [employer] Phone: HCO3 (Bld) [Moles/Vol] 21.9 mmol/L Low 24.0 - 30.0 mmol/L [employer] Phone: Interpretation and review of laboratory results Abnormal [employer] Phone: Methemoglobin NOT REPORTED 0.0 - 1.9 % [employer] Phone: Mode NOT REPORTED [employer] Phone: Negative Base Excess, Angelo 5.7 mmol/L High 0.0 - 2.0 mmol/L [employer] Phone: NOTIFICATION NOT REPORTED [employer] Phone: NOTIFICATION TIME NOT REPORTED [employer] Phone: O2 Device/Flow/% NOT REPORTED [employer] Phone: Oxygen saturation in Blood 31.2 % Low 60.0 - 85.0 % [employer] Phone: Oxyhemoglobin NOT REPORTED 95.0 - 98.0 [...] - 2.0 mmol/L [facility] Work Phone: [phone] PSV NOT REPORTED [facility] Work Phone: Pt Temp 37.0 [facility] Work Phone: Pt. Position NOT REPORTED [facility] Work Phone: Respiratory Rate NOT REPORTED [facility] Work Phone: Sample Site NOT REPORTED [facility] Work Phone: Set Rate NOT REPORTED [facility] Work Phone: Text for Respiratory NOT REPORTED [facility] Work Phone: Total Hb NOT REPORTED 12.0 - 16.0 g/dl [facility] Work Phone: Total Rate NOT REPORTED [facility] Work Phone: VT NOT REPORTED [facility] Work Phone: [facility] Work Phone: Brain Natriuretic PeptideOrd ered By: Manuel Conner on 12-17-2020 BNP Interpretation Pro-BNP Reference Range: [employer] Phone: Comment on above: Rule Out: <300 Pagan Zone: Age <50 300-450 Age 50-75 300-900 Age >75 300-1800 Usually represents mild to moderate HF but other cardiopulmonary causes cannot be ruled out. Rule In: Age <50 >450 Age 50-75 >900 Age >75 >1800 Natriuretic peptide B (Bld) [Mass/Vol] 1428 pg/mL High <300 [employer] Phone: Comment on above: Pro-BNP results halie ot be compared to BNP results. CBC Auto DifferentialOrdered By: Manuel Conner on 12-17-2020 Absolute Eos # 0.03 [employer] Phone: Absolute Immature Granulocyte 0.03 [employer] Phone: Absolute Lymph # 0.96 Low [employer] Phone: Absolute Gladwin # 0.52 [employer] Phone: Basophils (Bld) [#/Vol] 10*3/uL [employer] Phone: Basophils/100 WBC (Bld) 0 % 0 - 2 % [employer] Phone: Differential Type NOT REPORTED [employer] Phone: Eosinophils/100 WBC (Bld) 0 % Low 1 - 4 % [employer] Phone: Hematocrit (Bld) [Volume fraction] 37.2 % Low 40.7 - 50.3 % [employer] Phone: Hemoglobin.gastrointest inal spec 1 Ql (Stl) 11.5 g/dL Low 13.0 - 17.0 g/dL [employer] Phone: Immature granulocytes/100 WBC (Bld) 0 % 0 [employer] Phone: Interpretation and review of laboratory results Abnormal [employer] Phone: Lymphocytes/100 WBC (Bld) 11 % Low 24 - 43 % [employer] Phone: MCH (RBC) [Entitic mass] 28.5 pg 25.2 - 33.5 pg [employer] Phone: MCHC (RBC) [Mass/Vol] 30.9 g/dL 28.4 - 34.8 g/dL [employer] Phone: MCV (RBC) [Entitic vol] 92.3 fL 82.6 - 102.9 fL [employer] Phone: Monocytes/100 WBC (Bld) 6 % 3 - 12 % [employer] Phone: NRBC Automated 0.0 0.0 per 100 WBC [employer] Phone: Platelet distribution width (Bld) [Ratio] 13.0 % 11.8 - 14.4 % [employer] Phone: Platelet Estimate NOT REPORTED [employer] Phone: Platelet mean volume (Bld) [Entitic vol] NOT REPORTED 8.1 - 13.5 fL [employer] Phone: Platelets (Bld) [#/Vol] See Reflexed IPF Result [employer] Phone: RBC (Bld) [#/Vol] 4.03 10*6/uL Low 4.21 - 5.77 m/uL [employer] Phone: [phone] RBC (Bld) [#/Vol] NOT REPORTED [employer] Phone: Segmented neutrophils/100 WBC (Bld) 82 % High 36 - 65 % [employer] Phone: Segs Absolute 6.94 [employer] Phone: [phone] WBC (Bld) [#/Vol] 8.5 10*3/uL [employer] Phone: WBC (Bld) [#/Vol] NOT REPORTED [employer] Phone: [employer] Phone: COVID-19, RapidOrdered By: Agnieszka yaritza Conner on 12-17-2020 SARS-CoV-2 (COVID-19) RNA JOYCE+probe Ql (Unsp spec) Not detected Not Detected [employer] Phone: Comment on above: Rapid NAAT: The [...] management decisions. Fact sheet for Healthcare Providers: https://www.fda.gov/media/901727/download Fact sheet for Patients: https://www.fda.gov/media/087046/download Methodology: Isothermal Nucleic Acid Amplification Specimen Description .NASOPHARYNGEAL SWAB [employer] Phone: [employer] Phone: CT HEAD WO CONTRASTOrdered B y: Manuel Conner on 12-17-2020 No acute intracrania l abnormality. 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 Minimal parenchymal volume loss. Minimal chronic microvascular disease. [employer] Phone: EXAMINATION: CT OF T HE HEAD [...] of the visualized skull or soft tissues. [employer] Phone: Roger, pn Incoming R adiant Results From [employer] - 12/17/2020 9:36 AM EDT EXAMINATION: CT [...] parenchymal volume loss. Minimal chronic microvascular disease. [employer] Phone: [employer] Phone: Comprehensive Metabolic Pane l w/ Reflex to MGOrdered By: Manuel Conner on 12-17-2020 Albumin [Mass/Vol] 4 g/dL 3.5 - 5.2 g/dL [employer] Phone: Albumin/Globulin [Mass ratio] 1.3 {ratio} [employer] Phone: ALP (Bld) [Catalytic activity/Vol] 66 U/L 40 - 129 U/L [employer] Phone: ALT [Catalytic activity/Vol] 12 U/L 5 - 41 U/L [employer] Phone: Anion gap [Moles/Vol] 19 mmol/L High 9 - 17 mmol/L [employer] Phone: AST [Catalytic activity/Vol] 18 U/L <40 [employer] Phone: Bilirubin [Mass/Vol] 0.16 mg/dL Low 0.3 - 1 .2 mg/dL [employer] Phone: Calcium [Mass/Vol] 8.8 mg/dL 8.6 - 10. 4 mg/dL [employer] Phone: Chloride [Moles/Vol] 102 mmol/L 98 - 10 7 mmol/L [employer] Phone: CO2 [Moles/Vol] 19 mmol/L Low 20 - 31 mmol/L [employer] Phone: Creatinine [Mass/Vol] 6.59 mg/dL Critically high 0.7 0 - 1.20 mg/dL [employer] Phone: Free PSA/Total PSA [Mass fraction] 7.0 g/dL 6.4 - 8.3 g/dL [employer] Phone: GFR 10 mL/min Low >60 [employer] Work Phone: GFR Non- 8 mL/min Low >60 [employer] Phone: Glucose [Mass/Vol] 197 mg/dL High 70 - 99 mg/dL [employer] Phone: Potassium [Moles/Vol] 4.6 mmol/L 3.7 - 5.3 mmol/L [employer] Phone: Sodium [Moles/Vol] 140 mmol/L 135 - 144 mmol/L [employer] Phone: Urea nitrogen (BldV) [Mass/Vol] 96 mg/dL Critically high 8 - 23 mg/dL [employer] Phone: Urea nitrogen/Creatinine (Bld) [Mass ratio] 15 [employer] Phone: EKG 12 LeadOrdered By: Kathy Conner on 12-17-2020 Atrial Rate 85 BPM [employer] Phone: P [place] -15 degrees [employer] Phone: P-R Interval 224 ms [employer] Phone: Q-T Interval 414 ms [employer] Phone: QRS Duration 120 ms [employer] Phone: QTc Calculation (Bazett) 492 ms [employer] Phone: R [place] 99 degrees [employer] Phone: T [place] 44 degrees [employer] Phone: Ventricular Rate 85 BPM [employer] Phone: Sinus rhythm with 1s t degree A-V block Rightward axis Septal infarct , age undetermined Abnormal ECG No previous ECGs available Confirmed by JARON BERNARD ([id number]) on 12/17/2020 11:51:30 PM [employer] Phone: Roger, Mhpn Incoming E kg Results From [employer] [facility] - 12/17/2020 11:51 PM EDT Sinus rhythm with 1st degree A-V block Rightward axis Septal infarct , age undetermined Abnormal ECG No previous ECGs available Confirmed by JARON BERNARD ([id number]) on 12/17/2020 11:51:30 PM [employer] Phone: [employer] Phone: Immature Platelet FractionOr dered By: Manuel Conner on 12-17-2020 Interpretation and review of laboratory results Abnormal [employer] Phone: Platelet, Fluorescence 110 Low [facility] [employer] Phone: Platelet, Immature Fraction 4.6 % 1.1 - 10.3 % [employer] Phone: [employer] Phone: Laboratory - Chemistry and C hemistry - challengeOrdered By: Manuel Conner on 12-17-2020 GFR/1.73 sq M.predicted MDRD (S/P/Bld) [Vol rate/Area] [employer] Phone: Comment on above: Average GFR for 70 o r more years old: 75 mL/min/1.73sq m Chronic Kidney Disease: <60 mL/min/1.73sq m Kidney failure: <15 mL/min/1.73sq m eGFR calculated using average adult body mass. Additional eGFR calculator available at: http://www.inSelly.ResolutionTube/multiple_crcl_2012.htm Stage 1: Some kidney damage normal GFR Stage 2: Mild kidney damage GFR 60-89 Stage 3: Moderate kidney damage GFR 30-59 Stage 4: Severe kidney damage GFR 15-29 Stage 5: Severe kidney damage GFR <15 ESRD - chronic treatment by dialysis or transplant Lactic AcidOrdered By: Kathy Conner on 12-17-2020 Lactate [Moles/Vol] 1.3 mmol/L 0.5 - 2. 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 Flow artifact in the proximal M1 segments of the bilateral MCAs and intracranial right ICA. The bilateral intracranial vertebral arteries are not imaged. [employer] Phone: EXAMINATION: MRA OF THE HEAD WITHOUT CONTRAST 12/17/2020 1:32 pm TECHNIQUE: MRA of the head was performed utilizing [id number]-[id number] imaging with MIP images. No intravenous contrast [...] cerebral arteries. No evidence of intracranial aneurysm. [employer] Phone: Roger, Mhpn Incoming R adiant Results From [employer] - 12/17/2020 2:02 PM EDT EXAMINATION: MRA OF THE HEAD WITHOUT CONTRAST 12/17/2020 1:32 pm TECHNIQUE: MRA of the head was performed utilizing [id number] imaging with MIP images. No intravenous contrast [...] bilateral intracranial vertebral arteries are not imaged. 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 [employer] Phone: No acute intracrania l abnormality. 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 Mild parenchymal volume loss. Mild chronic microvascular disease. 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 [employer] Phone: EXAMINATION: MRI OF THE BRAIN WITHOUT [...] The soft tissues demonstrate no acute abnormality. [employer] Phone: Roger, [facility] Incoming R adiant Results From [employer] - 12/17/2020 1:55 PM EDT EXAMINATION: MRI [...] internal carotid artery, likely related to occlusion. [employer] Work Phone: [employer] Work Phone: Microscopic UrinalysisOrdere d By: Manuel Conner on 12-17-2020 - [employer] Work Phone: [phone] Amorphous, UA NOT REPORTED None [employer] Work Phone: Bacteria, UA NOT REPORTED None [employer] Work Phone: Casts UA NOT REPORTED /LPF [facility] Phone: Crystals, UA NOT REPORTED None /HPF [employer] Work Phone: Epithelial Cells UA 0 TO 2 [employer] Work Phone: Mucus, UA NOT REPORTED None [employer] Work Phone: Other Observations UA NOT REPORTED NOT REQ. [facility] Work Phone: RBC, UA 2 TO 5 [employer] Work Phone: Renal Epithelial, UA NOT REPORTED 0 /HPF [employer] Work Phone: Trichomonas, UA NOT REPORTED None [employer] Work Phone: WBC, UA 0 TO 2 [facility] Work Phone: Yeast, UA NOT REPORTED None [employer] Work Phone: [facility] Work Phone: No Panel InformationOrdered By: Manuel Conner on 12-17-2020 Interpretation and review of laboratory results Abnormal [employer] Work Phone: [employer] Work Phone: Interpretation and review of laboratory results Abnormal [employer] Work Phone: [employer] Work Phone: Protime-INROrdered By: Kathy Conner on 12-17-2020 INR Coag (Bld) [Relative time] 1.1 {INR} [employer] Phone: Comment on above: Non-therapeutic Range: INR = 0.9-1.2 Therapeutic Range: Moderate Anticoagulant Intensity: INR = 2.0-3.0 High Anticoagulant Intensity: INR = 2.5-3.5 PT Coag (PPP) [Time] 13.7 s [employer] Phone: [employer] Phone: TroponinOrdered By: Manuel Conner on 12-17-2020 Interpretation and review of laboratory results Abnormal [employer] Phone: Troponin Interp NOT REPORTED [employer] Phone: Troponin T NOT REPORTED <0.03 ng/mL [employer] Phone: Troponin, High Sensitivity 79 ng/L Critically high 0 - 22 ng/L [employer] Phone: Comment on above: High Sensitivity Troponin values cannot be compared with other Troponin methodologies. Patients with high levels of Biotin oral intake (i.e >5mg/day) may have falsely decreased Troponin levels. Samples collected within 8 hours of biotin intake may require additional information for diagnosis. [employer] Phone: Troponin Interp NOT REPORTED [employer] Phone: Troponin T NOT REPORTED <0.03 ng/mL [employer] Phone: Troponin, High Sensitivity 85 ng/L Critically high 0 - 22 ng/L [employer] Phone: Comment on above: High Sensitivity Troponin values cannot be compared with other Troponin methodologies. Patients with high levels of Biotin oral intake (i.e >5mg/day) may have falsely decreased Troponin levels. Samples collected within 8 hours of biotin intake may require additional information for diagnosis. Urinalysis, reflex to micros copicOrdered By: Manuel Conner on 12-17-2020 Bilirubin Urine Negative NEGATIVE [employer] Work Phone: Color, UA Yellow Yellow [employer] Work Phone: Glucose, Ur Negative NEGATIVE [employer] Work Phone: Interpretation and review of laboratory results Abnormal [employer] Work Phone: Ketones Ql (U) Negative NEGATIVE [employer] Work Phone: Leukocyte esterase Test strip Ql (U) Negative NEGATIVE [employer] Work Phone: Nitrite, Urine Negative NEGATIVE [employer] Work Phone: pH, UA 5.5 [employer] Work Phone: Protein, UA TRACE Abnormal NEGATIVE [employer] Phone: Specific Codorus, UA 1.025 High [employer] Work Phone: Turbidity UA Clear Clear [employer] Work Phone: Urinalysis Comments NOT REPORTED [facility] [employer] Work Phone: Urine Hgb TRACE Abnormal NEGATIVE [employer] Phone: Urobilinogen, Urine Normal Normal [employer] Phone: [employer] Work Phone: XR CHEST PORTABLEOrdered By: Manuel Conner on 12-17-2020 Mild streaky bibasil ar atelectasis with possible small bilateral pleural effusions [employer] Phone: EXAMINATION: ONE XRA Y VIEW OF THE CHEST 12/17/2020 9:30 am COMPARISON: None. HISTORY: ORDERING SYSTEM PROVIDED HISTORY: Congestion TECHNOLOGIST PROVIDED HISTORY: Congestion FINDINGS: Median sternotomy. Normal cardiopericardial silhouette Low volume lungs. Mild streaky bibasilar densities, possible possible small bilateral pleural effusions. Clear upper lungs Degenerative changes of the thoracic spine/shoulders [employer] Phone: Roger, Mhpn Incoming R adiant Results From [employer] - 12/17/2020 9:46 AM EDT EXAMINATION: ONE [...] atelectasis with possible small bilateral pleural effusions [employer] Phone: [employer] Phone: Vital Signs Date Time Vital Sign Value Performing Clinician Facility 07-03-2021 15:01-0400 Body temperature 99.32 [degF] Michael Carballo Other Phone: [facility] 07-03-2021 15:01-0400 Diastolic blood pressure 66 mm[Hg] Michael Carballo Other Phone: [facility] 07-03-2021 15:01-0400 Heart rate 80 /min Michael Carballo Other Phone: [facility] 07-03-2021 15:01-0400 Respiratory rate 22 /min Michael Carballo Other Phone: [facility] 07-03-2021 15:01-0400 SaO2% (BldA) [Mass fraction] 97 % Michael Carballo Other Phone: [facility] 07-03-2021 15:01-0400 Systolic blood pressure 127 mm[Hg] Michael Carballo Other Phone: [facility] 07-03-2021 06:30-0400 Body weight 100.5 kg Michael Carballo Other Phone: [facility] 06-27-2021 13:00-0400 Diastolic blood pressure 69 mm[Hg] MD Michael Carballo Work Phone: [facility] 06-27-2021 13:00-0400 Heart rate 87 /min MD Michael Carballo Work Phone: [facility] 06-27-2021 13:00-0400 Respiratory rate 17 /min MD Michael Carballo Work Phone: [facility] 06-27-2021 13:00-0400 SaO2% (BldA) [Mass fraction] 94 % MD Michael Carballo Work Phone: [facility] 06-27-2021 13:00-0400 Systolic blood pressure 153 mm[Hg] MD Michael Carballo Work Phone: [facility] 06-27-2021 08:00-0400 Body temperature 97.9 [degF] MD Michael Carballo Work Phone: [facility] 06-27-2021 05:44-0400 Body weight 106.5 kg MD Michael Carballo Work Phone: [facility] 06-26-2021 14:12-0400 Body height 182.88 cm MD Michael Carballo Work Phone: [facility] 06-26-2021 00:24-0400 Body height 182.88 cm MD Michael Carballo Work Phone: [facility] 06-26-2021 00:24-0400 Body mass index (BMI) [Ratio] 32.8 kg/m2 MD Michael Carballo Work Phone: [facility] 06-26-2021 00:24-0400 Body temperature 97.7 [degF] MD Michael Carballo Work Phone: [facility] 06-26-2021 00:24-0400 Body weight 109.9 kg MD Michael Carballo Work Phone: [facility] 06-26-2021 00:24-0400 Diastolic blood pressure 100 mm[Hg] MD Michael aCrballo Work Phone: [facility] 06-26-2021 00:24-0400 Heart rate 88 /min MD Michael Carballo Work Phone: [facility] 06-26-2021 00:24-0400 Respiratory rate 18 /min MD Michael Carballo Work Phone: [facility] 06-26-2021 00:24-0400 SaO2% (BldA) [Mass fraction] 96 % MD Michael Carballo Work Phone: [facility] 06-26-2021 00:24-0400 Systolic blood pressure 221 mm[Hg] MD Michael Carballo Work Phone: [facility] 12-19-2020 20:01-0400 Diastolic blood pressure 64 mm[Hg] Manuel Conner MD Work Phone: [employer] Work Phone: 12-19-2020 20:01-0400 Systolic blood pressure 182 mm[Hg] Manuel Conner MD Work Phone: [employer] Work Phone: 12-19-2020 19:00-0400 Heart rate 75 /min Manuel Conner MD Work Phone: [employer] Work Phone: 12-19-2020 19:00-0400 Respiratory rate 23 /min Manuel Conner MD Work Phone: [employer] Work Phone: 12-19-2020 19:00-0400 SaO2% (BldA) [Mass fraction] 94 % Manuel Conner MD Work Phone: [employer] Work Phone: 12-18-2020 06:30-0400 Body temperature 98.29 [degF] Manuel Conner MD Work Phone: [employer] Work Phone: Encounters Encounter Date Encounter Type Care Provider Facility Start: 09-28-2022 AUDIT Michael Carballo Work Phone: ZA-Snzuuvnuwo-Zwnngatn SJW 260 DO Work Phone: Start: 07-24-2022 End: 07-24-[address] MICHAEL CARBALLO . Facility: Start: 07-15-2022 End: 07-15-[address] MICHAEL CARBALLO . Facility: Start: 07-13-2022 Patient encounter procedure Michael Carballo Work Phone: DO-Btromutrmg-SKE [facility] [address] Work Phone: Start: 07-13-2022 Phys/qhp telephone evaluation 11-20 min Michael Carballo Work Phone: UO-Vyamiglmhw-XAM [facility] [address] Work Phone: Start: 07-13-2022 ambulatory MD SCOUT ROMO Facility:[facility] Start: 07-13-2022 End: 07-13-[address] MICHAEL CARBALLO . Facility: Start: 07-09-2022 AUDIT Michael Carballo Work Phone: GY-Biqcqncgsm-NDX [facility] [address] Work Phone: Start: 06-08-2022 ambulatory Facility: [facility] Start: 06-05-2022 End: 06-05-[address] MICHAEL CARBALLO . Facility: Start: 06-04-2022 End: 06-04-[address] MICHAEL CARBALLO . Facility: Start: 04-14-2022 End: 04-15-2022 ambulatory DONNA [facility] Start: 04-14-2022 End: 04-14-2022 Subsequent hospital visit by physician Michael Carballo Work Phone: [facility] Start: 10-30-2021 End: 10-31-2021 ambulatory Manfred Wilson Facility:[facility] Start: 10-28-2021 End: 10-28-[address] MICHAEL CARBALLO . Facility: Start: 10-15-2021 Patient encounter procedure Michael Carballo Work Phone: IZ-Gdhtqxjoue-XZN [facility] [address] [place] Work Phone: Start: 10-15-2021 ambulatory DO FELICIA ASTORGA Facility:[facility] Start: 08-05-2021 End: 08-06-[address] MICHAEL CARBALLO . Facility: Start: 07-16-2021 Office outpatient vi sit 25 minutes Michael Carballo Work Phone: MA-Vlogdxoakd-BOY [facility] [address] [place] Work Phone: Start: 07-16-2021 Patient encounter procedure Michael Carballo Work Phone: ME-Bitybtudee-JXA [facility] [address] [place] Work Phone: Start: 06-27-2021 End: 07-03-2021 Evaluation and management of [facility] [id number] Rm [id number] Start: 06-25-2021 End: 06-27-2021 Evaluation and management of inpatient MD Michael Carballo Work Phone: [facility] Start: 06-25-2021 Patient encounter procedure Michael Carballo Work Phone: ZM-Tzdtbrlwwh-DGK [facility] [address] [place] Work Phone: Start: 06-24-2021 End: 06-24-2021 Patient encounter procedure MD Michael Carballo Work Phone: [facility] Start: 05-28-2021 AUDIT Michael Carballo Work Phone: YK-Ramhgxihwq-NMK [facility] [address] [place] Work Phone: Start: 05-27-2021 End: 05-27-2021 Patient encounter procedure MD Michael Carballo Work Phone: [facility] Start: 01-01-2021 Patient encounter procedure Michael Carballo Work Phone: CF-Ljimvmonwl-WEW [facility] [address] [place] Work Phone: Start: 01-01-2021 WANG, Provider : Rizwan,Felicia, Status: Pen, Time: 2:20 PM Michael Carballo Work Phone: SW-Moyjyipcqq-Jgdrnade [facility] 260 DO Work Phone: Start: 12-31-2020 AUDIT Michael Carballo Work Phone: WJ-Epnlgmccst-Hixwqdcd SJ 260 DO Work Phone: Start: 12-17-2020 End: 12-19-2020 Emergency department patient visit Manuel Conner MD Work Phone: [facility] ED Comment on above: [place] coma scale t otal score 13-15, at hospital admission (Primary Dx); Acute kidney injury (HCC); Heart replaced by transplant (HCC); Confusion Start: 11-21-2020 AUDIT Michael Carballo Work Phone: NI-Hrkpmwrelr-QFZ [facility] [address] [place] Work Phone: Start: 10-31-2020 AUDIT Michael Carballo Work Phone: [facility] Work Phone: Procedures Date Procedure Procedure Detail [...] heart recipient Heart repla vaibhav by transplant ([facility]) Manuel Conner MD Work Phone: H/O: [...] Montse Villanueva, Status: Pen, Time: 2:00 PM YH-Vhckxkgykp-FPN [facility] [address] Work Phone: Start: 07-13-2022 WANG, Provider : Scout Romo, Status: Pen, Time: 1:40 PM VIRFUCORI, Provider: Scout Romo, Status: Pen, Time: 1:40 PM TA-Jhfacatvaw-UZY [facility] [address] Work Phone: Start: 04-01-2022 WANG, Provider : Felicia Astorga, Status: Pen, Time: 1:00 PM WANG, Provider: Felicia Astorga, Status: Pen, Time: 1:00 PM HY-Arispilcjn-DFK [facility] [address] [place] Work Phone: Start: 12-19-2021 Creatinine measurement Creatinine [facility] Work Phone: Start: 12-19-2021 Potassium monitoring Potassium monit nyla [employer] Phone: Start: 10-20-2021 Influenza vaccination Flu vaccine (# 1) [facility] Start: 07-16-2021 Patient encounter procedure [facility] Start: 07-03-2021 End: 07-04-2022 Insulin Glargine (Lantus) Injectable Subcutaneous Once ; DOSE = 12 unit(s) SubCutaneous At BedtimeNotes from Pharmacy: [facility] Start: 03-Jul-2021 End: 03-Jul-2022 Ordered: 03-Jul-2021 Magy Galeas Intent [facility] Start: 07-01-2021 End: 07-02-2022 [facility] Comment on above: IF patient HAS a [...] End: 30-Jun-2022 Ordered: 30-Jun-2021 Jihan Storm Intent [facility] Start: 06-27-2021 End: 06-28-2022 Sodium Chloride 0.9% Injectable Flush Peripheral Line ; via Peripheral LineVolume = 10 mL IntraVenous Flush Every 8 Hours and as Needed Start: 27-Jun-2021 End: 27-Jun-2022 Ordered: 26-Jun-2021 Magy Galeas Intent [facility] Start: 06-26-2021 Duplex scan of upper limb arteries US arterial duplex UE RT [facility] Start: 12-17-2020 Annual Wellness Visi t (AWV) Annual Wellness Visit (AWV) [employer] Start: 11-20-2020 Influenza vaccination Flu vaccine (# 1) [employer] Work Phone: Start: 07-16-2020 COVID-19 Vaccine (3 - Pfizer risk 3-dose series) COVID-19 Vaccine (3 - Pfizer risk 3-dose series) [employer] Work Phone: Start: 07-16-2020 COVID-19 Vaccine (3 - Pfizer risk series) COVID-19 Vaccine (3 - Pfizer risk series) [employer] Start: 10-01-2016 Pneumococcal 65+ yrs at Risk Vaccine (2 of 2 - PCV13) Pneumococcal 65+ yrs at Risk Vaccine (2 of 2 - PCV13) [employer] Phone: Start: 10-10-1993 Shingles Vaccine (1 of 2) Shingles Vaccine (1 of 2) [employer] Work Phone: Start: 10-10-1962 DTaP/Tdap/Td vaccine (1 - Tdap) DTaP/Tdap/Td vaccine (1 - Tdap) [employer] Start: 10-10-1962 Shingles vaccine (1 of 2) Shingles vaccine (1 of 2) [employer] Start: 10-10-1961 Hepatitis C screening Hepatitis C sc reen [facility] [employer] Start: 1955 Depression Screen Depression Screen [email or web address] Start: 10-10-1953 Lipid panel [facility] Start: 1943 Hepatitis C screening Hepatitis C sc re[facility] Work Phone: Calcium [Mass/volume ] in Serum or Plasma [facility] Work Phone: Carbon dioxide, tota l [Moles/volume] in Serum or Plasma [facility] Work Phone: Chloride [Moles/volu me] in Serum or Plasma [facility] Work Phone: Creatinine and Glomerular filtration rate.predicted panel - Serum, Plasma or Blood [facility] Work Phone: Culture, Blood [facility] Work Phone: Culture, Wound Culture, Wound Microbiology Routine 04/14/2022 3:25 PM EST [facility] Work Phone: Glucose [Mass/volume ] in Serum or Plasma [facility] Work Phone: Goals of care, counseling/discussion [facility] Measurement of renal function [facility] Work Phone: Potassium [Moles/volume] in Serum or Plasma [facility] Work Phone: Sodium [Moles/volume ] in Serum or Plasma [facility] Work Phone: Tacrolimus [Mass/volume] in Blood [facility] Work Phone: End: 12-18-2020 Tacrolimus Level [facility] Work Phone: Comment on above: One Time for 1 Occur rences starting 12/18/2020 until 12/18/2020 End: 12-19-2020 Tacrolimus Level Tacrolimus Level Lab Routine One Time for 1 Occurrences starting 12/19/2020 until 12/19/2020 [employer] Work Phone: Comment on above: One Time for 1 Occur rences starting 12/19/2020 until 12/19/2020 Tacrolimus Level [facility] Work Phone: Urea nitrogen [Mass/volume] in Serum or Plasma [facility] Work Phone: Immunizations Immunization Date Immunization Notes Care Provider Haven de leon 03-21-2021 Pfizer-BioNTech COVI D-19 Vacc 30 MCG/0.3ML Intramuscular Suspension Michael Carballo Work Phone: TA-Hivmphdmuj-JDU [facility] [address] [place] Work Phone: 06-18-2020 Pfizer-BioNTech COVI D-19 Vacc 30 MCG/0.3ML Intramuscular Suspension Michael Candelario Carballo Work Phone: [facility] Work Phone: 05-27-2020 Pfizer-BioNTech COVI D-19 Vacc 30 MCG/0.3ML Intramuscular Suspension Michael E Carballo Work Phone: [facility] Work Phone: 12-29-2019 Seasonal trivalent influenza vaccine, adjuvanted, preservative free Michael Palomino Carballo Work Phone: [facility] Work Phone: 12-22-2017 Seasonal trivalent influenza vaccine, adjuvanted, preservative free Michael Palomino Carballo Work Phone: [facility] Work Phone: 12-28-2016 Seasonal trivalent influenza vaccine, adjuvanted, preservative free Michael Palomino Carballo Work Phone: [facility] Work Phone: 12-24-2015 influenza, high dose seasonal, preservative-free Michael Palomino Carballo Work Phone: [facility] Work Phone: 10-02-2015 influenza, seasonal, injectable Michael Palomino Carballo Work Phone: [facility] Work Phone: 10-02-2015 pneumococcal polysaccharide vaccine, 23 valent Michael Palomino Carballo Work Phone: [facility] Work Phone: 01-09-2015 influenza, injectabl e, quadrivalent, contains preservative Michael Palomino Carballo Work Phone: [facility] Work Phone: 01-03-2013 influenza, seasonal, injectable Michael Palomino Carballo Work Phone: [facility] Work Phone: 01-07-2009 influenza virus vacc ine, whole virus Michael Christianight Work Phone: [facility] Work Phone: 01-20-2005 influenza virus vacc ine, whole virus Michael Palomino Carballo Work Phone: [facility] Work Phone: Payers Date Payer Category Payer Self-pay [id number] 1961 Medicaid [id number] 1961 Medicare [id number] 1961 Medicare [id number] 1961 Private Health Insurance [id number] 1943 Unknown [id number] 2.16.8 [id number] 1943 Unknown [id number] 2.16.84 [id number] 1943 Unknown [id number] 2.16.84 [id number] 1943 Unknown [id number] 2.16.84 [id number] 1943 Unknown [id number] 2.16.84 [id number] 1943 Unknown [id number] 2.16.84 [id number] 1943 Unknown [id number] 2.16.84 [id number] 1943 Unknown [id number] 2.16.84 [id number] 1943 Unknown [id number] 2.16. [id number] 1943 Unknown [id number] 2.16. [id number] Unknown Unknown [id number] 2.16.8 [id number] Social History Date Type Detail Facility Former smoker Former smoker [employer] Work Phone: Start: 12-17-2020 Tobacco smoking stat us [facility] Unknown if ever smoked [employer] Work Phone: Start: 1945 Sex Assigned At Not on file [employer] Work Phone: Exposure to SARS-CoV -2 (event) Unable to assess [employer] Start: 12-13-2020 [facility] Start: 1945 Sex Assigned At Male F [facility] Start: 06-26-2021 End: 06-26-2021 Tobacco smoking status NHIS Ex-smoker (finding) [facility] End: 03-22-1996 History of tobacco use [facility] Work Phone: Goals Date Patient Goal Desired Activity /State Functional Status Date Assessment Result Facility 06-27-2021 Functional status Patient at [facility] Work Phone: Functional observable [facility] Mental Status Date Assessment Result Facility 06-30-2021 Cognitive functi ons [id number] [facility] 06-27-2021 Cognitive function Cognitive Sta tus Patient at [facility] Work Phone: Clinical Notes 07-05-2000 to 07-03-2021 <item><item><item><item><item><item><item><item><item> Note Date & Type Note Facility 07-03-2021 Hospital Discharge instructions Activity:activity with assistance. May shower.Labs 1 (Modify Template):Lab Test(s): Basic Metabolic Panel, CBC, Tacrolimus levelDate To Be Drawn: 07/07/2021all Results To: Dr. Felicia Moore Results To: [id number] Orders:Blood Glucose Monitoring: ACHSAdditional Instructions: Use of [...] Uncontrolled diabetesCall to Schedule in: 2 weeksLocation[facility]: [facility] Appointment 2:Physician/Dept/Service: Dr. Felicia Astorga / Heart failure and transplantReason for Referral: hospital follow-upLocation: [facility] [address]Comments: Our office will call you to set up an appointment either in person or virtually. [facility] 06-27-2021 Discharge summary Note Date/Time June 27, 2021 10:32am [facility] [address] [place] [address] Discharge Summary Signed Patient: Oliverio Escobedo MR#: [id number] : 1945 Acct:[id number] Age/Sex: 75 / M Adm Date: 2 Loc: Room: [address] [place] [address]: Yoshi Hernandez MD Copies to: MD Justa OlveraUNC [facility]TONSHELLY Howard Providers Date of Discharge: 06/27/21 Discharging [...] 1 tab PO BID RF: 0 omega 9-sqs-rnm-fish oil [Fish Oil] 1,000 mg (120 mg-180 [...] signed by Yoshi Hernandez MD> 06/27/21 1032 [facility] Work Phone: 1(516) 849-559904-08-2022 Progress note Author Bonilla Ortiz [facility] June 27, 2021 10:27am Note Date/Time June 27, 2021 10:2 7am [facility] [address] [place] [address] Cardiology Progress Note Signed Patient: Oliverio Escobedo MR#: [id number] : 1945 Acct:[id number] Age/Sex: 75 / M Adm Date: 2 Loc: 3T Room: [address] [place] [address] Type : ADM INOo Attending Dr: oYshi Hernandez MD Copies to: ~ Date of Service: 06/27/2021 Subjective Principal diagnosis: Edema w history of orthotopic heart transplant Interval history: Mr. Escobedo is a 75 year old male with known history of orthotopic heart transplantation in 2000 done at [facility] who was admitted to the inpatient hospitalist service last night after presenting from the [facility] with complaints of increasing swelling in both legs and the right arm for several days. The patient is resting comfortably this morning. He did diurese gently yesterday. He currently has no cardiac complaints. His breathing feels comfortable lying flat at rest. Swelling in both feet and calves is still present. NB: The patient has been accepted by the transplant service at [facility]. At this point we are awaiting [...] Agree with transfer to transplant service at [facility] for further management. Plan Thank you very much for this kind consultation and for allowing me to participate in the care of this very pleasant patient. Time spent with patient Time Spent With Patient (min): 20 Documented By: Bonilla Ortiz MD 06/27/21 1024 Signed By: <Electronically signed by Bonilla Ortiz MD> 06/27/21 1027 [facility] Work Phone: 1(351) 581-714404-07-2022 Progress note Author Yoshi Wu [facility] June 26, 2021 6:27pm Note Date/Time June 26, 2021 6:27 pm [facility] [address] [place] [address] Hospitalist Progress Note Signed Patient: Oliverio Escobedo MR#: [id number] : 1945 Acct:[id number] Age/Sex: 75 / M Adm Date: 2 Loc: Room: [address] [place] [address] Type : ADM INOo Attending Dr: Yoshi [...] Oil 1,000 mg 06/26/21 09:00 06/26/21 09:01 [place]-3/Fish Oil 1,000 Mg Capsule PO 06/26/22 08:59 [...] <Electronically signed by Yoshi Hernandez MD> 06/26/21 682 [facility] Work Phone: 1(309) 837-511604-07-2022 Consult note Author Bonilla Ortiz [facility] June 26, 2021 2:26pm Note Date/Time June 26, 2021 2:23 pm [facility] [address] [place] [address] Cardiology Consult Note Signed Patient: Oliverio Escobedo MR#: [id number] : 1945 Acct:[id number] Age/Sex: 75 / M Adm Date: 2 Loc: Room: [address] [place] [address] Type : ADM INOo Attending Dr: Yoshi Hernandez MD Copies to: MD Manfred Olvera([facility]) DO Bonilla Wilson MD~ Cardiology HPI History of Present Illness Consult Date: 06/26/21 Reason for Consult: Bilateral lower extremity swelling Remote history of orthotopic heart transplantation HPI: Mr. Escobedo is a 75 year old male with known history of orthotopic heart transplantation in 2000 done at [facility] who was admitted to the inpatient hospitalist service last night after presenting from the [facility] with complaints of increasing swelling [...] the results were sent to his transplant sociology faculty member in [place]. She doesnot know the results. On my evaluation the patient was undergoing bedside transthoracic echocardiography. Preliminary interpretation of the study shows normal resting left ventricular regional wall motion and systolic function. Ejection fraction appears greater than 55%. There is no notable pericardial or pleural effusion. There is no notable/significant valvular heart disease noted. By report the patient's transplant service at [facility] has been contacted and [...] PO BID 02/02/17 [History Confirmed 06/25/21] omega 8-eqv-ony-fish oil 1,000 mg (120 mg-180 mg) capsule [...] x10E3/uL Lymph # (Auto) 1.0 (1.00-4.8) x10E3/uL [place] # (Auto) 0.5 (0.0-0.8) x10E3/uL Eos # [...] Agree with transfer to transplant service at [facility] for further management. Code(s): Z94.1 - Heart transplant status Plan Thank you very much for this kind consultation and for allowing me to participate in the care of this very pleasant patient. Documented By: Bonilla Ortiz MD 06/26/21 1415 Signed By: <Electronically signed by Bonilla Ortiz MD> 06/26/21 1426 [facility] Work Phone: 1(885) 707-573404-07-2022 History and physical note Author Omid Myrick [facility] June 26, 2021 7:44am Note Date/Time June 26, 2021 12:1 6am [facility] [address] [place] [address] Hospitalist H&P Signed Patient: Oliverio Escobedo MR#: [id number] : 1945 Acct:[id number] Age/Sex: 75 / M Adm Date: 2 Loc: 3T Room: [address] [place] [address] Type : ADM INOo Attending Dr: Yoshi Hernandez MD Copies to: MD Manfred Olvera([facility]) DO Audra Wilson APRN Marwan Wassouf, MD~ [...] [facility] but were unable. Patient is hard of [...] PO BID 02/02/17 [History Confirmed 06/25/21] omega 4-zcj-ihf-fish oil 1,000 mg (120 mg-180 mg) capsule [...] Lymph % (Auto) 12.9 % (.) 06/25/21: [place] % (Auto) 7.3 % (.) 06/25/21: Eos % (Auto) 4.6 % (.) 06/25/21: Baso % (Auto) 0.6 % (.) 06/25/21: Neut # (Auto) 5.6 x10E3/uL (1.8-7.7) 06/25/21: Lymph # (Auto) 1.0 x10E3/uL (1.00-4.8) 06/25/21: Gladwin # (Auto) 0.5 x10E3/uL (0.0-0.8) 06/25/21: Eos [...] MD Documented By: Audra Quinteros APRN 06/25/21 8045 Signed By: <Electronically signed by GABBIE Quinteros> 06/26/21 0057 <Electronically signed by Omid Myrick MD> 06/26/21 4844 [facility] Work Phone: 1(184) 884-740809-30-2021 Evaluation note* Diagnosis [place] coma scale total score 13-15, at hospital admission- Primary Acute kidney injury (HCC) Acute kidney failure, unspecified Heart replaced by transplant (HCC) Heart replaced by transplant Confusion Unspecified psychosis [facility] Work Phone: 1(837) 970-379309-30-2021 History of Present illness Narrative* 74 yo [...] trazodone, trazodone and aripirazole. Discharged back to [facility] with 2x/week home trips. * Immunosuppression: MMF 250 mg BID, tacrolimus 1.5 mg BID (FK 5.4 on 12/24/20, goal 5-8) * Rejection Hx/DSAs: None documented * Last echo: 12/20/20 VW-Hioivimmhp-BHK Heather [place] [address] [place] Work Phone: 1(311) [phone] History of Present illness Narrative* Liliya Baker RN - 12/17/2020 10:31 AM EDT Spoke with nurse from [facility] at this time. They will fax lab work to us from [facility]. documented in this [facility] Work Phone: [phone]) [phone] History of Present illness Narrative* Mr. Escobedo [...] September 2021. He continues to live in longterm. He has started Zoloft for depression. 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 Needs assistance with transfers. He has not had any new doctors appointmetns. * Immunosuppression: MMF 250 mg BID, tacrolimus 1 mg BID (FK 11.0 on 10/10/21, goal 5-8) * Rejection Hx/DSAs: None documented * Last echo: 12/20/20 NJ-Xfxswhexcd-KEM Heather [address] Work Phone: Chief complaint Narrative [...] 04:20 PM , for a telehealth visit. CA-Murmmfxcgy-ISG Heather [place] [address] [place] Work Phone: Evaluation noteNo assessment information available [facility] Work Phone: Evaluation note* Diagnosis Onset Date Resolution Status Acute kidney injury acute Bilateral edema of lower extremity acute Shortness of breath acute [facility] Work Phone: Evaluation note* Diagnosis Onset Date Resolution Status Acute kidney injury acute Bilateral edema of lower extremity acute History of heart transplant acute Shortness of breath acute [facility] Work Phone: Evaluation note* Psychological: [...] distress, alert and cooperative, hard of hearing [facility] Mr. Escobedo is [...] trazodone, trazodone and aripirazole. Discharged back to [facility] with 2x/week home trips. * Immunosuppression: MMF 250 mg BID, tacrolimus 1.5 mg BID (FK 5.4 on 12/24/20, goal 5-8) * Rejection Hx/DSAs: None documented * Last echo: 12/20/20 OP-Wiclruvium-RMT [place] [address] [place] Work Phone: History of Present [...] B/L LE edema. Spoke with RN at [facility]; states LE edema has been ongoing for several weeks, with a rash . * Labs drawn 06/24/21; BNP 224 * Immunosuppression: MMF 250 mg BID, tacrolimus 1.5 mg BID (FK 5.4 on 12/24/20, goal 5-8) - FK pendingfrom 06/24/21 from SNF * Rejection Hx/DSAs: None documented * Last echo: 12/20/20 GI-Qivbwkmevu-SFR [place] [address] [place] Work Phone: History of Present [...] Hx/DSAs: None documented * Last echo: 12/20/20 OJ-Ptblpvdrui-OVV Heather [place] [address] [place] Work Phone: History [...] Hx/DSAs: None documented * Last echo: 12/20/20 TF-Xwvchrzedb-VYO Heather [place] [address] [place] Work Phone: History [...] Hx/DSAs: None documented * Last echo: 12/20/20 GP-Alxgaruxvp-GGB Heather [place] [address] [place] Work Phone: Reason for referral (narrative)* Reason for Referral: HF, DAVID, scabies [facility] Family History No Family History Records FoundUnknown [...] content) Reason Comments Altered 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; staff state pt would not respond and stared off into space Hypotension SHIPPING CHECKER staff from [place] rn state BP 70s/ANGELICA [...] Active Yoshi Hernandez MD Attending Provider Active [employer] Relationship Specialty Start Date End Date Michael Carballo [address] [place] [address] PCP - General Specialist 12/17/20 Goals (unrecognized [...] CREATED AUTHOR AUTHOR'S ORGANIZ ATION 07/31/2022 [facility] DATE CREATED AUTHOR AUTHOR'S ORGANIZ ATION 09/07/2022 [facility] DATE CREATED AUTHOR AUTHOR'S ORGANIZ ATION 09/14/2022 [facility] DATE CREATED AUTHOR AUTHOR'S ORGANIZ ATION 11/21/2022 [facility] FOR RECORDS PERTAINING TO PATIENTS WHO [...] BE BASED ON THE PRIMARY CLINICAL RECORDS. [employer] provides no warranty or guarantee of the accuracy or completeness of information in this document.
[2023-04-16 11:34] LABS: Thyroid Stimulating Hormone 2.132 uIU/mL (0.358-3.740)
== END 2023-04-16 06:40 | disposition home or self-care (01) ==
LOC: LAB 06:39
PROVIDERS: Visit Provider Nurse Practitioner Family
DX: E03.9 Hypothyroidism, unspecified (principal)
CPT/HCPCS: 36415; 84443

== ENCOUNTER 2023-08-06 02:42 | Outpatient (REF) | payer MEDICARE, SELFPAY ==
[2023-08-06 09:39] LABS: Estimated Average Glucose 183 mg/dL
== END 2023-08-06 02:43 | disposition home or self-care (01) ==
LOC: LAB 02:42
PROVIDERS: Visit Provider Family Medicine
DX: E11.8 Type 2 diabetes mellitus with unspecified complications (principal)
CPT/HCPCS: 36415; 83036

== ENCOUNTER 2023-08-22 22:54 | Outpatient (REF) | payer MEDICARE, SELFPAY ==
--- OUTSIDE RECORDS SUMMARY | 2023-08-20 01:56 | XMS_ITS | CCD ---
Author Organization [facility] Care Team Providers Care Executive Chairman Name Role Phone Micahel Carballo Unavailable Unavailable Unavailable Michael Carballo Primary Care Provider MD Michael Carballo Primary Care Provider JIL Davies Attending Provider DO Manfred Wilson [facility] Andrew Hern[facility]dez Emergency Provider [phone] MD Omid Myrick Admit Provider MD Omid Myrick Attending Provider Al MD Yoshi Campoverde Attending Provider Michael Carballo Unavailable DionPascual wheataashish Unavailable Palliative Care Unavailable Unavailable Gene Shook Unavailable Felicia Astorga Unavailable Michael aCrballo Primary Care Provider DONNA ARELLANO Referring Unavailable MICHAEL CARBALLO Primary Care Unavailable CARBALLO ., DR MICHAEL Palomino Primary [...] Unavailab DO FELICIA Frank Attending Unava ilable Haris, Dr. Michael López Primary Care Unavailab Manfred Barlow Primary Care Unavailable Anna Tucker Attending Unavailable Anna Tucker Admitting Unavailable Allergies Allergy Classification Reported Allergen(s) Allergy Type Date of Onset Reaction(s) Facility (8 sources) Allopurinol; Translations: [allopurinol] Drug Allergy 10-16-2018 [facility] (8 sources) ceFAZolin; Translations: [Cefazolin] Drug Allergy 06-25-2021 Rash, [facility] Comment on above: extensive fiery red and warm flat rash (1 source) Allopurinol Drug Allergy [facility] (1 source) ceFAZolin Drug Allergy [facility] (1 source) Allopurinol Drug Allergy 06-25-2021 [facility] Medications Current Medications Medication Drug Class(es) [...] 23-Dec-2015 Active take 1 tablet by anila th twice daily Calcium 600+D 600 mg-200 units oral tablet ; 1 tab(s)crushed and mixed with water by gastrostomy tube 2 times a day Quantity: 0 Refills: 0 Ordered: 23-Jan-2016 Warren Burr T Status: Other Generic Substitution Allowed calcium citrate [...] mg Start: 11-03-2018 take 1 capsule by [facility] once daily in the evening dilTIAZem HCl ER Coated Beads 300 MG Oral Capsule Extended Release 24 Hour take 1 capsule every evening Quantity: 0 Refills: 0 Ordered: 04-Jul-2021 Felicia Astorga DO Start : 03-Nov-2018 Active Start: 11-03-2018 take 1 capsule by [facility] once daily dilTIAZem HCl ER Coated Beads 360 MG Oral Capsule Extended Release 24 Hour TAKE 1 CAPSULE Daily Quantity: 30 Refills: 11 Ordered: 03-Nov-2018 Felicia Astorga DO Start : 03-Nov-2018 Active Start: 11-03-2018 take 1 capsule by [facility] [place] once daily dilTIAZem HCl ER Coated Beads 240 MG Oral Capsule Extended Release 24 Hour TAKE 1 CAPSULE Daily Quantity: 90 Refills: 3 Ordered: 24-Dec-2020 Felicia Astorga DO Start : 03-Nov-2018 Active Start: 10-31-2018 take 1 capsule by [facility] every twenty-four hours dilTIAZem 240 mg/24 hours [...] mg Start: 10-31-2018 take 1 tablet by anila three times daily hydrALAZINE HCl - 100 [...] tablet (6 sources) Nitrate Vasodilator Start: 11-01-19 19 take 120 mg by mouth once daily [...] mg Start: 11-02-2018 take 1 capsule by [facility] every twelve hours Mycophenolate Mofetil 250 MG Oral Capsule TAKE 1 CAPSULE Every twelve hours Quantity: 60 Refills: 11 Ordered: 31-Dec-2020 Joselyn Arias MD Start : 02-Nov-2018 Active Start: 10-31-2018 take 1 capsule by mo uth every twelve hours mycophenolate mofetil 250 mg oral capsule ; 1 cap(s) orally every 12 hours Quantity: 0 Refills: 0 Ordered: 31-Oct-2018 Gayle Morales Start: 31-Oct-2018 Generic Substitution Allowed Start: 02-02-2017 [...] Tamiko Dsouza Status: Discontinued Generic Substitution Allowed [place] 9-Wih-Eqt-Fish Oil (Fish Oil) 1,000 mg (120 mg-180 mg) Capsule (4 sources) Start: 08-05-2017 take 1 tablet by mouth twice daily [place] 2-Rzl-Sjv-Fish Oil (Fish Oil) 1,000 mg (120 mg-180 mg) Capsule Active 1 TAB PO Twice daily August 05, 2017 11:13am Start: 08-05-2017 take 1 tablet by anila th once daily [place] 4-Tlt-Yiv-Fish Oil (Fish Oil) 1,000 mg (120 mg-180 mg) Capsule Active 1 TAB PO Daily August 05, 2017 11:13am Start: 08-05-2017 take 1 tablet by anila th twice daily [place] 3-Eus-Pla-Fish Oil (Fish Oil) 1,000 mg (120 mg-180 [...] tube 2 times a day only on Vyvwuq-Hymnfyktv-Ljcijj Quantity: 24 Refills: 0 Ordered: 21-Jan-2016 Warren [...] possible liver damage. take 2 tablets by mo [facility] every six hours as needed for pain [...] day Quantity: 0 Refills: 0 Ordered: 26-Jul-2013 RojasBecka Status: Discontinued Generic Substitution Allowed Vitamin C 500 MG TABS Take 1 tablet twice daily Quantity: 60 Refills: 0 Ordered: 23-Dec-2015 Manohar Valdez MD Active B Complex Oral Tablet (2 sources) take 1 tablet by mouth once daily B Complex Oral Tablet TAKE 1 TABLET DAILY. Quantity: 30 Refills: 0 Ordered: 18-Apr-2017 Manohar Valdez MD Active busPIRone hydrochloride 5 mg oral tablet (8 sources) Start: 10-15-2021 take 1 tablet by mouth twice daily busPIRone HCl - 5 MG Oral Tablet TAKE 1 TABLET TWICE DAILY. Quantity: 0 Refills: 0 Ordered: 22-Jul-2022 DO Start : 15-Oct-2021 Active Start: 10-15-2021 take 2 tablets by mo [facility] once daily busPIRone HCl - 10 MG Oral Tablet TAKE 2 TABLET Daily Quantity: 0 Refills: 0 Ordered: 15-Oct-2021 DO Start : 15-Oct-2021 [facility] busPIRone (BUSPAR) 15 MG [...] Start: 06-25-2021 take 2000 [IU] by mo ut once daily Cholecalciferol (Vitamin D3) Active 2000 [...] Start: 07-02-2021 take 1 tablet by anila th twice daily cloNIDine 0.1 mg oral tablet ; 1 tab(s) orally 2 times a day Quantity: 0 Refills: 0 Ordered: 02-Jul-2021 Jihan Storm Start: 02-Jul-2021 Generic Substitution Allowed clopidogrel 75 mg oral tablet (20 sources) P2Y12 Platelet Inhibitor Start: 02-02-2017 End: 11-03-2021 take 1 tablet by mouth once daily [...] Allowed Start: 10-31-2018 take 1 capsule by [facility] every six hours as needed diphenhydrAMINE 25 [...] hours Quantity: 60 Refills: 11 Ordered: 07-Jun-2018 oJselyn Arias MD Start : 07-Jun-2018 Active take 1 capsule by mouth twice da padmaja [place]-3 Fatty Acids (FISH OIL) 1000 MG [...] if Blood Glucose is between 251 - 14372 unit(s) if Blood Glucose is between 301 - 64274 unit(s) if Blood Glucose is between 351 [...] if Blood glucose is between 301 - 71794 unit(s) if Blood glucose is between 351 [...] 02-Jul-2021 Generic Substitution Allowed polyethylene glycol 3350 99241 mg powder for oral solution (7 sources) Osmotic Laxative Start: 10-15-2021 MiraLax Mix-I n [place] 17 GM Oral Packet MIX 1 PACKET [...] : 17-Jul-2021 End : 13-Jul-2022 Complete Start: 04-28-2022 Ozempic (0.25 or 0.5 MG/DOSE) 2 MG/1.5ML [...] Allowed Start: 07-02-2021 take 1 capsule by [facility] every twelve hours Tacrolimus 1 MG Oral Capsule TAKE 1 CAPSULE Every twelve hours Quantity: 60 Refills: 0 Ordered: 04-Jul-2021 DO Start : 04-Jul-2021 Active Start: 12-18-2020 tacrolimus (pr oGRAF) capsule 1.5 mg Start: 02-02-2017 End: 01-22-2021 tacrolimus 1 mg oral capsule ; 1 cap(s) orally 2 times a day 6.30 1830 Quantity: 60 Refills: 0 Ordered: 24-Dec-2020 Kd [...] Coma; stupor; and brain damage (1 source) Namrata coma scale finding; Translations: [Namrata coma scale score 13-15, at hospital admission] [...] Chronic Comment on above: Added by Problem Margarita Newton; 2012-10-14; Moved to Suppressed Feb 17 2013 9:03PM; Fever of unknown [...] cerebrovascular disease, hemiplegia affecting dominant side] Onset: 2 02-04-2017 Chronic Mood disorders (15 sources) Depressive disorder; [...] Range Facility [facility] 09-14-2022 Lab Reports [id number] [facility] VIT D 25-OH LABCORPon 2022 Vitamin D, 25-Hydroxy 29.5 ng/mL Critically low 30.0-100.0 [facility] Comment on above: Result Comment: Jennifer min D deficiency has been defined by the [place] of [employer] and an Endocrine Society practice guideline as a level of serum 25-OH vitamin D less than 20 ng/mL (1,2). The Endocrine Society went on to further define vitamin D insufficiency as a level between 21 and 29 ng/mL (2). 1. IOM ([place] of Medicine). 2010. Dietary reference intakes for calcium and D. [place]: The National Academies Press. 2. E[place] MF, Brad [place], Kristy ORTEGA, et al. Evaluation, treatment, and prevention of vitamin D deficiency: an Endocrine Society clinical practice guideline. JCEM. 2010; 96(7):1911-30. Performed By: #### V ITADLC #### [facility] [address] [place] [address] Dr. Ronnie Pennington CBC AUTO DIFFon 07-24-2022 BASO # 0.0 103/ul Normal 0.0-0.1 [facility] Comment on above: Performed By: #### C BC #### [facility] [id number] Ronnie Pennington Basophils/100 WBC (Bld) 0.6 % Normal 0.2-2.0 [facility] Comment on above: Performed By: #### C BC #### [facility] [address] [address] [address] Ronnie Pennington EO # 0.1 103/ul Normal 0.0-0.7 [facility] Comment on above: Performed By: #### C BC #### [facility] [address] [address] [address] Ronnie Pennington Eosinophils/100 WBC (Bld) 2.0 % Normal 0.9-7.0 [facility] Comment on above: Performed By: #### C BC #### [facility] [address] [place] [address] Dr. Ronnie Pennington Erythrocyte distribution width (RBC) [Ratio] 13.2 % Normal 11.0-15.0 [facility] Comment on above: Performed By: #### C BC #### [facility] [address] [place] [address] Dr. Ronnie Pennington Hematocrit (Bld) [Volume fraction] 33.3 % Critically low 42.0-54.0 [facility] Comment on above: Performed By: #### C BC #### [facility] [address] [place] [address] Dr. Ronnie Pennington Hemoglobin (Bld) [Mass/Vol] 10.0 g/dL Critically low 14.0-18.0 [facility] Comment on above: Performed By: #### C BC #### [facility] [address] [address] [address] Ronnie Pennington IG # 0.04 10e3/ul Critically high 0.00-0.03 [facility] Comment on above: Performed By: #### C BC #### [facility] [address] [address] [address] Ronnie Pennington IG % 0.6 % Critically high 0.0-0.5 [facility] Comment on above: Performed By: #### C BC #### [facility] [address] [place] [address] Dr. Ronnie Pennington LYMPH # 1.2 103/ul Normal 1.2-3.8 [facility] Comment on above: Performed By: #### C BC #### [facility] [address] [place] [address] Dr. Ronnie Pennington Lymphocytes/100 WBC (Bld) 17.9 % Critically low 20.5-60.0 [facility] Comment on above: Performed By: #### C BC #### [facility] [address] [place] [address] Dr. Ronnie Pennington MANUAL DIFF REQ NO Normal [facility] Comment on above: Performed By: #### C BC #### [facility] [address] [place] [address] Dr. Ronnie Pennington MCH (RBC) [Entitic mass] 28.2 pg Normal 25.9-34.0 [facility] Comment on above: Performed By: #### C BC #### [facility] [address] [place] [address] Dr. Ronnie Pennington MCHC (RBC) [Mass/Vol] 30.0 g/dL Normal 29.9-35.2 [facility] Comment on above: Performed By: #### C BC #### [facility] [address] [place] [address] Dr. Ronnie Pennington MCV (RBC) [Entitic vol] 94.1 fL Critically high 80.0-94 .0 [facility] Comment on above: Performed By: #### C BC #### [facility] [address] [place] [address] Dr. Ronnie Pennington MONO # 0.4 103/ul Normal 0.3-0.8 [facility] Comment on above: Performed By: #### C BC #### [facility] [address] [place] [address] Dr. Ronnie Pennington Monocytes/100 WBC (Bld) 6.5 % Normal 1.7-12.0 [facility] Comment on above: Performed By: #### C BC #### [facility] [address] [place], [place] [id number] Dr. Ronnie Pennington NEUT # 4.8 103/ul Normal 1.4-6.5 [facility] Comment on above: Performed By: #### C BC #### [facility] [address] [place] [address] Dr. Ronnie Pennington Neutrophils/100 WBC (Bld) 72.4 % Normal 43.0-75.0 [facility] Comment on above: Performed By: #### C BC #### [facility] [address] [place] [address] Dr. Ronnie Pennington Platelet mean volume (Bld) [Entitic vol] 11.7 fL Normal 9.5-13.5 [facility] Comment on above: Performed By: #### C BC #### [facility] [address] [place] [address] Dr. Ronnie Pennington PLT 137 103/ul Critically low 150-450 [facility] Comment on above: Performed By: #### C BC #### [facility] [address] [place] [address] Dr. Ronnie Pennington RBC 3.54 106/ul Critically low 4.70-6.10 [facility] Comment on above: Performed By: #### C BC #### [facility] [address] [place] [address] Dr. Ronnie Pennington WBC 6.6 103/ul Normal 4.0-11.0 [facility] Comment on above: Performed By: #### C BC #### [facility] [address] [place] [address] Dr. Ronnie Pennington GLYCOHEMOGLOBIN A1Con 2022 ADA RECOMMENDATION SEE BELOW Normal [facility] Comment on above: Result Comment: ADA RECOMMENDED LIMIT 4.0 - 6.0 ADA THERAPEUTIC TARGET < 7.0 ACTION SUGGESTED > 7.0 Performed By: #### A 1C #### [facility] [address] [place] [address] Dr. Ronnie Pennington Glucose [Mass/Vol] 171 mg/dL Normal [facility] Comment on above: Performed By: #### A 1C #### [facility] [address] [place] [address] Dr. Ronnie Pennington HbA1c (Bld) [Mass fraction] 7.6 % Critically high 4.5-6.2 [facility] Comment on above: Performed By: #### A 1C #### [facility] [address] [address] [address] Ronnie Pennington MAGNESIUMon 07-24-2022 Magnesium [Mass/Vol] 2.3 mg/dL Normal 1.8-2.4 [facility] Comment on above: Performed By: #### M G, TSH, CMP ####[facility] [address] [address]DrFreddy Pennington PROF 14(COMP METB)on 023 Albumin [Mass/Vol] 2.8 g/dL Critically low 3.4-5.0 [facility] Comment on above: Performed By: #### M G, TSH, CMP ####[facility] [address] [address]DrFreddy Pennington Albumin/Globulin [Mass ratio] 0.7 {ratio} Normal [facility] Comment on above: Performed By: #### M G, TSH, CMP ####[facility] [address] [address]Dr. Ronnie Pennington ALP [Catalytic activity/Vol] 69 U/L Normal 46-116 [facility] Comment on above: Performed By: #### M G, TSH, CMP ####[facility] [address] [address]DrFreddy Pennington ALT [Catalytic activity/Vol] 8 U/L Critically low 16-63 [facility] Comment on above: Performed By: #### M G, TSH, CMP ####[facility] [address] [id number]. Ronnie Pennington Anion gap [Moles/Vol] 9.9 mmol/L Normal [facility] Comment on above: Performed By: #### M G, TSH, CMP ####[facility] [address] [address]Dr. Ronnie Pennington AST [Catalytic activity/Vol] 9 U/L Critically low 15-37 [facility] Comment on above: Performed By: #### M G, TSH, CMP ####[facility] [address] [address]Dr. Ronnie Pennington Bilirubin [Mass/Vol] 0.2 mg/dL Normal 0.2-1.0 [facility] Comment on above: Performed By: #### M G, TSH, CMP ####[facility] [address] [place], [place] [address]Dr. Ronnie Pennington Calcium [Mass/Vol] 8.9 mg/dL Normal 8.5-10.1 [facility] Comment on above: Performed By: #### M G, TSH, CMP ####[facility] [address] [place], [place] [address]Dr. Ronnie Pennington Chloride [Moles/Vol] 104 mmol/L Normal 98-107 [facility] Comment on above: Performed By: #### M G, TSH, CMP ####[facility] [address] [place], [place] [address]Dr. Ronnie Pennington CO2 [Moles/Vol] 28.4 mmol/L Normal 21.0-32.0 [facility] Comment on above: Performed By: #### M G, TSH, CMP ####[facility] [address] [place], [place] [address]Dr. Ronnie Pennington Creatinine [Mass/Vol] 2.09 mg/dL Critically high 0.70-1.30 [facility] Comment on above: Performed By: #### M G, TSH, CMP ####[facility] [address] [place], [place] [address]Dr. Ronnie Pennington EGFR-AF CHILEAN 37 mL/min/1.73m2 Critically low >=60 [facility] Comment on above: Performed By: #### M G, TSH, CMP ####[facility] [address] [place], [place] [address]Dr. Ronnie Pennington EGFR-NON AF CHILEAN 31 mL/min/1.73m2 Critically low >=60 [facility] Comment on above: Performed By: #### M G, TSH, CMP ####[facility] [address] [id number]. Ronnie Pennington Globulin (S) [Mass/Vol] 3.9 g/dL Normal [facility] Comment on above: Performed By: #### M G, TSH, CMP ####[facility] [address] [address]Dr. Ronnie Pennington Glucose [Mass/Vol] 165 mg/dL Critically high 74-106 [facility] Comment on above: Performed By: #### M G, TSH, CMP ####[facility] [address] [address]Dr. Ronnie Pennington Potassium [Moles/Vol] 4.3 mmol/L Normal 3.5-5.1 [facility] Comment on above: Performed By: #### M G, TSH, CMP ####[facility] [address] [place], [place] [address]Dr. Ronnie Pennington Protein [Mass/Vol] 6.7 g/dL Normal 6.4-8.2 [facility] Comment on above: Performed By: #### M G, TSH, CMP ####[facility] [address] [place], [place] [address]Dr. Ronine Pennington Sodium [Moles/Vol] 138 mmol/L Normal 136-145 [facility] Comment on above: Performed By: #### M G, TSH, CMP ####[facility] [address] [place], [place] [address]Dr. Ronnie Pennington Urea nitrogen [Mass/Vol] 33.0 mg/dL Critically high 7.0-18.0 [facility] Comment on above: Performed By: #### M G, TSH, CMP ####[facility] [address] [place], [place] [address]Dr. Ronnie Pennington Urea nitrogen/Creatinine [Mass ratio] 15.8 mg/mg Normal [facility] Comment on above: Performed By: #### M G, TSH, CMP ####[facility] [address] [place], [place] [address]Dr. Ronnie Gorge TSHon 07-24-2022 TSH 2.763 uIU/mL Normal 0.358-3.74 0 [facility] Comment on above: Performed By: #### M G, TSH, CMP ####[facility] [address] [address]Dr. Ronnie Pennington FK506 (TACROLIMUS) WHOLE BLO ODon 07-15-2022 Tacrolimus (FK506), Blood 9.4 ng/mL Normal 2.0-20.0 [facility] Comment on above: Result Comment: Trou gh (immediately following transplant) 15.0 . Trough (steady state, 2 weeks or more after transplant): 3.0 - 8.0 . Performed by LC-MS/MS technology. Performed By: #### F [id number] #### [facility] [address] [place] [address] Dr. Ronnie Pennington CBC AUTO DIFFon 07-13-2022 BASO # 0.0 103/ul Normal 0.0-0.1 [facility] Comment on above: Performed By: #### C BC #### [facility] [address] [place] [address] Dr. Ronnie Pennington Basophils/100 WBC (Bld) 0.3 % Normal 0.2-2.0 [facility] Comment on above: Performed By: #### C BC #### [facility] [address] [place] [address] Dr. Ronnie Pennington EO # 0.2 103/ul Normal 0.0-0.7 [facility] Comment on above: Performed By: #### C BC #### [facility] [address] [place] [address] Dr. Ronnie Pennington Eosinophils/100 WBC (Bld) 2.5 % Normal 0.9-7.0 [facility] Comment on above: Performed By: #### C BC #### [facility] [address] [place] [address] Dr. Ronnie Pennington Erythrocyte distribution width (RBC) [Ratio] 13.1 % Normal 11.0-15.0 [facility] Comment on above: Performed By: #### C BC #### [facility] [address] [place] [address] Dr. Ronnie Pennington Hematocrit (Bld) [Volume fraction] 33.4 % Critically low 42.0-54.0 [facility] Comment on above: Performed By: #### C BC #### [facility] [address] [place] [address] Dr. Ronnie Pennington Hemoglobin (Bld) [Mass/Vol] 10.4 g/dL Critically low 14.0-18.0 [facility] Comment on above: Performed By: #### C BC #### [facility] [address] [address] [address] Ronnie Pennington IG # 0.04 10e3/ul Critically high 0.00-0.03 [facility] Comment on above: Performed By: #### C BC #### [facility] [address] [place] [address] Dr. Ronnie Pennington IG % 0.6 % Critically high 0.0-0.5 [facility] Comment on above: Performed By: #### C BC #### [facility] [address] [place] [address] Dr. Ronnie Pennington LYMPH # 1.2 103/ul Normal 1.2-3.8 [facility] Comment on above: Performed By: #### C BC #### [facility] [address] [place] [address] Dr. Ronnie Pennington Lymphocytes/100 WBC (Bld) 16.8 % Critically low 20.5-60.0 [facility] Comment on above: Performed By: #### C BC #### [facility] [address] [place] [address] Dr. Ronnie Pennington MANUAL DIFF REQ NO Normal [facility] Comment on above: Performed By: #### C BC #### [facility] [address] [place] [address] Dr. Ronnie Pennington MCH (RBC) [Entitic mass] 28.5 pg Normal 25.9-34.0 [facility] Comment on above: Performed By: #### C BC #### [facility] [address] [place] [address] Dr. Ronnie Pennington MCHC (RBC) [Mass/Vol] 31.1 g/dL Normal 29.9-35.2 [facility] Comment on above: Performed By: #### C BC #### [facility] [address] [place] [address] Dr. Ronnie Pennington MCV (RBC) [Entitic vol] 91.5 fL Normal 80.0-94.0 [facility] Comment on above: Performed By: #### C BC #### [facility] [address] [place] [address] Dr. Ronnie Pennington MONO # 0.5 103/ul Normal 0.3-0.8 [facility] Comment on above: Performed By: #### C BC #### [facility] [address] [place] [address] Dr. Ronnie Pennington Monocytes/100 WBC (Bld) 7.5 % Normal 1.7-12.0 [facility] Comment on above: Performed By: #### C BC #### [facility] [address] [place] [address] Dr. Ronnie Pennington NEUT # 5.0 103/ul Normal 1.4-6.5 [facility] Comment on above: Performed By: #### C BC #### [facility] [address] [place] [address] Dr. Ronnie Pennington Neutrophils/100 WBC (Bld) 72.3 % Normal 43.0-75.0 [facility] Comment on above: Performed By: #### C BC #### [facility] [address] [place] [address] Dr. Ronnie Pennington Platelet mean volume (Bld) [Entitic vol] 11.8 fL Normal 9.5-13.5 [facility] Comment on above: Performed By: #### C BC #### [facility] [address] [place] [address] Dr. Ronnie Pennington PLT 126 103/ul Critically low 150-450 [facility] Comment on above: Performed By: #### C BC #### [facility] [address] [place] [address] Dr. Ronnie Pennington RBC 3.65 106/ul Critically low 4.70-6.10 [facility] Comment on above: Performed By: #### C BC #### [facility] [facility] [address] [address] [address] Ronnie Pennington WBC 6.9 103/ul Normal 4.0-11.0 [facility] Comment on above: Performed By: #### C BC #### [facility] [address] [address] [address] Ronnie Pennington MAGNESIUMon 07-13-2022 Magnesium [Mass/Vol] 2.1 mg/dL Normal 1.8-2.4 [facility] Comment on above: Performed By: #### C MP, MG #### [facility] [address] [address] [address] Ronnie Pennington Office Visit (Cardiology)on 07-13-2022 Follow-up visit Patient Instructions -Please bring a list of your medications to every appointment. -We will schedule you a follow up appointment in # months. We will call you with this date. -If you have any questions, please do not hesitate to contact our office at [phone]. For after hours issues, please call [phone]. Chief Complaint OLIVERIO ESCOBEDO is being seen [...] September 2021. [place] He has started Zoloft for depression. He [...] TabletTake 1 tablet twice daily MiraLax Mix-In [place] 17 GM Oral PacketMIX 1 PACKET in [...] TABLET Bedtime (more content not included)... Normal Touchworks PROF 14(COMP METB)on 04-24-2 023 Albumin [Mass/Vol] 2.9 g/dL Critically low 3.4-5.0 [facility] Comment on above: Performed By: #### C MP, MG #### [facility] [address] [place] [address] Dr. Ronnie Pennington Albumin/Globulin [Mass ratio] 0.7 {ratio} Normal [facility] Comment on above: Performed By: #### C MP, MG #### [facility] [address] [place] [address] Dr. Ronnie Pennington ALP [Catalytic activity/Vol] 71 U/L Normal 46-116 [facility] Comment on above: Performed By: #### C MP, MG #### [facility] [address] [place] [address] Dr. Ronnie Pennington ALT [Catalytic activity/Vol] 12 U/L Critically low 16-63 [facility] Comment on above: Performed By: #### C MP, MG #### [facility] [address] [place] [address] Dr. Ronnie Pennington Anion gap [Moles/Vol] 15.1 mmol/L Normal [facility] Comment on above: Performed By: #### C MP, MG #### [facility] [address] [place] [address] Dr. Ronnie Pennington AST [Catalytic activity/Vol] 11 U/L Critically low 15-37 [facility] Comment on above: Performed By: #### C MP, MG #### [facility] [address] [place] [address] Dr. Ronnie Pennington Bilirubin [Mass/Vol] 0.2 mg/dL Normal 0.2-1.0 [facility] Comment on above: Performed By: #### C MP, MG #### [facility] [address] [place] [address] Dr. Ronnie Pennington Calcium [Mass/Vol] 9.2 mg/dL Normal 8.5-10.1 [facility] Comment on above: Performed By: #### C MP, MG #### [facility] [address] [place] [address] Dr. Ronnie Pennington Chloride [Moles/Vol] 105 mmol/L Normal 98-107 [facility] Comment on above: Performed By: #### C MP, MG #### [facility] [address] [place] [address] Dr. Ronnie Pennington CO2 [Moles/Vol] 28.1 mmol/L Normal 21.0-32.0 [facility] Comment on above: Performed By: #### C MP, MG #### [facility] [address] [place] [address] Dr. Ronnie Pennington Creatinine [Mass/Vol] 2.14 mg/dL Critically high 0.70-1.30 [facility] Comment on above: Performed By: #### C MP, MG #### [facility] [address] [place] [address] Dr. Ronnie Pennington EGFR-AF CHILEAN 36 mL/min/1.73m2 Critically low >=60 [facility] Comment on above: Performed By: #### C MP, MG #### [facility] [address] [place] [address] Dr. Ronnie Pennington EGFR-NON AF CHILEAN 30 mL/min/1.73m2 Critically low >=60 [facility] Comment on above: Performed By: #### C MP, MG #### [facility] [address] [place] [address] Dr. Ronnie Pennington Globulin (S) [Mass/Vol] 4.0 g/dL Normal [facility] Comment on above: Performed By: #### C MP, MG #### [facility] [address] [place] [address] Dr. Ronnie Pennington Glucose [Mass/Vol] 150 mg/dL Critically high 74-106 [facility] Comment on above: Performed By: #### C MP, MG #### [facility] [address] [place] [address] Dr. Ronnie Pennington Potassium [Moles/Vol] 4.2 mmol/L Normal 3.5-5.1 [facility] Comment on above: Performed By: #### C MP, MG #### [facility] [address] [address] [address] Ronnie Pennington Protein [Mass/Vol] 6.9 g/dL Normal 6.4-8.2 [facility] Comment on above: Performed By: #### C MP, MG #### [facility] [address] [address] [address] Ronnie Pennington Sodium [Moles/Vol] 144 mmol/L Normal 136-145 [facility] Comment on above: Performed By: #### C MP, MG #### [facility] [address] [address] [address] Ronnie Pennington Urea nitrogen [Mass/Vol] 32.0 mg/dL Critically high 7.0-18.0 [facility] Comment on above: Performed By: #### C MP, MG #### [facility] [address] [address] [address] Ronnie Pennington Urea nitrogen/Creatinine [Mass ratio] 15.0 mg/mg Normal [facility] Comment on above: Performed By: #### C MP, MG #### [facility] [address] [address] [address] Ronnie Pennington Transplant SW Assessment Upd [...] Jul 15 2022 12:57PM EST (Author) Normal [employer] Consultation Noteon 06-10-19 Consultation Note [id number] [facility] TSHon 06-05-2022 TSH 3.293 uIU/mL Normal 0.358-3.74 0 [facility] Comment on above: Performed By: #### T SH #### [facility] [address] [address] [address] Ronnie Pennington Cult,Woundon 04-19-2022 Cult,Wound Specimen [...] Tetracycline <=1 SUSCEPTIBLE Trimethoprim/Sulfa <=10 SUSCEPTIBLE Susceptible [facility] Comment on above: Performed By: #### W ID #### [facility] [address] [place] [address] Fee Clerk: David Gonzalez MD PROF CHEM 8 ([facility])on Anion gap [Moles/Vol] 14.9 mmol/L Normal [facility] Comment on above: Performed By: #### B MP #### [facility] [address] [address] [address] Ronnie Pennington Calcium [Mass/Vol] 8.8 mg/dL Normal 8.5-10.1 [facility] Comment on above: Performed By: #### B MP #### [facility] [address] [address] [address] Ronnie Pennington Chloride [Moles/Vol] 104 mmol/L Normal 98-107 [facility] Comment on above: Performed By: #### B MP #### [facility] [address] [address] [address] Ronnie Pennington CO2 [Moles/Vol] 26.6 mmol/L Normal 21.0-32.0 [facility] Comment on above: Performed By: #### B MP #### [facility] [address] [address] [address] Ronnie Pennington Creatinine [Mass/Vol] 2.03 mg/dL Critically high 0.70-1.30 [facility] Comment on above: Performed By: #### B MP #### [facility] [address] [address] [address] Ronnie Pennington EGFR-AF CHILEAN 39 mL/min/1.73m2 Critically low >=60 [facility] Comment on above: Performed By: #### B MP #### [facility] [address] [address] [address] Ronnie Pennington EGFR-NON AF CHILEAN 32 mL/min/1.73m2 Critically low >=60 [facility] Comment on above: Performed By: #### B MP #### [facility] [address] [address] [address] Ronnie Pennington Glucose [Mass/Vol] 209 mg/dL Critically high 74-106 [facility] Comment on above: Performed By: #### B MP #### [facility] [address] [address] [address] Ronnie Pennington Potassium [Moles/Vol] 4.5 mmol/L Normal 3.5-5.1 [facility] Comment on above: Performed By: #### B MP #### [facility] [address] [address] [address] Ronnie Pennington Sodium [Moles/Vol] 141 mmol/L Normal 136-145 [facility] Comment on above: Performed By: #### B MP #### [facility] [address] [address] [address] Ronnie Pennington Urea nitrogen [Mass/Vol] 26.0 mg/dL Critically high 7.0-18.0 [facility] Comment on above: Performed By: #### B MP #### [facility] [address] [address] [address] Ronnie Pennington Urea nitrogen/Creatinine [Mass ratio] 12.8 mg/mg Normal [facility] Comment on above: Performed By: #### B MP #### [facility] [address] [address] [address] 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 A tele visit was performed today. Interval Hx: Clonidine increased at last office visit; documented BPs at the [facility] 120-130s/70-80s. Benadryl 25 mg q6h PRN [...] Oral TabletTak (more content not included)... Normal [facility] XR MODIFIED BARIUM SWALLOWon 08-05-2021 XR MODIFIED [...] JARON NESS Date: 2021-08-05 15:10 Normal [facility] CBC AND DIFFERENTIALon 07-13 % AUTOMATED IMMATURE GRAN 0.5 % Normal 0.0 - 0.9 [facility] Comment on above: Result Comment: Christal ture Granulocyte Count (IG) includes promyelocytes, myelocytes and metamyelocytes but does not include bands. Percent differential counts (%) should be interpreted in the context of the absolute cell counts (cells/L). Performed By: #### C BCDF #### [address] [address] Basophils (Bld) [#/Vol] 0.02 10*3/uL Normal 0.00 - 0.10 [facility] Comment on above: Performed By: #### C BCDF #### [address] [address] Basophils/100 WBC (Bld) 0.3 % Normal 0.0 - 2.0 [facility] Comment on above: Performed By: #### C BCDF #### [address] [address] Eosinophils (Bld) [#/Vol] 0.07 10*3/uL Normal 0.00 - 0.40 [facility] Comment on above: Performed By: #### C BCDF #### [address] [address] Eosinophils/100 WBC (Bld) 0.9 % Normal 0.0 - 6.0 [facility] Comment on above: Performed By: #### C BCDF #### [address] [address] Erythrocyte distribution width (RBC) [Ratio] 14.4 % Normal 11.5 - 14.5 [facility] Comment on above: Performed By: #### C BCDF #### [address] [address] Hematocrit (Bld) [Volume fraction] 35.5 % Low 41.0 - 52.0 [facility] Comment on above: Performed By: #### C BCDF #### [address] [address] Hemoglobin (Bld) [Mass/Vol] 10.8 g/dL Low 13.5 - 17.5 [facility] Comment on above: Performed By: #### C BCDF #### [address] [address] Lymphocytes (Bld) [#/Vol] 0.42 10*3/uL Low 0.80 - 3.00 [facility] Comment on above: Performed By: #### C BCDF #### [address] [address] Lymphocytes/100 WBC (Bld) 5.6 % Normal 13.0 - 44.0 [facility] Comment on above: Performed By: #### C BCDF #### [address] [address] MCHC (RBC) [Mass/Vol] 30.4 g/dL Low 32.0 - 36.0 [facility] Comment on above: Performed By: #### C BCDF #### [address] [address] MCV (RBC) [Entitic vol] 89 fL Normal 80 - 100 [facility] Comment on above: Performed By: #### C BCDF #### [address] [address] Monocytes (Bld) [#/Vol] 0.07 10*3/uL Normal 0.05 - 0.80 [facility] Comment on above: Performed By: #### C BCDF #### [address] [address] Monocytes/100 WBC (Bld) 0.9 % Normal 2.0 - 10.0 [facility] Comment on above: Performed By: #### C BCDF #### [address] [place] [address] Neutrophils (Bld) [#/Vol] 6.82 10*3/uL High 1.60 - 5.50 [facility] Comment on above: Performed By: #### C BCDF #### [address] [address] Neutrophils/100 WBC (Bld) 91.8 % Normal 40.0 - 80.0 [facility] Comment on above: Performed By: #### C BCDF #### [address] [address] NUCLEATED RBC 0.0 /100 WBC Normal 0.0 - 0.0 [facility] Comment on above: Performed By: #### C BCDF #### [address] [address] Platelets (Bld) [#/Vol] 161 10*3/uL Normal 150 - 450 [facility] Comment on above: Performed By: #### C BCDF #### [address] [address] RBC 3.98 x10E12/L Low 4.50 - 5.90 [facility] Comment on above: Performed By: #### C BCDF #### [address] [address] WBC (Bld) [#/Vol] 7.4 10*3/uL Normal 4.4 - 11.3 [facility] Comment on above: Performed By: #### C BCDF #### [address] [address] Complete Blood Count + Diffe rentialon 07-13-2021 Basophils/100 WBC (Bld) 0.3 % 0.0 - 2.0 [facility] [address] [place] Work Phone: Erythrocyte distribution width (RBC) [Ratio] 14.4 % See Below [facility] [address] [place] Work Phone: Comment on above: Reference Range: 11. 5 - 14.5 Hematocrit (Bld) [Volume fraction] 35.5 % below low threshold See Below [facility] [address] [place] Work Phone: Comment on above: Reference Range: 41. 0 - 52.0 Hemoglobin (Bld) [Mass/Vol] 10.8 g/dL below low threshold See Below [facility] [address] [place] Work Phone: Comment on [...] 161 10*3/uL 150 - 450 [facility] [address] [place] Work Phone: RBC (Bld) [#/Vol] 3.98 {x10E12/L} below low threshold See Below [facility] [address] [place] Work Phone: Comment on above: Reference Range: 4.5 0 - 5.90 WBC (Bld) [#/Vol] 7.4 10*3/uL 4.4 - 11.3 [facility] [employer] [address] [place] Work Phone: Complete Blood Count + Differential 0.02 {x10E9/L} See Below [facility] [address] [place] Work Phone: Comment on above: Reference Range: 0.0 0 - 0.10 Complete Blood Count + Differential 0.07 {x10E9/L} See Below [facility] [address] [place] Work Phone: Comment on above: Reference Range: 0.0 0 - 0.40 Reference Range: 0.0 5 - 0.80 Complete Blood Count + Differential 0.42 {x10E9/L} below low threshold See Below [facility] [employer] [address] [place] Work Phone: Comment on above: Reference Range: 0.8 0 - 3.00 Complete Blood Count + Differential 6.82 {x10E9/L} above high threshold See Below [facility] [employer] [address] [place] Work Phone: Comment on above: Reference Range: 1.6 0 - 5.50 Complete Blood Count + Differential 0.9 % 0.0 - 6.0 [facility] [employer] [address] [place] Work Phone: Complete Blood Count + Differential 0.5 % 0.0 - 0.9 [facility] [employer] [place] Work Phone: Comment on above: Immature Granulocyte Count (IG) includes promyelocytes, myelocytes and metamyelocytes but does not include bands. Percent differential counts (%) should be interpreted in the context of the absolute cell counts (cells/L). Complete Blood Count + Differential 0.0 {/100_WBC} 0.0 - 0.0 [facility] [employer] [facility] [employer] [address] [place] Work Phone: Coronavirus 2019 RNA by PCR, Symptomaticon 07-03-2021 Date and time of symptom onset [id number] [facility] [address] [place] Work Phone: Coronavirus 2019 RNA by PCR, Symptomatic Not detected Normal See Below [facility] [address] [place] Work Phone: Comment on above: SOURCE: Nasal, Nasop haryngealReference Range: Not Detected.This test has received FDA Emergency Use Authorization (EUA) and has been verified by [facility] ([facility]). This test is only authorized for the duration of time that circumstances exist to justify the authorization of the emergency use of in vitro diagnostic tests for the detection of SARS-CoV-2 virus and/or diagnosis of COVID-19 infection under section 564(b)(1) of the Act, 21 U.S.C. 360bbb-3(b)(1), unless the authorization is terminated or revoked sooner. [facility] is certified under CLIA-88 as qualified to perform high complexity testing. Testing is performed in the [facility] located at [address] [place] [address].SARS-CoV-2/Flu/RSV Multiplex Test: Fact sheet for providers: https://www.fda.gov/media/757306/downloadFact sheet for patients: https://www.fda.gov/media/877540/download Laboratory - Chemistry and C hemistry - challengeon 07-03-2021 Glucose [Mass/Vol] 330 mg/dL above high threshold 74 - 99 [facility] [address] [place] Work Phone: Glucose [Mass/Vol] 277 mg/dL above high threshold 74 - 99 [facility] [address] [place] Work Phone: Anion gap [Moles/Vol] 15 mmol/L 10 - 20 [facility] [address] [place] Work Phone: Calcium [Mass/Vol] 9.3 mg/dL 8.6 - 10.6 [facility] [address] [place] Work Phone: Chloride [Moles/Vol] 101 mmol/L 98 - 107 [facility] [address] [place] Work Phone: CO2 [Moles/Vol] 26 mmol/L 21 - 32 [facility] [address] [place] Work Phone: Creatinine [Mass/Vol] 1.80 mg/dL above high threshold See Below [facility] [address] [place] Work Phone: Comment on above: Reference Range: 0.5 0 - 1.30 Glucose [Mass/Vol] 246 mg/dL above high threshold 74 - 99 [facility] [address] [place] Work Phone: Potassium [Moles/Vol] 3.9 mmol/L 3.5 - 5.3 [facility] [address] [place] Work Phone: [phone] Sodium [Moles/Vol] 138 mmol/L 136 - 145 [facility] [address] [place] Work Phone: [phone] Urea nitrogen [Mass/Vol] 35 mg/dL above high threshold 6 - 23 [facility] [address] [place] Work Phone: Laboratory - [...] below low threshold See Below [facility] [address] [place] Work Phone: Comment on above: Reference Range: 13. 5 - 17.5 MCHC (RBC) [Mass/Vol] 30.8 g/dL below low threshold See Below [facility] [address] [place] Work Phone: Comment on above: Reference Range: 32. 0 - 36.0 MCV (RBC) [Entitic vol] 89 fL 80 - 100 [facility] [address] [place] Work Phone: Platelets (Bld) [#/Vol] 171 10*3/uL 150 - 450 [facility] [address] [place] Work Phone: RBC (Bld) [#/Vol] 3.94 {x10E12/L} below low threshold See Below [facility] [address] [place] Work Phone: Comment on above: Reference Range: 4.5 0 - 5.90 WBC (Bld) [#/Vol] 6.0 10*3/uL 4.4 - 11.3 [facility] [address] [place] Work Phone: No Panel Informationon 07-03 38 {mL/min/1.73m2} Abnormal >90 [facility] [address] [place] Work Phone: Comment on above: CALCULATIONS OF ERNST MATED GFR ARE PERFORMED USING THE 2020 CKD-EPI STUDY REFIT EQUATION WITHOUT THE RACE VARIABLE FOR THE IDMS-TRACEABLE CREATININE METHODS.https://jasn.asnjournals.org/content/early// ASN.8441181007 0.0 {/100_WBC} 0.0-0.0 [facility] [address] [place] Work Phone: Tacrolimuson 07-03-2021 Tacrolimus (Bld) [Mass/Vol] 5.5 ng/mL 2.0 - 15.0 [facility] [address] [place] Work Phone: Comment on above: NOTE: Result was obt ained using a chemiluminescent microparticle immunoassay (CMIA) on the [employer]endant i system.Optimal therapeutic ranges for immuno-suppressant drugs [...] high threshold 74 - 99 [facility] [address] [place] Work Phone: [phone] Glucose [Mass/Vol] 286 mg/dL above high threshold 74 - 99 [facility] [address] [place] Work Phone: [phone] Glucose [Mass/Vol] 269 mg/dL above high threshold 74 - 99 [facility] [address] [place] Work Phone: [phone] Anion gap [Moles/Vol] 15 mmol/L 10 - 20 [facility] [address] [place] Work Phone: [phone] Calcium [Mass/Vol] 9.1 mg/dL 8.6 - 10.6 [facility] [address] [place] Work Phone: [phone] Chloride [Moles/Vol] 102 mmol/L 98 - 107 [facility] [address] [place] Work Phone: [phone] CO2 [Moles/Vol] 27 mmol/L 21 - 32 [facility] [address] [place] Work Phone: [phone] Creatinine [Mass/Vol] 1.97 mg/dL above high threshold See Below [facility] [address] [place] Work Phone: Comment on above: Reference Range: 0.5 0 - 1.30 Glucose [Mass/Vol] 197 mg/dL above high threshold 74 - 99 [facility] [address] [place] Work Phone: Potassium [Moles/Vol] 4.1 mmol/L 3.5 - 5.3 [facility] [address] [place] Work Phone: Sodium [Moles/Vol] 140 mmol/L 136 - 145 [facility] [address] [place] Work Phone: [phone] Urea nitrogen [Mass/Vol] 41 mg/dL above high threshold 6 - 23 [facility] [address] [place] Work Phone: [phone] Glucose [Mass/Vol] 201 mg/dL above high threshold 74 - 99 [facility] [address] [place] Work Phone: Laboratory - Hematology and Cell countson 07-02-2021 Erythrocyte distribution width (RBC) [Ratio] 14.1 % See Below [facility] [address] [place] Work Phone: [phone] Comment on above: Reference Range: 11. 5 - 14.5 Hematocrit (Bld) [Volume fraction] 33.6 % below low threshold See Below [facility] [address] [place] Work Phone: Comment on above: Reference Range: 41. 0 - 52.0 Hemoglobin (Bld) [Mass/Vol] 10.5 g/dL below low threshold See Below [facility] [address] [place] Work Phone: Comment on above: Reference Range: 13. 5 - 17.5 MCHC (RBC) [Mass/Vol] 31.3 g/dL below low threshold See Below [facility] [address] [place] Work Phone: Comment on above: Reference Range: 32. 0 - 36.0 MCV (RBC) [Entitic vol] 88 fL 80 - 100 [facility] [address] [place] Work Phone: Platelets (Bld) [#/Vol] 160 10*3/uL 150 - 450 [facility] [address] [place] Work Phone: RBC (Bld) [#/Vol] 3.82 {x10E12/L} below low threshold See Below [facility] [address] [place] Work Phone: Comment on above: Reference Range: 4.5 0 - 5.90 WBC (Bld) [#/Vol] 6.8 10*3/uL 4.4 - 11.3 [facility] [address] [place] Work Phone: No Panel Informationon 07-02 34 {mL/min/1.73m2} Abnormal >90 [facility] [address] [place] Work Phone: Comment on above: CALCULATIONS OF ERNST MATED GFR ARE PERFORMED USING THE 2020 CKD-EPI STUDY REFIT EQUATION WITHOUT THE RACE VARIABLE FOR THE IDMS-TRACEABLE CREATININE METHODS.https://jasn.asnjournals.org/content/early// ASN.0227951530 0.0 {/100_WBC} 0.0-0.0 [facility] [address] [place] Work Phone: Tacrolimuson 07-02-2021 Tacrolimus (Bld) [Mass/Vol] 7.6 ng/mL 2.0 - 15.0 [facility] [address] [place] Work Phone: Comment on above: NOTE: Result was obt ained using a chemiluminescent microparticle immunoassay (CMIA) on the [employer] i system.Optimal therapeutic ranges for immuno-suppressant drugs depend upon an individualpatient's current clinical state, type oforgan transplant, time post-transplant,co-administration of other immunosuppressants,and other clinical factors. The results ofthis test should be correlated with additionalclinical and laboratory data before changesin treatment regimens are made. Hemoglobin A1Con 07-01-2021 Glucose [Mass/Vol] 194 mg/dL [facility] [address] [place] Work Phone: HbA1c (Bld) [...] 13-18 <7.5 7-12 <8.0 0- 6 7.5-8.5 [employer] [employer]. Diabetes Care 33(S1), Mar 2009. Laboratory - Chemistry and C hemistry - challengeon 07-01-2021 Glucose [Mass/Vol] 188 mg/dL above high threshold 74 - 99 [facility] [address] [place] Work Phone: Glucose [Mass/Vol] 258 mg/dL above high threshold 74 - 99 [facility] [address] [place] Work Phone: Glucose [Mass/Vol] [...] [facility] [address] [place] Work Phone: Potassium [Moles/Vol] 4.0 mmol/L 3.5 - 5.3 [facility] [address] [place] Work Phone: Sodium [Moles/Vol] 141 mmol/L 136 - 145 [facility] [address] [place] Work Phone: Urea nitrogen [Mass/Vol] 38 mg/dL above high threshold 6 - 23 [facility] [address] [place] Work Phone: Laboratory - Hematology and Cell countson 07-01-2021 Erythrocyte distribution width (RBC) [Ratio] 14.1 % See Below [facility] [address] [place] Work Phone: Comment on above: Reference Range: 11. 5 - 14.5 Hematocrit (Bld) [Volume fraction] 34.6 % below low threshold See Below [facility] [address] [place] Work Phone: Comment on above: Reference Range: 41. 0 - 52.0 Hemoglobin (Bld) [Mass/Vol] 10.7 g/dL below low threshold See Below [facility] [address] [place] Work Phone: Comment on above: Reference Range: 13. 5 - 17.5 MCHC (RBC) [Mass/Vol] 30.9 g/dL below low threshold See Below [facility] [address] [place] Work Phone: Comment on above: Reference Range: 32. 0 - 36.0 MCV (RBC) [Entitic vol] 90 fL 80 - 100 [facility] [address] [place] Work Phone: Platelets (Bld) [#/Vol] 157 10*3/uL 150 - 450 [facility] [address] [place] Work Phone: RBC (Bld) [...] RACE VARIABLE FOR THE IDMS-TRACEABLE CREATININE METHODS.https://jasn.asnjournals.org/content// ASN.0958078135 0.0 {/100_WBC} 0.0-0.0 [facility] [address] [place] Work Phone: Tacrolimuson 07-01-2021 Tacrolimus (Bld) [Mass/Vol] 9.3 ng/mL 2.0 - 15.0 [facility] [address] [place] Work Phone: Comment on above: NOTE: Result was obt ained using a chemiluminescent microparticle immunoassay (CMIA) on the [employer] i system.Optimal therapeutic ranges for immuno-suppressant drugs [...] high threshold 74 - 99 [facility] [address] [place] Work Phone: [phone] Glucose [Mass/Vol] 289 mg/dL above high threshold 74 - 99 [facility] [address] [place] Work Phone: [phone] Glucose [Mass/Vol] 236 mg/dL above high threshold 74 - 99 [facility] [address] [place] Work Phone: [phone] Anion gap [Moles/Vol] 17 mmol/L 10 - 20 [facility] [address] [place] Work Phone: [phone] Calcium [Mass/Vol] 8.6 mg/dL 8.6 - 10.6 [facility] [address] [place] Work Phone: [phone] Chloride [Moles/Vol] 100 mmol/L 98 - 107 [facility] [address] [place] Work Phone: [phone] CO2 [Moles/Vol] 28 mmol/L 21 - 32 [facility] [address] [place] Work Phone: [phone] Creatinine [Mass/Vol] 2.26 mg/dL above high threshold See Below [facility] [address] [place] Work Phone: [phone] Comment on above: Reference Range: 0.5 0 - 1.30 Glucose [Mass/Vol] 205 mg/dL above high threshold 74 - 99 [facility] [address] [place] Work Phone: [phone] Potassium [Moles/Vol] 3.8 mmol/L 3.5 - 5.3 [facility] [address] [place] Work Phone: Sodium [Moles/Vol] 141 mmol/L 136 - 145 [facility] [address] [place] Work Phone: Urea nitrogen [Mass/Vol] 39 mg/dL above high threshold 6 - 23 [facility] [address] [place] Work Phone: Laboratory - Hematology and Cell countson 06-30-2021 Erythrocyte distribution width (RBC) [Ratio] 14.3 % See Below [facility] [address] [place] Work Phone: Comment on above: Reference Range: 11. 5 - 14.5 Hematocrit (Bld) [Volume fraction] 33.5 % below low threshold See Below [facility] [address] [place] Work Phone: Comment on above: Reference Range: 41. 0 - 52.0 Hemoglobin (Bld) [Mass/Vol] 10.5 g/dL below low threshold See Below [facility] [address] [place] Work Phone: Comment on above: Reference Range: 13. 5 - 17.5 MCHC (RBC) [Mass/Vol] 31.3 g/dL below low threshold See Below [facility] [address] [place] Work Phone: Comment on above: Reference Range: 32. 0 - 36.0 MCV (RBC) [Entitic vol] 91 fL 80 - 100 [facility] [address] [place] Work Phone: Platelets (Bld) [#/Vol] 141 10*3/uL below lo w threshold 150 - 450 [facility] [address] [place] Work Phone: RBC (Bld) [#/Vol] 3.70 {x10E12/L} below low threshold See Below [facility] [address] [place] Work Phone: Comment on [...] RACE VARIABLE FOR THE IDMS-TRACEABLE CREATININE METHODS.https://jasn.asnjournals.org/content/early/ ASN.4944062061 0.0 {/100_WBC} 0.0-0.0 [facility] [address] [place] Work Phone: Tacrolimuson 06-30-2021 Tacrolimus (Bld) [Mass/Vol] 7.7 ng/mL 2.0 - 15.0 [facility] [address] [place] Work Phone: Comment on above: NOTE: Result was obt ained using a chemiluminescent microparticle immunoassay (CMIA) on the [employer] i system.Optimal therapeutic ranges for immuno-suppressant drugs depend upon an individualpatient's current clinical state, type oforgan transplant, time post-transplant,co-administration of other immunosuppressants,and other clinical factors. The results ofthis test should be correlated with additionalclinical and laboratory data before changesin treatment regimens are made. [facility] Venous Duplex Ultra sound for DVTon 06-30-2021 [facility] Venous Duplex Ultrasound for DVT [facility] [address] [place] Work Phone: Laboratory - Chemistry and C hemistry - challengeon 06-29-2021 Glucose [Mass/Vol] 252 mg/dL above high threshold 74 - 99 [facility] [address] [place] Work Phone: Glucose [Mass/Vol] 225 mg/dL above high threshold 74 - 99 [facility] [address] [place] Work Phone: [phone] Glucose [Mass/Vol] 283 mg/dL above high threshold 74 - 99 [facility] [address] [place] Work Phone: [phone] Anion gap [Moles/Vol] 16 mmol/L 10 - 20 [facility] [address] [place] Work Phone: [phone] Calcium [Mass/Vol] 8.7 mg/dL 8.6 - 10.6 [facility] [address] [place] Work Phone: [phone] Chloride [Moles/Vol] 104 mmol/L 98 - 107 [facility] [address] [place] Work Phone: [phone] CO2 [Moles/Vol] 28 mmol/L 21 - 32 [facility] [address] [place] Work Phone: [phone] Creatinine [Mass/Vol] 1.97 mg/dL above high threshold See Below [facility] [address] [place] Work Phone: [phone] Comment on above: Reference Range: 0.5 0 - 1.30 Glucose [Mass/Vol] 185 mg/dL above high threshold 74 - 99 [facility] [address] [place] Work Phone: [phone] Potassium [Moles/Vol] 3.9 mmol/L 3.5 - 5.3 [facility] [address] [place] Work Phone: [phone] Sodium [Moles/Vol] 144 mmol/L 136 - 145 [facility] [employer] [address] [place] Work Phone: [phone] Urea nitrogen [Mass/Vol] 35 mg/dL above high threshold 6 - 23 [facility] [address] [place] Work Phone: [phone] Glucose [Mass/Vol] 186 mg/dL above high threshold 74 - 99 [facility] [address] [place] Work Phone: [phone] Laboratory - Hematology and Cell countson 06-29-2021 Erythrocyte distribution width (RBC) [Ratio] 14.3 % See Below [facility] [address] [place] Work Phone: Comment on above: Reference Range: 11. 5 - 14.5 Hematocrit (Bld) [Volume fraction] 35.8 % below low threshold See Below [facility] [address] [place] Work Phone: Comment on above: Reference Range: 41. 0 - 52.0 Hemoglobin (Bld) [Mass/Vol] 11.0 g/dL below low threshold See Below [facility] [address] [place] Work Phone: Comment on above: Reference Range: 13. 5 - 17.5 MCHC (RBC) [Mass/Vol] 30.7 g/dL below low threshold See Below [facility] [address] [place] Work Phone: Comment on above: Reference Range: 32. 0 - 36.0 MCV (RBC) [Entitic vol] 90 fL 80 - 100 [facility] [address] [place] Work Phone: Platelets (Bld) [#/Vol] 142 10*3/uL below lo w threshold 150 - 450 [facility] [address] [place] Work Phone: RBC (Bld) [#/Vol] 3.96 {x10E12/L} below low threshold See Below [facility] [address] [place] Work Phone: Comment on above: Reference Range: 4.5 0 - 5.90 WBC (Bld) [#/Vol] 7.0 10*3/uL 4.4 - 11.3 [facility] [address] [place] Work Phone: Magnesium, Serumon Magnesium [Mass/Vol] 1.80 mg/dL See Below [facility] [address] [place] Work Phone: Comment on above: Reference Range: 1.6 0 - 2.40 No Panel Informationon 06-29 34 {mL/min/1.73m2} Abnormal >90 [facility] [address] [place] Work Phone: Comment on above: CALCULATIONS OF ERNST MATED GFR ARE PERFORMED USING THE 2020 CKD-EPI STUDY REFIT EQUATION WITHOUT THE RACE VARIABLE FOR THE IDMS-TRACEABLE CREATININE METHODS.https://jasn.asnjournals.org/content/early// ASN.2371267215 0.0 {/100_WBC} 0.0-0.0 [facility] [address] [place] Work Phone: Tacrolimuson 06-29-2021 Tacrolimus (Bld) [Mass/Vol] 8.4 ng/mL 2.0 - 15.0 [facility] [address] [place] Work Phone: Comment on above: NOTE: Result was obt ained using a chemiluminescent microparticle immunoassay (CMIA) on the [employer] i system.Optimal therapeutic ranges for immuno-suppressant drugs [...] high threshold 74 - 99 [facility] [address] [place] Work Phone: Glucose [Mass/Vol] 239 mg/dL above high threshold 74 - 99 [facility] [address] [place] Work Phone: Glucose [Mass/Vol] 215 mg/dL above high threshold 74 - 99 [facility] [address] [place] Work Phone: Anion gap [Moles/Vol] 14 mmol/L 10 - 20 [facility] [address] [place] Work Phone: Calcium [Mass/Vol] 8.5 mg/dL below low threshold 8.6 - 10.6 [facility] [address] [place] Work Phone: Chloride [Moles/Vol] 105 mmol/L 98 - 107 [facility] [address] [place] Work Phone: [phone] CO2 [Moles/Vol] 29 mmol/L 21 - 32 [facility] [address] [place] Work Phone: [phone] Creatinine [Mass/Vol] 1.96 mg/dL above high threshold See Below [facility] [address] [place] Work Phone: Comment on above: Reference Range: 0.5 0 - 1.30 Glucose [Mass/Vol] 159 mg/dL above high threshold 74 - 99 [facility] [address] [place] Work Phone: [phone] Potassium [Moles/Vol] 3.8 mmol/L 3.5 - 5.3 [facility] [address] [place] Work Phone: [phone] Sodium [Moles/Vol] 144 mmol/L 136 - 145 [facility] [address] [place] Work Phone: Urea nitrogen [Mass/Vol] 36 mg/dL above high threshold 6 - 23 [facility] [address] [place] Work Phone: Glucose [Mass/Vol] 159 mg/dL above high threshold 74 - 99 [facility] [address] [place] Work Phone: Laboratory - Hematology and Cell countson 06-28-2021 Erythrocyte distribution width (RBC) [Ratio] 14.3 % See Below [facility] [address] [place] Work Phone: Comment on above: Reference Range: 11. 5 - 14.5 Hematocrit (Bld) [Volume fraction] 33.8 % below low threshold See Below [facility] [address] [place] Work Phone: Comment on above: Reference Range: 41. 0 - 52.0 Hemoglobin (Bld) [Mass/Vol] 10.4 g/dL below low threshold See Below [facility] [address] [place] Work Phone: Comment on above: Reference Range: 13. 5 - 17.5 MCHC (RBC) [Mass/Vol] 30.8 g/dL below low threshold See Below [facility] [address] [place] Work Phone: Comment on above: Reference Range: 32. 0 - 36.0 MCV (RBC) [Entitic vol] 90 fL 80 - 100 [facility] [employer] [address] [place] Work Phone: Platelets (Bld) [#/Vol] 133 10*3/uL below lo w threshold 150 - 450 [facility] [address] [place] Work Phone: RBC (Bld) [#/Vol] 3.75 {x10E12/L} below low threshold See Below [facility] [employer] [address] [place] Work Phone: Comment on above: Reference Range: 4.5 0 - 5.90 WBC (Bld) [#/Vol] 5.7 10*3/uL 4.4 - 11.3 [facility] [address] [place] Work Phone: Lactate, Levelon 06-28-2021 Lactate [Moles/Vol] 0.6 mmol/L 0.4 - 2.0 [facility] [address] [place] Work Phone: Comment on above: Venipuncture immedia tely after or during the administration of Metamizole may lead to falsely low results. Testing should be performed immediately prior to Metamizole dosing. No Panel Informationon 06-28 34 {mL/min/1.73m2} Abnormal >90 [facility] [address] [place] Work Phone: Comment on above: CALCULATIONS OF ERNST MATED GFR ARE PERFORMED USING THE 2020 CKD-EPI STUDY REFIT EQUATION WITHOUT THE RACE VARIABLE FOR THE IDMS-TRACEABLE CREATININE METHODS.https://jasn.asnjournals.org/content/early/ ASN.2985014352 0.0 {/100_WBC} 0.0-0.0 [facility] [address] [place] Work Phone: Tacrolimuson 06-28-2021 Tacrolimus (Bld) [Mass/Vol] 10.4 ng/mL 2.0 - 15.0 [facility] [address] [place] Work Phone: Comment on above: NOTE: Result was obt ained using a chemiluminescent microparticle immunoassay (CMIA) on the [employer] i system.Optimal therapeutic ranges for immuno-suppressant drugs depend upon an individualpatient's current clinical state, type oforgan transplant, time post-transplant,co-administration of other immunosuppressants,and other clinical factors. The results ofthis test should be correlated with additionalclinical and laboratory data before changesin treatment regimens are made. Complete Blood Count + Diffe rentialon 06-27-2021 Basophils/100 WBC (Bld) 0.5 % 0.0 - 2.0 [facility] [address] [place] Work Phone: Erythrocyte distribution width (RBC) [Ratio] 14.3 % See Below [facility] [address] [place] Work Phone: Comment on [...] (Bld) 13.1 % See Below [facility] [employer] [address] [place] Work Phone: Comment on above: Reference Range: 13. 0 - 44.0 MCHC (RBC) [Mass/Vol] 30.7 g/dL below low threshold See Below [facility] [address] [place] Work Phone: Comment on above: Reference Range: 32. 0 - 36.0 MCV (RBC) [Entitic vol] 92 fL 80 - 100 [facility] [address] [place] Work Phone: Monocytes/100 WBC (Bld) 9.0 % 2.0 - 10.0 [facility] [employer] [address] [place] Work Phone: Neutrophils/100 WBC (Bld) 72.5 % See Below [facility] [address] [place] Work Phone: Comment on above: Reference Range: 40. 0 - 80.0 Platelets (Bld) [#/Vol] 137 10*3/uL below lo w threshold 150 - 450 [facility] [address] [place] Work Phone: RBC (Bld) [#/Vol] 3.67 {x10E12/L} below low threshold See Below [facility] [address] [place] Work Phone: Comment on above: Reference Range: 4.5 0 - 5.90 WBC (Bld) [#/Vol] 6.4 10*3/uL 4.4 - 11.3 [facility] [address] [place] Work Phone: Complete Blood Count + Differential 0.03 {x10E9/L} See Below [facility] [address] [place] Work Phone: Comment on above: Reference Range: 0.0 0 - 0.10 Complete Blood Count + Differential 0.28 {x10E9/L} See Below [facility] [employer] [address] [place] Work Phone: Comment on above: Reference Range: 0.0 0 - 0.40 Complete Blood Count + Differential 0.57 {x10E9/L} See Below [facility] [address] [place] Work Phone: Comment on above: Reference Range: 0.0 5 - 0.80 Complete Blood Count + Differential 0.83 {x10E9/L} See Below [facility] [employer] [address] [place] Work Phone: Comment on above: Reference Range: 0.8 0 - 3.00 Complete Blood Count + Differential 4.61 {x10E9/L} See Below [facility] [address] [place] Work Phone: Comment on above: Reference Range: 1.6 0 - 5.50 Complete Blood Count + Differential 4.4 % 0.0 - 6.0 [facility] [facility] [employer] [address] [place] Work Phone: Complete Blood Count + Differential 0.5 % 0.0 - 0.9 [facility] [employer] [facility] [employer] [address] [place] Work Phone: Comment on above: Immature Granulocyte Count (IG) includes promyelocytes, myelocytes and metamyelocytes but does not include bands. Percent differential counts (%) should be interpreted in the context of the absolute cell counts (cells/L). Complete Blood Count + Differential 0.0 {/100_WBC} 0.0-0.0 [facility] [address] [place] Work Phone: Glucose Glucometer (dC) [M ass/Vol]Ordered By: Yoshi Wu on 06-27-2021 Glucose [Mass/Vol] 263 mg/dL [facility] Comment on above: Random Glucose Refer [...] 57 U/L 33 - 136 [facility] [address] [place] Work Phone: ALT With P-5'-P [Catalytic activity/Vol] 4 U/L below low threshold 10 - 52 [facility] [address] [place] Work Phone: Comment on above: Patients treated wit h Sulfasalazine may generate falsely decreased results for ALT. Anion gap [Moles/Vol] 18 mmol/L 10 - 20 [facility] [address] [place] Work Phone: AST With P-5'-P [Catalytic activity/Vol] 10 U/L 9 - 39 [facility] [address] [place] Work Phone: Bilirubin [Mass/Vol] 0.3 mg/dL 0.0 - 1.2 [facility] [address] [place] Work Phone: Calcium [Mass/Vol] 8.3 mg/dL below low threshold 8.6 - 10.6 [facility] [address] [place] Work Phone: Chloride [Moles/Vol] 102 mmol/L 98 - 107 [facility] [address] [place] Work Phone: CO2 [Moles/Vol] 26 mmol/L 21 - 32 [facility] [address] [place] Work Phone: Creatinine [Mass/Vol] 1.85 mg/dL above high threshold See Below [facility] [address] [place] Work Phone: Comment on above: Reference Range: 0.5 0 - 1.30 Glucose [Mass/Vol] 177 mg/dL above high threshold 74 - 99 [facility] [address] [place] Work Phone: Potassium [Moles/Vol] 3.7 mmol/L 3.5 - 5.3 [facility] [address] [place] Work Phone: Protein [Mass/Vol] 5.7 g/dL below low threshold 6.4 - 8.2 [facility] [address] [place] Work Phone: Sodium [Moles/Vol] 142 mmol/L 136 - 145 [facility] [address] [place] Work Phone: Urea nitrogen [Mass/Vol] 37 mg/dL above high threshold 6 - 23 [facility] [address] [place] Work Phone: Glucose [Mass/Vol] 178 mg/dL above high threshold 74 - 99 [facility] [address] [place] Work Phone: Glucose [Mass/Vol] 213 mg/dL above high threshold 74 - 99 [facility] [address] [place] Work Phone: No Panel Informationon 06-27 37 {mL/min/1.73m2} Abnormal >90 [facility] [address] [place] Work Phone: Comment on above: CALCULATIONS OF ERNST MATED GFR ARE PERFORMED USING THE 2020 CKD-EPI STUDY REFIT EQUATION WITHOUT THE RACE VARIABLE FOR THE IDMS-TRACEABLE CREATININE METHODS.https://jasn.asnjournals.org/content// ASN.7561899704 No Panel InformationOrdered By: Yoshi Wu on 06-27-2021 Bedside Glucose Comment Glu2: cleaned meter [facility] Automated erythrocytes count in urine sediment (number/area)Ordered By: Audra Quinteros on 06-26-2021 RBC Auto (Urine sed) [#/Area] 0-1 [HPF] [facility] Automated leukocytes count i n urine sediment (number/area)Ordered By: Audra Quinteros on 06-26-2021 WBC Auto (Urine sed) [#/Area] 0-1 [HPF] [facility] Bilirubin Test strip Ql (U)O rdered By: Audra Quinteros on 06-26-2021 Bilirubin Ql (U) Negative Negative [facility] COVID-19 Positive/NegativeOr dered By: Omid Myrick on 06-26-2021 SARS-CoV-2 (COVID-19) N gene JOYCE+probe Ql (Resp) Negative Negative [facility] Comment on above: Testing for SARS-CoV -2 by RT-PCRThis test was developed and its performance characteristics determined by [employer] and validated at the [facility]. This test has not been FDA cleared [...] Quinteros on 06-26-2021 Color (U) Yellow Yellow [facility] Creatinine [Mass/volume] in UrineOrdered By: Audra Quinteros on 06-26-2021 Creatinine (U) [Mass/Vol] 71.5 mg/dL [facility] Comment on above: No reference range e stablished Creatinine and Glomerular fi ltration rate.predicted panel (S/P/Bld)Ordered By: Audra Quinteros on 06-26-2021 Creatinine [Mass/Vol] 1.99 mg/dL 0.64-1.27 [facility] Estimated glomerular filtrat ion rate (GFR) non- AmericanOrdered By: Audra Quinteros on 06-26-2021 GFR/1.73 sq M.predicted among non-blacks MDRD (S/P/Bld) [Vol rate/Area] 33 mL/Min [facility] Ketones Auto test strip (U) [Mass/Vol]Ordered By: Audra Quinteros on 06-26-2021 Ketones (U) [Mass/Vol] Negative Negative [facility] Laboratory - Microbiology an d Antimicrobial susceptibilityOrdered By: Omid Myrick on 06-26-2021 SARS-CoV-2 (COVID-19) RNA JOYCE+probe Ql (Unsp spec) N/A [facility] Laboratory - UrinalysisOrder ed By: Audra Quinteros on 06-26-2021 Hyaline casts LM Ql (Urine sed) 0-8 [LPF] [facility] Nitrite Test strip Ql (U)Ord ered By: Audra Quinteros on 06-26-2021 Nitrite Ql (U) Negative Negative [facility] No Panel InformationOrdered By: Audra Quinteros on 06-26-2021 Estimated GFR () 40 mL/Min [facility] Comment on above: GFR estimated refere nce range: According to KDOQI guidelines, <60 ml/min/1.73m2 is sufficient to diagnose a patient with chronic kidney disease. Pharmacy Creatinine Clearance (Chem 39.80 [facility] Protein Auto test strip (U) [Mass/Vol]Ordered By: Audra Quinteros on 06-26-2021 Protein (U) [Mass/Vol] 300 mg/dL Negative [facility] Serum or plasma calcium abhijit urement (mass/volume)Ordered By: Audra Qiunteros on 06-26-2021 Calcium [Mass/Vol] 8.9 mg/dL 8.2-10.2 [facility] Serum or plasma chloride marylin surement (moles/volume)Ordered By: Audra Quinteros on 06-26-2021 Chloride [Moles/Vol] 105 mmol/L 95-114 [facility] Serum or plasma glucose abhijit urement (mass/volume)Ordered By: Audra Quinteros on 06-26-2021 Glucose [Mass/Vol] 194 mg/dL 70-100 [facility] Comment on above: ADA recommended refe rence rangeRandom Glucose Reference Range is dependent on time and content of last meal. Glucose of more than 200 mg/dL in a nonstressed, ambulatory subject supports the diagnosis of Diabetes Mellitus. Serum or plasma potassium me asurement (moles/volume)Ordered By: Omid Myrick on 06-26-2021 Potassium [Moles/Vol] 4.0 mmol/L 3.5-5.1 [facility] Serum or plasma sodium measu rement (moles/volume)Ordered By: Audra Quinteros on 06-26-2021 Sodium [Moles/Vol] 140 mmol/L 136-146 [facility] Serum or plasma total carbon dioxide measurement (moles/volume)Ordered By: Audra Quinteros on 06-26-2021 CO2 [Moles/Vol] 23.8 mmol/L 22.0-30.0 [facility] Serum or plasma urea nitroge n measurement (mass/volume)Ordered By: Audra Quinteros on 06-26-2021 Urea nitrogen [Mass/Vol] 39 mg/dL 9-23 [facility] Specific gravity Auto test s trip (U) [Rel density]Ordered By: Audra Quinteros on 06-26-2021 Specific gravity (U) [Rel density] 1.015 1.001-1.03 0 [facility] Squamous epithelial cells de tection in urine sediment by light microscopyOrdered By: Audra Quinteros on 06-26-2021 Epithelial cells.squamous LM Ql (Urine sed) None seen [HPF] [facility] Urine bacteria detection by automated methodOrdered By: Audra Quinteros on 06-26-2021 Bacteria Auto Ql (U) None seen None Seen [facility] Urine clarity by refractomet ry automatedOrdered By: Audra Quinteros on 06-26-2021 Clarity Refractometry automated (U) Clear Clear [facility] Urine glucose measurement by automated test strip (mass/volume)Ordered By: Audra Quinteros on 06-26-2021 Glucose Auto test strip (U) [Mass/Vol] Normal mg/dL Normal [facility] Urine hemoglobin detection b y automated test stripOrdered By: Audra Quinteros on 06-26-2021 Hemoglobin Auto test strip Ql (U) Negative Negative [facility] Urine leukocyte esterase det ection by automated test stripOrdered By: Audra Quinteros on 06-26-2021 Leukocyte esterase Auto test strip Ql (U) Negative Negative [facility] Urine sodium measurement (mo les/volume)Ordered By: Audra Quinteros on 06-26-2021 Sodium (U) [Moles/Vol] 94 mmol/L [facility] Comment on above: No reference range e stablished Urobilinogen Auto test strip (U) [Mass/Vol]Ordered By: Audra Quinteros on 06-26-2021 Urobilinogen (U) [Mass/Vol] Normal mg/dL Normal [facility] pH Auto test strip (U)Ordere d By: Audra Quinteros on 06-26-2021 pH (U) 5.5 [pH] 5.0-9.0 [facility] Activated partial thrombopla stin time (aPTT) in platelet poor plasma by coagulation aOrdered By: Andrew Hernández on 06-25-2021 aPTT Coag (PPP) [Time] 33.4 s 25.1-36.5 [facility] Albumin [Mass/volume] in Ser um or PlasmaOrdered By: Andrew Hernández on 06-25-2021 Albumin [Mass/Vol] 3.4 g/dL 3.2-5.5 [facility] Basophils Auto (Bld) [#/Vol] Ordered By: Andrew Hernández on 06-25-2021 Basophils (Bld) [#/Vol] 0.0 10*3/uL 0.0-0.2 [facility] Basophils/100 WBC Auto (Bld) Ordered By: Andrew Hernández on 06-25-2021 Basophils/100 WBC (Bld) 0.6 % [facility] Blood hemoglobin measurement (mass/volume)Ordered By: Andrew Hernández on 06-25-2021 Hemoglobin (Bld) [Mass/Vol] 11.8 g/dL 13.0-17.0 [facility] Blood leukocytes automated c ount (number/volume)Ordered By: Andrew Hernández on 06-25-2021 WBC (Bld) [#/Vol] 7.5 10*3/uL 4.5-11.0 [facility] COVID-19 SOFIAOrdered By: Prasanna Hernández on 06-25-2021 SARS-CoV+SARS-CoV-2 (COVID-19) Ag IA.rapid Ql (Resp) Negative Negative [facility] Comment on above: This is a duplicate Jessi SARS Antigen (GABI) result to be used for statistical tracking purpose only. Creatinine and Glomerular fi ltration rate.predicted panel (S/P/Bld)Ordered By: Andrew Hernández on 06-25-2021 Creatinine [Mass/Vol] 2.25 mg/dL 0.64-1.27 [facility] Eosinophils Auto (Bld) [#/Vo l]Ordered By: Andrew Hernández on 06-25-2021 Eosinophils (Bld) [#/Vol] 0.3 10*3/uL 0.0-0.45 [facility] Eosinophils/100 WBC Auto (Bl d)Ordered By: Andrew Hernández on 06-25-2021 Eosinophils/100 WBC (Bld) 4.6 % [facility] Erythrocyte distribution wid th Auto (RBC) [Ratio]Ordered By: Andrew Hernández on 06-25-2021 Erythrocyte distribution width (RBC) [Ratio] 16.1 % 12.0-14.8 [facility] Erythrocyte sedimentation ra te by Photometric methodOrdered By: Andrew Hernández on 06-25-2021 ESR Photometric method (Bld) [Velocity] 39 mm/hr 0-19 [facility] Estimated glomerular filtrat ion rate (GFR) non- AmericanOrdered By: Andrew Hernández on 06-25-2021 GFR/1.73 sq M.predicted among non-blacks MDRD (S/P/Bld) [Vol rate/Area] 28 mL/Min [facility] Globulin Calc (S) [Mass/Vol] Ordered By: Andrew Hernández on 06-25-2021 Globulin (S) [Mass/Vol] 3.2 g/dL [facility] Hematocrit Auto (Bld) [Volum e fraction]Ordered By: Andrew Hernández on 06-25-2021 Hematocrit (Bld) [Volume fraction] 36.2 % 38.8-50.0 [facility] Laboratory - Chemistry and C hemistry - challengeOrdered By: Andrew Hernández on 06-25-2021 Natriuretic peptide B (Bld) [Mass/Vol] 165.0 pg/mL 5-100 [facility] Laboratory - CoagulationOrde red By: Andrew Hernández on 06-25-2021 PT Coag (PPP) [Time] 11.9 s 9.0-12.9 [facility] Laboratory - Hematology and Cell countsOrdered By: Andrew Hernández on 06-25-2021 Nucleated RBC/100 WBC (Bld) [Ratio] 0.1 % 0-0.5 [facility] Lymphocytes Auto (Bld) [#/Vo l]Ordered By: Andrew Hernández on 06-25-2021 Lymphocytes (Bld) [#/Vol] 1.0 10*3/uL 1.00-4.8 [facility] Lymphocytes/100 WBC Auto (Bl d)Ordered By: Andrew Hernández on 06-25-2021 Lymphocytes/100 WBC (Bld) 12.9 % [facility] MCH Auto (RBC) [Entitic mass ]Ordered By: Andrew Hernández on 06-25-2021 MCH (RBC) [Entitic mass] 28.1 pg 27.5-35.2 [facility] MCHC Auto (RBC) [Mass/Vol]Or dered By: Andrew Hernández on 06-25-2021 MCHC (RBC) [Mass/Vol] 32.7 g/dL 32.5-35.6 [facility] MCV Auto (RBC) [Entitic vol] Ordered By: Andrew Hernández on 06-25-2021 MCV (RBC) [Entitic vol] 86.0 fL 83.5-101 F [facility] Monocytes Auto (Bld) [#/Vol] Ordered By: Andrew Hernández on 06-25-2021 Monocytes (Bld) [#/Vol] 0.5 10*3/uL 0.0-0.8 [facility] Monocytes/100 WBC Auto (Bld) Ordered By: Andrew Hernández on 06-25-2021 Monocytes/100 WBC (Bld) 7.3 % [facility] Neutrophils Auto (Bld) [#/Vo l]Ordered By: Andrew Hernández on 06-25-2021 Neutrophils (Bld) [#/Vol] 5.6 10*3/uL 1.8-7.7 [facility] Neutrophils/100 WBC Auto (Bl d)Ordered By: Andrew Hernández on 06-25-2021 Neutrophils/100 WBC (Bld) 74.6 % [facility] No Panel InformationOrdered By: Andrew Hernández on 06-25-2021 SARS Antigen (LFIA) [facility] Estimated GFR () 34 mL/Min [facility] Comment on above: GFR estimated refere nce range: According to KDOQI guidelines, <60 ml/min/1.73m2 is sufficient to diagnose a patient with chronic kidney disease. Pharmacy Creatinine Clearance (Chem 365.00 [facility] Platelet mean volume Auto (B ld) [Entitic vol]Ordered By: Andrew Hernández on 06-25-2021 Platelet mean volume (Bld) [Entitic vol] 10.0 fL 6.6-10.1 [facility] Platelet poor plasma interna tional normalized ratio (INR) by coagulation assay (relatOrdered By: Andrew Hernández on 06-25-2021 INR Coag (PPP) [Relative time] 1.1 {INR} [facility] Comment on above: INR Therapeutic Rang e [...] 06-25-2021 Platelets (Bld) [#/Vol] 171 10*3/uL 150-450 [facility] Comment on above: Delta: 119 on 0453 Protein [Mass/volume] in Ser um or PlasmaOrdered By: Andrew Hernández on 06-25-2021 Protein [Mass/Vol] 6.6 g/dL 6.1-7.9 [facility] RBC Auto (Bld) [#/Vol]Ordere d By: Andrew Hernández on 06-25-2021 RBC (Bld) [#/Vol] 4.21 10*6/uL 3.90-5.60 [facility] Serum or plasma C reactive p rotein measurement (mass/volume)Ordered By: Andrew Hernández on 06-25-2021 CRP [Mass/Vol] 0.9 mg/dL 0.0-1.0 [facility] Serum or plasma alanine lopez otransferase measurement without P-5'-P (enzymatic activiOrdered By: Andrew Hernández on 06-25-2021 ALT No additional P-5'-P [Catalytic activity/Vol] 13 U/L 10-60 [facility] Serum or plasma albumin/glob ulin mass ratioOrdered By: Andrew Hernández on 06-25-2021 Albumin/Globulin [Mass ratio] 1.1 {ratio} [facility] Serum or plasma alkaline cande sphatase measurement (enzymatic activity/volume)Ordered By: Andrew Hernández on 06-25-2021 ALP [Catalytic activity/Vol] 57 U/L 32-92 [facility] Serum or plasma aspartate am inotransferase measurement (enzymatic activity/volume)Ordered By: Andrew Hernández on 06-25-2021 AST [Catalytic activity/Vol] 15 U/L 10-42 [facility] Serum or plasma calcium abhijit urement (mass/volume)Ordered By: Andrew Hernández on 06-25-2021 Calcium [Mass/Vol] 9.2 mg/dL 8.2-10.2 [facility] Serum or plasma chloride marylin surement (moles/volume)Ordered By: Andrew Hernández on 06-25-2021 Chloride [Moles/Vol] 106 mmol/L 95-114 [facility] Serum or plasma glucose abhijit urement (mass/volume)Ordered By: Andrew Hernández on 06-25-2021 Glucose [Mass/Vol] 177 mg/dL 70-100 [facility] Comment on above: ADA recommended refe rence rangeRandom Glucose Reference Range is dependent on time and content of last meal. Glucose of more than 200 mg/dL in a nonstressed, ambulatory subject supports the diagnosis of Diabetes Mellitus. Serum or plasma potassium me asurement (moles/volume)Ordered By: Andrew Hernández on 06-25-2021 Potassium [Moles/Vol] 4.2 mmol/L 3.5-5.1 [facility] Serum or plasma sodium measu rement (moles/volume)Ordered By: Andrew Hernández on 06-25-2021 Sodium [Moles/Vol] 142 mmol/L 136-146 [facility] Serum or plasma total biliru bin measurement (mass/volume)Ordered By: Andrew Hernández on 06-25-2021 Bilirubin [Mass/Vol] 0.4 mg/dL 0.3-1.2 [facility] Serum or plasma total carbon dioxide measurement (moles/volume)Ordered By: Andrew Hernández on 06-25-2021 CO2 [Moles/Vol] 24.1 mmol/L 22.0-30.0 [facility] Serum or plasma urea nitroge n measurement (mass/volume)Ordered By: Andrew Hernández on 06-25-2021 Urea nitrogen [Mass/Vol] 41 mg/dL 9-23 [facility] Troponin I.cardiac [Mass/vol ume] in Serum or Plasma by High sensitivity methodOrdered By: Andrew Hernández on 06-25-2021 Troponin I.cardiac High sensitivity method [Mass/Vol] 12 pg/mL 0-20 [facility] Albumin [Mass/volume] in Ser um or PlasmaOrdered By: Julee Davies on 06-24-2021 Albumin [Mass/Vol] 2.9 g/dL 3.2-5.5 [facility] Basophils Auto (Bld) [#/Vol] Ordered By: Julee Davies on 06-24-2021 Basophils (Bld) [#/Vol] 0.0 10*3/uL 0.0-0.2 [facility] Basophils/100 WBC Auto (Bld) Ordered By: Julee Davies on 06-24-2021 Basophils/100 WBC (Bld) 0.6 % [facility] Blood hemoglobin measurement (mass/volume)Ordered By: Julee Davies on 06-24-2021 Hemoglobin (Bld) [Mass/Vol] 10.8 g/dL 13.0-17.0 [facility] Blood leukocytes automated c ount (number/volume)Ordered By: Julee Davies on 06-24-2021 WBC (Bld) [#/Vol] 6.6 10*3/uL 4.5-11.0 [facility] Creatinine and Glomerular fi ltration rate.predicted panel (S/P/Bld)Ordered By: Julee Davies on 06-24-2021 Creatinine [Mass/Vol] 2.17 mg/dL 0.64-1.27 [facility] Eosinophils Auto (Bld) [#/Vo l]Ordered By: Julee Davies on 06-24-2021 Eosinophils (Bld) [#/Vol] 0.3 10*3/uL 0.0-0.45 [facility] Eosinophils/100 WBC Auto (Bl d)Ordered By: Julee Davies on 06-24-2021 Eosinophils/100 WBC (Bld) 5.2 % [facility] Erythrocyte distribution wid th Auto (RBC) [Ratio]Ordered By: Julee Davies on 06-24-2021 Erythrocyte distribution width (RBC) [Ratio] 15.8 % 12.0-14.8 [facility] Estimated glomerular filtrat ion rate (GFR) non- AmericanOrdered By: Julee Davies on 06-24-2021 GFR/1.73 sq M.predicted among non-blacks MDRD (S/P/Bld) [Vol rate/Area] 30 mL/Min [facility] Globulin Calc (S) [Mass/Vol] Ordered By: Julee Davies on 06-24-2021 Globulin (S) [Mass/Vol] 2.4 g/dL F [facility] Hematocrit Auto (Bld) [Volum e fraction]Ordered By: Julee Davies on 06-24-2021 Hematocrit (Bld) [Volume fraction] 33.0 % 38.8-50.0 [facility] Laboratory - Chemistry and C hemistry - challengeOrdered By: Julee Davies on 06-24-2021 Magnesium [Mass/Vol] 1.9 mg/dL 1.6-2.6 [facility] Natriuretic peptide B (Bld) [Mass/Vol] 224.0 pg/mL 5-100 [facility] Laboratory - Hematology and Cell countsOrdered By: Julee Davies on 06-24-2021 Nucleated RBC/100 WBC (Bld) [Ratio] 0.1 % 0-0.5 [facility] Lymphocytes Auto (Bld) [#/Vo l]Ordered By: Julee Davies on 06-24-2021 Lymphocytes (Bld) [#/Vol] 0.8 10*3/uL 1.00-4.8 [facility] Lymphocytes/100 WBC Auto (Bl d)Ordered By: Julee Davies on 06-24-2021 Lymphocytes/100 WBC (Bld) 11.4 % [facility] MCH Auto (RBC) [Entitic mass ]Ordered By: Julee Davies on 06-24-2021 MCH (RBC) [Entitic mass] 27.7 pg 27.5-35.2 [facility] MCHC Auto (RBC) [Mass/Vol]Or dered By: Julee Davies on 06-24-2021 MCHC (RBC) [Mass/Vol] 32.7 g/dL 32.5-35.6 [facility] MCV Auto (RBC) [Entitic vol] Ordered By: Julee Davies on 06-24-2021 MCV (RBC) [Entitic vol] 84.6 fL 83.5-101 F [facility] Monocytes Auto (Bld) [#/Vol] Ordered By: Julee Davies on 06-24-2021 Monocytes (Bld) [#/Vol] 0.5 10*3/uL 0.0-0.8 [facility] Monocytes/100 WBC Auto (Bld) Ordered By: Julee Davies on 06-24-2021 Monocytes/100 WBC (Bld) 7.4 % [facility] Neutrophils Auto (Bld) [#/Vo l]Ordered By: Julee Davies on 06-24-2021 Neutrophils (Bld) [#/Vol] 5.0 10*3/uL 1.8-7.7 [facility] Neutrophils/100 WBC Auto (Bl d)Ordered By: Julee Davies on 06-24-2021 Neutrophils/100 WBC (Bld) 75.4 % [facility] No Panel InformationOrdered By: Julee Davies on 06-24-2021 Estimated GFR () 36 mL/Min [facility] Comment on above: GFR estimated refere nce range: According to KDOQI guidelines, <60 ml/min/1.73m2 is sufficient to diagnose a patient with chronic kidney disease. Pharmacy Creatinine Clearance (Chem N/A [facility] Platelet mean volume Auto (B ld) [Entitic vol]Ordered By: Julee Davies on 06-24-2021 Platelet mean volume (Bld) [Entitic vol] 9.8 fL 6.6-10.1 [facility] Platelets Auto (Bld) [#/Vol] Ordered By: Julee Davies on 06-24-2021 Platelets (Bld) [#/Vol] 119 10*3/uL 150-450 [facility] Protein [Mass/volume] in Ser um or PlasmaOrdered By: Julee Davies on 06-24-2021 Protein [Mass/Vol] 5.3 g/dL 6.1-7.9 [facility] RBC Auto (Bld) [#/Vol]Ordere d By: Julee Davies on 06-24-2021 RBC (Bld) [#/Vol] 3.90 10*6/uL 3.90-5.60 [facility] Serum or plasma alanine lopez otransferase measurement without P-5'-P (enzymatic activiOrdered By: Julee Davies on 06-24-2021 ALT No additional P-5'-P [Catalytic activity/Vol] 7 U/L 10-60 [facility] Serum or plasma albumin/glob ulin mass ratioOrdered By: Julee Davies on 06-24-2021 Albumin/Globulin [Mass ratio] 1.2 {ratio} [facility] Serum or plasma alkaline cande sphatase measurement (enzymatic activity/volume)Ordered By: Julee Davies on 06-24-2021 ALP [Catalytic activity/Vol] 56 U/L 32-92 [facility] Serum or plasma aspartate am inotransferase measurement (enzymatic activity/volume)Ordered By: Julee Davies on 06-24-2021 AST [Catalytic activity/Vol] 13 U/L 10-42 [facility] Serum or plasma calcium abhijit urement (mass/volume)Ordered By: Julee Davies on 06-24-2021 Calcium [Mass/Vol] 8.9 mg/dL 8.2-10.2 [facility] Serum or plasma chloride marylin surement (moles/volume)Ordered By: Julee Davies on 06-24-2021 Chloride [Moles/Vol] 109 mmol/L 95-114 [facility] Serum or plasma glucose abhijit urement (mass/volume)Ordered By: Julee Davies on 06-24-2021 Glucose [Mass/Vol] 160 mg/dL 70-100 [facility] Comment on above: ADA recommended refe rence rangeRandom Glucose Reference Range is dependent on time and content of last meal. Glucose of more than 200 mg/dL in a nonstressed, ambulatory subject supports the diagnosis of Diabetes Mellitus. Serum or plasma potassium me asurement (moles/volume)Ordered By: Julee Davies on 06-24-2021 Potassium [Moles/Vol] 4.1 mmol/L 3.5-5.1 [facility] Serum or plasma sodium measu rement (moles/volume)Ordered By: Julee Davies on 06-24-2021 Sodium [Moles/Vol] 144 mmol/L 136-146 [facility] Serum or plasma total biliru bin measurement (mass/volume)Ordered By: Julee Davies on 06-24-2021 Bilirubin [Mass/Vol] 0.5 mg/dL 0.3-1.2 [facility] Serum or plasma total carbon dioxide measurement (moles/volume)Ordered By: Julee Davies on 06-24-2021 CO2 [Moles/Vol] 25.7 mmol/L 22.0-30.0 [facility] Serum or plasma urea nitroge n measurement (mass/volume)Ordered By: Julee Davies on 06-24-2021 Urea nitrogen [Mass/Vol] 43 mg/dL 9-23 [facility] Tacrolimus [Mass/volume] in BloodOrdered By: Julee Davies on 06-24-2021 Tacrolimus (Bld) [Mass/Vol] 8.1 ng/mL [facility] Comment on above: This test was vane christine and its performance characteristicsdetermined by [employer]. It has not been cleared orapproved by the Food and Drug Administration. Trough (immediately following transplant) 15.0 Trough (steady state, 2 weeks or more after transplant): 3.0 - 8.0 Performed by LC-MS/MS technology.Performed at: [address] [id number] Director: Mynro Nixon MD, Phone: [phone] Albumin [Mass/volume] in Ser um or PlasmaOrdered By: Julee Davies on 05-27-2021 Albumin [Mass/Vol] 3.1 g/dL 3.2-5.5 [facility] Basophils Auto (Bld) [#/Vol] Ordered By: Julee Davies on 05-27-2021 Basophils (Bld) [#/Vol] 0.0 10*3/uL 0.0-0.2 [facility] Basophils/100 WBC Auto (Bld) Ordered By: Julee Davies on 05-27-2021 Basophils/100 WBC (Bld) 0.7 % F [facility] Blood hemoglobin measurement (mass/volume)Ordered By: Julee Davies on 05-27-2021 Hemoglobin (Bld) [Mass/Vol] 11.4 g/dL 13.0-17.0 [facility] Blood leukocytes automated c ount (number/volume)Ordered By: Julee Davies on 05-27-2021 WBC (Bld) [#/Vol] 6.1 10*3/uL 4.5-11.0 [facility] Cholesterol [Mass/volume] in Serum or PlasmaOrdered By: Julee Davies on 05-27-2021 Cholesterol [Mass/Vol] 129 mg/dL 140-200 [facility] Comment on above: Chol less than 200 m g/dl low riskChol 201-239 mg/dl borderline riskChol 240 mg/dl and greater high risk Cholesterol in LDL Calc [Mas s/Vol]Ordered By: Julee Davies on 03-08-2022 Cholesterol in LDL [Mass/Vol] 67 mg/dL 0-100 [facility] Comment on above: LDL ATP III CLASSIFI CATIONLDL less than 100 mg/dL OptimalLDL 100-129 mg/dL Near or above optimalLDL 130-159 mg/dL Borderline highLDL 160-189 mg/dL HighLDL greater than 189 mg/dL Very high Cholesterol in VLDL Calc [Ma ss/Vol]Ordered By: Julee Davies on 05-27-2021 Cholesterol in VLDL [Mass/Vol] 27 mg/dL [facility] Creatinine and Glomerular fi ltration rate.predicted panel (S/P/Bld)Ordered By: Julee Davies on 05-27-2021 Creatinine [Mass/Vol] 1.86 mg/dL 0.64-1.27 [facility] Eosinophils Auto (Bld) [#/Vo l]Ordered By: Julee Davies on 05-27-2021 Eosinophils (Bld) [#/Vol] 0.2 10*3/uL 0.0-0.45 [facility] Eosinophils/100 WBC Auto (Bl d)Ordered By: Julee Davies on 05-27-2021 Eosinophils/100 WBC (Bld) 3.7 % [facility] Erythrocyte distribution wid th Auto (RBC) [Ratio]Ordered By: Julee Davies on 05-27-2021 Erythrocyte distribution width (RBC) [Ratio] 14.9 % 12.0-14.8 [facility] Estimated glomerular filtrat ion rate (GFR) non- AmericanOrdered By: Julee Davies on 05-27-2021 GFR/1.73 sq M.predicted among non-blacks MDRD (S/P/Bld) [Vol rate/Area] 35 mL/Min [facility] Globulin Calc (S) [Mass/Vol] Ordered By: Julee Davies on 05-27-2021 Globulin (S) [Mass/Vol] 2.9 g/dL F [facility] Glucose mean value [Mass/vol ume] in Blood Estimated from glycated hemoglobinOrdered By: Julee Davies on 05-27-2021 Average glucose Estimated from glycated hemoglobin (Bld) [Mass/Vol] 209 mg/dL [facility] Hematocrit Auto (Bld) [Volum e fraction]Ordered By: Julee Davies on 05-27-2021 Hematocrit (Bld) [Volume fraction] 34.1 % 38.8-50.0 [facility] Hemoglobin A1c percentageOrd ered By: Julee Davies on 05-27-2021 HbA1c (Bld) [Mass fraction] 8.9 % 4.3-5.6 [facility] Comment on above: Increased risk for d iabetes: 5.7 - 6.4diabetes: >6.4glycemic control for adults with diabetes: <7.0 Laboratory - Hematology and Cell countsOrdered By: Julee Davies on 05-27-2021 Nucleated RBC/100 WBC (Bld) [Ratio] 0.2 % 0-0.5 [facility] Lymphocytes Auto (Bld) [#/Vo l]Ordered By: Julee Davies on 05-27-2021 Lymphocytes (Bld) [#/Vol] 1.1 10*3/uL 1.00-4.8 [facility] Lymphocytes/100 WBC Auto (Bl d)Ordered By: Julee Davies on 05-27-2021 Lymphocytes/100 WBC (Bld) 17.9 % [facility] MCH Auto (RBC) [Entitic mass ]Ordered By: Julee Davies on 05-27-2021 MCH (RBC) [Entitic mass] 28.3 pg 27.5-35.2 [facility] MCHC Auto (RBC) [Mass/Vol]Or dered By: Julee Davies on 05-27-2021 MCHC (RBC) [Mass/Vol] 33.5 g/dL 32.5-35.6 [facility] MCV Auto (RBC) [Entitic vol] Ordered By: Julee Davies on 05-27-2021 MCV (RBC) [Entitic vol] 84.5 fL 83.5-101 F [facility] Monocytes Auto (Bld) [#/Vol] Ordered By: Julee Davies on 05-27-2021 Monocytes (Bld) [#/Vol] 0.5 10*3/uL 0.0-0.8 [facility] Monocytes/100 WBC Auto (Bld) Ordered By: Julee Davies on 05-27-2021 Monocytes/100 WBC (Bld) 7.9 % [facility] Neutrophils Auto (Bld) [#/Vo l]Ordered By: Julee Davies on 05-27-2021 Neutrophils (Bld) [#/Vol] 4.3 10*3/uL 1.8-7.7 [facility] Neutrophils/100 WBC Auto (Bl d)Ordered By: Julee Davies on 05-27-2021 Neutrophils/100 WBC (Bld) 69.8 % [facility] No Panel InformationOrdered By: Julee Davies on 05-27-2021 25-Hydroxy Vitamin D Total 23.8 ng/mL 30-100 [facility] Comment on above: VITAMIN D STATUS 25( [place])VITAMIN D RANGE (ng/mL) Deficient <20 Insufficient 20 to <30Sufficient 30 to 100Reference: Ely MF,Brad NC, Kristy ORTEGA, et al. Evaluation,treatment, and prevention of vitamin D deficiency; an Endocrine Society clinical practice guideline. JCEM. 2010; 96(7):1911-30. Estimated GFR () 43 mL/Min [facility] Comment on above: GFR estimated refere nce range: According to KDOQI guidelines, <60 ml/min/1.73m2 is sufficient to diagnose a patient with chronic kidney disease. Pharmacy Creatinine Clearance (Chem N/A [facility] Platelet Estimate Decreased Normal [facility] Platelet Morphology Comment Normal Normal [facility] Platelet mean volume Auto (B ld) [Entitic vol]Ordered By: Julee Davies on 05-27-2021 Platelet mean volume (Bld) [Entitic vol] 10.6 fL 6.6-10.1 [facility] Platelets Auto (Bld) [#/Vol] Ordered By: Julee Davies on 05-27-2021 Platelets (Bld) [#/Vol] 129 10*3/uL 150-450 [facility] Protein [Mass/volume] in Ser um or PlasmaOrdered By: Julee Davies on 05-27-2021 Protein [Mass/Vol] 6.0 g/dL 6.1-7.9 [facility] RBC Auto (Bld) [#/Vol]Ordere d By: Julee Davies on 05-27-2021 RBC (Bld) [#/Vol] 4.03 10*6/uL 3.90-5.60 [facility] RBC morphologyOrdered By: Maurice Davies on 05-27-2021 RBC morphology finding Nom (Bld) Normal [facility] [facility] Serum or plasma alanine lopez otransferase measurement without P-5'-P (enzymatic activiOrdered By: Julee Davies on 05-27-2021 ALT No additional P-5'-P [Catalytic activity/Vol] 7 U/L 10-60 [facility] Serum or plasma albumin/glob ulin mass ratioOrdered By: Julee Davies on 05-27-2021 Albumin/Globulin [Mass ratio] 1.1 {ratio} [facility] Serum or plasma alkaline cande sphatase measurement (enzymatic activity/volume)Ordered By: Julee Davies on 05-27-2021 ALP [Catalytic activity/Vol] 52 U/L 32-92 [facility] Serum or plasma aspartate am inotransferase measurement (enzymatic activity/volume)Ordered By: Julee Davies on 05-27-2021 AST [Catalytic activity/Vol] 11 U/L 10-42 [facility] Serum or plasma calcium abhijit urement (mass/volume)Ordered By: Julee Davies on 05-27-2021 Calcium [Mass/Vol] 9.0 mg/dL 8.2-10.2 [facility] Serum or plasma chloride marylin surement (moles/volume)Ordered By: Julee Davies on 05-27-2021 Chloride [Moles/Vol] 104 mmol/L 95-114 [facility] Serum or plasma glucose abhijit urement (mass/volume)Ordered By: Julee Davies on 05-27-2021 Glucose [Mass/Vol] 183 mg/dL 70-100 [facility] Comment on above: ADA recommended refe rence rangeRandom Glucose Reference Range is dependent on time and content of last meal. Glucose of more than 200 mg/dL in a nonstressed, ambulatory subject supports the diagnosis of Diabetes Mellitus. Serum or plasma high density lipoprotein (HDL) cholesterol measurementOrdered By: Julee Davies on 05-27-2021 Cholesterol in HDL [Mass/Vol] 35 mg/dL 29-71 [facility] Comment on above: HDL CHOL ATP-III CLA SSIFICATION Cardiovascular RiskHDL > or equal to 60 mg/dL LOWHDL < 40 mg/dL HIGH Serum or plasma potassium me asurement (moles/volume)Ordered By: Julee Davies on 05-27-2021 Potassium [Moles/Vol] 4.1 mmol/L 3.5-5.1 [facility] Serum or plasma sodium measu rement (moles/volume)Ordered By: Julee Davies on 05-27-2021 Sodium [Moles/Vol] 140 mmol/L 136-146 [facility] Serum or plasma total biliru bin measurement (mass/volume)Ordered By: Julee Davies on 05-27-2021 Bilirubin [Mass/Vol] 0.4 mg/dL 0.3-1.2 [facility] Serum or plasma total carbon dioxide measurement (moles/volume)Ordered By: Julee Davies on 05-27-2021 CO2 [Moles/Vol] 26.1 mmol/L 22.0-30.0 [facility] Serum or plasma total choles terol/high density lipoprotein (HDL) cholesterol mass ratOrdered By: Julee Davies on 05-27-2021 Cholesterol.total/Denise sterol in HDL [Mass ratio] 3.7 {ratio} [facility] Serum or plasma urea nitroge n measurement (mass/volume)Ordered By: Julee Davies on 05-27-2021 Urea nitrogen [Mass/Vol] 38 mg/dL 9-23 [facility] TSH DL <= 0.005 mIU/L QnOrde red By: Julee Davies on 05-27-2021 TSH Qn 4.10 m[IU]/L 0.45-5.33 [facility] Triglyceride [Mass/volume] i n Serum or PlasmaOrdered By: Julee Davies on 05-27-2021 Triglyceride [Mass/Vol] 136 mg/dL 35-149 F [facility] Comment on above: TRIG ATP III CLASSIF ICATIONTRIG less than 150 mg/dL NormalTRIG 150-199 mg/dL Borderline highTRIG 200-500 mg/dL High TRIG greater than 500 mg/dL Very highStandard traceable to the Center for Disease Conrtrol and Prevention (CDC) test method. Coronavirus 2019 RNA by PCR, Screening Asymptomticon 12-24-2020 Date and time of symptom onset Canceled MG-Cardiomell berkowitz-Ellyn SJW 260 DO Work Phone: Coronavirus 2019 RNA by PCR, Screening Asymptomtic Not detected Normal See Below MG-Cardiolo gy-Cook SJW 260 DO Work Phone: Comment on above: SOURCE: Nasal, Nasop haryngealReference Range: Not Detected.This test has received FDA Emergency Use Authorization (EUA) and has been verified by [facility] ([facility]). This test is only authorized for the duration of time that circumstances exist to justify the authorization of the emergency use of in vitro diagnostic tests for the detection of SARS-CoV-2 virus and/or diagnosis of COVID-19 infection under section 564(b)(1) of the Act, 21 U.S.C. 360bbb-3(b)(1), unless the authorization is terminated or revoked sooner. [facility] is certified under CLIA-88 as qualified to perform high complexity testing. Testing is performed in the [facility] located at [address] [place] [address].SARS-CoV-2/Flu/RSV Multiplex Test: Fact sheet for providers: https://www.fda.gov/media/008324/downloadFact sheet for patients: https://www.fda.gov/media/175587/download Coronavirus 2019 RNA by PCR, Screening Asymptomtic Canceled MG-Cardiolo woo-Ellyn SJW 260 DO Work Phone: Comment on above: SOURCE: Nasal, Nasop haryngeal.This test has received FDA Emergency Use Authorization (EUA) and has been verified by [facility] ([facility]). This test is only authorized for the duration of time that circumstances exist to justify the authorization of the emergency use of in vitro diagnostic tests for the detection of SARS-CoV-2 virus and/or diagnosis of COVID-19 infection under section 564(b)(1) of the Act, 21 U.S.C. 360bbb-3(b)(1), unless the authorization is terminated or revoked sooner. [facility] is certified under CLIA-88 as qualified to perform high complexity testing. Testing is performed in the [facility] located at [address] [place] [address].SARS-CoV-2/Flu/RSV Multiplex Test: Fact sheet for providers: https://www.fda.gov/media/057288/downloadFact sheet for patients: https://www.fda.gov/media/604123/download Laboratory - Chemistry and C hemistry - challengeon 12-24-2020 Glucose [Mass/Vol] 203 mg/dL above high threshold 74 - 99 MG-Cardiolo gy-Cook SJW 260 DO Work Phone: Laboratory - Hematology and Cell countson 12-24-2020 Erythrocyte distribution width (RBC) [Ratio] 12.7 % See Below MG-Cardiolo gy-Ellyn SJW 260 DO Work Phone: Comment on above: Reference Range: 11. 5 - 14.5 Hematocrit (Bld) [Volume fraction] 35.7 % below low threshold See Below MG-Cardiolo gy-Ellyn SJW 260 DO Work Phone: Comment on above: Reference Range: 41. 0 - 52.0 Hemoglobin (Bld) [Mass/Vol] 11.7 g/dL below low threshold See Below MG-Cardiolo gy-Cook SJW 260 DO Work Phone: Comment on above: Reference Range: 13. 5 - 17.5 MCHC (RBC) [Mass/Vol] 32.8 g/dL See Below MG- Cardiolo gy-Cook SJW 260 DO Work Phone: Comment on above: Reference Range: 32. 0 - 36.0 MCV (RBC) [Entitic vol] 91 fL 80 - 100 M G-Cardiolo gy-Cook SJW 260 DO Work Phone: Platelets (Bld) [#/Vol] 105 10*3/uL below lo w threshold 150 - 450 MG-Cardiolo gy-Ellyn SJW 260 DO Work Phone: RBC (Bld) [#/Vol] 3.92 {x10E12/L} below low threshold See Below MG-Cardiolo gy-Cook SJW 260 DO Work Phone: Comment on above: Reference Range: 4.5 0 - 5.90 WBC (Bld) [#/Vol] 5.1 10*3/uL 4.4 - 11.3 MG-Car diolo gy-Cook SJW 260 DO Work Phone: No Panel Informationon 12-24 Please click on the link to view the study images Normal MG-Cardiolo gy-Ellyn SJW 260 DO Work Phone: 0.0 {/100_WBC} 0.0-0.0 MG-Cardiol o gy-Cook SJW 260 DO Work Phone: Renal Function Panelon 12-24 Albumin BCP dye [Mass/Vol] 3.6 g/dL 3.4 - 5.0 MG-Cardiolo gy-Ellyn SJW 260 DO Work Phone: Anion gap [Moles/Vol] 15 mmol/L 10 - 20 MG- Cardiolo gy-Ellyn SJW 260 DO Work Phone: Calcium [Mass/Vol] 9.0 mg/dL 8.6 - 10.6 MG-Car diolo gy-Cook SJW 260 DO Work Phone: [phone] Chloride [Moles/Vol] 109 mmol/L above high threshold 98 - 107 MG-Cardiolo gy-Cook S[facility]W 260 DO Work Phone: CO2 [Moles/Vol] 24 mmol/L 21 - 32 MG-Cardio lo gy-Cook SJW 260 DO Work Phone: Creatinine [Mass/Vol] 1.77 mg/dL above high threshold See Below MG-Cardiolo gy-Ellyn S[facility]W 260 DO Work Phone: Comment on above: Reference Range: 0.5 0 - 1.30 Glucose [Mass/Vol] 195 mg/dL above high threshold 74 - 99 MG-Cardiolo gy-Cook SJW 260 DO Work Phone: Phosphate [Mass/Vol] 2.9 mg/dL 2.5 - 4.9 MG-C ardiolo gy-Cook SJW 260 DO Work Phone: Comment on [...] 143 mmol/L 136 - 145 MG-Car diolo gy-Cook SJW 260 DO Work Phone: Urea nitrogen [Mass/Vol] 49 mg/dL above high threshold 6 - 23 MG-Cardiolo gy-Ellyn SJW 260 DO Work Phone: Renal Function Panel 45 {mL/min/1.73m2} Abnormal >60 MG-Cardiolo gy-Cook SJW 260 DO Work Phone: Comment on above: CALCULATIONS OF ERNST MATED GFR ARE PERFORMED USING THE MDRD STUDY EQUATION FOR THE IDMS-TRACEABLE CREATININE METHODS. CLIN CHEM 2007;53:766-72 Renal Function Panel 37 {mL/min/1.73m2} Abnormal >60 MG-Cardiolo gy-Cook SJW 260 DO Work Phone: Tacrolimuson 12-24-2020 Tacrolimus (Bld) [Mass/Vol] 5.4 ng/mL 2.0 - 15.0 MG-Cardiolo gy-Ellyn SJW 260 DO Work Phone: Comment on above: NOTE: Result was obt ained using a chemiluminescent microparticle immunoassay (CMIA) on the [employer] i system.Optimal therapeutic ranges for immuno-suppressant drugs depend upon an individualpatient's current clinical state, type oforgan transplant, time post-transplant,co-administration of other immunosuppressants,and other clinical factors. The results ofthis test should be correlated with additionalclinical and laboratory data before changesin treatment regimens are made. CT Head without Contraston 1 CT Head limited WO contrast Normal MG-Cardiolo gy-Ellyn SJW 260 DO Work Phone: [phone] Laboratory - Chemistry and C hemistry - challengeon 12-23-2020 Glucose [Mass/Vol] 151 mg/dL above high threshold 74 - 99 MG-Cardiolo gy-Ellyn SJW 260 DO Work Phone: [phone] Glucose [Mass/Vol] 241 mg/dL above high threshold 74 - 99 MG-Cardiolo gy-Cook SJW 260 DO Work Phone: [phone] Glucose [Mass/Vol] 195 mg/dL above high threshold 74 - 99 MG-Cardiolo gy-Ellyn SJW 260 DO Work Phone: [phone] Glucose [Mass/Vol] 160 mg/dL above high threshold 74 - 99 MG-Cardiolo gy-Ellyn SJW 260 DO Work Phone: [phone] Laboratory - Hematology and Cell countson 12-23-2020 Erythrocyte distribution width (RBC) [Ratio] 12.5 % See Below MG-Cardiolo gy-Cook SJW 260 DO Work Phone: [phone] Comment on above: Reference Range: 11. 5 - 14.5 Hematocrit (Bld) [Volume fraction] 34.3 % below low threshold See Below MG-Cardiolo gy-Ellyn SJW 260 DO Work Phone: [phone] Comment on above: Reference Range: 41. 0 - 52.0 Hemoglobin (Bld) [Mass/Vol] 11.1 g/dL below low threshold See Below MG-Cardiolo gy-Cook SJW 260 DO Work Phone: [phone] Comment on above: Reference Range: 13. 5 - 17.5 MCHC (RBC) [Mass/Vol] 32.4 g/dL See Below MG- Cardiolo gy-Cook SJW 260 DO Work Phone: [phone] Comment on above: Reference Range: 32. 0 - 36.0 MCV (RBC) [Entitic vol] 90 fL 80 - 100 M G-Cardiolo gy-Cook SJW 260 DO Work Phone: [phone] Platelets (Bld) [#/Vol] 106 10*3/uL below lo w threshold 150 - 450 MG-Cardiolo gy-Ellyn SJW 260 DO Work Phone: [phone] RBC (Bld) [#/Vol] 3.83 {x10E12/L} below low threshold See Below MG-Cardiolo gy-Ellyn SJW 260 DO Work Phone: [phone] Comment on above: Reference Range: 4.5 0 - 5.90 WBC (Bld) [#/Vol] 5.2 10*3/uL 4.4 - 11.3 MG-Car diolo gy-Ellyn SJW 260 DO Work Phone: [phone] No Panel Informationon 12-23 0.0 {/100_WBC} 0.0-0.0 MG-Cardiol o gy-Cook SJW 260 DO Work Phone: [phone] Renal Function Panelon 12-23 Albumin BCP dye [Mass/Vol] 3.6 g/dL 3.4 - 5.0 MG-Cardiolo gy-Cook SJW 260 DO Work Phone: [phone] Anion gap [Moles/Vol] 14 mmol/L 10 - 20 MG- Cardiolo gy-Cook SJW 260 DO Work Phone: [phone] Calcium [Mass/Vol] 8.9 mg/dL 8.6 - 10.6 MG-Car diolo gy-Ellyn SJW 260 DO Work Phone: [phone] Chloride [Moles/Vol] 109 mmol/L above high threshold 98 - 107 MG-Cardiolo gy-Ellyn SJW 260 DO Work Phone: [phone] CO2 [Moles/Vol] 23 mmol/L 21 - 32 MG-Cardio lo gy-Cook SJW 260 DO Work Phone: [phone] Creatinine [Mass/Vol] 1.71 mg/dL above high threshold See Below MG-Cardiolo gy-Cook SJW 260 DO Work Phone: Comment on above: Reference Range: 0.5 0 - 1.30 Glucose [Mass/Vol] 146 mg/dL above high threshold 74 - 99 MG-Cardiolo gy-Ellyn SJW 260 DO Work Phone: Phosphate [Mass/Vol] 2.8 mg/dL 2.5 - 4.9 MG-C ardiolo gy-Cook SJW 260 DO Work Phone: Comment on above: The performance waqar acteristics of phosphorus testing in heparinized plasma have been validated by the individual laboratory site where testing is performed. Testing on heparinized plasma is not approved by the FDA; however, such approval is not necessary. Potassium [Moles/Vol] 4.2 mmol/L 3.5 - 5.3 MG- Cardiolo gy-Ellyn SJW 260 DO Work Phone: Sodium [Moles/Vol] 142 mmol/L 136 - 145 MG-Car diolo gy-Ellyn SJW 260 DO Work Phone: Urea nitrogen [Mass/Vol] 50 mg/dL above high threshold 6 - 23 MG-Cardiolo gy-Ellyn SJW 260 DO Work Phone: Renal Function Panel 47 {mL/min/1.73m2} Abnormal >60 MG-Cardiolo gy-Cook SJW 260 DO Work Phone: Comment on above: CALCULATIONS OF ERNST MATED GFR ARE PERFORMED USING THE MDRD STUDY EQUATION FOR THE IDMS-TRACEABLE CREATININE METHODS. CLIN CHEM 2007;53:766-72 Renal Function Panel 39 {mL/min/1.73m2} Abnormal >60 MG-Cardiolo gy-Ellyn SJW 260 DO Work Phone: Tacrolimuson 12-23-2020 Tacrolimus (Bld) [Mass/Vol] 5.9 ng/mL 2.0 - 15.0 MG-Cardiolo gy-Cook SJW 260 DO Work Phone: Comment on above: NOTE: Result was obt ained using a chemiluminescent microparticle immunoassay (CMIA) on the [employer] i system.Optimal therapeutic ranges for immuno-suppressant drugs depend upon an individualpatient's current clinical state, type oforgan transplant, time post-transplant,co-administration of other immunosuppressants,and other clinical factors. The results ofthis test should be correlated with additionalclinical and laboratory data before changesin treatment regimens are made. Laboratory - Chemistry and C hemistry - challengeon 12-22-2020 Glucose [Mass/Vol] 160 mg/dL above high threshold 74 - 99 MG-Cardiolo gy-Cook SJW 260 DO Work Phone: [phone] Glucose [Mass/Vol] 146 mg/dL above high threshold 74 - 99 MG-Cardiolo gy-Cook SJW 260 DO Work Phone: [phone] Glucose [Mass/Vol] 217 mg/dL above high threshold 74 - 99 MG-Cardiolo gy-Ellyn SJW 260 DO Work Phone: [phone] Glucose [Mass/Vol] 145 mg/dL above high threshold 74 - 99 MG-Cardiolo gy-Ellyn SJW 260 DO Work Phone: [phone] Glucose [Mass/Vol] 142 mg/dL above high threshold 74 - 99 MG-Cardiolo gy-Ellyn SJW 260 DO Work Phone: [phone] Laboratory - Hematology and Cell countson 12-22-2020 Erythrocyte distribution width (RBC) [Ratio] 12.6 % See Below MG-Cardiolo gy-Cook SJW 260 DO Work Phone: [phone] Comment on above: Reference Range: 11. 5 - 14.5 Hematocrit (Bld) [Volume fraction] 33.0 % below low threshold See Below MG-Cardiolo gy-Cook SJW 260 DO Work Phone: Comment on above: Reference Range: 41. 0 - 52.0 Hemoglobin (Bld) [Mass/Vol] 10.7 g/dL below low threshold See Below MG-Cardiolo gy-Ellyn SJW 260 DO Work Phone: Comment on above: Reference Range: 13. 5 - 17.5 MCHC (RBC) [Mass/Vol] 32.4 g/dL See Below MG- Cardiolo gy-Ellyn SJW 260 DO Work Phone: [phone] Comment on above: Reference Range: 32. 0 - 36.0 MCV (RBC) [Entitic vol] 91 fL 80 - 100 M G-Cardiolo gy-Cook SJW 260 DO Work Phone: [phone] Platelets (Bld) [#/Vol] 107 10*3/uL below lo w threshold 150 - 450 MG-Cardiolo gy-Cook SJW 260 DO Work Phone: [phone] RBC (Bld) [#/Vol] 3.62 {x10E12/L} below low threshold See Below MG-Cardiolo gy-Ellyn SJW 260 DO Work Phone: [phone] Comment on above: Reference Range: 4.5 0 - 5.90 WBC (Bld) [#/Vol] 5.0 10*3/uL 4.4 - 11.3 MG-Car diolo gy-Ellyn SJW 260 DO Work Phone: [phone] No Panel Informationon 12-22 0.0 {/100_WBC} 0.0-0.0 MG-Cardiol o gy-Cook SJW 260 DO Work Phone: [phone] Renal Function Panelon 12-22 Albumin BCP dye [Mass/Vol] 3.5 g/dL 3.4 - 5.0 MG-Cardiolo gy-Ellyn SJW 260 DO Work Phone: [phone] Anion gap [Moles/Vol] 15 mmol/L 10 - 20 MG- Cardiolo gy-Ellyn SJW 260 DO Work Phone: [phone] Calcium [Mass/Vol] 8.9 mg/dL 8.6 - 10.6 MG-Car diolo gy-Cook SJW 260 DO Work Phone: [phone] Chloride [Moles/Vol] 111 mmol/L above high threshold 98 - 107 MG-Cardiolo gy-Ellyn SJW 260 DO Work Phone: [phone] CO2 [Moles/Vol] 23 mmol/L 21 - 32 MG-Cardio lo gy-Ellyn SJW 260 DO Work Phone: Creatinine [Mass/Vol] 2.04 mg/dL above high threshold See Below MG-Cardiolo gy-Ellyn SJW 260 DO Work Phone: Comment on above: Reference Range: 0.5 0 - 1.30 Glucose [Mass/Vol] 131 mg/dL above high threshold 74 - 99 MG-Cardiolo gy-Ellyn SJW 260 DO Work Phone: Phosphate [Mass/Vol] 3.3 mg/dL 2.5 - 4.9 MG-C ardiolo gy-Cook SJW 260 DO Work Phone: Comment on [...] above high threshold 6 - 23 MG-Cardiolo gy-Cook SJW 260 DO Work Phone: Renal Function Panel 39 {mL/min/1.73m2} Abnormal >60 MG-Cardiolo gy-Cook SJW 260 DO Work Phone: Comment on above: CALCULATIONS OF ERNST MATED GFR ARE PERFORMED USING THE MDRD STUDY EQUATION FOR THE IDMS-TRACEABLE CREATININE METHODS. CLIN CHEM 2007;53:766-72 Renal Function Panel 32 {mL/min/1.73m2} Abnormal >60 MG-Cardiolo gy-Cook SJW 260 DO Work Phone: Tacrolimuson 12-22-2020 Tacrolimus (Bld) [Mass/Vol] 5.5 ng/mL 2.0 - 15.0 MG-Cardiolo gy-Cook SJW 260 DO Work Phone: Comment on above: NOTE: Result was obt ained using a chemiluminescent microparticle immunoassay (CMIA) on the [employer] i system.Optimal therapeutic ranges for immuno-suppressant drugs [...] Phone: HbA1c (Bld) [Mass fraction] Canceled MG-Cardiolo gy-Ellyn SJW 260 DO Work Phone: Comment on above: Diagnosis of Diabete s-Adults Non-Diabetic: < or = 5.6% Increased risk for developing diabetes: 5.7-6.4% Diagnostic of diabetes: > or = 6.5%. Monitoring of Diabetes Age (y) Therapeutic Goal (%) Adults: >18 <7.0 Pediatrics: 13-18 <7.5 7-12 <8.0 0- 6 7.5-8.5 [employer]. Diabetes Care 33(S1)Mar 2009. HbA1c (Bld) [Mass fraction] 6.8 % Abnormal MG-Cardiolo gy-Ellyn SJW 260 DO Work Phone: Comment on above: Diagnosis of Diabete s-Adults Non-Diabetic: < or = 5.6% Increased risk for developing diabetes: 5.7-6.4% Diagnostic of diabetes: > or = 6.5%. Monitoring of Diabetes Age (y) Therapeutic Goal (%) Adults: >18 <7.0 Pediatrics: 13-18 <7.5 7-12 <8.0 0- 6 7.5-8.5 [employer]. Diabetes Care 33(S1), Mar 2009. Hemoglobin A1C Canceled MG-Cardiol o gy-Ellyn SJW 260 DO Work Phone: Laboratory - Chemistry and C hemistry - challengeon 12-21-2020 Glucose [Mass/Vol] 191 mg/dL above high threshold 74 - 99 MG-Cardiolo gy-Ellyn SJW 260 DO Work Phone: Glucose [Mass/Vol] 203 mg/dL above high threshold 74 - 99 MG-Cardiolo gy-Ellyn SJW 260 DO Work Phone: [phone] Glucose [Mass/Vol] 229 mg/dL above high threshold 74 - 99 MG-Cardiolo gy-Ellyn SJW 260 DO Work Phone: [phone] Glucose [Mass/Vol] 136 mg/dL above high threshold 74 - 99 MG-Cardiolo gy-Ellyn SJW 260 DO Work Phone: [phone] Laboratory - Hematology and Cell countson 12-21-2020 Erythrocyte distribution width (RBC) [Ratio] 12.8 % See Below MG-Cardiolo gy-Cook SJW 260 DO Work Phone: [phone] Comment on above: Reference Range: 11. 5 - 14.5 Hematocrit (Bld) [Volume fraction] 35.6 % below low threshold See Below MG-Cardiolo gy-Cook SJW 260 DO Work Phone: [phone] Comment on above: Reference Range: 41. 0 - 52.0 Hemoglobin (Bld) [Mass/Vol] 12.0 g/dL below low threshold See Below MG-Cardiolo gy-Ellyn SJW 260 DO Work Phone: Comment on above: Reference Range: 13. 5 - 17.5 MCHC (RBC) [Mass/Vol] 33.7 g/dL See Below MG- Cardiolo gy-Cook SJW 260 DO Work Phone: Comment on above: Reference Range: 32. 0 - 36.0 MCV (RBC) [Entitic vol] 89 fL 80 - 100 M G-Cardiolo gy-Cook SJW 260 DO Work Phone: Platelets (Bld) [#/Vol] 124 10*3/uL below lo w threshold 150 - 450 MG-Cardiolo gy-Cook SJW 260 DO Work Phone: [phone] RBC (Bld) [#/Vol] 4.01 {x10E12/L} below low threshold See Below MG-Cardiolo gy-Cook SJW 260 DO Work Phone: [phone] Comment on above: Reference Range: 4.5 0 - 5.90 WBC (Bld) [#/Vol] 6.2 10*3/uL 4.4 - 11.3 MG-Car diolo gy-Ellyn SJW 260 DO Work Phone: No Panel Informationon 12-21 0.0 {/100_WBC} 0.0-0.0 MG-Cardiol o gy-Ellyn SJW 260 DO Work Phone: [phone] Renal Function Panelon 12-21 Albumin BCP dye [Mass/Vol] 3.8 g/dL 3.4 - 5.0 MG-Cardiolo gy-Cook SJW 260 DO Work Phone: [phone] Anion gap [Moles/Vol] 15 mmol/L 10 - 20 MG- Cardiolo gy-Ellyn SJW 260 DO Work Phone: [phone] Calcium [Mass/Vol] 8.8 mg/dL 8.6 - 10.6 MG-Car diolo gy-Ellyn SJW 260 DO Work Phone: [phone] Chloride [Moles/Vol] 110 mmol/L above high threshold 98 - 107 MG-Cardiolo gy-Cook SJW 260 DO Work Phone: [phone] CO2 [Moles/Vol] 23 mmol/L 21 - 32 MG-Cardio lo gy-Ellyn SJW 260 DO Work Phone: [phone] Creatinine [Mass/Vol] 2.22 mg/dL above high threshold See Below MG-Cardiolo gy-Ellyn SJW 260 DO Work Phone: [phone] Comment on above: Reference Range: 0.5 0 - 1.30 Glucose [Mass/Vol] 114 mg/dL above high threshold 74 - 99 MG-Cardiolo gy-Ellyn SJW 260 DO Work Phone: Phosphate [Mass/Vol] 3.6 mg/dL 2.5 - 4.9 MG-C ardiolo gy-Cook SJW 260 DO Work Phone: Comment on above: The performance waqar acteristics of phosphorus testing in heparinized plasma have been validated by the individual laboratory site where testing is performed. Testing on heparinized plasma is not approved by the FDA; however, such approval is not necessary. Potassium [Moles/Vol] 4.1 mmol/L 3.5 - 5.3 MG- Cardiolo gy-Cook SJW 260 DO Work Phone: Sodium [Moles/Vol] 144 mmol/L 136 - 145 MG-Car diolo gy-Cook SJW 260 DO Work Phone: Urea nitrogen [Mass/Vol] 68 mg/dL above high threshold 6 - 23 MG-Cardiolo gy-Cook SJW 260 DO Work Phone: Renal Function Panel 35 {mL/min/1.73m2} Abnormal >60 MG-Cardiolo gy-Cook SJW 260 DO Work Phone: Comment on above: CALCULATIONS OF ERNST MATED GFR ARE PERFORMED USING THE MDRD STUDY EQUATION FOR THE IDMS-TRACEABLE CREATININE METHODS. CLIN CHEM 2007;53:766-72 Renal Function Panel 29 {mL/min/1.73m2} Abnormal >60 MG-Cardiolo gy-Ellyn SJW 260 DO Work Phone: Tacrolimuson 12-21-2020 Tacrolimus (Bld) [Mass/Vol] 6.8 ng/mL 2.0 - 15.0 MG-Cardiolo gy-Cook SJW 260 DO Work Phone: Comment on above: NOTE: Result was obt ained using a chemiluminescent microparticle immunoassay (CMIA) on the [employer] i system.Optimal therapeutic ranges for immuno-suppressant drugs depend upon an individualpatient's current clinical state, type oforgan transplant, time post-transplant,co-administration of other immunosuppressants,and other clinical factors. The results ofthis test should be correlated with additionalclinical and laboratory data before changesin treatment regimens are made. Coronavirus 2019 RNA by PCR, Symptomaticon 12-20-2020 Coronavirus 2019 RNA by PCR, Symptomatic Not detected Normal See Below MG-Cardiolo gy-Ellyn SJW 260 DO Work Phone: Comment on above: SOURCE: Nasal, Nasop haryngealReference Range: Not Detected.This test has received FDA Emergency Use Authorization (EUA) and has been verified by [facility] ([facility]). This test is only authorized for the duration of time that circumstances exist to justify the authorization of the emergency use of in vitro diagnostic tests for the detection of SARS-CoV-2 virus and/or diagnosis of COVID-19 infection under section 564(b)(1) of the Act, 21 U.S.C. 360bbb-3(b)(1), unless the authorization is terminated or revoked sooner. [facility] is certified under CLIA-88 as qualified to perform high complexity testing. Testing is performed in the [facility] located at [address] [place] [address].SARS-CoV-2/Flu/RSV Multiplex Test: Fact sheet for providers: https://www.fda.gov/media/554252/downloadFact sheet for patients: https://www.fda.gov/media/396330/download Date and time of symptom onset Canceled MG-Cardiolo gy-Cook SJW 260 DO Work Phone: Coronavirus 2019 RNA by PCR, Symptomatic Canceled MG-Cardiolo gy-Ellyn SJW 260 DO Work [...] this test method. Fact sheet for providers: www.fda.gov/media/278961/downloadFact sheet for patients: www.fda.gov/media/981484/downloadThis test has received FDA Emergency Use Authorization (EUA) and has been verified by [facility] ([facility]). This test is only authorized for the duration of time that circumstances exist to justify the authorization of the emergency use of in vitro diagnostic tests for the detection of SARS-CoV-2 virus and/or diagnosis of COVID-19 infection under section 564(b)(1) of the Act, 21 U.S.C. 360bbb-3(b)(1), unless the authorization is terminated or revoked sooner. [facility] is certified under CLIA-88 as qualified to perform high complexity testing. Testing is performed in the [facility] laboratories located at [address] [place] [address]. Folate, Serumon 12-20-2020 Folate [Mass/Vol] ng/mL >5.0 MG-Card iolo gy-Cook SJ[facility] 260 DO Work Phone: Comment on [...] above high threshold 74 - 99 MG-Cardiolo gy-Cook S[facility] 260 DO Work Phone: TSH Qn 2.00 m[IU]/L See Below MG-Cardiolo gy-Ellyn S[facility] 260 DO Work Phone: Comment on above: Reference Range: 0.4 4 - 3.98 TSH testing is performed using different testing methodology at [facility] than at other [facility]. Direct result comparisons should only be made within the same method. Laboratory - Coagulationon 1 aPTT Coag (PPP) [Time] Canceled MG -Cardiolo gy-Ellyn S[facility] 260 DO Work Phone: Comment on above: THE APTT IS NO LONGE R USED FOR MONITORING UNFRACTIONATED HEPARIN THERAPY. FOR MONITORING HEPARIN THERAPY, USE THE HEPARIN ASSAY. INR Coag (PPP) [Relative time] Canceled MG-Cardiolo gy-Cook S[facility] 260 DO Work Phone: [phone] PT Coag (PPP) [Time] Canceled MG-C niladiolo gy-Ellyn S[facility] 260 DO Work Phone: [phone] Laboratory - Hematology and Cell countson 12-20-2020 Erythrocyte distribution width (RBC) [Ratio] 12.9 % See Below MG-Cardiolo gy-Ellyn S[facility] 260 DO Work Phone: [phone] Comment on above: Reference Range: 11. 5 - 14.5 Hematocrit (Bld) [Volume fraction] 35.8 % below low threshold See Below MG-Cardiolo gy-Ellyn S[facility] 260 DO Work Phone: [phone] Comment on above: Reference Range: 41. 0 - 52.0 Hemoglobin (Bld) [Mass/Vol] 11.7 g/dL below low threshold See Below MG-Cardiolo gy-Ellyn [facility] 260 DO Work Phone: [phone] Comment on above: Reference Range: 13. 5 - 17.5 MCHC (RBC) [Mass/Vol] 32.7 g/dL See Below MG- Cardiolo gy-Cook [facility] 260 DO Work Phone: [phone] Comment on above: Reference Range: 32. 0 - 36.0 MCV (RBC) [Entitic vol] 90 fL 80 - 100 M G-Cardiolo gy-Cook S[facility] 260 DO Work Phone: [phone] Platelets (Bld) [#/Vol] 131 10*3/uL below lo w threshold 150 - 450 MG-Cardiolo gy-Cook S[facility] 260 DO Work Phone: [phone] RBC (Bld) [#/Vol] 3.97 {x10E12/L} below low threshold See Below MG-Cardiolo gy-Cook [facility] 260 DO Work Phone: [phone] Comment on above: Reference Range: 4.5 0 [...] mg/dL above high threshold See Below MG-Cardiolo gy-Cook [facility] 260 DO Work Phone: Comment on above: Reference Range: 1.6 0 - 2.40 No Panel Informationon 12-20 82 pg/mL 0 - 99 MG-Cardiolo gy-Cook S[facility] 260 DO Work Phone: Comment on above: . <100 pg/mL - Heart failure [id number] pg/mL - Intermediate probability of acute heart. [...] Radiologyon 12-20-2020 XR Abdomen AP Normal MG-Cardiolo gy-Ellyn [facility] 260 DO Work Phone: XR Chest Single view Normal MG-C ardiolo gy-Cook [facility] 260 DO Work Phone: Renal Function Panelon 12-20 Albumin BCP dye [Mass/Vol] 3.9 g/dL 3.4 - 5.0 MG-Cardiolo gy-Ellyn [facility] 260 DO Work Phone: [phone] Anion gap [Moles/Vol] 17 mmol/L 10 - 20 MG- Cardiolo gy-Ellyn [facility] 260 DO Work Phone: [phone] Calcium [Mass/Vol] 9.2 mg/dL 8.6 - 10.6 MG-Car diolo gy-Ellyn [facility] 260 DO Work Phone: [phone] Chloride [Moles/Vol] 112 mmol/L above high threshold 98 - 107 MG-Cardiolo gy-Ellyn [facility] 260 DO Work Phone: [phone] CO2 [Moles/Vol] 24 mmol/L 21 - 32 MG-Cardio lo gy-Ellyn [facility] 260 DO Work Phone: [phone] Creatinine [Mass/Vol] 2.40 mg/dL above high threshold See Below MG-Cardiolo gy-Cook [facility] 260 DO Work Phone: [phone] Comment on above: Reference Range: 0.5 0 - 1.30 Glucose [Mass/Vol] 211 mg/dL above high threshold 74 - 99 MG-Cardiolo gy-Ellyn [facility] 260 DO Work Phone: [phone] Phosphate [Mass/Vol] 4.5 mg/dL 2.5 - 4.9 MG-C ardiolo gy-Cook [facility] 260 DO Work Phone: [phone] Comment on above: The performance waqar acteristics of phosphorus testing in heparinized plasma have been validated by the individual laboratory site where testing is performed. Testing on heparinized plasma is not approved by the FDA; however, such approval is not necessary. Potassium [Moles/Vol] 4.8 mmol/L 3.5 - 5.3 MG- Cardiolo gy-Cook [facility] 260 DO Work Phone: [phone] Sodium [Moles/Vol] 148 mmol/L above high threshold 136 - 145 MG-Cardiolo gy-Ellyn [facility] 260 DO Work Phone: [phone] Urea nitrogen [Mass/Vol] 74 mg/dL above high threshold 6 - 23 MG-Cardiolo gy-Cook [facility] 260 DO Work Phone: Renal Function Panel 31 {mL/min/1.73m2} Abnormal >60 MG-Cardiolo gy-Ellyn SJW 260 [...] a chemiluminescent microparticle immunoassay (CMIA) on the [employer] i system.Optimal therapeutic ranges for immuno-suppressant drugs depend upon an individualpatient's current clinical state, type oforgan transplant, time post-transplant,co-administration of other immunosuppressants,and other clinical factors. The results ofthis test should be correlated with additionalclinical and laboratory data before changesin treatment regimens are made. Troponin I, Serumon 12-21-19 Troponin I.cardiac [Mass/Vol] 0.02 ng/mL See Below MG-Cardiolo gy-Cook S[facility] 260 DO Work Phone: Comment on [...] is performed using different testing methodology at [facility] than at other [facility]. Direct result comparisons should only be [...] above high threshold 211 - 911 MG-Cardiolo woo-Cook S[facility] 260 DO Work Phone: Basic Metabolic PanelOrdered By: Manuel Conner on 12-19-2020 Anion gap [Moles/Vol] 11 mmol/L 9 - 17 mmol/L [employer] Phone: Calcium [Mass/Vol] 9.3 mg/dL 8.6 - 10. 4 mg/dL [employer] Phone: Chloride [Moles/Vol] 107 mmol/L 98 - 10 7 mmol/L [employer] Phone: CO2 [Moles/Vol] 23 mmol/L 20 - 31 mmol/L [employer] Phone: Creatinine [Mass/Vol] 2.53 mg/dL High 0.70 - 1.20 mg/dL [employer] Phone: GFR 30 mL/min Low >60 [employer] Phone: GFR Non- 25 mL/min Low >60 [employer] Phone: Glucose [Mass/Vol] 160 mg/dL High 70 - 99 mg/dL [employer] Phone: Interpretation and review of laboratory results Abnormal [employer] Phone: Potassium [Moles/Vol] 4.5 mmol/L 3.7 - 5.3 mmol/L [employer] Phone: Sodium [Moles/Vol] 141 mmol/L 135 - 144 mmol/L [employer] Phone: Urea nitrogen (BldV) [Mass/Vol] 76 mg/dL High 8 - 23 mg/dL [employer] Phone: Urea nitrogen/Creatinine (Bld) [Mass ratio] 30 High [employer] Phone: [employer] Phone: Laboratory - Chemistry and C hemistry - challengeOrdered By: Manuel Conner on 12-19-2020 GFR/1.73 sq M.predicted MDRD (S/P/Bld) [Vol rate/Area] [employer] Phone: Comment on above: Average GFR for 70 o r more years old: 75 mL/min/1.73sq m Chronic Kidney Disease: <60 mL/min/1.73sq m Kidney failure: <15 mL/min/1.73sq m eGFR calculated using average adult body mass. Additional eGFR calculator available at: http://www.CyVek/Sijibang.com_crcl_2012.htm Stage 1: Some kidney damage normal GFR Stage 2: Mild kidney damage GFR 60-89 Stage 3: Moderate kidney damage GFR 30-59 Stage 4: Severe kidney damage GFR 15-29 Stage 5: Severe kidney damage GFR <15 ESRD - chronic treatment by dialysis or transplant TroponinOrdered By: Manuel Conner on 12-19-2020 Interpretation and review of laboratory results Abnormal [employer] Phone: Troponin Interp NOT REPORTED [employer] Phone: Troponin T NOT REPORTED <0.03 ng/mL [employer] Phone: Troponin, High Sensitivity 57 ng/L Critically high 0 - 22 ng/L [employer] Phone: Comment on above: High Sensitivity Troponin values cannot be compared with other Troponin methodologies. Patients with high levels of Biotin oral intake (i.e >5mg/day) may have falsely decreased Troponin levels. Samples collected within 8 hours of biotin intake may require additional information for diagnosis. [employer] Phone: Basic Metabolic PanelOrdered By: Manuel Conner on 12-18-2020 Anion gap [Moles/Vol] 14 mmol/L 9 - 17 mmol/L [employer] Phone: Calcium [Mass/Vol] 9.3 mg/dL 8.6 - 10. 4 mg/dL [employer] Phone: Chloride [Moles/Vol] 104 mmol/L 98 - 10 7 mmol/L [employer] Phone: CO2 [Moles/Vol] 22 mmol/L 20 - 31 mmol/L [employer] Phone: Creatinine [Mass/Vol] 4.1 mg/dL High 0.70 - 1.20 mg/dL [employer] Phone: GFR 17 mL/min Low >60 [employer] Phone: GFR Non- 14 mL/min Low >60 [employer] Phone: Glucose [Mass/Vol] 148 mg/dL High 70 - 99 mg/dL [employer] Phone: Potassium [Moles/Vol] 5.2 mmol/L 3.7 - 5.3 mmol/L [employer] Phone: Sodium [Moles/Vol] 140 mmol/L 135 - 144 mmol/L [employer] Phone: Urea nitrogen (BldV) [Mass/Vol] 87 mg/dL High 8 - 23 mg/dL [employer] Phone: Urea nitrogen/Creatinine (Bld) [Mass ratio] 21 High [employer] Phone: Brain Natriuretic PeptideOrd ered By: Manuel Conner on 12-18-2020 BNP Interpretation Pro-BNP Reference Range: [employer] Phone: Comment on above: Rule Out: <300 Pagan Zone: Age <50 300-450 Age 50-75 300-900 Age >75 300-1800 Usually represents mild to moderate HF but other cardiopulmonary causes cannot be ruled out. Rule In: Age <50 >450 Age 50-75 >900 Age >75 >1800 Interpretation and review of laboratory results Abnormal [employer] Phone: Natriuretic peptide B (Bld) [Mass/Vol] 846 pg/mL High <300 [employer] Phone: Comment on above: Pro-BNP results halie ot be compared to BNP results. [employer] Phone: EKG Rhythm StripOrdered By: Unknown Result on 12-18-2020 [employer] Phone: [employer] Phone: Glucose, Whole BloodOrdered By: Manuel Conner on 12-18-2020 Glucose [Mass/Vol] 152 mg/dL High 74 - 100 mg/dL [employer] Phone: Interpretation and review of laboratory results Abnormal [employer] Phone: [employer] Phone: Laboratory - Chemistry and C hemistry - challengeOrdered By: Manuel Conner on 12-18-2020 GFR/1.73 sq M.predicted MDRD (S/P/Bld) [Vol rate/Area] [employer] Phone: Comment on above: Average GFR for 70 o r more years old: 75 mL/min/1.73sq m Chronic Kidney Disease: <60 mL/min/1.73sq m Kidney failure: <15 mL/min/1.73sq m eGFR calculated using average adult body mass. Additional eGFR calculator available at: http://www.Cortex.com/multiple_crcl_2012.htm Stage 1: Some kidney damage normal GFR Stage 2: Mild kidney damage GFR 60-89 Stage 3: Moderate kidney damage GFR 30-59 Stage 4: Severe kidney damage GFR 15-29 Stage 5: Severe kidney damage GFR <15 ESRD - chronic treatment by dialysis or transplant No Panel InformationOrdered By: Manuel Conner on 12-18-2020 Interpretation and review of laboratory results Abnormal [employer] Phone: [employer] Phone: TroponinOrdered By: Manuel Conner on 12-18-2020 Troponin Interp NOT REPORTED [employer] Phone: Troponin T NOT REPORTED <0.03 ng/mL [employer] Phone: Troponin, High Sensitivity 71 ng/L Critically high 0 - 22 ng/L [employer] Phone: Comment on above: High Sensitivity Troponin [...] Consider advancement by 5-7 cm, if able. [employer] Phone: EXAMINATION: ONE XRA Y VIEW OF [...] cardiomegaly. Bony thorax is without acute abnormality. [employer] Phone: Roger, Mhpn Incoming R adiant Results From [employer] - 12/18/2020 1:31 PM EDT EXAMINATION: ONE [...] Consider advancement by 5-7 cm, if able. [employer] Phone: [employer] Phone: XR CHEST PORTABLEOrdered By: Manuel Conner on 12-18-2020 Mild prominence of interstitial markings suggests mild vascular congestion with mild streaky bibasilar atelectasis [employer] Phone: EXAMINATION: ONE XRA Y VIEW OF THE CHEST 12/18/2020 11:18 am COMPARISON: December 17, 2020, chest examination HISTORY: ORDERING SYSTEM PROVIDED HISTORY: Congestion TECHNOLOGIST PROVIDED HISTORY: Congestion FINDINGS: Median sternotomy. Stable cardiomegaly/mild tortuosity of the thoracic aorta Mild streaky bibasilar density. Mild prominence of interstitial markings Possible small right pleural effusion Degenerative changes of the thoracic spine/shoulders [employer] Phone: Roger, Mhpn Incoming R adiant Results From [employer] - 12/18/2020 11:26 AM EDT EXAMINATION: ONE [...] vascular congestion with mild streaky bibasilar atelectasis [employer] Phone: [employer] Phone: APTTOrdered By: Manuel lew on 12-17-2020 aPTT Coag (Bld) [Time] 22.8 s Low Me [employer] Phone: Comment on above: IV Heparin Therapy Range: 62.0-94.0 Interpretation and review of laboratory results Abnormal [employer] Phone: [employer] Phone: Blood Gas, VenousOrdered By: Manuel Conner on 12-17-2020 Shilo Test NOT REPORTED [employer] Phone: Carboxyhemoglobin NOT REPORTED 0.0 - 5.0 % [employer] Phone: Comment on above: FIO2 NOT REPORTED [employer] Phone: HCO3 (Bld) [Moles/Vol] 21.9 mmol/L Low 24.0 - 30.0 mmol/L [employer] Phone: Interpretation and review of laboratory results Abnormal [employer] Phone: Methemoglobin NOT REPORTED 0.0 - 1.9 % [employer] Phone: Mode NOT REPORTED [employer] Phone: Negative Base Excess, Angelo 5.7 mmol/L High 0.0 - 2.0 mmol/L [employer] Phone: NOTIFICATION NOT REPORTED [employer] Phone: NOTIFICATION TIME NOT REPORTED [employer] Phone: O2 Device/Flow/% NOT REPORTED [employer] Phone: Oxygen saturation in Blood 31.2 % Low 60.0 - 85.0 % [employer] Phone: Oxyhemoglobin NOT REPORTED 95.0 - 98.0 % [facility] Work Phone: pCO2, Angelo 50.4 [facility] Work Phone: pCO2, Angelo, Temp Adj NOT REPORTED [facility] Work Phone: [phone] Peep/Cpap NOT REPORTED [facility] Work Phone: [...] Work Phone: Respiratory Rate NOT REPORTED [facility] Work Phone: Sample Site NOT REPORTED [facility] Work Phone: Set Rate NOT REPORTED [facility] Work Phone: Text for Respiratory NOT REPORTED [facility] Work Phone: Total Hb NOT REPORTED 12.0 - 16.0 g/dl [facility] Work Phone: Total Rate NOT REPORTED [facility] Work Phone: VT NOT REPORTED [facility] Work Phone: [facility] Work Phone: Brain Natriuretic PeptideOrd ered By: Manuel Conner on 12-17-2020 BNP Interpretation Pro-BNP Reference Range: [facility] Work Phone: Comment on above: Rule Out: <300 Pagan Zone: Age <50 300-450 Age 50-75 300-900 Age >75 300-1800 Usually represents mild to moderate HF but other cardiopulmonary causes cannot be ruled out. Rule In: Age <50 >450 Age 50-75 >900 Age >75 >1800 Natriuretic peptide B (Bld) [Mass/Vol] 1428 pg/mL High <300 [employer] Phone: Comment on above: Pro-BNP results halie ot be compared to BNP results. CBC Auto DifferentialOrdered By: Manuel Conner on 12-17-2020 Absolute Eos # 0.03 [employer] Phone: Absolute Immature Granulocyte 0.03 [employer] Phone: Absolute Lymph # 0.96 Low [employer] Phone: Absolute Bryan # 0.52 [employer] Phone: Basophils (Bld) [#/Vol] 10*3/uL [employer] Phone: Basophils/100 WBC (Bld) 0 % 0 - 2 % [employer] Phone: Differential Type NOT REPORTED [employer] Phone: Eosinophils/100 WBC (Bld) 0 % Low 1 - 4 % [employer] Phone: Hematocrit (Bld) [Volume fraction] 37.2 % Low 40.7 - 50.3 % [employer] Phone: Hemoglobin.gastrointest inal spec 1 Ql (Stl) 11.5 g/dL Low 13.0 - 17.0 g/dL [employer] Phone: Immature granulocytes/100 WBC (Bld) 0 % 0 [employer] Phone: Interpretation and review of laboratory results Abnormal [employer] Phone: Lymphocytes/100 WBC (Bld) 11 % Low 24 - 43 % [employer] Phone: MCH (RBC) [Entitic mass] 28.5 pg 25.2 - 33.5 pg [employer] Phone: MCHC (RBC) [Mass/Vol] 30.9 g/dL 28.4 - 34.8 g/dL [employer] Phone: MCV (RBC) [Entitic vol] 92.3 fL 82.6 - 102.9 fL [employer] Phone: Monocytes/100 WBC (Bld) 6 % 3 - 12 % [employer] Phone: NRBC Automated 0.0 0.0 per 100 WBC [employer] Phone: Platelet distribution width (Bld) [Ratio] 13.0 % 11.8 - 14.4 % [employer] Phone: Platelet Estimate NOT REPORTED [employer] Phone: Platelet mean volume (Bld) [Entitic vol] NOT REPORTED 8.1 - 13.5 fL [employer] Phone: Platelets (Bld) [#/Vol] See Reflexed IPF Result [employer] Phone: RBC (Bld) [#/Vol] 4.03 10*6/uL Low 4.21 - 5.77 m/uL [employer] Phone: RBC (Bld) [#/Vol] NOT REPORTED [employer] Phone: Segmented neutrophils/100 WBC (Bld) 82 % High 36 - 65 % [employer] Phone: Segs Absolute 6.94 [employer] Phone: WBC (Bld) [#/Vol] 8.5 10*3/uL [employer] Phone: WBC (Bld) [#/Vol] NOT REPORTED [employer] Phone: [employer] Phone: COVID-19, RapidOrdered By: Agnieszka munozsloan Finneyjodie on 12-17-2020 SARS-CoV-2 (COVID-19) RNA JOYCE+probe Ql (Unsp spec) Not detected Not Detected [employer] Phone: Comment on above: Rapid NAAT: The [...] management decisions. Fact sheet for Healthcare Providers: https://www.fda.gov/media/408041/download Fact sheet for Patients: https://www.fda.gov/media/622761/download Methodology: Isothermal Nucleic Acid Amplification Specimen Description .NASOPHARYNGEAL SWAB [employer] Phone: [employer] Phone: CT HEAD WO CONTRASTOrdered B y: Manuel Conner on 12-17-2020 No acute intracrania l abnormality. 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 Minimal parenchymal volume loss. Minimal chronic microvascular disease. [employer] Phone: EXAMINATION: CT OF T HE HEAD [...] of the visualized skull or soft tissues. [employer] Work Phone: Roger, Mhpn Incoming R adiant Results From [employer] - 12/17/2020 9:36 AM EDT EXAMINATION: CT OF THE HEAD WITHOUT CONTRAST 12/17/2020 9:21 am TECHNIQUE: CT of the head was performed without the administration of intravenous contrast. Dose modulation, iterative reconstruction, and/or weight based adjustment of the mA/kV was utilized to reduce the radiation dose to as low as reasonably achievable. COMPARISON: None. HISTORY: ORDERING SYSTEM PROVIDED HISTORY: ams TECHNOLOGIST PROVIDED HISTORY: [facility] Decision Support Exception - unselect if not [...] parenchymal volume loss. Minimal chronic microvascular disease. [employer] Phone: [employer] Phone: Comprehensive Metabolic Pane l w/ Reflex to MGOrdered By: Manuel Conner on 12-17-2020 Albumin [Mass/Vol] 4 g/dL 3.5 - 5.2 g/dL [employer] Phone: Albumin/Globulin [Mass ratio] 1.3 {ratio} [employer] Phone: ALP (Bld) [Catalytic activity/Vol] 66 U/L 40 - 129 U/L [employer] Phone: ALT [Catalytic activity/Vol] 12 U/L 5 - 41 U/L [employer] Phone: Anion gap [Moles/Vol] 19 mmol/L High 9 - 17 mmol/L [employer] Phone: AST [Catalytic activity/Vol] 18 U/L <40 [employer] Phone: Bilirubin [Mass/Vol] 0.16 mg/dL Low 0.3 - 1 .2 mg/dL [employer] Phone: Calcium [Mass/Vol] 8.8 mg/dL 8.6 - 10. 4 mg/dL [employer] Phone: Chloride [Moles/Vol] 102 mmol/L 98 - 10 7 mmol/L [employer] Phone: CO2 [Moles/Vol] 19 mmol/L Low 20 - 31 mmol/L [employer] Phone: Creatinine [Mass/Vol] 6.59 mg/dL Critically high 0.7 0 - 1.20 mg/dL [employer] Phone: Free PSA/Total PSA [Mass fraction] 7.0 g/dL 6.4 - 8.3 g/dL [employer] Phone: GFR 10 mL/min Low >60 [employer] Work Phone: GFR Non- 8 mL/min Low >60 [employer] Work Phone: Glucose [Mass/Vol] 197 mg/dL High 70 - 99 mg/dL [employer] Phone: Potassium [Moles/Vol] 4.6 mmol/L 3.7 - 5.3 mmol/L [employer] Phone: Sodium [Moles/Vol] 140 mmol/L 135 - 144 mmol/L [employer] Phone: Urea nitrogen (BldV) [Mass/Vol] 96 mg/dL Critically high 8 - 23 mg/dL [employer] Phone: Urea nitrogen/Creatinine (Bld) [Mass ratio] 15 [employer] Work Phone: EKG 12 LeadOrdered By: Kathy Conner on 12-17-2020 Atrial Rate 85 BPM [employer] Phone: [phone] P Lexa -15 degrees [employer] Phone: P-R Interval 224 ms [employer] Phone: Q-T Interval 414 ms [employer] Phone: QRS Duration 120 ms [employer] Phone: QTc Calculation (Bazett) 492 ms [employer] Phone: R Lexa 99 degrees [employer] Phone: T Lexa 44 degrees [employer] Phone: Ventricular Rate 85 BPM [employer] Phone: Sinus rhythm with 1s t degree A-V block Rightward axis Septal infarct , age undetermined Abnormal ECG No previous ECGs available Confirmed by JARON BERNARD ([id number]) on 12/17/2020 11:51:30 PM [employer] Phone: Roger, Mhpn Incoming E kg Results From [employer] - 12/17/2020 11:51 PM EDT Sinus rhythm with 1st degree A-V block Rightward axis Septal infarct , age undetermined Abnormal ECG No previous ECGs available Confirmed by JARON BERNARD ([id number]) on 12/17/2020 11:51:30 PM [employer] Phone: [employer] Phone: Immature Platelet FractionOr dered By: Manuel Conner on 12-17-2020 Interpretation and review of laboratory results Abnormal [employer] Phone: Platelet, Fluorescence 110 Low Me [employer] Phone: Platelet, Immature Fraction 4.6 % 1.1 - 10.3 % [employer] Phone: [employer] Phone: Laboratory - Chemistry and C hemistry - challengeOrdered By: Manuel Conner on 12-17-2020 GFR/1.73 sq M.predicted MDRD (S/P/Bld) [Vol rate/Area] [employer] Phone: Comment on above: Average GFR for 70 o r more years old: 75 mL/min/1.73sq m Chronic Kidney Disease: <60 mL/min/1.73sq m Kidney failure: <15 mL/min/1.73sq m eGFR calculated using average adult body mass. Additional eGFR calculator available at: http://www.[employer]/multiple_crcl_2012.htm Stage 1: Some kidney damage normal GFR Stage 2: Mild kidney damage GFR 60-89 Stage 3: Moderate kidney damage GFR 30-59 Stage 4: Severe kidney damage GFR 15-29 Stage 5: Severe kidney damage GFR <15 ESRD - chronic treatment by dialysis or transplant Lactic AcidOrdered By: Kathy Conner on 12-17-2020 Lactate [Moles/Vol] 1.3 mmol/L 0.5 - 2. 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 Flow artifact in the proximal M1 segments of the bilateral MCAs and intracranial right ICA. The bilateral intracranial vertebral arteries are not imaged. [employer] Phone: EXAMINATION: MRA OF THE HEAD WITHOUT CONTRAST 12/17/2020 1:32 pm TECHNIQUE: MRA of the head was performed utilizing [id number] imaging with MIP images. No intravenous contrast [...] cerebral arteries. No evidence of intracranial aneurysm. [employer] Phone: Roger, Mhpn Incoming R adiant Results From [employer] - 12/17/2020 2:02 PM EDT EXAMINATION: MRA OF THE HEAD WITHOUT CONTRAST 12/17/2020 1:32 pm TECHNIQUE: MRA of the head was performed utilizing [id number]-[id number] imaging with MIP images. No intravenous contrast [...] bilateral intracranial vertebral arteries are not imaged. [employer] Phone: [employer] Phone: MRI BRAIN WO CONTRASTOrdered By: Manuel Conner on 12-17-2020 Addendum by Cristhian Hardin MD on 12/17/2020 2:02 PM ADDENDUM: Absence of normal flow void in left vertebral artery, likely related to severe stenosis versus occlusion. [employer] Phone: No acute intracrania l abnormality. 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 Mild parenchymal volume loss. Mild chronic microvascular disease. 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 [employer] Phone: EXAMINATION: MRI OF THE BRAIN WITHOUT [...] The soft tissues demonstrate no acute abnormality. [employer] Phone: Roger, pn Incoming R adiant Results From [employer] - 12/17/2020 1:55 PM EDT EXAMINATION: MRI [...] internal carotid artery, likely related to occlusion. [employer] Work Phone: [employer] Work Phone: Microscopic UrinalysisOrdere d By: Manuel Conner on 12-17-2020 - [employer] Work Phone: Amorphous, UA NOT REPORTED None [employer] Work Phone: Bacteria, UA NOT REPORTED None [employer] Work Phone: [phone] Casts UA NOT REPORTED /LPF [employer] Work Phone: Crystals, UA NOT REPORTED None /HPF [employer] Work Phone: Epithelial Cells UA 0 TO 2 [employer] Phone: Mucus, UA NOT REPORTED None [employer] Phone: Other Observations UA NOT REPORTED NOT REQ. [facility] Work Phone: RBC, UA 2 TO 5 [employer] Work Phone: Renal Epithelial, UA NOT REPORTED 0 /HPF [employer] Work Phone: Trichomonas, UA NOT REPORTED None [employer] Phone: WBC, UA 0 TO 2 [employer] Phone: Yeast, UA NOT REPORTED None [employer] Phone: [employer] Work Phone: No Panel InformationOrdered By: Manuel Conner on 12-17-2020 Interpretation and review of laboratory results Abnormal [employer] Phone: [employer] Phone: Interpretation and review of laboratory results Abnormal [employer] Phone: [employer] Phone: Protime-INROrdered By: Kathy Conner on 12-17-2020 INR Coag (Bld) [Relative time] 1.1 {INR} [employer] Phone: Comment on above: Non-therapeutic Range: INR = 0.9-1.2 Therapeutic Range: Moderate Anticoagulant Intensity: INR = 2.0-3.0 High Anticoagulant Intensity: INR = 2.5-3.5 PT Coag (PPP) [Time] 13.7 s [employer] Phone: [employer] Phone: TroponinOrdered By: Manuel Conner on 12-17-2020 Interpretation and review of laboratory results Abnormal [employer] Phone: Troponin Interp NOT REPORTED [employer] Phone: Troponin T NOT REPORTED <0.03 ng/mL [employer] Phone: Troponin, High Sensitivity 79 ng/L Critically high 0 - 22 ng/L [employer] Phone: Comment on above: High Sensitivity Troponin values cannot be compared with other Troponin methodologies. Patients with high levels of Biotin oral intake (i.e >5mg/day) may have falsely decreased Troponin levels. Samples collected within 8 hours of biotin intake may require additional information for diagnosis. [employer] Phone: Troponin Interp NOT REPORTED [employer] Phone: Troponin T NOT REPORTED <0.03 ng/mL [employer] Phone: Troponin, High Sensitivity 85 ng/L Critically high 0 - 22 ng/L [employer] Phone: Comment on above: High Sensitivity Troponin values cannot be compared with other Troponin methodologies. Patients with high levels of Biotin oral intake (i.e >5mg/day) may have falsely decreased Troponin levels. Samples collected within 8 hours of biotin intake may require additional information for diagnosis. Urinalysis, reflex to micros copicOrdered By: Manuel Conner on 12-17-2020 Bilirubin Urine Negative NEGATIVE [employer] Phone: Color, UA Yellow Yellow [employer] Work Phone: Glucose, Ur Negative NEGATIVE [employer] Work Phone: Interpretation and review of laboratory results Abnormal [employer] Phone: Ketones Ql (U) Negative NEGATIVE [place] Work Phone: Leukocyte esterase Test strip Ql (U) Negative NEGATIVE [employer] Work Phone: Nitrite, Urine Negative NEGATIVE [employer] Work Phone: pH, UA 5.5 [place] Work Phone: Protein, UA TRACE Abnormal NEGATIVE [employer] Phone: Specific [place], UA 1.025 High [employer] Work Phone: Turbidity UA Clear Clear [place] Work Phone: Urinalysis Comments NOT REPORTED [facility] [employer] Work Phone: Urine Hgb TRACE Abnormal NEGATIVE [employer] Phone: Urobilinogen, Urine Normal Normal [employer] Phone: [employer] Phone: XR CHEST PORTABLEOrdered By: Manuel Conner on 12-17-2020 Mild streaky bibasil ar atelectasis with possible small bilateral pleural effusions [employer] Phone: EXAMINATION: ONE XRA Y VIEW OF THE CHEST 12/17/2020 9:30 am COMPARISON: None. HISTORY: ORDERING SYSTEM PROVIDED HISTORY: Congestion TECHNOLOGIST PROVIDED HISTORY: Congestion FINDINGS: Median sternotomy. Normal cardiopericardial silhouette Low volume lungs. Mild streaky bibasilar densities, possible possible small bilateral pleural effusions. Clear upper lungs Degenerative changes of the thoracic spine/shoulders [employer] Work Phone: Roger, Mhpn Incoming R adiant Results From [employer]acs - 12/17/2020 9:46 AM EDT EXAMINATION: ONE [...] atelectasis with possible small bilateral pleural effusions [place] Work Phone: [employer] Phone: Vital Signs Date Time Vital Sign Value Performing Clinician Facility 07-03-2021 15:01-0400 Body temperature 99.32 [degF] Michael Carballo Other Phone: [facility] 07-03-2021 15:01-0400 Diastolic blood pressure 66 mm[Hg] Michael Carballo Other Phone: [facility] 07-03-2021 15:01-0400 Heart rate 80 /min Michael Carballo Other Phone: [facility] 07-03-2021 15:01-0400 Respiratory rate 22 /min Michael Carballo Other Phone: [facility] 07-03-2021 15:01-0400 SaO2% (BldA) [Mass fraction] 97 % Michael Carballo Other Phone: [facility] 07-03-2021 15:01-0400 Systolic blood pressure 127 mm[Hg] Michael Carballo Other Phone: [facility] 07-03-2021 06:30-0400 Body weight 100.5 kg Michael Carballo Other Phone: [facility] 06-27-2021 13:00-0400 Diastolic blood pressure 69 mm[Hg] MD Michael Carballo Work Phone: [facility] 06-27-2021 13:00-0400 Heart rate 87 /min MD Michael Carballo Work Phone: [facility] 06-27-2021 13:00-0400 Respiratory rate 17 /min MD Michael Carballo Work Phone: [facility] 06-27-2021 13:00-0400 SaO2% (BldA) [Mass fraction] 94 % MD Michael Carballo Work Phone: [facility] 06-27-2021 13:00-0400 Systolic blood pressure 153 mm[Hg] MD Michael Carballo Work Phone: [facility] 06-27-2021 08:00-0400 Body temperature 97.9 [degF] MD Michael Carballo Work Phone: [facility] 06-27-2021 05:44-0400 Body weight 106.5 kg MD Michael Carballo Work Phone: [facility] 06-26-2021 14:12-0400 Body height 182.88 cm MD Michael Carballo Work Phone: [facility] 06-26-2021 00:24-0400 Body height 182.88 cm MD Michael Carballo Work Phone: [facility] 06-26-2021 00:24-0400 Body mass index (BMI) [Ratio] 32.8 kg/m2 MD Michael Carballo Work Phone: [facility] 06-26-2021 00:24-0400 Body temperature 97.7 [degF] MD Michael Carballo Work Phone: [facility] 06-26-2021 00:24-0400 Body weight 109.9 kg MD Michael Carballo Work Phone: [facility] 06-26-2021 00:24-0400 Diastolic blood pressure 100 mm[Hg] MD Michael Carballo Work Phone: [facility] 06-26-2021 00:24-0400 Heart rate 88 /min MD Michael Carballo Work Phone: [facility] 06-26-2021 00:24-0400 Respiratory rate 18 /min MD Michael Carballo Work Phone: [facility] 06-26-2021 00:24-0400 SaO2% (BldA) [Mass fraction] 96 % MD Michael Carballo Work Phone: [facility] 06-26-2021 00:24-0400 Systolic blood pressure 221 mm[Hg] MD Michael Carballo Work Phone: [facility] 12-19-2020 20:01-0400 Diastolic blood pressure 64 mm[Hg] Manuel Conner MD Work Phone: [employer] Work Phone: 12-19-2020 20:01-0400 Systolic blood pressure 182 mm[Hg] Manuel Conner MD Work Phone: [employer] Work Phone: 12-19-2020 19:00-0400 Heart rate 75 /min Manuel Conner MD Work Phone: [employer] Work Phone: 12-19-2020 19:00-0400 Respiratory rate 23 /min Manuel Conner MD Work Phone: [place] Work Phone: 12-19-2020 19:00-0400 SaO2% (BldA) [Mass fraction] 94 % Manuel Conner MD Work Phone: [place] Work Phone: 12-18-2020 06:30-0400 Body temperature 98.29 [degF] Manuel Conner MD Work Phone: [place] Work Phone: Encounters Encounter Date Encounter Type Care Provider Facility Start: 09-28-2022 AUDIT Michael Carballo Work Phone: YX-Smnsjzbije-Paoxjfoj SJW 260 DO Work Phone: Start: 07-24-2022 End: 07-24-[address] MICHAEL CARBALLO . Facility:[facility] Start: 07-15-2022 End: 07-15-[address] MICHAEL CARBALLO . Facility: Start: 07-13-2022 Patient encounter procedure Michael Carballo Work Phone: CT-Spurypbuxw-YEJ [facility] [address] Work Phone: Start: 07-13-2022 Phys/qhp telephone evaluation 11-20 min Michael Carballo Work Phone: IT-Dqyfkpxnth-SAY [place] [address] Work Phone: Start: 07-13-2022 ambulatory MD SCOUT ROMO Facility:[facility] Start: 07-13-2022 End: 07-13-[address] MICHAEL CARBALLO . Facility: Start: 07-09-2022 AUDIT Michael Carballo Work Phone: UW-Jakqdearer-FHR [facility] [address] Work Phone: Start: 06-08-2022 ambulatory Facility:[facility] Start: 06-05-2022 End: 06-05-[address] MICHAEL CARBALLO . Facility: Start: 06-04-2022 End: 06-04-[address] MICHAEL CARBALLO . Facility: Start: 04-14-2022 End: 04-15-2022 ambulatory DONNA ARELLANO [facility] Start: 04-14-2022 End: 04-14-2022 Subsequent hospital visit by physician Michael Carballo Work Phone: [facility] Start: 10-30-2021 End: 10-31-2021 ambulatory Manfred Wilson Facility:[facility] Start: 10-28-2021 End: 10-28-[address] MICHAEL CARBALLO . Facility: Start: 10-15-2021 Patient encounter procedure Michael Carballo Work Phone: XQ-Qwkmwijnyv-VWF [facility] [address] [place] Work Phone: Start: 10-15-2021 ambulatory DO FELICIA ASTORGA Facility:[facility] Start: 08-05-2021 End: 08-06-[address] MICHAEL CARBALLO . Facility: Start: 07-16-2021 Office outpatient vi sit 25 minutes Michael Carballo Work Phone: HV-Gsmevacnet-IZW [facility] [address] [place] Work Phone: Start: 07-16-2021 Patient encounter procedure Michael Carballo Work Phone: KG-Jsvbqgsttm-PUZ [facility] [place] Work Phone: Start: 06-27-2021 End: 07-03-2021 Evaluation and management of inpatient Gene N Bouchra [facility] [id number] Rm [id number] Start: 06-25-2021 End: 06-27-2021 Evaluation and management of inpatient MD Michael Carballo Work Phone: [facility] [place] Start: 06-25-2021 Patient encounter procedure Michael Carballo Work Phone: PY-Tmgvogvuvb-YOX [facility] [address] [place] Work Phone: Start: 06-24-2021 End: 06-24-2021 Patient encounter procedure MD Michael Carballo Work Phone: [facility] Start: 05-28-2021 AUDIT Michael Carballo Work Phone: TQ-Yiqmcguhdi-PLY [facility] [address] [place] Work Phone: Start: 05-27-2021 End: 05-27-2021 Patient encounter procedure MD Michael Carballo Work Phone: [facility] Start: 01-01-2021 Patient encounter procedure Michael Carballo Work Phone: SH-Ntvhidfpov-IRR [facility] [address] [place] Work Phone: Start: 01-01-2021 WANG, Provider : Felicia Astorga, Status: Pen, Time: 2:20 PM Michael Carballo Work Phone: FD-Uxmypicvvi-Oahjxnzl SJW 260 DO Work Phone: Start: 12-31-2020 AUDIT Michael Carballo Work Phone: OS-Yqrujzkfqf-Zniaxdaj SJW 260 DO Work Phone: Start: 12-17-2020 End: 12-19-2020 Emergency department patient visit Manuel Conner MD Work Phone: [facility] ED Comment on above: [place] coma scale t otal score 13-15, at hospital admission (Primary Dx); Acute kidney injury (HCC); Heart replaced by transplant (HCC); Confusion Start: 11-21-2020 AUDIT Michael Carballo Work Phone: JD-Unehnvwlcp-UUB [facility] [address] [place] Work Phone: Start: 10-31-2020 AUDIT Michael Carballo Work Phone: [facility] Work Phone: Procedures Date Procedure [...] Manuel Conner MD Work Phone: Start: 12-17-2020 Radiologic exam ches t single view Manuel Conner MD Work Phone: Start: 12-17-2020 Ct head/brain w/o co ntrast material Manuel Conner MD Work Phone: Start: 12-17-2020 Assay of lipase Manuel Conner MD Work Phone: Start: 12-17-2020 IMMATURE PLATELET FRACTION Manuel Conner MD Work Phone: H/O: heart recipient Heart transplanted Jasper Carballo Work Phone: H/O: heart recipient Heart repla vaibhav by transplant ([facility]) Manuel Conner MD Work Phone: H/O: heart recipient History of heart transplant MD Michael Carballo Work Phone: H/O: heart recipient History of heart transplant MD Michael Carballo Work Phone: Transplantation Of Heart Michael Carballo Work Phone: Comment on above: 2000; Plan of Treatment Date Care Activity Detail Author Start: 07-13-2022 VIRFUCORI, Provider : Montse Villanueva, Status: Pen, Time: 2:00 PM VIRFUVCALEBE, Provider: Montse Villanueva, Status: Pen, Time: 2:00 PM DQ-Yxbykvviyn-KDG [place] [address] Work Phone: Start: 07-13-2022 VIRFUCORI, Provider : Scout Romo, Status: Pen, Time: 1:40 PM VIRFUVHOME, Provider: Scout Romo, Status: Pen, Time: 1:40 PM SE-Fwgwevaybt-SAT [facility] Work Phone: Start: 04-01-2022 VIRFUCORI, Provider : Felicia Astorga, Status: Pen, Time: 1:00 PM VIRFUCORI, Provider: Felicia Astorga, Status: Pen, Time: 1:00 PM VS-Toaanfojdx-DLT [facility] [address] [place] Work Phone: Start: 12-19-2021 Creatinine measurement Creatinine [facility] Work Phone: Start: 12-19-2021 Potassium monitoring Potassium monit [facility] Work Phone: Start: 10-20-2021 Influenza vaccination Flu vaccine (# 1) [facility] Start: 07-16-2021 Patient encounter procedure [facility] Start: 07-03-2021 End: 07-04-2022 Insulin Glargine (Lantus) Injectable Subcutaneous Once ; DOSE = 12 unit(s) SubCutaneous At BedtimeNotes from Pharmacy: [facility] Start: 03-Jul-2021 End: 03-Jul-2022 Ordered: 03-Jul-2021 Magy Galeas Intent [facility] Start: 07-01-2021 End: 07-02-2022 [facility] Comment on above: IF patient HAS a [...] 30-Jun-2021 Jihan Storm Intent [facility] Start: 06-27-2021 End: 06-28-2022 Sodium Chloride 0.9% Injectable Flush Peripheral Line ; via Peripheral LineVolume = 10 mL IntraVenous Flush Every 8 Hours and as Needed Start: 27-Jun-2021 End: 27-Jun-2022 Ordered: 26-Jun-2021 Magy Galeas Intent [facility] Start: 06-26-2021 Duplex scan of upper limb arteries US arterial duplex UE [facility] Start: 12-17-2020 Annual Wellness Visi t (AWV) Annual Wellness Visit (AWV) [facility] [employer] Start: 11-20-2020 Influenza vaccination Flu vaccine (# 1) [employer] Phone: Start: 07-16-2020 COVID-19 Vaccine (3 - Pfizer risk 3-dose series) COVID-19 Vaccine (3 - Pfizer risk 3-dose series) [employer] Phone: Start: 07-16-2020 COVID-19 Vaccine (3 - Pfizer risk series) COVID-19 Vaccine (3 - Pfizer risk series) [facility] [employer] Start: 10-01-2016 Pneumococcal 65+ yrs at Risk Vaccine (2 of 2 - PCV13) Pneumococcal 65+ yrs at Risk Vaccine (2 of 2 - PCV13) [employer] Phone: Start: 10-10-1993 Shingles Vaccine (1 of 2) Shingles Vaccine (1 of 2) [employer] Phone: Start: 10-10-1962 DTaP/Tdap/Td vaccine (1 - Tdap) DTaP/Tdap/Td vaccine (1 - Tdap) [facility] Start: 10-10-1962 Shingles vaccine (1 of 2) Shingles vaccine (1 of 2) [facility] [employer] Start: 10-10-1961 Hepatitis C screening Hepatitis C [facility] [employer] Start: 1955 Depression Screen Depression Screen [facility] Start: 10-10-1953 [facility] Start: 1945 Hepatitis C screening [facility]atitis [facility] Work Phone: Calcium [Mass/volume ] in Serum or Plasma [facility] Work Phone: Carbon dioxide, tota l [Moles/volume] in Serum or Plasma [facility] Work Phone: Chloride [Moles/volu me] in Serum or Plasma [facility] Work Phone: Creatinine and Glomerular filtration rate.predicted panel - Serum, Plasma or Blood [facility] Work Phone: Culture, Blood 1 [facility] Work Phone: Culture, Wound Culture, Wound Microbiology Routine 04/14/2022 3:25 PM EST [facility] Work Phone: Glucose [Mass/volume ] in Serum or Plasma [facility] Work Phone: Goals of care, counseling/discussion [facility] Measurement of renal function [facility] Work Phone: Potassium [Moles/volume] in Serum or Plasma [facility] Work Phone: Sodium [Moles/volume ] in Serum or Plasma [facility] Work Phone: Tacrolimus [Mass/volume] in Blood [facility] Work Phone: End: 12-18-2020 Tacrolimus Level [facility] Work Phone: Comment on above: One Time for 1 Occur rences starting 12/18/2020 until 12/18/2020 End: 12-19-2020 Tacrolimus Level Tacrolimus Level Lab Routine One Time for 1 Occurrences starting 12/19/2020 until 12/19/2020 [facility] Work Phone: Comment on above: One Time for 1 Occur rences starting 12/19/2020 until 12/19/2020 Tacrolimus Level [facility] Work Phone: Urea nitrogen [Mass/volume] in Serum or Plasma [facility] Work Phone: Immunizations Immunization Date Immunization Notes Care Provider Fa cility 03-21-2021 Pfizer-BioNTech COVI D-19 Vacc 30 MCG/0.3ML Intramuscular Suspension Michael Carballo Work Phone: UB-Vlkcscchfh-BAU [facility] [address] [place] Work Phone: 06-18-2020 Pfizer-BioNTech COVI D-19 Vacc 30 MCG/0.3ML Intramuscular Suspension Michael Carballo Work Phone: [facility] Work Phone: 05-27-2020 Pfizer-[employer] COVI D-19 Vacc 30 MCG/0.3ML Intramuscular Suspension Michael Candelario Haris Work Phone: [facility] Work Phone: 12-29-2019 Seasonal trivalent influenza vaccine, adjuvanted, preservative free Michael Palomino Har[facility] Work Phone: [facility] Work Phone: 12-22-2017 Seasonal trivalent influenza vaccine, adjuvanted, preservative free Michael Palomino Haris Work Phone: [facility] Work Phone: 12-28-2016 Seasonal trivalent influenza vaccine, adjuvanted, preservative free Michael Palomino [facility] Work Phone: [facility] Work Phone: 12-24-2015 influenza, high dose seasonal, preservative-free Michael Palomino Haris Work Phone: [facility] Work Phone: 10-02-2015 influenza, seasonal, injectable Michael Palomino Haris Work Phone: [facility] Work Phone: 10-02-2015 pneumococcal polysaccharide vaccine, 23 valent Michael Palomino [facility] Work Phone: [facility] Work Phone: 01-09-2015 influenza, injectabl e, quadrivalent, contains preservative Michael Palomino Har[facility] Work Phone: [facility] Work Phone: 01-03-2013 influenza, seasonal, injectable Michael Palomino Haris Work Phone: [facility] Work Phone: 01-07-2009 influenza virus vacc ine, whole virus Michael Palomino Haris Work Phone: [facility] Work Phone: 01-20-2005 influenza virus vacc ine, whole virus Michael Palomino Carballo Work Phone: [facility] Work Phone: Payers Date Payer Category Payer Self-pay [id number] 1961 Medicaid [id number] 1961 Medicare [id number] 1961 Medicare [id number] 1959 Private Health Insurance [id number] 1943 Unknown [id number] 2.16.8 [id number] 1943 Unknown [id number] 2.16.84 [id number] 1943 Unknown [id number] 2.16.84 [id number] 1943 Unknown [id number] 2.16.84 [id number] 1943 Unknown [id number] 2.16.84 [id number] 1943 Unknown [id number] 2.16.84 [id number] 1943 Unknown [id number] 2.16.84 [id number] 1943 Unknown [id number] 2.16.84 [id number] 1943 Unknown [id number] 2.16. [id number] 1943 Unknown [id number] 2.16. [id number] Unknown Unknown [id number] 2.16.8 [id number] Social History Date Type Detail Facility Former smoker Former smoker [facility] Work Phone: Start: 12-17-2020 Tobacco smoking stat us MOIS Unknown if ever smoked [place] Work Phone: Start: 1945 Sex Assigned At Not on file [employer] Work Phone: Exposure to SARS-CoV -2 (event) Unable to assess [place] Start: 12-13-2020 [facility] Start: 1945 Sex Assigned At Male F [facility] Start: 06-26-2021 End: 06-26-2021 Tobacco smoking status NHIS Ex-smoker (finding) [facility] End: 03-22-[address] [facility] Work Phone: Goals Date Patient Goal Desired Activity /State Functional Status Date Assessment Result Facility 06-27-2021 Functional status Patient at Baseline [facility] Work Phone: Functional observable [facility] Mental Status Date Assessment Result Facility 06-30-2021 Cognitive functi ons [id number] [facility] 06-27-2021 Cognitive function Cognitive Sta tus Patient at Baseline [facility] Work Phone: Clinical Notes 07-05-2000 to 07-03-2021 <item><item><item><item><item><item><item><item><item> Note Date & Type Note Facility 07-03-2021 Hospital Discharge instructions Activity:activity with assistance. May shower.Labs 1 (Modify Template):Lab Test(s): Basic Metabolic Panel, CBC, Tacrolimus levelDate To Be Drawn: 07/07/2021all Results To: Dr. Felicia Moore Results To: [phone] Orders:Blood Glucose Monitoring: ACHSAdditional Instructions: Use of [...] 3-5 times/weekProvider Follow Up:Primary Care Physician: Michael Carballo)Primary Care Physician Physician To Follow at Skilled/Rehab: Primary PhysicianFollow Up Appointment 1:Physician/Dept/Service: Anna Tucker NPReason for Referral: Uncontrolled diabetesCall to Schedule in: 2 weeksLocation[facility] Up Appointment 2:Physician/Dept/Service: Dr. Felicia Astorga / Heart failure and transplantReason for Referral: hospital follow-upLocation: [place] 1800Comments: Our office will call you to set up an appointment either in person or virtually. [facility] 06-27-2021 Discharge summary Note Date/Time June 27, 2021 10:32am [facility] [address] [place] [address] Discharge Summary Signed Patient: Oliverio Escobedo MR#: [id number] : 1945 Acct:[id number] Age/Sex: 75 / M Adm Date: 2 Loc: 3T Room: [address] [place] [address]: Yoshi Hernandez MD Copies to: MD Manfred Olvera([facility] Providers Date of Discharge: 06/27/21 [...] 1 tab PO BID RF: 0 omega 7-vyk-iew-fish oil [Fish Oil] 1,000 mg (120 mg-180 [...] signed by Yoshi Hernandez MD> 06/27/21 1032 [facility] Work Phone: 1(873) 776-455304-08-2022 Progress note Author Bonilla Ortiz [facility] June 27, 2021 10:27am Note Date/Time June 27, 2021 10:2 7am [facility] [address] [place] [address] Cardiology Progress Note Signed Patient: Oliverio Escobedo MR#: [id number] : 1945 Acct:[id number] Age/Sex: 75 / M Adm Date: 2 Loc: 3T Room: [address] [place] [address] Type : ADM INOo Attending Dr: Yoshi Hernandez MD Copies to: ~ Date of Service: 06/27/2021 Subjective Principal diagnosis: Edema w history of orthotopic heart transplant Interval history: Mr. Escobedo is a 75 year old male with known history of orthotopic heart transplantation in 2000 done at [facility] who was admitted to the inpatient hospitalist service last night after presenting from the [facility] with complaints of increasing swelling in both legs and the right arm for several days. The patient is resting comfortably this morning. He did diurese gently yesterday. He currently has no cardiac complaints. His breathing feels comfortable lying flat at rest. Swelling in both feet and calves is still present. NB: The patient has been accepted by the transplant service at [facility]. At this point we are awaiting [...] Agree with transfer to transplant service at [facility] for further management. Plan Thank you very much for this kind consultation and for allowing me to participate in the care of this very pleasant patient. Time spent with patient Time Spent With Patient (min): 20 Documented By: Bonilla Ortiz MD 06/27/21 1024 Signed By: <Electronically signed by Bonilla Ortiz MD> 06/27/21 1027 [facility] Work Phone: 1(102) 503-357404-07-2022 Progress note Author Yoshi Wu [facility] June 26, 2021 6:27pm Note Date/Time June 26, 2021 6:27 pm [facility] [address] [place], [place] [id number] Hospitalist Progress Note Signed Patient: Oliverio Escobedo MR#: [id number] : 1945 Acct:[id number] Age/Sex: 75 / M Adm Date: 2 Loc: Room: [address] [place] [address] Type : ADM INOo Attending Dr: Yoshi [...] Dose Route Start Last Admin Trade Name Freq PRN Reason Stop Dose Admin Acetaminophen 650 [...] Oil 1,000 mg 06/26/21 09:00 06/26/21 09:01 [place]-3/Fish Oil 1,000 Mg Capsule PO 06/26/22 [...] Administration Hydralazine HCl 100 mg 06/26/21 01:00 04/07/22 13:10 Hydralazine 50 Mg Tablet PO 06/26/22 [...] transplant 2000- Documented By: Yoshi Hernandez MD 1822 Signed By: <Electronically signed by Yoshi Hernandez MD> 06/26/21 182 [facility] Work Phone: 1(845) 989-284504-07-2022 Consult note Author Bonilla Ortiz [facility] June 26, 2021 2:26pm Note Date/Time June 26, 2021 2:23 pm [facility] [address] [place] [address] Cardiology Consult Note Signed Patient: Oliverio Escobedo MR#: [id number] : 1945 Acct:[id number] Age/Sex: 75 / M Adm Date: 2 Loc: 3T Room: [address] [place] [address] Type : ADM INOo Attending Dr: Yoshi Hernandez MD Copies to: MD Manfred Olvera([facility]) DO Bonilla Wilson MD~ Cardiology HPI History of Present Illness Consult Date: 06/26/21 Reason for Consult: Bilateral lower extremity swelling Remote history of orthotopic heart transplantation HPI: Mr. Escobedo is a 75 year old male with known history of orthotopic heart transplantation in 2000 done at [facility] who was admitted to the inpatient hospitalist service last night after presenting from the [facility] with complaints of increasing swelling in [...] the results were sent to his transplant stem roller operator in [place]. She doesnot know the results. On my evaluation the patient was undergoing bedside transthoracic echocardiography. Preliminary interpretation of the study shows normal resting left ventricular regional wall motion and systolic function. Ejection fraction appears greater than 55%. There is no notable pericardial or pleural effusion. There is no notable/significant valvular heart disease noted. By report the patient's transplant service at [facility] has been contacted and is [...] PO BID 02/02/17 [History Confirmed 06/25/21] omega 9-aoj-kyw-fish oil 1,000 mg (120 mg-180 mg) capsule [...] x10E3/uL Lymph # (Auto) 1.0 (1.00-4.8) x10E3/uL Bryan # (Auto) 0.5 (0.0-0.8) x10E3/uL Eos # [...] Albumin 3.4 (3.2-5.5) gm/dL Intake and Output 04/06/22 04/07/22 04/07/22 23:59 07:59 15:59 Intake Total 120 / [...] Agree with transfer to transplant service at [facility] for further management. Code(s): Z94.1 - Heart transplant status Plan Thank you very much for this kind consultation and for allowing me to participate in the care of this very pleasant patient. Documented By: Bonilla Ortiz MD 06/26/21 1415 Signed By: <Electronically signed by Bonilla Ortiz MD> 06/26/21 1426 [facility] Work Phone: 1([phone]) 823-397304-07-2022 History and physical note Author Omid Myrick [facility] June 26, 2021 7:44am Note Date/Time June 26, 2021 12:1 6am [facility] [address] [place], [place] [id number] Hospitalist H&P Signed Patient: Oliverio Escobedo MR#: [id number] : 1945 Acct:[id number] Age/Sex: 75 / M Adm Date: 2 Loc: 3T Room: [address] [place] [address] Type : ADM INOo Attending Dr: Yoshi Hernandez MD Copies to: MD Manfred Olvera([facility]) DO Audra Wilson APRN Marwan Wassouf, [...] been trying to schedule an appointment with [facility] stem roller operator but were unable. Patient is hard [...] PO BID 02/02/17 [History Confirmed 06/25/21] omega 1-tjx-caz-fish oil 1,000 mg (120 mg-180 mg) capsule [...] 06/25/21 19: RDW 16.1 % (12.0-14.8) H 06/25/21 19: Plt Count 171 x10E3/uL (150-450) D 06/25/21: MPV 10.0 fl (6.6-10.1) 06/25/21 19:30 Neut % (Auto) 74.6 % (.) 06/25/21 19: Lymph % (Auto) 12.9 % (.) 06/25/21 19:30 Bryan % (Auto) 7.3 % (.) 06/25/21 19:30 Eos % (Auto) 4.6 % (.) 06/25/21: Baso % (Auto) 0.6 % (.) 06/25/21: Neut # (Auto) 5.6 x10E3/uL (1.8-7.7) 06/25/21 19: Lymph # (Auto) 1.0 x10E3/uL (1.00-4.8) 06/25/21 19:30 Bryan # (Auto) 0.5 x10E3/uL (0.0-0.8) 06/25/21 19: Eos # (Auto) 0.3 x10E3/uL (0.0-0.45) 06/25/21: Baso # (Auto) 0.0 x10E3/uL (0.0-0.2) 06/25/21: Nucleated RBC % (auto) 0.1 % (0-0.5) 06/25/21 19: ESR 39 mm/hr (0-19) H 06/25/21 19:30 PT 11.9 Seconds (9.0-12.9) 06/25/21 18:12 INR 1.1 06/25/21 18:12 APTT 33.4 Seconds (25.1-36.5) 06/25/21 18:12 PHA Creatinine Clear 365.00 06/25/21 19:30 Sodium 142 mmol/L (136-146) 06/25/21 19:30 Potassium 4.2 mmol/L (3.5-5.1) 06/25/21: Chloride 106 mmol/L (95-114) 06/25/21 19:30 Carbon Dioxide 24.1 mmol/L (22.0-30.0) 06/25/21 19:30 BUN 41 mg/dL (9-23) H 06/25/21 19:30 Creatinine 2.25 mg/dL (0.64-1.27) H 06/25/21 19:30 Est GFR ( Amer) 34 mL/Min 06/25/21 19:30 Est GFR (Non-Af Amer) 28 mL/Min 06/25/21 19:30 Glucose 177 mg/dL (70-100) H 06/25/21 19:30 Calcium 9.2 mg/dL (8.2-10.2) 06/25/21 19: Total Bilirubin 0.4 mg/dL (0.3-1.2) 06/25/21 19: AST 15 U/L (10-42) 06/25/21:30 ALT 13 U/L (10-60) 06/25/21: Alkaline Phosphatase 57 U/L (32-92) 06/25/21:30 Troponin I High Sens 12 pg/mL (0-20) 06/25/21 19: C-Reactive Prot, Quant 0.9 mg/dL (0.0-1.0) 06/25/21: B-Natriuretic Peptide 165.0 pg/mL (5-100) H 06/25/21 19:30 Total Protein 6.6 gm/dL (6.1-7.9) 06/25/21: Albumin 3.4 gm/dL (3.2-5.5) 06/25/21: Globulin 3.2 gm/dL 06/25/21 19:30 Albumin/Globulin Ratio 1.1 06/25/21 19:30 SARS Antigen [...] MD Documented By: Audra Quinteros APRN 06/25/21 7658 Signed By: <Electronically signed by GABBIE Quinteros> 06/26/21 0057 <Electronically signed by Omid Myrick MD> 06/26/21 8221 [facility] Work Phone: 1(953) 705-684109-30-2021 Evaluation note* Diagnosis Namrata coma scale total score 13-15, at hospital admission- Primary Acute kidney injury (HCC) Acute kidney failure, unspecified Heart replaced by transplant (HCC) Heart replaced by transplant Confusion Unspecified psychosis [facility] Work Phone: [phone]) 119-441809-30-2021 History of Present illness Narrative* 74 yo [...] trazodone, trazodone and aripirazole. Discharged back to [facility] with 2x/week home trips. * Immunosuppression: MMF 250 mg BID, tacrolimus 1.5 mg BID (FK 5.4 on 12/24/20, goal 5-8) * Rejection Hx/DSAs: None documented * Last echo: 12/20/20 CC-Mjlzxecxji-QJO Heather [address]le[address] [place] Work Phone: [phone] 800-796209-28-2021 History of Present illness Narrative* Liliya Baker RN - 12/17/2020 10:31 AM EDT Spoke with nurse from [facility] at this time. They will fax lab work to us from [facility]. documented in this [facility] Work Phone: [phone] History of Present illness Narrative* Mr. Escobedo [...] September 2021. [place] He has started Zoloft for depression. 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 Needs assistance with transfers. He has not had any new doctors appointmetns. * Immunosuppression: MMF 250 mg BID, tacrolimus 1 mg BID (FK 11.0 on 10/10/21, goal 5-8) * Rejection Hx/DSAs: None documented * Last echo: 12/20/20 PG-Dzkqviqgnu-NWV [place] [address] Work Phone: Chief complaint Narrative - [...] 04:20 PM , for a telehealth visit. YN-Souqtmqbnk-AYR Heather [address] [place] Work Phone: Evaluation noteNo assessment information available [facility] Work Phone: Evaluation note* Diagnosis Onset Date Resolution Status Acute kidney injury acute Bilateral edema of lower extremity acute Shortness of breath acute [facility] Work Phone: Evaluation note* Diagnosis Onset Date Resolution Status Acute kidney injury acute Bilateral edema of lower extremity acute History of heart transplant acute Shortness of breath acute [facility] Work Phone: Evaluation note* Psychological: Appropriate [...] cooperative, hard of hearing [facility]* Mr. Escobedo is [...] trazodone, trazodone and aripirazole. Discharged back to [facility] with 2x/week home trips. * Immunosuppression: MMF 250 mg BID, tacrolimus 1.5 mg BID (FK 5.4 on 12/24/20, goal 5-8) * Rejection Hx/DSAs: None documented * Last echo: 12/20/20 CQ-Ihcgxkjbji-SET [employer] [address] [place] Work Phone: History of Present [...] B/L LE edema. Spoke with RN at [facility]; states LE edema has been ongoing for several weeks, with a rash . * Labs drawn 06/24/21; BNP 224 * Immunosuppression: MMF 250 mg BID, tacrolimus 1.5 mg BID (FK 5.4 on 12/24/20, goal 5-8) - FK pendingfrom 06/24/21 from SN[facility] * Rejection Hx/DSAs: None documented * Last echo: 12/20/20 VM-Alptchpzsd-KQX [employer] [address] [place] Work Phone: History of Present illness Narrative* Mr. 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 * Benadryl 25 mg q6h PRN for itching/dry skin. * Immunosuppression: MMF 250 mg BID, tacrolimus 1.5 mg BID (FK 5.5 on 07/03/21, goal 5-8) - FK level pending from 10/11/21 * Rejection Hx/DSAs: None documented * Last echo: 12/20/20 QT-Wbtcofjcxu-DRS Heather [address]le[address] [place] Work Phone: Reason for referral (narrative)* Reason for Referral: HF, DAVID, scabies [facility] Family History No Family History Records FoundUnknown [...] Recorded Date/ Time Advance Directives No May 29 2 022 3:01pm Summary Purpose Additional Source Comments Reason for Visit (unrecogniz ed section and content) Reason Comments Altered Mental Status onset [employer]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; staff state pt would not respond and stared off into space Hypotension [employer] staff from [facility] rn state BP 70s/ANGELICA diastolic Scheduled Active and Recently Administ ered Medications (unrecognized section and content) Medication Order 12/17/2020 12/18/2020 12/19/2020 0.9 % sodium chloride bolus (COMPLETED) 250 mL, IntraVENous, at 250 mL/hr, Administer over 1 Hours, ONCE, On Wed12/17/20 at 1315, For 1 dose 1404 (New Bag - Provider: Sola Dee RN)1450 (Stopped - Provider: Sola Dee RN) aspirin chewable tablet 81 mg 81 mg, [...] 1400 1440 (Given - Provider: Sola Dee RN) hydrALAZINE (APRESOLINE) injection 5 mg (COMPLETED) 5 mg, IntraVENous, ONCE, On Smiley 12/19/20 at 0730, For 1 dose 0750 (Given - Provider: Agnes Davies, IMANI) hydrALAZINE (APRESOLINE) tablet 50 mg (COMPLETED) 50 [...] mg (COMPLETED) 10 mg, IntraVENous, ONCE, On Smiely 12/19/20 at 0615, For 1 dose 0632 [...] is suspension with MINIMUM of SIZE 8 SW[place] 1500 (Given - Provider: Sola Dee RN)2128 (Given - Provider: Minesh Zheng, IMANI) 1037 (Given - Provider: Minesh Zheng RN)2001 (Given - Provider: Minesh Zheng RN - Comment: pt scheduled to leave around 2029, med given early) sertraline (ZOLOFT) tablet 150 mg 150 mg, Per NG tube, DAILY, First dose on Wed12/18/20 at 1345 1440 (Given - Provider: Sola Dee RN) 1029 (Given - Provider: Minesh Zheng RN) tacrolimus (proGRAF) capsule 1.5 mg 1.5 mg, [...] Team Status: Inactive Member Role Status Dates Micheal Carballo MD Primary Care Provider Active JIL Donnelly Attending Provider Active Team Status: Active Member Role Status Dates Michael Carballo MD Primary Care Provider Active Team Status: Active Member Role Status Dates Manfred Wilson DO Primary Care Provider Active Andrew Hernández , DO Emergency Provider Active Omid Myrick MD Admit Provider, Attending Provider Active Team Status: Active Member Role Status Meseret Wilson DO Primary Care Provider Active Team Status: Inactive Member Role Status Dates Manfred Wilson DO Primary Care Provider Active Andrew Hernández , DO Emergency Provider Active Omid Myrick MD Admit Provider Active Yoshi Hernandez MD Attending Provider Active Executive Chairman Relationship Specialty Start Date End Date Michael Carballo [address] [place] [address] PCP - General Specialist 12/17/20 Goals (unrecognized [...] section and content) DATE CREATED AUTHOR 07/14/2021 [facility] DATE CREATED AUTHOR AUTHOR'S ORGANIZ ATION 04/18/2022 [facility] DATE CREATED AUTHOR AUTHOR'S ORGANIZ ATION 07/17/2022 [employer] DATE CREATED AUTHOR AUTHOR'S ORGANIZ ATION 07/31/2022 [facility] DATE CREATED AUTHOR AUTHOR'S ORGANIZ ATION 09/07/2022 [facility] DATE CREATED AUTHOR AUTHOR'S ORGANIZ ATION 09/14/2022 [facility] DATE CREATED AUTHOR AUTHOR'S ORGANIZ ATION 11/21/2022 [facility] FOR RECORDS PERTAINING TO PATIENTS WHO ARE [...] BE BASED ON THE PRIMARY CLINICAL RECORDS. [facility] [facility] provides no warranty or guarantee of the accuracy or completeness of information in this document.
[2023-08-23 08:40] LABS: Bilirubin Urine NEGATIVE (NEGATIVE); Blood Urine NEGATIVE (NEGATIVE); Clarity Urine CLEAR (CLEAR); Color Urine LT. YELLOW (YELLOW); Glucose Urine UA 250 mg/dL (NEGATIVE); Ketones Urine NEGATIVE (NEGATIVE); Leukocyte Esterase Urine NEGATIVE (NEGATIVE); Nitrite Urine NEGATIVE (NEGATIVE); Protein Urine >=300 mg/dL (NEG/TRACE); Urobilinogen Urine 0.2 EU/dL (0.2-1.0)
[2023-08-23 08:41] LABS: Urine Microscopic Indicated YES
[2023-08-23 08:51] LABS: Bacteria Urine NONE SEEN #/HPF (NONE SEEN); Cast Seen? SEEN #/LPF (NONE SEEN); Mucus Urine TRACE (NONE SEEN); RBC Urine NONE SEEN #/HPF (0-2); Squamous Epithelial Cell Urine FEW #/LPF (NONE/RARE); WBC Urine 0-2 #/HPF (NONE SEEN)
[2023-08-23 08:52] LABS: Hyaline Casts Urine RARE; Urine Culture Indicated NO
== END 2023-08-22 22:55 | disposition home or self-care (01) ==
LOC: LAB 22:54
PROVIDERS: Visit Provider Family Medicine
DX: R41.0 Disorientation, unspecified (principal)
CPT/HCPCS: 81001

== ENCOUNTER 2023-08-23 08:21 | Outpatient (REF) | payer MEDICARE, SELFPAY ==
[2023-08-23 08:55] LABS: Estimated Average Glucose 192 mg/dL; Glycohemoglobin A1C 8.3 % (4.5-6.2)
== END 2023-08-23 08:22 | disposition home or self-care (01) ==
LOC: LAB 08:21
PROVIDERS: Visit Provider Family Medicine
DX: N39.0 Urinary tract infection, site not specified (principal); Z51.81 Encounter for therapeutic drug level monitoring
CPT/HCPCS: 36415; 83036

== ENCOUNTER 2023-10-07 05:45 | Outpatient (REF) | payer MEDICARE, SELFPAY ==
--- OUTSIDE RECORDS SUMMARY | 2023-10-08 06:22 | XMS_ITS | CCD ---
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 Name Role Phone Michael Carballo Unavailable Unavailable Unavailable Michael Carballo Primary Care Provider MD Michael Carballo Primary Care Provider [phone] JIL Davies Attending Provider DO Manfred Wilson Primary Care Provider Unavaillifepoint health e DO Andrew Hernández Emergency Provider MD Omid Myrick Admit Provider MD Omid Myrick Attending Provider Al MD Yoshi Campoverde Attending Provider Michael Carballo Unavailable DionPascual wheataashish Unavailable Palliative Care Unavailable Unavailable Gene Shook Unavailable Felicia Astorga Unavailable Michael Carballo Primary Care Provider [phone] DONNA ARELLANO Referring Unavailable MICHAEL CARBALLO Primary [...] Primary Care Unavailable Jaron [employer] Unavailable CRABALLO ., DR MICHAEL Palomino Primary Care Unavailable [...] sources) Allopurinol; Translations: [allopurinol] Drug Allergy 10-16-2018 [facility] (8 sources) ceFAZolin; Translations: [Cefazolin] Drug Allergy 06-25-2021 Rash, [facility] Comment on above: extensive fiery red and warm flat rash (1 source) Allopurinol Drug Allergy [facility] (1 source) ceFAZolin Drug Allergy [facility] (1 source) Allopurinol Drug Allergy 06-25-2021 [facility] Repository Medications Current Medications Medication Drug [...] mg Start: 11-03-2018 take 1 capsule by [facility] once daily in the evening dilTIAZem HCl ER Coated Beads 300 MG Oral Capsule Extended Release 24 Hour take 1 capsule every evening Quantity: 0 Refills: 0 Ordered: 04-Jul-2021 Felicia Astorga DO Start : 03-Nov-2018 Active Start: 11-03-2018 take 1 capsule by [facility] once daily dilTIAZem HCl ER Coated Beads 360 MG Oral Capsule Extended Release 24 Hour TAKE 1 CAPSULE Daily Quantity: 30 Refills: 11 Ordered: 03-Nov-2018 Felicia Astorga DO Start : 03-Nov-2018 Active Start: 11-03-2018 take 1 capsule by [facility] once daily dilTIAZem HCl ER Coated Beads 240 MG Oral Capsule Extended Release 24 Hour TAKE 1 CAPSULE Daily Quantity: 90 Refills: 3 Ordered: 24-Dec-2020 Felicia Astorga DO Start : 03-Nov-2018 Active Start: 10-31-2018 take 1 capsule by [facility] every twenty-four hours dilTIAZem 240 mg/24 hours [...] mg Start: 11-02-2018 take 1 capsule by [facility] every twelve hours Mycophenolate Mofetil 250 MG [...] Tamiko Dsouza Status: Discontinued Generic Substitution Allowed [place] 1-Fhs-Xje-Fish Oil (Fish Oil) 1,000 mg (120 mg-180 mg) Capsule (4 sources) Start: 08-05-2017 take 1 tablet by mouth twice daily [place] 8-Aea-Pmg-Fish Oil (Fish Oil) 1,000 mg (120 mg-180 mg) Capsule Active 1 TAB PO Twice daily August 05, 2017 11:13am Start: 08-05-2017 take 1 tablet by anila th once daily [place] 7-Icy-Xmr-Fish Oil (Fish Oil) 1,000 mg (120 mg-180 mg) Capsule Active 1 TAB PO Daily August 05, 2017 11:13am Start: 08-05-2017 take 1 tablet by anila th twice daily [place] 4-Hhr-Bdd-Fish Oil (Fish Oil) 1,000 mg (120 mg-180 [...] tube 2 times a day only on Tnbkon-Uqbztqkim-Tayrgf Quantity: 24 Refills: 0 Ordered: 21-Jan-2016 Warren [...] liver damage. take 2 tablets by mo [facility] every six hours as [...] Start: 10-15-2021 take 2 tablets by mo [facility] once daily busPIRone HCl - 10 MG Oral Tablet TAKE 2 TABLET Daily Quantity: 0 Refills: 0 Ordered: 15-Oct-2021 DO Start : 15-Oct-2021 Active [facility] busPIRone (BUSPAR) 15 MG [...] Allowed Start: 10-31-2018 take 1 capsule by [facility] every six hours as needed diphenhydrAMINE 25 [...] 1 capsule by mouth twice da padmaja [place]-3 Fatty Acids (FISH OIL) 1000 MG CAPS [...] if Blood Glucose is between 251 - 68044 unit(s) if Blood Glucose is between 301 - 18375 unit(s) if Blood Glucose is between 351 [...] if Blood glucose is between 301 - 84071 unit(s) if Blood glucose is between 351 [...] 02-Jul-2021 Generic Substitution Allowed polyethylene glycol 3350 83784 mg powder for oral solution (7 sources) Osmotic Laxative Start: 10-15-2021 MiraLax Mix-I n [place] 17 GM Oral Packet MIX 1 PACKET [...] Allowed Start: 07-02-2021 take 1 capsule by 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 07-02-2021 Past or Other Problems Problem Classification Problem Date Documented Da te Episodic/Chronic Other gastrointestinal disorders (1 source) Dysphagia, unspecified; Translations: [DYSPHAGIA UNSPECIFIED] Onset: 08-08-2021 Episodic 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 (1 source) SWELLING UPPER/LOW EXTREMITIES 06-27-2021 Comment on above: SWELLING UPPER/LOW E XTREMITIES Results Test Name Value Interpretation Reference Range Facility [facility] 09-14-2022 Lab Reports [id number]:127 Normal [facility] VIT D 25-OH LABCORPon 2022 Vitamin D, 25-Hydroxy 29.5 ng/mL Critically low 30.0-100.0 [facility] Comment on above: Result Comment: Jennifer min D deficiency has been defined by the [place] [employer] and an Endocrine Society practice guideline as a level of serum 25-OH vitamin D less than 20 ng/mL (1,2). The Endocrine Society went on to further define vitamin D insufficiency as a level between 21 and 29 ng/mL (2). 1. IOM ([place] [employer]). 2010. Dietary reference intakes for calcium and D. [place]: The National Academies Press. 2. Ely MF, Brad [place], Kristy ORTEGA, et al. Evaluation, treatment, and prevention of vitamin D deficiency: an Endocrine Society clinical practice guideline. JCEM. 2010; 96(7):1911-30. Performed By: #### V ITADLC #### [facility] [address] [place] [address] Dr. Ronnie Pennington CBC AUTO DIFFon 07-24-2022 BASO # 0.0 103/ul Normal 0.0-0.1 [facility] Comment on above: Performed By: #### C BC #### [facility] [address] [id number] Ronnie Pennington Basophils/100 WBC (Bld) 0.6 % Normal 0.2-2.0 [facility] Comment on above: Performed By: #### C BC #### [facility] [address] [address] [address] Ronnie Pennington EO # 0.1 103/ul Normal 0.0-0.7 [facility] Comment on above: Performed By: #### C BC #### [facility] [address] [address] [address] Ronnie Pennington Eosinophils/100 WBC (Bld) 2.0 % Normal 0.9-7.0 [facility] Comment on above: Performed By: #### C BC #### [facility] [address] [place] [address] Dr. Ronnie Pennington Erythrocyte distribution width (RBC) [Ratio] 13.2 % Normal 11.0-15.0 [facility] Comment on above: Performed By: #### C BC #### [facility] [address] [place] [address] Dr. Ronnie Pennington Hematocrit (Bld) [Volume fraction] 33.3 % Critically low 42.0-54.0 [facility] Comment on above: Performed By: #### C BC #### [facility] [address] [place] [address] Dr. Ronnie Pennington Hemoglobin (Bld) [Mass/Vol] 10.0 g/dL Critically low 14.0-18.0 [facility] Comment on above: Performed By: #### C BC #### [facility] [address] [address] [address] Ronnie Pennington IG # 0.04 10e3/ul Critically high 0.00-0.03 [facility] Comment on above: Performed By: #### C BC #### [facility] [address] [address] [address] Ronnie Pennington IG % 0.6 % Critically high 0.0-0.5 [facility] Comment on above: Performed By: #### C BC #### [facility] [address] [place] [address] Dr. Ronnie Pennington LYMPH # 1.2 103/ul Normal 1.2-3.8 [facility] Comment on above: Performed By: #### C BC #### [facility] [address] [place] [address] Dr. Ronnie Pennington Lymphocytes/100 WBC (Bld) 17.9 % Critically low 20.5-60.0 [facility] Comment on above: Performed By: #### C BC #### [facility] [address] [place] [address] Dr. Ronnie Pennington MANUAL DIFF REQ NO Normal [facility] Comment on above: Performed By: #### C BC #### [facility] [address] [place] [address] Dr. Ronnie Pennington MCH (RBC) [Entitic mass] 28.2 pg Normal 25.9-34.0 [facility] Comment on above: Performed By: #### C BC #### [facility] [address] [place] [address] Dr. Ronnie Pennington MCHC (RBC) [Mass/Vol] 30.0 g/dL Normal 29.9-35.2 [facility] Comment on above: Performed By: #### C BC #### [facility] [address] [place] [address] Dr. Ronnie Pennington MCV (RBC) [Entitic vol] 94.1 fL Critically high 80.0-94 .0 [facility] Comment on above: Performed By: #### C BC #### [facility] [address] [place] [address] Dr. Ronnie Pennington MONO # 0.4 103/ul Normal 0.3-0.8 [facility] Comment on above: Performed By: #### C BC #### [facility] [address] [place] [address] Dr. Ronnie Pennington Monocytes/100 WBC (Bld) 6.5 % Normal 1.7-12.0 [facility] Comment on above: Performed By: #### C BC #### [facility] [address] [place], [place] [id number] Dr. Ronnie Pennington NEUT # 4.8 103/ul Normal 1.4-6.5 [facility] Comment on above: Performed By: #### C BC #### [facility] [address] [place] [address] Dr. Ronnie Pennington Neutrophils/100 WBC (Bld) 72.4 % Normal 43.0-75.0 [facility] Comment on above: Performed By: #### C BC #### [facility] [address] [place] [address] Dr. Ronnie Pennington Platelet mean volume (Bld) [Entitic vol] 11.7 fL Normal 9.5-13.5 [facility] Comment on above: Performed By: #### C BC #### [facility] [address] [place] [address] Dr. Ronnie Pennington PLT 137 103/ul Critically low 150-450 [facility] Comment on above: Performed By: #### C BC #### [facility] [address] [place] [address] Dr. Ronnie Pennington RBC 3.54 106/ul Critically low 4.70-6.10 [facility] Comment on above: Performed By: #### C BC #### [facility] [address] [place] [address] Dr. Ronnie Pennington WBC 6.6 103/ul Normal 4.0-11.0 [facility] Comment on above: Performed By: #### C BC #### [facility] [address] [place] [address] Dr. Ronnie Pennington GLYCOHEMOGLOBIN A1Con 2022 ADA RECOMMENDATION SEE BELOW Normal [facility] Comment on above: Result Comment: ADA RECOMMENDED LIMIT 4.0 - 6.0 ADA THERAPEUTIC TARGET < 7.0 ACTION SUGGESTED > 7.0 Performed By: #### A 1C #### [facility] [address] [place] [address] Dr. Ronnie Pennington Glucose [Mass/Vol] 171 mg/dL Normal [facility] Comment on above: Performed By: #### A 1C #### [facility] [address] [place] [address] Dr. Ronnie Pennington HbA1c (Bld) [Mass fraction] 7.6 % Critically high 4.5-6.2 [facility] Comment on above: Performed By: #### A 1C #### [facility] [address] [address] [address] Ronnie Pennington MAGNESIUMon 07-24-2022 Magnesium [Mass/Vol] 2.3 mg/dL Normal 1.8-2.4 [facility] Comment on above: Performed By: #### M G, TSH, CMP ####[facility] [address] [address]DrFreddy Pennington PROF 14(COMP METB)on 023 Albumin [Mass/Vol] 2.8 g/dL Critically low 3.4-5.0 [facility] Comment on above: Performed By: #### M G, TSH, CMP ####[facility] [address] [address]DrFreddy Pennington Albumin/Globulin [Mass ratio] 0.7 {ratio} Normal [facility] Comment on above: Performed By: #### M G, TSH, CMP ####[facility] [address] [address]Dr. Ronnie Pennington ALP [Catalytic activity/Vol] 69 U/L Normal 46-116 [facility] Comment on above: Performed By: #### M G, TSH, CMP ####[facility] [address] [address]DrFreddy Pennington ALT [Catalytic activity/Vol] 8 U/L Critically low 16-63 [facility] Comment on above: Performed By: #### M G, TSH, CMP ####[facility] [address] [id number]. Ronnie Pennington Anion gap [Moles/Vol] 9.9 mmol/L Normal [facility] Comment on above: Performed By: #### M G, TSH, CMP ####[facility] [address] [address]Dr. Ronnie Pennington AST [Catalytic activity/Vol] 9 U/L Critically low 15-37 [facility] Comment on above: Performed By: #### M G, TSH, CMP ####[facility] [address] [address]Dr. Ronnie Pennington Bilirubin [Mass/Vol] 0.2 mg/dL Normal 0.2-1.0 [facility] Comment on above: Performed By: #### M G, TSH, CMP ####[facility] [address] [place], [place] [address]Dr. Ronnie Pennington Calcium [Mass/Vol] 8.9 mg/dL Normal 8.5-10.1 [facility] Comment on above: Performed By: #### M G, TSH, CMP ####[facility] [address] [place], [place] [address]Dr. Ronnie Pennington Chloride [Moles/Vol] 104 mmol/L Normal 98-107 [facility] Comment on above: Performed By: #### M G, TSH, CMP ####[facility] [address] [place], [place] [address]Dr. Ronnie Pennington CO2 [Moles/Vol] 28.4 mmol/L Normal 21.0-32.0 [facility] Comment on above: Performed By: #### M G, TSH, CMP ####[facility] [address] [place], [place] [address]Dr. Ronnie Pennington Creatinine [Mass/Vol] 2.09 mg/dL Critically high 0.70-1.30 [facility] Comment on above: Performed By: #### M G, TSH, CMP ####[facility] [address] [place], [place] [address]Dr. Ronnie Pennington EGFR-AF NICARAGUAN 37 mL/min/1.73m2 Critically low >=60 [facility] Comment on above: Performed By: #### M G, TSH, CMP ####[facility] [address] [place], [place] [address]Dr. Ronnie Pennington EGFR-NON AF NICARAGUAN 31 mL/min/1.73m2 Critically low >=60 [facility] Comment on above: Performed By: #### M G, TSH, CMP ####[facility] [address] [id number]. Ronnie Pennington Globulin (S) [Mass/Vol] 3.9 g/dL Normal [facility] Comment on above: Performed By: #### M G, TSH, CMP ####[facility] [address] [address]Dr. Ronnie Pennington Glucose [Mass/Vol] 165 mg/dL Critically high 74-106 [facility] Comment on above: Performed By: #### M G, TSH, CMP ####[facility] [address] [address]Dr. Ronnie Pennington Potassium [Moles/Vol] 4.3 mmol/L Normal 3.5-5.1 [facility] Comment on above: Performed By: #### M G, TSH, CMP ####[facility] [address] [place], [place] [address]Dr. Ronnie Pennington Protein [Mass/Vol] 6.7 g/dL Normal 6.4-8.2 [facility] Comment on above: Performed By: #### M G, TSH, CMP ####[facility] [address] [place], [place] [address]Dr. Ronnie Pennington Sodium [Moles/Vol] 138 mmol/L Normal 136-145 [facility] Comment on above: Performed By: #### M G, TSH, CMP ####[facility] [address] [place], [place] [address]Dr. Ronnie Pennington Urea nitrogen [Mass/Vol] 33.0 mg/dL Critically high 7.0-18.0 [facility] Comment on above: Performed By: #### M G, TSH, CMP ####[facility] [address] [place], [place] [address]Dr. Ronnie Pennington Urea nitrogen/Creatinine [Mass ratio] 15.8 mg/mg Normal [facility] Comment on above: Performed By: #### M G, TSH, CMP ####[facility] [address] [place], [place] [address]Dr. Ronnie Gorge TSHon 07-24-2022 TSH 2.763 uIU/mL Normal 0.358-3.74 0 [facility] Comment on above: Performed By: #### M G, TSH, CMP ####[facility] [address] [address]Dr. Ronnie Pennington FK506 (TACROLIMUS) WHOLE BLO ODon 07-15-2022 Tacrolimus (FK506), Blood 9.4 ng/mL Normal 2.0-20.0 [facility] Comment on above: Result Comment: Trou gh (immediately following transplant) 15.0 . Trough (steady state, 2 weeks or more after transplant): 3.0 - 8.0 . Performed by LC-MS/MS technology. Performed By: #### F K506T #### [facility] [address] [place] [address] Dr. Ronnie Pennington CBC AUTO DIFFon 07-13-2022 BASO # 0.0 103/ul Normal 0.0-0.1 [facility] Comment on above: Performed By: #### C BC #### [facility] [address] [place] [address] Dr. Ronnie Pennington Basophils/100 WBC (Bld) 0.3 % Normal 0.2-2.0 [facility] Comment on above: Performed By: #### C BC #### [facility] [address] [place] [address] Dr. Ronnie Pennington EO # 0.2 103/ul Normal 0.0-0.7 [facility] Comment on above: Performed By: #### C BC #### [facility] [address] [place] [address] Dr. Ronnie Pennington Eosinophils/100 WBC (Bld) 2.5 % Normal 0.9-7.0 [facility] Comment on above: Performed By: #### C BC #### [facility] [address] [place] [address] Dr. Ronnie Pennington Erythrocyte distribution width (RBC) [Ratio] 13.1 % Normal 11.0-15.0 [facility] Comment on above: Performed By: #### C BC #### [facility] [address] [place] [address] Dr. Ronnie Pennington Hematocrit (Bld) [Volume fraction] 33.4 % Critically low 42.0-54.0 [facility] Comment on above: Performed By: #### C BC #### [facility] [address] [place] [address] Dr. Ronnie Pennington Hemoglobin (Bld) [Mass/Vol] 10.4 g/dL Critically low 14.0-18.0 [facility] Comment on above: Performed By: #### C BC #### [facility] [address] [address] [address] Ronnie Pennington IG # 0.04 10e3/ul Critically high 0.00-0.03 [facility] Comment on above: Performed By: #### C BC #### [facility] [address] [place] [address] Dr. Ronnie Pennington IG % 0.6 % Critically high 0.0-0.5 [facility] Comment on above: Performed By: #### C BC #### [facility] [address] [place] [address] Dr. Ronnie Pennington LYMPH # 1.2 103/ul Normal 1.2-3.8 [facility] Comment on above: Performed By: #### C BC #### [facility] [address] [place] [address] Dr. Ronnie Pennington Lymphocytes/100 WBC (Bld) 16.8 % Critically low 20.5-60.0 [facility] Comment on above: Performed By: #### C BC #### [facility] [address] [place] [address] Dr. Ronnie Pennington MANUAL DIFF REQ NO Normal [facility] Comment on above: Performed By: #### C BC #### [facility] [address] [place] [address] Dr. Ronnie Pennington MCH (RBC) [Entitic mass] 28.5 pg Normal 25.9-34.0 [facility] Comment on above: Performed By: #### C BC #### [facility] [address] [place] [address] Dr. Ronnie Pennington MCHC (RBC) [Mass/Vol] 31.1 g/dL Normal 29.9-35.2 [facility] Comment on above: Performed By: #### C BC #### [facility] [address] [place] [address] Dr. Ronnie Pennington MCV (RBC) [Entitic vol] 91.5 fL Normal 80.0-94.0 [facility] Comment on above: Performed By: #### C BC #### [facility] [address] [place] [address] Dr. Ronnie Pennington MONO # 0.5 103/ul Normal 0.3-0.8 [facility] Comment on above: Performed By: #### C BC #### [facility] [address] [place] [address] Dr. Ronnie Pennington Monocytes/100 WBC (Bld) 7.5 % Normal 1.7-12.0 [facility] Comment on above: Performed By: #### C BC #### [facility] [address] [place] [address] Dr. Ronnie Pennington NEUT # 5.0 103/ul Normal 1.4-6.5 [facility] Comment on above: Performed By: #### C BC #### [facility] [address] [place] [address] Dr. Ronnie Pennington Neutrophils/100 WBC (Bld) 72.3 % Normal 43.0-75.0 [facility] Comment on above: Performed By: #### C BC #### [facility] [address] [place] [address] Dr. Ronnie Pennington Platelet mean volume (Bld) [Entitic vol] 11.8 fL Normal 9.5-13.5 [facility] Comment on above: Performed By: #### C BC #### [facility] [address] [place] [address] Dr. Ronnie Pennington PLT 126 103/ul Critically low 150-450 [facility] Comment on above: Performed By: #### C BC #### [facility] [address] [place] [address] Dr. Ronnie Pennington RBC 3.65 106/ul Critically low 4.70-6.10 [facility] Comment on above: Performed By: #### C BC #### [facility] [address] [address] [address] Ronnie Pennington WBC 6.9 103/ul Normal 4.0-11.0 [facility] Comment on above: Performed By: #### C BC #### [facility] [address] [address] [address] Ronnie Pennington MAGNESIUMon 07-13-2022 Magnesium [Mass/Vol] 2.1 mg/dL Normal 1.8-2.4 [facility] Comment on above: Performed By: #### C MP, MG #### [facility] [address] [address] [address] Ronnie Pennington Office Visit (Cardiology)on 07-13-2022 Follow-up visit Patient Instructions -Please bring a list of your medications to every appointment. -We will schedule you a follow up appointment in # months. We will call you with this date. -If you have any questions, please do not hesitate to contact our office at [phone]. For after hours issues, please call [phone]. Chief Complaint OLIVERIO ESCOBEDO is being seen [...] September 2021. [place] in [place] He has started Zoloft for depression. He [...] TabletTake 1 tablet twice daily MiraLax Mix-In [place] 17 GM Oral PacketMIX 1 PACKET in [...] Albumin [Mass/Vol] 2.9 g/dL Critically low 3.4-5.0 [facility] Comment on above: Performed By: #### C MP, MG #### [facility] [address] [place] [address] Dr. Ronnie Pennington Albumin/Globulin [Mass ratio] 0.7 {ratio} Normal [facility] Comment on above: Performed By: #### C MP, MG #### [facility] [address] [place] [address] Dr. Ronnie Pennington ALP [Catalytic activity/Vol] 71 U/L Normal 46-116 [facility] Comment on above: Performed By: #### C MP, MG #### [facility] [address] [place] [address] Dr. Ronnie Pennington ALT [Catalytic activity/Vol] 12 U/L Critically low 16-63 [facility] Comment on above: Performed By: #### C MP, MG #### [facility] [address] [place] [address] Dr. Ronnie Pennington Anion gap [Moles/Vol] 15.1 mmol/L Normal [facility] Comment on above: Performed By: #### C MP, MG #### [facility] [address] [place] [address] Dr. Ronnie Pennington AST [Catalytic activity/Vol] 11 U/L Critically low 15-37 [facility] Comment on above: Performed By: #### C MP, MG #### [facility] [address] [place] [address] Dr. Ronnie Pennington Bilirubin [Mass/Vol] 0.2 mg/dL Normal 0.2-1.0 [facility] Comment on above: Performed By: #### C MP, MG #### [facility] [address] [place] [address] Dr. Ronnie Pennington Calcium [Mass/Vol] 9.2 mg/dL Normal 8.5-10.1 [facility] Comment on above: Performed By: #### C MP, MG #### [facility] [address] [place] [address] Dr. Ronnie Pennington Chloride [Moles/Vol] 105 mmol/L Normal 98-107 [facility] Comment on above: Performed By: #### C MP, MG #### [facility] [address] [place] [address] Dr. Ronnie Pennington CO2 [Moles/Vol] 28.1 mmol/L Normal 21.0-32.0 [facility] Comment on above: Performed By: #### C MP, MG #### [facility] [address] [place] [address] Dr. Ronnie Pennington Creatinine [Mass/Vol] 2.14 mg/dL Critically high 0.70-1.30 [facility] Comment on above: Performed By: #### C MP, MG #### [facility] [address] [place] [address] Dr. Ronnie Pennington EGFR-AF NICARAGUAN 36 mL/min/1.73m2 Critically low >=60 [facility] Comment on above: Performed By: #### C MP, MG #### [facility] [address] [place] [address] Dr. Ronnie Pennington EGFR-NON AF NICARAGUAN 30 mL/min/1.73m2 Critically low >=60 [facility] Comment on above: Performed By: #### C MP, MG #### [facility] [address] [place] [address] Dr. Ronnie Pennington Globulin (S) [Mass/Vol] 4.0 g/dL Normal [facility] Comment on above: Performed By: #### C MP, MG #### [facility] [address] [place] [address] Dr. Ronnie Pennington Glucose [Mass/Vol] 150 mg/dL Critically high 74-106 [facility] Comment on above: Performed By: #### C MP, MG #### [facility] [address] [place] [address] Dr. Ronnie Pennington Potassium [Moles/Vol] 4.2 mmol/L Normal 3.5-5.1 [facility] Comment on above: Performed By: #### C MP, MG #### [facility] [address] [address] [address] Ronnie Pennington Protein [Mass/Vol] 6.9 g/dL Normal 6.4-8.2 [facility] Comment on above: Performed By: #### C MP, MG #### [facility] [address] [address] [address] Ronnie Pennington Sodium [Moles/Vol] 144 mmol/L Normal 136-145 [facility] Comment on above: Performed By: #### C MP, MG #### [facility] [address] [address] [address] Ronnie Pennington Urea nitrogen [Mass/Vol] 32.0 mg/dL Critically high 7.0-18.0 [facility] Comment on above: Performed By: #### C MP, MG #### [facility] [address] [address] [address] Ronnie Pennington Urea nitrogen/Creatinine [Mass ratio] 15.0 mg/mg Normal [facility] Comment on above: Performed By: #### C MP, MG #### [facility] [address] [address] [address] Ronnie Pennington Transplant SW Assessment Upd [...] Jul 15 2022 12:57PM EST (Author) Normal [facility] Consultation Noteon 06-10-19 Consultation Note [id number] Normal [facility]22 TSH 3.293 uIU/mL Normal 0.358-3.74 0 [facility] Comment on above: Performed By: #### T SH #### [facility] [address] [address] [address] Ronnie Pennington Cult,Woundon 04-19-2022 Cult,Wound Specimen [...] Tetracycline <=1 SUSCEPTIBLE Trimethoprim/Sulfa <=10 SUSCEPTIBLE Susceptible [facility] Comment on above: Performed By: #### W MT #### [facility] [address] [place] [address] Service Station Manager: David Gonzalez MD PROF CHEM 8 ([facility])on Anion gap [Moles/Vol] 14.9 mmol/L Normal [facility] Comment on above: Performed By: #### B MP #### [facility] [address] [address] [address] Ronnie Pennington Calcium [Mass/Vol] 8.8 mg/dL Normal 8.5-10.1 [facility] Comment on above: Performed By: #### B MP #### [facility] [address] [address] [address] Ronnie Pennington Chloride [Moles/Vol] 104 mmol/L Normal 98-107 [facility] Comment on above: Performed By: #### B MP #### [facility] [address] [address] [address] Ronnie Pennington CO2 [Moles/Vol] 26.6 mmol/L Normal 21.0-32.0 [facility] Comment on above: Performed By: #### B MP #### [facility] [address] [address] [address] Ronnie Pennington Creatinine [Mass/Vol] 2.03 mg/dL Critically high 0.70-1.30 [facility] Comment on above: Performed By: #### B MP #### [facility] [address] [address] [address] Ronnie Pennington EGFR-AF NICARAGUAN 39 mL/min/1.73m2 Critically low >=60 [facility] Comment on above: Performed By: #### B MP #### [facility] [address] [address] [address] Ronnie Pennington EGFR-NON AF N[place]ARAGUAN 32 mL/min/1.73m2 Critically low >=60 [facility] Comment on above: Performed By: #### B MP #### [facility] [address] [address] [address] Ronnie Pennington Glucose [Mass/Vol] 209 mg/dL Critically high 74-106 [facility] Comment on above: Performed By: #### B MP #### [facility] [address] [address] [address] Ronnie Pennington Potassium [Moles/Vol] 4.5 mmol/L Normal 3.5-5.1 [facility] Comment on above: Performed By: #### B MP #### [facility] [address] [address] [address] Ronnie Pennington Sodium [Moles/Vol] 141 mmol/L Normal 136-145 [facility] Comment on above: Performed By: #### B MP #### [facility] [address] [address] [address] Ronnie Pennington Urea nitrogen [Mass/Vol] 26.0 mg/dL Critically high 7.0-18.0 [facility] Comment on above: Performed By: #### B MP #### [facility] [address] [address] [address] Ronnie Pennington Urea nitrogen/Creatinine [Mass ratio] 12.8 mg/mg Normal [facility] Comment on above: Performed By: #### B MP #### [facility] [address] [address] [address] Ronnie Pennington Office Visit (Cardiology)on 10-15-2021 [...] last office visit; documented BPs at the [facility] 120-130s/70-80s. Benadryl 25 mg q6h PRN [...] JARON NESS Date: 2021-08-05 15:10 Normal [facility] CBC AND DIFFERENTIALon 07-13 % AUTOMATED IMMATURE GRAN 0.5 % Normal 0.0 - 0.9 [facility] Comment on above: Result Comment: Christal ture Granulocyte Count (IG) includes promyelocytes, myelocytes and metamyelocytes but does not include bands. Percent differential counts (%) should be interpreted in the context of the absolute cell counts (cells/L). Performed By: #### C BCDF #### [address] [address] Basophils (Bld) [#/Vol] 0.02 10*3/uL Normal 0.00 - 0.10 [facility] Comment on above: Performed By: #### C BCDF #### [address] [address] Basophils/100 WBC (Bld) 0.3 % Normal 0.0 - 2.0 [facility] Comment on above: Performed By: #### C BCDF #### [address] [address] Eosinophils (Bld) [#/Vol] 0.07 10*3/uL Normal 0.00 - 0.40 [facility] Comment on above: Performed By: #### C BCDF #### [address] [address] Eosinophils/100 WBC (Bld) 0.9 % Normal 0.0 - 6.0 [facility] Comment on above: Performed By: #### C BCDF #### [address] [address] Erythrocyte distribution width (RBC) [Ratio] 14.4 % Normal 11.5 - 14.5 [facility] Comment on above: Performed By: #### C BCDF #### [address] [address] Hematocrit (Bld) [Volume fraction] 35.5 % Low 41.0 - 52.0 [facility] Comment on above: Performed By: #### C BCDF #### [address] [address] Hemoglobin (Bld) [Mass/Vol] 10.8 g/dL Low 13.5 - 17.5 [facility] Comment on above: Performed By: #### C BCDF #### [address] [address] Lymphocytes (Bld) [#/Vol] 0.42 10*3/uL Low 0.80 - 3.00 [facility] Comment on above: Performed By: #### C BCDF #### [address] [address] Lymphocytes/100 WBC (Bld) 5.6 % Normal 13.0 - 44.0 [facility] Comment on above: Performed By: #### C BCDF #### [address] [address] MCHC (RBC) [Mass/Vol] 30.4 g/dL Low 32.0 - 36.0 [facility] Comment on above: Performed By: #### C BCDF #### [address] [address] MCV (RBC) [Entitic vol] 89 fL Normal 80 - 100 [facility] Comment on above: Performed By: #### C BCDF #### [address] [address] Monocytes (Bld) [#/Vol] 0.07 10*3/uL Normal 0.05 - 0.80 [facility] Comment on above: Performed By: #### C BCDF #### [address] [address] Monocytes/100 WBC (Bld) 0.9 % Normal 2.0 - 10.0 [facility] Comment on above: Performed By: #### C BCDF #### [address] [place] [address] Neutrophils (Bld) [#/Vol] 6.82 10*3/uL High 1.60 - 5.50 [facility] Comment on above: Performed By: #### C BCDF #### [address] [address] Neutrophils/100 WBC (Bld) 91.8 % Normal 40.0 - 80.0 [facility] Comment on above: Performed By: #### C BCDF #### [address] [address] NUCLEATED RBC 0.0 /100 WBC Normal 0.0 - 0.0 [facility] Comment on above: Performed By: #### C BCDF #### [address] [address] Platelets (Bld) [#/Vol] 161 10*3/uL Normal 150 - 450 [facility] Comment on above: Performed By: #### C BCDF #### [address] [address] RBC 3.98 x10E12/L Low 4.50 - 5.90 [facility] Comment on above: Performed By: #### C BCDF #### [address] [address] WBC (Bld) [#/Vol] 7.4 10*3/uL Normal 4.4 - 11.3 [facility] Comment on above: Performed By: #### C BCDF #### [address] [address] Complete Blood Count + Diffe rentialon 07-13-2021 Basophils/100 WBC (Bld) 0.3 % 0.0 - 2.0 [facility] [address] [place] Work Phone: Erythrocyte distribution width (RBC) [Ratio] 14.4 % See Below [facility] [employer] [address] [place] Work Phone: Comment on above: Reference Range: 11. 5 - 14.5 Hematocrit (Bld) [Volume fraction] 35.5 % below low threshold See Below [facility] [address] [place] Work Phone: Comment on above: Reference Range: 41. 0 - 52.0 Hemoglobin (Bld) [Mass/Vol] 10.8 g/dL below low threshold See Below [facility] [address] [place] Work Phone: Comment on above: Reference Range: 13. 5 - 17.5 Lymphocytes/100 WBC (Bld) 5.6 % See Below [facility] [address] [place] Work Phone: Comment on [...] % 2.0 - 10.0 [facility] [address] [place] Work Phone: Neutrophils/100 WBC (Bld) 91.8 % See Below [facility] [address] [place] Work Phone: Comment on above: Reference Range: 40. 0 - 80.0 Platelets (Bld) [#/Vol] 161 10*3/uL 150 - 450 [facility] [address] [place] Work Phone: RBC (Bld) [#/Vol] 3.98 {x10E12/L} below low threshold See Below [facility] [address] [place] Work Phone: Comment on above: Reference Range: 4.5 0 - 5.90 WBC (Bld) [#/Vol] 7.4 10*3/uL 4.4 - 11.3 [facility] [employer] [address] [place] Work Phone: Complete Blood Count + Differential 0.02 {x10E9/L} See Below [facility] [address] [place] Work Phone: Comment on above: Reference Range: 0.0 0 - 0.10 Complete Blood Count + Differential 0.07 {x10E9/L} See Below [facility] [address] [place] Work Phone: Comment on above: Reference Range: 0.0 0 - 0.40 Reference Range: 0.0 5 - 0.80 Complete Blood Count + Differential 0.42 {x10E9/L} below low threshold See Below [facility] [address] [place] Work Phone: Comment on above: Reference Range: 0.8 0 - 3.00 Complete Blood Count + Differential 6.82 {x10E9/L} above high threshold See Below [facility] [place] [employer] [address] [place] Work Phone: Comment on above: Reference Range: 1.6 0 - 5.50 Complete Blood Count + Differential 0.9 % 0.0 - 6.0 [facility] [place] [employer] [address] [place] Work Phone: Complete Blood Count + Differential 0.5 % 0.0 - 0.9 [facility] [address] [employer] [place] Work Phone: Comment on above: Immature Granulocyte Count (IG) includes promyelocytes, myelocytes and metamyelocytes but does not include bands. Percent differential counts (%) should be interpreted in the context of the absolute cell counts (cells/L). Complete Blood Count + Differential 0.0 {/100_WBC} 0.0 - 0.0 [facility] [address] [place] Work Phone: Coronavirus 2019 RNA by PCR, Symptomaticon 07-03-2021 Date and time of symptom onset [id number] [facility] [address] [place] Work Phone: Coronavirus 2019 RNA by PCR, Symptomatic Not detected Normal See Below [facility] [address] [place] Work Phone: Comment on above: SOURCE: Nasal, Nasop haryngealReference Range: Not Detected.This test has received FDA Emergency Use Authorization (EUA) and has been verified by [facility] ([facility]). This test is only authorized for the duration of time that circumstances exist to justify the authorization of the emergency use of in vitro diagnostic tests for the detection of SARS-CoV-2 virus and/or diagnosis of COVID-19 infection under section 564(b)(1) of the Act, 21 U.S.C. 360bbb-3(b)(1), unless the authorization is terminated or revoked sooner. [facility] is certified under CLIA-88 as qualified to perform high complexity testing. Testing is performed in the [facility] located at [address] [place] [address].SARS-CoV-2/Flu/RSV Multiplex Test: Fact sheet for providers: https://www.fda.gov/media/678560/downloadFact sheet for patients: https://www.fda.gov/media/475697/download Laboratory - Chemistry and C hemistry - challengeon 07-03-2021 Glucose [Mass/Vol] 330 mg/dL above high threshold 74 - 99 [facility] [address] [place] Work Phone: Glucose [Mass/Vol] 277 mg/dL above high threshold 74 - 99 [facility] [address] [place] Work Phone: Anion gap [Moles/Vol] 15 mmol/L 10 - 20 [facility] [address] [place] Work Phone: Calcium [Mass/Vol] [...] high threshold 74 - 99 [facility] [address] [place] Work Phone: Potassium [Moles/Vol] 3.9 mmol/L 3.5 - 5.3 [facility] [address] [place] Work Phone: [phone] Sodium [Moles/Vol] 138 mmol/L 136 - 145 [facility] [address] [place] Work Phone: [phone] Urea nitrogen [Mass/Vol] 35 mg/dL above high [...] below low threshold See Below [facility] [address] [place] Work Phone: Comment on above: Reference Range: 32. 0 - 36.0 MCV (RBC) [Entitic vol] 89 fL 80 - 100 [facility] [address] [place] Work Phone: Platelets (Bld) [#/Vol] 171 10*3/uL 150 - 450 [facility] [address] [place] Work Phone: RBC (Bld) [#/Vol] 3.94 {x10E12/L} below low threshold See Below [facility] [address] [place] Work Phone: Comment on above: Reference Range: 4.5 0 - 5.90 WBC (Bld) [#/Vol] 6.0 10*3/uL 4.4 - 11.3 [facility] [address] [place] Work Phone: No Panel Informationon 07-03 38 {mL/min/1.73m2} Abnormal >90 [facility] [address] [place] Work Phone: Comment on above: CALCULATIONS OF ERNST MATED GFR ARE PERFORMED USING THE 2020 CKD-EPI STUDY REFIT EQUATION WITHOUT THE RACE VARIABLE FOR THE IDMS-TRACEABLE CREATININE METHODS.https://jasn.asnjournals.org/content/early// ASN.7080199649 0.0 {/100_WBC} 0.0-0.0 [facility] [address] [place] Work Phone: Tacrolimuson 07-03-2021 Tacrolimus (Bld) [Mass/Vol] 5.5 ng/mL 2.0 - 15.0 [facility] [address] [place] Work Phone: Comment on above: NOTE: Result was obt ained using a chemiluminescent microparticle immunoassay (CMIA) on the [employer] Analyst i system.Optimal therapeutic ranges for immuno-suppressant drugs [...] high threshold 74 - 99 [facility] [address] [place] Work Phone: [phone] Glucose [Mass/Vol] 286 mg/dL above high threshold 74 - 99 [facility] [address] [place] Work Phone: [phone] Glucose [Mass/Vol] 269 mg/dL above high threshold 74 - 99 [facility] [address] [place] Work Phone: [phone] Anion gap [Moles/Vol] 15 mmol/L 10 - 20 [facility] [address] [place] Work Phone: [phone] Calcium [Mass/Vol] 9.1 mg/dL 8.6 - 10.6 [facility] [address] [place] Work Phone: [phone] Chloride [Moles/Vol] 102 mmol/L 98 - 107 [facility] [address] [place] Work Phone: [phone] CO2 [Moles/Vol] 27 mmol/L 21 - 32 [facility] [address] [place] Work Phone: [phone] Creatinine [Mass/Vol] 1.97 mg/dL above high threshold See Below [facility] [address] [place] Work Phone: Comment on above: Reference Range: 0.5 0 - 1.30 Glucose [Mass/Vol] 197 mg/dL above high threshold 74 - 99 [facility] [address] [place] Work Phone: Potassium [Moles/Vol] 4.1 mmol/L 3.5 - 5.3 [facility] [address] [place] Work Phone: Sodium [Moles/Vol] 140 mmol/L 136 - 145 [facility] [address] [place] Work Phone: [phone] Urea nitrogen [Mass/Vol] 41 mg/dL above high threshold 6 - 23 [facility] [address] [place] Work Phone: [phone] Glucose [Mass/Vol] 201 mg/dL above high threshold 74 - 99 [facility] [address] [place] Work Phone: Laboratory - Hematology and Cell countson 07-02-2021 Erythrocyte distribution width (RBC) [Ratio] 14.1 % See Below [facility] [address] [place] Work Phone: [phone] Comment on above: Reference Range: 11. 5 [...] below low threshold See Below [facility] [address] [place] Work Phone: Comment on above: Reference Range: 32. 0 - 36.0 MCV (RBC) [Entitic vol] 88 fL 80 - 100 [facility] [address] [place] Work Phone: Platelets (Bld) [#/Vol] 160 10*3/uL 150 - 450 [facility] [address] [place] Work Phone: RBC (Bld) [#/Vol] 3.82 {x10E12/L} below low threshold See Below [facility] [address] [place] Work Phone: Comment on [...] RACE VARIABLE FOR THE IDMS-TRACEABLE CREATININE METHODS.https://jasn.asnjournals.org/content/early// ASN.7509707743 0.0 {/100_WBC} 0.0-0.0 [facility] [address] [place] Work Phone: Tacrolimuson 07-02-2021 Tacrolimus (Bld) [Mass/Vol] 7.6 ng/mL 2.0 - 15.0 [facility] [address] [place] Work Phone: Comment on above: NOTE: Result was obt ained using a chemiluminescent microparticle immunoassay (CMIA) on the [employer] Analyst i system.Optimal therapeutic ranges for immuno-suppressant drugs depend upon an individualpatient's current clinical state, type oforgan transplant, time post-transplant,co-administration of other immunosuppressants,and other clinical factors. The results ofthis test should be correlated with additionalclinical and laboratory data before changesin treatment regimens are made. Hemoglobin A1Con 07-01-2021 Glucose [Mass/Vol] 194 mg/dL [facility] [address] [place] Work Phone: HbA1c (Bld) [Mass fraction] 8.4 % Abnormal [facility] [address] [place] Work Phone: Comment on above: Diagnosis of Diabete s-Adults Non-Diabetic: < or = 5.6% Increased risk for developing diabetes: 5.7-6.4% Diagnostic of diabetes: > or = 6.5%. Monitoring of Diabetes Age (y) Therapeutic Goal (%) Adults: >18 <7.0 Pediatrics: 13-18 <7.5 7-12 <8.0 0- 6 7.5-8.5 [place]. Diabetes Care 33(S1), Mar 2009. Laboratory - Chemistry and C hemistry - challengeon 07-01-2021 Glucose [Mass/Vol] 188 mg/dL above high threshold 74 - 99 [facility] [address] [place] Work Phone: Glucose [Mass/Vol] 258 mg/dL above high threshold 74 - 99 [facility] [address] [place] Work Phone: Glucose [Mass/Vol] 321 mg/dL above high threshold 74 - 99 [facility] [address] [place] Work Phone: Anion gap [Moles/Vol] 16 mmol/L 10 - 20 [facility] [address] [place] Work Phone: Calcium [Mass/Vol] 8.8 mg/dL 8.6 - 10.6 [facility] [address] [place] Work Phone: Chloride [Moles/Vol] 100 mmol/L 98 - 107 [facility] [address] [place] Work Phone: CO2 [Moles/Vol] 29 mmol/L 21 - 32 [facility] [address] [place] Work Phone: Creatinine [Mass/Vol] [...] mmol/L 3.5 - 5.3 [facility] [address] [place] Work Phone: Sodium [Moles/Vol] 141 mmol/L 136 - 145 [facility] [address] [place] Work Phone: Urea nitrogen [Mass/Vol] 38 mg/dL above high threshold 6 - 23 [facility] [address] [place] Work Phone: Laboratory - Hematology and Cell countson 07-01-2021 Erythrocyte distribution width (RBC) [Ratio] 14.1 % See Below [facility] [address] [place] Work Phone: Comment on above: Reference Range: 11. 5 - 14.5 Hematocrit (Bld) [Volume fraction] 34.6 % below low threshold See Below [facility] [address] [place] Work Phone: Comment on above: Reference Range: 41. 0 - 52.0 Hemoglobin (Bld) [Mass/Vol] 10.7 g/dL below low threshold See Below [facility] [address] [place] Work Phone: Comment on [...] 157 10*3/uL 150 - 450 [facility] [address] [place] Work Phone: RBC (Bld) [#/Vol] 3.83 {x10E12/L} below low threshold See Below [facility] [address] [place] Work Phone: Comment on above: Reference Range: 4.5 0 - 5.90 WBC (Bld) [#/Vol] 6.8 10*3/uL 4.4 - 11.3 [facility] [address] [place] Work Phone: No Panel Informationon 07-01 34 {mL/min/1.73m2} Abnormal >90 [facility] [address] [place] Work Phone: Comment on above: CALCULATIONS OF ERNST MATED GFR ARE PERFORMED USING THE 2020 CKD-EPI STUDY REFIT EQUATION WITHOUT THE RACE VARIABLE FOR THE IDMS-TRACEABLE CREATININE METHODS.https://jasn.asnjournals.org/content// ASN.8937496180 0.0 {/100_WBC} 0.0-0.0 [facility] [address] [place] Work Phone: Tacrolimuson 07-01-2021 Tacrolimus (Bld) [Mass/Vol] 9.3 ng/mL 2.0 - 15.0 [facility] [address] [place] Work Phone: Comment on above: NOTE: Result was obt ained using a chemiluminescent microparticle immunoassay (CMIA) on the [employer] i system.Optimal therapeutic ranges for immuno-suppressant drugs [...] high threshold 74 - 99 [facility] [address] [place] Work Phone: [phone] Glucose [Mass/Vol] 267 mg/dL above high threshold 74 - 99 [facility] [address] [place] Work Phone: [phone] Glucose [Mass/Vol] 289 mg/dL above high threshold 74 - 99 [facility] [address] [place] Work Phone: [phone] Glucose [Mass/Vol] 236 mg/dL above high threshold 74 - 99 [facility] [address] [place] Work Phone: [phone] Anion gap [Moles/Vol] 17 mmol/L 10 - 20 [facility] [address] [place] Work Phone: [phone] Calcium [Mass/Vol] 8.6 mg/dL 8.6 - 10.6 [facility] [address] [place] Work Phone: [phone] Chloride [Moles/Vol] 100 mmol/L 98 - 107 [facility] [address] [place] Work Phone: [phone] CO2 [Moles/Vol] 28 mmol/L 21 - 32 [facility] [address] [place] Work Phone: [phone] Creatinine [Mass/Vol] 2.26 mg/dL above high threshold See Below [facility] [address] [place] Work Phone: [phone] Comment on above: Reference Range: 0.5 0 - 1.30 Glucose [Mass/Vol] 205 mg/dL above high threshold 74 - 99 [facility] [address] [place] Work Phone: [phone] Potassium [Moles/Vol] 3.8 mmol/L 3.5 - 5.3 [facility] [address] [place] Work Phone: Sodium [Moles/Vol] 141 mmol/L 136 - 145 [facility] [address] [place] Work Phone: Urea nitrogen [Mass/Vol] 39 mg/dL above high threshold 6 - 23 [facility] [address] [place] Work Phone: Laboratory - Hematology and Cell countson 06-30-2021 Erythrocyte distribution width (RBC) [Ratio] 14.3 % See Below [facility] [address] [place] Work Phone: Comment on above: Reference Range: 11. 5 - 14.5 Hematocrit (Bld) [Volume fraction] 33.5 % below low threshold See Below [facility] [address] [place] Work Phone: Comment on above: Reference Range: 41. 0 - 52.0 Hemoglobin (Bld) [Mass/Vol] 10.5 g/dL below low threshold See Below [facility] [address] [place] Work Phone: Comment on above: Reference Range: 13. 5 - 17.5 MCHC (RBC) [Mass/Vol] 31.3 g/dL below low threshold See Below [facility] [address] [place] Work Phone: Comment on above: Reference Range: 32. 0 - 36.0 MCV (RBC) [Entitic vol] 91 fL 80 - 100 [facility] [address] [place] Work Phone: Platelets (Bld) [#/Vol] 141 10*3/uL below lo w threshold 150 - 450 [facility] [address] [place] Work Phone: RBC (Bld) [#/Vol] 3.70 {x10E12/L} below low threshold See Below [facility] [address] [place] Work Phone: Comment on above: Reference Range: 4.5 0 - 5.90 WBC (Bld) [#/Vol] 8.2 10*3/uL 4.4 - 11.3 [facility] [address] [place] Work Phone: No Panel Informationon 06-30 29 {mL/min/1.73m2} Abnormal >90 [facility] [address] [place] Work Phone: Comment on above: CALCULATIONS OF ERNST MATED GFR ARE PERFORMED USING THE 2020 CKD-EPI STUDY REFIT EQUATION WITHOUT THE RACE VARIABLE FOR THE IDMS-TRACEABLE CREATININE METHODS.https://jasn.asnjournals.org/content/early/ ASN.5330434273 0.0 {/100_WBC} 0.0-0.0 [facility] [address] [place] Work Phone: Tacrolimuson 06-30-2021 Tacrolimus (Bld) [Mass/Vol] 7.7 ng/mL 2.0 - 15.0 [facility] [address] [place] Work Phone: Comment on above: NOTE: Result was obt ained using a chemiluminescent microparticle immunoassay (CMIA) on the [employer] i system.Optimal therapeutic ranges for immuno-suppressant drugs [...] high threshold 74 - 99 [facility] [address] [place] Work Phone: [phone] Glucose [Mass/Vol] 283 mg/dL above high threshold 74 - 99 [facility] [address] [place] Work Phone: [phone] Anion gap [Moles/Vol] 16 mmol/L 10 - 20 [facility] [address] [place] Work Phone: [phone] Calcium [Mass/Vol] 8.7 mg/dL 8.6 - 10.6 [facility] [address] [place] Work Phone: [phone] Chloride [Moles/Vol] 104 mmol/L 98 - 107 [facility] [address] [place] Work Phone: [phone] CO2 [Moles/Vol] 28 mmol/L 21 - 32 [facility] [address] [place] Work Phone: [phone] Creatinine [Mass/Vol] 1.97 mg/dL above high threshold See Below [facility] [address] [place] Work Phone: [phone] Comment on above: Reference Range: 0.5 0 - 1.30 Glucose [Mass/Vol] 185 mg/dL above high threshold 74 - 99 [facility] [address] [place] Work Phone: [phone] Potassium [Moles/Vol] 3.9 mmol/L 3.5 - 5.3 [facility] [address] [place] Work Phone: [phone] Sodium [Moles/Vol] 144 mmol/L 136 - 145 [facility] [address] [place] Work Phone: [phone] Urea nitrogen [Mass/Vol] 35 mg/dL above high threshold 6 - 23 [facility] [address] [place] Work Phone: [phone] Glucose [Mass/Vol] 186 mg/dL above high threshold 74 - 99 [facility] [address] [place] Work Phone: [phone] Laboratory - Hematology and Cell countson 06-29-2021 Erythrocyte distribution width (RBC) [Ratio] 14.3 % See Below [facility] [address] [place] Work Phone: Comment on above: Reference Range: 11. 5 - 14.5 Hematocrit (Bld) [Volume fraction] 35.8 % below low threshold See Below [facility] [address] [place] Work Phone: Comment on above: Reference Range: 41. 0 - 52.0 Hemoglobin (Bld) [Mass/Vol] 11.0 g/dL below low threshold See Below [facility] [address] [place] Work Phone: Comment on above: Reference Range: 13. 5 - 17.5 MCHC (RBC) [Mass/Vol] 30.7 g/dL below low threshold See Below [facility] [address] [place] Work Phone: Comment on above: Reference Range: 32. 0 - 36.0 MCV (RBC) [Entitic vol] 90 fL 80 - 100 [facility] [address] [place] Work Phone: Platelets (Bld) [#/Vol] 142 10*3/uL below lo w threshold 150 - 450 [facility] [address] [place] Work Phone: RBC (Bld) [#/Vol] 3.96 {x10E12/L} below low threshold See Below [facility] [address] [place] Work Phone: Comment on above: Reference Range: 4.5 0 - 5.90 WBC (Bld) [#/Vol] 7.0 10*3/uL 4.4 - 11.3 [facility] [address] [place] Work Phone: Magnesium, Serumon [...] RACE VARIABLE FOR THE IDMS-TRACEABLE CREATININE METHODS.https://jasn.asnjournals.org/content/early// ASN.1822051121 0.0 {/100_WBC} 0.0-0.0 [facility] [address] [place] Work Phone: Tacrolimuson 06-29-2021 Tacrolimus (Bld) [Mass/Vol] 8.4 ng/mL 2.0 - 15.0 [facility] [address] [place] Work Phone: Comment on above: NOTE: Result was obt ained using a chemiluminescent microparticle immunoassay (CMIA) on the [employer] i system.Optimal therapeutic ranges for immuno-suppressant drugs [...] high threshold 74 - 99 [facility] [address] [place] Work Phone: Glucose [Mass/Vol] 239 mg/dL above high threshold 74 - 99 [facility] [address] [place] Work Phone: Glucose [Mass/Vol] 215 mg/dL above high threshold 74 - 99 [facility] [address] [place] Work Phone: Anion gap [Moles/Vol] 14 mmol/L 10 - 20 [facility] [address] [place] Work Phone: Calcium [Mass/Vol] 8.5 mg/dL below low threshold 8.6 - 10.6 [facility] [address] [place] Work Phone: Chloride [Moles/Vol] 105 mmol/L 98 - 107 [facility] [address] [place] Work Phone: [phone] CO2 [Moles/Vol] 29 mmol/L 21 - 32 [facility] [address] [place] Work Phone: [phone] Creatinine [Mass/Vol] 1.96 mg/dL above high threshold See Below [facility] [address] [place] Work Phone: Comment on above: Reference Range: 0.5 0 - 1.30 Glucose [Mass/Vol] 159 mg/dL above high threshold 74 - 99 [facility] [address] [place] Work Phone: [phone] Potassium [Moles/Vol] 3.8 mmol/L 3.5 - 5.3 [facility] [address] [place] Work Phone: [phone] Sodium [Moles/Vol] 144 mmol/L 136 - 145 [facility] [address] [place] Work Phone: Urea nitrogen [Mass/Vol] 36 mg/dL above high threshold 6 - 23 [facility] [address] [place] Work Phone: Glucose [Mass/Vol] 159 mg/dL above high threshold 74 - 99 [facility] [address] [place] Work Phone: Laboratory - Hematology and Cell countson 06-28-2021 Erythrocyte distribution width (RBC) [Ratio] 14.3 % See Below [facility] [address] [place] Work Phone: Comment on above: Reference Range: 11. 5 - 14.5 Hematocrit (Bld) [Volume fraction] 33.8 % below low threshold See Below [facility] [address] [place] Work Phone: Comment on above: Reference Range: 41. 0 - 52.0 Hemoglobin (Bld) [Mass/Vol] 10.4 g/dL below low threshold See Below [facility] [address] [place] Work Phone: Comment on above: Reference Range: 13. 5 - 17.5 MCHC (RBC) [Mass/Vol] 30.8 g/dL below low threshold See Below [facility] [address] [place] Work Phone: Comment on above: Reference Range: 32. 0 - 36.0 MCV (RBC) [Entitic vol] 90 fL 80 - 100 [facility] [address] [place] Work Phone: Platelets (Bld) [#/Vol] 133 10*3/uL below lo w threshold 150 - 450 [facility] [address] [place] Work Phone: RBC (Bld) [#/Vol] 3.75 {x10E12/L} below low threshold See Below [facility] [address] [place] Work Phone: Comment on above: Reference Range: 4.5 0 - 5.90 WBC (Bld) [#/Vol] 5.7 10*3/uL 4.4 - 11.3 [facility] [address] [place] Work Phone: Lactate, Levelon 06-28-2021 Lactate [Moles/Vol] 0.6 mmol/L 0.4 - 2.0 [facility] [address] [place] Work Phone: Comment on above: [...] RACE VARIABLE FOR THE IDMS-TRACEABLE CREATININE METHODS.https://jasn.asnjournals.org/content/early/ ASN.9852281305 0.0 {/100_WBC} 0.0-0.0 [facility] [address] [place] Work Phone: Tacrolimuson 06-28-2021 Tacrolimus (Bld) [Mass/Vol] 10.4 ng/mL 2.0 - 15.0 [facility] [address] [place] Work Phone: Comment on above: NOTE: Result was obt ained using a chemiluminescent microparticle immunoassay (CMIA) on the [employer] i system.Optimal therapeutic ranges for immuno-suppressant drugs depend upon an individualpatient's current clinical state, type oforgan transplant, time post-transplant,co-administration of other immunosuppressants,and other clinical factors. The results ofthis test should be correlated with additionalclinical and laboratory data before changesin treatment regimens are made. Complete Blood Count + Diffe rentialon 06-27-2021 Basophils/100 WBC (Bld) 0.5 % 0.0 - 2.0 [facility] [address] [place] Work Phone: Erythrocyte distribution [...] below low threshold See Below [facility] [address] [place] Work Phone: Comment on above: Reference Range: 13. 5 - 17.5 Lymphocytes/100 WBC (Bld) 13.1 % See Below [facility] [address] [place] Work Phone: Comment on above: [...] 2.0 - 10.0 [facility] [address] [place] Work Phone: Neutrophils/100 WBC (Bld) 72.5 % See Below [facility] [address] [place] Work Phone: Comment on above: Reference Range: 40. 0 - 80.0 Platelets (Bld) [#/Vol] 137 10*3/uL below lo w threshold 150 - 450 [facility] [address] [place] Work Phone: RBC (Bld) [#/Vol] 3.67 {x10E12/L} below low threshold See Below [facility] [address] [place] Work Phone: Comment on above: Reference Range: 4.5 0 - 5.90 WBC (Bld) [#/Vol] 6.4 10*3/uL 4.4 - 11.3 [facility] [address] [place] Work Phone: Complete Blood Count + Differential 0.03 {x10E9/L} See Below [facility] [address] [place] Work Phone: Comment on above: Reference Range: 0.0 0 - 0.10 Complete Blood Count + Differential 0.28 {x10E9/L} See Below [facility] [address] [place] Work Phone: Comment on above: Reference Range: 0.0 0 - 0.40 Complete Blood Count + Differential 0.57 {x10E9/L} See Below [facility] [address] [place] Work Phone: Comment on above: Reference Range: 0.0 5 - 0.80 Complete Blood Count + Differential 0.83 {x10E9/L} See Below [facility] [address] [place] Work Phone: Comment on above: Reference Range: 0.8 0 - 3.00 Complete Blood Count + Differential 4.61 {x10E9/L} See Below [facility] [address] [place] Work Phone: Comment on above: Reference Range: 1.6 0 - 5.50 Complete Blood Count + Differential 4.4 % 0.0 - 6.0 [facility] [address] [place] Work Phone: Complete Blood Count + Differential 0.5 % 0.0 - 0.9 [facility] [address] [place] Work Phone: Comment on above: Immature Granulocyte Count (IG) includes promyelocytes, myelocytes and metamyelocytes but does not include bands. Percent differential counts (%) should be interpreted in the context of the absolute cell counts (cells/L). Complete Blood Count + Differential 0.0 {/100_WBC} 0.0-0.0 [facility] [address] [place] Work Phone: Glucose Glucometer (dC) [M ass/Vol]Ordered By: Yoshi Wu on 06-27-2021 Glucose [Mass/Vol] 263 mg/dL [facility] Comment on above: Random Glucose Refer ence Range is dependent on time and content of last meal. Glucose of more than 200 mg/dL in a nonstressed, ambulatory subject supports the diagnosis of Diabetes Mellitus. Laboratory - Chemistry and C hemistry - challengeon 06-27-2021 Albumin BCP dye [Mass/Vol] 3.4 g/dL 3.4 - 5.0 [facility] [address] [place] Work Phone: ALP [Catalytic [...] [facility] [address] [place] Work Phone: AST With P-5'-P [Catalytic activity/Vol] 10 U/L 9 - 39 [facility] [address] [place] Work Phone: Bilirubin [Mass/Vol] 0.3 mg/dL 0.0 - 1.2 [facility] [address] [place] Work Phone: Calcium [Mass/Vol] 8.3 mg/dL below low threshold 8.6 - 10.6 [facility] [address] [place] Work Phone: Chloride [Moles/Vol] [...] low threshold 6.4 - 8.2 [facility] [address] [place] Work Phone: Sodium [Moles/Vol] [...] high threshold 74 - 99 [facility] [address] [place] Work Phone: No Panel Informationon 06-27 37 {mL/min/1.73m2} Abnormal >90 [facility] [address] [place] Work Phone: Comment on above: CALCULATIONS OF ERNST MATED GFR ARE PERFORMED USING THE 2020 CKD-EPI STUDY REFIT EQUATION WITHOUT THE RACE VARIABLE FOR THE IDMS-TRACEABLE CREATININE METHODS.https://jasn.asnjournals.org/content// ASN.0950647851 No Panel InformationOrdered By: Yoshi Wu on 06-27-2021 Bedside Glucose Comment Glu2: cleaned meter [facility] Automated erythrocytes count in urine sediment (number/area)Ordered By: Audra Quinteros on 06-26-2021 RBC Auto (Urine sed) [#/Area] 0-1 [HPF] [facility] Automated leukocytes count i n urine sediment (number/area)Ordered By: Audra Quinteros on 06-26-2021 WBC Auto (Urine sed) [#/Area] 0-1 [HPF] [facility] Bilirubin Test strip Ql (U)O rdered By: Audra Quinteros on 06-26-2021 Bilirubin Ql (U) Negative Negative [facility] COVID-19 Positive/NegativeOr dered By: Omid Myrick on 06-26-2021 SARS-CoV-2 (COVID-19) N gene JOYCE+probe Ql (Resp) Negative Negative [facility] Comment on above: Testing for SARS-CoV -2 by RT-PCRThis test was developed and its performance characteristics determined by [employer] ([place] Everywhere) and validated at the [facility]. This test has not been FDA [...] on 06-26-2021 Color (U) Yellow Yellow [facility] Creatinine [Mass/volume] in UrineOrdered By: Audra Quinteros on 06-26-2021 Creatinine (U) [Mass/Vol] 71.5 mg/dL [facility] Comment on above: No reference range e stablished Creatinine and Glomerular fi ltration rate.predicted panel (S/P/Bld)Ordered By: Audra Quinteros on 06-26-2021 Creatinine [Mass/Vol] 1.99 mg/dL 0.64-1.27 [facility] Estimated glomerular filtrat ion rate (GFR) non- AmericanOrdered By: Audra Quinteros on 06-26-2021 GFR/1.73 sq M.predicted among non-blacks MDRD (S/P/Bld) [Vol rate/Area] 33 mL/Min [facility] Ketones Auto test strip (U) [Mass/Vol]Ordered By: Audra Quinteros on 06-26-2021 Ketones (U) [Mass/Vol] Negative Negative [facility] Laboratory - Microbiology an d Antimicrobial susceptibilityOrdered By: Omid Myrick on 06-26-2021 SARS-CoV-2 (COVID-19) RNA JOYCE+probe Ql (Unsp spec) N/A [facility] Laboratory - UrinalysisOrder ed By: Audra Quinteros on 06-26-2021 Hyaline casts LM Ql (Urine sed) 0-8 [LPF] [facility] Nitrite Test strip Ql (U)Ord ered By: Audra Quinteros on 06-26-2021 Nitrite Ql (U) Negative Negative [facility] No Panel InformationOrdered By: Audra Quinteros on 06-26-2021 Estimated GFR () 40 mL/Min [facility] Comment on above: GFR estimated refere nce range: According to KDOQI guidelines, <60 ml/min/1.73m2 is sufficient to diagnose a patient with chronic kidney disease. Pharmacy Creatinine Clearance (Chem 39.80 [facility] Protein Auto test strip (U) [Mass/Vol]Ordered By: Audra Quinteros on 06-26-2021 Protein (U) [Mass/Vol] 300 mg/dL Negative [facility] Serum or plasma calcium abhijit urement (mass/volume)Ordered By: Audra Quinteros on 06-26-2021 Calcium [Mass/Vol] 8.9 mg/dL 8.2-10.2 [facility] Serum or plasma chloride marylin surement (moles/volume)Ordered By: Audra Quinteros on 06-26-2021 Chloride [Moles/Vol] 105 mmol/L 95-114 [facility] Serum or plasma glucose abhijit urement (mass/volume)Ordered By: Audra Quinteros on 06-26-2021 Glucose [Mass/Vol] 194 mg/dL 70-100 [facility] Comment on above: ADA recommended refe rence rangeRandom Glucose Reference Range is dependent on time and content of last meal. Glucose of more than 200 mg/dL in a nonstressed, ambulatory subject supports the diagnosis of Diabetes Mellitus. Serum or plasma potassium me asurement (moles/volume)Ordered By: Omid Myrick on 06-26-2021 Potassium [Moles/Vol] 4.0 mmol/L 3.5-5.[address] [facility] Serum or plasma sodium measu rement (moles/volume)Ordered By: Audra Quinteros on 06-26-2021 Sodium [Moles/Vol] 140 mmol/L 136-146 [facility] Serum or plasma total carbon dioxide measurement (moles/volume)Ordered By: Audra Quinteros on 06-26-2021 CO2 [Moles/Vol] 23.8 mmol/L 22.0-30.0 [facility] Serum or plasma urea nitroge n measurement (mass/volume)Ordered By: Audra Quinteros on 06-26-2021 Urea nitrogen [Mass/Vol] 39 mg/dL 9-23 [facility] Specific gravity Auto test s trip (U) [Rel density]Ordered By: Audra Quinteros on 06-26-2021 Specific gravity (U) [Rel density] 1.015 1.001-1.03 0 [facility] Squamous epithelial cells de tection in urine sediment by light microscopyOrdered By: Audra Quinteros on 06-26-2021 Epithelial cells.squamous LM Ql (Urine sed) None seen [HPF] [facility] Urine bacteria detection by automated methodOrdered By: Audra Quinteros on 06-26-2021 Bacteria Auto Ql (U) None seen None Seen [facility] Urine clarity by refractomet ry automatedOrdered By: Audra Quinteros on 06-26-2021 Clarity Refractometry automated (U) Clear Clear [facility] Urine glucose measurement by automated test strip (mass/volume)Ordered By: Audra Quinteros on 06-26-2021 Glucose Auto test strip (U) [Mass/Vol] Normal mg/dL Normal [facility] Urine hemoglobin detection b y automated test stripOrdered By: Audra Quinteros on 06-26-2021 Hemoglobin Auto test strip Ql (U) Negative Negative [facility] Urine leukocyte esterase det ection by automated test stripOrdered By: Audra Quinteros on 06-26-2021 Leukocyte esterase Auto test strip Ql (U) Negative Negative [facility] Urine sodium measurement (mo les/volume)Ordered By: Audra Quinteros on 06-26-2021 Sodium (U) [Moles/Vol] 94 mmol/L [facility] Comment on above: No reference range e stablished Urobilinogen Auto test strip (U) [Mass/Vol]Ordered By: Audra Quinteros on 06-26-2021 Urobilinogen (U) [Mass/Vol] Normal mg/dL Normal [facility] pH Auto test strip (U)Ordere d By: Audra Quinteros on 06-26-2021 pH (U) 5.5 [pH] 5.0-9.0 [facility] Activated partial thrombopla stin time (aPTT) in platelet poor plasma by coagulation aOrdered By: Andrew Hernández on 06-25-2021 aPTT Coag (PPP) [Time] 33.4 s 25.1-36.5 [facility] Albumin [Mass/volume] in Ser um or PlasmaOrdered By: Andrew Hernández on 06-25-2021 Albumin [Mass/Vol] 3.4 g/dL 3.2-5.5 [facility] Basophils Auto (Bld) [#/Vol] Ordered By: Andrew Hernández on 06-25-2021 Basophils (Bld) [#/Vol] 0.0 10*3/uL 0.0-0.2 [facility] Basophils/100 WBC Auto (Bld) Ordered By: Andrew Hernández on 06-25-2021 Basophils/100 WBC (Bld) 0.6 % [facility] Blood hemoglobin measurement (mass/volume)Ordered By: Andrew Hernández on 06-25-2021 Hemoglobin (Bld) [Mass/Vol] 11.8 g/dL 13.0-17.0 [facility] Blood leukocytes automated c ount (number/volume)Ordered By: Andrew Hernández on 06-25-2021 WBC (Bld) [#/Vol] 7.5 10*3/uL 4.5-11.0 [facility] COVID-19 SOFIAOrdered By: Prasanna Hernández on 06-25-2021 SARS-CoV+SARS-CoV-2 (COVID-19) Ag IA.rapid Ql (Resp) Negative Negative [facility] Comment on above: This is a duplicate Jessi SARS Antigen (GABI) result to be used for statistical tracking purpose only. Creatinine and Glomerular fi ltration rate.predicted panel (S/P/Bld)Ordered By: Andrew Hernández on 06-25-2021 Creatinine [Mass/Vol] 2.25 mg/dL 0.64-1.[address] [facility] Eosinophils Auto (Bld) [#/Vo l]Ordered By: Andrew Hernández on 06-25-2021 Eosinophils (Bld) [#/Vol] 0.3 10*3/uL 0.0-0.45 [facility] Eosinophils/100 WBC Auto (Bl d)Ordered By: Andrew Hernández on 06-25-2021 Eosinophils/100 WBC (Bld) 4.6 % [facility] Erythrocyte distribution wid th Auto (RBC) [Ratio]Ordered By: Andrew Hernández on 06-25-2021 Erythrocyte distribution width (RBC) [Ratio] 16.1 % 12.0-14.8 [facility] Erythrocyte sedimentation ra te by Photometric methodOrdered By: Andrew Hernández on 06-25-2021 ESR Photometric method (Bld) [Velocity] 39 mm/hr 0-19 [facility] Estimated glomerular filtrat ion rate (GFR) non- AmericanOrdered By: Andrew Hernández on 06-25-2021 GFR/1.73 sq M.predicted among non-blacks MDRD (S/P/Bld) [Vol rate/Area] 28 mL/Min [facility] Globulin Calc (S) [Mass/Vol] Ordered By: Andrew Hernández on 06-25-2021 Globulin (S) [Mass/Vol] 3.2 g/dL [facility] Hematocrit Auto (Bld) [Volum e fraction]Ordered By: Andrew Hernández on 06-25-2021 Hematocrit (Bld) [Volume fraction] 36.2 % 38.8-50.0 [facility] Laboratory - Chemistry and C hemistry - challengeOrdered By: Andrew Hernández on 06-25-2021 Natriuretic peptide B (Bld) [Mass/Vol] 165.0 pg/mL 5-100 [facility] Laboratory - CoagulationOrde red By: Andrew Hernández on 06-25-2021 PT Coag (PPP) [Time] 11.9 s 9.0-12.9 [facility] Laboratory - Hematology and Cell countsOrdered By: Andrew Hernández on 06-25-2021 Nucleated RBC/100 WBC (Bld) [Ratio] 0.1 % 0-0.5 [facility] Lymphocytes Auto (Bld) [#/Vo l]Ordered By: Andrew Hernández on 06-25-2021 Lymphocytes (Bld) [#/Vol] 1.0 10*3/uL 1.00-4.8 [facility] Lymphocytes/100 WBC Auto (Bl d)Ordered By: Andrew Hernández on 06-25-2021 Lymphocytes/100 WBC (Bld) 12.9 % [facility] MCH Auto (RBC) [Entitic mass ]Ordered By: Andrew Hernández on 06-25-2021 MCH (RBC) [Entitic mass] 28.1 pg 27.5-35.2 [facility] MCHC Auto (RBC) [Mass/Vol]Or dered By: Andrew eHrnández on 06-25-2021 MCHC (RBC) [Mass/Vol] 32.7 g/dL 32.5-35.[address] [facility] MCV Auto (RBC) [Entitic vol] Ordered By: Andrew Hernández on 06-25-2021 MCV (RBC) [Entitic vol] 86.0 fL 83.5-101 [facility] Monocytes Auto (Bld) [#/Vol] Ordered By: Andrew Hernández on 06-25-2021 Monocytes (Bld) [#/Vol] 0.5 10*3/uL 0.0-0.8 [facility] Monocytes/100 WBC Auto (Bld) Ordered By: Andrew Hernández on 06-25-2021 Monocytes/100 WBC (Bld) 7.3 % [facility] Neutrophils Auto (Bld) [#/Vo l]Ordered By: Andrew Hernández on 06-25-2021 Neutrophils (Bld) [#/Vol] 5.6 10*3/uL 1.8-7.7 [facility] Neutrophils/100 WBC Auto (Bl d)Ordered By: Andrew Hernández on 06-25-2021 Neutrophils/100 WBC (Bld) 74.6 % [facility] No Panel InformationOrdered By: Andrew Hernández on 06-25-2021 SARS Antigen (LFIA) [facility] Estimated GFR () 34 mL/Min [facility] Comment on above: GFR estimated refere nce range: According to KDOQI guidelines, <60 ml/min/1.73m2 is sufficient to diagnose a patient with chronic kidney disease. Pharmacy Creatinine Clearance (Chem 365.00 [facility] Platelet mean volume Auto (B ld) [Entitic vol]Ordered By: Andrew Hernández on 06-25-2021 Platelet mean volume (Bld) [Entitic vol] 10.0 fL 6.6-10.1 [facility] Platelet poor plasma interna tional normalized ratio (INR) by coagulation assay (relatOrdered By: Andrew Hernández on 06-25-2021 INR Coag (PPP) [Relative time] 1.1 {INR} [facility] Comment on above: INR Therapeutic Rang [...] Platelets (Bld) [#/Vol] 171 10*3/uL 150-450 [facility] Comment on above: Delta: 119 on 0453 Protein [Mass/volume] in Ser um or PlasmaOrdered By: Adnrew Hernández on 06-25-2021 Protein [Mass/Vol] 6.6 g/dL 6.1-7.9 [facility] RBC Auto (Bld) [#/Vol]Ordere d By: Andrew Hernández on 06-25-2021 RBC (Bld) [#/Vol] 4.21 10*6/uL 3.90-5.60 [facility] Serum or plasma C reactive p rotein measurement (mass/volume)Ordered By: Andrew Hernández on 06-25-2021 CRP [Mass/Vol] 0.9 mg/dL 0.0-1.0 [facility] Serum or plasma alanine lopez otransferase measurement without P-5'-P (enzymatic activiOrdered By: Andrew Hernández on 06-25-2021 ALT No additional P-5'-P [Catalytic activity/Vol] 13 U/L 10-60 [facility] Serum or plasma albumin/glob ulin mass ratioOrdered By: Andrew Hernández on 06-25-2021 Albumin/Globulin [Mass ratio] 1.1 {ratio} [facility] Serum or plasma alkaline cande sphatase measurement (enzymatic activity/volume)Ordered By: Andrew Hernández on 06-25-2021 ALP [Catalytic activity/Vol] 57 U/L 32-92 [facility] Serum or plasma aspartate am inotransferase measurement (enzymatic activity/volume)Ordered By: Andrew Hernández on 06-25-2021 AST [Catalytic activity/Vol] 15 U/L 10-42 [facility] Serum or plasma calcium abhijit urement (mass/volume)Ordered By: Andrew Hernández on 06-25-2021 Calcium [Mass/Vol] 9.2 mg/dL 8.2-10.2 [facility] Serum or plasma chloride marylin surement (moles/volume)Ordered By: Andrew Hernández on 06-25-2021 Chloride [Moles/Vol] 106 mmol/L 95-114 [facility] Serum or plasma glucose abhijit urement (mass/volume)Ordered By: Andrew Hernández on 06-25-2021 Glucose [Mass/Vol] 177 mg/dL 70-100 [facility] Comment on above: ADA recommended refe rence rangeRandom Glucose Reference Range is dependent on time and content of last meal. Glucose of more than 200 mg/dL in a nonstressed, ambulatory subject supports the diagnosis of Diabetes Mellitus. Serum or plasma potassium me asurement (moles/volume)Ordered By: Andrew Hernández on 06-25-2021 Potassium [Moles/Vol] 4.2 mmol/L 3.5-5.[address] [facility] Serum or plasma sodium measu rement (moles/volume)Ordered By: Andrew Hernández on 06-25-2021 Sodium [Moles/Vol] 142 mmol/L 136-146 [facility] Serum or plasma total biliru bin measurement (mass/volume)Ordered By: Andrew Hernández on 06-25-2021 Bilirubin [Mass/Vol] 0.4 mg/dL 0.3-1.2 [facility] Serum or plasma total carbon dioxide measurement (moles/volume)Ordered By: Andrew Hernández on 06-25-2021 CO2 [Moles/Vol] 24.1 mmol/L 22.0-30.0 [facility] Serum or plasma urea nitroge n measurement (mass/volume)Ordered By: Andrew Hernández on 06-25-2021 Urea nitrogen [Mass/Vol] 41 mg/dL 9-23 [facility] Troponin I.cardiac [Mass/vol ume] in Serum or Plasma by High sensitivity methodOrdered By: Andrew Hernández on 06-25-2021 Troponin I.cardiac High sensitivity method [Mass/Vol] 12 pg/mL 0-20 [facility] Albumin [Mass/volume] in Ser um or PlasmaOrdered By: Julee Davies on 06-24-2021 Albumin [Mass/Vol] 2.9 g/dL 3.2-5.5 [facility] Basophils Auto (Bld) [#/Vol] Ordered By: Julee Davies on 06-24-2021 Basophils (Bld) [#/Vol] 0.0 10*3/uL 0.0-0.2 [facility] Basophils/100 WBC Auto (Bld) Ordered By: Julee Davies on 06-24-2021 Basophils/100 WBC (Bld) 0.6 % [facility] Blood hemoglobin measurement (mass/volume)Ordered By: Julee Davies on 06-24-2021 Hemoglobin (Bld) [Mass/Vol] 10.8 g/dL 13.0-17.0 [facility] Blood leukocytes automated c ount (number/volume)Ordered By: Julee Davies on 06-24-2021 WBC (Bld) [#/Vol] 6.6 10*3/uL 4.5-11.0 [facility] Creatinine and Glomerular fi ltration rate.predicted panel (S/P/Bld)Ordered By: Julee Davies on 06-24-2021 Creatinine [Mass/Vol] 2.17 mg/dL 0.64-1.[address] [facility] Eosinophils Auto (Bld) [#/Vo l]Ordered By: Julee Davies on 06-24-2021 Eosinophils (Bld) [#/Vol] 0.3 10*3/uL 0.0-0.45 [facility] Eosinophils/100 WBC Auto (Bl d)Ordered By: Julee Davies on 06-24-2021 Eosinophils/100 WBC (Bld) 5.2 % [facility] Erythrocyte distribution wid th Auto (RBC) [Ratio]Ordered By: Julee Davies on 06-24-2021 Erythrocyte distribution width (RBC) [Ratio] 15.8 % 12.0-14.8 [facility] Estimated glomerular filtrat ion rate (GFR) non- AmericanOrdered By: Julee Davies on 06-24-2021 GFR/1.73 sq M.predicted among non-blacks MDRD (S/P/Bld) [Vol rate/Area] 30 mL/Min [facility] Globulin Calc (S) [Mass/Vol] Ordered By: Julee Davies on 06-24-2021 Globulin (S) [Mass/Vol] 2.4 g/dL [facility] Hematocrit Auto (Bld) [Volum e fraction]Ordered By: Julee Davies on 06-24-2021 Hematocrit (Bld) [Volume fraction] 33.0 % 38.8-50.0 [facility] Laboratory - Chemistry and C hemistry - challengeOrdered By: Julee Davies on 06-24-2021 Magnesium [Mass/Vol] 1.9 mg/dL 1.6-2.6 [facility] Natriuretic peptide B (Bld) [Mass/Vol] 224.0 pg/mL 5-100 [facility] Laboratory - Hematology and Cell countsOrdered By: Julee Davies on 06-24-2021 Nucleated RBC/100 WBC (Bld) [Ratio] 0.1 % 0-0.5 [facility] Lymphocytes Auto (Bld) [#/Vo l]Ordered By: Julee Davies on 06-24-2021 Lymphocytes (Bld) [#/Vol] 0.8 10*3/uL 1.00-4.8 [facility] Lymphocytes/100 WBC Auto (Bl d)Ordered By: Julee Davies on 06-24-2021 Lymphocytes/100 WBC (Bld) 11.4 % [facility] MCH Auto (RBC) [Entitic mass ]Ordered By: Julee Davies on 06-24-2021 MCH (RBC) [Entitic mass] 27.7 pg 27.5-35.2 [facility] MCHC Auto (RBC) [Mass/Vol]Or dered By: Julee Davies on 06-24-2021 MCHC (RBC) [Mass/Vol] 32.7 g/dL 32.5-35.[address] [facility] MCV Auto (RBC) [Entitic vol] Ordered By: Julee Davies on 06-24-2021 MCV (RBC) [Entitic vol] 84.6 fL 83.5-101 [facility] Monocytes Auto (Bld) [#/Vol] Ordered By: Julee Davies on 06-24-2021 Monocytes (Bld) [#/Vol] 0.5 10*3/uL 0.0-0.8 [facility] Monocytes/100 WBC Auto (Bld) Ordered By: Julee Davies on 06-24-2021 Monocytes/100 WBC (Bld) 7.4 % [facility] Neutrophils Auto (Bld) [#/Vo l]Ordered By: Julee Davies on 06-24-2021 Neutrophils (Bld) [#/Vol] 5.0 10*3/uL 1.8-7.7 [facility] Neutrophils/100 WBC Auto (Bl d)Ordered By: Julee Davies on 06-24-2021 Neutrophils/100 WBC (Bld) 75.4 % [facility] No Panel InformationOrdered By: Julee Davies on 06-24-2021 Estimated GFR () 36 mL/Min [facility] Comment on above: GFR estimated refere nce range: According to KDOQI guidelines, <60 ml/min/1.73m2 is sufficient to diagnose a patient with chronic kidney disease. Pharmacy Creatinine Clearance (Chem N/A [facility] Platelet mean volume Auto (B ld) [Entitic vol]Ordered By: Julee Davies on 06-24-2021 Platelet mean volume (Bld) [Entitic vol] 9.8 fL 6.6-10.1 [facility] Platelets Auto (Bld) [#/Vol] Ordered By: Julee Davies on 06-24-2021 Platelets (Bld) [#/Vol] 119 10*3/uL 150-450 [facility] Protein [Mass/volume] in Ser um or PlasmaOrdered By: Julee Davies on 06-24-2021 Protein [Mass/Vol] 5.3 g/dL 6.1-7.9 [facility] RBC Auto (Bld) [#/Vol]Ordere d By: Julee Davies on 06-24-2021 RBC (Bld) [#/Vol] 3.90 10*6/uL 3.90-5.60 [facility] Serum or plasma alanine lopez otransferase measurement without P-5'-P (enzymatic activiOrdered By: Julee Davies on 06-24-2021 ALT No additional P-5'-P [Catalytic activity/Vol] 7 U/L 10-60 [facility] Serum or plasma albumin/glob ulin mass ratioOrdered By: Julee Davies on 06-24-2021 Albumin/Globulin [Mass ratio] 1.2 {ratio} [facility] Serum or plasma alkaline cande sphatase measurement (enzymatic activity/volume)Ordered By: Julee Davies on 06-24-2021 ALP [Catalytic activity/Vol] 56 U/L 32-92 [facility] Serum or plasma aspartate am inotransferase measurement (enzymatic activity/volume)Ordered By: Julee Davies on 06-24-2021 AST [Catalytic activity/Vol] 13 U/L 10-42 [facility] Serum or plasma calcium abhijit urement (mass/volume)Ordered By: Julee Davies on 06-24-2021 Calcium [Mass/Vol] 8.9 mg/dL 8.2-10.2 [facility] Serum or plasma chloride marylin surement (moles/volume)Ordered By: Julee Davies on 06-24-2021 Chloride [Moles/Vol] 109 mmol/L 95-114 [facility] Serum or plasma glucose abhijit urement (mass/volume)Ordered By: Julee Davies on 06-24-2021 Glucose [Mass/Vol] 160 mg/dL 70-100 [facility] Comment on above: ADA recommended refe rence rangeRandom Glucose Reference Range is dependent on time and content of last meal. Glucose of more than 200 mg/dL in a nonstressed, ambulatory subject supports the diagnosis of Diabetes Mellitus. Serum or plasma potassium me asurement (moles/volume)Ordered By: Julee Davies on 06-24-2021 Potassium [Moles/Vol] 4.1 mmol/L 3.5-5.[address] [facility] Serum or plasma sodium measu rement (moles/volume)Ordered By: Julee Davies on 06-24-2021 Sodium [Moles/Vol] 144 mmol/L 136-146 [facility] Serum or plasma total biliru bin measurement (mass/volume)Ordered By: Julee Davies on 06-24-2021 Bilirubin [Mass/Vol] 0.5 mg/dL 0.3-1.2 [facility] Serum or plasma total carbon dioxide measurement (moles/volume)Ordered By: Julee Davies on 06-24-2021 CO2 [Moles/Vol] 25.7 mmol/L 22.0-30.0 [facility] Serum or plasma urea nitroge n measurement (mass/volume)Ordered By: Julee Davies on 06-24-2021 Urea nitrogen [Mass/Vol] 43 mg/dL 9-23 [facility] Tacrolimus [Mass/volume] in BloodOrdered By: Julee Davies on 06-24-2021 Tacrolimus (Bld) [Mass/Vol] 8.1 ng/mL [facility] Comment on above: This test was vane christine and its performance characteristicsdetermined by [employer]. It has not been cleared orapproved by the Food and Drug Administration. Trough (immediately following transplant) 15.0 Trough (steady state, 2 weeks or more after transplant): 3.0 - 8.0 Performed by LC-MS/MS technology.Performed at: [address] [id number] Director: Mynor Nixon MD, Phone: [phone] Albumin [Mass/volume] in Ser um or PlasmaOrdered By: Julee Davies on 05-27-2021 Albumin [Mass/Vol] 3.1 g/dL 3.2-5.5 [facility] Basophils Auto (Bld) [#/Vol] Ordered By: Julee Davies on 05-27-2021 Basophils (Bld) [#/Vol] 0.0 10*3/uL 0.0-0.2 [facility] Basophils/100 WBC Auto (Bld) Ordered By: Julee Davies on 05-27-2021 Basophils/100 WBC (Bld) 0.7 % [facility] Blood hemoglobin measurement (mass/volume)Ordered By: Julee Davies on 05-27-2021 Hemoglobin (Bld) [Mass/Vol] 11.4 g/dL 13.0-17.0 [facility] Blood leukocytes automated c ount (number/volume)Ordered By: Julee Davies on 05-27-2021 WBC (Bld) [#/Vol] 6.1 10*3/uL 4.5-11.0 [facility] Cholesterol [Mass/volume] in Serum or PlasmaOrdered By: Julee Davies on 05-27-2021 Cholesterol [Mass/Vol] 129 mg/dL 140-200 [facility] Comment on above: Chol less than 200 m g/dl low riskChol 201-239 mg/dl borderline riskChol 240 mg/dl and greater high risk Cholesterol in LDL Calc [Mas s/Vol]Ordered By: Julee Davies on 03-08-2022 Cholesterol in LDL [Mass/Vol] 67 mg/dL 0-100 [facility] Comment on above: LDL ATP III CLASSIFI CATIONLDL less than 100 mg/dL OptimalLDL 100-129 mg/dL Near or above optimalLDL 130-159 mg/dL Borderline highLDL 160-189 mg/dL HighLDL greater than 189 mg/dL Very high Cholesterol in VLDL Calc [Ma ss/Vol]Ordered By: Julee Davies on 05-27-2021 Cholesterol in VLDL [Mass/Vol] 27 mg/dL [facility] Creatinine and Glomerular fi ltration rate.predicted panel (S/P/Bld)Ordered By: Julee Davies on 05-27-2021 Creatinine [Mass/Vol] 1.86 mg/dL 0.64-1.[address] [facility] Eosinophils Auto (Bld) [#/Vo l]Ordered By: Julee Davies on 05-27-2021 Eosinophils (Bld) [#/Vol] 0.2 10*3/uL 0.0-0.45 [facility] Eosinophils/100 WBC Auto (Bl d)Ordered By: Julee Davies on 05-27-2021 Eosinophils/100 WBC (Bld) 3.7 % [facility] Erythrocyte distribution wid th Auto (RBC) [Ratio]Ordered By: Julee Davies on 05-27-2021 Erythrocyte distribution width (RBC) [Ratio] 14.9 % 12.0-14.8 [facility] Estimated glomerular filtrat ion rate (GFR) non- AmericanOrdered By: Julee Davies on 05-27-2021 GFR/1.73 sq M.predicted among non-blacks MDRD (S/P/Bld) [Vol rate/Area] 35 mL/Min [facility] Globulin Calc (S) [Mass/Vol] Ordered By: Julee Davies on 05-27-2021 Globulin (S) [Mass/Vol] 2.9 g/dL [facility] Glucose mean value [Mass/vol ume] in Blood Estimated from glycated hemoglobinOrdered By: Julee Davies on 05-27-2021 Average glucose Estimated from glycated hemoglobin (Bld) [Mass/Vol] 209 mg/dL [facility] Hematocrit Auto (Bld) [Volum e fraction]Ordered By: Julee Davies on 05-27-2021 Hematocrit (Bld) [Volume fraction] 34.1 % 38.8-50.0 [facility] Hemoglobin A1c percentageOrd ered By: Julee Davies on 05-27-2021 HbA1c (Bld) [Mass fraction] 8.9 % 4.3-5.6 [facility] Comment on above: Increased risk for d iabetes: 5.7 - 6.4diabetes: >6.4glycemic control for adults with diabetes: <7.0 Laboratory - Hematology and Cell countsOrdered By: Julee Davies on 05-27-2021 Nucleated RBC/100 WBC (Bld) [Ratio] 0.2 % 0-0.5 [facility] Lymphocytes Auto (Bld) [#/Vo l]Ordered By: Julee Davies on 05-27-2021 Lymphocytes (Bld) [#/Vol] 1.1 10*3/uL 1.00-4.8 [facility] Lymphocytes/100 WBC Auto (Bl d)Ordered By: Julee Davies on 05-27-2021 Lymphocytes/100 WBC (Bld) 17.9 % [facility] MCH Auto (RBC) [Entitic mass ]Ordered By: Julee Davies on 05-27-2021 MCH (RBC) [Entitic mass] 28.3 pg 27.5-35.2 [facility] MCHC Auto (RBC) [Mass/Vol]Or dered By: Julee Davies on 05-27-2021 MCHC (RBC) [Mass/Vol] 33.5 g/dL 32.5-35.[address] [facility] MCV Auto (RBC) [Entitic vol] Ordered By: Julee Davies on 05-27-2021 MCV (RBC) [Entitic vol] 84.5 fL 83.5-101 [facility] Monocytes Auto (Bld) [#/Vol] Ordered By: Julee Davies on 05-27-2021 Monocytes (Bld) [#/Vol] 0.5 10*3/uL 0.0-0.8 [facility] Monocytes/100 WBC Auto (Bld) Ordered By: Julee Davies on 05-27-2021 Monocytes/100 WBC (Bld) 7.9 % [facility] Neutrophils Auto (Bld) [#/Vo l]Ordered By: Julee Davies on 05-27-2021 Neutrophils (Bld) [#/Vol] 4.3 10*3/uL 1.8-7.7 [facility] Neutrophils/100 WBC Auto (Bl d)Ordered By: Julee Davies on 05-27-2021 Neutrophils/100 WBC (Bld) 69.8 % [facility] No Panel InformationOrdered By: Julee Davies on 05-27-2021 25-Hydroxy Vitamin D Total 23.8 ng/mL 30-100 [facility] Comment on above: VITAMIN D STATUS 25( [place])VITAMIN D RANGE (ng/mL) Deficient <20 Insufficient 20 to <30Sufficient 30 to 100Reference: Ely MF,Brad NC, Kristy ORTEGA, et al. Evaluation,treatment, and prevention of vitamin D deficiency; an Endocrine Society clinical practice guideline. JCEM. 2010; 96(7):1911-30. Estimated GFR () 43 mL/Min [facility] Comment on above: GFR estimated refere nce range: According to KDOQI guidelines, <60 ml/min/1.73m2 is sufficient to diagnose a patient with chronic kidney disease. Pharmacy Creatinine Clearance (Chem N/A [facility] Platelet Estimate Decreased Normal [facility] Platelet Morphology Comment Normal Normal [facility] Platelet mean volume Auto (B ld) [Entitic vol]Ordered By: Julee Davies on 05-27-2021 Platelet mean volume (Bld) [Entitic vol] 10.6 fL 6.6-10.1 [facility] Platelets Auto (Bld) [#/Vol] Ordered By: Julee Davies on 05-27-2021 Platelets (Bld) [#/Vol] 129 10*3/uL 150-450 [facility] Protein [Mass/volume] in Ser um or PlasmaOrdered By: Julee Davies on 05-27-2021 Protein [Mass/Vol] 6.0 g/dL 6.1-7.9 [facility] RBC Auto (Bld) [#/Vol]Ordere d By: Julee Davies on 05-27-2021 RBC (Bld) [#/Vol] 4.03 10*6/uL 3.90-5.60 [facility] RBC morphologyOrdered By: Maurice Davies on 05-27-2021 RBC morphology finding Nom (Bld) Normal [facility] Serum or plasma alanine lopez otransferase measurement without P-5'-P (enzymatic activiOrdered By: Julee Davies on 05-27-2021 ALT No additional P-5'-P [Catalytic activity/Vol] 7 U/L 10-60 [facility] Serum or plasma albumin/glob ulin mass ratioOrdered By: Julee Davies on 05-27-2021 Albumin/Globulin [Mass ratio] 1.1 {ratio} [facility] Serum or plasma alkaline cande sphatase measurement (enzymatic activity/volume)Ordered By: Julee Davies on 05-27-2021 ALP [Catalytic activity/Vol] 52 U/L 32-92 [facility] Serum or plasma aspartate am inotransferase measurement (enzymatic activity/volume)Ordered By: Julee Davies on 05-27-2021 AST [Catalytic activity/Vol] 11 U/L 10-42 [facility] Serum or plasma calcium abhijit urement (mass/volume)Ordered By: Julee Davies on 05-27-2021 Calcium [Mass/Vol] 9.0 mg/dL 8.2-10.2 [facility] Serum or plasma chloride marylin surement (moles/volume)Ordered By: Julee Davies on 05-27-2021 Chloride [Moles/Vol] 104 mmol/L 95-114 [facility] Serum or plasma glucose abhijit urement (mass/volume)Ordered By: Julee Davies on 05-27-2021 Glucose [Mass/Vol] 183 mg/dL 70-100 [facility] Comment on above: ADA recommended refe rence rangeRandom Glucose Reference Range is dependent on time and content of last meal. Glucose of more than 200 mg/dL in a nonstressed, ambulatory subject supports the diagnosis of Diabetes Mellitus. Serum or plasma high density lipoprotein (HDL) cholesterol measurementOrdered By: Julee Davies on 05-27-2021 Cholesterol in HDL [Mass/Vol] 35 mg/dL 29-71 [facility] Comment on above: HDL CHOL ATP-III CLA SSIFICATION Cardiovascular RiskHDL > or equal to 60 mg/dL LOWHDL < 40 mg/dL HIGH Serum or plasma potassium me asurement (moles/volume)Ordered By: Julee Davies on 05-27-2021 Potassium [Moles/Vol] 4.1 mmol/L 3.5-5.[address] [facility] Serum or plasma sodium measu rement (moles/volume)Ordered By: Julee Davies on 05-27-2021 Sodium [Moles/Vol] 140 mmol/L 136-146 [facility] Serum or plasma total biliru bin measurement (mass/volume)Ordered By: Julee Davies on 05-27-2021 Bilirubin [Mass/Vol] 0.4 mg/dL 0.3-1.2 [facility] Serum or plasma total carbon dioxide measurement (moles/volume)Ordered By: Julee Davies on 05-27-2021 CO2 [Moles/Vol] 26.1 mmol/L 22.0-30.0 [facility] Serum or plasma total choles terol/high density lipoprotein (HDL) cholesterol mass ratOrdered By: Julee Davies on 05-27-2021 Cholesterol.total/Denise sterol in HDL [Mass ratio] 3.7 {ratio} [facility] Serum or plasma urea nitroge n measurement (mass/volume)Ordered By: Julee Davies on 05-27-2021 Urea nitrogen [Mass/Vol] 38 mg/dL 9-23 [facility] TSH DL <= 0.005 mIU/L QnOrde red By: Julee Davies on 05-27-2021 TSH Qn 4.10 m[IU]/L 0.45-5.33 [facility] Triglyceride [Mass/volume] i n Serum or PlasmaOrdered By: Julee Davies on 05-27-2021 Triglyceride [Mass/Vol] 136 mg/dL 35-149 [facility] Comment on above: TRIG ATP III CLASSIF ICATIONTRIG less than 150 mg/dL NormalTRIG 150-199 mg/dL Borderline highTRIG 200-500 mg/dL High TRIG greater than 500 mg/dL Very highStandard traceable to the Center for Disease Conrtrol and Prevention (CDC) test method. Coronavirus 2019 RNA by PCR, Screening Asymptomticon 12-24-2020 Date and time of symptom onset Canceled [facility] [facility] [address] DO Work Phone: Coronavirus 2019 RNA by PCR, Screening Asymptomtic Not detected Normal See Below [facility]iol[facility]-[place] [facility] [address] DO Work Phone: Comment on above: SOURCE: Nasal, Nasop haryngealReference Range: Not Detected.This test has received FDA Emergency Use Authorization (EUA) and has been verified by Our [facility] ([facility]). This test is only authorized for the duration of time that circumstances exist to justify the authorization of the emergency use of in vitro diagnostic tests for the detection of SARS-CoV-2 virus and/or diagnosis of COVID-19 infection under section 564(b)(1) of the Act, 21 U.S.C. 360bbb-3(b)(1), unless the authorization is terminated or revoked sooner. [facility] is certified under CLIA-88 as qualified to perform high complexity testing. Testing is performed in the [facility] located at [address] [place] [address].SARS-CoV-2/Flu/RSV Multiplex Test: Fact sheet for providers: https://www.fda.gov/media/399714/downloadFact sheet for patients: https://www.fda.gov/media/567838/download Coronavirus 2019 RNA by PCR, Screening Asymptomtic Canceled [facility] 260 DO Work Phone: Comment on above: SOURCE: Nasal, Nasop haryngeal.This test has received FDA Emergency Use Authorization (EUA) and has been verified by [facility] ([facility]). This test is only authorized for the duration of time that circumstances exist to justify the authorization of the emergency use of in vitro diagnostic tests for the detection of SARS-CoV-2 virus and/or diagnosis of COVID-19 infection under section 564(b)(1) of the Act, 21 U.S.C. 360bbb-3(b)(1), unless the authorization is terminated or revoked sooner. [facility] is certified under CLIA-88 as qualified to perform high complexity testing. Testing is performed in the [facility] located at [address] [place] [address].SARS-CoV-2/Flu/RSV Multiplex Test: Fact sheet for providers: https://www.fda.gov/media/398419/downloadFact sheet for patients: https://www.fda.gov/media/526807/download Laboratory - Chemistry and C hemistry - [...] {x10E12/L} below low threshold See Below [facility] [facility] 260 DO Work Phone: Comment on above: Reference Range: 4.5 0 - 5.90 WBC (Bld) [#/Vol] 5.1 10*3/uL 4.4 - 11.3 MG-Car diolo gy-[facility] 260 DO Work Phone: No Panel Informationon 12-24 Please click on the link to view the study images Normal [facility] [facility] 260 DO Work Phone: 0.0 {/100_WBC} 0.0-0.0 [facility]-Cardiol o [facility] [facility] 260 DO Work Phone: Renal Function Panelon 12-24 Albumin BCP dye [Mass/Vol] 3.6 g/dL 3.4 - 5.0 [facility] [facility] 260 DO Work Phone: Anion gap [Moles/Vol] 15 mmol/L 10 - 20 MG- [facility] [facility] 260 DO Work Phone: Calcium [Mass/Vol] 9.0 mg/dL 8.6 - 10.6 [facility] 260 DO Work Phone: [phone] Chloride [Moles/Vol] 109 mmol/L above high threshold 98 - 107 [facility] [facility] 260 DO Work Phone: CO2 [Moles/Vol] 24 mmol/L 21 - 32 MG-Cardio lo [facility] [facility] 260 DO Work Phone: Creatinine [Mass/Vol] 1.77 mg/dL above high threshold See Below [facility] [facility] 260 DO Work Phone: Comment on above: Reference Range: 0.5 0 - 1.30 Glucose [Mass/Vol] 195 mg/dL above high threshold 74 - 99 [facility] [facility] 260 DO Work Phone: Phosphate [Mass/Vol] [...] 4.5 mmol/L 3.5 - 5.3 MG- [facility] [facility] 260 DO Work Phone: Sodium [Moles/Vol] 143 mmol/L 136 - 145 [facility] [facility] 260 DO Work Phone: Urea nitrogen [Mass/Vol] 49 mg/dL above high threshold 6 - 23 [facility] [facility] 260 DO Work Phone: Renal Function Panel 45 {mL/min/1.73m2} Abnormal >60 [facility] [facility] 260 DO Work Phone: Comment on above: CALCULATIONS OF ERNST MATED GFR ARE PERFORMED USING THE MDRD STUDY EQUATION FOR THE IDMS-TRACEABLE CREATININE METHODS. CLIN CHEM 2007;53:766-72 Renal Function Panel 37 {mL/min/1.73m2} Abnormal >60 [facility] 260 DO Work Phone: Tacrolimuson 12-24-2020 Tacrolimus (Bld) [Mass/Vol] 5.4 ng/mL 2.0 - 15.0 [facility] [facility] 260 DO Work Phone: Comment on above: NOTE: Result was obt ained using a chemiluminescent microparticle immunoassay (CMIA) on the [employer] i system.Optimal therapeutic ranges for immuno-suppressant drugs depend upon an individualpatient's current clinical state, type oforgan transplant, time post-transplant,co-administration of other immunosuppressants,and other clinical factors. The results ofthis test should be correlated with additionalclinical and laboratory data before changesin treatment regimens are made. CT Head without Contraston 1 CT Head limited WO contrast Normal [facility] 260 DO Work Phone: [phone] Laboratory - Chemistry and C hemistry - challengeon 12-23-2020 Glucose [Mass/Vol] 151 mg/dL above high threshold 74 - 99 [facility] [facility] 260 DO Work Phone: [phone] Glucose [Mass/Vol] 241 mg/dL above high threshold 74 - 99 [facility] [facility] 260 DO Work Phone: [phone] Glucose [Mass/Vol] 195 mg/dL above high threshold 74 - 99 [facility] [facility] 260 DO Work Phone: [phone] Glucose [Mass/Vol] 160 mg/dL above high threshold 74 - 99 [facility] [facility] 260 DO Work Phone: [phone] Laboratory - Hematology and Cell countson 12-23-2020 Erythrocyte distribution width (RBC) [Ratio] 12.5 % See Below [facility] [facility] 260 DO Work Phone: [phone] Comment on above: Reference Range: 11. 5 - 14.5 Hematocrit (Bld) [Volume fraction] 34.3 % below low threshold See Below [facility] [facility] 260 DO Work Phone: [phone] Comment on above: Reference Range: 41. 0 - 52.0 Hemoglobin (Bld) [Mass/Vol] 11.1 g/dL below low threshold See Below [facility] [facility] 260 DO Work Phone: [phone] Comment on above: Reference Range: 13. 5 - 17.5 MCHC (RBC) [Mass/Vol] 32.4 g/dL See Below MG- [facility] [facility] 260 DO Work Phone: [phone] Comment on above: Reference Range: 32. 0 - 36.0 MCV (RBC) [Entitic vol] 90 fL 80 - 100 M G-[facility]iol[facility] [facility] 260 DO Work Phone: [phone] Platelets (Bld) [#/Vol] 106 10*3/uL below lo w threshold 150 - 450 [facility] [facility] 260 DO Work Phone: [phone] RBC (Bld) [#/Vol] 3.83 {x10E12/L} below low threshold See Below [facility] [facility] 260 DO Work Phone: [phone] Comment on above: Reference Range: 4.5 0 - 5.90 WBC (Bld) [#/Vol] 5.2 10*3/uL 4.4 - 11.3 [facility] [facility] 260 DO Work Phone: [phone] No Panel Informationon 12-23 0.0 {/100_WBC} 0.0-0.0 [facility]iol [facility] [facility] 260 DO Work Phone: [phone] Renal Function Panelon 12-23 Albumin BCP dye [Mass/Vol] 3.6 g/dL 3.4 - 5.0 [facility] [facility] 260 DO Work Phone: [phone] Anion gap [Moles/Vol] 14 mmol/L 10 - 20 MG- [facility] [facility] 260 DO Work Phone: [phone] Calcium [Mass/Vol] 8.9 mg/dL 8.6 - 10.6 MG-Car diolo [facility] [facility] 260 DO Work Phone: [phone] Chloride [Moles/Vol] 109 mmol/L above high threshold 98 - 107 [facility] [facility] 260 DO Work Phone: [phone] CO2 [Moles/Vol] 23 mmol/L 21 - 32 MG-Cardio lo gy[facility] [facility] 260 DO Work Phone: [phone] Creatinine [Mass/Vol] 1.71 mg/dL above high threshold [...] 4.2 mmol/L 3.5 - 5.3 MG- [facility] [facility] 260 DO Work Phone: Sodium [Moles/Vol] 142 mmol/L 136 - 145 MG-Car [facility] [facility] 260 DO Work Phone: Urea nitrogen [Mass/Vol] 50 mg/dL above high threshold 6 - 23 [facility] [facility] 260 DO Work Phone: Renal Function Panel 47 {mL/min/1.73m2} Abnormal >60 [facility] [facility] 260 DO Work Phone: Comment on above: CALCULATIONS OF ERNST MATED GFR ARE PERFORMED USING THE MDRD STUDY EQUATION FOR THE IDMS-TRACEABLE CREATININE METHODS. CLIN CHEM 2007;53:766-72 Renal Function Panel 39 {mL/min/1.73m2} Abnormal >60 [facility] [facility] 260 DO Work Phone: Tacrolimuson 12-23-2020 Tacrolimus (Bld) [Mass/Vol] 5.9 ng/mL 2.0 - 15.0 [facility] [facility] 260 DO Work Phone: Comment on above: NOTE: Result was obt ained using a chemiluminescent microparticle immunoassay (CMIA) on the [employer] i system.Optimal therapeutic ranges for immuno-suppressant drugs depend upon an individualpatient's current clinical state, type oforgan transplant, time post-transplant,co-administration of other immunosuppressants,and other clinical factors. The results ofthis test should be correlated with additionalclinical and laboratory data before changesin treatment regimens are made. Laboratory - Chemistry and C hemistry - challengeon 12-22-2020 Glucose [Mass/Vol] 160 mg/dL above high threshold 74 - 99 [facility] [facility] 260 DO Work Phone: [phone] Glucose [Mass/Vol] 146 mg/dL above high threshold 74 - 99 [facility] [facility] 260 DO Work Phone: [phone] Glucose [Mass/Vol] 217 mg/dL above high threshold 74 - 99 [facility] [facility] 260 DO Work Phone: [phone] Glucose [Mass/Vol] 145 mg/dL above high threshold 74 - 99 [facility] [facility] 260 DO Work Phone: [phone] Glucose [Mass/Vol] 142 mg/dL above high threshold 74 - 99 [facility] [facility] 260 DO Work Phone: [phone] Laboratory - Hematology and Cell countson 12-22-2020 Erythrocyte distribution width (RBC) [Ratio] 12.6 % See Below [facility] [facility] 260 DO Work Phone: [phone] Comment on above: Reference Range: 11. 5 - 14.5 Hematocrit (Bld) [Volume fraction] 33.0 % below low threshold See Below [facility] [facility] 260 DO Work Phone: Comment on above: Reference Range: 41. 0 - 52.0 Hemoglobin (Bld) [Mass/Vol] 10.7 g/dL below low threshold See Below [facility] [facility] 260 DO Work Phone: Comment on above: Reference Range: 13. 5 - 17.5 MCHC (RBC) [Mass/Vol] 32.4 g/dL See Below MG- [facility] [facility] 260 DO Work Phone: [phone] Comment on above: Reference Range: 32. 0 - 36.0 MCV (RBC) [Entitic vol] 91 fL 80 - 100 M G-[facility] [facility] 260 DO Work Phone: [phone] Platelets (Bld) [#/Vol] 107 10*3/uL below lo w threshold 150 - 450 [facility] [facility] 260 DO Work Phone: [phone] RBC (Bld) [#/Vol] 3.62 {x10E12/L} below low threshold See Below [facility] [facility] 260 DO Work Phone: [phone] Comment on above: Reference Range: 4.5 0 - 5.90 WBC (Bld) [#/Vol] 5.0 10*3/uL 4.4 - 11.3 [facility] [facility] 260 DO Work Phone: [phone] No Panel Informationon 12-22 0.0 {/100_WBC} 0.0-0.0 [facility] [facility] 260 DO Work Phone: [phone] Renal Function Panelon 12-22 Albumin BCP dye [Mass/Vol] 3.5 g/dL 3.4 - 5.0 [facility] [facility] 260 DO Work Phone: [phone] Anion gap [Moles/Vol] 15 mmol/L 10 - 20 MG- [facility] [facility] 260 DO Work Phone: [phone] Calcium [Mass/Vol] 8.9 mg/dL 8.6 - 10.6 MG-[facility] [facility] 260 DO Work Phone: [phone] Chloride [Moles/Vol] 111 mmol/L above high threshold 98 - 107 [facility] [facility] 260 DO Work Phone: [phone] CO2 [Moles/Vol] 23 mmol/L 21 - 32 MG-Cardio lo [facility] [facility] 260 DO Work Phone: Creatinine [Mass/Vol] 2.04 mg/dL above high threshold See Below [facility] [facility] 260 DO Work Phone: Comment on above: Reference Range: 0.5 0 - 1.30 Glucose [Mass/Vol] 131 mg/dL above high threshold 74 - 99 [facility] [facility] 260 DO Work Phone: Phosphate [Mass/Vol] 3.3 mg/dL 2.5 - 4.9 MG-C ardiolo gy-[place] [...] above high threshold 6 - 23 [facility] [facility] 260 DO Work Phone: Renal Function Panel 39 {mL/min/1.73m2} Abnormal >60 [facility] [facility] 260 DO Work Phone: Comment on above: CALCULATIONS OF ERNST MATED GFR ARE PERFORMED USING THE MDRD STUDY EQUATION FOR THE IDMS-TRACEABLE CREATININE METHODS. CLIN CHEM 2007;53:766-72 Renal Function Panel 32 {mL/min/1.73m2} Abnormal >60 [facility] [facility] 260 DO Work Phone: Tacrolimuson 12-22-2020 Tacrolimus (Bld) [Mass/Vol] 5.5 ng/mL 2.0 - 15.0 [facility] [facility] 260 DO Work Phone: Comment on above: NOTE: Result was obt ained using a chemiluminescent microparticle immunoassay (CMIA) on the [employer] system.Optimal therapeutic ranges for immuno-suppressant drugs [...] 12-21-2020 Glucose [Mass/Vol] 148 mg/dL MG-[facility] [facility] 260 DO Work Phone: HbA1c (Bld) [Mass fraction] Canceled [facility] [facility] 260 DO Work Phone: Comment on above: Diagnosis of Diabete s-Adults Non-Diabetic: < or = 5.6% Increased risk for developing diabetes: 5.7-6.4% Diagnostic of diabetes: > or = 6.5%. Monitoring of Diabetes Age (y) Therapeutic Goal (%) Adults: >18 <7.0 Pediatrics: 13-18 <7.5 7-12 <8.0 0- 6 7.5-8.5 [place]. Diabetes Care 33(S1)Mar 2009. HbA1c [...] 13-18 <7.5 7-12 <8.0 0- 6 7.5-8.5 [place]. Diabetes Care 33(S1), Mar 2009. Hemoglobin A1C Canceled [facility] [facility] 260 DO Work Phone: Laboratory - Chemistry and C hemistry - challengeon 12-21-2020 Glucose [Mass/Vol] 191 mg/dL above high threshold 74 - 99 [facility] [facility] 260 DO Work Phone: Glucose [Mass/Vol] 203 mg/dL above high threshold 74 - 99 [facility] [facility] 260 DO Work Phone: [phone] Glucose [Mass/Vol] 229 mg/dL above high threshold 74 - 99 [facility] [facility] 260 DO Work Phone: [phone] Glucose [Mass/Vol] 136 mg/dL above high threshold 74 - 99 [facility] [facility] 260 DO Work Phone: [phone] Laboratory - Hematology and Cell countson 12-21-2020 Erythrocyte distribution width (RBC) [Ratio] 12.8 % See Below [facility] [facility] 260 DO Work Phone: [phone] Comment on above: Reference Range: 11. 5 - 14.5 Hematocrit (Bld) [Volume fraction] 35.6 % below low threshold See Below [facility] [facility] 260 DO Work Phone: [phone] Comment on above: Reference Range: 41. 0 - 52.0 Hemoglobin (Bld) [Mass/Vol] 12.0 g/dL below low threshold See Below [facility] [facility] 260 DO Work Phone: Comment on above: Reference Range: 13. 5 - 17.5 MCHC (RBC) [Mass/Vol] 33.7 g/dL See Below MG- [facility] [facility] 260 DO Work Phone: Comment on above: Reference Range: 32. 0 - 36.0 MCV (RBC) [Entitic vol] 89 fL 80 - 100 M G-[facility] [facility] 260 DO Work Phone: Platelets (Bld) [#/Vol] 124 10*3/uL below lo w threshold 150 - 450 [facility] [facility] 260 DO Work Phone: [phone] RBC (Bld) [#/Vol] 4.01 {x10E12/L} below low threshold See Below [facility] [facility] 260 DO Work Phone: [phone] Comment on above: Reference Range: 4.5 0 - 5.90 WBC (Bld) [#/Vol] 6.2 10*3/uL 4.4 - 11.3 MG-Car [facility] [facility] 260 DO Work Phone: No Panel Informationon 12-21 0.0 {/100_WBC} 0.0-0.0 MG-[facility]iol [facility] [facility] 260 DO Work Phone: [phone] Renal Function Panelon 12-21 Albumin BCP dye [Mass/Vol] 3.8 g/dL 3.4 - 5.0 [facility] [facility] 260 DO Work Phone: [phone] Anion gap [Moles/Vol] 15 mmol/L 10 - 20 MG- [facility] [facility] 260 DO Work Phone: [phone] Calcium [Mass/Vol] 8.8 mg/dL 8.6 - 10.6 MG-[facility] [facility] 260 DO Work Phone: [phone] Chloride [Moles/Vol] 110 mmol/L above high threshold 98 - 107 [facility] [facility] 260 DO Work Phone: [phone] CO2 [Moles/Vol] 23 mmol/L 21 - 32 MG-Cardio lo [facility] [facility] 260 DO Work Phone: [phone] Creatinine [Mass/Vol] 2.22 mg/dL above high threshold See Below [facility] [facility] 260 DO Work Phone: [phone] Comment on above: Reference Range: 0.5 0 - 1.30 Glucose [Mass/Vol] 114 mg/dL above high threshold 74 - 99 [facility] [facility] 260 DO Work Phone: Phosphate [Mass/Vol] 3.6 mg/dL 2.5 - 4.9 MG-C ardiolo gy-[place] [...] above high threshold 6 - 23 [facility] [facility] 260 DO Work Phone: Renal Function Panel 35 {mL/min/1.73m2} Abnormal >60 [facility] [facility] 260 DO Work Phone: Comment on above: CALCULATIONS OF ERNST MATED GFR ARE PERFORMED USING THE MDRD STUDY EQUATION FOR THE IDMS-TRACEABLE CREATININE METHODS. CLIN CHEM 2007;53:766-72 Renal Function Panel 29 {mL/min/1.73m2} Abnormal >60 [facility] [facility] 260 DO Work Phone: Tacrolimuson 12-21-2020 Tacrolimus (Bld) [Mass/Vol] 6.8 ng/mL 2.0 - 15.0 [facility] [facility] 260 DO Work Phone: Comment on above: NOTE: Result was obt ained using a chemiluminescent microparticle immunoassay (CMIA) on the [employer] system.Optimal therapeutic ranges for immuno-suppressant drugs depend upon an individualpatient's current clinical state, type oforgan transplant, time post-transplant,co-administration of other immunosuppressants,and other clinical factors. The results ofthis test should be correlated with additionalclinical and laboratory data before changesin treatment regimens are made. Coronavirus 2019 RNA by PCR, Symptomaticon 12-20-2020 Coronavirus 2019 RNA by PCR, Symptomatic Not detected Normal See Below [facility] [facility] 260 DO Work Phone: Comment on above: SOURCE: Nasal, Nasop haryngealReference Range: Not Detected.This test has received FDA Emergency Use Authorization (EUA) and has been verified by [facility] ([facility]). This test is only authorized for the duration of time that circumstances exist to justify the authorization of the emergency use of in vitro diagnostic tests for the detection of SARS-CoV-2 virus and/or diagnosis of COVID-19 infection under section 564(b)(1) of the Act, 21 U.S.C. 360bbb-3(b)(1), unless the authorization is terminated or revoked sooner. [facility] is certified under CLIA-88 as qualified to perform high complexity testing. Testing is performed in the [facility] located at [address] [place] [address].SARS-CoV-2/Flu/RSV Multiplex Test: Fact sheet for providers: https://www.fda.gov/media/009549/downloadFact sheet for patients: https://www.fda.gov/media/811177/download Date and time of symptom onset Canceled [facility] [facility] 260 DO Work Phone: Coronavirus 2019 RNA by PCR, Symptomatic Canceled [facility] [facility] 260 DO Work Phone: Comment on [...] this test method. Fact sheet for providers: www.fda.gov/media/539917/downloadFact sheet for patients: www.fda.gov/media/683645/downloadThis test has received FDA Emergency Use Authorization (EUA) and has been verified by [facility] ([facility]). This test is only authorized for the duration of time that circumstances exist to justify the authorization of the emergency use of in vitro diagnostic tests for the detection of SARS-CoV-2 virus and/or diagnosis of COVID-19 infection under section 564(b)(1) of the Act, 21 U.S.C. 360bbb-3(b)(1), unless the authorization is terminated or revoked sooner. [facility] is certified under CLIA-88 as qualified to perform high complexity testing. Testing is performed in the [facility] laboratories located at [address] [place] [address]. Folate, Serumon 12-20-2020 Folate [Mass/Vol] ng/mL >5.0 MG-Card iolo gy[facility] [facility] 260 DO Work Phone: Comment on [...] above high threshold 74 - 99 [facility] [facility] 260 DO Work Phone: TSH Qn 2.00 m[IU]/L See Below [facility] [facility] 260 DO Work Phone: Comment on above: Reference Range: 0.4 4 - 3.98 TSH testing is performed using different testing methodology at [facility] than at other [facility]. Direct result comparisons should only be made within the same method. Laboratory - Coagulationon 1 aPTT Coag (PPP) [Time] Canceled MG -[facility] [facility] 260 DO Work Phone: Comment on above: THE APTT IS NO LONGE R USED FOR MONITORING UNFRACTIONATED HEPARIN THERAPY. FOR MONITORING HEPARIN THERAPY, USE THE HEPARIN ASSAY. INR Coag (PPP) [Relative time] Canceled [facility] [facility] 260 DO Work Phone: [phone] PT Coag (PPP) [Time] Canceled MG-C niladiolo gy[facility] [facility] 260 DO Work Phone: [phone] Laboratory - Hematology and Cell countson 12-20-2020 Erythrocyte distribution width (RBC) [Ratio] 12.9 % See Below [facility] [facility] 260 DO Work Phone: [phone] Comment on above: Reference Range: 11. 5 - 14.5 Hematocrit (Bld) [Volume fraction] 35.8 % below low threshold See Below [facility] [facility] 260 DO Work Phone: [phone] Comment on above: Reference Range: 41. 0 - 52.0 Hemoglobin (Bld) [Mass/Vol] 11.7 g/dL below low threshold See Below [facility] [facility] 260 DO Work Phone: [phone] Comment on above: Reference Range: 13. 5 - 17.5 MCHC (RBC) [Mass/Vol] 32.7 g/dL See Below MG- [facility] [facility] 260 DO Work Phone: [phone] Comment on above: Reference Range: 32. 0 - 36.0 MCV (RBC) [Entitic vol] 90 fL 80 - 100 M G-[facility] [facility] 260 DO Work Phone: [phone] Platelets (Bld) [#/Vol] 131 10*3/uL below lo w threshold 150 - 450 MG-[facility]iol[facility] [facility] 260 DO Work Phone: [phone] RBC (Bld) [#/Vol] 3.97 {x10E12/L} below low threshold See Below [facility] [facility] 260 DO Work Phone: [phone] Comment on above: Reference Range: 4.5 0 - 5.90 WBC (Bld) [#/Vol] 7.3 10*3/uL 4.4 - 11.3 MG-[facility] [facility] 260 DO Work Phone: Lactate, Levelon [...] 12-20 82 pg/mL 0 - 99 [facility] [facility] 260 DO Work Phone: Comment on above: . <100 pg/mL - Heart failure [id number] pg/mL - Intermediate probability of acute heart. [...] further information. 0.0 {/100_WBC} 0.0-0.0 MG-Cardiol [facility] [facility] 260 DO Work Phone: Radiologyon 12-20-2020 XR Abdomen AP Normal MG-[facility] [facility] 260 DO Work Phone: XR Chest Single view Normal MG-C ardiolo gy-[place] [facility] 260 DO Work Phone: Renal Function Panelon 12-20 Albumin BCP dye [Mass/Vol] 3.9 g/dL 3.4 - 5.0 MG-[facility] [facility] 260 DO Work Phone: [phone] Anion gap [Moles/Vol] 17 mmol/L 10 - 20 MG- [facility] [facility] 260 DO Work Phone: [phone] Calcium [Mass/Vol] 9.2 mg/dL 8.6 - 10.6 MG-Car [facility]olo [facility] [facility] 260 DO Work Phone: [phone] Chloride [Moles/Vol] 112 mmol/L above high threshold 98 - 107 MG-[facility] [facility] 260 DO Work Phone: [phone] CO2 [Moles/Vol] 24 mmol/L 21 - 32 MG-Cardio lo [facility] [facility] 260 DO Work Phone: [phone] Creatinine [Mass/Vol] 2.40 mg/dL above high threshold See Below [facility] [facility] 260 DO Work Phone: [phone] Comment on above: Reference Range: 0.5 0 - 1.30 Glucose [Mass/Vol] 211 mg/dL above high threshold 74 - 99 MG-[facility] [facility] 260 DO Work Phone: [phone] Phosphate [Mass/Vol] 4.5 mg/dL 2.5 - 4.9 MG-C ardiolo gy[facility] [facility] 260 DO Work Phone: [phone] Comment on above: The performance waqar acteristics of phosphorus testing in heparinized plasma have been validated by the individual laboratory site where testing is performed. Testing on heparinized plasma is not approved by the FDA; however, such approval is not necessary. Potassium [Moles/Vol] 4.8 mmol/L 3.5 - 5.3 MG- Cardiolo gy-[place] [facility] 260 DO Work Phone: [phone] Sodium [Moles/Vol] 148 mmol/L above high threshold 136 - 145 MG-[facility] [facility] 260 DO Work Phone: [phone] Urea nitrogen [Mass/Vol] 74 mg/dL above high threshold 6 - 23 [facility] [facility] 260 DO Work Phone: Renal Function Panel 31 {mL/min/1.73m2} Abnormal >60 [facility] [facility] 260 DO Work Phone: Comment on above: CALCULATIONS OF ERNST MATED GFR ARE PERFORMED USING THE MDRD STUDY EQUATION FOR THE IDMS-TRACEABLE CREATININE METHODS. CLIN CHEM 2007;53:766-72 Renal Function Panel 26 {mL/min/1.73m2} Abnormal >60 MG-[facility] [facility] 260 DO Work Phone: Tacrolimuson 12-20-2020 Tacrolimus (Bld) [Mass/Vol] 5.6 ng/mL 2.0 - 15.0 [facility] [facility] 260 DO Work Phone: Comment on above: NOTE: Result was obt ained using a chemiluminescent microparticle immunoassay (CMIA) on the [employer] i system.Optimal therapeutic ranges for immuno-suppressant drugs depend upon an individualpatient's current clinical state, type oforgan transplant, time post-transplant,co-administration of other immunosuppressants,and other clinical factors. The results ofthis test should be correlated with additionalclinical and laboratory data before changesin treatment regimens are made. Troponin I, Serumon 12-21-19 Troponin I.cardiac [Mass/Vol] 0.02 ng/mL See Below MG-Cardiolo gy-[facility] 260 DO [...] is performed using different testing methodology at [facility] than at other [facility]. Direct result comparisons should only be [...] above high threshold 211 - 911 [facility] woo-Ellyn SJW 260 DO Work Phone: Basic Metabolic PanelOrdered By: Manuel Conner on 12-19-2020 Anion gap [Moles/Vol] 11 mmol/L 9 - 17 mmol/L [facility] Phone: Calcium [Mass/Vol] 9.3 mg/dL 8.6 - 10. 4 mg/dL [facility] Phone: Chloride [Moles/Vol] 107 mmol/L 98 - 10 7 mmol/L [employer] Phone: CO2 [Moles/Vol] 23 mmol/L 20 - 31 mmol/L [employer] Phone: Creatinine [Mass/Vol] 2.53 mg/dL High 0.70 - 1.20 mg/dL [facility] Phone: GFR 30 mL/min Low >60 [employer] Phone: GFR Non- 25 mL/min Low >60 [facility] Phone: Glucose [Mass/Vol] 160 mg/dL High 70 - 99 mg/dL [facility] Phone: Interpretation and review of laboratory results Abnormal [facility] Phone: Potassium [Moles/Vol] 4.5 mmol/L 3.7 - 5.3 mmol/L [employer] Phone: Sodium [Moles/Vol] 141 mmol/L 135 - 144 mmol/L [facility] Phone: Urea nitrogen (BldV) [Mass/Vol] 76 mg/dL High 8 - 23 mg/dL [facility] Phone: Urea nitrogen/Creatinine (Bld) [Mass ratio] 30 High [facility] Phone: [facility] Phone: Laboratory - Chemistry and C hemistry - challengeOrdered By: Manuel Conner on 12-19-2020 GFR/1.73 sq M.predicted MDRD (S/P/Bld) [Vol rate/Area] [facility] Phone: Comment on above: Average GFR for 70 o r more years old: 75 mL/min/1.73sq m Chronic Kidney Disease: <60 mL/min/1.73sq m Kidney failure: <15 mL/min/1.73sq m eGFR calculated using average adult body mass. Additional eGFR calculator available at: http://www.[employer] [facility]/Hobobe_crcl_2012.htm Stage 1: Some kidney damage normal GFR Stage 2: Mild kidney damage GFR 60-89 Stage 3: Moderate kidney damage GFR 30-59 Stage 4: Severe kidney damage GFR 15-29 Stage 5: Severe kidney damage GFR <15 ESRD - chronic treatment by dialysis or transplant TroponinOrdered By: Manuel Conner on 12-19-2020 Interpretation and review of laboratory results Abnormal [facility] Phone: Troponin Interp NOT REPORTED [facility] Phone: Troponin T NOT REPORTED <0.03 ng/mL [facility] Phone: Troponin, High Sensitivity 57 ng/L Critically high 0 - 22 ng/L [facility] Phone: Comment on above: High Sensitivity Troponin values cannot be compared with other Troponin methodologies. Patients with high levels of Biotin oral intake (i.e >5mg/day) may have falsely decreased Troponin levels. Samples collected within 8 hours of biotin intake may require additional information for diagnosis. [facility] Phone: Basic Metabolic PanelOrdered By: Manuel Conner on 12-18-2020 Anion gap [Moles/Vol] 14 mmol/L 9 - 17 mmol/L [facility] Phone: Calcium [Mass/Vol] 9.3 mg/dL 8.6 - 10. 4 mg/dL [facility] Phone: Chloride [Moles/Vol] 104 mmol/L 98 - 10 7 mmol/L [facility] Phone: CO2 [Moles/Vol] 22 mmol/L 20 - 31 mmol/L [facility] Phone: Creatinine [Mass/Vol] 4.1 mg/dL High 0.70 - 1.20 mg/dL [facility] Phone: GFR 17 mL/min Low >60 [facility] Phone: GFR Non- 14 mL/min Low >60 [facility] Phone: Glucose [Mass/Vol] 148 mg/dL High 70 - 99 mg/dL [facility] Phone: Potassium [Moles/Vol] 5.2 mmol/L 3.7 - 5.3 mmol/L [facility] Phone: Sodium [Moles/Vol] 140 mmol/L 135 - 144 mmol/L [facility] Phone: Urea nitrogen (BldV) [Mass/Vol] 87 mg/dL High 8 - 23 mg/dL [facility] Phone: Urea nitrogen/Creatinine (Bld) [Mass ratio] 21 High [facility] Phone: Brain Natriuretic PeptideOrd ered By: Manuel Conner on 12-18-2020 BNP Interpretation Pro-BNP Reference Range: [facility] Phone: Comment on above: Rule Out: <300 Pagan Zone: Age <50 300-450 Age 50-75 300-900 Age >75 300-1800 Usually represents mild to moderate HF but other cardiopulmonary causes cannot be ruled out. Rule In: Age <50 >450 Age 50-75 >900 Age >75 >1800 Interpretation and review of laboratory results Abnormal [facility] Phone: Natriuretic peptide B (Bld) [Mass/Vol] 846 pg/mL High <300 [facility] Phone: Comment on above: Pro-BNP results halie ot be compared to BNP results. [facility] Phone: EKG Rhythm StripOrdered By: Unknown Result on 12-18-2020 [facility] Phone: [facility] Phone: Glucose, Whole BloodOrdered By: Manuel Conner on 12-18-2020 Glucose [Mass/Vol] 152 mg/dL High 74 - 100 mg/dL [facility] Phone: Interpretation and review of laboratory results Abnormal [facility] Phone: [facility] Phone: Laboratory - Chemistry and C hemistry - challengeOrdered By: Manuel Conner on 12-18-2020 GFR/1.73 sq M.predicted MDRD (S/P/Bld) [Vol rate/Area] [facility] Phone: Comment on above: Average GFR for 70 o r more years old: 75 mL/min/1.73sq m Chronic Kidney Disease: <60 mL/min/1.73sq m Kidney failure: <15 mL/min/1.73sq m eGFR calculated using average adult body mass. Additional eGFR calculator available at: http://www.Experiment.com/multiple_crcl_2012.htm Stage 1: Some kidney damage normal GFR Stage 2: Mild kidney damage GFR 60-89 Stage 3: Moderate kidney damage GFR 30-59 Stage 4: Severe kidney damage GFR 15-29 Stage 5: Severe kidney damage GFR <15 ESRD - chronic treatment by dialysis or transplant No Panel InformationOrdered By: Manuel Conner on 12-18-2020 Interpretation and review of laboratory results Abnormal [facility] Phone: [facility] Phone: TroponinOrdered By: Manuel Conner on 12-18-2020 Troponin Interp NOT REPORTED [facility] Phone: Troponin T NOT REPORTED <0.03 ng/mL [facility] Phone: Troponin, High Sensitivity 71 ng/L Critically high 0 - 22 ng/L [facility] Phone: Comment on above: High Sensitivity Troponin [...] Consider advancement by 5-7 cm, if able. [facility] Phone: EXAMINATION: ONE XRA Y VIEW OF [...] cardiomegaly. Bony thorax is without acute abnormality. [facility] Phone: Roger, Mhpn Incoming R adiant Results From [employer] - 12/18/2020 1:31 PM EDT EXAMINATION: ONE [...] Consider advancement by 5-7 cm, if able. [facility] Phone: [facility] Phone: XR CHEST PORTABLEOrdered By: Manuel Conner on 12-18-2020 Mild prominence of interstitial markings suggests mild vascular congestion with mild streaky bibasilar atelectasis [facility] Phone: EXAMINATION: ONE XRA Y VIEW OF THE CHEST 12/18/2020 11:18 am COMPARISON: December 17, 2020, chest examination HISTORY: ORDERING SYSTEM PROVIDED HISTORY: Congestion TECHNOLOGIST PROVIDED HISTORY: Congestion FINDINGS: Median sternotomy. Stable cardiomegaly/mild tortuosity of the thoracic aorta Mild streaky bibasilar density. Mild prominence of interstitial markings Possible small right pleural effusion Degenerative changes of the thoracic spine/shoulders [facility] Phone: Roger, Mhpn Incoming R adiant Results From [employer] - 12/18/2020 11:26 AM EDT EXAMINATION: ONE [...] vascular congestion with mild streaky bibasilar atelectasis [facility] Phone: [facility] Phone: APTTOrdered By: Manuel lew on 12-17-2020 aPTT Coag (Bld) [Time] 22.8 s Low Me [employer] Phone: Comment on above: IV Heparin Therapy Range: 62.0-94.0 Interpretation and review of laboratory results Abnormal [facility] Phone: [facility] Phone: Blood Gas, VenousOrdered By: Manuel Conner on 12-17-2020 Shilo Test NOT REPORTED [facility] Phone: Carboxyhemoglobin NOT REPORTED 0.0 - 5.0 % [facility] Phone: Comment on above: FIO2 NOT REPORTED [facility] Phone: HCO3 (Bld) [Moles/Vol] 21.9 mmol/L Low 24.0 - 30.0 mmol/L [facility] Phone: Interpretation and review of laboratory results Abnormal [facility] Phone: Methemoglobin NOT REPORTED 0.0 - 1.9 % [facility] Phone: Mode NOT REPORTED [facility] Phone: Negative Base Excess, Angelo 5.7 mmol/L High 0.0 - 2.0 mmol/L [facility] Phone: NOTIFICATION NOT REPORTED [facility] Phone: NOTIFICATION TIME NOT REPORTED [facility] Phone: O2 Device/Flow/% NOT REPORTED [facility] Phone: Oxygen saturation in Blood 31.2 % Low 60.0 - 85.0 % [facility] Phone: Oxyhemoglobin NOT REPORTED 95.0 - 98.0 [...] Work Phone: Text for Respiratory NOT REPORTED [facility] Work Phone: Total Hb NOT REPORTED 12.0 - 16.0 g/dl [facility] Work Phone: Total Rate NOT REPORTED [facility] Work Phone: VT NOT REPORTED [facility] Work Phone: [facility] Work Phone: Brain Natriuretic PeptideOrd ered By: Manuel Conner on 12-17-2020 BNP Interpretation Pro-BNP Reference Range: [facility] Work Phone: Comment on above: Rule Out: <300 Pagan Zone: Age <50 300-450 Age 50-75 300-900 Age >75 300-1800 Usually represents mild to moderate HF but other cardiopulmonary causes cannot be ruled out. Rule In: Age <50 >450 Age 50-75 >900 Age >75 >1800 Natriuretic peptide B (Bld) [Mass/Vol] 1428 pg/mL High <300 [facility] Phone: Comment on above: Pro-BNP results halie ot be compared to BNP results. CBC Auto DifferentialOrdered By: Manuel Conner on 12-17-2020 Absolute Eos # 0.03 [facility] Phone: Absolute Immature Granulocyte 0.03 [facility] Phone: Absolute Lymph # 0.96 Low [facility] Phone: Absolute Archer # 0.52 [facility] Phone: Basophils (Bld) [#/Vol] 10*3/uL M [employer] Phone: Basophils/100 WBC (Bld) 0 % 0 - 2 % [facility] [employer] Phone: Differential Type NOT REPORTED [facility] Phone: Eosinophils/100 WBC (Bld) 0 % Low 1 - 4 % [facility] Phone: Hematocrit (Bld) [Volume fraction] 37.2 % Low 40.7 - 50.3 % [facility] Phone: Hemoglobin.gastrointest inal spec 1 Ql (Stl) 11.5 g/dL Low 13.0 - 17.0 g/dL [facility] Phone: Immature granulocytes/100 WBC (Bld) 0 % 0 [facility] Phone: Interpretation and review of laboratory results Abnormal [facility] Phone: [phone] Lymphocytes/100 WBC (Bld) 11 % Low 24 - 43 % [facility] Phone: MCH (RBC) [Entitic mass] 28.5 pg 25.2 - 33.5 pg [facility] Phone: MCHC (RBC) [Mass/Vol] 30.9 g/dL 28.4 - 34.8 g/dL [employer] Phone: MCV (RBC) [Entitic vol] 92.3 fL 82.6 - 102.9 fL [employer] Phone: Monocytes/100 WBC (Bld) 6 % 3 - 12 % [facility] [employer] Phone: NRBC Automated 0.0 0.0 per 100 WBC [employer] Phone: Platelet distribution width (Bld) [Ratio] 13.0 % 11.8 - 14.4 % [facility] Phone: Platelet Estimate NOT REPORTED [facility] Phone: Platelet mean volume (Bld) [Entitic vol] NOT REPORTED 8.1 - 13.5 fL [facility] Phone: Platelets (Bld) [#/Vol] See Reflexed IPF Result [facility] Phone: RBC (Bld) [#/Vol] 4.03 10*6/uL Low 4.21 - 5.77 m/uL [employer] Phone: RBC (Bld) [#/Vol] NOT REPORTED [facility] Phone: Segmented neutrophils/100 WBC (Bld) 82 % High 36 - 65 % [facility] Phone: Segs Absolute 6.94 [facility] Phone: WBC (Bld) [#/Vol] 8.5 10*3/uL [facility] Phone: WBC (Bld) [#/Vol] NOT REPORTED [facility] Phone: [facility] Phone: COVID-19, RapidOrdered By: Agnieszka munozsloan Finneyjodie on 12-17-2020 SARS-CoV-2 (COVID-19) RNA JOYCE+probe Ql (Unsp spec) Not detected Not Detected [facility] Phone: Comment on above: Rapid NAAT: The [...] management decisions. Fact sheet for Healthcare Providers: https://www.fda.gov/media/487885/download Fact sheet for Patients: https://www.fda.gov/media/818564/download Methodology: Isothermal Nucleic Acid Amplification Specimen Description .NASOPHARYNGEAL SWAB [facility] Phone: [facility] Phone: CT HEAD WO CONTRASTOrdered B y: Manuel Conner on 12-17-2020 No acute intracrania l abnormality. 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 Minimal parenchymal volume loss. Minimal chronic microvascular disease. [facility] Phone: EXAMINATION: CT OF T HE HEAD [...] of the visualized skull or soft tissues. [employer] Work Phone: Roger, Mhpn Incoming R adiant Results From [employer] - 12/17/2020 9:36 AM EDT EXAMINATION: CT OF THE HEAD WITHOUT CONTRAST 12/17/2020 9:21 am TECHNIQUE: CT of the head was performed without the administration of intravenous contrast. Dose modulation, iterative reconstruction, and/or weight based adjustment of the mA/kV was utilized to reduce the radiation dose to as low as reasonably achievable. COMPARISON: None. HISTORY: ORDERING SYSTEM PROVIDED HISTORY: ams TECHNOLOGIST PROVIDED HISTORY: [facility] Decision Support Exception - unselect if [...] parenchymal volume loss. Minimal chronic microvascular disease. [facility] Phone: [facility] Phone: Comprehensive Metabolic Pane l w/ Reflex to MGOrdered By: Manuel Conner on 12-17-2020 Albumin [Mass/Vol] 4 g/dL 3.5 - 5.2 g/dL [facility] Phone: Albumin/Globulin [Mass ratio] 1.3 {ratio} [facility] Phone: ALP (Bld) [Catalytic activity/Vol] 66 U/L 40 - 129 U/L [facility] Phone: ALT [Catalytic activity/Vol] 12 U/L 5 - 41 U/L [employer] Phone: Anion gap [Moles/Vol] 19 mmol/L High 9 - 17 mmol/L [employer] Phone: AST [Catalytic activity/Vol] 18 U/L <40 [facility] Phone: Bilirubin [Mass/Vol] 0.16 mg/dL Low 0.3 - 1 .2 mg/dL [employer] Phone: Calcium [Mass/Vol] 8.8 mg/dL 8.6 - 10. 4 mg/dL [facility] Phone: Chloride [Moles/Vol] 102 mmol/L 98 - 10 7 mmol/L [employer] Phone: CO2 [Moles/Vol] 19 mmol/L Low 20 - 31 mmol/L [facility] Phone: Creatinine [Mass/Vol] 6.59 mg/dL Critically high 0.7 0 - 1.20 mg/dL [facility] Phone: Free PSA/Total PSA [Mass fraction] 7.0 g/dL 6.4 - 8.3 g/dL [facility] Phone: GFR 10 mL/min Low >60 [employer] Work Phone: GFR Non- 8 mL/min Low >60 [employer] Work Phone: Glucose [Mass/Vol] 197 mg/dL High 70 - 99 mg/dL [facility] Phone: Potassium [Moles/Vol] 4.6 mmol/L 3.7 - 5.3 mmol/L [facility] Phone: [phone] Sodium [Moles/Vol] 140 mmol/L 135 - 144 mmol/L [employer] Phone: Urea nitrogen (BldV) [Mass/Vol] 96 mg/dL Critically high 8 - 23 mg/dL [facility] Phone: Urea nitrogen/Creatinine (Bld) [Mass ratio] 15 [employer] Work Phone: EKG 12 LeadOrdered By: aKthy Conner on 12-17-2020 Atrial Rate 85 BPM [employer] Phone: P [employer] -15 degrees [employer] Phone: P-R Interval 224 ms [facility] Phone: Q-T Interval 414 ms [facility] Phone: QRS Duration 120 ms [facility] Phone: QTc Calculation (Bazett) 492 ms [employer] Phone: R [employer] 99 degrees [employer] Phone: T [employer] 44 degrees [employer] Phone: Ventricular Rate 85 BPM [facility] Phone: Sinus rhythm with 1s t degree A-V block Rightward axis Septal infarct , age undetermined Abnormal ECG No previous ECGs available Confirmed by JARNO BERNARD ([id number]) on 12/17/2020 11:51:30 PM [facility] Phone: Roger, Mhpn Incoming E kg Results From [employer] - 12/17/2020 11:51 PM EDT Sinus rhythm with 1st degree A-V block Rightward axis Septal infarct , age undetermined Abnormal ECG No previous ECGs available Confirmed by JARON BERNARD ([id number]) on 12/17/2020 11:51:30 PM [facility] Phone: [facility] Phone: Immature Platelet FractionOr dered By: Manuel Conner on 12-17-2020 Interpretation and review of laboratory results Abnormal [facility] Phone: Platelet, Fluorescence 110 Low [employer] Phone: Platelet, Immature Fraction 4.6 % 1.1 - 10.3 % [facility] Phone: [facility] Phone: Laboratory - Chemistry and C hemistry - challengeOrdered By: Manuel Conner on 12-17-2020 GFR/1.73 sq M.predicted MDRD (S/P/Bld) [Vol rate/Area] [facility] Phone: Comment on above: Average GFR for 70 o r more years old: 75 mL/min/1.73sq m Chronic Kidney Disease: <60 mL/min/1.73sq m Kidney failure: <15 mL/min/1.73sq m eGFR calculated using average adult body mass. Additional eGFR calculator available at: http://www.Experiment.[employer]/multiple_crcl_2012.htm Stage 1: Some kidney damage normal GFR Stage 2: Mild kidney damage GFR 60-89 Stage 3: Moderate kidney damage GFR 30-59 Stage 4: Severe kidney damage GFR 15-29 Stage 5: Severe kidney damage GFR <15 ESRD - chronic treatment by dialysis or transplant Lactic AcidOrdered By: Kathy Conner on 12-17-2020 Lactate [Moles/Vol] 1.3 mmol/L 0.5 - 2. 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 Flow artifact in the proximal M1 segments of the bilateral MCAs and intracranial right ICA. The bilateral intracranial vertebral arteries are not imaged. [employer] Phone: EXAMINATION: MRA OF THE HEAD WITHOUT CONTRAST 12/17/2020 1:32 pm TECHNIQUE: MRA of the head was performed utilizing [id number] imaging with MIP images. No intravenous contrast [...] cerebral arteries. No evidence of intracranial aneurysm. [facility] Phone: Roger, Mhpn Incoming R adiant Results From [employer] - 12/17/2020 2:02 PM EDT EXAMINATION: MRA OF THE HEAD WITHOUT CONTRAST 12/17/2020 1:32 pm TECHNIQUE: MRA of the head was performed utilizing [id number] imaging with MIP images. No intravenous contrast [...] bilateral intracranial vertebral arteries are not imaged. 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 [facility] Phone: No acute intracrania l abnormality. 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 Mild parenchymal volume loss. Mild chronic microvascular disease. 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 [employer] Phone: EXAMINATION: MRI OF THE BRAIN WITHOUT [...] The soft tissues demonstrate no acute abnormality. 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 [employer] Work Phone: [employer] Work Phone: Microscopic UrinalysisOrdere d By: Manuel Conner on 12-17-2020 - [employer] Work Phone: Amorphous, UA NOT REPORTED None [employer] Work Phone: Bacteria, UA NOT REPORTED None [employer] Work Phone: Casts UA NOT REPORTED /LPF [employer] Work Phone: Crystals, UA NOT REPORTED None /HPF [employer] Work Phone: Epithelial Cells UA 0 TO 2 [facility] Phone: Mucus, UA NOT REPORTED None [facility] Phone: Other Observations UA NOT REPORTED NOT REQ. [facility] Work Phone: RBC, UA 2 TO 5 [employer] Work Phone: Renal Epithelial, UA NOT REPORTED 0 /HPF [employer] Work Phone: Trichomonas, UA NOT REPORTED None [facility] Phone: WBC, UA 0 TO 2 [facility] Phone: Yeast, UA NOT REPORTED None [facility] Phone: [employer] Work Phone: No Panel InformationOrdered By: Manuel Conner on 12-17-2020 Interpretation and review of laboratory results Abnormal [facility] Phone: [employer] Phone: Interpretation and review of laboratory results Abnormal [facility] Phone: [facility] Phone: Protime-INROrdered By: Kathy Conner on 12-17-2020 INR Coag (Bld) [Relative time] 1.1 {INR} [facility] Phone: Comment on above: Non-therapeutic Range: INR = 0.9-1.2 Therapeutic Range: Moderate Anticoagulant Intensity: INR = 2.0-3.0 High Anticoagulant Intensity: INR = 2.5-3.5 PT Coag (PPP) [Time] 13.7 s [employer] Phone: [facility] Phone: TroponinOrdered By: Manuel Conner on 12-17-2020 Interpretation and review of laboratory results Abnormal [facility] Phone: Troponin Interp NOT REPORTED [facility] Phone: Troponin T NOT REPORTED <0.03 ng/mL [employer] Phone: Troponin, High Sensitivity 79 ng/L Critically high 0 - 22 ng/L [employer] Phone: Comment on above: High Sensitivity Troponin values cannot be compared with other Troponin methodologies. Patients with high levels of Biotin oral intake (i.e >5mg/day) may have falsely decreased Troponin levels. Samples collected within 8 hours of biotin intake may require additional information for diagnosis. [facility] Phone: Troponin Interp NOT REPORTED [facility] Phone: Troponin T NOT REPORTED <0.03 ng/mL [employer] Phone: Troponin, High Sensitivity 85 ng/L Critically high 0 - 22 ng/L [employer] Phone: Comment on above: High Sensitivity Troponin values cannot be compared with other Troponin methodologies. Patients with high levels of Biotin oral intake (i.e >5mg/day) may have falsely decreased Troponin levels. Samples collected within 8 hours of biotin intake may require additional information for diagnosis. Urinalysis, reflex to micros copicOrdered By: Manuel Conner on 12-17-2020 Bilirubin Urine Negative NEGATIVE [employer] Phone: Color, UA Yellow Yellow [employer] Work Phone: Glucose, Ur Negative NEGATIVE [employer] Work Phone: Interpretation and review of laboratory results Abnormal [employer] Phone: Ketones Ql (U) Negative NEGATIVE [employer] Work Phone: Leukocyte esterase Test strip Ql (U) Negative NEGATIVE [employer] Work Phone: Nitrite, Urine Negative NEGATIVE [employer] Work Phone: pH, UA 5.5 [employer] Work Phone: Protein, UA TRACE Abnormal NEGATIVE [employer] Phone: Specific [place], UA 1.025 High [employer] Work Phone: Turbidity UA Clear Clear [employer] Work Phone: Urinalysis Comments NOT REPORTED [facility] [employer] Work Phone: Urine Hgb TRACE Abnormal NEGATIVE [employer] Phone: Urobilinogen, Urine Normal Normal [facility] Phone: [employer] Phone: XR CHEST PORTABLEOrdered By: Manuel Conner on 12-17-2020 Mild streaky bibasil ar atelectasis with possible small bilateral pleural effusions [employer] Phone: EXAMINATION: ONE XRA Y VIEW OF THE CHEST 12/17/2020 9:30 am COMPARISON: None. HISTORY: ORDERING SYSTEM PROVIDED HISTORY: Congestion TECHNOLOGIST PROVIDED HISTORY: Congestion FINDINGS: Median sternotomy. Normal cardiopericardial silhouette Low volume lungs. Mild streaky bibasilar densities, possible possible small bilateral pleural effusions. Clear upper lungs Degenerative changes of the thoracic spine/shoulders [employer] Work Phone: Roger, Mhpn Incoming R adiant Results From [employer] - 12/17/2020 9:46 AM EDT EXAMINATION: ONE [...] atelectasis with possible small bilateral pleural effusions [employer] Work Phone: [employer] Phone: Vital Signs Date Time Vital Sign Value Performing Clinician Facility 07-03-2021 15:01-0400 Body temperature 99.32 [degF] Michael Carballo Other Phone: [facility] 07-03-2021 15:01-0400 Diastolic blood pressure 66 mm[Hg] Michael Carballo Other Phone: [facility] 07-03-2021 15:01-0400 Heart rate 80 /min Michael Carballo Other Phone: [facility] 07-03-2021 15:01-0400 Respiratory rate 22 /min Michael Carballo Other Phone: [facility] 07-03-2021 15:01-0400 SaO2% (BldA) [Mass fraction] 97 % Michael Carballo Other Phone: [facility] 07-03-2021 15:01-0400 Systolic blood pressure 127 mm[Hg] Michael Carballo Other Phone: [facility] 07-03-2021 06:30-0400 Body weight 100.5 kg Michael Carballo Other Phone: [facility] 06-27-2021 13:00-0400 Diastolic blood pressure 69 mm[Hg] MD Michael Carballo Work Phone: [facility] 06-27-2021 13:00-0400 Heart rate 87 /min MD Michael Carballo Work Phone: [facility] 06-27-2021 13:00-0400 Respiratory rate 17 /min MD Michael Carballo Work Phone: [facility] 06-27-2021 13:00-0400 SaO2% (BldA) [Mass fraction] 94 % MD Michael Carballo Work Phone: [facility] 06-27-2021 13:00-0400 Systolic blood pressure 153 mm[Hg] MD Michael Carballo Work Phone: [facility] 06-27-2021 08:00-0400 Body temperature 97.9 [degF] MD Michael Carballo Work Phone: [facility] 06-27-2021 05:44-0400 Body weight 106.5 kg MD Michael Carballo Work Phone: [facility] 06-26-2021 14:12-0400 Body height 182.88 cm MD Michael Carballo Work Phone: [facility] 06-26-2021 00:24-0400 Body height 182.88 cm MD Michael Carballo Work Phone: [facility] 06-26-2021 00:24-0400 Body mass index (BMI) [Ratio] 32.8 kg/m2 MD Michael Carballo Work Phone: [facility] 06-26-2021 00:24-0400 Body temperature 97.7 [degF] MD Michael Carballo Work Phone: [facility] 06-26-2021 00:24-0400 Body weight 109.9 kg MD Michael Carballo Work Phone: [facility] 06-26-2021 00:24-0400 Diastolic blood pressure 100 mm[Hg] MD Michael Carballo Work Phone: [facility] 06-26-2021 00:24-0400 Heart rate 88 /min MD Michael Carballo Work Phone: [facility] 06-26-2021 00:24-0400 Respiratory rate 18 /min MD Michael Carballo Work Phone: [facility] 06-26-2021 00:24-0400 SaO2% (BldA) [Mass fraction] 96 % MD Michael Carballo Work Phone: [facility] 06-26-2021 00:24-0400 Systolic blood pressure 221 mm[Hg] MD Michael Carballo Work Phone: [facility] 12-19-2020 20:01-0400 Diastolic blood pressure 64 mm[Hg] Manuel Conner MD Work Phone: [employer] Work Phone: 12-19-2020 20:01-0400 Systolic blood pressure 182 mm[Hg] Manuel Conner MD Work Phone: [employer] Work Phone: 12-19-2020 19:00-0400 Heart rate 75 /min Manuel Conner MD Work Phone: [facility] Work Phone: 12-19-2020 19:00-0400 Respiratory rate 23 /min Manuel Conner MD Work Phone: [facility] Work Phone: 12-19-2020 19:00-0400 SaO2% (BldA) [Mass fraction] 94 % Manuel Conner MD Work Phone: [facility] Work Phone: 12-18-2020 06:30-0400 Body temperature 98.29 [degF] Manuel Conner MD Work Phone: [facility] Work Phone: Encounters Encounter Date Encounter Type Care Provider Facility Start: 09-28-2022 AUDIT Michael Carballo Work Phone: ZJ-Psxggrwqjv-Zlbiptbp SJW 260 DO Work Phone: Start: 07-24-2022 End: 07-24-[address] MICHAEL CARBALLO . Facility:[facility] Start: 07-15-2022 End: 07-15-[address] MICHAEL CARBALLO . Facility: Start: 07-13-2022 Patient encounter procedure Michael Carballo Work Phone: QW-Atvnxadery-IBN [place] [address] Work Phone: Start: 07-13-2022 Phys/qhp telephone evaluation 11-20 min Michael Carballo Work Phone: IQ-Sluagbticp-AYK [place] [address] Work Phone: Start: 07-13-2022 ambulatory MD SCOUT ROMO Facility:[facility] Start: 07-13-2022 End: 07-13-[address] MICHAEL CARBALLO . Facility: Start: 07-09-2022 AUDIT Michael Carballo Work Phone: XL-Pcsptqzjuj-VVE [place] 1800 Work Phone: Start: 06-08-2022 ambulatory Facility:[facility] Start: 06-05-2022 End: 06-05-[address] MICHAEL CARBALLO . Facility: Start: 06-04-2022 End: 06-04-[address] MICHAEL CARBALLO . Facility: Start: 04-14-2022 End: 04-15-2022 ambulatory DONNA ARELLANO [facility] Start: 04-14-2022 End: 04-14-2022 Subsequent hospital visit by physician Michael Carballo Work Phone: [facility] Start: 10-30-2021 End: 10-31-2021 ambulatory Manfred Wilson Facility:[facility] Start: 10-28-2021 End: 10-28-[address] MICHAEL CARBALLO . Facility: Start: 10-15-2021 Patient encounter procedure Michael Carballo Work Phone: PU-Wltdbbryfl-DLS [facility] [place] Work Phone: Start: 10-15-2021 ambulatory DO FELICIA ASTORGA Facility:[facility] Start: 08-05-2021 End: 08-06-[address] MICHAEL CARBALLO . Facility: Start: 07-16-2021 Office outpatient vi sit 25 minutes Michael Carballo Work Phone: VY-Pqomzofttd-GLY [facility] [place] Work Phone: Start: 07-16-2021 Patient encounter procedure Michael Carballo Work Phone: SC-Htwdftyenb-DKE [facility] [place] Work Phone: Start: 06-27-2021 End: 07-03-2021 [facility] and [id number] Start: 06-25-2021 End: 06-27-2021 Evaluation and management of inpatient MD Michael Carballo Work Phone: [facility] Start: 06-25-2021 Patient encounter procedure Michael Carballo Work Phone: SN-Vpcarovzyw-EOA [facility] [address] [place] Work Phone: Start: 06-24-2021 End: 06-24-2021 Patient encounter procedure MD Michael Carballo Work Phone: [facility] Start: 05-28-2021 AUDIT Michael Carballo Work Phone: BI-Juxzvxakgl-UAT [facility] [address] [place] Work Phone: Start: 05-27-2021 End: 05-27-2021 Patient encounter procedure MD Michael Carballo Work Phone: [facility] Start: 01-01-2021 Patient encounter procedure Michael Carballo Work Phone: KA-Rvfdkwxjkr-PTZ [facility] [address] [place] Work Phone: Start: 01-01-2021 WANG, Provider : Felicia Astorga, Status: Pen, Time: 2:20 PM Michael Carballo Work Phone: XR-Sqcjdrhunm-Fnyctmof SJW 260 DO Work Phone: Start: 12-31-2020 AUDIT Michael Carballo Work Phone: RP-Zdwijccsne-Rkneltln SJW 260 DO Work Phone: Start: 12-17-2020 End: 12-19-2020 Emergency department patient visit Manuel Conner MD Work Phone: [facility] ED Comment on above: [place] coma scale t otal score 13-15, at hospital admission (Primary Dx); Acute kidney injury (HCC); Heart replaced by transplant (HCC); Confusion Start: 11-21-2020 AUDIT Michael Carballo Work Phone: CX-Swnldgawpy-ISQ [facility] [address] [place] Work Phone: Start: 10-31-2020 AUDIT Michael Carballo Work Phone: [facility] Work Phone: Procedures Date Procedure [...] heart recipient Heart repla vaibhav by transplant ([facility]) Manuel Conner MD Work Phone: H/O: heart [...] Montse Villanueva, Status: Pen, Time: 2:00 PM FQ-Tojpdvbucl-YSX [place] [facility] Work Phone: Start: 07-13-2022 VIRFUCORI, Provider : Scout Romo, Status: Pen, Time: 1:40 PM VIRFUVHOME, Provider: Scout Romo, Status: Pen, Time: 1:40 PM VH-Bdhjxtlivu-EZO [place] [address] Work Phone: Start: 04-01-2022 VIRFUCORI, Provider : Felicia Astorga, Status: Pen, Time: 1:00 PM VIRFUCORI, Provider: Felicia Astorga, Status: Pen, Time: 1:00 PM IS-Uvilzinbtm-PAV [facility] [address] [place] Work Phone: Start: 12-19-2021 Creatinine measurement Creatinine [facility] Work Phone: Start: 12-19-2021 Potassium monitoring Potassium monit [facility] Work Phone: Start: 10-20-2021 Influenza vaccination Flu vaccine (# 1) [facility] Start: 07-16-2021 Patient encounter procedure [facility] Start: 07-03-2021 End: 07-04-2022 Insulin Glargine (Lantus) Injectable Subcutaneous Once ; DOSE = 12 unit(s) SubCutaneous At BedtimeNotes from Pharmacy: [facility] Start: 03-Jul-2021 End: 03-Jul-2022 Ordered: 03-Jul-2021 Magy Galeas Intent [facility] Start: 07-01-2021 End: 07-02-2022 [facility] Comment on above: IF patient [...] End: 30-Jun-2022 Ordered: 30-Jun-2021 Jihan Storm [facility] Start: 06-27-2021 End: 06-28-2022 Sodium Chloride 0.9% Injectable Flush Peripheral Line ; via Peripheral LineVolume = 10 mL IntraVenous Flush Every 8 Hours and as Needed Start: 27-Jun-2021 End: 27-Jun-2022 Ordered: 26-Jun-2021 Magy Galeas [facility] Start: 06-26-2021 Duplex scan of upper limb arteries US arterial duplex [facility] Start: 12-17-2020 Annual Wellness Visi t (AWV) Annual Wellness Visit (AWV) [facility] [employer] Start: 11-20-2020 Influenza vaccination Flu vaccine (# 1) [employer] Phone: Start: 07-16-2020 COVID-19 Vaccine (3 - Pfizer risk 3-dose series) COVID-19 Vaccine (3 - Pfizer risk 3-dose series) [employer] Phone: Start: 07-16-2020 COVID-19 Vaccine (3 - Pfizer risk series) COVID-19 Vaccine (3 - Pfizer risk series) [facility] [employer] Start: 10-01-2016 Pneumococcal 65+ yrs at Risk Vaccine (2 of 2 - PCV13) Pneumococcal 65+ yrs at Risk Vaccine (2 of 2 - PCV13) [employer] Phone: Start: 10-10-1993 Shingles Vaccine (1 of 2) Shingles Vaccine (1 of 2) [employer] Phone: Start: 10-10-1962 DTaP/Tdap/Td vaccine (1 - Tdap) DTaP/Tdap/Td vaccine (1 - Tdap) [facility] Start: 10-10-1962 Shingles vaccine (1 of 2) Shingles vaccine (1 of 2) [facility] [employer] Start: 10-10-1961 Hepatitis C screening Hepatitis C [facility] [employer] Start: 1955 Depression Screen Depression Screen [facility] Start: 10-10-[address] [facility] Start: 1945 Hepatitis C screening [facility]atitis C [facility] Work Phone: Calcium [Mass/volume ] in Serum or Plasma [facility] Work Phone: Carbon dioxide, tota l [Moles/volume] in Serum or Plasma [facility] Work Phone: Chloride [Moles/volu me] in Serum or Plasma [facility] Work Phone: Creatinine and Glomerular filtration rate.predicted panel - Serum, Plasma or Blood [facility] Work Phone: Culture, Blood 1 [facility] Work Phone: Culture, Wound Culture, Wound Microbiology Routine 04/14/2022 3:25 PM EST LEONID MAY [facility] Work Phone: Glucose [Mass/volume ] in Serum or Plasma [facility] Work Phone: Goals of care, counseling/discussion [facility] Measurement of renal function [facility] Work Phone: Potassium [Moles/volume] in Serum or Plasma [facility] Work Phone: Sodium [Moles/volume ] in Serum or Plasma [facility] Work Phone: Tacrolimus [Mass/volume] in Blood [facility] Work Phone: End: 12-18-2020 Tacrolimus Level [facility] Work Phone: Comment on above: One Time for 1 Occur rences starting 12/18/2020 until 12/18/2020 End: 12-19-2020 Tacrolimus Level Tacrolimus Level Lab Routine One Time for 1 Occurrences starting 12/19/2020 until 12/19/2020 [facility] Work Phone: Comment on above: One Time for 1 Occur rences starting 12/19/2020 until 12/19/2020 Tacrolimus Level [facility] Work Phone: Urea nitrogen [Mass/volume] in Serum or Plasma [facility] Work Phone: Immunizations Immunization Date Immunization Notes Care Provider Fa cility 03-21-2021 Pfizer-BioNTech COVI D-19 Vacc 30 MCG/0.3ML Intramuscular Suspension Michael Carballo Work Phone: MT-Silpalegik-KNW [facility] [address] [place] Work Phone: 06-18-2020 Pfizer-BioNTech COVI D-19 Vacc 30 MCG/0.3ML Intramuscular Suspension Michael Carballo Work Phone: [facility] Work Phone: 05-27-2020 Pfizer-Pony [employer] COVI D-19 Vacc 30 MCG/0.3ML Intramuscular Suspension Michael Candelario Haris Work Phone: [facility] Work Phone: 12-29-2019 Seasonal trivalent influenza vaccine, adjuvanted, preservative free Michael Palomino Haris Work Phone: [facility] Work Phone: 12-22-2017 Seasonal trivalent influenza vaccine, adjuvanted, preservative free Michael Palomino Haris Work Phone: [facility] Work Phone: 12-28-2016 Seasonal trivalent influenza vaccine, adjuvanted, preservative free Michael Palomino Haris Work Phone: [facility] Work Phone: 12-24-2015 influenza, high dose seasonal, preservative-free Michael Palomino Haris Work Phone: [facility] Work Phone: 10-02-2015 influenza, seasonal, injectable Michael Palomino Haris Work Phone: [facility] Work Phone: 10-02-2015 pneumococcal polysaccharide vaccine, 23 valent Michael Palomino Haris Work Phone: [facility] Work Phone: 01-09-2015 influenza, injectabl e, quadrivalent, contains preservative Michael Palomino Haris Work Phone: [facility] Work Phone: 01-03-2013 influenza, seasonal, injectable Michael Palomino Haris Work Phone: [facility] Work Phone: 01-07-2009 influenza virus vacc ine, whole virus Michael Palomino Haris Work Phone: [facility] Work Phone: 01-20-2005 influenza virus vacc ine, whole virus Michael Palomino Carballo Work Phone: [facility] Work Phone: Payers Date Payer Category Payer Self-pay [id number] 1961 Medicaid [id number] 1961 Medicare [id number] 1961 Medicare [id number] 1959 Private Health Insurance [id number] 1943 Unknown [id number] 2.16.8 [id number] 1943 Unknown [id number] 2.16.84 [id number] 1943 Unknown [id number] 2.16.84 [id number] 1943 Unknown [id number] 2.16.84 [id number] 1943 Unknown [id number] 2.16.84 [id number] 1943 Unknown [id number] 2.16.84 [id number] 1943 Unknown [id number] 2.16.84 [id number] 1943 Unknown [id number] 2.16.84 [id number] 1943 Unknown [id number] 2.16. [id number] 1943 Unknown [id number] 2.16. [id number] Unknown Unknown [id number] 2.16.8 [id number] Social History Date Type Detail Facility Former smoker Former smoker [facility] Work Phone: Start: 12-17-2020 Tobacco smoking stat us NCIS Unknown if ever smoked [facility] Work Phone: Start: 1945 Sex Assigned At Not on file [facility] Work Phone: Exposure to SARS-CoV -2 (event) Unable to assess [facility] Start: 12-13-2020 [facility] Start: 1945 Sex Assigned At Male F [facility] Start: 06-26-2021 End: 06-26-2021 Tobacco smoking status NHIS Ex-smoker (finding) [facility] End: 03-22-1996 History of tobacco use [facility] Work Phone: Goals Date Patient Goal Desired Activity /State Functional Status Date Assessment Result Facility 06-27-2021 Functional status Patient at [facility] Work Phone: Functional observable [facility] Mental Status Date Assessment Result Facility 06-30-2021 Cognitive functi ons [id number] [facility] 06-27-2021 Cognitive function Cognitive Sta tus Patient at Baseline [facility] Work Phone: Clinical Notes 07-05-2000 to 07-03-2021 <item><item><item><item><item><item><item><item><item> Note Date & Type Note Facility 07-03-2021 Hospital Discharge instructions Activity:activity with assistance. May shower.Labs 1 (Modify Template):Lab Test(s): Basic Metabolic Panel, CBC, Tacrolimus levelDate To Be Drawn: 07/07/2021all Results To: Dr. Felicia Moore Results To: [id number] Orders:Blood Glucose Monitoring: ACHSAdditional Instructions: Use of [...] Uncontrolled diabetesCall to Schedule in: 2 weeksLocation[facility]: [facility] Up Appointment 2:Physician/Dept/Service: Dr. Felicia Astorga / Heart failure and transplantReason for Referral: hospital follow-upLocation: Heather 1800Comments: Our office will call you to set up an appointment either in person or virtually. [facility] 06-27-2021 Discharge summary Note Date/Time June 27, 2021 10:32am [facility] [address] [place] [address] Discharge Summary Signed Patient: Oliverio Escobedo MR#: [id number] : 1945 Acct:[id number] Age/Sex: 75 / M Adm Date: 2 Loc: 3T Room: [address] [place] [address]: Yoshi Hernandez MD Copies to: MD Manfred Olvera([facility] Providers Date of Discharge: 06/27/21 [...] 1 tab PO BID RF: 0 omega 9-uft-koq-fish oil [Fish Oil] 1,000 mg (120 mg-180 [...] signed by Yoshi Hernandez MD> 06/27/21 1032 [facility] Work Phone: 1(983) 271-589904-08-2022 Progress note Author Bonilla Ortiz [facility] June 27, 2021 10:27am Note Date/Time June 27, 2021 10:2 7am [facility] [address] [place] [address] Cardiology Progress Note Signed Patient: Oliverio Escobedo MR#: [id number] : 1945 Acct:[id number] Age/Sex: 75 / M Adm Date: 2 Loc: 3T Room: [address] [place] [address] Type : ADM INOo Attending Dr: Yoshi Hernandez MD Copies to: ~ Date of Service: 06/27/2021 Subjective Principal diagnosis: Edema w history of orthotopic heart transplant Interval history: Mr. Escobedo is a 75 year old male with known history of orthotopic heart transplantation in 2000 done at [facility] who was admitted to the inpatient hospitalist service last night after presenting from the [facility] with complaints of increasing swelling in both legs and the right arm for several days. The patient is resting comfortably this morning. He did diurese gently yesterday. He currently has no cardiac complaints. His breathing feels comfortable lying flat at rest. Swelling in both feet and calves is still present. NB: The patient has been accepted by the transplant service at [facility]. At this point we are awaiting bed [...] Agree with transfer to transplant service at [facility] for further management. Plan Thank you very much for this kind consultation and for allowing me to participate in the care of this very pleasant patient. Time spent with patient Time Spent With Patient (min): 20 Documented By: Bonilla Ortiz MD 06/27/21 1024 Signed By: <Electronically signed by Bonilla Ortiz MD> 06/27/21 1027 [facility] Work Phone: 1(122) 206-363004-07-2022 Progress note Author Yoshi Wu [facility] June 26, 2021 6:27pm Note Date/Time June 26, 2021 6:27 pm [facility] [address] [place], [place] [id number] Hospitalist Progress Note Signed Patient: Oliverio Escobedo MR#: [id number] : 1945 Acct:[id number] Age/Sex: 75 / M Adm Date: 2 Loc: Room: [address] [place] [address] Type : ADM INOo Attending Dr: Yoshi [...] Oil 1,000 mg 06/26/21 09:00 06/26/21 09:01 [place]-3/Fish Oil 1,000 Mg Capsule PO 06/26/22 08:59 [...] signed by Yoshi Hernandez MD> 06/26/21 182 [facility] Work Phone: 1(185) 393-945604-07-2022 Consult note Author Bonilla Ortiz [facility] June 26, 2021 2:26pm Note Date/Time June 26, 2021 2:23 pm [facility] [address] [place] [address] Cardiology Consult Note Signed Patient: Oliverio Escobedo MR#: [id number] : 1945 Acct:[id number] Age/Sex: 75 / M Adm Date: 2 Loc: 3T Room: [address] [place] [address] Type : ADM INOo Attending Dr: Yoshi Hernandez MD Copies to: MD Manfred Olvera([facility]) DO Bonilla Wilson MD~ Cardiology HPI History of Present Illness Consult Date: 06/26/21 Reason for Consult: Bilateral lower extremity swelling Remote history of orthotopic heart transplantation HPI: Mr. Escobedo is a 75 year old male with known history of orthotopic heart transplantation in 2000 done at [facility] who was admitted to the inpatient hospitalist service last night after presenting from the [facility] with complaints of increasing swelling in both [...] the results were sent to his transplant product safety tester in [place]. She doesnot know the results. On my evaluation the patient was undergoing bedside transthoracic echocardiography. Preliminary interpretation of the study shows normal resting left ventricular regional wall motion and systolic function. Ejection fraction appears greater than 55%. There is no notable pericardial or pleural effusion. There is no notable/significant valvular heart disease noted. By report the patient's transplant service at [facility] has been contacted and is requested the [...] PO BID 02/02/17 [History Confirmed 06/25/21] omega 5-rhc-euc-fish oil 1,000 mg (120 mg-180 mg) capsule [...] x10E3/uL Lymph # (Auto) 1.0 (1.00-4.8) x10E3/uL Archer # (Auto) 0.5 (0.0-0.8) x10E3/uL Eos # [...] Agree with transfer to transplant service at [facility] for further management. Code(s): Z94.1 - Heart transplant status Plan Thank you very much for this kind consultation and for allowing me to participate in the care of this very pleasant patient. Documented By: Bonilla Ortiz MD 06/26/21 1415 Signed By: <Electronically signed by Bonilla Ortiz MD> 06/26/21 1426 [facility] Work Phone: 1(992) 445-627404-07-2022 History and physical note Author Omid Myrick [facility] June 26, 2021 7:44am Note Date/Time June 26, 2021 12:1 6am [facility] [address] [place], [place] [id number] Hospitalist H&P Signed Patient: Oliverio Escobedo MR#: [id number] : 1945 Acct:[id number] Age/Sex: 75 / M Adm Date: 2 Loc: 3T Room: [address] [place] [address] Type : ADM INOo Attending Dr: Yoshi Hernandez MD Copies to: MD Manfred Olvera([facility]) DO Audra Wilson APRN Marwan Wassouf, [...] been trying to schedule an appointment with [facility] product safety tester but were unable. Patient is hard of [...] PO BID 02/02/17 [History Confirmed 06/25/21] omega 0-rfu-nya-fish oil 1,000 mg (120 mg-180 mg) capsule [...] % (Auto) 12.9 % (.) 06/25/21 19:30 Archer % (Auto) 7.3 % (.) 06/25/21 19:30 Eos % (Auto) 4.6 % (.) 06/25/21: Baso % (Auto) 0.6 % (.) 06/25/21: Neut # (Auto) 5.6 x10E3/uL (1.8-7.7) 06/25/21 19: Lymph # (Auto) 1.0 x10E3/uL (1.00-4.8) 06/25/21 19:30 Archer # (Auto) 0.5 x10E3/uL (0.0-0.8) 06/25/21 19: [...] MD Documented By: Audra Quinteros APRN 06/25/21 9710 Signed By: <Electronically signed by GABBIE Quinteros> 06/26/21 0057 <Electronically signed by Omid Myrick MD> 06/26/21 9846 [facility] Work Phone: 1(330) 640-941509-30-2021 Evaluation note* Diagnosis [place] coma scale total score 13-15, at hospital admission- Primary Acute kidney injury (HCC) Acute kidney failure, unspecified Heart replaced by transplant (HCC) Heart replaced by transplant Confusion Unspecified psychosis documented in this encounter [facility] Work Phone: 1(879) 251-890909-30-2021 History of Present illness Narrative* 74 yo [...] trazodone and aripirazole. Discharged back to [facility] with 2x/week home trips. * Immunosuppression: MMF 250 mg BID, tacrolimus 1.5 mg BID (FK 5.4 on 12/24/20, goal 5-8) * Rejection Hx/DSAs: None documented * Last echo: 12/20/20 GU-Sanrzzebgk-CIR [facility] [address] [place] Work Phone: 1(133) 423-748809-28-2021 History of Present illness Narrative* Liliya Baker RN - 12/17/2020 10:31 AM EDT Spoke with nurse from [facility] at this time. They will fax lab work to us from [facility]. documented in this [facility] Work Phone: 1(639) 369-390604-16-2001 History of Present illness Narrative* Mr. Escobedo [...] September 2021. [place] He has started Zoloft for depression. 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 Needs assistance with transfers. He has not had any new doctors appointmetns. * Immunosuppression: MMF 250 mg BID, tacrolimus 1 mg BID (FK 11.0 on 10/10/21, goal 5-8) * Rejection Hx/DSAs: None documented * Last echo: 12/20/20 GB-Xthwnvugph-FNK [facility] [address] Work Phone: Chief complaint Narrative [...] 04:20 PM , for a telehealth visit. HC-Ppvwpbviue-KRR [facility] [address] [place] Work Phone: Evaluation noteNo assessment information available [facility] Work Phone: Evaluation note* Diagnosis Onset Date Resolution Status Acute kidney injury acute Bilateral edema of lower extremity acute Shortness of breath acute [facility] Work Phone: Evaluation note* Diagnosis Onset Date Resolution Status Acute kidney injury acute Bilateral edema of lower extremity acute History of heart transplant acute Shortness of breath acute [facility] Work Phone: Evaluation note* Psychological: Appropriate [...] distress, alert and cooperative, hard of hearing [facility]* Mr. [...] trazodone and aripirazole. Discharged back to [facility] with 2x/week home trips. * Immunosuppression: MMF 250 mg BID, tacrolimus 1.5 mg BID (FK 5.4 on 12/24/20, goal 5-8) * Rejection Hx/DSAs: None documented * Last echo: 12/20/20 PG-Nbarhoftzd-AVM hive01 [address] [place] Work Phone: History of Present [...] LE edema. Spoke with RN at [facility]; states LE edema has been ongoing for several weeks, with a rash . * Labs drawn 06/24/21; BNP 224 * Immunosuppression: MMF 250 mg BID, tacrolimus 1.5 mg BID (FK 5.4 on 12/24/20, goal 5-8) - FK pendingfrom 06/24/21 from SNF * Rejection Hx/DSAs: None documented * Last echo: 12/20/20 GN-Mbnngwwmvq-ELE [facility] [address] [place] Work Phone: History of Present [...] Hx/DSAs: None documented * Last echo: 12/20/20 OH-Worhpgfsrg-HWE [facility] [address] [place] Work Phone: History [...] Hx/DSAs: None documented * Last echo: 12/20/20 WK-Gjrgdbdbfa-QFG [facility] [address] [place] Work Phone: History [...] last office visit; documented BPs at the [facility] 120-130s/70-80s. * Benadryl 25 mg q6h PRN for itching/dry skin. * Immunosuppression: MMF 250 mg BID, tacrolimus 1.5 mg BID (FK 5.5 on 07/03/21, goal 5-8) - FK level pending from 10/11/21 * Rejection Hx/DSAs: None documented * Last echo: 12/20/20 RN-Awxosopjyr-[facility] Heather [place] [address] [place] Work Phone: Reason for referral (narrative)* Reason for Referral: HF, DAVID, scabies [facility] Family History No Family History [...] content) Reason Comments Altered Mental Status onset [employer]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; staff state pt would not respond and stared off into space Hypotension [employer] OFF[employer]ER staff from [facility] rn state BP 70s/ANGELICA diastolic Scheduled [...] is suspension with MINIMUM of SIZE 8 FINNISH 1500 (Given - Provider: Sola Dee RN)[id number] [...] Active Yoshi Hernandez MD Attending Provider 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 Start Date End Date Michael Carballo [address] [place] [address] PCP - General Specialist 12/17/20 Goals (unrecognized [...] section and content) DATE CREATED AUTHOR 07/14/2021 [facility] DATE CREATED AUTHOR AUTHOR'S ORGANIZ ATION 04/18/2022 [facility] DATE CREATED AUTHOR AUTHOR'S ORGANIZ ATION 07/17/2022 [employer] DATE CREATED AUTHOR AUTHOR'S ORGANIZ ATION 07/31/2022 [facility] DATE CREATED AUTHOR AUTHOR'S ORGANIZ ATION 09/07/2022 [facility] DATE CREATED AUTHOR AUTHOR'S ORGANIZ ATION 09/14/[address] [facility] DATE CREATED AUTHOR AUTHOR'S ORGANIZ ATION 11/21/2022 [facility] FOR RECORDS PERTAINING TO PATIENTS [...] BE BASED ON THE PRIMARY CLINICAL RECORDS. [facility] [employer] [facility] provides no warranty or guarantee of the accuracy or completeness of information in this document.
--- OUTSIDE RECORDS SUMMARY | 2023-10-08 09:14 | XMS_ITS | CCD ---
Author Organization [facility] Care Team Providers Care Commissioned Police Officer Name Role Phone Michael Carballo Unavailable Unavailable Unavailable Michael Carballo Primary Care Provider MD Michael Carballo Primary Care Provider JIL Davies Attending Provider DO Manfred Wilson [facility] Andrew Hern[facility]dez Emergency Provider MD Omid Myrick Admit Provider MD Omid Myrick Attending Provider [phone] Al MD Yoshi Campoverde Attending Provider Michael Carballo Unavailable DionPascual wheataashish Unavailable Palliative Care Unavailable Unavailable Gene Shook Unavailable Felicia Astorga Unavailable Michael Carballo Primary Care Provider [phone] DONNA ARELLANO Referring Unavailable MICHAEL CARBALLO Primary [...] sources) Allopurinol; Translations: [allopurinol] Drug Allergy 10-16-2018 [facility] (8 sources) ceFAZolin; Translations: [Cefazolin] Drug Allergy 06-25-2021 Rash, [facility] Comment on above: extensive fiery red and warm flat rash (1 source) Allopurinol Drug Allergy [facility] (1 source) ceFAZolin Drug Allergy [facility] Rep[facility] (1 source) Allopurinol Drug Allergy 06-25-2021 [facility] Repository Medications Current Medications Medication Drug Class(es) [...] mg Start: 11-03-2018 take 1 capsule by [facility] once daily in the evening dilTIAZem HCl ER Coated Beads 300 MG Oral Capsule Extended Release 24 Hour take 1 capsule every evening Quantity: 0 Refills: 0 Ordered: 04-Jul-2021 Felicia Astorga DO Start : 03-Nov-2018 Active Start: 11-03-2018 take 1 capsule by [facility] once daily dilTIAZem HCl ER Coated Beads 360 MG Oral Capsule Extended Release 24 Hour TAKE 1 CAPSULE Daily Quantity: 30 Refills: 11 Ordered: 03-Nov-2018 Felicia Astorga DO Start : 03-Nov-2018 Active Start: 11-03-2018 take 1 capsule by [facility] once daily dilTIAZem HCl ER Coated Beads 240 MG Oral Capsule Extended Release 24 Hour TAKE 1 CAPSULE Daily Quantity: 90 Refills: 3 Ordered: 24-Dec-2020 Felicia Astorga DO Start : 03-Nov-2018 Active Start: 10-31-2018 take 1 capsule by [facility] every twenty-four hours dilTIAZem 240 [...] mg Start: 11-02-2018 take 1 capsule by [facility] every twelve hours Mycophenolate Mofetil [...] Tamiko Dsouza Status: Discontinued Generic Substitution Allowed Avenal 2-Cjq-Kqr-Fish Oil (Fish Oil) 1,000 mg (120 mg-180 mg) Capsule (4 sources) Start: 08-05-2017 take 1 tablet by mouth twice daily Avenal 0-Iyy-Mua-Fish Oil (Fish Oil) 1,000 mg (120 mg-180 mg) Capsule Active 1 TAB PO Twice daily August 05, 2017 11:13am Start: 08-05-2017 take 1 tablet by anila th once daily Avenal 4-Izw-Euh-Fish Oil (Fish Oil) 1,000 mg (120 mg-180 mg) Capsule Active 1 TAB PO Daily August 05, 2017 11:13am Start: 08-05-2017 take 1 tablet by anila th twice daily Avenal 0-Gbq-Egf-Fish Oil (Fish Oil) 1,000 mg (120 mg-180 [...] tube 2 times a day only on Fswigc-Aexjzzzzr-Evetvp Quantity: 24 Refills: 0 Ordered: 21-Jan-2016 Warren [...] liver damage. take 2 tablets by mo [facility] every six hours as needed for pain [...] Start: 10-15-2021 take 2 tablets by mo [facility] once daily busPIRone HCl - 10 MG Oral Tablet TAKE 2 TABLET Daily Quantity: 0 Refills: 0 Ordered: 15-Oct-2021 DO Start : 15-Oct-2021 [facility] bus[facility]one (BUSPAR) 15 MG [...] Allowed Start: 10-31-2018 take 1 capsule by [facility] every six hours as needed [...] 1 capsule by mouth twice da padmaja Avenal-3 Fatty Acids (FISH OIL) 1000 MG CAPS [...] if Blood Glucose is between 251 - 63000 unit(s) if Blood Glucose is between 301 - 22172 unit(s) if Blood Glucose is between 351 [...] if Blood glucose is between 301 - 87957 unit(s) if Blood glucose is between 351 [...] 02-Jul-2021 Generic Substitution Allowed polyethylene glycol 3350 62563 mg powder for oral solution (7 sources) Osmotic Laxative Start: 10-15-2021 MiraLax Mix-I n [place] 17 GM Oral Packet MIX 1 PACKET [...] Allowed Start: 07-02-2021 take 1 capsule by [facility] every twelve hours Tacrolimus 1 [...] (1 source) Namrata coma scale finding; Translations: [Freeland coma scale score 13-15, at hospital admission] [...] upper extremity 06-30-2021 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 (1 source) intermediate frame tender current use of insulin 07-02-2021 Past or Other Problems Problem Classification Problem Date Documented Da te Episodic/Chronic Other gastrointestinal disorders (1 source) Dysphagia, unspecified; Translations: [DYSPHAGIA UNSPECIFIED] Onset: 08-08-2021 Episodic 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 (1 source) SWELLING UPPER/LOW EXTREMITIES 06-27-2021 Comment on above: SWELLING UPPER/LOW E XTREMITIES Results Test Name Value Interpretation Reference Range Facility Lab Report[facility] 09-14-2022 Lab Reports [id number]:127 Normal [facility] VIT D 25-OH LABCORPon 2022 Vitamin D, 25-Hydroxy 29.5 ng/mL Critically low 30.0-100.0 [facility] Comment on above: Result Comment: Jennifer min D deficiency has been defined by the [place] of Medicine and an Endocrine Society practice guideline as a level of serum 25-OH vitamin D less than 20 ng/mL (1,2). The Endocrine Society went on to further define vitamin D insufficiency as a level between 21 and 29 ng/mL (2). 1. IOM ([place] of Medicine). 2010. Dietary reference intakes for calcium and D. [place]: The National Academies Press. 2. Ely MF, Brad NC, Kristy ORTEGA, et al. Evaluation, treatment, and prevention of vitamin D deficiency: an Endocrine Society clinical practice guideline. JCEM. 2010; 96(7):1911-30. Performed By: #### V ITADLC #### [facility] [address] [place] [address] Dr. Ronnie Pennington CBC AUTO DIFFon 07-24-2022 BASO # 0.0 103/ul Normal 0.0-0.1 [facility] Comment on above: Performed By: #### C BC #### [facility] [id number] Ronnie Pennington Basophils/100 WBC (Bld) 0.6 % Normal 0.2-2.[address] [facility] Comment on above: Performed By: #### C BC #### [facility] [address] [address] [address] Ronnie Pennington EO # 0.1 103/ul Normal 0.0-0.7 [facility] Comment on above: Performed By: #### C BC #### [facility] [address] [address] [address] Ronnie Pennington Eosinophils/100 WBC (Bld) 2.0 % Normal 0.9-7.0 [facility] Comment on above: Performed By: #### C BC #### [facility] [address] [place] [address] Dr. Ronnie Pennington Erythrocyte distribution width (RBC) [Ratio] 13.2 % Normal 11.0-15.0 [facility] Comment on above: Performed By: #### C BC #### [facility] [address] [place] [address] Dr. Ronnie Pennington Hematocrit (Bld) [Volume fraction] 33.3 % Critically low 42.0-54.0 [facility] Comment on above: Performed By: #### C BC #### [facility] [address] [place] [address] Dr. Ronnie Pennington Hemoglobin (Bld) [Mass/Vol] 10.0 g/dL Critically low 14.0-18.0 [facility] Comment on above: Performed By: #### C BC #### [facility] [address] [address] [address] Ronnie Pennington IG # 0.04 10e3/ul Critically high 0.00-0.03 [facility] Comment on above: Performed By: #### C BC #### [facility] [address] [address] [address] Ronnie Pennington IG % 0.6 % Critically high 0.0-0.5 [facility] Comment on above: Performed By: #### C BC #### [facility] [address] [place] [address] Dr. Ronnie Pennington LYMPH # 1.2 103/ul Normal 1.2-3.8 [facility] Comment on above: Performed By: #### C BC #### [facility] [address] [place] [address] Dr. Ronnie Pennington Lymphocytes/100 WBC (Bld) 17.9 % Critically low 20.5-60.0 [facility] Comment on above: Performed By: #### C BC #### [facility] [address] [place] [address] Dr. Ronnie Pennington MANUAL DIFF REQ NO Normal [facility] Comment on above: Performed By: #### C BC #### [facility] [address] [place] [address] Dr. Ronnie Pennington MCH (RBC) [Entitic mass] 28.2 pg Normal 25.9-34.0 [facility] Comment on above: Performed By: #### C BC #### [facility] [address] [place] [address] Dr. Ronnie Pennington MCHC (RBC) [Mass/Vol] 30.0 g/dL Normal 29.9-35.2 [facility] Comment on above: Performed By: #### C BC #### [facility] [address] [place] [address] Dr. Ronnie Pennington MCV (RBC) [Entitic vol] 94.1 fL Critically high 80.0-94 .0 [facility] Comment on above: Performed By: #### C BC #### [facility] [address] [place] [address] Dr. Ronnie Pennington MONO # 0.4 103/ul Normal 0.3-0.8 [facility] Comment on above: Performed By: #### C BC #### [facility] [address] [place] [address] Dr. Ronnie Pennington Monocytes/100 WBC (Bld) 6.5 % Normal 1.7-12.[address] [facility] Comment on above: Performed By: #### C BC #### [facility] [address] [place], [place] [id number] Dr. Ronnie Pennington NEUT # 4.8 103/ul Normal 1.4-6.5 [facility] Comment on above: Performed By: #### C BC #### [facility] [address] [place] [address] Dr. Ronnie Pennington Neutrophils/100 WBC (Bld) 72.4 % Normal 43.0-75.0 [facility] Comment on above: Performed By: #### C BC #### [facility] [address] [place] [address] Dr. Ronnie Pennington Platelet mean volume (Bld) [Entitic vol] 11.7 fL Normal 9.5-13.5 [facility] Comment on above: Performed By: #### C BC #### [facility] [address] [place] [address] Dr. Ronnie Pennington PLT 137 103/ul Critically low 150-450 [facility] Comment on above: Performed By: #### C BC #### [facility] [address] [place] [address] Dr. Ronnie Pennington RBC 3.54 106/ul Critically low 4.70-6.10 [facility] Comment on above: Performed By: #### C BC #### [facility] [address] [place] [address] Dr. Ronnie Pennington WBC 6.6 103/ul Normal 4.0-11.0 [facility] Comment on above: Performed By: #### C BC #### [facility] [address] [place] [address] Dr. Ronnie Pennington GLYCOHEMOGLOBIN A1Con 2022 ADA RECOMMENDATION SEE BELOW Normal [facility] Comment on above: Result Comment: ADA RECOMMENDED LIMIT 4.0 - 6.0 ADA THERAPEUTIC TARGET < 7.0 ACTION SUGGESTED > 7.0 Performed By: #### A 1C #### [facility] [address] [place] [address] Dr. Ronnie Pennington Glucose [Mass/Vol] 171 mg/dL Normal [facility] Comment on above: Performed By: #### A 1C #### [facility] [address] [place] [address] Dr. Ronnie Pennington HbA1c (Bld) [Mass fraction] 7.6 % Critically high 4.5-6.2 [facility] Comment on above: Performed By: #### A 1C #### [facility] [address] [address] [address] Ronnie Pennington MAGNESIUMon 07-24-2022 Magnesium [Mass/Vol] 2.3 mg/dL Normal 1.8-2.4 [facility] Comment on above: Performed By: #### M G, TSH, CMP ####[facility] [address] [address]DrFreddy Pennington PROF 14(COMP METB)on 023 Albumin [Mass/Vol] 2.8 g/dL Critically low 3.4-5.[address] [facility] Comment on above: Performed By: #### M G, TSH, CMP ####[facility] [address] [address]DrFreddy Pennington Albumin/Globulin [Mass ratio] 0.7 {ratio} Normal [facility] Comment on above: Performed By: #### M G, TSH, CMP ####[facility] [address] [address]Dr. Ronnie Pennington ALP [Catalytic activity/Vol] 69 U/L Normal 46-116 [facility] Comment on above: Performed By: #### M G, TSH, CMP ####[facility] [address] [address]DrFreddy Pennington ALT [Catalytic activity/Vol] 8 U/L Critically low 16-63 [facility] Comment on above: Performed By: #### M G, TSH, CMP ####[facility] [address] [id number]. Ronnie Pennington Anion gap [Moles/Vol] 9.9 mmol/L Normal [facility] Comment on above: Performed By: #### M G, TSH, CMP ####[facility] [address] [address]Dr. Ronnie Pennington AST [Catalytic activity/Vol] 9 U/L Critically low 15-37 [facility] Comment on above: Performed By: #### M G, TSH, CMP ####[facility] [address] [address]Dr. Ronnie Pennington Bilirubin [Mass/Vol] 0.2 mg/dL Normal 0.2-1.0 [facility] Comment on above: Performed By: #### M G, TSH, CMP ####[facility] [address] [place], [place] [address]Dr. Ronnie Pennington Calcium [Mass/Vol] 8.9 mg/dL Normal 8.5-10.1 [facility] Comment on above: Performed By: #### M G, TSH, CMP ####[facility] [address] [place], [place] [address]Dr. Ronnie Pennington Chloride [Moles/Vol] 104 mmol/L Normal 98-107 [facility] Comment on above: Performed By: #### M G, TSH, CMP ####[facility] [address] [place], [place] [address]Dr. Ronnie Pennington CO2 [Moles/Vol] 28.4 mmol/L Normal 21.0-32.0 [facility] Comment on above: Performed By: #### M G, TSH, CMP ####[facility] [address] [place], [place] [address]Dr. Ronnie Pennington Creatinine [Mass/Vol] 2.09 mg/dL Critically high 0.70-1.30 [facility] Comment on above: Performed By: #### M G, TSH, CMP ####[facility] [address] [place], [place] [address]Dr. Ronnie Pennington EGFR-AF [place] 37 mL/min/1.73m2 Critically low >=60 [facility] Comment on above: Performed By: #### M G, TSH, CMP ####[facility] [address] [place], [place] [address]Dr. Ronnie Pennington EGFR-NON AF [place] 31 mL/min/1.73m2 Critically low >=60 [facility] Comment on above: Performed By: #### M G, TSH, CMP ####[facility] [address] [id number]. Ronnie Pennington Globulin (S) [Mass/Vol] 3.9 g/dL Normal [facility] Comment on above: Performed By: #### M G, TSH, CMP ####[facility] [address] [address]Dr. Ronnie Pennington Glucose [Mass/Vol] 165 mg/dL Critically high 74-[address] [facility] Comment on above: Performed By: #### M G, TSH, CMP ####[facility] [address] [address]Dr. Ronnie Pennington Potassium [Moles/Vol] 4.3 mmol/L Normal 3.5-5.1 [facility] Comment on above: Performed By: #### M G, TSH, CMP ####[facility] [address] [place], [place] [address]Dr. Ronnie Pennington Protein [Mass/Vol] 6.7 g/dL Normal 6.4-8.2 [facility] Comment on above: Performed By: #### M G, TSH, CMP ####[facility] [address] [place], [place] [address]Dr. Ronnie Pennington Sodium [Moles/Vol] 138 mmol/L Normal 136-145 [facility] Comment on above: Performed By: #### M G, TSH, CMP ####[facility] [address] [place], [place] [address]Dr. Ronnie Pennington Urea nitrogen [Mass/Vol] 33.0 mg/dL Critically high 7.0-18.0 [facility] Comment on above: Performed By: #### M G, TSH, CMP ####[facility] [address] [place], [place] [address]Dr. Ronnie Pennington Urea nitrogen/Creatinine [Mass ratio] 15.8 mg/mg Normal [facility] Comment on above: Performed By: #### M G, TSH, CMP ####[facility] [address] [place], [place] [address]Dr. Ronnie Gorge TSHon 07-24-2022 TSH 2.763 uIU/mL Normal 0.358-3.74 0 [facility] Comment on above: Performed By: #### M G, TSH, CMP ####[facility] [address] [address]Dr. Ronnie Pennington FK506 (TACROLIMUS) WHOLE BLO ODon 07-15-2022 Tacrolimus (FK506), Blood 9.4 ng/mL Normal 2.0-20.0 [facility] Comment on above: Result Comment: Trou gh (immediately following transplant) 15.0 . Trough (steady state, 2 weeks or more after transplant): 3.0 - 8.0 . Performed by LC-MS/MS technology. Performed By: #### F [id number] #### [facility] [address] [place] [address] Dr. Ronnie Pennington CBC AUTO DIFFon 07-13-2022 BASO # 0.0 103/ul Normal 0.0-0.1 [facility] Comment on above: Performed By: #### C BC #### [facility] [address] [place] [address] Dr. Ronnie Pennington Basophils/100 WBC (Bld) 0.3 % Normal 0.2-2.[address] [facility] Comment on above: Performed By: #### C BC #### [facility] [address] [place] [address] Dr. Ronnie Pennington EO # 0.2 103/ul Normal 0.0-0.7 [facility] Comment on above: Performed By: #### C BC #### [facility] [address] [place] [address] Dr. Ronnie Pennington Eosinophils/100 WBC (Bld) 2.5 % Normal 0.9-7.0 [facility] Comment on above: Performed By: #### C BC #### [facility] [address] [place] [address] Dr. Ronnie Pennington Erythrocyte distribution width (RBC) [Ratio] 13.1 % Normal 11.0-15.0 [facility] Comment on above: Performed By: #### C BC #### [facility] [address] [place] [address] Dr. Ronnie Pennington Hematocrit (Bld) [Volume fraction] 33.4 % Critically low 42.0-54.0 [facility] Comment on above: Performed By: #### C BC #### [facility] [address] [place] [address] Dr. Ronnie Pennington Hemoglobin (Bld) [Mass/Vol] 10.4 g/dL Critically low 14.0-18.0 [facility] Comment on above: Performed By: #### C BC #### [facility] [address] [address] [address] Ronnie Pennington IG # 0.04 10e3/ul Critically high 0.00-0.03 [facility] Comment on above: Performed By: #### C BC #### [facility] [address] [place] [address] Dr. Ronnie Pennington IG % 0.6 % Critically high 0.0-0.5 [facility] Comment on above: Performed By: #### C BC #### [facility] [address] [place] [address] Dr. Ronnie Pennington LYMPH # 1.2 103/ul Normal 1.2-3.8 [facility] Comment on above: Performed By: #### C BC #### [facility] [address] [place] [address] Dr. Ronnie Pennington Lymphocytes/100 WBC (Bld) 16.8 % Critically low 20.5-60.0 [facility] Comment on above: Performed By: #### C BC #### [facility] [address] [place] [address] Dr. Ronnie Pennington MANUAL DIFF REQ NO Normal [facility] Comment on above: Performed By: #### C BC #### [facility] [address] [place] [address] Dr. Ronnie Pennington MCH (RBC) [Entitic mass] 28.5 pg Normal 25.9-34.0 [facility] Comment on above: Performed By: #### C BC #### [facility] [address] [place] [address] Dr. Ronnie Pennington MCHC (RBC) [Mass/Vol] 31.1 g/dL Normal 29.9-35.2 [facility] Comment on above: Performed By: #### C BC #### [facility] [address] [place] [address] Dr. Ronnie Pennington MCV (RBC) [Entitic vol] 91.5 fL Normal 80.0-94.[address] [facility] Comment on above: Performed By: #### C BC #### [facility] [address] [place] [address] Dr. Ronnie Pennington MONO # 0.5 103/ul Normal 0.3-0.8 [facility] Comment on above: Performed By: #### C BC #### [facility] [address] [place] [address] Dr. Ronnie Pennington Monocytes/100 WBC (Bld) 7.5 % Normal 1.7-12.[address] [facility] Comment on above: Performed By: #### C BC #### [facility] [address] [place] [address] Dr. Ronnie Pennington NEUT # 5.0 103/ul Normal 1.4-6.5 [facility] Comment on above: Performed By: #### C BC #### [facility] [address] [place] [address] Dr. Ronnie Pennington Neutrophils/100 WBC (Bld) 72.3 % Normal 43.0-75.0 [facility] Comment on above: Performed By: #### C BC #### [facility] [address] [place] [address] Dr. Ronnie Pennington Platelet mean volume (Bld) [Entitic vol] 11.8 fL Normal 9.5-13.5 [facility] Comment on above: Performed By: #### C BC #### [facility] [address] [place] [address] Dr. Ronnie Pennington PLT 126 103/ul Critically low 150-450 [facility] Comment on above: Performed By: #### C BC #### [facility] [address] [place] [address] Dr. Ronnie Pennington RBC 3.65 106/ul Critically low 4.70-6.10 [facility] Comment on above: Performed By: #### C BC #### [facility] [address] [address] [address] Ronnie Pennington WBC 6.9 103/ul Normal 4.0-11.0 [facility] Comment on above: Performed By: #### C BC #### [facility] [address] [address] [address] Ronnie Pennington MAGNESIUMon 07-13-2022 Magnesium [Mass/Vol] 2.1 mg/dL Normal 1.8-2.4 [facility] Comment on above: Performed By: #### C MP, MG #### [facility] [address] [address] [address] Ronnie Pennington Office Visit (Cardiology)on 07-13-2022 Follow-up visit Patient Instructions -Please bring a list of your medications to every appointment. -We will schedule you a follow up appointment in # months. We will call you with this date. -If you have any questions, please do not hesitate to contact our office at [phone]. For after hours issues, please call [phone]. Chief Complaint OLIVERIO ESCOBEDO is being seen [...] TabletTake 1 tablet twice daily MiraLax Mix-In [place] 17 GM Oral PacketMIX 1 PACKET in [...] Albumin [Mass/Vol] 2.9 g/dL Critically low 3.4-5.0 [facility] Comment on above: Performed By: #### C MP, MG #### [facility] [address] [place] [address] Dr. Ronnie Pennington Albumin/Globulin [Mass ratio] 0.7 {ratio} Normal [facility] Comment on above: Performed By: #### C MP, MG #### [facility] [address] [place] [address] Dr. Ronnie Pennington ALP [Catalytic activity/Vol] 71 U/L Normal 46-116 [facility] Comment on above: Performed By: #### C MP, MG #### [facility] [address] [place] [address] Dr. Ronnie Pennington ALT [Catalytic activity/Vol] 12 U/L Critically low 16-63 [facility] Comment on above: Performed By: #### C MP, MG #### [facility] [address] [place] [address] Dr. Ronnie Pennington Anion gap [Moles/Vol] 15.1 mmol/L Normal [facility] Comment on above: Performed By: #### C MP, MG #### [facility] [address] [place] [address] Dr. Ronnie Pennington AST [Catalytic activity/Vol] 11 U/L Critically low 15-37 [facility] Comment on above: Performed By: #### C MP, MG #### [facility] [address] [place] [address] Dr. Ronnie Pennington Bilirubin [Mass/Vol] 0.2 mg/dL Normal 0.2-1.0 [facility] Comment on above: Performed By: #### C MP, MG #### [facility] [address] [place] [address] Dr. Ronnie Pennington Calcium [Mass/Vol] 9.2 mg/dL Normal 8.5-10.1 [facility] Comment on above: Performed By: #### C MP, MG #### [facility] [address] [place] [address] Dr. Ronnie Pennington Chloride [Moles/Vol] 105 mmol/L Normal 98-107 [facility] Comment on above: Performed By: #### C MP, MG #### [facility] [address] [place] [address] Dr. Ronnie Pennington CO2 [Moles/Vol] 28.1 mmol/L Normal 21.0-32.0 [facility] Comment on above: Performed By: #### C MP, MG #### [facility] [address] [place] [address] Dr. Ronnie Pennington Creatinine [Mass/Vol] 2.14 mg/dL Critically high 0.70-1.30 [facility] Comment on above: Performed By: #### C MP, MG #### [facility] [address] [place] [address] Dr. Ronnie Pennington EGFR-AF [place] 36 mL/min/1.73m2 Critically low >=60 [facility] Comment on above: Performed By: #### C MP, MG #### [facility] [address] [place] [address] Dr. Ronnie Pennington EGFR-NON AF [place] 30 mL/min/1.73m2 Critically low >=60 [facility] Comment on above: Performed By: #### C MP, MG #### [facility] [address] [place] [address] Dr. Ronnie Pennington Globulin (S) [Mass/Vol] 4.0 g/dL Normal [facility] Comment on above: Performed By: #### C MP, MG #### [facility] [address] [place] [address] Dr. Ronnie Pennington Glucose [Mass/Vol] 150 mg/dL Critically high 74-[address] [facility] Comment on above: Performed By: #### C MP, MG #### [facility] [address] [place] [address] Dr. Ronnie Pennington Potassium [Moles/Vol] 4.2 mmol/L Normal 3.5-5.1 [facility] Comment on above: Performed By: #### C MP, MG #### [facility] [address] [address] [address] Ronnie Pennington Protein [Mass/Vol] 6.9 g/dL Normal 6.4-8.2 [facility] Comment on above: Performed By: #### C MP, MG #### [facility] [address] [address] [address] Ronnie Pennington Sodium [Moles/Vol] 144 mmol/L Normal 136-145 [facility] Comment on above: Performed By: #### C MP, MG #### [facility] [address] [address] [address] Ronnie Pennington Urea nitrogen [Mass/Vol] 32.0 mg/dL Critically high 7.0-18.0 [facility] Comment on above: Performed By: #### C MP, MG #### [facility] [address] [address] [address] Ronnie Pennington Urea nitrogen/Creatinine [Mass ratio] 15.0 mg/mg Normal [facility] Comment on above: Performed By: #### C MP, MG #### [facility] [address] [address] [address] Ronnie Pennington Transplant SW Assessment Upd [...] Jul 15 2022 12:57PM EST (Author) Normal [facility] Consultation Noteon 06-10-19 Consultation Note [id number] Normal [facility] TSHon 06-05-2022 TSH 3.293 uIU/mL Normal 0.358-3.74 0 [facility] Comment on above: Performed By: #### T SH #### [facility] [address] [address] [address] Ronnie Pennington Cult,Woundon 04-19-2022 Cult,Wound Specimen [...] Tetracycline <=1 SUSCEPTIBLE Trimethoprim/Sulfa <=10 SUSCEPTIBLE Susceptible [facility] Comment on above: Performed By: #### W MT #### [facility] [address] [place] [address] Dye Range Operator: David Gonzalez MD PROF CHEM 8 ([facility])on Anion gap [Moles/Vol] 14.9 mmol/L Normal [facility] Comment on above: Performed By: #### B MP #### [facility] [address] [address] [address] Ronnie Pennington Calcium [Mass/Vol] 8.8 mg/dL Normal 8.5-10.1 [facility] Comment on above: Performed By: #### B MP #### [facility] [address] [address] [address] Ronnie Pennington Chloride [Moles/Vol] 104 mmol/L Normal 98-107 [facility] Comment on above: Performed By: #### B MP #### [facility] [address] [address] [address] Ronnie Pennington CO2 [Moles/Vol] 26.6 mmol/L Normal 21.0-32.0 [facility] Comment on above: Performed By: #### B MP #### [facility] [address] [address] [address] Ronnie Pennington Creatinine [Mass/Vol] 2.03 mg/dL Critically high 0.70-1.30 [facility] Comment on above: Performed By: #### B MP #### [facility] [address] [address] [address] Ronnie Pennington EGFR-AF [place] 39 mL/min/1.73m2 Critically low >=60 [facility] Comment on above: Performed By: #### B MP #### [facility] [address] [address] [address] Ronnie Pennington EGFR-NON AF [place] 32 mL/min/1.73m2 Critically low >=60 [facility] Comment on above: Performed By: #### B MP #### [facility] [address] [address] [address] Ronnie Pennington Glucose [Mass/Vol] 209 mg/dL Critically high 74-106 [facility] Comment on above: Performed By: #### B MP #### [facility] [address] [address] [address] Ronnie Pennington Potassium [Moles/Vol] 4.5 mmol/L Normal 3.5-5.1 [facility] Comment on above: Performed By: #### B MP #### [facility] [address] [address] [address] Ronnie Pennington Sodium [Moles/Vol] 141 mmol/L Normal 136-145 [facility] Comment on above: Performed By: #### B MP #### [facility] [address] [address] [address] Ronnie Pennington Urea nitrogen [Mass/Vol] 26.0 mg/dL Critically high 7.0-18.0 [facility] Comment on above: Performed By: #### B MP #### [facility] [address] [address] [address] Ronnie Pennington Urea nitrogen/Creatinine [Mass ratio] 12.8 mg/mg Normal [facility] Comment on above: Performed By: #### B MP #### [facility] [address] [address] [address] Ronnie Pennington Office Visit (Cardiology)on 10-15-2021 [...] JARON NESS Date: 2021-08-05 15:10 Normal [facility] CBC AND DIFFERENTIALon 07-13 % AUTOMATED IMMATURE [...] Performed By: #### C BCDF #### [address] [address] Basophils (Bld) [#/Vol] 0.02 10*3/uL Normal 0.00 - 0.10 [facility] [place] [facility] Comment on above: Performed By: #### C BCDF #### [address] [address] Basophils/100 WBC (Bld) 0.3 % Normal 0.0 - 2.0 [facility] Comment on above: Performed By: #### C BCDF #### [address] [address] Eosinophils (Bld) [#/Vol] 0.07 10*3/uL Normal 0.00 - 0.40 [facility] [place] Comment on above: Performed By: #### C BCDF #### [address] [address] Eosinophils/100 WBC (Bld) 0.9 % Normal 0.0 - 6.0 [facility] [place] Comment on above: Performed By: #### C BCDF #### [address] [address] Erythrocyte distribution width (RBC) [Ratio] 14.4 % Normal 11.5 - 14.5 [facility] [place] Comment on above: Performed By: #### C BCDF #### [address] [address] Hematocrit (Bld) [Volume fraction] 35.5 % Low 41.0 - 52.0 [facility] [place] Comment on above: Performed By: #### C BCDF #### [address] [address] Hemoglobin (Bld) [Mass/Vol] 10.8 g/dL Low 13.5 - 17.5 [facility] [place] Comment on above: Performed By: #### C BCDF #### [address] [address] Lymphocytes (Bld) [#/Vol] 0.42 10*3/uL Low 0.80 - 3.00 [facility] [place] Comment on above: Performed By: #### C BCDF #### [address] [address] Lymphocytes/100 WBC (Bld) 5.6 % Normal 13.0 - 44.0 [facility] [place] Comment on above: Performed By: #### C BCDF #### [address] [address] MCHC (RBC) [Mass/Vol] 30.4 g/dL Low 32.0 - 36.0 [facility] [place] Comment on above: Performed By: #### C BCDF #### [address] [address] MCV (RBC) [Entitic vol] 89 fL Normal 80 - 100 [facility] Comment on above: Performed By: #### C BCDF #### [address] [address] Monocytes (Bld) [#/Vol] 0.07 10*3/uL Normal 0.05 - 0.80 [facility] [place] Comment on above: Performed By: #### C BCDF #### [address] [address] Monocytes/100 WBC (Bld) 0.9 % Normal 2.0 - 10.0 [facility] Comment on above: Performed By: #### C BCDF #### [address] [place] [address] Neutrophils (Bld) [#/Vol] 6.82 10*3/uL High 1.60 - 5.50 [facility] [place] Comment on above: Performed By: #### C BCDF #### [address] [address] Neutrophils/100 WBC (Bld) 91.8 % Normal 40.0 - 80.0 [facility] [place] Comment on above: Performed By: #### C BCDF #### [address] [address] NUCLEATED RBC 0.0 /100 WBC Normal 0.0 - 0.0 [facility] [place] Comment on above: Performed By: #### C BCDF #### [address] [address] Platelets (Bld) [#/Vol] 161 10*3/uL Normal 150 - 450 [facility] [place] Comment on above: Performed By: #### C BCDF #### [address] [address] RBC 3.98 x10E12/L Low 4.50 - 5.90 [facility] [place] Comment on above: Performed By: #### C BCDF #### [address] [address] WBC (Bld) [#/Vol] 7.4 10*3/uL Normal 4.4 - 11.3 [facility] Comment on above: Performed By: #### C BCDF #### [address] [address] Complete Blood Count + Diffe rentialon 07-13-2021 Basophils/100 WBC (Bld) 0.3 % 0.0 - 2.0 [facility] [address] [place] Work Phone: Erythrocyte distribution width (RBC) [Ratio] 14.4 % See Below [facility] [address] [place] Work Phone: Comment on above: Reference Range: 11. 5 - 14.5 Hematocrit (Bld) [Volume fraction] 35.5 % below low threshold See Below [facility] [address] [place] Work Phone: Comment on above: Reference Range: 41. 0 - 52.0 Hemoglobin (Bld) [Mass/Vol] 10.8 g/dL below low threshold See Below [facility] [address] [place] Work Phone: Comment on above: Reference Range: 13. 5 - 17.5 Lymphocytes/100 WBC (Bld) 5.6 % See Below [facility] [address] [place] Work Phone: Comment on [...] % 2.0 - 10.0 [facility] [address] [place] Work Phone: Neutrophils/100 WBC (Bld) 91.8 % See Below [facility] [address] [place] Work Phone: Comment on above: Reference Range: 40. 0 - 80.0 Platelets (Bld) [#/Vol] 161 10*3/uL 150 - 450 [facility] [address] [place] Work Phone: RBC (Bld) [#/Vol] 3.98 {x10E12/L} below low threshold See Below [facility] [address] [place] Work Phone: Comment on above: Reference Range: 4.5 0 - 5.90 WBC (Bld) [#/Vol] 7.4 10*3/uL 4.4 - 11.3 [facility] [address] [place] Work Phone: Complete Blood Count + Differential 0.02 {x10E9/L} See Below [facility] [address] [place] Work Phone: Comment on above: Reference Range: 0.0 0 - 0.10 Complete Blood Count + Differential 0.07 {x10E9/L} See Below [facility] [address] [place] Work Phone: Comment on above: Reference Range: 0.0 0 - 0.40 Reference Range: 0.0 5 - 0.80 Complete Blood Count + Differential 0.42 {x10E9/L} below low threshold See Below [facility] [address] [place] Work Phone: Comment on above: Reference Range: 0.8 0 - 3.00 Complete Blood Count + Differential 6.82 {x10E9/L} above high threshold See Below [facility] [address] [place] Work Phone: Comment on above: Reference Range: 1.6 0 - 5.50 Complete Blood Count + Differential 0.9 % 0.0 - 6.0 [facility] [address] [place] Work Phone: Complete Blood Count + Differential 0.5 % 0.0 - 0.9 [facility] [employer] [place] Work Phone: Comment on above: Immature Granulocyte Count (IG) includes promyelocytes, myelocytes and metamyelocytes but does not include bands. Percent differential counts (%) should be interpreted in the context of the absolute cell counts (cells/L). Complete Blood Count + Differential 0.0 {/100_WBC} 0.0 - 0.0 [facility] [address] [place] Work Phone: Coronavirus 2019 RNA by PCR, Symptomaticon 07-03-2021 Date and time of symptom onset [id number] [facility] [address] [place] Work Phone: Coronavirus 2019 RNA by PCR, Symptomatic Not detected Normal See Below [facility] [address] [place] Work Phone: Comment on above: SOURCE: Nasal, Nasop haryngealReference Range: Not Detected.This test has received FDA Emergency Use Authorization (EUA) and has been verified by [facility] ([facility]). This test is only authorized for the duration of time that circumstances exist to justify the authorization of the emergency use of in vitro diagnostic tests for the detection of SARS-CoV-2 virus and/or diagnosis of COVID-19 infection under section 564(b)(1) of the Act, 21 U.S.C. 360bbb-3(b)(1), unless the authorization is terminated or revoked sooner. [facility] is certified under CLIA-88 as qualified to perform high complexity testing. Testing is performed in the [facility] located at [address] [place] [address].SARS-CoV-2/Flu/RSV Multiplex Test: Fact sheet for providers: https://www.fda.gov/media/739055/downloadFact sheet for patients: https://www.fda.gov/media/483898/download Laboratory - Chemistry and C hemistry - challengeon 07-03-2021 Glucose [Mass/Vol] 330 mg/dL above high threshold 74 - 99 [facility] [address] [place] Work Phone: Glucose [Mass/Vol] 277 mg/dL above high threshold 74 - 99 [facility] [address] [place] Work Phone: Anion gap [Moles/Vol] 15 mmol/L 10 - 20 [facility] [address] [place] Work Phone: Calcium [Mass/Vol] [...] high threshold 74 - 99 [facility] [address] [place] Work Phone: Potassium [Moles/Vol] 3.9 mmol/L 3.5 - 5.3 [facility] [address] [place] Work Phone: [phone] Sodium [Moles/Vol] 138 mmol/L 136 - 145 [facility] [address] [place] Work Phone: [phone] Urea nitrogen [Mass/Vol] 35 mg/dL above high [...] below low threshold See Below [facility] [address] [place] Work Phone: Comment on above: Reference Range: 32. 0 - 36.0 MCV (RBC) [Entitic vol] 89 fL 80 - 100 [facility] [address] [place] Work Phone: Platelets (Bld) [#/Vol] 171 10*3/uL 150 - 450 [facility] [address] [place] Work Phone: RBC (Bld) [#/Vol] 3.94 {x10E12/L} below low threshold See Below [facility] [address] [place] Work Phone: Comment on above: Reference Range: 4.5 0 - 5.90 WBC (Bld) [#/Vol] 6.0 10*3/uL 4.4 - 11.3 [facility] [address] [place] Work Phone: No Panel Informationon 07-03 38 {mL/min/1.73m2} Abnormal >90 [facility] [address] [place] Work Phone: Comment on above: CALCULATIONS OF ERNST MATED GFR ARE PERFORMED USING THE 2020 CKD-EPI STUDY REFIT EQUATION WITHOUT THE RACE VARIABLE FOR THE IDMS-TRACEABLE CREATININE METHODS.https://jasn.asnjournals.org/content/early// ASN.0555527651 0.0 {/100_WBC} 0.0-0.0 [facility] [address] [place] Work Phone: Tacrolimuson 07-03-2021 Tacrolimus (Bld) [Mass/Vol] 5.5 ng/mL 2.0 - 15.0 [facility] [address] [place] Work Phone: Comment on above: NOTE: Result was obt ained using a chemiluminescent microparticle immunoassay (CMIA) on the [employer] i system.Optimal therapeutic ranges for immuno-suppressant drugs [...] high threshold 74 - 99 [facility] [address] [place] Work Phone: [phone] Glucose [Mass/Vol] 286 mg/dL above high threshold 74 - 99 [facility] [address] [place] Work Phone: [phone] Glucose [Mass/Vol] 269 mg/dL above high threshold 74 - 99 [facility] [address] [place] Work Phone: [phone] Anion gap [Moles/Vol] 15 mmol/L 10 - 20 [facility] [address] [place] Work Phone: [phone] Calcium [Mass/Vol] 9.1 mg/dL 8.6 - 10.6 [facility] [address] [place] Work Phone: [phone] Chloride [Moles/Vol] 102 mmol/L 98 - 107 [facility] [address] [place] Work Phone: [phone] CO2 [Moles/Vol] 27 mmol/L 21 - 32 [facility] [address] [place] Work Phone: [phone] Creatinine [Mass/Vol] 1.97 mg/dL above high threshold See Below [facility] [address] [place] Work Phone: Comment on above: Reference Range: 0.5 0 - 1.30 Glucose [Mass/Vol] 197 mg/dL above high threshold 74 - 99 [facility] [address] [place] Work Phone: Potassium [Moles/Vol] 4.1 mmol/L 3.5 - 5.3 [facility] [address] [place] Work Phone: Sodium [Moles/Vol] 140 mmol/L 136 - 145 [facility] [address] [place] Work Phone: [phone] Urea nitrogen [Mass/Vol] 41 mg/dL above high threshold 6 - 23 [facility] [address] [place] Work Phone: [phone] Glucose [Mass/Vol] 201 mg/dL above high threshold 74 - 99 [facility] [address] [place] Work Phone: Laboratory - Hematology and Cell countson 07-02-2021 Erythrocyte distribution width (RBC) [Ratio] 14.1 % See Below [facility] [address] [place] Work Phone: [phone] Comment on above: Reference Range: 11. 5 [...] below low threshold See Below [facility] [address] [place] Work Phone: Comment on above: Reference Range: 32. 0 - 36.0 MCV (RBC) [Entitic vol] 88 fL 80 - 100 [facility] [address] [place] Work Phone: Platelets (Bld) [#/Vol] 160 10*3/uL 150 - 450 [facility] [address] [place] Work Phone: RBC (Bld) [#/Vol] 3.82 {x10E12/L} below low threshold See Below [facility] [address] [place] Work Phone: Comment on [...] RACE VARIABLE FOR THE IDMS-TRACEABLE CREATININE METHODS.https://jasn.asnjournals.org/content/early// ASN.7856164870 0.0 {/100_WBC} 0.0-0.0 [facility] [address] [place] Work Phone: Tacrolimuson 07-02-2021 Tacrolimus (Bld) [Mass/Vol] 7.6 ng/mL 2.0 - 15.0 [facility] [address] [place] Work Phone: Comment on above: NOTE: Result was obt ained using a chemiluminescent microparticle immunoassay (CMIA) on the [employer] i system.Optimal therapeutic ranges for immuno-suppressant drugs [...] [Mass fraction] 8.4 % Abnormal [facility] [address] [place] Work Phone: Comment on above: Diagnosis of Diabete s-Adults Non-Diabetic: < or = 5.6% Increased risk for developing diabetes: 5.7-6.4% Diagnostic of diabetes: > or = 6.5%. Monitoring of Diabetes Age (y) Therapeutic Goal (%) Adults: >18 <7.0 Pediatrics: 13-18 <7.5 7-12 <8.0 0- 6 7.5-8.5 [place] [employer]. Diabetes Care 33(S1), Mar 2009. Laboratory - Chemistry and C hemistry - challengeon 07-01-2021 Glucose [Mass/Vol] 188 mg/dL above high threshold 74 - 99 [facility] [address] [place] Work Phone: Glucose [Mass/Vol] 258 mg/dL above high threshold 74 - 99 [facility] [address] [place] Work Phone: Glucose [Mass/Vol] 321 mg/dL above high threshold 74 - 99 [facility] [address] [place] Work Phone: Anion gap [Moles/Vol] 16 mmol/L 10 - 20 [facility] [address] [place] Work Phone: Calcium [Mass/Vol] 8.8 mg/dL 8.6 - 10.6 [facility] [address] [place] Work Phone: Chloride [Moles/Vol] 100 mmol/L 98 - 107 [facility] [address] [place] Work Phone: CO2 [Moles/Vol] 29 mmol/L 21 - 32 [facility] [address] [place] Work Phone: Creatinine [Mass/Vol] [...] mmol/L 3.5 - 5.3 [facility] [address] [place] Work Phone: Sodium [Moles/Vol] 141 mmol/L 136 - 145 [facility] [address] [place] Work Phone: Urea nitrogen [Mass/Vol] 38 mg/dL above high threshold 6 - 23 [facility] [address] [place] Work Phone: Laboratory - Hematology and Cell countson 07-01-2021 Erythrocyte distribution width (RBC) [Ratio] 14.1 % See Below [facility] [address] [place] Work Phone: Comment on above: Reference Range: 11. 5 - 14.5 Hematocrit (Bld) [Volume fraction] 34.6 % below low threshold See Below [facility] [address] [place] Work Phone: Comment on above: Reference Range: 41. 0 - 52.0 Hemoglobin (Bld) [Mass/Vol] 10.7 g/dL below low threshold See Below [facility] [address] [place] Work Phone: Comment on [...] below low threshold See Below [facility] [address] [place] Work Phone: Comment on above: Reference Range: 4.5 0 - 5.90 WBC (Bld) [#/Vol] 6.8 10*3/uL 4.4 - 11.3 [facility] [address] [place] Work Phone: No Panel Informationon 07-01 34 {mL/min/1.73m2} Abnormal >90 [facility] [address] [place] Work Phone: Comment on above: CALCULATIONS OF ERNST MATED GFR ARE PERFORMED USING THE 2020 CKD-EPI STUDY REFIT EQUATION WITHOUT THE RACE VARIABLE FOR THE IDMS-TRACEABLE CREATININE METHODS.https://jasn.asnjournals.org/content// ASN.4478213341 0.0 {/100_WBC} 0.0-0.0 [facility] [address] [place] Work Phone: Tacrolimuson 07-01-2021 Tacrolimus (Bld) [Mass/Vol] 9.3 ng/mL 2.0 - 15.0 [facility] [address] [place] Work Phone: Comment on above: NOTE: Result was obt ained using a chemiluminescent microparticle immunoassay (CMIA) on the [employer] i system.Optimal therapeutic ranges for immuno-suppressant drugs [...] high threshold 74 - 99 [facility] [address] [place] Work Phone: [phone] Glucose [Mass/Vol] 267 mg/dL above high threshold 74 - 99 [facility] [address] [place] Work Phone: [phone] Glucose [Mass/Vol] 289 mg/dL above high threshold 74 - 99 [facility] [address] [place] Work Phone: [phone] Glucose [Mass/Vol] 236 mg/dL above high threshold 74 - 99 [facility] [address] [place] Work Phone: [phone] Anion gap [Moles/Vol] 17 mmol/L 10 - 20 [facility] [address] [place] Work Phone: [phone] Calcium [Mass/Vol] 8.6 mg/dL 8.6 - 10.6 [facility] [address] [place] Work Phone: [phone] Chloride [Moles/Vol] 100 mmol/L 98 - 107 [facility] [address] [place] Work Phone: [phone] CO2 [Moles/Vol] 28 mmol/L 21 - 32 [facility] [address] [place] Work Phone: [phone] Creatinine [Mass/Vol] 2.26 mg/dL above high threshold See Below [facility] [address] [place] Work Phone: [phone] Comment on above: Reference Range: 0.5 0 - 1.30 Glucose [Mass/Vol] 205 mg/dL above high threshold 74 - 99 [facility] [address] [place] Work Phone: [phone] Potassium [Moles/Vol] 3.8 mmol/L 3.5 - 5.3 [facility] [address] [place] Work Phone: Sodium [Moles/Vol] 141 mmol/L 136 - 145 [facility] [address] [place] Work Phone: Urea nitrogen [Mass/Vol] 39 mg/dL above high threshold 6 - 23 [facility] [address] [place] Work Phone: Laboratory - Hematology and Cell countson 06-30-2021 Erythrocyte distribution width (RBC) [Ratio] 14.3 % See Below [facility] [address] [place] Work Phone: Comment on above: Reference Range: 11. 5 - 14.5 Hematocrit (Bld) [Volume fraction] 33.5 % below low threshold See Below [facility] [address] [place] Work Phone: Comment on above: Reference Range: 41. 0 - 52.0 Hemoglobin (Bld) [Mass/Vol] 10.5 g/dL below low threshold See Below [facility] [address] [place] Work Phone: Comment on above: Reference Range: 13. 5 - 17.5 MCHC (RBC) [Mass/Vol] 31.3 g/dL below low threshold See Below [facility] [address] [place] Work Phone: Comment on above: Reference Range: 32. 0 - 36.0 MCV (RBC) [Entitic vol] 91 fL 80 - 100 [facility] [address] [place] Work Phone: Platelets (Bld) [#/Vol] 141 10*3/uL below lo w threshold 150 - 450 [facility] [address] [place] Work Phone: RBC (Bld) [#/Vol] 3.70 {x10E12/L} below low threshold See Below [facility] [address] [place] Work Phone: Comment on above: Reference Range: 4.5 0 - 5.90 WBC (Bld) [#/Vol] 8.2 10*3/uL 4.4 - 11.3 [facility] [address] [place] Work Phone: No Panel Informationon 06-30 29 {mL/min/1.73m2} Abnormal >90 [facility] [address] [place] Work Phone: Comment on above: CALCULATIONS OF ERNST MATED GFR ARE PERFORMED USING THE 2020 CKD-EPI STUDY REFIT EQUATION WITHOUT THE RACE VARIABLE FOR THE IDMS-TRACEABLE CREATININE METHODS.https://jasn.asnjournals.org/content/early/ ASN.2222305674 0.0 {/100_WBC} 0.0-0.0 [facility] [address] [place] Work Phone: Tacrolimuson 06-30-2021 Tacrolimus (Bld) [Mass/Vol] 7.7 ng/mL 2.0 - 15.0 [facility] [address] [place] Work Phone: Comment on above: NOTE: Result was obt ained using a chemiluminescent microparticle immunoassay (CMIA) on the [employer] system.Optimal therapeutic ranges for immuno-suppressant drugs [...] high threshold 74 - 99 [facility] [address] [place] Work Phone: [phone] Glucose [Mass/Vol] 283 mg/dL above high threshold 74 - 99 [facility] [address] [place] Work Phone: [phone] Anion gap [Moles/Vol] 16 mmol/L 10 - 20 [facility] [address] [place] Work Phone: [phone] Calcium [Mass/Vol] 8.7 mg/dL 8.6 - 10.6 [facility] [address] [place] Work Phone: [phone] Chloride [Moles/Vol] 104 mmol/L 98 - 107 [facility] [address] [place] Work Phone: [phone] CO2 [Moles/Vol] 28 mmol/L 21 - 32 [facility] [address] [place] Work Phone: [phone] Creatinine [Mass/Vol] 1.97 mg/dL above high threshold See Below [facility] [address] [place] Work Phone: [phone] Comment on above: Reference Range: 0.5 0 - 1.30 Glucose [Mass/Vol] 185 mg/dL above high threshold 74 - 99 [facility] [address] [place] Work Phone: [phone] Potassium [Moles/Vol] 3.9 mmol/L 3.5 - 5.3 [facility] [address] [place] Work Phone: [phone] Sodium [Moles/Vol] 144 mmol/L 136 - 145 [facility] [address] [place] Work Phone: [phone] Urea nitrogen [Mass/Vol] 35 mg/dL above high threshold 6 - 23 [facility] [address] [place] Work Phone: [phone] Glucose [Mass/Vol] 186 mg/dL above high threshold 74 - 99 [facility] [address] [place] Work Phone: [phone] Laboratory - Hematology and Cell countson 06-29-2021 Erythrocyte distribution width (RBC) [Ratio] 14.3 % See Below [facility] [address] [place] Work Phone: Comment on above: Reference Range: 11. 5 - 14.5 Hematocrit (Bld) [Volume fraction] 35.8 % below low threshold See Below [facility] [address] [place] Work Phone: Comment on above: Reference Range: 41. 0 - 52.0 Hemoglobin (Bld) [Mass/Vol] 11.0 g/dL below low threshold See Below [facility] [address] [place] Work Phone: Comment on above: Reference Range: 13. 5 - 17.5 MCHC (RBC) [Mass/Vol] 30.7 g/dL below low threshold See Below [facility] [address] [place] Work Phone: Comment on above: Reference Range: 32. 0 - 36.0 MCV (RBC) [Entitic vol] 90 fL 80 - 100 [facility] [address] [place] Work Phone: Platelets (Bld) [#/Vol] 142 10*3/uL below lo w threshold 150 - 450 [facility] [address] [place] Work Phone: RBC (Bld) [#/Vol] 3.96 {x10E12/L} below low threshold See Below [facility] [address] [place] Work Phone: Comment on above: Reference Range: 4.5 0 - 5.90 WBC (Bld) [#/Vol] 7.0 10*3/uL 4.4 - 11.3 [facility] [address] [place] Work Phone: Magnesium, Serumon [...] RACE VARIABLE FOR THE IDMS-TRACEABLE CREATININE METHODS.https://jasn.asnjournals.org/content/early// ASN.6594711578 0.0 {/100_WBC} 0.0-0.0 [facility] [address] [place] Work Phone: Tacrolimuson 06-29-2021 Tacrolimus (Bld) [Mass/Vol] 8.4 ng/mL 2.0 - 15.0 [facility] [address] [place] Work Phone: Comment on above: NOTE: Result was obt ained using a chemiluminescent microparticle immunoassay (CMIA) on the [employer] system.Optimal therapeutic ranges for immuno-suppressant drugs [...] high threshold 74 - 99 [facility] [address] [place] Work Phone: Glucose [Mass/Vol] 239 mg/dL above high threshold 74 - 99 [facility] [address] [place] Work Phone: Glucose [Mass/Vol] 215 mg/dL above high threshold 74 - 99 [facility] [address] [place] Work Phone: Anion gap [Moles/Vol] 14 mmol/L 10 - 20 [facility] [address] [place] Work Phone: Calcium [Mass/Vol] 8.5 mg/dL below low threshold 8.6 - 10.6 [facility] [address] [place] Work Phone: Chloride [Moles/Vol] 105 mmol/L 98 - 107 [facility] [address] [place] Work Phone: [phone] CO2 [Moles/Vol] 29 mmol/L 21 - 32 [facility] [address] [place] Work Phone: [phone] Creatinine [Mass/Vol] 1.96 mg/dL above high threshold See Below [facility] [address] [place] Work Phone: Comment on above: Reference Range: 0.5 0 - 1.30 Glucose [Mass/Vol] 159 mg/dL above high threshold 74 - 99 [facility] [address] [place] Work Phone: [phone] Potassium [Moles/Vol] 3.8 mmol/L 3.5 - 5.3 [facility] [address] [place] Work Phone: [phone] Sodium [Moles/Vol] 144 mmol/L 136 - 145 [facility] [address] [place] Work Phone: Urea nitrogen [Mass/Vol] 36 mg/dL above high threshold 6 - 23 [facility] [address] [place] Work Phone: Glucose [Mass/Vol] 159 mg/dL above high threshold 74 - 99 [facility] [address] [place] Work Phone: Laboratory - Hematology and Cell countson 06-28-2021 Erythrocyte distribution width (RBC) [Ratio] 14.3 % See Below [facility] [address] [place] Work Phone: Comment on above: Reference Range: 11. 5 - 14.5 Hematocrit (Bld) [Volume fraction] 33.8 % below low threshold See Below [facility] [address] [place] Work Phone: Comment on above: Reference Range: 41. 0 - 52.0 Hemoglobin (Bld) [Mass/Vol] 10.4 g/dL below low threshold See Below [facility] [address] [place] Work Phone: Comment on above: Reference Range: 13. 5 - 17.5 MCHC (RBC) [Mass/Vol] 30.8 g/dL below low threshold See Below [facility] [address] [place] Work Phone: Comment on above: Reference Range: 32. 0 - 36.0 MCV (RBC) [Entitic vol] 90 fL 80 - 100 [facility] [address] [place] Work Phone: Platelets (Bld) [#/Vol] 133 10*3/uL below lo w threshold 150 - 450 [facility] [address] [place] Work Phone: RBC (Bld) [#/Vol] 3.75 {x10E12/L} below low threshold See Below [facility] [address] [place] Work Phone: Comment on above: Reference Range: 4.5 0 - 5.90 WBC (Bld) [#/Vol] 5.7 10*3/uL 4.4 - 11.3 [facility] [address] [place] Work Phone: Lactate, Levelon 06-28-2021 Lactate [Moles/Vol] 0.6 mmol/L 0.4 - 2.0 [facility] [address] [place] Work Phone: Comment on above: [...] RACE VARIABLE FOR THE IDMS-TRACEABLE CREATININE METHODS.https://jasn.asnjournals.org/content/early/ ASN.1210975517 0.0 {/100_WBC} 0.0-0.0 [facility] [address] [place] Work Phone: Tacrolimuson 06-28-2021 Tacrolimus (Bld) [Mass/Vol] 10.4 ng/mL 2.0 - 15.0 [facility] [address] [place] Work Phone: Comment on above: NOTE: Result was obt ained using a chemiluminescent microparticle immunoassay (CMIA) on the [employer] system.Optimal therapeutic ranges for immuno-suppressant drugs depend upon an individualpatient's current clinical state, type oforgan transplant, time post-transplant,co-administration of other immunosuppressants,and other clinical factors. The results ofthis test should be correlated with additionalclinical and laboratory data before changesin treatment regimens are made. Complete Blood Count + Diffe rentialon 06-27-2021 Basophils/100 WBC (Bld) 0.5 % 0.0 - 2.0 [facility] [address] [place] Work Phone: Erythrocyte distribution [...] below low threshold See Below [facility] [address] [place] Work Phone: Comment on above: Reference Range: 13. 5 - 17.5 Lymphocytes/100 WBC (Bld) 13.1 % See Below [facility] [address] [place] Work Phone: Comment on above: [...] 2.0 - 10.0 [facility] [address] [place] Work Phone: Neutrophils/100 WBC (Bld) 72.5 % See Below [facility] [address] [place] Work Phone: Comment on above: Reference Range: 40. 0 - 80.0 Platelets (Bld) [#/Vol] 137 10*3/uL below lo w threshold 150 - 450 [facility] [address] [place] Work Phone: RBC (Bld) [#/Vol] 3.67 {x10E12/L} below low threshold See Below [facility] [address] [place] Work Phone: Comment on above: Reference Range: 4.5 0 - 5.90 WBC (Bld) [#/Vol] 6.4 10*3/uL 4.4 - 11.3 [facility] [place] Work Phone: Complete Blood Count + Differential 0.03 {x10E9/L} See Below [facility] [address] [place] Work Phone: Comment on above: Reference Range: 0.0 0 - 0.10 Complete Blood Count + Differential 0.28 {x10E9/L} See Below [facility] [address] [place] Work Phone: Comment on above: Reference Range: 0.0 0 - 0.40 Complete Blood Count + Differential 0.57 {x10E9/L} See Below [facility] [address] [place] Work Phone: Comment on above: Reference Range: 0.0 5 - 0.80 Complete Blood Count + Differential 0.83 {x10E9/L} See Below [facility] [address] [place] Work Phone: Comment on above: Reference Range: 0.8 0 - 3.00 Complete Blood Count + Differential 4.61 {x10E9/L} See Below [facility] [address] [place] Work Phone: Comment on above: Reference Range: 1.6 0 - 5.50 Complete Blood Count + Differential 4.4 % 0.0 - 6.0 [facility] [address] [place] Work Phone: Complete Blood Count + Differential 0.5 % 0.0 - 0.9 [facility] [address] [place] Work Phone: Comment on above: Immature Granulocyte Count (IG) includes promyelocytes, myelocytes and metamyelocytes but does not include bands. Percent differential counts (%) should be interpreted in the context of the absolute cell counts (cells/L). Complete Blood Count + Differential 0.0 {/100_WBC} 0.0-0.0 [facility] [address] [place] Work Phone: Glucose Glucometer (dC) [M ass/Vol]Ordered By: Yoshi Wu on 06-27-2021 Glucose [Mass/Vol] 263 mg/dL [facility] Comment on above: Random Glucose Refer ence Range is dependent on time and content of last meal. Glucose of more than 200 mg/dL in a nonstressed, ambulatory subject supports the diagnosis of Diabetes Mellitus. Laboratory - Chemistry and C hemistry - challengeon 06-27-2021 Albumin BCP dye [Mass/Vol] 3.4 g/dL 3.4 - 5.0 [facility] [address] [place] Work Phone: ALP [Catalytic [...] 10 U/L 9 - 39 [facility] [address] [place] Work Phone: Bilirubin [Mass/Vol] 0.3 mg/dL 0.0 - 1.2 [facility] [address] [place] Work Phone: Calcium [Mass/Vol] 8.3 mg/dL below low threshold 8.6 - 10.6 [facility] [address] [place] Work Phone: Chloride [Moles/Vol] [...] low threshold 6.4 - 8.2 [facility] [address] [place] Work Phone: Sodium [Moles/Vol] [...] high threshold 74 - 99 [facility] [address] [place] Work Phone: No Panel Informationon 06-27 37 {mL/min/1.73m2} Abnormal >90 [facility] [address] [place] Work Phone: Comment on above: CALCULATIONS OF ERNST MATED GFR ARE PERFORMED USING THE 2020 CKD-EPI STUDY REFIT EQUATION WITHOUT THE RACE VARIABLE FOR THE IDMS-TRACEABLE CREATININE METHODS.https://jasn.asnjournals.org/content// ASN.8612224944 No Panel InformationOrdered By: Yoshi Wu on 06-27-2021 Bedside Glucose Comment Glu2: cleaned meter [facility] Automated erythrocytes count in urine sediment (number/area)Ordered By: Audra Quinteros on 06-26-2021 RBC Auto (Urine sed) [#/Area] 0-1 [HPF] [facility] Automated leukocytes count i n urine sediment (number/area)Ordered By: Audra Quinteros on 06-26-2021 WBC Auto (Urine sed) [#/Area] 0-1 [HPF] [facility] Bilirubin Test strip Ql (U)O rdered By: Audra Quinteros on 06-26-2021 Bilirubin Ql (U) Negative Negative [facility] COVID-19 Positive/NegativeOr dered By: Omid Myrick on 06-26-2021 SARS-CoV-2 (COVID-19) N gene JOYCE+probe Ql (Resp) Negative Negative [facility] Comment on above: Testing for SARS-CoV -2 by RT-PCRThis test was developed and its performance characteristics determined by [employer]) and validated at the [facility]. This test has not been FDA cleared [...] Yellow Yellow [facility] Creatinine [Mass/volume] in UrineOrdered By: Audra Quinteros on 06-26-2021 Creatinine (U) [Mass/Vol] 71.5 mg/dL [facility] Comment on above: No reference range e stablished Creatinine and Glomerular fi ltration rate.predicted panel (S/P/Bld)Ordered By: Audra Quinteros on 06-26-2021 Creatinine [Mass/Vol] 1.99 mg/dL 0.64-1.27 [facility] Estimated glomerular filtrat ion rate (GFR) non- AmericanOrdered By: Audra Quinteros on 06-26-2021 GFR/1.73 sq M.predicted among non-blacks MDRD (S/P/Bld) [Vol rate/Area] 33 mL/Min [facility] Ketones Auto test strip (U) [Mass/Vol]Ordered By: Audra Quinteros on 06-26-2021 Ketones (U) [Mass/Vol] Negative Negative [facility] Laboratory - Microbiology an d Antimicrobial susceptibilityOrdered By: Omid Myrick on 06-26-2021 SARS-CoV-2 (COVID-19) RNA JOYCE+probe Ql (Unsp spec) N/A [facility] Laboratory - UrinalysisOrder ed By: Audra Quinteros on 06-26-2021 Hyaline casts LM Ql (Urine sed) 0-8 [LPF] [facility] Nitrite Test strip Ql (U)Ord ered By: Audra Quinteros on 06-26-2021 Nitrite Ql (U) Negative Negative [facility] No Panel InformationOrdered By: Audra Quinteros on 06-26-2021 Estimated GFR () 40 mL/Min [facility] Comment on above: GFR estimated refere nce range: According to KDOQI guidelines, <60 ml/min/1.73m2 is sufficient to diagnose a patient with chronic kidney disease. Pharmacy Creatinine Clearance (Chem 39.80 [facility] Protein Auto test strip (U) [Mass/Vol]Ordered By: Audra Quinteros on 06-26-2021 Protein (U) [Mass/Vol] 300 mg/dL Negative [facility] Serum or plasma calcium abhijit urement (mass/volume)Ordered By: Audra Quinteros on 06-26-2021 Calcium [Mass/Vol] 8.9 mg/dL 8.2-10.2 [facility] Serum or plasma chloride marylin surement (moles/volume)Ordered By: Audra Quinteros on 06-26-2021 Chloride [Moles/Vol] 105 mmol/L 95-114 [facility] Serum or plasma glucose abhijit urement (mass/volume)Ordered By: Audra Quinteros on 06-26-2021 Glucose [Mass/Vol] 194 mg/dL 70-100 [facility] Comment on above: ADA recommended refe rence rangeRandom Glucose Reference Range is dependent on time and content of last meal. Glucose of more than 200 mg/dL in a nonstressed, ambulatory subject supports the diagnosis of Diabetes Mellitus. Serum or plasma potassium me asurement (moles/volume)Ordered By: Omid Myrick on 06-26-2021 Potassium [Moles/Vol] 4.0 mmol/L 3.5-5.1 [facility] Serum or plasma sodium measu rement (moles/volume)Ordered By: Audra Quinteros on 06-26-2021 Sodium [Moles/Vol] 140 mmol/L 136-146 [facility] Serum or plasma total carbon dioxide measurement (moles/volume)Ordered By: Audra Quinteros on 06-26-2021 CO2 [Moles/Vol] 23.8 mmol/L 22.0-30.0 [facility] Serum or plasma urea nitroge n measurement (mass/volume)Ordered By: Audra Quinteros on 06-26-2021 Urea nitrogen [Mass/Vol] 39 mg/dL 9-23 [facility] Specific gravity Auto test s trip (U) [Rel density]Ordered By: Audra Quinteros on 06-26-2021 Specific gravity (U) [Rel density] 1.015 1.001-1.03 0 [facility] Squamous epithelial cells de tection in urine sediment by light microscopyOrdered By: Audra Quinteros on 06-26-2021 Epithelial cells.squamous LM Ql (Urine sed) None seen [HPF] [facility] Urine bacteria detection by automated methodOrdered By: Audra Quinteros on 06-26-2021 Bacteria Auto Ql (U) None seen None Seen [facility] Urine clarity by refractomet ry automatedOrdered By: Audra Quinteros on 06-26-2021 Clarity Refractometry automated (U) Clear Clear [facility] Urine glucose measurement by automated test strip (mass/volume)Ordered By: Audra Quinteros on 06-26-2021 Glucose Auto test strip (U) [Mass/Vol] Normal mg/dL Normal [facility] Urine hemoglobin detection b y automated test stripOrdered By: Audra Quinteros on 06-26-2021 Hemoglobin Auto test strip Ql (U) Negative Negative [facility] Urine leukocyte esterase det ection by automated test stripOrdered By: Audra Quinteros on 06-26-2021 Leukocyte esterase Auto test strip Ql (U) Negative Negative [facility] Urine sodium measurement (mo les/volume)Ordered By: Audra Quinteros on 06-26-2021 Sodium (U) [Moles/Vol] 94 mmol/L [facility] Comment on above: No reference range e stablished Urobilinogen Auto test strip (U) [Mass/Vol]Ordered By: Audra Quinteros on 06-26-2021 Urobilinogen (U) [Mass/Vol] Normal mg/dL Normal [facility] pH Auto test strip (U)Ordere d By: Audra Quinteros on 06-26-2021 pH (U) 5.5 [pH] 5.0-9.0 [facility] Activated partial thrombopla stin time (aPTT) in platelet poor plasma by coagulation aOrdered By: Andrew Hernández on 06-25-2021 aPTT Coag (PPP) [Time] 33.4 s 25.1-36.5 [facility] Albumin [Mass/volume] in Ser um or PlasmaOrdered By: Andrew Hernández on 06-25-2021 Albumin [Mass/Vol] 3.4 g/dL 3.2-5.5 [facility] Basophils Auto (Bld) [#/Vol] Ordered By: Andrew Hernández on 06-25-2021 Basophils (Bld) [#/Vol] 0.0 10*3/uL 0.0-0.2 [facility] Basophils/100 WBC Auto (Bld) Ordered By: Andrew Hernández on 06-25-2021 Basophils/100 WBC (Bld) 0.6 % [facility] Blood hemoglobin measurement (mass/volume)Ordered By: Andrew Hernández on 06-25-2021 Hemoglobin (Bld) [Mass/Vol] 11.8 g/dL 13.0-17.0 [facility] Blood leukocytes automated c ount (number/volume)Ordered By: Andrew Hernández on 06-25-2021 WBC (Bld) [#/Vol] 7.5 10*3/uL 4.5-11.0 [facility] COVID-19 SOFIAOrdered By: Prasanna Hernández on 06-25-2021 SARS-CoV+SARS-CoV-2 (COVID-19) Ag IA.rapid Ql (Resp) Negative Negative [facility] Comment on above: This is a duplicate Jessi SARS Antigen (GABI) result to be used for statistical tracking purpose only. Creatinine and Glomerular fi ltration rate.predicted panel (S/P/Bld)Ordered By: Andrew Hernández on 06-25-2021 Creatinine [Mass/Vol] 2.25 mg/dL 0.64-1.27 [facility] Eosinophils Auto (Bld) [#/Vo l]Ordered By: Andrew Hernández on 06-25-2021 Eosinophils (Bld) [#/Vol] 0.3 10*3/uL 0.0-0.45 [facility] Eosinophils/100 WBC Auto (Bl d)Ordered By: Andrew Hernández on 06-25-2021 Eosinophils/100 WBC (Bld) 4.6 % [facility] Erythrocyte distribution wid th Auto (RBC) [Ratio]Ordered By: Andrew Hernández on 06-25-2021 Erythrocyte distribution width (RBC) [Ratio] 16.1 % 12.0-14.8 [facility] Erythrocyte sedimentation ra te by Photometric methodOrdered By: Andrew Hernández on 06-25-2021 ESR Photometric method (Bld) [Velocity] 39 mm/hr 0-19 [facility] Estimated glomerular filtrat ion rate (GFR) non- AmericanOrdered By: Andrew Hernández on 06-25-2021 GFR/1.73 sq M.predicted among non-blacks MDRD (S/P/Bld) [Vol rate/Area] 28 mL/Min [facility] Globulin Calc (S) [Mass/Vol] Ordered By: Andrew Hernández on 06-25-2021 Globulin (S) [Mass/Vol] 3.2 g/dL [facility] Hematocrit Auto (Bld) [Volum e fraction]Ordered By: Andrew Hernández on 06-25-2021 Hematocrit (Bld) [Volume fraction] 36.2 % 38.8-50.0 [facility] Laboratory - Chemistry and C hemistry - challengeOrdered By: Andrew Hernández on 06-25-2021 Natriuretic peptide B (Bld) [Mass/Vol] 165.0 pg/mL 5-100 [facility] Laboratory - CoagulationOrde red By: Andrew Hernández on 06-25-2021 PT Coag (PPP) [Time] 11.9 s 9.0-12.9 [facility] Laboratory - Hematology and Cell countsOrdered By: Andrew Hernández on 06-25-2021 Nucleated RBC/100 WBC (Bld) [Ratio] 0.1 % 0-0.5 [facility] Lymphocytes Auto (Bld) [#/Vo l]Ordered By: Andrew Hernández on 06-25-2021 Lymphocytes (Bld) [#/Vol] 1.0 10*3/uL 1.00-4.8 [facility] Lymphocytes/100 WBC Auto (Bl d)Ordered By: Andrew Hernández on 06-25-2021 Lymphocytes/100 WBC (Bld) 12.9 % [facility] MCH Auto (RBC) [Entitic mass ]Ordered By: Andrew Hernández on 06-25-2021 MCH (RBC) [Entitic mass] 28.1 pg 27.5-35.2 [facility] MCHC Auto (RBC) [Mass/Vol]Or dered By: Andrew Hernández on 06-25-2021 MCHC (RBC) [Mass/Vol] 32.7 g/dL 32.5-35.6 [facility] MCV Auto (RBC) [Entitic vol] Ordered By: Andrew Hernández on 06-25-2021 MCV (RBC) [Entitic vol] 86.0 fL 83.5-101 [facility] [facility] Monocytes Auto (Bld) [#/Vol] Ordered By: Andrew Hernández on 06-25-2021 Monocytes (Bld) [#/Vol] 0.5 10*3/uL 0.0-0.8 [facility] Monocytes/100 WBC Auto (Bld) Ordered By: Andrew Hernández on 06-25-2021 Monocytes/100 WBC (Bld) 7.3 % F [facility] Neutrophils Auto (Bld) [#/Vo l]Ordered By: Andrew Hernández on 06-25-2021 Neutrophils (Bld) [#/Vol] 5.6 10*3/uL 1.8-7.7 [facility] Neutrophils/100 WBC Auto (Bl d)Ordered By: Andrew Hernández on 06-25-2021 Neutrophils/100 WBC (Bld) 74.6 % [facility] No Panel InformationOrdered By: Andrew Hernández on 06-25-2021 SARS Antigen (LFIA) [facility] Estimated GFR () 34 mL/Min [facility] Comment on above: GFR estimated refere nce range: According to KDOQI guidelines, <60 ml/min/1.73m2 is sufficient to diagnose a patient with chronic kidney disease. Pharmacy Creatinine Clearance (Chem 365.00 [facility] Platelet mean volume Auto (B ld) [Entitic vol]Ordered By: Andrew Hernández on 06-25-2021 Platelet mean volume (Bld) [Entitic vol] 10.0 fL 6.6-10.1 [facility] Platelet poor plasma interna tional normalized ratio (INR) by coagulation assay (relatOrdered By: Andrew Hernández on 06-25-2021 INR Coag (PPP) [Relative time] 1.1 {INR} [facility] Comment on above: INR Therapeutic Rang e [...] 10*3/uL 150-450 [facility] Comment on above: Delta: 119 on 0453 Protein [Mass/volume] in Ser um or PlasmaOrdered By: Andrew Hernández on 06-25-2021 Protein [Mass/Vol] 6.6 g/dL 6.1-7.9 [facility] RBC Auto (Bld) [#/Vol]Ordere d By: Andrew Hernández on 06-25-2021 RBC (Bld) [#/Vol] 4.21 10*6/uL 3.90-5.60 [facility] Serum or plasma C reactive p rotein measurement (mass/volume)Ordered By: Andrew Hernández on 06-25-2021 CRP [Mass/Vol] 0.9 mg/dL 0.0-1.0 [facility] Serum or plasma alanine lopez otransferase measurement without P-5'-P (enzymatic activiOrdered By: Andrew Hernández on 06-25-2021 ALT No additional P-5'-P [Catalytic activity/Vol] 13 U/L 10-60 [facility] Serum or plasma albumin/glob ulin mass ratioOrdered By: Andrew Hernández on 06-25-2021 Albumin/Globulin [Mass ratio] 1.1 {ratio} [facility] Serum or plasma alkaline cande sphatase measurement (enzymatic activity/volume)Ordered By: Andrew Hernández on 06-25-2021 ALP [Catalytic activity/Vol] 57 U/L 32-92 [facility] Serum or plasma aspartate am inotransferase measurement (enzymatic activity/volume)Ordered By: Andrew Hernández on 06-25-2021 AST [Catalytic activity/Vol] 15 U/L 10-42 [facility] Serum or plasma calcium abhijit urement (mass/volume)Ordered By: Andrew Hernández on 06-25-2021 Calcium [Mass/Vol] 9.2 mg/dL 8.2-10.2 [facility] Serum or plasma chloride marylin surement (moles/volume)Ordered By: Andrew Hernández on 06-25-2021 Chloride [Moles/Vol] 106 mmol/L 95-114 [facility] Serum or plasma glucose abhijit urement (mass/volume)Ordered By: Andrew Hernández on 06-25-2021 Glucose [Mass/Vol] 177 mg/dL 70-100 [facility] Comment on above: ADA recommended refe rence rangeRandom Glucose Reference Range is dependent on time and content of last meal. Glucose of more than 200 mg/dL in a nonstressed, ambulatory subject supports the diagnosis of Diabetes Mellitus. Serum or plasma potassium me asurement (moles/volume)Ordered By: Andrew Hernández on 06-25-2021 Potassium [Moles/Vol] 4.2 mmol/L 3.5-5.1 [facility] Serum or plasma sodium measu rement (moles/volume)Ordered By: Andrew Hernández on 06-25-2021 Sodium [Moles/Vol] 142 mmol/L 136-146 [facility] Serum or plasma total biliru bin measurement (mass/volume)Ordered By: Andrew Hernández on 06-25-2021 Bilirubin [Mass/Vol] 0.4 mg/dL 0.3-1.2 [facility] Serum or plasma total carbon dioxide measurement (moles/volume)Ordered By: Andrew Hernández on 06-25-2021 CO2 [Moles/Vol] 24.1 mmol/L 22.0-30.0 [facility] Serum or plasma urea nitroge n measurement (mass/volume)Ordered By: Andrew Hernández on 06-25-2021 Urea nitrogen [Mass/Vol] 41 mg/dL 9-23 [facility] Troponin I.cardiac [Mass/vol ume] in Serum or Plasma by High sensitivity methodOrdered By: Andrew Hernández on 06-25-2021 Troponin I.cardiac High sensitivity method [Mass/Vol] 12 pg/mL 0-20 [facility] Albumin [Mass/volume] in Ser um or PlasmaOrdered By: Julee Davies on 06-24-2021 Albumin [Mass/Vol] 2.9 g/dL 3.2-5.5 [facility] Basophils Auto (Bld) [#/Vol] Ordered By: Julee Davies on 06-24-2021 Basophils (Bld) [#/Vol] 0.0 10*3/uL 0.0-0.2 [facility] Basophils/100 WBC Auto (Bld) Ordered By: Julee Davies on 06-24-2021 Basophils/100 WBC (Bld) 0.6 % [facility] Blood hemoglobin measurement (mass/volume)Ordered By: Julee Davies on 06-24-2021 Hemoglobin (Bld) [Mass/Vol] 10.8 g/dL 13.0-17.0 [facility] Blood leukocytes automated c ount (number/volume)Ordered By: Julee Davies on 06-24-2021 WBC (Bld) [#/Vol] 6.6 10*3/uL 4.5-11.0 [facility] Creatinine and Glomerular fi ltration rate.predicted panel (S/P/Bld)Ordered By: Julee Davies on 06-24-2021 Creatinine [Mass/Vol] 2.17 mg/dL 0.64-1.27 [facility] Eosinophils Auto (Bld) [#/Vo l]Ordered By: Julee Davies on 06-24-2021 Eosinophils (Bld) [#/Vol] 0.3 10*3/uL 0.0-0.45 [facility] Eosinophils/100 WBC Auto (Bl d)Ordered By: Julee Davies on 06-24-2021 Eosinophils/100 WBC (Bld) 5.2 % [facility] Erythrocyte distribution wid th Auto (RBC) [Ratio]Ordered By: Julee Davies on 06-24-2021 Erythrocyte distribution width (RBC) [Ratio] 15.8 % 12.0-14.8 [facility] Estimated glomerular filtrat ion rate (GFR) non- AmericanOrdered By: Julee Davies on 06-24-2021 GFR/1.73 sq M.predicted among non-blacks MDRD (S/P/Bld) [Vol rate/Area] 30 mL/Min [facility] Globulin Calc (S) [Mass/Vol] Ordered By: Julee Davies on 06-24-2021 Globulin (S) [Mass/Vol] 2.4 g/dL F [facility] Hematocrit Auto (Bld) [Volum e fraction]Ordered By: Julee Davies on 06-24-2021 Hematocrit (Bld) [Volume fraction] 33.0 % 38.8-50.0 [facility] Laboratory - Chemistry and C hemistry - challengeOrdered By: Julee Davies on 06-24-2021 Magnesium [Mass/Vol] 1.9 mg/dL 1.6-2.6 [facility] Natriuretic peptide B (Bld) [Mass/Vol] 224.0 pg/mL 5-100 [facility] Laboratory - Hematology and Cell countsOrdered By: Julee Davies on 06-24-2021 Nucleated RBC/100 WBC (Bld) [Ratio] 0.1 % 0-0.5 [facility] Lymphocytes Auto (Bld) [#/Vo l]Ordered By: Julee Davies on 06-24-2021 Lymphocytes (Bld) [#/Vol] 0.8 10*3/uL 1.00-4.8 [facility] Lymphocytes/100 WBC Auto (Bl d)Ordered By: Julee Davies on 06-24-2021 Lymphocytes/100 WBC (Bld) 11.4 % [facility] MCH Auto (RBC) [Entitic mass ]Ordered By: Julee Davies on 06-24-2021 MCH (RBC) [Entitic mass] 27.7 pg 27.5-35.2 [facility] MCHC Auto (RBC) [Mass/Vol]Or dered By: Julee Davies on 06-24-2021 MCHC (RBC) [Mass/Vol] 32.7 g/dL 32.5-35.6 [facility] MCV Auto (RBC) [Entitic vol] Ordered By: Julee Davies on 06-24-2021 MCV (RBC) [Entitic vol] 84.6 fL 83.5-101 F [facility] Monocytes Auto (Bld) [#/Vol] Ordered By: Julee Davies on 06-24-2021 Monocytes (Bld) [#/Vol] 0.5 10*3/uL 0.0-0.8 [facility] Monocytes/100 WBC Auto (Bld) Ordered By: Julee Davies on 06-24-2021 Monocytes/100 WBC (Bld) 7.4 % F [facility] Neutrophils Auto (Bld) [#/Vo l]Ordered By: Julee Davies on 06-24-2021 Neutrophils (Bld) [#/Vol] 5.0 10*3/uL 1.8-7.7 [facility] Neutrophils/100 WBC Auto (Bl d)Ordered By: Julee Davies on 06-24-2021 Neutrophils/100 WBC (Bld) 75.4 % [facility] No Panel InformationOrdered By: Julee Davies on 06-24-2021 Estimated GFR () 36 mL/Min [facility] Comment on above: GFR estimated refere nce range: According to KDOQI guidelines, <60 ml/min/1.73m2 is sufficient to diagnose a patient with chronic kidney disease. Pharmacy Creatinine Clearance (Chem N/A [facility] Platelet mean volume Auto (B ld) [Entitic vol]Ordered By: Julee Davies on 06-24-2021 Platelet mean volume (Bld) [Entitic vol] 9.8 fL 6.6-10.1 [facility] Platelets Auto (Bld) [#/Vol] Ordered By: Julee Davies on 06-24-2021 Platelets (Bld) [#/Vol] 119 10*3/uL 150-450 [facility] Protein [Mass/volume] in Ser um or PlasmaOrdered By: Julee Davies on 06-24-2021 Protein [Mass/Vol] 5.3 g/dL 6.1-7.9 [facility] RBC Auto (Bld) [#/Vol]Ordere d By: Julee Davies on 06-24-2021 RBC (Bld) [#/Vol] 3.90 10*6/uL 3.90-5.60 [facility] Serum or plasma alanine lopez otransferase measurement without P-5'-P (enzymatic activiOrdered By: Julee Davies on 06-24-2021 ALT No additional P-5'-P [Catalytic activity/Vol] 7 U/L 10-60 [facility] Serum or plasma albumin/glob ulin mass ratioOrdered By: Julee Davies on 06-24-2021 Albumin/Globulin [Mass ratio] 1.2 {ratio} [facility] Serum or plasma alkaline cande sphatase measurement (enzymatic activity/volume)Ordered By: Julee Davies on 06-24-2021 ALP [Catalytic activity/Vol] 56 U/L 32-92 [facility] Serum or plasma aspartate am inotransferase measurement (enzymatic activity/volume)Ordered By: Julee Davies on 06-24-2021 AST [Catalytic activity/Vol] 13 U/L 10-42 [facility] Serum or plasma calcium abhijit urement (mass/volume)Ordered By: Julee Davies on 06-24-2021 Calcium [Mass/Vol] 8.9 mg/dL 8.2-10.2 [facility] Serum or plasma chloride marylin surement (moles/volume)Ordered By: Julee Davies on 06-24-2021 Chloride [Moles/Vol] 109 mmol/L 95-114 [facility] Serum or plasma glucose abhijit urement (mass/volume)Ordered By: Julee Davies on 06-24-2021 Glucose [Mass/Vol] 160 mg/dL 70-100 [facility] Comment on above: ADA recommended refe rence rangeRandom Glucose Reference Range is dependent on time and content of last meal. Glucose of more than 200 mg/dL in a nonstressed, ambulatory subject supports the diagnosis of Diabetes Mellitus. Serum or plasma potassium me asurement (moles/volume)Ordered By: Julee Davies on 06-24-2021 Potassium [Moles/Vol] 4.1 mmol/L 3.5-5.1 [facility] Serum or plasma sodium measu rement (moles/volume)Ordered By: Julee Davies on 06-24-2021 Sodium [Moles/Vol] 144 mmol/L 136-146 [facility] Serum or plasma total biliru bin measurement (mass/volume)Ordered By: Julee Davies on 06-24-2021 Bilirubin [Mass/Vol] 0.5 mg/dL 0.3-1.2 [facility] Serum or plasma total carbon dioxide measurement (moles/volume)Ordered By: Julee Davies on 06-24-2021 CO2 [Moles/Vol] 25.7 mmol/L 22.0-30.0 [facility] Serum or plasma urea nitroge n measurement (mass/volume)Ordered By: Julee Davies on 06-24-2021 Urea nitrogen [Mass/Vol] 43 mg/dL 9-23 [facility] Tacrolimus [Mass/volume] in BloodOrdered By: Julee Davies on 06-24-2021 Tacrolimus (Bld) [Mass/Vol] 8.1 ng/mL [facility] Comment on above: This test was vane christine and its performance characteristicsdetermined by [employer]. It has not been cleared orapproved by the Food and Drug Administration. Trough (immediately following transplant) 15.0 Trough (steady state, 2 weeks or more after transplant): 3.0 - 8.0 Performed by LC-MS/MS technology.Performed at: [address] [id number] Director: Mynor Nixon MD, Phone: [phone] Albumin [Mass/volume] in Ser um or PlasmaOrdered By: Julee Davies on 05-27-2021 Albumin [Mass/Vol] 3.1 g/dL 3.2-5.5 [facility] Basophils Auto (Bld) [#/Vol] Ordered By: Julee Davies on 05-27-2021 Basophils (Bld) [#/Vol] 0.0 10*3/uL 0.0-0.2 [facility] Basophils/100 WBC Auto (Bld) Ordered By: Julee Davies on 05-27-2021 Basophils/100 WBC (Bld) 0.7 % F [facility] Blood hemoglobin measurement (mass/volume)Ordered By: Julee Davies on 05-27-2021 Hemoglobin (Bld) [Mass/Vol] 11.4 g/dL 13.0-17.0 [facility] Blood leukocytes automated c ount (number/volume)Ordered By: Julee Davies on 05-27-2021 WBC (Bld) [#/Vol] 6.1 10*3/uL 4.5-11.0 [facility] Cholesterol [Mass/volume] in Serum or PlasmaOrdered By: Julee Davies on 05-27-2021 Cholesterol [Mass/Vol] 129 mg/dL 140-200 [facility] Comment on above: Chol less than 200 m g/dl low riskChol 201-239 mg/dl borderline riskChol 240 mg/dl and greater high risk Cholesterol in LDL Calc [Mas s/Vol]Ordered By: Julee Davies on 03-08-2022 Cholesterol in LDL [Mass/Vol] 67 mg/dL 0-100 [facility] Comment on above: LDL ATP III CLASSIFI CATIONLDL less than 100 mg/dL OptimalLDL 100-129 mg/dL Near or above optimalLDL 130-159 mg/dL Borderline highLDL 160-189 mg/dL HighLDL greater than 189 mg/dL Very high Cholesterol in VLDL Calc [Ma ss/Vol]Ordered By: Julee Davies on 05-27-2021 Cholesterol in VLDL [Mass/Vol] 27 mg/dL [facility] Creatinine and Glomerular fi ltration rate.predicted panel (S/P/Bld)Ordered By: Julee Davies on 05-27-2021 Creatinine [Mass/Vol] 1.86 mg/dL 0.64-1.27 [facility] Eosinophils Auto (Bld) [#/Vo l]Ordered By: Julee Davies on 05-27-2021 Eosinophils (Bld) [#/Vol] 0.2 10*3/uL 0.0-0.45 [facility] Eosinophils/100 WBC Auto (Bl d)Ordered By: Julee Davies on 05-27-2021 Eosinophils/100 WBC (Bld) 3.7 % [facility] Erythrocyte distribution wid th Auto (RBC) [Ratio]Ordered By: Julee Davies on 05-27-2021 Erythrocyte distribution width (RBC) [Ratio] 14.9 % 12.0-14.8 [facility] Estimated glomerular filtrat ion rate (GFR) non- AmericanOrdered By: Julee Davies on 05-27-2021 GFR/1.73 sq M.predicted among non-blacks MDRD (S/P/Bld) [Vol rate/Area] 35 mL/Min [facility] Globulin Calc (S) [Mass/Vol] Ordered By: Julee Davies on 05-27-2021 Globulin (S) [Mass/Vol] 2.9 g/dL F [facility] Glucose mean value [Mass/vol ume] in Blood Estimated from glycated hemoglobinOrdered By: Julee Davies on 05-27-2021 Average glucose Estimated from glycated hemoglobin (Bld) [Mass/Vol] 209 mg/dL [facility] Hematocrit Auto (Bld) [Volum e fraction]Ordered By: Julee Davies on 05-27-2021 Hematocrit (Bld) [Volume fraction] 34.1 % 38.8-50.0 [facility] Hemoglobin A1c percentageOrd ered By: Julee Davies on 05-27-2021 HbA1c (Bld) [Mass fraction] 8.9 % 4.3-5.6 [facility] Comment on above: Increased risk for d iabetes: 5.7 - 6.4diabetes: >6.4glycemic control for adults with diabetes: <7.0 Laboratory - Hematology and Cell countsOrdered By: Julee Davies on 05-27-2021 Nucleated RBC/100 WBC (Bld) [Ratio] 0.2 % 0-0.5 [facility] Lymphocytes Auto (Bld) [#/Vo l]Ordered By: Julee Davies on 05-27-2021 Lymphocytes (Bld) [#/Vol] 1.1 10*3/uL 1.00-4.8 [facility] Lymphocytes/100 WBC Auto (Bl d)Ordered By: Julee Davies on 05-27-2021 Lymphocytes/100 WBC (Bld) 17.9 % [facility] MCH Auto (RBC) [Entitic mass ]Ordered By: Julee Davies on 05-27-2021 MCH (RBC) [Entitic mass] 28.3 pg 27.5-35.2 [facility] MCHC Auto (RBC) [Mass/Vol]Or dered By: Julee Davies on 05-27-2021 MCHC (RBC) [Mass/Vol] 33.5 g/dL 32.5-35.6 [facility] MCV Auto (RBC) [Entitic vol] Ordered By: Julee Davies on 05-27-2021 MCV (RBC) [Entitic vol] 84.5 fL 83.5-101 F [facility] Monocytes Auto (Bld) [#/Vol] Ordered By: Julee Davies on 05-27-2021 Monocytes (Bld) [#/Vol] 0.5 10*3/uL 0.0-0.8 [facility] Monocytes/100 WBC Auto (Bld) Ordered By: Julee Davies on 05-27-2021 Monocytes/100 WBC (Bld) 7.9 % F [facility] Neutrophils Auto (Bld) [#/Vo l]Ordered By: Julee Davies on 05-27-2021 Neutrophils (Bld) [#/Vol] 4.3 10*3/uL 1.8-7.7 [facility] Neutrophils/100 WBC Auto (Bl d)Ordered By: Julee Davies on 05-27-2021 Neutrophils/100 WBC (Bld) 69.8 % [facility] No Panel InformationOrdered By: Julee Davies on 05-27-2021 25-Hydroxy Vitamin D Total 23.8 ng/mL 30-100 [facility] Comment on above: VITAMIN D STATUS 25( [place])VITAMIN D RANGE (ng/mL) Deficient <20 Insufficient 20 to <30Sufficient 30 to 100Reference: Ely MF,Brad NC, Kristy ORTEGA, et al. Evaluation,treatment, and prevention of vitamin D deficiency; an Endocrine Society clinical practice guideline. JCEM. 2010; 96(7):1911-30. Estimated GFR () 43 mL/Min [facility] Comment on above: GFR estimated refere nce range: According to KDOQI guidelines, <60 ml/min/1.73m2 is sufficient to diagnose a patient with chronic kidney disease. Pharmacy Creatinine Clearance (Chem N/A [facility] Platelet Estimate Decreased Normal [facility] Platelet Morphology Comment Normal Normal [facility] Platelet mean volume Auto (B ld) [Entitic vol]Ordered By: Julee Davies on 05-27-2021 Platelet mean volume (Bld) [Entitic vol] 10.6 fL 6.6-10.1 [facility] Platelets Auto (Bld) [#/Vol] Ordered By: Julee Davies on 05-27-2021 Platelets (Bld) [#/Vol] 129 10*3/uL 150-450 [facility] Protein [Mass/volume] in Ser um or PlasmaOrdered By: Julee Davies on 05-27-2021 Protein [Mass/Vol] 6.0 g/dL 6.1-7.9 [facility] RBC Auto (Bld) [#/Vol]Ordere d By: Julee Davies on 05-27-2021 RBC (Bld) [#/Vol] 4.03 10*6/uL 3.90-5.60 [facility] RBC morphologyOrdered By: Muarice Davies on 05-27-2021 RBC morphology finding Nom (Bld) Normal [facility] Serum or plasma alanine lopez otransferase measurement without P-5'-P (enzymatic activiOrdered By: Julee Davies on 05-27-2021 ALT No additional P-5'-P [Catalytic activity/Vol] 7 U/L 10-60 [facility] Serum or plasma albumin/glob ulin mass ratioOrdered By: Julee Davies on 05-27-2021 Albumin/Globulin [Mass ratio] 1.1 {ratio} [facility] Serum or plasma alkaline cande sphatase measurement (enzymatic activity/volume)Ordered By: Julee Davies on 05-27-2021 ALP [Catalytic activity/Vol] 52 U/L 32-92 [facility] Serum or plasma aspartate am inotransferase measurement (enzymatic activity/volume)Ordered By: Julee Davies on 05-27-2021 AST [Catalytic activity/Vol] 11 U/L 10-42 [facility] Serum or plasma calcium abhijit urement (mass/volume)Ordered By: Julee Davies on 05-27-2021 Calcium [Mass/Vol] 9.0 mg/dL 8.2-10.2 [facility] Serum or plasma chloride marylin surement (moles/volume)Ordered By: Julee Davies on 05-27-2021 Chloride [Moles/Vol] 104 mmol/L 95-114 [facility] Serum or plasma glucose abhijit urement (mass/volume)Ordered By: Julee Davies on 05-27-2021 Glucose [Mass/Vol] 183 mg/dL 70-100 [facility] Comment on above: ADA recommended refe [...] mg/dL 29-71 [facility] Comment on above: HDL CHOL ATP-III CLA SSIFICATION Cardiovascular RiskHDL > or equal to 60 mg/dL LOWHDL < 40 mg/dL HIGH Serum or plasma potassium me asurement (moles/volume)Ordered By: Julee Davies on 05-27-2021 Potassium [Moles/Vol] 4.1 mmol/L 3.5-5.1 [facility] Serum or plasma sodium measu rement (moles/volume)Ordered By: Julee Davies on 05-27-2021 Sodium [Moles/Vol] 140 mmol/L 136-146 [facility] Serum or plasma total biliru bin measurement (mass/volume)Ordered By: Julee Davies on 05-27-2021 Bilirubin [Mass/Vol] 0.4 mg/dL 0.3-1.2 [facility] Serum or plasma total carbon dioxide measurement (moles/volume)Ordered By: Julee Davies on 05-27-2021 CO2 [Moles/Vol] 26.1 mmol/L 22.0-30.0 [facility] Serum or plasma total choles terol/high density lipoprotein (HDL) cholesterol mass ratOrdered By: Julee Davies on 05-27-2021 Cholesterol.total/Denise sterol in HDL [Mass ratio] 3.7 {ratio} [facility] Serum or plasma urea nitroge n measurement (mass/volume)Ordered By: Julee Davies on 05-27-2021 Urea nitrogen [Mass/Vol] 38 mg/dL 9-23 [facility] TSH DL <= 0.005 mIU/L QnOrde red By: Julee Davies on 05-27-2021 TSH Qn 4.10 m[IU]/L 0.45-5.33 [facility] Triglyceride [Mass/volume] i n Serum or PlasmaOrdered By: Julee Davies on 05-27-2021 Triglyceride [Mass/Vol] 136 mg/dL 35-149 F [facility] Comment on above: TRIG ATP III CLASSIF ICATIONTRIG less than 150 mg/dL NormalTRIG 150-199 mg/dL Borderline highTRIG 200-500 mg/dL High TRIG greater than 500 mg/dL Very highStandard traceable to the Center for Disease Conrtrol and Prevention (CDC) test method. Coronavirus 2019 RNA by PCR, Screening Asymptomticon 12-24-2020 Date and time of symptom onset Canceled [facility]-Cardiomell berkowitz-[place] [facility] [address] DO Work Phone: Coronavirus 2019 RNA by PCR, Screening Asymptomtic Not detected Normal See Below [facility]-Cardiolo gy-Ellyn [facility] [address] DO Work Phone: Comment on above: SOURCE: Nasal, Nasop haryngealReference Range: Not Detected.This test has received FDA Emergency Use Authorization (EUA) and has been verified by [facility] ([facility]). This test is only authorized for the duration of time that circumstances exist to justify the authorization of the emergency use of in vitro diagnostic tests for the detection of SARS-CoV-2 virus and/or diagnosis of COVID-19 infection under section 564(b)(1) of the Act, 21 U.S.C. 360bbb-3(b)(1), unless the authorization is terminated or revoked sooner. [facility] is certified under CLIA-88 as qualified to perform high complexity testing. Testing is performed in the [facility] located at [address] [place] [address].SARS-CoV-2/Flu/RSV Multiplex Test: Fact sheet for providers: https://www.fda.gov/media/043223/downloadFact sheet for patients: https://www.fda.gov/media/665652/download Coronavirus 2019 RNA by PCR, Screening Asymptomtic Canceled [facility]-Cardiolo woo-[place]lyn [facility] [address] DO Work Phone: Comment on above: SOURCE: Nasal, Nasop haryngeal.This test has received FDA Emergency Use Authorization (EUA) and has been verified by [facility] ([facility]). This test is only authorized for the duration of time that circumstances exist to justify the authorization of the emergency use of in vitro diagnostic tests for the detection of SARS-CoV-2 virus and/or diagnosis of COVID-19 infection under section 564(b)(1) of the Act, 21 U.S.C. 360bbb-3(b)(1), unless the authorization is terminated or revoked sooner. [facility] is certified under CLIA-88 as qualified to perform high complexity testing. Testing is performed in the [facility] located at [address] [place] [address].SARS-CoV-2/Flu/RSV Multiplex Test: Fact sheet for providers: https://www.fda.gov/media/068400/downloadFact sheet for patients: https://www.fda.gov/media/612221/download Laboratory - Chemistry and C hemistry - [...] {x10E12/L} below low threshold See Below [facility] 260 DO Work Phone: Comment on above: Reference Range: 4.5 0 - 5.90 WBC (Bld) [#/Vol] 5.1 10*3/uL 4.4 - 11.3 [facility] 260 DO Work Phone: No Panel Informationon 12-24 Please click on the link to view the study images Normal [facility] 260 DO Work Phone: 0.0 {/100_WBC} 0.0-0.0 [facility] [facility] 260 DO Work Phone: Renal Function Panelon 12-24 Albumin BCP dye [Mass/Vol] 3.6 g/dL 3.4 - 5.0 [facility] 260 DO Work Phone: Anion gap [Moles/Vol] 15 mmol/L 10 - 20 [facility] [facility] 260 DO Work Phone: Calcium [Mass/Vol] 9.0 mg/dL 8.6 - 10.6 [facility] 260 DO Work Phone: [phone] Chloride [Moles/Vol] 109 mmol/L above high threshold 98 - 107 [facility] 260 DO Work Phone: CO2 [Moles/Vol] 24 mmol/L 21 - 32 [facility] 260 DO Work Phone: Creatinine [Mass/Vol] 1.77 mg/dL above high threshold See Below [facility] 260 DO Work Phone: Comment on above: Reference Range: 0.5 0 - 1.30 Glucose [Mass/Vol] 195 mg/dL above high threshold 74 - 99 [facility] 260 DO Work Phone: Phosphate [Mass/Vol] [...] 4.5 mmol/L 3.5 - 5.3 [facility] 260 DO Work Phone: Sodium [Moles/Vol] 143 mmol/L 136 - 145 [facility] [facility] 260 DO Work Phone: Urea nitrogen [Mass/Vol] 49 mg/dL above high threshold 6 - 23 [facility] 260 DO Work Phone: Renal Function [...] a chemiluminescent microparticle immunoassay (CMIA) on the [employer] system.Optimal therapeutic ranges for immuno-suppressant drugs depend upon an individualpatient's current clinical state, type oforgan transplant, time post-transplant,co-administration of other immunosuppressants,and other clinical factors. The results ofthis test should be correlated with additionalclinical and laboratory data before changesin treatment regimens are made. CT Head without Contraston 1 CT Head limited WO contrast Normal [facility] 260 DO Work Phone: [phone] Laboratory - Chemistry and C hemistry - challengeon 12-23-2020 Glucose [Mass/Vol] 151 mg/dL above high threshold 74 - 99 [facility] 260 DO Work Phone: [phone] Glucose [Mass/Vol] 241 mg/dL above high threshold 74 - 99 [facility] 260 DO Work Phone: [phone] Glucose [Mass/Vol] 195 mg/dL above high threshold 74 - 99 [facility] 260 DO Work Phone: [phone] Glucose [Mass/Vol] 160 mg/dL above high threshold 74 - 99 [facility] 260 DO Work Phone: [phone] Laboratory - Hematology and Cell countson 12-23-2020 Erythrocyte distribution width (RBC) [Ratio] 12.5 % See Below [facility] 260 DO Work Phone: [phone] Comment on above: Reference Range: 11. 5 - 14.5 Hematocrit (Bld) [Volume fraction] 34.3 % below low threshold See Below [facility] 260 DO Work Phone: [phone] Comment on above: Reference Range: 41. 0 - 52.0 Hemoglobin (Bld) [Mass/Vol] 11.1 g/dL below low threshold See Below [facility] 260 DO Work Phone: [phone] Comment on above: Reference Range: 13. 5 - 17.5 MCHC (RBC) [Mass/Vol] 32.4 g/dL See Below [facility] 260 DO Work Phone: [phone] Comment on above: Reference Range: 32. 0 - 36.0 MCV (RBC) [Entitic vol] 90 fL 80 - 100 M [facility] [facility] 260 DO Work Phone: [phone] Platelets (Bld) [#/Vol] 106 10*3/uL below lo w threshold 150 - 450 [facility] 260 DO Work Phone: [phone] RBC (Bld) [#/Vol] 3.83 {x10E12/L} below low threshold See Below [facility] 260 DO Work Phone: [phone] Comment on above: Reference Range: 4.5 0 - 5.90 WBC (Bld) [#/Vol] 5.2 10*3/uL 4.4 - 11.3 [facility] [facility] 260 DO Work Phone: [phone] No Panel Informationon 12-23 0.0 {/100_WBC} 0.0-0.0 [facility] 260 DO Work Phone: [phone] Renal Function Panelon 12-23 Albumin BCP dye [Mass/Vol] 3.6 g/dL 3.4 - 5.0 [facility] 260 DO Work Phone: [phone] Anion gap [Moles/Vol] 14 mmol/L 10 - 20 [facility] 260 DO Work Phone: [phone] Calcium [Mass/Vol] 8.9 mg/dL 8.6 - 10.6 [facility] 260 DO Work Phone: [phone] Chloride [Moles/Vol] 109 mmol/L above high threshold 98 - 107 [facility] 260 DO Work Phone: [phone] CO2 [Moles/Vol] 23 mmol/L 21 - 32 [facility] 260 DO Work Phone: [phone] Creatinine [Mass/Vol] 1.71 mg/dL above high threshold [...] 4.2 mmol/L 3.5 - 5.3 [facility] [facility] 260 DO Work Phone: Sodium [Moles/Vol] 142 mmol/L 136 - 145 [facility] 260 DO Work Phone: Urea nitrogen [Mass/Vol] 50 mg/dL above high threshold 6 - 23 [facility] [facility] 260 DO Work Phone: Renal Function Panel 47 {mL/min/1.73m2} Abnormal >60 [facility] 260 DO Work Phone: Comment on above: CALCULATIONS OF ERNST MATED GFR ARE PERFORMED USING THE MDRD STUDY EQUATION FOR THE IDMS-TRACEABLE CREATININE METHODS. CLIN CHEM 2007;53:766-72 Renal Function Panel 39 {mL/min/1.73m2} Abnormal >60 [facility] 260 DO Work Phone: Tacrolimuson 12-23-2020 Tacrolimus (Bld) [Mass/Vol] 5.9 ng/mL 2.0 - 15.0 [facility] 260 DO Work Phone: Comment on above: NOTE: Result was obt ained using a chemiluminescent microparticle immunoassay (CMIA) on the [employer] system.Optimal therapeutic ranges for immuno-suppressant drugs depend upon an individualpatient's current clinical state, type oforgan transplant, time post-transplant,co-administration of other immunosuppressants,and other clinical factors. The results ofthis test should be correlated with additionalclinical and laboratory data before changesin treatment regimens are made. Laboratory - Chemistry and C hemistry - challengeon 12-22-2020 Glucose [Mass/Vol] 160 mg/dL above high threshold 74 - 99 [facility] 260 DO Work Phone: [phone] Glucose [Mass/Vol] 146 mg/dL above high threshold 74 - 99 [facility] 260 DO Work Phone: [phone] Glucose [Mass/Vol] 217 mg/dL above high threshold 74 - 99 [facility] 260 DO Work Phone: [phone] Glucose [Mass/Vol] 145 mg/dL above high threshold 74 - 99 [facility] 260 DO Work Phone: [phone] Glucose [Mass/Vol] 142 mg/dL above high threshold 74 - 99 [facility] 260 DO Work Phone: [phone] Laboratory - Hematology and Cell countson 12-22-2020 Erythrocyte distribution width (RBC) [Ratio] 12.6 % See Below [facility] 260 DO Work Phone: [phone] Comment on above: Reference Range: 11. 5 - 14.5 Hematocrit (Bld) [Volume fraction] 33.0 % below low threshold See Below [facility] 260 DO Work Phone: Comment on above: Reference Range: 41. 0 - 52.0 Hemoglobin (Bld) [Mass/Vol] 10.7 g/dL below low threshold See Below [facility] 260 DO Work Phone: Comment on above: Reference Range: 13. 5 - 17.5 MCHC (RBC) [Mass/Vol] 32.4 g/dL See Below [facility] 260 DO Work Phone: [phone] Comment on above: Reference Range: 32. 0 - 36.0 MCV (RBC) [Entitic vol] 91 fL 80 - 100 M [facility] [facility] 260 DO Work Phone: [phone] Platelets (Bld) [#/Vol] 107 10*3/uL below lo w threshold 150 - 450 [facility] [facility] 260 DO Work Phone: [phone] RBC (Bld) [#/Vol] 3.62 {x10E12/L} below low threshold See Below [facility] 260 DO Work Phone: [phone] Comment on above: Reference Range: 4.5 0 - 5.90 WBC (Bld) [#/Vol] 5.0 10*3/uL 4.4 - 11.3 [facility] 260 DO Work Phone: [phone] No Panel Informationon 12-22 0.0 {/100_WBC} 0.0-0.0 [facility] [facility] 260 DO Work Phone: [phone] Renal Function Panelon 12-22 Albumin BCP dye [Mass/Vol] 3.5 g/dL 3.4 - 5.0 [facility] 260 DO Work Phone: [phone] Anion gap [Moles/Vol] 15 mmol/L 10 - 20 [facility] 260 DO Work Phone: [phone] Calcium [Mass/Vol] 8.9 mg/dL 8.6 - 10.6 [facility] [facility] 260 DO Work Phone: [phone] Chloride [Moles/Vol] 111 mmol/L above high threshold 98 - 107 [facility] [facility] 260 DO Work Phone: [phone] CO2 [Moles/Vol] 23 mmol/L 21 - 32 [facility] 260 DO Work Phone: Creatinine [Mass/Vol] 2.04 mg/dL above high threshold See Below [facility] [facility] 260 DO Work Phone: Comment on above: Reference Range: 0.5 0 - 1.30 Glucose [Mass/Vol] 131 mg/dL above high threshold 74 - 99 [facility] [facility] 260 DO Work Phone: Phosphate [Mass/Vol] [...] above high threshold 6 - 23 [facility] [facility] 260 DO Work Phone: Renal Function [...] a chemiluminescent microparticle immunoassay (CMIA) on the [employer] system.Optimal therapeutic ranges for immuno-suppressant drugs [...] 12-21-2020 Glucose [Mass/Vol] 148 mg/dL [facility] [facility] 260 DO Work Phone: HbA1c (Bld) [Mass fraction] Canceled [facility] 260 DO Work Phone: Comment on above: Diagnosis of Diabete s-Adults Non-Diabetic: < or = 5.6% Increased risk for developing diabetes: 5.7-6.4% Diagnostic of diabetes: > or = 6.5%. Monitoring of Diabetes Age (y) Therapeutic Goal (%) Adults: >18 <7.0 Pediatrics: 13-18 <7.5 7-12 <8.0 0- 6 7.5-8.5 [place] [employer]. Diabetes Care 33(S1)Mar 2009. HbA1c [...] 13-18 <7.5 7-12 <8.0 0- 6 7.5-8.5 [place] [employer]. Diabetes Care 33(S1), Mar 2009. Hemoglobin A1C Canceled [facility] 260 DO Work Phone: Laboratory - Chemistry and C hemistry - challengeon 12-21-2020 Glucose [Mass/Vol] 191 mg/dL above high threshold 74 - 99 [facility] 260 DO Work Phone: Glucose [Mass/Vol] 203 mg/dL above high threshold 74 - 99 [facility] 260 DO Work Phone: [phone] Glucose [Mass/Vol] 229 mg/dL above high threshold 74 - 99 [facility] [facility] 260 DO Work Phone: [phone] Glucose [Mass/Vol] 136 mg/dL above high threshold 74 - 99 [facility] 260 DO Work Phone: [phone] Laboratory - Hematology and Cell countson 12-21-2020 Erythrocyte distribution width (RBC) [Ratio] 12.8 % See Below [facility] 260 DO Work Phone: [phone] Comment on above: Reference Range: 11. 5 - 14.5 Hematocrit (Bld) [Volume fraction] 35.6 % below low threshold See Below [facility] 260 DO Work Phone: [phone] Comment on above: Reference Range: 41. 0 - 52.0 Hemoglobin (Bld) [Mass/Vol] 12.0 g/dL below low threshold See Below [facility] [facility] 260 DO Work Phone: Comment on above: Reference Range: 13. 5 - 17.5 MCHC (RBC) [Mass/Vol] 33.7 g/dL See Below [facility]- [facility] 260 DO Work Phone: Comment on above: Reference Range: 32. 0 - 36.0 MCV (RBC) [Entitic vol] 89 fL 80 - 100 M [facility] [facility] 260 DO Work Phone: Platelets (Bld) [#/Vol] 124 10*3/uL below lo w threshold 150 - 450 [facility] [facility] 260 DO Work Phone: [phone] RBC (Bld) [#/Vol] 4.01 {x10E12/L} below low threshold See Below [facility] [facility] 260 DO Work Phone: [phone] Comment on above: Reference Range: 4.5 0 - 5.90 WBC (Bld) [#/Vol] 6.2 10*3/uL 4.4 - 11.3 [facility] 260 DO Work Phone: No Panel Informationon 12-21 0.0 {/100_WBC} 0.0-0.0 [facility] 260 DO Work Phone: [phone] Renal Function Panelon 12-21 Albumin BCP dye [Mass/Vol] 3.8 g/dL 3.4 - 5.0 [facility] 260 DO Work Phone: [phone] Anion gap [Moles/Vol] 15 mmol/L 10 - 20 [facility]- [facility] 260 DO Work Phone: [phone] Calcium [Mass/Vol] 8.8 mg/dL 8.6 - 10.6 [facility] [facility] 260 DO Work Phone: [phone] Chloride [Moles/Vol] 110 mmol/L above high threshold 98 - 107 [facility] [facility] 260 DO Work Phone: [phone] CO2 [Moles/Vol] 23 mmol/L 21 - 32 [facility] [facility] 260 DO Work Phone: [phone] Creatinine [Mass/Vol] 2.22 mg/dL above high threshold See Below [facility] [facility] 260 DO Work Phone: [phone] Comment on above: Reference Range: 0.5 0 [...] above high threshold 6 - 23 [facility] 260 DO Work Phone: Renal Function Panel 35 {mL/min/1.73m2} Abnormal >60 [facility] 260 DO Work Phone: Comment on above: CALCULATIONS OF ERNST MATED GFR ARE PERFORMED USING THE MDRD STUDY EQUATION FOR THE IDMS-TRACEABLE CREATININE METHODS. CLIN CHEM 2007;53:766-72 Renal Function Panel 29 {mL/min/1.73m2} Abnormal >60 [facility] 260 DO Work Phone: Tacrolimuson 12-21-2020 Tacrolimus (Bld) [Mass/Vol] 6.8 ng/mL 2.0 - 15.0 [facility] 260 DO Work Phone: Comment on above: NOTE: Result was obt ained using a chemiluminescent microparticle immunoassay (CMIA) on the [employer] system.Optimal therapeutic ranges for immuno-suppressant drugs depend upon an individualpatient's current clinical state, type oforgan transplant, time post-transplant,co-administration of other immunosuppressants,and other clinical factors. The results ofthis test should be correlated with additionalclinical and laboratory data before changesin treatment regimens are made. Coronavirus 2019 RNA by PCR, Symptomaticon 12-20-2020 Coronavirus 2019 RNA by PCR, Symptomatic Not detected Normal See Below [facility] 260 DO Work Phone: Comment on above: SOURCE: Nasal, Nasop haryngealReference Range: Not Detected.This test has received FDA Emergency Use Authorization (EUA) and has been verified by [facility] ([facility]). This test is only authorized for the duration of time that circumstances exist to justify the authorization of the emergency use of in vitro diagnostic tests for the detection of SARS-CoV-2 virus and/or diagnosis of COVID-19 infection under section 564(b)(1) of the Act, 21 U.S.C. 360bbb-3(b)(1), unless the authorization is terminated or revoked sooner. [facility] is certified under CLIA-88 as qualified to perform high complexity testing. Testing is performed in the [facility] located at [address] [place] [address].SARS-CoV-2/Flu/RSV Multiplex Test: Fact sheet for providers: https://www.fda.gov/media/438411/downloadFact sheet for patients: https://www.fda.gov/media/610639/download Date and time of symptom onset Canceled [facility] 260 DO Work Phone: Coronavirus 2019 RNA by PCR, Symptomatic Canceled [facility] [facility] 260 DO Work Phone: Comment on [...] this test method. Fact sheet for providers: www.fda.gov/media/947420/downloadFact sheet for patients: www.fda.gov/media/639262/downloadThis test has received FDA Emergency Use Authorization (EUA) and has been verified by [facility] ([facility]). This test is only authorized for the duration of time that circumstances exist to justify the authorization of the emergency use of in vitro diagnostic tests for the detection of SARS-CoV-2 virus and/or diagnosis of COVID-19 infection under section 564(b)(1) of the Act, 21 U.S.C. 360bbb-3(b)(1), unless the authorization is terminated or revoked sooner. [facility] is certified under CLIA-88 as qualified to perform high complexity testing. Testing is performed in the [facility] laboratories located at [address] [place] [address]. Folate, Serumon 12-20-2020 Folate [Mass/Vol] ng/mL >5.0 [facility] [facility] 260 DO Work Phone: Comment on [...] above high threshold 74 - 99 [facility] [facility] 260 DO Work Phone: TSH Qn 2.00 m[IU]/L See Below [facility] 260 DO Work Phone: Comment on above: Reference Range: 0.4 4 - 3.98 TSH testing is performed using different testing methodology at [facility] than at other [facility]. Direct result comparisons should only be made within the same method. Laboratory - Coagulationon 1 aPTT Coag (PPP) [Time] Canceled [facility] 260 DO Work Phone: Comment on above: THE APTT IS NO LONGE R USED FOR MONITORING UNFRACTIONATED HEPARIN THERAPY. FOR MONITORING HEPARIN THERAPY, USE THE HEPARIN ASSAY. INR Coag (PPP) [Relative time] Canceled [facility] 260 DO Work Phone: [phone] PT Coag (PPP) [Time] Canceled MG-C niladiolo gy-[place] [facility] 260 DO Work Phone: [phone] Laboratory - Hematology and Cell countson 12-20-2020 Erythrocyte distribution width (RBC) [Ratio] 12.9 % See Below [facility] 260 DO Work Phone: [phone] Comment on above: Reference Range: 11. 5 - 14.5 Hematocrit (Bld) [Volume fraction] 35.8 % below low threshold See Below [facility] 260 DO Work Phone: [phone] Comment on above: Reference Range: 41. 0 - 52.0 Hemoglobin (Bld) [Mass/Vol] 11.7 g/dL below low threshold See Below [facility] 260 DO Work Phone: [phone] Comment on above: Reference Range: 13. 5 - 17.5 MCHC (RBC) [Mass/Vol] 32.7 g/dL See Below [facility] [facility] 260 DO Work Phone: [phone] Comment on above: Reference Range: 32. 0 - 36.0 MCV (RBC) [Entitic vol] 90 fL 80 - 100 M [facility] 260 DO Work Phone: [phone] Platelets (Bld) [#/Vol] 131 10*3/uL below lo w threshold 150 - 450 [facility] 260 DO Work Phone: [phone] RBC (Bld) [#/Vol] 3.97 {x10E12/L} below low threshold See Below [facility] 260 DO Work Phone: [phone] Comment on above: Reference Range: 4.5 0 - 5.90 WBC (Bld) [#/Vol] 7.3 10*3/uL 4.4 - 11.3 [facility] 260 DO Work Phone: Lactate, Levelon [...] 12-20 82 pg/mL 0 - 99 [facility] 260 DO Work Phone: Comment on above: . <100 pg/mL - Heart failure [id number] pg/mL - Intermediate probability of acute heart. [...] further information. 0.0 {/100_WBC} 0.0-0.0 [facility] 260 DO Work Phone: Radiologyon 12-20-2020 XR Abdomen AP Normal [facility] 260 DO Work Phone: XR Chest Single view Normal MG-C ardiolo gy-[facility] 260 DO Work Phone: Renal Function Panelon 12-20 Albumin BCP dye [Mass/Vol] 3.9 g/dL 3.4 - 5.0 [facility] 260 DO Work Phone: [phone] Anion gap [Moles/Vol] 17 mmol/L 10 - 20 [facility] 260 DO Work Phone: [phone] Calcium [Mass/Vol] 9.2 mg/dL 8.6 - 10.6 [facility] 260 DO Work Phone: [phone] Chloride [Moles/Vol] 112 mmol/L above high threshold 98 - 107 [facility] 260 DO Work Phone: [phone] CO2 [Moles/Vol] 24 mmol/L 21 - 32 [facility] 260 DO Work Phone: [phone] Creatinine [Mass/Vol] 2.40 mg/dL above high threshold See Below [facility] 260 DO Work Phone: [phone] Comment on above: Reference Range: 0.5 0 - 1.30 Glucose [Mass/Vol] 211 mg/dL above high threshold 74 - 99 [facility] 260 DO Work Phone: [phone] [...] above high threshold 6 - 23 [facility] 260 DO Work Phone: Renal Function Panel 31 {mL/min/1.73m2} Abnormal >60 [facility] 260 DO Work Phone: Comment on above: CALCULATIONS OF ERNST MATED GFR ARE PERFORMED USING THE MDRD STUDY EQUATION FOR THE IDMS-TRACEABLE CREATININE METHODS. CLIN CHEM 2007;53:766-72 Renal Function Panel 26 {mL/min/1.73m2} Abnormal >60 [facility] 260 DO Work Phone: Tacrolimuson 12-20-2020 Tacrolimus (Bld) [Mass/Vol] 5.6 ng/mL 2.0 - 15.0 [facility] 260 DO Work Phone: Comment on above: NOTE: Result was obt ained using a chemiluminescent microparticle immunoassay (CMIA) on the [employer] system.Optimal therapeutic ranges for immuno-suppressant drugs [...] is performed using different testing methodology at [facility] than at other [facility]. Direct result comparisons should only [...] [Moles/Vol] 11 mmol/L 9 - 17 mmol/L [employer] Phone: Calcium [Mass/Vol] 9.3 mg/dL 8.6 - 10. 4 mg/dL [employer] Phone: Chloride [Moles/Vol] 107 mmol/L 98 - 10 7 mmol/L [employer] Phone: CO2 [Moles/Vol] 23 mmol/L 20 - 31 mmol/L [employer] Phone: Creatinine [Mass/Vol] 2.53 mg/dL High 0.70 - 1.20 mg/dL [facility] Phone: GFR 30 mL/min Low >60 [employer] Phone: GFR Non- 25 mL/min Low >60 [facility] Phone: Glucose [Mass/Vol] 160 mg/dL High 70 - 99 mg/dL [employer] Phone: Interpretation and review of laboratory results Abnormal [employer] Phone: Potassium [Moles/Vol] 4.5 mmol/L 3.7 - 5.3 mmol/L [employer] Phone: Sodium [Moles/Vol] 141 mmol/L 135 - 144 mmol/L [employer] Phone: Urea nitrogen (BldV) [Mass/Vol] 76 mg/dL High 8 - 23 mg/dL [employer] Phone: Urea nitrogen/Creatinine (Bld) [Mass ratio] 30 High [employer] Phone: [employer] Phone: Laboratory - Chemistry and C hemistry - challengeOrdered By: Manuel Conner on 12-19-2020 GFR/1.73 sq M.predicted MDRD (S/P/Bld) [Vol rate/Area] [employer] Phone: Comment on above: Average GFR for 70 o r more years old: 75 mL/min/1.73sq m Chronic Kidney Disease: <60 mL/min/1.73sq m Kidney failure: <15 mL/min/1.73sq m eGFR calculated using average adult body mass. Additional eGFR calculator available at: http://www.[employer]_crcl_2012.htm Stage 1: Some kidney damage normal GFR Stage 2: Mild kidney damage GFR 60-89 Stage 3: Moderate kidney damage GFR 30-59 Stage 4: Severe kidney damage GFR 15-29 Stage 5: Severe kidney damage GFR <15 ESRD - chronic treatment by dialysis or transplant TroponinOrdered By: Manuel Conner on 12-19-2020 Interpretation and review of laboratory results Abnormal [employer] Phone: Troponin Interp NOT REPORTED [employer] Phone: Troponin T NOT REPORTED <0.03 ng/mL [employer] Phone: Troponin, High Sensitivity 57 ng/L Critically high 0 - 22 ng/L [employer] Phone: Comment on above: High Sensitivity Troponin values cannot be compared with other Troponin methodologies. Patients with high levels of Biotin oral intake (i.e >5mg/day) may have falsely decreased Troponin levels. Samples collected within 8 hours of biotin intake may require additional information for diagnosis. [employer] Phone: Basic Metabolic PanelOrdered By: Manuel Conner on 12-18-2020 Anion gap [Moles/Vol] 14 mmol/L 9 - 17 mmol/L [employer] Phone: Calcium [Mass/Vol] 9.3 mg/dL 8.6 - 10. 4 mg/dL [employer] Phone: Chloride [Moles/Vol] 104 mmol/L 98 - 10 7 mmol/L [employer] Phone: CO2 [Moles/Vol] 22 mmol/L 20 - 31 mmol/L [employer] Phone: Creatinine [Mass/Vol] 4.1 mg/dL High 0.70 - 1.20 mg/dL [employer] Phone: GFR 17 mL/min Low >60 [employer] Phone: GFR Non- 14 mL/min Low >60 [employer] Phone: Glucose [Mass/Vol] 148 mg/dL High 70 - 99 mg/dL [employer] Phone: Potassium [Moles/Vol] 5.2 mmol/L 3.7 - 5.3 mmol/L [employer] Phone: Sodium [Moles/Vol] 140 mmol/L 135 - 144 mmol/L [employer] Phone: Urea nitrogen (BldV) [Mass/Vol] 87 mg/dL High 8 - 23 mg/dL [employer] Phone: Urea nitrogen/Creatinine (Bld) [Mass ratio] 21 High [employer] Phone: Brain Natriuretic PeptideOrd ered By: Manuel Conner on 12-18-2020 BNP Interpretation Pro-BNP Reference Range: [employer] Phone: Comment on above: Rule Out: <300 Pagan Zone: Age <50 300-450 Age 50-75 300-900 Age >75 300-1800 Usually represents mild to moderate HF but other cardiopulmonary causes cannot be ruled out. Rule In: Age <50 >450 Age 50-75 >900 Age >75 >1800 Interpretation and review of laboratory results Abnormal [employer] Phone: Natriuretic peptide B (Bld) [Mass/Vol] 846 pg/mL High <300 [employer] Phone: Comment on above: Pro-BNP results halie ot be compared to BNP results. [employer] Phone: EKG Rhythm StripOrdered By: Unknown Result on 12-18-2020 [employer] Phone: [employer] Phone: Glucose, Whole BloodOrdered By: Manuel Conner on 12-18-2020 Glucose [Mass/Vol] 152 mg/dL High 74 - 100 mg/dL [employer] Phone: Interpretation and review of laboratory results Abnormal [employer] Phone: [employer] Phone: Laboratory - Chemistry and C hemistry - challengeOrdered By: Manuel Conner on 12-18-2020 GFR/1.73 sq M.predicted MDRD (S/P/Bld) [Vol rate/Area] Kno Phone: Comment on above: Average GFR for 70 o r more years old: 75 mL/min/1.73sq m Chronic Kidney Disease: <60 mL/min/1.73sq m Kidney failure: <15 mL/min/1.73sq m eGFR calculated using average adult body mass. Additional eGFR calculator available at: http://www.[employer].com/multiple_crcl_2012.htm Stage 1: Some kidney damage normal GFR Stage 2: Mild kidney damage GFR 60-89 Stage 3: Moderate kidney damage GFR 30-59 Stage 4: Severe kidney damage GFR 15-29 Stage 5: Severe kidney damage GFR <15 ESRD - chronic treatment by dialysis or transplant No Panel InformationOrdered By: Manuel Conner on 12-18-2020 Interpretation and review of laboratory results Abnormal Kno Phone: Kno Phone: TroponinOrdered By: Manuel Conner on 12-18-2020 Troponin Interp NOT REPORTED Kno Phone: Troponin T NOT REPORTED <0.03 ng/mL Kno Phone: Troponin, High Sensitivity 71 ng/L Critically high 0 - 22 ng/L Kno Phone: Comment on above: High Sensitivity Troponin [...] Consider advancement by 5-7 cm, if able. Kno Phone: EXAMINATION: ONE XRA Y VIEW OF [...] cardiomegaly. Bony thorax is without acute abnormality. Kno Phone: Roger, Mhpn Incoming R adiant Results From [facility] - 12/18/2020 1:31 PM EDT EXAMINATION: ONE [...] Consider advancement by 5-7 cm, if able. Kno Phone: Kno Phone: XR CHEST PORTABLEOrdered By: Manuel Conner on 12-18-2020 Mild prominence of interstitial markings suggests mild vascular congestion with mild streaky bibasilar atelectasis Kno Phone: EXAMINATION: ONE XRA Y VIEW OF THE CHEST 12/18/2020 11:18 am COMPARISON: December 17, 2020, chest examination HISTORY: ORDERING SYSTEM PROVIDED HISTORY: Congestion TECHNOLOGIST PROVIDED HISTORY: Congestion FINDINGS: Median sternotomy. Stable cardiomegaly/mild tortuosity of the thoracic aorta Mild streaky bibasilar density. Mild prominence of interstitial markings Possible small right pleural effusion Degenerative changes of the thoracic spine/shoulders Kno Phone: Roger, Mhpn Incoming R adiant Results From [facility] [employer] [employer] - 12/18/2020 11:26 AM EDT EXAMINATION: ONE [...] vascular congestion with mild streaky bibasilar atelectasis Kno Phone: Kno Phone: APTTOrdered By: Manuel lew on 12-17-2020 aPTT Coag (Bld) [Time] 22.8 s Low Me aScentias Phone: Comment on above: IV Heparin Therapy Range: 62.0-94.0 Interpretation and review of laboratory results Abnormal Kno Phone: Kno Phone: Blood Gas, VenousOrdered By: Manuel Conner on 12-17-2020 Shilo Test NOT REPORTED Kno Phone: Carboxyhemoglobin NOT REPORTED 0.0 - 5.0 % Kno Phone: Comment on above: FIO2 NOT REPORTED Kno Phone: HCO3 (Bld) [Moles/Vol] 21.9 mmol/L Low 24.0 - 30.0 mmol/L Kno Phone: Interpretation and review of laboratory results Abnormal Kno Phone: Methemoglobin NOT REPORTED 0.0 - 1.9 % Kno Phone: Mode NOT REPORTED Kno Phone: Negative Base Excess, Angelo 5.7 mmol/L High 0.0 - 2.0 mmol/L Kno Phone: NOTIFICATION NOT REPORTED Kno Phone: NOTIFICATION TIME NOT REPORTED Kno Phone: O2 Device/Flow/% NOT REPORTED Kno Phone: Oxygen saturation in Blood 31.2 % Low 60.0 - 85.0 % Kno Phone: Oxyhemoglobin NOT REPORTED 95.0 - 98.0 [...] Work Phone: Text for Respiratory NOT REPORTED [facility] Work Phone: Total Hb NOT REPORTED 12.0 - 16.0 g/dl [facility] Work Phone: Total Rate NOT REPORTED [facility] Work Phone: VT NOT REPORTED [facility] Work Phone: [facility] Work Phone: Brain Natriuretic PeptideOrd ered By: Manuel Conner on 12-17-2020 BNP Interpretation Pro-BNP Reference Range: [facility] Work Phone: Comment on above: Rule Out: <300 Pagan Zone: Age <50 300-450 Age 50-75 300-900 Age >75 300-1800 Usually represents mild to moderate HF but other cardiopulmonary causes cannot be ruled out. Rule In: Age <50 >450 Age 50-75 >900 Age >75 >1800 Natriuretic peptide B (Bld) [Mass/Vol] 1428 pg/mL High <300 Kno Phone: Comment on above: Pro-BNP results halie ot be compared to BNP results. CBC Auto DifferentialOrdered By: Manuel Conner on 12-17-2020 Absolute Eos # 0.03 Kno Phone: Absolute Immature Granulocyte 0.03 Kno Phone: Absolute Lymph # 0.96 Low Kno Phone: Absolute [place] # 0.52 Kno Phone: Basophils (Bld) [#/Vol] 10*3/uL M [employer] Phone: Basophils/100 WBC (Bld) 0 % 0 - 2 % M [employer] Phone: Differential Type NOT REPORTED Kno Phone: Eosinophils/100 WBC (Bld) 0 % Low 1 - 4 % Kno Phone: Hematocrit (Bld) [Volume fraction] 37.2 % Low 40.7 - 50.3 % Kno Phone: Hemoglobin.gastrointest inal spec 1 Ql (Stl) 11.5 g/dL Low 13.0 - 17.0 g/dL Kno Phone: [phone] Immature granulocytes/100 WBC (Bld) 0 % 0 Kno Phone: Interpretation and review of laboratory results Abnormal Kno Phone: Lymphocytes/100 WBC (Bld) 11 % Low 24 - 43 % Kno Phone: MCH (RBC) [Entitic mass] 28.5 pg 25.2 - 33.5 pg Kno Phone: MCHC (RBC) [Mass/Vol] 30.9 g/dL 28.4 - 34.8 g/dL Kno Phone: MCV (RBC) [Entitic vol] 92.3 fL 82.6 - 102.9 fL Kno Phone: Monocytes/100 WBC (Bld) 6 % 3 - 12 % M [employer] Phone: NRBC Automated 0.0 0.0 per 100 WBC Kno Phone: Platelet distribution width (Bld) [Ratio] 13.0 % 11.8 - 14.4 % Kno Phone: Platelet Estimate NOT REPORTED Kno Phone: Platelet mean volume (Bld) [Entitic vol] NOT REPORTED 8.1 - 13.5 fL Kno Phone: Platelets (Bld) [#/Vol] See Reflexed IPF Result Kno Phone: RBC (Bld) [#/Vol] 4.03 10*6/uL Low 4.21 - 5.77 m/uL Kno Phone: RBC (Bld) [#/Vol] NOT REPORTED Kno Phone: Segmented neutrophils/100 WBC (Bld) 82 % High 36 - 65 % Kno Phone: Segs Absolute 6.94 Kno Phone: WBC (Bld) [#/Vol] 8.5 10*3/uL Kno Phone: WBC (Bld) [#/Vol] NOT REPORTED Kno Phone: Kno Phone: COVID-19, RapidOrdered By: Agnieszka munozsloan Finneyjodie on 12-17-2020 SARS-CoV-2 (COVID-19) RNA JOYCE+probe Ql (Unsp spec) Not detected Not Detected Kno Phone: Comment on above: Rapid NAAT: The [...] management decisions. Fact sheet for Healthcare Providers: https://www.fda.gov/media/041324/download Fact sheet for Patients: https://www.fda.gov/media/606235/download Methodology: Isothermal Nucleic Acid Amplification Specimen Description .NASOPHARYNGEAL SWAB Kno Phone: Kno Phone: CT HEAD WO CONTRASTOrdered B y: Manuel Conner on 12-17-2020 No acute intracrania l abnormality. 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 Minimal parenchymal volume loss. Minimal chronic microvascular disease. Kno Phone: EXAMINATION: CT OF T HE HEAD [...] of the visualized skull or soft tissues. [employer] Work Phone: Roger, Mhpn Incoming R adiant Results From [facility] - 12/17/2020 9:36 AM EDT EXAMINATION: CT OF THE HEAD WITHOUT CONTRAST 12/17/2020 9:21 am TECHNIQUE: CT of the head was performed without the administration of intravenous contrast. Dose modulation, iterative reconstruction, and/or weight based adjustment of the mA/kV was utilized to reduce the radiation dose to as low as reasonably achievable. COMPARISON: None. HISTORY: ORDERING SYSTEM PROVIDED HISTORY: ams TECHNOLOGIST PROVIDED HISTORY: [facility] Decision Support Exception - unselect if [...] parenchymal volume loss. Minimal chronic microvascular disease. Kno Phone: Kno Phone: Comprehensive Metabolic Pane l w/ Reflex to MGOrdered By: Manuel Conner on 12-17-2020 Albumin [Mass/Vol] 4 g/dL 3.5 - 5.2 g/dL Kno Phone: Albumin/Globulin [Mass ratio] 1.3 {ratio} Kno Phone: ALP (Bld) [Catalytic activity/Vol] 66 U/L 40 - 129 U/L Kno Phone: ALT [Catalytic activity/Vol] 12 U/L 5 - 41 U/L Kno Phone: Anion gap [Moles/Vol] 19 mmol/L High 9 - 17 mmol/L Kno Phone: AST [Catalytic activity/Vol] 18 U/L <40 Kno Phone: Bilirubin [Mass/Vol] 0.16 mg/dL Low 0.3 - 1 .2 mg/dL Kno Phone: Calcium [Mass/Vol] 8.8 mg/dL 8.6 - 10. 4 mg/dL Kno Phone: Chloride [Moles/Vol] 102 mmol/L 98 - 10 7 mmol/L Kno Phone: CO2 [Moles/Vol] 19 mmol/L Low 20 - 31 mmol/L Kno Phone: Creatinine [Mass/Vol] 6.59 mg/dL Critically high 0.7 0 - 1.20 mg/dL Kno Phone: Free PSA/Total PSA [Mass fraction] 7.0 g/dL 6.4 - 8.3 g/dL Kno Phone: GFR 10 mL/min Low >60 [employer] Work Phone: GFR Non- 8 mL/min Low >60 [employer] Work Phone: Glucose [Mass/Vol] 197 mg/dL High 70 - 99 mg/dL Kno Phone: Potassium [Moles/Vol] 4.6 mmol/L 3.7 - 5.3 mmol/L Kno Phone: Sodium [Moles/Vol] 140 mmol/L 135 - 144 mmol/L Kno Phone: Urea nitrogen (BldV) [Mass/Vol] 96 mg/dL Critically high 8 - 23 mg/dL Kno Phone: Urea nitrogen/Creatinine (Bld) [Mass ratio] 15 [employer] Work Phone: EKG 12 LeadOrdered By: Kathy Conner on 12-17-2020 Atrial Rate 85 BPM Kno Phone: P [place] -15 degrees Kno Phone: P-R Interval 224 ms Kno Phone: Q-T Interval 414 ms Kno Phone: [phone] QRS Duration 120 ms Kno Phone: QTc Calculation (Bazett) 492 ms Kno Phone: R [place] 99 degrees Kno Phone: T [place] 44 degrees Kno Phone: Ventricular Rate 85 BPM Kno Phone: Sinus rhythm with 1s t degree A-V block Rightward axis Septal infarct , age undetermined Abnormal ECG No previous ECGs available Confirmed by JARON BERNARD ([id number]) on 12/17/2020 11:51:30 PM Kno Phone: Roger, Mhpn Incoming E kg Results From [employer] - 12/17/2020 11:51 PM EDT Sinus rhythm with 1st degree A-V block Rightward axis Septal infarct , age undetermined Abnormal ECG No previous ECGs available Confirmed by JARON BERNARD ([id number]) on 12/17/2020 11:51:30 PM Kno Phone: Kno Phone: Immature Platelet FractionOr dered By: Manuel Conner on 12-17-2020 Interpretation and review of laboratory results Abnormal Kno Phone: Platelet, Fluorescence 110 Low Me [employer] Phone: Platelet, Immature Fraction 4.6 % 1.1 - 10.3 % Kno Phone: Kno Phone: Laboratory - Chemistry and C hemistry - challengeOrdered By: Manuel Conner on 12-17-2020 GFR/1.73 sq M.predicted MDRD (S/P/Bld) [Vol rate/Area] Kno Phone: Comment on above: Average GFR for 70 o r more years old: 75 mL/min/1.73sq m Chronic Kidney Disease: <60 mL/min/1.73sq m Kidney failure: <15 mL/min/1.73sq m eGFR calculated using average adult body mass. Additional eGFR calculator available at: http://www.[employer].Seadev[employer]/multiple_crcl_2012.htm Stage 1: Some kidney damage normal GFR Stage 2: Mild kidney damage GFR 60-89 Stage 3: Moderate kidney damage GFR 30-59 Stage 4: Severe kidney damage GFR 15-29 Stage 5: Severe kidney damage GFR <15 ESRD - chronic treatment by dialysis or transplant Lactic AcidOrdered By: Kathy Conner on 12-17-2020 Lactate [Moles/Vol] 1.3 mmol/L 0.5 - 2. 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 Flow artifact in the proximal M1 segments of the bilateral MCAs and intracranial right ICA. The bilateral intracranial vertebral arteries are not imaged. Kno Phone: EXAMINATION: MRA OF THE HEAD WITHOUT CONTRAST 12/17/2020 1:32 pm TECHNIQUE: MRA of the head was performed utilizing [id number] imaging with MIP images. No intravenous contrast [...] cerebral arteries. No evidence of intracranial aneurysm. Kno Phone: Roger, Mhpn Incoming R adiant Results From [facility] [employer] - 12/17/2020 2:02 PM EDT EXAMINATION: MRA OF THE HEAD WITHOUT CONTRAST 12/17/2020 1:32 pm TECHNIQUE: MRA of the head was performed utilizing [id number] imaging with MIP images. No intravenous contrast [...] bilateral intracranial vertebral arteries are not imaged. Kno Phone: Kno Phone: MRI BRAIN WO CONTRASTOrdered By: Manuel Conner on 12-17-2020 Addendum by Cristhian Hardin MD on 12/17/2020 2:02 PM ADDENDUM: Absence of normal flow void in left vertebral artery, likely related to severe stenosis versus occlusion. Kno Phone: No acute intracrania l abnormality. 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 Mild parenchymal volume loss. Mild chronic microvascular disease. 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 Kno Phone: EXAMINATION: MRI OF THE BRAIN WITHOUT [...] The soft tissues demonstrate no acute abnormality. Kno Phone: Roger, pn Incoming R adiant Results From [facility] - 12/17/2020 1:55 PM EDT EXAMINATION: MRI [...] internal carotid artery, likely related to occlusion. [employer] Work Phone: [employer] Work Phone: Microscopic UrinalysisOrdere d By: Manuel Conner on 12-17-2020 - [employer] Work Phone: Amorphous, UA NOT REPORTED None [employer] Work Phone: Bacteria, UA NOT REPORTED None [employer] Work Phone: Casts UA NOT REPORTED /LPF [employer] Work Phone: Crystals, UA NOT REPORTED None /HPF [employer] Work Phone: Epithelial Cells UA 0 TO 2 Kno Phone: Mucus, UA NOT REPORTED None Kno Phone: Other Observations UA NOT REPORTED NOT REQ. [facility] Work Phone: RBC, UA 2 TO 5 [employer] Work Phone: Renal Epithelial, UA NOT REPORTED 0 /HPF Me [employer] Work Phone: Trichomonas, UA NOT REPORTED None Kno Phone: WBC, UA 0 TO 2 Kno Phone: Yeast, UA NOT REPORTED None Kno Phone: [employer] Work Phone: No Panel InformationOrdered By: Manuel Conner on 12-17-2020 Interpretation and review of laboratory results Abnormal Kno Phone: Kno Phone: Interpretation and review of laboratory results Abnormal Kno Phone: Kno Phone: Protime-INROrdered By: Kathy Conner on 12-17-2020 INR Coag (Bld) [Relative time] 1.1 {INR} Kno Phone: Comment on above: Non-therapeutic Range: INR = 0.9-1.2 Therapeutic Range: Moderate Anticoagulant Intensity: INR = 2.0-3.0 High Anticoagulant Intensity: INR = 2.5-3.5 PT Coag (PPP) [Time] 13.7 s [employer] Phone: Kno Phone: TroponinOrdered By: Manuel Conner on 12-17-2020 Interpretation and review of laboratory results Abnormal Kno Phone: Troponin Interp NOT REPORTED Kno Phone: Troponin T NOT REPORTED <0.03 ng/mL Kno Phone: Troponin, High Sensitivity 79 ng/L Critically high 0 - 22 ng/L Kno Phone: Comment on above: High Sensitivity Troponin values cannot be compared with other Troponin methodologies. Patients with high levels of Biotin oral intake (i.e >5mg/day) may have falsely decreased Troponin levels. Samples collected within 8 hours of biotin intake may require additional information for diagnosis. Kno Phone: Troponin Interp NOT REPORTED Kno Phone: Troponin T NOT REPORTED <0.03 ng/mL Kno Phone: Troponin, High Sensitivity 85 ng/L Critically high 0 - 22 ng/L Kno Phone: Comment on above: High Sensitivity Troponin values cannot be compared with other Troponin methodologies. Patients with high levels of Biotin oral intake (i.e >5mg/day) may have falsely decreased Troponin levels. Samples collected within 8 hours of biotin intake may require additional information for diagnosis. Urinalysis, reflex to micros copicOrdered By: Manuel Conner on 12-17-2020 Bilirubin Urine Negative NEGATIVE Kno Phone: Color, UA Yellow Yellow [employer] Work Phone: Glucose, Ur Negative NEGATIVE [employer] Work Phone: Interpretation and review of laboratory results Abnormal Kno Phone: Ketones Ql (U) Negative NEGATIVE [employer] Work Phone: Leukocyte esterase Test strip Ql (U) Negative NEGATIVE [employer] Work Phone: Nitrite, Urine Negative NEGATIVE [employer] Work Phone: pH, UA 5.5 [employer] Work Phone: Protein, UA TRACE Abnormal NEGATIVE Kno Phone: Specific [place], UA 1.025 High [employer] Work Phone: Turbidity UA Clear Clear [employer] Work Phone: Urinalysis Comments NOT REPORTED [facility] [employer] Work Phone: Urine Hgb TRACE Abnormal NEGATIVE Kno Phone: Urobilinogen, Urine Normal Normal Kno Phone: Kno Phone: XR CHEST PORTABLEOrdered By: Manuel Conner on 12-17-2020 Mild streaky bibasil ar atelectasis with possible small bilateral pleural effusions Kno Phone: EXAMINATION: ONE XRA Y VIEW OF THE CHEST 12/17/2020 9:30 am COMPARISON: None. HISTORY: ORDERING SYSTEM PROVIDED HISTORY: Congestion TECHNOLOGIST PROVIDED HISTORY: Congestion FINDINGS: Median sternotomy. Normal cardiopericardial silhouette Low volume lungs. Mild streaky bibasilar densities, possible possible small bilateral pleural effusions. Clear upper lungs Degenerative changes of the thoracic spine/shoulders [employer] Work Phone: Roger, Mhpn Incoming R adiant Results From [employer] - 12/17/2020 9:46 AM EDT EXAMINATION: ONE [...] atelectasis with possible small bilateral pleural effusions [employer] Work Phone: Kno Phone: Vital Signs Date Time Vital Sign Value Performing Clinician Facility 07-03-2021 15:01-0400 Body temperature 99.32 [degF] Michael Carballo Other Phone: [facility] 07-03-2021 15:01-0400 Diastolic blood pressure 66 mm[Hg] Michael Carballo Other Phone: [facility] 07-03-2021 15:01-0400 Heart rate 80 /min Michael Carballo Other Phone: [facility] 07-03-2021 15:01-0400 Respiratory rate 22 /min Michael Carballo Other Phone: [facility] 07-03-2021 15:01-0400 SaO2% (BldA) [Mass fraction] 97 % Michael Carballo Other Phone: [facility] 07-03-2021 15:01-0400 Systolic blood pressure 127 mm[Hg] Michael Carballo Other Phone: [facility] 07-03-2021 06:30-0400 Body weight 100.5 kg Michael Carballo Other Phone: [facility] 06-27-2021 13:00-0400 Diastolic blood pressure 69 mm[Hg] MD Michael Carballo Work Phone: [facility] 06-27-2021 13:00-0400 Heart rate 87 /min MD Michael Carballo Work Phone: [facility] 06-27-2021 13:00-0400 Respiratory rate 17 /min MD Michael Carballo Work Phone: [facility] 06-27-2021 13:00-0400 SaO2% (BldA) [Mass fraction] 94 % MD Michael Carballo Work Phone: [facility] 06-27-2021 13:00-0400 Systolic blood pressure 153 mm[Hg] MD Michael Carballo Work Phone: [facility] 06-27-2021 08:00-0400 Body temperature 97.9 [degF] MD Michael Carballo Work Phone: [facility] 06-27-2021 05:44-0400 Body weight 106.5 kg MD Michael Carballo Work Phone: [facility] 06-26-2021 14:12-0400 Body height 182.88 cm MD Michael Carballo Work Phone: [facility] 06-26-2021 00:24-0400 Body height 182.88 cm MD Michael Carabllo Work Phone: [facility] 06-26-2021 00:24-0400 Body mass index (BMI) [Ratio] 32.8 kg/m2 MD Michael Carballo Work Phone: [facility] 06-26-2021 00:24-0400 Body temperature 97.7 [degF] MD Michael Carballo Work Phone: [facility] 06-26-2021 00:24-0400 Body weight 109.9 kg MD Michael Carballo Work Phone: [facility] 06-26-2021 00:24-0400 Diastolic blood pressure 100 mm[Hg] MD Michael Carballo Work Phone: [facility] 06-26-2021 00:24-0400 Heart rate 88 /min MD Michael Carballo Work Phone: [facility] 06-26-2021 00:24-0400 Respiratory rate 18 /min MD Michael Carballo Work Phone: [facility] 06-26-2021 00:24-0400 SaO2% (BldA) [Mass fraction] 96 % MD Michael Carballo Work Phone: [facility] 06-26-2021 00:24-0400 Systolic blood pressure 221 mm[Hg] MD Michael Carballo Work Phone: [facility] 12-19-2020 20:01-0400 Diastolic blood pressure 64 mm[Hg] Manuel Conner MD Work Phone: [employer] Work Phone: 12-19-2020 20:01-0400 Systolic blood pressure 182 mm[Hg] Manuel Conner MD Work Phone: [employer] Work Phone: 12-19-2020 19:00-0400 Heart rate 75 /min Manuel Conner MD Work Phone: [employer] Work Phone: 12-19-2020 19:00-0400 Respiratory rate 23 /min Manuel Conner MD Work Phone: [employer] Work Phone: 12-19-2020 19:00-0400 SaO2% (BldA) [Mass fraction] 94 % Manuel Conner MD Work Phone: [employer] Work Phone: 12-18-2020 06:30-0400 Body temperature 98.29 [degF] Manuel Conner MD Work Phone: [employer] Work Phone: Encounters Encounter Date Encounter Type Care Provider Facility Start: 09-28-2022 AUDIT Michael Carballo Work Phone: CD-Exsefcstaq-Paomjify SJW 260 DO Work Phone: Start: 07-24-2022 End: 07-24-[address] MICHAEL CARBALLO . Facility:[facility] Start: 07-15-2022 End: 07-15-[address] MICHAEL CARBALLO . Facility: Start: 07-13-2022 Patient encounter procedure Michael Carballo Work Phone: MD-Xcyhiznlpb-TNG [place] [address] Work Phone: Start: 07-13-2022 Phys/qhp telephone evaluation 11-20 min Michael Carballo Work Phone: RB-Nwjzyorolw-AUQ [place] [address] Work Phone: Start: 07-13-2022 ambulatory MD SCOUT ROMO Facility:[facility] Start: 07-13-2022 End: 07-13-[address] MICHAEL CARBALLO . Facility: Start: 07-09-2022 AUDIT Michael Carballo Work Phone: ID-Iwuuuxfnoo-KQI [place] [address] Work Phone: Start: 06-08-2022 ambulatory Facility:[facility] Start: 06-05-2022 End: 06-05-[address] MICHAEL CARBALLO . Facility: Start: 06-04-2022 End: 06-04-[address] MICHAEL CARBALLO . Facility: Start: 04-14-2022 End: 04-15-2022 ambulatory DONNA ARELLANO [facility] Start: 04-14-2022 End: 04-14-2022 Subsequent hospital visit by physician Michael Carballo Work Phone: [facility] Start: 10-30-2021 End: 10-31-2021 ambulatory Manfred Wilson Facility:[facility] Start: 10-28-2021 End: 10-28-[address] MICHAEL CARBALLO . Facility: Start: 10-15-2021 Patient encounter procedure Michael Carballo Work Phone: QC-Zszttmnrht-JWY [facility] [address] [place] Work Phone: Start: 10-15-2021 ambulatory DO FELICIA ASTORGA Facility:[facility] Start: 08-05-2021 End: 08-06-[address] MICHAEL CARBALLO . Facility: Start: 07-16-2021 Office outpatient vi sit 25 minutes Michael Carballo Work Phone: HJ-Poyxuaihox-DAC [facility] [address] [place] Work Phone: Start: 07-16-2021 Patient encounter procedure Michael Carballo Work Phone: HK-Kupaxeeibi-HRL [facility] [address] [place] Work Phone: Start: 06-27-2021 End: 07-03-2021 [id number] Start: 06-25-2021 End: 06-27-2021 Evaluation and management of inpatient MD Michael Carballo Work Phone: [facility] Start: 06-25-2021 Patient encounter procedure Michael Carballo Work Phone: UQ-Puynxdyhhr-UXT [facility] [address] [place] Work Phone: Start: 06-24-2021 End: 06-24-2021 Patient encounter procedure MD Michael Carballo Work Phone: [facility] Start: 05-28-2021 AUDIT Michael Carballo Work Phone: FJ-Actolifchi-UYN [facility] [address] [place] Work Phone: Start: 05-27-2021 End: 05-27-2021 Patient encounter procedure MD Michael Carballo Work Phone: [facility] Start: 01-01-2021 Patient encounter procedure Michael Carballo Work Phone: MT-Gucoksymgb-LAO [facility] [address] [place] Work Phone: Start: 01-01-2021 WANG, Provider : Felicia Astorga, Status: Pen, Time: 2:20 PM Michael Carballo Work Phone: VD-Mymuqrnudq-Qtgnlayi [facility] 260 DO Work Phone: Start: 12-31-2020 AUDIT Michael Carballo Work Phone: AU-Snfpyrelbi-Ybhnfkje [facility] 260 DO Work Phone: Start: 12-17-2020 End: 12-19-2020 Emergency department patient visit Manuel Conner MD Work Phone: [facility] ED Comment on above: Freeland coma scale t otal score 13-15, at hospital admission (Primary Dx); Acute kidney injury (HCC); Heart replaced by transplant (HCC); Confusion Start: 11-21-2020 AUDIT Michael Carballo Work Phone: XC-Nrzdqhgqkc-TJE [facility] [address] [place] Work Phone: Start: 10-31-2020 AUDIT Michael Carballo Work Phone: [facility] Work Phone: Procedures Date Procedure Procedure [...] heart recipient Heart repla vaibhav by transplant ([facility]) Manuel Conner MD Work Phone: H/O: heart [...] Montse Villanueva, Status: Pen, Time: 2:00 PM ZV-Xpwhboyzqf-ZMO [place] [address] Work Phone: Start: 07-13-2022 VIRFUCORI, Provider : Scout Romo, Status: Pen, Time: 1:40 PM VIRFUVHOME, Provider: Scout Romo, Status: Pen, Time: 1:40 PM EX-Pvqaxkewyi-DJU [place] [address] Work Phone: Start: 04-01-2022 VIRFUCORI, Provider : Felicia Astorga, Status: Pen, Time: 1:00 PM VIRFUCORI, Provider: Felicia Astorga, Status: Pen, Time: 1:00 PM UZ-Uubxtzybwy-BCJ [facility] [place] Work Phone: Start: 12-19-2021 Creatinine measurement Creatinine [facility] Work Phone: Start: 12-19-2021 Potassium monitoring Potassium monit [facility] Work Phone: Start: 10-20-2021 Influenza vaccination Flu vaccine (# 1) [facility] Start: 07-16-2021 Patient encounter procedure [facility] Start: 07-03-2021 End: 07-04-2022 Insulin Glargine (Lantus) Injectable Subcutaneous Once ; DOSE = 12 unit(s) SubCutaneous At BedtimeNotes from Pharmacy: HIGH ALERT [facility] Start: 03-Jul-2021 End: 03-Jul-2022 Ordered: 03-Jul-2021 Magy Galeas Intent [facility] Start: 07-01-2021 End: 07-02-2022 [facility] Comment on above: IF patient HAS a [...] End: 30-Jun-2022 Ordered: 30-Jun-2021 Jihan Storm Intent [facility] Start: 06-27-2021 End: 06-28-2022 Sodium Chloride 0.9% Injectable Flush Peripheral Line ; via Peripheral LineVolume = 10 mL IntraVenous Flush Every 8 Hours and as Needed Start: 27-Jun-2021 End: 27-Jun-2022 Ordered: 26-Jun-2021 Magy Galeas Intent [facility] Start: 06-26-2021 Duplex scan of upper limb arteries US arterial duplex UE [facility] Start: 12-17-2020 Annual Wellness Visi t (AWV) Annual Wellness Visit (AWV) [facility] [employer] Start: 11-20-2020 Influenza vaccination Flu vaccine (# 1) [facility] Phone: Start: 07-16-2020 COVID-19 Vaccine (3 - Pfizer risk 3-dose series) COVID-19 Vaccine (3 - Pfizer risk 3-dose series) [employer] Phone: Start: 07-16-2020 COVID-19 Vaccine (3 - Pfizer risk series) COVID-19 Vaccine (3 - Pfizer risk series) [facility] [employer] Start: 10-01-2016 Pneumococcal 65+ yrs at Risk Vaccine (2 of 2 - PCV13) Pneumococcal 65+ yrs at Risk Vaccine (2 of 2 - PCV13) [employer] Phone: Start: 10-10-1993 Shingles Vaccine (1 of 2) Shingles Vaccine (1 of 2) [employer] Phone: Start: 10-10-1962 DTaP/Tdap/Td vaccine (1 - Tdap) DTaP/Tdap/Td vaccine (1 - Tdap) [facility] Start: 10-10-1962 Shingles vaccine (1 of 2) Shingles vaccine (1 of 2) [facility] [employer] Start: 10-10-1961 Hepatitis C screening Hepatitis C [facility] [employer] Start: 1955 Depression Screen Depression Screen [facility] Start: 10-10-1953 Lipid panel [facility] Start: 1943 Hepatitis C [facility] Work Phone: Calcium [Mass/volume ] in Serum or Plasma [facility] Work Phone: Carbon dioxide, tota l [Moles/volume] in Serum or Plasma [facility] Work Phone: Chloride [Moles/volu me] in Serum or Plasma [facility] Work Phone: Creatinine and Glomerular filtration rate.predicted panel - Serum, Plasma or Blood [facility] Work Phone: Culture, Blood [facility] Work Phone: Culture, Wound Culture, Wound Microbiology Routine 04/14/2022 3:25 PM EST [facility] Work Phone: Glucose [Mass/volume ] in Serum or Plasma [facility] Work Phone: Goals of care, counseling/discussion [facility] Measurement of renal function [facility] Work Phone: Potassium [Moles/volume] in Serum or Plasma [facility] Work Phone: Sodium [Moles/volume ] in Serum or Plasma [facility] Work Phone: Tacrolimus [Mass/volume] in Blood [facility] Work Phone: End: 12-18-2020 Tacrolimus Level [facility] Work Phone: Comment on above: One Time for 1 Occur rences starting 12/18/2020 until 12/18/2020 End: 12-19-2020 Tacrolimus Level Tacrolimus Level Lab Routine One Time for 1 Occurrences starting 12/19/2020 until 12/19/2020 [facility] Work Phone: Comment on above: One Time for 1 Occur rences starting 12/19/2020 until 12/19/2020 Tacrolimus Level [facility] Work Phone: Urea nitrogen [Mass/volume] in Serum or Plasma [facility] Work Phone: Immunizations Immunization Date Immunization Notes Care Provider Fa cility 03-21-2021 Pfizer-BioNTech COVI D-19 Vacc 30 MCG/0.3ML Intramuscular Suspension Michael Carballo Work Phone: DI-Fdgwdwhzbu-RBX [facility] [address] [place] Work Phone: 06-18-2020 Pfizer-BioNTech COVI D-19 Vacc 30 MCG/0.3ML Intramuscular Suspension Michael Carballo Work Phone: [facility] Work Phone: 05-27-2020 Pfizer-[employer]maniacs COVI D-19 Vacc 30 MCG/0.3ML Intramuscular Suspension Michael Candelario Haris Work Phone: [facility] Work Phone: 12-29-2019 Seasonal trivalent influenza vaccine, adjuvanted, preservative free Michael Palomino Haris Work Phone: [facility] Work Phone: 12-22-2017 Seasonal trivalent influenza vaccine, adjuvanted, preservative free Michael Palomino Haris Work Phone: [facility] Work Phone: 12-28-2016 Seasonal trivalent influenza vaccine, adjuvanted, preservative free Michael Palomino Haris Work Phone: [facility] Work Phone: 12-24-2015 influenza, high dose seasonal, preservative-free Michael Palomino Haris Work Phone: [facility] Work Phone: 10-02-2015 influenza, seasonal, injectable Mcihael Palomino Haris Work Phone: [facility] Work Phone: 10-02-2015 pneumococcal polysaccharide vaccine, 23 valent Micheal Palomino Haris Work Phone: [facility] Work Phone: 01-09-2015 influenza, injectabl e, quadrivalent, contains preservative Michael Palomino Haris Work Phone: [facility] Work Phone: 01-03-2013 influenza, seasonal, injectable Michael Palomino Haris Work Phone: [facility] Work Phone: 01-07-2009 influenza virus vacc ine, whole virus Michael Palomino Haris Work Phone: [facility] Work Phone: 01-20-2005 influenza virus vacc ine, whole virus Michael Palomino Carballo Work Phone: [facility] Work Phone: Payers Date Payer Category Payer Self-pay [id number] 1961 Medicaid [id number] 1961 Medicare [id number] 1961 Medicare [id number] 1959 Private Health Insurance [id number] 1943 Unknown [id number] 2.16.8 [id number] 1943 Unknown [id number] 2.16.84 [id number] 1943 Unknown [id number] 2.16.84 [id number] 1943 Unknown [id number] 2.16.84 [id number] 1943 Unknown [id number] 2.16.84 [id number] 1943 Unknown [id number] 2.16.84 [id number] 1943 Unknown [id number] 2.16.84 [id number] 1943 Unknown [id number] 2.16.84 [id number] 1943 Unknown [id number] 2.16. [id number] 1943 Unknown [id number] 2.16. [id number] Unknown Unknown [id number] 2.16.8 [id number] Social History Date Type Detail Facility Former smoker Former smoker [facility] Work Phone: Start: 12-17-2020 Tobacco smoking stat us TNIS Unknown if ever smoked [employer] Work Phone: Start: 1945 Sex Assigned At Not on file M [facility] Work Phone: Exposure to SARS-CoV -2 (event) Unable to assess [employer] Start: 12-13-2020 [facility] (finding[facility] Start: 1945 Sex Assigned At Male F [facility] Start: 06-26-2021 End: 06-26-2021 Tobacco smoking status NHIS Ex-smoker (finding) [facility] End: 03-22-1996 History of tobacco use [facility] Work Phone: Goals Date Patient Goal Desired Activity /State Functional Status Date Assessment Result Facility 06-27-2021 Functional status Patient at Baseline [facility] Work Phone: Functional observable [facility] Mental Status Date Assessment Result Facility 06-30-2021 Cognitive functi ons [id number] [facility] 06-27-2021 Cognitive function Cognitive Sta tus Patient at Baseline [facility] Work Phone: Clinical Notes 07-05-2000 to 07-03-2021 <item><item><item><item><item><item><item><item><item> Note Date & Type Note Facility 07-03-2021 Hospital Discharge instructions Activity:activity with assistance. May shower.Labs 1 (Modify Template):Lab Test(s): Basic Metabolic Panel, CBC, Tacrolimus levelDate To Be Drawn: 07/07/2021all Results To: Dr. Felicia Moore Results To: [id number] Orders:Blood Glucose Monitoring: ACHSAdditional Instructions: Use of [...] Uncontrolled diabetesCall to Schedule in: 2 weeksLocation: [facility]: [facility] Up Appointment 2:Physician/Dept/Service: Dr. Felicia Astorga / Heart failure and transplantReason for Referral: hospital follow-upLocation: Heather 1800Comments: Our office will call you to set up an appointment either in person or virtually. [facility] 06-27-2021 Discharge summary Note Date/Time June 27, 2021 10:32am [facility] [address] [place] [address] Discharge Summary Signed Patient: Oliverio Escobedo MR#: [id number] : 1945 Acct:[id number] Age/Sex: 75 / M Adm Date: 2 Loc: 3T Room: [address] [place] [address]: Yoshi Hernandez MD Copies to: MD Manfred Olvera([facility] Providers Date of Discharge: 06/27/21 Discharging [...] 1 tab PO BID RF: 0 omega 3-aym-sjj-fish oil [Fish Oil] 1,000 mg (120 mg-180 [...] by Yoshi Hernandez MD> 06/27/21 1032 [facility] Work Phone: 1(836) 728-262204-08-2022 Progress note Author Bonilla Ortiz [facility] June 27, 2021 10:27am Note Date/Time June 27, 2021 10:2 7am [facility] [address] [place] [address] Cardiology Progress Note Signed Patient: Oliverio Escobedo MR#: [id number] : 1945 Acct:[id number] Age/Sex: 75 / M Adm Date: 2 Loc: 3T Room: [address] [place] [address] Type : ADM INOo Attending Dr: Yoshi Hernandez MD Copies to: ~ Date of Service: 06/27/2021 Subjective Principal diagnosis: Edema w history of orthotopic heart transplant Interval history: Mr. Escobedo is a 75 year old male with known history of orthotopic heart transplantation in 2000 done at [facility] who was admitted to the inpatient hospitalist service last night after presenting from the [facility] with complaints of increasing swelling in [...] by the transplant service at [facility]. At this point we are awaiting [...] Agree with transfer to transplant service at [facility] for further management. Plan Thank you very much for this kind consultation and for allowing me to participate in the care of this very pleasant patient. Time spent with patient Time Spent With Patient (min): 20 Documented By: Bonilla Ortiz MD 06/27/21 1024 Signed By: <Electronically signed by Bonilla Ortiz MD> 06/27/21 1027 [facility] Work Phone: 1(509) 165-692804-07-2022 Progress note Author Yoshi Wu [facility] June 26, 2021 6:27pm Note Date/Time June 26, 2021 6:27 pm [facility] [address] [place], [place] [id number] Hospitalist Progress Note Signed Patient: Oliverio Escobedo MR#: [id number] : 1945 Acct:[id number] Age/Sex: 75 / M Adm Date: 2 Loc: Room: [address] [place] [address] Type : ADM INOo Attending Dr: Yoshi [...] Oil 1,000 mg 06/26/21 09:00 06/26/21 09:01 [place]-3/Fish Oil 1,000 Mg Capsule PO 06/26/22 08:59 [...] signed by Yoshi Hernandez MD> 06/26/21 182 [facility] Work Phone: 1(760) 353-382404-07-2022 Consult note Author Bonilla Ortiz [facility] June 26, 2021 2:26pm Note Date/Time June 26, 2021 2:23 pm [facility] [address] [place] [address] Cardiology Consult Note Signed Patient: Oliverio Escobedo MR#: [id number] : 1945 Acct:[id number] Age/Sex: 75 / M Adm Date: 2 Loc: 3T Room: [address] [place] [address] Type : ADM INOo Attending Dr: Yoshi Hernandez MD Copies to: MD Manfred Olvera([facility]) DO Bonilla Wilson MD~ Cardiology HPI History of Present Illness Consult Date: 06/26/21 Reason for Consult: Bilateral lower extremity swelling Remote history of orthotopic heart transplantation HPI: Mr. Escobedo is a 75 year old male with known history of orthotopic heart transplantation in 2000 done at [facility] who was admitted to the inpatient hospitalist service last night after presenting from the [facility] with complaints of increasing swelling in [...] the results were sent to his transplant spreader operator automatic in [place]. She doesnot know the results. On my evaluation the patient was undergoing bedside transthoracic echocardiography. Preliminary interpretation of the study shows normal resting left ventricular regional wall motion and systolic function. Ejection fraction appears greater than 55%. There is no notable pericardial or pleural effusion. There is no notable/significant valvular heart disease noted. By report the patient's transplant service at [facility] has been contacted and is [...] PO BID 02/02/17 [History Confirmed 06/25/21] omega 6-ent-rwa-fish oil 1,000 mg (120 mg-180 mg) capsule [...] x10E3/uL Lymph # (Auto) 1.0 (1.00-4.8) x10E3/uL [place] # (Auto) 0.5 (0.0-0.8) x10E3/uL Eos # [...] Agree with transfer to transplant service at [facility] for further management. Code(s): Z94.1 - Heart transplant status Plan Thank you very much for this kind consultation and for allowing me to participate in the care of this very pleasant patient. Documented By: Bonilla Ortiz MD 06/26/21 1415 Signed By: <Electronically signed by Bonilla Ortiz MD> 06/26/21 1426 [facility] Work Phone: 1(257) 839-205204-07-2022 History and physical note Author Omid Myrick [facility] June 26, 2021 7:44am Note Date/Time June 26, 2021 12:1 6am [facility] [address] [place], [place] [address] Hospitalist H&P Signed Patient: Oliverio Escobedo MR#: [id number] : 1945 Acct:[id number] Age/Sex: 75 / M Adm Date: 2 Loc: 3T Room: [address] [place] [address] Type : ADM INOo Attending Dr: Yoshi Hernandez MD Copies to: MD Manfred Olvera([facility]) DO Audra Wilson APRN Marwan Wassouf, MD~ [...] been trying to schedule an appointment with [facility] spreader operator automatic but were unable. Patient is hard of [...] PO BID 02/02/17 [History Confirmed 06/25/21] omega 0-tzv-zkg-fish oil 1,000 mg (120 mg-180 mg) capsule [...] % (Auto) 12.9 % (.) 06/25/21 19:30 [place] % (Auto) 7.3 % (.) 06/25/21 19:30 Eos % (Auto) 4.6 % (.) 06/25/21: Baso % (Auto) 0.6 % (.) 06/25/21: Neut # (Auto) 5.6 x10E3/uL (1.8-7.7) 06/25/21 19: Lymph # (Auto) 1.0 x10E3/uL (1.00-4.8) 06/25/21 19:30 [place] # (Auto) 0.5 x10E3/uL (0.0-0.8) 06/25/21 19: [...] MD Documented By: Audra Quinteros APRN 06/25/21 2277 Signed By: <Electronically signed by GABBIE Quinteros> 06/26/21 0057 <Electronically signed by Omid Myrick MD> 06/26/21 6180 [facility] Work Phone: 1([phone]) 771-156909-30-2021 Evaluation note* Diagnosis Namrata coma scale total score 13-15, at hospital admission- Primary Acute kidney injury (HCC) Acute kidney failure, unspecified Heart replaced by transplant (HCC) Heart replaced by transplant Confusion Unspecified psychosis documented in this encounter [facility] Work Phone: 1(848) 676-202809-30-2021 History of Present illness Narrative* 74 yo [...] Hx/DSAs: None documented * Last echo: 12/20/20 BC-Rvtjnspsbn-CIY [facility] [address] [place] Work Phone: [phone]) [phone] History of Present illness Narrative* Liliya Baker RN - 12/17/2020 10:31 AM EDT Spoke with nurse from [facility] at this time. They will fax lab work to us from [facility]. documented in this [facility] Work Phone: [phone] 430-165604-16-2001 History of Present illness Narrative* Mr. Escobedo [...] Hx/DSAs: None documented * Last echo: 12/20/20 FV-Lycbmdinfs-JVM [facility] [address] Work Phone: Chief complaint Narrative [...] 04:20 PM , for a telehealth visit. OT-Pmxelqwnil-WLE [facility] [address] [place] Work Phone: Evaluation noteNo assessment information available [facility] Work Phone: Evaluation note* Diagnosis Onset Date Resolution Status Acute kidney injury acute Bilateral edema of lower extremity acute Shortness of breath acute [facility] Work Phone: Evaluation note* Diagnosis Onset Date Resolution Status Acute kidney injury acute Bilateral edema of lower extremity acute History of heart transplant acute Shortness of breath acute [facility] Work Phone: Evaluation note* Psychological: Appropriate [...] distress, alert and cooperative, hard of hearing [facility]* Mr. Escobedo is [...] Hx/DSAs: None documented * Last echo: 12/20/20 CH-Fntbiczcsa-RIW [place] [address] [place] Work Phone: History of Present [...] Hx/DSAs: None documented * Last echo: 12/20/20 YP-Exdfijyqec-HVX [place] [address] [place] Work Phone: History of Present [...] Hx/DSAs: None documented * Last echo: 12/20/20 JW-Cgixunggnb-OBI [facility] [address] [place] Work Phone: History [...] Hx/DSAs: None documented * Last echo: 12/20/20 XQ-Hdpafbxned-SPU [facility] [address] [place] Work Phone: History [...] BPs at the [facility] 120-130s/70-80s. * Benadryl 25 mg q6h PRN for itching/dry skin. * Immunosuppression: MMF 250 mg BID, tacrolimus 1.5 mg BID (FK 5.5 on 07/03/21, goal 5-8) - FK level pending from 10/11/21 * Rejection Hx/DSAs: None documented * Last echo: 12/20/20 CL-Dkvmgdarej-ZHD [facility] [address] [place] Work Phone: Reason for referral (narrative)* Reason for Referral: HF, DAVID, scabies [facility] Family History No Family History Records FoundUnknown [...] content) Reason Comments Altered Mental Status onset [employer] FARMWORK[employer]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; staff state pt would not respond and stared off into space Hypotension [employer]AL FARMWORK[employer] staff from [facility] rn state BP 70s/ANGELICA diastolic Scheduled [...] is suspension with MINIMUM of SIZE 8 MALIAN 1500 (Given - Provider: Sola Dee RN)[id number] [...] Active Yoshi Hernandez MD Attending Provider Active Commissioned Police 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 [facility] [employer] [facility]. provides no warranty or guarantee of the accuracy or completeness of information in this document.
[2023-10-08 10:43] LABS: Bilirubin Urine NEGATIVE (NEGATIVE); Blood Urine NEGATIVE (NEGATIVE); Clarity Urine CLEAR (CLEAR); Color Urine LT. YELLOW (YELLOW); Glucose Urine UA NEGATIVE (NEGATIVE); Ketones Urine NEGATIVE (NEGATIVE); Leukocyte Esterase Urine NEGATIVE (NEGATIVE); Nitrite Urine NEGATIVE (NEGATIVE); Protein Urine >=300 mg/dL (NEG/TRACE); Urobilinogen Urine 0.2 EU/dL (0.2-1.0)
[2023-10-08 10:45] LABS: Urine Microscopic Indicated YES
[2023-10-08 11:14] LABS: Bacteria Urine NONE SEEN #/HPF (NONE SEEN); Cast Seen? NONE SEEN #/LPF (NONE SEEN); Crystals Seen? None Seen #/HPF (None Seen); Mucus Urine NONE SEEN (NONE SEEN); RBC Urine 0-2 #/HPF (0-2); Squamous Epithelial Cell Urine NONE SEEN #/LPF (NONE/RARE); WBC Urine 0-2 #/HPF (NONE SEEN)
== END 2023-10-07 05:46 | disposition home or self-care (01) ==
LOC: LAB 05:45
PROVIDERS: Visit Provider Family Medicine
DX: R30.0 Dysuria (principal); R41.0 Disorientation, unspecified
CPT/HCPCS: 81001

== ENCOUNTER 2023-11-02 19:30 | Outpatient (REF) | payer MEDICARE, SELFPAY ==
[2023-11-03 09:30] LABS: Bilirubin Urine NEGATIVE (NEGATIVE); Blood Urine TRACE-I (NEGATIVE); Clarity Urine SL CLOUDY (CLEAR); Color Urine LT. YELLOW (YELLOW); Glucose Urine UA NEGATIVE (NEGATIVE); Ketones Urine NEGATIVE (NEGATIVE); Leukocyte Esterase Urine NEGATIVE (NEGATIVE); Nitrite Urine NEGATIVE (NEGATIVE); Protein Urine >=300 mg/dL (NEG/TRACE); Specific Gravity Urine 1.025 (1.005-1.025); Urobilinogen Urine 0.2 EU/dL (0.2-1.0)
[2023-11-03 09:32] LABS: Urine Microscopic Indicated YES
--- OUTSIDE RECORDS SUMMARY | 2023-11-03 09:40 | XMS_ITS | CCD ---
Author Organization [facility] Care Team Providers Care Associate Professor Of English Name Role Phone Michael Carballo Unavailable Unavailable Unavailable Michael Carballo Primary Care Provider MD Michael Carballo Primary Care Provider JIL Davies Attending Provider DO Manfred Wilson Primary Care Provider [facility] Andrew Hernández Emergency Provider MD [...] Translations: [allopurinol] Drug Allergy 10-16-2018 [facility] (8 sources) ceFAZolin; Translations: [Cefazolin] Drug Allergy 06-25-2021 Rash, [facility] Comment on above: extensive fiery red and warm flat rash (1 source) Allopurinol Drug Allergy [facility] (1 source) ceFAZolin Drug Allergy [facility] (1 source) Allopurinol Drug Allergy 06-25-2021 [facility] Repository Medications Current Medications Medication Drug [...] mg Start: 11-03-2018 take 1 capsule by [facility] once daily in the evening dilTIAZem HCl ER Coated Beads 300 MG Oral Capsule Extended Release 24 Hour take 1 capsule every evening Quantity: 0 Refills: 0 Ordered: 04-Jul-2021 Felicia Astorga DO Start : 03-Nov-2018 Active Start: 11-03-2018 take 1 capsule by [facility] once daily dilTIAZem HCl ER Coated Beads 360 MG Oral Capsule Extended Release 24 Hour TAKE 1 CAPSULE Daily Quantity: 30 Refills: 11 Ordered: 03-Nov-2018 Felicia Astorga DO Start : 03-Nov-2018 Active Start: 11-03-2018 take 1 capsule by [facility] once daily dilTIAZem HCl ER Coated Beads 240 MG Oral Capsule Extended Release 24 Hour TAKE 1 CAPSULE Daily Quantity: 90 Refills: 3 Ordered: 24-Dec-2020 Felicia Astorga DO Start : 03-Nov-2018 Active Start: 10-31-2018 take 1 capsule by [facility] every twenty-four hours dilTIAZem 240 mg/24 hours [...] Start: 11-02-2018 take 1 capsule by [facility] every twelve hours Mycophenolate Mofetil 250 MG [...] Tamiko Dsouza Status: Discontinued Generic Substitution Allowed [place] 3-Zuw-Eyy-Fish Oil (Fish Oil) 1,000 mg (120 mg-180 mg) Capsule (4 sources) Start: 08-05-2017 take 1 tablet by mouth twice daily [place] 3-Pgh-Hnr-Fish Oil (Fish Oil) 1,000 mg (120 mg-180 mg) Capsule Active 1 TAB PO Twice daily August 05, 2017 11:13am Start: 08-05-2017 take 1 tablet by anila th once daily [place] 6-Ewy-Enc-Fish Oil (Fish Oil) 1,000 mg (120 mg-180 mg) Capsule Active 1 TAB PO Daily August 05, 2017 11:13am Start: 08-05-2017 take 1 tablet by anila th twice daily [place] 4-Imx-Vax-Fish Oil (Fish Oil) 1,000 mg (120 mg-180 [...] tube 2 times a day only on Vwatdq-Jrvxjulyn-Ipxlxj Quantity: 24 Refills: 0 Ordered: 21-Jan-2016 Warren [...] liver damage. take [address] [facility] every six hours as [...] Start: 10-15-2021 take [address] [facility] once daily busPIRone HCl - 10 MG Oral Tablet TAKE 2 TABLET Daily Quantity: 0 Refills: 0 Ordered: 15-Oct-2021 DO Start : 15-Oct-2021 Active take 1 [facility] busPIRone (BUSPAR) 15 MG [...] Start: 10-31-2018 take 1 capsule by [facility] every six hours as needed diphenhydrAMINE 25 [...] 1 capsule by mouth twice da padmaja [place]-3 Fatty Acids (FISH OIL) 1000 MG CAPS [...] if Blood Glucose is between 251 - 90210 unit(s) if Blood Glucose is between 301 - 37516 unit(s) if Blood Glucose is between 351 [...] if Blood glucose is between 301 - 06199 unit(s) if Blood glucose is between 351 [...] 02-Jul-2021 Generic Substitution Allowed polyethylene glycol 3350 36063 mg powder for oral solution (7 sources) Osmotic Laxative Start: 10-15-2021 MiraLax Mix-I n [place] 17 GM Oral Packet MIX 1 PACKET [...] Start: 07-02-2021 take 1 capsule by [facility] every twelve hours Tacrolimus 1 MG Oral [...] right upper extremity 06-30-2021 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 07-02-2021 Past or Other Problems Problem Classification Problem Date Documented Da te Episodic/Chronic Other gastrointestinal disorders (1 source) Dysphagia, unspecified; Translations: [DYSPHAGIA UNSPECIFIED] Onset: 08-08-2021 Episodic 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 (1 source) SWELLING UPPER/LOW EXTREMITIES 06-27-2021 Comment on above: SWELLING UPPER/LOW E XTREMITIES Results Test Name Value Interpretation Reference Range Facility [facility] 09-14-2022 Lab Reports [id number]:127 Normal [facility] VIT D 25-OH LABCORPon 2022 Vitamin D, 25-Hydroxy 29.5 ng/mL Critically low 30.0-100.0 [facility] Comment on above: Result Comment: Jennifer min D deficiency has been defined by the [place] of [employer] and an Endocrine Society practice guideline as a level of serum 25-OH vitamin D less than 20 ng/mL (1,2). The Endocrine Society went on to further define vitamin D insufficiency as a level between 21 and 29 ng/mL (2). 1. IOM ([place] of Medicine). 2010. Dietary reference intakes for calcium and D. [place]: The National Academies Press. 2. Ely MF, Brad NC, Kristy ORTEGA, et al. Evaluation, treatment, and prevention of vitamin D deficiency: an Endocrine Society clinical practice guideline. JCEM. 2010; 96(7):1911-30. Performed By: #### V ITADLC #### [facility] [address] [place] [address] Dr. Ronnie Pennington CBC AUTO DIFFon 07-24-2022 BASO # 0.0 103/ul Normal 0.0-0.1 [facility] Comment on above: Performed By: #### C BC #### [facility] [id number] Ronnie Pennington Basophils/100 WBC (Bld) 0.6 % Normal 0.2-2.0 [facility] Comment on above: Performed By: #### C BC #### [facility] [address] [address] [address] Ronnie Pennington EO # 0.1 103/ul Normal 0.0-0.7 [facility] Comment on above: Performed By: #### C BC #### [facility] [address] [address] [address] Ronnie Pennington Eosinophils/100 WBC (Bld) 2.0 % Normal 0.9-7.0 [facility] Comment on above: Performed By: #### C BC #### [facility] [address] [place] [address] Dr. Ronnie Pennington Erythrocyte distribution width (RBC) [Ratio] 13.2 % Normal 11.0-15.0 [facility] Comment on above: Performed By: #### C BC #### [facility] [address] [place] [address] Dr. Ronnie Pennington Hematocrit (Bld) [Volume fraction] 33.3 % Critically low 42.0-54.0 [facility] Comment on above: Performed By: #### C BC #### [facility] [address] [place] [address] Dr. Ronnie Pennington Hemoglobin (Bld) [Mass/Vol] 10.0 g/dL Critically low 14.0-18.0 [facility] Comment on above: Performed By: #### C BC #### [facility] [address] [address] [address] Ronnie Pennington IG # 0.04 10e3/ul Critically high 0.00-0.03 [facility] Comment on above: Performed By: #### C BC #### [facility] [address] [address] [address] Ronnie Pennington IG % 0.6 % Critically high 0.0-0.5 [facility] Comment on above: Performed By: #### C BC #### [facility] [address] [place] [address] Dr. Ronnie Pennington LYMPH # 1.2 103/ul Normal 1.2-3.8 [facility] Comment on above: Performed By: #### C BC #### [facility] [address] [place] [address] Dr. Ronnie Pennington Lymphocytes/100 WBC (Bld) 17.9 % Critically low 20.5-60.0 [facility] Comment on above: Performed By: #### C BC #### [facility] [address] [place] [address] Dr. Ronnie Pennington MANUAL DIFF REQ NO Normal [facility] Comment on above: Performed By: #### C BC #### [facility] [address] [place] [address] Dr. Ronnie Pennington MCH (RBC) [Entitic mass] 28.2 pg Normal 25.9-34.0 [facility] Comment on above: Performed By: #### C BC #### [facility] [address] [place] [address] Dr. Ronnie Pennington MCHC (RBC) [Mass/Vol] 30.0 g/dL Normal 29.9-35.2 [facility] Comment on above: Performed By: #### C BC #### [facility] [address] [place] [address] Dr. Ronnie Pennington MCV (RBC) [Entitic vol] 94.1 fL Critically high 80.0-94 .0 [facility] Comment on above: Performed By: #### C BC #### [facility] [address] [place] [address] Dr. Ronnie Pennington MONO # 0.4 103/ul Normal 0.3-0.8 [facility] Comment on above: Performed By: #### C BC #### [facility] [address] [place] [address] Dr. Ronnie Pennington Monocytes/100 WBC (Bld) 6.5 % Normal 1.7-12.0 [facility] Comment on above: Performed By: #### C BC #### [facility] [address] [place], [place] [id number] Dr. Ronnie Pennington NEUT # 4.8 103/ul Normal 1.4-6.5 [facility] Comment on above: Performed By: #### C BC #### [facility] [address] [place] [address] Dr. Ronnie Pennington Neutrophils/100 WBC (Bld) 72.4 % Normal 43.0-75.0 [facility] Comment on above: Performed By: #### C BC #### [facility] [address] [place] [address] Dr. Ronnie Pennington Platelet mean volume (Bld) [Entitic vol] 11.7 fL Normal 9.5-13.5 [facility] Comment on above: Performed By: #### C BC #### [facility] [address] [place] [address] Dr. Ronnie Pennington PLT 137 103/ul Critically low 150-450 [facility] Comment on above: Performed By: #### C BC #### [facility] [address] [place] [address] Dr. Ronnie Pennington RBC 3.54 106/ul Critically low 4.70-6.10 [facility] Comment on above: Performed By: #### C BC #### [facility] [address] [place] [address] Dr. Ronnie Pennington WBC 6.6 103/ul Normal 4.0-11.0 [facility] Comment on above: Performed By: #### C BC #### [facility] [address] [place] [address] Dr. Ronnie Pennington GLYCOHEMOGLOBIN A1Con 2022 ADA RECOMMENDATION SEE BELOW Normal [facility] Comment on above: Result Comment: ADA RECOMMENDED LIMIT 4.0 - 6.0 ADA THERAPEUTIC TARGET < 7.0 ACTION SUGGESTED > 7.0 Performed By: #### A 1C #### [facility] [address] [place] [address] Dr. Ronnie Pennington Glucose [Mass/Vol] 171 mg/dL Normal [facility] Comment on above: Performed By: #### A 1C #### [facility] [address] [place] [address] Dr. Ronnie Pennington HbA1c (Bld) [Mass fraction] 7.6 % Critically high 4.5-6.2 [facility] Comment on above: Performed By: #### A 1C #### [facility] [address] [address] [address] Ronnie Pennington MAGNESIUMon 07-24-2022 Magnesium [Mass/Vol] 2.3 mg/dL Normal 1.8-2.4 [facility] Comment on above: Performed By: #### M G, TSH, CMP ####[facility] [address] [address]DrFreddy Pennington PROF 14(COMP METB)on 023 Albumin [Mass/Vol] 2.8 g/dL Critically low 3.4-5.0 [facility] Comment on above: Performed By: #### M G, TSH, CMP ####[facility] [address] [address]DrFreddy Pennington Albumin/Globulin [Mass ratio] 0.7 {ratio} Normal [facility] Comment on above: Performed By: #### M G, TSH, CMP ####[facility] [address] [address]Dr. Ronnie Pennington ALP [Catalytic activity/Vol] 69 U/L Normal 46-116 [facility] Comment on above: Performed By: #### M G, TSH, CMP ####[facility] [address] [address]DrFreddy Pennington ALT [Catalytic activity/Vol] 8 U/L Critically low 16-63 [facility] Comment on above: Performed By: #### M G, TSH, CMP ####[facility] [address] [id number]. Ronnie Pennington Anion gap [Moles/Vol] 9.9 mmol/L Normal [facility] Comment on above: Performed By: #### M G, TSH, CMP ####[facility] [address] [address]Dr. Ronnie Pennington AST [Catalytic activity/Vol] 9 U/L Critically low 15-37 [facility] Comment on above: Performed By: #### M G, TSH, CMP ####[facility] [address] [address]Dr. Ronnie Pennington Bilirubin [Mass/Vol] 0.2 mg/dL Normal 0.2-1.0 [facility] Comment on above: Performed By: #### M G, TSH, CMP ####[facility] [address] [place], [place] [address]Dr. Ronnie Pennington Calcium [Mass/Vol] 8.9 mg/dL Normal 8.5-10.1 [facility] Comment on above: Performed By: #### M G, TSH, CMP ####[facility] [address] [place], [place] [address]Dr. Ronnie Pennington Chloride [Moles/Vol] 104 mmol/L Normal 98-107 [facility] Comment on above: Performed By: #### M G, TSH, CMP ####[facility] [address] [place], [place] [address]Dr. Ronnie Pennington CO2 [Moles/Vol] 28.4 mmol/L Normal 21.0-32.0 [facility] Comment on above: Performed By: #### M G, TSH, CMP ####[facility] [address] [place], [place] [address]Dr. Ronnie Pennington Creatinine [Mass/Vol] 2.09 mg/dL Critically high 0.70-1.30 [facility] Comment on above: Performed By: #### M G, TSH, CMP ####[facility] [address] [place], [place] [address]Dr. Ronnie Pennington EGFR-AF GRENADIAN 37 mL/min/1.73m2 Critically low >=60 [facility] Comment on above: Performed By: #### M G, TSH, CMP ####[facility] [address] [place], [place] [address]Dr. Ronnie Pennington EGFR-NON AF GRENADIAN 31 mL/min/1.73m2 Critically low >=60 [facility] Comment on above: Performed By: #### M G, TSH, CMP ####[facility] [address] [id number]. Ronnie Pennington Globulin (S) [Mass/Vol] 3.9 g/dL Normal [facility] Comment on above: Performed By: #### M G, TSH, CMP ####[facility] [address] [address]Dr. Ronnie Pennington Glucose [Mass/Vol] 165 mg/dL Critically high 74-106 [facility] Comment on above: Performed By: #### M G, TSH, CMP ####[facility] [address] [address]Dr. Ronnie Pennington Potassium [Moles/Vol] 4.3 mmol/L Normal 3.5-5.1 [facility] Comment on above: Performed By: #### M G, TSH, CMP ####[facility] [address] [place], [place] [address]Dr. Ronnie Pennington Protein [Mass/Vol] 6.7 g/dL Normal 6.4-8.2 [facility] Comment on above: Performed By: #### M G, TSH, CMP ####[facility] [address] [place], [place] [address]Dr. Ronnie Pennington Sodium [Moles/Vol] 138 mmol/L Normal 136-145 [facility] Comment on above: Performed By: #### M G, TSH, CMP ####[facility] [address] [place], [place] [address]Dr. Ronnie Pennington Urea nitrogen [Mass/Vol] 33.0 mg/dL Critically high 7.0-18.0 [facility] Comment on above: Performed By: #### M G, TSH, CMP ####[facility] [address] [place], [place] [address]Dr. Ronnie Pennington Urea nitrogen/Creatinine [Mass ratio] 15.8 mg/mg Normal [facility] Comment on above: Performed By: #### M G, TSH, CMP ####[facility] [address] [place], [place] [address]Dr. Ronnie Gorge TSHon 07-24-2022 TSH 2.763 uIU/mL Normal 0.358-3.74 0 [facility] Comment on above: Performed By: #### M G, TSH, CMP ####[facility] [address] [address]Dr. Ronnie Pennington FK506 (TACROLIMUS) WHOLE BLO ODon 07-15-2022 Tacrolimus (FK506), Blood 9.4 ng/mL Normal 2.0-20.0 [facility] Comment on above: Result Comment: Trou gh (immediately following transplant) 15.0 . Trough (steady state, 2 weeks or more after transplant): 3.0 - 8.0 . Performed by LC-MS/MS technology. Performed By: #### F [id number] #### [facility] [address] [place] [address] Dr. Ronnie Pennington CBC AUTO DIFFon 07-13-2022 BASO # 0.0 103/ul Normal 0.0-0.1 [facility] Comment on above: Performed By: #### C BC #### [facility] [address] [place] [address] Dr. Ronnie Pennington Basophils/100 WBC (Bld) 0.3 % Normal 0.2-2.0 [facility] Comment on above: Performed By: #### C BC #### [facility] [address] [place] [address] Dr. Ronnie Pennington EO # 0.2 103/ul Normal 0.0-0.7 [facility] Comment on above: Performed By: #### C BC #### [facility] [address] [place] [address] Dr. Ronnie Pennington Eosinophils/100 WBC (Bld) 2.5 % Normal 0.9-7.0 [facility] Comment on above: Performed By: #### C BC #### [facility] [address] [place] [address] Dr. Ronnie Pennington Erythrocyte distribution width (RBC) [Ratio] 13.1 % Normal 11.0-15.0 [facility] Comment on above: Performed By: #### C BC #### [facility] [address] [place] [address] Dr. Ronnie Pennington Hematocrit (Bld) [Volume fraction] 33.4 % Critically low 42.0-54.0 [facility] Comment on above: Performed By: #### C BC #### [facility] [address] [place] [address] Dr. Ronnie Pennington Hemoglobin (Bld) [Mass/Vol] 10.4 g/dL Critically low 14.0-18.0 [facility] Comment on above: Performed By: #### C BC #### [facility] [address] [address] [address] Ronnie Pennington IG # 0.04 10e3/ul Critically high 0.00-0.03 [facility] Comment on above: Performed By: #### C BC #### [facility] [address] [place] [address] Dr. Ronnie Pennington IG % 0.6 % Critically high 0.0-0.5 [facility] Comment on above: Performed By: #### C BC #### [facility] [address] [place] [address] Dr. Ronnie Pennington LYMPH # 1.2 103/ul Normal 1.2-3.8 [facility] Comment on above: Performed By: #### C BC #### [facility] [address] [place] [address] Dr. Ronnie Pennington Lymphocytes/100 WBC (Bld) 16.8 % Critically low 20.5-60.0 [facility] Comment on above: Performed By: #### C BC #### [facility] [address] [place] [address] Dr. Ronnie Pennington MANUAL DIFF REQ NO Normal [facility] Comment on above: Performed By: #### C BC #### [facility] [address] [place] [address] Dr. Ronnie Pennington MCH (RBC) [Entitic mass] 28.5 pg Normal 25.9-34.0 [facility] Comment on above: Performed By: #### C BC #### [facility] [address] [place] [address] Dr. Ronnie Pennington MCHC (RBC) [Mass/Vol] 31.1 g/dL Normal 29.9-35.2 [facility] Comment on above: Performed By: #### C BC #### [facility] [address] [place] [address] Dr. Ronnie Pennington MCV (RBC) [Entitic vol] 91.5 fL Normal 80.0-94.0 [facility] Comment on above: Performed By: #### C BC #### [facility] [address] [place] [address] Dr. Ronnie Pennington MONO # 0.5 103/ul Normal 0.3-0.8 [facility] Comment on above: Performed By: #### C BC #### [facility] [address] [place] [address] Dr. Ronnie Pennington Monocytes/100 WBC (Bld) 7.5 % Normal 1.7-12.0 [facility] Comment on above: Performed By: #### C BC #### [facility] [address] [place] [address] Dr. Ronnie Pennington NEUT # 5.0 103/ul Normal 1.4-6.5 [facility] Comment on above: Performed By: #### C BC #### [facility] [address] [place] [address] Dr. Ronnie Pennington Neutrophils/100 WBC (Bld) 72.3 % Normal 43.0-75.0 [facility] Comment on above: Performed By: #### C BC #### [facility] [address] [place] [address] Dr. Ronnie Pennington Platelet mean volume (Bld) [Entitic vol] 11.8 fL Normal 9.5-13.5 [facility] Comment on above: Performed By: #### C BC #### [facility] [address] [place] [address] Dr. Ronnie Pennington PLT 126 103/ul Critically low 150-450 [facility] Comment on above: Performed By: #### C BC #### [facility] [address] [place] [address] Dr. Ronnie Pennington RBC 3.65 106/ul Critically low 4.70-6.10 [facility] Comment on above: Performed By: #### C BC #### [facility] [address] [address] [address] Ronnie Pennington WBC 6.9 103/ul Normal 4.0-11.0 [facility] Comment on above: Performed By: #### C BC #### [facility] [address] [address] [address] Ronnie Pennington MAGNESIUMon 07-13-2022 Magnesium [Mass/Vol] 2.1 mg/dL Normal 1.8-2.4 [facility] Comment on above: Performed By: #### C MP, MG #### [facility] [address] [address] [address] Ronnie Pennington Office Visit (Cardiology)on 07-13-2022 Follow-up visit Patient Instructions -Please bring a list of your medications to every appointment. -We will schedule you a follow up appointment in # months. We will call you with this date. -If you have any questions, please do not hesitate to contact our office at [phone]. For after hours issues, please call [phone]. Chief Complaint OLIVERIO ESCOBEDO is being seen [...] September 2021. He continues to live in group home. He has started Zoloft for depression. He [...] TabletTake 1 tablet twice daily MiraLax Mix-In [place] 17 GM Oral PacketMIX 1 PACKET in [...] Albumin [Mass/Vol] 2.9 g/dL Critically low 3.4-5.0 [facility] Comment on above: Performed By: #### C MP, MG #### [facility] [address] [place] [address] Dr. Ronnie Pennington Albumin/Globulin [Mass ratio] 0.7 {ratio} Normal [facility] Comment on above: Performed By: #### C MP, MG #### [facility] [address] [place] [address] Dr. Ronnie Pennington ALP [Catalytic activity/Vol] 71 U/L Normal 46-116 [facility] Comment on above: Performed By: #### C MP, MG #### [facility] [address] [place] [address] Dr. Ronnie Pennington ALT [Catalytic activity/Vol] 12 U/L Critically low 16-63 [facility] Comment on above: Performed By: #### C MP, MG #### [facility] [address] [place] [address] Dr. Ronnie Pennington Anion gap [Moles/Vol] 15.1 mmol/L Normal [facility] Comment on above: Performed By: #### C MP, MG #### [facility] [address] [place] [address] Dr. Ronnie Pennington AST [Catalytic activity/Vol] 11 U/L Critically low 15-37 [facility] Comment on above: Performed By: #### C MP, MG #### [facility] [address] [place] [address] Dr. Ronnie Pennintgon Bilirubin [Mass/Vol] 0.2 mg/dL Normal 0.2-1.0 [facility] Comment on above: Performed By: #### C MP, MG #### [facility] [address] [place] [address] Dr. Ronnie Pennington Calcium [Mass/Vol] 9.2 mg/dL Normal 8.5-10.1 [facility] Comment on above: Performed By: #### C MP, MG #### [facility] [address] [place] [address] Dr. Ronnie Pennington Chloride [Moles/Vol] 105 mmol/L Normal 98-107 [facility] Comment on above: Performed By: #### C MP, MG #### [facility] [address] [place] [address] Dr. Ronnie Pennington CO2 [Moles/Vol] 28.1 mmol/L Normal 21.0-32.0 [facility] Comment on above: Performed By: #### C MP, MG #### [facility] [address] [place] [address] Dr. Ronnie Pennington Creatinine [Mass/Vol] 2.14 mg/dL Critically high 0.70-1.30 [facility] Comment on above: Performed By: #### C MP, MG #### [facility] [address] [place] [address] Dr. Ronnie Pennnigton EGFR-AF GRENADIAN 36 mL/min/1.73m2 Critically low >=60 [facility] Comment on above: Performed By: #### C MP, MG #### [facility] [address] [place] [address] Dr. Ronnie Pennington EGFR-NON AF GRENADIAN 30 mL/min/1.73m2 Critically low >=60 [facility] Comment on above: Performed By: #### C MP, MG #### [facility] [address] [place] [address] Dr. Ronnie Pennington Globulin (S) [Mass/Vol] 4.0 g/dL Normal [facility] Comment on above: Performed By: #### C MP, MG #### [facility] [address] [place] [address] Dr. Ronnie Pennington Glucose [Mass/Vol] 150 mg/dL Critically high 74-106 [facility] Comment on above: Performed By: #### C MP, MG #### [facility] [address] [place] [address] Dr. Ronnie Pennington Potassium [Moles/Vol] 4.2 mmol/L Normal 3.5-5.1 [facility] Comment on above: Performed By: #### C MP, MG #### [facility] [address] [address] [address] Ronnie Pennington Protein [Mass/Vol] 6.9 g/dL Normal 6.4-8.2 [facility] Comment on above: Performed By: #### C MP, MG #### [facility] [address] [address] [address] Ronnie Pennington Sodium [Moles/Vol] 144 mmol/L Normal 136-145 [facility] Comment on above: Performed By: #### C MP, MG #### [facility] [address] [address] [address] Ronnie Pennington Urea nitrogen [Mass/Vol] 32.0 mg/dL Critically high 7.0-18.0 [facility] Comment on above: Performed By: #### C MP, MG #### [facility] [address] [address] [address] Ronnie Pennington Urea nitrogen/Creatinine [Mass ratio] 15.0 mg/mg Normal [facility] Comment on above: Performed By: #### C MP, MG #### [facility] [address] [address] [address] Ronnie Pennington Transplant SW Assessment Upd [...] Jul 15 2022 12:57PM EST (Author) Normal [facility] Consultation Noteon 06-10-19 Consultation Note [id number]:[id number] Normal [facility] TSHon 06-05-2022 TSH 3.293 uIU/mL Normal 0.358-3.74 0 [facility] Comment on above: Performed By: #### T SH #### [facility] [address] [address] [address] Ronnie Pennington Cult,Woundon 04-19-2022 Cult,Wound Specimen [...] Comment on above: Performed By: #### W PA #### [facility] [address] [place] [address] Certified Nutritionist: David Gonzalez MD PROF CHEM 8 ([facility])on Anion gap [Moles/Vol] 14.9 mmol/L Normal [facility] Comment on above: Performed By: #### B MP #### [facility] [address] [address] [address] Ronnie Pennington Calcium [Mass/Vol] 8.8 mg/dL Normal 8.5-10.1 [facility] Comment on above: Performed By: #### B MP #### [facility] [address] [address] [address] Ronnie Pennington Chloride [Moles/Vol] 104 mmol/L Normal 98-107 [facility] Comment on above: Performed By: #### B MP #### [facility] [address] [address] [address] Ronnie Pennington CO2 [Moles/Vol] 26.6 mmol/L Normal 21.0-32.0 [facility] Comment on above: Performed By: #### B MP #### [facility] [address] [address] [address] Ronnie Pennington Creatinine [Mass/Vol] 2.03 mg/dL Critically high 0.70-1.30 [facility] Comment on above: Performed By: #### B MP #### [facility] [address] [address] [address] Ronnie Pennington EGFR-AF GRENADIAN 39 mL/min/1.73m2 Critically low >=60 [facility] Comment on above: Performed By: #### B MP #### [facility] [address] [address] [address] Ronnie Pennington EGFR-NON AF GRENADIAN 32 mL/min/1.73m2 Critically low >=60 [facility] Comment on above: Performed By: #### B MP #### [facility] [address] [address] [address] Ronnie Pennington Glucose [Mass/Vol] 209 mg/dL Critically high 74-106 [facility] Comment on above: Performed By: #### B MP #### [facility] [address] [address] [address] Ronnie Pennington Potassium [Moles/Vol] 4.5 mmol/L Normal 3.5-5.1 [facility] Comment on above: Performed By: #### B MP #### [facility] [address] [address] [address] Ronnie Pennington Sodium [Moles/Vol] 141 mmol/L Normal 136-145 [facility] Comment on above: Performed By: #### B MP #### [facility] [address] [address] [address] Ronnie Pennington Urea nitrogen [Mass/Vol] 26.0 mg/dL Critically high 7.0-18.0 [facility] Comment on above: Performed By: #### B MP #### [facility] [address] [address] [address] Ronnie Pennington Urea nitrogen/Creatinine [Mass ratio] 12.8 mg/mg Normal [facility] Comment on above: Performed By: #### B MP #### [facility] [address] [address] [address] Ronnie Pennington Office Visit (Cardiology)on 10-15-2021 [...] office visit; documented BPs at the [facility] 120-130s/70-80s. Benadryl 25 mg q6h [...] JARON NESS Date: 2021-08-05 15:10 Normal [facility] CBC AND DIFFERENTIALon 07-13 % AUTOMATED IMMATURE GRAN 0.5 % Normal 0.0 - 0.9 [facility] Comment on above: Result Comment: Christal ture Granulocyte Count (IG) includes promyelocytes, myelocytes and metamyelocytes but does not include bands. Percent differential counts (%) should be interpreted in the context of the absolute cell counts (cells/L). Performed By: #### C BCDF #### [address] [address] Basophils (Bld) [#/Vol] 0.02 10*3/uL Normal 0.00 - 0.10 [facility] Comment on above: Performed By: #### C BCDF #### [address] [address] Basophils/100 WBC (Bld) 0.3 % Normal 0.0 - 2.0 [facility] Comment on above: Performed By: #### C BCDF #### [address] [address] Eosinophils (Bld) [#/Vol] 0.07 10*3/uL Normal 0.00 - 0.40 [facility] Comment on above: Performed By: #### C BCDF #### [address] [address] Eosinophils/100 WBC (Bld) 0.9 % Normal 0.0 - 6.0 [facility] Comment on above: Performed By: #### C BCDF #### [address] [address] Erythrocyte distribution width (RBC) [Ratio] 14.4 % Normal 11.5 - 14.5 [facility] Comment on above: Performed By: #### C BCDF #### [address] [address] Hematocrit (Bld) [Volume fraction] 35.5 % Low 41.0 - 52.0 [facility] Comment on above: Performed By: #### C BCDF #### [address] [address] Hemoglobin (Bld) [Mass/Vol] 10.8 g/dL Low 13.5 - 17.5 [facility] Comment on above: Performed By: #### C BCDF #### [address] [address] Lymphocytes (Bld) [#/Vol] 0.42 10*3/uL Low 0.80 - 3.00 [facility] Comment on above: Performed By: #### C BCDF #### [address] [address] Lymphocytes/100 WBC (Bld) 5.6 % Normal 13.0 - 44.0 [facility] Comment on above: Performed By: #### C BCDF #### [address] [address] MCHC (RBC) [Mass/Vol] 30.4 g/dL Low 32.0 - 36.0 [facility] Comment on above: Performed By: #### C BCDF #### [address] [address] MCV (RBC) [Entitic vol] 89 fL Normal 80 - 100 [facility] Comment on above: Performed By: #### C BCDF #### [address] [address] Monocytes (Bld) [#/Vol] 0.07 10*3/uL Normal 0.05 - 0.80 [facility] Comment on above: Performed By: #### C BCDF #### [address] [address] Monocytes/100 WBC (Bld) 0.9 % Normal 2.0 - 10.0 [facility] Comment on above: Performed By: #### C BCDF #### [address] [place] [address] Neutrophils (Bld) [#/Vol] 6.82 10*3/uL High 1.60 - 5.50 [facility] Comment on above: Performed By: #### C BCDF #### [address] [address] Neutrophils/100 WBC (Bld) 91.8 % Normal 40.0 - 80.0 [facility] Comment on above: Performed By: #### C BCDF #### [address] [address] NUCLEATED RBC 0.0 /100 WBC Normal 0.0 - 0.0 [facility] Comment on above: Performed By: #### C BCDF #### [address] [address] Platelets (Bld) [#/Vol] 161 10*3/uL Normal 150 - 450 [facility] Comment on above: Performed By: #### C BCDF #### [address] [address] RBC 3.98 x10E12/L Low 4.50 - 5.90 [facility] Comment on above: Performed By: #### C BCDF #### [address] [address] WBC (Bld) [#/Vol] 7.4 10*3/uL Normal 4.4 - 11.3 [facility] Comment on above: Performed By: #### C BCDF #### [address] [address] Complete Blood Count + Diffe rentialon 07-13-2021 Basophils/100 WBC (Bld) 0.3 % 0.0 - 2.0 [facility] [place] [address] [place] Work Phone: Erythrocyte distribution width (RBC) [Ratio] 14.4 % See Below [facility] [place] [address] [place] Work Phone: Comment on above: Reference Range: 11. 5 - 14.5 Hematocrit (Bld) [Volume fraction] 35.5 % below low threshold See Below [facility] [address] [place] Work Phone: Comment on [...] % 2.0 - 10.0 [facility] [address] [place] Work Phone: Neutrophils/100 WBC (Bld) 91.8 % See Below [facility] [address] [place] Work Phone: Comment on above: Reference Range: 40. 0 - 80.0 Platelets (Bld) [#/Vol] 161 10*3/uL 150 - 450 [facility] [address] [place] Work Phone: RBC (Bld) [#/Vol] 3.98 {x10E12/L} below low threshold See Below [facility] [address] [place] Work Phone: Comment on above: Reference Range: 4.5 0 - 5.90 WBC (Bld) [#/Vol] 7.4 10*3/uL 4.4 - 11.3 [facility] [place] [address] [place] Work Phone: Complete Blood Count + Differential 0.02 {x10E9/L} See Below [facility] [address] [place] Work Phone: Comment on above: Reference Range: 0.0 0 - 0.10 Complete Blood Count + Differential 0.07 {x10E9/L} See Below [facility] [address] [place] Work Phone: Comment on above: Reference Range: 0.0 0 - 0.40 Reference Range: 0.0 5 - 0.80 Complete Blood Count + Differential 0.42 {x10E9/L} below low threshold See Below [facility] [employer] [facility] [address] [place] Work Phone: Comment on above: Reference Range: 0.8 0 - 3.00 Complete Blood Count + Differential 6.82 {x10E9/L} above high threshold See Below [facility] [place] [employer] [address] [place] Work Phone: Comment on above: Reference Range: 1.6 0 - 5.50 Complete Blood Count + Differential 0.9 % 0.0 - 6.0 [facility] [employer] [address] [place] Work Phone: Complete Blood Count + Differential 0.5 % 0.0 - 0.9 [facility] [place] [employer] [place] Work Phone: Comment on above: Immature Granulocyte Count (IG) includes promyelocytes, myelocytes and metamyelocytes but does not include bands. Percent differential counts (%) should be interpreted in the context of the absolute cell counts (cells/L). Complete Blood Count + Differential 0.0 {/100_WBC} 0.0 - 0.0 [facility] [address] [place] Work Phone: Coronavirus 2019 [...] Authorization (EUA) and has been verified by [facility] ([facility]). This test is only authorized for the duration of time that circumstances exist to justify the authorization of the emergency use of in vitro diagnostic tests for the detection of SARS-CoV-2 virus and/or diagnosis of COVID-19 infection under section 564(b)(1) of the Act, 21 U.S.C. 360bbb-3(b)(1), unless the authorization is terminated or revoked sooner. [facility] is certified under CLIA-88 as qualified to perform high complexity testing. Testing is performed in the [facility] located at [address] [place] [address].SARS-CoV-2/Flu/RSV Multiplex Test: Fact sheet for providers: https://www.fda.gov/media/750368/downloadFact sheet for patients: https://www.fda.gov/media/640792/download Laboratory - Chemistry and C hemistry - challengeon 07-03-2021 Glucose [Mass/Vol] 330 mg/dL above high threshold 74 - 99 [facility] [address] [place] Work Phone: Glucose [Mass/Vol] 277 mg/dL above high threshold 74 - 99 [facility] [address] [place] Work Phone: Anion gap [Moles/Vol] 15 mmol/L 10 - 20 [facility] [address] [place] Work Phone: Calcium [Mass/Vol] [...] high threshold 74 - 99 [facility] [address] [place] Work Phone: Potassium [Moles/Vol] 3.9 mmol/L 3.5 - 5.3 [facility] [address] [place] Work Phone: [phone] Sodium [Moles/Vol] 138 mmol/L 136 - 145 [facility] [address] [place] Work Phone: [phone] Urea nitrogen [Mass/Vol] 35 mg/dL above high threshold 6 - 23 [facility] [address] [place] Work Phone: Laboratory - Hematology and Cell countson 07-03-2021 Erythrocyte distribution width (RBC) [Ratio] 13.7 % See Below [facility] [address] [place] Work Phone: Comment on [...] below low threshold See Below [facility] [address] [place] Work Phone: Comment on above: Reference Range: 32. 0 - 36.0 MCV (RBC) [Entitic vol] 89 fL 80 - 100 [facility] [address] [place] Work Phone: Platelets (Bld) [#/Vol] 171 10*3/uL 150 - 450 [facility] [address] [place] Work Phone: RBC (Bld) [#/Vol] 3.94 {x10E12/L} below low threshold See Below [facility] [address] [place] Work Phone: Comment on above: Reference Range: 4.5 0 - 5.90 WBC (Bld) [#/Vol] 6.0 10*3/uL 4.4 - 11.3 [facility] [address] [place] Work Phone: No Panel Informationon 07-03 38 {mL/min/1.73m2} Abnormal >90 [facility] [address] [place] Work Phone: Comment on above: CALCULATIONS OF ERNST MATED GFR ARE PERFORMED USING THE 2020 CKD-EPI STUDY REFIT EQUATION WITHOUT THE RACE VARIABLE FOR THE IDMS-TRACEABLE CREATININE METHODS.https://jasn.asnjournals.org/content/early// ASN.0812916065 0.0 {/100_WBC} 0.0-0.0 [facility] [address] [place] Work Phone: Tacrolimuson 07-03-2021 Tacrolimus (Bld) [Mass/Vol] 5.5 ng/mL 2.0 - 15.0 [facility] [address] [place] Work Phone: Comment on above: NOTE: Result was obt ained using a chemiluminescent microparticle immunoassay (CMIA) on the [employer] i system.Optimal therapeutic ranges for immuno-suppressant drugs [...] high threshold 74 - 99 [facility] [address] [place] Work Phone: [phone] Glucose [Mass/Vol] 269 mg/dL above high threshold 74 - 99 [facility] [address] [place] Work Phone: [phone] Anion gap [Moles/Vol] 15 mmol/L 10 - 20 [facility] [address] [place] Work Phone: [phone] Calcium [Mass/Vol] 9.1 mg/dL 8.6 - 10.6 [facility] [address] [place] Work Phone: [phone] Chloride [Moles/Vol] 102 mmol/L 98 - 107 [facility] [address] [place] Work Phone: [phone] CO2 [Moles/Vol] 27 mmol/L 21 - 32 [facility] [address] [place] Work Phone: [phone] Creatinine [Mass/Vol] 1.97 mg/dL above high threshold See Below [facility] [address] [place] Work Phone: Comment on above: Reference Range: 0.5 0 - 1.30 Glucose [Mass/Vol] 197 mg/dL above high threshold 74 - 99 [facility] [address] [place] Work Phone: Potassium [Moles/Vol] 4.1 mmol/L 3.5 - 5.3 [facility] [address] [place] Work Phone: Sodium [Moles/Vol] 140 mmol/L 136 - 145 [facility] [address] [place] Work Phone: [phone] Urea nitrogen [Mass/Vol] 41 mg/dL above high threshold 6 - 23 [facility] [address] [place] Work Phone: [phone] Glucose [Mass/Vol] 201 mg/dL above high threshold 74 - 99 [facility] [address] [place] Work Phone: Laboratory - Hematology and Cell countson 07-02-2021 Erythrocyte distribution width (RBC) [Ratio] 14.1 % See Below [facility] [address] [place] Work Phone: [phone] Comment on above: Reference Range: 11. 5 [...] fL 80 - 100 [facility] [address] [place] Work Phone: Platelets (Bld) [#/Vol] 160 10*3/uL 150 - 450 [facility] [address] [place] Work Phone: RBC (Bld) [#/Vol] 3.82 {x10E12/L} below low threshold See Below [facility] [address] [place] Work Phone: Comment on above: Reference Range: 4.5 0 - 5.90 WBC (Bld) [#/Vol] 6.8 10*3/uL 4.4 - 11.3 [facility] [address] [place] Work Phone: No Panel Informationon 07-02 34 {mL/min/1.73m2} Abnormal >90 [facility] [address] [place] Work Phone: Comment on above: CALCULATIONS OF ERNST MATED GFR ARE PERFORMED USING THE 2020 CKD-EPI STUDY REFIT EQUATION WITHOUT THE RACE VARIABLE FOR THE IDMS-TRACEABLE CREATININE METHODS.https://jasn.asnjournals.org/content/early// ASN.4596506375 0.0 {/100_WBC} 0.0-0.0 [facility] [address] [place] Work Phone: Tacrolimuson 07-02-2021 Tacrolimus (Bld) [Mass/Vol] 7.6 ng/mL 2.0 - 15.0 [facility] [address] [place] Work Phone: Comment on above: NOTE: Result was obt ained using a chemiluminescent microparticle immunoassay (CMIA) on the [employer] i system.Optimal therapeutic ranges for immuno-suppressant drugs [...] 13-18 <7.5 7-12 <8.0 0- 6 7.5-8.5 [place] [employer]. Diabetes Care 33(S1), Mar 2009. Laboratory - Chemistry and C hemistry - challengeon 07-01-2021 Glucose [Mass/Vol] 188 mg/dL above high threshold 74 - 99 [facility] [address] [place] Work Phone: Glucose [Mass/Vol] 258 mg/dL above high threshold 74 - 99 [facility] [address] [place] Work Phone: Glucose [Mass/Vol] 321 mg/dL above high threshold 74 - 99 [facility] [address] [place] Work Phone: Anion gap [Moles/Vol] 16 mmol/L 10 - 20 [facility] [address] [place] Work Phone: Calcium [Mass/Vol] 8.8 mg/dL 8.6 - 10.6 [facility] [address] [place] Work Phone: Chloride [Moles/Vol] 100 mmol/L 98 - 107 [facility] [address] [place] Work Phone: CO2 [Moles/Vol] 29 mmol/L 21 - 32 [facility] [address] [place] Work Phone: Creatinine [Mass/Vol] [...] mmol/L 3.5 - 5.3 [facility] [address] [place] Work Phone: Sodium [Moles/Vol] 141 mmol/L 136 - 145 [facility] [address] [place] Work Phone: Urea nitrogen [Mass/Vol] 38 mg/dL above high threshold 6 - 23 [facility] [address] [place] Work Phone: Laboratory - Hematology and Cell countson 07-01-2021 Erythrocyte distribution width (RBC) [Ratio] 14.1 % See Below [facility] [address] [place] Work Phone: Comment on above: Reference Range: 11. 5 - 14.5 Hematocrit (Bld) [Volume fraction] 34.6 % below low threshold See Below [facility] [address] [place] Work Phone: Comment on above: Reference Range: 41. 0 - 52.0 Hemoglobin (Bld) [Mass/Vol] 10.7 g/dL below low threshold See Below [facility] [address] [place] Work Phone: Comment on [...] 157 10*3/uL 150 - 450 [facility] [address] [place] Work Phone: RBC (Bld) [#/Vol] 3.83 {x10E12/L} below low threshold See Below [facility] [address] [place] Work Phone: Comment on above: Reference Range: 4.5 0 - 5.90 WBC (Bld) [#/Vol] 6.8 10*3/uL 4.4 - 11.3 [facility] [address] [place] Work Phone: No Panel Informationon 07-01 34 {mL/min/1.73m2} Abnormal >90 [facility] [address] [place] Work Phone: Comment on above: CALCULATIONS OF ERNST MATED GFR ARE PERFORMED USING THE 2020 CKD-EPI STUDY REFIT EQUATION WITHOUT THE RACE VARIABLE FOR THE IDMS-TRACEABLE CREATININE METHODS.https://jasn.asnjournals.org/content// ASN.0723190729 0.0 {/100_WBC} 0.0-0.0 [facility] [address] [place] Work Phone: Tacrolimuson 07-01-2021 Tacrolimus (Bld) [Mass/Vol] 9.3 ng/mL 2.0 - 15.0 [facility] [address] [place] Work Phone: Comment on above: NOTE: Result was obt ained using a chemiluminescent microparticle immunoassay (CMIA) on the [employer] i system.Optimal therapeutic ranges for immuno-suppressant drugs [...] high threshold 74 - 99 [facility] [address] [place] Work Phone: [phone] Glucose [Mass/Vol] 267 mg/dL above high threshold 74 - 99 [facility] [address] [place] Work Phone: [phone] Glucose [Mass/Vol] 289 mg/dL above high threshold 74 - 99 [facility] [facility] [address] [place] Work Phone: [phone] Glucose [Mass/Vol] 236 mg/dL above high threshold 74 - 99 [facility] [address] [place] Work Phone: [phone] Anion gap [Moles/Vol] 17 mmol/L 10 - 20 [facility] [address] [place] Work Phone: [phone] Calcium [Mass/Vol] 8.6 mg/dL 8.6 - 10.6 [facility] [address] [place] Work Phone: [phone] Chloride [Moles/Vol] 100 mmol/L 98 - 107 [facility]diolo [facility] [address] [place] Work Phone: [phone] CO2 [Moles/Vol] 28 mmol/L 21 - 32 [facility] [address] [place] Work Phone: [phone] Creatinine [Mass/Vol] 2.26 mg/dL above high threshold See Below [facility] [address] [place] Work Phone: [phone] Comment on above: Reference Range: 0.5 0 - 1.30 Glucose [Mass/Vol] 205 mg/dL above high threshold 74 - 99 [facility] [address] [place] Work Phone: [phone] Potassium [Moles/Vol] 3.8 mmol/L 3.5 - 5.3 [facility] [address] [place] Work Phone: Sodium [Moles/Vol] 141 mmol/L 136 - 145 [facility] [address] [place] Work Phone: Urea nitrogen [Mass/Vol] 39 mg/dL above high threshold 6 - 23 [facility] [address] [place] Work Phone: Laboratory - Hematology and Cell countson 06-30-2021 Erythrocyte distribution width (RBC) [Ratio] 14.3 % See Below [facility] [address] [place] Work Phone: Comment on above: Reference Range: 11. 5 - 14.5 Hematocrit (Bld) [Volume fraction] 33.5 % below low threshold See Below [facility] [address] [place] Work Phone: Comment on above: Reference Range: 41. 0 - 52.0 Hemoglobin (Bld) [Mass/Vol] 10.5 g/dL below low threshold See Below [facility] [address] [place] Work Phone: Comment on above: Reference Range: 13. 5 - 17.5 MCHC (RBC) [Mass/Vol] 31.3 g/dL below low threshold See Below [facility] [address] [place] Work Phone: Comment on above: Reference Range: 32. 0 - 36.0 MCV (RBC) [Entitic vol] 91 fL 80 - 100 [facility] [address] [place] Work Phone: Platelets (Bld) [#/Vol] 141 10*3/uL below lo w threshold 150 - 450 [facility] [address] [place] Work Phone: RBC (Bld) [#/Vol] 3.70 {x10E12/L} below low threshold See Below [facility] [address] [place] Work Phone: Comment on above: Reference Range: 4.5 0 - 5.90 WBC (Bld) [#/Vol] 8.2 10*3/uL 4.4 - 11.3 [facility] [address] [place] Work Phone: No Panel Informationon 06-30 29 {mL/min/1.73m2} Abnormal >90 [facility] [address] [place] Work Phone: Comment on above: CALCULATIONS OF ERNST MATED GFR ARE PERFORMED USING THE 2020 CKD-EPI STUDY REFIT EQUATION WITHOUT THE RACE VARIABLE FOR THE IDMS-TRACEABLE CREATININE METHODS.https://jasn.asnjournals.org/content/early/ ASN.9346291321 0.0 {/100_WBC} 0.0-0.0 [facility] [address] [place] Work Phone: Tacrolimuson 06-30-2021 Tacrolimus (Bld) [Mass/Vol] 7.7 ng/mL 2.0 - 15.0 [facility] [address] [place] Work Phone: Comment on above: NOTE: Result was obt ained using a chemiluminescent microparticle immunoassay (CMIA) on the [employer] i system.Optimal therapeutic ranges for immuno-suppressant drugs depend upon an individualpatient's current clinical state, type oforgan transplant, time post-transplant,co-administration of other immunosuppressants,and other clinical factors. The results ofthis test should be correlated with additionalclinical and laboratory data before changesin treatment regimens are made. [facility] Venous Duplex Ultra sound for DVTon 06-30-2021 [facility] Venous Duplex Ultrasound for DVT [facility] [address] [place] Work Phone: Laboratory - Chemistry and C hemistry - challengeon 06-29-2021 Glucose [Mass/Vol] 252 mg/dL above high threshold 74 - 99 [facility] [address] [place] Work Phone: Glucose [Mass/Vol] 225 mg/dL above high threshold 74 - 99 [facility] [address] [place] Work Phone: [phone] Glucose [Mass/Vol] 283 mg/dL above high threshold 74 - 99 [facility] [address] [place] Work Phone: [phone] Anion gap [Moles/Vol] 16 mmol/L 10 - 20 [facility] [address] [place] Work Phone: [phone] Calcium [Mass/Vol] 8.7 mg/dL 8.6 - 10.6 [facility] [address] [place] Work Phone: [phone] Chloride [Moles/Vol] 104 mmol/L 98 - 107 [facility]diolo [facility] [address] [place] Work Phone: [phone] CO2 [Moles/Vol] 28 mmol/L 21 - 32 [facility] [address] [place] Work Phone: [phone] Creatinine [Mass/Vol] 1.97 mg/dL above high threshold See Below [facility] [address] [place] Work Phone: [phone] Comment on above: Reference Range: 0.5 0 - 1.30 Glucose [Mass/Vol] 185 mg/dL above high threshold 74 - 99 [facility] [address] [place] Work Phone: [phone] Potassium [Moles/Vol] 3.9 mmol/L 3.5 - 5.3 [facility] [employer] [address] [place] Work Phone: [phone] Sodium [Moles/Vol] 144 mmol/L 136 - 145 [facility] [place] [address] [place] Work Phone: [phone] Urea nitrogen [Mass/Vol] 35 mg/dL above high threshold 6 - 23 [facility] [address] [place] Work Phone: [phone] [...] below low threshold See Below [facility] [address] [place] Work Phone: Comment on above: Reference Range: 41. 0 - 52.0 Hemoglobin (Bld) [Mass/Vol] 11.0 g/dL below low threshold See Below [facility] [address] [place] Work Phone: Comment on [...] 1.80 mg/dL See Below [facility] [address] [place] Work Phone: Comment on above: Reference Range: 1.6 0 - 2.40 No Panel Informationon 06-29 34 {mL/min/1.73m2} Abnormal >90 [facility] [address] [place] Work Phone: Comment on above: CALCULATIONS OF ERNST MATED GFR ARE PERFORMED USING THE 2020 CKD-EPI STUDY REFIT EQUATION WITHOUT THE RACE VARIABLE FOR THE IDMS-TRACEABLE CREATININE METHODS.https://jasn.asnjournals.org/content/early// ASN.5821247152 0.0 {/100_WBC} 0.0-0.0 [facility] [address] [place] Work Phone: Tacrolimuson 06-29-2021 Tacrolimus (Bld) [Mass/Vol] 8.4 ng/mL 2.0 - 15.0 [facility] [address] [place] Work Phone: Comment on above: NOTE: Result was obt ained using a chemiluminescent microparticle immunoassay (CMIA) on the [employer] i system.Optimal therapeutic ranges for immuno-suppressant drugs [...] high threshold 74 - 99 [facility] [address] [place] Work Phone: Glucose [Mass/Vol] 215 mg/dL above high threshold 74 - 99 [facility] [address] [place] Work Phone: Anion gap [Moles/Vol] 14 mmol/L 10 - 20 [facility] [address] [place] Work Phone: Calcium [Mass/Vol] 8.5 mg/dL below low threshold 8.6 - 10.6 [facility] [address] [place] Work Phone: Chloride [Moles/Vol] 105 mmol/L 98 - 107 [facility] [address] [place] Work Phone: [phone] CO2 [Moles/Vol] 29 mmol/L 21 - 32 [facility] [address] [place] Work Phone: [phone] Creatinine [Mass/Vol] 1.96 mg/dL above high threshold See Below [facility] [address] [place] Work Phone: Comment on above: Reference Range: 0.5 0 - 1.30 Glucose [Mass/Vol] 159 mg/dL above high threshold 74 - 99 [facility] [address] [place] Work Phone: [phone] Potassium [Moles/Vol] 3.8 mmol/L 3.5 - 5.3 [facility] [address] [place] Work Phone: [phone] Sodium [Moles/Vol] 144 mmol/L 136 - 145 [facility] [address] [place] Work Phone: Urea nitrogen [Mass/Vol] 36 mg/dL above high threshold 6 - 23 [facility] [address] [place] Work Phone: Glucose [Mass/Vol] 159 mg/dL above high threshold 74 - 99 [facility] [address] [place] Work Phone: Laboratory - Hematology and Cell countson 06-28-2021 Erythrocyte distribution width (RBC) [Ratio] 14.3 % See Below [facility] [address] [place] Work Phone: Comment on above: Reference Range: 11. 5 - 14.5 Hematocrit (Bld) [Volume fraction] 33.8 % below low threshold See Below [facility] [employer] [address] [place] Work Phone: Comment on above: Reference Range: 41. 0 - 52.0 Hemoglobin (Bld) [Mass/Vol] 10.4 g/dL below low threshold See Below [facility] [address] [place] Work Phone: Comment on above: Reference Range: 13. 5 - 17.5 MCHC (RBC) [Mass/Vol] 30.8 g/dL below low threshold See Below [facility] [address] [place] Work Phone: Comment on above: Reference Range: 32. 0 - 36.0 MCV (RBC) [Entitic vol] 90 fL 80 - 100 M [facility] [address] [place] Work Phone: Platelets (Bld) [#/Vol] 133 10*3/uL below lo w threshold 150 - 450 [facility] [address] [place] Work Phone: RBC (Bld) [#/Vol] 3.75 {x10E12/L} below low threshold See Below [facility] [address] [place] Work Phone: Comment on above: Reference Range: 4.5 0 - 5.90 WBC (Bld) [#/Vol] 5.7 10*3/uL 4.4 - 11.3 [facility] [employer] [address] [place] Work Phone: Lactate, Levelon 06-28-2021 Lactate [Moles/Vol] 0.6 mmol/L 0.4 - 2.0 [facility]diolo [facility] [address] [place] Work Phone: Comment on above: [...] RACE VARIABLE FOR THE IDMS-TRACEABLE CREATININE METHODS.https://jasn.asnjournals.org/content/early/ ASN.8739406750 0.0 {/100_WBC} 0.0-0.0 [facility] [address] [place] Work Phone: Tacrolimuson 06-28-2021 Tacrolimus (Bld) [Mass/Vol] 10.4 ng/mL 2.0 - 15.0 [facility] [address] [place] Work Phone: Comment on above: NOTE: Result was obt ained using a chemiluminescent microparticle immunoassay (CMIA) on the [employer] i system.Optimal therapeutic ranges for immuno-suppressant drugs depend upon an individualpatient's current clinical state, type oforgan transplant, time post-transplant,co-administration of other immunosuppressants,and other clinical factors. The results ofthis test should be correlated with additionalclinical and laboratory data before changesin treatment regimens are made. Complete Blood Count + Diffe rentialon 06-27-2021 Basophils/100 WBC (Bld) 0.5 % 0.0 - 2.0 M [facility] [address] [place] Work Phone: Erythrocyte distribution width (RBC) [Ratio] 14.3 % See Below [facility] [address] [place] Work Phone: Comment on above: Reference Range: 11. 5 - 14.5 Hematocrit (Bld) [Volume fraction] 33.6 % below low threshold See Below [facility] [address] [place] Work Phone: Comment on above: Reference Range: 41. 0 - 52.0 Hemoglobin (Bld) [Mass/Vol] 10.3 g/dL below low threshold See Below [facility] [address] [place] Work Phone: Comment on above: Reference Range: 13. 5 - 17.5 Lymphocytes/100 WBC (Bld) 13.1 % See Below [facility] [address] [place] Work Phone: Comment on above: Reference Range: 13. 0 - 44.0 MCHC (RBC) [Mass/Vol] 30.7 g/dL below low threshold See Below [facility] [address] [place] Work Phone: Comment on above: Reference Range: 32. 0 - 36.0 MCV (RBC) [Entitic vol] 92 fL 80 - 100 [facility] [address] [place] Work Phone: Monocytes/100 WBC (Bld) 9.0 % 2.0 - 10.0 [facility] [address] [place] Work Phone: Neutrophils/100 WBC (Bld) 72.5 % See Below [facility] [address] [place] Work Phone: Comment on above: Reference Range: 40. 0 - 80.0 Platelets (Bld) [#/Vol] 137 10*3/uL below lo w threshold 150 - 450 [facility] [address] [place] Work Phone: RBC (Bld) [#/Vol] 3.67 {x10E12/L} below low threshold See Below [facility] [address] [place] Work Phone: Comment on above: Reference Range: 4.5 0 - 5.90 WBC (Bld) [#/Vol] 6.4 10*3/uL 4.4 - 11.3 [facility] [address] [place] Work Phone: Complete Blood Count + Differential 0.03 {x10E9/L} See Below [facility] [address] [place] Work Phone: Comment on above: Reference Range: 0.0 0 - 0.10 Complete Blood Count + Differential 0.28 {x10E9/L} See Below [facility] [address] [place] Work Phone: Comment on above: Reference Range: 0.0 0 - 0.40 Complete Blood Count + Differential 0.57 {x10E9/L} See Below [facility] [address] [place] Work Phone: Comment on above: Reference Range: 0.0 5 - 0.80 Complete Blood Count + Differential 0.83 {x10E9/L} See Below [facility] [address] [place] Work Phone: Comment on above: Reference Range: 0.8 0 - 3.00 Complete Blood Count + Differential 4.61 {x10E9/L} See Below [facility] [employer] [address] [place] Work Phone: Comment on above: Reference Range: 1.6 0 - 5.50 Complete Blood Count + Differential 4.4 % 0.0 - 6.0 [facility] [address] [place] Work Phone: Complete Blood Count + Differential 0.5 % 0.0 - 0.9 [facility] [address] [place] Work Phone: Comment on above: Immature Granulocyte Count (IG) includes promyelocytes, myelocytes and metamyelocytes but does not include bands. Percent differential counts (%) should be interpreted in the context of the absolute cell counts (cells/L). Complete Blood Count + Differential 0.0 {/100_WBC} 0.0-0.0 [facility] [address] [place] Work Phone: Glucose Glucometer (dC) [M ass/Vol]Ordered By: Yoshi Wu on 06-27-2021 Glucose [Mass/Vol] 263 mg/dL [facility] Comment on above: Random Glucose Refer ence Range is dependent on time and content of last meal. Glucose of more than 200 mg/dL in a nonstressed, ambulatory subject supports the diagnosis of Diabetes Mellitus. Laboratory - Chemistry and C hemistry - challengeon 06-27-2021 Albumin BCP dye [Mass/Vol] 3.4 g/dL 3.4 - 5.0 [facility] [address] [place] Work Phone: ALP [Catalytic activity/Vol] 57 U/L 33 - 136 [facility] [address] [place] Work Phone: ALT With P-5'-P [Catalytic activity/Vol] 4 U/L below low threshold 10 - 52 [facility] [address] [place] Work Phone: Comment on above: Patients treated wit h Sulfasalazine may generate falsely decreased results for ALT. Anion gap [Moles/Vol] 18 mmol/L 10 - 20 [facility] [address] [place] Work Phone: AST With P-5'-P [Catalytic activity/Vol] 10 U/L 9 - 39 [facility] [address] [place] Work Phone: Bilirubin [Mass/Vol] 0.3 mg/dL 0.0 - 1.2 [facility] [address] [place] Work Phone: Calcium [Mass/Vol] 8.3 mg/dL below low threshold 8.6 - 10.6 [facility] [address] [place] Work Phone: Chloride [Moles/Vol] 102 mmol/L 98 - 107 [facility] [address] [place] Work Phone: CO2 [Moles/Vol] 26 mmol/L 21 - 32 [facility] [address] [place] Work Phone: Creatinine [Mass/Vol] 1.85 mg/dL above high threshold See Below [facility] [address] [place] Work Phone: Comment on above: Reference Range: 0.5 0 - 1.30 Glucose [Mass/Vol] 177 mg/dL above high threshold 74 - 99 [facility] [address] [place] Work Phone: Potassium [Moles/Vol] 3.7 mmol/L 3.5 - 5.3 [facility] [address] [place] Work Phone: Protein [Mass/Vol] 5.7 g/dL below low threshold 6.4 - 8.2 [facility] [address] [place] Work Phone: Sodium [Moles/Vol] 142 mmol/L 136 - 145 [facility] [address] [place] Work Phone: Urea nitrogen [Mass/Vol] 37 mg/dL above high threshold 6 - 23 [facility] [address] [place] Work Phone: Glucose [Mass/Vol] 178 mg/dL above high threshold 74 - 99 [facility] [address] [place] Work Phone: Glucose [Mass/Vol] 213 mg/dL above high threshold 74 - 99 [facility] [address] [place] Work Phone: No Panel Informationon 06-27 37 {mL/min/1.73m2} Abnormal >90 [facility] [address] [place] Work Phone: Comment on above: CALCULATIONS OF ERNST MATED GFR ARE PERFORMED USING THE 2020 CKD-EPI STUDY REFIT EQUATION WITHOUT THE RACE VARIABLE FOR THE IDMS-TRACEABLE CREATININE METHODS.https://jasn.asnjournals.org/content// ASN.6193488759 No Panel InformationOrdered By: Yoshi Wu on 06-27-2021 Bedside Glucose Comment Glu2: cleaned meter [facility] Automated erythrocytes count in urine sediment (number/area)Ordered By: Audra Quinteros on 06-26-2021 RBC Auto (Urine sed) [#/Area] 0-1 [HPF] [facility] Automated leukocytes count i n urine sediment (number/area)Ordered By: Audra Quinteros on 06-26-2021 WBC Auto (Urine sed) [#/Area] 0-1 [HPF] [facility] Bilirubin Test strip Ql (U)O rdered By: Audra Quinteros on 06-26-2021 Bilirubin Ql (U) Negative Negative [facility] COVID-19 Positive/NegativeOr dered By: Omid Myrick on 06-26-2021 SARS-CoV-2 (COVID-19) N gene JOYCE+probe Ql (Resp) Negative Negative [facility] Comment on above: Testing for SARS-CoV -2 by RT-PCRThis test was developed and its performance characteristics determined by [employer] [place] [employer] and validated at the [facility]. This test has not been FDA [...] Quinteros on 06-26-2021 Color (U) Yellow Yellow [facility] Creatinine [Mass/volume] in UrineOrdered By: Audra Quinteros on 06-26-2021 Creatinine (U) [Mass/Vol] 71.5 mg/dL [facility] Comment on above: No reference range e stablished Creatinine and Glomerular fi ltration rate.predicted panel (S/P/Bld)Ordered By: Audra Quinteros on 06-26-2021 Creatinine [Mass/Vol] 1.99 mg/dL 0.64-1.27 [facility] Estimated glomerular filtrat ion rate (GFR) non- AmericanOrdered By: Audra Quinteros on 06-26-2021 GFR/1.73 sq M.predicted among non-blacks MDRD (S/P/Bld) [Vol rate/Area] 33 mL/Min [facility] Ketones Auto test strip (U) [Mass/Vol]Ordered By: Audra Quinteros on 06-26-2021 Ketones (U) [Mass/Vol] Negative Negative [facility] Laboratory - Microbiology an d Antimicrobial susceptibilityOrdered By: Omid Myrick on 06-26-2021 SARS-CoV-2 (COVID-19) RNA JOYCE+probe Ql (Unsp spec) N/A [facility] Laboratory - UrinalysisOrder ed By: Audra Quinteros on 06-26-2021 Hyaline casts LM Ql (Urine sed) 0-8 [LPF] [facility] Nitrite Test strip Ql (U)Ord ered By: Audra Quinteros on 06-26-2021 Nitrite Ql (U) Negative Negative [facility] No Panel InformationOrdered By: Audra Quinteros on 06-26-2021 Estimated GFR () 40 mL/Min [facility] Comment on above: GFR estimated refere nce range: According to KDOQI guidelines, <60 ml/min/1.73m2 is sufficient to diagnose a patient with chronic kidney disease. Pharmacy Creatinine Clearance (Chem 39.80 [facility] Protein Auto test strip (U) [Mass/Vol]Ordered By: Audra Quinteros on 06-26-2021 Protein (U) [Mass/Vol] 300 mg/dL Negative [facility] Serum or plasma calcium abhijit urement (mass/volume)Ordered By: Audra Quinteros on 06-26-2021 Calcium [Mass/Vol] 8.9 mg/dL 8.2-10.2 [facility] Serum or plasma chloride marylin surement (moles/volume)Ordered By: Audra Quinteros on 06-26-2021 Chloride [Moles/Vol] 105 mmol/L 95-114 [facility] Serum or plasma glucose abhijit urement (mass/volume)Ordered By: Audra Quinteros on 06-26-2021 Glucose [Mass/Vol] 194 mg/dL 70-100 [facility] Comment on above: ADA recommended refe rence rangeRandom Glucose Reference Range is dependent on time and content of last meal. Glucose of more than 200 mg/dL in a nonstressed, ambulatory subject supports the diagnosis of Diabetes Mellitus. Serum or plasma potassium me asurement (moles/volume)Ordered By: Omid Myrick on 06-26-2021 Potassium [Moles/Vol] 4.0 mmol/L 3.5-5.1 [facility] Serum or plasma sodium measu rement (moles/volume)Ordered By: Audra Quinteros on 06-26-2021 Sodium [Moles/Vol] 140 mmol/L 136-146 [facility] Serum or plasma total carbon dioxide measurement (moles/volume)Ordered By: Audra Quinteros on 06-26-2021 CO2 [Moles/Vol] 23.8 mmol/L 22.0-30.0 [facility] Serum or plasma urea nitroge n measurement (mass/volume)Ordered By: Audra Quinteros on 06-26-2021 Urea nitrogen [Mass/Vol] 39 mg/dL 9-23 [facility] Specific gravity Auto test s trip (U) [Rel density]Ordered By: Audra Quinteros on 06-26-2021 Specific gravity (U) [Rel density] 1.015 1.001-1.03 0 [facility] Squamous epithelial cells de tection in urine sediment by light microscopyOrdered By: Audra Quinteros on 06-26-2021 Epithelial cells.squamous LM Ql (Urine sed) None seen [HPF] [facility] Urine bacteria detection by automated methodOrdered By: Audra Quinteros on 06-26-2021 Bacteria Auto Ql (U) None seen None Seen [facility] Urine clarity by refractomet ry automatedOrdered By: Audra Quinteros on 06-26-2021 Clarity Refractometry automated (U) Clear Clear [facility] Urine glucose measurement by automated test strip (mass/volume)Ordered By: Audra Quinteros on 06-26-2021 Glucose Auto test strip (U) [Mass/Vol] Normal mg/dL Normal [facility] Urine hemoglobin detection b y automated test stripOrdered By: Audra Quinteros on 06-26-2021 Hemoglobin Auto test strip Ql (U) Negative Negative [facility] Urine leukocyte esterase det ection by automated test stripOrdered By: Audra Quinteros on 06-26-2021 Leukocyte esterase Auto test strip Ql (U) Negative Negative [facility] Urine sodium measurement (mo les/volume)Ordered By: Audra Quinteros on 06-26-2021 Sodium (U) [Moles/Vol] 94 mmol/L [facility] Comment on above: No reference range e stablished Urobilinogen Auto test strip (U) [Mass/Vol]Ordered By: Audra Quinteros on 06-26-2021 Urobilinogen (U) [Mass/Vol] Normal mg/dL Normal [facility] pH Auto test strip (U)Ordere d By: Audra Quinteros on 06-26-2021 pH (U) 5.5 [pH] 5.0-9.0 [facility] Activated partial thrombopla stin time (aPTT) in platelet poor plasma by coagulation aOrdered By: Andrew Hernández on 06-25-2021 aPTT Coag (PPP) [Time] 33.4 s 25.1-36.5 [facility] Albumin [Mass/volume] in Ser um or PlasmaOrdered By: Andrew Hernández on 06-25-2021 Albumin [Mass/Vol] 3.4 g/dL 3.2-5.5 [facility] Basophils Auto (Bld) [#/Vol] Ordered By: Andrew Hernández on 06-25-2021 Basophils (Bld) [#/Vol] 0.0 10*3/uL 0.0-0.2 [facility] Basophils/100 WBC Auto (Bld) Ordered By: Andrew Hernández on 06-25-2021 Basophils/100 WBC (Bld) 0.6 % [facility] Blood hemoglobin measurement (mass/volume)Ordered By: Andrew Hernández on 06-25-2021 Hemoglobin (Bld) [Mass/Vol] 11.8 g/dL 13.0-17.0 [facility] Blood leukocytes automated c ount (number/volume)Ordered By: Andrew Hernández on 06-25-2021 WBC (Bld) [#/Vol] 7.5 10*3/uL 4.5-11.0 [facility] COVID-19 SOFIAOrdered By: Prasanna Hernández on 06-25-2021 SARS-CoV+SARS-CoV-2 (COVID-19) Ag IA.rapid Ql (Resp) Negative Negative [facility] Comment on above: This is a duplicate Jessi SARS Antigen (GABI) result to be used for statistical tracking purpose only. Creatinine and Glomerular fi ltration rate.predicted panel (S/P/Bld)Ordered By: Andrew Hernández on 06-25-2021 Creatinine [Mass/Vol] 2.25 mg/dL 0.64-1.27 [facility] Eosinophils Auto (Bld) [#/Vo l]Ordered By: Andrew Hernández on 06-25-2021 Eosinophils (Bld) [#/Vol] 0.3 10*3/uL 0.0-0.45 [facility] Eosinophils/100 WBC Auto (Bl d)Ordered By: Andrew Hernández on 06-25-2021 Eosinophils/100 WBC (Bld) 4.6 % [facility] Erythrocyte distribution wid th Auto (RBC) [Ratio]Ordered By: Andrew Hernández on 06-25-2021 Erythrocyte distribution width (RBC) [Ratio] 16.1 % 12.0-14.8 [facility] Erythrocyte sedimentation ra te by Photometric methodOrdered By: Andrew Hernández on 06-25-2021 ESR Photometric method (Bld) [Velocity] 39 mm/hr 0-19 [facility] Estimated glomerular filtrat ion rate (GFR) non- AmericanOrdered By: Andrew Hernández on 06-25-2021 GFR/1.73 sq M.predicted among non-blacks MDRD (S/P/Bld) [Vol rate/Area] 28 mL/Min [facility] Globulin Calc (S) [Mass/Vol] Ordered By: Andrew Hernández on 06-25-2021 Globulin (S) [Mass/Vol] 3.2 g/dL [facility] Hematocrit Auto (Bld) [Volum e fraction]Ordered By: Andrew Hernández on 06-25-2021 Hematocrit (Bld) [Volume fraction] 36.2 % 38.8-50.0 [facility] Laboratory - Chemistry and C hemistry - challengeOrdered By: Andrew Hernández on 06-25-2021 Natriuretic peptide B (Bld) [Mass/Vol] 165.0 pg/mL 5-100 [facility] Laboratory - CoagulationOrde red By: Andrew Hernández on 06-25-2021 PT Coag (PPP) [Time] 11.9 s 9.0-12.9 [facility] Laboratory - Hematology and Cell countsOrdered By: Andrew Hernández on 06-25-2021 Nucleated RBC/100 WBC (Bld) [Ratio] 0.1 % 0-0.5 [facility] Lymphocytes Auto (Bld) [#/Vo l]Ordered By: Andrew Hernández on 06-25-2021 Lymphocytes (Bld) [#/Vol] 1.0 10*3/uL 1.00-4.8 [facility] Lymphocytes/100 WBC Auto (Bl d)Ordered By: Andrew Hernández on 06-25-2021 Lymphocytes/100 WBC (Bld) 12.9 % [facility] MCH Auto (RBC) [Entitic mass ]Ordered By: Andrew Hernández on 06-25-2021 MCH (RBC) [Entitic mass] 28.1 pg 27.5-35.2 [facility] MCHC Auto (RBC) [Mass/Vol]Or dered By: Andrew Hernández on 06-25-2021 MCHC (RBC) [Mass/Vol] 32.7 g/dL 32.5-35.6 [facility] MCV Auto (RBC) [Entitic vol] Ordered By: Andrew Hernández on 06-25-2021 MCV (RBC) [Entitic vol] 86.0 fL 83.5-101 [facility] Monocytes Auto (Bld) [#/Vol] Ordered By: Andrew Hernández on 06-25-2021 Monocytes (Bld) [#/Vol] 0.5 10*3/uL 0.0-0.8 [facility] Monocytes/100 WBC Auto (Bld) Ordered By: Andrew Hernández on 06-25-2021 Monocytes/100 WBC (Bld) 7.3 % [facility] Neutrophils Auto (Bld) [#/Vo l]Ordered By: Andrew Hernández on 06-25-2021 Neutrophils (Bld) [#/Vol] 5.6 10*3/uL 1.8-7.7 [facility] Neutrophils/100 WBC Auto (Bl d)Ordered By: Andrew Hernández on 06-25-2021 Neutrophils/100 WBC (Bld) 74.6 % [facility] No Panel InformationOrdered By: Andrew Hernández on 06-25-2021 SARS Antigen (LFIA) [facility] Estimated GFR () 34 mL/Min [facility] Comment on above: GFR estimated refere nce range: According to KDOQI guidelines, <60 ml/min/1.73m2 is sufficient to diagnose a patient with chronic kidney disease. Pharmacy Creatinine Clearance (Chem 365.00 [facility] Platelet mean volume Auto (B ld) [Entitic vol]Ordered By: Andrew Hernández on 06-25-2021 Platelet mean volume (Bld) [Entitic vol] 10.0 fL 6.6-10.1 [facility] Platelet poor plasma interna tional normalized ratio (INR) by coagulation assay (relatOrdered By: Andrew Hernández on 06-25-2021 INR Coag (PPP) [Relative time] 1.1 {INR} [facility] Comment on above: INR Therapeutic Rang [...] 06-25-2021 Platelets (Bld) [#/Vol] 171 10*3/uL 150-450 [facility] Comment on above: Delta: 119 on 0453 Protein [Mass/volume] in Ser um or PlasmaOrdered By: Andrew Hernández on 06-25-2021 Protein [Mass/Vol] 6.6 g/dL 6.1-7.9 [facility] RBC Auto (Bld) [#/Vol]Ordere d By: Andrew Hernández on 06-25-2021 RBC (Bld) [#/Vol] 4.21 10*6/uL 3.90-5.60 [facility] Serum or plasma C reactive p rotein measurement (mass/volume)Ordered By: Andrew Hernández on 06-25-2021 CRP [Mass/Vol] 0.9 mg/dL 0.0-1.0 [facility] Serum or plasma alanine lopez otransferase measurement without P-5'-P (enzymatic activiOrdered By: Andrew Hernández on 06-25-2021 ALT No additional P-5'-P [Catalytic activity/Vol] 13 U/L 10-60 [facility] Serum or plasma albumin/glob ulin mass ratioOrdered By: Andrew Hernández on 06-25-2021 Albumin/Globulin [Mass ratio] 1.1 {ratio} [facility] Serum or plasma alkaline cande sphatase measurement (enzymatic activity/volume)Ordered By: Andrew Hernández on 06-25-2021 ALP [Catalytic activity/Vol] 57 U/L 32-92 [facility] Serum or plasma aspartate am inotransferase measurement (enzymatic activity/volume)Ordered By: Andrew Hernández on 06-25-2021 AST [Catalytic activity/Vol] 15 U/L 10-42 [facility] Serum or plasma calcium abhijit urement (mass/volume)Ordered By: Andrew Hernández on 06-25-2021 Calcium [Mass/Vol] 9.2 mg/dL 8.2-10.2 [facility] Serum or plasma chloride marylin surement (moles/volume)Ordered By: Andrew Hernández on 06-25-2021 Chloride [Moles/Vol] 106 mmol/L 95-114 [facility] Serum or plasma glucose abhijit urement (mass/volume)Ordered By: Andrew Hernández on 06-25-2021 Glucose [Mass/Vol] 177 mg/dL 70-100 [facility] Comment on above: ADA recommended refe rence rangeRandom Glucose Reference Range is dependent on time and content of last meal. Glucose of more than 200 mg/dL in a nonstressed, ambulatory subject supports the diagnosis of Diabetes Mellitus. Serum or plasma potassium me asurement (moles/volume)Ordered By: Andrew Hernández on 06-25-2021 Potassium [Moles/Vol] 4.2 mmol/L 3.5-5.1 [facility] Serum or plasma sodium measu rement (moles/volume)Ordered By: Andrew Hernández on 06-25-2021 Sodium [Moles/Vol] 142 mmol/L 136-146 [facility] Serum or plasma total biliru bin measurement (mass/volume)Ordered By: Andrew Hernández on 06-25-2021 Bilirubin [Mass/Vol] 0.4 mg/dL 0.3-1.2 [facility] Serum or plasma total carbon dioxide measurement (moles/volume)Ordered By: Andrew Hernández on 06-25-2021 CO2 [Moles/Vol] 24.1 mmol/L 22.0-30.0 [facility] Serum or plasma urea nitroge n measurement (mass/volume)Ordered By: Andrew Hernández on 06-25-2021 Urea nitrogen [Mass/Vol] 41 mg/dL 9-23 [facility] Troponin I.cardiac [Mass/vol ume] in Serum or Plasma by High sensitivity methodOrdered By: Andrew Hernández on 06-25-2021 Troponin I.cardiac High sensitivity method [Mass/Vol] 12 pg/mL 0-20 [facility] Albumin [Mass/volume] in Ser um or PlasmaOrdered By: Julee Davies on 06-24-2021 Albumin [Mass/Vol] 2.9 g/dL 3.2-5.5 [facility] Basophils Auto (Bld) [#/Vol] Ordered By: Julee Davies on 06-24-2021 Basophils (Bld) [#/Vol] 0.0 10*3/uL 0.0-0.2 [facility] Basophils/100 WBC Auto (Bld) Ordered By: Julee Davies on 06-24-2021 Basophils/100 WBC (Bld) 0.6 % [facility] Blood hemoglobin measurement (mass/volume)Ordered By: Julee Davies on 06-24-2021 Hemoglobin (Bld) [Mass/Vol] 10.8 g/dL 13.0-17.0 [facility] Blood leukocytes automated c ount (number/volume)Ordered By: Julee Davies on 06-24-2021 WBC (Bld) [#/Vol] 6.6 10*3/uL 4.5-11.0 [facility] Creatinine and Glomerular fi ltration rate.predicted panel (S/P/Bld)Ordered By: Julee Davies on 06-24-2021 Creatinine [Mass/Vol] 2.17 mg/dL 0.64-1.27 [facility] Eosinophils Auto (Bld) [#/Vo l]Ordered By: Julee Davies on 06-24-2021 Eosinophils (Bld) [#/Vol] 0.3 10*3/uL 0.0-0.45 [facility] Eosinophils/100 WBC Auto (Bl d)Ordered By: Julee Davies on 06-24-2021 Eosinophils/100 WBC (Bld) 5.2 % [facility] Erythrocyte distribution wid th Auto (RBC) [Ratio]Ordered By: Julee Davies on 06-24-2021 Erythrocyte distribution width (RBC) [Ratio] 15.8 % 12.0-14.8 [facility] Estimated glomerular filtrat ion rate (GFR) non- AmericanOrdered By: Julee Davies on 06-24-2021 GFR/1.73 sq M.predicted among non-blacks MDRD (S/P/Bld) [Vol rate/Area] 30 mL/Min [facility] Globulin Calc (S) [Mass/Vol] Ordered By: Julee Davies on 06-24-2021 Globulin (S) [Mass/Vol] 2.4 g/dL [facility] Hematocrit Auto (Bld) [Volum e fraction]Ordered By: Julee Davies on 06-24-2021 Hematocrit (Bld) [Volume fraction] 33.0 % 38.8-50.0 [facility] Laboratory - Chemistry and C hemistry - challengeOrdered By: Julee Davies on 06-24-2021 Magnesium [Mass/Vol] 1.9 mg/dL 1.6-2.6 [facility] Natriuretic peptide B (Bld) [Mass/Vol] 224.0 pg/mL 5-100 [facility] Laboratory - Hematology and Cell countsOrdered By: Julee Davies on 06-24-2021 Nucleated RBC/100 WBC (Bld) [Ratio] 0.1 % 0-0.5 [facility] Lymphocytes Auto (Bld) [#/Vo l]Ordered By: Julee Davies on 06-24-2021 Lymphocytes (Bld) [#/Vol] 0.8 10*3/uL 1.00-4.8 [facility] Lymphocytes/100 WBC Auto (Bl d)Ordered By: Julee Davies on 06-24-2021 Lymphocytes/100 WBC (Bld) 11.4 % [facility] MCH Auto (RBC) [Entitic mass ]Ordered By: Julee Davies on 06-24-2021 MCH (RBC) [Entitic mass] 27.7 pg 27.5-35.2 [facility] MCHC Auto (RBC) [Mass/Vol]Or dered By: Julee Davies on 06-24-2021 MCHC (RBC) [Mass/Vol] 32.7 g/dL 32.5-35.6 [facility] MCV Auto (RBC) [Entitic vol] Ordered By: Julee Davies on 06-24-2021 MCV (RBC) [Entitic vol] 84.6 fL 83.5-101 [facility] Monocytes Auto (Bld) [#/Vol] Ordered By: Julee Davies on 06-24-2021 Monocytes (Bld) [#/Vol] 0.5 10*3/uL 0.0-0.8 [facility] Monocytes/100 WBC Auto (Bld) Ordered By: Julee Davies on 06-24-2021 Monocytes/100 WBC (Bld) 7.4 % [facility] Neutrophils Auto (Bld) [#/Vo l]Ordered By: Julee Davies on 06-24-2021 Neutrophils (Bld) [#/Vol] 5.0 10*3/uL 1.8-7.7 [facility] Neutrophils/100 WBC Auto (Bl d)Ordered By: Julee Davies on 06-24-2021 Neutrophils/100 WBC (Bld) 75.4 % [facility] No Panel InformationOrdered By: Julee Davies on 06-24-2021 Estimated GFR () 36 mL/Min [facility] Comment on above: GFR estimated refere nce range: According to KDOQI guidelines, <60 ml/min/1.73m2 is sufficient to diagnose a patient with chronic kidney disease. Pharmacy Creatinine Clearance (Chem N/A [facility] Platelet mean volume Auto (B ld) [Entitic vol]Ordered By: Julee Davies on 06-24-2021 Platelet mean volume (Bld) [Entitic vol] 9.8 fL 6.6-10.1 [facility] Platelets Auto (Bld) [#/Vol] Ordered By: Julee Davies on 06-24-2021 Platelets (Bld) [#/Vol] 119 10*3/uL 150-450 [facility] Protein [Mass/volume] in Ser um or PlasmaOrdered By: Julee Davies on 06-24-2021 Protein [Mass/Vol] 5.3 g/dL 6.1-7.9 [facility] RBC Auto (Bld) [#/Vol]Ordere d By: Julee Davies on 06-24-2021 RBC (Bld) [#/Vol] 3.90 10*6/uL 3.90-5.60 [facility] Serum or plasma alanine lopez otransferase measurement without P-5'-P (enzymatic activiOrdered By: Julee Davies on 06-24-2021 ALT No additional P-5'-P [Catalytic activity/Vol] 7 U/L 10-60 [facility] Serum or plasma albumin/glob ulin mass ratioOrdered By: Julee Davies on 06-24-2021 Albumin/Globulin [Mass ratio] 1.2 {ratio} [facility] Serum or plasma alkaline cande sphatase measurement (enzymatic activity/volume)Ordered By: Julee Davies on 06-24-2021 ALP [Catalytic activity/Vol] 56 U/L 32-92 [facility] Serum or plasma aspartate am inotransferase measurement (enzymatic activity/volume)Ordered By: Julee Davies on 06-24-2021 AST [Catalytic activity/Vol] 13 U/L 10-42 [facility] Serum or plasma calcium abhijit urement (mass/volume)Ordered By: Julee Davies on 06-24-2021 Calcium [Mass/Vol] 8.9 mg/dL 8.2-10.2 [facility] Serum or plasma chloride marylin surement (moles/volume)Ordered By: Julee Davies on 06-24-2021 Chloride [Moles/Vol] 109 mmol/L 95-114 [facility] Serum or plasma glucose abhijit urement (mass/volume)Ordered By: Julee Davies on 06-24-2021 Glucose [Mass/Vol] 160 mg/dL 70-100 [facility] Comment on above: ADA recommended refe rence rangeRandom Glucose Reference Range is dependent on time and content of last meal. Glucose of more than 200 mg/dL in a nonstressed, ambulatory subject supports the diagnosis of Diabetes Mellitus. Serum or plasma potassium me asurement (moles/volume)Ordered By: Julee Davies on 06-24-2021 Potassium [Moles/Vol] 4.1 mmol/L 3.5-5.1 [facility] Serum or plasma sodium measu rement (moles/volume)Ordered By: Julee Davies on 06-24-2021 Sodium [Moles/Vol] 144 mmol/L 136-146 [facility] Serum or plasma total biliru bin measurement (mass/volume)Ordered By: Julee Davies on 06-24-2021 Bilirubin [Mass/Vol] 0.5 mg/dL 0.3-1.2 [facility] Serum or plasma total carbon dioxide measurement (moles/volume)Ordered By: Julee Davies on 06-24-2021 CO2 [Moles/Vol] 25.7 mmol/L 22.0-30.0 [facility] Serum or plasma urea nitroge n measurement (mass/volume)Ordered By: Julee Davies on 06-24-2021 Urea nitrogen [Mass/Vol] 43 mg/dL 9-23 [facility] Tacrolimus [Mass/volume] in BloodOrdered By: Julee Davies on 06-24-2021 Tacrolimus (Bld) [Mass/Vol] 8.1 ng/mL [facility] Comment on above: This test was vane christine and its performance characteristicsdetermined by [facility]. It has not been cleared orapproved by the Food and Drug Administration. Trough (immediately following transplant) 15.0 Trough (steady state, 2 weeks or more after transplant): 3.0 - 8.0 Performed by LC-MS/MS technology.Performed at: [address] [id number] Director: Mynor Nixon MD, Phone: [phone] Albumin [Mass/volume] in Ser um or PlasmaOrdered By: Julee Davies on 05-27-2021 Albumin [Mass/Vol] 3.1 g/dL 3.2-5.5 [facility] Basophils Auto (Bld) [#/Vol] Ordered By: Julee Davies on 05-27-2021 Basophils (Bld) [#/Vol] 0.0 10*3/uL 0.0-0.2 [facility] Basophils/100 WBC Auto (Bld) Ordered By: Julee Davies on 05-27-2021 Basophils/100 WBC (Bld) 0.7 % [facility] Blood hemoglobin measurement (mass/volume)Ordered By: Julee Davies on 05-27-2021 Hemoglobin (Bld) [Mass/Vol] 11.4 g/dL 13.0-17.0 [facility] Blood leukocytes automated c ount (number/volume)Ordered By: Julee Davies on 05-27-2021 WBC (Bld) [#/Vol] 6.1 10*3/uL 4.5-11.0 [facility] Cholesterol [Mass/volume] in Serum or PlasmaOrdered By: Julee Davies on 05-27-2021 Cholesterol [Mass/Vol] 129 mg/dL 140-200 [facility] Comment on above: Chol less than 200 m g/dl low riskChol 201-239 mg/dl borderline riskChol 240 mg/dl and greater high risk Cholesterol in LDL Calc [Mas s/Vol]Ordered By: Julee Davies on 03-08-2022 Cholesterol in LDL [Mass/Vol] 67 mg/dL 0-100 [facility] Comment on above: LDL ATP III CLASSIFI CATIONLDL less than 100 mg/dL OptimalLDL 100-129 mg/dL Near or above optimalLDL 130-159 mg/dL Borderline highLDL 160-189 mg/dL HighLDL greater than 189 mg/dL Very high Cholesterol in VLDL Calc [Ma ss/Vol]Ordered By: Julee Davies on 05-27-2021 Cholesterol in VLDL [Mass/Vol] 27 mg/dL [facility] Creatinine and Glomerular fi ltration rate.predicted panel (S/P/Bld)Ordered By: Julee Davies on 05-27-2021 Creatinine [Mass/Vol] 1.86 mg/dL 0.64-1.27 [facility] Eosinophils Auto (Bld) [#/Vo l]Ordered By: Julee Davies on 05-27-2021 Eosinophils (Bld) [#/Vol] 0.2 10*3/uL 0.0-0.45 [facility] Eosinophils/100 WBC Auto (Bl d)Ordered By: Julee Davies on 05-27-2021 Eosinophils/100 WBC (Bld) 3.7 % [facility] Erythrocyte distribution wid th Auto (RBC) [Ratio]Ordered By: Julee Davies on 05-27-2021 Erythrocyte distribution width (RBC) [Ratio] 14.9 % 12.0-14.8 [facility] Estimated glomerular filtrat ion rate (GFR) non- AmericanOrdered By: Julee Davies on 05-27-2021 GFR/1.73 sq M.predicted among non-blacks MDRD (S/P/Bld) [Vol rate/Area] 35 mL/Min [facility] Globulin Calc (S) [Mass/Vol] Ordered By: Julee Davies on 05-27-2021 Globulin (S) [Mass/Vol] 2.9 g/dL [facility] Glucose mean value [Mass/vol ume] in Blood Estimated from glycated hemoglobinOrdered By: Julee Davies on 05-27-2021 Average glucose Estimated from glycated hemoglobin (Bld) [Mass/Vol] 209 mg/dL [facility] Hematocrit Auto (Bld) [Volum e fraction]Ordered By: Julee Davies on 05-27-2021 Hematocrit (Bld) [Volume fraction] 34.1 % 38.8-50.0 [facility] Hemoglobin A1c percentageOrd ered By: Julee Davies on 05-27-2021 HbA1c (Bld) [Mass fraction] 8.9 % 4.3-5.6 [facility] Comment on above: Increased risk for d iabetes: 5.7 - 6.4diabetes: >6.4glycemic control for adults with diabetes: <7.0 Laboratory - Hematology and Cell countsOrdered By: Julee Davies on 05-27-2021 Nucleated RBC/100 WBC (Bld) [Ratio] 0.2 % 0-0.5 [facility] Lymphocytes Auto (Bld) [#/Vo l]Ordered By: Julee Davies on 05-27-2021 Lymphocytes (Bld) [#/Vol] 1.1 10*3/uL 1.00-4.8 [facility] Lymphocytes/100 WBC Auto (Bl d)Ordered By: Julee Davies on 05-27-2021 Lymphocytes/100 WBC (Bld) 17.9 % [facility] MCH Auto (RBC) [Entitic mass ]Ordered By: Julee Davies on 05-27-2021 MCH (RBC) [Entitic mass] 28.3 pg 27.5-35.2 [facility] MCHC Auto (RBC) [Mass/Vol]Or dered By: Julee Davies on 05-27-2021 MCHC (RBC) [Mass/Vol] 33.5 g/dL 32.5-35.6 [facility] MCV Auto (RBC) [Entitic vol] Ordered By: Julee Davies on 05-27-2021 MCV (RBC) [Entitic vol] 84.5 fL 83.5-101 [facility] Monocytes Auto (Bld) [#/Vol] Ordered By: Julee Davies on 05-27-2021 Monocytes (Bld) [#/Vol] 0.5 10*3/uL 0.0-0.8 [facility] Monocytes/100 WBC Auto (Bld) Ordered By: Julee Davise on 05-27-2021 Monocytes/100 WBC (Bld) 7.9 % [facility] Neutrophils Auto (Bld) [#/Vo l]Ordered By: Julee Davies on 05-27-2021 Neutrophils (Bld) [#/Vol] 4.3 10*3/uL 1.8-7.7 [facility] Neutrophils/100 WBC Auto (Bl d)Ordered By: Julee Davies on 05-27-2021 Neutrophils/100 WBC (Bld) 69.8 % [facility] No Panel InformationOrdered By: Julee Davies on 05-27-2021 25-Hydroxy Vitamin D Total 23.8 ng/mL 30-100 [facility] Comment on above: VITAMIN D STATUS 25( [place])VITAMIN D RANGE (ng/mL) Deficient <20 Insufficient 20 to <30Sufficient 30 to 100Reference: Ely MF,Brad NC, Kristy ORTEGA, et al. Evaluation,treatment, and prevention of vitamin D deficiency; an Endocrine Society clinical practice guideline. JCEM. 2010; 96(7):1911-30. Estimated GFR () 43 mL/Min [facility] Comment on above: GFR estimated refere nce range: According to KDOQI guidelines, <60 ml/min/1.73m2 is sufficient to diagnose a patient with chronic kidney disease. Pharmacy Creatinine Clearance (Chem N/A [facility] Platelet Estimate Decreased Normal [facility] Platelet Morphology Comment Normal Normal [facility] Platelet mean volume Auto (B ld) [Entitic vol]Ordered By: Julee Davies on 05-27-2021 Platelet mean volume (Bld) [Entitic vol] 10.6 fL 6.6-10.1 [facility] Platelets Auto (Bld) [#/Vol] Ordered By: Julee Davies on 05-27-2021 Platelets (Bld) [#/Vol] 129 10*3/uL 150-450 [facility] Protein [Mass/volume] in Ser um or PlasmaOrdered By: Julee Davies on 05-27-2021 Protein [Mass/Vol] 6.0 g/dL 6.1-7.9 [facility] RBC Auto (Bld) [#/Vol]Ordere d By: Julee Davies on 05-27-2021 RBC (Bld) [#/Vol] 4.03 10*6/uL 3.90-5.60 [facility] RBC morphologyOrdered By: Maurice Davies on 05-27-2021 RBC morphology finding Nom (Bld) Normal [facility] Serum or plasma alanine lopez otransferase measurement without P-5'-P (enzymatic activiOrdered By: Julee Davies on 05-27-2021 ALT No additional P-5'-P [Catalytic activity/Vol] 7 U/L 10-60 [facility] Serum or plasma albumin/glob ulin mass ratioOrdered By: Julee Davies on 05-27-2021 Albumin/Globulin [Mass ratio] 1.1 {ratio} [facility] Serum or plasma alkaline cande sphatase measurement (enzymatic activity/volume)Ordered By: Julee Davies on 05-27-2021 ALP [Catalytic activity/Vol] 52 U/L 32-92 [facility] Serum or plasma aspartate am inotransferase measurement (enzymatic activity/volume)Ordered By: Julee Davies on 05-27-2021 AST [Catalytic activity/Vol] 11 U/L 10-42 [facility] Serum or plasma calcium abhijit urement (mass/volume)Ordered By: Julee Davies on 05-27-2021 Calcium [Mass/Vol] 9.0 mg/dL 8.2-10.2 [facility] Serum or plasma chloride marylin surement (moles/volume)Ordered By: Julee Davies on 05-27-2021 Chloride [Moles/Vol] 104 mmol/L 95-114 [facility] Serum or plasma glucose abhijit urement (mass/volume)Ordered By: Julee Davies on 05-27-2021 Glucose [Mass/Vol] 183 mg/dL 70-100 [facility] Comment on above: ADA recommended refe rence rangeRandom Glucose Reference Range is dependent on time and content of last meal. Glucose of more than 200 mg/dL in a nonstressed, ambulatory subject supports the diagnosis of Diabetes Mellitus. Serum or plasma high density lipoprotein (HDL) cholesterol measurementOrdered By: Julee Davies on 05-27-2021 Cholesterol in HDL [Mass/Vol] 35 mg/dL 29-71 [facility] Comment on above: HDL CHOL ATP-III CLA SSIFICATION Cardiovascular RiskHDL > or equal to 60 mg/dL LOWHDL < 40 mg/dL HIGH Serum or plasma potassium me asurement (moles/volume)Ordered By: Julee Davies on 05-27-2021 Potassium [Moles/Vol] 4.1 mmol/L 3.5-5.1 [facility] Serum or plasma sodium measu rement (moles/volume)Ordered By: Julee Davies on 05-27-2021 Sodium [Moles/Vol] 140 mmol/L 136-146 [facility] Serum or plasma total biliru bin measurement (mass/volume)Ordered By: Julee Davies on 05-27-2021 Bilirubin [Mass/Vol] 0.4 mg/dL 0.3-1.2 [facility] Serum or plasma total carbon dioxide measurement (moles/volume)Ordered By: Julee Davies on 05-27-2021 CO2 [Moles/Vol] 26.1 mmol/L 22.0-30.0 [facility] Serum or plasma total choles terol/high density lipoprotein (HDL) cholesterol mass ratOrdered By: Julee Davies on 05-27-2021 Cholesterol.total/Denise sterol in HDL [Mass ratio] 3.7 {ratio} [facility] Serum or plasma urea nitroge n measurement (mass/volume)Ordered By: Julee Davies on 05-27-2021 Urea nitrogen [Mass/Vol] 38 mg/dL 9-23 [facility] TSH DL <= 0.005 mIU/L QnOrde red By: Julee Davies on 05-27-2021 TSH Qn 4.10 m[IU]/L 0.45-5.33 [facility] Triglyceride [Mass/volume] i n Serum or PlasmaOrdered By: Julee Davies on 05-27-2021 Triglyceride [Mass/Vol] 136 mg/dL 35-149 [facility] Comment on above: TRIG ATP III [...] Authorization (EUA) and has been verified by [facility] ([facility]). This test is only authorized for the duration of time that circumstances exist to justify the authorization of the emergency use of in vitro diagnostic tests for the detection of SARS-CoV-2 virus and/or diagnosis of COVID-19 infection under section 564(b)(1) of the Act, 21 U.S.C. 360bbb-3(b)(1), unless the authorization is terminated or revoked sooner. [facility] is certified under CLIA-88 as qualified to perform high complexity testing. Testing is performed in the [facility] located at [address] [place] [address].SARS-CoV-2/Flu/RSV Multiplex Test: Fact sheet for providers: https://www.fda.gov/media/882503/downloadFact sheet for patients: https://www.fda.gov/media/698894/download Coronavirus 2019 RNA by PCR, Screening Asymptomtic Canceled [facility] woo-Ellyn SJW [address] DO Work Phone: Comment on above: SOURCE: Nasal, Nasop haryngeal.This test has received FDA Emergency Use Authorization (EUA) and has been verified by [facility] ([facility]). This test is only authorized for the duration of time that circumstances exist to justify the authorization of the emergency use of in vitro diagnostic tests for the detection of SARS-CoV-2 virus and/or diagnosis of COVID-19 infection under section 564(b)(1) of the Act, 21 U.S.C. 360bbb-3(b)(1), unless the authorization is terminated or revoked sooner. [facility] is certified under CLIA-88 as qualified to perform high complexity testing. Testing is performed in the [facility] located at [address] [place] [address].SARS-CoV-2/Flu/RSV Multiplex Test: Fact sheet for providers: https://www.fda.gov/media/871353/downloadFact sheet for patients: https://www.fda.gov/media/501991/download Laboratory - Chemistry and C hemistry - challengeon 12-24-2020 Glucose [Mass/Vol] 203 mg/dL above high threshold 74 - 99 [facility]iol[facility] 260 DO Work Phone: Laboratory - Hematology and Cell countson 12-24-2020 Erythrocyte distribution width (RBC) [Ratio] 12.7 % See Below [facility] 260 DO Work Phone: Comment on [...] [Mass/Vol] 32.8 g/dL See Below MG- [facility]iolo [facility]-[place] [facility] 260 DO Work Phone: Comment on above: Reference Range: 32. 0 - 36.0 MCV (RBC) [Entitic vol] 91 fL 80 - 100 M G-Cardiolo gy-[facility] 260 DO Work Phone: Platelets (Bld) [#/Vol] 105 10*3/uL below lo w threshold 150 - 450 MG-Cardiolo gy-[place] [facility] 260 DO Work Phone: RBC (Bld) [#/Vol] 3.92 {x10E12/L} below low threshold See Below [facility] 260 DO Work Phone: Comment on above: Reference Range: 4.5 0 - 5.90 WBC (Bld) [#/Vol] 5.1 10*3/uL 4.4 - 11.3 MG-Car diolo gy-[facility] 260 DO Work Phone: No Panel Informationon 12-24 Please click on the link to view the study images Normal [facility] [facility] 260 DO Work Phone: 0.0 {/100_WBC} 0.0-0.0 [facility]iol o [facility] [facility] 260 DO Work Phone: Renal Function Panelon 12-24 Albumin BCP dye [Mass/Vol] 3.6 g/dL 3.4 - 5.0 [facility] [facility] 260 DO Work Phone: Anion gap [Moles/Vol] 15 mmol/L 10 - 20 [facility]- [facility] 260 DO Work Phone: Calcium [Mass/Vol] 9.0 mg/dL 8.6 - 10.6 [facility]-Car diolo [facility] 260 DO Work Phone: [phone] Chloride [Moles/Vol] 109 mmol/L above high threshold 98 - 107 [facility] 260 DO Work Phone: CO2 [Moles/Vol] 24 mmol/L 21 - 32 MG-Cardio lo gy-[facility] 260 DO Work Phone: Creatinine [Mass/Vol] 1.77 mg/dL above high threshold See Below [facility] [facility] 260 DO Work Phone: Comment on above: Reference Range: 0.5 0 - 1.30 Glucose [Mass/Vol] 195 mg/dL above high threshold 74 - 99 [facility] 260 DO Work Phone: Phosphate [Mass/Vol] [...] Function Panel 45 {mL/min/1.73m2} Abnormal >60 [facility] 260 DO Work Phone: Comment on above: CALCULATIONS OF ERNST MATED GFR ARE PERFORMED USING THE MDRD STUDY EQUATION FOR THE IDMS-TRACEABLE CREATININE METHODS. CLIN CHEM 2007;53:766-72 Renal Function Panel 37 {mL/min/1.73m2} Abnormal >60 [facility] 260 DO Work Phone: Tacrolimuson 12-24-2020 Tacrolimus (Bld) [Mass/Vol] 5.4 ng/mL 2.0 - 15.0 [facility] 260 DO Work Phone: Comment on above: NOTE: Result was obt ained using a chemiluminescent microparticle immunoassay (CMIA) on the [employer] i system.Optimal therapeutic ranges for immuno-suppressant drugs depend upon an individualpatient's current clinical state, type oforgan transplant, time post-transplant,co-administration of other immunosuppressants,and other clinical factors. The results ofthis test should be correlated with additionalclinical and laboratory data before changesin treatment regimens are made. CT Head without Contraston 1 CT Head limited WO contrast Normal [facility] 260 DO Work Phone: [phone] Laboratory - Chemistry and C hemistry - challengeon 12-23-2020 Glucose [Mass/Vol] 151 mg/dL above high threshold 74 - 99 [facility] 260 DO Work Phone: [phone] Glucose [Mass/Vol] 241 mg/dL above high threshold 74 - 99 [facility] 260 DO Work Phone: [phone] Glucose [Mass/Vol] 195 mg/dL above high threshold 74 - 99 [facility] [facility] 260 DO Work Phone: [phone] Glucose [Mass/Vol] 160 mg/dL above high threshold 74 - 99 [facility] [facility] 260 DO Work Phone: [phone] Laboratory - Hematology and Cell countson 12-23-2020 Erythrocyte distribution width (RBC) [Ratio] 12.5 % See Below [facility] 260 DO Work Phone: [phone] Comment on above: Reference Range: 11. 5 - 14.5 Hematocrit (Bld) [Volume fraction] 34.3 % below low threshold See Below [facility] 260 DO Work Phone: [phone] Comment on above: Reference Range: 41. 0 - 52.0 Hemoglobin (Bld) [Mass/Vol] 11.1 g/dL below low threshold See Below [facility] 260 DO Work Phone: [phone] Comment on above: Reference Range: 13. 5 - 17.5 MCHC (RBC) [Mass/Vol] 32.4 g/dL See Below MG- Cardiolo gy-[facility] 260 DO Work Phone: [phone] Comment on above: Reference Range: 32. 0 - 36.0 MCV (RBC) [Entitic vol] 90 fL 80 - 100 M G-Cardiolo gy-[facility] 260 DO Work Phone: [phone] Platelets (Bld) [#/Vol] 106 10*3/uL below lo w threshold 150 - 450 [facility]iol[facility] 260 DO Work Phone: [phone] RBC (Bld) [#/Vol] 3.83 {x10E12/L} below low threshold See Below [facility]-Cardiol[facility] gy[facility] 260 DO Work Phone: [phone] Comment on above: Reference Range: 4.5 0 - 5.90 WBC (Bld) [#/Vol] 5.2 10*3/uL 4.4 - 11.3 MG-Car diolo gy-[place] 260 DO Work Phone: [phone] No Panel Informationon 12-23 0.0 {/100_WBC} 0.0-0.0 [facility]iol o [facility] [facility] 260 DO Work Phone: [phone] Renal Function Panelon 12-23 Albumin BCP dye [Mass/Vol] 3.6 g/dL 3.4 - 5.0 [facility] 260 DO Work Phone: [phone] Anion gap [Moles/Vol] 14 mmol/L 10 - 20 MG- Cardiolo gy[facility] 260 DO Work Phone: [phone] Calcium [Mass/Vol] 8.9 mg/dL 8.6 - 10.6 MG-Car diolo gy-[facility] 260 DO Work Phone: [phone] Chloride [Moles/Vol] 109 mmol/L above high threshold 98 - 107 [facility] [facility] 260 DO Work Phone: [phone] CO2 [Moles/Vol] 23 mmol/L 21 - 32 MG-Cardio lo gy[facility] [facility] 260 DO Work Phone: [phone] Creatinine [Mass/Vol] 1.71 mg/dL above high threshold See Below [facility] 260 DO Work Phone: Comment on above: Reference Range: 0.5 0 - 1.30 Glucose [Mass/Vol] 146 mg/dL above high threshold 74 - 99 [facility] [facility] 260 DO Work Phone: Phosphate [Mass/Vol] [...] 4.2 mmol/L 3.5 - 5.3 MG- Cardiol[facility] [facility] 260 DO Work Phone: Sodium [Moles/Vol] 142 mmol/L 136 - 145 MG-Car diolo gy-[place] 260 DO Work Phone: Urea nitrogen [Mass/Vol] 50 mg/dL above high threshold 6 - 23 [facility] 260 DO Work Phone: Renal Function Panel 47 {mL/min/1.73m2} Abnormal >60 [facility] [facility] 260 DO Work Phone: Comment on above: CALCULATIONS OF ERNST MATED GFR ARE PERFORMED USING THE MDRD STUDY EQUATION FOR THE IDMS-TRACEABLE CREATININE METHODS. CLIN CHEM 2007;53:766-72 Renal Function Panel 39 {mL/min/1.73m2} Abnormal >60 [facility] 260 DO Work Phone: Tacrolimuson 12-23-2020 Tacrolimus (Bld) [Mass/Vol] 5.9 ng/mL 2.0 - 15.0 [facility] [facility] 260 DO Work Phone: Comment on above: NOTE: Result was obt ained using a chemiluminescent microparticle immunoassay (CMIA) on the [employer] i system.Optimal therapeutic ranges for immuno-suppressant drugs [...] [facility] 260 DO Work Phone: [phone] Glucose [Mass/Vol] 146 mg/dL above high threshold 74 - 99 [facility] 260 DO Work Phone: [phone] Glucose [Mass/Vol] 217 mg/dL above high threshold 74 - 99 [facility] [facility] 260 DO Work Phone: [phone] Glucose [Mass/Vol] 145 mg/dL above high threshold 74 - 99 [facility] 260 DO Work Phone: [phone] Glucose [Mass/Vol] 142 mg/dL above high threshold 74 - 99 [facility] [facility] 260 DO Work Phone: [phone] Laboratory - Hematology and Cell countson 12-22-2020 Erythrocyte distribution width (RBC) [Ratio] 12.6 % See Below [facility] [facility] 260 DO Work Phone: [phone] Comment on above: Reference Range: 11. 5 - 14.5 Hematocrit (Bld) [Volume fraction] 33.0 % below low threshold See Below [facility] 260 DO Work Phone: Comment on above: Reference Range: 41. 0 - 52.0 Hemoglobin (Bld) [Mass/Vol] 10.7 g/dL below low threshold See Below [facility] [facility] 260 DO Work Phone: Comment on above: Reference Range: 13. 5 - 17.5 MCHC (RBC) [Mass/Vol] 32.4 g/dL See Below MG- Cardiolo gy-[facility] 260 DO Work Phone: [phone] Comment on above: Reference Range: 32. 0 - 36.0 MCV (RBC) [Entitic vol] 91 fL 80 - 100 M G-Cardiol[facility] 260 DO Work Phone: [phone] Platelets (Bld) [#/Vol] 107 10*3/uL below lo w threshold 150 - 450 MG-[facility]iol[facility] gy[facility] 260 DO Work Phone: [phone] RBC (Bld) [#/Vol] 3.62 {x10E12/L} below low threshold See Below [facility] 260 DO Work Phone: [phone] Comment on above: Reference Range: 4.5 0 - 5.90 WBC (Bld) [#/Vol] 5.0 10*3/uL 4.4 - 11.3 MG-Car diolo gy-[place] 260 DO Work Phone: [phone] No Panel Informationon 12-22 0.0 {/100_WBC} 0.0-0.0 MG-Cardiol o gy-[facility] 260 DO Work Phone: [phone] Renal Function Panelon 12-22 Albumin BCP dye [Mass/Vol] 3.5 g/dL 3.4 - 5.0 [facility] [facility] 260 DO Work Phone: [phone] Anion gap [Moles/Vol] 15 mmol/L 10 - 20 MG- [facility] [facility] 260 DO Work Phone: [phone] Calcium [Mass/Vol] 8.9 mg/dL 8.6 - 10.6 MG-Car diolo gy-[place] [facility] 260 DO Work Phone: [phone] Chloride [Moles/Vol] 111 mmol/L above high threshold 98 - 107 MG-[facility]iol[facility] [facility] 260 DO Work Phone: [phone] CO2 [Moles/Vol] 23 mmol/L 21 - 32 MG-Cardio lo gy-[place] [facility] 260 DO Work Phone: Creatinine [Mass/Vol] [...] Function Panel 39 {mL/min/1.73m2} Abnormal >60 [facility] [facility] 260 DO Work Phone: Comment on [...] a chemiluminescent microparticle immunoassay (CMIA) on the [employer] i system.Optimal therapeutic ranges for immuno-suppressant drugs depend upon an individualpatient's current clinical state, type oforgan transplant, time post-transplant,co-administration of other immunosuppressants,and other clinical factors. The results ofthis test should be correlated with additionalclinical and laboratory data before changesin treatment regimens are made. CT Chest Abdomen Pelvis wo C ontraston 12-21-2020 CT Chest and Abdomen and Pelvis WO contrast Normal MG-Cardio lo gy[facility] 260 DO Work Phone: Hemoglobin A1Con 12-21-2020 Glucose [Mass/Vol] 148 mg/dL MG-Car diolo gy-[place] [facility] 260 DO Work Phone: HbA1c (Bld) [Mass fraction] Canceled [facility]iol[facility] 260 DO Work Phone: Comment on above: Diagnosis of Diabete s-Adults Non-Diabetic: < or = 5.6% Increased risk for developing diabetes: 5.7-6.4% Diagnostic of diabetes: > or = 6.5%. Monitoring of Diabetes Age (y) Therapeutic Goal (%) Adults: >18 <7.0 Pediatrics: 13-18 <7.5 7-12 <8.0 0- 6 7.5-8.5 [place] [employer]. Diabetes Care 33(S1)Mar 2009. HbA1c [...] 13-18 <7.5 7-12 <8.0 0- 6 7.5-8.5 [place] [employer]. Diabetes Care 33(S1), Mar 2009. Hemoglobin A1C Canceled [facility]iol o [facility] 260 DO Work Phone: Laboratory - Chemistry and C hemistry - challengeon 12-21-2020 Glucose [Mass/Vol] 191 mg/dL above high threshold 74 - 99 [facility] [facility] 260 DO Work Phone: Glucose [Mass/Vol] 203 mg/dL above high threshold 74 - 99 MG[facility] 260 DO Work Phone: [phone] Glucose [Mass/Vol] 229 mg/dL above high threshold 74 - 99 [facility] [facility] 260 DO Work Phone: [phone] Glucose [Mass/Vol] 136 mg/dL above high threshold 74 - 99 MG[facility] 260 DO Work Phone: [phone] Laboratory - Hematology and Cell countson 12-21-2020 Erythrocyte distribution width (RBC) [Ratio] 12.8 % See Below [facility]iol[facility] 260 DO Work Phone: [phone] Comment on above: Reference Range: 11. 5 - 14.5 Hematocrit (Bld) [Volume fraction] 35.6 % below low threshold See Below [facility] 260 DO Work Phone: [phone] Comment on above: Reference Range: 41. 0 - 52.0 Hemoglobin (Bld) [Mass/Vol] 12.0 g/dL below low threshold See Below [facility]iol[facility] 260 DO Work Phone: Comment on above: Reference Range: 13. 5 - 17.5 MCHC (RBC) [Mass/Vol] 33.7 g/dL See Below MG- [facility] [facility] 260 DO Work Phone: Comment on above: Reference Range: 32. 0 - 36.0 MCV (RBC) [Entitic vol] 89 fL 80 - 100 M G-[facility]iol[facility] gy[facility] [facility] 260 DO Work Phone: Platelets (Bld) [#/Vol] 124 10*3/uL below lo w threshold 150 - 450 MG-[facility]iol[facility] gy[facility] [facility] 260 DO Work Phone: [phone] RBC (Bld) [#/Vol] 4.01 {x10E12/L} below low threshold See Below [facility]iol[facility] gy-[facility] 260 DO Work Phone: [phone] Comment on above: Reference Range: 4.5 0 - 5.90 WBC (Bld) [#/Vol] 6.2 10*3/uL 4.4 - 11.3 MG-Car diolo gy-[place] [facility] 260 DO Work Phone: No Panel Informationon 12-21 0.0 {/100_WBC} 0.0-0.0 MG-Cardiol o gy-[place] [facility] 260 DO Work Phone: [phone] Renal Function Panelon 12-21 Albumin BCP dye [Mass/Vol] 3.8 g/dL 3.4 - 5.0 MG-[facility] 260 DO Work Phone: [phone] Anion gap [Moles/Vol] 15 mmol/L 10 - 20 MG- Cardiol[facility] gy[facility] [facility] 260 DO Work Phone: [phone] Calcium [Mass/Vol] 8.8 mg/dL 8.6 - 10.6 MG-Car diolo gy-[place] [facility] 260 DO Work Phone: [phone] Chloride [Moles/Vol] 110 mmol/L above high threshold 98 - 107 MG-Cardiolo gy-[place] [facility] 260 DO Work Phone: [phone] CO2 [Moles/Vol] 23 mmol/L 21 - 32 MG-Cardio lo gy-[place] 260 DO Work Phone: [phone] Creatinine [Mass/Vol] 2.22 mg/dL above high threshold See Below [facility] [facility] 260 DO Work Phone: [phone] Comment on above: Reference Range: 0.5 0 [...] 4.1 mmol/L 3.5 - 5.3 MG- Cardiolo gy-[place] [facility] 260 DO Work Phone: Sodium [Moles/Vol] [...] a chemiluminescent microparticle immunoassay (CMIA) on the [employer] i system.Optimal therapeutic ranges for immuno-suppressant drugs depend upon an individualpatient's current clinical state, type oforgan transplant, time post-transplant,co-administration of other immunosuppressants,and other clinical factors. The results ofthis test should be correlated with additionalclinical and laboratory data before changesin treatment regimens are made. Coronavirus 2019 RNA by PCR, Symptomaticon 12-20-2020 Coronavirus 2019 RNA by PCR, Symptomatic Not detected Normal See Below [facility] 260 DO Work Phone: Comment on above: SOURCE: Nasal, Nasop haryngealReference Range: Not Detected.This test has received FDA Emergency Use Authorization (EUA) and has been verified by [facility] ([facility]). This test is only authorized for the duration of time that circumstances exist to justify the authorization of the emergency use of in vitro diagnostic tests for the detection of SARS-CoV-2 virus and/or diagnosis of COVID-19 infection under section 564(b)(1) of the Act, 21 U.S.C. 360bbb-3(b)(1), unless the authorization is terminated or revoked sooner. [facility] is certified under CLIA-88 as qualified to perform high complexity testing. Testing is performed in the [facility] located at [address] [place] [address].SARS-CoV-2/Flu/RSV Multiplex Test: Fact sheet for providers: https://www.fda.gov/media/374601/downloadFact sheet for patients: https://www.fda.gov/media/243643/download Date and time of symptom onset Canceled [facility] 260 DO Work Phone: Coronavirus 2019 RNA by PCR, Symptomatic Canceled [facility] [facility] 260 DO Work Phone: Comment on [...] this test method. Fact sheet for providers: www.fda.gov/media/868281/downloadFact sheet for patients: www.fda.gov/media/470786/downloadThis test has received FDA Emergency Use Authorization (EUA) and has been verified by [facility] ([facility]). This test is only authorized for the duration of time that circumstances exist to justify the authorization of the emergency use of in vitro diagnostic tests for the detection of SARS-CoV-2 virus and/or diagnosis of COVID-19 infection under section 564(b)(1) of the Act, 21 U.S.C. 360bbb-3(b)(1), unless the authorization is terminated or revoked sooner. [facility] is certified under CLIA-88 as qualified to perform high complexity testing. Testing is performed in the [facility] laboratories located at [address] [place] [address]. Folate, Serumon 12-20-2020 Folate [Mass/Vol] ng/mL >5.0 MG-Card iolo gy[facility] [facility] 260 DO Work Phone: Comment on [...] above high threshold 74 - 99 [facility] [facility] 260 DO Work Phone: TSH Qn 2.00 m[IU]/L See Below [facility] [facility] 260 DO Work Phone: Comment on above: Reference Range: 0.4 4 - 3.98 TSH testing is performed using different testing methodology at [facility] than at other [facility]. Direct result comparisons should only [...] [facility] 260 DO Work Phone: [phone] PT Coag (PPP) [Time] Canceled MG-C niladiolo gy-[place] [facility] 260 DO Work Phone: [phone] Laboratory - Hematology and Cell countson 12-20-2020 Erythrocyte distribution width (RBC) [Ratio] 12.9 % See Below [facility] [facility] 260 DO Work Phone: [phone] Comment on above: Reference Range: 11. 5 - 14.5 Hematocrit (Bld) [Volume fraction] 35.8 % below low threshold See Below [facility] [facility] 260 DO Work Phone: [phone] Comment on above: Reference Range: 41. 0 - 52.0 Hemoglobin (Bld) [Mass/Vol] 11.7 g/dL below low threshold See Below [facility]iol[facility] 260 DO Work Phone: [phone] Comment on above: Reference Range: 13. 5 - 17.5 MCHC (RBC) [Mass/Vol] 32.7 g/dL See Below MG- Cardiolo gy-[facility] 260 DO Work Phone: [phone] Comment on above: Reference Range: 32. 0 - 36.0 MCV (RBC) [Entitic vol] 90 fL 80 - 100 M G-[facility]iol[facility] [facility] 260 DO Work Phone: [phone] Platelets (Bld) [#/Vol] 131 10*3/uL below lo w threshold 150 - 450 MG-Cardiolo gy[facility] 260 DO Work Phone: [phone] RBC (Bld) [#/Vol] 3.97 {x10E12/L} below low threshold See Below [facility] [facility] 260 DO Work Phone: [phone] Comment on above: Reference Range: 4.5 0 - 5.90 WBC (Bld) [#/Vol] 7.3 10*3/uL 4.4 - 11.3 MG-Car diolo gy-[facility] 260 DO Work Phone: Lactate, Levelon 12-20-2020 Lactate [Moles/Vol] 1.0 mmol/L 0.4 - 2.0 MG-Ca rdiolo gy-[place] [facility] 260 DO Work Phone: Comment on [...] above: . <100 pg/mL - Heart failure [id number] pg/mL - Intermediate probability of acute heart. [...] XR Chest Single view Normal MG-C ardiolo gy-[place] [facility] 260 DO Work Phone: Renal Function Panelon 12-20 Albumin BCP dye [Mass/Vol] 3.9 g/dL 3.4 - 5.0 MG-Cardiol[facility] 260 DO Work Phone: [phone] Anion gap [Moles/Vol] 17 mmol/L 10 - 20 MG- Cardiolo gy-[facility] 260 DO Work Phone: [phone] Calcium [Mass/Vol] 9.2 mg/dL 8.6 - 10.6 MG-Car diolo gy-[place] [facility] 260 DO Work Phone: [phone] Chloride [Moles/Vol] 112 mmol/L above high threshold 98 - 107 MG-Cardiol[facility] [facility] 260 DO Work Phone: [phone] [...] above high threshold 136 - 145 MG-[facility] [facility] 260 DO Work Phone: [phone] Urea nitrogen [Mass/Vol] 74 mg/dL above high threshold 6 - 23 MG-[facility] [facility] 260 DO Work Phone: Renal Function Panel 31 {mL/min/1.73m2} Abnormal >60 MG[facility] [facility] 260 DO Work Phone: Comment on [...] a chemiluminescent microparticle immunoassay (CMIA) on the [employer] i system.Optimal therapeutic ranges for immuno-suppressant drugs [...] is performed using different testing methodology at [facility] than at other [facility]. Direct result comparisons should only [...] [Moles/Vol] 11 mmol/L 9 - 17 mmol/L [facility] Phone: Calcium [Mass/Vol] 9.3 mg/dL 8.6 - 10. 4 mg/dL [facility] Phone: Chloride [Moles/Vol] 107 mmol/L 98 - 10 7 mmol/L [facility] Phone: CO2 [Moles/Vol] 23 mmol/L 20 - 31 mmol/L [facility] Phone: Creatinine [Mass/Vol] 2.53 mg/dL High 0.70 - 1.20 mg/dL [facility] Phone: GFR 30 mL/min Low >60 [email or web address] Phone: GFR Non- 25 mL/min Low >60 [facility] Phone: Glucose [Mass/Vol] 160 mg/dL High 70 - 99 mg/dL [facility] Phone: Interpretation and review of laboratory results Abnormal [facility] Phone: Potassium [Moles/Vol] 4.5 mmol/L 3.7 - 5.3 mmol/L [facility] Phone: Sodium [Moles/Vol] 141 mmol/L 135 - 144 mmol/L [facility] Phone: Urea nitrogen (BldV) [Mass/Vol] 76 mg/dL High 8 - 23 mg/dL [facility] Phone: Urea nitrogen/Creatinine (Bld) [Mass ratio] 30 High [facility] Phone: [facility] Phone: Laboratory - Chemistry and C hemistry - challengeOrdered By: Manuel Conner on 12-19-2020 GFR/1.73 sq M.predicted MDRD (S/P/Bld) [Vol rate/Area] [facility] Phone: Comment on above: Average GFR for 70 o r more years old: 75 mL/min/1.73sq m Chronic Kidney Disease: <60 mL/min/1.73sq m Kidney failure: <15 mL/min/1.73sq m eGFR calculated using average adult body mass. Additional eGFR calculator available at: http://www.[employer]/esolidar_crcl_2012.htm Stage 1: Some kidney damage normal GFR Stage 2: Mild kidney damage GFR 60-89 Stage 3: Moderate kidney damage GFR 30-59 Stage 4: Severe kidney damage GFR 15-29 Stage 5: Severe kidney damage GFR <15 ESRD - chronic treatment by dialysis or transplant TroponinOrdered By: Manuel Conner on 12-19-2020 Interpretation and review of laboratory results Abnormal [facility] Phone: Troponin Interp NOT REPORTED [facility] Phone: Troponin T NOT REPORTED <0.03 ng/mL [facility] Phone: Troponin, High Sensitivity 57 ng/L Critically high 0 - 22 ng/L [facility] Phone: Comment on above: High Sensitivity Troponin values cannot be compared with other Troponin methodologies. Patients with high levels of Biotin oral intake (i.e >5mg/day) may have falsely decreased Troponin levels. Samples collected within 8 hours of biotin intake may require additional information for diagnosis. [facility] Phone: Basic Metabolic PanelOrdered By: Manuel Conner on 12-18-2020 Anion gap [Moles/Vol] 14 mmol/L 9 - 17 mmol/L [facility] Phone: Calcium [Mass/Vol] 9.3 mg/dL 8.6 - 10. 4 mg/dL [facility] Phone: Chloride [Moles/Vol] 104 mmol/L 98 - 10 7 mmol/L [facility] Phone: CO2 [Moles/Vol] 22 mmol/L 20 - 31 mmol/L [facility] Phone: Creatinine [Mass/Vol] 4.1 mg/dL High 0.70 - 1.20 mg/dL [facility] Phone: GFR 17 mL/min Low >60 [email or web address] Phone: GFR Non- 14 mL/min Low >60 [facility] Phone: Glucose [Mass/Vol] 148 mg/dL High 70 - 99 mg/dL [facility] Phone: Potassium [Moles/Vol] 5.2 mmol/L 3.7 - 5.3 mmol/L [facility] Phone: Sodium [Moles/Vol] 140 mmol/L 135 - 144 mmol/L [facility] Phone: Urea nitrogen (BldV) [Mass/Vol] 87 mg/dL High 8 - 23 mg/dL [facility] Phone: Urea nitrogen/Creatinine (Bld) [Mass ratio] 21 High [facility] Phone: Brain Natriuretic PeptideOrd ered By: Manuel Conner on 12-18-2020 BNP Interpretation Pro-BNP Reference Range: [facility] Phone: Comment on above: Rule Out: <300 Pagan Zone: Age <50 300-450 Age 50-75 300-900 Age >75 300-1800 Usually represents mild to moderate HF but other cardiopulmonary causes cannot be ruled out. Rule In: Age <50 >450 Age 50-75 >900 Age >75 >1800 Interpretation and review of laboratory results Abnormal [facility] Phone: Natriuretic peptide B (Bld) [Mass/Vol] 846 pg/mL High <300 [facility] Phone: Comment on above: Pro-BNP results halie ot be compared to BNP results. [facility] Phone: EKG Rhythm StripOrdered By: Unknown Result on 12-18-2020 [facility] Phone: [facility] Phone: Glucose, Whole BloodOrdered By: Manuel Conner on 12-18-2020 Glucose [Mass/Vol] 152 mg/dL High 74 - 100 mg/dL [facility] Phone: Interpretation and review of laboratory results Abnormal [facility] Phone: [facility] Phone: Laboratory - Chemistry and C hemistry - challengeOrdered By: Manuel Conner on 12-18-2020 GFR/1.73 sq M.predicted MDRD (S/P/Bld) [Vol rate/Area] [facility] Phone: Comment on above: Average GFR for 70 o r more years old: 75 mL/min/1.73sq m Chronic Kidney Disease: <60 mL/min/1.73sq m Kidney failure: <15 mL/min/1.73sq m eGFR calculated using average adult body mass. Additional eGFR calculator available at: http://www.[employer].com/multiple_crcl_2012.htm Stage 1: Some kidney damage normal GFR Stage 2: Mild kidney damage GFR 60-89 Stage 3: Moderate kidney damage GFR 30-59 Stage 4: Severe kidney damage GFR 15-29 Stage 5: Severe kidney damage GFR <15 ESRD - chronic treatment by dialysis or transplant No Panel InformationOrdered By: Manuel Conner on 12-18-2020 Interpretation and review of laboratory results Abnormal NOBOT Phone: NOBOT Phone: TroponinOrdered By: Manuel Conner on 12-18-2020 Troponin Interp NOT REPORTED NOBOT Phone: Troponin T NOT REPORTED <0.03 ng/mL NOBOT Phone: Troponin, High Sensitivity 71 ng/L Critically high 0 - 22 ng/L NOBOT Phone: Comment on above: High Sensitivity Troponin [...] Consider advancement by 5-7 cm, if able. NOBOT Phone: EXAMINATION: ONE XRA Y VIEW OF [...] cardiomegaly. Bony thorax is without acute abnormality. NOBOT Phone: Roger, Mhpn Incoming R adiant Results From [employer] - 12/18/2020 1:31 PM EDT EXAMINATION: ONE [...] Consider advancement by 5-7 cm, if able. NOBOT Phone: NOBOT Phone: XR CHEST PORTABLEOrdered By: Manuel Conner on 12-18-2020 Mild prominence of interstitial markings suggests mild vascular congestion with mild streaky bibasilar atelectasis NOBOT Phone: EXAMINATION: ONE XRA Y VIEW OF THE CHEST 12/18/2020 11:18 am COMPARISON: December 17, 2020, chest examination HISTORY: ORDERING SYSTEM PROVIDED HISTORY: Congestion TECHNOLOGIST PROVIDED HISTORY: Congestion FINDINGS: Median sternotomy. Stable cardiomegaly/mild tortuosity of the thoracic aorta Mild streaky bibasilar density. Mild prominence of interstitial markings Possible small right pleural effusion Degenerative changes of the thoracic spine/shoulders NOBOT Phone: Roger, Mhpn Incoming R adiant Results From [employer] - 12/18/2020 11:26 AM EDT EXAMINATION: ONE [...] vascular congestion with mild streaky bibasilar atelectasis NOBOT Phone: NOBOT Phone: APTTOrdered By: Manuel lew on 12-17-2020 aPTT Coag (Bld) [Time] 22.8 s Low Me [employer] Phone: Comment on above: IV Heparin Therapy Range: 62.0-94.0 Interpretation and review of laboratory results Abnormal NOBOT Phone: NOBOT Phone: Blood Gas, VenousOrdered By: Manuel Conner on 12-17-2020 Shilo Test NOT REPORTED NOBOT Phone: Carboxyhemoglobin NOT REPORTED 0.0 - 5.0 % NOBOT Phone: Comment on above: FIO2 NOT REPORTED NOBOT Phone: HCO3 (Bld) [Moles/Vol] 21.9 mmol/L Low 24.0 - 30.0 mmol/L NOBOT Phone: Interpretation and review of laboratory results Abnormal NOBOT Phone: Methemoglobin NOT REPORTED 0.0 - 1.9 % NOBOT Phone: Mode NOT REPORTED NOBOT Phone: Negative Base Excess, Angelo 5.7 mmol/L High 0.0 - 2.0 mmol/L NOBOT Phone: NOTIFICATION NOT REPORTED NOBOT Phone: NOTIFICATION TIME NOT REPORTED NOBOT Phone: O2 Device/Flow/% NOT REPORTED NOBOT Phone: Oxygen saturation in Blood 31.2 % Low 60.0 - 85.0 % NOBOT Phone: Oxyhemoglobin NOT REPORTED 95.0 - 98.0 [...] Work Phone: Text for Respiratory NOT REPORTED [facility] Work Phone: Total Hb NOT REPORTED 12.0 - 16.0 g/dl [facility] Work Phone: Total Rate NOT REPORTED [facility] Work Phone: VT NOT REPORTED [facility] Work Phone: [facility] Work Phone: Brain Natriuretic PeptideOrd ered By: Manuel Conner on 12-17-2020 BNP Interpretation Pro-BNP Reference Range: [facility] Work Phone: Comment on above: Rule Out: <300 Pagan Zone: Age <50 300-450 Age 50-75 300-900 Age >75 300-1800 Usually represents mild to moderate HF but other cardiopulmonary causes cannot be ruled out. Rule In: Age <50 >450 Age 50-75 >900 Age >75 >1800 Natriuretic peptide B (Bld) [Mass/Vol] 1428 pg/mL High <300 NOBOT Phone: Comment on above: Pro-BNP results halie ot be compared to BNP results. CBC Auto DifferentialOrdered By: Manuel Conner on 12-17-2020 Absolute Eos # 0.03 NOBOT Phone: Absolute Immature Granulocyte 0.03 NOBOT Phone: Absolute Lymph # 0.96 Low NOBOT Phone: Absolute Bradley # 0.52 NOBOT Phone: Basophils (Bld) [#/Vol] 10*3/uL [employer] Phone: Basophils/100 WBC (Bld) 0 % 0 - 2 % [employer] Phone: Differential Type NOT REPORTED NOBOT Phone: Eosinophils/100 WBC (Bld) 0 % Low 1 - 4 % NOBOT Phone: Hematocrit (Bld) [Volume fraction] 37.2 % Low 40.7 - 50.3 % NOBOT Phone: Hemoglobin.gastrointest inal spec 1 Ql (Stl) 11.5 g/dL Low 13.0 - 17.0 g/dL NOBOT Phone: Immature granulocytes/100 WBC (Bld) 0 % 0 NOBOT Phone: Interpretation and review of laboratory results Abnormal NOBOT Phone: Lymphocytes/100 WBC (Bld) 11 % Low 24 - 43 % NOBOT Phone: MCH (RBC) [Entitic mass] 28.5 pg 25.2 - 33.5 pg NOBOT Phone: MCHC (RBC) [Mass/Vol] 30.9 g/dL 28.4 - 34.8 g/dL NOBOT Phone: MCV (RBC) [Entitic vol] 92.3 fL 82.6 - 102.9 fL NOBOT Phone: Monocytes/100 WBC (Bld) 6 % 3 - 12 % [employer] Phone: NRBC Automated 0.0 0.0 per 100 WBC NOBOT Phone: Platelet distribution width (Bld) [Ratio] 13.0 % 11.8 - 14.4 % NOBOT Phone: Platelet Estimate NOT REPORTED NOBOT Phone: Platelet mean volume (Bld) [Entitic vol] NOT REPORTED 8.1 - 13.5 fL NOBOT Phone: Platelets (Bld) [#/Vol] See Reflexed IPF Result NOBOT Phone: RBC (Bld) [#/Vol] 4.03 10*6/uL Low 4.21 - 5.77 m/uL NOBOT Phone: RBC (Bld) [#/Vol] NOT REPORTED NOBOT Phone: Segmented neutrophils/100 WBC (Bld) 82 % High 36 - 65 % NOBOT Phone: Segs Absolute 6.94 NOBOT Phone: WBC (Bld) [#/Vol] 8.5 10*3/uL NOBOT Phone: WBC (Bld) [#/Vol] NOT REPORTED NOBOT Phone: NOBOT Phone: COVID-19, RapidOrdered By: Agnieszka munozsloan Finneyjodie on 12-17-2020 SARS-CoV-2 (COVID-19) RNA JOYCE+probe Ql (Unsp spec) Not detected Not Detected NOBOT Phone: Comment on above: Rapid NAAT: The [...] management decisions. Fact sheet for Healthcare Providers: https://www.fda.gov/media/580599/download Fact sheet for Patients: https://www.fda.gov/media/178879/download Methodology: Isothermal Nucleic Acid Amplification Specimen Description .NASOPHARYNGEAL SWAB NOBOT Phone: NOBOT Phone: CT HEAD WO CONTRASTOrdered B y: Manuel Conner on 12-17-2020 No acute intracrania l abnormality. 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 Minimal parenchymal volume loss. Minimal chronic microvascular disease. NOBOT Phone: EXAMINATION: CT OF T HE HEAD [...] of the visualized skull or soft tissues. [employer] Work Phone: Roger, Mhpn Incoming R adiant Results From [employer] - 12/17/2020 9:36 AM EDT EXAMINATION: CT OF THE HEAD WITHOUT CONTRAST 12/17/2020 9:21 am TECHNIQUE: CT of the head was performed without the administration of intravenous contrast. Dose modulation, iterative reconstruction, and/or weight based adjustment of the mA/kV was utilized to reduce the radiation dose to as low as reasonably achievable. COMPARISON: None. HISTORY: ORDERING SYSTEM PROVIDED HISTORY: ams TECHNOLOGIST PROVIDED HISTORY: [employer] Decision Support Exception - unselect if not [...] parenchymal volume loss. Minimal chronic microvascular disease. NOBOT Phone: NOBOT Phone: Comprehensive Metabolic Pane l w/ Reflex to MGOrdered By: Manuel Conner on 12-17-2020 Albumin [Mass/Vol] 4 g/dL 3.5 - 5.2 g/dL NOBOT Phone: Albumin/Globulin [Mass ratio] 1.3 {ratio} NOBOT Phone: ALP (Bld) [Catalytic activity/Vol] 66 U/L 40 - 129 U/L NOBOT Phone: ALT [Catalytic activity/Vol] 12 U/L 5 - 41 U/L NOBOT Phone: Anion gap [Moles/Vol] 19 mmol/L High 9 - 17 mmol/L NOBOT Phone: AST [Catalytic activity/Vol] 18 U/L <40 NOBOT Phone: Bilirubin [Mass/Vol] 0.16 mg/dL Low 0.3 - 1 .2 mg/dL NOBOT Phone: Calcium [Mass/Vol] 8.8 mg/dL 8.6 - 10. 4 mg/dL NOBOT Phone: Chloride [Moles/Vol] 102 mmol/L 98 - 10 7 mmol/L NOBOT Phone: CO2 [Moles/Vol] 19 mmol/L Low 20 - 31 mmol/L NOBOT Phone: Creatinine [Mass/Vol] 6.59 mg/dL Critically high 0.7 0 - 1.20 mg/dL NOBOT Phone: Free PSA/Total PSA [Mass fraction] 7.0 g/dL 6.4 - 8.3 g/dL NOBOT Phone: GFR 10 mL/min Low >60 [employer] Work Phone: GFR Non- 8 mL/min Low >60 [employer] Work Phone: Glucose [Mass/Vol] 197 mg/dL High 70 - 99 mg/dL NOBOT Phone: Potassium [Moles/Vol] 4.6 mmol/L 3.7 - 5.3 mmol/L NOBOT Phone: Sodium [Moles/Vol] 140 mmol/L 135 - 144 mmol/L NOBOT Phone: Urea nitrogen (BldV) [Mass/Vol] 96 mg/dL Critically high 8 - 23 mg/dL NOBOT Phone: Urea nitrogen/Creatinine (Bld) [Mass ratio] 15 [employer] Work Phone: EKG 12 LeadOrdered By: Kathy Conner on 12-17-2020 Atrial Rate 85 BPM NOBOT Phone: P [place] -15 degrees NOBOT Phone: P-R Interval 224 ms NOBOT Phone: [phone] Q-T Interval 414 ms NOBOT Phone: [phone] QRS Duration 120 ms NOBOT Phone: QTc Calculation (Bazett) 492 ms NOBOT Phone: R [place] 99 degrees NOBOT Phone: T [place] 44 degrees NOBOT Phone: Ventricular Rate 85 BPM NOBOT Phone: Sinus rhythm with 1s t degree A-V block Rightward axis Septal infarct , age undetermined Abnormal ECG No previous ECGs available Confirmed by JARON BERNARD ([id number]) on 12/17/2020 11:51:30 PM NOBOT Phone: Roger, Mhpn Incoming E kg Results From [employer] - 12/17/2020 11:51 PM EDT Sinus rhythm with 1st degree A-V block Rightward axis Septal infarct , age undetermined Abnormal ECG No previous ECGs available Confirmed by JARON BERNARD ([id number]) on 12/17/2020 11:51:30 PM NOBOT Phone: NOBOT Phone: Immature Platelet FractionOr dered By: Manuel Conner on 12-17-2020 Interpretation and review of laboratory results Abnormal NOBOT Phone: Platelet, Fluorescence 110 Low Me [employer] Phone: Platelet, Immature Fraction 4.6 % 1.1 - 10.3 % NOBOT Phone: NOBOT Phone: Laboratory - Chemistry and C hemistry - challengeOrdered By: Manuel Conner on 12-17-2020 GFR/1.73 sq M.predicted MDRD (S/P/Bld) [Vol rate/Area] NOBOT Phone: Comment on above: Average GFR for 70 o r more years old: 75 mL/min/1.73sq m Chronic Kidney Disease: <60 mL/min/1.73sq m Kidney failure: <15 mL/min/1.73sq m eGFR calculated using average adult body mass. Additional eGFR calculator available at: http://www.Subtext.PowerCard/multiple_crcl_2012.htm Stage 1: Some kidney damage normal GFR Stage 2: Mild kidney damage GFR 60-89 Stage 3: Moderate kidney damage GFR 30-59 Stage 4: Severe kidney damage GFR 15-29 Stage 5: Severe kidney damage GFR <15 ESRD - chronic treatment by dialysis or transplant Lactic AcidOrdered By: Kathy Conner on 12-17-2020 Lactate [Moles/Vol] 1.3 mmol/L 0.5 - 2. 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 Flow artifact in the proximal M1 segments of the bilateral MCAs and intracranial right ICA. The bilateral intracranial vertebral arteries are not imaged. NOBOT Phone: EXAMINATION: MRA OF THE HEAD WITHOUT CONTRAST 12/17/2020 1:32 pm TECHNIQUE: MRA of the head was performed utilizing omzv-[id number]-jkvrgk imaging with MIP images. No intravenous contrast [...] cerebral arteries. No evidence of intracranial aneurysm. NOBOT Phone: Roger, Mhpn Incoming R adiant Results From [employer] - 12/17/2020 2:02 PM EDT EXAMINATION: MRA OF THE HEAD WITHOUT CONTRAST 12/17/2020 1:32 pm TECHNIQUE: MRA of the head was performed utilizing pqhh-hk-mceglu imaging with MIP images. No intravenous contrast [...] bilateral intracranial vertebral arteries are not imaged. NOBOT Phone: NOBOT Phone: MRI BRAIN WO CONTRASTOrdered By: Manuel Conner on 12-17-2020 Addendum by Cristhian Hardin MD on 12/17/2020 2:02 PM ADDENDUM: Absence of normal flow void in left vertebral artery, likely related to severe stenosis versus occlusion. NOBOT Phone: No acute intracrania l abnormality. 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 Mild parenchymal volume loss. Mild chronic microvascular disease. 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 NOBOT Phone: EXAMINATION: MRI OF THE BRAIN WITHOUT [...] The soft tissues demonstrate no acute abnormality. NOBOT Phone: Roger, pn Incoming R adiant Results From [employer] - 12/17/2020 1:55 PM EDT EXAMINATION: MRI [...] internal carotid artery, likely related to occlusion. [employer] Work Phone: [employer] Work Phone: Microscopic UrinalysisOrdere d By: Manuel Conner on 12-17-2020 - [employer] Work Phone: Amorphous, UA NOT REPORTED None [employer] Work Phone: Bacteria, UA NOT REPORTED None [employer] Work Phone: Casts UA NOT REPORTED /LPF [employer] Work Phone: Crystals, UA NOT REPORTED None /HPF [employer] Work Phone: Epithelial Cells UA 0 TO 2 NOBOT Phone: Mucus, UA NOT REPORTED None NOBOT Phone: Other Observations UA NOT REPORTED NOT REQ. [facility] Work Phone: RBC, UA 2 TO 5 [employer] Work Phone: Renal Epithelial, UA NOT REPORTED 0 /HPF Me [employer] Work Phone: Trichomonas, UA NOT REPORTED None NOBOT Phone: WBC, UA 0 TO 2 NOBOT Phone: Yeast, UA NOT REPORTED None NOBOT Phone: [employer] Work Phone: No Panel InformationOrdered By: Manuel Conner on 12-17-2020 Interpretation and review of laboratory results Abnormal NOBOT Phone: NOBOT Phone: Interpretation and review of laboratory results Abnormal NOBOT Phone: NOBOT Phone: Protime-INROrdered By: Kathy Conner on 12-17-2020 INR Coag (Bld) [Relative time] 1.1 {INR} NOBOT Phone: Comment on above: Non-therapeutic Range: INR = 0.9-1.2 Therapeutic Range: Moderate Anticoagulant Intensity: INR = 2.0-3.0 High Anticoagulant Intensity: INR = 2.5-3.5 PT Coag (PPP) [Time] 13.7 s [email or web address] Phone: NOBOT Phone: TroponinOrdered By: Manuel Conner on 12-17-2020 Interpretation and review of laboratory results Abnormal NOBOT Phone: Troponin Interp NOT REPORTED NOBOT Phone: Troponin T NOT REPORTED <0.03 ng/mL NOBOT Phone: Troponin, High Sensitivity 79 ng/L Critically high 0 - 22 ng/L NOBOT Phone: Comment on above: High Sensitivity Troponin values cannot be compared with other Troponin methodologies. Patients with high levels of Biotin oral intake (i.e >5mg/day) may have falsely decreased Troponin levels. Samples collected within 8 hours of biotin intake may require additional information for diagnosis. NOBOT Phone: Troponin Interp NOT REPORTED NOBOT Phone: Troponin T NOT REPORTED <0.03 ng/mL NOBOT Phone: Troponin, High Sensitivity 85 ng/L Critically high 0 - 22 ng/L NOBOT Phone: Comment on above: High Sensitivity Troponin values cannot be compared with other Troponin methodologies. Patients with high levels of Biotin oral intake (i.e >5mg/day) may have falsely decreased Troponin levels. Samples collected within 8 hours of biotin intake may require additional information for diagnosis. Urinalysis, reflex to micros copicOrdered By: Manuel Conner on 12-17-2020 Bilirubin Urine Negative NEGATIVE NOBOT Phone: Color, UA Yellow Yellow [employer] Work Phone: Glucose, Ur Negative NEGATIVE [employer] Work Phone: Interpretation and review of laboratory results Abnormal NOBOT Phone: Ketones Ql (U) Negative NEGATIVE [employer] Work Phone: Leukocyte esterase Test strip Ql (U) Negative NEGATIVE [employer] Work Phone: Nitrite, Urine Negative NEGATIVE [employer] Work Phone: pH, UA 5.5 [employer] Work Phone: Protein, UA TRACE Abnormal NEGATIVE NOBOT Phone: Specific [place], UA 1.025 High [employer] Work Phone: Turbidity UA Clear Clear [employer] Work Phone: Urinalysis Comments NOT REPORTED [facility] [employer] Work Phone: Urine Hgb TRACE Abnormal NEGATIVE NOBOT Phone: Urobilinogen, Urine Normal Normal NOBOT Phone: NOBOT Phone: XR CHEST PORTABLEOrdered By: Manuel Conner on 12-17-2020 Mild streaky bibasil ar atelectasis with possible small bilateral pleural effusions NOBOT Phone: EXAMINATION: ONE XRA Y VIEW OF THE CHEST 12/17/2020 9:30 am COMPARISON: None. HISTORY: ORDERING SYSTEM PROVIDED HISTORY: Congestion TECHNOLOGIST PROVIDED HISTORY: Congestion FINDINGS: Median sternotomy. Normal cardiopericardial silhouette Low volume lungs. Mild streaky bibasilar densities, possible possible small bilateral pleural effusions. Clear upper lungs Degenerative changes of the thoracic spine/shoulders [employer] Work Phone: Roger, Mhpn Incoming R adiant Results From [employer] - 12/17/2020 9:46 AM EDT EXAMINATION: ONE [...] atelectasis with possible small bilateral pleural effusions [employer] Work Phone: NOBOT Phone: Vital Signs Date Time Vital Sign Value Performing Clinician Facility 07-03-2021 15:01-0400 Body temperature 99.32 [degF] Michael Carballo Other Phone: [facility] 07-03-2021 15:01-0400 Diastolic blood pressure 66 mm[Hg] Michael Carballo Other Phone: [facility] 07-03-2021 15:01-0400 Heart rate 80 /min Michael Carballo Other Phone: [facility] 07-03-2021 15:01-0400 Respiratory rate 22 /min Michael Carballo Other Phone: [facility] 07-03-2021 15:01-0400 SaO2% (BldA) [Mass fraction] 97 % Michael Carballo Other Phone: [facility] 07-03-2021 15:01-0400 Systolic blood pressure 127 mm[Hg] Michael Carballo Other Phone: [facility] 07-03-2021 06:30-0400 Body weight 100.5 kg Michael Carballo Other Phone: [facility] 06-27-2021 13:00-0400 Diastolic blood pressure 69 mm[Hg] MD Michael Carballo Work Phone: [facility] 06-27-2021 13:00-0400 Heart rate 87 /min MD Micahel Carballo Work Phone: [facility] 06-27-2021 13:00-0400 Respiratory rate 17 /min MD Michael Carballo Work Phone: [facility] 06-27-2021 13:00-0400 SaO2% (BldA) [Mass fraction] 94 % MD Michael Carballo Work Phone: [facility] 06-27-2021 13:00-0400 Systolic blood pressure 153 mm[Hg] MD Michael Carballo Work Phone: [facility] 06-27-2021 08:00-0400 Body temperature 97.9 [degF] MD Michael Carballo Work Phone: [facility] 06-27-2021 05:44-0400 Body weight 106.5 kg MD Michael Carballo Work Phone: [facility] 06-26-2021 14:12-0400 Body height 182.88 cm MD Michael Carballo Work Phone: [facility] 06-26-2021 00:24-0400 Body height 182.88 cm MD Michael Carballo Work Phone: [facility] 06-26-2021 00:24-0400 Body mass index (BMI) [Ratio] 32.8 kg/m2 MD Michael Carballo Work Phone: [facility] 06-26-2021 00:24-0400 Body temperature 97.7 [degF] MD Michael Carballo Work Phone: [facility] 06-26-2021 00:24-0400 Body weight 109.9 kg MD Michael Carballo Work Phone: [facility] 06-26-2021 00:24-0400 Diastolic blood pressure 100 mm[Hg] MD Michael Carballo Work Phone: [facility] 06-26-2021 00:24-0400 Heart rate 88 /min MD Michael Carballo Work Phone: [facility] 06-26-2021 00:24-0400 Respiratory rate 18 /min MD Michael Carballo Work Phone: [facility] 06-26-2021 00:24-0400 SaO2% (BldA) [Mass fraction] 96 % MD Michael Carballo Work Phone: [facility] 06-26-2021 00:24-0400 Systolic blood pressure 221 mm[Hg] MD Michael Carballo Work Phone: [facility] 12-19-2020 20:01-0400 Diastolic blood pressure 64 mm[Hg] Manuel Conner MD Work Phone: [employer] Work Phone: 12-19-2020 20:01-0400 Systolic blood pressure 182 mm[Hg] Manuel Conner MD Work Phone: [employer] Work Phone: 12-19-2020 19:00-0400 Heart rate 75 /min Manuel Conner MD Work Phone: [employer] Work Phone: 12-19-2020 19:00-0400 Respiratory rate 23 /min Manuel Conner MD Work Phone: [employer] Work Phone: 12-19-2020 19:00-0400 SaO2% (BldA) [Mass fraction] 94 % Manuel Conner MD Work Phone: [employer] Work Phone: 12-18-2020 06:30-0400 Body temperature 98.29 [degF] Manuel Conner MD Work Phone: [employer] Work Phone: Encounters Encounter Date Encounter Type Care Provider Facility Start: 09-28-2022 AUDIT Michael Carballo Work Phone: TV-Fqdifevvwy-Ykvjuyho SJW 260 DO Work Phone: Start: 07-24-2022 End: 07-24-[address] MICHAEL CARBALLO . Facility:[facility] Start: 07-15-2022 End: 07-15-[address] MICHAEL CARBALLO . Facility: Start: 07-13-2022 Patient encounter procedure Michael Carballo Work Phone: BW-Svukhbtsxp-NJB [place] [address] Work Phone: Start: 07-13-2022 Phys/qhp telephone evaluation 11-20 min Michael Carballo Work Phone: MZ-Xjthpzvnzb-SRI [place] [address] Work Phone: Start: 07-13-2022 ambulatory MD SCOUT ROMO Facility:[facility] Start: 07-13-2022 End: 07-13-[address] MICHAEL CARBALLO . Facility: Start: 07-09-2022 AUDIT Michael Carballo Work Phone: FK-Jbbbyasqtp-SPT [place] [address] Work Phone: Start: 06-08-2022 ambulatory Facility:[facility] Start: 06-05-2022 End: 06-05-[address] MICHAEL CARBALLO . Facility: Start: 06-04-2022 End: 06-04-[address] MICHAEL CARBALLO . Facility: Start: 04-14-2022 End: 04-15-2022 ambulatory DONNA ARELLANO [facility] Start: 04-14-2022 End: 04-14-2022 Subsequent hospital visit by physician Michael Carballo Work Phone: [facility] Start: 10-30-2021 End: 10-31-2021 ambulatory Manfred Wilson Facility:[facility] Start: 10-28-2021 End: 10-28-[address] MICHAEL CARBALLO . Facility: Start: 10-15-2021 Patient encounter procedure Michael Carballo Work Phone: BJ-Kimvjiqjlm-FOQ [facility] [address] [place] Work Phone: Start: 10-15-2021 ambulatory DO FELICIA ASTORGA Facility:[facility] Start: 08-05-2021 End: 08-06-[address] MICHAEL CARBALLO . Facility: Start: 07-16-2021 Office outpatient vi sit 25 minutes Michael Carballo Work Phone: EX-Zabdkoatyy-NXK [facility] [address] [place] Work Phone: Start: 07-16-2021 Patient encounter procedure Michael Carballo Work Phone: BD-Tlhnoyokvr-NJH [facility] [address] [place] Work Phone: Start: 06-27-2021 End: 07-03-2021 [id number] Start: 06-25-2021 End: 06-27-2021 Evaluation and management of inpatient MD Michael Carballo Work Phone: [facility] [place] [facility] Start: 06-25-2021 Patient encounter procedure Michael Carballo Work Phone: GF-Oknzjnzycf-YXQ [facility] [address] [place] Work Phone: Start: 06-24-2021 End: 06-24-2021 Patient encounter procedure MD Michael Carballo Work Phone: [facility] Start: 05-28-2021 AUDIT Michael Carballo Work Phone: BM-Tigezrlija-YZC [facility] [address] [place] Work Phone: Start: 05-27-2021 End: 05-27-2021 Patient encounter procedure MD Michael Carballo Work Phone: [facility] Start: 01-01-2021 Patient encounter procedure Michael Carballo Work Phone: FV-Ovnunivhba-DUQ [facility] [address] [place] Work Phone: Start: 01-01-2021 WANG, Provider : Felicia Astorga, Status: Pen, Time: 2:20 PM Michael Carballo Work Phone: DF-Dftgxnxuuk-Sndjzkbi SJW 260 DO Work Phone: Start: 12-31-2020 AUDIT Michael Carballo Work Phone: ZM-Pggkmyvyse-Ambqxsdh [facility] 260 DO Work Phone: Start: 12-17-2020 End: 12-19-2020 Emergency department patient visit Manuel Conner MD Work Phone: [facility] ED Comment on above: Boomer coma scale t otal score 13-15, at hospital admission (Primary Dx); Acute kidney injury (HCC); Heart replaced by transplant (HCC); Confusion Start: 11-21-2020 AUDIT Michael Carballo Work Phone: UB-Diipweaior-PTQ [facility] [address] [place] Work Phone: Start: 10-31-2020 AUDIT Michael Carballo Work Phone: [facility] Work Phone: Procedures Date Procedure [...] heart recipient Heart repla vaibhav by transplant ([facility]) Manuel Conner MD Work Phone: H/O: heart [...] Montse Villanueva, Status: Pen, Time: 2:00 PM WI-Yegnqrhmsc-QSM [facility] [address] Work Phone: Start: 07-13-2022 VIRFUCORI, Provider : Scout Romo, Status: Pen, Time: 1:40 PM VIRFUVHOME, Provider: Scout Romo, Status: Pen, Time: 1:40 PM CM-Ymlmrkbkso-UIP [facility] [address] Work Phone: Start: 04-01-2022 VIRFUCORI, Provider : Felicia Astorga, Status: Pen, Time: 1:00 PM VIRFUCORI, Provider: Felicia Astorga, Status: Pen, Time: 1:00 PM GP-Dfzovkmalc-YLV [facility] [address] [place] Work Phone: Start: 12-19-2021 Creatinine measurement Creatinine [facility] Work Phone: Start: 12-19-2021 Potassium monitoring Potassium monit [facility] Work Phone: Start: 10-20-2021 Influenza vaccination Flu vaccine (# 1) [facility] Start: 07-16-2021 Patient encounter procedure [facility] Start: 07-03-2021 End: 07-04-2022 Insulin Glargine (Lantus) Injectable Subcutaneous Once ; DOSE = 12 unit(s) SubCutaneous At BedtimeNotes from Pharmacy: [facility] Start: 03-Jul-2021 End: 03-Jul-2022 Ordered: 03-Jul-2021 Magy Galeas Intent [facility] Start: 07-01-2021 End: 07-02-2022 [facility] Comment on above: IF [...] End: 30-Jun-2022 Ordered: 30-Jun-2021 Jihan Storm Intent [facility] Start: 06-27-2021 End: 06-28-2022 Sodium Chloride 0.9% Injectable Flush Peripheral Line ; via Peripheral LineVolume = 10 mL IntraVenous Flush Every 8 Hours and as Needed Start: 27-Jun-2021 End: 27-Jun-2022 Ordered: 26-Jun-2021 Magy Galeas Intent [facility] Start: 06-26-2021 Duplex scan of upper limb arteries US arterial duplex [facility] Start: 12-17-2020 Annual Wellness Visi t (AWV) Annual Wellness Visit (AWV) [facility] [employer] ([employer]) Start: 11-20-2020 Influenza vaccination Flu vaccine (# 1) [facility] Phone: Start: 07-16-2020 COVID-19 Vaccine (3 - Pfizer risk 3-dose series) COVID-19 Vaccine (3 - Pfizer risk 3-dose series) [employer] Phone: Start: 07-16-2020 COVID-19 Vaccine (3 - Pfizer risk series) COVID-19 Vaccine (3 - Pfizer risk series) [facility] [employer] ([employer]) Start: 10-01-2016 Pneumococcal 65+ yrs at Risk Vaccine (2 of 2 - PCV13) Pneumococcal 65+ yrs at Risk Vaccine (2 of 2 - PCV13) [employer] Phone: Start: 10-10-1993 Shingles Vaccine (1 of 2) Shingles Vaccine (1 of 2) [employer] Phone: Start: 10-10-1962 DTaP/Tdap/Td vaccine (1 - Tdap) DTaP/Tdap/Td vaccine (1 - Tdap) [facility] Start: 10-10-1962 Shingles vaccine (1 of 2) Shingles vaccine (1 of 2) [facility] [employer] Start: 10-10-1961 Hepatitis C screening Hepatitis C [facility] [employer] Start: 1955 Depression Screen Depression Screen [facility] Start: 10-10-1953 [facility] Start: 1945 Hepatitis C [facility] Work Phone: Calcium [Mass/volume ] in Serum or Plasma [facility] Work Phone: Carbon dioxide, tota l [Moles/volume] in Serum or Plasma [facility] Work Phone: Chloride [Moles/volu me] in Serum or Plasma [facility] Work Phone: Creatinine and Glomerular filtration rate.predicted panel - Serum, Plasma or Blood [facility] Work Phone: Culture, Blood 1 [facility] Work Phone: Culture, Wound Culture, Wound Microbiology Routine 04/14/2022 3:25 PM EST [facility] Work Phone: Glucose [Mass/volume ] in Serum or Plasma [facility] Work Phone: Goals of care, counseling/discussion [facility] Measurement of renal function [facility] Work Phone: Potassium [Moles/volume] in Serum or Plasma [facility] Work Phone: Sodium [Moles/volume ] in Serum or Plasma [facility] Work Phone: Tacrolimus [Mass/volume] in Blood [facility] Work Phone: End: 12-18-2020 Tacrolimus Level [facility] Work Phone: Comment on above: One Time for 1 Occur rences starting 12/18/2020 until 12/18/2020 End: 12-19-2020 Tacrolimus Level Tacrolimus Level Lab Routine One Time for 1 Occurrences starting 12/19/2020 until 12/19/2020 [facility] Work Phone: Comment on above: One Time for 1 Occur rences starting 12/19/2020 until 12/19/2020 Tacrolimus Level [facility] Work Phone: Urea nitrogen [Mass/volume] in Serum or Plasma [facility] Work Phone: Immunizations Immunization Date Immunization Notes Care Provider Fa cility 03-21-2021 Pfizer-BioNTech COVI D-19 Vacc 30 MCG/0.3ML Intramuscular Suspension Michael Carballo Work Phone: [facility]Tr[facility] [place] [address] [place] Work Phone: 06-18-2020 Pfizer-BioNTech COVI D-19 Vacc 30 MCG/0.3ML Intramuscular Suspension Michael Carballo Work Phone: [facility] Work Phone: 05-27-2020 Pfizer[employer] COVI D-19 Vacc 30 MCG/0.3ML Intramuscular Suspension Michael Candelario Haris Work Phone: [facility] Work Phone: 12-29-2019 Seasonal trivalent influenza vaccine, adjuvanted, preservative free Michael Palomino Haris Work Phone: [facility] Work Phone: 12-22-2017 Seasonal trivalent influenza vaccine, adjuvanted, preservative free Michael Palomino Haris Work Phone: [facility] Work Phone: 12-28-2016 Seasonal trivalent influenza vaccine, adjuvanted, preservative free Michael Palomino Haris Work Phone: [facility] Work Phone: 12-24-2015 influenza, high dose seasonal, preservative-free Michael Palomino Haris Work Phone: [facility] Work Phone: 10-02-2015 influenza, seasonal, injectable Michael Palomino Haris Work Phone: [facility] Work Phone: 10-02-2015 pneumococcal polysaccharide vaccine, 23 valent Michael Palomino Haris Work Phone: [facility] Work Phone: 01-09-2015 influenza, injectabl e, quadrivalent, contains preservative Michael Palomino Haris Work Phone: [facility] Work Phone: 01-03-2013 influenza, seasonal, injectable Michael Palomino Haris Work Phone: [facility] Work Phone: 01-07-2009 influenza virus vacc ine, whole virus Michael Palomino Haris Work Phone: [facility] Work Phone: 01-20-2005 influenza virus vacc ine, whole virus Michael Palomino Carballo Work Phone: [facility] Work Phone: Payers Date Payer Category Payer Self-pay [id number] 1961 Medicaid [id number] 1961 Medicare [id number] 1961 Medicare [id number] 1961 Private Health Insurance [id number] 1945 Unknown [id number] 2.16.8 [id number] 1945 Unknown [id number] 2.16.84 [id number] 1943 Unknown [id number] 2.16.84 [id number] 1943 Unknown [id number] 2.16.84 [id number] 1943 Unknown [id number] 2.16.84 [id number] 1943 Unknown [id number] 2.16.84 [id number] 1943 Unknown [id number] 2.16.84 [id number] 1943 Unknown [id number] 2.16.84 [id number] 1943 Unknown [id number] 2.16. [id number] 1943 Unknown [id number] 2.16. [id number] Unknown Unknown [id number] 2.16.8 [id number] Social History Date Type Detail Facility Former smoker Former smoker [facility] Work Phone: Start: 12-17-2020 Tobacco smoking stat us FLIS Unknown if ever smoked [employer] Work Phone: Start: 1945 Sex Assigned At Not on file M [employer] Work Phone: Exposure to SARS-CoV -2 (event) Unable to assess [employer] Start: 12-13-2020 [facility] (finding[facility] Start: 1945 Sex Assigned At Male F [facility] Start: 06-26-2021 End: 06-26-2021 Tobacco smoking status NHIS Ex-smoker (finding) [facility] End: 03-22-1996 History of tobacco use [facility] Work Phone: Goals Date Patient Goal Desired Activity /State Functional Status Date Assessment Result Facility 06-27-2021 Functional status Patient at [facility] Work Phone: Functional observable [facility] [place] Mental Status Date Assessment Result Facility 06-30-2021 Cognitive functi ons [id number] [facility] 06-27-2021 Cognitive function Cognitive Sta tus Patient at Baseline [facility] Work Phone: Clinical Notes 07-05-2000 to 07-03-2021 <item><item><item><item><item><item><item><item><item> Note Date & Type Note Facility 07-03-2021 Hospital Discharge instructions Activity:activity with assistance. May shower.Labs 1 (Modify Template):Lab Test(s): Basic Metabolic Panel, CBC, Tacrolimus levelDate To Be Drawn: 07/07/2021all Results To: Dr. Felicia Moore Results To: [id number] Orders:Blood Glucose Monitoring: ACHSAdditional Instructions: Use of [...] Uncontrolled diabetesCall to Schedule in: 2 weeksLocation: [facility]Phone Number: Follow Up Appointment 2:Physician/Dept/Service: Dr. Felicia Astorga / Heart failure and transplantReason for Referral: hospital follow-upLocation: Heather [address]Comments: Our office will call you to set up an appointment either in person or virtually. [facility] 06-27-2021 Discharge summary Note Date/Time June 27, 2021 10:32am [facility] [address] [place] [address] Discharge Summary Signed Patient: Oliverio Escobedo MR#: [id number] : 1945 Acct:[id number] Age/Sex: 75 / M Adm Date: 2 Loc: 3T Room: [address] [place] [address]: Yoshi Hernandez MD Copies to: MD Manfred Olvera([facility]PIT[facility] Howard Providers Date of Discharge: [...] 1 tab PO BID RF: 0 omega 9-uon-njk-fish oil [Fish Oil] 1,000 mg (120 mg-180 [...] signed by Yoshi Hernandez MD> 06/27/21 1032 [facility] Work Phone: 1(515) 916-735004-08-2022 Progress note Author Bonilla Ortiz [facility] June 27, 2021 10:27am Note Date/Time June 27, 2021 10:2 7am [facility] [address] [place] [address] Cardiology Progress Note Signed Patient: Oliverio Escobedo MR#: [id number] : 1945 Acct:[id number] Age/Sex: 75 / M Adm Date: 2 Loc: 3T Room: [address] [place] [address] Type : ADM INOo Attending Dr: Yoshi Hernandez MD Copies to: ~ Date of Service: 06/27/2021 Subjective Principal diagnosis: Edema w history of orthotopic heart transplant Interval history: Mr. Escobedo is a 75 year old male with known history of orthotopic heart transplantation in 2000 done at [facility] who was admitted to the inpatient hospitalist service last night after presenting from the [facility] with complaints of increasing swelling in both legs and the right arm for several days. The patient is resting comfortably this morning. He did diurese gently yesterday. He currently has no cardiac complaints. His breathing feels comfortable lying flat at rest. Swelling in both feet and calves is still present. NB: The patient has been accepted by the transplant service at [facility]. At this point we are awaiting bed [...] Agree with transfer to transplant service at [facility] for further management. Plan Thank you very much for this kind consultation and for allowing me to participate in the care of this very pleasant patient. Time spent with patient Time Spent With Patient (min): 20 Documented By: Bonilla Ortiz MD 06/27/21 1024 Signed By: <Electronically signed by Bonilla Ortiz MD> 06/27/21 1027 [facility] Work Phone: 1([phone]) 140-840104-07-2022 Progress note Author Yoshi Wu [facility] June 26, 2021 6:27pm Note Date/Time June 26, 2021 6:27 pm [facility] [address] [place], [place] [id number] Hospitalist Progress Note Signed Patient: Oliverio Escobedo MR#: [id number] : 1945 Acct:[id number] Age/Sex: 75 / M Adm Date: 2 Loc: Room: [address] [place] [address] Type : ADM INOo Attending Dr: Yoshi [...] Oil 1,000 mg 06/26/21 09:00 06/26/21 09:01 [place]-3/Fish Oil 1,000 Mg Capsule PO 06/26/22 08:59 [...] signed by Yoshi Hernandez MD> 06/26/21 182 [facility] Work Phone: 1(476) 905-813404-07-2022 Consult note Author Bonilla Ortiz [facility] June 26, 2021 2:26pm Note Date/Time June 26, 2021 2:23 pm [facility] [address] [place] [address] Cardiology Consult Note Signed Patient: Oliverio Esocbedo MR#: [id number] : 1945 Acct:[id number] Age/Sex: 75 / M Adm Date: 2 Loc: 3T Room: [address] [place] [address] Type : ADM INOo Attending Dr: Yoshi [...] transplantation in 2000 done at [facility] who was admitted to the inpatient hospitalist service last night after presenting from the [facility] with complaints of increasing swelling in [...] the results were sent to his transplant appliances sample maker in [place]. She doesnot know the results. On my evaluation the patient was undergoing bedside transthoracic echocardiography. Preliminary interpretation of the study shows normal resting left ventricular regional wall motion and systolic function. Ejection fraction appears greater than 55%. There is no notable pericardial or pleural effusion. There is no notable/significant valvular heart disease noted. By report the patient's transplant service at [facility] has been contacted and is requested [...] PO BID 02/02/17 [History Confirmed 06/25/21] omega 1-yht-tzm-fish oil 1,000 mg (120 mg-180 mg) capsule [...] x10E3/uL Lymph # (Auto) 1.0 (1.00-4.8) x10E3/uL Bradley # (Auto) 0.5 (0.0-0.8) x10E3/uL Eos # [...] Agree with transfer to transplant service at [facility] for further management. Code(s): Z94.1 - Heart transplant status Plan Thank you very much for this kind consultation and for allowing me to participate in the care of this very pleasant patient. Documented By: Bonilla Ortiz MD 06/26/21 1415 Signed By: <Electronically signed by Bonilla Ortiz MD> 06/26/21 1426 [facility] Work Phone: 1(913) 919-435504-07-2022 History and physical note Author Omid Myrick [facility] June 26, 2021 7:44am Note Date/Time June 26, 2021 12:1 6am [facility] [address] [place], [place] [address] Hospitalist H&P Signed Patient: Oliverio Escobedo MR#: [id number] : 1945 Acct:[id number] Age/Sex: 75 / M Adm Date: 2 Loc: 3T Room: [address] [place] [address] Type : ADM INOo Attending Dr: Yoshi [...] been trying to schedule an appointment with [facility] appliances sample maker but were unable. Patient is hard of [...] PO BID 02/02/17 [History Confirmed 06/25/21] omega 3-nuw-vin-fish oil 1,000 mg (120 mg-180 mg) capsule [...] % (Auto) 12.9 % (.) 06/25/21 19:30 Bradley % (Auto) 7.3 % (.) 06/25/21 19:30 Eos % (Auto) 4.6 % (.) 06/25/21: Baso % (Auto) 0.6 % (.) 06/25/21: Neut # (Auto) 5.6 x10E3/uL (1.8-7.7) 06/25/21 19: Lymph # (Auto) 1.0 x10E3/uL (1.00-4.8) 06/25/21 19:30 Bradley # (Auto) 0.5 x10E3/uL (0.0-0.8) 06/25/21 19: [...] MD Documented By: Audra Quinteros APRN 06/25/21 4334 Signed By: <Electronically signed by GABBIE Quinteros> 06/26/21 0057 <Electronically signed by Omid Myrick MD> 06/26/21 7536 [facility] Work Phone: 1(950) 884-928809-30-2021 Evaluation note* Diagnosis Boomer coma scale total score 13-15, at hospital admission- Primary Acute kidney injury (HCC) Acute kidney failure, unspecified Heart replaced by transplant (HCC) Heart replaced by transplant Confusion Unspecified psychosis documented in this encounter [facility] Work Phone: 1(838) 396-415809-30-2021 History of Present illness Narrative* 74 yo [...] Hx/DSAs: None documented * Last echo: 12/20/20 IQ-Qvjfafrppj-QFU [place] [address] [place] Work Phone: [phone]) [phone] History of Present illness Narrative* Liliya Baker RN - 12/17/2020 10:31 AM EDT Spoke with nurse from [facility] at this time. They will fax lab work to us from [facility]. documented in this [facility] Work Phone: 1([phone]) 546-297104-16-2001 History of Present illness Narrative* Mr. Escobedo [...] September 2021. He continues to live in group home. He has started Zoloft for depression. 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 Needs assistance with transfers. He has not had any new doctors appointmetns. * Immunosuppression: MMF 250 mg BID, tacrolimus 1 mg BID (FK 11.0 on 10/10/21, goal 5-8) * Rejection Hx/DSAs: None documented * Last echo: 12/20/20 VY-Xnyayfofhy-UYF [place] [address] Work Phone: Chief complaint Narrative - [...] 04:20 PM , for a telehealth visit. IP-Yxgkucicdx-VRR [place] [address] [place] Work Phone: Evaluation noteNo assessment information available [facility] Work Phone: Evaluation note* Diagnosis Onset Date Resolution Status Acute kidney injury acute Bilateral edema of lower extremity acute Shortness of breath acute [facility] Work Phone: Evaluation note* Diagnosis Onset Date Resolution Status Acute kidney injury acute Bilateral edema of lower extremity acute History of heart transplant acute Shortness of breath acute [facility] Work Phone: Evaluation note* Psychological: Appropriate [...] distress, alert and cooperative, hard of hearing [facility] [...] Hx/DSAs: None documented * Last echo: 12/20/20 IK-Wgbczdggbm-NWV [place] [address] [place] Work Phone: History of Present [...] Hx/DSAs: None documented * Last echo: 12/20/20 RV-Hkxtslmagn-XGR [place] [address] [place] Work Phone: History of Present [...] Hx/DSAs: None documented * Last echo: 12/20/20 LE-Xhpijqbxja-BVM [place] [address] [place] Work Phone: History [...] Hx/DSAs: None documented * Last echo: 12/20/20 OV-Cxlfkcvbwx-QVD [place] [address] [place] Work Phone: History [...] office visit; documented BPs at the [facility] 120-130s/70-80s. * Benadryl 25 mg q6h PRN for itching/dry skin. 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 staff from [facility] rn state BP 70s/ANGELICA diastolic Scheduled [...] is suspension with MINIMUM of SIZE 8 YORUBA 1500 (Given - Provider: Sola Dee RN)2128 [...] Active Yoshi Hernandez MD Attending Provider Active Associate Professor Of English Relationship Specialty Start Date End Date Michael Carballo [address] [place] [address] PCP - General Specialist 12/17/20 Goals (unrecognized [...] section and content) DATE CREATED AUTHOR 07/14/2021 [facility] DATE CREATED AUTHOR AUTHOR'S ORGANIZ ATION 04/18/2022 [facility] DATE CREATED AUTHOR AUTHOR'S ORGANIZ ATION 07/17/2022 [employer] DATE CREATED AUTHOR AUTHOR'S ORGANIZ ATION 07/31/2022 [facility] DATE CREATED AUTHOR AUTHOR'S ORGANIZ ATION 09/07/2022 [facility] DATE CREATED AUTHOR AUTHOR'S ORGANIZ ATION 09/14/2022 [facility] DATE CREATED AUTHOR AUTHOR'S ORGANIZ ATION 11/21/2022 [facility] FOR RECORDS PERTAINING TO PATIENTS [...] BE BASED ON THE PRIMARY CLINICAL RECORDS. [facility] [employer] [facility]. provides no warranty or guarantee of the accuracy or completeness of information in this document.
[2023-11-03 09:50] LABS: Amorphous Sediment Urine MANY; Bacteria Urine TRACE #/HPF (NONE SEEN); Cast Seen? NONE SEEN #/LPF (NONE SEEN); Crystals Seen? Seen #/HPF (None Seen); Mucus Urine TRACE (NONE SEEN); Squamous Epithelial Cell Urine FEW #/LPF (NONE/RARE); Transitional Epi Cells Urine FEW #/LPF (NONE SEEN); WBC Urine 0-2 #/HPF (NONE SEEN)
[2023-11-03 09:51] LABS: Urine Culture Indicated NO
== END 2023-11-02 19:31 | disposition home or self-care (01) ==
LOC: LAB 19:30
PROVIDERS: Visit Provider Family Medicine
DX: I50.43 Acute on chronic combined systolic (congestive) and diastolic (congestive) heart failure (principal); E11.59 Type 2 diabetes mellitus with other circulatory complications; N40.1 Benign prostatic hyperplasia with lower urinary tract symptoms; N18.9 Chronic kidney disease, unspecified; E11.22 Type 2 diabetes mellitus with diabetic chronic kidney disease
CPT/HCPCS: 81001

== ENCOUNTER 2023-11-03 06:15 | Outpatient (RCR) | payer MEDICARE, SELFPAY ==
[2023-11-03 09:21] LABS: Basophils Absolute Auto 0.1 10^3/uL (0.0-0.1); Basophils Percent Auto 0.7 % (0.2-2.0); Eosinophils Absolute Auto 0.1 10^3/uL (0.0-0.7); Eosinophils Percent Auto 0.7 % (0.9-7.0); Hematocrit 30.7 % (42.0-54.0); Hemoglobin 8.9 g/dL (14.0-18.0); Immature Granulocytes Abs Auto 0.06 10^3/uL (0.00-0.03); Immature Granulocytes Pct Auto 0.7 % (0.0-0.5); Lymphocytes Absolute Auto 0.8 10^3/uL (1.2-3.8); Lymphocytes Percent Auto 9.1 % (20.5-60.0); Mean Corpuscular Hemoglobin 27.6 pg (25.9-34.0); Mean Platelet Volume 11.1 fL (9.5-13.5); Monocytes Absolute Auto 0.5 10^3/uL (0.3-0.8); Monocytes Percent Auto 5.5 % (1.7-12.0); Neutrophils Absolute Auto 7.7 10^3/uL (1.4-6.5); Neutrophils Percent Auto 83.3 % (43.0-75.0); Platelet Count 163 10^3/uL (150-450); Red Blood Count 3.23 10^6/uL (4.70-6.10); White Blood Count 9.2 10^3/uL (4.0-11.0)
[2023-11-03 10:48] LABS: Anion Gap 13.5; BUN Creatinine Ratio 14.6; Calcium 8.7 mg/dL (8.5-10.1); Carbon Dioxide 27.5 mmol/L (21.0-32.0); Chloride 103 mmol/L (98-107); Estimated GFR (African America 14 (>=60); Estimated GFR (Non-African Ame 11 (>=60); Glucose 183 mg/dL (74-106); Sodium 140 mmol/L (136-145)
[2023-11-10 10:41] LABS: Basophils Percent Auto 0.5 % (0.2-2.0); Eosinophils Absolute Auto 0.2 10^3/uL (0.0-0.7); Eosinophils Percent Auto 3.4 % (0.9-7.0); Hematocrit 27.1 % (42.0-54.0); Hemoglobin 8.1 g/dL (14.0-18.0); Immature Granulocytes Abs Auto 0.04 10^3/uL (0.00-0.03); Immature Granulocytes Pct Auto 0.7 % (0.0-0.5); Lymphocytes Absolute Auto 0.7 10^3/uL (1.2-3.8); Mean Corpuscular HGB Conc 29.9 g/dL (29.9-35.2); Mean Corpuscular Hemoglobin 27.6 pg (25.9-34.0); Mean Corpuscular Volume 92.2 fL (80.0-94.0); Mean Platelet Volume 12.1 fL (9.5-13.5); Monocytes Absolute Auto 0.5 10^3/uL (0.3-0.8); Monocytes Percent Auto 7.7 % (1.7-12.0); Neutrophils Absolute Auto 4.4 10^3/uL (1.4-6.5); Neutrophils Percent Auto 75.7 % (43.0-75.0); Platelet Count 130 10^3/uL (150-450); Red Blood Count 2.94 10^6/uL (4.70-6.10); White Blood Count 5.8 10^3/uL (4.0-11.0)
[2023-11-10 11:14] LABS: Anion Gap 14.5; BUN Creatinine Ratio 14.1; Calcium 8.5 mg/dL (8.5-10.1); Carbon Dioxide 25.8 mmol/L (21.0-32.0); Chloride 107 mmol/L (98-107); Estimated GFR (African America 16 (>=60); Estimated GFR (Non-African Ame 13 (>=60); Glucose 149 mg/dL (74-106); Magnesium 2.3 mg/dL (1.8-2.4); Potassium 4.3 mmol/L (3.5-5.1); Sodium 143 mmol/L (136-145)
== END 2023-11-20 23:59 | disposition home or self-care (01) ==
LOC: LAB 06:15
PROVIDERS: Visit Provider Family Medicine
DX: I50.43 Acute on chronic combined systolic (congestive) and diastolic (congestive) heart failure (principal); E11.59 Type 2 diabetes mellitus with other circulatory complications; N40.1 Benign prostatic hyperplasia with lower urinary tract symptoms; N18.9 Chronic kidney disease, unspecified; E11.22 Type 2 diabetes mellitus with diabetic chronic kidney disease; N17.9 Acute kidney failure, unspecified
CPT/HCPCS: 36415; 80048; 83735; 85025

== ENCOUNTER 2023-11-03 14:34 | Inpatient (IN) | payer MEDICARE, SELFPAY ==
[2023-11-03] VITALS (22 sets, daily range): BP systolic 156–215; BP diastolic 75–95; PULSE 84–92; TEMP 36.1–36.6; O2SAT 87–97; BMI 33.9; BMI 32.6
--- NOTE | 2023-11-03 14:44 | ECG_ITS ---
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
--- NOTE | 2023-11-03 14:44 | CT_ITS ---
[address] [address] Patient Name: OLIVERIO RUTLEDGE MRN: [id number] date: 1945 Sex: M Assigned Patient Location: ER Current Patient Location: ED.MAIN Accession/Order Number: [id number] Exam Date: 11/03/2023 15:25 Report Date: 11/03/2023 15:54 At the request of: EDNA SEXTON Procedure: CT abdomen pelvis wo con EXAM: CT abdomen pelvis wo con HISTORY: abd pain COMPARISON: None. TECHNIQUE: CT of the abdomen and pelvis without intravenous contrast. Dose reduction techniques were achieved by using automated exposure control and/or adjustment of mA and/or kV according to patient size and/or use of iterative reconstruction technique. FINDINGS: Limited evaluation of the viscera/organs and vasculature without intravenous contrast. TUBES AND IMPLANTS: None. LOWER CHEST: Prior median sternotomy. Mild cardiomegaly. ABDOMEN and PELVIS ABDOMINAL WALL AND SOFT TISSUES: Unremarkable. BONES: Osteopenia. No suspicious lesions. Multilevel degenerative changes of the spine ARTERIES: Incompletely evaluated. Severe aortoiliac calcification without aneurysm VEINS: Incompletely evaluated. LYMPH NODES: Unremarkable. PERITONEUM/ RETROPERITONEUM: Unremarkable. BOWEL: No obstruction APPENDIX: Not identified. No inflammatory changes in its expected location. LIVER: No suspicious lesions. GALLBLADDER: Gallstone. No wall thickening. No pericholecystic fluid BILE DUCTS: Not dilated SPLEEN: Unremarkable. PANCREAS: Unremarkable. ADRENALS: Unremarkable. KIDNEYS/ URETERS: Unremarkable. REPRODUCTIVE ORGANS: Unremarkable URINARY BLADDER: Unremarkable. CT/CT abdomen pelvis wo con IMPRESSION: No acute abdominopelvic process is identified. Cholelithiasis. Electronically authenticated by: GURVINDER ASPP Date: 11/03/2023 15:54
--- NOTE | 2023-11-03 14:50 | ED_ITS ---
HPI - Altered Mental Status General Chief Complaint: Altered Mental Status Stated Complaint: ABNORMAL LAB VALUE Time Seen by Provider: 11/03/23 14:38 Source: medical record and other Source comment: ems Mode of arrival: ambulance Limitations: altered mental status History of Present Illness HPI narrative: Patient presents to ED From [facility] for evaluation of altered mentation and abnormal labs. Apparently had an elevated BUN and creatinine which is the reason he was being sent over. The patient complains of generalized abdominal pain which is worse on the left side. He is a DNR Comfort Care arrest. Patient has a history of heart transplant. He appears to be mildly short of breath but denies that he feels short of breath. No acute chest pain at this time no syncope prior to arrival. Patient reports that he has not been passing gas and he has not had any bowel movements recently. Alert and oriented x 2 at baseline which seems to be consistent with his mentation today.EMS reports that he seemed uncomfortable on the ride over every time they were going over bumps like railroad tracks. Patient was unable to tell me exactly what was making him feel uncomfortable on the ride. Related Data Allergies Allergy/AdvReac Type Severity Reaction Status Date / Time allopurinol AdvReac Intermediate Verified 04/14/23 18:08 cefazolin AdvReac Intermediate Verified 04/14/23 18:08 Review of Systems ROS Status of ROS 10 or more systems reviewed and unremark able except as noted in history and below Exam Narrative Exam Narrative: Time Seen: [] Vital Signs: [Per nurse's notes.] General: [Alert] Skin: [Warm, dry, no rash.] Head: [Normocephalic, atraumatic.] Neck: [Supple, trachea midline.] Eye: [Pupils are equal, round and reactive to light, extraocular movements are intact, normal conjunctiva.] Ears, nose, mouth and throat: oral mucosa moist. Cardiovascular: [Regular rate and rhythm, no murmur.] Respiratory: [Diminished breath sounds bilaterally mildly labored breathing sounds are equal.] Chest wall: [No tenderness, no deformity.] Gastrointestinal: Abdomen is distended, mildly firm. Hypoactive bowel sounds. Left lower quadrant abdominal pain. MSK: 5 out of 5 muscle strength x 4 extremities no calf pain or edema Lymphatics: [No lymphadenopathy.] Psychiatric: [Cooperative, appropriate mood & affect.] Neurological: [Alert and oriented to person, place, no focal neurological deficit observed.] Constitutional Vital Signs, click to edit/add: Last Vital Signs Temp 97.9 F 11/03/23 14:41 Pulse 90 11/03/23 16:20 Resp 23 H 11/03/23 16:20 BP 172/90 H 11/03/23 16:20 Pulse Ox 94 L 11/03/23 16:20 Course Vital Signs Vital signs: Vital Signs Temperature 97.9 F 11/03/23 14:41 Pulse Rate 89 11/03/23 14:41 Respiratory Rate 22 H 11/03/23 14:41 Pulse Oximetry 95 11/03/23 14:41 Temperature 97.9 F 11/03/23 14:41 Pulse Rate 90 11/03/23 16:20 Respiratory Rate 23 H 11/03/23 16:20 Blood Pressure 172/90 H 11/03/23 16:20 Pulse Oximetry 94 L 11/03/23 16:20 MDM - Altered Mental Status MDM Narrative Medical decision making narrative: Patient's labs show an elevated BUN and creatinine. His BUN/creatinine are always slightly elevated but they are much more elevated today. He has acute on chronic renal failure. Patient is a DNR Comfort Care arrest. Patient still complaining of abdominal pain however his lactate is normal and his CT scan does not show anything acute. Cholelithiasis but lipase is normal and no elevated white blood cell count. Low suspicion for mesenteric ischemia. Patient's labs are otherwise stable and at his baseline. Troponin is not elevated acutely. I spoke to Dr. Mendez who will admit the patient for IV hydration overnight. Patient is comfortable care plan for admit Differential Diagnosis Differential diagnosis: Likely altered mental status, dementia and sepsis Medical Records Attestation: I reviewed the patient's medical records. Lab Data Attestation: I reviewed the patient's lab results. Labs: Lab Results 11/03/23 11/03/23 Range/Units 15:09 15:51 WBC 8.2 (4.0-11.0) 10^3/uL RBC 3.30 L (4.70-6.10) 10^6/uL Hgb 9.1 L (14.0-18.0) g/dL Hct 30.7 L (42.0-54.0) % MCV 93.0 (80.0-94.0) fL MCH 27.6 (25.9-34.0) pg MCHC 29.6 L (29.9-35.2) g/dL RDW 14.1 (11.0-15.0) % Plt Count 156 (150-450) 10^3/uL MPV 11.2 (9.5-13.5) fL Neut % (Auto) 82.5 H (43.0-75.0) % Lymph % (Auto) 9.9 L (20.5-60.0) % [place] % (Auto) 5.6 (1.7-12.0) % Eos % (Auto) 1.0 (0.9-7.0) % Baso % (Auto) 0.5 (0.2-2.0) % Neut # (Auto) 6.7 H (1.4-6.5) 10^3/uL Lymph # (Auto) 0.8 L (1.2-3.8) 10^3/uL [place] # (Auto) 0.5 (0.3-0.8) 10^3/uL Eos # (Auto) 0.1 (0.0-0.7) 10^3/uL Baso # (Auto) 0.0 (0.0-0.1) 10^3/uL Abs Immat Gran (auto) 0.04 H (0.00-0.03) 10^3/uL Imm/Tot Granulo (auto) 0.5 (0.0-0.5) % PT 10.9 (9.0-11.6) sec INR 1.03 Puncture Site R radial ABG pH 7.346 L (7.350-7.450) ABG pCO2 48.8 H (35.0-45.0) mmHg ABG pO2 65.5 L (80.0-100.0) mmHg ABG HCO3 26.7 H (22.0-26.0) mmol/L ABG O2 Saturation 93.3 % ABG Base Excess 1.0 (-2.0-2.0) mmol/L [place] Test Pos (POSITIVE) Sodium 140 (136-145) mmol/L Potassium 4.3 (3.5-5.1) mmol/L Chloride 103 (98-107) mmol/L Carbon Dioxide 28.3 (21.0-32.0) mmol/L Anion Gap 13.0 BUN 73.0 H (7.0-18.0) mg/dL Creatinine 4.97 H (0.70-1.30) mg/dL Est GFR ( Amer) 14 L (>=60) Est GFR (Non-Af Amer) 11 L (>=60) BUN/Creatinine Ratio 14.7 Glucose 242 H (74-106) mg/dL Lactate 1.4 (0.4-2.0) mmol/L Calcium 8.9 (8.5-10.1) mg/dL Total Bilirubin 0.3 (0.2-1.0) mg/dL AST 14 L (15-37) U/L ALT 9 L (16-63) U/L Alkaline Phosphatase 83 (46-116) U/L Troponin I High Sens 31.1 (4.0-76.1) pg/mL Total Protein 7.3 (6.4-8.2) g/dL Albumin 3.0 L (3.4-5.0) g/dL Globulin 4.3 g/dL Albumin/Globulin Ratio 0.7 Lipase 46.0 (16.0-77.0) U/L Imaging Data CT scan - abdomen: Radiologist's impression: ITS Impressions Abdomen/Pelvis CT 11/03/23 14:44 IMPRESSION: No acute abdominopelvic process is identified. Cholelithiasis. Electronically authenticated by: GURVINDER SAPP Date: 11/03/2023 15:[address] 11/03/23 16:18 IMPRESSION: No acute intracranial process is noted. 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 Electronically authenticated by: PARAMJIT GRIFFITHS Date: 11/03/2023 16:35 ECG Data Interpretation: EKG INTERPRETATION Time: []1534 Rate: []88 Rhythm: _ []Sinus rhythm with first-degree AV block incomplete right bundle branch block ST segments: _ []no acute ST elevation or depression T waves: _ [] Ectopy: _ [] P wave/OK interval: _ [] QRS interval: _ [] QT interval: _ [] Comparison: _ [] Comparison EKG date: [] Performed by: [self] Discharge Plan Discharge Chief Complaint: Altered Mental Status Clinical Impression: DAVID (acute kidney injury), AMS (altered mental status) Patient Disposition: Admitted as Observation Time of Disposition Decision: 16:42 Condition: Fair Print Language: Slovenian Referrals: Physician,Non-Staff, [Physician] - 1 week
[2023-11-03 15:28] LABS: Basophils Percent Auto 0.5 % (0.2-2.0); Eosinophils Absolute Auto 0.1 10^3/uL (0.0-0.7); Hematocrit 30.7 % (42.0-54.0); Hemoglobin 9.1 g/dL (14.0-18.0); Immature Granulocytes Abs Auto 0.04 10^3/uL (0.00-0.03); Immature Granulocytes Pct Auto 0.5 % (0.0-0.5); Lymphocytes Absolute Auto 0.8 10^3/uL (1.2-3.8); Lymphocytes Percent Auto 9.9 % (20.5-60.0); Mean Corpuscular HGB Conc 29.6 g/dL (29.9-35.2); Mean Corpuscular Hemoglobin 27.6 pg (25.9-34.0); Mean Platelet Volume 11.2 fL (9.5-13.5); Monocytes Absolute Auto 0.5 10^3/uL (0.3-0.8); Monocytes Percent Auto 5.6 % (1.7-12.0); Neutrophils Absolute Auto 6.7 10^3/uL (1.4-6.5); Neutrophils Percent Auto 82.5 % (43.0-75.0); Platelet Count 156 10^3/uL (150-450); Red Cell Distribution Width 14.1 % (11.0-15.0); White Blood Count 8.2 10^3/uL (4.0-11.0)
[2023-11-03 15:35] LABS: INR 1.03; Prothrombin Time 10.9 sec (9.0-11.6)
[2023-11-03 15:39] LABS: Alanine Aminotransferase 9 U/L (16-63); Albumin Globulin Ratio 0.7; Alkaline Phosphatase 83 U/L (46-116); Aspartate Amino Transferase 14 U/L (15-37); BUN Creatinine Ratio 14.7; Bilirubin Total 0.3 mg/dL (0.2-1.0); Calcium 8.9 mg/dL (8.5-10.1); Carbon Dioxide 28.3 mmol/L (21.0-32.0); Chloride 103 mmol/L (98-107); Estimated GFR (African America 14 (>=60); Estimated GFR (Non-African Ame 11 (>=60); Globulin 4.3 g/dL; Glucose 242 mg/dL (74-106); Potassium 4.3 mmol/L (3.5-5.1); Sodium 140 mmol/L (136-145); Total Protein 7.3 g/dL (6.4-8.2)
[2023-11-03 15:41] LABS: Lactate/Lactic Acid 1.4 mmol/L (0.4-2.0)
[2023-11-03 15:42] LABS: Troponin I High Sensitivity 31.1 pg/mL (4.0-76.1)
[2023-11-03 15:55] LABS: ABG PCO2 48.8 mmHg (35.0-45.0); HCO3 ABG 26.7 mmol/L (22.0-26.0); PO2 ABG 65.5 mmHg (80.0-100.0); pH ABG 7.346 (7.350-7.450)
[2023-11-03 15:56] LABS: Allen Test POS (POSITIVE); O2 Mode ROOM AIR; Oxygen Saturation ABG 93.3 %; Puncture Site R RADIAL
--- NOTE | 2023-11-03 16:18 | CT_ITS ---
The [address] [address] Patient Name: OLIVERIO RUTLEDGE MRN: [id number] date: 1945 Sex: M Assigned Patient Location: ER Current Patient Location: ER Accession/Order Number: [id number] Exam Date: 11/03/2023 16:13 Report Date: 11/03/2023 16:35 At the request of: EDNA SEXTON Procedure: CT head/brain wo con CT head/brain wo con, 11/03/2023 4:13 PM EDT INDICATION: Altered mental status COMPARISON: Prior CT of the head dated 04/14/2023 TECHNIQUE: Axial CT images of the brain from skull base to vertex, including portions of the face and sinuses, were obtained without contrast . Multiplanar reformatted images were generated and reviewed as needed. Dose reduction techniques were achieved by using automated exposure control and/or adjustment of mA and/or kV according to patient size and/or use of iterative reconstruction technique. FINDINGS: The cerebral sulci as well as ventricular system are enlarged consistent with moderate ex vacuo cerebral volume loss. Stable encephalomalacia within the frontal lobes left more than right likely due to prior CVAs. Stable lacunar infarct within the anterior limb of the left internal capsule. There is no intracranial mass, mass effect, midline shift, intra or extra-axial fluid collection or hemorrhage. Periventricular and centrum semiovale hypodensities are most likely consistent with microvascular ischemic changes. There is status post bilateral lens replacement. The visualized portions of orbits, mastoid air cells as well as paranasal sinuses are unremarkable. There is no suspicious osteolytic or osteoblastic lesion. CT/CT head/brain wo con IMPRESSION: No acute intracranial process is noted. 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 Electronically authenticated by: PARAMJIT GRIFFITHS Date: 11/03/2023 16:35
[2023-11-03] MEDS: 0.9 % SODIUM CHLORIDE 1,000 ML 150 ML IV (16:51)
[2023-11-03 16:55] LABS: Bilirubin Urine NEGATIVE (NEGATIVE); Blood Urine SMALL (NEGATIVE); Clarity Urine SL CLOUDY (CLEAR); Color Urine LT. YELLOW (YELLOW); Glucose Urine UA 250 mg/dL (NEGATIVE); Ketones Urine NEGATIVE (NEGATIVE); Leukocyte Esterase Urine NEGATIVE (NEGATIVE); Nitrite Urine NEGATIVE (NEGATIVE); Protein Urine >=300 mg/dL (NEG/TRACE); Specific Gravity Urine 1.025 (1.005-1.025); Urobilinogen Urine 0.2 EU/dL (0.2-1.0)
[2023-11-03 17:00] LABS: Ammonia 29 umol/L (11-32)
[2023-11-03 17:09] LABS: Urine Microscopic Indicated YES
--- NOTE | 2023-11-03 17:22 | PC.NURSE ---
PT REFUSING BP AT THIS TIME
[2023-11-03 17:26] LABS: Bacteria Urine TRACE #/HPF (NONE SEEN); Mucus Urine SMALL (NONE SEEN); Squamous Epithelial Cell Urine RARE #/LPF (NONE/RARE); WBC Urine 0-2 #/HPF (NONE SEEN)
[2023-11-03 17:27] LABS: Amorphous Sediment Urine MANY; Cast Seen? NONE SEEN #/LPF (NONE SEEN); Crystals Seen? Seen #/HPF (None Seen); Urine Culture Indicated NO
--- NOTE | 2023-11-03 17:49 | P.HP_ITS ---
HPI H&P: HPI History of Present Illness Chief complaint: ABNORMAL LAB VALUE, DAVID, AMS Narrative: Patient has [facility] presented to the emergency room with increasing creatinine done on routine blood work. His baseline creatinine is 2.17 his creatinine was listed at 5. That is over 200% above baseline. Patient to be admitted for workup and treatment of same. I saw patient up on the medical surgical floor, he was resting comfortably, very agitated does not want to be here does not want any testing done. Denies any complaints. No nausea no vomiting no diarrhea good appetite, no chest pain no shortness of breath. Encouraged him to talk to his and see with able to work out in terms of staying here Opioid HPI Opioid Management Most Recent Pain and Opioid Data: Last Pain Assessment 11/03/23 18:00 Last ORT Total Score 0 11/03/23 17:50 Last ORT Risk Category Low Risk 11/03/23 17:50 Review of Systems ROS Status of ROS 10 or more systems reviewed and unremark able except as noted in history and below PFSH PFS Medical History (Updated 11/03/23 @ 18:14 by Nubia Joy) CVA (cerebral vascular accident) ?I63.9 - Cerebral infarction, unspecified (ICD-10) Parkinson disease ?G20.A1 - Parkinson's disease without dyskinesia, without mention of fluctuations (ICD-10) Surgical History (Updated 11/03/23 @ 18:14 by Nubia Joy) Heart transplanted ?Z94.1 - Heart transplant status (ICD-10) Social History Highest level of school completed/degree received: 9th grade Meds Home Medications and Allergies Home Medications ?Medication ?Instructions ?Recorded ?Confirmed ?Type acetaminophen 500 mg capsule 500 mg PO Q4H PRN fever or pain 11/03/23 11/03/23 History aspirin 81 mg tablet,delayed 81 mg PO DAILY 11/03/23 11/03/23 History release (Adult Low Dose Aspirin) atorvastatin 80 mg tablet 80 mg PO .QHS 11/03/23 11/03/23 History buspirone 10 mg tablet 10 mg PO BID 11/03/23 11/03/23 History calcitonin (salmon) 200 1 spray intranasal DAILY 11/03/23 11/03/23 History unit/actuation nasal spray carbidopa 25 mg-levodopa 100 mg 1.5 tab PO TID 11/03/23 11/03/23 History tablet cholecalciferol (vitamin D3) 25 1,000 unit PO DAILY 11/03/23 11/03/23 History mcg (1,000 unit) capsule clonidine HCl 0.2 mg tablet 0.2 mg PO Q12H 11/03/23 11/03/23 History clopidogrel 75 mg tablet 75 mg PO DAILY 11/03/23 11/03/23 History diltiazem HCl 300 mg 300 mg PO .QHS 11/03/23 11/03/23 History capsule,extended release 24 hr docusate sodium 100 mg capsule 100 mg PO BID 11/03/23 11/03/23 History furosemide 40 mg tablet 40 mg PO DAILY 11/03/23 11/03/23 History hydralazine 100 mg tablet 100 mg PO Q8H 11/03/23 11/03/23 History insulin glargine 100 unit/mL (3 55 unit subcut BID 11/03/23 11/03/23 History mL) subcutaneous pen (Lantus Solostar U-100 Insulin) Allergies Allergy/AdvReac Type Severity Reaction Status Date / Time allopurinol AdvReac Intermediate Verified 04/14/23 18:08 cefazolin AdvReac Intermediate Verified 04/14/23 18:08 Exam Constitutional Vital Signs, click to edit/add: Last Vital Signs Temp 97.9 F 11/03/23 14:41 Pulse 90 11/03/23 16:20 Resp 23 H 11/03/23 16:20 BP 172/90 H 11/03/23 16:20 Pulse Ox 94 L 11/03/23 16:20 Documenting provider has reviewed patient's vital signs: yes Common normals: apparent distress (Distressed due to agitation) Respiratory Common normals: normal respiratory effort and no retractions Cardio Common normals: regular rate and regular rhythm GI Common normals: Normal to inspection, nondistended, normoactive bowel sounds present and soft to palpation; tender (Mild diffuse tenderness no rebound tenderness) Extremity Common normals: abnormal to inspection (Right-sided weakness due to previous stroke) Results Labs Labs: Short CBC 11/03/23 Range/Units 15:09 WBC 8.2 (4.0-11.0) 10^3/uL Hgb 9.1 L (14.0-18.0) g/dL Hct 30.7 L (42.0-54.0) % Plt Count 156 (150-450) 10^3/uL BMP 11/03/23 15:09 Sodium 140 Potassium 4.3 Chloride 103 Carbon Dioxide 28.3 BUN 73.0 H Creatinine 4.97 H Glucose 242 H Calcium 8.9 Liver Function 11/03/23 Range/Units 15:09 Total Bilirubin 0.3 (0.2-1.0) mg/dL AST 14 L (15-37) U/L ALT 9 L (16-63) U/L Alkaline Phosphatase 83 (46-116) U/L Albumin 3.0 L (3.4-5.0) g/dL Urine 11/03/23 Range/Units 15:56 Urine Color Lt. yellow (YELLOW) Urine Clarity Sl cloudy (CLEAR) Urine pH 6.0 (5.0-9.0) Ur Specific [place] 1.025 (1.005-1.025) Urine Protein >=300 A (NEG/TRACE) mg/dL Urine Glucose (UA) 250 A (NEGATIVE) mg/dL ABG ABG results: 11/03/23 15:51 ABG pH 7.346 L ABG pCO2 48.8 H ABG pO2 65.5 L ABG HCO3 26.7 H ABG O2 Saturation 93.3 ABG Base Excess 1.0 Assessment and Plan Assessment and Plan (1) AMS (altered mental status): (2) DAVID (acute kidney injury): (3) CVA (cerebral vascular accident): (4) Parkinson disease: Plan Admission findings: Respiratory distress, hypertensive urgency with blood pressure greater than 200 systolic and greater than 110 diastolic, acute hypoxia with O2 sat of 87%, labs with acute renal failure as outlined above. Admitted for workup and treatment of same Hypertensive urgency-this may be related to blood pressure medication versus his agitation-will have as needed hydralazine. No focal neurological deficits. He has his neurodeficits from previous CVA Acute renal failure-baseline creatinine of 2.17 creatinine on admission of 5, there is 230.4% above baseline. Gentle IV hydration. Unable to give large fluid boluses can [place] to his history of fluid retention and age Iron deficiency anemia-monitor daily Insulin-dependent diabetes mellitus-insulin sliding scale Prior CVA-continue with Plavix Parkinson's-continue with medications Admission status: With the degree of his renal failure and history of fluid retention, unable to hydrate quickly, medically necessary treatment will span 2 midnights. Inpatient status
--- OUTSIDE RECORDS SUMMARY | 2023-11-03 17:52 | XMS_ITS | CCD ---
Author Organization [facility] Care Team Providers Care Hydrogeology Professor Name Role Phone Michael Carballo Unavailable Unavailable Unavailable Michael Carballo Primary Care Provider MD Michael Carballo Primary Care Provider JIL Davies Attending Provider DO Manfred Wilson Primary Care Provider [facility] DO Andrew Hernández Emergency Provider [phone] MD Omid Myrick Admit Provider MD Omid Myrick Attending Provider Al MD Yoshi Campoverde Attending Provider Michael Carballo Unavailable DionPascual wheataashish Unavailable Palliative Care Unavailable Unavailable Gene Shook Unavailable Felicia Astorga Unavailable Michael Carballo Primary Care Provider [phone] DONNA ARELLANO Referring Unavailable MICHAEL CARBALLO Primary [...] Translations: [allopurinol] Drug Allergy 10-16-2018 [facility] (8 sources) ceFAZolin; Translations: [Cefazolin] Drug Allergy 06-25-2021 Rash, [facility] Comment on above: extensive fiery red and warm flat rash (1 source) Allopurinol Drug Allergy [facility] (1 source) ceFAZolin Drug Allergy [facility] (1 source) Allopurinol Drug Allergy 06-25-2021 [facility] Medications Current Medications Medication Drug Class(es) [...] mg Start: 11-03-2018 take [address] [facility] once daily in the evening dilTIAZem HCl ER Coated Beads 300 MG Oral Capsule Extended Release 24 Hour take 1 capsule every evening Quantity: 0 Refills: 0 Ordered: 04-Jul-2021 Felicia Astorga DO Start : 03-Nov-2018 Active Start: 11-03-2018 take 1 capsule [address] [facility] once daily dilTIAZem HCl ER Coated Beads 360 MG Oral Capsule Extended Release 24 Hour TAKE 1 CAPSULE Daily Quantity: 30 Refills: 11 Ordered: 03-Nov-2018 Felicia Astorga DO Start : 03-Nov-2018 Active Start: 11-03-2018 take 1 capsule by [facility] once daily dilTIAZem HCl ER Coated Beads 240 MG Oral Capsule Extended Release 24 Hour TAKE 1 CAPSULE Daily Quantity: 90 Refills: 3 Ordered: 24-Dec-2020 Felicia Astorga DO Start : 03-Nov-2018 Active Start: 10-31-2018 take [address] capsule [address] [facility] every twenty-four hours dilTIAZem 240 mg/24 hours [...] mg Start: 11-02-2018 take [address] capsule [address] [facility] every twelve hours Mycophenolate Mofetil 250 MG [...] Tamiko Dsouza Status: Discontinued Generic Substitution Allowed [place] 2-Etv-Qlq-Fish Oil (Fish Oil) 1,000 mg (120 mg-180 mg) Capsule (4 sources) Start: 08-05-2017 take 1 tablet by mouth twice daily [place] 2-Ket-Lbu-Fish Oil (Fish Oil) 1,000 mg (120 mg-180 mg) Capsule Active 1 TAB PO Twice daily August 05, 2017 11:13am Start: 08-05-2017 take 1 tablet by anila th once daily [place] 3-Ubz-Yjo-Fish Oil (Fish Oil) 1,000 mg (120 mg-180 mg) Capsule Active 1 TAB PO Daily August 05, 2017 11:13am Start: 08-05-2017 take 1 tablet by anila th twice daily [place] 3-Ohg-Cck-Fish Oil (Fish Oil) 1,000 mg (120 mg-180 [...] tube 2 times a day only on Dwpewk-Msqeqnnrp-Ayxvzs Quantity: 24 Refills: 0 Ordered: 21-Jan-2016 Warren [...] liver damage. take 2 tablets by mo [facility] every six hours as needed for [...] Start: 10-15-2021 take 2 tablets by mo [facility] once daily busPIRone HCl - 10 MG Oral Tablet TAKE 2 TABLET Daily Quantity: 0 Refills: 0 Ordered: 15-Oct-2021 DO Start : 15-Oct-2021 [facility] busPIRone (BUSPAR) 15 MG [...] Allowed Start: 10-31-2018 take [address] [facility] every six hours as needed diphenhydrAMINE 25 [...] 1 capsule by mouth twice da padmaja [place]-3 Fatty Acids (FISH OIL) 1000 MG CAPS [...] if Blood Glucose is between 251 - 30850 unit(s) if Blood Glucose is between 301 - 49953 unit(s) if Blood Glucose is between 351 [...] if Blood glucose is between 301 - 92949 unit(s) if Blood glucose is between 351 [...] 02-Jul-2021 Generic Substitution Allowed polyethylene glycol 3350 29190 mg powder for oral solution (7 sources) Osmotic Laxative Start: 10-15-2021 MiraLax Mix-I n Crawford 17 GM Oral Packet MIX 1 PACKET [...] Allowed Start: 07-02-2021 take [address] 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-2021 Past or Other Problems Problem Classification Problem Date Documented Da te Episodic/Chronic Other gastrointestinal disorders (1 source) Dysphagia, unspecified; Translations: [DYSPHAGIA UNSPECIFIED] Onset: 08-08-2021 Episodic 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 (1 source) SWELLING UPPER/LOW EXTREMITIES 06-27-2021 Comment on above: SWELLING UPPER/LOW E XTREMITIES Results Test Name Value Interpretation Reference Range Facility [facility] 09-14-2022 Lab Reports [id number]:127 Normal [facility] VIT D 25-OH L[facility]on 2022 Vitamin D, 25-Hydroxy 29.5 ng/mL Critically low 30.0-100.0 [facility] Comment on above: Result Comment: Jennifer min D deficiency has been defined by the [place] of [employer] and an Endocrine Society practice guideline as a level of serum 25-OH vitamin D less than 20 ng/mL (1,2). The Endocrine Society went on to further define vitamin D insufficiency as a level between 21 and 29 ng/mL (2). 1. IOM ([place] of [employer]). 2010. Dietary reference intakes for calcium and D. [place]: The National Academies Press. 2. Ely MF, Brad [place], Kristy ORTEGA, et al. Evaluation, treatment, and prevention of vitamin D deficiency: an Endocrine Society clinical practice guideline. JCEM. 2010; 96(7):1911-30. Performed By: #### V ITADLC #### [facility] [address] [place] [address] Dr. Ronnie Pennington CBC AUTO DIFFon 07-24-2022 BASO # 0.0 103/ul Normal 0.0-0.1 [facility] Comment on above: Performed By: #### C BC #### [facility] [id number] Ronnie Pennington Basophils/100 WBC (Bld) 0.6 % Normal 0.2-2.0 [facility] Comment on above: Performed By: #### C BC #### [facility] [address] [address] [address] Ronnie Pennington EO # 0.1 103/ul Normal 0.0-0.7 [facility] Comment on above: Performed By: #### C BC #### [facility] [address] [address] [address] Ronnie Pennington Eosinophils/100 WBC (Bld) 2.0 % Normal 0.9-7.0 [facility] Comment on above: Performed By: #### C BC #### [facility] [address] [place] [address] Dr. Ronnie Pennington Erythrocyte distribution width (RBC) [Ratio] 13.2 % Normal 11.0-15.0 [facility] Comment on above: Performed By: #### C BC #### [facility] [address] [place] [address] Dr. Ronnie Pennington Hematocrit (Bld) [Volume fraction] 33.3 % Critically low 42.0-54.0 [facility] Comment on above: Performed By: #### C BC #### [facility] [address] [place] [address] Dr. Ronnie Pennington Hemoglobin (Bld) [Mass/Vol] 10.0 g/dL Critically low 14.0-18.0 [facility] Comment on above: Performed By: #### C BC #### [facility] [address] [address] [address] Ronnie Pennington IG # 0.04 10e3/ul Critically high 0.00-0.03 [facility] Comment on above: Performed By: #### C BC #### [facility] [address] [address] [address] Ronnie Pennington IG % 0.6 % Critically high 0.0-0.5 [facility] Comment on above: Performed By: #### C BC #### [facility] [address] [place] [address] Dr. Ronnie Pennington LYMPH # 1.2 103/ul Normal 1.2-3.8 [facility] Comment on above: Performed By: #### C BC #### [facility] [address] [place] [address] Dr. Ronnie Pennington Lymphocytes/100 WBC (Bld) 17.9 % Critically low 20.5-60.0 [facility] Comment on above: Performed By: #### C BC #### [facility] [address] [place] [address] Dr. Ronnie Pennington MANUAL DIFF REQ NO Normal [facility] Comment on above: Performed By: #### C BC #### [facility] [address] [place] [address] Dr. Ronnie Pennington MCH (RBC) [Entitic mass] 28.2 pg Normal 25.9-34.0 [facility] Comment on above: Performed By: #### C BC #### [facility] [address] [place] [address] Dr. Ronnie Pennington MCHC (RBC) [Mass/Vol] 30.0 g/dL Normal 29.9-35.2 [facility] Comment on above: Performed By: #### C BC #### [facility] [address] [place] [address] Dr. Ronnie Pennington MCV (RBC) [Entitic vol] 94.1 fL Critically high 80.0-94 .0 [facility] Comment on above: Performed By: #### C BC #### [facility] [address] [place] [address] Dr. Ronnie Pennington MONO # 0.4 103/ul Normal 0.3-0.8 [facility] Comment on above: Performed By: #### C BC #### [facility] [address] [place] [address] Dr. Ronnie Pennington Monocytes/100 WBC (Bld) 6.5 % Normal 1.7-12.0 [facility] Comment on above: Performed By: #### C BC #### [facility] [address] [place], [place] [id number] Dr. Ronnie Pennington NEUT # 4.8 103/ul Normal 1.4-6.5 [facility] Comment on above: Performed By: #### C BC #### [facility] [address] [place] [address] Dr. Ronnie Pennington Neutrophils/100 WBC (Bld) 72.4 % Normal 43.0-75.0 [facility] Comment on above: Performed By: #### C BC #### [facility] [address] [place] [address] Dr. Ronnie Pennington Platelet mean volume (Bld) [Entitic vol] 11.7 fL Normal 9.5-13.5 [facility] Comment on above: Performed By: #### C BC #### [facility] [address] [place] [address] Dr. Ronnie Pennington PLT 137 103/ul Critically low 150-450 [facility] Comment on above: Performed By: #### C BC #### [facility] [address] [place] [address] Dr. Ronnie Pennington RBC 3.54 106/ul Critically low 4.70-6.10 [facility] Comment on above: Performed By: #### C BC #### [facility] [address] [place] [address] Dr. Ronnie Pennington WBC 6.6 103/ul Normal 4.0-11.0 [facility] Comment on above: Performed By: #### C BC #### [facility] [address] [place] [address] Dr. Ronnie Pennington GLYCOHEMOGLOBIN A1Con 2022 ADA RECOMMENDATION SEE BELOW Normal [facility] Comment on above: Result Comment: ADA RECOMMENDED LIMIT 4.0 - 6.0 ADA THERAPEUTIC TARGET < 7.0 ACTION SUGGESTED > 7.0 Performed By: #### A 1C #### [facility] [address] [place] [address] Dr. Ronnie Pennington Glucose [Mass/Vol] 171 mg/dL Normal [facility] Comment on above: Performed By: #### A 1C #### [facility] [address] [place] [address] Dr. Ronnie Pennington HbA1c (Bld) [Mass fraction] 7.6 % Critically high 4.5-6.2 [facility] Comment on above: Performed By: #### A 1C #### [facility] [address] [address] [address] Ronnie Pennington MAGNESIUMon 07-24-2022 Magnesium [Mass/Vol] 2.3 mg/dL Normal 1.8-2.4 [facility] Comment on above: Performed By: #### M G, TSH, CMP ####[facility] [address] [address]DrFreddy Pennington PROF 14(COMP METB)on 023 Albumin [Mass/Vol] 2.8 g/dL Critically low 3.4-5.0 [facility] Comment on above: Performed By: #### M G, TSH, CMP ####[facility] [address] [address]DrFreddy Pennington Albumin/Globulin [Mass ratio] 0.7 {ratio} Normal [facility] Comment on above: Performed By: #### M G, TSH, CMP ####[facility] [address] [address]Dr. Ronnie Pennington ALP [Catalytic activity/Vol] 69 U/L Normal 46-116 [facility] Comment on above: Performed By: #### M G, TSH, CMP ####[facility] [address] [address]DrFreddy Pennington ALT [Catalytic activity/Vol] 8 U/L Critically low 16-63 [facility] Comment on above: Performed By: #### M G, TSH, CMP ####[facility] [address] [address]Dr. Ronnie Pennington Anion gap [Moles/Vol] 9.9 mmol/L Normal [facility] Comment on above: Performed By: #### M G, TSH, CMP ####[facility] [address] [address]Dr. Ronnie Pennington AST [Catalytic activity/Vol] 9 U/L Critically low 15-37 [facility] Comment on above: Performed By: #### M G, TSH, CMP ####[facility] [address] [address]Dr. Ronnie Pennington Bilirubin [Mass/Vol] 0.2 mg/dL Normal 0.2-1.0 [facility] Comment on above: Performed By: #### M G, TSH, CMP ####[facility] [address] [place], [place] [address]Dr. Ronnie Pennington Calcium [Mass/Vol] 8.9 mg/dL Normal 8.5-10.1 [facility] Comment on above: Performed By: #### M G, TSH, CMP ####[facility] [address] [place], [place] [address]Dr. Ronnie Pennington Chloride [Moles/Vol] 104 mmol/L Normal 98-107 [facility] Comment on above: Performed By: #### M G, TSH, CMP ####[facility] [address] [place], [place] [address]Dr. Ronnie Pennington CO2 [Moles/Vol] 28.4 mmol/L Normal 21.0-32.0 [facility] Comment on above: Performed By: #### M G, TSH, CMP ####[facility] [address] [place], [place] [address]Dr. Ronnie Pennington Creatinine [Mass/Vol] 2.09 mg/dL Critically high 0.70-1.30 [facility] Comment on above: Performed By: #### M G, TSH, CMP ####[facility] [address] [place], [place] [address]Dr. Ronnie Pennington EGFR-AF GREEK 37 mL/min/1.73m2 Critically low >=60 [facility] Comment on above: Performed By: #### M G, TSH, CMP ####[facility] [address] [place], [place] [address]Dr. Ronnie Pennington EGFR-NON AF GREEK 31 mL/min/1.73m2 Critically low >=60 [facility] Comment on above: Performed By: #### M G, TSH, CMP ####[facility] [address] [address]Dr. Ronnie Pennington Globulin (S) [Mass/Vol] 3.9 g/dL Normal [facility] Comment on above: Performed By: #### M G, TSH, CMP ####[facility] [address] [address]Dr. Ronnie Pennington Glucose [Mass/Vol] 165 mg/dL Critically high 74-106 [facility] Comment on above: Performed By: #### M G, TSH, CMP ####[facility] [address] [address]Dr. Ronnie Pennington Potassium [Moles/Vol] 4.3 mmol/L Normal 3.5-5.1 [facility] Comment on above: Performed By: #### M G, TSH, CMP ####[facility] [address] [place], [place] [address]Dr. Ronnie Pennington Protein [Mass/Vol] 6.7 g/dL Normal 6.4-8.2 [facility] Comment on above: Performed By: #### M G, TSH, CMP ####[facility] [address] [place], [place] [address]Dr. Ronnie Pennington Sodium [Moles/Vol] 138 mmol/L Normal 136-145 [facility] Comment on above: Performed By: #### M G, TSH, CMP ####[facility] [address] [place], [place] [address]Dr. Ronnie Pennington Urea nitrogen [Mass/Vol] 33.0 mg/dL Critically high 7.0-18.0 [facility] Comment on above: Performed By: #### M G, TSH, CMP ####[facility] [address] [place], [place] [address]Dr. Ronnie Pennington Urea nitrogen/Creatinine [Mass ratio] 15.8 mg/mg Normal [facility] Comment on above: Performed By: #### M G, TSH, CMP ####[facility] [address] [place], [place] [address]Dr. Ronnie Gorge TSHon 07-24-2022 TSH 2.763 uIU/mL Normal 0.358-3.74 0 [facility] Comment on above: Performed By: #### M G, TSH, CMP ####[facility] [address] [address]Dr. Ronnie Pennington FK506 (TACROLIMUS) WHOLE BLO ODon 07-15-2022 Tacrolimus (FK506), Blood 9.4 ng/mL Normal 2.0-20.0 [facility] Comment on above: Result Comment: Trou gh (immediately following transplant) 15.0 . Trough (steady state, 2 weeks or more after transplant): 3.0 - 8.0 . Performed by LC-MS/MS technology. Performed By: #### F [id number] #### [facility] [address] [place] [address] Dr. Ronnie Pennington CBC AUTO DIFFon 07-13-2022 BASO # 0.0 103/ul Normal 0.0-0.1 [facility] Comment on above: Performed By: #### C BC #### [facility] [address] [place] [address] Dr. Ronnie Pennington Basophils/100 WBC (Bld) 0.3 % Normal 0.2-2.0 [facility] Comment on above: Performed By: #### C BC #### [facility] [address] [place] [address] Dr. Ronnie Pennington EO # 0.2 103/ul Normal 0.0-0.7 [facility] Comment on above: Performed By: #### C BC #### [facility] [address] [place] [address] Dr. Ronnie Pennington Eosinophils/100 WBC (Bld) 2.5 % Normal 0.9-7.0 [facility] Comment on above: Performed By: #### C BC #### [facility] [address] [place] [address] Dr. Ronnie Pennington Erythrocyte distribution width (RBC) [Ratio] 13.1 % Normal 11.0-15.0 [facility] Comment on above: Performed By: #### C BC #### [facility] [address] [place] [address] Dr. Ronnie Pennington Hematocrit (Bld) [Volume fraction] 33.4 % Critically low 42.0-54.0 [facility] Comment on above: Performed By: #### C BC #### [facility] [address] [place] [address] Dr. Ronnie Pennington Hemoglobin (Bld) [Mass/Vol] 10.4 g/dL Critically low 14.0-18.0 [facility] Comment on above: Performed By: #### C BC #### [facility] [address] [address] [address] Ronnie Pennington IG # 0.04 10e3/ul Critically high 0.00-0.03 [facility] Comment on above: Performed By: #### C BC #### [facility] [address] [place] [address] Dr. Ronnie Pennington IG % 0.6 % Critically high 0.0-0.5 [facility] Comment on above: Performed By: #### C BC #### [facility] [address] [place] [address] Dr. Ronnie Pennington LYMPH # 1.2 103/ul Normal 1.2-3.8 [facility] Comment on above: Performed By: #### C BC #### [facility] [address] [place] [address] Dr. Ronnie Pennington Lymphocytes/100 WBC (Bld) 16.8 % Critically low 20.5-60.0 [facility] Comment on above: Performed By: #### C BC #### [facility] [address] [place] [address] Dr. Ronnie Pennington MANUAL DIFF REQ NO Normal [facility] Comment on above: Performed By: #### C BC #### [facility] [address] [place] [address] Dr. Ronnie Pennington MCH (RBC) [Entitic mass] 28.5 pg Normal 25.9-34.0 [facility] Comment on above: Performed By: #### C BC #### [facility] [address] [place] [address] Dr. Ronnie Pennington MCHC (RBC) [Mass/Vol] 31.1 g/dL Normal 29.9-35.2 [facility] Comment on above: Performed By: #### C BC #### [facility] [address] [place] [address] Dr. Ronnie Pennington MCV (RBC) [Entitic vol] 91.5 fL Normal 80.0-94.0 [facility] Comment on above: Performed By: #### C BC #### [facility] [address] [place] [address] Dr. Ronnie Pennington MONO # 0.5 103/ul Normal 0.3-0.8 [facility] Comment on above: Performed By: #### C BC #### [facility] [address] [place] [address] Dr. Ronnie Pennington Monocytes/100 WBC (Bld) 7.5 % Normal 1.7-12.0 [facility] Comment on above: Performed By: #### C BC #### [facility] [address] [place] [address] Dr. Ronnie Pennington NEUT # 5.0 103/ul Normal 1.4-6.5 [facility] Comment on above: Performed By: #### C BC #### [facility] [address] [place] [address] Dr. Ronnie Pennington Neutrophils/100 WBC (Bld) 72.3 % Normal 43.0-75.0 [facility] Comment on above: Performed By: #### C BC #### [facility] [address] [place] [address] Dr. Ronnie Pennington Platelet mean volume (Bld) [Entitic vol] 11.8 fL Normal 9.5-13.5 [facility] Comment on above: Performed By: #### C BC #### [facility] [address] [place] [address] Dr. Ronnie Pennington PLT 126 103/ul Critically low 150-450 [facility] Comment on above: Performed By: #### C BC #### [facility] [address] [place] [address] Dr. Ronnie Pennington RBC 3.65 106/ul Critically low 4.70-6.10 [facility] Comment on above: Performed By: #### C BC #### [facility] [address] [address] [address] Ronnie Pennington WBC 6.9 103/ul Normal 4.0-11.0 [facility] Comment on above: Performed By: #### C BC #### [facility] [address] [address] [address] Ronnie Pennington MAGNESIUMon 07-13-2022 Magnesium [Mass/Vol] 2.1 mg/dL Normal 1.8-2.4 [facility] Comment on above: Performed By: #### C MP, MG #### [facility] [address] [address] [address] Ronnie Pennington Office Visit (Cardiology)on 07-13-2022 Follow-up visit Patient Instructions -Please bring a list of your medications to every appointment. -We will schedule you a follow up appointment in # months. We will call you with this date. -If you have any questions, please do not hesitate to contact our office at [phone]. For after hours issues, please call [phone]. Chief Complaint OLIVERIO ESCOBEDO is being seen [...] September 2021. He continues to live in long-term. He has started Zoloft for depression. He [...] TabletTake 1 tablet twice daily MiraLax Mix-In Crawford 17 GM Oral PacketMIX 1 PACKET in [...] Albumin [Mass/Vol] 2.9 g/dL Critically low 3.4-5.0 [facility] Comment on above: Performed By: #### C MP, MG #### [facility] [address] [place] [address] Dr. Ronnie Pennington Albumin/Globulin [Mass ratio] 0.7 {ratio} Normal [facility] Comment on above: Performed By: #### C MP, MG #### [facility] [address] [place] [address] Dr. Ronnie Pennington ALP [Catalytic activity/Vol] 71 U/L Normal 46-116 [facility] Comment on above: Performed By: #### C MP, MG #### [facility] [address] [place] [address] Dr. Ronnie Pennington ALT [Catalytic activity/Vol] 12 U/L Critically low 16-63 [facility] Comment on above: Performed By: #### C MP, MG #### [facility] [address] [place] [address] Dr. Ronnie Pennington Anion gap [Moles/Vol] 15.1 mmol/L Normal [facility] Comment on above: Performed By: #### C MP, MG #### [facility] [address] [place] [address] Dr. Ronnie Pennington AST [Catalytic activity/Vol] 11 U/L Critically low 15-37 [facility] Comment on above: Performed By: #### C MP, MG #### [facility] [address] [place] [address] Dr. Ronnie Pennington Bilirubin [Mass/Vol] 0.2 mg/dL Normal 0.2-1.0 [facility] Comment on above: Performed By: #### C MP, MG #### [facility] [address] [place] [address] Dr. Ronnie Pennington Calcium [Mass/Vol] 9.2 mg/dL Normal 8.5-10.1 [facility] Comment on above: Performed By: #### C MP, MG #### [facility] [address] [place] [address] Dr. Ronnie Pennington Chloride [Moles/Vol] 105 mmol/L Normal 98-107 [facility] Comment on above: Performed By: #### C MP, MG #### [facility] [address] [place] [address] Dr. Ronnie Pennington CO2 [Moles/Vol] 28.1 mmol/L Normal 21.0-32.0 [facility] Comment on above: Performed By: #### C MP, MG #### [facility] [address] [place] [address] Dr. Ronnie Pennington Creatinine [Mass/Vol] 2.14 mg/dL Critically high 0.70-1.30 [facility] Comment on above: Performed By: #### C MP, MG #### [facility] [address] [place] [address] Dr. Ronnie Pennington EGFR-AF GREEK 36 mL/min/1.73m2 Critically low >=60 [facility] Comment on above: Performed By: #### C MP, MG #### [facility] [address] [place] [address] Dr. Ronnie Pennington EGFR-NON AF GREEK 30 mL/min/1.73m2 Critically low >=60 [facility] Comment on above: Performed By: #### C MP, MG #### [facility] [address] [place] [address] Dr. Ronnie Pennington Globulin (S) [Mass/Vol] 4.0 g/dL Normal [facility] Comment on above: Performed By: #### C MP, MG #### [facility] [address] [place] [address] Dr. Ronnie Pennington Glucose [Mass/Vol] 150 mg/dL Critically high 74-106 [facility] Comment on above: Performed By: #### C MP, MG #### [facility] [address] [place] [address] Dr. Ronnie Pennington Potassium [Moles/Vol] 4.2 mmol/L Normal 3.5-5.1 [facility] Comment on above: Performed By: #### C MP, MG #### [facility] [address] [address] [address] Ronnie Pennington Protein [Mass/Vol] 6.9 g/dL Normal 6.4-8.2 [facility] Comment on above: Performed By: #### C MP, MG #### [facility] [address] [address] [address] Ronnie Pennington Sodium [Moles/Vol] 144 mmol/L Normal 136-145 [facility] Comment on above: Performed By: #### C MP, MG #### [facility] [address] [address] [address] Ronnie Pennington Urea nitrogen [Mass/Vol] 32.0 mg/dL Critically high 7.0-18.0 [facility] Comment on above: Performed By: #### C MP, MG #### [facility] [address] [address] [address] Ronnie Pennington Urea nitrogen/Creatinine [Mass ratio] 15.0 mg/mg Normal [facility] Comment on above: Performed By: #### C MP, MG #### [facility] [address] [address] [address] Ronnie Pennington Transplant SW Assessment Upd [...] Jul 15 2022 12:57PM EST (Author) Normal [facility] Consultation Noteon 06-10-19 Consultation Note [id number] Normal [facility] TSHon 06-05-2022 TSH 3.293 uIU/mL Normal 0.358-3.74 0 [facility] Comment on above: Performed By: #### T SH #### [facility] [address] [address] [address] Ronnie Pennington Cult,Woundon 04-19-2022 Cult,Wound Specimen [...] Tetracycline <=1 SUSCEPTIBLE Trimethoprim/Sulfa <=10 SUSCEPTIBLE Susceptible [facility] Comment on above: Performed By: #### W MO #### [facility] [address] [place] [address] Hose Coupling Joiner: David Gonzalez MD PROF CHEM 8 ([facility]on Anion gap [Moles/Vol] 14.9 mmol/L Normal [facility] Comment on above: Performed By: #### B MP #### [facility] [address] [address] [address] Ronnie Pennington Calcium [Mass/Vol] 8.8 mg/dL Normal 8.5-10.1 [facility] Comment on above: Performed By: #### B MP #### [facility] [address] [address] [address] Ronnie Pennington Chloride [Moles/Vol] 104 mmol/L Normal 98-107 [facility] Comment on above: Performed By: #### B MP #### [facility] [address] [address] [address] Ronnie Pennington CO2 [Moles/Vol] 26.6 mmol/L Normal 21.0-32.0 [facility] Comment on above: Performed By: #### B MP #### [facility] [address] [address] [address] Ronnie Pennington Creatinine [Mass/Vol] 2.03 mg/dL Critically high 0.70-1.30 [facility] Comment on above: Performed By: #### B MP #### [facility] [address] [address] [address] Ronnie Pennington EGFR-AF GREEK 39 mL/min/1.73m2 Critically low >=60 [facility] Comment on above: Performed By: #### B MP #### [facility] [address] [address] [address] Ronnie Pennington EGFR-NON AF GREEK 32 mL/min/1.73m2 Critically low >=60 [facility] Comment on above: Performed By: #### B MP #### [facility] [address] [address] [address] Ronnie Pennington Glucose [Mass/Vol] 209 mg/dL Critically high 74-106 [facility] Comment on above: Performed By: #### B MP #### [facility] [address] [address] [address] Ronnie Pennington Potassium [Moles/Vol] 4.5 mmol/L Normal 3.5-5.1 [facility] Comment on above: Performed By: #### B MP #### [facility] [address] [address] [address] Ronnie Pennington Sodium [Moles/Vol] 141 mmol/L Normal 136-145 [facility] Comment on above: Performed By: #### B MP #### [facility] [address] [address] [address] Rnonie Pennington Urea nitrogen [Mass/Vol] 26.0 mg/dL Critically high 7.0-18.0 [facility] Comment on above: Performed By: #### B MP #### [facility] [address] [address] [address] Ronnie Pennington Urea nitrogen/Creatinine [Mass ratio] 12.8 mg/mg Normal [facility] Comment on above: Performed By: #### B MP #### [facility] [address] [address] [address] Ronnie Pennington Office Visit (Cardiology)on 10-15-2021 [...] JARON NESS Date: 2021-08-05 15:10 Normal [facility] CBC AND DIFFERENTIALon 07-13 % AUTOMATED IMMATURE GRAN 0.5 % Normal 0.0 - 0.9 [facility] Comment on above: Result Comment: Christal ture Granulocyte Count (IG) includes promyelocytes, myelocytes and metamyelocytes but does not include bands. Percent differential counts (%) should be interpreted in the context of the absolute cell counts (cells/L). Performed By: #### C BCDF #### [address] [address] Basophils (Bld) [#/Vol] 0.02 10*3/uL Normal 0.00 - 0.10 [facility] Comment on above: Performed By: #### C BCDF #### [address] [address] Basophils/100 WBC (Bld) 0.3 % Normal 0.0 - 2.0 [facility] Comment on above: Performed By: #### C BCDF #### [address] [address] Eosinophils (Bld) [#/Vol] 0.07 10*3/uL Normal 0.00 - 0.40 [facility] Comment on above: Performed By: #### C BCDF #### [address] [address] Eosinophils/100 WBC (Bld) 0.9 % Normal 0.0 - 6.0 [facility] Comment on above: Performed By: #### C BCDF #### [address] [address] Erythrocyte distribution width (RBC) [Ratio] 14.4 % Normal 11.5 - 14.5 [facility] Comment on above: Performed By: #### C BCDF #### [address] [address] Hematocrit (Bld) [Volume fraction] 35.5 % Low 41.0 - 52.0 [facility] Comment on above: Performed By: #### C BCDF #### [address] [address] Hemoglobin (Bld) [Mass/Vol] 10.8 g/dL Low 13.5 - 17.5 [facility] Comment on above: Performed By: #### C BCDF #### [address] [address] Lymphocytes (Bld) [#/Vol] 0.42 10*3/uL Low 0.80 - 3.00 [facility] Comment on above: Performed By: #### C BCDF #### [address] [address] Lymphocytes/100 WBC (Bld) 5.6 % Normal 13.0 - 44.0 [facility] Comment on above: Performed By: #### C BCDF #### [address] [address] MCHC (RBC) [Mass/Vol] 30.4 g/dL Low 32.0 - 36.0 [facility] Comment on above: Performed By: #### C BCDF #### [address] [address] MCV (RBC) [Entitic vol] 89 fL Normal 80 - 100 [facility] Comment on above: Performed By: #### C BCDF #### [address] [address] Monocytes (Bld) [#/Vol] 0.07 10*3/uL Normal 0.05 - 0.80 [facility] Comment on above: Performed By: #### C BCDF #### [address] [address] Monocytes/100 WBC (Bld) 0.9 % Normal 2.0 - 10.0 [facility] Comment on above: Performed By: #### C BCDF #### [address] [place] [address] Neutrophils (Bld) [#/Vol] 6.82 10*3/uL High 1.60 - 5.50 [facility] Comment on above: Performed By: #### C BCDF #### [address] [address] Neutrophils/100 WBC (Bld) 91.8 % Normal 40.0 - 80.0 [facility] Comment on above: Performed By: #### C BCDF #### [address] [address] NUCLEATED RBC 0.0 /100 WBC Normal 0.0 - 0.0 [facility] Comment on above: Performed By: #### C BCDF #### [address] [address] Platelets (Bld) [#/Vol] 161 10*3/uL Normal 150 - 450 [facility] Comment on above: Performed By: #### C BCDF #### [address] [address] RBC 3.98 x10E12/L Low 4.50 - 5.90 [facility] Comment on above: Performed By: #### C BCDF #### [address] [address] WBC (Bld) [#/Vol] 7.4 10*3/uL Normal 4.4 - 11.3 [facility] Comment on above: Performed By: #### C BCDF #### [address] [address] Complete Blood Count + Diffe rentialon 07-13-2021 Basophils/100 WBC (Bld) 0.3 % 0.0 - 2.0 [facility] [address] [place] Work Phone: Erythrocyte distribution width (RBC) [Ratio] 14.4 % See Below [facility] [employer] [address] [place] Work Phone: Comment on above: Reference Range: 11. 5 - 14.5 Hematocrit (Bld) [Volume fraction] 35.5 % below low threshold See Below [facility] [address] [place] Work Phone: Comment on [...] % 2.0 - 10.0 [facility] [address] [place] Work Phone: Neutrophils/100 WBC (Bld) 91.8 % See Below [facility] [address] [place] Work Phone: Comment on above: Reference Range: 40. 0 - 80.0 Platelets (Bld) [#/Vol] 161 10*3/uL 150 - 450 [facility] [address] [place] Work Phone: RBC (Bld) [#/Vol] 3.98 {x10E12/L} below low threshold See Below [facility] [address] [place] Work Phone: Comment on above: Reference Range: 4.5 0 - 5.90 WBC (Bld) [#/Vol] 7.4 10*3/uL 4.4 - 11.3 [facility] [address] [place] Work Phone: Complete Blood Count + Differential 0.02 {x10E9/L} See Below [facility] [address] [place] Work Phone: Comment on above: Reference Range: 0.0 0 - 0.10 Complete Blood Count + Differential 0.07 {x10E9/L} See Below [facility] [address] [place] Work Phone: Comment on above: Reference Range: 0.0 0 - 0.40 Reference Range: 0.0 5 - 0.80 Complete Blood Count + Differential 0.42 {x10E9/L} below low threshold See Below [facility] [address] [place] Work Phone: Comment on above: Reference Range: 0.8 0 - 3.00 Complete Blood Count + Differential 6.82 {x10E9/L} above high threshold See Below [facility] [employer] [address] [place] Work Phone: Comment on above: Reference Range: 1.6 0 - 5.50 Complete Blood Count + Differential 0.9 % 0.0 - 6.0 [facility] [employer] [address] [place] Work Phone: Complete Blood Count + Differential 0.5 % 0.0 - 0.9 [facility] [employer] [place] Work Phone: Comment on above: Immature Granulocyte Count (IG) includes promyelocytes, myelocytes and metamyelocytes but does not include bands. Percent differential counts (%) should be interpreted in the context of the absolute cell counts (cells/L). Complete Blood Count + Differential 0.0 {/100_WBC} 0.0 - 0.0 [facility] [address] [place] Work Phone: Coronavirus 2019 RNA [...] Authorization (EUA) and has been verified by [facility] ([facility]). This test is only authorized for the duration of time that circumstances exist to justify the authorization of the emergency use of in vitro diagnostic tests for the detection of SARS-CoV-2 virus and/or diagnosis of COVID-19 infection under section 564(b)(1) of the Act, 21 U.S.C. 360bbb-3(b)(1), unless the authorization is terminated or revoked sooner. [facility] is certified under CLIA-88 as qualified to perform high complexity testing. Testing is performed in the [facility] located at [address] [place] [address].SARS-CoV-2/Flu/RSV Multiplex Test: Fact sheet for providers: https://www.fda.gov/media/123511/downloadFact sheet for patients: https://www.fda.gov/media/155295/download Laboratory - Chemistry and C hemistry - challengeon 07-03-2021 Glucose [Mass/Vol] 330 mg/dL above high threshold 74 - 99 [facility] [address] [place] Work Phone: Glucose [Mass/Vol] 277 mg/dL above high threshold 74 - 99 [facility] [address] [place] Work Phone: Anion gap [Moles/Vol] 15 mmol/L 10 - 20 [facility] [address] [place] Work Phone: Calcium [Mass/Vol] [...] high threshold 74 - 99 [facility] [address] [place] Work Phone: Potassium [Moles/Vol] 3.9 mmol/L 3.5 - 5.3 [facility] [address] [place] Work Phone: [phone] Sodium [Moles/Vol] 138 mmol/L 136 - 145 [facility] [address] [place] Work Phone: [phone] Urea nitrogen [Mass/Vol] 35 mg/dL above high threshold 6 - 23 [facility] [address] [place] Work Phone: Laboratory - Hematology and Cell countson 07-03-2021 Erythrocyte distribution width (RBC) [Ratio] 13.7 % See Below [facility] [address] [place] Work Phone: Comment on [...] below low threshold See Below [facility] [address] [place] Work Phone: Comment on above: Reference Range: 32. 0 - 36.0 MCV (RBC) [Entitic vol] 89 fL 80 - 100 [facility] [address] [place] Work Phone: Platelets (Bld) [#/Vol] 171 10*3/uL 150 - 450 [facility] [address] [place] Work Phone: RBC (Bld) [#/Vol] 3.94 {x10E12/L} below low threshold See Below [facility] [address] [place] Work Phone: Comment on above: Reference Range: 4.5 0 - 5.90 WBC (Bld) [#/Vol] 6.0 10*3/uL 4.4 - 11.3 [facility] [address] [place] Work Phone: No Panel Informationon 07-03 38 {mL/min/1.73m2} Abnormal >90 [facility] [address] [place] Work Phone: Comment on above: CALCULATIONS OF ERNST MATED GFR ARE PERFORMED USING THE 2020 CKD-EPI STUDY REFIT EQUATION WITHOUT THE RACE VARIABLE FOR THE IDMS-TRACEABLE CREATININE METHODS.https://jasn.asnjournals.org/content/early// ASN.1312614889 0.0 {/100_WBC} 0.0-0.0 [facility] [address] [place] Work Phone: Tacrolimuson 07-03-2021 Tacrolimus (Bld) [Mass/Vol] 5.5 ng/mL 2.0 - 15.0 [facility] [address] [place] Work Phone: Comment on above: NOTE: Result was obt ained using a chemiluminescent microparticle immunoassay (CMIA) on the [employer] i system.Optimal therapeutic ranges for immuno-suppressant drugs [...] high threshold 74 - 99 [facility] [address] [place] Work Phone: [phone] Glucose [Mass/Vol] 269 mg/dL above high threshold 74 - 99 [facility] [address] [place] Work Phone: [phone] Anion gap [Moles/Vol] 15 mmol/L 10 - 20 [facility] [address] [place] Work Phone: [phone] Calcium [Mass/Vol] 9.1 mg/dL 8.6 - 10.6 [facility] [address] [place] Work Phone: [phone] Chloride [Moles/Vol] 102 mmol/L 98 - 107 [facility] [address] [place] Work Phone: [phone] CO2 [Moles/Vol] 27 mmol/L 21 - 32 [facility] [address] [place] Work Phone: [phone] Creatinine [Mass/Vol] 1.97 mg/dL above high threshold See Below [facility] [address] [place] Work Phone: Comment on [...] [facility] [address] [place] Work Phone: [phone] Urea nitrogen [Mass/Vol] 41 mg/dL above high threshold 6 - 23 [facility] [address] [place] Work Phone: [phone] Glucose [Mass/Vol] 201 mg/dL above high threshold 74 - 99 [facility] [address] [place] Work Phone: Laboratory - Hematology and Cell countson 07-02-2021 Erythrocyte distribution width (RBC) [Ratio] 14.1 % See Below [facility] [address] [place] Work Phone: [phone] Comment on above: Reference Range: 11. 5 [...] fL 80 - 100 [facility] [address] [place] Work Phone: Platelets (Bld) [#/Vol] 160 10*3/uL 150 - 450 [facility] [address] [place] Work Phone: RBC (Bld) [#/Vol] 3.82 {x10E12/L} below low threshold See Below [facility] [address] [place] Work Phone: Comment on above: Reference Range: 4.5 0 - 5.90 WBC (Bld) [#/Vol] 6.8 10*3/uL 4.4 - 11.3 [facility] [address] [place] Work Phone: No Panel Informationon 07-02 34 {mL/min/1.73m2} Abnormal >90 [facility] [address] [place] Work Phone: Comment on above: CALCULATIONS OF ERNST MATED GFR ARE PERFORMED USING THE 2020 CKD-EPI STUDY REFIT EQUATION WITHOUT THE RACE VARIABLE FOR THE IDMS-TRACEABLE CREATININE METHODS.https://jasn.asnjournals.org/content/early// ASN.1336817503 0.0 {/100_WBC} 0.0-0.0 [facility] [address] [place] Work Phone: Tacrolimuson 07-02-2021 Tacrolimus (Bld) [Mass/Vol] 7.6 ng/mL 2.0 - 15.0 [facility] [address] [place] Work Phone: Comment on above: NOTE: Result was obt ained using a chemiluminescent microparticle immunoassay (CMIA) on the [employer] i system.Optimal therapeutic ranges for immuno-suppressant drugs [...] 13-18 <7.5 7-12 <8.0 0- 6 7.5-8.5 [employer]. Diabetes Care 33(S1), Mar 2009. Laboratory - Chemistry and C hemistry - challengeon 07-01-2021 Glucose [Mass/Vol] 188 mg/dL above high threshold 74 - 99 [facility] [address] [place] Work Phone: Glucose [Mass/Vol] 258 mg/dL above high threshold 74 - 99 [facility] [address] [place] Work Phone: Glucose [Mass/Vol] 321 mg/dL above high threshold 74 - 99 [facility] [address] [place] Work Phone: Anion gap [Moles/Vol] 16 mmol/L 10 - 20 [facility] [address] [place] Work Phone: Calcium [Mass/Vol] 8.8 mg/dL 8.6 - 10.6 [facility] [address] [place] Work Phone: Chloride [Moles/Vol] 100 mmol/L 98 - 107 [facility] [address] [place] Work Phone: CO2 [Moles/Vol] 29 mmol/L 21 - 32 [facility] [address] [place] Work Phone: Creatinine [Mass/Vol] [...] mmol/L 3.5 - 5.3 [facility] [address] [place] Work Phone: Sodium [Moles/Vol] 141 mmol/L 136 - 145 [facility] [address] [place] Work Phone: Urea nitrogen [Mass/Vol] 38 mg/dL above high threshold 6 - 23 [facility] [address] [place] Work Phone: Laboratory - Hematology and Cell countson 07-01-2021 Erythrocyte distribution width (RBC) [Ratio] 14.1 % See Below [facility] [address] [place] Work Phone: Comment on above: Reference Range: 11. 5 - 14.5 Hematocrit (Bld) [Volume fraction] 34.6 % below low threshold See Below [facility] [address] [place] Work Phone: Comment on above: Reference Range: 41. 0 - 52.0 Hemoglobin (Bld) [Mass/Vol] 10.7 g/dL below low threshold See Below [facility] [address] [place] Work Phone: Comment on [...] 157 10*3/uL 150 - 450 [facility] [address] [place] Work Phone: RBC (Bld) [#/Vol] 3.83 {x10E12/L} below low threshold See Below [facility] [address] [place] Work Phone: Comment on above: Reference Range: 4.5 0 - 5.90 WBC (Bld) [#/Vol] 6.8 10*3/uL 4.4 - 11.3 [facility] [address] [place] Work Phone: No Panel Informationon 07-01 34 {mL/min/1.73m2} Abnormal >90 [facility] [address] [place] Work Phone: Comment on above: CALCULATIONS OF ERNST MATED GFR ARE PERFORMED USING THE 2020 CKD-EPI STUDY REFIT EQUATION WITHOUT THE RACE VARIABLE FOR THE IDMS-TRACEABLE CREATININE METHODS.https://jasn.asnjournals.org/content// ASN.2486060228 0.0 {/100_WBC} 0.0-0.0 [facility] [address] [place] Work Phone: Tacrolimuson 07-01-2021 Tacrolimus (Bld) [Mass/Vol] 9.3 ng/mL 2.0 - 15.0 [facility] [address] [place] Work Phone: Comment on above: NOTE: Result was obt ained using a chemiluminescent microparticle immunoassay (CMIA) on the [employer] i system.Optimal therapeutic ranges for immuno-suppressant drugs [...] high threshold 74 - 99 [facility] [address] [place] Work Phone: [phone] Glucose [Mass/Vol] 267 mg/dL above high threshold 74 - 99 [facility] [address] [place] Work Phone: [phone] Glucose [Mass/Vol] 289 mg/dL above high threshold 74 - 99 [facility] [address] [place] Work Phone: [phone] Glucose [Mass/Vol] 236 mg/dL above high threshold 74 - 99 [facility] [address] [place] Work Phone: [phone] Anion gap [Moles/Vol] 17 mmol/L 10 - 20 [facility] [address] [place] Work Phone: [phone] Calcium [Mass/Vol] 8.6 mg/dL 8.6 - 10.6 [facility] [address] [place] Work Phone: [phone] Chloride [Moles/Vol] 100 mmol/L 98 - 107 [facility] [address] [place] Work Phone: [phone] CO2 [Moles/Vol] 28 mmol/L 21 - 32 [facility] [address] [place] Work Phone: [phone] Creatinine [Mass/Vol] 2.26 mg/dL above high threshold See Below [facility] [address] [place] Work Phone: [phone] Comment on above: Reference Range: 0.5 0 - 1.30 Glucose [Mass/Vol] 205 mg/dL above high threshold 74 - 99 [facility] [address] [place] Work Phone: [phone] Potassium [Moles/Vol] 3.8 mmol/L 3.5 - 5.3 [facility] [address] [place] Work Phone: Sodium [Moles/Vol] [...] See Below [facility] [address] [place] Work Phone: Comment on above: Reference Range: 41. 0 - 52.0 Hemoglobin (Bld) [Mass/Vol] 10.5 g/dL below low threshold See Below [facility] [address] [place] Work Phone: Comment on above: Reference Range: 13. 5 - 17.5 MCHC (RBC) [Mass/Vol] 31.3 g/dL below low threshold See Below [facility] [address] [place] Work Phone: Comment on above: Reference Range: 32. 0 - 36.0 MCV (RBC) [Entitic vol] 91 fL 80 - 100 [facility] [address] [place] Work Phone: Platelets (Bld) [#/Vol] 141 10*3/uL below lo w threshold 150 - 450 [facility] [address] [place] Work Phone: RBC (Bld) [#/Vol] 3.70 {x10E12/L} below low threshold See Below [facility] [address] [place] Work Phone: Comment on above: Reference Range: 4.5 0 - 5.90 WBC (Bld) [#/Vol] 8.2 10*3/uL 4.4 - 11.3 [facility] [address] [place] Work Phone: No Panel Informationon 06-30 29 {mL/min/1.73m2} Abnormal >90 [facility] [address] [place] Work Phone: Comment on above: CALCULATIONS OF ERNST MATED GFR ARE PERFORMED USING THE 2020 CKD-EPI STUDY REFIT EQUATION WITHOUT THE RACE VARIABLE FOR THE IDMS-TRACEABLE CREATININE METHODS.https://jasn.asnjournals.org/content/early/ ASN.8368402761 0.0 {/100_WBC} 0.0-0.0 [facility] [address] [place] Work Phone: Tacrolimuson 06-30-2021 Tacrolimus (Bld) [Mass/Vol] 7.7 ng/mL 2.0 - 15.0 [facility] [address] [place] Work Phone: Comment on above: NOTE: Result was obt ained using a chemiluminescent microparticle immunoassay (CMIA) on the [employer] i system.Optimal therapeutic ranges for immuno-suppressant drugs depend upon an individualpatient's current clinical state, type oforgan transplant, time post-transplant,co-administration of other immunosuppressants,and other clinical factors. The results ofthis test should be correlated with additionalclinical and laboratory data before changesin treatment regimens are made. [facility] Venous Duplex Ultra sound for DVTon 06-30-2021 [facility] Venous Duplex Ultrasound for DVT [facility] [address] [place] Work Phone: Laboratory - Chemistry and C hemistry - challengeon 06-29-2021 Glucose [Mass/Vol] 252 mg/dL above high threshold 74 - 99 [facility] [address] [place] Work Phone: Glucose [Mass/Vol] 225 mg/dL above high threshold 74 - 99 [facility] [address] [place] Work Phone: [phone] Glucose [Mass/Vol] 283 mg/dL above high threshold 74 - 99 [facility] [address] [place] Work Phone: [phone] Anion gap [Moles/Vol] 16 mmol/L 10 - 20 [facility] [address] [place] Work Phone: [phone] Calcium [Mass/Vol] 8.7 mg/dL 8.6 - 10.6 [facility] [address] [place] Work Phone: [phone] Chloride [Moles/Vol] 104 mmol/L 98 - 107 [facility] [address] [place] Work Phone: [phone] CO2 [Moles/Vol] 28 mmol/L 21 - 32 [facility] [address] [place] Work Phone: [phone] Creatinine [Mass/Vol] 1.97 mg/dL above high threshold See Below [facility] [address] [place] Work Phone: [phone] Comment on above: Reference Range: 0.5 0 - 1.30 Glucose [Mass/Vol] 185 mg/dL above high threshold 74 - 99 [facility] [address] [place] Work Phone: [phone] Potassium [Moles/Vol] 3.9 mmol/L 3.5 - 5.3 [facility] [address] [place] Work Phone: [phone] Sodium [Moles/Vol] 144 mmol/L 136 - 145 [facility] [address] [place] Work Phone: [phone] Urea nitrogen [Mass/Vol] 35 mg/dL above high threshold 6 - 23 [facility] [address] [place] Work Phone: [phone] [...] below low threshold See Below [facility] [address] [place] Work Phone: Comment on above: Reference Range: 41. 0 - 52.0 Hemoglobin (Bld) [Mass/Vol] 11.0 g/dL below low threshold See Below [facility] [address] [place] Work Phone: Comment on [...] 1.80 mg/dL See Below [facility] [address] [place] Work Phone: Comment on above: Reference Range: 1.6 0 - 2.40 No Panel Informationon 06-29 34 {mL/min/1.73m2} Abnormal >90 [facility] [address] [place] Work Phone: Comment on above: CALCULATIONS OF ERNST MATED GFR ARE PERFORMED USING THE 2020 CKD-EPI STUDY REFIT EQUATION WITHOUT THE RACE VARIABLE FOR THE IDMS-TRACEABLE CREATININE METHODS.https://jasn.asnjournals.org/content/early// ASN.5104643471 0.0 {/100_WBC} 0.0-0.0 [facility] [address] [place] Work Phone: Tacrolimuson 06-29-2021 Tacrolimus (Bld) [Mass/Vol] 8.4 ng/mL 2.0 - 15.0 [facility] [address] [place] Work Phone: Comment on above: NOTE: Result was obt ained using a chemiluminescent microparticle immunoassay (CMIA) on the [employer] i system.Optimal therapeutic ranges for immuno-suppressant drugs [...] high threshold 74 - 99 [facility] [address] [place] Work Phone: Glucose [Mass/Vol] 215 mg/dL above high threshold 74 - 99 [facility] [address] [place] Work Phone: Anion gap [Moles/Vol] 14 mmol/L 10 - 20 [facility] [address] [place] Work Phone: Calcium [Mass/Vol] 8.5 mg/dL below low threshold 8.6 - 10.6 [facility] [address] [place] Work Phone: Chloride [Moles/Vol] 105 mmol/L 98 - 107 [facility] [address] [place] Work Phone: [phone] CO2 [Moles/Vol] 29 mmol/L 21 - 32 [facility] [address] [place] Work Phone: [phone] Creatinine [Mass/Vol] 1.96 mg/dL above high threshold See Below [facility] [address] [place] Work Phone: Comment on above: Reference Range: 0.5 0 - 1.30 Glucose [Mass/Vol] 159 mg/dL above high threshold 74 - 99 [facility] [address] [place] Work Phone: [phone] Potassium [Moles/Vol] 3.8 mmol/L 3.5 - 5.3 [facility] [address] [place] Work Phone: [phone] Sodium [Moles/Vol] 144 mmol/L 136 - 145 [facility] [address] [place] Work Phone: Urea nitrogen [Mass/Vol] 36 mg/dL above high threshold 6 - 23 [facility] [address] [place] Work Phone: Glucose [Mass/Vol] 159 mg/dL above high threshold 74 - 99 [facility] [address] [place] Work Phone: Laboratory - Hematology and Cell countson 06-28-2021 Erythrocyte distribution width (RBC) [Ratio] 14.3 % See Below [facility] [address] [place] Work Phone: Comment on above: Reference Range: 11. 5 - 14.5 Hematocrit (Bld) [Volume fraction] 33.8 % below low threshold See Below [facility] [address] [place] Work Phone: Comment on above: Reference Range: 41. 0 - 52.0 Hemoglobin (Bld) [Mass/Vol] 10.4 g/dL below low threshold See Below [facility] [address] [place] Work Phone: Comment on above: Reference Range: 13. 5 - 17.5 MCHC (RBC) [Mass/Vol] 30.8 g/dL below low threshold See Below [facility] [address] [place] Work Phone: Comment on above: Reference Range: 32. 0 - 36.0 MCV (RBC) [Entitic vol] 90 fL 80 - 100 [facility] [address] [place] Work Phone: Platelets (Bld) [#/Vol] 133 10*3/uL below lo w threshold 150 - 450 [facility] [address] [place] Work Phone: RBC (Bld) [#/Vol] 3.75 {x10E12/L} below low threshold See Below [facility] [address] [place] Work Phone: Comment on above: Reference Range: 4.5 0 - 5.90 WBC (Bld) [#/Vol] 5.7 10*3/uL 4.4 - 11.3 [facility] [address] [place] Work Phone: Lactate, Levelon 06-28-2021 Lactate [Moles/Vol] 0.6 mmol/L 0.4 - 2.0 [facility] [address] [place] Work Phone: Comment on above: [...] RACE VARIABLE FOR THE IDMS-TRACEABLE CREATININE METHODS.https://jasn.asnjournals.org/content/early/ ASN.3971869546 0.0 {/100_WBC} 0.0-0.0 [facility] [address] [place] Work Phone: Tacrolimuson 06-28-2021 Tacrolimus (Bld) [Mass/Vol] 10.4 ng/mL 2.0 - 15.0 [facility] [address] [place] Work Phone: Comment on above: NOTE: Result was obt ained using a chemiluminescent microparticle immunoassay (CMIA) on the [employer] i system.Optimal therapeutic ranges for immuno-suppressant drugs depend upon an individualpatient's current clinical state, type oforgan transplant, time post-transplant,co-administration of other immunosuppressants,and other clinical factors. The results ofthis test should be correlated with additionalclinical and laboratory data before changesin treatment regimens are made. Complete Blood Count + Diffe rentialon 06-27-2021 Basophils/100 WBC (Bld) 0.5 % 0.0 - 2.0 [facility] [address] [place] Work Phone: Erythrocyte distribution width (RBC) [Ratio] 14.3 % See Below [facility] [address] [place] Work Phone: Comment on above: Reference Range: 11. 5 - 14.5 Hematocrit (Bld) [Volume fraction] 33.6 % below low threshold See Below [facility] [address] [place] Work Phone: Comment on above: Reference Range: 41. 0 - 52.0 Hemoglobin (Bld) [Mass/Vol] 10.3 g/dL below low threshold See Below [facility] [address] [place] Work Phone: Comment on above: Reference Range: 13. 5 - 17.5 Lymphocytes/100 WBC (Bld) 13.1 % See Below [facility] [address] [place] Work Phone: Comment on above: Reference Range: 13. 0 - 44.0 MCHC (RBC) [Mass/Vol] 30.7 g/dL below low threshold See Below [facility] [address] [place] Work Phone: Comment on above: Reference Range: 32. 0 - 36.0 MCV (RBC) [Entitic vol] 92 fL 80 - 100 [facility] [address] [place] Work Phone: Monocytes/100 WBC (Bld) 9.0 % 2.0 - 10.0 [facility] [address] [place] Work Phone: Neutrophils/100 WBC (Bld) 72.5 % See Below [facility] [address] [place] Work Phone: Comment on above: Reference Range: 40. 0 - 80.0 Platelets (Bld) [#/Vol] 137 10*3/uL below lo w threshold 150 - 450 [facility] [address] [place] Work Phone: RBC (Bld) [#/Vol] 3.67 {x10E12/L} below low threshold See Below [facility] [address] [place] Work Phone: Comment on above: Reference Range: 4.5 0 - 5.90 WBC (Bld) [#/Vol] 6.4 10*3/uL 4.4 - 11.3 [facility] [address] [place] Work Phone: Complete Blood Count + Differential 0.03 {x10E9/L} See Below [facility] [address] [place] Work Phone: Comment on above: Reference Range: 0.0 0 - 0.10 Complete Blood Count + Differential 0.28 {x10E9/L} See Below [facility] [address] [place] Work Phone: Comment on above: Reference Range: 0.0 0 - 0.40 Complete Blood Count + Differential 0.57 {x10E9/L} See Below [facility] [address] [place] Work Phone: Comment on above: Reference Range: 0.0 5 - 0.80 Complete Blood Count + Differential 0.83 {x10E9/L} See Below [facility] [address] [place] Work Phone: Comment on above: Reference Range: 0.8 0 - 3.00 Complete Blood Count + Differential 4.61 {x10E9/L} See Below [facility] [address] [place] Work Phone: Comment on above: Reference Range: 1.6 0 - 5.50 Complete Blood Count + Differential 4.4 % 0.0 - 6.0 [facility] [address] [place] Work Phone: Complete Blood Count + Differential 0.5 % 0.0 - 0.9 [facility] [address] [place] Work Phone: Comment on above: [...] Wu on 06-27-2021 Glucose [Mass/Vol] 263 mg/dL [facility] Comment on above: Random Glucose Refer ence Range is dependent on time and content of last meal. Glucose of more than 200 mg/dL in a nonstressed, ambulatory subject supports the diagnosis of Diabetes Mellitus. Laboratory - Chemistry and C hemistry - challengeon 06-27-2021 Albumin BCP dye [Mass/Vol] 3.4 g/dL 3.4 - 5.0 [facility] [address] [place] Work Phone: ALP [Catalytic activity/Vol] 57 U/L 33 - 136 [facility] [address] [place] Work Phone: ALT With P-5'-P [Catalytic activity/Vol] 4 U/L below low threshold 10 - 52 [facility] [address] [place] Work Phone: Comment on above: Patients treated wit h Sulfasalazine may generate falsely decreased results for ALT. Anion gap [Moles/Vol] 18 mmol/L 10 - 20 [facility] [address] [place] Work Phone: AST With P-5'-P [Catalytic activity/Vol] 10 U/L 9 - 39 [facility] [address] [place] Work Phone: Bilirubin [Mass/Vol] 0.3 mg/dL 0.0 - 1.2 [facility] [address] [place] Work Phone: Calcium [Mass/Vol] 8.3 mg/dL below low threshold 8.6 - 10.6 [facility] [address] [place] Work Phone: Chloride [Moles/Vol] 102 mmol/L 98 - 107 [facility] [address] [place] Work Phone: CO2 [Moles/Vol] 26 mmol/L 21 - 32 [facility] [address] [place] Work Phone: Creatinine [Mass/Vol] 1.85 mg/dL above high threshold See Below [facility] [address] [place] Work Phone: Comment on above: Reference Range: 0.5 0 - 1.30 Glucose [Mass/Vol] 177 mg/dL above high threshold 74 - 99 [facility] [address] [place] Work Phone: Potassium [Moles/Vol] [...] high threshold 6 - 23 [facility] [address] [place] Work Phone: Glucose [Mass/Vol] 178 mg/dL above high threshold 74 - 99 [facility] [address] [place] Work Phone: Glucose [Mass/Vol] 213 mg/dL above high threshold 74 - 99 [facility] [address] [place] Work Phone: No Panel Informationon 06-27 37 {mL/min/1.73m2} Abnormal >90 [facility] [address] [place] Work Phone: Comment on above: CALCULATIONS OF ERNST MATED GFR ARE PERFORMED USING THE 2020 CKD-EPI STUDY REFIT EQUATION WITHOUT THE RACE VARIABLE FOR THE IDMS-TRACEABLE CREATININE METHODS.https://jasn.asnjournals.org/content// ASN.8156302550 No Panel InformationOrdered By: Yoshi Wu on 06-27-2021 Bedside Glucose Comment Glu2: cleaned meter [facility] Automated erythrocytes count in urine sediment (number/area)Ordered By: Audra Quinteros on 06-26-2021 RBC Auto (Urine sed) [#/Area] 0-1 [HPF] [facility] Automated leukocytes count i n urine sediment (number/area)Ordered By: Audra Quinteros on 06-26-2021 WBC Auto (Urine sed) [#/Area] 0-1 [HPF] [facility] Bilirubin Test strip Ql (U)O rdered By: Audra Quinteros on 06-26-2021 Bilirubin Ql (U) Negative Negative [facility] COVID-19 Positive/NegativeOr dered By: Omid Myrick on 06-26-2021 SARS-CoV-2 (COVID-19) N gene JOYCE+probe Ql (Resp) Negative Negative [facility] Comment on above: Testing for SARS-CoV -2 by RT-PCRThis test was developed and its performance characteristics determined by [employer] [place] [employer] and validated at the [facility]. This test has not been FDA cleared [...] Quinteros on 06-26-2021 Color (U) Yellow Yellow [facility] Creatinine [Mass/volume] in UrineOrdered By: Audra Quinteros on 06-26-2021 Creatinine (U) [Mass/Vol] 71.5 mg/dL [facility] Comment on above: No reference range e stablished Creatinine and Glomerular fi ltration rate.predicted panel (S/P/Bld)Ordered By: Audra Quinteros on 06-26-2021 Creatinine [Mass/Vol] 1.99 mg/dL 0.64-1.27 [facility] Estimated glomerular filtrat ion rate (GFR) non- AmericanOrdered By: Audra Quinteros on 06-26-2021 GFR/1.73 sq M.predicted among non-blacks MDRD (S/P/Bld) [Vol rate/Area] 33 mL/Min [facility] Ketones Auto test strip (U) [Mass/Vol]Ordered By: Audra Quinteros on 06-26-2021 Ketones (U) [Mass/Vol] Negative Negative [facility] Laboratory - Microbiology an d Antimicrobial susceptibilityOrdered By: Omid Myrick on 06-26-2021 SARS-CoV-2 (COVID-19) RNA JOYCE+probe Ql (Unsp spec) N/A [facility] Laboratory - UrinalysisOrder ed By: Audra Quinteros on 06-26-2021 Hyaline casts LM Ql (Urine sed) 0-8 [LPF] [facility] Nitrite Test strip Ql (U)Ord ered By: Audra Quinteros on 06-26-2021 Nitrite Ql (U) Negative Negative [facility] No Panel InformationOrdered By: Audra Quinteros on 06-26-2021 Estimated GFR () 40 mL/Min [facility] Comment on above: GFR estimated refere nce range: According to KDOQI guidelines, <60 ml/min/1.73m2 is sufficient to diagnose a patient with chronic kidney disease. Pharmacy Creatinine Clearance (Chem 39.80 [facility] Protein Auto test strip (U) [Mass/Vol]Ordered By: Audra Quinteros on 06-26-2021 Protein (U) [Mass/Vol] 300 mg/dL Negative [facility] Serum or plasma calcium abhijit urement (mass/volume)Ordered By: Audra Quinteros on 06-26-2021 Calcium [Mass/Vol] 8.9 mg/dL 8.2-10.2 [facility] Serum or plasma chloride marylin surement (moles/volume)Ordered By: Audra Quinteros on 06-26-2021 Chloride [Moles/Vol] 105 mmol/L 95-114 [facility] Serum or plasma glucose abhijit urement (mass/volume)Ordered By: Audra Quinteros on 06-26-2021 Glucose [Mass/Vol] 194 mg/dL 70-100 [facility] Comment on above: ADA recommended refe rence rangeRandom Glucose Reference Range is dependent on time and content of last meal. Glucose of more than 200 mg/dL in a nonstressed, ambulatory subject supports the diagnosis of Diabetes Mellitus. Serum or plasma potassium me asurement (moles/volume)Ordered By: Omid Myrick on 06-26-2021 Potassium [Moles/Vol] 4.0 mmol/L 3.5-5.1 [facility] Serum or plasma sodium measu rement (moles/volume)Ordered By: Audra Quinteros on 06-26-2021 Sodium [Moles/Vol] 140 mmol/L 136-146 [facility] Serum or plasma total carbon dioxide measurement (moles/volume)Ordered By: Audra Quinteros on 06-26-2021 CO2 [Moles/Vol] 23.8 mmol/L 22.0-30.0 [facility] Serum or plasma urea nitroge n measurement (mass/volume)Ordered By: Audra Quinteros on 06-26-2021 Urea nitrogen [Mass/Vol] 39 mg/dL 9-23 [facility] Specific gravity Auto test s trip (U) [Rel density]Ordered By: Audra Quinteros on 06-26-2021 Specific gravity (U) [Rel density] 1.015 1.001-1.03 0 [facility] Squamous epithelial cells de tection in urine sediment by light microscopyOrdered By: Audra Quinteros on 06-26-2021 Epithelial cells.squamous LM Ql (Urine sed) None seen [HPF] [facility] Urine bacteria detection by automated methodOrdered By: Audra Quinteros on 06-26-2021 Bacteria Auto Ql (U) None seen None Seen [facility] Urine clarity by refractomet ry automatedOrdered By: Audra Quinteros on 06-26-2021 Clarity Refractometry automated (U) Clear Clear [facility] Urine glucose measurement by automated test strip (mass/volume)Ordered By: Audra Quinteros on 06-26-2021 Glucose Auto test strip (U) [Mass/Vol] Normal mg/dL Normal [facility] Urine hemoglobin detection b y automated test stripOrdered By: Audra Quinteros on 06-26-2021 Hemoglobin Auto test strip Ql (U) Negative Negative [facility] Urine leukocyte esterase det ection by automated test stripOrdered By: Audra Quinteros on 06-26-2021 Leukocyte esterase Auto test strip Ql (U) Negative Negative [facility] Urine sodium measurement (mo les/volume)Ordered By: Audra Quinteros on 06-26-2021 Sodium (U) [Moles/Vol] 94 mmol/L [facility] Comment on above: No reference range e stablished Urobilinogen Auto test strip (U) [Mass/Vol]Ordered By: Audra Quinteros on 06-26-2021 Urobilinogen (U) [Mass/Vol] Normal mg/dL Normal [facility] pH Auto test strip (U)Ordere d By: Audra Quinteros on 06-26-2021 pH (U) 5.5 [pH] 5.0-9.0 [facility] Activated partial thrombopla stin time (aPTT) in platelet poor plasma by coagulation aOrdered By: Andrew Hernández on 06-25-2021 aPTT Coag (PPP) [Time] 33.4 s 25.1-36.5 [facility] Albumin [Mass/volume] in Ser um or PlasmaOrdered By: Andrew Hernández on 06-25-2021 Albumin [Mass/Vol] 3.4 g/dL 3.2-5.5 [facility] Basophils Auto (Bld) [#/Vol] Ordered By: Andrew Hernández on 06-25-2021 Basophils (Bld) [#/Vol] 0.0 10*3/uL 0.0-0.2 [facility] Basophils/100 WBC Auto (Bld) Ordered By: Andrew Hernández on 06-25-2021 Basophils/100 WBC (Bld) 0.6 % [facility] Blood hemoglobin measurement (mass/volume)Ordered By: Andrew Hernández on 06-25-2021 Hemoglobin (Bld) [Mass/Vol] 11.8 g/dL 13.0-17.0 [facility] Blood leukocytes automated c ount (number/volume)Ordered By: Andrew Hernández on 06-25-2021 WBC (Bld) [#/Vol] 7.5 10*3/uL 4.5-11.0 [facility] COVID-19 SOFIAOrdered By: Prasanna Hernández on 06-25-2021 SARS-CoV+SARS-CoV-2 (COVID-19) Ag IA.rapid Ql (Resp) Negative Negative [facility] Comment on above: This is a duplicate Jessi SARS Antigen (GABI) result to be used for statistical tracking purpose only. Creatinine and Glomerular fi ltration rate.predicted panel (S/P/Bld)Ordered By: Andrew Hernández on 06-25-2021 Creatinine [Mass/Vol] 2.25 mg/dL 0.64-1.27 [facility] Eosinophils Auto (Bld) [#/Vo l]Ordered By: nAdrew Hernández on 06-25-2021 Eosinophils (Bld) [#/Vol] 0.3 10*3/uL 0.0-0.45 [facility] Eosinophils/100 WBC Auto (Bl d)Ordered By: Andrew Hernández on 06-25-2021 Eosinophils/100 WBC (Bld) 4.6 % [facility] Erythrocyte distribution wid th Auto (RBC) [Ratio]Ordered By: Andrew Hernández on 06-25-2021 Erythrocyte distribution width (RBC) [Ratio] 16.1 % 12.0-14.8 [facility] Erythrocyte sedimentation ra te by Photometric methodOrdered By: Andrew Hernández on 06-25-2021 ESR Photometric method (Bld) [Velocity] 39 mm/hr 0-19 [facility] Estimated glomerular filtrat ion rate (GFR) non- AmericanOrdered By: Andrew Hernández on 06-25-2021 GFR/1.73 sq M.predicted among non-blacks MDRD (S/P/Bld) [Vol rate/Area] 28 mL/Min [facility] Globulin Calc (S) [Mass/Vol] Ordered By: Andrew Hernández on 06-25-2021 Globulin (S) [Mass/Vol] 3.2 g/dL [facility] Hematocrit Auto (Bld) [Volum e fraction]Ordered By: Andrew Hernández on 06-25-2021 Hematocrit (Bld) [Volume fraction] 36.2 % 38.8-50.0 [facility] Laboratory - Chemistry and C hemistry - challengeOrdered By: Andrew Hernández on 06-25-2021 Natriuretic peptide B (Bld) [Mass/Vol] 165.0 pg/mL 5-100 [facility] Laboratory - CoagulationOrde red By: Andrew Hernández on 06-25-2021 PT Coag (PPP) [Time] 11.9 s 9.0-12.9 [facility] Laboratory - Hematology and Cell countsOrdered By: Andrew Hernández on 06-25-2021 Nucleated RBC/100 WBC (Bld) [Ratio] 0.1 % 0-0.5 [facility] Lymphocytes Auto (Bld) [#/Vo l]Ordered By: Andrew Hernández on 06-25-2021 Lymphocytes (Bld) [#/Vol] 1.0 10*3/uL 1.00-4.8 [facility] Lymphocytes/100 WBC Auto (Bl d)Ordered By: Andrew Hernández on 06-25-2021 Lymphocytes/100 WBC (Bld) 12.9 % [facility] MCH Auto (RBC) [Entitic mass ]Ordered By: Andrew Hernández on 06-25-2021 MCH (RBC) [Entitic mass] 28.1 pg 27.5-35.2 [facility] MCHC Auto (RBC) [Mass/Vol]Or dered By: Andrew Hernández on 06-25-2021 MCHC (RBC) [Mass/Vol] 32.7 g/dL 32.5-35.6 [facility] MCV Auto (RBC) [Entitic vol] Ordered By: Andrew Hernández on 06-25-2021 MCV (RBC) [Entitic vol] 86.0 fL 83.5-101 [facility] Monocytes Auto (Bld) [#/Vol] Ordered By: Andrew Hernández on 06-25-2021 Monocytes (Bld) [#/Vol] 0.5 10*3/uL 0.0-0.8 [facility] Monocytes/100 WBC Auto (Bld) Ordered By: Anderw Hernández on 06-25-2021 Monocytes/100 WBC (Bld) 7.3 % [facility] Neutrophils Auto (Bld) [#/Vo l]Ordered By: Andrew Hernández on 06-25-2021 Neutrophils (Bld) [#/Vol] 5.6 10*3/uL 1.8-7.7 [facility] Neutrophils/100 WBC Auto (Bl d)Ordered By: Andrew Hernández on 06-25-2021 Neutrophils/100 WBC (Bld) 74.6 % [facility] No Panel InformationOrdered By: Andrew Hernández on 06-25-2021 SARS Antigen (LFIA) [facility] Estimated GFR () 34 mL/Min [facility] Comment on above: GFR estimated refere nce range: According to KDOQI guidelines, <60 ml/min/1.73m2 is sufficient to diagnose a patient with chronic kidney disease. Pharmacy Creatinine Clearance (Chem 365.00 [facility] Platelet mean volume Auto (B ld) [Entitic vol]Ordered By: Andrew Hernández on 06-25-2021 Platelet mean volume (Bld) [Entitic vol] 10.0 fL 6.6-10.1 [facility] Platelet poor plasma interna tional normalized ratio (INR) by coagulation assay (relatOrdered By: Andrew Hernández on 06-25-2021 INR Coag (PPP) [Relative time] 1.1 {INR} [facility] Comment on above: INR Therapeutic Rang e [...] 06-25-2021 Platelets (Bld) [#/Vol] 171 10*3/uL 150-450 [facility] Comment on above: Delta: 119 on 0453 Protein [Mass/volume] in Ser um or PlasmaOrdered By: Andrew Hernández on 06-25-2021 Protein [Mass/Vol] 6.6 g/dL 6.1-7.9 [facility] RBC Auto (Bld) [#/Vol]Ordere d By: Andrew Hernández on 06-25-2021 RBC (Bld) [#/Vol] 4.21 10*6/uL 3.90-5.60 [facility] Serum or plasma C reactive p rotein measurement (mass/volume)Ordered By: Andrew Hernández on 06-25-2021 CRP [Mass/Vol] 0.9 mg/dL 0.0-1.0 [facility] Serum or plasma alanine lopez otransferase measurement without P-5'-P (enzymatic activiOrdered By: Andrew Hernández on 06-25-2021 ALT No additional P-5'-P [Catalytic activity/Vol] 13 U/L 10-60 [facility] Serum or plasma albumin/glob ulin mass ratioOrdered By: Andrew Hernández on 06-25-2021 Albumin/Globulin [Mass ratio] 1.1 {ratio} [facility] Serum or plasma alkaline cande sphatase measurement (enzymatic activity/volume)Ordered By: Andrew Hernández on 06-25-2021 ALP [Catalytic activity/Vol] 57 U/L 32-92 [facility] Serum or plasma aspartate am inotransferase measurement (enzymatic activity/volume)Ordered By: Andrew Hernández on 06-25-2021 AST [Catalytic activity/Vol] 15 U/L 10-42 [facility] Serum or plasma calcium abhijit urement (mass/volume)Ordered By: Andrew Hernández on 06-25-2021 Calcium [Mass/Vol] 9.2 mg/dL 8.2-10.2 [facility] Serum or plasma chloride marylin surement (moles/volume)Ordered By: Andrew Hernández on 06-25-2021 Chloride [Moles/Vol] 106 mmol/L 95-114 [facility] Serum or plasma glucose abhijit urement (mass/volume)Ordered By: Andrew Hernández on 06-25-2021 Glucose [Mass/Vol] 177 mg/dL 70-100 [facility] Comment on above: ADA recommended refe rence rangeRandom Glucose Reference Range is dependent on time and content of last meal. Glucose of more than 200 mg/dL in a nonstressed, ambulatory subject supports the diagnosis of Diabetes Mellitus. Serum or plasma potassium me asurement (moles/volume)Ordered By: Andrew Hernández on 06-25-2021 Potassium [Moles/Vol] 4.2 mmol/L 3.5-5.1 [facility] Serum or plasma sodium measu rement (moles/volume)Ordered By: nAdrew Hernández on 06-25-2021 Sodium [Moles/Vol] 142 mmol/L 136-146 [facility] Serum or plasma total biliru bin measurement (mass/volume)Ordered By: Andrew Hernández on 06-25-2021 Bilirubin [Mass/Vol] 0.4 mg/dL 0.3-1.2 [facility] Serum or plasma total carbon dioxide measurement (moles/volume)Ordered By: Andrew Hernández on 06-25-2021 CO2 [Moles/Vol] 24.1 mmol/L 22.0-30.0 [facility] Serum or plasma urea nitroge n measurement (mass/volume)Ordered By: Andrew Hernández on 06-25-2021 Urea nitrogen [Mass/Vol] 41 mg/dL 9-23 [facility] Troponin I.cardiac [Mass/vol ume] in Serum or Plasma by High sensitivity methodOrdered By: Andrew Hernández on 06-25-2021 Troponin I.cardiac High sensitivity method [Mass/Vol] 12 pg/mL 0-20 [facility] Albumin [Mass/volume] in Ser um or PlasmaOrdered By: Julee Davies on 06-24-2021 Albumin [Mass/Vol] 2.9 g/dL 3.2-5.5 [facility] Basophils Auto (Bld) [#/Vol] Ordered By: Julee Davies on 06-24-2021 Basophils (Bld) [#/Vol] 0.0 10*3/uL 0.0-0.2 [facility] Basophils/100 WBC Auto (Bld) Ordered By: Julee Davies on 06-24-2021 Basophils/100 WBC (Bld) 0.6 % [facility] Blood hemoglobin measurement (mass/volume)Ordered By: Julee Davies on 06-24-2021 Hemoglobin (Bld) [Mass/Vol] 10.8 g/dL 13.0-17.0 [facility] Blood leukocytes automated c ount (number/volume)Ordered By: Julee Davies on 06-24-2021 WBC (Bld) [#/Vol] 6.6 10*3/uL 4.5-11.0 [facility] Creatinine and Glomerular fi ltration rate.predicted panel (S/P/Bld)Ordered By: Julee Davies on 06-24-2021 Creatinine [Mass/Vol] 2.17 mg/dL 0.64-1.27 [facility] Eosinophils Auto (Bld) [#/Vo l]Ordered By: Julee Davies on 06-24-2021 Eosinophils (Bld) [#/Vol] 0.3 10*3/uL 0.0-0.45 [facility] Eosinophils/100 WBC Auto (Bl d)Ordered By: Julee Davies on 06-24-2021 Eosinophils/100 WBC (Bld) 5.2 % [facility] Erythrocyte distribution wid th Auto (RBC) [Ratio]Ordered By: Julee Davies on 06-24-2021 Erythrocyte distribution width (RBC) [Ratio] 15.8 % 12.0-14.8 [facility] Estimated glomerular filtrat ion rate (GFR) non- AmericanOrdered By: Julee Davies on 06-24-2021 GFR/1.73 sq M.predicted among non-blacks MDRD (S/P/Bld) [Vol rate/Area] 30 mL/Min [facility] Globulin Calc (S) [Mass/Vol] Ordered By: Julee Davies on 06-24-2021 Globulin (S) [Mass/Vol] 2.4 g/dL [facility] Hematocrit Auto (Bld) [Volum e fraction]Ordered By: Julee Davies on 06-24-2021 Hematocrit (Bld) [Volume fraction] 33.0 % 38.8-50.0 [facility] Laboratory - Chemistry and C hemistry - challengeOrdered By: Julee Davies on 06-24-2021 Magnesium [Mass/Vol] 1.9 mg/dL 1.6-2.6 [facility] Natriuretic peptide B (Bld) [Mass/Vol] 224.0 pg/mL 5-100 [facility] Laboratory - Hematology and Cell countsOrdered By: Julee Davies on 06-24-2021 Nucleated RBC/100 WBC (Bld) [Ratio] 0.1 % 0-0.5 [facility] Lymphocytes Auto (Bld) [#/Vo l]Ordered By: Julee Davies on 06-24-2021 Lymphocytes (Bld) [#/Vol] 0.8 10*3/uL 1.00-4.8 [facility] Lymphocytes/100 WBC Auto (Bl d)Ordered By: Julee Davies on 06-24-2021 Lymphocytes/100 WBC (Bld) 11.4 % [facility] MCH Auto (RBC) [Entitic mass ]Ordered By: Julee Davies on 06-24-2021 MCH (RBC) [Entitic mass] 27.7 pg 27.5-35.2 [facility] MCHC Auto (RBC) [Mass/Vol]Or dered By: Julee Davies on 06-24-2021 MCHC (RBC) [Mass/Vol] 32.7 g/dL 32.5-35.6 [facility] MCV Auto (RBC) [Entitic vol] Ordered By: Julee Davies on 06-24-2021 MCV (RBC) [Entitic vol] 84.6 fL 83.5-101 [facility] Monocytes Auto (Bld) [#/Vol] Ordered By: Julee Davies on 06-24-2021 Monocytes (Bld) [#/Vol] 0.5 10*3/uL 0.0-0.8 [facility] Monocytes/100 WBC Auto (Bld) Ordered By: Julee Davies on 06-24-2021 Monocytes/100 WBC (Bld) 7.4 % [facility] Neutrophils Auto (Bld) [#/Vo l]Ordered By: Julee Davies on 06-24-2021 Neutrophils (Bld) [#/Vol] 5.0 10*3/uL 1.8-7.7 [facility] Neutrophils/100 WBC Auto (Bl d)Ordered By: Julee Davies on 06-24-2021 Neutrophils/100 WBC (Bld) 75.4 % [facility] No Panel InformationOrdered By: Julee Davies on 06-24-2021 Estimated GFR () 36 mL/Min [facility] Comment on above: GFR estimated refere nce range: According to KDOQI guidelines, <60 ml/min/1.73m2 is sufficient to diagnose a patient with chronic kidney disease. Pharmacy Creatinine Clearance (Chem N/A [facility] Platelet mean volume Auto (B ld) [Entitic vol]Ordered By: Julee Davies on 06-24-2021 Platelet mean volume (Bld) [Entitic vol] 9.8 fL 6.6-10.1 [facility] Platelets Auto (Bld) [#/Vol] Ordered By: Julee Davies on 06-24-2021 Platelets (Bld) [#/Vol] 119 10*3/uL 150-450 [facility] Protein [Mass/volume] in Ser um or PlasmaOrdered By: Julee Davies on 06-24-2021 Protein [Mass/Vol] 5.3 g/dL 6.1-7.9 [facility] RBC Auto (Bld) [#/Vol]Ordere d By: Julee Davies on 06-24-2021 RBC (Bld) [#/Vol] 3.90 10*6/uL 3.90-5.60 [facility] Serum or plasma alanine lopez otransferase measurement without P-5'-P (enzymatic activiOrdered By: Julee Daives on 06-24-2021 ALT No additional P-5'-P [Catalytic activity/Vol] 7 U/L 10-60 [facility] Serum or plasma albumin/glob ulin mass ratioOrdered By: Julee Davies on 06-24-2021 Albumin/Globulin [Mass ratio] 1.2 {ratio} [facility] Serum or plasma alkaline cande sphatase measurement (enzymatic activity/volume)Ordered By: Julee Davies on 06-24-2021 ALP [Catalytic activity/Vol] 56 U/L 32-92 [facility] Serum or plasma aspartate am inotransferase measurement (enzymatic activity/volume)Ordered By: Julee Davies on 06-24-2021 AST [Catalytic activity/Vol] 13 U/L 10-42 [facility] Serum or plasma calcium abhijit urement (mass/volume)Ordered By: Julee Davies on 06-24-2021 Calcium [Mass/Vol] 8.9 mg/dL 8.2-10.2 [facility] Serum or plasma chloride marylin surement (moles/volume)Ordered By: Julee Davies on 06-24-2021 Chloride [Moles/Vol] 109 mmol/L 95-114 [facility] Serum or plasma glucose abhijit urement (mass/volume)Ordered By: Julee Davies on 06-24-2021 Glucose [Mass/Vol] 160 mg/dL 70-100 [facility] Comment on above: ADA recommended refe rence rangeRandom Glucose Reference Range is dependent on time and content of last meal. Glucose of more than 200 mg/dL in a nonstressed, ambulatory subject supports the diagnosis of Diabetes Mellitus. Serum or plasma potassium me asurement (moles/volume)Ordered By: Julee Davies on 06-24-2021 Potassium [Moles/Vol] 4.1 mmol/L 3.5-5.1 [facility] Serum or plasma sodium measu rement (moles/volume)Ordered By: Julee Davies on 06-24-2021 Sodium [Moles/Vol] 144 mmol/L 136-146 [facility] Serum or plasma total biliru bin measurement (mass/volume)Ordered By: Julee Davies on 06-24-2021 Bilirubin [Mass/Vol] 0.5 mg/dL 0.3-1.2 [facility] Serum or plasma total carbon dioxide measurement (moles/volume)Ordered By: Julee Davies on 06-24-2021 CO2 [Moles/Vol] 25.7 mmol/L 22.0-30.0 [facility] Serum or plasma urea nitroge n measurement (mass/volume)Ordered By: Julee Davies on 06-24-2021 Urea nitrogen [Mass/Vol] 43 mg/dL 9-23 [facility] Tacrolimus [Mass/volume] in BloodOrdered By: Julee Davies on 06-24-2021 Tacrolimus (Bld) [Mass/Vol] 8.1 ng/mL [facility] Comment on above: This test was vane christine and its performance characteristicsdetermined by [employer]. It has not been cleared orapproved by the Food and Drug Administration. Trough (immediately following transplant) 15.0 Trough (steady state, 2 weeks or more after transplant): 3.0 - 8.0 Performed by LC-MS/MS technology.Performed at: [address] [id number] Director: Mynor Nixon MD, Phone: [phone] Albumin [Mass/volume] in Ser um or PlasmaOrdered By: Julee Davies on 05-27-2021 Albumin [Mass/Vol] 3.1 g/dL 3.2-5.5 [facility] Basophils Auto (Bld) [#/Vol] Ordered By: Julee Davies on 05-27-2021 Basophils (Bld) [#/Vol] 0.0 10*3/uL 0.0-0.2 [facility] Basophils/100 WBC Auto (Bld) Ordered By: Julee Davies on 05-27-2021 Basophils/100 WBC (Bld) 0.7 % [facility] Blood hemoglobin measurement (mass/volume)Ordered By: Julee Davies on 05-27-2021 Hemoglobin (Bld) [Mass/Vol] 11.4 g/dL 13.0-17.0 [facility] Blood leukocytes automated c ount (number/volume)Ordered By: Julee Davies on 05-27-2021 WBC (Bld) [#/Vol] 6.1 10*3/uL 4.5-11.0 [facility] Cholesterol [Mass/volume] in Serum or PlasmaOrdered By: Julee Davies on 05-27-2021 Cholesterol [Mass/Vol] 129 mg/dL 140-200 [facility] Comment on above: Chol less than 200 m g/dl low riskChol 201-239 mg/dl borderline riskChol 240 mg/dl and greater high risk Cholesterol in LDL Calc [Mas s/Vol]Ordered By: Julee Davies on 03-08-2022 Cholesterol in LDL [Mass/Vol] 67 mg/dL 0-100 [facility] Comment on above: LDL ATP III CLASSIFI CATIONLDL less than 100 mg/dL OptimalLDL 100-129 mg/dL Near or above optimalLDL 130-159 mg/dL Borderline highLDL 160-189 mg/dL HighLDL greater than 189 mg/dL Very high Cholesterol in VLDL Calc [Ma ss/Vol]Ordered By: Julee Davies on 05-27-2021 Cholesterol in VLDL [Mass/Vol] 27 mg/dL [facility] Creatinine and Glomerular fi ltration rate.predicted panel (S/P/Bld)Ordered By: Julee Davies on 05-27-2021 Creatinine [Mass/Vol] 1.86 mg/dL 0.64-1.27 [facility] Eosinophils Auto (Bld) [#/Vo l]Ordered By: Julee Davies on 05-27-2021 Eosinophils (Bld) [#/Vol] 0.2 10*3/uL 0.0-0.45 [facility] Eosinophils/100 WBC Auto (Bl d)Ordered By: Julee Davies on 05-27-2021 Eosinophils/100 WBC (Bld) 3.7 % [facility] Erythrocyte distribution wid th Auto (RBC) [Ratio]Ordered By: Julee Davies on 05-27-2021 Erythrocyte distribution width (RBC) [Ratio] 14.9 % 12.0-14.8 [facility] Estimated glomerular filtrat ion rate (GFR) non- AmericanOrdered By: Julee Davies on 05-27-2021 GFR/1.73 sq M.predicted among non-blacks MDRD (S/P/Bld) [Vol rate/Area] 35 mL/Min [facility] Globulin Calc (S) [Mass/Vol] Ordered By: Julee Davies on 05-27-2021 Globulin (S) [Mass/Vol] 2.9 g/dL [facility] Glucose mean value [Mass/vol ume] in Blood Estimated from glycated hemoglobinOrdered By: Julee Davies on 05-27-2021 Average glucose Estimated from glycated hemoglobin (Bld) [Mass/Vol] 209 mg/dL [facility] Hematocrit Auto (Bld) [Volum e fraction]Ordered By: Julee Davies on 05-27-2021 Hematocrit (Bld) [Volume fraction] 34.1 % 38.8-50.0 [facility] Hemoglobin A1c percentageOrd ered By: Julee Davies on 05-27-2021 HbA1c (Bld) [Mass fraction] 8.9 % 4.3-5.6 [facility] Comment on above: Increased risk for d iabetes: 5.7 - 6.4diabetes: >6.4glycemic control for adults with diabetes: <7.0 Laboratory - Hematology and Cell countsOrdered By: Julee Davies on 05-27-2021 Nucleated RBC/100 WBC (Bld) [Ratio] 0.2 % 0-0.5 [facility] Lymphocytes Auto (Bld) [#/Vo l]Ordered By: Julee Davies on 05-27-2021 Lymphocytes (Bld) [#/Vol] 1.1 10*3/uL 1.00-4.8 [facility] Lymphocytes/100 WBC Auto (Bl d)Ordered By: Julee Davies on 05-27-2021 Lymphocytes/100 WBC (Bld) 17.9 % [facility] MCH Auto (RBC) [Entitic mass ]Ordered By: Julee Davies on 05-27-2021 MCH (RBC) [Entitic mass] 28.3 pg 27.5-35.2 [facility] MCHC Auto (RBC) [Mass/Vol]Or dered By: Julee Davies on 05-27-2021 MCHC (RBC) [Mass/Vol] 33.5 g/dL 32.5-35.6 [facility] MCV Auto (RBC) [Entitic vol] Ordered By: Julee Davies on 05-27-2021 MCV (RBC) [Entitic vol] 84.5 fL 83.5-101 [facility] Monocytes Auto (Bld) [#/Vol] Ordered By: Julee Davies on 05-27-2021 Monocytes (Bld) [#/Vol] 0.5 10*3/uL 0.0-0.8 [facility] Monocytes/100 WBC Auto (Bld) Ordered By: Julee Davies on 05-27-2021 Monocytes/100 WBC (Bld) 7.9 % [facility] Neutrophils Auto (Bld) [#/Vo l]Ordered By: Julee Davies on 05-27-2021 Neutrophils (Bld) [#/Vol] 4.3 10*3/uL 1.8-7.7 [facility] Neutrophils/100 WBC Auto (Bl d)Ordered By: Julee Davies on 05-27-2021 Neutrophils/100 WBC (Bld) 69.8 % [facility] No Panel InformationOrdered By: Julee Davies on 05-27-2021 25-Hydroxy Vitamin D Total 23.8 ng/mL 30-100 [facility] Comment on above: VITAMIN D STATUS 25( [place])VITAMIN D RANGE (ng/mL) Deficient <20 Insufficient 20 to <30Sufficient 30 to 100Reference: Ely MF,Brad NC, Kristy ORTEGA, et al. Evaluation,treatment, and prevention of vitamin D deficiency; an Endocrine Society clinical practice guideline. JCEM. 2010; 96(7):1911-30. Estimated GFR () 43 mL/Min [facility] Comment on above: GFR estimated refere nce range: According to KDOQI guidelines, <60 ml/min/1.73m2 is sufficient to diagnose a patient with chronic kidney disease. Pharmacy Creatinine Clearance (Chem N/A [facility] Platelet Estimate Decreased Normal [facility] Platelet Morphology Comment Normal Normal [facility] Platelet mean volume Auto (B ld) [Entitic vol]Ordered By: Julee Davies on 05-27-2021 Platelet mean volume (Bld) [Entitic vol] 10.6 fL 6.6-10.1 [facility] Platelets Auto (Bld) [#/Vol] Ordered By: Julee Davies on 05-27-2021 Platelets (Bld) [#/Vol] 129 10*3/uL 150-450 [facility] Protein [Mass/volume] in Ser um or PlasmaOrdered By: Julee Davies on 05-27-2021 Protein [Mass/Vol] 6.0 g/dL 6.1-7.9 [facility] RBC Auto (Bld) [#/Vol]Ordere d By: Julee Davies on 05-27-2021 RBC (Bld) [#/Vol] 4.03 10*6/uL 3.90-5.60 [facility] RBC morphologyOrdered By: Maurice Davies on 05-27-2021 RBC morphology finding Nom (Bld) Normal [facility] Serum or plasma alanine lopez otransferase measurement without P-5'-P (enzymatic activiOrdered By: Julee Davies on 05-27-2021 ALT No additional P-5'-P [Catalytic activity/Vol] 7 U/L 10-60 [facility] Serum or plasma albumin/glob ulin mass ratioOrdered By: Julee Davies on 05-27-2021 Albumin/Globulin [Mass ratio] 1.1 {ratio} [facility] Serum or plasma alkaline cande sphatase measurement (enzymatic activity/volume)Ordered By: Julee Davies on 05-27-2021 ALP [Catalytic activity/Vol] 52 U/L 32-92 [facility] Serum or plasma aspartate am inotransferase measurement (enzymatic activity/volume)Ordered By: Julee Davies on 05-27-2021 AST [Catalytic activity/Vol] 11 U/L 10-42 [facility] Serum or plasma calcium abhijit urement (mass/volume)Ordered By: Julee Davies on 05-27-2021 Calcium [Mass/Vol] 9.0 mg/dL 8.2-10.2 [facility] Serum or plasma chloride marylin surement (moles/volume)Ordered By: Julee Davies on 05-27-2021 Chloride [Moles/Vol] 104 mmol/L 95-114 [facility] Serum or plasma glucose abhijit urement (mass/volume)Ordered By: Julee Davies on 05-27-2021 Glucose [Mass/Vol] 183 mg/dL 70-100 [facility] Comment on above: ADA recommended refe rence rangeRandom Glucose Reference Range is dependent on time and content of last meal. Glucose of more than 200 mg/dL in a nonstressed, ambulatory subject supports the diagnosis of Diabetes Mellitus. Serum or plasma high density lipoprotein (HDL) cholesterol measurementOrdered By: Julee Davies on 05-27-2021 Cholesterol in HDL [Mass/Vol] 35 mg/dL 29-71 [facility] Comment on above: HDL CHOL ATP-III CLA SSIFICATION Cardiovascular RiskHDL > or equal to 60 mg/dL LOWHDL < 40 mg/dL HIGH Serum or plasma potassium me asurement (moles/volume)Ordered By: Julee Davies on 05-27-2021 Potassium [Moles/Vol] 4.1 mmol/L 3.5-5.1 [facility] Serum or plasma sodium measu rement (moles/volume)Ordered By: Julee Davies on 05-27-2021 Sodium [Moles/Vol] 140 mmol/L 136-146 [facility] Serum or plasma total biliru bin measurement (mass/volume)Ordered By: Julee Davies on 05-27-2021 Bilirubin [Mass/Vol] 0.4 mg/dL 0.3-1.2 [facility] Serum or plasma total carbon dioxide measurement (moles/volume)Ordered By: Julee Davies on 05-27-2021 CO2 [Moles/Vol] 26.1 mmol/L 22.0-30.0 [facility] Serum or plasma total choles terol/high density lipoprotein (HDL) cholesterol mass ratOrdered By: Julee Davies on 05-27-2021 Cholesterol.total/Denise sterol in HDL [Mass ratio] 3.7 {ratio} [facility] Serum or plasma urea nitroge n measurement (mass/volume)Ordered By: Julee Davies on 05-27-2021 Urea nitrogen [Mass/Vol] 38 mg/dL 9-23 [facility] TSH DL <= 0.005 mIU/L QnOrde red By: Julee Davies on 05-27-2021 TSH Qn 4.10 m[IU]/L 0.45-5.33 [facility] Triglyceride [Mass/volume] i n Serum or PlasmaOrdered By: Julee Davies on 05-27-2021 Triglyceride [Mass/Vol] 136 mg/dL 35-149 [facility] Comment on above: TRIG ATP III [...] Authorization (EUA) and has been verified by [facility] ([facility]). This test is only authorized for the duration of time that circumstances exist to justify the authorization of the emergency use of in vitro diagnostic tests for the detection of SARS-CoV-2 virus and/or diagnosis of COVID-19 infection under section 564(b)(1) of the Act, 21 U.S.C. 360bbb-3(b)(1), unless the authorization is terminated or revoked sooner. [facility] is certified under CLIA-88 as qualified to perform high complexity testing. Testing is performed in the [facility] located at [address] [place] [address].SARS-CoV-2/Flu/RSV Multiplex Test: Fact sheet for providers: https://www.fda.gov/media/561391/downloadFact sheet for patients: https://www.fda.gov/media/134636/download Coronavirus 2019 RNA by PCR, Screening Asymptomtic Canceled [facility] DO Work Phone: Comment on above: SOURCE: Nasal, Nasop haryngeal.This test has received FDA Emergency Use Authorization (EUA) and has been verified by [facility] ([facility]). This test is only authorized for the duration of time that circumstances exist to justify the authorization of the emergency use of in vitro diagnostic tests for the detection of SARS-CoV-2 virus and/or diagnosis of COVID-19 infection under section 564(b)(1) of the Act, 21 U.S.C. 360bbb-3(b)(1), unless the authorization is terminated or revoked sooner. [facility] is certified under CLIA-88 as qualified to perform high complexity testing. Testing is performed in the [facility] located at [address] [place] [address].SARS-CoV-2/Flu/RSV Multiplex Test: Fact sheet for providers: https://www.fda.gov/media/821701/downloadFact sheet for patients: https://www.fda.gov/media/930856/download Laboratory - Chemistry and C hemistry - challengeon 12-24-2020 Glucose [Mass/Vol] 203 mg/dL above high threshold 74 - 99 [facility] [facility] DO Work Phone: Laboratory - Hematology and Cell countson 12-24-2020 Erythrocyte distribution width (RBC) [Ratio] 12.7 % See Below [facility] [facility] [address] DO Work Phone: Comment on [...] [Mass/Vol] 32.8 g/dL See Below [facility] [facility] [address] DO Work Phone: Comment on [...] to view the study images Normal [facility] [facility] [address] DO Work Phone: 0.0 {/100_WBC} 0.0-0.0 [facility] [facility] [address] DO Work Phone: Renal Function Panelon 12-24 Albumin BCP dye [Mass/Vol] 3.6 g/dL 3.4 - 5.0 [facility] [facility] DO Work Phone: Anion gap [Moles/Vol] 15 mmol/L 10 - 20 [facility] DO Work Phone: Calcium [Mass/Vol] 9.0 mg/dL 8.6 - 10.6 [facility] [address] DO Work Phone: [phone] Chloride [Moles/Vol] 109 mmol/L above high threshold 98 - 107 [facility] DO Work Phone: CO2 [Moles/Vol] 24 mmol/L 21 - 32 [facility] DO Work Phone: Creatinine [Mass/Vol] 1.77 mg/dL above high threshold See Below [facility] [facility] [address] DO Work Phone: Comment on above: Reference Range: 0.5 0 - 1.30 Glucose [Mass/Vol] 195 mg/dL above high threshold 74 - 99 [facility] [facility] [address] DO Work Phone: Phosphate [Mass/Vol] [...] Function Panel 45 {mL/min/1.73m2} Abnormal >60 [facility] [facility] [address] DO Work Phone: Comment on above: CALCULATIONS OF ERNST MATED GFR ARE PERFORMED USING THE MDRD STUDY EQUATION FOR THE IDMS-TRACEABLE CREATININE METHODS. CLIN CHEM 2007;53:766-72 Renal Function Panel 37 {mL/min/1.73m2} Abnormal >60 [facility] [facility] 260 DO Work Phone: Tacrolimuson 12-24-2020 Tacrolimus (Bld) [Mass/Vol] 5.4 ng/mL 2.0 - 15.0 [facility] DO Work Phone: Comment on above: NOTE: Result was obt ained using a chemiluminescent microparticle immunoassay (CMIA) on the [employer] i system.Optimal therapeutic ranges for immuno-suppressant drugs depend upon an individualpatient's current clinical state, type oforgan transplant, time post-transplant,co-administration of other immunosuppressants,and other clinical factors. The results ofthis test should be correlated with additionalclinical and laboratory data before changesin treatment regimens are made. CT Head without Contraston 1 CT Head limited WO contrast Normal [facility] [facility] [address] DO Work Phone: [phone] Laboratory - Chemistry and C hemistry - challengeon 12-23-2020 Glucose [Mass/Vol] 151 mg/dL above high threshold 74 - 99 [facility] DO Work Phone: [phone] Glucose [Mass/Vol] 241 mg/dL above high threshold 74 - 99 [facility] DO Work Phone: [phone] Glucose [Mass/Vol] 195 mg/dL above high threshold 74 - 99 [facility] [facility] [address] DO Work Phone: [phone] Glucose [Mass/Vol] 160 mg/dL above high threshold 74 - 99 [facility] [facility] 260 DO Work Phone: [phone] Laboratory - Hematology and Cell countson 12-23-2020 Erythrocyte distribution width (RBC) [Ratio] 12.5 % See Below [facility] [facility] DO Work Phone: [phone] Comment on above: Reference Range: 11. 5 - 14.5 Hematocrit (Bld) [Volume fraction] 34.3 % below low threshold See Below [facility] [facility] 260 DO Work Phone: [phone] Comment on above: Reference Range: 41. 0 - 52.0 Hemoglobin (Bld) [Mass/Vol] 11.1 g/dL below low threshold See Below [facility] [facility] 260 DO Work Phone: [phone] Comment on above: Reference Range: 13. 5 - 17.5 MCHC (RBC) [Mass/Vol] 32.4 g/dL See Below [facility] [facility] 260 DO Work Phone: [phone] Comment on above: Reference Range: 32. 0 - 36.0 MCV (RBC) [Entitic vol] 90 fL 80 - 100 M [facility] [facility] 260 DO Work Phone: [phone] Platelets (Bld) [#/Vol] 106 10*3/uL below lo w threshold 150 - 450 [facility] [facility] 260 DO Work Phone: [phone] RBC (Bld) [#/Vol] 3.83 {x10E12/L} below low threshold See Below [facility] [facility] 260 DO Work Phone: [phone] Comment on above: Reference Range: 4.5 0 - 5.90 WBC (Bld) [#/Vol] 5.2 10*3/uL 4.4 - 11.3 [facility] [facility] 260 DO Work Phone: [phone] No Panel Informationon 12-23 0.0 {/100_WBC} 0.0-0.0 [facility] [facility] 260 DO Work Phone: [phone] Renal Function Panelon 12-23 Albumin BCP dye [Mass/Vol] 3.6 g/dL 3.4 - 5.0 [facility] 260 DO Work Phone: [phone] Anion gap [Moles/Vol] 14 mmol/L 10 - 20 [facility] [facility] 260 DO Work Phone: [phone] Calcium [Mass/Vol] 8.9 mg/dL 8.6 - 10.6 [facility] [facility] 260 DO Work Phone: [phone] Chloride [Moles/Vol] 109 mmol/L above high threshold 98 - 107 [facility] [facility] 260 DO Work Phone: [phone] CO2 [Moles/Vol] 23 mmol/L 21 - 32 [facility] [facility] 260 DO Work Phone: [phone] Creatinine [Mass/Vol] 1.71 mg/dL above high threshold See Below [facility] [facility] 260 DO Work Phone: Comment on above: Reference Range: 0.5 0 - 1.30 Glucose [Mass/Vol] 146 mg/dL above high threshold 74 - 99 [facility] [facility] 260 DO Work Phone: Phosphate [Mass/Vol] [...] 4.2 mmol/L 3.5 - 5.3 [facility] [facility] 260 DO Work Phone: Sodium [Moles/Vol] 142 mmol/L 136 - 145 [facility] [facility] 260 DO Work Phone: Urea nitrogen [Mass/Vol] 50 mg/dL above high threshold 6 - 23 [facility] [facility] 260 DO Work Phone: Renal Function Panel 47 {mL/min/1.73m2} Abnormal >60 [facility] [facility] 260 DO Work Phone: Comment on above: CALCULATIONS OF ERNST MATED GFR ARE PERFORMED USING THE MDRD STUDY EQUATION FOR THE IDMS-TRACEABLE CREATININE METHODS. CLIN CHEM 2007;53:766-72 Renal Function Panel 39 {mL/min/1.73m2} Abnormal >60 [facility] 260 DO Work Phone: Tacrolimuson 12-23-2020 Tacrolimus (Bld) [Mass/Vol] 5.9 ng/mL 2.0 - 15.0 [facility] [facility] 260 DO Work Phone: Comment on above: NOTE: Result was obt ained using a chemiluminescent microparticle immunoassay (CMIA) on the [employer] i system.Optimal therapeutic ranges for immuno-suppressant drugs [...] [facility] 260 DO Work Phone: [phone] Glucose [Mass/Vol] 146 mg/dL above high threshold 74 - 99 [facility] [facility] 260 DO Work Phone: [phone] Glucose [Mass/Vol] 217 mg/dL above high threshold 74 - 99 [facility] [facility] 260 DO Work Phone: [phone] Glucose [Mass/Vol] 145 mg/dL above high threshold 74 - 99 [facility] [facility] 260 DO Work Phone: [phone] Glucose [Mass/Vol] 142 mg/dL above high threshold 74 - 99 [facility] [facility] 260 DO Work Phone: [phone] Laboratory - Hematology and Cell countson 12-22-2020 Erythrocyte distribution width (RBC) [Ratio] 12.6 % See Below [facility] [facility] 260 DO Work Phone: [phone] Comment on above: Reference Range: 11. 5 - 14.5 Hematocrit (Bld) [Volume fraction] 33.0 % below low threshold See Below [facility] [facility] 260 DO Work Phone: Comment on above: Reference Range: 41. 0 - 52.0 Hemoglobin (Bld) [Mass/Vol] 10.7 g/dL below low threshold See Below [facility] [facility] 260 DO Work Phone: Comment on above: Reference Range: 13. 5 - 17.5 MCHC (RBC) [Mass/Vol] 32.4 g/dL See Below [facility] [facility] 260 DO Work Phone: [phone] Comment on above: Reference Range: 32. 0 - 36.0 MCV (RBC) [Entitic vol] 91 fL 80 - 100 M [facility] [facility] 260 DO Work Phone: [phone] Platelets (Bld) [#/Vol] 107 10*3/uL below lo w threshold 150 - 450 [facility] [facility] 260 DO Work Phone: [phone] RBC (Bld) [#/Vol] 3.62 {x10E12/L} below low threshold See Below [facility] [facility] 260 DO Work Phone: [phone] Comment on above: Reference Range: 4.5 0 - 5.90 WBC (Bld) [#/Vol] 5.0 10*3/uL 4.4 - 11.3 [facility] [facility] 260 DO Work Phone: [phone] No Panel Informationon 12-22 0.0 {/100_WBC} 0.0-0.0 [facility] [facility] 260 DO Work Phone: [phone] Renal Function Panelon 12-22 Albumin BCP dye [Mass/Vol] 3.5 g/dL 3.4 - 5.0 [facility] [facility] 260 DO Work Phone: [phone] Anion gap [Moles/Vol] 15 mmol/L 10 - 20 [facility] [facility] 260 DO Work Phone: [phone] Calcium [Mass/Vol] 8.9 mg/dL 8.6 - 10.6 [facility] [facility] 260 DO Work Phone: [phone] Chloride [Moles/Vol] 111 mmol/L above high threshold 98 - 107 [facility] [facility] 260 DO Work Phone: [phone] CO2 [Moles/Vol] 23 mmol/L 21 - 32 [facility] [facility] 260 DO Work Phone: Creatinine [Mass/Vol] [...] Function Panel 39 {mL/min/1.73m2} Abnormal >60 [facility] [facility] 260 DO Work Phone: Comment on [...] a chemiluminescent microparticle immunoassay (CMIA) on the [employer] i system.Optimal therapeutic ranges for immuno-suppressant drugs depend upon an individualpatient's current clinical state, type oforgan transplant, time post-transplant,co-administration of other immunosuppressants,and other clinical factors. The results ofthis test should be correlated with additionalclinical and laboratory data before changesin treatment regimens are made. CT Chest Abdomen Pelvis wo C ontraston 12-21-2020 CT Chest and Abdomen and Pelvis WO contrast Normal [facility] [facility] 260 DO Work Phone: Hemoglobin A1Con 12-21-2020 Glucose [Mass/Vol] 148 mg/dL [facility] [facility] 260 DO Work Phone: HbA1c (Bld) [Mass fraction] Canceled [facility] [facility] 260 DO Work Phone: Comment on above: Diagnosis of Diabete s-Adults Non-Diabetic: < or = 5.6% Increased risk for developing diabetes: 5.7-6.4% Diagnostic of diabetes: > or = 6.5%. Monitoring of Diabetes Age (y) Therapeutic Goal (%) Adults: >18 <7.0 Pediatrics: 13-18 <7.5 7-12 <8.0 0- 6 7.5-8.5 [employer]. Diabetes Care 33(S1)Mar 2009. HbA1c [...] 13-18 <7.5 7-12 <8.0 0- 6 7.5-8.5 [employer]. Diabetes Care 33(S1), Mar 2009. Hemoglobin A1C Canceled [facility] [facility] 260 DO Work Phone: Laboratory - Chemistry and C hemistry - challengeon 12-21-2020 Glucose [Mass/Vol] 191 mg/dL above high threshold 74 - 99 [facility] [facility] 260 DO Work Phone: Glucose [Mass/Vol] 203 mg/dL above high threshold 74 - 99 [facility] [facility] 260 DO Work Phone: [phone] Glucose [Mass/Vol] 229 mg/dL above high threshold 74 - 99 [facility] [facility] 260 DO Work Phone: [phone] Glucose [Mass/Vol] 136 mg/dL above high threshold 74 - 99 [facility] [facility] 260 DO Work Phone: [phone] Laboratory - Hematology and Cell countson 12-21-2020 Erythrocyte distribution width (RBC) [Ratio] 12.8 % See Below [facility] [facility] 260 DO Work Phone: [phone] Comment on above: Reference Range: 11. 5 - 14.5 Hematocrit (Bld) [Volume fraction] 35.6 % below low threshold See Below [facility] [facility] 260 DO Work Phone: [phone] Comment on above: Reference Range: 41. 0 - 52.0 Hemoglobin (Bld) [Mass/Vol] 12.0 g/dL below low threshold See Below [facility] [facility] 260 DO Work Phone: Comment on above: Reference Range: 13. 5 - 17.5 MCHC (RBC) [Mass/Vol] 33.7 g/dL See Below [facility] [facility] 260 DO Work Phone: Comment on above: Reference Range: 32. 0 - 36.0 MCV (RBC) [Entitic vol] 89 fL 80 - 100 M [facility] [facility] 260 DO Work Phone: Platelets (Bld) [#/Vol] 124 10*3/uL below lo w threshold 150 - 450 [facility] [facility] 260 DO Work Phone: [phone] RBC (Bld) [#/Vol] 4.01 {x10E12/L} below low threshold See Below [facility] [facility] 260 DO Work Phone: [phone] Comment on above: Reference Range: 4.5 0 - 5.90 WBC (Bld) [#/Vol] 6.2 10*3/uL 4.4 - 11.3 [facility] [facility] 260 DO Work Phone: No Panel Informationon 12-21 0.0 {/100_WBC} 0.0-0.0 [facility] [facility] 260 DO Work Phone: [phone] Renal Function Panelon 12-21 Albumin BCP dye [Mass/Vol] 3.8 g/dL 3.4 - 5.0 [facility] [facility] 260 DO Work Phone: [phone] Anion gap [Moles/Vol] 15 mmol/L 10 - 20 [facility] [facility] 260 DO Work Phone: [phone] Calcium [Mass/Vol] 8.8 mg/dL 8.6 - 10.6 [facility] [facility] 260 DO Work Phone: [phone] Chloride [Moles/Vol] 110 mmol/L above high threshold 98 - 107 [facility] [facility] 260 DO Work Phone: [phone] CO2 [Moles/Vol] 23 mmol/L 21 - 32 [facility] [facility] 260 DO Work Phone: [phone] Creatinine [Mass/Vol] 2.22 mg/dL above high threshold See Below [facility] [facility] 260 DO Work Phone: [phone] Comment on above: Reference Range: 0.5 0 [...] 4.1 mmol/L 3.5 - 5.3 [facility] [facility] 260 DO Work Phone: Sodium [Moles/Vol] [...] a chemiluminescent microparticle immunoassay (CMIA) on the [employer] i system.Optimal therapeutic ranges for immuno-suppressant drugs depend upon an individualpatient's current clinical state, type oforgan transplant, time post-transplant,co-administration of other immunosuppressants,and other clinical factors. The results ofthis test should be correlated with additionalclinical and laboratory data before changesin treatment regimens are made. Coronavirus 2019 RNA by PCR, Symptomaticon 12-20-2020 Coronavirus 2019 RNA by PCR, Symptomatic Not detected Normal See Below [facility] [facility] 260 DO Work Phone: Comment on above: SOURCE: Nasal, Nasop haryngealReference Range: Not Detected.This test has received FDA Emergency Use Authorization (EUA) and has been verified by [facility] ([facility]). This test is only authorized for the duration of time that circumstances exist to justify the authorization of the emergency use of in vitro diagnostic tests for the detection of SARS-CoV-2 virus and/or diagnosis of COVID-19 infection under section 564(b)(1) of the Act, 21 U.S.C. 360bbb-3(b)(1), unless the authorization is terminated or revoked sooner. [facility] is certified under CLIA-88 as qualified to perform high complexity testing. Testing is performed in the [facility] located at [address] [place] [address].SARS-CoV-2/Flu/RSV Multiplex Test: Fact sheet for providers: https://www.fda.gov/media/801303/downloadFact sheet for patients: https://www.fda.gov/media/558280/download Date and time of symptom onset Canceled [facility] [facility] 260 DO Work Phone: Coronavirus 2019 RNA by PCR, Symptomatic Canceled [facility] [facility] 260 DO Work Phone: Comment on [...] this test method. Fact sheet for providers: www.fda.gov/media/114299/downloadFact sheet for patients: www.fda.gov/media/358944/downloadThis test has received FDA Emergency Use Authorization (EUA) and has been verified by [facility] ([facility]). This test is only authorized for the duration of time that circumstances exist to justify the authorization of the emergency use of in vitro diagnostic tests for the detection of SARS-CoV-2 virus and/or diagnosis of COVID-19 infection under section 564(b)(1) of the Act, 21 U.S.C. 360bbb-3(b)(1), unless the authorization is terminated or revoked sooner. [facility] is certified under CLIA-88 as qualified to perform high complexity testing. Testing is performed in the [facility] laboratories located at [address] [place] [address]. Folate, Serumon 12-20-2020 Folate [Mass/Vol] ng/mL >5.0 [facility] [facility] 260 DO Work Phone: Comment on [...] above high threshold 74 - 99 [facility] [facility] 260 DO Work Phone: TSH Qn 2.00 m[IU]/L See Below [facility] [facility] 260 DO Work Phone: Comment on above: Reference Range: 0.4 4 - 3.98 TSH testing is performed using different testing methodology at [facility] than at other [facility]. Direct result comparisons should only be [...] [facility] [facility] 260 DO Work Phone: [phone] PT Coag (PPP) [Time] Canceled [facility]ad[facility] [facility] 260 DO Work Phone: [phone] Laboratory - Hematology and Cell countson 12-20-2020 Erythrocyte distribution width (RBC) [Ratio] 12.9 % See Below [facility] [facility] 260 DO Work Phone: [phone] Comment on above: Reference Range: 11. 5 - 14.5 Hematocrit (Bld) [Volume fraction] 35.8 % below low threshold See Below [facility] [facility] 260 DO Work Phone: [phone] Comment on above: Reference Range: 41. 0 - 52.0 Hemoglobin (Bld) [Mass/Vol] 11.7 g/dL below low threshold See Below [facility] [facility] 260 DO Work Phone: [phone] Comment on above: Reference Range: 13. 5 - 17.5 MCHC (RBC) [Mass/Vol] 32.7 g/dL See Below [facility] [facility] 260 DO Work Phone: [phone] Comment on above: Reference Range: 32. 0 - 36.0 MCV (RBC) [Entitic vol] 90 fL 80 - 100 [facility] [facility] 260 DO Work Phone: [phone] Platelets (Bld) [#/Vol] 131 10*3/uL below lo w threshold 150 - 450 [facility] [facility] 260 DO Work Phone: [phone] RBC (Bld) [#/Vol] 3.97 {x10E12/L} below low threshold See Below [facility] [facility] 260 DO Work Phone: [phone] Comment on above: Reference Range: 4.5 0 - 5.90 WBC (Bld) [#/Vol] 7.3 10*3/uL 4.4 - 11.3 [facility] [facility] 260 DO Work Phone: Lactate, Levelon 12-20-2020 Lactate [Moles/Vol] 1.0 mmol/L 0.4 - 2.0 MG[facility] [facility] 260 DO Work Phone: Comment on [...] above: . <100 pg/mL - Heart failure [id number] pg/mL - Intermediate probability of acute heart. [...] XR Chest Single view Normal [facility] [facility] 260 DO Work Phone: Renal Function Panelon 12-20 Albumin BCP dye [Mass/Vol] 3.9 g/dL 3.4 - 5.0 [facility] [facility] 260 DO Work Phone: [phone] Anion gap [Moles/Vol] 17 mmol/L 10 - 20 [facility] [facility] 260 DO Work Phone: [phone] Calcium [Mass/Vol] 9.2 mg/dL 8.6 - 10.6 [facility] [facility] 260 DO Work Phone: [phone] Chloride [Moles/Vol] 112 mmol/L above high threshold 98 - 107 [facility] [facility] 260 DO Work Phone: [phone] [...] above high threshold 136 - 145 [facility] [facility] 260 DO Work Phone: [phone] Urea nitrogen [Mass/Vol] 74 mg/dL above high threshold 6 - 23 [facility] [facility] 260 DO Work Phone: Renal Function Panel 31 {mL/min/1.73m2} Abnormal >60 [facility] [facility] 260 DO Work Phone: Comment on [...] a chemiluminescent microparticle immunoassay (CMIA) on the [employer] i system.Optimal therapeutic ranges for immuno-suppressant drugs [...] performed using different testing methodology at [facility] than at other [facility]. Direct result comparisons should only be [...] [Moles/Vol] 11 mmol/L 9 - 17 mmol/L [employer] Phone: Calcium [Mass/Vol] 9.3 mg/dL 8.6 - 10. 4 mg/dL [employer] Phone: Chloride [Moles/Vol] 107 mmol/L 98 - 10 7 mmol/L [employer] Phone: CO2 [Moles/Vol] 23 mmol/L 20 - 31 mmol/L [employer] Phone: Creatinine [Mass/Vol] 2.53 mg/dL High 0.70 - 1.20 mg/dL [employer] Phone: GFR 30 mL/min Low >60 [employer] Phone: GFR Non- 25 mL/min Low >60 [employer] Phone: Glucose [Mass/Vol] 160 mg/dL High 70 - 99 mg/dL [employer] Phone: Interpretation and review of laboratory results Abnormal [employer] Phone: Potassium [Moles/Vol] 4.5 mmol/L 3.7 - 5.3 mmol/L [employer] Phone: Sodium [Moles/Vol] 141 mmol/L 135 - 144 mmol/L [employer] Phone: Urea nitrogen (BldV) [Mass/Vol] 76 mg/dL High 8 - 23 mg/dL [employer] Phone: Urea nitrogen/Creatinine (Bld) [Mass ratio] 30 High [employer] Phone: [employer] Phone: Laboratory - Chemistry and C hemistry - challengeOrdered By: Manuel Conner on 12-19-2020 GFR/1.73 sq M.predicted MDRD (S/P/Bld) [Vol rate/Area] [employer] Phone: Comment on above: Average GFR for 70 o r more years old: 75 mL/min/1.73sq m Chronic Kidney Disease: <60 mL/min/1.73sq m Kidney failure: <15 mL/min/1.73sq m eGFR calculated using average adult body mass. Additional eGFR calculator available at: http://www.Fanfou.com/FlyCast_crcl_2012.htm Stage 1: Some kidney damage normal GFR Stage 2: Mild kidney damage GFR 60-89 Stage 3: Moderate kidney damage GFR 30-59 Stage 4: Severe kidney damage GFR 15-29 Stage 5: Severe kidney damage GFR <15 ESRD - chronic treatment by dialysis or transplant TroponinOrdered By: Manuel Conner on 12-19-2020 Interpretation and review of laboratory results Abnormal [employer] Phone: Troponin Interp NOT REPORTED [employer] Phone: Troponin T NOT REPORTED <0.03 ng/mL [employer] Phone: Troponin, High Sensitivity 57 ng/L Critically high 0 - 22 ng/L [employer] Phone: Comment on above: High Sensitivity Troponin values cannot be compared with other Troponin methodologies. Patients with high levels of Biotin oral intake (i.e >5mg/day) may have falsely decreased Troponin levels. Samples collected within 8 hours of biotin intake may require additional information for diagnosis. [employer] Phone: Basic Metabolic PanelOrdered By: Manuel Conner on 12-18-2020 Anion gap [Moles/Vol] 14 mmol/L 9 - 17 mmol/L [employer] Phone: Calcium [Mass/Vol] 9.3 mg/dL 8.6 - 10. 4 mg/dL [employer] Phone: Chloride [Moles/Vol] 104 mmol/L 98 - 10 7 mmol/L [employer] Phone: CO2 [Moles/Vol] 22 mmol/L 20 - 31 mmol/L [employer] Phone: Creatinine [Mass/Vol] 4.1 mg/dL High 0.70 - 1.20 mg/dL [employer] Phone: GFR 17 mL/min Low >60 [employer] Phone: GFR Non- 14 mL/min Low >60 [employer] Phone: Glucose [Mass/Vol] 148 mg/dL High 70 - 99 mg/dL [employer] Phone: Potassium [Moles/Vol] 5.2 mmol/L 3.7 - 5.3 mmol/L [employer] Phone: Sodium [Moles/Vol] 140 mmol/L 135 - 144 mmol/L [employer] Phone: Urea nitrogen (BldV) [Mass/Vol] 87 mg/dL High 8 - 23 mg/dL [employer] Phone: Urea nitrogen/Creatinine (Bld) [Mass ratio] 21 High [employer] Phone: Brain Natriuretic PeptideOrd ered By: Manuel Conner on 12-18-2020 BNP Interpretation Pro-BNP Reference Range: [employer] Phone: Comment on above: Rule Out: <300 Pagan Zone: Age <50 300-450 Age 50-75 300-900 Age >75 300-1800 Usually represents mild to moderate HF but other cardiopulmonary causes cannot be ruled out. Rule In: Age <50 >450 Age 50-75 >900 Age >75 >1800 Interpretation and review of laboratory results Abnormal [employer] Phone: Natriuretic peptide B (Bld) [Mass/Vol] 846 pg/mL High <300 [employer] Phone: Comment on above: Pro-BNP results halie ot be compared to BNP results. [employer] Phone: EKG Rhythm StripOrdered By: Unknown Result on 12-18-2020 [employer] Phone: [employer] Phone: Glucose, Whole BloodOrdered By: Manuel Conner on 12-18-2020 Glucose [Mass/Vol] 152 mg/dL High 74 - 100 mg/dL [employer] Phone: Interpretation and review of laboratory results Abnormal [employer] Phone: [employer] Phone: Laboratory - Chemistry and C hemistry - challengeOrdered By: Manuel Conner on 12-18-2020 GFR/1.73 sq M.predicted MDRD (S/P/Bld) [Vol rate/Area] [employer] Phone: Comment on above: Average GFR for 70 o r more years old: 75 mL/min/1.73sq m Chronic Kidney Disease: <60 mL/min/1.73sq m Kidney failure: <15 mL/min/1.73sq m eGFR calculated using average adult body mass. Additional eGFR calculator available at: http://www.Welcome Real-time.com/multiple_crcl_2012.htm Stage 1: Some kidney damage normal GFR Stage 2: Mild kidney damage GFR 60-89 Stage 3: Moderate kidney damage GFR 30-59 Stage 4: Severe kidney damage GFR 15-29 Stage 5: Severe kidney damage GFR <15 ESRD - chronic treatment by dialysis or transplant No Panel InformationOrdered By: Manuel Conner on 12-18-2020 Interpretation and review of laboratory results Abnormal [employer] Phone: [employer] Phone: TroponinOrdered By: Manuel Conner on 12-18-2020 Troponin Interp NOT REPORTED [employer] Phone: Troponin T NOT REPORTED <0.03 ng/mL [employer] Phone: Troponin, High Sensitivity 71 ng/L Critically high 0 - 22 ng/L [employer] Phone: Comment on above: High Sensitivity Troponin [...] Consider advancement by 5-7 cm, if able. [employer] Phone: EXAMINATION: ONE XRA Y VIEW OF [...] cardiomegaly. Bony thorax is without acute abnormality. [employer] Phone: Roger, Mhpn Incoming R adiant Results From [employer] - 12/18/2020 1:31 PM EDT EXAMINATION: ONE [...] Consider advancement by 5-7 cm, if able. [employer] Phone: [employer] Phone: XR CHEST PORTABLEOrdered By: Manuel Conner on 12-18-2020 Mild prominence of interstitial markings suggests mild vascular congestion with mild streaky bibasilar atelectasis [employer] Phone: EXAMINATION: ONE XRA Y VIEW OF THE CHEST 12/18/2020 11:18 am COMPARISON: December 17, 2020, chest examination HISTORY: ORDERING SYSTEM PROVIDED HISTORY: Congestion TECHNOLOGIST PROVIDED HISTORY: Congestion FINDINGS: Median sternotomy. Stable cardiomegaly/mild tortuosity of the thoracic aorta Mild streaky bibasilar density. Mild prominence of interstitial markings Possible small right pleural effusion Degenerative changes of the thoracic spine/shoulders [employer] Phone: Roger, Mhpn Incoming R adiant Results From [employer] - 12/18/2020 11:26 AM EDT EXAMINATION: ONE [...] vascular congestion with mild streaky bibasilar atelectasis [employer] Phone: [employer] Phone: APTTOrdered By: Manuel lew on 12-17-2020 aPTT Coag (Bld) [Time] 22.8 s Low Me [facility] Phone: Comment on above: IV Heparin Therapy Range: 62.0-94.0 Interpretation and review of laboratory results Abnormal [employer] Phone: [employer] Phone: Blood Gas, VenousOrdered By: Manuel Conner on 12-17-2020 Shilo Test NOT REPORTED [employer] Phone: Carboxyhemoglobin NOT REPORTED 0.0 - 5.0 % [employer] Phone: Comment on above: FIO2 NOT REPORTED [employer] Phone: HCO3 (Bld) [Moles/Vol] 21.9 mmol/L Low 24.0 - 30.0 mmol/L [employer] Phone: Interpretation and review of laboratory results Abnormal [employer] Phone: Methemoglobin NOT REPORTED 0.0 - 1.9 % [employer] Phone: Mode NOT REPORTED [employer] Phone: Negative Base Excess, Angelo 5.7 mmol/L High 0.0 - 2.0 mmol/L [employer] Phone: NOTIFICATION NOT REPORTED [employer] Phone: NOTIFICATION TIME NOT REPORTED [employer] Phone: O2 Device/Flow/% NOT REPORTED [employer] Phone: Oxygen saturation in Blood 31.2 % Low 60.0 - 85.0 % [employer] Phone: Oxyhemoglobin NOT REPORTED 95.0 - 98.0 [...] on 12-17-2020 BNP Interpretation Pro-BNP Reference Range: [facility] Work Phone: Comment on above: Rule Out: <300 Pagan Zone: Age <50 300-450 Age 50-75 300-900 Age >75 300-1800 Usually represents mild to moderate HF but other cardiopulmonary causes cannot be ruled out. Rule In: Age <50 >450 Age 50-75 >900 Age >75 >1800 Natriuretic peptide B (Bld) [Mass/Vol] 1428 pg/mL High <300 [employer] Phone: Comment on above: Pro-BNP results halie ot be compared to BNP results. CBC Auto DifferentialOrdered By: Manuel Conner on 12-17-2020 Absolute Eos # 0.03 [employer] Phone: Absolute Immature Granulocyte 0.03 [employer] Phone: Absolute Lymph # 0.96 Low [employer] Phone: Absolute Moore # 0.52 [employer] Phone: Basophils (Bld) [#/Vol] 10*3/uL M [id number] Phone: Basophils/100 WBC (Bld) 0 % 0 - 2 % M [id number] Phone: Differential Type NOT REPORTED [employer] Phone: Eosinophils/100 WBC (Bld) 0 % Low 1 - 4 % [employer] Phone: Hematocrit (Bld) [Volume fraction] 37.2 % Low 40.7 - 50.3 % [employer] Phone: Hemoglobin.gastrointest inal spec 1 Ql (Stl) 11.5 g/dL Low 13.0 - 17.0 g/dL [employer] Phone: [phone] Immature granulocytes/100 WBC (Bld) 0 % 0 [employer] Phone: Interpretation and review of laboratory results Abnormal [employer] Phone: Lymphocytes/100 WBC (Bld) 11 % Low 24 - 43 % Fly[employer] Phone: MCH (RBC) [Entitic mass] 28.5 pg 25.2 - 33.5 pg Flypay Phone: MCHC (RBC) [Mass/Vol] 30.9 g/dL 28.4 - 34.8 g/dL [employer] Phone: MCV (RBC) [Entitic vol] 92.3 fL 82.6 - 102.9 fL [employer] Phone: Monocytes/100 WBC (Bld) 6 % 3 - 12 % M [id number] Phone: NRBC Automated 0.0 0.0 per 100 WBC [employer] Phone: Platelet distribution width (Bld) [Ratio] 13.0 % 11.8 - 14.4 % Flypay Phone: Platelet Estimate NOT REPORTED [employer] Phone: Platelet mean volume (Bld) [Entitic vol] NOT REPORTED 8.1 - 13.5 fL [employer] Phone: Platelets (Bld) [#/Vol] See Reflexed IPF Result [employer]pay Phone: RBC (Bld) [#/Vol] 4.03 10*6/uL Low 4.21 - 5.77 m/uL [employer] Phone: RBC (Bld) [#/Vol] NOT REPORTED [employer] Phone: Segmented neutrophils/100 WBC (Bld) 82 % High 36 - 65 % Flypay Phone: Segs Absolute 6.94 [employer]pay Phone: WBC (Bld) [#/Vol] 8.5 10*3/uL [employer] Phone: WBC (Bld) [#/Vol] NOT REPORTED [employer] Phone: Flypay Phone: COVID-19, RapidOrdered By: Agnieszka munozsloan Finneyjodie on 12-17-2020 SARS-CoV-2 (COVID-19) RNA JOYCE+probe Ql (Unsp spec) Not detected Not Detected Flypay Phone: Comment on above: Rapid NAAT: The [...] management decisions. Fact sheet for Healthcare Providers: https://www.fda.gov/media/008174/download Fact sheet for Patients: https://www.fda.gov/media/477830/download Methodology: Isothermal Nucleic Acid Amplification Specimen Description .NASOPHARYNGEAL SWAB Flypay Phone: Flypay Phone: CT HEAD WO CONTRASTOrdered B y: Manuel Conner on 12-17-2020 No acute intracrania l abnormality. 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 Minimal parenchymal volume loss. Minimal chronic microvascular disease. Flypay Phone: EXAMINATION: CT OF T HE HEAD [...] of the visualized skull or soft tissues. [employer] Work Phone: Roger, Mhpn Incoming R adiant Results From RunTitle/Allegiance - 12/17/2020 9:36 AM EDT EXAMINATION: CT OF THE HEAD WITHOUT CONTRAST 12/17/2020 9:21 am TECHNIQUE: CT of the head was performed without the administration of intravenous contrast. Dose modulation, iterative reconstruction, and/or weight based adjustment of the mA/kV was utilized to reduce the radiation dose to as low as reasonably achievable. COMPARISON: None. HISTORY: ORDERING SYSTEM PROVIDED HISTORY: ams TECHNOLOGIST PROVIDED HISTORY: [facility] Decision Support Exception - unselect if [...] parenchymal volume loss. Minimal chronic microvascular disease. Flypay Phone: Flypay Phone: Comprehensive Metabolic Pane l w/ Reflex to MGOrdered By: Manuel Conner on 12-17-2020 Albumin [Mass/Vol] 4 g/dL 3.5 - 5.2 g/dL Flypay Phone: Albumin/Globulin [Mass ratio] 1.3 {ratio} [employer]pay Phone: ALP (Bld) [Catalytic activity/Vol] 66 U/L 40 - 129 U/L Flypay Phone: ALT [Catalytic activity/Vol] 12 U/L 5 - 41 U/L [employer] Phone: Anion gap [Moles/Vol] 19 mmol/L High 9 - 17 mmol/L [employer] Phone: AST [Catalytic activity/Vol] 18 U/L <40 Flypay Phone: Bilirubin [Mass/Vol] 0.16 mg/dL Low 0.3 - 1 .2 mg/dL [employer]pay Phone: Calcium [Mass/Vol] 8.8 mg/dL 8.6 - 10. 4 mg/dL [employer]pay Phone: Chloride [Moles/Vol] 102 mmol/L 98 - 10 7 mmol/L [employer]pay Phone: CO2 [Moles/Vol] 19 mmol/L Low 20 - 31 mmol/L [employer]pay Phone: Creatinine [Mass/Vol] 6.59 mg/dL Critically high 0.7 0 - 1.20 mg/dL Fly[employer] Phone: Free PSA/Total PSA [Mass fraction] 7.0 g/dL 6.4 - 8.3 g/dL [employer]pay Phone: GFR 10 mL/min Low >60 [email or web address] Work Phone: GFR Non- 8 mL/min Low >60 [employer] Work Phone: Glucose [Mass/Vol] 197 mg/dL High 70 - 99 mg/dL Flypay Phone: Potassium [Moles/Vol] 4.6 mmol/L 3.7 - 5.3 mmol/L [employer] Phone: Sodium [Moles/Vol] 140 mmol/L 135 - 144 mmol/L [employer]pay Phone: Urea nitrogen (BldV) [Mass/Vol] 96 mg/dL Critically high 8 - 23 mg/dL Flypay Phone: Urea nitrogen/Creatinine (Bld) [Mass ratio] 15 [employer] Work Phone: EKG 12 LeadOrdered By: Kathy Conner on 12-17-2020 Atrial Rate 85 BPM Flypay Phone: P Lytle -15 degrees Flypay Phone: P-R Interval 224 ms Flypay Phone: Q-T Interval 414 ms [employer] Phone: QRS Duration 120 ms Flypay Phone: QTc Calculation (Bazett) 492 ms [employer]pay Phone: R Lytle 99 degrees Flypay Phone: T Lytle 44 degrees Flypay Phone: Ventricular Rate 85 BPM Flypay Phone: Sinus rhythm with 1s t degree A-V block Rightward axis Septal infarct , age undetermined Abnormal ECG No previous ECGs available Confirmed by JARON BERNARD ([id number]) on 12/17/2020 11:51:30 PM Flypay Phone: Roger, Mhpn Incoming E kg Results From Vyatta - 12/17/2020 11:51 PM EDT Sinus rhythm with 1st degree A-V block Rightward axis Septal infarct , age undetermined Abnormal ECG No previous ECGs available Confirmed by JARON BERNARD ([id number]) on 12/17/2020 11:51:30 PM Flypay Phone: Flypay Phone: Immature Platelet FractionOr dered By: Manuel Conner on 12-17-2020 Interpretation and review of laboratory results Abnormal Flypay Phone: Platelet, Fluorescence 110 Low Me Connect2me Phone: Platelet, Immature Fraction 4.6 % 1.1 - 10.3 % Flypay Phone: Flypay Phone: Laboratory - Chemistry and C hemistry - challengeOrdered By: Manuel Conner on 12-17-2020 GFR/1.73 sq M.predicted MDRD (S/P/Bld) [Vol rate/Area] Flypay Phone: Comment on above: Average GFR for 70 o r more years old: 75 mL/min/1.73sq m Chronic Kidney Disease: <60 mL/min/1.73sq m Kidney failure: <15 mL/min/1.73sq m eGFR calculated using average adult body mass. Additional eGFR calculator available at: http://www.Welcome Real-time.[employer]/multiple_crcl_2012.htm Stage 1: Some kidney damage normal GFR Stage 2: Mild kidney damage GFR 60-89 Stage 3: Moderate kidney damage GFR 30-59 Stage 4: Severe kidney damage GFR 15-29 Stage 5: Severe kidney damage GFR <15 ESRD - chronic treatment by dialysis or transplant Lactic AcidOrdered By: Kathy Conner on 12-17-2020 Lactate [Moles/Vol] 1.3 mmol/L 0.5 - 2. 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 Flow artifact in the proximal M1 segments of the bilateral MCAs and intracranial right ICA. The bilateral intracranial vertebral arteries are not imaged. Flypay Phone: EXAMINATION: MRA OF THE HEAD WITHOUT CONTRAST 12/17/2020 1:32 pm TECHNIQUE: MRA of the head was performed utilizing oixm-iz-uzmcvj imaging with MIP images. No intravenous contrast [...] cerebral arteries. No evidence of intracranial aneurysm. Flypay Phone: Roger, Mhpn Incoming R adiant Results From RunTitle/Rubiklouds - 12/17/2020 2:02 PM EDT EXAMINATION: MRA OF THE HEAD WITHOUT CONTRAST 12/17/2020 1:32 pm TECHNIQUE: MRA of the head was performed utilizing pmqv-uh-nrybor imaging with MIP images. No intravenous contrast [...] bilateral intracranial vertebral arteries are not imaged. Flypay Phone: Flypay Phone: MRI BRAIN WO CONTRASTOrdered By: Manuel Conner on 12-17-2020 Addendum by Cristhian Hardin MD on 12/17/2020 2:02 PM ADDENDUM: Absence of normal flow void in left vertebral artery, likely related to severe stenosis versus occlusion. Flypay Phone: No acute intracrania l abnormality. 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 Mild parenchymal volume loss. Mild chronic microvascular disease. 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 Flypay Phone: EXAMINATION: MRI OF THE BRAIN WITHOUT [...] The soft tissues demonstrate no acute abnormality. Flypay Phone: Roger, pn Incoming R adiant Results From RunTitle/Allegiance - 12/17/2020 1:55 PM EDT EXAMINATION: MRI [...] internal carotid artery, likely related to occlusion. [employer] Work Phone: [employer] Work Phone: Microscopic UrinalysisOrdere d By: Manuel Conner on 12-17-2020 - [employer] Work Phone: Amorphous, UA NOT REPORTED None [employer] Work Phone: Bacteria, UA NOT REPORTED None [employer] Work Phone: Casts UA NOT REPORTED /LPF [employer] Work Phone: Crystals, UA NOT REPORTED None /HPF [employer] Work Phone: Epithelial Cells UA 0 TO 2 Flypay Phone: Mucus, UA NOT REPORTED None [employer]pay Phone: Other Observations UA NOT REPORTED NOT REQ. [facility] Work Phone: RBC, UA 2 TO 5 [employer] Work Phone: Renal Epithelial, UA NOT REPORTED 0 /HPF [employer] Work Phone: Trichomonas, UA NOT REPORTED None Flypay Phone: WBC, UA 0 TO 2 [employer]pay Phone: Yeast, UA NOT REPORTED None Flypay Phone: [employer] Work Phone: No Panel InformationOrdered By: Manuel Conner on 12-17-2020 Interpretation and review of laboratory results Abnormal Flypay Phone: Flypay Phone: Interpretation and review of laboratory results Abnormal Flypay Phone: Flypay Phone: Protime-INROrdered By: Kathy Conner on 12-17-2020 INR Coag (Bld) [Relative time] 1.1 {INR} Flypay Phone: Comment on above: Non-therapeutic Range: INR = 0.9-1.2 Therapeutic Range: Moderate Anticoagulant Intensity: INR = 2.0-3.0 High Anticoagulant Intensity: INR = 2.5-3.5 PT Coag (PPP) [Time] 13.7 s [employer] Phone: Flypay Phone: TroponinOrdered By: Manuel Conner on 12-17-2020 Interpretation and review of laboratory results Abnormal [employer]pay Phone: Troponin Interp NOT REPORTED Flypay Phone: Troponin T NOT REPORTED <0.03 ng/mL Flypay Phone: Troponin, High Sensitivity 79 ng/L Critically high 0 - 22 ng/L [employer]pay Phone: Comment on above: High Sensitivity Troponin values cannot be compared with other Troponin methodologies. Patients with high levels of Biotin oral intake (i.e >5mg/day) may have falsely decreased Troponin levels. Samples collected within 8 hours of biotin intake may require additional information for diagnosis. [employer]pay Phone: Troponin Interp NOT REPORTED [employer]pay Phone: Troponin T NOT REPORTED <0.03 ng/mL [employer]pay Phone: Troponin, High Sensitivity 85 ng/L Critically high 0 - 22 ng/L [employer] Phone: Comment on above: High Sensitivity Troponin values cannot be compared with other Troponin methodologies. Patients with high levels of Biotin oral intake (i.e >5mg/day) may have falsely decreased Troponin levels. Samples collected within 8 hours of biotin intake may require additional information for diagnosis. Urinalysis, reflex to micros copicOrdered By: Manuel Conner on 12-17-2020 Bilirubin Urine Negative NEGATIVE Flypay Phone: Color, UA Yellow Yellow [employer] Work Phone: Glucose, Ur Negative NEGATIVE [employer] Work Phone: Interpretation and review of laboratory results Abnormal [employer]pay Phone: Ketones Ql (U) Negative NEGATIVE [employer] Work Phone: Leukocyte esterase Test strip Ql (U) Negative NEGATIVE [employer] Work Phone: Nitrite, Urine Negative NEGATIVE [employer] Work Phone: pH, UA 5.5 [employer] Work Phone: Protein, UA TRACE Abnormal NEGATIVE Flypay Phone: Specific [place], UA 1.025 High [email or web address] Work Phone: Turbidity UA Clear Clear [employer] Work Phone: Urinalysis Comments NOT REPORTED [facility] [employer] Work Phone: Urine Hgb TRACE Abnormal NEGATIVE Flypay Phone: Urobilinogen, Urine Normal Normal Flypay Phone: Flypay Phone: XR CHEST PORTABLEOrdered By: Manuel Conner on 12-17-2020 Mild streaky bibasil ar atelectasis with possible small bilateral pleural effusions Flypay Phone: EXAMINATION: ONE XRA Y VIEW OF THE CHEST 12/17/2020 9:30 am COMPARISON: None. HISTORY: ORDERING SYSTEM PROVIDED HISTORY: Congestion TECHNOLOGIST PROVIDED HISTORY: Congestion FINDINGS: Median sternotomy. Normal cardiopericardial silhouette Low volume lungs. Mild streaky bibasilar densities, possible possible small bilateral pleural effusions. Clear upper lungs Degenerative changes of the thoracic spine/shoulders [employer] Work Phone: Roger, Mhpn Incoming R adiant Results From Aplicae/Pacs - 12/17/2020 9:46 AM EDT EXAMINATION: ONE [...] atelectasis with possible small bilateral pleural effusions [employer] Work Phone: Flypay Phone: Vital Signs Date Time Vital Sign Value Performing Clinician Facility 07-03-2021 15:01-0400 Body temperature 99.32 [degF] Michael Carballo Other Phone: [facility] 07-03-2021 15:01-0400 Diastolic blood pressure 66 mm[Hg] Michael Carballo Other Phone: [facility] 07-03-2021 15:01-0400 Heart rate 80 /min Michael Carballo Other Phone: [facility] 07-03-2021 15:01-0400 Respiratory rate 22 /min Michael Carballo Other Phone: [facility] 07-03-2021 15:01-0400 SaO2% (BldA) [Mass fraction] 97 % Michael Carballo Other Phone: [facility] 07-03-2021 15:01-0400 Systolic blood pressure 127 mm[Hg] Michael Carballo Other Phone: [facility] 07-03-2021 06:30-0400 Body weight 100.5 kg Michael Carballo Other Phone: [facility] 06-27-2021 13:00-0400 Diastolic blood pressure 69 mm[Hg] MD Michael Carballo Work Phone: [facility] 06-27-2021 13:00-0400 Heart rate 87 /min MD Michael Carballo Work Phone: [facility] 06-27-2021 13:00-0400 Respiratory rate 17 /min MD Michael Carballo Work Phone: [facility] 06-27-2021 13:00-0400 SaO2% (BldA) [Mass fraction] 94 % MD Michael Carballo Work Phone: [facility] 06-27-2021 13:00-0400 Systolic blood pressure 153 mm[Hg] MD Michael Carballo Work Phone: [facility] 06-27-2021 08:00-0400 Body temperature 97.9 [degF] MD Michael Carballo Work Phone: [facility] 06-27-2021 05:44-0400 Body weight 106.5 kg MD Michael Carballo Work Phone: [facility] 06-26-2021 14:12-0400 Body height 182.88 cm MD Michael Carballo Work Phone: [facility] 06-26-2021 00:24-0400 Body height 182.88 cm MD Michael Carballo Work Phone: [facility] 06-26-2021 00:24-0400 Body mass index (BMI) [Ratio] 32.8 kg/m2 MD Michael Carballo Work Phone: [facility] 06-26-2021 00:24-0400 Body temperature 97.7 [degF] MD Michael Carballo Work Phone: [facility] 06-26-2021 00:24-0400 Body weight 109.9 kg MD Michael Carballo Work Phone: [facility] 06-26-2021 00:24-0400 Diastolic blood pressure 100 mm[Hg] MD Michael Carballo Work Phone: [facility] 06-26-2021 00:24-0400 Heart rate 88 /min MD Michael Carballo Work Phone: [facility] 06-26-2021 00:24-0400 Respiratory rate 18 /min MD Michael Carballo Work Phone: [facility] 06-26-2021 00:24-0400 SaO2% (BldA) [Mass fraction] 96 % MD Michael Carballo Work Phone: [facility] 06-26-2021 00:24-0400 Systolic blood pressure 221 mm[Hg] MD Michael Carballo Work Phone: [facility] 12-19-2020 20:01-0400 Diastolic blood pressure 64 mm[Hg] Manuel Conner MD Work Phone: [employer] Work Phone: 12-19-2020 20:01-0400 Systolic blood pressure 182 mm[Hg] Manuel Conner MD Work Phone: [employer] Work Phone: 12-19-2020 19:00-0400 Heart rate 75 /min Manuel Conner MD Work Phone: [employer] Work Phone: 12-19-2020 19:00-0400 Respiratory rate 23 /min Manuel Conner MD Work Phone: [employer] Work Phone: 12-19-2020 19:00-0400 SaO2% (BldA) [Mass fraction] 94 % Manuel Conner MD Work Phone: [employer] Work Phone: 12-18-2020 06:30-0400 Body temperature 98.29 [degF] Manuel Conner MD Work Phone: [employer] Work Phone: Encounters Encounter Date Encounter Type Care Provider Facility Start: 09-28-2022 AUDIT Michael Carballo Work Phone: JD-Wbkvcsbtxh-[facility] 260 DO Work Phone: Start: 07-24-2022 End: 07-24-[address] MICHAEL CARBALLO . Facility:[facility] Start: 07-15-2022 End: 07-15-[address] MICHAEL CARBALLO . Facility: Start: 07-13-2022 Patient encounter procedure Michael Carballo Work Phone: RG-Xyboixcrdm-HRO [facility] Work Phone: Start: 07-13-2022 Phys/qhp telephone evaluation 11-20 min Michael Carballo Work Phone: XO-Ahwhloauqc-KUX [facility] [address] Work Phone: Start: 07-13-2022 ambulatory MD SCOUT ROMO Facility:[facility] Start: 07-13-2022 End: 07-13-[address] MICHAEL CARBALLO . Facility: Start: 07-09-2022 AUDIT Michael Carballo Work Phone: NX-Pspslswzcx-XUS [facility] [address] Work Phone: Start: 06-08-2022 ambulatory Facility:[facility] Start: 06-05-2022 End: 06-05-[address] MICHAEL CARBALLO . Facility: Start: 06-04-2022 End: 06-04-[address] MICHAEL CARBALLO . Facility: Start: 04-14-2022 End: 04-15-2022 ambulatory DONNA ARELLANO [facility] Start: 04-14-2022 End: 04-14-2022 Subsequent hospital visit by physician Michael Carballo Work Phone: [facility] Start: 10-30-2021 End: 10-31-2021 ambulatory Manfred Wilson Facility:[facility] Start: 10-28-2021 End: 10-28-[address] MICHAEL CARBALLO . Facility: Start: 10-15-2021 Patient encounter procedure Michael Carballo Work Phone: VF-Fadhoaoxlw-CZT [facility] [address] [place] Work Phone: Start: 10-15-2021 ambulatory DO FELICIA ASTORGA Facility:[facility] Start: 08-05-2021 End: 08-06-[address] MICHAEL CARBALLO . Facility: Start: 07-16-2021 Office outpatient vi sit 25 minutes Michael Carballo Work Phone: XG-Ykjumgphiv-ATB [facility] [address] [place] Work Phone: Start: 07-16-2021 Patient encounter procedure Michael Carballo Work Phone: FF-Szdixdpoaq-EUJ [facility] [address] [place] Work Phone: Start: 06-27-2021 End: 07-03-2021 [id number] Start: 06-25-2021 End: 06-27-2021 Evaluation and management of inpatient MD Michael Carballo Work Phone: [facility] [place] [facility] Start: 06-25-2021 Patient encounter procedure Michael Carballo Work Phone: QL-Mvzrjnrplv-CIQ [facility] [address] [place] Work Phone: Start: 06-24-2021 End: 06-24-2021 Patient encounter procedure MD Michael Carballo Work Phone: [facility] Start: 05-28-2021 AUDIT Michael Carballo Work Phone: YF-Tbkruklftb-UMN [facility] [address] [place] Work Phone: Start: 05-27-2021 End: 05-27-2021 Patient encounter procedure MD Michael Carballo Work Phone: [facility] Start: 01-01-2021 Patient encounter procedure Michael Carballo Work Phone: DY-Jkbkewsknd-YDX [facility] [address] [place] Work Phone: Start: 01-01-2021 WANG, Provider : Felicia Astorga, Status: Pen, Time: 2:20 PM Michael Carballo Work Phone: RG-Tubciytbhv-Sublsfdq [facility] 260 DO Work Phone: Start: 12-31-2020 AUDIT Michael Carballo Work Phone: SE-Kpwmjcquhu-Kmosvdpe [facility] 260 DO Work Phone: Start: 12-17-2020 End: 12-19-2020 Emergency department patient visit Manuel Conner MD Work Phone: [facility] ED Comment on above: [place] coma scale t otal score 13-15, at hospital admission (Primary Dx); Acute kidney injury (HCC); Heart replaced by transplant (HCC); Confusion Start: 11-21-2020 AUDIT Michael Carballo Work Phone: EF-Thloviuxej-SND [facility] [address] [place] Work Phone: Start: 10-31-2020 AUDIT Michael Carballo Work Phone: [facility] Work Phone: Procedures Date Procedure Procedure Detail Performing Clinician Start: 04-14-2022 Cul bact xcpt urine blood/stool aerobic isol Donna Arellano PA-C Work Phone: Start: 06-26-2021 Duplex scan of lower limb veins MD Michael Carballo Work Phone: Start: 06-26-2021 Duplex scan veins of upper limb MD Michael Carabllo Work Phone: Start: 06-25-2021 Plain chest X-ray [...] heart recipient Heart repla vaibhav by transplant ([facility]) Manuel Conner MD Work Phone: [...] Montse Villanueva, Status: Pen, Time: 2:00 PM WZ-Qkzalnjhof-WCA [facility] [address] Work Phone: Start: 07-13-2022 VIRFUCORI, Provider : Scout Romo, Status: Pen, Time: 1:40 PM VIRFUVHOME, Provider: Scout Romo, Status: Pen, Time: 1:40 PM QX-Lzqycfnktn-VGO [facility] [address] Work Phone: Start: 04-01-2022 VIRFUCORI, Provider : Felicia Astorga, Status: Pen, Time: 1:00 PM VIRFUCORI, Provider: Felicia Astorga, Status: Pen, Time: 1:00 PM GY-Xzkerqfxja-WDC [facility] [address] [place] Work Phone: Start: 12-19-2021 Creatinine measurement Creatinine [facility] Work Phone: Start: 12-19-2021 Potassium monitoring Potassium monit [facility] Work Phone: Start: 10-20-2021 Influenza vaccination Flu vaccine (# 1) [facility] Start: 07-16-2021 Patient encounter procedure [facility] Start: 07-03-2021 End: 07-04-2022 Insulin Glargine (Lantus) Injectable Subcutaneous Once ; DOSE = 12 unit(s) SubCutaneous At BedtimeNotes from Pharmacy: [facility] Start: 03-Jul-2021 End: 03-Jul-2022 Ordered: 03-Jul-2021 Magy Galeas Intent [facility] Start: 07-01-2021 End: 07-02-2022 [facility] Comment on above: IF patient [...] End: 30-Jun-2022 Ordered: 30-Jun-2021 Jihan Storm Intent [facility] Start: 06-27-2021 End: 06-28-2022 Sodium Chloride 0.9% Injectable Flush Peripheral Line ; via Peripheral LineVolume = 10 mL IntraVenous Flush Every 8 Hours and as Needed Start: 27-Jun-2021 End: 27-Jun-2022 Ordered: 26-Jun-2021 Magy Galeas Intent [facility] Start: 06-26-2021 Duplex scan of upper limb arteries US arterial duplex [facility] Start: 12-17-2020 Annual Wellness Visi t (AWV) Annual Wellness Visit (AWV) [facility] [employer] Start: 11-20-2020 Influenza vaccination Flu vaccine (# 1) [employer] Phone: Start: 07-16-2020 COVID-19 Vaccine (3 - Pfizer risk 3-dose series) COVID-19 Vaccine (3 - Pfizer risk 3-dose series) [employer] Phone: Start: 07-16-2020 COVID-19 Vaccine (3 - Pfizer risk series) COVID-19 Vaccine (3 - Pfizer risk series) [facility] [employer] Start: 10-01-2016 Pneumococcal 65+ yrs at Risk Vaccine (2 of 2 - PCV13) Pneumococcal 65+ yrs at Risk Vaccine (2 of 2 - PCV13) [employer] Phone: Start: 10-10-1993 Shingles Vaccine (1 of 2) Shingles Vaccine (1 of 2) [employer] Phone: Start: 10-10-1962 DTaP/Tdap/Td vaccine (1 - Tdap) DTaP/Tdap/Td vaccine (1 - Tdap) [facility] Start: 10-10-1962 Shingles vaccine (1 of 2) Shingles vaccine (1 of 2) [facility] [employer] Start: 10-10-1961 Hepatitis C screening Hepatitis C [facility] [employer] [place] Start: 1955 Depression Screen Depression Screen [facility] Start: 10-10-1953 Lipid panel [facility] Start: 1943 Hepatitis C screening [facility] Work Phone: Calcium [Mass/volume ] in Serum or Plasma [facility] Work Phone: Carbon dioxide, tota l [Moles/volume] in Serum or Plasma [facility] Work Phone: Chloride [Moles/volu me] in Serum or Plasma [facility] Work Phone: Creatinine and Glomerular filtration rate.predicted panel - Serum, Plasma or Blood [facility] Work Phone: Culture, Blood [facility] Work Phone: Culture, Wound Culture, Wound Microbiology Routine 04/14/2022 3:25 PM EST LEONID MAY [facility] Work Phone: Glucose [Mass/volume ] in Serum or Plasma [facility] Work Phone: Goals of care, counseling/discussion [facility] Measurement of renal function [facility] Work Phone: Potassium [Moles/volume] in Serum or Plasma [facility] Work Phone: Sodium [Moles/volume ] in Serum or Plasma [facility] Work Phone: Tacrolimus [Mass/volume] in Blood [facility] Work Phone: End: 12-18-2020 Tacrolimus Level [facility] Work Phone: Comment on above: One Time for 1 Occur rences starting 12/18/2020 until 12/18/2020 End: 12-19-2020 Tacrolimus Level Tacrolimus Level Lab Routine One Time for 1 Occurrences starting 12/19/2020 until 12/19/2020 [facility] Phone: Comment on above: One Time for 1 Occur rences starting 12/19/2020 until 12/19/2020 Tacrolimus Level [facility] Work Phone: Urea nitrogen [Mass/volume] in Serum or Plasma [facility] Work Phone: Immunizations Immunization Date Immunization Notes Care Provider Fa cility 03-21-2021 Pfizer-BioNTech COVI D-19 Vacc 30 MCG/0.3ML Intramuscular Suspension Michael Carballo Work Phone: [facility] Heather [place]lecillo [address] [place] Work Phone: 06-18-2020 Pfizer-BioNTech COVI D-19 Vacc 30 MCG/0.3ML Intramuscular Suspension Michael Carballo Work Phone: [facility] Work Phone: 05-27-2020 Pfizer-[employer] COVI D-19 Vacc 30 MCG/0.3ML Intramuscular Suspension Michael Candelario Haris Work Phone: [facility] Work Phone: 12-29-2019 Seasonal trivalent influenza vaccine, adjuvanted, preservative free Michael Palomino Haris Work Phone: [facility] Work Phone: 12-22-2017 Seasonal trivalent influenza vaccine, adjuvanted, preservative free Michael Palomino Haris Work Phone: [facility] Work Phone: 12-28-2016 Seasonal trivalent influenza vaccine, adjuvanted, preservative free Michael Palomino Haris Work Phone: [facility] Work Phone: 12-24-2015 influenza, high dose seasonal, preservative-free Michael Palomino Haris Work Phone: [facility] Work Phone: 10-02-2015 influenza, seasonal, injectable Michael Palomino Haris Work Phone: [facility] Work Phone: 10-02-2015 pneumococcal polysaccharide vaccine, 23 valent Michael Palomino Haris Work Phone: [facility] Work Phone: 01-09-2015 influenza, injectabl e, quadrivalent, contains preservative Michael Palomino Haris Work Phone: [facility] Work Phone: 01-03-2013 influenza, seasonal, injectable Michael Palomino Haris Work Phone: [facility] Work Phone: 01-07-2009 influenza virus vacc ine, whole virus Michael Palomino Haris Work Phone: [facility] Work Phone: 01-20-2005 influenza virus vacc ine, whole virus Michael Palomino Carballo Work Phone: [facility] Work Phone: Payers Date Payer Category Payer Self-pay [id number] 1961 Medicaid [id number] 1961 Medicare [id number] 1961 Medicare [id number] 1961 Private Health Insurance [id number] 1945 Unknown [id number] 2.16.8 [id number] 1945 Unknown [id number] 2.16.84 [id number] 1943 Unknown [id number] 2.16.84 [id number] 1943 Unknown [id number] 2.16.84 [id number] 1943 Unknown [id number] 2.16.84 [id number] 1943 Unknown [id number] 2.16.84 [id number] 1943 Unknown [id number] 2.16.84 [id number] 1943 Unknown [id number] 2.16.84 [id number] 1943 Unknown [id number] 2.16. [id number] 1943 Unknown [id number] 2.16. [id number] Unknown Unknown [id number] 2.16.8 [id number] Social History Date Type Detail Facility Former smoker Former smoker [facility] Work Phone: Start: 12-17-2020 Tobacco smoking stat us INIS Unknown if ever smoked [employer] Work Phone: Start: 1945 Sex Assigned At Not on file M [facility] Work Phone: Exposure to SARS-CoV -2 (event) Unable to assess [employer] Start: 12-13-2020 [facility] Start: 1945 Sex Assigned At Male F [facility] Start: 06-26-2021 End: 06-26-2021 Tobacco smoking status NHIS Ex-smoker (finding) [facility] End: 03-22-1996 History of tobacco use [facility] Work Phone: Goals Date Patient Goal Desired Activity /State Functional Status Date Assessment Result Facility 06-27-2021 Functional status Patient at Baseline [facility] Work Phone: Functional observable [facility] Mental Status Date Assessment Result Facility 06-30-2021 Cognitive functi ons [id number] [facility] 06-27-2021 Cognitive function Cognitive Sta tus Patient at Baseline [facility] Work Phone: Clinical Notes 07-05-2000 to 07-03-2021 <item><item><item><item><item><item><item><item><item> Note Date & Type Note Facility 07-03-2021 Hospital Discharge instructions Activity:activity with assistance. May shower.Labs 1 (Modify Template):Lab Test(s): Basic Metabolic Panel, CBC, Tacrolimus levelDate To Be Drawn: 07/07/2021all Results To: Dr. Felicia Moore Results To: [id number] Orders:Blood Glucose Monitoring: ACHSAdditional Instructions: Use of [...] Uncontrolled diabetesCall to Schedule in: 2 weeksLocation[facility] App[facility] 2:Physician/Dept/Service: Dr. Felicia Astorga / Heart failure and transplantReason for Referral: hospital follow-upLocation: Heather 1800Comments: Our office will call you to set up an appointment either in person or virtually. [facility] 06-27-2021 Discharge summary Note Date/Time June 27, 2021 10:32am [facility] [address] [place] [address] Discharge Summary Signed Patient: Oliverio Escobedo MR#: [id number] : 1945 Acct:[id number] Age/Sex: 75 / M Adm Date: 2 Loc: 3T Room: [address] [place] [address]: Yoshi Hernandez MD Copies to: MD Manfred Olvera([facility] Providers Date of Discharge: 06/27/21 Discharging [...] 1 tab PO BID RF: 0 omega 7-sop-sdk-fish oil [Fish Oil] 1,000 mg (120 mg-180 [...] signed by Yoshi Hernandez MD> 06/27/21 1032 [facility] Work Phone: 1(448) 271-218804-08-2022 Progress note Author Bonilla Ortiz [facility] June 27, 2021 10:27am Note Date/Time June 27, 2021 10:2 7am [facility] [address] [place] [address] Cardiology Progress Note Signed Patient: Oliverio Escobedo MR#: [id number] : 1945 Acct:[id number] Age/Sex: 75 / M Adm Date: 2 Loc: 3T Room: [address] [place] [address] Type : ADM INOo Attending Dr: Yoshi Hernandez MD Copies to: ~ Date of Service: 06/27/2021 Subjective Principal diagnosis: Edema w history of orthotopic heart transplant Interval history: Mr. Escobedo is a 75 year old male with known history of orthotopic heart transplantation in 2000 done at [facility] who was admitted to the inpatient hospitalist service last night after presenting from the [facility] with complaints of increasing swelling in both legs and the right arm for several days. The patient is resting comfortably this morning. He did diurese gently yesterday. He currently has no cardiac complaints. His breathing feels comfortable lying flat at rest. Swelling in both feet and calves is still present. NB: The patient has been accepted by the transplant service at [facility]. At this point we are [...] Agree with transfer to transplant service at [facility] for further management. Plan Thank you very much for this kind consultation and for allowing me to participate in the care of this very pleasant patient. Time spent with patient Time Spent With Patient (min): 20 Documented By: Bonilla Ortiz MD 06/27/21 1024 Signed By: <Electronically signed by Bonilla Ortiz MD> 06/27/21 1027 [facility] Work Phone: 1(977) 589-804204-07-2022 Progress note Author Yoshi Wu [facility] June 26, 2021 6:27pm Note Date/Time June 26, 2021 6:27 pm [facility] [address] [place], [place] [id number] Hospitalist Progress Note Signed Patient: Oliverio Escobedo MR#: [id number] : 1945 Acct:[id number] Age/Sex: 75 / M Adm Date: 2 Loc: Room: [address] [place] [address] Type : ADM INOo Attending Dr: Yoshi [...] Oil 1,000 mg 06/26/21 09:00 06/26/21 09:01 [place]-3/Fish Oil 1,000 Mg Capsule PO 06/26/22 08:59 [...] signed by Yoshi Hernandez MD> 06/26/21 182 [facility] Work Phone: 1(940) 541-986104-07-2022 Consult note Author Bonilla Ortiz [facility] June 26, 2021 2:26pm Note Date/Time June 26, 2021 2:23 pm [facility] [address] [place] [address] Cardiology Consult Note Signed Patient: Oliverio Escobedo MR#: [id number] : 1945 Acct:[id number] Age/Sex: 75 / M Adm Date: 2 Loc: 3T Room: [address] [place] [address] Type : ADM INOo Attending Dr: Yoshi Hernandez MD Copies to: MD Manfred Olvera([facility]) DO Bonilla Wilson MD~ Cardiology HPI History of Present Illness Consult Date: 06/26/21 Reason for Consult: Bilateral lower extremity swelling Remote history of orthotopic heart transplantation HPI: Mr. Escobedo is a 75 year old male with known history of orthotopic heart transplantation in 2000 done at [facility] who was admitted to the inpatient hospitalist service last night after presenting from the [facility] with complaints of increasing swelling [...] the results were sent to his transplant sales representative [employer] in [place]. She doesnot know the results. On my evaluation the patient was undergoing bedside transthoracic echocardiography. Preliminary interpretation of the study shows normal resting left ventricular regional wall motion and systolic function. Ejection fraction appears greater than 55%. There is no notable pericardial or pleural effusion. There is no notable/significant valvular heart disease noted. By report the patient's transplant service at [facility] has been contacted and is requested the [...] PO BID 02/02/17 [History Confirmed 06/25/21] omega 0-yqf-xge-fish oil 1,000 mg (120 mg-180 mg) capsule [...] x10E3/uL Lymph # (Auto) 1.0 (1.00-4.8) x10E3/uL Moore # (Auto) 0.5 (0.0-0.8) x10E3/uL Eos # [...] Agree with transfer to transplant service at [facility] for further management. Code(s): Z94.1 - Heart transplant status Plan Thank you very much for this kind consultation and for allowing me to participate in the care of this very pleasant patient. Documented By: Bonilla Ortiz MD 06/26/21 1415 Signed By: <Electronically signed by Bonilla Ortiz MD> 06/26/21 1426 [facility] Work Phone: 1(113) 430-685304-07-2022 History and physical note Author Omid Myrick [facility] June 26, 2021 7:44am Note Date/Time June 26, 2021 12:1 6am [facility] [address] [place], [place] [address] Hospitalist H&P Signed Patient: Oliverio Escobedo MR#: [id number] : 1945 Acct:[id number] Age/Sex: 75 / M Adm Date: 2 Loc: 3T Room: [address] [place] [address] Type : ADM INOo Attending Dr: Yoshi Hernandez MD Copies to: MD Manfred Olvera([facility]) DO Audra Wilson APRN Marwan Wassouf, MD~ [...] schedule an appointment with [facility] sales representative [employer] but were unable. Patient is hard of [...] PO BID 02/02/17 [History Confirmed 06/25/21] omega 7-kjn-ild-fish oil 1,000 mg (120 mg-180 mg) capsule [...] % (Auto) 12.9 % (.) 06/25/21 19:30 Moore % (Auto) 7.3 % (.) 06/25/21 19:30 Eos % (Auto) 4.6 % (.) 06/25/21: Baso % (Auto) 0.6 % (.) 06/25/21: Neut # (Auto) 5.6 x10E3/uL (1.8-7.7) 06/25/21 19: Lymph # (Auto) 1.0 x10E3/uL (1.00-4.8) 06/25/21 19:30 Moore # (Auto) 0.5 x10E3/uL (0.0-0.8) 06/25/21 19: [...] MD Documented By: Audra Quinteros APRN 06/25/21 4401 Signed By: <Electronically signed by GABBIE Quinteros> 06/26/21 0057 <Electronically signed by Omid Myrick MD> 06/26/21 0338 [facility] Work Phone: 1(791) 952-358209-30-2021 Evaluation note* Diagnosis [place] coma scale total score 13-15, at hospital admission- Primary Acute kidney injury (HCC) Acute kidney failure, unspecified Heart replaced by transplant (HCC) Heart replaced by transplant Confusion Unspecified psychosis [facility] Work Phone: 1([phone]) 452-392809-30-2021 History of Present illness Narrative* 74 yo [...] trazodone, trazodone and aripirazole. Discharged back to [facility] with 2x/week home trips. * Immunosuppression: MMF 250 mg BID, tacrolimus 1.5 mg BID (FK 5.4 on 12/24/20, goal 5-8) * Rejection Hx/DSAs: None documented * Last echo: 12/20/20 KV-Zzbexhrflr-IOY Heather [place] [address] [place] Work Phone: 1([phone]) 244-253209-28-2021 History of Present illness Narrative* Liliya Baker RN - 12/17/2020 10:31 AM EDT Spoke with nurse from [facility] at this time. They will fax lab work to us from [facility]. documented in this [facility] Work Phone: [phone]) 142-868904-16-2001 History of Present illness Narrative* Mr. Escobedo [...] September 2021. He continues to live in long-term. He has started Zoloft for depression. 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 Needs assistance with transfers. He has not had any new doctors appointmetns. * Immunosuppression: MMF 250 mg BID, tacrolimus 1 mg BID (FK 11.0 on 10/10/21, goal 5-8) * Rejection Hx/DSAs: None documented * Last echo: 12/20/20 SN-Vzonbiqswi-MYH [facility] [address] Work Phone: Chief complaint Narrative - [...] 04:20 PM , for a telehealth visit. DQ-Yxajssvvav-WAR Heather [place]lec[place] [address] [place] Work Phone: Evaluation noteNo assessment information available [facility] Work Phone: Evaluation note* Diagnosis Onset Date Resolution Status Acute kidney injury acute Bilateral edema of lower extremity acute Shortness of breath acute [facility] Work Phone: Evaluation note* Diagnosis Onset Date Resolution Status Acute kidney injury acute Bilateral edema of lower extremity acute History of heart transplant acute Shortness of breath acute [facility] Work Phone: Evaluation note* Psychological: Appropriate mood [...] distress, alert and cooperative, hard of hearing [facility]* Mr. [...] trazodone, trazodone and aripirazole. Discharged back to [facility] with 2x/week home trips. * Immunosuppression: MMF 250 mg BID, tacrolimus 1.5 mg BID (FK 5.4 on 12/24/20, goal 5-8) * Rejection Hx/DSAs: None documented * Last echo: 12/20/20 UA-Ncykskopod-WSS [employer] [address] [place] Work Phone: History of Present [...] B/L LE edema. Spoke with RN at [facility]; states LE edema has been ongoing for several weeks, with a rash . * Labs drawn 06/24/21; BNP 224 * Immunosuppression: MMF 250 mg BID, tacrolimus 1.5 mg BID (FK 5.4 on 12/24/20, goal 5-8) - FK pendingfrom 06/24/21 from SNF * Rejection Hx/DSAs: None documented * Last echo: 12/20/20 HL-Ghepuvcufx-RMR [facility] [address] [place] Work Phone: History of Present [...] Hx/DSAs: None documented * Last echo: 12/20/20 HT-Tgxaqeifea-URF Heather [place]ecillo [address] [place] Work Phone: History of Present [...] Hx/DSAs: None documented * Last echo: 12/20/20 OW-Yetvubqdzu-WOF Heather Vallecillo [address] [place] Work Phone: History [...] BPs at the [facility] 120-130s/70-80s. * Benadryl 25 mg q6h PRN for itching/dry skin. 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 Relationship Specialty Start Date End Date Michael Carballo [address] [place] [address] PCP - General Specialist 12/17/20 Goals (unrecognized [...] section and content) DATE CREATED AUTHOR 07/14/2021 [facility] DATE CREATED AUTHOR AUTHOR'S ORGANIZ ATION 04/18/2022 [facility] DATE CREATED AUTHOR AUTHOR'S ORGANIZ ATION 07/17/2022 [employer] DATE CREATED AUTHOR AUTHOR'S ORGANIZ ATION 07/31/2022 [facility] DATE CREATED AUTHOR AUTHOR'S ORGANIZ ATION 09/07/2022 [facility] DATE CREATED AUTHOR AUTHOR'S ORGANIZ ATION 09/14/2022 [facility] DATE CREATED AUTHOR AUTHOR'S ORGANIZ ATION 11/21/2022 [facility] FOR RECORDS PERTAINING TO PATIENTS WHO ARE [...] BE BASED ON THE PRIMARY CLINICAL RECORDS. [facility] [employer] [facility]. provides no warranty or guarantee of the accuracy or completeness of information in this document.
[2023-11-03] MEDS: LACTATED RINGER'S SOLUTION 1,000 ML 100 ML IV (18:30)
[2023-11-03] MEDS: HYDRALAZINE HCL 25 MG TABLET 100 MG PO (18:38)
[2023-11-03 20:42] LABS: Glucometer 144 mg/dL (74-106)
[2023-11-03] MEDS: HYDRALAZINE HCL 20 MG/ML VIAL 10 MG IVP (20:42)
[2023-11-03] MEDS: LEVOFLOXACIN IN DEXTROSE 5 % 750 MG/150 ML PREMIX 100 MG IV (20:46)
[2023-11-03] MEDS: BUSPIRONE HCL 10 MG TABLET PO (22:00)
[2023-11-03] MEDS: CLONIDINE HCL 0.2 MG TABLET PO (22:00)
[2023-11-03] MEDS: DOCUSATE SODIUM 100 MG CAPSULE PO (22:00)
[2023-11-03] MEDS: DILTIAZEM HCL 300 MG CAP.ER.24H PO (22:00)
[2023-11-03] MEDS: ATORVASTATIN CALCIUM 40 MG TABLET 80 MG PO (22:00)
[2023-11-03] MEDS: INSULIN ASPART 300 UNIT/3 ML PEN SUBQ (22:08)
[2023-11-04] VITALS (19 sets, daily range): BP systolic 143–198; BP diastolic 69–98; PULSE 70–86; TEMP 36.2–36.9; O2SAT 90–93
[2023-11-04] MEDS: HYDRALAZINE HCL 25 MG TABLET 100 MG PO ×2 (03:16→11:19)
[2023-11-04] MEDS: CARBIDOPA/LEVODOPA 25 MG-100 MG TABLET 1.5 TAB PO ×3 (05:28→17:04)
[2023-11-04] MEDS: CLONIDINE HCL 0.2 MG TABLET PO (05:29)
[2023-11-04] MEDS: LACTATED RINGER'S SOLUTION 1,000 ML 100 ML IV ×2 (05:31→14:16)
[2023-11-04 07:10] LABS: Hemoglobin 8.6 g/dL (14.0-18.0); Mean Corpuscular HGB Conc 29.7 g/dL (29.9-35.2); Mean Corpuscular Hemoglobin 27.8 pg (25.9-34.0); Mean Corpuscular Volume 93.9 fL (80.0-94.0); Mean Platelet Volume 11.6 fL (9.5-13.5); Platelet Count 137 10^3/uL (150-450); Red Blood Count 3.09 10^6/uL (4.70-6.10); Red Cell Distribution Width 14.1 % (11.0-15.0); White Blood Count 7.2 10^3/uL (4.0-11.0)
[2023-11-04 07:38] LABS: Alanine Aminotransferase 8 U/L (16-63); Albumin Globulin Ratio 0.7; Albumin Level 2.7 g/dL (3.4-5.0); Alkaline Phosphatase 69 U/L (46-116); Anion Gap 14.1; Aspartate Amino Transferase 17 U/L (15-37); BUN Creatinine Ratio 15.2; Bilirubin Total 0.2 mg/dL (0.2-1.0); Calcium 8.8 mg/dL (8.5-10.1); Carbon Dioxide 27.3 mmol/L (21.0-32.0); Chloride 108 mmol/L (98-107); Estimated GFR (African America 16 (>=60); Estimated GFR (Non-African Ame 13 (>=60); Globulin 3.8 g/dL; Glucose 60 mg/dL (74-106); Potassium 4.4 mmol/L (3.5-5.1); Sodium 145 mmol/L (136-145); Total Protein 6.5 g/dL (6.4-8.2)
[2023-11-04 08:03] LABS: Eosinophils Absolute Manual 0.14 10^3/uL (0.00-0.70); Lymphocytes Absolute Manual 0.72 10^3/uL (1.20-3.80); Monocytes Absolute Manual 0.43 10^3/uL (0.30-0.80)
[2023-11-04 08:04] LABS: Anisocytosis 2+; Ovalocytes 1+
[2023-11-04 08:45] LABS: Magnesium 2.5 mg/dL (1.8-2.4)
--- NOTE | 2023-11-04 09:00 | P.PN_ITS ---
Progress Note: Subjective Subjective Interval history: Much more cooperative this morning. Still appears to be confused to his overall condition. Exam Constitutional Vital Signs, click to edit/add: Last Vital Signs Temp 97.8 F 11/04/23 08:09 Pulse 83 11/04/23 08:09 Resp 18 11/04/23 08:09 BP 197/78 H 11/04/23 08:09 Pulse Ox 93 L 11/04/23 08:09 O2 Del Method Room Air 11/04/23 04:00 Documenting provider has reviewed patient's vital signs: yes Common normals: no apparent distress (Much less agitation this morning) Respiratory Common normals: normal respiratory effort and no retractions Cardio Common normals: regular rate and regular rhythm GI Common normals: Normal to inspection, nondistended, normoactive bowel sounds present and soft to palpation; tender (Mild diffuse tenderness no rebound tenderness) Extremity Common normals: abnormal to inspection (Right-sided weakness due to previous stroke) Progress Note: Objective Labs Labs: Short CBC 11/03/23 11/04/23 Range/Units 15:09 06:13 WBC 8.2 7.2 (4.0-11.0) 10^3/uL Hgb 9.1 L 8.6 L (14.0-18.0) g/dL Hct 30.7 L 29.0 L (42.0-54.0) % Plt Count 156 137 L (150-450) 10^3/uL BMP 11/03/23 11/04/23 15:09 06:13 Sodium 140 145 Potassium 4.3 4.4 Chloride 103 108 H Carbon Dioxide 28.3 27.3 BUN 73.0 H 67.0 H Creatinine 4.97 H 4.42 H Glucose 242 H 60 L Calcium 8.9 8.8 Liver Function 11/03/23 11/04/23 Range/Units 15:09 06:13 Total Bilirubin 0.3 0.2 (0.2-1.0) mg/dL AST 14 L 17 (15-37) U/L ALT 9 L 8 L (16-63) U/L Alkaline Phosphatase 83 69 (46-116) U/L Albumin 3.0 L 2.7 L (3.4-5.0) g/dL Urine 11/03/23 Range/Units 15:56 Urine Color Lt. yellow (YELLOW) Urine Clarity Sl cloudy (CLEAR) Urine pH 6.0 (5.0-9.0) Ur Specific [place] 1.025 (1.005-1.025) Urine Protein >=300 A (NEG/TRACE) mg/dL Urine Glucose (UA) 250 A (NEGATIVE) mg/dL Progress Note: A&P Assessment and Plan (1) AMS (altered mental status): (2) DAVID (acute kidney injury): (3) CVA (cerebral vascular accident): (4) Parkinson disease: Plan Admission findings: Respiratory distress, hypertensive urgency with blood pressure greater than 200 systolic and greater than 110 diastolic, acute hypoxia with O2 sat of 87%, labs with acute renal failure as outlined above. Admitted for workup and treatment of same Hypertensive urgency-improved today but still persisting, will increase clonidine. Add low-dose carvedilol Abnormal urinalysis-on antibiotics, no elevation white blood cell count with a significant left shift consistent with bacterial process Acute renal failure-baseline creatinine of 2.17 creatinine on admission of 5, there is 230.4% above baseline. He is to continue with gentle hydration. His creatinine is improved today. BNP somewhat elevated. Not significant compared to his elevation in his creatinine. But will monitor daily, consider echocardiogram no rales on lung exam Hypermagnesemia-monitor daily Iron deficiency anemia-monitor daily-Down somewhat today, continue to monitor Thrombocytopenia-monitor daily Insulin-dependent diabetes mellitus-insulin sliding scale Prior CVA-continue with Plavix Parkinson's-continue with medications Admission status: With the degree of his renal failure and history of fluid retention, unable to hydrate quickly, medically necessary treatment will span 2 midnights. Inpatient status ?
--- NOTE | 2023-11-04 09:01 | CM.NOTE ---
Rounds made with Dr. Mendez, continue IV fluids for DAVID. 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
--- NOTE | 2023-11-04 09:35 | SWNOTE1 ---
Pt is from [facility] shelter. BRIDGET sent updates to Karma at [facility]. Updates included ED note, H&P, labs, vitals, diagnostic imaging, med list, and nursing notes.
[2023-11-04] MEDS: CARVEDILOL 3.125 MG TABLET PO ×2 (09:44→21:45)
[2023-11-04] MEDS: CHOLECALCIFEROL (VITAMIN D3) 25 MCG/1,000 UNITS TABLET PO (09:44)
[2023-11-04] MEDS: DOCUSATE SODIUM 100 MG CAPSULE PO ×2 (09:44→21:45)
[2023-11-04] MEDS: CALCITONIN,SALMON,SYNTHETIC 30 SPRAY/3.7 ML BOTTLE NS (09:44)
[2023-11-04] MEDS: BUSPIRONE HCL 10 MG TABLET PO ×2 (09:44→21:46)
[2023-11-04] MEDS: ASPIRIN 81 MG TABLET.DR PO (09:44)
[2023-11-04] MEDS: CLOPIDOGREL BISULFATE 75 MG TABLET PO (09:44)
[2023-11-04] MEDS: INSULIN DETEMIR 300 UNIT/3 ML INSULN.PEN 55 UNIT SUBQ (09:45)
[2023-11-04 11:14] LABS: Glucometer 58 mg/dL (74-106)
--- OUTSIDE RECORDS SUMMARY | 2023-11-04 12:46 | XMS_ITS | CCD ---
Author Organization [facility] Care Team Providers Care Thread Roller Name Role Phone Michael Carballo Unavailable Unavailable Unavailable Michael Carballo Primary Care Provider [phone] MD Michael Carballo Primary Care Provider JIL Davies Attending Provider DO Manfred Wilson Primary [facility] Provider [facility] Andrew Hernández Emergency Provider [phone] MD Omid Myrick Admit Provider MD Omid [...] sources) Allopurinol; Translations: [allopurinol] Drug Allergy 10-16-2018 [facility] (8 sources) ceFAZolin; Translations: [Cefazolin] Drug Allergy 06-25-2021 Rash, [facility] Comment on above: extensive fiery red and warm flat rash (1 source) Allopurinol Drug Allergy [facility] (1 source) ceFAZolin Drug Allergy [facility] (1 source) Allopurinol Drug Allergy 06-25-2021 [facility] Repository Medications Current Medications Medication Drug [...] mg Start: 11-03-2018 take 1 capsule by [facility] once daily in the evening dilTIAZem HCl ER Coated Beads 300 MG Oral Capsule Extended Release 24 Hour take 1 capsule every evening Quantity: 0 Refills: 0 Ordered: 04-Jul-2021 Felicia Astorga DO Start : 03-Nov-2018 Active Start: 11-03-2018 take 1 capsule by [facility] once daily dilTIAZem HCl ER Coated Beads 360 MG Oral Capsule Extended Release 24 Hour TAKE 1 CAPSULE Daily Quantity: 30 Refills: 11 Ordered: 03-Nov-2018 Felicia Astorga DO Start : 03-Nov-2018 Active Start: 11-03-2018 take 1 capsule by [facility] once daily dilTIAZem HCl ER Coated Beads 240 MG Oral Capsule Extended Release 24 Hour TAKE 1 CAPSULE Daily Quantity: 90 Refills: 3 Ordered: 24-Dec-2020 Felicia Astorga DO Start : 03-Nov-2018 Active Start: 10-31-2018 take 1 capsule by [facility] every twenty-four hours dilTIAZem 240 mg/24 [...] mg Start: 11-02-2018 take 1 capsule by [facility] every twelve hours Mycophenolate Mofetil 250 [...] Tamiko Dsouza Status: Discontinued Generic Substitution Allowed [place] 8-Htx-Waa-Fish Oil (Fish Oil) 1,000 mg (120 mg-180 mg) Capsule (4 sources) Start: 08-05-2017 take 1 tablet by mouth twice daily [place] 2-Kvp-Pew-Fish Oil (Fish Oil) 1,000 mg (120 mg-180 mg) Capsule Active 1 TAB PO Twice daily August 05, 2017 11:13am Start: 08-05-2017 take 1 tablet by anila th once daily [place] 8-Lfq-Ysn-Fish Oil (Fish Oil) 1,000 mg (120 mg-180 mg) Capsule Active 1 TAB PO Daily August 05, 2017 11:13am Start: 08-05-2017 take 1 tablet by anila th twice daily [place] 1-Vue-Nry-Fish Oil (Fish Oil) 1,000 mg (120 mg-180 [...] tube 2 times a day only on Tapqaq-Qergcwfmj-Tmvzmp Quantity: 24 Refills: 0 Ordered: 21-Jan-2016 Warren [...] liver damage. take 2 tablets by mo [facility] every six hours as needed for [...] Start: 10-15-2021 take 2 tablets by mo [facility] once daily busPIRone HCl - 10 MG Oral Tablet TAKE 2 TABLET Daily Quantity: 0 Refills: 0 Ordered: 15-Oct-2021 DO Start : 15-Oct-2021 Active [facility] busPIRone (BUSPAR) 15 MG [...] Allowed Start: 10-31-2018 take 1 capsule by [facility] every six hours as needed diphenhydrAMINE [...] 1 capsule by mouth twice da padmaja [place]-3 Fatty Acids (FISH OIL) 1000 MG CAPS [...] if Blood Glucose is between 251 - 92953 unit(s) if Blood Glucose is between 301 - 47280 unit(s) if Blood Glucose is between 351 [...] if Blood glucose is between 301 - 46874 unit(s) if Blood glucose is between 351 [...] 02-Jul-2021 Generic Substitution Allowed polyethylene glycol 3350 51566 mg powder for oral solution (7 sources) Osmotic Laxative Start: 10-15-2021 MiraLax Mix-I n [place] 17 GM Oral Packet MIX 1 PACKET [...] Allowed Start: 07-02-2021 take 1 capsule by [facility] every twelve hours Tacrolimus 1 MG [...] upper extremity 06-30-2021 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 VIT D 25-OH LABCORPon 2022 Vitamin D, 25-Hydroxy 29.5 ng/mL Critically low 30.0-100.0 [facility] Comment on above: Result Comment: Jennifer min D deficiency has been defined by the [place] [employer] and an Endocrine Society practice guideline as a level of serum 25-OH vitamin D less than 20 ng/mL (1,2). The Endocrine Society went on to further define vitamin D insufficiency as a level between 21 and 29 ng/mL (2). 1. IOM ([place] of [employer]). 2010. Dietary reference intakes for calcium and D. [place]: The National Academies Press. 2. Ely MF, Brad NC, Kristy ORETGA, et al. Evaluation, treatment, and prevention of vitamin D deficiency: an Endocrine Society clinical practice guideline. JCEM. 2010; 96(7):1911-30. Performed By: #### V ITADLC #### [facility] [address] [place] [address] Dr. Ronnie Pennington CBC AUTO DIFFon 07-24-2022 BASO # 0.0 103/ul Normal 0.0-0.1 [facility] Comment on above: Performed By: #### C BC #### [facility] [id number] Ronnie Pennington Basophils/100 WBC (Bld) 0.6 % Normal 0.2-2.0 [facility] Comment on above: Performed By: #### C BC #### [facility] [address] [address] [address] Ronnie Pennington EO # 0.1 103/ul Normal 0.0-0.7 [facility] Comment on above: Performed By: #### C BC #### [facility] [address] [address] [address] Ronnie Pennington Eosinophils/100 WBC (Bld) 2.0 % Normal 0.9-7.0 [facility] Comment on above: Performed By: #### C BC #### [facility] [address] [place] [address] Dr. Ronnie Pennington Erythrocyte distribution width (RBC) [Ratio] 13.2 % Normal 11.0-15.0 [facility] Comment on above: Performed By: #### C BC #### [facility] [address] [place] [address] Dr. Ronnie Pennington Hematocrit (Bld) [Volume fraction] 33.3 % Critically low 42.0-54.0 [facility] Comment on above: Performed By: #### C BC #### [facility] [address] [place] [address] Dr. Ronnie Pennington Hemoglobin (Bld) [Mass/Vol] 10.0 g/dL Critically low 14.0-18.0 [facility] Comment on above: Performed By: #### C BC #### [facility] [address] [address] [address] Ronnie Pennington IG # 0.04 10e3/ul Critically high 0.00-0.03 [facility] Comment on above: Performed By: #### C BC #### [facility] [address] [address] [address] Ronnie Pennington IG % 0.6 % Critically high 0.0-0.5 [facility] Comment on above: Performed By: #### C BC #### [facility] [address] [place] [address] Dr. Ronnie Pennington LYMPH # 1.2 103/ul Normal 1.2-3.8 [facility] Comment on above: Performed By: #### C BC #### [facility] [address] [place] [address] Dr. Ronnie Pennington Lymphocytes/100 WBC (Bld) 17.9 % Critically low 20.5-60.0 [facility] Comment on above: Performed By: #### C BC #### [facility] [address] [place] [address] Dr. Ronnie Pennington MANUAL DIFF REQ NO Normal [facility] Comment on above: Performed By: #### C BC #### [facility] [address] [place] [address] Dr. Ronnie Pennington MCH (RBC) [Entitic mass] 28.2 pg Normal 25.9-34.0 [facility] Comment on above: Performed By: #### C BC #### [facility] [address] [place] [address] Dr. Ronnie Pennington MCHC (RBC) [Mass/Vol] 30.0 g/dL Normal 29.9-35.2 [facility] Comment on above: Performed By: #### C BC #### [facility] [address] [place] [address] Dr. Ronnie Pennington MCV (RBC) [Entitic vol] 94.1 fL Critically high 80.0-94 .0 [facility] Comment on above: Performed By: #### C BC #### [facility] [address] [place] [address] Dr. Ronnie Pennington MONO # 0.4 103/ul Normal 0.3-0.8 [facility] Comment on above: Performed By: #### C BC #### [facility] [address] [place] [address] Dr. Ronnie Pennington Monocytes/100 WBC (Bld) 6.5 % Normal 1.7-12.0 [facility] Comment on above: Performed By: #### C BC #### [facility] [address] [place], [place] [id number] Dr. Ronnie Pennington NEUT # 4.8 103/ul Normal 1.4-6.5 [facility] Comment on above: Performed By: #### C BC #### [facility] [address] [place] [address] Dr. Ronnie Pennington Neutrophils/100 WBC (Bld) 72.4 % Normal 43.0-75.0 [facility] Comment on above: Performed By: #### C BC #### [facility] [address] [place] [address] Dr. Ronnie Pennington Platelet mean volume (Bld) [Entitic vol] 11.7 fL Normal 9.5-13.5 [facility] Comment on above: Performed By: #### C BC #### [facility] [address] [place] [address] Dr. Ronnie Pennington PLT 137 103/ul Critically low 150-450 [facility] Comment on above: Performed By: #### C BC #### [facility] [address] [place] [address] Dr. Ronnie Pennington RBC 3.54 106/ul Critically low 4.70-6.10 [facility] Comment on above: Performed By: #### C BC #### [facility] [address] [place] [address] Dr. Ronnie Pennington WBC 6.6 103/ul Normal 4.0-11.0 [facility] Comment on above: Performed By: #### C BC #### [facility] [address] [place] [address] Dr. Ronnie Pennington GLYCOHEMOGLOBIN A1Con 2022 ADA RECOMMENDATION SEE BELOW Normal [facility] Comment on above: Result Comment: ADA RECOMMENDED LIMIT 4.0 - 6.0 ADA THERAPEUTIC TARGET < 7.0 ACTION SUGGESTED > 7.0 Performed By: #### A 1C #### [facility] [address] [place] [address] Dr. Ronnie Pennington Glucose [Mass/Vol] 171 mg/dL Normal [facility] Comment on above: Performed By: #### A 1C #### [facility] [address] [place] [address] Dr. Ronnie Pennington HbA1c (Bld) [Mass fraction] 7.6 % Critically high 4.5-6.2 [facility] Comment on above: Performed By: #### A 1C #### [facility] [address] [address] [address] Ronnie Pennington MAGNESIUMon 07-24-2022 Magnesium [Mass/Vol] 2.3 mg/dL Normal 1.8-2.4 [facility] Comment on above: Performed By: #### M G, TSH, CMP ####[facility] [address] [address]DrFreddy Pennington PROF 14(COMP METB)on 023 Albumin [Mass/Vol] 2.8 g/dL Critically low 3.4-5.0 [facility] Comment on above: Performed By: #### M G, TSH, CMP ####[facility] [address] [address]DrFreddy Pennington Albumin/Globulin [Mass ratio] 0.7 {ratio} Normal [facility] Comment on above: Performed By: #### M G, TSH, CMP ####[facility] [address] [address]Dr. Ronnie Pennington ALP [Catalytic activity/Vol] 69 U/L Normal 46-116 [facility] Comment on above: Performed By: #### M G, TSH, CMP ####[facility] [address] [address]DrFreddy Pennington ALT [Catalytic activity/Vol] 8 U/L Critically low 16-63 [facility] Comment on above: Performed By: #### M G, TSH, CMP ####[facility] [address] [id number]. Ronnie Pennington Anion gap [Moles/Vol] 9.9 mmol/L Normal [facility] Comment on above: Performed By: #### M G, TSH, CMP ####[facility] [address] [address]Dr. Ronnie Pennington AST [Catalytic activity/Vol] 9 U/L Critically low 15-37 [facility] Comment on above: Performed By: #### M G, TSH, CMP ####[facility] [address] [address]Dr. Ronnie Pennington Bilirubin [Mass/Vol] 0.2 mg/dL Normal 0.2-1.0 [facility] Comment on above: Performed By: #### M G, TSH, CMP ####[facility] [address] [place], [place] [address]Dr. Ronnie Pennington Calcium [Mass/Vol] 8.9 mg/dL Normal 8.5-10.1 [facility] Comment on above: Performed By: #### M G, TSH, CMP ####[facility] [address] [place], [place] [address]Dr. Ronnie Pennington Chloride [Moles/Vol] 104 mmol/L Normal 98-107 [facility] Comment on above: Performed By: #### M G, TSH, CMP ####[facility] [address] [place], [place] [address]Dr. Ronnie Pennington CO2 [Moles/Vol] 28.4 mmol/L Normal 21.0-32.0 [facility] Comment on above: Performed By: #### M G, TSH, CMP ####[facility] [address] [place], [place] [address]Dr. Ronnie Pennington Creatinine [Mass/Vol] 2.09 mg/dL Critically high 0.70-1.30 [facility] Comment on above: Performed By: #### M G, TSH, CMP ####[facility] [address] [place], [place] [address]Dr. Ronnie Pennington EGFR-AF COLOMBIAN 37 mL/min/1.73m2 Critically low >=60 [facility] Comment on above: Performed By: #### M G, TSH, CMP ####[facility] [address] [place], [place] [address]Dr. Ronnie Pennington EGFR-NON AF COLOMBIAN 31 mL/min/1.73m2 Critically low >=60 [facility] Comment on above: Performed By: #### M G, TSH, CMP ####[facility] [address] [id number][address] Ronnie Pennington Globulin (S) [Mass/Vol] 3.9 g/dL Normal [facility] Comment on above: Performed By: #### M G, TSH, CMP ####[facility] [address] [address]Dr. Ronnie Pennington Glucose [Mass/Vol] 165 mg/dL Critically high 74-106 [facility] Comment on above: Performed By: #### M G, TSH, CMP ####[facility] [address] [address]Dr. Ronnie Pennington Potassium [Moles/Vol] 4.3 mmol/L Normal 3.5-5.1 [facility] Comment on above: Performed By: #### M G, TSH, CMP ####[facility] [address] [place], [place] [address]Dr. Ronnie Pennington Protein [Mass/Vol] 6.7 g/dL Normal 6.4-8.2 [facility] Comment on above: Performed By: #### M G, TSH, CMP ####[facility] [address] [place], [place] [address]Dr. Ronnie Pennington Sodium [Moles/Vol] 138 mmol/L Normal 136-145 [facility] Comment on above: Performed By: #### M G, TSH, CMP ####[facility] [address] [place], [place] [address]Dr. Ronnie Pennington Urea nitrogen [Mass/Vol] 33.0 mg/dL Critically high 7.0-18.0 [facility] Comment on above: Performed By: #### M G, TSH, CMP ####[facility] [address] [place], [place] [address]Dr. Ronnie Pennington Urea nitrogen/Creatinine [Mass ratio] 15.8 mg/mg Normal [facility] Comment on above: Performed By: #### M G, TSH, CMP ####[facility] [address] [place], [place] [address]Dr. Ronnie Gorge TSHon 07-24-2022 TSH 2.763 uIU/mL Normal 0.358-3.74 0 [facility] Comment on above: Performed By: #### M G, TSH, CMP ####[facility] [address] [address]Dr. Ronnie Pennington FK506 (TACROLIMUS) WHOLE BLO ODon 07-15-2022 Tacrolimus (FK506), Blood 9.4 ng/mL Normal 2.0-20.0 [facility] Comment on above: Result Comment: Trou gh (immediately following transplant) 15.0 . Trough (steady state, 2 weeks or more after transplant): 3.0 - 8.0 . Performed by LC-MS/MS technology. Performed By: #### F K506T #### [facility] [address] [place] [address] Dr. Ronnie Pennington CBC AUTO DIFFon 07-13-2022 BASO # 0.0 103/ul Normal 0.0-0.1 [facility] Comment on above: Performed By: #### C BC #### [facility] [address] [place] [address] Dr. Ronnie Pennington Basophils/100 WBC (Bld) 0.3 % Normal 0.2-2.0 [facility] Comment on above: Performed By: #### C BC #### [facility] [address] [place] [address] Dr. Ronnie Pennington EO # 0.2 103/ul Normal 0.0-0.7 [facility] Comment on above: Performed By: #### C BC #### [facility] [address] [place] [address] Dr. Ronnie Pennington Eosinophils/100 WBC (Bld) 2.5 % Normal 0.9-7.0 [facility] Comment on above: Performed By: #### C BC #### [facility] [address] [place] [address] Dr. Ronnie Pennington Erythrocyte distribution width (RBC) [Ratio] 13.1 % Normal 11.0-15.0 [facility] Comment on above: Performed By: #### C BC #### [facility] [address] [place] [address] Dr. Ronnie Pennington Hematocrit (Bld) [Volume fraction] 33.4 % Critically low 42.0-54.0 [facility] Comment on above: Performed By: #### C BC #### [facility] [address] [place] [address] Dr. Ronnie Pennington Hemoglobin (Bld) [Mass/Vol] 10.4 g/dL Critically low 14.0-18.0 [facility] Comment on above: Performed By: #### C BC #### [facility] [address] [address] [address] Ronnie Pennington IG # 0.04 10e3/ul Critically high 0.00-0.03 [facility] Comment on above: Performed By: #### C BC #### [facility] [address] [place] [address] Dr. Ronnie Pennington IG % 0.6 % Critically high 0.0-0.5 [facility] Comment on above: Performed By: #### C BC #### [facility] [address] [place] [address] Dr. Ronnie Pennington LYMPH # 1.2 103/ul Normal 1.2-3.8 [facility] Comment on above: Performed By: #### C BC #### [facility] [address] [place] [address] Dr. Ronnie Pennington Lymphocytes/100 WBC (Bld) 16.8 % Critically low 20.5-60.0 [facility] Comment on above: Performed By: #### C BC #### [facility] [address] [place] [address] Dr. Ronnie Pennington MANUAL DIFF REQ NO Normal [facility] Comment on above: Performed By: #### C BC #### [facility] [address] [place] [address] Dr. Ronnie Pennington MCH (RBC) [Entitic mass] 28.5 pg Normal 25.9-34.0 [facility] Comment on above: Performed By: #### C BC #### [facility] [address] [place] [address] Dr. Ronnie Pennington MCHC (RBC) [Mass/Vol] 31.1 g/dL Normal 29.9-35.2 [facility] Comment on above: Performed By: #### C BC #### [facility] [address] [place] [address] Dr. Ronnie Pennington MCV (RBC) [Entitic vol] 91.5 fL Normal 80.0-94.0 [facility] Comment on above: Performed By: #### C BC #### [facility] [address] [place] [address] Dr. Ronnie Pennington MONO # 0.5 103/ul Normal 0.3-0.8 [facility] Comment on above: Performed By: #### C BC #### [facility] [address] [place] [address] Dr. Ronnie Pennington Monocytes/100 WBC (Bld) 7.5 % Normal 1.7-12.0 [facility] Comment on above: Performed By: #### C BC #### [facility] [address] [place] [address] Dr. Ronnie Pennington NEUT # 5.0 103/ul Normal 1.4-6.5 [facility] Comment on above: Performed By: #### C BC #### [facility] [address] [place] [address] Dr. Ronnie Pennington Neutrophils/100 WBC (Bld) 72.3 % Normal 43.0-75.0 [facility] Comment on above: Performed By: #### C BC #### [facility] [address] [place] [address] Dr. Ronnie Pennington Platelet mean volume (Bld) [Entitic vol] 11.8 fL Normal 9.5-13.5 [facility] Comment on above: Performed By: #### C BC #### [facility] [address] [place] [address] Dr. Ronnie [place] PLT 126 103/ul Critically low 150-450 [facility] Comment on above: Performed By: #### C BC #### [facility] [address] [place] [address] Dr. Ronnie Pennington RBC 3.65 106/ul Critically low 4.70-6.10 [facility] Comment on above: Performed By: #### C BC #### [facility] [address] [address] [address] Ronnie Pennington WBC 6.9 103/ul Normal 4.0-11.0 [facility] Comment on above: Performed By: #### C BC #### [facility] [address] [address] [address] Ronnie Pennington MAGNESIUMon 07-13-2022 Magnesium [Mass/Vol] 2.1 mg/dL Normal 1.8-2.4 [facility] Comment on above: Performed By: #### C MP, MG #### [facility] [address] [address] [address] Ronnie Pennington Office Visit (Cardiology)on 07-13-2022 Follow-up visit Patient Instructions -Please bring a list of your medications to every appointment. -We will schedule you a follow up appointment in # months. We will call you with this date. -If you have any questions, please do not hesitate to contact our office at [phone]. For after hours issues, please call [phone]. Chief Complaint OLIVERIO ESCOBEDO is being seen [...] September 2021. He continues to live in correction. He has started Zoloft for depression. He [...] TabletTake 1 tablet twice daily MiraLax Mix-In [place] 17 GM Oral PacketMIX 1 PACKET in [...] Albumin [Mass/Vol] 2.9 g/dL Critically low 3.4-5.0 [facility] Comment on above: Performed By: #### C MP, MG #### [facility] [address] [place] [address] Dr. Ronnie Pennington Albumin/Globulin [Mass ratio] 0.7 {ratio} Normal [facility] Comment on above: Performed By: #### C MP, MG #### [facility] [address] [place] [address] Dr. Ronnie Pennington ALP [Catalytic activity/Vol] 71 U/L Normal 46-116 [facility] Comment on above: Performed By: #### C MP, MG #### [facility] [address] [place] [address] Dr. Ronnie Pennington ALT [Catalytic activity/Vol] 12 U/L Critically low 16-63 [facility] Comment on above: Performed By: #### C MP, MG #### [facility] [address] [place] [address] Dr. Ronnie Pennington Anion gap [Moles/Vol] 15.1 mmol/L Normal [facility] Comment on above: Performed By: #### C MP, MG #### [facility] [address] [place] [address] Dr. Ronnie Pennington AST [Catalytic activity/Vol] 11 U/L Critically low 15-37 [facility] Comment on above: Performed By: #### C MP, MG #### [facility] [address] [place] [address] Dr. Ronnie Pennington Bilirubin [Mass/Vol] 0.2 mg/dL Normal 0.2-1.0 [facility] Comment on above: Performed By: #### C MP, MG #### [facility] [address] [place] [address] Dr. Ronnie Pennington Calcium [Mass/Vol] 9.2 mg/dL Normal 8.5-10.1 [facility] Comment on above: Performed By: #### C MP, MG #### [facility] [address] [place] [address] Dr. Ronnie Pennington Chloride [Moles/Vol] 105 mmol/L Normal 98-107 [facility] Comment on above: Performed By: #### C MP, MG #### [facility] [address] [place] [address] Dr. Ronnie Pennington CO2 [Moles/Vol] 28.1 mmol/L Normal 21.0-32.0 [facility] Comment on above: Performed By: #### C MP, MG #### [facility] [address] [place] [address] Dr. Ronnie Pennington Creatinine [Mass/Vol] 2.14 mg/dL Critically high 0.70-1.30 [facility] Comment on above: Performed By: #### C MP, MG #### [facility] [address] [place] [address] Dr. Ronnie Pennington EGFR-AF COLOMBIAN 36 mL/min/1.73m2 Critically low >=60 [facility] Comment on above: Performed By: #### C MP, MG #### [facility] [address] [place] [address] Dr. Ronnie Pennington EGFR-NON AF COLOMBIAN 30 mL/min/1.73m2 Critically low >=60 [facility] Comment on above: Performed By: #### C MP, MG #### [facility] [address] [place] [address] Dr. Ronnie Pennington Globulin (S) [Mass/Vol] 4.0 g/dL Normal [facility] Comment on above: Performed By: #### C MP, MG #### [facility] [address] [place] [address] Dr. Ronnie Pennington Glucose [Mass/Vol] 150 mg/dL Critically high 74-106 [facility] Comment on above: Performed By: #### C MP, MG #### [facility] [address] [place] [address] Dr. Ronnie Pennington Potassium [Moles/Vol] 4.2 mmol/L Normal 3.5-5.1 [facility] Comment on above: Performed By: #### C MP, MG #### [facility] [address] [address] [address] Ronnie Pennington Protein [Mass/Vol] 6.9 g/dL Normal 6.4-8.2 [facility] Comment on above: Performed By: #### C MP, MG #### [facility] [address] [address] [address] Ronnie Pennington Sodium [Moles/Vol] 144 mmol/L Normal 136-145 [facility] Comment on above: Performed By: #### C MP, MG #### [facility] [address] [address] [address] Ronnie Pennington Urea nitrogen [Mass/Vol] 32.0 mg/dL Critically high 7.0-18.0 [facility] Comment on above: Performed By: #### C MP, MG #### [facility] [address] [address] [address] Ronnie Pennington Urea nitrogen/Creatinine [Mass ratio] 15.0 mg/mg Normal [facility] Comment on above: Performed By: #### C MP, MG #### [facility] [address] [address] [address] Ronnie Pennington Transplant SW Assessment Upd [...] Jul 15 2022 12:57PM EST (Author) Normal [employer] Consultation Noteon 06-10-19 Consultation Note [id number]:[id number] [facility] TSHon 06-05-2022 TSH 3.293 uIU/mL Normal 0.358-3.74 0 [facility] Comment on above: Performed By: #### T SH #### [facility] [address] [address] [address] Ronnie Pennington Cult,Woundon 04-19-2022 Cult,Wound Specimen [...] Tetracycline <=1 SUSCEPTIBLE Trimethoprim/Sulfa <=10 SUSCEPTIBLE Susceptible [facility] Comment on above: Performed By: #### W W[place] #### [facility] [address] [place] [address] [employer] Firer: David Gonzalez MD PROF CHEM 8 (MERGED WITH [facility])on Anion gap [Moles/Vol] 14.9 mmol/L Normal [facility] Comment on above: Performed By: #### B MP #### [facility] [address] [address] [address] Ronnie Pennington Calcium [Mass/Vol] 8.8 mg/dL Normal 8.5-10.1 [facility] Comment on above: Performed By: #### B MP #### [facility] [address] [address] [address] Ronnie Pennington Chloride [Moles/Vol] 104 mmol/L Normal 98-107 [facility] Comment on above: Performed By: #### B MP #### [facility] [address] [address] [address] Ronnie Pennington CO2 [Moles/Vol] 26.6 mmol/L Normal 21.0-32.0 [facility] Comment on above: Performed By: #### B MP #### [facility] [address] [address] [address] Ronnie Pennington Creatinine [Mass/Vol] 2.03 mg/dL Critically high 0.70-1.30 [facility] Comment on above: Performed By: #### B MP #### [facility] [address] [address] [address] Ronnie Pennington EGFR-AF COLOMBIAN 39 mL/min/1.73m2 Critically low >=60 [facility] Comment on above: Performed By: #### B MP #### [facility] [address] [address] [address] Ronnie Pennington EGFR-NON AF COLOMBIAN 32 mL/min/1.73m2 Critically low >=60 [facility] Comment on above: Performed By: #### B MP #### [facility] [address] [address] [address] Ronnie Pennington Glucose [Mass/Vol] 209 mg/dL Critically high 74-106 [facility] Comment on above: Performed By: #### B MP #### [facility] [address] [address] [address] Ronnie Pennington Potassium [Moles/Vol] 4.5 mmol/L Normal 3.5-5.1 [facility] Comment on above: Performed By: #### B MP #### [facility] [address] [address] [address] Ronnie Pennington Sodium [Moles/Vol] 141 mmol/L Normal 136-145 [facility] Comment on above: Performed By: #### B MP #### [facility] [address] [address] [address] Ronnie Pennington Urea nitrogen [Mass/Vol] 26.0 mg/dL Critically high 7.0-18.0 [facility] Comment on above: Performed By: #### B MP #### [facility] [address] [address] [address] Ronnie Pennington Urea nitrogen/Creatinine [Mass ratio] 12.8 mg/mg Normal [facility] Comment on above: Performed By: #### B MP #### [facility] [address] [address] [address] Ronnie Pennington Office Visit (Cardiology)on 10-15-2021 [...] BPs at the [facility] 120-130s/70-80s. Benadryl 25 mg q6h [...] JARON NESS Date: 2021-08-05 15:10 Normal [facility] CBC AND DIFFERENTIALon 07-13 % AUTOMATED IMMATURE GRAN 0.5 % Normal 0.0 - 0.9 [facility] Comment on above: Result Comment: Crhistal ture Granulocyte Count (IG) includes promyelocytes, myelocytes and metamyelocytes but does not include bands. Percent differential counts (%) should be interpreted in the context of the absolute cell counts (cells/L). Performed By: #### C BCDF #### [address] [address] Basophils (Bld) [#/Vol] 0.02 10*3/uL Normal 0.00 - 0.10 [facility] Comment on above: Performed By: #### C BCDF #### [address] [address] Basophils/100 WBC (Bld) 0.3 % Normal 0.0 - 2.0 [facility] Comment on above: Performed By: #### C BCDF #### [address] [address] Eosinophils (Bld) [#/Vol] 0.07 10*3/uL Normal 0.00 - 0.40 [facility] Comment on above: Performed By: #### C BCDF #### [address] [address] Eosinophils/100 WBC (Bld) 0.9 % Normal 0.0 - 6.0 [facility] Comment on above: Performed By: #### C BCDF #### [address] [address] Erythrocyte distribution width (RBC) [Ratio] 14.4 % Normal 11.5 - 14.5 [facility] Comment on above: Performed By: #### C BCDF #### [address] [address] Hematocrit (Bld) [Volume fraction] 35.5 % Low 41.0 - 52.0 [facility] Comment on above: Performed By: #### C BCDF #### [address] [address] Hemoglobin (Bld) [Mass/Vol] 10.8 g/dL Low 13.5 - 17.5 [facility] Comment on above: Performed By: #### C BCDF #### [address] [address] Lymphocytes (Bld) [#/Vol] 0.42 10*3/uL Low 0.80 - 3.00 [facility] Comment on above: Performed By: #### C BCDF #### [address] [address] Lymphocytes/100 WBC (Bld) 5.6 % Normal 13.0 - 44.0 [facility] Comment on above: Performed By: #### C BCDF #### [address] [address] MCHC (RBC) [Mass/Vol] 30.4 g/dL Low 32.0 - 36.0 [facility] Comment on above: Performed By: #### C BCDF #### [address] [address] MCV (RBC) [Entitic vol] 89 fL Normal 80 - 100 [facility] Comment on above: Performed By: #### C BCDF #### [address] [address] Monocytes (Bld) [#/Vol] 0.07 10*3/uL Normal 0.05 - 0.80 [facility] Comment on above: Performed By: #### C BCDF #### [address] [address] Monocytes/100 WBC (Bld) 0.9 % Normal 2.0 - 10.0 [facility] Comment on above: Performed By: #### C BCDF #### [address] [place] [address] Neutrophils (Bld) [#/Vol] 6.82 10*3/uL High 1.60 - 5.50 [facility] Comment on above: Performed By: #### C BCDF #### [address] [address] Neutrophils/100 WBC (Bld) 91.8 % Normal 40.0 - 80.0 [facility] Comment on above: Performed By: #### C BCDF #### [address] [address] NUCLEATED RBC 0.0 /100 WBC Normal 0.0 - 0.0 [facility] Comment on above: Performed By: #### C BCDF #### [address] [address] Platelets (Bld) [#/Vol] 161 10*3/uL Normal 150 - 450 [facility] Comment on above: Performed By: #### C BCDF #### [address] [address] RBC 3.98 x10E12/L Low 4.50 - 5.90 [facility] Comment on above: Performed By: #### C BCDF #### [address] [address] WBC (Bld) [#/Vol] 7.4 10*3/uL Normal 4.4 - 11.3 [facility] Comment on above: Performed By: #### C BCDF #### [address] [address] Complete Blood Count + Diffe rentialon 07-13-2021 Basophils/100 WBC (Bld) 0.3 % 0.0 - 2.0 [facility] [address] [place] Work Phone: Erythrocyte distribution width (RBC) [Ratio] 14.4 % See Below [facility] [address] [place] Work Phone: Comment on above: Reference Range: 11. 5 - 14.5 Hematocrit (Bld) [Volume fraction] 35.5 % below low threshold See Below [facility] [address] [place] Work Phone: Comment on [...] % 2.0 - 10.0 [facility] [address] [place] Work Phone: Neutrophils/100 WBC (Bld) 91.8 % See Below [facility] [address] [place] Work Phone: Comment on above: Reference Range: 40. 0 - 80.0 Platelets (Bld) [#/Vol] 161 10*3/uL 150 - 450 [facility] [address] [place] Work Phone: RBC (Bld) [#/Vol] 3.98 {x10E12/L} below low threshold See Below [facility] [address] [place] Work Phone: Comment on above: Reference Range: 4.5 0 - 5.90 WBC (Bld) [#/Vol] 7.4 10*3/uL 4.4 - 11.3 [facility] [employer] [address] [place] Work Phone: Complete Blood Count + Differential 0.02 {x10E9/L} See Below [facility] [address] [place] Work Phone: Comment on above: Reference Range: 0.0 0 - 0.10 Complete Blood Count + Differential 0.07 {x10E9/L} See Below [facility] [address] [place] Work Phone: Comment on above: Reference Range: 0.0 0 - 0.40 Reference Range: 0.0 5 - 0.80 Complete Blood Count + Differential 0.42 {x10E9/L} below low threshold See Below [facility] [address] [place] Work Phone: Comment on above: Reference Range: 0.8 0 - 3.00 Complete Blood Count + Differential 6.82 {x10E9/L} above high threshold See Below [facility] [address] [place] Work Phone: Comment on above: Reference Range: 1.6 0 - 5.50 Complete Blood Count + Differential 0.9 % 0.0 - 6.0 [facility] [address] [place] Work Phone: Complete Blood Count + Differential 0.5 % 0.0 - 0.9 [facility] [place] Work Phone: Comment on above: Immature Granulocyte Count (IG) includes promyelocytes, myelocytes and metamyelocytes but does not include bands. Percent differential counts (%) should be interpreted in the context of the absolute cell counts (cells/L). Complete Blood Count + Differential 0.0 {/100_WBC} 0.0 - 0.0 [facility] [address] [place] Work Phone: Coronavirus 2019 RNA [...] Authorization (EUA) and has been verified by [facility] ([facility]). This test is only authorized for the duration of time that circumstances exist to justify the authorization of the emergency use of in vitro diagnostic tests for the detection of SARS-CoV-2 virus and/or diagnosis of COVID-19 infection under section 564(b)(1) of the Act, 21 U.S.C. 360bbb-3(b)(1), unless the authorization is terminated or revoked sooner. [facility] is certified under CLIA-88 as qualified to perform high complexity testing. Testing is performed in the [facility] located at [address] [place] [address].SARS-CoV-2/Flu/RSV Multiplex Test: Fact sheet for providers: https://www.fda.gov/media/307365/downloadFact sheet for patients: https://www.fda.gov/media/322955/download Laboratory - Chemistry and C hemistry - challengeon 07-03-2021 Glucose [Mass/Vol] 330 mg/dL above high threshold 74 - 99 [facility] [address] [place] Work Phone: Glucose [Mass/Vol] 277 mg/dL above high threshold 74 - 99 [facility] [address] [place] Work Phone: Anion gap [Moles/Vol] 15 mmol/L 10 - 20 [facility] [address] [place] Work Phone: Calcium [Mass/Vol] [...] high threshold 74 - 99 [facility] [address] [place] Work Phone: Potassium [Moles/Vol] 3.9 mmol/L 3.5 - 5.3 [facility] [address] [place] Work Phone: [phone] Sodium [Moles/Vol] 138 mmol/L 136 - 145 [facility] [address] [place] Work Phone: [phone] Urea nitrogen [Mass/Vol] 35 mg/dL above high threshold 6 - 23 [facility] [address] [place] Work Phone: Laboratory - Hematology and Cell countson 07-03-2021 Erythrocyte distribution width (RBC) [Ratio] 13.7 % See Below [facility] [address] [place] Work Phone: Comment on [...] below low threshold See Below [facility] [address] [place] Work Phone: Comment on above: Reference Range: 32. 0 - 36.0 MCV (RBC) [Entitic vol] 89 fL 80 - 100 [facility] [address] [place] Work Phone: Platelets (Bld) [#/Vol] 171 10*3/uL 150 - 450 [facility] [address] [place] Work Phone: RBC (Bld) [#/Vol] 3.94 {x10E12/L} below low threshold See Below [facility] [address] [place] Work Phone: Comment on above: Reference Range: 4.5 0 - 5.90 WBC (Bld) [#/Vol] 6.0 10*3/uL 4.4 - 11.3 [facility] [address] [place] Work Phone: No Panel Informationon 07-03 38 {mL/min/1.73m2} Abnormal >90 [facility] [address] [place] Work Phone: Comment on above: CALCULATIONS OF ERNST MATED GFR ARE PERFORMED USING THE 2020 CKD-EPI STUDY REFIT EQUATION WITHOUT THE RACE VARIABLE FOR THE IDMS-TRACEABLE CREATININE METHODS.https://jasn.asnjournals.org/content/early// ASN.1697879727 0.0 {/100_WBC} 0.0-0.0 [facility] [address] [place] Work Phone: Tacrolimuson 07-03-2021 Tacrolimus (Bld) [Mass/Vol] 5.5 ng/mL 2.0 - 15.0 [facility] [address] [place] Work Phone: Comment on above: NOTE: Result was obt ained using a chemiluminescent microparticle immunoassay (CMIA) on the Individualized Education Plan Aide i system.Optimal therapeutic ranges for immuno-suppressant drugs [...] high threshold 74 - 99 [facility] [address] [place] Work Phone: [phone] Glucose [Mass/Vol] 269 mg/dL above high threshold 74 - 99 [facility] [address] [place] Work Phone: [phone] Anion gap [Moles/Vol] 15 mmol/L 10 - 20 [facility] [address] [place] Work Phone: [phone] Calcium [Mass/Vol] 9.1 mg/dL 8.6 - 10.6 [facility] [address] [place] Work Phone: [phone] Chloride [Moles/Vol] 102 mmol/L 98 - 107 [facility] [address] [place] Work Phone: [phone] CO2 [Moles/Vol] 27 mmol/L 21 - 32 [facility] [address] [place] Work Phone: [phone] Creatinine [Mass/Vol] 1.97 mg/dL above high threshold See Below [facility] [address] [place] Work Phone: Comment on [...] [facility] [address] [place] Work Phone: [phone] Urea nitrogen [Mass/Vol] 41 mg/dL above high threshold 6 - 23 [facility] [address] [place] Work Phone: [phone] Glucose [Mass/Vol] 201 mg/dL above high threshold 74 - 99 [facility] [address] [place] Work Phone: Laboratory - Hematology and Cell countson 07-02-2021 Erythrocyte distribution width (RBC) [Ratio] 14.1 % See Below [facility] [address] [place] Work Phone: [phone] Comment on above: Reference Range: 11. 5 [...] fL 80 - 100 [facility] [address] [place] Work Phone: Platelets (Bld) [#/Vol] 160 10*3/uL 150 - 450 [facility] [address] [place] Work Phone: RBC (Bld) [#/Vol] 3.82 {x10E12/L} below low threshold See Below [facility] [address] [place] Work Phone: Comment on above: Reference Range: 4.5 0 - 5.90 WBC (Bld) [#/Vol] 6.8 10*3/uL 4.4 - 11.3 [facility] [address] [place] Work Phone: No Panel Informationon 07-02 34 {mL/min/1.73m2} Abnormal >90 [facility] [address] [place] Work Phone: Comment on above: CALCULATIONS OF ERNST MATED GFR ARE PERFORMED USING THE 2020 CKD-EPI STUDY REFIT EQUATION WITHOUT THE RACE VARIABLE FOR THE IDMS-TRACEABLE CREATININE METHODS.https://jasn.asnjournals.org/content/early// ASN.0576170554 0.0 {/100_WBC} 0.0-0.0 [facility] [address] [place] Work Phone: Tacrolimuson 07-02-2021 Tacrolimus (Bld) [Mass/Vol] 7.6 ng/mL 2.0 - 15.0 [facility] [address] [place] Work Phone: Comment on above: NOTE: Result was obt ained using a chemiluminescent microparticle immunoassay (CMIA) on the Individualized Education Plan Aide i system.Optimal therapeutic ranges for immuno-suppressant drugs [...] 13-18 <7.5 7-12 <8.0 0- 6 7.5-8.5 [place] [employer]. Diabetes Care 33(S1), Mar 2009. Laboratory - Chemistry and C hemistry - challengeon 07-01-2021 Glucose [Mass/Vol] 188 mg/dL above high threshold 74 - 99 [facility] [address] [place] Work Phone: Glucose [Mass/Vol] 258 mg/dL above high threshold 74 - 99 [facility] [address] [place] Work Phone: Glucose [Mass/Vol] 321 mg/dL above high threshold 74 - 99 [facility] [address] [place] Work Phone: Anion gap [Moles/Vol] 16 mmol/L 10 - 20 [facility] [address] [place] Work Phone: Calcium [Mass/Vol] 8.8 mg/dL 8.6 - 10.6 [facility] [address] [place] Work Phone: Chloride [Moles/Vol] 100 mmol/L 98 - 107 [facility] [address] [place] Work Phone: CO2 [Moles/Vol] 29 mmol/L 21 - 32 [facility] [address] [place] Work Phone: Creatinine [Mass/Vol] [...] mmol/L 3.5 - 5.3 [facility] [address] [place] Work Phone: Sodium [Moles/Vol] 141 mmol/L 136 - 145 [facility] [address] [place] Work Phone: Urea nitrogen [Mass/Vol] 38 mg/dL above high threshold 6 - 23 [facility] [address] [place] Work Phone: Laboratory - Hematology and Cell countson 07-01-2021 Erythrocyte distribution width (RBC) [Ratio] 14.1 % See Below [facility] [address] [place] Work Phone: Comment on above: Reference Range: 11. 5 - 14.5 Hematocrit (Bld) [Volume fraction] 34.6 % below low threshold See Below [facility] [address] [place] Work Phone: Comment on above: Reference Range: 41. 0 - 52.0 Hemoglobin (Bld) [Mass/Vol] 10.7 g/dL below low threshold See Below [facility] [address] [place] Work Phone: Comment on [...] 157 10*3/uL 150 - 450 [facility] [address] [place] Work Phone: RBC (Bld) [#/Vol] 3.83 {x10E12/L} below low threshold See Below [facility] [address] [place] Work Phone: Comment on above: Reference Range: 4.5 0 - 5.90 WBC (Bld) [#/Vol] 6.8 10*3/uL 4.4 - 11.3 [facility] [address] [place] Work Phone: No Panel Informationon 07-01 34 {mL/min/1.73m2} Abnormal >90 [facility] [address] [place] Work Phone: Comment on above: CALCULATIONS OF ERNST MATED GFR ARE PERFORMED USING THE 2020 CKD-EPI STUDY REFIT EQUATION WITHOUT THE RACE VARIABLE FOR THE IDMS-TRACEABLE CREATININE METHODS.https://jasn.asnjournals.org/content// ASN.8893011735 0.0 {/100_WBC} 0.0-0.0 [facility] [address] [place] Work Phone: Tacrolimuson 07-01-2021 Tacrolimus (Bld) [Mass/Vol] 9.3 ng/mL 2.0 - 15.0 [facility] [address] [place] Work Phone: Comment on above: NOTE: Result was obt ained using a chemiluminescent microparticle immunoassay (CMIA) on the Individualized Education Plan Aide i system.Optimal therapeutic ranges for immuno-suppressant drugs [...] high threshold 74 - 99 [facility] [address] [place] Work Phone: [phone] Glucose [Mass/Vol] 267 mg/dL above high threshold 74 - 99 [facility] [address] [place] Work Phone: [phone] Glucose [Mass/Vol] 289 mg/dL above high threshold 74 - 99 [facility] [address] [place] Work Phone: [phone] Glucose [Mass/Vol] 236 mg/dL above high threshold 74 - 99 [facility] [address] [place] Work Phone: [phone] Anion gap [Moles/Vol] 17 mmol/L 10 - 20 [facility] [address] [place] Work Phone: [phone] Calcium [Mass/Vol] 8.6 mg/dL 8.6 - 10.6 [facility] [address] [place] Work Phone: [phone] Chloride [Moles/Vol] 100 mmol/L 98 - 107 [facility] [address] [place] Work Phone: [phone] CO2 [Moles/Vol] 28 mmol/L 21 - 32 [facility] [address] [place] Work Phone: [phone] Creatinine [Mass/Vol] 2.26 mg/dL above high threshold See Below [facility] [address] [place] Work Phone: [phone] Comment on above: Reference Range: 0.5 0 - 1.30 Glucose [Mass/Vol] 205 mg/dL above high threshold 74 - 99 [facility] [address] [place] Work Phone: [phone] Potassium [Moles/Vol] 3.8 mmol/L 3.5 - 5.3 [facility] [address] [place] Work Phone: Sodium [Moles/Vol] [...] See Below [facility] [address] [place] Work Phone: Comment on above: Reference Range: 41. 0 - 52.0 Hemoglobin (Bld) [Mass/Vol] 10.5 g/dL below low threshold See Below [facility] [address] [place] Work Phone: Comment on above: Reference Range: 13. 5 - 17.5 MCHC (RBC) [Mass/Vol] 31.3 g/dL below low threshold See Below [facility] [address] [place] Work Phone: Comment on above: Reference Range: 32. 0 - 36.0 MCV (RBC) [Entitic vol] 91 fL 80 - 100 [facility] [address] [place] Work Phone: Platelets (Bld) [#/Vol] 141 10*3/uL below lo w threshold 150 - 450 [facility] [address] [place] Work Phone: RBC (Bld) [#/Vol] 3.70 {x10E12/L} below low threshold See Below [facility] [address] [place] Work Phone: Comment on above: Reference Range: 4.5 0 - 5.90 WBC (Bld) [#/Vol] 8.2 10*3/uL 4.4 - 11.3 [facility] [address] [place] Work Phone: No Panel Informationon 06-30 29 {mL/min/1.73m2} Abnormal >90 [facility] [address] [place] Work Phone: Comment on above: CALCULATIONS OF ERNST MATED GFR ARE PERFORMED USING THE 2020 CKD-EPI STUDY REFIT EQUATION WITHOUT THE RACE VARIABLE FOR THE IDMS-TRACEABLE CREATININE METHODS.https://jasn.asnjournals.org/content/early/ ASN.2350272579 0.0 {/100_WBC} 0.0-0.0 [facility] [address] [place] Work Phone: Tacrolimuson 06-30-2021 Tacrolimus (Bld) [Mass/Vol] 7.7 ng/mL 2.0 - 15.0 [facility] [address] [place] Work Phone: Comment on above: NOTE: Result was obt ained using a chemiluminescent microparticle immunoassay (CMIA) on the Individualized Education Plan Aide i system.Optimal therapeutic ranges for immuno-suppressant drugs depend upon an individualpatient's current clinical state, type oforgan transplant, time post-transplant,co-administration of other immunosuppressants,and other clinical factors. The results ofthis test should be correlated with additionalclinical and laboratory data before changesin treatment regimens are made. [facility] Venous Duplex Ultra sound for DVTon 06-30-2021 [facility] Venous Duplex Ultrasound for DVT [facility] [address] [place] Work Phone: Laboratory - Chemistry and C hemistry - challengeon 06-29-2021 Glucose [Mass/Vol] 252 mg/dL above high threshold 74 - 99 [facility] [address] [place] Work Phone: Glucose [Mass/Vol] 225 mg/dL above high threshold 74 - 99 [facility] [address] [place] Work Phone: [phone] Glucose [Mass/Vol] 283 mg/dL above high threshold 74 - 99 [facility] [place] [address] [place] Work Phone: [phone] Anion gap [Moles/Vol] 16 mmol/L 10 - 20 [facility] [address] [place] Work Phone: [phone] Calcium [Mass/Vol] 8.7 mg/dL 8.6 - 10.6 [facility] [address] [place] Work Phone: [phone] Chloride [Moles/Vol] 104 mmol/L 98 - 107 [facility] [address] [place] Work Phone: [phone] CO2 [Moles/Vol] 28 mmol/L 21 - 32 [facility] [address] [place] Work Phone: [phone] Creatinine [Mass/Vol] 1.97 mg/dL above high threshold See Below [facility] [address] [place] Work Phone: [phone] Comment on above: Reference Range: 0.5 0 - 1.30 Glucose [Mass/Vol] 185 mg/dL above high threshold 74 - 99 [facility] [address] [place] Work Phone: [phone] Potassium [Moles/Vol] 3.9 mmol/L 3.5 - 5.3 [facility] [place] [address] [place] Work Phone: [phone] Sodium [Moles/Vol] 144 mmol/L 136 - 145 [facility] [address] [place] Work Phone: [phone] Urea nitrogen [Mass/Vol] 35 mg/dL above high threshold 6 - 23 [facility] [address] [place] Work Phone: [phone] [...] below low threshold See Below [facility] [address] [place] Work Phone: Comment on above: Reference Range: 41. 0 - 52.0 Hemoglobin (Bld) [Mass/Vol] 11.0 g/dL below low threshold See Below [facility] [address] [place] Work Phone: Comment on [...] 1.80 mg/dL See Below [facility] [address] [place] Work Phone: Comment on above: Reference Range: 1.6 0 - 2.40 No Panel Informationon 06-29 34 {mL/min/1.73m2} Abnormal >90 [facility] [address] [place] Work Phone: Comment on above: CALCULATIONS OF ERNST MATED GFR ARE PERFORMED USING THE 2020 CKD-EPI STUDY REFIT EQUATION WITHOUT THE RACE VARIABLE FOR THE IDMS-TRACEABLE CREATININE METHODS.https://jasn.asnjournals.org/content/early// ASN.2379465607 0.0 {/100_WBC} 0.0-0.0 [facility] [address] [place] Work Phone: Tacrolimuson 06-29-2021 Tacrolimus (Bld) [Mass/Vol] 8.4 ng/mL 2.0 - 15.0 [facility] [address] [place] Work Phone: Comment on above: NOTE: Result was obt ained using a chemiluminescent microparticle immunoassay (CMIA) on the Individualized Education Plan Aide i system.Optimal therapeutic ranges for immuno-suppressant drugs [...] high threshold 74 - 99 [facility] [address] [place] Work Phone: Glucose [Mass/Vol] 215 mg/dL above high threshold 74 - 99 [facility] [address] [place] Work Phone: Anion gap [Moles/Vol] 14 mmol/L 10 - 20 [facility] [address] [place] Work Phone: Calcium [Mass/Vol] 8.5 mg/dL below low threshold 8.6 - 10.6 [facility] [address] [place] Work Phone: Chloride [Moles/Vol] 105 mmol/L 98 - 107 [facility] [address] [place] Work Phone: [phone] CO2 [Moles/Vol] 29 mmol/L 21 - 32 [facility] [address] [place] Work Phone: [phone] Creatinine [Mass/Vol] 1.96 mg/dL above high threshold See Below [facility] [address] [place] Work Phone: Comment on above: Reference Range: 0.5 0 - 1.30 Glucose [Mass/Vol] 159 mg/dL above high threshold 74 - 99 [facility] [address] [place] Work Phone: [phone] Potassium [Moles/Vol] 3.8 mmol/L 3.5 - 5.3 [facility] [address] [place] Work Phone: [phone] Sodium [Moles/Vol] 144 mmol/L 136 - 145 [facility] [address] [place] Work Phone: Urea nitrogen [Mass/Vol] 36 mg/dL above high threshold 6 - 23 [facility] [address] [place] Work Phone: Glucose [Mass/Vol] 159 mg/dL above high threshold 74 - 99 [facility] [address] [place] Work Phone: Laboratory - Hematology and Cell countson 06-28-2021 Erythrocyte distribution width (RBC) [Ratio] 14.3 % See Below [facility] [address] [place] Work Phone: Comment on above: Reference Range: 11. 5 - 14.5 Hematocrit (Bld) [Volume fraction] 33.8 % below low threshold See Below [facility] [place] [address] [place] Work Phone: Comment on above: Reference Range: 41. 0 - 52.0 Hemoglobin (Bld) [Mass/Vol] 10.4 g/dL below low threshold See Below [facility] [address] [place] Work Phone: Comment on above: Reference Range: 13. 5 - 17.5 MCHC (RBC) [Mass/Vol] 30.8 g/dL below low threshold See Below [facility] [address] [place] Work Phone: Comment on above: Reference Range: 32. 0 - 36.0 MCV (RBC) [Entitic vol] 90 fL 80 - 100 [facility] [address] [place] Work Phone: Platelets (Bld) [#/Vol] 133 10*3/uL below lo w threshold 150 - 450 [facility] [address] [place] Work Phone: RBC (Bld) [#/Vol] 3.75 {x10E12/L} below low threshold See Below [facility] [address] [place] Work Phone: Comment on above: Reference Range: 4.5 0 - 5.90 WBC (Bld) [#/Vol] 5.7 10*3/uL 4.4 - 11.3 [facility] [place] [address] [place] Work Phone: Lactate, Levelon 06-28-2021 Lactate [Moles/Vol] 0.6 mmol/L 0.4 - 2.0 [facility] [address] [place] Work Phone: Comment on above: [...] RACE VARIABLE FOR THE IDMS-TRACEABLE CREATININE METHODS.https://jasn.asnjournals.org/content/early/ ASN.9954211588 0.0 {/100_WBC} 0.0-0.0 [facility] [address] [place] Work Phone: Tacrolimuson 06-28-2021 Tacrolimus (Bld) [Mass/Vol] 10.4 ng/mL 2.0 - 15.0 [facility] [address] [place] Work Phone: Comment on above: NOTE: Result was obt ained using a chemiluminescent microparticle immunoassay (CMIA) on the Individualized Education Plan Aide i system.Optimal therapeutic ranges for immuno-suppressant drugs depend upon an individualpatient's current clinical state, type oforgan transplant, time post-transplant,co-administration of other immunosuppressants,and other clinical factors. The results ofthis test should be correlated with additionalclinical and laboratory data before changesin treatment regimens are made. Complete Blood Count + Diffe rentialon 06-27-2021 Basophils/100 WBC (Bld) 0.5 % 0.0 - 2.0 [facility] [address] [place] Work Phone: Erythrocyte distribution width (RBC) [Ratio] 14.3 % See Below [facility] [address] [place] Work Phone: Comment on above: Reference Range: 11. 5 - 14.5 Hematocrit (Bld) [Volume fraction] 33.6 % below low threshold See Below [facility] [address] [place] Work Phone: Comment on above: Reference Range: 41. 0 - 52.0 Hemoglobin (Bld) [Mass/Vol] 10.3 g/dL below low threshold See Below [facility] [address] [place] Work Phone: Comment on above: Reference Range: 13. 5 - 17.5 Lymphocytes/100 WBC (Bld) 13.1 % See Below [facility] [address] [place] Work Phone: Comment on above: Reference Range: 13. 0 - 44.0 MCHC (RBC) [Mass/Vol] 30.7 g/dL below low threshold See Below [facility] [address] [place] Work Phone: Comment on above: Reference Range: 32. 0 - 36.0 MCV (RBC) [Entitic vol] 92 fL 80 - 100 [facility] [address] [place] Work Phone: Monocytes/100 WBC (Bld) 9.0 % 2.0 - 10.0 [facility] [address] [place] Work Phone: Neutrophils/100 WBC (Bld) 72.5 % See Below [facility] [address] [place] Work Phone: Comment on above: Reference Range: 40. 0 - 80.0 Platelets (Bld) [#/Vol] 137 10*3/uL below lo w threshold 150 - 450 [facility] [address] [place] Work Phone: RBC (Bld) [#/Vol] 3.67 {x10E12/L} below low threshold See Below [facility] [address] [place] Work Phone: Comment on above: Reference Range: 4.5 0 - 5.90 WBC (Bld) [#/Vol] 6.4 10*3/uL 4.4 - 11.3 [facility] [address] [place] Work Phone: Complete Blood Count + Differential 0.03 {x10E9/L} See Below [facility] [address] [place] Work Phone: Comment on above: Reference Range: 0.0 0 - 0.10 Complete Blood Count + Differential 0.28 {x10E9/L} See Below [facility] [address] [place] Work Phone: Comment on above: Reference Range: 0.0 0 - 0.40 Complete Blood Count + Differential 0.57 {x10E9/L} See Below [facility] [address] [place] Work Phone: Comment on above: Reference Range: 0.0 5 - 0.80 Complete Blood Count + Differential 0.83 {x10E9/L} See Below [facility] [address] [place] Work Phone: Comment on above: Reference Range: 0.8 0 - 3.00 Complete Blood Count + Differential 4.61 {x10E9/L} See Below [facility] [address] [place] Work Phone: Comment on above: Reference Range: 1.6 0 - 5.50 Complete Blood Count + Differential 4.4 % 0.0 - 6.0 [facility] [address] [place] Work Phone: Complete Blood Count + Differential 0.5 % 0.0 - 0.9 [facility] [address] [place] Work Phone: Comment on above: [...] Wu on 06-27-2021 Glucose [Mass/Vol] 263 mg/dL [facility] Comment on above: Random Glucose Refer ence Range is dependent on time and content of last meal. Glucose of more than 200 mg/dL in a nonstressed, ambulatory subject supports the diagnosis of Diabetes Mellitus. Laboratory - Chemistry and C hemistry - challengeon 06-27-2021 Albumin BCP dye [Mass/Vol] 3.4 g/dL 3.4 - 5.0 [facility] [address] [place] Work Phone: ALP [Catalytic activity/Vol] 57 U/L 33 - 136 [facility] [address] [place] Work Phone: ALT With P-5'-P [Catalytic activity/Vol] 4 U/L below low threshold 10 - 52 [facility] [address] [place] Work Phone: Comment on above: Patients treated wit h Sulfasalazine may generate falsely decreased results for ALT. Anion gap [Moles/Vol] 18 mmol/L 10 - 20 [facility] [address] [place] Work Phone: AST With P-5'-P [Catalytic activity/Vol] 10 U/L 9 - 39 [facility] [address] [place] Work Phone: Bilirubin [Mass/Vol] 0.3 mg/dL 0.0 - 1.2 [facility] [address] [place] Work Phone: [phone] Calcium [Mass/Vol] 8.3 mg/dL below low threshold 8.6 - 10.6 [facility] [address] [place] Work Phone: Chloride [Moles/Vol] 102 mmol/L 98 - 107 [facility] [address] [place] Work Phone: CO2 [Moles/Vol] 26 mmol/L 21 - 32 [facility] [address] [place] Work Phone: Creatinine [Mass/Vol] 1.85 mg/dL above high threshold See Below [facility] [address] [place] Work Phone: Comment on above: Reference Range: 0.5 0 - 1.30 Glucose [Mass/Vol] 177 mg/dL above high threshold 74 - 99 [facility] [address] [place] Work Phone: Potassium [Moles/Vol] [...] high threshold 6 - 23 [facility] [address] [place] Work Phone: Glucose [Mass/Vol] 178 mg/dL above high threshold 74 - 99 [facility] [address] [place] Work Phone: Glucose [Mass/Vol] 213 mg/dL above high threshold 74 - 99 [facility] [address] [place] Work Phone: No Panel Informationon 06-27 37 {mL/min/1.73m2} Abnormal >90 [facility] [address] [place] Work Phone: Comment on above: CALCULATIONS OF ERNST MATED GFR ARE PERFORMED USING THE 2020 CKD-EPI STUDY REFIT EQUATION WITHOUT THE RACE VARIABLE FOR THE IDMS-TRACEABLE CREATININE METHODS.https://jasn.asnjournals.org/content// ASN.2799079568 No Panel InformationOrdered By: Yoshi Wu on 06-27-2021 Bedside Glucose Comment Glu2: cleaned meter [facility] Automated erythrocytes count in urine sediment (number/area)Ordered By: Audra Quinteros on 06-26-2021 RBC Auto (Urine sed) [#/Area] 0-1 [HPF] [facility] Automated leukocytes count i n urine sediment (number/area)Ordered By: Audra Quinteros on 06-26-2021 WBC Auto (Urine sed) [#/Area] 0-1 [HPF] [facility] Bilirubin Test strip Ql (U)O rdered By: Audra Quinteros on 06-26-2021 Bilirubin Ql (U) Negative Negative [facility] COVID-19 Positive/NegativeOr dered By: Omid Myrick on 06-26-2021 SARS-CoV-2 (COVID-19) N gene JOYCE+probe Ql (Resp) Negative Negative [facility] Comment on above: Testing for SARS-CoV -2 by RT-PCRThis test was developed and its performance characteristics determined by [employer] ([employer]) and validated at the [facility]. This test has not been FDA [...] Quinteros on 06-26-2021 Color (U) Yellow Yellow [facility] Creatinine [Mass/volume] in UrineOrdered By: Audra Quinteros on 06-26-2021 Creatinine (U) [Mass/Vol] 71.5 mg/dL [facility] Comment on above: No reference range e stablished Creatinine and Glomerular fi ltration rate.predicted panel (S/P/Bld)Ordered By: Audra Quinteros on 06-26-2021 Creatinine [Mass/Vol] 1.99 mg/dL 0.64-1.27 [facility] Estimated glomerular filtrat ion rate (GFR) non- AmericanOrdered By: Audra Quinteros on 06-26-2021 GFR/1.73 sq M.predicted among non-blacks MDRD (S/P/Bld) [Vol rate/Area] 33 mL/Min [facility] Ketones Auto test strip (U) [Mass/Vol]Ordered By: Audra Quinteros on 06-26-2021 Ketones (U) [Mass/Vol] Negative Negative [facility] Laboratory - Microbiology an d Antimicrobial susceptibilityOrdered By: Omid Myrick on 06-26-2021 SARS-CoV-2 (COVID-19) RNA JOYCE+probe Ql (Unsp spec) N/A [facility] Laboratory - UrinalysisOrder ed By: Audra Quinteros on 06-26-2021 Hyaline casts LM Ql (Urine sed) 0-8 [LPF] [facility] Nitrite Test strip Ql (U)Ord ered By: Audra Quinteros on 06-26-2021 Nitrite Ql (U) Negative Negative [facility] No Panel InformationOrdered By: Audra Quinteros on 06-26-2021 Estimated GFR () 40 mL/Min [facility] Comment on above: GFR estimated refere nce range: According to KDOQI guidelines, <60 ml/min/1.73m2 is sufficient to diagnose a patient with chronic kidney disease. Pharmacy Creatinine Clearance (Chem 39.80 [facility] Protein Auto test strip (U) [Mass/Vol]Ordered By: Audra Quinteros on 06-26-2021 Protein (U) [Mass/Vol] 300 mg/dL Negative [facility] Serum or plasma calcium abhijit urement (mass/volume)Ordered By: Audra Quinteros on 06-26-2021 Calcium [Mass/Vol] 8.9 mg/dL 8.2-10.2 [facility] Serum or plasma chloride marylin surement (moles/volume)Ordered By: Audra Quinteros on 06-26-2021 Chloride [Moles/Vol] 105 mmol/L 95-114 [facility] Serum or plasma glucose abhijit urement (mass/volume)Ordered By: Audra Quinteros on 06-26-2021 Glucose [Mass/Vol] 194 mg/dL 70-100 [facility] Comment on above: ADA recommended refe rence rangeRandom Glucose Reference Range is dependent on time and content of last meal. Glucose of more than 200 mg/dL in a nonstressed, ambulatory subject supports the diagnosis of Diabetes Mellitus. Serum or plasma potassium me asurement (moles/volume)Ordered By: Omid Myrick on 06-26-2021 Potassium [Moles/Vol] 4.0 mmol/L 3.5-5.1 [facility] Serum or plasma sodium measu rement (moles/volume)Ordered By: Audra Quinteros on 06-26-2021 Sodium [Moles/Vol] 140 mmol/L 136-146 [facility] Serum or plasma total carbon dioxide measurement (moles/volume)Ordered By: Audra Quinteros on 06-26-2021 CO2 [Moles/Vol] 23.8 mmol/L 22.0-30.0 [facility] Serum or plasma urea nitroge n measurement (mass/volume)Ordered By: Audra Quinteros on 06-26-2021 Urea nitrogen [Mass/Vol] 39 mg/dL 9-23 [facility] Specific gravity Auto test s trip (U) [Rel density]Ordered By: Audra Quinteros on 06-26-2021 Specific gravity (U) [Rel density] 1.015 1.001-1.03 0 [facility] Squamous epithelial cells de tection in urine sediment by light microscopyOrdered By: Audra Quinteros on 06-26-2021 Epithelial cells.squamous LM Ql (Urine sed) None seen [HPF] [facility] Urine bacteria detection by automated methodOrdered By: Audra Quinteros on 06-26-2021 Bacteria Auto Ql (U) None seen None Seen [facility] Urine clarity by refractomet ry automatedOrdered By: Audra Quinteros on 06-26-2021 Clarity Refractometry automated (U) Clear Clear [facility] Urine glucose measurement by automated test strip (mass/volume)Ordered By: Audra Quinteros on 06-26-2021 Glucose Auto test strip (U) [Mass/Vol] Normal mg/dL Normal [facility] Urine hemoglobin detection b y automated test stripOrdered By: Audra Quinteros on 06-26-2021 Hemoglobin Auto test strip Ql (U) Negative Negative [facility] Urine leukocyte esterase det ection by automated test stripOrdered By: Audra Quinteros on 06-26-2021 Leukocyte esterase Auto test strip Ql (U) Negative Negative [facility] Urine sodium measurement (mo les/volume)Ordered By: Audra Quinteros on 06-26-2021 Sodium (U) [Moles/Vol] 94 mmol/L [facility] Comment on above: No reference range e stablished Urobilinogen Auto test strip (U) [Mass/Vol]Ordered By: Audra Quinteros on 06-26-2021 Urobilinogen (U) [Mass/Vol] Normal mg/dL Normal [facility] pH Auto test strip (U)Ordere d By: Audra Quinteros on 06-26-2021 pH (U) 5.5 [pH] 5.0-9.0 [facility] Activated partial thrombopla stin time (aPTT) in platelet poor plasma by coagulation aOrdered By: Andrew Hernández on 06-25-2021 aPTT Coag (PPP) [Time] 33.4 s 25.1-36.5 [facility] Albumin [Mass/volume] in Ser um or PlasmaOrdered By: Andrew Hernández on 06-25-2021 Albumin [Mass/Vol] 3.4 g/dL 3.2-5.5 [facility] Basophils Auto (Bld) [#/Vol] Ordered By: Andrew Hernández on 06-25-2021 Basophils (Bld) [#/Vol] 0.0 10*3/uL 0.0-0.2 [facility] Basophils/100 WBC Auto (Bld) Ordered By: Andrew Hernández on 06-25-2021 Basophils/100 WBC (Bld) 0.6 % [facility] Blood hemoglobin measurement (mass/volume)Ordered By: Andrew Hernández on 06-25-2021 Hemoglobin (Bld) [Mass/Vol] 11.8 g/dL 13.0-17.0 [facility] Blood leukocytes automated c ount (number/volume)Ordered By: Andrew Hernández on 06-25-2021 WBC (Bld) [#/Vol] 7.5 10*3/uL 4.5-11.0 [facility] COVID-19 SOFIAOrdered By: Prasanna Hernández on 06-25-2021 SARS-CoV+SARS-CoV-2 (COVID-19) Ag IA.rapid Ql (Resp) Negative Negative [facility] Comment on above: This is a duplicate Jessi SARS Antigen (GABI) result to be used for statistical tracking purpose only. Creatinine and Glomerular fi ltration rate.predicted panel (S/P/Bld)Ordered By: Andrew Hernández on 06-25-2021 Creatinine [Mass/Vol] 2.25 mg/dL 0.64-1.27 [facility] Eosinophils Auto (Bld) [#/Vo l]Ordered By: Andrew Hernández on 06-25-2021 Eosinophils (Bld) [#/Vol] 0.3 10*3/uL 0.0-0.45 [facility] Eosinophils/100 WBC Auto (Bl d)Ordered By: Andrew Hernández on 06-25-2021 Eosinophils/100 WBC (Bld) 4.6 % [facility] Erythrocyte distribution wid th Auto (RBC) [Ratio]Ordered By: Andrew Hernández on 06-25-2021 Erythrocyte distribution width (RBC) [Ratio] 16.1 % 12.0-14.8 [facility] Erythrocyte sedimentation ra te by Photometric methodOrdered By: Andrew Hernández on 06-25-2021 ESR Photometric method (Bld) [Velocity] 39 mm/hr 0-19 [facility] Estimated glomerular filtrat ion rate (GFR) non- AmericanOrdered By: Andrew Hernández on 06-25-2021 GFR/1.73 sq M.predicted among non-blacks MDRD (S/P/Bld) [Vol rate/Area] 28 mL/Min [facility] Globulin Calc (S) [Mass/Vol] Ordered By: Andrew Hernández on 06-25-2021 Globulin (S) [Mass/Vol] 3.2 g/dL [facility] Hematocrit Auto (Bld) [Volum e fraction]Ordered By: Andrew Hernández on 06-25-2021 Hematocrit (Bld) [Volume fraction] 36.2 % 38.8-50.0 [facility] Laboratory - Chemistry and C hemistry - challengeOrdered By: Andrew Hernández on 06-25-2021 Natriuretic peptide B (Bld) [Mass/Vol] 165.0 pg/mL 5-100 [facility] - CoagulationOrde red By: Andrew Hernández on 06-25-2021 PT Coag (PPP) [Time] 11.9 s 9.0-12.9 [facility] Laboratory - Hematology and Cell countsOrdered By: Andrew Hernández on 06-25-2021 Nucleated RBC/100 WBC (Bld) [Ratio] 0.1 % 0-0.5 [facility] Lymphocytes Auto (Bld) [#/Vo l]Ordered By: Andrew Hernández on 06-25-2021 Lymphocytes (Bld) [#/Vol] 1.0 10*3/uL 1.00-4.8 [facility] Lymphocytes/100 WBC Auto (Bl d)Ordered By: Andrew Hernández on 06-25-2021 Lymphocytes/100 WBC (Bld) 12.9 % [facility] MCH Auto (RBC) [Entitic mass ]Ordered By: Andrew Hernández on 06-25-2021 MCH (RBC) [Entitic mass] 28.1 pg 27.5-35.2 [facility] MCHC Auto (RBC) [Mass/Vol]Or dered By: Andrew Hernández on 06-25-2021 MCHC (RBC) [Mass/Vol] 32.7 g/dL 32.5-35.6 [facility] MCV Auto (RBC) [Entitic vol] Ordered By: Andrew Hernández on 06-25-2021 MCV (RBC) [Entitic vol] 86.0 fL 83.5-101 [facility] Monocytes Auto (Bld) [#/Vol] Ordered By: Andrew Hernández on 06-25-2021 Monocytes (Bld) [#/Vol] 0.5 10*3/uL 0.0-0.8 [facility] Monocytes/100 WBC Auto (Bld) Ordered By: Andrew Hernández on 06-25-2021 Monocytes/100 WBC (Bld) 7.3 % [facility] Neutrophils Auto (Bld) [#/Vo l]Ordered By: Andrew Hernández on 06-25-2021 Neutrophils (Bld) [#/Vol] 5.6 10*3/uL 1.8-7.7 [facility] Neutrophils/100 WBC Auto (Bl d)Ordered By: Andrew Hernández on 06-25-2021 Neutrophils/100 WBC (Bld) 74.6 % [facility] No Panel InformationOrdered By: Andrew Hernández on 06-25-2021 SARS Antigen (LFIA) [facility] Estimated GFR () 34 mL/Min [facility] Comment on above: GFR estimated refere nce range: According to KDOQI guidelines, <60 ml/min/1.73m2 is sufficient to diagnose a patient with chronic kidney disease. Pharmacy Creatinine Clearance (Chem 365.00 [facility] Platelet mean volume Auto (B ld) [Entitic vol]Ordered By: Andrew Hernández on 06-25-2021 Platelet mean volume (Bld) [Entitic vol] 10.0 fL 6.6-10.1 [facility] Platelet poor plasma interna tional normalized ratio (INR) by coagulation assay (relatOrdered By: Andrew Hernández on 06-25-2021 INR Coag (PPP) [Relative time] 1.1 {INR} [facility] Comment on above: INR Therapeutic Rang [...] 06-25-2021 Platelets (Bld) [#/Vol] 171 10*3/uL 150-450 [facility] Comment on above: Delta: 119 on 0453 Protein [Mass/volume] in Ser um or PlasmaOrdered By: Andrew Hernández on 06-25-2021 Protein [Mass/Vol] 6.6 g/dL 6.1-7.9 [facility] RBC Auto (Bld) [#/Vol]Ordere d By: Andrew Hernández on 06-25-2021 RBC (Bld) [#/Vol] 4.21 10*6/uL 3.90-5.60 [facility] Serum or plasma C reactive p rotein measurement (mass/volume)Ordered By: Andrew Hernández on 06-25-2021 CRP [Mass/Vol] 0.9 mg/dL 0.0-1.0 [facility] Serum or plasma alanine lopez otransferase measurement without P-5'-P (enzymatic activiOrdered By: Andrew Hernández on 06-25-2021 ALT No additional P-5'-P [Catalytic activity/Vol] 13 U/L 10-60 [facility] Serum or plasma albumin/glob ulin mass ratioOrdered By: Andrew Hernández on 06-25-2021 Albumin/Globulin [Mass ratio] 1.1 {ratio} [facility] Serum or plasma alkaline cande sphatase measurement (enzymatic activity/volume)Ordered By: Andrew Hernández on 06-25-2021 ALP [Catalytic activity/Vol] 57 U/L 32-92 [facility] Serum or plasma aspartate am inotransferase measurement (enzymatic activity/volume)Ordered By: Andrew Hernández on 06-25-2021 AST [Catalytic activity/Vol] 15 U/L 10-42 [facility] Serum or plasma calcium abhijit urement (mass/volume)Ordered By: Andrew Hernández on 06-25-2021 Calcium [Mass/Vol] 9.2 mg/dL 8.2-10.2 [facility] Serum or plasma chloride marylin surement (moles/volume)Ordered By: Andrew Hernández on 06-25-2021 Chloride [Moles/Vol] 106 mmol/L 95-114 [facility] Serum or plasma glucose abhijit urement (mass/volume)Ordered By: Andrew Hernández on 06-25-2021 Glucose [Mass/Vol] 177 mg/dL 70-100 [facility] Comment on above: ADA recommended refe rence rangeRandom Glucose Reference Range is dependent on time and content of last meal. Glucose of more than 200 mg/dL in a nonstressed, ambulatory subject supports the diagnosis of Diabetes Mellitus. Serum or plasma potassium me asurement (moles/volume)Ordered By: Andrew Hernández on 06-25-2021 Potassium [Moles/Vol] 4.2 mmol/L 3.5-5.1 [facility] Serum or plasma sodium measu rement (moles/volume)Ordered By: Andrew Hernández on 06-25-2021 Sodium [Moles/Vol] 142 mmol/L 136-146 [facility] Serum or plasma total biliru bin measurement (mass/volume)Ordered By: Anderw Hernández on 06-25-2021 Bilirubin [Mass/Vol] 0.4 mg/dL 0.3-1.2 [facility] Serum or plasma total carbon dioxide measurement (moles/volume)Ordered By: Andrew Hernández on 06-25-2021 CO2 [Moles/Vol] 24.1 mmol/L 22.0-30.0 [facility] Serum or plasma urea nitroge n measurement (mass/volume)Ordered By: Andrew Hernández on 06-25-2021 Urea nitrogen [Mass/Vol] 41 mg/dL 9-23 [facility] Troponin I.cardiac [Mass/vol ume] in Serum or Plasma by High sensitivity methodOrdered By: Andrew Hernández on 06-25-2021 Troponin I.cardiac High sensitivity method [Mass/Vol] 12 pg/mL 0-20 [facility] Albumin [Mass/volume] in Ser um or PlasmaOrdered By: Julee Davies on 06-24-2021 Albumin [Mass/Vol] 2.9 g/dL 3.2-5.5 [facility] Basophils Auto (Bld) [#/Vol] Ordered By: Julee Davies on 06-24-2021 Basophils (Bld) [#/Vol] 0.0 10*3/uL 0.0-0.2 [facility] Basophils/100 WBC Auto (Bld) Ordered By: Julee Davies on 06-24-2021 Basophils/100 WBC (Bld) 0.6 % [facility] Blood hemoglobin measurement (mass/volume)Ordered By: Julee Davies on 06-24-2021 Hemoglobin (Bld) [Mass/Vol] 10.8 g/dL 13.0-17.0 [facility] Blood leukocytes automated c ount (number/volume)Ordered By: Julee Davies on 06-24-2021 WBC (Bld) [#/Vol] 6.6 10*3/uL 4.5-11.0 [facility] Creatinine and Glomerular fi ltration rate.predicted panel (S/P/Bld)Ordered By: Julee Davies on 06-24-2021 Creatinine [Mass/Vol] 2.17 mg/dL 0.64-1.27 [facility] Eosinophils Auto (Bld) [#/Vo l]Ordered By: Julee Davies on 06-24-2021 Eosinophils (Bld) [#/Vol] 0.3 10*3/uL 0.0-0.45 [facility] Eosinophils/100 WBC Auto (Bl d)Ordered By: Julee Davies on 06-24-2021 Eosinophils/100 WBC (Bld) 5.2 % [facility] Erythrocyte distribution wid th Auto (RBC) [Ratio]Ordered By: Julee Davies on 06-24-2021 Erythrocyte distribution width (RBC) [Ratio] 15.8 % 12.0-14.8 [facility] Estimated glomerular filtrat ion rate (GFR) non- AmericanOrdered By: Julee Davies on 06-24-2021 GFR/1.73 sq M.predicted among non-blacks MDRD (S/P/Bld) [Vol rate/Area] 30 mL/Min [facility] Globulin Calc (S) [Mass/Vol] Ordered By: Julee Davies on 06-24-2021 Globulin (S) [Mass/Vol] 2.4 g/dL [facility] Hematocrit Auto (Bld) [Volum e fraction]Ordered By: Julee Davies on 06-24-2021 Hematocrit (Bld) [Volume fraction] 33.0 % 38.8-50.0 [facility] - Chemistry and C hemistry - challengeOrdered By: Julee Davies on 06-24-2021 Magnesium [Mass/Vol] 1.9 mg/dL 1.6-2.6 [facility] Natriuretic peptide B (Bld) [Mass/Vol] 224.0 pg/mL 5-100 [facility] - Hematology and Cell countsOrdered By: Julee Davies on 06-24-2021 Nucleated RBC/100 WBC (Bld) [Ratio] 0.1 % 0-0.5 [facility] Lymphocytes Auto (Bld) [#/Vo l]Ordered By: Julee Davies on 06-24-2021 Lymphocytes (Bld) [#/Vol] 0.8 10*3/uL 1.00-4.8 [facility] Lymphocytes/100 WBC Auto (Bl d)Ordered By: Julee Davies on 06-24-2021 Lymphocytes/100 WBC (Bld) 11.4 % [facility] MCH Auto (RBC) [Entitic mass ]Ordered By: Julee Davies on 06-24-2021 MCH (RBC) [Entitic mass] 27.7 pg 27.5-35.2 [facility] MCHC Auto (RBC) [Mass/Vol]Or dered By: Julee Davies on 06-24-2021 MCHC (RBC) [Mass/Vol] 32.7 g/dL 32.5-35.6 [facility] MCV Auto (RBC) [Entitic vol] Ordered By: Julee Davies on 06-24-2021 MCV (RBC) [Entitic vol] 84.6 fL 83.5-101 [facility] Monocytes Auto (Bld) [#/Vol] Ordered By: Julee Davies on 06-24-2021 Monocytes (Bld) [#/Vol] 0.5 10*3/uL 0.0-0.8 [facility] Monocytes/100 WBC Auto (Bld) Ordered By: Julee Davies on 06-24-2021 Monocytes/100 WBC (Bld) 7.4 % [facility] Neutrophils Auto (Bld) [#/Vo l]Ordered By: Julee Davies on 06-24-2021 Neutrophils (Bld) [#/Vol] 5.0 10*3/uL 1.8-7.7 [facility] Neutrophils/100 WBC Auto (Bl d)Ordered By: Julee Davies on 06-24-2021 Neutrophils/100 WBC (Bld) 75.4 % [facility] No Panel InformationOrdered By: Julee Davies on 06-24-2021 Estimated GFR () 36 mL/Min [facility] Comment on above: GFR estimated refere nce range: According to KDOQI guidelines, <60 ml/min/1.73m2 is sufficient to diagnose a patient with chronic kidney disease. Pharmacy Creatinine Clearance (Chem N/A [facility] Platelet mean volume Auto (B ld) [Entitic vol]Ordered By: Julee Davies on 06-24-2021 Platelet mean volume (Bld) [Entitic vol] 9.8 fL 6.6-10.1 [facility] Platelets Auto (Bld) [#/Vol] Ordered By: Julee Davies on 06-24-2021 Platelets (Bld) [#/Vol] 119 10*3/uL 150-450 [facility] Protein [Mass/volume] in Ser um or PlasmaOrdered By: Julee Davies on 06-24-2021 Protein [Mass/Vol] 5.3 g/dL 6.1-7.9 [facility] RBC Auto (Bld) [#/Vol]Ordere d By: Julee Davies on 06-24-2021 RBC (Bld) [#/Vol] 3.90 10*6/uL 3.90-5.60 [facility] Serum or plasma alanine lopez otransferase measurement without P-5'-P (enzymatic activiOrdered By: Julee Davies on 06-24-2021 ALT No additional P-5'-P [Catalytic activity/Vol] 7 U/L 10-60 [facility] Serum or plasma albumin/glob ulin mass ratioOrdered By: Jluee Davies on 06-24-2021 Albumin/Globulin [Mass ratio] 1.2 {ratio} [facility] Serum or plasma alkaline cande sphatase measurement (enzymatic activity/volume)Ordered By: Julee Davies on 06-24-2021 ALP [Catalytic activity/Vol] 56 U/L 32-92 [facility] Serum or plasma aspartate am inotransferase measurement (enzymatic activity/volume)Ordered By: Julee Davies on 06-24-2021 AST [Catalytic activity/Vol] 13 U/L 10-42 [facility] Serum or plasma calcium abhijit urement (mass/volume)Ordered By: Julee Davies on 06-24-2021 Calcium [Mass/Vol] 8.9 mg/dL 8.2-10.2 [facility] Serum or plasma chloride marylin surement (moles/volume)Ordered By: Julee Davies on 06-24-2021 Chloride [Moles/Vol] 109 mmol/L 95-114 [facility] Serum or plasma glucose abhijit urement (mass/volume)Ordered By: Julee Davies on 06-24-2021 Glucose [Mass/Vol] 160 mg/dL 70-100 [facility] Comment on above: ADA recommended refe rence rangeRandom Glucose Reference Range is dependent on time and content of last meal. Glucose of more than 200 mg/dL in a nonstressed, ambulatory subject supports the diagnosis of Diabetes Mellitus. Serum or plasma potassium me asurement (moles/volume)Ordered By: Julee Davies on 06-24-2021 Potassium [Moles/Vol] 4.1 mmol/L 3.5-5.1 [facility] Serum or plasma sodium measu rement (moles/volume)Ordered By: Julee Davies on 06-24-2021 Sodium [Moles/Vol] 144 mmol/L 136-146 [facility] Serum or plasma total biliru bin measurement (mass/volume)Ordered By: Julee Davies on 06-24-2021 Bilirubin [Mass/Vol] 0.5 mg/dL 0.3-1.2 [facility] Serum or plasma total carbon dioxide measurement (moles/volume)Ordered By: Julee Davies on 06-24-2021 CO2 [Moles/Vol] 25.7 mmol/L 22.0-30.0 [facility] Serum or plasma urea nitroge n measurement (mass/volume)Ordered By: Julee Davies on 06-24-2021 Urea nitrogen [Mass/Vol] 43 mg/dL 9-23 [facility] Tacrolimus [Mass/volume] in BloodOrdered By: Julee Davies on 06-24-2021 Tacrolimus (Bld) [Mass/Vol] 8.1 ng/mL [facility] Comment on above: This test was vane christine and its performance characteristicsdetermined by [employer]. It has not been cleared orapproved by the Food and Drug Administration. Trough (immediately following transplant) 15.0 Trough (steady state, 2 weeks or more after transplant): 3.0 - 8.0 Performed by LC-MS/MS technology.Performed at: [address] [id number] Director: Mynor Nixon MD, Phone: [phone] Albumin [Mass/volume] in Ser um or PlasmaOrdered By: Julee Davies on 05-27-2021 Albumin [Mass/Vol] 3.1 g/dL 3.2-5.5 [facility] Basophils Auto (Bld) [#/Vol] Ordered By: Julee Davies on 05-27-2021 Basophils (Bld) [#/Vol] 0.0 10*3/uL 0.0-0.2 [facility] Basophils/100 WBC Auto (Bld) Ordered By: Julee Davies on 05-27-2021 Basophils/100 WBC (Bld) 0.7 % [facility] Blood hemoglobin measurement (mass/volume)Ordered By: Julee Davies on 05-27-2021 Hemoglobin (Bld) [Mass/Vol] 11.4 g/dL 13.0-17.0 [facility] Blood leukocytes automated c ount (number/volume)Ordered By: Julee Davies on 05-27-2021 WBC (Bld) [#/Vol] 6.1 10*3/uL 4.5-11.0 [facility] Cholesterol [Mass/volume] in Serum or PlasmaOrdered By: Julee Davies on 05-27-2021 Cholesterol [Mass/Vol] 129 mg/dL 140-200 [facility] Comment on above: Chol less than 200 m g/dl low riskChol 201-239 mg/dl borderline riskChol 240 mg/dl and greater high risk Cholesterol in LDL Calc [Mas s/Vol]Ordered By: Julee Davies on 03-08-2022 Cholesterol in LDL [Mass/Vol] 67 mg/dL 0-100 [facility] Comment on above: LDL ATP III CLASSIFI CATIONLDL less than 100 mg/dL OptimalLDL 100-129 mg/dL Near or above optimalLDL 130-159 mg/dL Borderline highLDL 160-189 mg/dL HighLDL greater than 189 mg/dL Very high Cholesterol in VLDL Calc [Ma ss/Vol]Ordered By: Julee Davies on 05-27-2021 Cholesterol in VLDL [Mass/Vol] 27 mg/dL [facility] Creatinine and Glomerular fi ltration rate.predicted panel (S/P/Bld)Ordered By: Julee Davies on 05-27-2021 Creatinine [Mass/Vol] 1.86 mg/dL 0.64-1.27 [facility] Eosinophils Auto (Bld) [#/Vo l]Ordered By: Julee Davies on 05-27-2021 Eosinophils (Bld) [#/Vol] 0.2 10*3/uL 0.0-0.45 [facility] Eosinophils/100 WBC Auto (Bl d)Ordered By: Julee Davies on 05-27-2021 Eosinophils/100 WBC (Bld) 3.7 % [facility] Erythrocyte distribution wid th Auto (RBC) [Ratio]Ordered By: Julee Davies on 05-27-2021 Erythrocyte distribution width (RBC) [Ratio] 14.9 % 12.0-14.8 [facility] Estimated glomerular filtrat ion rate (GFR) non- AmericanOrdered By: Julee Davies on 05-27-2021 GFR/1.73 sq M.predicted among non-blacks MDRD (S/P/Bld) [Vol rate/Area] 35 mL/Min [facility] Globulin Calc (S) [Mass/Vol] Ordered By: Julee Davies on 05-27-2021 Globulin (S) [Mass/Vol] 2.9 g/dL [facility] Glucose mean value [Mass/vol ume] in Blood Estimated from glycated hemoglobinOrdered By: Julee Davies on 05-27-2021 Average glucose Estimated from glycated hemoglobin (Bld) [Mass/Vol] 209 mg/dL [facility] Hematocrit Auto (Bld) [Volum e fraction]Ordered By: Julee Davies on 05-27-2021 Hematocrit (Bld) [Volume fraction] 34.1 % 38.8-50.0 [facility] Hemoglobin A1c percentageOrd ered By: Julee Davies on 05-27-2021 HbA1c (Bld) [Mass fraction] 8.9 % 4.3-5.6 [facility] Comment on above: Increased risk for d iabetes: 5.7 - 6.4diabetes: >6.4glycemic control for adults with diabetes: <7.0 Laboratory - Hematology and Cell countsOrdered By: Julee Davies on 05-27-2021 Nucleated RBC/100 WBC (Bld) [Ratio] 0.2 % 0-0.5 [facility] Lymphocytes Auto (Bld) [#/Vo l]Ordered By: Julee Davies on 05-27-2021 Lymphocytes (Bld) [#/Vol] 1.1 10*3/uL 1.00-4.8 [facility] Lymphocytes/100 WBC Auto (Bl d)Ordered By: Julee Davies on 05-27-2021 Lymphocytes/100 WBC (Bld) 17.9 % [facility] MCH Auto (RBC) [Entitic mass ]Ordered By: Julee Davies on 05-27-2021 MCH (RBC) [Entitic mass] 28.3 pg 27.5-35.2 [facility] MCHC Auto (RBC) [Mass/Vol]Or dered By: Julee Davies on 05-27-2021 MCHC (RBC) [Mass/Vol] 33.5 g/dL 32.5-35.6 [facility] MCV Auto (RBC) [Entitic vol] Ordered By: Julee Davies on 05-27-2021 MCV (RBC) [Entitic vol] 84.5 fL 83.5-101 [facility] Monocytes Auto (Bld) [#/Vol] Ordered By: Julee Davies on 05-27-2021 Monocytes (Bld) [#/Vol] 0.5 10*3/uL 0.0-0.8 [facility] Monocytes/100 WBC Auto (Bld) Ordered By: Julee Davies on 05-27-2021 Monocytes/100 WBC (Bld) 7.9 % [facility] Neutrophils Auto (Bld) [#/Vo l]Ordered By: Julee Davies on 05-27-2021 Neutrophils (Bld) [#/Vol] 4.3 10*3/uL 1.8-7.7 [facility] Neutrophils/100 WBC Auto (Bl d)Ordered By: Julee Davies on 05-27-2021 Neutrophils/100 WBC (Bld) 69.8 % [facility] No Panel InformationOrdered By: Julee Davies on 05-27-2021 25-Hydroxy Vitamin D Total 23.8 ng/mL 30-100 [facility] Comment on above: VITAMIN D STATUS 25( [place])VITAMIN D RANGE (ng/mL) Deficient <20 Insufficient 20 to <30Sufficient 30 to 100Reference: Ely MF,Brad NC, Kristy ORTEGA, et al. Evaluation,treatment, and prevention of vitamin D deficiency; an Endocrine Society clinical practice guideline. JCEM. 2010; 96(7):1911-30. Estimated GFR () 43 mL/Min [facility] Comment on above: GFR estimated refere nce range: According to KDOQI guidelines, <60 ml/min/1.73m2 is sufficient to diagnose a patient with chronic kidney disease. Pharmacy Creatinine Clearance (Chem N/A [facility] Platelet Estimate Decreased Normal [facility] Platelet Morphology Comment Normal Normal [facility] Platelet mean volume Auto (B ld) [Entitic vol]Ordered By: Julee Davies on 05-27-2021 Platelet mean volume (Bld) [Entitic vol] 10.6 fL 6.6-10.1 [facility] Platelets Auto (Bld) [#/Vol] Ordered By: Julee Davies on 05-27-2021 Platelets (Bld) [#/Vol] 129 10*3/uL 150-450 [facility] Protein [Mass/volume] in Ser um or PlasmaOrdered By: Julee Davies on 05-27-2021 Protein [Mass/Vol] 6.0 g/dL 6.1-7.9 [facility] RBC Auto (Bld) [#/Vol]Ordere d By: Jluee Davies on 05-27-2021 RBC (Bld) [#/Vol] 4.03 10*6/uL 3.90-5.60 [facility] RBC morphologyOrdered By: Maurice Davies on 05-27-2021 RBC morphology finding Nom (Bld) Normal [facility] Serum or plasma alanine lopez otransferase measurement without P-5'-P (enzymatic activiOrdered By: Julee Davies on 05-27-2021 ALT No additional P-5'-P [Catalytic activity/Vol] 7 U/L 10-60 [facility] Serum or plasma albumin/glob ulin mass ratioOrdered By: Julee Davies on 05-27-2021 Albumin/Globulin [Mass ratio] 1.1 {ratio} [facility] Serum or plasma alkaline cande sphatase measurement (enzymatic activity/volume)Ordered By: Julee Davies on 05-27-2021 ALP [Catalytic activity/Vol] 52 U/L 32-92 [facility] Serum or plasma aspartate am inotransferase measurement (enzymatic activity/volume)Ordered By: Julee Davies on 05-27-2021 AST [Catalytic activity/Vol] 11 U/L 10-42 [facility] Serum or plasma calcium abhijit urement (mass/volume)Ordered By: Julee Davies on 05-27-2021 Calcium [Mass/Vol] 9.0 mg/dL 8.2-10.2 [facility] Serum or plasma chloride marylin surement (moles/volume)Ordered By: Julee Davies on 05-27-2021 Chloride [Moles/Vol] 104 mmol/L 95-114 [facility] Serum or plasma glucose abhijit urement (mass/volume)Ordered By: Julee Davies on 05-27-2021 Glucose [Mass/Vol] 183 mg/dL 70-100 [facility] Comment on above: ADA recommended refe rence rangeRandom Glucose Reference Range is dependent on time and content of last meal. Glucose of more than 200 mg/dL in a nonstressed, ambulatory subject supports the diagnosis of Diabetes Mellitus. Serum or plasma high density lipoprotein (HDL) cholesterol measurementOrdered By: Julee Davies on 05-27-2021 Cholesterol in HDL [Mass/Vol] 35 mg/dL 29-71 [facility] Comment on above: HDL CHOL ATP-III CLA SSIFICATION Cardiovascular RiskHDL > or equal to 60 mg/dL LOWHDL < 40 mg/dL HIGH Serum or plasma potassium me asurement (moles/volume)Ordered By: Julee Davies on 05-27-2021 Potassium [Moles/Vol] 4.1 mmol/L 3.5-5.1 [facility] Serum or plasma sodium measu rement (moles/volume)Ordered By: Julee Davies on 05-27-2021 Sodium [Moles/Vol] 140 mmol/L 136-146 [facility] Serum or plasma total biliru bin measurement (mass/volume)Ordered By: Julee Davies on 05-27-2021 Bilirubin [Mass/Vol] 0.4 mg/dL 0.3-1.2 [facility] Serum or plasma total carbon dioxide measurement (moles/volume)Ordered By: Julee Davies on 05-27-2021 CO2 [Moles/Vol] 26.1 mmol/L 22.0-30.0 [facility] Serum or plasma total choles terol/high density lipoprotein (HDL) cholesterol mass ratOrdered By: Julee Davies on 05-27-2021 Cholesterol.total/Denise sterol in HDL [Mass ratio] 3.7 {ratio} [facility] Serum or plasma urea nitroge n measurement (mass/volume)Ordered By: Julee Davies on 05-27-2021 Urea nitrogen [Mass/Vol] 38 mg/dL 9-23 [facility] TSH DL <= 0.005 mIU/L QnOrde red By: Julee Davies on 05-27-2021 TSH Qn 4.10 m[IU]/L 0.45-5.33 [facility] Triglyceride [Mass/volume] i n Serum or PlasmaOrdered By: Julee Davies on 05-27-2021 Triglyceride [Mass/Vol] 136 mg/dL 35-149 [facility] Comment on above: TRIG ATP III [...] Authorization (EUA) and has been verified by [facility] ([facility]). This test is only authorized for the duration of time that circumstances exist to justify the authorization of the emergency use of in vitro diagnostic tests for the detection of SARS-CoV-2 virus and/or diagnosis of COVID-19 infection under section 564(b)(1) of the Act, 21 U.S.C. 360bbb-3(b)(1), unless the authorization is terminated or revoked sooner. [facility] is certified under CLIA-88 as qualified to perform high complexity testing. Testing is performed in the [facility] located at [address] [place] [address].SARS-CoV-2/Flu/RSV Multiplex Test: Fact sheet for providers: https://www.fda.gov/media/890354/downloadFact sheet for patients: https://www.fda.gov/media/279663/download Coronavirus 2019 RNA by PCR, Screening Asymptomtic Canceled [facility] [facility] [address] DO Work Phone: Comment on above: SOURCE: Nasal, Nasop haryngeal.This test has received FDA Emergency Use Authorization (EUA) and has been verified by [facility] ([facility]). This test is only authorized for the duration of time that circumstances exist to justify the authorization of the emergency use of in vitro diagnostic tests for the detection of SARS-CoV-2 virus and/or diagnosis of COVID-19 infection under section 564(b)(1) of the Act, 21 U.S.C. 360bbb-3(b)(1), unless the authorization is terminated or revoked sooner. [facility] is certified under CLIA-88 as qualified to perform high complexity testing. Testing is performed in the [facility] located at [address] [place] [address].SARS-CoV-2/Flu/RSV Multiplex Test: Fact sheet for providers: https://www.fda.gov/media/263728/downloadFact sheet for patients: https://www.fda.gov/media/916258/download Laboratory - Chemistry and C hemistry - challengeon 12-24-2020 Glucose [Mass/Vol] 203 mg/dL above high threshold 74 - 99 [facility] [facility] [address] DO Work Phone: Laboratory - Hematology and Cell countson 12-24-2020 Erythrocyte distribution width (RBC) [Ratio] 12.7 % See Below [facility] 260 DO Work Phone: Comment on [...] [Mass/Vol] 32.8 g/dL See Below [facility] DO Work Phone: Comment on [...] to view the study images Normal [facility] DO Work Phone: 0.0 {/100_WBC} 0.0-0.0 [facility] DO Work Phone: Renal Function Panelon 12-24 Albumin BCP dye [Mass/Vol] 3.6 g/dL 3.4 - 5.0 [facility] 260 DO Work Phone: Anion gap [Moles/Vol] 15 mmol/L 10 - 20 [facility] 260 DO Work Phone: Calcium [Mass/Vol] 9.0 mg/dL 8.6 - 10.6 [facility] 260 DO Work Phone: [phone] Chloride [Moles/Vol] 109 mmol/L above high threshold 98 - 107 [facility] 260 DO Work Phone: CO2 [Moles/Vol] 24 mmol/L 21 - 32 [facility] 260 DO Work Phone: Creatinine [Mass/Vol] 1.77 mg/dL above high threshold See Below [facility] 260 DO Work Phone: Comment on above: Reference Range: 0.5 0 - 1.30 Glucose [Mass/Vol] 195 mg/dL above high threshold 74 - 99 [facility] 260 DO Work Phone: Phosphate [Mass/Vol] [...] Function Panel 45 {mL/min/1.73m2} Abnormal >60 [facility] 260 DO Work Phone: Comment on above: CALCULATIONS OF ERNST MATED GFR ARE PERFORMED USING THE MDRD STUDY EQUATION FOR THE IDMS-TRACEABLE CREATININE METHODS. CLIN CHEM 2007;53:766-72 Renal Function Panel 37 {mL/min/1.73m2} Abnormal >60 [facility] 260 DO Work Phone: Tacrolimuson 12-24-2020 Tacrolimus (Bld) [Mass/Vol] 5.4 ng/mL 2.0 - 15.0 [facility] 260 DO Work Phone: Comment on above: NOTE: Result was obt ained using a chemiluminescent microparticle immunoassay (CMIA) on the Individualized [employer] Aide i system.Optimal therapeutic ranges for immuno-suppressant drugs depend upon an individualpatient's current clinical state, type oforgan transplant, time post-transplant,co-administration of other immunosuppressants,and other clinical factors. The results ofthis test should be correlated with additionalclinical and laboratory data before changesin treatment regimens are made. CT Head without Contraston 1 CT Head limited WO contrast Normal [facility] 260 DO Work Phone: [phone] Laboratory - Chemistry and C hemistry - challengeon 12-23-2020 Glucose [Mass/Vol] 151 mg/dL above high threshold 74 - 99 [facility] 260 DO Work Phone: [phone] Glucose [Mass/Vol] 241 mg/dL above high threshold 74 - 99 [facility] 260 DO Work Phone: [phone] Glucose [Mass/Vol] 195 mg/dL above high threshold 74 - 99 [facility] 260 DO Work Phone: [phone] Glucose [Mass/Vol] 160 mg/dL above high threshold 74 - 99 [facility] 260 DO Work Phone: [phone] Laboratory - Hematology and Cell countson 12-23-2020 Erythrocyte distribution width (RBC) [Ratio] 12.5 % See Below [facility] 260 DO Work Phone: [phone] Comment on above: Reference Range: 11. 5 - 14.5 Hematocrit (Bld) [Volume fraction] 34.3 % below low threshold See Below [facility] 260 DO Work Phone: [phone] Comment on above: Reference Range: 41. 0 - 52.0 Hemoglobin (Bld) [Mass/Vol] 11.1 g/dL below low threshold See Below [facility] 260 DO Work Phone: [phone] Comment on above: Reference Range: 13. 5 - 17.5 MCHC (RBC) [Mass/Vol] 32.4 g/dL See Below [facility] 260 DO Work Phone: [phone] Comment on above: Reference Range: 32. 0 - 36.0 MCV (RBC) [Entitic vol] 90 fL 80 - 100 [facility] 260 DO Work Phone: [phone] Platelets (Bld) [#/Vol] 106 10*3/uL below lo w threshold 150 - 450 [facility] 260 DO Work Phone: [phone] RBC (Bld) [#/Vol] 3.83 {x10E12/L} below low threshold See Below [facility] 260 DO Work Phone: [phone] Comment on above: Reference Range: 4.5 0 - 5.90 WBC (Bld) [#/Vol] 5.2 10*3/uL 4.4 - 11.3 [facility] 260 DO Work Phone: [phone] No Panel Informationon 12-23 0.0 {/100_WBC} 0.0-0.0 [facility] DO Work Phone: [phone] Renal Function Panelon 12-23 Albumin BCP dye [Mass/Vol] 3.6 g/dL 3.4 - 5.0 [facility] 260 DO Work Phone: [phone] Anion gap [Moles/Vol] 14 mmol/L 10 - 20 [facility] 260 DO Work Phone: [phone] Calcium [Mass/Vol] 8.9 mg/dL 8.6 - 10.6 [facility] 260 DO Work Phone: [phone] Chloride [Moles/Vol] 109 mmol/L above high threshold 98 - 107 [facility] 260 DO Work Phone: [phone] CO2 [Moles/Vol] 23 mmol/L 21 - 32 [facility] 260 DO Work Phone: [phone] Creatinine [Mass/Vol] 1.71 mg/dL above high threshold See Below [facility] 260 DO Work Phone: Comment on above: Reference Range: 0.5 0 - 1.30 Glucose [Mass/Vol] 146 mg/dL above high threshold 74 - 99 [facility] 260 DO Work Phone: Phosphate [Mass/Vol] [...] 4.2 mmol/L 3.5 - 5.3 [facility] 260 DO Work Phone: Sodium [Moles/Vol] 142 mmol/L 136 - 145 [facility] 260 DO Work Phone: Urea nitrogen [Mass/Vol] 50 mg/dL above high threshold 6 - 23 [facility] 260 DO Work Phone: Renal Function Panel 47 {mL/min/1.73m2} Abnormal >60 [facility] 260 DO Work Phone: Comment on above: CALCULATIONS OF ERSNT MATED GFR ARE PERFORMED USING THE MDRD STUDY EQUATION FOR THE IDMS-TRACEABLE CREATININE METHODS. CLIN CHEM 2007;53:766-72 Renal Function Panel 39 {mL/min/1.73m2} Abnormal >60 [facility] 260 DO Work Phone: Tacrolimuson 12-23-2020 Tacrolimus (Bld) [Mass/Vol] 5.9 ng/mL 2.0 - 15.0 [facility] 260 DO Work Phone: Comment on above: NOTE: Result was obt ained using a chemiluminescent microparticle immunoassay (CMIA) on the Individualized [employer] Aide i system.Optimal therapeutic ranges for immuno-suppressant drugs [...] [facility] DO Work Phone: [phone] Glucose [Mass/Vol] 146 mg/dL above high threshold 74 - 99 [facility] 260 DO Work Phone: [phone] Glucose [Mass/Vol] 217 mg/dL above high threshold 74 - 99 [facility] 260 DO Work Phone: [phone] Glucose [Mass/Vol] 145 mg/dL above high threshold 74 - 99 [facility] 260 DO Work Phone: [phone] Glucose [Mass/Vol] 142 mg/dL above high threshold 74 - 99 [facility] 260 DO Work Phone: [phone] Laboratory - Hematology and Cell countson 12-22-2020 Erythrocyte distribution width (RBC) [Ratio] 12.6 % See Below [facility] 260 DO Work Phone: [phone] Comment on above: Reference Range: 11. 5 - 14.5 Hematocrit (Bld) [Volume fraction] 33.0 % below low threshold See Below [facility] 260 DO Work Phone: Comment on above: Reference Range: 41. 0 - 52.0 Hemoglobin (Bld) [Mass/Vol] 10.7 g/dL below low threshold See Below [facility] 260 DO Work Phone: Comment on above: Reference Range: 13. 5 - 17.5 MCHC (RBC) [Mass/Vol] 32.4 g/dL See Below [facility] 260 DO Work Phone: [phone] Comment on above: Reference Range: 32. 0 - 36.0 MCV (RBC) [Entitic vol] 91 fL 80 - 100 [facility] 260 DO Work Phone: [phone] Platelets (Bld) [#/Vol] 107 10*3/uL below lo w threshold 150 - 450 [facility] 260 DO Work Phone: [phone] RBC (Bld) [#/Vol] 3.62 {x10E12/L} below low threshold See Below [facility] 260 DO Work Phone: [phone] Comment on above: Reference Range: 4.5 0 - 5.90 WBC (Bld) [#/Vol] 5.0 10*3/uL 4.4 - 11.3 [facility] 260 DO Work Phone: [phone] Panel Informationon 12-22 0.0 {/100_WBC} 0.0-0.0 [facility] 260 DO Work Phone: [phone] Renal Function Panelon 12-22 Albumin BCP dye [Mass/Vol] 3.5 g/dL 3.4 - 5.0 [facility] 260 DO Work Phone: [phone] Anion gap [Moles/Vol] 15 mmol/L 10 - 20 [facility] 260 DO Work Phone: [phone] Calcium [Mass/Vol] 8.9 mg/dL 8.6 - 10.6 [facility] 260 DO Work Phone: [phone] Chloride [Moles/Vol] 111 mmol/L above high threshold 98 - 107 [facility] 260 DO Work Phone: [phone] CO2 [Moles/Vol] 23 mmol/L 21 - 32 [facility] 260 DO Work Phone: Creatinine [Mass/Vol] [...] Function Panel 39 {mL/min/1.73m2} Abnormal >60 [facility] 260 DO Work Phone: Comment on [...] a chemiluminescent microparticle immunoassay (CMIA) on the Individualized [employer] Plan Aide i system.Optimal therapeutic ranges for immuno-suppressant drugs depend upon an individualpatient's current clinical state, type oforgan transplant, time post-transplant,co-administration of other immunosuppressants,and other clinical factors. The results ofthis test should be correlated with additionalclinical and laboratory data before changesin treatment regimens are made. CT Chest Abdomen Pelvis wo C ontraston 12-21-2020 CT Chest and Abdomen and Pelvis WO contrast Normal [facility] 260 DO Work Phone: Hemoglobin A1Con 12-21-2020 Glucose [Mass/Vol] 148 mg/dL [facility] 260 DO Work Phone: HbA1c (Bld) [Mass fraction] Canceled [facility] 260 DO Work Phone: Comment on above: Diagnosis of Diabete s-Adults Non-Diabetic: < or = 5.6% Increased risk for developing diabetes: 5.7-6.4% Diagnostic of diabetes: > or = 6.5%. Monitoring of Diabetes Age (y) Therapeutic Goal (%) Adults: >18 <7.0 Pediatrics: 13-18 <7.5 7-12 <8.0 0- 6 7.5-8.5 [place] [employer]. Diabetes Care 33(S1)Mar 2009. HbA1c [...] 13-18 <7.5 7-12 <8.0 0- 6 7.5-8.5 [place] [employer]. Diabetes Care 33(S1), Mar 2009. Hemoglobin A1C Canceled [facility] 260 DO Work Phone: Laboratory - Chemistry and C hemistry - challengeon 12-21-2020 Glucose [Mass/Vol] 191 mg/dL above high threshold 74 - 99 [facility] 260 DO Work Phone: Glucose [Mass/Vol] 203 mg/dL above high threshold 74 - 99 [facility] 260 DO Work Phone: [phone] Glucose [Mass/Vol] 229 mg/dL above high threshold 74 - 99 [facility] 260 DO Work Phone: [phone] Glucose [Mass/Vol] 136 mg/dL above high threshold 74 - 99 [facility] 260 DO Work Phone: [phone] Laboratory - Hematology and Cell countson 12-21-2020 Erythrocyte distribution width (RBC) [Ratio] 12.8 % See Below [facility] 260 DO Work Phone: [phone] Comment on above: Reference Range: 11. 5 - 14.5 Hematocrit (Bld) [Volume fraction] 35.6 % below low threshold See Below [facility] 260 DO Work Phone: [phone] Comment on above: Reference Range: 41. 0 - 52.0 Hemoglobin (Bld) [Mass/Vol] 12.0 g/dL below low threshold See Below [facility] 260 DO Work Phone: Comment on above: Reference Range: 13. 5 - 17.5 MCHC (RBC) [Mass/Vol] 33.7 g/dL See Below [facility] 260 DO Work Phone: Comment on above: Reference Range: 32. 0 - 36.0 MCV (RBC) [Entitic vol] 89 fL 80 - 100 [facility] 260 DO Work Phone: Platelets (Bld) [#/Vol] 124 10*3/uL below lo w threshold 150 - 450 [facility] 260 DO Work Phone: [phone] RBC (Bld) [#/Vol] 4.01 {x10E12/L} below low threshold See Below [facility] 260 DO Work Phone: [phone] Comment on above: Reference Range: 4.5 0 - 5.90 WBC (Bld) [#/Vol] 6.2 10*3/uL 4.4 - 11.3 [facility] 260 DO Work Phone: No Panel Informationon 12-21 0.0 {/100_WBC} 0.0-0.0 [facility] 260 DO Work Phone: [phone] Renal Function Panelon 12-21 Albumin BCP dye [Mass/Vol] 3.8 g/dL 3.4 - 5.0 [facility] 260 DO Work Phone: [phone] Anion gap [Moles/Vol] 15 mmol/L 10 - 20 [facility] 260 DO Work Phone: [phone] Calcium [Mass/Vol] 8.8 mg/dL 8.6 - 10.6 [facility] 260 DO Work Phone: [phone] Chloride [Moles/Vol] 110 mmol/L above high threshold 98 - 107 [facility] 260 DO Work Phone: [phone] CO2 [Moles/Vol] 23 mmol/L 21 - 32 [facility] 260 DO Work Phone: [phone] Creatinine [Mass/Vol] 2.22 mg/dL above high threshold See Below [facility] 260 DO Work Phone: [phone] Comment on above: Reference Range: 0.5 0 [...] 4.1 mmol/L 3.5 - 5.3 [facility] 260 DO Work Phone: Sodium [Moles/Vol] [...] a chemiluminescent microparticle immunoassay (CMIA) on the Individualized [employer] Aide i system.Optimal therapeutic ranges for immuno-suppressant drugs depend upon an individualpatient's current clinical state, type oforgan transplant, time post-transplant,co-administration of other immunosuppressants,and other clinical factors. The results ofthis test should be correlated with additionalclinical and laboratory data before changesin treatment regimens are made. Coronavirus 2019 RNA by PCR, Symptomaticon 12-20-2020 Coronavirus 2019 RNA by PCR, Symptomatic Not detected Normal See Below [facility] 260 DO Work Phone: Comment on above: SOURCE: Nasal, Nasop haryngealReference Range: Not Detected.This test has received FDA Emergency Use Authorization (EUA) and has been verified by [facility] ([facility]). This test is only authorized for the duration of time that circumstances exist to justify the authorization of the emergency use of in vitro diagnostic tests for the detection of SARS-CoV-2 virus and/or diagnosis of COVID-19 infection under section 564(b)(1) of the Act, 21 U.S.C. 360bbb-3(b)(1), unless the authorization is terminated or revoked sooner. [facility] is certified under CLIA-88 as qualified to perform high complexity testing. Testing is performed in the [facility] located at [address] [place] [address].SARS-CoV-2/Flu/RSV Multiplex Test: Fact sheet for providers: https://www.fda.gov/media/030378/downloadFact sheet for patients: https://www.fda.gov/media/282126/download Date and time of symptom onset Canceled [facility] 260 DO Work Phone: Coronavirus 2019 RNA by PCR, Symptomatic Canceled [facility] 260 DO Work Phone: Comment on [...] this test method. Fact sheet for providers: www.fda.gov/media/159973/downloadFact sheet for patients: www.fda.gov/media/273120/downloadThis test has received FDA Emergency Use Authorization (EUA) and has been verified by [facility] ([facility]). This test is only authorized for the duration of time that circumstances exist to justify the authorization of the emergency use of in vitro diagnostic tests for the detection of SARS-CoV-2 virus and/or diagnosis of COVID-19 infection under section 564(b)(1) of the Act, 21 U.S.C. 360bbb-3(b)(1), unless the authorization is terminated or revoked sooner. [facility] is certified under CLIA-88 as qualified to perform high complexity testing. Testing is performed in the [facility] laboratories located at [address] [place] [address]. Folate, Serumon 12-20-2020 Folate [Mass/Vol] ng/mL >5.0 [facility] 260 DO Work Phone: Comment on [...] above high threshold 74 - 99 [facility] 260 DO Work Phone: TSH Qn 2.00 m[IU]/L See Below [facility] 260 DO Work Phone: Comment on above: Reference Range: 0.4 4 - 3.98 TSH testing is performed using different testing methodology at [facility] than at other [facility]. Direct result comparisons should only [...] [facility] 260 DO Work Phone: [phone] PT Coag (PPP) [Time] Canceled [facility] 260 DO Work Phone: [phone] Laboratory - Hematology and Cell countson 12-20-2020 Erythrocyte distribution width (RBC) [Ratio] 12.9 % See Below [facility] 260 DO Work Phone: [phone] Comment on above: Reference Range: 11. 5 - 14.5 Hematocrit (Bld) [Volume fraction] 35.8 % below low threshold See Below [facility] 260 DO Work Phone: [phone] Comment on above: Reference Range: 41. 0 - 52.0 Hemoglobin (Bld) [Mass/Vol] 11.7 g/dL below low threshold See Below [facility] 260 DO Work Phone: [phone] Comment on above: Reference Range: 13. 5 - 17.5 MCHC (RBC) [Mass/Vol] 32.7 g/dL See Below [facility] 260 DO Work Phone: [phone] Comment on above: Reference Range: 32. 0 - 36.0 MCV (RBC) [Entitic vol] 90 fL 80 - 100 [facility] 260 DO Work Phone: [phone] Platelets (Bld) [#/Vol] 131 10*3/uL below lo w threshold 150 - 450 [facility] 260 DO Work Phone: [phone] RBC (Bld) [#/Vol] 3.97 {x10E12/L} below low threshold See Below [facility] 260 DO Work Phone: [phone] Comment on above: Reference Range: 4.5 0 - 5.90 WBC (Bld) [#/Vol] 7.3 10*3/uL 4.4 - 11.3 [facility] 260 DO Work Phone: Lactate, Levelon 12-20-2020 Lactate [Moles/Vol] 1.0 mmol/L 0.4 - 2.0 [facility]di[facility] 260 DO Work Phone: Comment on [...] above: . <100 pg/mL - Heart failure [id number] pg/mL - Intermediate probability of acute heart. [...] XR Chest Single view Normal [facility] [facility] 260 DO Work Phone: Renal Function Panelon 12-20 Albumin BCP dye [Mass/Vol] 3.9 g/dL 3.4 - 5.0 [facility] 260 DO Work Phone: [phone] Anion gap [Moles/Vol] 17 mmol/L 10 - 20 [facility] 260 DO Work Phone: [phone] Calcium [Mass/Vol] 9.2 mg/dL 8.6 - 10.6 [facility] 260 DO Work Phone: [phone] Chloride [Moles/Vol] 112 mmol/L above high threshold 98 - 107 [facility] 260 DO Work Phone: [phone] [...] above high threshold 136 - 145 [facility] 260 DO Work Phone: [phone] Urea nitrogen [Mass/Vol] 74 mg/dL above high threshold 6 - 23 [facility] 260 DO Work Phone: Renal Function Panel 31 {mL/min/1.73m2} Abnormal >60 [facility] 260 DO Work Phone: Comment on [...] a chemiluminescent microparticle immunoassay (CMIA) on the Individualized [employer] Plan Aide i system.Optimal therapeutic ranges for immuno-suppressant drugs [...] is performed using different testing methodology at [facility] than at other [facility]. Direct result comparisons should only [...] [Moles/Vol] 11 mmol/L 9 - 17 mmol/L [facility] Phone: Calcium [Mass/Vol] 9.3 mg/dL 8.6 - 10. 4 mg/dL [facility] Phone: Chloride [Moles/Vol] 107 mmol/L 98 - 10 7 mmol/L [facility] Phone: CO2 [Moles/Vol] 23 mmol/L 20 - 31 mmol/L [facility] Phone: Creatinine [Mass/Vol] 2.53 mg/dL High 0.70 - 1.20 mg/dL [facility] Phone: GFR 30 mL/min Low >60 I[facility] Phone: GFR Non- 25 mL/min Low >60 [facility] Phone: Glucose [Mass/Vol] 160 mg/dL High 70 - 99 mg/dL [facility] Phone: Interpretation and review of laboratory results Abnormal [facility] Phone: Potassium [Moles/Vol] 4.5 mmol/L 3.7 - 5.3 mmol/L [facility] Phone: Sodium [Moles/Vol] 141 mmol/L 135 - 144 mmol/L [facility] Phone: Urea nitrogen (BldV) [Mass/Vol] 76 mg/dL High 8 - 23 mg/dL [facility] Phone: Urea nitrogen/Creatinine (Bld) [Mass ratio] 30 High [facility] Phone: [facility] Phone: Laboratory - Chemistry and C hemistry - challengeOrdered By: Manuel Conner on 12-19-2020 GFR/1.73 sq M.predicted MDRD (S/P/Bld) [Vol rate/Area] [facility] Phone: Comment on above: Average GFR for 70 o r more years old: 75 mL/min/1.73sq m Chronic Kidney Disease: <60 mL/min/1.73sq m Kidney failure: <15 mL/min/1.73sq m eGFR calculated using average adult body mass. Additional eGFR calculator available at: http://www.[employer]/DocOnYou_crcl_2012.htm Stage 1: Some kidney damage normal GFR Stage 2: Mild kidney damage GFR 60-89 Stage 3: Moderate kidney damage GFR 30-59 Stage 4: Severe kidney damage GFR 15-29 Stage 5: Severe kidney damage GFR <15 ESRD - chronic treatment by dialysis or transplant TroponinOrdered By: Manuel Conner on 12-19-2020 Interpretation and review of laboratory results Abnormal [facility] Phone: Troponin Interp NOT REPORTED [facility] Phone: Troponin T NOT REPORTED <0.03 ng/mL [facility] Phone: Troponin, High Sensitivity 57 ng/L Critically high 0 - 22 ng/L [facility] Phone: Comment on above: High Sensitivity Troponin values cannot be compared with other Troponin methodologies. Patients with high levels of Biotin oral intake (i.e >5mg/day) may have falsely decreased Troponin levels. Samples collected within 8 hours of biotin intake may require additional information for diagnosis. [facility] Phone: Basic Metabolic PanelOrdered By: Manuel Cnoner on 12-18-2020 Anion gap [Moles/Vol] 14 mmol/L 9 - 17 mmol/L [facility] Phone: Calcium [Mass/Vol] 9.3 mg/dL 8.6 - 10. 4 mg/dL [facility] Phone: Chloride [Moles/Vol] 104 mmol/L 98 - 10 7 mmol/L [facility] Phone: CO2 [Moles/Vol] 22 mmol/L 20 - 31 mmol/L [facility] Phone: Creatinine [Mass/Vol] 4.1 mg/dL High 0.70 - 1.20 mg/dL [facility] Phone: GFR 17 mL/min Low >60 ITC Phone: GFR Non- 14 mL/min Low >60 [facility] Phone: Glucose [Mass/Vol] 148 mg/dL High 70 - 99 mg/dL [facility] Phone: Potassium [Moles/Vol] 5.2 mmol/L 3.7 - 5.3 mmol/L [facility] Phone: Sodium [Moles/Vol] 140 mmol/L 135 - 144 mmol/L [facility] Phone: Urea nitrogen (BldV) [Mass/Vol] 87 mg/dL High 8 - 23 mg/dL [facility] Phone: Urea nitrogen/Creatinine (Bld) [Mass ratio] 21 High [facility] Phone: Brain Natriuretic PeptideOrd ered By: Manuel Conner on 12-18-2020 BNP Interpretation Pro-BNP Reference Range: [facility] Phone: Comment on above: Rule Out: <300 Pagan Zone: Age <50 300-450 Age 50-75 300-900 Age >75 300-1800 Usually represents mild to moderate HF but other cardiopulmonary causes cannot be ruled out. Rule In: Age <50 >450 Age 50-75 >900 Age >75 >1800 Interpretation and review of laboratory results Abnormal [facility] Phone: Natriuretic peptide B (Bld) [Mass/Vol] 846 pg/mL High <300 [facility] Phone: Comment on above: Pro-BNP results halie ot be compared to BNP results. [facility] Phone: EKG Rhythm StripOrdered By: Unknown Result on 12-18-2020 [facility] Phone: [facility] Phone: Glucose, Whole BloodOrdered By: Manuel Conner on 12-18-2020 Glucose [Mass/Vol] 152 mg/dL High 74 - 100 mg/dL [facility] Phone: Interpretation and review of laboratory results Abnormal [facility] Phone: [facility] Phone: Laboratory - Chemistry and C hemistry - challengeOrdered By: Manuel Conner on 12-18-2020 GFR/1.73 sq M.predicted MDRD (S/P/Bld) [Vol rate/Area] [facility] Phone: Comment on above: Average GFR for 70 o r more years old: 75 mL/min/1.73sq m Chronic Kidney Disease: <60 mL/min/1.73sq m Kidney failure: <15 mL/min/1.73sq m eGFR calculated using average adult body mass. Additional eGFR calculator available at: http://www.[employer].com/multiple_crcl_2012.htm Stage 1: Some kidney damage normal GFR Stage 2: Mild kidney damage GFR 60-89 Stage 3: Moderate kidney damage GFR 30-59 Stage 4: Severe kidney damage GFR 15-29 Stage 5: Severe kidney damage GFR <15 ESRD - chronic treatment by dialysis or transplant No Panel InformationOrdered By: Manuel Conner on 12-18-2020 Interpretation and review of laboratory results Abnormal [facility] Phone: [facility] Phone: TroponinOrdered By: Manuel Conner on 12-18-2020 Troponin Interp NOT REPORTED [facility] Phone: Troponin T NOT REPORTED <0.03 ng/mL [facility] Phone: Troponin, High Sensitivity 71 ng/L Critically high 0 - 22 ng/L [facility] Phone: Comment on above: High Sensitivity Troponin [...] Consider advancement by 5-7 cm, if able. [facility] Phone: EXAMINATION: ONE XRA Y VIEW OF [...] cardiomegaly. Bony thorax is without acute abnormality. [facility] Phone: Roger, Mhpn Incoming R adiant Results From [facility] - 12/18/2020 1:31 PM EDT EXAMINATION: ONE [...] Consider advancement by 5-7 cm, if able. [facility] Phone: [facility] Phone: XR CHEST PORTABLEOrdered By: Manuel Conner on 12-18-2020 Mild prominence of interstitial markings suggests mild vascular congestion with mild streaky bibasilar atelectasis [facility] Phone: EXAMINATION: ONE XRA Y VIEW OF THE CHEST 12/18/2020 11:18 am COMPARISON: December 17, 2020, chest examination HISTORY: ORDERING SYSTEM PROVIDED HISTORY: Congestion TECHNOLOGIST PROVIDED HISTORY: Congestion FINDINGS: Median sternotomy. Stable cardiomegaly/mild tortuosity of the thoracic aorta Mild streaky bibasilar density. Mild prominence of interstitial markings Possible small right pleural effusion Degenerative changes of the thoracic spine/shoulders [facility] Phone: Roger, Mhpn Incoming R adiant Results From [facility] - 12/18/2020 11:26 AM EDT EXAMINATION: ONE [...] vascular congestion with mild streaky bibasilar atelectasis [facility] Phone: [facility] Phone: APTTOrdered By: Manuel lew on 12-17-2020 aPTT Coag (Bld) [Time] 22.8 s Low Me [employer] Phone: Comment on above: IV Heparin Therapy Range: 62.0-94.0 Interpretation and review of laboratory results Abnormal [facility] Phone: [facility] Phone: Blood Gas, VenousOrdered By: Manuel Conner on 12-17-2020 Shilo Test NOT REPORTED [facility] Phone: Carboxyhemoglobin NOT REPORTED 0.0 - 5.0 % [facility] Phone: Comment on above: FIO2 NOT REPORTED [facility] Phone: HCO3 (Bld) [Moles/Vol] 21.9 mmol/L Low 24.0 - 30.0 mmol/L [facility] Phone: Interpretation and review of laboratory results Abnormal [facility] Phone: Methemoglobin NOT REPORTED 0.0 - 1.9 % [facility] Phone: Mode NOT REPORTED [facility] Phone: Negative Base Excess, Angelo 5.7 mmol/L High 0.0 - 2.0 mmol/L [facility] Phone: NOTIFICATION NOT REPORTED [facility] Phone: NOTIFICATION TIME NOT REPORTED [facility] Phone: O2 Device/Flow/% NOT REPORTED [facility] Phone: Oxygen saturation in Blood 31.2 % Low 60.0 - 85.0 % [facility] Phone: Oxyhemoglobin NOT REPORTED 95.0 - 98.0 % [facility] Work Phone: pCO2, Angelo 50.4 [facility] Work Phone: [phone] pCO2, Angelo, Temp Adj NOT REPORTED [facility] Work Phone: [phone] Peep/Cpap NOT REPORTED [facility] Work [...] on 12-17-2020 BNP Interpretation Pro-BNP Reference Range: [facility] Work Phone: Comment on above: Rule Out: <300 Pagan Zone: Age <50 300-450 Age 50-75 300-900 Age >75 300-1800 Usually represents mild to moderate HF but other cardiopulmonary causes cannot be ruled out. Rule In: Age <50 >450 Age 50-75 >900 Age >75 >1800 Natriuretic peptide B (Bld) [Mass/Vol] 1428 pg/mL High <300 [facility] Phone: Comment on above: Pro-BNP results halie ot be compared to BNP results. CBC Auto DifferentialOrdered By: Manuel Conner on 12-17-2020 Absolute Eos # 0.03 [facility] Phone: Absolute Immature Granulocyte 0.03 [facility] Phone: Absolute Lymph # 0.96 Low [facility] Phone: Absolute [place] # 0.52 [facility] Phone: Basophils (Bld) [#/Vol] 10*3/uL [employer] Phone: Basophils/100 WBC (Bld) 0 % 0 - 2 % [employer] Phone: Differential Type NOT REPORTED [facility] Phone: [phone] Eosinophils/100 WBC (Bld) 0 % Low 1 - 4 % [facility] Phone: Hematocrit (Bld) [Volume fraction] 37.2 % Low 40.7 - 50.3 % [facility] Phone: Hemoglobin.gastrointest inal spec 1 Ql (Stl) 11.5 g/dL Low 13.0 - 17.0 g/dL [facility] Phone: [phone] Immature granulocytes/100 WBC (Bld) 0 % 0 [facility] Phone: Interpretation and review of laboratory results Abnormal [facility] Phone: Lymphocytes/100 WBC (Bld) 11 % Low 24 - 43 % [facility] Phone: MCH (RBC) [Entitic mass] 28.5 pg 25.2 - 33.5 pg [facility] Phone: MCHC (RBC) [Mass/Vol] 30.9 g/dL 28.4 - 34.8 g/dL [facility] Phone: MCV (RBC) [Entitic vol] 92.3 fL 82.6 - 102.9 fL [facility] Phone: Monocytes/100 WBC (Bld) 6 % 3 - 12 % [employer] Phone: NRBC Automated 0.0 0.0 per 100 WBC [facility] Phone: Platelet distribution width (Bld) [Ratio] 13.0 % 11.8 - 14.4 % [facility] Phone: Platelet Estimate NOT REPORTED [facility] Phone: Platelet mean volume (Bld) [Entitic vol] NOT REPORTED 8.1 - 13.5 fL [facility] Phone: Platelets (Bld) [#/Vol] See Reflexed IPF Result [facility] Phone: RBC (Bld) [#/Vol] 4.03 10*6/uL Low 4.21 - 5.77 m/uL [facility] Phone: RBC (Bld) [#/Vol] NOT REPORTED [facility] Phone: Segmented neutrophils/100 WBC (Bld) 82 % High 36 - 65 % [facility] Phone: Segs Absolute 6.94 [facility] Phone: WBC (Bld) [#/Vol] 8.5 10*3/uL [facility] Phone: WBC (Bld) [#/Vol] NOT REPORTED [facility] Phone: [facility] Phone: COVID-19, RapidOrdered By: Agnieszka munozsloan Finneyjodie on 12-17-2020 SARS-CoV-2 (COVID-19) RNA JOYCE+probe Ql (Unsp spec) Not detected Not Detected [facility] Phone: Comment on above: Rapid NAAT: The [...] management decisions. Fact sheet for Healthcare Providers: https://www.fda.gov/media/887753/download Fact sheet for Patients: https://www.fda.gov/media/513278/download Methodology: Isothermal Nucleic Acid Amplification Specimen Description .NASOPHARYNGEAL SWAB [facility] Phone: [facility] Phone: CT HEAD WO CONTRASTOrdered B y: Manuel Conner on 12-17-2020 No acute intracrania l abnormality. 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 Minimal parenchymal volume loss. Minimal chronic microvascular disease. [facility] Phone: EXAMINATION: CT OF T HE HEAD [...] of the visualized skull or soft tissues. [employer] Work Phone: Roger, Mhpn Incoming R adiant Results From [facility] - 12/17/2020 9:36 AM EDT EXAMINATION: CT OF THE HEAD WITHOUT CONTRAST 12/17/2020 9:21 am TECHNIQUE: CT of the head was performed without the administration of intravenous contrast. Dose modulation, iterative reconstruction, and/or weight based adjustment of the mA/kV was utilized to reduce the radiation dose to as low as reasonably achievable. COMPARISON: None. HISTORY: ORDERING SYSTEM PROVIDED HISTORY: ams TECHNOLOGIST PROVIDED HISTORY: [facility] Decision Support Exception - unselect if not [...] parenchymal volume loss. Minimal chronic microvascular disease. [facility] Phone: [facility] Phone: Comprehensive Metabolic Pane l w/ Reflex to MGOrdered By: Manuel Conner on 12-17-2020 Albumin [Mass/Vol] 4 g/dL 3.5 - 5.2 g/dL [facility] Phone: Albumin/Globulin [Mass ratio] 1.3 {ratio} [facility] Phone: ALP (Bld) [Catalytic activity/Vol] 66 U/L 40 - 129 U/L [facility] Phone: ALT [Catalytic activity/Vol] 12 U/L 5 - 41 U/L [facility] Phone: Anion gap [Moles/Vol] 19 mmol/L High 9 - 17 mmol/L [facility] Phone: AST [Catalytic activity/Vol] 18 U/L <40 [facility] Phone: Bilirubin [Mass/Vol] 0.16 mg/dL Low 0.3 - 1 .2 mg/dL [facility] Phone: Calcium [Mass/Vol] 8.8 mg/dL 8.6 - 10. 4 mg/dL [facility] Phone: Chloride [Moles/Vol] 102 mmol/L 98 - 10 7 mmol/L [facility] Phone: CO2 [Moles/Vol] 19 mmol/L Low 20 - 31 mmol/L [facility] Phone: Creatinine [Mass/Vol] 6.59 mg/dL Critically high 0.7 0 - 1.20 mg/dL [facility] Phone: Free PSA/Total PSA [Mass fraction] 7.0 g/dL 6.4 - 8.3 g/dL [facility] Phone: GFR 10 mL/min Low >60 [employer] Work Phone: GFR Non- 8 mL/min Low >60 [employer] Work Phone: Glucose [Mass/Vol] 197 mg/dL High 70 - 99 mg/dL [facility] Phone: Potassium [Moles/Vol] 4.6 mmol/L 3.7 - 5.3 mmol/L [facility] Phone: Sodium [Moles/Vol] 140 mmol/L 135 - 144 mmol/L [facility] Phone: Urea nitrogen (BldV) [Mass/Vol] 96 mg/dL Critically high 8 - 23 mg/dL [facility] Phone: Urea nitrogen/Creatinine (Bld) [Mass ratio] 15 [employer] Work Phone: EKG 12 LeadOrdered By: Kathy Conner on 12-17-2020 Atrial Rate 85 BPM [facility] Phone: P [place] -15 degrees [facility] Phone: P-R Interval 224 ms [facility] Phone: Q-T Interval 414 ms [facility] Phone: QRS Duration 120 ms [facility] Phone: QTc Calculation (Bazett) 492 ms [facility] Phone: [phone] R [place] 99 degrees [facility] Phone: T [place] 44 degrees [facility] Phone: Ventricular Rate 85 BPM [facility] Phone: Sinus rhythm with 1s t degree A-V block Rightward axis Septal infarct , age undetermined Abnormal ECG No previous ECGs available Confirmed by JARON BERNARD ([id number]) on 12/17/2020 11:51:30 PM [facility] Phone: Roger, Mhpn Incoming E kg Results From [employer] [employer] - 12/17/2020 11:51 PM EDT Sinus rhythm with 1st degree A-V block Rightward axis Septal infarct , age undetermined Abnormal ECG No previous ECGs available Confirmed by JARON BERNARD ([id number]) on 12/17/2020 11:51:30 PM [facility] Phone: [facility] Phone: Immature Platelet FractionOr dered By: Manuel Conner on 12-17-2020 Interpretation and review of laboratory results Abnormal [facility] Phone: Platelet, Fluorescence 110 Low [facility] [employer] Phone: Platelet, Immature Fraction 4.6 % 1.1 - 10.3 % [facility] Phone: [facility] Phone: Laboratory - Chemistry and C hemistry - challengeOrdered By: Manuel Conner on 12-17-2020 GFR/1.73 sq M.predicted MDRD (S/P/Bld) [Vol rate/Area] [facility] Phone: Comment on above: Average GFR for 70 o r more years old: 75 mL/min/1.73sq m Chronic Kidney Disease: <60 mL/min/1.73sq m Kidney failure: <15 mL/min/1.73sq m eGFR calculated using average adult body mass. Additional eGFR calculator available at: http://www.[employer].Jiankongbao/multiple_crcl_2012.htm Stage 1: Some kidney damage normal GFR Stage 2: Mild kidney damage GFR 60-89 Stage 3: Moderate kidney damage GFR 30-59 Stage 4: Severe kidney damage GFR 15-29 Stage 5: Severe kidney damage GFR <15 ESRD - chronic treatment by dialysis or transplant Lactic AcidOrdered By: Kathy Conner on 12-17-2020 Lactate [Moles/Vol] 1.3 mmol/L 0.5 - 2. 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 Flow artifact in the proximal M1 segments of the bilateral MCAs and intracranial right ICA. The bilateral intracranial vertebral arteries are not imaged. [facility] Phone: EXAMINATION: MRA OF THE HEAD WITHOUT CONTRAST 12/17/2020 1:32 pm TECHNIQUE: MRA of the head was performed utilizing [id number]-[id number]-[id number] imaging with MIP images. No intravenous contrast [...] cerebral arteries. No evidence of intracranial aneurysm. [facility] Phone: Roger, Mhpn Incoming R adiant Results From [facility] - 12/17/2020 2:02 PM EDT EXAMINATION: MRA OF THE HEAD WITHOUT CONTRAST 12/17/2020 1:32 pm TECHNIQUE: MRA of the head was performed utilizing iazl-ag-utjxir imaging with MIP images. No intravenous contrast [...] bilateral intracranial vertebral arteries are not imaged. [facility] Phone: [facility] Phone: MRI BRAIN WO CONTRASTOrdered By: Manuel Conner on 12-17-2020 Addendum by Cristhian Hardin MD on 12/17/2020 2:02 PM ADDENDUM: Absence of normal flow void in left vertebral artery, likely related to severe stenosis versus occlusion. [facility] Phone: No acute intracrania l abnormality. 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 Mild parenchymal volume loss. Mild chronic microvascular disease. 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 [facility] Phone: EXAMINATION: MRI OF THE BRAIN WITHOUT [...] The soft tissues demonstrate no acute abnormality. [facility] Phone: Roger, pn Incoming R adiant Results From [facility] - 12/17/2020 1:55 PM EDT EXAMINATION: MRI [...] internal carotid artery, likely related to occlusion. [employer] Work Phone: [employer] Work Phone: Microscopic UrinalysisOrdere d By: Manuel Conner on 12-17-2020 - [employer] Work Phone: Amorphous, UA NOT REPORTED None [employer] Work Phone: Bacteria, UA NOT REPORTED None [employer] Work Phone: Casts UA NOT REPORTED /LPF [employer] Work Phone: Crystals, UA NOT REPORTED None /HPF [employer] Work Phone: Epithelial Cells UA 0 TO 2 [facility] Phone: Mucus, UA NOT REPORTED None [facility] Phone: Other Observations UA NOT REPORTED NOT REQ. [facility] Phone: RBC, UA 2 TO 5 [employer] Work Phone: Renal Epithelial, UA NOT REPORTED 0 /HPF [facility] [employer] Work Phone: Trichomonas, UA NOT REPORTED None [facility] Phone: WBC, UA 0 TO 2 [facility] Phone: Yeast, UA NOT REPORTED None [facility] Phone: [employer] Work Phone: No Panel InformationOrdered By: Manuel Conner on 12-17-2020 Interpretation and review of laboratory results Abnormal [facility] Phone: [facility] Phone: Interpretation and review of laboratory results Abnormal [facility] Phone: [facility] Phone: Protime-INROrdered By: Kathy Conner on 12-17-2020 INR Coag (Bld) [Relative time] 1.1 {INR} [facility] Phone: Comment on above: Non-therapeutic Range: INR = 0.9-1.2 Therapeutic Range: Moderate Anticoagulant Intensity: INR = 2.0-3.0 High Anticoagulant Intensity: INR = 2.5-3.5 PT Coag (PPP) [Time] 13.7 s ITC Phone: [facility] Phone: TroponinOrdered By: Manuel Conner on 12-17-2020 Interpretation and review of laboratory results Abnormal [facility] Phone: Troponin Interp NOT REPORTED [facility] Phone: Troponin T NOT REPORTED <0.03 ng/mL [facility] Phone: Troponin, High Sensitivity 79 ng/L Critically high 0 - 22 ng/L [facility] Phone: Comment on above: High Sensitivity Troponin values cannot be compared with other Troponin methodologies. Patients with high levels of Biotin oral intake (i.e >5mg/day) may have falsely decreased Troponin levels. Samples collected within 8 hours of biotin intake may require additional information for diagnosis. [facility] Phone: Troponin Interp NOT REPORTED [facility] Phone: Troponin T NOT REPORTED <0.03 ng/mL [facility] Phone: Troponin, High Sensitivity 85 ng/L Critically high 0 - 22 ng/L [facility] Phone: Comment on above: High Sensitivity Troponin values cannot be compared with other Troponin methodologies. Patients with high levels of Biotin oral intake (i.e >5mg/day) may have falsely decreased Troponin levels. Samples collected within 8 hours of biotin intake may require additional information for diagnosis. Urinalysis, reflex to micros copicOrdered By: Manuel Conner on 12-17-2020 Bilirubin Urine Negative NEGATIVE [facility] Phone: Color, UA Yellow Yellow [employer] Work Phone: Glucose, Ur Negative NEGATIVE [employer] Work Phone: Interpretation and review of laboratory results Abnormal [facility] Phone: Ketones Ql (U) Negative NEGATIVE [employer] Work Phone: Leukocyte esterase Test strip Ql (U) Negative NEGATIVE [employer] Work Phone: Nitrite, Urine Negative NEGATIVE [employer] Work Phone: pH, UA 5.5 [employer] Work Phone: Protein, UA TRACE Abnormal NEGATIVE [facility] Phone: Specific [place], UA 1.025 High [employer] Work Phone: Turbidity UA Clear Clear [employer] Work Phone: Urinalysis Comments NOT REPORTED [facility] [employer] Work Phone: Urine Hgb TRACE Abnormal NEGATIVE [facility] Phone: Urobilinogen, Urine Normal Normal [facility] Phone: [facility] Phone: XR CHEST PORTABLEOrdered By: Manuel Conner on 12-17-2020 Mild streaky bibasil ar atelectasis with possible small bilateral pleural effusions [facility] Phone: EXAMINATION: ONE XRA Y VIEW OF THE CHEST 12/17/2020 9:30 am COMPARISON: None. HISTORY: ORDERING SYSTEM PROVIDED HISTORY: Congestion TECHNOLOGIST PROVIDED HISTORY: Congestion FINDINGS: Median sternotomy. Normal cardiopericardial silhouette Low volume lungs. Mild streaky bibasilar densities, possible possible small bilateral pleural effusions. Clear upper lungs Degenerative changes of the thoracic spine/shoulders [employer] Work Phone: Roger, Mhpn Incoming R adiant Results From [facility] - 12/17/2020 9:46 AM EDT EXAMINATION: ONE [...] atelectasis with possible small bilateral pleural effusions [employer] Work Phone: [facility] Phone: Vital Signs Date Time Vital Sign Value Performing Clinician Facility 07-03-2021 15:01-0400 Body temperature 99.32 [degF] Michael Carballo Other Phone: [facility] 07-03-2021 15:01-0400 Diastolic blood pressure 66 mm[Hg] Michael Carballo Other Phone: [facility] 07-03-2021 15:01-0400 Heart rate 80 /min Michael Carballo Other Phone: [facility] 07-03-2021 15:01-0400 Respiratory rate 22 /min Michael Carballo Other Phone: [facility] 07-03-2021 15:01-0400 SaO2% (BldA) [Mass fraction] 97 % Michael Carballo Other Phone: [facility] 07-03-2021 15:01-0400 Systolic blood pressure 127 mm[Hg] Michael Carballo Other Phone: [facility] 07-03-2021 06:30-0400 Body weight 100.5 kg Michael Carballo Other Phone: [facility] 06-27-2021 13:00-0400 Diastolic blood pressure 69 mm[Hg] MD Michael Carballo Work Phone: [facility] 06-27-2021 13:00-0400 Heart rate 87 /min MD Michael Carballo Work Phone: [facility] 06-27-2021 13:00-0400 Respiratory rate 17 /min MD Michael Carballo Work Phone: [facility] 06-27-2021 13:00-0400 SaO2% (BldA) [Mass fraction] 94 % MD Michael Carballo Work Phone: [facility] 06-27-2021 13:00-0400 Systolic blood pressure 153 mm[Hg] MD Michael Carballo Work Phone: [facility] 06-27-2021 08:00-0400 Body temperature 97.9 [degF] MD Michael Carballo Work Phone: [facility] 06-27-2021 05:44-0400 Body weight 106.5 kg MD Michael Carballo Work Phone: [facility] 06-26-2021 14:12-0400 Body height 182.88 cm MD Michael Carballo Work Phone: [facility] 06-26-2021 00:24-0400 Body height 182.88 cm MD Michael Carballo Work Phone: [facility] 06-26-2021 00:24-0400 Body mass index (BMI) [Ratio] 32.8 kg/m2 MD Michael Carballo Work Phone: [facility] 06-26-2021 00:24-0400 Body temperature 97.7 [degF] MD Michael Carballo Work Phone: [facility] 06-26-2021 00:24-0400 Body weight 109.9 kg MD Michael Carballo Work Phone: [facility] 06-26-2021 00:24-0400 Diastolic blood pressure 100 mm[Hg] MD Michael Carballo Work Phone: [facility] 06-26-2021 00:24-0400 Heart rate 88 /min MD Michael Carballo Work Phone: [facility] 06-26-2021 00:24-0400 Respiratory rate 18 /min MD Michael Carballo Work Phone: [facility] 06-26-2021 00:24-0400 SaO2% (BldA) [Mass fraction] 96 % MD Michael Carballo Work Phone: [facility] 06-26-2021 00:24-0400 Systolic blood pressure 221 mm[Hg] MD Michael Carballo Work Phone: [facility] 12-19-2020 20:01-0400 Diastolic blood pressure 64 mm[Hg] Manuel Conner MD Work Phone: [employer] Work Phone: 12-19-2020 20:01-0400 Systolic blood pressure 182 mm[Hg] Manuel Conner MD Work Phone: [employer] Work Phone: 12-19-2020 19:00-0400 Heart rate 75 /min Manuel Conner MD Work Phone: [employer] Work Phone: 12-19-2020 19:00-0400 Respiratory rate 23 /min Manuel Conner MD Work Phone: [employer] Work Phone: 12-19-2020 19:00-0400 SaO2% (BldA) [Mass fraction] 94 % Manuel Conner MD Work Phone: [employer] Work Phone: 12-18-2020 06:30-0400 Body temperature 98.29 [degF] Manuel Conner MD Work Phone: [employer] Work Phone: Encounters Encounter Date Encounter Type Care Provider Facility Start: 09-28-2022 AUDIT Michael Carballo Work Phone: ER-Vgfysmmeif-Dejhrrup [facility] 260 DO Work Phone: Start: 07-24-2022 End: 07-24-[address] MICHAEL CARBALLO . Facility:[facility] Start: 07-15-2022 End: 07-15-[address] MICHAEL CARBALLO . Facility: Start: 07-13-2022 Patient encounter procedure Michael Carballo Work Phone: KQ-Jahgogjeuk-KFG [facility] Work Phone: Start: 07-13-2022 Phys/qhp telephone evaluation 11-20 min Michael Carballo Work Phone: HE-Currphzgfk-GGG [facility] [address] Work Phone: Start: 07-13-2022 ambulatory MD SCOUT ROMO Facility:[facility] Start: 07-13-2022 End: 07-13-[address] MICHAEL CARBALLO . Facility: Start: 07-09-2022 AUDIT Michael Carballo Work Phone: AS-Hgkcrbbqaf-FTP [facility] [address] Work Phone: Start: 06-08-2022 ambulatory Facility:[facility] Start: 06-05-2022 End: 06-05-[address] MICHAEL CARBALLO . Facility: Start: 06-04-2022 End: 06-04-[address] MICHAEL CARBALLO . Facility: Start: 04-14-2022 End: 04-15-2022 ambulatory DONNA ARELLANO [facility] Start: 04-14-2022 End: 04-14-2022 Subsequent hospital visit by physician Michael Carballo Work Phone: [facility] Start: 10-30-2021 End: 10-31-2021 ambulatory Manfred Wilson Facility:[facility] Start: 10-28-2021 End: 10-28-[address] MICHAEL CARBALLO . Facility: Start: 10-15-2021 Patient encounter procedure Michael Carballo Work Phone: NH-Wjxbtqfboh-FBK [facility] [address] [place] Work Phone: Start: 10-15-2021 ambulatory DO FELICIA ASTORGA Facility:[facility] Start: 08-05-2021 End: 08-06-[address] MICHAEL CARBALLO . Facility: Start: 07-16-2021 Office outpatient vi sit 25 minutes Michael Carballo Work Phone: TN-Lpqcslcltn-HLO [facility] [address] [place] Work Phone: Start: 07-16-2021 Patient encounter procedure Michael Carballo Work Phone: UB-Sckiybodte-XGE [facility] [address] [place] Work Phone: Start: 06-27-2021 End: 07-03-2021 [id number] Start: 06-25-2021 End: 06-27-2021 Evaluation and management of inpatient MD Michael Carballo Work Phone: [facility] Start: 06-25-2021 Patient encounter procedure Michael Carballo Work Phone: IG-Ljtayhercu-OPZ [facility] [address] [place] Work Phone: Start: 06-24-2021 End: 06-24-2021 Patient encounter procedure MD Michael Carballo Work Phone: [facility] Start: 05-28-2021 AUDIT Michael Carballo Work Phone: OJ-Hhevdilahf-CIC [facility] [address] [place] Work Phone: Start: 05-27-2021 End: 05-27-2021 Patient encounter procedure MD Michael Carballo Work Phone: [facility] Start: 01-01-2021 Patient encounter procedure Michael Carballo Work Phone: NP-Wsoxdwtvqw-TTS [facility] [address] [place] Work Phone: Start: 01-01-2021 WANG, Provider : Felicia Astorga, Status: Pen, Time: 2:20 PM Michael Carballo Work Phone: CK-Rltpasrked-Wfjtdfnp [facility] 260 DO Work Phone: Start: 12-31-2020 AUDIT Michael Carballo Work Phone: EM-Mvsgzkoaez-Zkkzbahi [facility] 260 DO Work Phone: Start: 12-17-2020 End: 12-19-2020 Emergency department patient visit Manuel Conner MD Work Phone: [facility] ED Comment on above: [place] coma scale t otal score 13-15, at hospital admission (Primary Dx); Acute kidney injury (HCC); Heart replaced by transplant (HCC); Confusion Start: 11-21-2020 AUDIT Michael Carballo Work Phone: CK-Rzeyyemzpl-MPE [facility] [address] [place] Work Phone: Start: 10-31-2020 AUDIT Michael Carballo Work Phone: [facility] Work Phone: Procedures Date Procedure [...] Heart repla vaibhav by transplant ([facility]) Manuel Conner MD Work Phone: H/O: [...] Montse Villanueva, Status: Pen, Time: 2:00 PM DV-Ujilyrzvrg-WXH Heather [address] Work Phone: Start: 07-13-2022 VIRFUCORI, Provider : Scout Romo, Status: Pen, Time: 1:40 PM VIRFUVHOME, Provider: Scout Romo, Status: Pen, Time: 1:40 PM LU-Gcysxpzqmt-NQR [place] [address] Work Phone: Start: 04-01-2022 VIRFUCORI, Provider : Felicia Astorga, Status: Pen, Time: 1:00 PM VIRFUCORI, Provider: Felicia Astorga, Status: Pen, Time: 1:00 PM RA-Zcauykuzdf-ERU [facility] [address] [place] Work Phone: Start: 12-19-2021 Creatinine measurement Creatinine [facility] Work Phone: Start: 12-19-2021 Potassium monitoring Potassium monit [facility] Work Phone: Start: 10-20-2021 Influenza vaccination Flu vaccine (# 1) [facility] Start: 07-16-2021 Patient encounter procedure [facility] Start: 07-03-2021 End: 07-04-2022 Insulin Glargine (Lantus) Injectable Subcutaneous Once ; DOSE = 12 unit(s) SubCutaneous At BedtimeNotes from Pharmacy: [facility] Start: 03-Jul-2021 End: 03-Jul-2022 Ordered: 03-Jul-2021 Magy Galeas Intent [facility] Start: 07-01-2021 End: 07-02-2022 [facility] Comment on above: IF patient [...] End: 30-Jun-2022 Ordered: 30-Jun-2021 Jihan Storm Intent [facility] Start: 06-27-2021 End: 06-28-2022 Sodium Chloride 0.9% Injectable Flush Peripheral Line ; via Peripheral LineVolume = 10 mL IntraVenous Flush Every 8 Hours and as Needed Start: 27-Jun-2021 End: 27-Jun-2022 Ordered: 26-Jun-2021 Magy Galeas Intent [facility] Start: 06-26-2021 Duplex scan of upper limb arteries US arterial duplex [facility] Start: 12-17-2020 Annual Wellness Visi t (AWV) Annual Wellness Visit (AWV) [facility] [employer] Start: 11-20-2020 Influenza vaccination Flu vaccine (# 1) [employer] Phone: Start: 07-16-2020 COVID-19 Vaccine (3 - Pfizer risk 3-dose series) COVID-19 Vaccine (3 - Pfizer risk 3-dose series) [employer] Phone: Start: 07-16-2020 COVID-19 Vaccine (3 - Pfizer risk series) COVID-19 Vaccine (3 - Pfizer risk series) [facility] [employer] Start: 10-01-2016 Pneumococcal 65+ yrs at Risk Vaccine (2 of 2 - PCV13) Pneumococcal 65+ yrs at Risk Vaccine (2 of 2 - PCV13) [employer] Phone: Start: 10-10-1993 Shingles Vaccine (1 of 2) Shingles Vaccine (1 of 2) [employer] Phone: Start: 10-10-1962 DTaP/Tdap/Td vaccine (1 - Tdap) DTaP/Tdap/Td vaccine (1 - Tdap) [facility] Start: 10-10[facility]1962 Shingles vaccine (1 of 2) Shingles vaccine (1 of 2) [facility] [employer] Start: 10-10-1961 Hepatitis C screening Hepatitis C [facility] Start: 1955 Depression Screen [facility]: 10-10-1953 [facility] Start: 1945 Hepatitis C [facility]: Calcium [Mass/volume ] in Serum or Plasma [facility] Work Phone: Carbon dioxide, tota l [Moles/volume] in Serum or Plasma [facility] Work Phone: Chloride [Moles/volu me] in Serum or Plasma [facility] Work Phone: Creatinine and Glomerular filtration rate.predicted panel - Serum, Plasma or Blood [facility] Work Phone: Culture, Blood [facility] Work Phone: Culture, Wound Culture, Wound Microbiology Routine 04/14/2022 3:25 PM EST LEONID MAY [facility] Work Phone: Glucose [Mass/volume ] in Serum or Plasma [facility] Work Phone: Goals of care, counseling/discussion [facility] Measurement of renal function [facility] Work Phone: Potassium [Moles/volume] in Serum or Plasma [facility] Work Phone: Sodium [Moles/volume ] in Serum or Plasma [facility] Work Phone: Tacrolimus [Mass/volume] in Blood [facility] Work Phone: End: 12-18-2020 Tacrolimus Level [facility] Work Phone: Comment on above: One Time for 1 Occur rences starting 12/18/2020 until 12/18/2020 End: 12-19-2020 Tacrolimus Level Tacrolimus Level Lab Routine One Time for 1 Occurrences starting 12/19/2020 until 12/19/2020 [facility]: Comment on above: One Time for 1 Occur rences starting 12/19/2020 until 12/19/2020 Tacrolimus Level [facility] Work Phone: Urea nitrogen [Mass/volume] in Serum or Plasma [facility] Work Phone: Immunizations Immunization Date Immunization Notes Care Provider Fa cility 03-21-2021 Pfizer-BioNTech COVI D-19 Vacc 30 MCG/0.3ML Intramuscular Suspension Michael Carballo Work Phone: VT-Uycgkbfppt-OPL Heather [place] [address] [place] Work Phone: 06-18-2020 Pfizer-BioNTech COVI D-19 Vacc 30 MCG/0.3ML Intramuscular Suspension Michael Carballo Work Phone: [facility] Work Phone: 05-27-2020 Pfizer-Wide [employer] COVI D-19 Vacc 30 MCG/0.3ML Intramuscular Suspension Michael Candelario Haris Work Phone: [facility] Work Phone: 12-29-2019 Seasonal trivalent influenza vaccine, adjuvanted, preservative free Michael Palomino Haris Work Phone: [facility] Work Phone: 12-22-2017 Seasonal trivalent influenza vaccine, adjuvanted, preservative free Michael Palomino Haris Work Phone: [facility] Work Phone: 12-28-2016 Seasonal trivalent influenza vaccine, adjuvanted, preservative free Michael Palomino Haris Work Phone: [facility] Work Phone: 12-24-2015 influenza, high dose seasonal, preservative-free Michael Palomino Haris Work Phone: [facility] Work Phone: 10-02-2015 influenza, seasonal, injectable Michael Palomino Haris Work Phone: [facility] Work Phone: 10-02-2015 pneumococcal polysaccharide vaccine, 23 valent Michael Palomino Haris Work Phone: [facility] Work Phone: 01-09-2015 influenza, injectabl e, quadrivalent, contains preservative Michael Palomino Haris Work Phone: [facility] Work Phone: 01-03-2013 influenza, seasonal, injectable Michael Palomino Haris Work Phone: [facility] Work Phone: 01-07-2009 influenza virus vacc ine, whole virus Michael Palomino Haris Work Phone: [facility] Work Phone: 01-20-2005 influenza virus vacc ine, whole virus Michael Palomino Carballo Work Phone: [facility] Work Phone: Payers Date Payer Category Payer Self-pay [id number] 1961 Medicaid [id number] 1961 Medicare [id number] 1961 Medicare [id number] 1959 Private Health Insurance [id number] 1945 Unknown [id number] 2.16.8 [id number] 1943 Unknown [id number] 2.16.84 [id number] 1943 Unknown [id number] 2.16.84 [id number] 1943 Unknown [id number] 2.16.84 [id number] 1943 Unknown [id number] 2.16.84 [id number] 1943 Unknown [id number] 2.16.84 [id number] 1943 Unknown [id number] 2.16.84 [id number] 1943 Unknown [id number] 2.16.84 [id number] 1943 Unknown [id number] 2.16. [id number] 1943 Unknown [id number] 2.16. [id number] Unknown Unknown [id number] 2.16.8 [id number] Social History Date Type Detail Facility Former smoker Former smoker [facility] Work Phone: Start: 12-17-2020 Tobacco smoking stat us WYIS Unknown if ever smoked [facility] Work Phone: Start: 1945 Sex Assigned At Not on file M [facility] Work Phone: Exposure to SARS-CoV -2 (event) Unable to assess [facility] Start: 12-13-[address] [facility] Start: 1945 Sex Assigned At Male F [facility] Start: 06-26-2021 End: 06-26-2021 Tobacco smoking status NHIS Ex-smoker (finding) [facility] End: 03-22-1996 History of tobacco use [facility] Work Phone: Goals Date Patient Goal Desired Activity /State Functional Status Date Assessment Result Facility 06-27-2021 Functional status [facility] at [facility] Work Phone: Functional observable [facility] Mental Status Date Assessment Result Facility 06-30-2021 Cognitive functi ons [id number] [facility] 06-27-2021 Cognitive function Cognitive Sta tus Patient at [facility] Work Phone: Clinical Notes 07-05-2000 to 07-03-2021 <item><item><item><item><item><item><item><item><item> Note Date & Type Note Facility 07-03-2021 Hospital Discharge instructions Activity:activity with assistance. May shower.Labs 1 (Modify Template):Lab Test(s): Basic Metabolic Panel, CBC, Tacrolimus levelDate To Be Drawn: 07/07/2021all Results To: Dr. Felicia Moore Results To: [phone] Orders:Blood Glucose Monitoring: ACHSAdditional Instructions: Use of [...] Uncontrolled diabetesCall to Schedule in: 2 weeksLocation: [facility]: [facility] Up Appointment 2:Physician/Dept/Service: Dr. Felicia Astorga / Heart failure and transplantReason for Referral: hospital follow-upLocation: Heather 1800Comments: Our office will call you to set up an appointment either in person or virtually. [facility] 06-27-2021 Discharge summary Note Date/Time June 27, 2021 10:32am [facility] [address] [place] [address] Discharge Summary Signed Patient: Oliverio Escobedo MR#: [id number] : 1945 Acct:[id number] Age/Sex: 75 / M Adm Date: 2 Loc: 3T Room: [address] [place] [address]: Yoshi Hernandez MD Copies to: [...] 1 tab PO BID RF: 0 omega 8-rqk-pfx-fish oil [Fish Oil] 1,000 mg (120 mg-180 [...] signed by Yoshi Hernandez MD> 06/27/21 1032 [facility] Work Phone: 1(153) 803-299704-08-2022 Progress note Author Bonilla Ortiz [facility] June 27, 2021 10:27am Note Date/Time June 27, 2021 10:2 7am [facility] [address] [place] [address] Cardiology Progress Note Signed Patient: Oliverio Escobedo MR#: [id number] : 1945 Acct:[id number] Age/Sex: 75 / M Adm Date: 2 Loc: 3T Room: [address] [place] [address] Type : ADM INOo Attending Dr: Yoshi Hernandez MD Copies to: ~ Date of Service: 06/27/2021 Subjective Principal diagnosis: Edema w history of orthotopic heart transplant Interval history: Mr. Escobedo is a 75 year old male with known history of orthotopic heart transplantation in 2000 done at [facility] who was admitted to the inpatient hospitalist service last night after presenting from the [facility] with complaints of increasing swelling in both legs and the right arm for several days. The patient is resting comfortably this morning. He did diurese gently yesterday. He currently has no cardiac complaints. His breathing feels comfortable lying flat at rest. Swelling in both feet and calves is still present. NB: The patient has been accepted by the transplant service at [facility]. At this point we are awaiting [...] Agree with transfer to transplant service at [facility] for further management. Plan Thank you very much for this kind consultation and for allowing me to participate in the care of this very pleasant patient. Time spent with patient Time Spent With Patient (min): 20 Documented By: Bonilla Ortiz MD 06/27/21 1024 Signed By: <Electronically signed by Bonilla Ortiz MD> 06/27/21 1027 [facility] Work Phone: 1(968) 686-434204-07-2022 Progress note Author Yoshi Wu [facility] June 26, 2021 6:27pm Note Date/Time June 26, 2021 6:27 pm [facility] [address] [place], [place] [id number] Hospitalist Progress Note Signed Patient: Oliverio Escobedo MR#: [id number] : 1945 Acct:[id number] Age/Sex: 75 / M Adm Date: 2 Loc: Room: [address] [place] [address] Type : ADM INOo Attending Dr: Yoshi [...] Oil 1,000 mg 06/26/21 09:00 06/26/21 09:01 [place]-3/Fish Oil 1,000 Mg Capsule PO 06/26/22 08:59 [...] Tablet PO 06/26/22 00:59 100 mg TID RAUEDL Administration Insulin Aspart 0 units 06/26/21 07:30 [...] signed by Yoshi Hernandez MD> 06/26/21 182 [facility] Work Phone: 1(223) 472-751904-07-2022 Consult note Author Bonilla Ortiz [facility] June 26, 2021 2:26pm Note Date/Time June 26, 2021 2:23 pm [facility] [address] [place] [address] Cardiology Consult Note Signed Patient: Oliverio Escobedo MR#: [id number] : 1945 Acct:[id number] Age/Sex: 75 / M Adm Date: 2 Loc: 3T Room: [address] [place] [address] Type : ADM INOo Attending Dr: Yoshi Hernandez MD Copies to: MD Manfred Olvera([facility]) DO Bonilla Wilson MD~ Cardiology HPI History of Present Illness Consult Date: 06/26/21 Reason for Consult: Bilateral lower extremity swelling Remote history of orthotopic heart transplantation HPI: Mr. Escobedo is a 75 year old male with known history of orthotopic heart transplantation in 2000 done at [facility] who was admitted to the inpatient hospitalist service last night after presenting from the [facility] with complaints of increasing swelling in [...] the results were sent to his transplant pipe recovery specialist in [place]. She doesnot know the results. On my evaluation the patient was undergoing bedside transthoracic echocardiography. Preliminary interpretation of the study shows normal resting left ventricular regional wall motion and systolic function. Ejection fraction appears greater than 55%. There is no notable pericardial or pleural effusion. There is no notable/significant valvular heart disease noted. By report the patient's transplant service at [facility] has been contacted and is requested the [...] PO BID 02/02/17 [History Confirmed 06/25/21] omega 6-gml-rhq-fish oil 1,000 mg (120 mg-180 mg) capsule [...] x10E3/uL Lymph # (Auto) 1.0 (1.00-4.8) x10E3/uL [place] # (Auto) 0.5 (0.0-0.8) x10E3/uL Eos # [...] Agree with transfer to transplant service at [facility] for further management. Code(s): Z94.1 - Heart transplant status Plan Thank you very much for this kind consultation and for allowing me to participate in the care of this very pleasant patient. Documented By: Bonilla Ortiz MD 06/26/21 1415 Signed By: <Electronically signed by Bonilla Ortiz MD> 06/26/21 1426 [facility] Work Phone: 1([phone]) 361-727904-07-2022 History and physical note Author Omid Myrick [facility] June 26, 2021 7:44am Note Date/Time June 26, 2021 12:1 6am [facility] [address] [place], [place] [address] Hospitalist H&P Signed Patient: Oliverio Escobedo MR#: [id number] : 1945 Acct:[id number] Age/Sex: 75 / M Adm Date: 2 Loc: 3T Room: [address] [place] [address] Type : ADM INOo Attending Dr: Yoshi [...] been trying to schedule an appointment with [facility] pipe recovery specialist but were unable. Patient is hard of [...] PO BID 02/02/17 [History Confirmed 06/25/21] omega 6-jcd-eoo-fish oil 1,000 mg (120 mg-180 mg) capsule [...] % (Auto) 12.9 % (.) 06/25/21 19:30 [place] % (Auto) 7.3 % (.) 06/25/21 19:30 Eos % (Auto) 4.6 % (.) 06/25/21: Baso % (Auto) 0.6 % (.) 06/25/21: Neut # (Auto) 5.6 x10E3/uL (1.8-7.7) 06/25/21 19: Lymph # (Auto) 1.0 x10E3/uL (1.00-4.8) 06/25/21 19:30 [place] # (Auto) 0.5 x10E3/uL (0.0-0.8) 06/25/21 19: [...] MD Documented By: Audra Quinteros APRN 06/25/21 2143 Signed By: <Electronically signed by GABBIE Quinteros> 06/26/21 0057 <Electronically signed by Omid Myrick MD> 06/26/21 9858 [facility] Work Phone: 1(373) 810-938209-30-2021 Evaluation note* Diagnosis [place] coma scale total score 13-15, at hospital admission- Primary Acute kidney injury (HCC) Acute kidney failure, unspecified Heart replaced by transplant (HCC) Heart replaced by transplant Confusion Unspecified psychosis [facility] Work Phone: 1(139) 161-928309-30-2021 History of Present illness Narrative* 74 yo [...] trazodone, trazodone and aripirazole. Discharged back to [facility] with 2x/week home trips. * Immunosuppression: MMF 250 mg BID, tacrolimus 1.5 mg BID (FK 5.4 on 12/24/20, goal 5-8) * Rejection Hx/DSAs: None documented * Last echo: 12/20/20 NA-Dmmunoodye-TRB [facility] [address] [place] Work Phone: [phone] History of Present illness Narrative* Liliya Baker RN - 12/17/2020 10:31 AM EDT Spoke with nurse from [facility] at this time. They will fax lab work to us from [facility]. documented in this [facility] Work Phone: [phone] History of Present illness Narrative* Mr. Escobedo [...] September 2021. He continues to live in correction. He has started Zoloft for depression. 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 Needs assistance with transfers. He has not had any new doctors appointmetns. * Immunosuppression: MMF 250 mg BID, tacrolimus 1 mg BID (FK 11.0 on 10/10/21, goal 5-8) * Rejection Hx/DSAs: None documented * Last echo: 12/20/20 UM-Yauksjzizi-GHI [facility] [address] Work Phone: Chief complaint Narrative - [...] 04:20 PM , for a telehealth visit. WY-Yodnpsrftg-SSR Heather [facility] [address] [place] Work Phone: Evaluation noteNo assessment information available [facility] Work Phone: Evaluation note* Diagnosis Onset Date Resolution Status Acute kidney injury acute Bilateral edema of lower extremity acute Shortness of breath acute [facility] Work Phone: Evaluation note* Diagnosis Onset Date Resolution Status Acute kidney injury acute Bilateral edema of lower extremity acute History of heart transplant acute Shortness of breath acute [facility] Work Phone: Evaluation note* Psychological: [...] distress, alert and cooperative, hard of hearing [facility] Mr. [...] trazodone, trazodone and aripirazole. Discharged back to [facility] with 2x/week home trips. * Immunosuppression: MMF 250 mg BID, tacrolimus 1.5 mg BID (FK 5.4 on 12/24/20, goal 5-8) * Rejection Hx/DSAs: None documented * Last echo: 12/20/20 AC-Vezkppndtj-FDF [facility] [address] [place] Work Phone: History of Present [...] B/L LE edema. Spoke with RN at [facility]; states LE edema has been ongoing for several weeks, with a rash . * Labs drawn 06/24/21; BNP 224 * Immunosuppression: MMF 250 mg BID, tacrolimus 1.5 mg BID (FK 5.4 on 12/24/20, goal 5-8) - FK pendingfrom 06/24/21 from SNF * Rejection Hx/DSAs: None documented * Last echo: 12/20/20 MG-Gppxtikbub-LFQ [facility] [address] [place] Work Phone: History of Present [...] Hx/DSAs: None documented * Last echo: 12/20/20 NE-Lryupefraz-CMV Heather [facility] [address] [place] Work Phone: History [...] Hx/DSAs: None documented * Last echo: 12/20/20 AO-Dbiopyvvcn-KGK [facility] [address] [place] Work Phone: History [...] BPs at the [facility] 120-130s/70-80s. * Benadryl 25 mg q6h PRN for itching/dry skin. * Immunosuppression: MMF 250 mg BID, tacrolimus 1.5 mg BID (FK 5.5 on 07/03/21, goal 5-8) - FK level pending from 10/11/21 * Rejection Hx/DSAs: None documented * Last echo: 12/20/20 YI-Kbbinadgkp-XKG [facility] [address] [place] Work Phone: Reason for referral (narrative)* Reason for Referral: HF, DAVID, scabies [facility] Family History No Family History [...] content) Reason Comments Altered Mental Status onset AS400 ANALYST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; staff state pt would not respond and stared off into space Hypotension AS400 ANALYST staff from [facility] rn state [...] is suspension with MINIMUM of SIZE 8 SINHALA 1500 (Given - Provider: Sola Dee RN)[id number] [...] Active Yoshi Hernandez MD Attending Provider Active Thread Roller Relationship Specialty Start Date End Date Michael Carballo [address] [place] [address] PCP - General Specialist 12/17/20 Goals (unrecognized [...] and content) DATE CREATED AUTHOR 07/14/2021 [facility] DATE CREATED AUTHOR AUTHOR'S ORGANIZ ATION 04/18/2022 [facility] DATE CREATED AUTHOR AUTHOR'S ORGANIZ ATION 07/17/2022 [employer] DATE CREATED AUTHOR AUTHOR'S ORGANIZ ATION 07/31/2022 [facility] DATE CREATED AUTHOR AUTHOR'S ORGANIZ ATION 09/07/2022 [facility] DATE CREATED AUTHOR AUTHOR'S ORGANIZ ATION 09/14/2022 [facility] DATE CREATED AUTHOR AUTHOR'S ORGANIZ ATION 11/21/2022 [facility] FOR RECORDS PERTAINING TO PATIENTS WHO [...] BE BASED ON THE PRIMARY CLINICAL RECORDS. [facility] [employer] [facility]. provides no warranty or guarantee of the accuracy or completeness of information in this document.
--- NOTE | 2023-11-04 13:54 | SWNOTE1 ---
SW attempted to meet with pt 3 times today. Once he had to use the restroom, the other 2 times he was sleeping. I did get permission to speak with his when I went in last time. SW spoke with over the phone. She voiced she is very happy with pt's care at [facility]. Plan is for pt to return at discharge. 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 Important Message from Medicare reviewed and discussed with patient's over the phone. Pt's verbalized understanding and had no questions, SW signed per . Original placed in pt's room and copy placed in patient?s chart.
[2023-11-04] MEDS: CLONIDINE HCL 0.1 MG TABLET 0.3 MG PO ×2 (14:16→21:46)
[2023-11-04] MEDS: NON-FORMULARY 1 EACH (Mycophenolate Mofetil 250 mg capsule) 250 EACH PO ×2 (14:16→21:47)
[2023-11-04] MEDS: NON-FORMULARY 1 EACH (Tacrolimus 1 mg capsule) PO ×2 (14:16→21:47)
[2023-11-04 16:16] LABS: Glucometer 58 mg/dL (74-106)
[2023-11-04 20:29] LABS: Glucometer 85 mg/dL (74-106)
[2023-11-04] MEDS: DILTIAZEM HCL 300 MG CAP.ER.24H PO (21:45)
[2023-11-04] MEDS: SERTRALINE HCL 100 MG TABLET PO (21:45)
[2023-11-04] MEDS: ATORVASTATIN CALCIUM 40 MG TABLET 80 MG PO (21:46)
[2023-11-04] MEDS: MAGNESIUM OXIDE 400 MG TABLET PO (21:46)
[2023-11-04] MEDS: CALCIUM CARBONATE 600 MG/VITAMIN D3 400 IU TABLET 1 TAB PO (21:48)
[2023-11-04] MEDS: FISH OIL 1,000 MG CAPSULE 1000 MG PO (22:00)
[2023-11-04] MEDS: HYDRALAZINE HCL 50 MG TABLET 100 MG PO (22:51)
[2023-11-05] VITALS (12 sets, daily range): BP systolic 99–174; BP diastolic 64–84; PULSE 68–74; TEMP 36.3–36.6; O2SAT 90–92
[2023-11-05] MEDS: LACTATED RINGER'S SOLUTION 1,000 ML 100 ML IV (00:14)
[2023-11-05] MEDS: HYDRALAZINE HCL 20 MG/ML VIAL 10 MG IVP (04:45)
[2023-11-05] MEDS: HYDRALAZINE HCL 50 MG TABLET 100 MG PO (06:28)
[2023-11-05] MEDS: OMEPRAZOLE 40 MG CAPSULE.DR PO (06:30)
[2023-11-05] MEDS: CARBIDOPA/LEVODOPA 25 MG-100 MG TABLET 1.5 TAB PO ×2 (06:30→11:34)
[2023-11-05] MEDS: CLONIDINE HCL 0.1 MG TABLET 0.3 MG PO (06:31)
[2023-11-05] MEDS: LEVOTHYROXINE SODIUM 100 MCG TABLET PO (06:31)
[2023-11-05 07:24] LABS: Basophils Percent Auto 0.4 % (0.2-2.0); Eosinophils Absolute Auto 0.2 10^3/uL (0.0-0.7); Eosinophils Percent Auto 3.1 % (0.9-7.0); Hematocrit 29.7 % (42.0-54.0); Hemoglobin 8.8 g/dL (14.0-18.0); Immature Granulocytes Abs Auto 0.03 10^3/uL (0.00-0.03); Immature Granulocytes Pct Auto 0.4 % (0.0-0.5); Lymphocytes Absolute Auto 0.7 10^3/uL (1.2-3.8); Lymphocytes Percent Auto 10.8 % (20.5-60.0); Mean Corpuscular HGB Conc 29.6 g/dL (29.9-35.2); Mean Corpuscular Hemoglobin 27.3 pg (25.9-34.0); Mean Corpuscular Volume 92.2 fL (80.0-94.0); Mean Platelet Volume 11.1 fL (9.5-13.5); Monocytes Absolute Auto 0.4 10^3/uL (0.3-0.8); Monocytes Percent Auto 6.2 % (1.7-12.0); Neutrophils Absolute Auto 5.4 10^3/uL (1.4-6.5); Neutrophils Percent Auto 79.1 % (43.0-75.0); Platelet Count 144 10^3/uL (150-450); Red Blood Count 3.22 10^6/uL (4.70-6.10); Red Cell Distribution Width 13.9 % (11.0-15.0); White Blood Count 6.8 10^3/uL (4.0-11.0)
[2023-11-05 07:42] LABS: Alanine Aminotransferase 7 U/L (16-63); Albumin Globulin Ratio 0.7; Albumin Level 2.7 g/dL (3.4-5.0); Alkaline Phosphatase 71 U/L (46-116); Aspartate Amino Transferase 13 U/L (15-37); BUN Creatinine Ratio 14.8; Bilirubin Total 0.3 mg/dL (0.2-1.0); Carbon Dioxide 29.2 mmol/L (21.0-32.0); Chloride 106 mmol/L (98-107); Estimated GFR (African America 17 (>=60); Estimated GFR (Non-African Ame 14 (>=60); Globulin 3.8 g/dL; Glucose 77 mg/dL (74-106); Potassium 4.2 mmol/L (3.5-5.1); Sodium 145 mmol/L (136-145); Total Protein 6.5 g/dL (6.4-8.2)
[2023-11-05 07:58] LABS: Glucometer 79 mg/dL (74-106)
--- NOTE | 2023-11-05 08:21 | P.DS_ITS ---
DS: Providers Provider Date of admission: 11/03/23 17:50 Primary care physician: SUZI RICHEY Consults: 11/03/23 17:50 Occupational Therapy Eval and Treat Routine Reason for consultation: Only if needed for Rehab Has provider been notified: No Physical Therapy Eval and Treat Routine Reason for consultation: Eval and Treat Has provider been notified: No DS: Diagnosis Discharge Diagnosis (1) AMS (altered mental status): (2) DAVID (acute kidney injury): (3) CVA (cerebral vascular accident): (4) Parkinson disease: Plan Admission findings: Respiratory distress, hypertensive urgency with blood pressure greater than 200 systolic and greater than 110 diastolic, acute hypoxia with O2 sat of 87%, labs with acute renal failure as outlined above. Admitted for workup and treatment of same Hypertensive urgency-improved today but still persisting, will increase clonidine. Add low-dose carvedilol Abnormal urinalysis-on antibiotics, no elevation white blood cell count with a significant left shift consistent with bacterial process Acute renal failure-baseline creatinine of 2.17 creatinine on admission of 5, there is 230.4% above baseline. He is to continue with gentle hydration. His creatinine is improved today. BNP somewhat elevated. Not significant compared to his elevation in his creatinine. But will monitor daily, consider echocardiogram no rales on lung exam Hypermagnesemia-monitor daily Iron deficiency anemia-monitor daily-Down somewhat today, continue to monitor Thrombocytopenia-monitor daily Insulin-dependent diabetes mellitus-insulin sliding scale Prior CVA-continue with Plavix Parkinson's-continue with medications Admission status: With the degree of his renal failure and history of fluid retention, unable to hydrate quickly, medically necessary treatment will span 2 midnights. Inpatient status ? ? DS: Summary Hospital Course Hospital Course: Admission findings: Respiratory distress, hypertensive urgency with blood pressure greater than 200 systolic and greater than 110 diastolic, acute hypoxia with O2 sat of 87%, labs with acute renal failure as outlined above. Patient given small fluid bolus on admission and then gentle hydration throughout the hospitalization secondary to his history of fluid overload. His creatinine was 5 on admission, is down essentially to 4 today. BNP starting to creep up. So unable to aggressively give more fluids. At this point with holding his diuret ics his creatinine should slowly improve over time back to his baseline of 2- /2. That can be followed as an outpatient. Patient's altered mental status still wax and wane. This likely to persist back at his long-term care facility. Does have some mild thrombocytopenia again ectomy followed up as an outpatient. Mild anemia. Likely related to his chronic kidney disease stage III. At this point he is stable for discharge from a blood pressure standpoint and improving creatinine. Medications see list. Follow-up with long-term care provider at long-term care facility Status at Discharge Overall status at discharge: patient is not back to baseline Time Spent with Patient Time attestation: Total time spent providing and/or coordinating discharge services: Time spent: greater than 30 minutes Exam Constitutional Vital Signs, click to edit/add: Last Vital Signs Temp 97.8 F 11/05/23 07:57 Pulse 70 11/05/23 07:57 Resp 16 11/05/23 07:57 BP 99/64 11/05/23 07:57 Pulse Ox 90 L 11/05/23 07:57 O2 Del Method Room Air 11/05/23 07:57 Documenting provider has reviewed patient's vital signs: yes Common normals: no apparent distress (Sleeping but awakens easily) Chest Common normals: inspection of chest normal and palpation of chest normal Respiratory Common normals: normal respiratory effort and no retractions Cardio Common normals: regular rate and regular rhythm GI Common normals: Normal to inspection, nondistended, normoactive bowel sounds present and soft to palpation; tender (Mild diffuse tenderness no rebound tenderness) Extremity Common normals: abnormal to inspection (Right-sided weakness due to previous stroke, just trace edema) DS: Data Data Completed and Pending Labs on day of discharge: Labs from last 24 hours 11/05/23 11/05/23 11/04/23 07:53 07:06 20:28 WBC 6.8 RBC 3.22 L Hgb 8.8 L Hct 29.7 L MCV 92.2 MCH 27.3 MCHC 29.6 L RDW 13.9 Plt Count 144 L MPV 11.1 Neut % (Auto) 79.1 H Lymph % (Auto) 10.8 L Bullock % (Auto) 6.2 Eos % (Auto) 3.1 Baso % (Auto) 0.4 Neut # (Auto) 5.4 Lymph # (Auto) 0.7 L Bullock # (Auto) 0.4 Eos # (Auto) 0.2 Baso # (Auto) 0.0 Abs Immat Gran (auto) 0.03 Imm/Tot Granulo (auto) 0.4 Sodium 145 Potassium 4.2 Chloride 106 Carbon Dioxide 29.2 Anion Gap 14.0 BUN 61.0 H Creatinine 4.11 H Est GFR ( Amer) 17 L Est GFR (Non-Af Amer) 14 L BUN/Creatinine Ratio 14.8 Glucose 77 Calcium 9.0 Magnesium Total Bilirubin 0.3 AST 13 L ALT 7 L Alkaline Phosphatase 71 NT-Pro-B Natriuret Pep 3099.0 H* Total Protein 6.5 Albumin 2.7 L Globulin 3.8 Albumin/Globulin Ratio 0.7 POC Glucose 79 85 11/04/23 11/04/23 11/04/23 16:15 11:13 06:13 WBC RBC Hgb Hct MCV MCH MCHC RDW Plt Count MPV Neut % (Auto) Lymph % (Auto) Bullock % (Auto) Eos % (Auto) Baso % (Auto) Neut # (Auto) Lymph # (Auto) Bullock # (Auto) Eos # (Auto) Baso # (Auto) Abs Immat Gran (auto) Imm/Tot Granulo (auto) Sodium Potassium Chloride Carbon Dioxide Anion Gap BUN Creatinine Est GFR ( Amer) Est GFR (Non-Af Amer) BUN/Creatinine Ratio Glucose Calcium Magnesium 2.5 H Total Bilirubin AST ALT Alkaline Phosphatase NT-Pro-B Natriuret Pep Total Protein Albumin Globulin Albumin/Globulin Ratio POC Glucose 58 L 58 L Discharge Plan Discharge Disposition: Xfer LTC Condition: Fair Discharge Medications: Continued atorvastatin 80 mg tablet 80 mg PO .QHS buspirone 10 mg tablet 10 mg PO BID calcitonin (salmon) 200 unit/actuation spray,non-aerosol 1 spray intranasal DAILY Patient Comments: ALTERNATE NOSTRILS carbidopa-levodopa 25-100 mg tablet 1.5 tab PO TID cholecalciferol (vitamin D3) 25 mcg (1,000 unit) capsule 25 mcg PO DAILY clonidine HCl 0.2 mg tablet 0.2 mg PO Q12H clopidogrel 75 mg tablet 75 mg PO DAILY diltiazem HCl 300 mg capsule,extended release 24hr 300 mg PO .QHS docusate sodium 100 mg capsule 100 mg PO BID hydralazine 100 mg tablet 100 mg PO Q8H aspirin [Adult Low Dose Aspirin] 81 mg tablet,delayed release (DR/EC) 81 mg PO DAILY acetaminophen 325 mg tablet 650 mg PO Q4H PRN (Reason: fever or pain) bisacodyl [Dulcolax (bisacodyl)] 10 mg suppository 10 mg IA DAILY PRN (Reason: constipation) insulin glargine-yfgn 100 unit/mL (3 mL) insulin pen 55 unit subcut BID isosorbide mononitrate 120 mg tablet extended release 24 hr 120 mg PO DAILY levothyroxine 100 mcg tablet 100 mcg PO .ACB magnesium oxide 400 mg magnesium tablet 400 mg PO BID melatonin 1 mg tablet 2 mg PO .QHS magnesium hydroxide [Milk of Magnesia] 400 mg/5 mL suspension 30 ml PO DAILY PRN (Reason: constipation) mycophenolate mofetil 250 mg capsule 250 mg PO BID pantoprazole 40 mg tablet,delayed release (DR/EC) 40 mg PO DAILY polyethylene glycol 3350 [ClearLax] 17 gram powder in packet 17 g PO DAILY PRN (Reason: constipation) sertraline 100 mg tablet 100 mg PO .QHS tacrolimus 1 mg capsule 1 mg PO BID triamcinolone acetonide 0.1 % cream 1 applic TOPICAL DAILY triamcinolone acetonide 0.1 % ointment 1 applic TOPICAL BID PRN (Reason: itching) simethicone [Gas Relief 80 (simethicone)] 80 mg tablet,chewable 80 mg PO QID PRN (Reason: abdominal distention) calcium carbonate-vitamin D3 [Calcium 500 + D] 500 mg-5 mcg (200 unit) tablet 1 tab PO BID alendronate 35 mg tablet 35 mg PO QWEEK insulin lispro 100 unit/mL insulin pen 4 - 14 unit SUBCUT ACHS Rx Instructions: 150-200 4 UNITS 201-250 6 UNITS 251-300 8 UNITS 301-350 10 UNITS 351-400 12 UNITS 401-450 14 UNITS omega-3 fatty acids-fish oil 340-1,000 mg capsule 1 cap PO BID fluocinonide 0.05 % solution 1 applic topical BID PRN (Reason: rash) Rx Instructions: ON SCALP CeraVe Itch Relief 1 % cream 1 applic topical .QHS Anti-Itch(diphenhyd) with Zinc 2-0.1 % cream 1 applic topical QID PRN (Reason: itching) Discontinued furosemide 40 mg tablet 40 mg PO DAILY Print Language: Hebrew Telesales Manager/Service Desk Specialist Instructions: Discharge back to [facility] 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
--- NOTE | 2023-11-05 08:44 | CM.NOTE ---
Rounds made with Dr. Mendez, discussed possible discharge to [facility] today awaiting am labs.
[2023-11-05] MEDS: ASPIRIN 81 MG TABLET.DR PO (08:57)
[2023-11-05] MEDS: CHOLECALCIFEROL (VITAMIN D3) 25 MCG/1,000 UNITS TABLET PO (08:57)
[2023-11-05] MEDS: DOCUSATE SODIUM 100 MG CAPSULE PO (08:57)
[2023-11-05] MEDS: BUSPIRONE HCL 10 MG TABLET PO (08:57)
[2023-11-05] MEDS: CALCIUM CARBONATE 600 MG/VITAMIN D3 400 IU TABLET 1 TAB PO (08:57)
[2023-11-05] MEDS: CALCITONIN,SALMON,SYNTHETIC 30 SPRAY/3.7 ML BOTTLE NS (08:57)
[2023-11-05] MEDS: CLOPIDOGREL BISULFATE 75 MG TABLET PO (08:57)
[2023-11-05] MEDS: FISH OIL 1,000 MG CAPSULE 1000 MG PO (08:57)
[2023-11-05] MEDS: NON-FORMULARY 1 EACH (Mycophenolate Mofetil 250 mg capsule) 250 EACH PO (08:57)
[2023-11-05] MEDS: MAGNESIUM OXIDE 400 MG TABLET PO (08:57)
[2023-11-05] MEDS: NON-FORMULARY 1 EACH (Tacrolimus 1 mg capsule) PO (08:58)
--- NOTE | 2023-11-05 09:39 | SWNOTE1 ---
BRIDGET called and set up [facility] transport due to prior CVA. [facility] will be here around 2:00 for transport. BRIDGET notified nursing, pt's , and Karma at [facility]. Pt is returning skilled nursing.
--- NOTE | 2023-11-05 10:26 | SWNOTE1 ---
BRIDGET took packet to the floor and placed CRF in packet. BRIDGET sent over dc med rec and updated labs to Karma at [facility].
[2023-11-05 11:35] LABS: Glucometer 96 mg/dL (74-106)
[2023-11-05 12:35] LABS: Magnesium 2.4 mg/dL (1.8-2.4)
== END 2023-11-05 14:56 | DRG 683 ==
LOC: ER 16:42 → MS 11-04 08:20
PROVIDERS: Admitting Provider Family Medicine; Emergency Provider Emergency Medicine; PCP Family Medicine; Visit Provider Family Medicine
DX: N17.9 Acute kidney failure, unspecified (principal); I13.0 Hypertensive heart and chronic kidney disease with heart failure and stage 1 through stage 4 chronic kidney disease, or unspecified chronic kidney disease; Z94.1 Heart transplant status; I16.0 Hypertensive urgency; N40.1 Benign prostatic hyperplasia with lower urinary tract symptoms; E11.22 Type 2 diabetes mellitus with diabetic chronic kidney disease; R06.03 Acute respiratory distress; R09.02 Hypoxemia; R82.90 Unspecified abnormal findings in urine; E83.41 Hypermagnesemia; D50.9 Iron deficiency anemia, unspecified; D69.6 Thrombocytopenia, unspecified; Z86.73 Personal history of transient ischemic attack (TIA), and cerebral infarction without residual deficits; Z79.02 Long term (current) use of antithrombotics/antiplatelets; G20.A1 Parkinson's disease without dyskinesia, without mention of fluctuations; Z66 Do not resuscitate; Z79.82 Long term (current) use of aspirin; Z79.4 Long term (current) use of insulin; Z79.899 Other long term (current) drug therapy; I50.9 Heart failure, unspecified; R79.89 Other specified abnormal findings of blood chemistry; N18.30 Chronic kidney disease, stage 3 unspecified; D63.1 Anemia in chronic kidney disease; K80.20 Calculus of gallbladder without cholecystitis without obstruction
CPT/HCPCS: 36415; 36600; 70450; 74176; 80048; 80053; 81001; 82140; 82805; 82948; 83605; 83690; 83735; 83880; 84484; 85007; 85025; 85027; 85610; 87040; 87086; 93005; 94667; 94668; 94761; 96361; 96365; 96366; 96375; 96376; 97165; 99285; J0360

== ENCOUNTER 2023-11-25 06:30 | Observation (INO) | payer MEDICARE, SELFPAY ==
[2023-11-25] VITALS (22 sets, daily range): BP systolic 110–169; BP diastolic 40–79; PULSE 81–91; RESP 16; TEMP 36.1–36.9; O2SAT 63–100; BMI 33.0
--- NOTE | 2023-11-25 06:30 | ECG_ITS ---
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
--- NOTE | 2023-11-25 06:38 | XR_ITS ---
The [address] [address] Patient Name: OLIVERIO RUTLEDGE MRN: [id number] date: 1945 Sex: M Assigned Patient Location: ER Current Patient Location: ER Accession/Order Number: [id number] Exam Date: 11/25/2023 06:51 Report Date: 11/25/2023 07:09 At the request of: RADHA MARKER Procedure: XR chest 1V EXAMINATION: XR chest 1V HISTORY: SOB COMPARISON: 04/14/2023 TECHNIQUE: AP portable FINDINGS: LUNGS: No significant pulmonary parenchymal abnormalities. Low lung volumes VASCULATURE: No increased pulmonary vasculature. PLEURA: No pneumothorax, effusion, or pleural thickening. CARDIAC: No cardiomegaly or cardiac silhouette abnormality. MEDIASTINUM: No visible mass or adenopathy. Median sternotomy wires BONES: No fracture or visible bone lesion. OTHER: Negative. XR/XR chest 1V IMPRESSION: Low volume exam, clear lungs Electronically authenticated by: SANTOS ALFONSO Date: 11/25/2023 07:09
--- OUTSIDE RECORDS SUMMARY | 2023-11-25 06:39 | XMS_ITS | CCD ---
Author Organization [facility] Care Team Providers Care Chemical Engineering Intern Name Role Phone Michael Carballo Unavailable Unavailable Unavailable Michael Carballo Primary Care Provider MD Michael Carballo Primary Care Provider JIL Davies Attending Provider DO Manfred Wilson [facility] Andrew Hern[facility]dez Emergency Provider [phone] MD Omid Myrick Admit Provider MD Omid Myrick Attending Provider [phone] Al MD Yoshi Campoverde Attending Provider Michael Carballo Unavailable DionPascual [place] Unavailable Palliative Care Unavailable Unavailable Gene Shook [...] Frank Attending Unava ilable Haris, Dr. Michael óLpez Primary Care Unavailab Manfred Barlow Primary Care Unavailable Anna Tucker Attending Unavailable Anna Tucker Admitting Unavailable Allergies Allergy Classification Reported Allergen(s) Allergy Type Date of Onset Reaction(s) Facility (8 sources) Allopurinol; Translations: [allopurinol] Drug Allergy 10-16-2018 [facility] (8 sources) ceFAZolin; Translations: [Cefazolin] Drug Allergy 06-25-2021 Rash, [facility] Comment on above: extensive fiery red and warm flat rash (1 source) Allopurinol Drug Allergy [facility] (1 source) ceFAZolin Drug Allergy [facility] (1 source) Allopurinol Drug Allergy [...] mg Start: 11-03-2018 take 1 capsule by [facility] once daily in the evening dilTIAZem HCl ER Coated Beads 300 MG Oral Capsule Extended Release 24 Hour take 1 capsule every evening Quantity: 0 Refills: 0 Ordered: 04-Jul-2021 Felicia Astorga DO Start : 03-Nov-2018 Active Start: 11-03-2018 take 1 capsule by [facility] once daily dilTIAZem HCl ER Coated Beads 360 MG Oral Capsule Extended Release 24 Hour TAKE 1 CAPSULE Daily Quantity: 30 Refills: 11 Ordered: 03-Nov-2018 Felicia Astorga DO Start : 03-Nov-2018 Active Start: 11-03-2018 take 1 capsule by [facility] once daily dilTIAZem HCl ER Coated Beads 240 MG Oral Capsule Extended Release 24 Hour TAKE 1 CAPSULE Daily Quantity: 90 Refills: 3 Ordered: 24-Dec-2020 Felicia Astorga DO Start : 03-Nov-2018 Active Start: 10-31-2018 take 1 capsule by [facility] every twenty-four hours dilTIAZem 240 mg/24 [...] mg Start: 11-02-2018 take 1 capsule by [facility] every twelve hours Mycophenolate Mofetil 250 [...] Tamiko Dsouza Status: Discontinued Generic Substitution Allowed [place] 8-Odm-Qry-Fish Oil (Fish Oil) 1,000 mg (120 mg-180 mg) Capsule (4 sources) Start: 08-05-2017 take 1 tablet by mouth twice daily [place] 7-Kyy-Eiu-Fish Oil (Fish Oil) 1,000 mg (120 mg-180 mg) Capsule Active 1 TAB PO Twice daily August 05, 2017 11:13am Start: 08-05-2017 take 1 tablet by anila th once daily [place] 9-Bgg-Pil-Fish Oil (Fish Oil) 1,000 mg (120 mg-180 mg) Capsule Active 1 TAB PO Daily August 05, 2017 11:13am Start: 08-05-2017 take 1 tablet by anila th twice daily [place] 9-Rsb-Yid-Fish Oil (Fish Oil) 1,000 mg (120 mg-180 [...] tube 2 times a day only on Dbdkfs-Kmdanrkaj-Rdyjej Quantity: 24 Refills: 0 Ordered: 21-Jan-2016 Warren [...] liver damage. take 2 tablets by mo [facility] every six hours as needed for pain [...] Start: 10-15-2021 take 2 tablets by mo [facility] once daily busPIRone HCl - 10 MG Oral Tablet TAKE 2 TABLET Daily Quantity: 0 Refills: 0 Ordered: 15-Oct-2021 DO Start : 15-Oct-2021 Active take 1 tablet by [facility] twice daily busPIRone (BUSPAR) 15 MG [...] Allowed Start: 10-31-2018 take 1 capsule by [facility] every six hours as needed diphenhydrAMINE [...] 1 capsule by mouth twice da padmaja [place]-3 Fatty Acids (FISH OIL) 1000 MG CAPS [...] if Blood Glucose is between 251 - 81372 unit(s) if Blood Glucose is between 301 - 11285 unit(s) if Blood Glucose is between 351 [...] if Blood glucose is between 301 - 19556 unit(s) if Blood glucose is between 351 [...] 02-Jul-2021 Generic Substitution Allowed polyethylene glycol 3350 49271 mg powder for oral solution (7 sources) Osmotic Laxative Start: 10-15-2021 MiraLax Mix-I n [place] 17 GM Oral Packet MIX 1 PACKET [...] Allowed Start: 07-02-2021 take 1 capsule by [facility] every twelve hours Tacrolimus 1 MG [...] (1 source) Namrata coma scale finding; Translations: [Reading coma scale score 13-15, at hospital admission] [...] right upper extremity 06-30-2021 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 (1 source) medical terminologist current use of insulin 07-02-2021 Past or Other Problems Problem Classification Problem Date Documented Da te Episodic/Chronic Other gastrointestinal disorders (1 source) Dysphagia, unspecified; Translations: [DYSPHAGIA UNSPECIFIED] Onset: 08-08-2021 Episodic 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 (1 source) SWELLING UPPER/LOW EXTREMITIES 06-27-2021 Comment on above: SWELLING UPPER/LOW E XTREMITIES Results Test Name Value Interpretation Reference Range Facility [facility] 09-14-2022 Lab Reports [id number]:127 Normal [facility] VIT D 25-OH LABCORPon 2022 Vitamin D, 25-Hydroxy 29.5 ng/mL Critically low 30.0-100.0 [facility] Comment on above: Result Comment: Jennifer min D deficiency has been defined by the Dennis of Medicine and an Endocrine Society practice guideline as a level of serum 25-OH vitamin D less than 20 ng/mL (1,2). The Endocrine Society went on to further define vitamin D insufficiency as a level between 21 and 29 ng/mL (2). 1. IOM (Dennis of Medicine). 2010. Dietary reference intakes for calcium and D. [place]: The National Academies Press. 2. Ely MF, Brad [place], Kristy ORTEGA, et al. Evaluation, treatment, and prevention of vitamin D deficiency: an Endocrine Society clinical practice guideline. JCEM. 2010; 96(7):1911-30. Performed By: #### V ITADLC #### [facility] [address] [place] [address] Dr. Ronnie Pennington CBC AUTO DIFFon 07-24-2022 BASO # 0.0 103/ul Normal 0.0-0.1 [facility] Comment on above: Performed By: #### C BC #### [facility] [id number] Ronnie Pennington Basophils/100 WBC (Bld) 0.6 % Normal 0.2-2.0 [facility] Comment on above: Performed By: #### C BC #### [facility] [address] [address] [address] Ronnie Pennington EO # 0.1 103/ul Normal 0.0-0.7 [facility] Comment on above: Performed By: #### C BC #### [facility] [address] [address] [address] Ronnie Pennington Eosinophils/100 WBC (Bld) 2.0 % Normal 0.9-7.0 [facility] Comment on above: Performed By: #### C BC #### [facility] [address] [place] [address] Dr. Ronnie Pennington Erythrocyte distribution width (RBC) [Ratio] 13.2 % Normal 11.0-15.0 [facility] Comment on above: Performed By: #### C BC #### [facility] [address] [place] [address] Dr. Ronnie Pennington Hematocrit (Bld) [Volume fraction] 33.3 % Critically low 42.0-54.0 [facility] Comment on above: Performed By: #### C BC #### [facility] [address] [place] [address] Dr. Ronnie Pennington Hemoglobin (Bld) [Mass/Vol] 10.0 g/dL Critically low 14.0-18.0 [facility] Comment on above: Performed By: #### C BC #### [facility] [address] [address] [address] Ronnie Pennington IG # 0.04 10e3/ul Critically high 0.00-0.03 [facility] Comment on above: Performed By: #### C BC #### [facility] [address] [address] [address] Ronnie Pennington IG % 0.6 % Critically high 0.0-0.5 [facility] Comment on above: Performed By: #### C BC #### [facility] [address] [place] [address] Dr. Ronnie Pennington LYMPH # 1.2 103/ul Normal 1.2-3.8 [facility] Comment on above: Performed By: #### C BC #### [facility] [address] [place] [address] Dr. Ronnie Pennington Lymphocytes/100 WBC (Bld) 17.9 % Critically low 20.5-60.0 [facility] Comment on above: Performed By: #### C BC #### [facility] [address] [place] [address] Dr. Ronnie Pennington MANUAL DIFF REQ NO Normal [facility] Comment on above: Performed By: #### C BC #### [facility] [address] [place] [address] Dr. Ronnie Pennington MCH (RBC) [Entitic mass] 28.2 pg Normal 25.9-34.0 [facility] Comment on above: Performed By: #### C BC #### [facility] [address] [place] [address] Dr. Ronnie Pennington MCHC (RBC) [Mass/Vol] 30.0 g/dL Normal 29.9-35.2 [facility] Comment on above: Performed By: #### C BC #### [facility] [address] [place] [address] Dr. Ronnie Pennington MCV (RBC) [Entitic vol] 94.1 fL Critically high 80.0-94 .0 [facility] Comment on above: Performed By: #### C BC #### [facility] [address] [place] [address] Dr. Ronnie Pennington MONO # 0.4 103/ul Normal 0.3-0.8 [facility] Comment on above: Performed By: #### C BC #### [facility] [address] [place] [address] Dr. Ronnie Pennington Monocytes/100 WBC (Bld) 6.5 % Normal 1.7-12.0 [facility] Comment on above: Performed By: #### C BC #### [facility] [address] [place], [place] [id number] Dr. Ronnie Pennington NEUT # 4.8 103/ul Normal 1.4-6.5 [facility] Comment on above: Performed By: #### C BC #### [facility] [address] [place] [address] Dr. Ronnie Pennington Neutrophils/100 WBC (Bld) 72.4 % Normal 43.0-75.0 [facility] Comment on above: Performed By: #### C BC #### [facility] [address] [place] [address] Dr. Ronnie Pennington Platelet mean volume (Bld) [Entitic vol] 11.7 fL Normal 9.5-13.5 [facility] Comment on above: Performed By: #### C BC #### [facility] [address] [place] [address] Dr. Ronnie Pennington PLT 137 103/ul Critically low 150-450 [facility] Comment on above: Performed By: #### C BC #### [facility] [address] [place] [address] Dr. Ronnie Pennington RBC 3.54 106/ul Critically low 4.70-6.10 [facility] Comment on above: Performed By: #### C BC #### [facility] [address] [place] [address] Dr. Ronnie Pennington WBC 6.6 103/ul Normal 4.0-11.0 [facility] Comment on above: Performed By: #### C BC #### [facility] [address] [place] [address] Dr. Ronnie Pennington GLYCOHEMOGLOBIN A1Con 2022 ADA RECOMMENDATION SEE BELOW Normal [facility] Comment on above: Result Comment: ADA RECOMMENDED LIMIT 4.0 - 6.0 ADA THERAPEUTIC TARGET < 7.0 ACTION SUGGESTED > 7.0 Performed By: #### A 1C #### [facility] [address] [place] [address] Dr. Ronnie Pennington Glucose [Mass/Vol] 171 mg/dL Normal [facility] Comment on above: Performed By: #### A 1C #### [facility] [address] [place] [address] Dr. Ronnie Pennington HbA1c (Bld) [Mass fraction] 7.6 % Critically high 4.5-6.2 [facility] Comment on above: Performed By: #### A 1C #### [facility] [address] [address] [address] Ronnie Pennington MAGNESIUMon 07-24-2022 Magnesium [Mass/Vol] 2.3 mg/dL Normal 1.8-2.4 [facility] Comment on above: Performed By: #### M G, TSH, CMP ####[facility] [address] [address]DrFreddy Pennington PROF 14(COMP METB)on 023 Albumin [Mass/Vol] 2.8 g/dL Critically low 3.4-5.0 [facility] Comment on above: Performed By: #### M G, TSH, CMP ####[facility] [address] [address]DrFreddy Pennington Albumin/Globulin [Mass ratio] 0.7 {ratio} Normal [facility] Comment on above: Performed By: #### M G, TSH, CMP ####[facility] [address] [address]Dr. Ronnie Pennington ALP [Catalytic activity/Vol] 69 U/L Normal 46-116 [facility] Comment on above: Performed By: #### M G, TSH, CMP ####[facility] [address] [address]DrrFeddy Pennington ALT [Catalytic activity/Vol] 8 U/L Critically low 16-63 [facility] Comment on above: Performed By: #### M G, TSH, CMP ####[facility] [address] [id number]. Ronnie Pennington Anion gap [Moles/Vol] 9.9 mmol/L Normal [facility] Comment on above: Performed By: #### M G, TSH, CMP ####[facility] [address] [address]Dr. Ronnie Pennington AST [Catalytic activity/Vol] 9 U/L Critically low 15-37 [facility] Comment on above: Performed By: #### M G, TSH, CMP ####[facility] [address] [address]Dr. Ronnie Pennington Bilirubin [Mass/Vol] 0.2 mg/dL Normal 0.2-1.0 [facility] Comment on above: Performed By: #### M G, TSH, CMP ####[facility] [address] [place], [place] [address]Dr. Ronnie Pennington Calcium [Mass/Vol] 8.9 mg/dL Normal 8.5-10.1 [facility] Comment on above: Performed By: #### M G, TSH, CMP ####[facility] [address] [place], [place] [address]Dr. Ronnie Pennington Chloride [Moles/Vol] 104 mmol/L Normal 98-107 [facility] Comment on above: Performed By: #### M G, TSH, CMP ####[facility] [address] [place], [place] [address]Dr. Ronnie Pennington CO2 [Moles/Vol] 28.4 mmol/L Normal 21.0-32.0 [facility] Comment on above: Performed By: #### M G, TSH, CMP ####[facility] [address] [place], [place] [address]Dr. Ronnie Pennington Creatinine [Mass/Vol] 2.09 mg/dL Critically high 0.70-1.30 [facility] Comment on above: Performed By: #### M G, TSH, CMP ####[facility] [address] [place], [place] [address]Dr. Ronnie Pennington EGFR-AF PAKISTANI 37 mL/min/1.73m2 Critically low >=60 [facility] Comment on above: Performed By: #### M G, TSH, CMP ####[facility] [address] [place], [place] [address]Dr. Ronnie Pennington EGFR-NON AF PAKISTANI 31 mL/min/1.73m2 Critically low >=60 [facility] Comment on above: Performed By: #### M G, TSH, CMP ####[facility] [address] [id number]. Ronnie Pennington Globulin (S) [Mass/Vol] 3.9 g/dL Normal [facility] Comment on above: Performed By: #### M G, TSH, CMP ####[facility] [address] [address]Dr. Ronnie Pennington Glucose [Mass/Vol] 165 mg/dL Critically high 74-106 [facility] Comment on above: Performed By: #### M G, TSH, CMP ####[facility] [address] [address]Dr. Ronnie Pennington Potassium [Moles/Vol] 4.3 mmol/L Normal 3.5-5.1 [facility] Comment on above: Performed By: #### M G, TSH, CMP ####[facility] [address] [place], [place] [address]Dr. Ronnie Pennington Protein [Mass/Vol] 6.7 g/dL Normal 6.4-8.2 [facility] Comment on above: Performed By: #### M G, TSH, CMP ####[facility] [address] [place], [place] [address]Dr. Ronnie Pennington Sodium [Moles/Vol] 138 mmol/L Normal 136-145 [facility] Comment on above: Performed By: #### M G, TSH, CMP ####[facility] [address] [place], [place] [address]Dr. Ronnie Pennington Urea nitrogen [Mass/Vol] 33.0 mg/dL Critically high 7.0-18.0 [facility] Comment on above: Performed By: #### M G, TSH, CMP ####[facility] [address] [place], [place] [address]Dr. Ronnie Pennington Urea nitrogen/Creatinine [Mass ratio] 15.8 mg/mg Normal [facility] Comment on above: Performed By: #### M G, TSH, CMP ####[facility] [address] [place], [place] [address]Dr. Ronnie Gorge TSHon 07-24-2022 TSH 2.763 uIU/mL Normal 0.358-3.74 0 [facility] Comment on above: Performed By: #### M G, TSH, CMP ####[facility] [address] [address]Dr. Ronnie Pennington FK506 (TACROLIMUS) WHOLE BLO ODon 07-15-2022 Tacrolimus (FK506), Blood 9.4 ng/mL Normal 2.0-20.0 [facility] Comment on above: Result Comment: Trou gh (immediately following transplant) 15.0 . Trough (steady state, 2 weeks or more after transplant): 3.0 - 8.0 . Performed by LC-MS/MS technology. Performed By: #### F [id number] #### [facility] [address] [place] [address] Dr. Ronnie Pennington CBC AUTO DIFFon 07-13-2022 BASO # 0.0 103/ul Normal 0.0-0.1 [facility] Comment on above: Performed By: #### C BC #### [facility] [address] [place] [address] Dr. Ronnie Pennington Basophils/100 WBC (Bld) 0.3 % Normal 0.2-2.0 [facility] Comment on above: Performed By: #### C BC #### [facility] [address] [place] [address] Dr. Ronnie Pennington EO # 0.2 103/ul Normal 0.0-0.7 [facility] Comment on above: Performed By: #### C BC #### [facility] [address] [place] [address] Dr. Ronnie Pennington Eosinophils/100 WBC (Bld) 2.5 % Normal 0.9-7.0 [facility] Comment on above: Performed By: #### C BC #### [facility] [address] [place] [address] Dr. Ronnie Pennington Erythrocyte distribution width (RBC) [Ratio] 13.1 % Normal 11.0-15.0 [facility] Comment on above: Performed By: #### C BC #### [facility] [address] [place] [address] Dr. Ronnie Pennington Hematocrit (Bld) [Volume fraction] 33.4 % Critically low 42.0-54.0 [facility] Comment on above: Performed By: #### C BC #### [facility] [address] [place] [address] Dr. Ronnie Pennington Hemoglobin (Bld) [Mass/Vol] 10.4 g/dL Critically low 14.0-18.0 [facility] Comment on above: Performed By: #### C BC #### [facility] [address] [address] [address] Ronnie Pennington IG # 0.04 10e3/ul Critically high 0.00-0.03 [facility] Comment on above: Performed By: #### C BC #### [facility] [address] [place] [address] Dr. Ronnie Pennington IG % 0.6 % Critically high 0.0-0.5 [facility] Comment on above: Performed By: #### C BC #### [facility] [address] [place] [address] Dr. Ronnie Pennington LYMPH # 1.2 103/ul Normal 1.2-3.8 [facility] Comment on above: Performed By: #### C BC #### [facility] [address] [place] [address] Dr. Ronnie Pennington Lymphocytes/100 WBC (Bld) 16.8 % Critically low 20.5-60.0 [facility] Comment on above: Performed By: #### C BC #### [facility] [address] [place] [address] Dr. Ronnie Pennington MANUAL DIFF REQ NO Normal [facility] Comment on above: Performed By: #### C BC #### [facility] [address] [place] [address] Dr. Ronnie Pennington MCH (RBC) [Entitic mass] 28.5 pg Normal 25.9-34.0 [facility] Comment on above: Performed By: #### C BC #### [facility] [address] [place] [address] Dr. Ronnie Pennington MCHC (RBC) [Mass/Vol] 31.1 g/dL Normal 29.9-35.2 [facility] Comment on above: Performed By: #### C BC #### [facility] [address] [place] [address] Dr. Ronnie Pennington MCV (RBC) [Entitic vol] 91.5 fL Normal 80.0-94.0 [facility] Comment on above: Performed By: #### C BC #### [facility] [address] [place] [address] Dr. Ronnie Pennington MONO # 0.5 103/ul Normal 0.3-0.8 [facility] Comment on above: Performed By: #### C BC #### [facility] [address] [place] [address] Dr. Ronnie Pennington Monocytes/100 WBC (Bld) 7.5 % Normal 1.7-12.0 [facility] Comment on above: Performed By: #### C BC #### [facility] [address] [place] [address] Dr. Ronnie Pennington NEUT # 5.0 103/ul Normal 1.4-6.5 [facility] Comment on above: Performed By: #### C BC #### [facility] [address] [place] [address] Dr. Ronnie Pennington Neutrophils/100 WBC (Bld) 72.3 % Normal 43.0-75.0 [facility] Comment on above: Performed By: #### C BC #### [facility] [address] [place] [address] Dr. Ronnie Pennington Platelet mean volume (Bld) [Entitic vol] 11.8 fL Normal 9.5-13.5 [facility] Comment on above: Performed By: #### C BC #### [facility] [address] [place] [address] Dr. Ronnie Pennington PLT 126 103/ul Critically low 150-450 [facility] Comment on above: Performed By: #### C BC #### [facility] [address] [place] [address] Dr. Ronnie Pennington RBC 3.65 106/ul Critically low 4.70-6.10 [facility] Comment on above: Performed By: #### C BC #### [facility] [address] [address] [address] Ronnie Pennington WBC 6.9 103/ul Normal 4.0-11.0 [facility] Comment on above: Performed By: #### C BC #### [facility] [address] [address] [address] Ronnie Pennington MAGNESIUMon 07-13-2022 Magnesium [Mass/Vol] 2.1 mg/dL Normal 1.8-2.4 [facility] Comment on above: Performed By: #### C MP, MG #### [facility] [address] [address] [address] Ronnie Pennington Office Visit (Cardiology)on 07-13-2022 Follow-up visit Patient Instructions -Please bring a list of your medications to every appointment. -We will schedule you a follow up appointment in # months. We will call you with this date. -If you have any questions, please do not hesitate to contact our office at [phone]. For after hours issues, please call [phone]. Chief Complaint OLIVERIO ESCOBEDO is being seen [...] TabletTake 1 tablet twice daily MiraLax Mix-In [place] 17 GM Oral PacketMIX 1 PACKET in [...] Albumin [Mass/Vol] 2.9 g/dL Critically low 3.4-5.0 [facility] Comment on above: Performed By: #### C MP, MG #### [facility] [address] [place] [address] Dr. Ronnie Pennington Albumin/Globulin [Mass ratio] 0.7 {ratio} Normal [facility] Comment on above: Performed By: #### C MP, MG #### [facility] [address] [place] [address] Dr. Ronnie Pennington ALP [Catalytic activity/Vol] 71 U/L Normal 46-116 [facility] Comment on above: Performed By: #### C MP, MG #### [facility] [address] [place] [address] Dr. Ronnie Pennington ALT [Catalytic activity/Vol] 12 U/L Critically low 16-63 [facility] Comment on above: Performed By: #### C MP, MG #### [facility] [address] [place] [address] Dr. Ronnie Pennington Anion gap [Moles/Vol] 15.1 mmol/L Normal [facility] Comment on above: Performed By: #### C MP, MG #### [facility] [address] [place] [address] Dr. Ronnie Pennington AST [Catalytic activity/Vol] 11 U/L Critically low 15-37 [facility] Comment on above: Performed By: #### C MP, MG #### [facility] [address] [place] [address] Dr. Ronnie Pennington Bilirubin [Mass/Vol] 0.2 mg/dL Normal 0.2-1.0 [facility] Comment on above: Performed By: #### C MP, MG #### [facility] [address] [place] [address] Dr. Ronnie Pennington Calcium [Mass/Vol] 9.2 mg/dL Normal 8.5-10.1 [facility] Comment on above: Performed By: #### C MP, MG #### [facility] [address] [place] [address] Dr. Ronnie Pennington Chloride [Moles/Vol] 105 mmol/L Normal 98-107 [facility] Comment on above: Performed By: #### C MP, MG #### [facility] [address] [place] [address] Dr. Ronnie Pennington CO2 [Moles/Vol] 28.1 mmol/L Normal 21.0-32.0 [facility] Comment on above: Performed By: #### C MP, MG #### [facility] [address] [place] [address] Dr. Ronnie Pennington Creatinine [Mass/Vol] 2.14 mg/dL Critically high 0.70-1.30 [facility] Comment on above: Performed By: #### C MP, MG #### [facility] [address] [place] [address] Dr. Ronnie Pennington EGFR-AF PAKISTANI 36 mL/min/1.73m2 Critically low >=60 [facility] Comment on above: Performed By: #### C MP, MG #### [facility] [address] [place] [address] Dr. Ronnie Pennington EGFR-NON AF PAKISTANI 30 mL/min/1.73m2 Critically low >=60 [facility] Comment on above: Performed By: #### C MP, MG #### [facility] [address] [place] [address] Dr. Ronnie Pennington Globulin (S) [Mass/Vol] 4.0 g/dL Normal [facility] Comment on above: Performed By: #### C MP, MG #### [facility] [address] [place] [address] Dr. Ronnie Pennington Glucose [Mass/Vol] 150 mg/dL Critically high 74-106 [facility] Comment on above: Performed By: #### C MP, MG #### [facility] [address] [place] [address] Dr. Ronnie Pennington Potassium [Moles/Vol] 4.2 mmol/L Normal 3.5-5.1 [facility] Comment on above: Performed By: #### C MP, MG #### [facility] [address] [address] [address] Ronnie Pennington Protein [Mass/Vol] 6.9 g/dL Normal 6.4-8.2 [facility] Comment on above: Performed By: #### C MP, MG #### [facility] [address] [address] [address] Ronnie Pennington Sodium [Moles/Vol] 144 mmol/L Normal 136-145 [facility] Comment on above: Performed By: #### C MP, MG #### [facility] [address] [address] [address] Ronnie Pennington Urea nitrogen [Mass/Vol] 32.0 mg/dL Critically high 7.0-18.0 [facility] Comment on above: Performed By: #### C MP, MG #### [facility] [address] [address] [address] Ronnie Pennington Urea nitrogen/Creatinine [Mass ratio] 15.0 mg/mg Normal [facility] Comment on above: Performed By: #### C MP, MG #### [facility] [address] [address] [address] Ronnie Pennington Transplant SW Assessment Upd [...] Jul 15 2022 12:57PM EST (Author) Normal [facility] (roll[employer]to) Consultation Noteon 06-10-19 Consultation Note [id number] Normal [facility] TSHon 06-05-2022 TSH 3.293 uIU/mL Normal 0.358-3.74 0 [facility] Comment on above: Performed By: #### T SH #### [facility] [address] [address] [address] Ronnie Pennington Cult,Woundon 04-19-2022 Cult,Wound Specimen [...] Tetracycline <=1 SUSCEPTIBLE Trimethoprim/Sulfa <=10 SUSCEPTIBLE Susceptible [facility] Comment on above: Performed By: #### W MN #### [facility] [address] [place] [address] Creative Services Writer: David Gonzalez MD PROF CHEM 8 ([facility])on Anion gap [Moles/Vol] 14.9 mmol/L Normal [facility] Comment on above: Performed By: #### B MP #### [facility] [address] [address] [address] Ronnie Pennington Calcium [Mass/Vol] 8.8 mg/dL Normal 8.5-10.1 [facility] Comment on above: Performed By: #### B MP #### [facility] [address] [address] [address] Ronnie Pennington Chloride [Moles/Vol] 104 mmol/L Normal 98-107 [facility] Comment on above: Performed By: #### B MP #### [facility] [address] [address] [address] Ronnie Pennington CO2 [Moles/Vol] 26.6 mmol/L Normal 21.0-32.0 [facility] Comment on above: Performed By: #### B MP #### [facility] [address] [address] [address] Ronnie Pennington Creatinine [Mass/Vol] 2.03 mg/dL Critically high 0.70-1.30 [facility] Comment on above: Performed By: #### B MP #### [facility] [address] [address] [address] Ronnie Pennington EGFR-AF PAKISTANI 39 mL/min/1.73m2 Critically low >=60 [facility] Comment on above: Performed By: #### B MP #### [facility] [address] [address] [address] Ronnie Pennington EGFR-NON AF PAKISTANI 32 mL/min/1.73m2 Critically low >=60 [facility] Comment on above: Performed By: #### B MP #### [facility] [address] [address] [address] Ronnie Pennington Glucose [Mass/Vol] 209 mg/dL Critically high 74-106 [facility] Comment on above: Performed By: #### B MP #### [facility] [address] [address] [address] Ronnie Pennington Potassium [Moles/Vol] 4.5 mmol/L Normal 3.5-5.1 [facility] Comment on above: Performed By: #### B MP #### [facility] [address] [address] [address] Ronnie Pennington Sodium [Moles/Vol] 141 mmol/L Normal 136-145 [facility] Comment on above: Performed By: #### B MP #### [facility] [address] [address] [address] Ronnie Pennington Urea nitrogen [Mass/Vol] 26.0 mg/dL Critically high 7.0-18.0 [facility] Comment on above: Performed By: #### B MP #### [facility] [address] [address] [address] Ronnie Pennington Urea nitrogen/Creatinine [Mass ratio] 12.8 mg/mg Normal [facility] Comment on above: Performed By: #### B MP #### [facility] [address] [address] [address] Ronnie Pennington Office Visit (Cardiology)on 10-15-2021 [...] office visit; documented BPs at the [facility] 120-130s/70-80s. Benadryl 25 mg q6h PRN [...] JARON NESS Date: 2021-08-05 15:10 Normal [facility] CBC AND DIFFERENTIALon 07-13 % AUTOMATED IMMATURE GRAN 0.5 % Normal 0.0 - 0.9 [facility] Comment on above: Result Comment: Christal ture Granulocyte Count (IG) includes promyelocytes, myelocytes and metamyelocytes but does not include bands. Percent differential counts (%) should be interpreted in the context of the absolute cell counts (cells/L). Performed By: #### C BCDF #### [address] [address] Basophils (Bld) [#/Vol] 0.02 10*3/uL Normal 0.00 - 0.10 [facility] Comment on above: Performed By: #### C BCDF #### [address] [address] Basophils/100 WBC (Bld) 0.3 % Normal 0.0 - 2.0 [facility] Comment on above: Performed By: #### C BCDF #### [address] [address] Eosinophils (Bld) [#/Vol] 0.07 10*3/uL Normal 0.00 - 0.40 [facility] Comment on above: Performed By: #### C BCDF #### [address] [address] Eosinophils/100 WBC (Bld) 0.9 % Normal 0.0 - 6.0 [facility] Comment on above: Performed By: #### C BCDF #### [address] [address] Erythrocyte distribution width (RBC) [Ratio] 14.4 % Normal 11.5 - 14.5 [facility] Comment on above: Performed By: #### C BCDF #### [address] [address] Hematocrit (Bld) [Volume fraction] 35.5 % Low 41.0 - 52.0 [facility] Comment on above: Performed By: #### C BCDF #### [address] [address] Hemoglobin (Bld) [Mass/Vol] 10.8 g/dL Low 13.5 - 17.5 [facility] Comment on above: Performed By: #### C BCDF #### [address] [address] Lymphocytes (Bld) [#/Vol] 0.42 10*3/uL Low 0.80 - 3.00 [facility] Comment on above: Performed By: #### C BCDF #### [address] [address] Lymphocytes/100 WBC (Bld) 5.6 % Normal 13.0 - 44.0 [facility] Comment on above: Performed By: #### C BCDF #### [address] [address] MCHC (RBC) [Mass/Vol] 30.4 g/dL Low 32.0 - 36.0 [facility] Comment on above: Performed By: #### C BCDF #### [address] [address] MCV (RBC) [Entitic vol] 89 fL Normal 80 - 100 [facility] Comment on above: Performed By: #### C BCDF #### [address] [address] Monocytes (Bld) [#/Vol] 0.07 10*3/uL Normal 0.05 - 0.80 [facility] Comment on above: Performed By: #### C BCDF #### [address] [address] Monocytes/100 WBC (Bld) 0.9 % Normal 2.0 - 10.0 [facility] Comment on above: Performed By: #### C BCDF #### [address] [place] [address] Neutrophils (Bld) [#/Vol] 6.82 10*3/uL High 1.60 - 5.50 [facility] Comment on above: Performed By: #### C BCDF #### [address] [address] Neutrophils/100 WBC (Bld) 91.8 % Normal 40.0 - 80.0 [facility] Comment on above: Performed By: #### C BCDF #### [address] [address] NUCLEATED RBC 0.0 /100 WBC Normal 0.0 - 0.0 [facility] Comment on above: Performed By: #### C BCDF #### [address] [address] Platelets (Bld) [#/Vol] 161 10*3/uL Normal 150 - 450 [facility] Comment on above: Performed By: #### C BCDF #### [address] [address] RBC 3.98 x10E12/L Low 4.50 - 5.90 [facility] Comment on above: Performed By: #### C BCDF #### [address] [address] WBC (Bld) [#/Vol] 7.4 10*3/uL Normal 4.4 - 11.3 [facility] Comment on above: Performed By: #### C BCDF #### [address] [address] Complete Blood Count + Diffe rentialon 07-13-2021 Basophils/100 WBC (Bld) 0.3 % 0.0 - 2.0 [facility] [employer] [address] [place] Work Phone: Erythrocyte distribution width (RBC) [Ratio] 14.4 % See Below [facility] [employer] [address] [place] Work Phone: Comment on above: Reference Range: 11. 5 - 14.5 Hematocrit (Bld) [Volume fraction] 35.5 % below low threshold See Below [facility] [address] [place] Work Phone: Comment on above: Reference Range: 41. 0 - 52.0 Hemoglobin (Bld) [Mass/Vol] 10.8 g/dL below low threshold See Below [facility] [address] [place] Work Phone: Comment on above: Reference Range: 13. 5 - 17.5 Lymphocytes/100 WBC (Bld) 5.6 % See Below [facility] [address] [place] Work Phone: Comment on above: Reference Range: 13. 0 - 44.0 MCHC (RBC) [Mass/Vol] 30.4 g/dL below low threshold See Below [facility] [address] [place] Work Phone: Comment on above: Reference Range: 32. 0 - 36.0 MCV (RBC) [Entitic vol] 89 fL 80 - 100 [facility] [address] [place] Work Phone: Monocytes/100 WBC (Bld) 0.9 % 2.0 - 10.0 [facility] [address] [place] Work Phone: Neutrophils/100 WBC (Bld) 91.8 % See Below [facility] [address] [place] Work Phone: Comment on above: Reference Range: 40. 0 - 80.0 Platelets (Bld) [#/Vol] 161 10*3/uL 150 - 450 [facility] [address] [place] Work Phone: RBC (Bld) [#/Vol] 3.98 {x10E12/L} below low threshold See Below [facility] [address] [place] Work Phone: Comment on above: Reference Range: 4.5 0 - 5.90 WBC (Bld) [#/Vol] 7.4 10*3/uL 4.4 - 11.3 [facility] [employer] [address] [place] Work Phone: Complete Blood Count [...] low threshold See Below [facility] [address] [place] Work Phone: Comment on above: Reference Range: 0.8 0 - 3.00 Complete Blood Count + Differential 6.82 {x10E9/L} above high threshold See Below [facility] [address] [place] Work Phone: Comment on above: Reference Range: 1.6 0 - 5.50 Complete Blood Count + Differential 0.9 % 0.0 - 6.0 [facility] [address] [place] Work Phone: Complete Blood Count + Differential 0.5 % 0.0 - 0.9 [facility] [employer] [place] Work Phone: Comment on above: Immature Granulocyte Count (IG) includes promyelocytes, myelocytes and metamyelocytes but does not include bands. Percent differential counts (%) should be interpreted in the context of the absolute cell counts (cells/L). Complete Blood Count + Differential 0.0 {/100_WBC} 0.0 - 0.0 [facility] [address] [place] Work Phone: Coronavirus 2019 RNA by PCR, Symptomaticon 07-03-2021 Date and time of symptom onset [id number] [facility] [address] [place] Work Phone: Coronavirus 2019 RNA by PCR, Symptomatic Not detected Normal See Below [facility] [address] [place] Work Phone: Comment on above: SOURCE: Nasal, Nasop haryngealReference Range: Not Detected.This test has received FDA Emergency Use Authorization (EUA) and has been verified by [facility] ([facility]). This test is only authorized for the duration of time that circumstances exist to justify the authorization of the emergency use of in vitro diagnostic tests for the detection of SARS-CoV-2 virus and/or diagnosis of COVID-19 infection under section 564(b)(1) of the Act, 21 U.S.C. 360bbb-3(b)(1), unless the authorization is terminated or revoked sooner. [facility] is certified under CLIA-88 as qualified to perform high complexity testing. Testing is performed in the [facility] located at [address] [place] [address].SARS-CoV-2/Flu/RSV Multiplex Test: Fact sheet for providers: https://www.fda.gov/media/087512/downloadFact sheet for patients: https://www.fda.gov/media/435463/download Laboratory - Chemistry and C hemistry - challengeon 07-03-2021 Glucose [Mass/Vol] 330 mg/dL above high threshold 74 - 99 [facility] [address] [place] Work Phone: Glucose [Mass/Vol] 277 mg/dL above high threshold 74 - 99 [facility] [address] [place] Work Phone: Anion gap [Moles/Vol] 15 mmol/L 10 - 20 [facility] [address] [place] Work Phone: Calcium [Mass/Vol] 9.3 mg/dL 8.6 - 10.6 [facility] [address] [place] Work Phone: Chloride [Moles/Vol] 101 mmol/L 98 - 107 [facility] [address] [place] Work Phone: CO2 [Moles/Vol] 26 mmol/L 21 - 32 [facility] [address] [place] Work Phone: Creatinine [Mass/Vol] 1.80 mg/dL above high threshold See Below [facility] [address] [place] Work Phone: Comment on above: Reference Range: 0.5 0 - 1.30 Glucose [Mass/Vol] 246 mg/dL above high threshold 74 - 99 [facility] [address] [place] Work Phone: Potassium [Moles/Vol] 3.9 mmol/L 3.5 - 5.3 [facility] [address] [place] Work Phone: [phone] Sodium [Moles/Vol] 138 mmol/L 136 - 145 [facility] [address] [place] Work Phone: [phone] Urea nitrogen [Mass/Vol] 35 mg/dL above high threshold 6 - 23 [facility] [address] [place] Work Phone: Laboratory - Hematology and Cell countson 07-03-2021 Erythrocyte distribution width (RBC) [Ratio] 13.7 % See Below [facility] [address] [place] Work Phone: Comment on above: Reference Range: 11. 5 - 14.5 Hematocrit (Bld) [Volume fraction] 35.1 % below low threshold See Below [facility] [address] [place] Work Phone: Comment on above: Reference Range: 41. 0 - 52.0 Hemoglobin (Bld) [Mass/Vol] 10.8 g/dL below low threshold See Below [facility] [address] [place] Work Phone: Comment on above: Reference Range: 13. 5 - 17.5 MCHC (RBC) [Mass/Vol] 30.8 g/dL below low threshold See Below [facility] [address] [place] Work Phone: Comment on above: Reference Range: 32. 0 - 36.0 MCV (RBC) [Entitic vol] 89 fL 80 - 100 [facility] [address] [place] Work Phone: Platelets (Bld) [#/Vol] 171 10*3/uL 150 - 450 [facility] [address] [place] Work Phone: RBC (Bld) [#/Vol] 3.94 {x10E12/L} below low threshold See Below [facility] [address] [place] Work Phone: Comment on above: Reference Range: 4.5 0 - 5.90 WBC (Bld) [#/Vol] 6.0 10*3/uL 4.4 - 11.3 [facility] [address] [place] Work Phone: No Panel Informationon 07-03 38 {mL/min/1.73m2} Abnormal >90 [facility] [address] [place] Work Phone: Comment on above: CALCULATIONS OF ERNST MATED GFR ARE PERFORMED USING THE 2020 CKD-EPI STUDY REFIT EQUATION WITHOUT THE RACE VARIABLE FOR THE IDMS-TRACEABLE CREATININE METHODS.https://jasn.asnjournals.org/content/early// ASN.5823784110 0.0 {/100_WBC} 0.0-0.0 [facility] [address] [place] Work Phone: Tacrolimuson 07-03-2021 Tacrolimus (Bld) [Mass/Vol] 5.5 ng/mL 2.0 - 15.0 [facility] [address] [place] Work Phone: Comment on above: NOTE: Result was obt ained using a chemiluminescent microparticle immunoassay (CMIA) on the Engineering Officer i system.Optimal therapeutic ranges for immuno-suppressant drugs [...] high threshold 74 - 99 [facility] [address] [place] Work Phone: [phone] Glucose [Mass/Vol] 257 mg/dL above high threshold 74 - 99 [facility] [address] [place] Work Phone: [phone] Glucose [Mass/Vol] 286 mg/dL above high threshold 74 - 99 [facility] [address] [place] Work Phone: [phone] Glucose [Mass/Vol] 269 mg/dL above high threshold 74 - 99 [facility] [address] [place] Work Phone: [phone] Anion gap [Moles/Vol] 15 mmol/L 10 - 20 [facility] [address] [place] Work Phone: [phone] Calcium [Mass/Vol] 9.1 mg/dL 8.6 - 10.6 [facility] [address] [place] Work Phone: [phone] Chloride [Moles/Vol] 102 mmol/L 98 - 107 [facility] [address] [place] Work Phone: [phone] CO2 [Moles/Vol] 27 mmol/L 21 - 32 [facility] [address] [place] Work Phone: [phone] Creatinine [Mass/Vol] 1.97 mg/dL above high [...] mmol/L 136 - 145 [facility] [address] [place] Work Phone: [phone] Urea nitrogen [Mass/Vol] 41 mg/dL above high threshold 6 - 23 [facility] [address] [place] Work Phone: [phone] Glucose [Mass/Vol] 201 mg/dL above high threshold 74 - 99 [facility] [address] [place] Work Phone: Laboratory - Hematology and Cell countson 07-02-2021 Erythrocyte distribution width (RBC) [Ratio] 14.1 % See Below [facility] [address] [place] Work Phone: [phone] Comment on above: Reference Range: 11. 5 - 14.5 Hematocrit (Bld) [Volume fraction] 33.6 % below low threshold See Below [facility] [address] [place] Work Phone: Comment on above: Reference Range: 41. 0 - 52.0 Hemoglobin (Bld) [Mass/Vol] 10.5 g/dL below low threshold See Below [facility] [address] [place] Work Phone: Comment on above: Reference Range: 13. 5 - 17.5 MCHC (RBC) [Mass/Vol] 31.3 g/dL below low threshold See Below [facility] [address] [place] Work Phone: Comment on above: Reference Range: 32. 0 - 36.0 MCV (RBC) [Entitic vol] 88 fL 80 - 100 [facility] [address] [place] Work Phone: Platelets (Bld) [#/Vol] 160 10*3/uL 150 - 450 [facility] [address] [place] Work Phone: RBC (Bld) [...] RACE VARIABLE FOR THE IDMS-TRACEABLE CREATININE METHODS.https://jasn.asnjournals.org/content/early// ASN.7215303217 0.0 {/100_WBC} 0.0-0.0 [facility] [address] [place] Work Phone: Tacrolimuson 07-02-2021 Tacrolimus (Bld) [Mass/Vol] 7.6 ng/mL 2.0 - 15.0 [facility] [address] [place] Work Phone: Comment on above: NOTE: Result was obt ained using a chemiluminescent microparticle immunoassay (CMIA) on the [employer] i system.Optimal therapeutic ranges for immuno-suppressant drugs [...] [Mass fraction] 8.4 % Abnormal [facility] [address] [place] Work Phone: Comment on above: Diagnosis of Diabete s-Adults Non-Diabetic: < or = 5.6% Increased risk for developing diabetes: 5.7-6.4% Diagnostic of diabetes: > or = 6.5%. Monitoring of Diabetes Age (y) Therapeutic Goal (%) Adults: >18 <7.0 Pediatrics: 13-18 <7.5 7-12 <8.0 0- 6 7.5-8.5 [employer]. Diabetes Care 33(S1), Mar 2009. Laboratory - Chemistry and C hemistry - challengeon 07-01-2021 Glucose [Mass/Vol] 188 mg/dL above high threshold 74 - 99 [facility] [address] [place] Work Phone: Glucose [Mass/Vol] 258 mg/dL above high threshold 74 - 99 [facility] [address] [place] Work Phone: Glucose [Mass/Vol] 321 mg/dL above high threshold 74 - 99 [facility] [address] [place] Work Phone: Anion gap [Moles/Vol] 16 mmol/L 10 - 20 [facility] [address] [place] Work Phone: Calcium [Mass/Vol] 8.8 mg/dL 8.6 - 10.6 [facility] [address] [place] Work Phone: Chloride [Moles/Vol] 100 mmol/L 98 - 107 [facility] [address] [place] Work Phone: CO2 [Moles/Vol] 29 mmol/L 21 - 32 [facility] [address] [place] Work Phone: Creatinine [Mass/Vol] 1.99 mg/dL above high threshold See Below [facility] [address] [place] Work Phone: Comment on above: Reference Range: 0.5 0 - 1.30 Glucose [Mass/Vol] 227 mg/dL above high threshold 74 - 99 [facility] [address] [place] Work Phone: Glucose [Mass/Vol] 243 mg/dL above high threshold 74 - 99 [facility] [address] [place] Work Phone: Potassium [Moles/Vol] 4.0 mmol/L 3.5 - 5.3 [facility] [address] [place] Work Phone: Sodium [Moles/Vol] 141 mmol/L 136 - 145 [facility] [address] [place] Work Phone: Urea nitrogen [Mass/Vol] 38 mg/dL above high threshold 6 - 23 [facility] [address] [place] Work Phone: Laboratory - Hematology and Cell countson 07-01-2021 Erythrocyte distribution width (RBC) [Ratio] 14.1 % See Below [facility] [address] [place] Work Phone: Comment on above: Reference Range: 11. 5 - 14.5 Hematocrit (Bld) [Volume fraction] 34.6 % below low threshold See Below [facility] [address] [place] Work Phone: Comment on [...] fL 80 - 100 [facility] [address] [place] Work Phone: Platelets (Bld) [#/Vol] 157 10*3/uL 150 - 450 [facility] [address] [place] Work Phone: RBC (Bld) [#/Vol] 3.83 {x10E12/L} below low threshold See Below [facility] [address] [place] Work Phone: Comment on above: Reference Range: 4.5 0 - 5.90 WBC (Bld) [#/Vol] 6.8 10*3/uL 4.4 - 11.3 [facility] [address] [place] Work Phone: No Panel Informationon 07-01 34 {mL/min/1.73m2} Abnormal >90 [facility] [address] [place] Work Phone: Comment on above: CALCULATIONS OF ERNST MATED GFR ARE PERFORMED USING THE 2020 CKD-EPI STUDY REFIT EQUATION WITHOUT THE RACE VARIABLE FOR THE IDMS-TRACEABLE CREATININE METHODS.https://jasn.asnjournals.org/content// ASN.0480156216 0.0 {/100_WBC} 0.0-0.0 [facility] [address] [place] Work Phone: Tacrolimuson 07-01-2021 Tacrolimus (Bld) [Mass/Vol] 9.3 ng/mL 2.0 - 15.0 [facility] [address] [place] Work Phone: Comment on above: NOTE: Result was obt ained using a chemiluminescent microparticle immunoassay (CMIA) on the Engineering Officer i system.Optimal therapeutic ranges for immuno-suppressant drugs [...] high threshold 74 - 99 [facility] [address] [place] Work Phone: [phone] Glucose [Mass/Vol] 289 mg/dL above high threshold 74 - 99 [facility] [address] [place] Work Phone: [phone] Glucose [Mass/Vol] 236 mg/dL above high threshold 74 - 99 [facility] [address] [place] Work Phone: [phone] Anion gap [Moles/Vol] 17 mmol/L 10 - 20 [facility] [address] [place] Work Phone: [phone] Calcium [Mass/Vol] 8.6 mg/dL 8.6 - 10.6 [facility] [address] [place] Work Phone: [phone] Chloride [Moles/Vol] 100 mmol/L 98 - 107 [facility] [address] [place] Work Phone: [phone] CO2 [Moles/Vol] 28 mmol/L 21 - 32 [facility] [address] [place] Work Phone: [phone] Creatinine [Mass/Vol] 2.26 mg/dL above high threshold See Below [facility] [address] [place] Work Phone: [phone] Comment on above: Reference Range: 0.5 0 - 1.30 Glucose [Mass/Vol] 205 mg/dL above high threshold 74 - 99 [facility] [address] [place] Work Phone: [phone] Potassium [Moles/Vol] 3.8 mmol/L 3.5 - 5.3 [facility] [address] [place] Work Phone: Sodium [Moles/Vol] 141 mmol/L 136 - 145 [facility] [address] [place] Work Phone: Urea nitrogen [Mass/Vol] 39 mg/dL above high threshold 6 - 23 [facility] [address] [place] Work Phone: Laboratory - Hematology and Cell countson 06-30-2021 Erythrocyte distribution width (RBC) [Ratio] 14.3 % See Below [facility] [address] [place] Work Phone: Comment on above: Reference Range: 11. 5 - 14.5 Hematocrit (Bld) [Volume fraction] 33.5 % below low threshold See Below [facility] [address] [place] Work Phone: Comment on above: Reference Range: 41. 0 - 52.0 Hemoglobin (Bld) [Mass/Vol] 10.5 g/dL below low threshold See Below [facility] [address] [place] Work Phone: Comment on above: Reference Range: 13. 5 - 17.5 MCHC (RBC) [Mass/Vol] 31.3 g/dL below low threshold See Below [facility] [address] [place] Work Phone: Comment on above: Reference Range: 32. 0 - 36.0 MCV (RBC) [Entitic vol] 91 fL 80 - 100 [facility] [address] [place] Work Phone: Platelets (Bld) [#/Vol] 141 10*3/uL below lo w threshold 150 - 450 [facility] [address] [place] Work Phone: RBC (Bld) [#/Vol] 3.70 {x10E12/L} below low threshold See Below [facility] [address] [place] Work Phone: Comment on [...] RACE VARIABLE FOR THE IDMS-TRACEABLE CREATININE METHODS.https://jasn.asnjournals.org/content/early/ ASN.5288385265 0.0 {/100_WBC} 0.0-0.0 [facility] [address] [place] Work Phone: Tacrolimuson 06-30-2021 Tacrolimus (Bld) [Mass/Vol] 7.7 ng/mL 2.0 - 15.0 [facility] [address] [place] Work Phone: Comment on above: NOTE: Result was obt ained using a chemiluminescent microparticle immunoassay (CMIA) on the [employer] i system.Optimal therapeutic ranges for immuno-suppressant drugs depend upon an individualpatient's current clinical state, type oforgan transplant, time post-transplant,co-administration of other immunosuppressants,and other clinical factors. The results ofthis test should be correlated with additionalclinical and laboratory data before changesin treatment regimens are made. [facility] Venous Duplex Ultra sound for DVTon 06-30-2021 [facility] Venous Duplex Ultrasound for DVT [facility] [address] [place] Work Phone: Laboratory - [...] threshold 74 - 99 [facility] [address] [place] Work Phone: [phone] Anion gap [Moles/Vol] 16 mmol/L 10 - 20 [facility] [address] [place] Work Phone: [phone] Calcium [Mass/Vol] 8.7 mg/dL 8.6 - 10.6 [facility] [address] [place] Work Phone: [phone] Chloride [Moles/Vol] 104 mmol/L 98 - 107 [facility] [address] [place] Work Phone: [phone] CO2 [Moles/Vol] 28 mmol/L 21 - 32 [facility] [address] [place] Work Phone: [phone] Creatinine [Mass/Vol] 1.97 mg/dL above high threshold See Below [facility] [address] [place] Work Phone: [phone] Comment on above: Reference Range: 0.5 0 - 1.30 Glucose [Mass/Vol] 185 mg/dL above high threshold 74 - 99 [facility] [address] [place] Work Phone: [phone] Potassium [Moles/Vol] 3.9 mmol/L 3.5 - 5.3 [facility] [address] [place] Work Phone: [phone] Sodium [Moles/Vol] 144 mmol/L 136 - 145 [facility] [address] [place] Work Phone: [phone] Urea nitrogen [Mass/Vol] 35 mg/dL above high threshold 6 - 23 [facility] [address] [place] Work Phone: [phone] Glucose [Mass/Vol] 186 mg/dL above high threshold 74 - 99 [facility] [address] [place] Work Phone: [phone] Laboratory - Hematology and Cell countson 06-29-2021 Erythrocyte distribution width (RBC) [Ratio] 14.3 % See Below [facility] [address] [place] Work Phone: Comment on above: Reference Range: 11. 5 - 14.5 Hematocrit (Bld) [Volume fraction] 35.8 % below low threshold See Below [facility] [address] [place] Work Phone: Comment on [...] fL 80 - 100 [facility] [address] [place] Work Phone: Platelets (Bld) [#/Vol] 142 10*3/uL below lo w threshold 150 - 450 [facility] [address] [place] Work Phone: RBC (Bld) [#/Vol] 3.96 {x10E12/L} below low threshold See Below [facility] [address] [place] Work Phone: Comment on above: Reference Range: 4.5 0 - 5.90 WBC (Bld) [#/Vol] 7.0 10*3/uL 4.4 - 11.3 [facility] [address] [place] Work Phone: Magnesium, Serumon [...] RACE VARIABLE FOR THE IDMS-TRACEABLE CREATININE METHODS.https://jasn.asnjournals.org/content/early// ASN.6035113490 0.0 {/100_WBC} 0.0-0.0 [facility] [address] [place] Work Phone: Tacrolimuson 06-29-2021 Tacrolimus (Bld) [Mass/Vol] 8.4 ng/mL 2.0 - 15.0 [facility] [address] [place] Work Phone: Comment on above: NOTE: Result was obt ained using a chemiluminescent microparticle immunoassay (CMIA) on the [employer] i system.Optimal therapeutic ranges for immuno-suppressant drugs [...] high threshold 74 - 99 [facility] [address] [place] Work Phone: Anion gap [Moles/Vol] 14 mmol/L 10 - 20 [facility] [address] [place] Work Phone: Calcium [Mass/Vol] 8.5 mg/dL below low threshold 8.6 - 10.6 [facility] [address] [place] Work Phone: Chloride [Moles/Vol] 105 mmol/L 98 - 107 [facility] [address] [place] Work Phone: [phone] CO2 [Moles/Vol] 29 mmol/L 21 - 32 [facility] [address] [place] Work Phone: [phone] Creatinine [Mass/Vol] 1.96 mg/dL above high threshold See Below [facility] [address] [place] Work Phone: Comment on above: Reference Range: 0.5 0 - 1.30 Glucose [Mass/Vol] 159 mg/dL above high threshold 74 - 99 [facility] [address] [place] Work Phone: [phone] Potassium [Moles/Vol] 3.8 mmol/L 3.5 - 5.3 [facility] [address] [place] Work Phone: [phone] Sodium [Moles/Vol] 144 mmol/L 136 - 145 [facility] [address] [place] Work Phone: Urea nitrogen [Mass/Vol] 36 mg/dL above high threshold 6 - 23 [facility] [address] [place] Work Phone: Glucose [Mass/Vol] 159 mg/dL above high threshold 74 - 99 [facility] [address] [place] Work Phone: Laboratory - Hematology and Cell countson 06-28-2021 Erythrocyte distribution width (RBC) [Ratio] 14.3 % See Below [facility] [address] [place] Work Phone: Comment on above: Reference Range: 11. 5 - 14.5 Hematocrit (Bld) [Volume fraction] 33.8 % below low threshold See Below [facility] [address] [place] Work Phone: Comment on above: Reference Range: 41. 0 - 52.0 Hemoglobin (Bld) [Mass/Vol] 10.4 g/dL below low threshold See Below [facility] [address] [place] Work Phone: Comment on above: Reference Range: 13. 5 - 17.5 MCHC (RBC) [Mass/Vol] 30.8 g/dL below low threshold See Below [facility] [address] [place] Work Phone: Comment on above: Reference Range: 32. 0 - 36.0 MCV (RBC) [Entitic vol] 90 fL 80 - 100 [facility] [address] [place] Work Phone: Platelets (Bld) [#/Vol] 133 10*3/uL below lo w threshold 150 - 450 [facility] [address] [place] Work Phone: RBC (Bld) [#/Vol] 3.75 {x10E12/L} below low threshold See Below [facility] [address] [place] Work Phone: Comment on above: Reference Range: 4.5 0 - 5.90 WBC (Bld) [#/Vol] 5.7 10*3/uL 4.4 - 11.3 [facility] [address] [place] Work Phone: Lactate, Levelon 06-28-2021 Lactate [Moles/Vol] 0.6 mmol/L 0.4 - 2.0 [facility] [address] [place] Work Phone: Comment on above: [...] RACE VARIABLE FOR THE IDMS-TRACEABLE CREATININE METHODS.https://jasn.asnjournals.org/content/early/ ASN.9943116388 0.0 {/100_WBC} 0.0-0.0 [facility] [address] [place] Work Phone: Tacrolimuson 06-28-2021 Tacrolimus (Bld) [Mass/Vol] 10.4 ng/mL 2.0 - 15.0 [facility] [address] [place] Work Phone: Comment on above: NOTE: Result was obt ained using a chemiluminescent microparticle immunoassay (CMIA) on the [employer] i system.Optimal therapeutic ranges for immuno-suppressant drugs depend upon an individualpatient's current clinical state, type oforgan transplant, time post-transplant,co-administration of other immunosuppressants,and other clinical factors. The results ofthis test should be correlated with additionalclinical and laboratory data before changesin treatment regimens are made. Complete Blood Count + Diffe rentialon 06-27-2021 Basophils/100 WBC (Bld) 0.5 % 0.0 - 2.0 [facility] [address] [place] Work Phone: Erythrocyte distribution width (RBC) [Ratio] 14.3 % See Below [facility] [address] [place] Work Phone: Comment on above: Reference Range: 11. 5 - 14.5 Hematocrit (Bld) [Volume fraction] 33.6 % below low threshold See Below [facility] [address] [place] Work Phone: Comment on above: Reference Range: 41. 0 - 52.0 Hemoglobin (Bld) [Mass/Vol] 10.3 g/dL below low threshold See Below [facility] [address] [place] Work Phone: Comment on above: Reference Range: 13. 5 - 17.5 Lymphocytes/100 WBC (Bld) 13.1 % See Below [facility] [address] [place] Work Phone: Comment on above: Reference Range: 13. 0 - 44.0 MCHC (RBC) [Mass/Vol] 30.7 g/dL below low threshold See Below [facility] [address] [place] Work Phone: Comment on above: Reference Range: 32. 0 - 36.0 MCV (RBC) [Entitic vol] 92 fL 80 - 100 [facility] [address] [place] Work Phone: Monocytes/100 WBC (Bld) 9.0 % 2.0 - 10.0 [facility] [address] [place] Work Phone: Neutrophils/100 WBC (Bld) 72.5 % See Below [facility] [address] [place] Work Phone: Comment on above: Reference Range: 40. 0 - 80.0 Platelets (Bld) [#/Vol] 137 10*3/uL below lo w threshold 150 - 450 [facility] [address] [place] Work Phone: RBC (Bld) [#/Vol] 3.67 {x10E12/L} below low threshold See Below [facility] [address] [place] Work Phone: Comment on above: Reference Range: 4.5 0 - 5.90 WBC (Bld) [#/Vol] 6.4 10*3/uL 4.4 - 11.3 [facility] [address] [place] Work Phone: Complete Blood Count + Differential 0.03 {x10E9/L} See Below [facility] [address] [place] Work Phone: Comment on above: Reference Range: 0.0 0 - 0.10 Complete Blood Count + Differential 0.28 {x10E9/L} See Below [facility] [address] [place] Work Phone: Comment on above: Reference Range: 0.0 0 - 0.40 Complete Blood Count + Differential 0.57 {x10E9/L} See Below [facility] [address] [place] Work Phone: Comment on above: Reference Range: 0.0 5 - 0.80 Complete Blood Count + Differential 0.83 {x10E9/L} See Below [facility] [address] [place] Work Phone: Comment on above: Reference Range: 0.8 0 - 3.00 Complete Blood Count + Differential 4.61 {x10E9/L} See Below [facility] [address] [place] Work Phone: Comment on above: Reference Range: 1.6 0 - 5.50 Complete Blood Count + Differential 4.4 % 0.0 - 6.0 [facility] [address] [place] Work Phone: Complete Blood Count + Differential 0.5 % 0.0 - 0.9 [facility] [address] [place] Work Phone: Comment on above: Immature Granulocyte Count (IG) includes promyelocytes, myelocytes and metamyelocytes but does not include bands. Percent differential counts (%) should be interpreted in the context of the absolute cell counts (cells/L). Complete Blood Count + Differential 0.0 {/100_WBC} 0.0-0.0 [facility] [address] [place] Work Phone: Glucose Glucometer (dC) [M ass/Vol]Ordered By: Yoshi Wu on 06-27-2021 Glucose [Mass/Vol] 263 mg/dL [facility] Comment on above: Random Glucose Refer ence [...] 57 U/L 33 - 136 [facility] [address] [place] Work Phone: ALT With [...] low threshold 8.6 - 10.6 [facility] [address] [place] Work Phone: Chloride [Moles/Vol] 102 mmol/L 98 - 107 [facility] [address] [place] Work Phone: CO2 [Moles/Vol] 26 mmol/L 21 - 32 [facility] [address] [place] Work Phone: Creatinine [Mass/Vol] 1.85 mg/dL above high threshold See Below [facility] [address] [place] Work Phone: Comment on above: Reference Range: 0.5 0 - 1.30 Glucose [Mass/Vol] 177 mg/dL above high threshold 74 - 99 [facility] [address] [place] Work Phone: Potassium [Moles/Vol] 3.7 mmol/L 3.5 - 5.3 [facility] [address] [place] Work Phone: Protein [Mass/Vol] 5.7 g/dL below low threshold 6.4 - 8.2 [facility] [address] [place] Work Phone: Sodium [Moles/Vol] 142 mmol/L 136 - 145 [facility] [address] [place] Work Phone: Urea nitrogen [Mass/Vol] 37 mg/dL above high threshold 6 - 23 [facility] [address] [place] Work Phone: Glucose [Mass/Vol] 178 mg/dL above high threshold 74 - 99 [facility] [address] [place] Work Phone: Glucose [Mass/Vol] 213 mg/dL above high threshold 74 - 99 [facility] [address] [place] Work Phone: No Panel Informationon 06-27 37 {mL/min/1.73m2} Abnormal >90 [facility] [address] [place] Work Phone: Comment on above: CALCULATIONS OF ERNST MATED GFR ARE PERFORMED USING THE 2020 CKD-EPI STUDY REFIT EQUATION WITHOUT THE RACE VARIABLE FOR THE IDMS-TRACEABLE CREATININE METHODS.https://jasn.asnjournals.org/content// ASN.1255630263 No Panel InformationOrdered By: Yoshi Wu on 06-27-2021 Bedside Glucose Comment Glu2: cleaned meter [facility] Automated erythrocytes count in urine sediment (number/area)Ordered By: Audra Quinteros on 06-26-2021 RBC Auto (Urine sed) [#/Area] 0-1 [HPF] [facility] Automated leukocytes count i n urine sediment (number/area)Ordered By: Audra Quinteros on 06-26-2021 WBC Auto (Urine sed) [#/Area] 0-1 [HPF] [facility] Bilirubin Test strip Ql (U)O rdered By: Audra Quinteros on 06-26-2021 Bilirubin Ql (U) Negative Negative [facility] COVID-19 Positive/NegativeOr dered By: Omid Myrick on 06-26-2021 SARS-CoV-2 (COVID-19) N gene JOYCE+probe Ql (Resp) Negative Negative [facility] Comment on above: Testing for SARS-CoV -2 by RT-PCRThis test was developed and its performance characteristics determined by [employer] ([email or web address]) and validated at the [facility] [...] on 06-26-2021 Ketones (U) [Mass/Vol] Negative Negative [facility] Laboratory - Microbiology an d [...] 06-26-2021 Protein (U) [Mass/Vol] 300 mg/dL Negative [facility] Serum or plasma calcium abhijit urement (mass/volume)Ordered By: Audra Quinteros on 06-26-2021 Calcium [Mass/Vol] 8.9 mg/dL 8.2-10.2 [facility] Serum or plasma chloride marylin surement (moles/volume)Ordered By: Audra Quinteros on 06-26-2021 Chloride [Moles/Vol] 105 mmol/L 95-114 [facility] Serum or plasma glucose abhijit urement (mass/volume)Ordered By: Audra Quinteros on 06-26-2021 Glucose [Mass/Vol] 194 mg/dL 70-100 [facility] Comment on above: ADA recommended refe rence rangeRandom Glucose Reference Range is dependent on time and content of last meal. Glucose of more than 200 mg/dL in a nonstressed, ambulatory subject supports the diagnosis of Diabetes Mellitus. Serum or plasma potassium me asurement (moles/volume)Ordered By: Omid Myrick on 06-26-2021 Potassium [Moles/Vol] 4.0 mmol/L 3.5-5.[address] [facility] Serum or plasma sodium measu rement (moles/volume)Ordered By: Audra Quinteros on 06-26-2021 Sodium [Moles/Vol] 140 mmol/L 136-146 [facility] Serum or plasma total carbon dioxide measurement (moles/volume)Ordered By: Audra Quinteros on 06-26-2021 CO2 [Moles/Vol] 23.8 mmol/L 22.0-30.0 [facility] Serum or plasma urea nitroge n [...] Auto Ql (U) None seen None Seen [facility] Urine clarity by refractomet ry automatedOrdered [...] on 06-26-2021 Sodium (U) [Moles/Vol] 94 mmol/L [facility] Comment on above: No reference [...] poor plasma by coagulation aOrdered By: Andrew Henrández on 06-25-2021 aPTT Coag (PPP) [Time] 33.4 s 25.1-36.5 [facility] Albumin [Mass/volume] in Ser um or PlasmaOrdered By: Andrew Hernández on 06-25-2021 Albumin [Mass/Vol] 3.4 g/dL 3.2-5.5 [facility] Basophils Auto (Bld) [#/Vol] Ordered By: Andrew Hernández on 06-25-2021 Basophils (Bld) [#/Vol] 0.0 10*3/uL 0.0-0.2 [facility] Basophils/100 WBC Auto (Bld) Ordered By: Andrew Hernández on 06-25-2021 Basophils/100 WBC (Bld) 0.6 % [facility] Blood hemoglobin measurement (mass/volume)Ordered By: Andrew Hernández on 06-25-2021 Hemoglobin (Bld) [Mass/Vol] 11.8 g/dL 13.0-17.0 [facility] Blood leukocytes automated c ount (number/volume)Ordered By: Andrew Hernández on 06-25-2021 WBC (Bld) [#/Vol] 7.5 10*3/uL 4.5-11.0 [facility] COVID-19 SOFIAOrdered By: Prasanna Hernández on 06-25-2021 SARS-CoV+SARS-CoV-2 (COVID-19) Ag IA.rapid Ql (Resp) Negative Negative [facility] Comment on above: This is a duplicate Jessi SARS Antigen (GABI) result to be used for statistical tracking purpose only. Creatinine and Glomerular fi ltration rate.predicted panel (S/P/Bld)Ordered By: Andrew Hernández on 06-25-2021 Creatinine [Mass/Vol] 2.25 mg/dL 0.64-1.[address] [facility] Eosinophils Auto (Bld) [#/Vo l]Ordered [...] on 06-25-2021 Globulin (S) [Mass/Vol] 3.2 g/dL [facility] Hematocrit Auto (Bld) [Volum e fraction]Ordered By: Andrew Hernández on 06-25-2021 Hematocrit (Bld) [Volume fraction] 36.2 % 38.8-50.0 [facility] Laboratory - Chemistry and C hemistry - challengeOrdered By: Andrew Hernández on 06-25-2021 Natriuretic peptide B (Bld) [Mass/Vol] 165.0 pg/mL 5-100 [facility] Laboratory - CoagulationOrde red By: Andrew Hernández on 06-25-2021 PT Coag (PPP) [Time] 11.9 s 9.0-12.9 [facility] Laboratory - Hematology and Cell countsOrdered By: nAdrew Hernández on 06-25-2021 Nucleated RBC/100 WBC (Bld) [...] [Mass/Vol] 32.7 g/dL 32.5-35.[address] [facility] MCV Auto (RBC) [Entitic vol] Ordered By: Andrew Hernández on 06-25-2021 MCV (RBC) [Entitic vol] 86.0 fL 83.5-101 [facility] Monocytes Auto (Bld) [#/Vol] Ordered By: Andrew Hernández on 06-25-2021 Monocytes (Bld) [#/Vol] 0.5 10*3/uL 0.0-0.8 [facility] Monocytes/100 WBC Auto (Bld) Ordered By: Andrew Hernández on 06-25-2021 Monocytes/100 WBC (Bld) 7.3 % [facility] Neutrophils Auto (Bld) [#/Vo l]Ordered By: Andrew Hernández on 06-25-2021 Neutrophils (Bld) [#/Vol] 5.6 10*3/uL 1.8-7.7 [facility] Neutrophils/100 WBC Auto (Bl d)Ordered By: Andrew Hernández on 06-25-2021 Neutrophils/100 WBC (Bld) 74.6 % [facility] No Panel InformationOrdered By: Andrew Hernández on 06-25-2021 SARS Antigen (LFIA) [facility] Estimated GFR () 34 mL/Min [...] East Comment on above: Delta: 119 on 0453 Protein [Mass/volume] in Ser um or PlasmaOrdered By: Andrew Hernández on 06-25-2021 Protein [Mass/Vol] 6.6 g/dL 6.1-7.9 [facility] RBC Auto (Bld) [#/Vol]Ordere d By: Andrew Hernández on 06-25-2021 RBC (Bld) [#/Vol] 4.21 10*6/uL 3.90-5.60 [facility] Serum or plasma C reactive [...] on 06-25-2021 Calcium [Mass/Vol] 9.2 mg/dL 8.2-10.2 [facility] Serum or plasma chloride marylin surement (moles/volume)Ordered By: Andrew Hernández on 06-25-2021 Chloride [Moles/Vol] 106 mmol/L 95-114 [facility] Serum or plasma glucose abhijit urement (mass/volume)Ordered By: Andrew Hernández on 06-25-2021 Glucose [Mass/Vol] 177 mg/dL 70-100 [facility] Comment on above: ADA recommended refe rence rangeRandom Glucose Reference Range is dependent on time and content of last meal. Glucose of more than 200 mg/dL in a nonstressed, ambulatory subject supports the diagnosis of Diabetes Mellitus. Serum or plasma potassium me asurement (moles/volume)Ordered By: Andrew Hernández on 06-25-2021 Potassium [Moles/Vol] 4.2 mmol/L 3.5-5.[address] [facility] Serum or plasma sodium measu rement (moles/volume)Ordered By: Andrew Hernández on 06-25-2021 Sodium [Moles/Vol] 142 mmol/L 136-146 [facility] Serum or plasma total biliru bin measurement (mass/volume)Ordered By: Andrew Hernández on 06-25-2021 Bilirubin [Mass/Vol] 0.4 mg/dL 0.3-1.2 [facility] Serum or plasma total carbon dioxide measurement (moles/volume)Ordered By: Andrew Hernández on 06-25-2021 CO2 [Moles/Vol] 24.1 mmol/L 22.0-30.0 [facility] Serum or plasma urea nitroge n [...] on 06-24-2021 Albumin [Mass/Vol] 2.9 g/dL 3.2-5.5 [facility] Basophils Auto (Bld) [#/Vol] Ordered By: Julee Davies on 06-24-2021 Basophils (Bld) [#/Vol] 0.0 10*3/uL 0.0-0.2 [facility] Basophils/100 WBC Auto (Bld) Ordered By: Julee Davies on 06-24-2021 Basophils/100 WBC (Bld) 0.6 % [facility] Blood hemoglobin measurement (mass/volume)Ordered By: Julee Davies on 06-24-2021 Hemoglobin (Bld) [Mass/Vol] 10.8 g/dL 13.0-17.0 [facility] Blood leukocytes automated c ount (number/volume)Ordered By: Julee Davies on 06-24-2021 WBC (Bld) [#/Vol] 6.6 10*3/uL 4.5-11.0 [facility] Creatinine and Glomerular fi ltration rate.predicted panel (S/P/Bld)Ordered By: Julee Davies on 06-24-2021 Creatinine [Mass/Vol] 2.17 mg/dL 0.64-1.[address] [facility] Eosinophils Auto (Bld) [#/Vo l]Ordered [...] 06-24-2021 Globulin (S) [Mass/Vol] 2.4 g/dL [facility] Hematocrit Auto (Bld) [Volum e fraction]Ordered By: Julee Davies on 06-24-2021 Hematocrit (Bld) [Volume fraction] 33.0 % 38.8-50.0 [facility] Laboratory - Chemistry and C hemistry - challengeOrdered By: Julee Davies on 06-24-2021 Magnesium [Mass/Vol] 1.9 mg/dL 1.6-2.6 [facility] Natriuretic peptide B (Bld) [Mass/Vol] 224.0 [...] [Mass/Vol] 32.7 g/dL 32.5-35.[address] [facility] MCV Auto (RBC) [Entitic vol] Ordered By: Julee Davies on 06-24-2021 MCV (RBC) [Entitic vol] 84.6 fL 83.5-101 [facility] Monocytes Auto (Bld) [#/Vol] Ordered By: Julee Daives on 06-24-2021 Monocytes (Bld) [#/Vol] 0.5 10*3/uL 0.0-0.8 [facility] Monocytes/100 WBC Auto (Bld) Ordered By: Julee Davies on 06-24-2021 Monocytes/100 WBC (Bld) 7.4 % [facility] Neutrophils Auto (Bld) [#/Vo l]Ordered By: [...] on 06-24-2021 Protein [Mass/Vol] 5.3 g/dL 6.1-7.9 [facility] RBC Auto (Bld) [#/Vol]Ordere d By: Julee Davies on 06-24-2021 RBC (Bld) [#/Vol] 3.90 10*6/uL 3.90-5.60 [facility] Serum or plasma alanine lopez [...] on 06-24-2021 Calcium [Mass/Vol] 8.9 mg/dL 8.2-10.2 [facility] Serum or plasma chloride marylin surement (moles/volume)Ordered By: Julee Davies on 06-24-2021 Chloride [Moles/Vol] 109 mmol/L 95-114 [facility] Serum or plasma glucose abhijit urement (mass/volume)Ordered By: Julee Davies on 06-24-2021 Glucose [Mass/Vol] 160 mg/dL 70-100 [facility] Comment on above: ADA recommended refe rence rangeRandom Glucose Reference Range is dependent on time and content of last meal. Glucose of more than 200 mg/dL in a nonstressed, ambulatory subject supports the diagnosis of Diabetes Mellitus. Serum or plasma potassium me asurement (moles/volume)Ordered By: Julee Davies on 06-24-2021 Potassium [Moles/Vol] 4.1 mmol/L 3.5-5.[address] [facility] Serum or plasma sodium measu rement (moles/volume)Ordered By: Julee Davies on 06-24-2021 Sodium [Moles/Vol] 144 mmol/L 136-146 [facility] Serum or plasma total biliru bin measurement (mass/volume)Ordered By: Julee Davies on 06-24-2021 Bilirubin [Mass/Vol] 0.5 mg/dL 0.3-1.2 [facility] Serum or plasma total carbon dioxide measurement (moles/volume)Ordered By: Julee Davies on 06-24-2021 CO2 [Moles/Vol] 25.7 mmol/L 22.0-30.0 [facility] Serum or plasma urea nitroge n measurement (mass/volume)Ordered By: Julee Davies on 06-24-2021 Urea nitrogen [Mass/Vol] 43 mg/dL 9-23 [facility] Tacrolimus [Mass/volume] in BloodOrdered By: Julee Davies on 06-24-2021 Tacrolimus (Bld) [Mass/Vol] 8.1 ng/mL [facility] Comment on above: This test was vane christine and its performance characteristicsdetermined by [employer]. It has not been cleared orapproved by the Food and Drug Administration. Trough (immediately following transplant) 15.0 Trough (steady state, 2 weeks or more after transplant): 3.0 - 8.0 Performed by LC-MS/MS technology.Performed at: [address] [id number] Director: Mynor Nixon MD, Phone: [phone] Albumin [Mass/volume] in Ser um or PlasmaOrdered By: Julee Davies on 05-27-2021 Albumin [Mass/Vol] 3.1 g/dL 3.2-5.5 [facility] Basophils Auto (Bld) [#/Vol] Ordered By: Julee Davies on 05-27-2021 Basophils (Bld) [#/Vol] 0.0 10*3/uL 0.0-0.2 [facility] Basophils/100 WBC Auto (Bld) Ordered By: Julee Davies on 05-27-2021 Basophils/100 WBC (Bld) 0.7 % [facility] Blood hemoglobin measurement (mass/volume)Ordered By: Julee Davies on 05-27-2021 Hemoglobin (Bld) [Mass/Vol] 11.4 g/dL 13.0-17.0 [facility] Blood leukocytes automated c ount (number/volume)Ordered By: Julee Davies on 05-27-2021 WBC (Bld) [#/Vol] 6.1 10*3/uL 4.5-11.0 [facility] Cholesterol [Mass/volume] in Serum or PlasmaOrdered By: Julee Davies on 05-27-2021 Cholesterol [Mass/Vol] 129 mg/dL 140-200 [facility] Comment on above: Chol less [...] [Mass/Vol] 1.86 mg/dL 0.64-1.[address] [facility] Eosinophils Auto (Bld) [#/Vo l]Ordered [...] 05-27-2021 Globulin (S) [Mass/Vol] 2.9 g/dL [facility] Glucose mean value [Mass/vol ume] in [...] [Mass/Vol] 33.5 g/dL 32.5-35.[address] [facility] MCV Auto (RBC) [Entitic vol] Ordered By: Julee Davies on 05-27-2021 MCV (RBC) [Entitic vol] 84.5 fL 83.5-101 [facility] Monocytes Auto (Bld) [#/Vol] Ordered By: Julee Davies on 05-27-2021 Monocytes (Bld) [#/Vol] 0.5 10*3/uL 0.0-0.8 [facility] Monocytes/100 WBC Auto (Bld) Ordered By: Julee Davies on 05-27-2021 Monocytes/100 WBC (Bld) 7.9 % [facility] Neutrophils Auto (Bld) [#/Vo l]Ordered By: [facility] Platelet Estimate Decreased Normal [facility] Platelet Morphology Comment Normal [facility] [...] on 05-27-2021 Protein [Mass/Vol] 6.0 g/dL 6.1-7.9 [facility] RBC Auto (Bld) [#/Vol]Ordere d By: Julee Davies on 05-27-2021 RBC (Bld) [#/Vol] 4.03 10*6/uL 3.90-5.60 [facility] RBC morphologyOrdered By: Maurice Davies [...] on 05-27-2021 Calcium [Mass/Vol] 9.0 mg/dL 8.2-10.2 [facility] Serum or plasma chloride marylin surement (moles/volume)Ordered By: Julee Davies on 05-27-2021 Chloride [Moles/Vol] 104 mmol/L 95-114 [facility] Serum or plasma glucose abhijit urement (mass/volume)Ordered By: Julee Davies on 05-27-2021 Glucose [Mass/Vol] 183 mg/dL 70-100 [facility] Comment on above: ADA recommended refe rence [...] [Moles/Vol] 4.1 mmol/L 3.5-5.[address] [facility] Serum or plasma sodium measu rement (moles/volume)Ordered By: Julee Davies on 05-27-2021 Sodium [Moles/Vol] 140 mmol/L 136-146 [facility] Serum or plasma total biliru bin measurement (mass/volume)Ordered By: Julee Davies on 05-27-2021 Bilirubin [Mass/Vol] 0.4 mg/dL 0.3-1.2 [facility] Serum or plasma total carbon dioxide measurement (moles/volume)Ordered By: Julee Davies on 05-27-2021 CO2 [Moles/Vol] 26.1 mmol/L 22.0-30.0 [facility] Serum or plasma total choles terol/high [...] 05-27-2021 Triglyceride [Mass/Vol] 136 mg/dL 35-149 [facility] Comment on above: TRIG ATP III [...] Asymptomtic Not detected Normal See Below [facility] [facility] DO Work Phone: Comment on above: SOURCE: Nasal, Nasop haryngealReference Range: Not Detected.This test has received FDA Emergency Use Authorization (EUA) and has been verified by [facility] ([facility]). This test is only authorized for the duration of time that circumstances exist to justify the authorization of the emergency use of in vitro diagnostic tests for the detection of SARS-CoV-2 virus and/or diagnosis of COVID-19 infection under section 564(b)(1) of the Act, 21 U.S.C. 360bbb-3(b)(1), unless the authorization is terminated or revoked sooner. [facility] is certified under CLIA-88 as qualified to perform high complexity testing. Testing is performed in the [facility] located at [address] [place] [address].SARS-CoV-2/Flu/RSV Multiplex Test: Fact sheet for providers: https://www.fda.gov/media/729321/downloadFact sheet for patients: https://www.fda.gov/media/861072/download Coronavirus 2019 RNA by PCR, Screening Asymptomtic Canceled [facility] [facility] DO Work Phone: Comment on above: SOURCE: Nasal, Nasop haryngeal.This test has received FDA Emergency Use Authorization (EUA) and has been verified by [facility] ([facility]). This test is only authorized for the duration of time that circumstances exist to justify the authorization of the emergency use of in vitro diagnostic tests for the detection of SARS-CoV-2 virus and/or diagnosis of COVID-19 infection under section 564(b)(1) of the Act, 21 U.S.C. 360bbb-3(b)(1), unless the authorization is terminated or revoked sooner. [facility] is certified under CLIA-88 as qualified to perform high complexity testing. Testing is performed in the [facility] located at [address] [place] [address].SARS-CoV-2/Flu/RSV Multiplex Test: Fact sheet for providers: https://www.fda.gov/media/946017/downloadFact sheet for patients: https://www.fda.gov/media/435824/download Laboratory - Chemistry and C hemistry - challengeon 12-24-2020 Glucose [Mass/Vol] 203 mg/dL above high threshold 74 - 99 [facility] [facility] DO Work Phone: Laboratory - Hematology and Cell countson 12-24-2020 Erythrocyte distribution width (RBC) [Ratio] 12.7 % See Below [facility] [facility] DO Work Phone: Comment on above: Reference Range: 11. 5 - 14.5 Hematocrit (Bld) [Volume fraction] 35.7 % below low threshold See Below [facility] DO Work Phone: Comment on above: Reference Range: 41. 0 - 52.0 Hemoglobin (Bld) [Mass/Vol] 11.7 g/dL below low threshold See Below [facility] [facility] DO Work Phone: Comment on above: Reference Range: 13. 5 - 17.5 MCHC (RBC) [Mass/Vol] 32.8 g/dL See Below [facility] [facility] DO Work Phone: Comment on above: Reference Range: 32. 0 - 36.0 MCV (RBC) [Entitic vol] 91 fL 80 - 100 [facility] [facility] DO Work Phone: Platelets (Bld) [#/Vol] 105 10*3/uL below lo w threshold 150 - 450 [facility] [facility] DO Work Phone: RBC (Bld) [#/Vol] 3.92 {x10E12/L} below low threshold See Below [facility] [facility] DO Work Phone: Comment on above: Reference Range: 4.5 0 - 5.90 WBC (Bld) [#/Vol] 5.1 10*3/uL 4.4 - 11.3 [facility] [facility] DO Work Phone: No Panel Informationon 12-24 Please click on the link to view the study images Normal [facility] [facility] DO Work Phone: 0.0 {/100_WBC} 0.0-0.0 [facility] DO Work Phone: Renal Function Panelon 12-24 Albumin BCP dye [Mass/Vol] 3.6 g/dL 3.4 - 5.0 [facility] [facility] DO Work Phone: Anion gap [Moles/Vol] 15 mmol/L 10 - 20 [facility] [facility] DO Work Phone: Calcium [Mass/Vol] 9.0 mg/dL 8.6 - 10.6 [facility] [facility] DO Work Phone: [phone] Chloride [Moles/Vol] 109 mmol/L above high threshold 98 - 107 [facility] [facility] DO Work Phone: CO2 [Moles/Vol] 24 mmol/L 21 - 32 [facility] [facility] DO Work Phone: Creatinine [Mass/Vol] 1.77 mg/dL above high threshold See Below [facility] [facility] DO Work Phone: Comment on [...] 4.5 mmol/L 3.5 - 5.3 [facility] [facility] DO Work Phone: Sodium [Moles/Vol] 143 mmol/L 136 - 145 [facility] [facility] DO Work Phone: Urea nitrogen [Mass/Vol] 49 mg/dL above high threshold 6 - 23 [facility] [facility] DO Work Phone: Renal Function Panel 45 {mL/min/1.73m2} Abnormal >60 [facility] [facility] DO Work Phone: Comment on above: CALCULATIONS OF ERNST MATED GFR ARE PERFORMED USING THE MDRD STUDY EQUATION FOR THE IDMS-TRACEABLE CREATININE METHODS. CLIN CHEM 2007;53:766-72 Renal Function Panel 37 {mL/min/1.73m2} Abnormal >60 [facility] DO Work Phone: Tacrolimuson 12-24-2020 Tacrolimus (Bld) [Mass/Vol] 5.4 ng/mL 2.0 - 15.0 [facility] [facility] DO Work Phone: Comment on above: NOTE: Result was obt ained using a chemiluminescent microparticle immunoassay (CMIA) on the [employer] system.Optimal therapeutic ranges for immuno-suppressant drugs depend upon an individualpatient's current clinical state, type oforgan transplant, time post-transplant,co-administration of other immunosuppressants,and other clinical factors. The results ofthis test should be correlated with additionalclinical and laboratory data before changesin treatment regimens are made. CT Head without Contraston 1 CT Head limited WO contrast Normal [facility] [facility] [address] DO Work Phone: [phone] Laboratory - Chemistry and C hemistry - challengeon 12-23-2020 Glucose [Mass/Vol] 151 mg/dL above high threshold 74 - 99 [facility] [facility] DO Work Phone: [phone] Glucose [Mass/Vol] 241 mg/dL above high threshold 74 - 99 [facility] DO Work Phone: [phone] Glucose [Mass/Vol] 195 mg/dL above high threshold 74 - 99 [facility] [facility] DO Work Phone: [phone] Glucose [Mass/Vol] 160 mg/dL above high threshold 74 - 99 [facility] DO Work Phone: [phone] Laboratory - Hematology and Cell countson 12-23-2020 Erythrocyte distribution width (RBC) [Ratio] 12.5 % See Below [facility] [facility] DO Work Phone: [phone] Comment on above: Reference Range: 11. 5 - 14.5 Hematocrit (Bld) [Volume fraction] 34.3 % below low threshold See Below [facility] DO Work Phone: [phone] Comment on above: Reference Range: 41. 0 - 52.0 Hemoglobin (Bld) [Mass/Vol] 11.1 g/dL below low threshold See Below [facility] DO Work Phone: [phone] Comment on above: Reference Range: 13. 5 - 17.5 MCHC (RBC) [Mass/Vol] 32.4 g/dL See Below [facility] DO Work Phone: [phone] Comment on above: Reference Range: 32. 0 - 36.0 MCV (RBC) [Entitic vol] 90 fL 80 - 100 [facility] DO Work Phone: [phone] Platelets (Bld) [#/Vol] 106 10*3/uL below lo w threshold 150 - 450 [facility] [facility] DO Work Phone: [phone] RBC (Bld) [#/Vol] 3.83 {x10E12/L} below low threshold See Below [facility] [facility] DO Work Phone: [phone] Comment on above: Reference Range: 4.5 0 - 5.90 WBC (Bld) [#/Vol] 5.2 10*3/uL 4.4 - 11.3 [facility] [facility] DO Work Phone: [phone] No Panel Informationon 12-23 0.0 {/100_WBC} 0.0-0.0 [facility] DO Work Phone: [phone] Renal Function Panelon 12-23 Albumin BCP dye [Mass/Vol] 3.6 g/dL 3.4 - 5.0 [facility] [facility] DO Work Phone: [phone] Anion gap [Moles/Vol] 14 mmol/L 10 - 20 [facility] [facility] DO Work Phone: [phone] Calcium [Mass/Vol] 8.9 mg/dL 8.6 - 10.6 [facility] DO Work Phone: [phone] Chloride [Moles/Vol] 109 mmol/L above high threshold 98 - 107 [facility] [facility] DO Work Phone: [phone] CO2 [Moles/Vol] 23 mmol/L 21 - 32 [facility] DO Work Phone: [phone] Creatinine [Mass/Vol] 1.71 mg/dL above high threshold See Below [facility] [facility] DO Work Phone: Comment on above: Reference Range: 0.5 0 - 1.30 Glucose [Mass/Vol] 146 mg/dL above high threshold 74 - 99 [facility] DO Work Phone: Phosphate [Mass/Vol] 2.8 mg/dL 2.5 - 4.9 [facility] 260 DO Work Phone: Comment on above: The performance waqar acteristics of phosphorus testing in heparinized plasma have been validated by the individual laboratory site where testing is performed. Testing on heparinized plasma is not approved by the FDA; however, such approval is not necessary. Potassium [Moles/Vol] 4.2 mmol/L 3.5 - 5.3 [facility] [facility] DO Work Phone: Sodium [Moles/Vol] 142 mmol/L 136 - 145 [facility] DO Work Phone: Urea nitrogen [Mass/Vol] 50 mg/dL above high threshold 6 - 23 [facility] [facility] DO Work Phone: Renal Function Panel 47 {mL/min/1.73m2} Abnormal >60 [facility] DO Work Phone: Comment on above: CALCULATIONS OF ERNST MATED GFR ARE PERFORMED USING THE MDRD STUDY EQUATION FOR THE IDMS-TRACEABLE CREATININE METHODS. CLIN CHEM 2007;53:766-72 Renal Function Panel 39 {mL/min/1.73m2} Abnormal >60 [facility] 260 DO Work Phone: Tacrolimuson 12-23-2020 Tacrolimus (Bld) [Mass/Vol] 5.9 ng/mL 2.0 - 15.0 [facility] [facility] DO Work Phone: Comment on above: NOTE: Result was obt ained using a chemiluminescent microparticle immunoassay (CMIA) on the [employer] system.Optimal therapeutic ranges for immuno-suppressant drugs [...] [facility] DO Work Phone: [phone] Glucose [Mass/Vol] 146 mg/dL above high threshold 74 - 99 [facility] [facility] DO Work Phone: [phone] Glucose [Mass/Vol] 217 mg/dL above high threshold 74 - 99 [facility] 260 DO Work Phone: [phone] Glucose [Mass/Vol] 145 mg/dL above high threshold 74 - 99 [facility] 260 DO Work Phone: [phone] Glucose [Mass/Vol] 142 mg/dL above high threshold 74 - 99 [facility] [facility] 260 DO Work Phone: [phone] Laboratory - Hematology and Cell countson 12-22-2020 Erythrocyte distribution width (RBC) [Ratio] 12.6 % See Below [facility] 260 DO Work Phone: [phone] Comment on above: Reference Range: 11. 5 - 14.5 Hematocrit (Bld) [Volume fraction] 33.0 % below low threshold See Below [facility] [facility] 260 DO Work Phone: Comment on above: Reference Range: 41. 0 - 52.0 Hemoglobin (Bld) [Mass/Vol] 10.7 g/dL below low threshold See Below [facility] 260 DO Work Phone: Comment on above: Reference Range: 13. 5 - 17.5 MCHC (RBC) [Mass/Vol] 32.4 g/dL See Below [facility] [facility] 260 DO Work Phone: [phone] Comment on above: Reference Range: 32. 0 - 36.0 MCV (RBC) [Entitic vol] 91 fL 80 - 100 [facility] 260 DO Work Phone: [phone] Platelets (Bld) [#/Vol] 107 10*3/uL below lo w threshold 150 - 450 [facility] DO Work Phone: [phone] RBC (Bld) [#/Vol] 3.62 {x10E12/L} below low threshold See Below [facility] [facility] DO Work Phone: [phone] Comment on above: Reference Range: 4.5 0 - 5.90 WBC (Bld) [#/Vol] 5.0 10*3/uL 4.4 - 11.3 [facility] [facility] 260 DO Work Phone: [phone] No Panel Informationon 12-22 0.0 {/100_WBC} 0.0-0.0 [facility] [facility] 260 DO Work Phone: [phone] Renal Function Panelon 12-22 Albumin BCP dye [Mass/Vol] 3.5 g/dL 3.4 - 5.0 [facility] [facility] 260 DO Work Phone: [phone] Anion gap [Moles/Vol] 15 mmol/L 10 - 20 [facility] [facility] 260 DO Work Phone: [phone] Calcium [Mass/Vol] 8.9 mg/dL 8.6 - 10.6 [facility] DO Work Phone: [phone] Chloride [Moles/Vol] 111 mmol/L above high threshold 98 - 107 [facility] [facility] 260 DO Work Phone: [phone] CO2 [Moles/Vol] 23 mmol/L 21 - 32 [facility] [facility] 260 DO Work Phone: Creatinine [Mass/Vol] 2.04 mg/dL above high threshold See Below [facility] DO Work Phone: Comment on above: Reference Range: 0.5 0 - 1.30 Glucose [Mass/Vol] 131 mg/dL above high threshold 74 - 99 [facility] 260 DO Work Phone: Phosphate [Mass/Vol] 3.3 mg/dL 2.5 - 4.9 [facility] [facility] 260 DO Work Phone: Comment on [...] Function Panel 32 {mL/min/1.73m2} Abnormal >60 [facility] [facility] 260 DO Work Phone: Tacrolimuson 12-22-2020 Tacrolimus (Bld) [Mass/Vol] 5.5 ng/mL 2.0 - 15.0 [facility] [facility] 260 DO Work Phone: Comment on above: NOTE: Result was obt ained using a chemiluminescent microparticle immunoassay (CMIA) on the [employer] system.Optimal therapeutic ranges for immuno-suppressant drugs depend upon an individualpatient's current clinical state, type oforgan transplant, time post-transplant,co-administration of other immunosuppressants,and other clinical factors. The results ofthis test should be correlated with additionalclinical and laboratory data before changesin treatment regimens are made. CT Chest Abdomen Pelvis wo C ontraston 12-21-2020 CT Chest and Abdomen and Pelvis WO contrast Normal [facility] [facility] 260 DO Work Phone: Hemoglobin A1Con [...] 13-18 <7.5 7-12 <8.0 0- 6 7.5-8.5 [employer]. Diabetes Care 33(S1)Mar 2009. HbA1c (Bld) [Mass fraction] 6.8 % Abnormal [facility] [facility] 260 DO Work Phone: Comment on above: Diagnosis of Diabete s-Adults Non-Diabetic: < or = 5.6% Increased risk for developing diabetes: 5.7-6.4% Diagnostic of diabetes: > or = 6.5%. Monitoring of Diabetes Age (y) Therapeutic Goal (%) Adults: >18 <7.0 Pediatrics: 13-18 <7.5 7-12 <8.0 0- 6 7.5-8.5 [employer]. Diabetes Care 33(S1), Mar 2009. Hemoglobin A1C Canceled [facility] 260 DO Work Phone: Laboratory - Chemistry and C hemistry - challengeon 12-21-2020 Glucose [Mass/Vol] 191 mg/dL above high threshold 74 - 99 [facility] [facility] 260 DO Work Phone: Glucose [Mass/Vol] 203 mg/dL above high threshold 74 - 99 [facility] [facility] 260 DO Work Phone: [phone] Glucose [Mass/Vol] 229 mg/dL above high threshold 74 - 99 [facility] 260 DO Work Phone: [phone] Glucose [Mass/Vol] 136 mg/dL above high threshold 74 - 99 [facility] 260 DO Work Phone: [phone] Laboratory - Hematology and Cell countson 12-21-2020 Erythrocyte distribution width (RBC) [Ratio] 12.8 % See Below [facility] 260 DO Work Phone: [phone] Comment on above: Reference Range: 11. 5 - 14.5 Hematocrit (Bld) [Volume fraction] 35.6 % below low threshold See Below [facility] [facility] 260 DO Work Phone: [phone] Comment on above: Reference Range: 41. 0 - 52.0 Hemoglobin (Bld) [Mass/Vol] 12.0 g/dL below low threshold See Below [facility] [facility] 260 DO Work Phone: Comment on [...] [facility] 260 DO Work Phone: [phone] RBC (Bld) [#/Vol] 4.01 {x10E12/L} below low threshold See Below [facility] 260 DO Work Phone: [phone] Comment on above: Reference Range: 4.5 0 - 5.90 WBC (Bld) [#/Vol] 6.2 10*3/uL 4.4 - 11.3 [facility] [facility] 260 DO Work Phone: No Panel Informationon 12-21 0.0 {/100_WBC} 0.0-0.0 [facility] [facility] 260 DO Work Phone: [phone] Renal Function Panelon 12-21 Albumin BCP dye [Mass/Vol] 3.8 g/dL 3.4 - 5.0 [facility] [facility] 260 DO Work Phone: [phone] Anion gap [Moles/Vol] 15 mmol/L 10 - 20 [facility] 260 DO Work Phone: [phone] Calcium [Mass/Vol] 8.8 mg/dL 8.6 - 10.6 [facility] [facility] 260 DO Work Phone: [phone] Chloride [Moles/Vol] 110 mmol/L above high threshold 98 - 107 [facility] [facility] 260 DO Work Phone: [phone] CO2 [Moles/Vol] 23 mmol/L 21 - 32 [facility] [facility] 260 DO Work Phone: [phone] Creatinine [Mass/Vol] 2.22 mg/dL above high threshold See Below [facility] [facility] 260 DO Work Phone: [phone] Comment on above: Reference Range: 0.5 0 [...] 4.1 mmol/L 3.5 - 5.3 [facility] [facility] 260 DO Work Phone: Sodium [Moles/Vol] [...] a chemiluminescent microparticle immunoassay (CMIA) on the [employer] system.Optimal therapeutic ranges for immuno-suppressant drugs depend upon an individualpatient's current clinical state, type oforgan transplant, time post-transplant,co-administration of other immunosuppressants,and other clinical factors. The results ofthis test should be correlated with additionalclinical and laboratory data before changesin treatment regimens are made. Coronavirus 2019 RNA by PCR, Symptomaticon 12-20-2020 Coronavirus 2019 RNA by PCR, Symptomatic Not detected Normal See Below [facility] [facility] 260 DO Work Phone: Comment on above: SOURCE: Nasal, Nasop haryngealReference Range: Not Detected.This test has received FDA Emergency Use Authorization (EUA) and has been verified by [facility] ([facility]). This test is only authorized for the duration of time that circumstances exist to justify the authorization of the emergency use of in vitro diagnostic tests for the detection of SARS-CoV-2 virus and/or diagnosis of COVID-19 infection under section 564(b)(1) of the Act, 21 U.S.C. 360bbb-3(b)(1), unless the authorization is terminated or revoked sooner. [facility] is certified under CLIA-88 as qualified to perform high complexity testing. Testing is performed in the [facility] located at [address] [place] [address].SARS-CoV-2/Flu/RSV Multiplex Test: Fact sheet for providers: https://www.fda.gov/media/359916/downloadFact sheet for patients: https://www.fda.gov/media/740051/download Date and time of symptom onset Canceled [facility] 260 DO Work Phone: Coronavirus 2019 RNA by PCR, Symptomatic Canceled [facility] [facility] 260 DO Work Phone: Comment on [...] this test method. Fact sheet for providers: www.fda.gov/media/140214/downloadFact sheet for patients: www.fda.gov/media/481339/downloadThis test has received FDA Emergency Use Authorization (EUA) and has been verified by [facility] ([facility]). This test is only authorized for the duration of time that circumstances exist to justify the authorization of the emergency use of in vitro diagnostic tests for the detection of SARS-CoV-2 virus and/or diagnosis of COVID-19 infection under section 564(b)(1) of the Act, 21 U.S.C. 360bbb-3(b)(1), unless the authorization is terminated or revoked sooner. [facility] is certified under CLIA-88 as qualified to perform high complexity testing. Testing is performed in the [facility] laboratories located at [address] [place] [address]. Folate, Serumon 12-20-2020 Folate [Mass/Vol] ng/mL >5.0 [facility] 260 DO Work Phone: Comment [...] above high threshold 74 - 99 [facility] [facility] 260 DO Work Phone: TSH Qn 2.00 m[IU]/L See Below [facility] 260 DO Work Phone: Comment on above: Reference Range: 0.4 4 - 3.98 TSH testing is performed using different testing methodology at [facility] than at other [facility]. Direct result comparisons should only be made within the same method. Laboratory - Coagulationon 1 aPTT Coag (PPP) [Time] Canceled [facility] [facility] 260 DO Work Phone: Comment on above: THE APTT IS NO LONGE R USED FOR MONITORING UNFRACTIONATED HEPARIN THERAPY. FOR MONITORING HEPARIN THERAPY, USE THE HEPARIN ASSAY. INR Coag (PPP) [Relative time] Canceled [facility] [facility] 260 DO Work Phone: [phone] PT Coag (PPP) [Time] Canceled [facility]-C niladiolo [facility] [facility] 260 DO Work Phone: [phone] Laboratory - Hematology and Cell countson 12-20-2020 Erythrocyte distribution width (RBC) [Ratio] 12.9 % See Below [facility] [facility] 260 DO Work Phone: [phone] Comment on above: Reference Range: 11. 5 - 14.5 Hematocrit (Bld) [Volume fraction] 35.8 % below low threshold See Below [facility] [facility] 260 DO Work Phone: [phone] Comment on above: Reference Range: 41. 0 - 52.0 Hemoglobin (Bld) [Mass/Vol] 11.7 g/dL below low threshold See Below [facility] [facility] 260 DO Work Phone: [phone] Comment on above: Reference Range: 13. 5 - 17.5 MCHC (RBC) [Mass/Vol] 32.7 g/dL See Below [facility] [facility] 260 DO Work Phone: [phone] Comment on above: Reference Range: 32. 0 - 36.0 MCV (RBC) [Entitic vol] 90 fL 80 - 100 M [facility] [facility] 260 DO Work Phone: [phone] Platelets (Bld) [#/Vol] 131 10*3/uL below lo w threshold 150 - 450 [facility] [facility] 260 DO Work Phone: [phone] RBC (Bld) [#/Vol] 3.97 {x10E12/L} below low threshold See Below [facility] [facility] 260 DO Work Phone: [phone] Comment on above: Reference Range: 4.5 0 - 5.90 WBC (Bld) [#/Vol] 7.3 10*3/uL 4.4 - 11.3 MG-Car diolo [facility] [facility] 260 DO Work Phone: Lactate, Levelon 12-20-2020 Lactate [Moles/Vol] 1.0 mmol/L 0.4 - 2.0 MG-Ca rdiolo gy-[place] [facility] 260 DO Work Phone: Comment on above: Venipuncture immedia tely after or during the administration of Metamizole may lead to falsely low results. Testing should be performed immediately prior to Metamizole dosing. Magnesium, Serumon Magnesium [Mass/Vol] 2.65 mg/dL above high threshold See Below [facility] [facility] [address] DO Work Phone: Comment on above: Reference Range: 1.6 0 - 2.40 No Panel Informationon 12-20 82 pg/mL 0 - 99 [facility] [facility] 260 DO Work Phone: Comment on above: . <100 pg/mL - Heart failure [id number] pg/mL - Intermediate probability of acute heart. [...] XR Chest Single view Normal MG-C ardiolo [facility] [facility] 260 DO Work Phone: Renal Function Panelon 12-20 Albumin BCP dye [Mass/Vol] 3.9 g/dL 3.4 - 5.0 [facility] [facility] 260 DO Work Phone: [phone] Anion gap [Moles/Vol] 17 mmol/L 10 - 20 [facility]- [facility] [facility] 260 DO Work Phone: [phone] Calcium [Mass/Vol] 9.2 mg/dL 8.6 - 10.6 MG-Car diolo [facility]-[place] [facility] 260 DO Work Phone: [phone] Chloride [Moles/Vol] 112 mmol/L above high threshold 98 - 107 [facility] [facility] 260 DO Work Phone: [phone] CO2 [Moles/Vol] 24 mmol/L 21 - 32 [facility]Cardio lo [facility] [facility] 260 DO Work Phone: [phone] Creatinine [Mass/Vol] 2.40 mg/dL above high threshold See Below [facility] [facility] 260 DO Work Phone: [phone] Comment on above: Reference Range: 0.5 0 - 1.30 Glucose [Mass/Vol] 211 mg/dL above high threshold 74 - 99 [facility] [facility] 260 DO Work Phone: [phone] Phosphate [Mass/Vol] 4.5 mg/dL 2.5 - 4.9 [facility] ardiolo [facility] [facility] 260 DO Work Phone: [phone] Comment on above: The performance waqar acteristics of phosphorus testing in heparinized plasma have been validated by the individual laboratory site where testing is performed. Testing on heparinized plasma is not approved by the FDA; however, such approval is not necessary. Potassium [Moles/Vol] 4.8 mmol/L 3.5 - 5.3 [facility] [facility] 260 DO Work Phone: [phone] [...] [Mass/Vol] 5.6 ng/mL 2.0 - 15.0 [facility] [facility] 260 DO Work Phone: Comment on above: NOTE: Result was obt ained using a chemiluminescent microparticle immunoassay (CMIA) on the [employer] i system.Optimal therapeutic ranges for immuno-suppressant drugs depend upon an individualpatient's current clinical state, type oforgan transplant, time post-transplant,co-administration of other immunosuppressants,and other clinical factors. The results ofthis test should be correlated with additionalclinical and laboratory data before changesin treatment regimens are made. Troponin I, Serumon 12-21-19 Troponin I.cardiac [Mass/Vol] 0.02 ng/mL See Below [facility] [facility] [address] DO Work Phone: Comment on [...] is performed using different testing methodology at [facility] than at other [facility]. [...] above high threshold 211 - 911 [facility]-Cardiolo [facility] [facility] 260 DO Work Phone: Basic Metabolic PanelOrdered By: Manuel Conner on 12-19-2020 Anion gap [Moles/Vol] 11 mmol/L 9 - 17 mmol/L Ak?Lex Phone: Calcium [Mass/Vol] 9.3 mg/dL 8.6 - 10. 4 mg/dL Ak?[facility] Phone: Chloride [Moles/Vol] 107 mmol/L 98 - 10 7 mmol/L [facility] Phone: CO2 [Moles/Vol] 23 mmol/L 20 - 31 mmol/L [facility] Phone: Creatinine [Mass/Vol] 2.53 mg/dL High 0.70 - 1.20 mg/dL [facility] Phone: GFR 30 mL/min Low >60 Frequency Phone: GFR Non- 25 mL/min Low >60 [facility] Phone: Glucose [Mass/Vol] 160 mg/dL High 70 - 99 mg/dL Ak?[facility] Phone: Interpretation and review of laboratory results Abnormal [facility] Phone: Potassium [Moles/Vol] 4.5 mmol/L 3.7 - 5.3 mmol/L [facility] Phone: Sodium [Moles/Vol] 141 mmol/L 135 - 144 mmol/L [facility] Phone: Urea nitrogen (BldV) [Mass/Vol] 76 mg/dL High 8 - 23 mg/dL Ak?[facility] Phone: Urea nitrogen/Creatinine (Bld) [Mass ratio] 30 High Ak?Lex Phone: Ak?Lex Phone: Laboratory - Chemistry and C hemistry - challengeOrdered By: Manuel Conner on 12-19-2020 GFR/1.73 sq M.predicted MDRD (S/P/Bld) [Vol rate/Area] Ak?Lex Phone: Comment on above: Average GFR for 70 o r more years old: 75 mL/min/1.73sq m Chronic Kidney Disease: <60 mL/min/1.73sq m Kidney failure: <15 mL/min/1.73sq m eGFR calculated using average adult body mass. Additional eGFR calculator available at: http://www.Dandelion/Bancha_crcl_2012.htm Stage 1: Some kidney damage normal GFR Stage 2: Mild kidney damage GFR 60-89 Stage 3: Moderate kidney damage GFR 30-59 Stage 4: Severe kidney damage GFR 15-29 Stage 5: Severe kidney damage GFR <15 ESRD - chronic treatment by dialysis or transplant TroponinOrdered By: Manuel Conner on 12-19-2020 Interpretation and review of laboratory results Abnormal Ak?Lex Phone: Troponin Interp NOT REPORTED Ak?Lex Phone: Troponin T NOT REPORTED <0.03 ng/mL Ak?Lex Phone: Troponin, High Sensitivity 57 ng/L Critically high 0 - 22 ng/L [facility]?Lex Phone: Comment on above: High Sensitivity Troponin values cannot be compared with other Troponin methodologies. Patients with high levels of Biotin oral intake (i.e >5mg/day) may have falsely decreased Troponin levels. Samples collected within 8 hours of biotin intake may require additional information for diagnosis. Ak?Lex Phone: Basic Metabolic PanelOrdered By: Manuel Conner on 12-18-2020 Anion gap [Moles/Vol] 14 mmol/L 9 - 17 mmol/L [facility] Phone: Calcium [Mass/Vol] 9.3 mg/dL 8.6 - 10. 4 mg/dL [facility] Phone: Chloride [Moles/Vol] 104 mmol/L 98 - 10 7 mmol/L Ak?Lex Phone: CO2 [Moles/Vol] 22 mmol/L 20 - 31 mmol/L [facility] Phone: Creatinine [Mass/Vol] 4.1 mg/dL High 0.70 - 1.20 mg/dL Ak?Lex Phone: GFR 17 mL/min Low >60 Frequency Phone: GFR Non- 14 mL/min Low >60 [facility] Phone: Glucose [Mass/Vol] 148 mg/dL High 70 - 99 mg/dL [facility] Phone: Potassium [Moles/Vol] 5.2 mmol/L 3.7 - 5.3 mmol/L [facility] Phone: Sodium [Moles/Vol] 140 mmol/L 135 - 144 mmol/L [facility] Phone: Urea nitrogen (BldV) [Mass/Vol] 87 mg/dL High 8 - 23 mg/dL [facility] Phone: Urea nitrogen/Creatinine (Bld) [Mass ratio] 21 High Ak?Lex Phone: Brain Natriuretic PeptideOrd ered By: Manuel Conner on 12-18-2020 BNP Interpretation Pro-BNP Reference Range: Ak?Lex Phone: Comment on above: Rule Out: <300 Pagan Zone: Age <50 300-450 Age 50-75 300-900 Age >75 300-1800 Usually represents mild to moderate HF but other cardiopulmonary causes cannot be ruled out. Rule In: Age <50 >450 Age 50-75 >900 Age >75 >1800 Interpretation and review of laboratory results Abnormal Ak?Lex Phone: Natriuretic peptide B (Bld) [Mass/Vol] 846 pg/mL High <300 Ak?Lex Phone: Comment on above: Pro-BNP results halie ot be compared to BNP results. Ak?Lex Phone: EKG Rhythm StripOrdered By: Unknown Result on 12-18-2020 Ak?Lex Phone: Ak?Lex Phone: Glucose, Whole BloodOrdered By: Manuel Conner on 12-18-2020 Glucose [Mass/Vol] 152 mg/dL High 74 - 100 mg/dL Ak?Lex Phone: Interpretation and review of laboratory results Abnormal Ak?Lex Phone: Ak?Lex Phone: Laboratory - Chemistry and C hemistry - challengeOrdered By: Manuel Conner on 12-18-2020 GFR/1.73 sq M.predicted MDRD (S/P/Bld) [Vol rate/Area] Ak?Lex Phone: Comment on above: Average GFR for 70 o r more years old: 75 mL/min/1.73sq m Chronic Kidney Disease: <60 mL/min/1.73sq m Kidney failure: <15 mL/min/1.73sq m eGFR calculated using average adult body mass. Additional eGFR calculator available at: http://www.[employer].com/multiple_crcl_2012.htm Stage 1: Some kidney damage normal GFR Stage 2: Mild kidney damage GFR 60-89 Stage 3: Moderate kidney damage GFR 30-59 Stage 4: Severe kidney damage GFR 15-29 Stage 5: Severe kidney damage GFR <15 ESRD - chronic treatment by dialysis or transplant No Panel InformationOrdered By: Manuel Conner on 12-18-2020 Interpretation and review of laboratory results Abnormal Ak?Lex Phone: Ak?Lex Phone: TroponinOrdered By: Manuel Conner on 12-18-2020 Troponin Interp NOT REPORTED Ak?Lex Phone: Troponin T NOT REPORTED <0.03 ng/mL Ak?Lex Phone: Troponin, High Sensitivity 71 ng/L Critically high 0 - 22 ng/L [facility]?Lex Phone: Comment on above: High Sensitivity Troponin [...] Consider advancement by 5-7 cm, if able. Ak?Lex Phone: EXAMINATION: ONE XRA Y VIEW OF [...] cardiomegaly. Bony thorax is without acute abnormality. Ak?Lex Phone: Roger, Mhpn Incoming R adiant Results From [facility] - 12/18/2020 1:31 PM EDT EXAMINATION: ONE [...] Consider advancement by 5-7 cm, if able. Ak?Lex Phone: Ak?Lex Phone: XR CHEST PORTABLEOrdered By: Manuel Conner on 12-18-2020 Mild prominence of interstitial markings suggests mild vascular congestion with mild streaky bibasilar atelectasis Ak?Lex Phone: EXAMINATION: ONE XRA Y VIEW OF THE CHEST 12/18/2020 11:18 am COMPARISON: December 17, 2020, chest examination HISTORY: ORDERING SYSTEM PROVIDED HISTORY: Congestion TECHNOLOGIST PROVIDED HISTORY: Congestion FINDINGS: Median sternotomy. Stable cardiomegaly/mild tortuosity of the thoracic aorta Mild streaky bibasilar density. Mild prominence of interstitial markings Possible small right pleural effusion Degenerative changes of the thoracic spine/shoulders Ak?Lex Phone: Roger, Mhpn Incoming R adiant Results From [facility] - 12/18/2020 11:26 AM EDT EXAMINATION: ONE [...] vascular congestion with mild streaky bibasilar atelectasis Ak?Lex Phone: Ak?Lex Phone: APTTOrdered By: Manuel lew on 12-17-2020 aPTT Coag (Bld) [Time] 22.8 s Low [email or web address] Phone: Comment on above: IV Heparin Therapy Range: 62.0-94.0 Interpretation and review of laboratory results Abnormal Ak?Lex Phone: Ak?Lex Phone: Blood Gas, VenousOrdered By: Manuel Conner on 12-17-2020 Shilo Test NOT REPORTED Ak?Lex Phone: Carboxyhemoglobin NOT REPORTED 0.0 - 5.0 % Ak?Lex Phone: Comment on above: FIO2 NOT REPORTED Ak?Lex Phone: HCO3 (Bld) [Moles/Vol] 21.9 mmol/L Low 24.0 - 30.0 mmol/L Ak?Lex Phone: Interpretation and review of laboratory results Abnormal [facility]?Lex Phone: Methemoglobin NOT REPORTED 0.0 - 1.9 % Ak?Lex Phone: Mode NOT REPORTED Ak?Lex Phone: Negative Base Excess, Angelo 5.7 mmol/L High 0.0 - 2.0 mmol/L Ak?Lex Phone: NOTIFICATION NOT REPORTED Ak?Lex Phone: NOTIFICATION TIME NOT REPORTED Ak?Lex Phone: O2 Device/Flow/% NOT REPORTED Ak?Lex Phone: Oxygen saturation in Blood 31.2 % Low 60.0 - 85.0 % Ak?Lex Phone: Oxyhemoglobin NOT REPORTED 95.0 - 98.0 [...] on 12-17-2020 BNP Interpretation Pro-BNP Reference Range: [facility] Work Phone: Comment on above: Rule Out: <300 Pagan Zone: Age <50 300-450 Age 50-75 300-900 Age >75 300-1800 Usually represents mild to moderate HF but other cardiopulmonary causes cannot be ruled out. Rule In: Age <50 >450 Age 50-75 >900 Age >75 >1800 Natriuretic peptide B (Bld) [Mass/Vol] 1428 pg/mL High <300 Ak?Lex Phone: Comment on above: Pro-BNP results halie ot be compared to BNP results. CBC Auto DifferentialOrdered By: Manuel Conner on 12-17-2020 Absolute Eos # 0.03 Ak?Lex Phone: Absolute Immature Granulocyte 0.03 Ak?Lex Phone: Absolute Lymph # 0.96 Low Ak?Lex Phone: Absolute [place]ola # 0.52 Ak?Lex Phone: Basophils (Bld) [#/Vol] 10*3/uL M [employer] Phone: Basophils/100 WBC (Bld) 0 % 0 - 2 % M [employer] Phone: Differential Type NOT REPORTED [facility]?Lex Phone: Eosinophils/100 WBC (Bld) 0 % Low 1 - 4 % [facility]?Lex Phone: Hematocrit (Bld) [Volume fraction] 37.2 % Low 40.7 - 50.3 % Ak?Lex Phone: Hemoglobin.gastrointest inal spec 1 Ql (Stl) 11.5 g/dL Low 13.0 - 17.0 g/dL Ak?Lex Phone: Immature granulocytes/100 WBC (Bld) 0 % 0 Ak?Lex Phone: Interpretation and review of laboratory results Abnormal Ak?Lex Phone: Lymphocytes/100 WBC (Bld) 11 % Low 24 - 43 % Ak?Lex Phone: MCH (RBC) [Entitic mass] 28.5 pg 25.2 - 33.5 pg Ak?Lex Phone: MCHC (RBC) [Mass/Vol] 30.9 g/dL 28.4 - 34.8 g/dL Ak?Lex Phone: MCV (RBC) [Entitic vol] 92.3 fL 82.6 - 102.9 fL Ak?Lex Phone: Monocytes/100 WBC (Bld) 6 % 3 - 12 % M [employer] Phone: NRBC Automated 0.0 0.0 per 100 WBC [facility]?Lex Phone: Platelet distribution width (Bld) [Ratio] 13.0 % 11.8 - 14.4 % Ak?Lex Phone: Platelet Estimate NOT REPORTED [facility]?Lex Phone: Platelet mean volume (Bld) [Entitic vol] NOT REPORTED 8.1 - 13.5 fL [facility]?Lex Phone: Platelets (Bld) [#/Vol] See Reflexed IPF Result [facility]?Lex Phone: RBC (Bld) [#/Vol] 4.03 10*6/uL Low 4.21 - 5.77 m/uL Ak?Lex Phone: RBC (Bld) [#/Vol] NOT REPORTED [facility]?Lex Phone: Segmented neutrophils/100 WBC (Bld) 82 % High 36 - 65 % Ak?Lex Phone: Segs Absolute 6.94 Ak?Lex Phone: WBC (Bld) [#/Vol] 8.5 10*3/uL [facility]?Lex Phone: WBC (Bld) [#/Vol] NOT REPORTED Ak?Lex Phone: Ak?Lex Phone: COVID-19, RapidOrdered By: Agnieszka munozsloan Finneyjodie on 12-17-2020 SARS-CoV-2 (COVID-19) RNA JOYCE+probe Ql (Unsp spec) Not detected Not Detected Ak?Lex Phone: Comment on above: Rapid NAAT: The [...] management decisions. Fact sheet for Healthcare Providers: https://www.fda.gov/media/652966/download Fact sheet for Patients: https://www.fda.gov/media/000942/download Methodology: Isothermal Nucleic Acid Amplification Specimen Description .NASOPHARYNGEAL SWAB Ak?Lex Phone: Ak?Lex Phone: CT HEAD WO CONTRASTOrdered B y: Manuel Conner on 12-17-2020 No acute intracrania l abnormality. 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 Minimal parenchymal volume loss. Minimal chronic microvascular disease. Ak?Lex Phone: EXAMINATION: CT OF T HE HEAD [...] of the visualized skull or soft tissues. [employer] Work Phone: Roger, Mhpn Incoming R adiant Results From [facility] - 12/17/2020 9:36 AM EDT EXAMINATION: CT [...] HISTORY: ams TECHNOLOGIST PROVIDED HISTORY: [facility] Decision Support Exception - unselect if not [...] parenchymal volume loss. Minimal chronic microvascular disease. Ak?Lex Phone: Ak?Lex Phone: Comprehensive Metabolic Pane l w/ Reflex to MGOrdered By: Manuel Conner on 12-17-2020 Albumin [Mass/Vol] 4 g/dL 3.5 - 5.2 g/dL Ak?Lex Phone: Albumin/Globulin [Mass ratio] 1.3 {ratio} Ak?Lex Phone: ALP (Bld) [Catalytic activity/Vol] 66 U/L 40 - 129 U/L Ak?Lex Phone: ALT [Catalytic activity/Vol] 12 U/L 5 - 41 U/L Ak?Lex Phone: Anion gap [Moles/Vol] 19 mmol/L High 9 - 17 mmol/L Ak?Lex Phone: AST [Catalytic activity/Vol] 18 U/L <40 Ak?Lex Phone: Bilirubin [Mass/Vol] 0.16 mg/dL Low 0.3 - 1 .2 mg/dL [facility]?Lex Phone: Calcium [Mass/Vol] 8.8 mg/dL 8.6 - 10. 4 mg/dL Ak?Lex Phone: Chloride [Moles/Vol] 102 mmol/L 98 - 10 7 mmol/L Ak?[facility] Phone: CO2 [Moles/Vol] 19 mmol/L Low 20 - 31 mmol/L [facility] Phone: Creatinine [Mass/Vol] 6.59 mg/dL Critically high 0.7 0 - 1.20 mg/dL [facility]?Lex Phone: Free PSA/Total PSA [Mass fraction] 7.0 g/dL 6.4 - 8.3 g/dL Ak?Lex Phone: GFR 10 mL/min Low >60 [employer] Work Phone: GFR Non- 8 mL/min Low >60 [employer] Work Phone: Glucose [Mass/Vol] 197 mg/dL High 70 - 99 mg/dL Ak?Lex Phone: [phone] Potassium [Moles/Vol] 4.6 mmol/L 3.7 - 5.3 mmol/L [facility]?Lex Phone: Sodium [Moles/Vol] 140 mmol/L 135 - 144 mmol/L [facility] Phone: Urea nitrogen (BldV) [Mass/Vol] 96 mg/dL Critically high 8 - 23 mg/dL [facility]?Lex Phone: Urea nitrogen/Creatinine (Bld) [Mass ratio] 15 [employer] Work Phone: EKG 12 LeadOrdered By: Kathy Conner on 12-17-2020 Atrial Rate 85 BPM Ak?Lex Phone: P [place] -15 degrees Ak?Lex Phone: P-R Interval 224 ms [facility]?Lex Phone: Q-T Interval 414 ms [facility]?Lex Phone: QRS Duration 120 ms Ak?Lex Phone: QTc Calculation (Bazett) 492 ms Ak?Lex Phone: R [place] 99 degrees Ak?Lex Phone: T [place] 44 degrees Ak?Lex Phone: Ventricular Rate 85 BPM Ak?Lex Phone: Sinus rhythm with 1s t degree A-V block Rightward axis Septal infarct , age undetermined Abnormal ECG No previous ECGs available Confirmed by JARON BERNARD ([id number]) on 12/17/2020 11:51:30 PM Ak?Lex Phone: Roger, Mhpn Incoming E kg Results From [facility] - 12/17/2020 11:51 PM EDT Sinus rhythm with 1st degree A-V block Rightward axis Septal infarct , age undetermined Abnormal ECG No previous ECGs available Confirmed by JARON BERNARD ([id number]) on 12/17/2020 11:51:30 PM Ak?Lex Phone: Ak?Lex Phone: Immature Platelet FractionOr dered By: Manuel Conner on 12-17-2020 Interpretation and review of laboratory results Abnormal Ak?Lex Phone: Platelet, Fluorescence 110 Low Me [employer] Phone: Platelet, Immature Fraction 4.6 % 1.1 - 10.3 % Ak?Lex Phone: Ak?Lex Phone: Laboratory - Chemistry and C hemistry - challengeOrdered By: Manuel Conner on 12-17-2020 GFR/1.73 sq M.predicted MDRD (S/P/Bld) [Vol rate/Area] Ak?Lex Phone: Comment on above: Average GFR for 70 o r more years old: 75 mL/min/1.73sq m Chronic Kidney Disease: <60 mL/min/1.73sq m Kidney failure: <15 mL/min/1.73sq m eGFR calculated using average adult body mass. Additional eGFR calculator available at: http://www.[employer]/multiple_crcl_2012.htm Stage 1: Some kidney damage normal GFR Stage 2: Mild kidney damage GFR 60-89 Stage 3: Moderate kidney damage GFR 30-59 Stage 4: Severe kidney damage GFR 15-29 Stage 5: Severe kidney damage GFR <15 ESRD - chronic treatment by dialysis or transplant Lactic AcidOrdered By: Kathy Conner on 12-17-2020 Lactate [Moles/Vol] 1.3 mmol/L 0.5 - 2. 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 Flow artifact in the proximal M1 segments of the bilateral MCAs and intracranial right ICA. The bilateral intracranial vertebral arteries are not imaged. Ak?Lex Phone: EXAMINATION: MRA OF THE HEAD WITHOUT CONTRAST 12/17/2020 1:32 pm TECHNIQUE: MRA of the head was performed utilizing [id number] imaging with MIP images. No intravenous contrast [...] cerebral arteries. No evidence of intracranial aneurysm. Ak?Lex Phone: Roger, Mhpn Incoming R adiant Results From [facility] - 12/17/2020 2:02 PM EDT EXAMINATION: MRA OF THE HEAD WITHOUT CONTRAST 12/17/2020 1:32 pm TECHNIQUE: MRA of the head was performed utilizing [id number] imaging with MIP images. No intravenous contrast [...] bilateral intracranial vertebral arteries are not imaged. Ak?Lex Phone: Ak?Lex Phone: MRI BRAIN WO CONTRASTOrdered By: Manuel Conner on 12-17-2020 Addendum by Cristhian Hardin MD on 12/17/2020 2:02 PM ADDENDUM: Absence of normal flow void in left vertebral artery, likely related to severe stenosis versus occlusion. Ak?Lex Phone: No acute intracrania l abnormality. 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 Mild parenchymal volume loss. Mild chronic microvascular disease. 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 [facility]?Lex Phone: EXAMINATION: MRI OF THE BRAIN WITHOUT [...] The soft tissues demonstrate no acute abnormality. Ak?Lex Phone: Roger, pn Incoming R adiant Results From [facility] - 12/17/2020 1:55 PM EDT EXAMINATION: MRI [...] internal carotid artery, likely related to occlusion. [employer] Work Phone: [employer] Work Phone: Microscopic UrinalysisOrdere d By: Manuel Conner on 12-17-2020 - [employer] Work Phone: Amorphous, UA NOT REPORTED None [employer] Work Phone: Bacteria, UA NOT REPORTED None [employer] Work Phone: Casts UA NOT REPORTED /LPF [employer] Work Phone: Crystals, UA NOT REPORTED None /HPF [employer] Work Phone: Epithelial Cells UA 0 TO 2 [facility]?Lex Phone: Mucus, UA NOT REPORTED None [facility]?Lex Phone: Other Observations UA NOT REPORTED NOT REQ. M [facility] Work Phone: RBC, UA 2 TO 5 [employer] Work Phone: Renal Epithelial, UA NOT REPORTED 0 /HPF Me [employer] Work Phone: Trichomonas, UA NOT REPORTED None [facility]?Lex Phone: WBC, UA 0 TO 2 [facility] Phone: Yeast, UA NOT REPORTED None Ak?Lex Phone: [employer] Work Phone: No Panel InformationOrdered By: Manuel Conner on 12-17-2020 Interpretation and review of laboratory results Abnormal Ak?[facility] Phone: Ak?Lex Phone: Interpretation and review of laboratory results Abnormal Ak?Lex Phone: Ak?Lex Phone: Protime-INROrdered By: Kathy Conner on 12-17-2020 INR Coag (Bld) [Relative time] 1.1 {INR} Ak?Lex Phone: Comment on above: Non-therapeutic Range: INR = 0.9-1.2 Therapeutic Range: Moderate Anticoagulant Intensity: INR = 2.0-3.0 High Anticoagulant Intensity: INR = 2.5-3.5 PT Coag (PPP) [Time] 13.7 s Frequency Phone: Ak?Lex Phone: TroponinOrdered By: Manuel Conner on 12-17-2020 Interpretation and review of laboratory results Abnormal [facility]?Lex Phone: Troponin Interp NOT REPORTED [facility] Phone: Troponin T NOT REPORTED <0.03 ng/mL [facility] Phone: Troponin, High Sensitivity 79 ng/L Critically high 0 - 22 ng/L Ak?Lex Phone: Comment on above: High Sensitivity Troponin values cannot be compared with other Troponin methodologies. Patients with high levels of Biotin oral intake (i.e >5mg/day) may have falsely decreased Troponin levels. Samples collected within 8 hours of biotin intake may require additional information for diagnosis. Ak?Lex Phone: Troponin Interp NOT REPORTED [facility]?Lex Phone: Troponin T NOT REPORTED <0.03 ng/mL [facility]?Lex Phone: Troponin, High Sensitivity 85 ng/L Critically high 0 - 22 ng/L [facility] Phone: Comment on above: High Sensitivity Troponin values cannot be compared with other Troponin methodologies. Patients with high levels of Biotin oral intake (i.e >5mg/day) may have falsely decreased Troponin levels. Samples collected within 8 hours of biotin intake may require additional information for diagnosis. Urinalysis, reflex to micros copicOrdered By: Manuel Conner on 12-17-2020 Bilirubin Urine Negative NEGATIVE Ak?Lex Phone: Color, UA Yellow Yellow [employer] Work Phone: Glucose, Ur Negative NEGATIVE [employer] Work Phone: Interpretation and review of laboratory results Abnormal Ak?[employer] Phone: Ketones Ql (U) Negative NEGATIVE [employer] Work Phone: Leukocyte esterase Test strip Ql (U) Negative NEGATIVE [employer] Work Phone: Nitrite, Urine Negative NEGATIVE [employer] Work Phone: pH, UA 5.5 [employer] Work Phone: Protein, UA TRACE Abnormal NEGATIVE Ak?Lex Phone: Specific [place], UA 1.025 High [employer] Work Phone: Turbidity UA Clear Clear [employer] Work Phone: Urinalysis Comments NOT REPORTED [facility] [employer] Work Phone: Urine Hgb TRACE Abnormal NEGATIVE Ak?Lex Phone: Urobilinogen, Urine Normal Normal Ak?Lex Phone: Ak?Lex Phone: XR CHEST PORTABLEOrdered By: Manuel Conner on 12-17-2020 Mild streaky bibasil ar atelectasis with possible small bilateral pleural effusions Ak?Lex Phone: EXAMINATION: ONE XRA Y VIEW OF THE CHEST 12/17/2020 9:30 am COMPARISON: None. HISTORY: ORDERING SYSTEM PROVIDED HISTORY: Congestion TECHNOLOGIST PROVIDED HISTORY: Congestion FINDINGS: Median sternotomy. Normal cardiopericardial silhouette Low volume lungs. Mild streaky bibasilar densities, possible possible small bilateral pleural effusions. Clear upper lungs Degenerative changes of the thoracic spine/shoulders [employer] Work Phone: Roger, Mhpn Incoming R adiant Results From [employer] - 12/17/2020 9:46 AM EDT EXAMINATION: ONE [...] atelectasis with possible small bilateral pleural effusions [employer] Work Phone: [employer] Phone: Vital Signs Date Time Vital Sign Value Performing Clinician Facility 07-03-2021 15:01-0400 Body temperature 99.32 [degF] Michael Carballo Other Phone: [facility] 07-03-2021 15:01-0400 Diastolic blood pressure 66 mm[Hg] Michael Carballo Other Phone: [facility] 07-03-2021 15:01-0400 Heart rate 80 /min Michael Carballo Other Phone: [facility] 07-03-2021 15:01-0400 Respiratory rate 22 /min Michael Carballo Other Phone: [facility] 07-03-2021 15:01-0400 SaO2% (BldA) [Mass fraction] 97 % Michael Carballo Other Phone: [facility] 07-03-2021 15:01-0400 Systolic blood pressure 127 mm[Hg] Michael Carballo Other Phone: [facility] 07-03-2021 06:30-0400 Body weight 100.5 kg Michael Carballo Other Phone: [facility] 06-27-2021 13:00-0400 Diastolic blood pressure 69 mm[Hg] [...] 64 mm[Hg] Manuel Conner MD Work Phone: [employer] Work Phone: 12-19-2020 20:01-0400 Systolic blood pressure 182 mm[Hg] Manuel Conner MD Work Phone: [employer] Work Phone: 12-19-2020 19:00-0400 Heart rate 75 /min Manuel Conner MD Work Phone: [employer] Work Phone: 12-19-2020 19:00-0400 Respiratory rate 23 /min Manuel Conner MD Work Phone: [employer] Work Phone: 12-19-2020 19:00-0400 SaO2% (BldA) [Mass fraction] 94 % Manuel Conner MD Work Phone: [employer] Work Phone: 12-18-2020 06:30-0400 Body temperature 98.29 [degF] Manuel Conner MD Work Phone: [employer] Work Phone: Encounters Encounter Date Encounter Type Care Provider Facility Start: 09-28-2022 AUDIT Michael Carballo Work Phone: MT-Vrgqiwxtws-Dvfctgoi SJW 260 DO Work Phone: Start: 07-24-2022 End: 07-24-[address] MICHAEL CARBALLO . Facility:[facility] Start: 07-15-2022 End: 07-15-[address] MICHAEL CARBALLO . Facility: Start: 07-13-2022 Patient encounter procedure Michael Carballo Work Phone: MP-Dwomkamjhe-KMK [place] [address] Work Phone: Start: 07-13-2022 Phys/qhp telephone evaluation 11-20 min Michael Carballo Work Phone: SN-Vitjqssdmk-JJC [place] [address] Work Phone: Start: 07-13-2022 ambulatory MD SCOUT ROMO Facility:[facility] Start: 07-13-2022 End: 07-13-[address] MICHAEL CARBALLO . Facility: Start: 07-09-2022 AUDIT Michael Carballo Work Phone: BB-Ghiljqjvbn-NSA [place] [address] Work Phone: Start: 06-08-2022 ambulatory Facility:[facility] Start: 06-05-2022 End: 06-05-[address] MICHAEL CARBALLO . Facility: Start: 06-04-2022 End: 06-04-[address] MICHAEL CARBALLO . Facility: Start: 04-14-2022 End: 04-15-2022 ambulatory DONNA ARELLANO [facility] Start: 04-14-2022 End: 04-14-2022 Subsequent hospital visit by physician Michael Carballo Work Phone: [facility] Start: 10-30-2021 End: 10-31-2021 ambulatory Manfred Wilson Facility:[facility] Start: 10-28-2021 End: 10-28-[address] MICHAEL CARBALLO . Facility: Start: 10-15-2021 Patient encounter procedure Michael Carballo Work Phone: DL-Syldyrcyjc-JCG [facility] [address] [place] Work Phone: Start: 10-15-2021 ambulatory DO FELICIA ASTORGA Facility:[facility] Start: 08-05-2021 End: 08-06-[address] MICHAEL CARBALLO . Facility: Start: 07-16-2021 Office outpatient vi sit 25 minutes Michael Carballo Work Phone: HG-Nekjmltylm-EFB [facility] [address] [place] Work Phone: Start: 07-16-2021 Patient encounter procedure Michael Carballo Work Phone: AM-Yzdgkzwibv-YGE [facility] [address] [place] Work Phone: Start: 06-27-2021 End: 07-03-2021 Evaluation and management of inpatient [id number] Start: 06-25-2021 End: 06-27-2021 Evaluation and management of inpatient MD Michael Carballo Work Phone: [facility] [place] Start: 06-25-2021 Patient encounter procedure Michael Carballo Work Phone: RY-Uzpxgzjsqe-KYX [facility] [address] [place] Work Phone: Start: 06-24-2021 End: 06-24-2021 Patient encounter procedure MD Michael Carballo Work Phone: [facility] Start: 05-28-2021 AUDIT Michael Carballo Work Phone: NT-Hkvfpggcwt-OCP [facility] [address] [place] Work Phone: Start: 05-27-2021 End: 05-27-2021 Patient encounter procedure MD Michael Carballo Work Phone: [facility] Start: 01-01-2021 Patient encounter procedure Michael Carballo Work Phone: AA-Mpnlkjdpdr-GXC [facility] [address] [place] Work Phone: Start: 01-01-2021 WANG, Provider : Felicia Astorga, Status: Pen, Time: 2:20 PM Michael Carballo Work Phone: HR-Guluazktxe-Nyyzovsl SJW 260 DO Work Phone: Start: 12-31-2020 AUDIT Michael Carballo Work Phone: QV-Bcwemaqpse-Yutyrfta SJW 260 DO Work Phone: Start: 12-17-2020 End: 12-19-2020 Emergency department patient visit Manuel Conner MD Work Phone: [facility] ED Comment on above: Anmrata coma scale t otal score 13-15, at hospital admission (Primary Dx); Acute kidney injury (HCC); Heart replaced by transplant (HCC); Confusion Start: 11-21-2020 AUDIT Michael Carballo Work Phone: LO-Eqhwkaaphl-LAL [facility] [address] [place] Work Phone: Start: 10-31-2020 AUDIT Michael Carballo Work Phone: [facility] Work Phone: Procedures Date Procedure Procedure Detail [...] Phone: Start: 12-17-2020 Assay of lipase Manuel Conenr MD Work Phone: Start: 12-17-2020 IMMATURE PLATELET FRACTION Manuel Conner MD Work Phone: H/O: heart recipient Heart transplanted Jasper Carballo Work Phone: H/O: heart recipient Heart repla vaibhav by transplant ([facility]) Manuel Conner MD Work Phone: H/O: [...] Montse Villanueva, Status: Pen, Time: 2:00 PM PJ-Kawjqyeanr-WHC [facility] [address] Work Phone: Start: 07-13-2022 VIRFUCORI, Provider : Scout Romo, Status: Pen, Time: 1:40 PM VIRFUVHOME, Provider: Scout Romo, Status: Pen, Time: 1:40 PM RV-Uxbabfhdpb-VER [facility] [address] Work Phone: Start: 04-01-2022 VIRFUCORI, Provider : Felicia Astorga, Status: Pen, Time: 1:00 PM VIRFUCORI, Provider: Felicia Astorga, Status: Pen, Time: 1:00 PM LK-Houxipfoys-PTW [facility] [address] [place] Work Phone: Start: 12-19-2021 Creatinine measurement Creatinine [facility] Work Phone: Start: 12-19-2021 Potassium monitoring Potassium monit [facility] Work Phone: Start: 10-20-2021 Influenza vaccination Flu vaccine (# 1) [facility] Start: 07-16-2021 Patient encounter procedure [facility] Start: 07-03-2021 End: 07-04-2022 Insulin Glargine (Lantus) Injectable Subcutaneous Once ; DOSE = 12 unit(s) SubCutaneous At BedtimeNotes from Pharmacy: [facility] Start: 03-Jul-2021 End: 03-Jul-2022 Ordered: 03-Jul-2021 Magy Galeas Intent [facility] Start: 07-01-2021 End: 07-02-2022 [facility] Comment on above: IF patient HAS a [...] End: 30-Jun-2022 Ordered: 30-Jun-2021 Jihan Storm Intent [facility] Start: 06-27-2021 End: 06-28-2022 Sodium Chloride 0.9% Injectable Flush Peripheral Line ; via Peripheral LineVolume = 10 mL IntraVenous Flush Every 8 Hours and as Needed Start: 27-Jun-2021 End: 27-Jun-2022 Ordered: 26-Jun-2021 Magy Galeas Intent [facility] Start: 06-26-2021 Duplex scan of upper limb arteries US arterial duplex UE [facility] Start: 12-17-2020 Annual Wellness Visi t (AWV) Annual Wellness Visit (AWV) [facility] [employer] Start: 11-20-2020 Influenza vaccination Flu vaccine (# 1) [employer] Phone: Start: 07-16-2020 COVID-19 Vaccine (3 - Pfizer risk 3-dose series) COVID-19 Vaccine (3 - Pfizer risk 3-dose series) [employer] Phone: Start: 07-16-2020 COVID-19 Vaccine (3 - Pfizer risk series) COVID-19 Vaccine (3 - Pfizer risk series) [facility] [employer] Start: 10-01-2016 Pneumococcal 65+ yrs at Risk Vaccine (2 of 2 - PCV13) Pneumococcal 65+ yrs at Risk Vaccine (2 of 2 - PCV13) [employer] Phone: Start: 10-10-1993 Shingles Vaccine (1 of 2) Shingles Vaccine (1 of 2) [employer] Phone: Start: 10-10-1962 DTaP/Tdap/Td vaccine (1 - Tdap) DTaP/Tdap/Td vaccine (1 - Tdap) [facility] Start: 10-10-1962 Shingles vaccine (1 of 2) Shingles vaccine (1 of 2) [facility] [employer] Start: 10-10-1961 Hepatitis C screening Hepatitis C [facility] [employer] Start: 1955 Depression Screen Depression Screen [facility] Start: 10-10-1953 [facility]id panel [facility] Start: 1945 Hepatitis C screening [facility] Work Phone: Calcium [Mass/volume ] in Serum or Plasma [facility] Work Phone: Carbon dioxide, tota l [Moles/volume] in Serum or Plasma [facility] Work Phone: Chloride [Moles/volu me] in Serum or Plasma [facility] Work Phone: Creatinine and Glomerular filtration rate.predicted panel - Serum, Plasma or Blood [facility] Work Phone: Culture, Blood [facility] Work Phone: Culture, Wound Culture, Wound Microbiology Routine 04/14/2022 3:25 PM EST LEONID MAY [facility] Work Phone: Glucose [Mass/volume ] in Serum or Plasma [facility] Work Phone: Goals of care, counseling/discussion [facility] Measurement of renal function [facility] Work Phone: Potassium [Moles/volume] in Serum or Plasma [facility] Work Phone: Sodium [Moles/volume ] in Serum or Plasma [facility] Work Phone: Tacrolimus [Mass/volume] in Blood [facility] Work Phone: End: 12-18-2020 Tacrolimus Level [facility] Work Phone: Comment on above: One Time for 1 Occur rences starting 12/18/2020 until 12/18/2020 End: 12-19-2020 Tacrolimus Level Tacrolimus Level Lab Routine One Time for 1 Occurrences starting 12/19/2020 until 12/19/2020 [facility] Work Phone: Comment on above: One Time for 1 Occur rences starting 12/19/2020 until 12/19/2020 Tacrolimus Level [facility] Work Phone: Urea nitrogen [Mass/volume] in Serum or Plasma [facility] Work Phone: Immunizations Immunization Date Immunization Notes Care Provider Fa cility 03-21-2021 Pfizer-BioNTech COVI D-19 Vacc 30 MCG/0.3ML Intramuscular Suspension Michael Carballo Work Phone: WH-Uinotzkeqi-PQV [facility] [address] [place] Work Phone: 06-18-2020 Pfizer-BioNTech COVI D-19 Vacc 30 MCG/0.3ML Intramuscular Suspension Michael Carballo Work Phone: [facility] Work Phone: 05-27-2020 Pfizer-[employer]ers[employer] COVI D-19 Vacc 30 MCG/0.3ML Intramuscular Suspension Michael Candelario Haris Work Phone: [facility] Work Phone: 12-29-2019 Seasonal trivalent influenza vaccine, adjuvanted, preservative free Michael Palomino Haris Work Phone: [facility] Work Phone: 12-22-2017 Seasonal trivalent influenza vaccine, adjuvanted, preservative free Michael Palomino Haris Work Phone: [facility] Work Phone: 12-28-2016 Seasonal trivalent influenza vaccine, adjuvanted, preservative free Michael Palomino Haris Work Phone: [facility] Work Phone: 12-24-2015 influenza, high dose seasonal, preservative-free Michael Palomino Haris Work Phone: [facility] Work Phone: 10-02-2015 influenza, seasonal, injectable Michael Palomino Haris Work Phone: [facility] Work Phone: 10-02-2015 pneumococcal polysaccharide vaccine, 23 valent Michael Palomino Haris Work Phone: [facility] Work Phone: 01-09-2015 influenza, injectabl e, quadrivalent, contains preservative Michael Palomino Haris Work Phone: [facility] Work Phone: 01-03-2013 influenza, seasonal, injectable Michael Palomino Haris Work Phone: [facility] Work Phone: 01-07-2009 influenza virus vacc ine, whole virus Michael Palomino Haris Work Phone: [facility] Work Phone: 01-20-2005 influenza virus vacc ine, whole virus Michael Palomino Carballo Work Phone: [facility] Work Phone: Payers Date Payer Category Payer Self-pay [id number] 1961 Medicaid [id number] 1961 Medicare [id number] 1961 Medicare [id number] 1959 Private Health Insurance [id number] 1943 Unknown [id number] 2.16.8 [id number] 1943 Unknown [id number] 2.16.84 [id number] 1943 Unknown [id number] 2.16.84 [id number] 1943 Unknown [id number] 2.16.84 [id number] 1943 Unknown [id number] 2.16.84 [id number] 1943 Unknown [id number] 2.16.84 [id number] 1943 Unknown [id number] 2.16.84 [id number] 1943 Unknown [id number] 2.16.84 [id number] 1943 Unknown [id number] 2.16. [id number] 1943 Unknown [id number] 2.16. [id number] Unknown Unknown [id number] 2.16.8 [id number] Social History Date Type Detail Facility Former smoker Former smoker [facility] Work Phone: Start: 12-17-2020 Tobacco smoking stat us HIIS Unknown if ever smoked [employer] Work Phone: Start: 1945 Sex Assigned At Not on file M [employer] Work Phone: Exposure to SARS-CoV -2 (event) Unable to assess [employer] Start: 12-13-2020 [facility] Start: 1945 Sex Assigned At Male F [facility] Start: 06-26-2021 End: 06-26-2021 Tobacco smoking status NHIS Ex-smoker (finding) [facility] End: 03-22-1996 History of tobacco use [facility] Work Phone: Goals Date Patient Goal Desired Activity /State Functional Status Date Assessment Result Facility 06-27-2021 Functional status Patient at Baseline [facility] Work Phone: Functional observable [facility] Mental Status Date Assessment Result Facility 06-30-2021 Cognitive functi ons [id number] [facility] 06-27-2021 Cognitive function Cognitive Sta tus Patient at Baseline [facility] Work Phone: Clinical Notes 07-05-2000 to 07-03-2021 <item><item><item><item><item><item><item><item><item> Note Date & Type Note Facility 07-03-2021 Hospital Discharge instructions Activity:activity with assistance. May shower.Labs 1 (Modify Template):Lab Test(s): Basic Metabolic Panel, CBC, Tacrolimus levelDate To Be Drawn: 07/07/2021all Results To: Dr. Felicia Moore Results To: [id number] Orders:Blood Glucose Monitoring: ACHSAdditional Instructions: Use of [...] Uncontrolled diabetesCall to Schedule in: 2 weeksLocation: [facility]: [facility] Up Appointment 2:Physician/Dept/Service: Dr. Felicia Astorga / Heart failure and transplantReason for Referral: hospital follow-upLocation: [place] 1800Comments: Our office will call you to set up an appointment either in person or virtually. [facility] 06-27-2021 Discharge summary Note Date/Time June 27, 2021 10:32am [facility] [address] [place] [address] Discharge Summary Signed Patient: Oliverio Escobedo MR#: [id number] : 1945 Acct:[id number] Age/Sex: 75 / M Adm Date: 2 Loc: 3T Room: [address] [place] [address]: Yoshi Hernandez MD Copies to: MD Manfred Olvera([facility] Providers Date of Discharge: 06/27/21 [...] 1 tab PO BID RF: 0 omega 6-omn-fxj-fish oil [Fish Oil] 1,000 mg (120 mg-180 [...] Yoshi Hernandez MD> 06/27/21 1032 [facility] Work Phone: 1(584) 209-121604-08-2022 Progress note Author Bonilla Ortiz [facility] June 27, 2021 10:27am Note Date/Time June 27, 2021 10:2 7am [facility] [address] [place] [address] Cardiology Progress Note Signed Patient: Oliverio Escobedo MR#: [id number] : 1945 Acct:[id number] Age/Sex: 75 / M Adm Date: 2 Loc: 3T Room: [address] [place] [address] Type : ADM INOo Attending Dr: Yoshi Hernandez MD Copies to: ~ Date of Service: 06/27/2021 Subjective Principal diagnosis: Edema w history of orthotopic heart transplant Interval history: Mr. Escobedo is a 75 year old male with known history of orthotopic heart transplantation in 2000 done at [facility] who was admitted to the inpatient hospitalist service last night after presenting from the [facility] with complaints of increasing swelling in both legs and the right arm for several days. The patient is resting comfortably this morning. He did diurese gently yesterday. He currently has no cardiac complaints. His breathing feels comfortable lying flat at rest. Swelling in both feet and calves is still present. NB: The patient has been accepted by the transplant service at [facility]. At this point we are [...] Agree with transfer to transplant service at [facility] for further management. Plan Thank you very much for this kind consultation and for allowing me to participate in the care of this very pleasant patient. Time spent with patient Time Spent With Patient (min): 20 Documented By: Bonilla Ortiz MD 06/27/21 1024 Signed By: <Electronically signed by Bonilla Ortiz MD> 06/27/21 1027 [facility] Work Phone: 1(900) 708-280804-07-2022 Progress note Author Yoshi Wu [facility] June 26, 2021 6:27pm Note Date/Time June 26, 2021 6:27 pm [facility] [address] [place], [place] [address] Hospitalist Progress Note Signed Patient: Oliverio Escobedo MR#: [id number] : 1945 Acct:[id number] Age/Sex: 75 / M Adm Date: 2 Loc: Room: [address] [place] [address] Type : ADM INOo Attending Dr: Yoshi [...] Oil 1,000 mg 06/26/21 09:00 06/26/21 09:01 [place]-3/Fish Oil 1,000 Mg Capsule PO 06/26/22 08:59 [...] signed by Yoshi Hernandez MD> 06/26/21 182 [facility] Work Phone: 1(701) 616-639204-07-2022 Consult note Author Bonilla Ortiz [facility] June 26, 2021 2:26pm Note Date/Time June 26, 2021 2:23 pm [facility] [address] [place] [address] Cardiology Consult Note Signed Patient: Oliverio Escobedo MR#: [id number] : 1945 Acct:[id number] Age/Sex: 75 / M Adm Date: 2 Loc: 3T Room: [address] [place] [address] Type : ADM INOo Attending Dr: Yoshi Hernandez MD Copies to: MD Manfred Olvera([facility]) DO Bonilla Wilson MD~ Cardiology HPI History of Present Illness Consult Date: 06/26/21 Reason for Consult: Bilateral lower extremity swelling Remote history of orthotopic heart transplantation HPI: Mr. 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 She doesnot know the results. On my evaluation the patient was undergoing bedside transthoracic echocardiography. Preliminary interpretation of the study shows normal resting left ventricular regional wall motion and systolic function. Ejection fraction appears greater than 55%. There is no notable pericardial or pleural effusion. There is no notable/significant valvular heart disease noted. By report the patient's transplant service at [facility] has been contacted and is requested [...] PO BID 02/02/17 [History Confirmed 06/25/21] omega 3-cmh-axv-fish oil 1,000 mg (120 mg-180 mg) capsule [...] x10E3/uL Lymph # (Auto) 1.0 (1.00-4.8) x10E3/uL [place] # (Auto) 0.5 (0.0-0.8) x10E3/uL Eos # [...] Agree with transfer to transplant service at [facility] for further management. Code(s): Z94.1 - Heart transplant status Plan Thank you very much for this kind consultation and for allowing me to participate in the care of this very pleasant patient. Documented By: Bonilla Ortiz MD 06/26/21 1415 Signed By: <Electronically signed by Bonilla Ortiz MD> 06/26/21 1426 [facility] Work Phone: 1(672) 878-866104-07-2022 History and physical note Author Omid Myrick [facility] June 26, 2021 7:44am Note Date/Time June 26, 2021 12:1 6am [facility] [address] [place], [place] [address] Hospitalist H&P Signed Patient: Oliverio Escobedo MR#: [id number] : 1945 Acct:[id number] Age/Sex: 75 / M Adm Date: 2 Loc: 3T Room: [address] [place] [address] Type : ADM INOo Attending Dr: Yoshi Hernandez MD Copies to: MD Manfred Olvera([facility]) DO Audra Wilson APRN Marwan Wassouf, [...] been trying to schedule an appointment with [facility] stitchdown thread laster but were unable. Patient is hard of [...] PO BID 02/02/17 [History Confirmed 06/25/21] omega 3-azg-agp-fish oil 1,000 mg (120 mg-180 mg) capsule [...] % (Auto) 12.9 % (.) 06/25/21 19:30 [place] % (Auto) 7.3 % (.) 06/25/21 19:30 Eos % (Auto) 4.6 % (.) 06/25/21: Baso % (Auto) 0.6 % (.) 06/25/21: Neut # (Auto) 5.6 x10E3/uL (1.8-7.7) 06/25/21 19: Lymph # (Auto) 1.0 x10E3/uL (1.00-4.8) 06/25/21 19:30 [place] # (Auto) 0.5 x10E3/uL (0.0-0.8) 06/25/21 19: [...] MD Documented By: Audra Quinteros APRN 06/25/21 9336 Signed By: <Electronically signed by GABBIE Quinteros> 06/26/21 0057 <Electronically signed by Omid Myrick MD> 06/26/21 0255 [facility] Work Phone: 1(861) 646-505209-30-2021 Evaluation note* Diagnosis Namrata coma scale total score 13-15, at hospital admission- Primary Acute kidney injury (HCC) Acute kidney failure, unspecified Heart replaced by transplant (HCC) Heart replaced by transplant Confusion Unspecified psychosis documented in this encounter [facility] Work Phone: 1(629) 436-722209-30-2021 History of Present illness Narrative* 74 yo [...] Hx/DSAs: None documented * Last echo: 12/20/20 TF-Wivgqfqpzp-CPL [facility] [address] [place] Work Phone: 1(367) 924-435209-28-2021 History of Present illness Narrative* Liliya Baker RN - 12/17/2020 10:31 AM EDT Spoke with nurse from [facility] at this time. They will fax lab work to us from [facility]. documented in this [facility] Work Phone: 1(591) 756-665704-16-2001 History of Present illness Narrative* Mr. Escobedo [...] Hx/DSAs: None documented * Last echo: 12/20/20 KU-Aclilbfsvz-NAM [place] [facility] Work Phone: Chief complaint Narrative - [...] 04:20 PM , for a telehealth visit. SF-Ltarlloisx-ELC [facility] [address] [place] Work Phone: Evaluation noteNo assessment information available [facility] Work Phone: Evaluation note* Diagnosis Onset Date Resolution Status Acute kidney injury acute Bilateral edema of lower extremity acute Shortness of breath acute [facility] Work Phone: Evaluation note* Diagnosis Onset Date Resolution Status Acute kidney injury acute Bilateral edema of lower extremity acute History of heart transplant acute Shortness of breath acute [facility] Work Phone: Evaluation note* Psychological: [...] distress, alert and cooperative, hard of hearing [facility] (formerly [facility])History of Present illness Narrative* Mr. Escobedo is [...] Hx/DSAs: None documented * Last echo: 12/20/20 [id number] [employer] [address] [place] Work Phone: History of Present [...] Hx/DSAs: None documented * Last echo: 12/20/20 UV-Tenqhjaxlm-OZE [employer] [address] [place] Work Phone: History of Present [...] Hx/DSAs: None documented * Last echo: 12/20/20 KK-Nrbafpuleo-HYR Heather Vallecillo [address] [place] Work Phone: History [...] Hx/DSAs: None documented * Last echo: 12/20/20 GP-Vwpxgecvgn-GCV Heather Vallecillo [address] [place] Work Phone: History [...] office visit; documented BPs at the [facility] 120-130s/70-80s. * Benadryl 25 mg q6h PRN for itching/dry skin. * Immunosuppression: MMF 250 mg BID, tacrolimus 1.5 mg BID (FK 5.5 on 07/03/21, goal 5-8) - FK level pending from 10/11/21 * Rejection Hx/DSAs: None documented * Last echo: 12/20/20 WR-Byhpmwpxmq-DHK Heather Vallecillo [address] [place] Work Phone: Reason for referral (narrative)* Reason for Referral: HF, DAVID, scabies [facility] ([facility] Family History No Family History Records FoundUnknown [...] content) Reason Comments Altered Mental Status onset RECREATIONAL COUNSELOR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; staff state pt would not respond and stared off into space Hypotension RECREATIONAL COUNSELOR staff from [facility] rn state BP 70s/ANGELICA diastolic [...] Sola Dee RN)2128 (Given - Provider: Minesh Zhneg RN) 1029 (Given - Provider: Minesh Zheng [...] is suspension with MINIMUM of SIZE 8 PANAMANIAN 1500 (Given - Provider: Sola Dee RN)2128 [...] Active Yoshi Hernandez MD Attending Provider Active 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 DATE CREATED AUTHOR AUTHOR'S ORGANIZ ATION 04/18/2022 [facility] DATE CREATED AUTHOR AUTHOR'S ORGANIZ ATION 07/17/2022 [employer] DATE CREATED AUTHOR AUTHOR'S ORGANIZ ATION 07/31/2022 [facility] DATE CREATED AUTHOR AUTHOR'S ORGANIZ ATION 09/07/2022 [facility] DATE CREATED AUTHOR AUTHOR'S ORGANIZ ATION 09/14/2022 [facility] DATE CREATED AUTHOR AUTHOR'S ORGANIZ ATION 11/21/2022 [facility] FOR RECORDS PERTAINING TO PATIENTS WHO [...] BE BASED ON THE PRIMARY CLINICAL RECORDS. [facility]. provides no warranty or guarantee of the accuracy or completeness of information in this document.
[2023-11-25] MEDS: ONDANSETRON PF 4 MG/2 ML VIAL IV (06:48)
[2023-11-25] MEDS: MORPHINE SULFATE 4 MG/ML VIAL IV (06:49)
--- NOTE | 2023-11-25 06:49 | ED_ITS ---
HPI - SOB/Dyspnea General Chief Complaint: Shortness of Breath/Dyspnea Stated Complaint: CHEST PAIN Time Seen by Provider: 11/25/23 06:38 Source: family and other Source comment: EMS Mode of arrival: ambulance Limitations: altered mental status and physical limitation History of Present Illness HPI Narrative: This 78-year-old male who is status post heart transplant 20 years ago and has a history of congestive heart failure and was recently made DNR comfort care was [facility] for evaluation of shortness of breath. The patient was last seen around 2:30 AM and apparently was at his normal baseline status at that time. The patient's and daughter states that he has been going downhill for the past several weeks which is why the decision was made to make him comfort care and most recently a hospice consult was being considered. EMS called to report that the patient was an extremis with respiratory distress, poorly responsive with hypoxia and hypotension. EMS had called the family to come to the emergency department prior to him arriving here and the family met him here. They are aware of his critical situation. Related Data Home Medications ?Medication ?Instructions ?Recorded ?Confirmed aspirin 81 mg tablet,delayed 81 mg PO DAILY 11/03/23 11/03/23 release (Adult Low Dose Aspirin) atorvastatin 80 mg tablet 80 mg PO .QHS 11/03/23 11/03/23 buspirone 10 mg tablet 10 mg PO BID 11/03/23 11/03/23 calcitonin (salmon) 200 1 spray intranasal DAILY 11/03/23 11/03/23 unit/actuation nasal spray carbidopa 25 mg-levodopa 100 mg 1.5 tab PO TID 11/03/23 11/03/23 tablet cholecalciferol (vitamin D3) 25 25 mcg PO DAILY 11/03/23 11/04/23 mcg (1,000 unit) capsule clonidine HCl 0.2 mg tablet 0.2 mg PO Q12H 11/03/23 11/03/23 clopidogrel 75 mg tablet 75 mg PO DAILY 11/03/23 11/03/23 diltiazem HCl 300 mg 300 mg PO .QHS 11/03/23 11/03/23 capsule,extended release 24 hr docusate sodium 100 mg capsule 100 mg PO BID 11/03/23 11/03/23 hydralazine 100 mg tablet 100 mg PO Q8H 11/03/23 11/03/23 acetaminophen 325 mg tablet 650 mg PO Q4H PRN fever or pain 11/04/23 11/04/23 alendronate 35 mg tablet 35 mg PO QWEEK 11/04/23 11/04/23 bisacodyl 10 mg rectal suppository 10 mg IA DAILY PRN constipation 11/04/23 11/04/23 (Dulcolax (bisacodyl)) calcium carbonate 500 mg-vitamin 1 tab PO BID 11/04/23 11/04/23 D3 5 mcg (200 unit) tablet (Calcium 500 + D) diphenhydramine-zinc acetate 2 1 applic topical QID PRN itching 11/04/23 11/04/23 %-0.1 % topical cream (Anti-Itch (diphenhydramine) with Zinc) fluocinonide 0.05 % topical 1 applic topical BID PRN rash 11/04/23 11/04/23 solution insulin glargine-yfgn 100 unit/mL 55 unit subcut BID 11/04/23 11/04/23 (3 mL) subcutaneous pen insulin lispro 100 unit/mL 4 - 14 unit subcut ACHS 11/04/23 11/04/23 subcutaneous pen isosorbide mononitrate 120 mg 120 mg PO DAILY 11/04/23 11/04/23 tablet,extended release 24 hr levothyroxine 100 mcg tablet 100 mcg PO .ACB 11/04/23 11/04/23 magnesium hydroxide 400 mg/5 mL 30 ml PO DAILY PRN constipation 11/04/23 11/04/23 oral suspension (Milk of Magnesia) magnesium oxide 400 mg PO BID 11/04/23 11/04/23 melatonin 1 mg tablet 2 mg PO .QHS 11/04/23 11/04/23 mycophenolate mofetil 250 mg 250 mg PO BID 11/04/23 11/04/23 capsule omega-3 fatty acids-fish oil 340 1 cap PO BID 11/04/23 11/04/23 mg-1,000 mg capsule pantoprazole 40 mg tablet,delayed 40 mg PO DAILY 11/04/23 11/04/23 release polyethylene glycol 3350 17 gram 17 g PO DAILY PRN constipation 11/04/23 11/04/23 oral powder packet (ClearLax) pramoxine 1 % topical cream 1 applic topical .QHS 11/04/23 11/04/23 (CeraVe Itch Relief) sertraline 100 mg tablet 100 mg PO .QHS 11/04/23 11/04/23 simethicone 80 mg chewable tablet 80 mg PO QID PRN abdominal 11/04/23 11/04/23 (Gas Relief 80 (simethicone)) distention tacrolimus 1 mg capsule, 1 mg PO BID 11/04/23 11/04/23 immediate-release triamcinolone acetonide 0.1 % 1 applic topical DAILY 11/04/23 11/04/23 topical cream triamcinolone acetonide 0.1 % 1 applic topical BID PRN itching 11/04/23 11/04/23 topical ointment Allergies Allergy/AdvReac Type Severity Reaction Status Date / Time allopurinol AdvReac Intermediate Verified 04/14/23 18:08 cefazolin AdvReac Intermediate Verified 04/14/23 18:08 Review of Systems 2 ROS Status of ROS 10 or more systems reviewed and unremark able except as noted in history and below [facility] Medical History (Updated 11/25/23 @ 06:56 by Leola Gómez MD) Adult idiopathic generalized osteoporosis ?M81.8 - Other osteoporosis without current pathological fracture (ICD-10) High cholesterol ?E78.00 - Pure hypercholesterolemia, unspecified (ICD-10) Anxiety ?F41.9 - Anxiety disorder, unspecified (ICD-10) Psoriasis ?L40.9 - Psoriasis, unspecified (ICD-10) GERD (gastroesophageal reflux disease) ?K21.9 - Gastro-esophageal reflux disease without esophagitis (ICD-10) Depression ?F32.A - Depression, unspecified (ICD-10) Thyroid disease ?E07.9 - Disorder of thyroid, unspecified (ICD-10) HTN (hypertension) ?I10 - Essential (primary) hypertension (ICD-10) 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, 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) CHF (congestive heart failure) ?I50.9 - Heart failure, unspecified (ICD-10) Dysphagia ?R13.10 - Dysphagia, unspecified (ICD-10) Diabetes ?E11.9 - Type 2 diabetes mellitus without complications (ICD-10) AMS (altered mental status) ?R41.82 - Altered mental status, unspecified (ICD-10) DAVID (acute kidney injury) ?N17.9 - Acute kidney failure, unspecified (ICD-10) CVA (cerebral vascular accident) ?I63.9 - Cerebral infarction, unspecified (ICD-10) Parkinson disease ?G20.A1 - Parkinson's disease without dyskinesia, without mention of fluctuations (ICD-10) Surgical History (Updated 11/03/23 @ 18:14 by Nubia Joy) Heart transplanted ?Z94.1 - Heart transplant status (ICD-10) Social History Highest level of school completed/degree received: 9th grade Exam Narrative Exam Narrative: Vital signs and Nursing Notes reviewed: Afebrile with a normal pulse, normal blood pressure, he was hypoxic upon arrival with pulse ox in the mid 80s, increased to 95% on BiPAP General: Chronically ill-appearing obese male with respiratory distress and white frothy material in his oropharynx-he did open his eyes when his daughter went to his bedside HEENT: Normocephalic atraumatic, mucous membranes are moist and pink, eyes are clear Chest: Bilateral rhonchi from apex to base with respiratory distress, tachypnea and accessory muscle use-large healed anterior chest wall and sternotomy incis ion CVS: Regular rate and rhythm, poor perfusion with pulses difficult to palpate ABD: Softly distended, obese Extremities: Diffuse edema of upper and lower extremities Skin: Flushed, pink Constitutional Vital Signs, click to edit/add: Last Vital Signs Temp 97.3 F L 11/25/23 06:40 Pulse 88 11/25/23 06:32 Resp 30 H 11/25/23 06:32 BP 125/65 11/25/23 06:32 Pulse Ox 95 11/25/23 06:32 O2 Del Method BIPAP 11/25/23 06:32 Course Vital Signs Vital signs: Vital Signs Temperature 96.9 F L 11/25/23 06:32 Pulse Rate 88 11/25/23 06:32 Respiratory Rate 30 H 11/25/23 06:32 Blood Pressure 125/65 11/25/23 06:32 Pulse Oximetry 95 11/25/23 06:32 Oxygen Delivery Method BIPAP 11/25/23 06:32 Temperature 97.3 F L 11/25/23 06:40 Pulse Rate 88 11/25/23 06:32 Respiratory Rate 30 H 11/25/23 06:32 Blood Pressure 125/65 11/25/23 06:32 Pulse Oximetry 95 11/25/23 06:32 Oxygen Delivery Method BIPAP 11/25/23 06:32 MDM - SOB/Dyspnea MDM Narrative Medical decision making narrative: Patient's airway was suctioned upon arrival as he had profuse white frothy sputum in his mouth and nasopharynx. He was placed on BiPAP with mild clinical improvement. He was medicated with 4 mg of IV morphine and 4 mg of IV Zofran. ECG Data Attestation: I personally reviewed and interpreted this ECG as follows: (Rapid atrial rhythm versus sinus rhythm with first-degree AV block at 82 bpm, right axis, occasional PVCs, no acute ST segment elevation or T wave inversion) Discharge Plan Discharge Chief Complaint: Shortness of Breath/Dyspnea Clinical Impression: Acute respiratory distress Patient Disposition: Still a Patient Prescriptions / Home Meds: No Action atorvastatin 80 mg tablet 80 mg PO .QHS buspirone 10 mg tablet 10 mg PO BID calcitonin (salmon) 200 unit/actuation spray,non-aerosol 1 spray intranasal DAILY Patient Comments: ALTERNATE NOSTRILS carbidopa-levodopa 25-100 mg tablet 1.5 tab PO TID cholecalciferol (vitamin D3) 25 mcg (1,000 unit) capsule 25 mcg PO DAILY clonidine HCl 0.2 mg tablet 0.2 mg PO Q12H clopidogrel 75 mg tablet 75 mg PO DAILY diltiazem HCl 300 mg capsule,extended release 24hr 300 mg PO .QHS docusate sodium 100 mg capsule 100 mg PO BID hydralazine 100 mg tablet 100 mg PO Q8H aspirin [Adult Low Dose Aspirin] 81 mg tablet,delayed release (DR/EC) 81 mg PO DAILY acetaminophen 325 mg tablet 650 mg PO Q4H PRN (Reason: fever or pain) bisacodyl [Dulcolax (bisacodyl)] 10 mg suppository 10 mg IA DAILY PRN (Reason: constipation) insulin glargine-yfgn 100 unit/mL (3 mL) insulin pen 55 unit subcut BID isosorbide mononitrate 120 mg tablet extended release 24 hr 120 mg PO DAILY levothyroxine 100 mcg tablet 100 mcg PO .ACB magnesium oxide 400 mg magnesium tablet 400 mg PO BID melatonin 1 mg tablet 2 mg PO .QHS magnesium hydroxide [Milk of Magnesia] 400 mg/5 mL suspension 30 ml PO DAILY PRN (Reason: constipation) mycophenolate mofetil 250 mg capsule 250 mg PO BID pantoprazole 40 mg tablet,delayed release (DR/EC) 40 mg PO DAILY polyethylene glycol 3350 [ClearLax] 17 gram powder in packet 17 g PO DAILY PRN (Reason: constipation) sertraline 100 mg tablet 100 mg PO .QHS tacrolimus 1 mg capsule 1 mg PO BID triamcinolone acetonide 0.1 % cream 1 applic TOPICAL DAILY triamcinolone acetonide 0.1 % ointment 1 applic TOPICAL BID PRN (Reason: itching) simethicone [Gas Relief 80 (simethicone)] 80 mg tablet,chewable 80 mg PO QID PRN (Reason: abdominal distention) calcium carbonate-vitamin D3 [Calcium 500 + D] 500 mg-5 mcg (200 unit) tablet 1 tab PO BID alendronate 35 mg tablet 35 mg PO QWEEK insulin lispro 100 unit/mL insulin pen 4 - 14 unit SUBCUT ACHS Rx Instructions: 150-200 4 UNITS 201-250 6 UNITS 251-300 8 UNITS 301-350 10 UNITS 351-400 12 UNITS 401-450 14 UNITS omega-3 fatty acids-fish oil 340-1,000 mg capsule 1 cap PO BID fluocinonide 0.05 % solution 1 applic topical BID PRN (Reason: rash) Rx Instructions: ON SCALP CeraVe Itch Relief 1 % cream 1 applic topical .QHS Anti-Itch(diphenhyd) with Zinc 2-0.1 % cream 1 applic topical QID PRN (Reason: itching) Print Language: Upper Sorbian Referrals: SUZI RICHEY [Primary Care Provider] - 1 week
[2023-11-25] MEDS: LORAZEPAM 2 MG/ML VIAL 1 MG IV ×2 (07:08→08:39)
--- NOTE | 2023-11-25 08:36 | PC.NURSE ---
pt had 30 sec episode of seizure-like activity -- shaking on L side, mostly just arms. no distress noted. Pt does not have any secretions coming out of mouth. daughter and still at bedside
--- OUTSIDE RECORDS SUMMARY | 2023-11-25 09:00 | XMS_ITS | CCD ---
Author Organization [facility] Care Team Providers Care Pit Boss Name Role Phone Michael Carballo Unavailable Unavailable Unavailable Michael Carballo Primary Care Provider MD Michael Carballo Primary Care Provider JIL Davies Attending Provider DO Manfred Wilson Primary Care Provider [facility] DO Andrew Hernández Emergency Provider MD Omid Myrick Admit Provider MD Omid Myrick Attending Provider [phone] Al MD Yoshi Campoverde Attending Provider Michael Carballo Unavailable DionPascual wheataashish Unavailable Palliative Care Unavailable Unavailable Gene Shook Unavailable Felicia Astorga Unavailable [phone] Michael Carballo Primary Care Provider DONNA [...] sources) Allopurinol; Translations: [allopurinol] Drug Allergy 10-16-2018 [facility] (8 sources) ceFAZolin; Translations: [Cefazolin] Drug Allergy 06-25-2021 Rash, [facility] Comment on above: extensive fiery red and warm flat rash (1 source) Allopurinol Drug Allergy [facility] (1 source) ceFAZolin Drug Allergy [facility] (1 source) Allopurinol Drug Allergy 06-25-2021 [facility] Repository Medications Current Medications Medication Drug [...] mg Start: 11-03-2018 take 1 capsule by [facility] once daily in the evening dilTIAZem HCl ER Coated Beads 300 MG Oral Capsule Extended Release 24 Hour take 1 capsule every evening Quantity: 0 Refills: 0 Ordered: 04-Jul-2021 Felicia Astorga DO Start : 03-Nov-2018 Active Start: 11-03-2018 take 1 capsule by [facility] once daily dilTIAZem HCl ER Coated Beads 360 MG Oral Capsule Extended Release 24 Hour TAKE 1 CAPSULE Daily Quantity: 30 Refills: 11 Ordered: 03-Nov-2018 Felicia Astorga DO Start : 03-Nov-2018 Active Start: 11-03-2018 take 1 capsule by [facility] once daily dilTIAZem HCl ER Coated Beads 240 MG Oral Capsule Extended Release 24 Hour TAKE 1 CAPSULE Daily Quantity: 90 Refills: 3 Ordered: 24-Dec-2020 Felicia Astorga DO Start : 03-Nov-2018 Active Start: 10-31-2018 take 1 capsule by [facility] every twenty-four hours dilTIAZem 240 mg/24 [...] mg Start: 11-02-2018 take 1 capsule by [facility] every twelve hours Mycophenolate Mofetil 250 [...] Tamiko Dsouza Status: Discontinued Generic Substitution Allowed Dozier 2-Ntb-Yga-Fish Oil (Fish Oil) 1,000 mg (120 mg-180 mg) Capsule (4 sources) Start: 08-05-2017 take 1 tablet by mouth twice daily Dozier 2-Mjz-Xtx-Fish Oil (Fish Oil) 1,000 mg (120 mg-180 mg) Capsule Active 1 TAB PO Twice daily August 05, 2017 11:13am Start: 08-05-2017 take 1 tablet by anila th once daily Dozier 7-Pok-Fie-Fish Oil (Fish Oil) 1,000 mg (120 mg-180 mg) Capsule Active 1 TAB PO Daily August 05, 2017 11:13am Start: 08-05-2017 take 1 tablet by anila th twice daily Dozier 3-Dpx-Fvb-Fish Oil (Fish Oil) 1,000 mg (120 mg-180 [...] tube 2 times a day only on Zsqrrr-Oiizmmlig-Zgdgmn Quantity: 24 Refills: 0 Ordered: 21-Jan-2016 Warren [...] damage. take 2 tablets by mo [facility] every six hours as needed for [...] 10-15-2021 take 2 tablets by mo [facility] once daily busPIRone HCl - 10 MG Oral Tablet TAKE 2 TABLET Daily Quantity: 0 Refills: 0 Ordered: 15-Oct-2021 DO Start : 15-Oct-2021 Active [facility] busPIRone (BUSPAR) 15 MG tablet [...] Allowed Start: 10-31-2018 take 1 capsule by [facility] every six hours as needed diphenhydrAMINE [...] 1 capsule by mouth twice da padmaja Dozier-3 Fatty Acids (FISH OIL) 1000 MG CAPS [...] if Blood Glucose is between 251 - 18292 unit(s) if Blood Glucose is between 301 - 63845 unit(s) if Blood Glucose is between 351 [...] if Blood glucose is between 301 - 76148 unit(s) if Blood glucose is between 351 [...] 02-Jul-2021 Generic Substitution Allowed polyethylene glycol 3350 38602 mg powder for oral solution (7 sources) Osmotic Laxative Start: 10-15-2021 MiraLax Mix-I n [place] 17 GM Oral Packet MIX 1 PACKET [...] Allowed Start: 07-02-2021 take 1 capsule by [facility] every twelve hours Tacrolimus 1 MG [...] (1 source) Namrata coma scale finding; Translations: [[place] coma scale score 13-15, at hospital admission] [...] right upper extremity 06-30-2021 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 (1 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 07-02-2021 Past or Other Problems Problem Classification Problem Date Documented Da te Episodic/Chronic Other gastrointestinal disorders (1 source) Dysphagia, unspecified; Translations: [DYSPHAGIA UNSPECIFIED] Onset: 08-08-2021 Episodic 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 (1 source) SWELLING UPPER/LOW EXTREMITIES 06-27-2021 Comment on above: SWELLING UPPER/LOW E XTREMITIES Results Test Name Value Interpretation Reference Range Facility [facility] 09-14-2022 Lab Reports [id number]:127 Normal [facility] VIT D 25-OH LABCORPon 2022 Vitamin D, 25-Hydroxy 29.5 ng/mL Critically low 30.0-100.0 [facility] Comment on above: Result Comment: Jennifer min D deficiency has been defined by the [place] of [employer] and an Endocrine Society practice guideline as a level of serum 25-OH vitamin D less than 20 ng/mL (1,2). The Endocrine Society went on to further define vitamin D insufficiency as a level between 21 and 29 ng/mL (2). 1. IOM ([place] [employer]). 2010. Dietary reference intakes for calcium and D. [place]: The National Academies Press. 2. Ely MF, Brad NC, Kristy ORTEGA, et al. Evaluation, treatment, and prevention of vitamin D deficiency: an Endocrine Society clinical practice guideline. JCEM. 2010; 96(7):1911-30. Performed By: #### V ITADLC #### [facility] [address] [place] [address] Dr. Ronnie Pennington CBC AUTO DIFFon 07-24-2022 BASO # 0.0 103/ul Normal 0.0-0.1 [facility] Comment on above: Performed By: #### C BC #### [facility] [id number] Ronnie Pennington Basophils/100 WBC (Bld) 0.6 % Normal 0.2-2.0 [facility] Comment on above: Performed By: #### C BC #### [facility] [address] [address] [address] Ronnie Pennington EO # 0.1 103/ul Normal 0.0-0.7 [facility] Comment on above: Performed By: #### C BC #### [facility] [address] [address] [address] Ronnie Pennington Eosinophils/100 WBC (Bld) 2.0 % Normal 0.9-7.0 [facility] Comment on above: Performed By: #### C BC #### [facility] [address] [place] [address] Dr. Ronnie Pennington Erythrocyte distribution width (RBC) [Ratio] 13.2 % Normal 11.0-15.0 [facility] Comment on above: Performed By: #### C BC #### [facility] [address] [place] [address] Dr. Ronnie Pennington Hematocrit (Bld) [Volume fraction] 33.3 % Critically low 42.0-54.0 [facility] Comment on above: Performed By: #### C BC #### [facility] [address] [place] [address] Dr. Ronnie Pennington Hemoglobin (Bld) [Mass/Vol] 10.0 g/dL Critically low 14.0-18.0 [facility] Comment on above: Performed By: #### C BC #### [facility] [address] [address] [address] Ronnie Pennington IG # 0.04 10e3/ul Critically high 0.00-0.03 [facility] Comment on above: Performed By: #### C BC #### [facility] [address] [address] [address] Ronnie Pennington IG % 0.6 % Critically high 0.0-0.5 [facility] Comment on above: Performed By: #### C BC #### [facility] [address] [place] [address] Dr. Ronnie Pennington LYMPH # 1.2 103/ul Normal 1.2-3.8 [facility] Comment on above: Performed By: #### C BC #### [facility] [address] [place] [address] Dr. Ronnie Pennnigton Lymphocytes/100 WBC (Bld) 17.9 % Critically low 20.5-60.0 [facility] Comment on above: Performed By: #### C BC #### [facility] [address] [place] [address] Dr. Ronnie Pennington MANUAL DIFF REQ NO Normal [facility] Comment on above: Performed By: #### C BC #### [facility] [address] [place] [address] Dr. Ronnie Pennington MCH (RBC) [Entitic mass] 28.2 pg Normal 25.9-34.0 [facility] Comment on above: Performed By: #### C BC #### [facility] [address] [place] [address] Dr. Ronnie Pennington MCHC (RBC) [Mass/Vol] 30.0 g/dL Normal 29.9-35.2 [facility] Comment on above: Performed By: #### C BC #### [facility] [address] [place] [address] Dr. Ronnie Pennington MCV (RBC) [Entitic vol] 94.1 fL Critically high 80.0-94 .0 [facility] Comment on above: Performed By: #### C BC #### [facility] [address] [place] [address] Dr. Ronnie Pennington MONO # 0.4 103/ul Normal 0.3-0.8 [facility] Comment on above: Performed By: #### C BC #### [facility] [address] [place] [address] Dr. Ronnie Pennington Monocytes/100 WBC (Bld) 6.5 % Normal 1.7-12.0 [facility] Comment on above: Performed By: #### C BC #### [facility] [address] [place], [place] [id number] Dr. Ronnie Pennington NEUT # 4.8 103/ul Normal 1.4-6.5 [facility] Comment on above: Performed By: #### C BC #### [facility] [address] [place] [address] Dr. Ronnie Pennington Neutrophils/100 WBC (Bld) 72.4 % Normal 43.0-75.0 [facility] Comment on above: Performed By: #### C BC #### [facility] [address] [place] [address] Dr. Ronnie Pennington Platelet mean volume (Bld) [Entitic vol] 11.7 fL Normal 9.5-13.5 [facility] Comment on above: Performed By: #### C BC #### [facility] [address] [place] [address] Dr. Ronnie Pennington PLT 137 103/ul Critically low 150-450 [facility] Comment on above: Performed By: #### C BC #### [facility] [address] [place] [address] Dr. Ronnie Pennington RBC 3.54 106/ul Critically low 4.70-6.10 [facility] Comment on above: Performed By: #### C BC #### [facility] [address] [place] [address] Dr. Ronnie Pennington WBC 6.6 103/ul Normal 4.0-11.0 [facility] Comment on above: Performed By: #### C BC #### [facility] [address] [place] [address] Dr. Ronnie Pennington GLYCOHEMOGLOBIN A1Con 2022 ADA RECOMMENDATION SEE BELOW Normal [facility] Comment on above: Result Comment: ADA RECOMMENDED LIMIT 4.0 - 6.0 ADA THERAPEUTIC TARGET < 7.0 ACTION SUGGESTED > 7.0 Performed By: #### A 1C #### [facility] [address] [place] [address] Dr. Ronnie Pennington Glucose [Mass/Vol] 171 mg/dL Normal [facility] Comment on above: Performed By: #### A 1C #### [facility] [address] [place] [address] Dr. Ronnie Pennington HbA1c (Bld) [Mass fraction] 7.6 % Critically high 4.5-6.2 [facility] Comment on above: Performed By: #### A 1C #### [facility] [address] [address] [address] Ronnie Pennington MAGNESIUMon 07-24-2022 Magnesium [Mass/Vol] 2.3 mg/dL Normal 1.8-2.4 [facility] Comment on above: Performed By: #### M G, TSH, CMP ####[facility] [address] [address]DrFreddy Pennington PROF 14(COMP METB)on 023 Albumin [Mass/Vol] 2.8 g/dL Critically low 3.4-5.0 [facility] Comment on above: Performed By: #### M G, TSH, CMP ####[facility] [address] [address]DrFreddy Pennington Albumin/Globulin [Mass ratio] 0.7 {ratio} Normal [facility] Comment on above: Performed By: #### M G, TSH, CMP ####[facility] [address] [address]Dr. Ronnie Pennington ALP [Catalytic activity/Vol] 69 U/L Normal 46-116 [facility] Comment on above: Performed By: #### M G, TSH, CMP ####[facility] [address] [address]DrFreddy Pennington ALT [Catalytic activity/Vol] 8 U/L Critically low 16-63 [facility] Comment on above: Performed By: #### M G, TSH, CMP ####[facility] [address] [id number]. Ronnie Pennington Anion gap [Moles/Vol] 9.9 mmol/L Normal [facility] Comment on above: Performed By: #### M G, TSH, CMP ####[facility] [address] [address]Dr. Ronnie Pennington AST [Catalytic activity/Vol] 9 U/L Critically low 15-37 [facility] Comment on above: Performed By: #### M G, TSH, CMP ####[facility] [address] [address]Dr. Ronnie Pennington Bilirubin [Mass/Vol] 0.2 mg/dL Normal 0.2-1.0 [facility] Comment on above: Performed By: #### M G, TSH, CMP ####[facility] [address] [place], [place] [address]Dr. Ronnie Pennington Calcium [Mass/Vol] 8.9 mg/dL Normal 8.5-10.1 [facility] Comment on above: Performed By: #### M G, TSH, CMP ####[facility] [address] [place], [place] [address]Dr. Ronnie Pennington Chloride [Moles/Vol] 104 mmol/L Normal 98-107 [facility] Comment on above: Performed By: #### M G, TSH, CMP ####[facility] [address] [place], [place] [address]Dr. Ronnie Pennington CO2 [Moles/Vol] 28.4 mmol/L Normal 21.0-32.0 [facility] Comment on above: Performed By: #### M G, TSH, CMP ####[facility] [address] [place], [place] [address]Dr. Ronnie Pennington Creatinine [Mass/Vol] 2.09 mg/dL Critically high 0.70-1.30 [facility] Comment on above: Performed By: #### M G, TSH, CMP ####[facility] [address] [place], [place] [address]Dr. Ronnie Pennington EGFR-AF TUNISIAN 37 mL/min/1.73m2 Critically low >=60 [facility] Comment on above: Performed By: #### M G, TSH, CMP ####[facility] [address] [place], [place] [address]Dr. Ronnie Pennington EGFR-NON AF TUNISIAN 31 mL/min/1.73m2 Critically low >=60 [facility] Comment on above: Performed By: #### M G, TSH, CMP ####[facility] [address] [id number]. Ronnie Pennington Globulin (S) [Mass/Vol] 3.9 g/dL Normal [facility] Comment on above: Performed By: #### M G, TSH, CMP ####[facility] [address] [address]Dr. Ronnie Pennington Glucose [Mass/Vol] 165 mg/dL Critically high 74-106 [facility] Comment on above: Performed By: #### M G, TSH, CMP ####[facility] [address] [address]Dr. Ronnie Pennington Potassium [Moles/Vol] 4.3 mmol/L Normal 3.5-5.1 [facility] Comment on above: Performed By: #### M G, TSH, CMP ####[facility] [address] [place], [place] [address]Dr. Ronnie Pennington Protein [Mass/Vol] 6.7 g/dL Normal 6.4-8.2 [facility] Comment on above: Performed By: #### M G, TSH, CMP ####[facility] [address] [place], [place] [address]Dr. Ronnie Pennington Sodium [Moles/Vol] 138 mmol/L Normal 136-145 [facility] Comment on above: Performed By: #### M G, TSH, CMP ####[facility] [address] [place], [place] [address]Dr. Ronnie Pennington Urea nitrogen [Mass/Vol] 33.0 mg/dL Critically high 7.0-18.0 [facility] Comment on above: Performed By: #### M G, TSH, CMP ####[facility] [address] [place], [place] [address]Dr. Ronnie Pennington Urea nitrogen/Creatinine [Mass ratio] 15.8 mg/mg Normal [facility] Comment on above: Performed By: #### M G, TSH, CMP ####[facility] [address] [place], [place] [address]Dr. Ronnie Gorge TSHon 07-24-2022 TSH 2.763 uIU/mL Normal 0.358-3.74 0 [facility] Comment on above: Performed By: #### M G, TSH, CMP ####[facility] [address] [address]Dr. Ronnie Pennington FK506 (TACROLIMUS) WHOLE BLO ODon 07-15-2022 Tacrolimus (FK506), Blood 9.4 ng/mL Normal 2.0-20.0 [facility] Comment on above: Result Comment: Trou gh (immediately following transplant) 15.0 . Trough (steady state, 2 weeks or more after transplant): 3.0 - 8.0 . Performed by LC-MS/MS technology. Performed By: #### F K506T #### [facility] [address] [place] [address] Dr. Ronnie Pennington CBC AUTO DIFFon 07-13-2022 BASO # 0.0 103/ul Normal 0.0-0.1 [facility] Comment on above: Performed By: #### C BC #### [facility] [address] [place] [address] Dr. Ronnie Pennington Basophils/100 WBC (Bld) 0.3 % Normal 0.2-2.0 [facility] Comment on above: Performed By: #### C BC #### [facility] [address] [place] [address] Dr. Ronnie Pennington EO # 0.2 103/ul Normal 0.0-0.7 [facility] Comment on above: Performed By: #### C BC #### [facility] [address] [place] [address] Dr. Ronnie Pennington Eosinophils/100 WBC (Bld) 2.5 % Normal 0.9-7.0 [facility] Comment on above: Performed By: #### C BC #### [facility] [address] [place] [address] Dr. Ronnie Pennington Erythrocyte distribution width (RBC) [Ratio] 13.1 % Normal 11.0-15.0 [facility] Comment on above: Performed By: #### C BC #### [facility] [address] [place] [address] Dr. Ronnie Pennington Hematocrit (Bld) [Volume fraction] 33.4 % Critically low 42.0-54.0 [facility] Comment on above: Performed By: #### C BC #### [facility] [address] [place] [address] Dr. Ronnie Pennington Hemoglobin (Bld) [Mass/Vol] 10.4 g/dL Critically low 14.0-18.0 [facility] Comment on above: Performed By: #### C BC #### [facility] [address] [address] [address] Ronnie Pennington IG # 0.04 10e3/ul Critically high 0.00-0.03 [facility] Comment on above: Performed By: #### C BC #### [facility] [address] [place] [address] Dr. Ronnie Pennington IG % 0.6 % Critically high 0.0-0.5 [facility] Comment on above: Performed By: #### C BC #### [facility] [address] [place] [address] Dr. Ronnie Pennington LYMPH # 1.2 103/ul Normal 1.2-3.8 [facility] Comment on above: Performed By: #### C BC #### [facility] [address] [place] [address] Dr. Ronnie Pennington Lymphocytes/100 WBC (Bld) 16.8 % Critically low 20.5-60.0 [facility] Comment on above: Performed By: #### C BC #### [facility] [address] [place] [address] Dr. Ronnie Pennington MANUAL DIFF REQ NO Normal [facility] Comment on above: Performed By: #### C BC #### [facility] [address] [place] [address] Dr. Ronnie Pennington MCH (RBC) [Entitic mass] 28.5 pg Normal 25.9-34.0 [facility] Comment on above: Performed By: #### C BC #### [facility] [address] [place] [address] Dr. Ronnie Pennington MCHC (RBC) [Mass/Vol] 31.1 g/dL Normal 29.9-35.2 [facility] Comment on above: Performed By: #### C BC #### [facility] [address] [place] [address] Dr. Ronnie Pennington MCV (RBC) [Entitic vol] 91.5 fL Normal 80.0-94.0 [facility] Comment on above: Performed By: #### C BC #### [facility] [address] [place] [address] Dr. Ronnie Pennington MONO # 0.5 103/ul Normal 0.3-0.8 [facility] Comment on above: Performed By: #### C BC #### [facility] [address] [place] [address] Dr. Ronnie Pennington Monocytes/100 WBC (Bld) 7.5 % Normal 1.7-12.0 [facility] Comment on above: Performed By: #### C BC #### [facility] [address] [place] [address] Dr. Ronnie Pennington NEUT # 5.0 103/ul Normal 1.4-6.5 [facility] Comment on above: Performed By: #### C BC #### [facility] [address] [place] [address] Dr. Ronnie Pennington Neutrophils/100 WBC (Bld) 72.3 % Normal 43.0-75.0 [facility] Comment on above: Performed By: #### C BC #### [facility] [address] [place] [address] Dr. Ronnie Pennington Platelet mean volume (Bld) [Entitic vol] 11.8 fL Normal 9.5-13.5 [facility] Comment on above: Performed By: #### C BC #### [facility] [address] [place] [address] Dr. Ronnie Pennington PLT 126 103/ul Critically low 150-450 [facility] Comment on above: Performed By: #### C BC #### [facility] [address] [place] [address] Dr. Ronnie Pennington RBC 3.65 106/ul Critically low 4.70-6.10 [facility] Comment on above: Performed By: #### C BC #### [facility] [address] [address] [address] Ronnie Pennington WBC 6.9 103/ul Normal 4.0-11.0 [facility] Comment on above: Performed By: #### C BC #### [facility] [address] [address] [address] Ronnie Pennington MAGNESIUMon 07-13-2022 Magnesium [Mass/Vol] 2.1 mg/dL Normal 1.8-2.4 [facility] Comment on above: Performed By: #### C MP, MG #### [facility] [address] [address] [address] Ronnie Pennington Office Visit (Cardiology)on 07-13-2022 Follow-up visit Patient Instructions -Please bring a list of your medications to every appointment. -We will schedule you a follow up appointment in # months. We will call you with this date. -If you have any questions, please do not hesitate to contact our office at [phone]. For after hours issues, please call [phone]. Chief Complaint OLIVERIO ESCOBEDO is being seen [...] September 2021. [place] continues to live in [place] He has started Zoloft for depression. He [...] TabletTake 1 tablet twice daily MiraLax Mix-In [place] 17 GM Oral PacketMIX 1 PACKET in [...] 2.9 g/dL Critically low 3.4-5.0 [facility] Comment on above: Performed By: #### C MP, MG #### [facility] [address] [place] [address] Dr. Ronnie Pennington Albumin/Globulin [Mass ratio] 0.7 {ratio} Normal [facility] Comment on above: Performed By: #### C MP, MG #### [facility] [address] [place] [address] Dr. Ronnie Pennington ALP [Catalytic activity/Vol] 71 U/L Normal 46-116 [facility] Comment on above: Performed By: #### C MP, MG #### [facility] [address] [place] [address] Dr. Ronnie Pennington ALT [Catalytic activity/Vol] 12 U/L Critically low 16-63 [facility] Comment on above: Performed By: #### C MP, MG #### [facility] [address] [place] [address] Dr. Ronnie Pennington Anion gap [Moles/Vol] 15.1 mmol/L Normal [facility] Comment on above: Performed By: #### C MP, MG #### [facility] [address] [place] [address] Dr. Ronnie Pennington AST [Catalytic activity/Vol] 11 U/L Critically low 15-37 [facility] Comment on above: Performed By: #### C MP, MG #### [facility] [address] [place] [address] Dr. Ronnie Pennington Bilirubin [Mass/Vol] 0.2 mg/dL Normal 0.2-1.0 [facility] Comment on above: Performed By: #### C MP, MG #### [facility] [address] [place] [address] Dr. Ronnie Pennington Calcium [Mass/Vol] 9.2 mg/dL Normal 8.5-10.1 [facility] Comment on above: Performed By: #### C MP, MG #### [facility] [address] [place] [address] Dr. Ronnie Pennington Chloride [Moles/Vol] 105 mmol/L Normal 98-107 [facility] Comment on above: Performed By: #### C MP, MG #### [facility] [address] [place] [address] Dr. Ronnie Pennington CO2 [Moles/Vol] 28.1 mmol/L Normal 21.0-32.0 [facility] Comment on above: Performed By: #### C MP, MG #### [facility] [address] [place] [address] Dr. Ronnie Pennington Creatinine [Mass/Vol] 2.14 mg/dL Critically high 0.70-1.30 [facility] Comment on above: Performed By: #### C MP, MG #### [facility] [address] [place] [address] Dr. Ronnie Pennington EGFR-AF TUNISIAN 36 mL/min/1.73m2 Critically low >=60 [facility] Comment on above: Performed By: #### C MP, MG #### [facility] [address] [place] [address] Dr. Ronnie Pennington EGFR-NON AF TUNISIAN 30 mL/min/1.73m2 Critically low >=60 [facility] Comment on above: Performed By: #### C MP, MG #### [facility] [address] [place] [address] Dr. Ronnie Pennington Globulin (S) [Mass/Vol] 4.0 g/dL Normal [facility] Comment on above: Performed By: #### C MP, MG #### [facility] [address] [place] [address] Dr. Ronnie Pennington Glucose [Mass/Vol] 150 mg/dL Critically high 74-106 [facility] Comment on above: Performed By: #### C MP, MG #### [facility] [address] [place] [address] Dr. Ronnie Pennington Potassium [Moles/Vol] 4.2 mmol/L Normal 3.5-5.1 [facility] Comment on above: Performed By: #### C MP, MG #### [facility] [address] [address] [address] Ronnie Pennington Protein [Mass/Vol] 6.9 g/dL Normal 6.4-8.2 [facility] Comment on above: Performed By: #### C MP, MG #### [facility] [address] [address] [address] Ronnie Pennington Sodium [Moles/Vol] 144 mmol/L Normal 136-145 [facility] Comment on above: Performed By: #### C MP, MG #### [facility] [address] [address] [address] Ronnie Pennington Urea nitrogen [Mass/Vol] 32.0 mg/dL Critically high 7.0-18.0 [facility] Comment on above: Performed By: #### C MP, MG #### [facility] [address] [address] [address] Ronnie Pennington Urea nitrogen/Creatinine [Mass ratio] 15.0 mg/mg Normal [facility] Comment on above: Performed By: #### C MP, MG #### [facility] [address] [address] [address] Ronnie Pennington Transplant SW Assessment Upd [...] Jul 15 2022 12:57PM EST (Author) Normal [facility] Consultation Noteon 06-10-19 Consultation Note [id number] Normal [facility] TSHon 06-05-2022 TSH 3.293 uIU/mL Normal 0.358-3.74 0 [facility] Comment on above: Performed By: #### T SH #### [facility] [address] [address] [address] Ronnie Pennington Cult,Woundon 04-19-2022 Cult,Wound Specimen [...] Tetracycline <=1 SUSCEPTIBLE Trimethoprim/Sulfa <=10 SUSCEPTIBLE Susceptible [place] Comment on above: Performed By: #### W MI #### [facility] [address] [place] [address] Fuel Truck Driver: David Gonzalez MD PROF CHEM 8 ([facility])on Anion gap [Moles/Vol] 14.9 mmol/L Normal [facility] Comment on above: Performed By: #### B MP #### [facility] [address] [address] [address] Ronnie Pennington Calcium [Mass/Vol] 8.8 mg/dL Normal 8.5-10.1 [facility] Comment on above: Performed By: #### B MP #### [facility] [address] [address] [address] Ronnie Pennington Chloride [Moles/Vol] 104 mmol/L Normal 98-107 [facility] Comment on above: Performed By: #### B MP #### [facility] [address] [address] [address] Ronnie Pennington CO2 [Moles/Vol] 26.6 mmol/L Normal 21.0-32.0 [facility] Comment on above: Performed By: #### B MP #### [facility] [address] [address] [address] Ronnie Pennington Creatinine [Mass/Vol] 2.03 mg/dL Critically high 0.70-1.30 [facility] Comment on above: Performed By: #### B MP #### [facility] [address] [address] [address] Ronnie Pennington EGFR-AF TUNISIAN 39 mL/min/1.73m2 Critically low >=60 [facility] Comment on above: Performed By: #### B MP #### [facility] [address] [address] [address] Ronnie Pennington EGFR-NON AF TUNISIAN 32 mL/min/1.73m2 Critically low >=60 [facility] Comment on above: Performed By: #### B MP #### [facility] [address] [address] [address] Ronnie Pennington Glucose [Mass/Vol] 209 mg/dL Critically high 74-106 [facility] Comment on above: Performed By: #### B MP #### [facility] [address] [address] [address] Ronnie Pennington Potassium [Moles/Vol] 4.5 mmol/L Normal 3.5-5.1 [facility] Comment on above: Performed By: #### B MP #### [facility] [address] [address] [address] Ronnie Pennington Sodium [Moles/Vol] 141 mmol/L Normal 136-145 [facility] Comment on above: Performed By: #### B MP #### [facility] [address] [address] [address] Ronnie Pennington Urea nitrogen [Mass/Vol] 26.0 mg/dL Critically high 7.0-18.0 [facility] Comment on above: Performed By: #### B MP #### [facility] [address] [address] [address] Ronnie Pennington Urea nitrogen/Creatinine [Mass ratio] 12.8 mg/mg Normal [facility] Comment on above: Performed By: #### B MP #### [facility] [address] [address] [address] Ronnie Pennington Office Visit (Cardiology)on 10-15-2021 [...] last office visit; documented BPs at the [facility] 120-130s/70-80s. Benadryl 25 mg q6h PRN for [...] JARON NESS Date: 2021-08-05 15:10 Normal [facility] CBC AND DIFFERENTIALon 07-13 % AUTOMATED IMMATURE GRAN 0.5 % Normal 0.0 - 0.9 [facility] Comment on above: Result Comment: Christal ture Granulocyte Count (IG) includes promyelocytes, myelocytes and metamyelocytes but does not include bands. Percent differential counts (%) should be interpreted in the context of the absolute cell counts (cells/L). Performed By: #### C BCDF #### [address] [address] Basophils (Bld) [#/Vol] 0.02 10*3/uL Normal 0.00 - 0.10 [facility] Comment on above: Performed By: #### C BCDF #### [address] [address] Basophils/100 WBC (Bld) 0.3 % Normal 0.0 - 2.0 [facility] Comment on above: Performed By: #### C BCDF #### [address] [address] Eosinophils (Bld) [#/Vol] 0.07 10*3/uL Normal 0.00 - 0.40 [facility] Comment on above: Performed By: #### C BCDF #### [address] [address] Eosinophils/100 WBC (Bld) 0.9 % Normal 0.0 - 6.0 [facility] Comment on above: Performed By: #### C BCDF #### [address] [address] Erythrocyte distribution width (RBC) [Ratio] 14.4 % Normal 11.5 - 14.5 [facility] Comment on above: Performed By: #### C BCDF #### [address] [address] Hematocrit (Bld) [Volume fraction] 35.5 % Low 41.0 - 52.0 [facility] Comment on above: Performed By: #### C BCDF #### [address] [address] Hemoglobin (Bld) [Mass/Vol] 10.8 g/dL Low 13.5 - 17.5 [facility] Comment on above: Performed By: #### C BCDF #### [address] [address] Lymphocytes (Bld) [#/Vol] 0.42 10*3/uL Low 0.80 - 3.00 [facility] Comment on above: Performed By: #### C BCDF #### [address] [address] Lymphocytes/100 WBC (Bld) 5.6 % Normal 13.0 - 44.0 [facility] Comment on above: Performed By: #### C BCDF #### [address] [address] MCHC (RBC) [Mass/Vol] 30.4 g/dL Low 32.0 - 36.0 [facility] Comment on above: Performed By: #### C BCDF #### [address] [address] MCV (RBC) [Entitic vol] 89 fL Normal 80 - 100 [facility] Comment on above: Performed By: #### C BCDF #### [address] [address] Monocytes (Bld) [#/Vol] 0.07 10*3/uL Normal 0.05 - 0.80 [facility] Comment on above: Performed By: #### C BCDF #### [address] [address] Monocytes/100 WBC (Bld) 0.9 % Normal 2.0 - 10.0 [facility] Comment on above: Performed By: #### C BCDF #### [address] [place] [address] Neutrophils (Bld) [#/Vol] 6.82 10*3/uL High 1.60 - 5.50 [facility] Comment on above: Performed By: #### C BCDF #### [address] [address] Neutrophils/100 WBC (Bld) 91.8 % Normal 40.0 - 80.0 [facility] Comment on above: Performed By: #### C BCDF #### [address] [address] NUCLEATED RBC 0.0 /100 WBC Normal 0.0 - 0.0 [facility] Comment on above: Performed By: #### C BCDF #### [address] [address] Platelets (Bld) [#/Vol] 161 10*3/uL Normal 150 - 450 [facility] Comment on above: Performed By: #### C BCDF #### [address] [address] RBC 3.98 x10E12/L Low 4.50 - 5.90 [facility] Comment on above: Performed By: #### C BCDF #### [address] [address] WBC (Bld) [#/Vol] 7.4 10*3/uL Normal 4.4 - 11.3 [facility] Comment on above: Performed By: #### C BCDF #### [address] [address] Complete Blood Count + Diffe rentialon 07-13-2021 Basophils/100 WBC (Bld) 0.3 % 0.0 - 2.0 [facility] [employer] [address] [place] Work Phone: Erythrocyte distribution width (RBC) [Ratio] 14.4 % See Below [facility] [employer] [address] [place] Work Phone: Comment on above: Reference Range: 11. 5 - 14.5 Hematocrit (Bld) [Volume fraction] 35.5 % below low threshold See Below [facility] [address] [place] Work Phone: Comment on above: Reference Range: 41. 0 - 52.0 Hemoglobin (Bld) [Mass/Vol] 10.8 g/dL below low threshold See Below [facility] [address] [place] Work Phone: Comment on above: Reference Range: 13. 5 - 17.5 Lymphocytes/100 WBC (Bld) 5.6 % See Below [facility] [address] [place] Work Phone: Comment on above: Reference Range: 13. 0 - 44.0 MCHC (RBC) [Mass/Vol] 30.4 g/dL below low threshold See Below [facility] [address] [place] Work Phone: Comment on above: Reference Range: 32. 0 - 36.0 MCV (RBC) [Entitic vol] 89 fL 80 - 100 [facility] [address] [place] Work Phone: Monocytes/100 WBC (Bld) 0.9 % 2.0 - 10.0 [facility] [address] [place] Work Phone: Neutrophils/100 WBC (Bld) 91.8 % See Below [facility] [address] [place] Work Phone: Comment on above: Reference Range: 40. 0 - 80.0 Platelets (Bld) [#/Vol] 161 10*3/uL 150 - 450 [facility] [address] [place] Work Phone: RBC (Bld) [#/Vol] 3.98 {x10E12/L} below low threshold See Below [facility] [address] [place] Work Phone: Comment on above: Reference Range: 4.5 0 - 5.90 WBC (Bld) [#/Vol] 7.4 10*3/uL 4.4 - 11.3 [facility] [address] [place] Work Phone: Complete Blood Count [...] low threshold See Below [facility] [address] [place] Work Phone: Comment on above: Reference Range: 0.8 0 - 3.00 Complete Blood Count + Differential 6.82 {x10E9/L} above high threshold See Below [facility] [employer] [address] [place] Work Phone: Comment on above: Reference Range: 1.6 0 - 5.50 Complete Blood Count + Differential 0.9 % 0.0 - 6.0 [facility] [employer] [address] [place] Work Phone: Complete Blood Count + Differential 0.5 % 0.0 - 0.9 [facility] [employer] [place] Work Phone: Comment on above: Immature Granulocyte Count (IG) includes promyelocytes, myelocytes and metamyelocytes but does not include bands. Percent differential counts (%) should be interpreted in the context of the absolute cell counts (cells/L). Complete Blood Count + Differential 0.0 {/100_WBC} 0.0 - 0.0 [facility] [address] [place] Work Phone: Coronavirus 2019 RNA by PCR, Symptomaticon 07-03-2021 Date and time of symptom onset [id number] [facility] [address] [place] Work Phone: Coronavirus 2019 RNA by PCR, Symptomatic Not detected Normal See Below [facility] [address] [place] Work Phone: Comment on above: SOURCE: Nasal, Nasop haryngealReference Range: Not Detected.This test has received FDA Emergency Use Authorization (EUA) and has been verified by [facility] ([facility]). This test is only authorized for the duration of time that circumstances exist to justify the authorization of the emergency use of in vitro diagnostic tests for the detection of SARS-CoV-2 virus and/or diagnosis of COVID-19 infection under section 564(b)(1) of the Act, 21 U.S.C. 360bbb-3(b)(1), unless the authorization is terminated or revoked sooner. [facility] is certified under CLIA-88 as qualified to perform high complexity testing. Testing is performed in the [facility] located at [address] [place] [address].SARS-CoV-2/Flu/RSV Multiplex Test: Fact sheet for providers: https://www.fda.gov/media/619765/downloadFact sheet for patients: https://www.fda.gov/media/285290/download Laboratory - Chemistry and C hemistry - challengeon 07-03-2021 Glucose [Mass/Vol] 330 mg/dL above high threshold 74 - 99 [facility] [address] [place] Work Phone: Glucose [Mass/Vol] 277 mg/dL above high threshold 74 - 99 [facility] [address] [place] Work Phone: Anion gap [Moles/Vol] 15 mmol/L 10 - 20 [facility] [address] [place] Work Phone: Calcium [Mass/Vol] 9.3 mg/dL 8.6 - 10.6 [facility] [address] [place] Work Phone: Chloride [Moles/Vol] 101 mmol/L 98 - 107 [facility] [address] [place] Work Phone: CO2 [Moles/Vol] 26 mmol/L 21 - 32 [facility] [address] [place] Work Phone: Creatinine [Mass/Vol] 1.80 mg/dL above high threshold See Below [facility] [address] [place] Work Phone: Comment on above: Reference Range: 0.5 0 - 1.30 Glucose [Mass/Vol] 246 mg/dL above high threshold 74 - 99 [facility] [address] [place] Work Phone: Potassium [Moles/Vol] 3.9 mmol/L 3.5 - 5.3 [facility] [address] [place] Work Phone: [phone] Sodium [Moles/Vol] 138 mmol/L 136 - 145 [facility] [address] [place] Work Phone: [phone] Urea nitrogen [Mass/Vol] 35 mg/dL above high threshold 6 - 23 [facility] [address] [place] Work Phone: Laboratory - Hematology and Cell countson 07-03-2021 Erythrocyte distribution width (RBC) [Ratio] 13.7 % See Below [facility] [address] [place] Work Phone: Comment on above: Reference Range: 11. 5 - 14.5 Hematocrit (Bld) [Volume fraction] 35.1 % below low threshold See Below [facility] [address] [place] Work Phone: Comment on above: Reference Range: 41. 0 - 52.0 Hemoglobin (Bld) [Mass/Vol] 10.8 g/dL below low threshold See Below [facility] [address] [place] Work Phone: Comment on above: Reference Range: 13. 5 - 17.5 MCHC (RBC) [Mass/Vol] 30.8 g/dL below low threshold See Below [facility] [address] [place] Work Phone: Comment on above: Reference Range: 32. 0 - 36.0 MCV (RBC) [Entitic vol] 89 fL 80 - 100 [facility] [address] [place] Work Phone: Platelets (Bld) [#/Vol] 171 10*3/uL 150 - 450 [facility] [address] [place] Work Phone: RBC (Bld) [#/Vol] 3.94 {x10E12/L} below low threshold See Below [facility] [address] [place] Work Phone: Comment on above: Reference Range: 4.5 0 - 5.90 WBC (Bld) [#/Vol] 6.0 10*3/uL 4.4 - 11.3 [facility] [address] [place] Work Phone: No Panel Informationon 07-03 38 {mL/min/1.73m2} Abnormal >90 [facility] [address] [place] Work Phone: Comment on above: CALCULATIONS OF ERNST MATED GFR ARE PERFORMED USING THE 2020 CKD-EPI STUDY REFIT EQUATION WITHOUT THE RACE VARIABLE FOR THE IDMS-TRACEABLE CREATININE METHODS.https://jasn.asnjournals.org/content/early// ASN.8079500157 0.0 {/100_WBC} 0.0-0.0 [facility] [address] [place] Work Phone: Tacrolimuson 07-03-2021 Tacrolimus (Bld) [Mass/Vol] 5.5 ng/mL 2.0 - 15.0 [facility] [address] [place] Work Phone: Comment on above: NOTE: Result was obt ained using a chemiluminescent microparticle immunoassay (CMIA) on the Clinic Scheduler i system.Optimal therapeutic ranges for immuno-suppressant drugs [...] high threshold 74 - 99 [facility] [address] [place] Work Phone: [phone] Glucose [Mass/Vol] 257 mg/dL above high threshold 74 - 99 [facility] [address] [place] Work Phone: [phone] Glucose [Mass/Vol] 286 mg/dL above high threshold 74 - 99 [facility] [address] [place] Work Phone: [phone] Glucose [Mass/Vol] 269 mg/dL above high threshold 74 - 99 [facility] [address] [place] Work Phone: [phone] Anion gap [Moles/Vol] 15 mmol/L 10 - 20 [facility] [address] [place] Work Phone: [phone] Calcium [Mass/Vol] 9.1 mg/dL 8.6 - 10.6 [facility] [address] [place] Work Phone: [phone] Chloride [Moles/Vol] 102 mmol/L 98 - 107 [facility] [address] [place] Work Phone: [phone] CO2 [Moles/Vol] 27 mmol/L 21 - 32 [facility] [address] [place] Work Phone: [phone] Creatinine [Mass/Vol] 1.97 mg/dL above high [...] mmol/L 136 - 145 [facility] [address] [place] Work Phone: [phone] Urea nitrogen [Mass/Vol] 41 mg/dL above high threshold 6 - 23 [facility] [address] [place] Work Phone: [phone] Glucose [Mass/Vol] 201 mg/dL above high threshold 74 - 99 [facility] [address] [place] Work Phone: Laboratory - Hematology and Cell countson 07-02-2021 Erythrocyte distribution width (RBC) [Ratio] 14.1 % See Below [facility] [address] [place] Work Phone: [phone] Comment on above: Reference Range: 11. 5 - 14.5 Hematocrit (Bld) [Volume fraction] 33.6 % below low threshold See Below [facility] [address] [place] Work Phone: Comment on above: Reference Range: 41. 0 - 52.0 Hemoglobin (Bld) [Mass/Vol] 10.5 g/dL below low threshold See Below [facility] [address] [place] Work Phone: Comment on above: Reference Range: 13. 5 - 17.5 MCHC (RBC) [Mass/Vol] 31.3 g/dL below low threshold See Below [facility] [address] [place] Work Phone: Comment on above: Reference Range: 32. 0 - 36.0 MCV (RBC) [Entitic vol] 88 fL 80 - 100 [facility] [address] [place] Work Phone: Platelets (Bld) [#/Vol] 160 10*3/uL 150 - 450 [facility] [address] [place] Work Phone: RBC (Bld) [...] RACE VARIABLE FOR THE IDMS-TRACEABLE CREATININE METHODS.https://jasn.asnjournals.org/content/early// ASN.0753205748 0.0 {/100_WBC} 0.0-0.0 [facility] [address] [place] Work Phone: Tacrolimuson 07-02-2021 Tacrolimus (Bld) [Mass/Vol] 7.6 ng/mL 2.0 - 15.0 [facility] [address] [place] Work Phone: Comment on above: NOTE: Result was obt ained using a chemiluminescent microparticle immunoassay (CMIA) on the Clinic Scheduler i system.Optimal therapeutic ranges for immuno-suppressant drugs [...] [Mass fraction] 8.4 % Abnormal [facility] [address] [place] Work Phone: Comment on above: Diagnosis of Diabete s-Adults Non-Diabetic: < or = 5.6% Increased risk for developing diabetes: 5.7-6.4% Diagnostic of diabetes: > or = 6.5%. Monitoring of Diabetes Age (y) Therapeutic Goal (%) Adults: >18 <7.0 Pediatrics: 13-18 <7.5 7-12 <8.0 0- 6 7.5-8.5 [place] Diabetes Association. Diabetes Care 33(S1), Mar 2009. Laboratory - Chemistry and C hemistry - challengeon 07-01-2021 Glucose [Mass/Vol] 188 mg/dL above high threshold 74 - 99 [facility] [address] [place] Work Phone: Glucose [Mass/Vol] 258 mg/dL above high threshold 74 - 99 [facility] [address] [place] Work Phone: Glucose [Mass/Vol] 321 mg/dL above high threshold 74 - 99 [facility] [address] [place] Work Phone: Anion gap [Moles/Vol] 16 mmol/L 10 - 20 [facility] [address] [place] Work Phone: Calcium [Mass/Vol] 8.8 mg/dL 8.6 - 10.6 [facility] [address] [place] Work Phone: Chloride [Moles/Vol] 100 mmol/L 98 - 107 [facility] [address] [place] Work Phone: CO2 [Moles/Vol] 29 mmol/L 21 - 32 [facility] [address] [place] Work Phone: Creatinine [Mass/Vol] 1.99 mg/dL above high threshold See Below [facility] [address] [place] Work Phone: Comment on above: Reference Range: 0.5 0 - 1.30 Glucose [Mass/Vol] 227 mg/dL above high threshold 74 - 99 [facility] [address] [place] Work Phone: Glucose [Mass/Vol] 243 mg/dL above high threshold 74 - 99 [facility] [address] [place] Work Phone: Potassium [Moles/Vol] 4.0 mmol/L 3.5 - 5.3 [facility] [address] [place] Work Phone: Sodium [Moles/Vol] 141 mmol/L 136 - 145 [facility] [address] [place] Work Phone: Urea nitrogen [Mass/Vol] 38 mg/dL above high threshold 6 - 23 [facility] [address] [place] Work Phone: Laboratory - Hematology and Cell countson 07-01-2021 Erythrocyte distribution width (RBC) [Ratio] 14.1 % See Below [facility] [address] [place] Work Phone: Comment on above: Reference Range: 11. 5 - 14.5 Hematocrit (Bld) [Volume fraction] 34.6 % below low threshold See Below [facility] [address] [place] Work Phone: Comment on [...] fL 80 - 100 [facility] [address] [place] Work Phone: Platelets (Bld) [#/Vol] 157 10*3/uL 150 - 450 [facility] [address] [place] Work Phone: RBC (Bld) [#/Vol] 3.83 {x10E12/L} below low threshold See Below [facility] [address] [place] Work Phone: Comment on above: Reference Range: 4.5 0 - 5.90 WBC (Bld) [#/Vol] 6.8 10*3/uL 4.4 - 11.3 [facility] [address] [place] Work Phone: No Panel Informationon 07-01 34 {mL/min/1.73m2} Abnormal >90 [facility] [address] [place] Work Phone: Comment on above: CALCULATIONS OF ERNST MATED GFR ARE PERFORMED USING THE 2020 CKD-EPI STUDY REFIT EQUATION WITHOUT THE RACE VARIABLE FOR THE IDMS-TRACEABLE CREATININE METHODS.https://jasn.asnjournals.org/content// ASN.9948172264 0.0 {/100_WBC} 0.0-0.0 [facility] [address] [place] Work Phone: Tacrolimuson 07-01-2021 Tacrolimus (Bld) [Mass/Vol] 9.3 ng/mL 2.0 - 15.0 [facility] [address] [place] Work Phone: Comment on above: NOTE: Result was obt ained using a chemiluminescent microparticle immunoassay (CMIA) on the Clinic Scheduler i system.Optimal therapeutic ranges for immuno-suppressant drugs [...] high threshold 74 - 99 [facility] [address] [place] Work Phone: [phone] Glucose [Mass/Vol] 289 mg/dL above high threshold 74 - 99 [facility] [address] [place] Work Phone: [phone] Glucose [Mass/Vol] 236 mg/dL above high threshold 74 - 99 [facility] [address] [place] Work Phone: [phone] Anion gap [Moles/Vol] 17 mmol/L 10 - 20 [facility] [address] [place] Work Phone: [phone] Calcium [Mass/Vol] 8.6 mg/dL 8.6 - 10.6 [facility] [address] [place] Work Phone: [phone] Chloride [Moles/Vol] 100 mmol/L 98 - 107 [facility] [address] [place] Work Phone: [phone] CO2 [Moles/Vol] 28 mmol/L 21 - 32 [facility] [address] [place] Work Phone: [phone] Creatinine [Mass/Vol] 2.26 mg/dL above high threshold See Below [facility] [address] [place] Work Phone: [phone] Comment on above: Reference Range: 0.5 0 - 1.30 Glucose [Mass/Vol] 205 mg/dL above high threshold 74 - 99 [facility] [address] [place] Work Phone: [phone] Potassium [Moles/Vol] 3.8 mmol/L 3.5 - 5.3 [facility] [address] [place] Work Phone: Sodium [Moles/Vol] 141 mmol/L 136 - 145 [facility] [address] [place] Work Phone: Urea nitrogen [Mass/Vol] 39 mg/dL above high threshold 6 - 23 [facility] [address] [place] Work Phone: Laboratory - Hematology and Cell countson 06-30-2021 Erythrocyte distribution width (RBC) [Ratio] 14.3 % See Below [facility] [address] [place] Work Phone: Comment on above: Reference Range: 11. 5 - 14.5 Hematocrit (Bld) [Volume fraction] 33.5 % below low threshold See Below [facility] [address] [place] Work Phone: Comment on [...] w threshold 150 - 450 [facility] [address] [place] Work Phone: RBC (Bld) [#/Vol] 3.70 {x10E12/L} below low threshold See Below [facility] [address] [place] Work Phone: Comment on [...] RACE VARIABLE FOR THE IDMS-TRACEABLE CREATININE METHODS.https://jasn.asnjournals.org/content/early/ ASN.7829375850 0.0 {/100_WBC} 0.0-0.0 [facility] [address] [place] Work Phone: Tacrolimuson 06-30-2021 Tacrolimus (Bld) [Mass/Vol] 7.7 ng/mL 2.0 - 15.0 [facility] [address] [place] Work Phone: Comment on above: NOTE: Result was obt ained using a chemiluminescent microparticle immunoassay (CMIA) on the Clinic Scheduler i system.Optimal therapeutic ranges for immuno-suppressant drugs depend upon an individualpatient's current clinical state, type oforgan transplant, time post-transplant,co-administration of other immunosuppressants,and other clinical factors. The results ofthis test should be correlated with additionalclinical and laboratory data before changesin treatment regimens are made. [facility] Venous Duplex Ultra sound for DVTon 06-30-2021 [facility] Venous Duplex Ultrasound for DVT [facility] [address] [place] Work Phone: Laboratory - [...] threshold 74 - 99 [facility] [address] [place] Work Phone: [phone] Anion gap [Moles/Vol] 16 mmol/L 10 - 20 [facility] [address] [place] Work Phone: [phone] Calcium [Mass/Vol] 8.7 mg/dL 8.6 - 10.6 [facility] [address] [place] Work Phone: [phone] Chloride [Moles/Vol] 104 mmol/L 98 - 107 [facility] [address] [place] Work Phone: [phone] CO2 [Moles/Vol] 28 mmol/L 21 - 32 [facility] [address] [place] Work Phone: [phone] Creatinine [Mass/Vol] 1.97 mg/dL above high threshold See Below [facility] [address] [place] Work Phone: [phone] Comment on above: Reference Range: 0.5 0 - 1.30 Glucose [Mass/Vol] 185 mg/dL above high threshold 74 - 99 [facility] [address] [place] Work Phone: [phone] Potassium [Moles/Vol] 3.9 mmol/L 3.5 - 5.3 [facility] [address] [place] Work Phone: [phone] Sodium [Moles/Vol] 144 mmol/L 136 - 145 [facility] [address] [place] Work Phone: [phone] Urea nitrogen [Mass/Vol] 35 mg/dL above high threshold 6 - 23 [facility] [address] [place] Work Phone: [phone] Glucose [Mass/Vol] 186 mg/dL above high threshold 74 - 99 [facility] [address] [place] Work Phone: [phone] Laboratory - Hematology and Cell countson 06-29-2021 Erythrocyte distribution width (RBC) [Ratio] 14.3 % See Below [facility] [address] [place] Work Phone: Comment on above: Reference Range: 11. 5 - 14.5 Hematocrit (Bld) [Volume fraction] 35.8 % below low threshold See Below [facility] [address] [place] Work Phone: Comment on [...] fL 80 - 100 [facility] [address] [place] Work Phone: Platelets (Bld) [#/Vol] 142 10*3/uL below lo w threshold 150 - 450 [facility] [address] [place] Work Phone: RBC (Bld) [#/Vol] 3.96 {x10E12/L} below low threshold See Below [facility] [address] [place] Work Phone: Comment on above: Reference Range: 4.5 0 - 5.90 WBC (Bld) [#/Vol] 7.0 10*3/uL 4.4 - 11.3 [facility] [address] [place] Work Phone: Magnesium, Serumon [...] RACE VARIABLE FOR THE IDMS-TRACEABLE CREATININE METHODS.https://jasn.asnjournals.org/content/early// ASN.0299870908 0.0 {/100_WBC} 0.0-0.0 [facility] [address] [place] Work Phone: Tacrolimuson 06-29-2021 Tacrolimus (Bld) [Mass/Vol] 8.4 ng/mL 2.0 - 15.0 [facility] [address] [place] Work Phone: Comment on above: NOTE: Result was obt ained using a chemiluminescent microparticle immunoassay (CMIA) on the Clinic Scheduler i system.Optimal therapeutic ranges for immuno-suppressant drugs [...] high threshold 74 - 99 [facility] [address] [place] Work Phone: Anion gap [Moles/Vol] 14 mmol/L 10 - 20 [facility] [address] [place] Work Phone: Calcium [Mass/Vol] 8.5 mg/dL below low threshold 8.6 - 10.6 [facility] [address] [place] Work Phone: Chloride [Moles/Vol] 105 mmol/L 98 - 107 [facility] [address] [place] Work Phone: [phone] CO2 [Moles/Vol] 29 mmol/L 21 - 32 [facility] [address] [place] Work Phone: [phone] Creatinine [Mass/Vol] 1.96 mg/dL above high threshold See Below [facility] [address] [place] Work Phone: Comment on above: Reference Range: 0.5 0 - 1.30 Glucose [Mass/Vol] 159 mg/dL above high threshold 74 - 99 [facility] [address] [place] Work Phone: [phone] Potassium [Moles/Vol] 3.8 mmol/L 3.5 - 5.3 [facility] [address] [place] Work Phone: [phone] Sodium [Moles/Vol] 144 mmol/L 136 - 145 [facility] [address] [place] Work Phone: Urea nitrogen [Mass/Vol] 36 mg/dL above high threshold 6 - 23 [facility] [address] [place] Work Phone: Glucose [Mass/Vol] 159 mg/dL above high threshold 74 - 99 [facility] [address] [place] Work Phone: Laboratory - Hematology and Cell countson 06-28-2021 Erythrocyte distribution width (RBC) [Ratio] 14.3 % See Below [facility] [address] [place] Work Phone: Comment on above: Reference Range: 11. 5 - 14.5 Hematocrit (Bld) [Volume fraction] 33.8 % below low threshold See Below [facility] [address] [place] Work Phone: Comment on above: Reference Range: 41. 0 - 52.0 Hemoglobin (Bld) [Mass/Vol] 10.4 g/dL below low threshold See Below [facility] [address] [place] Work Phone: Comment on above: Reference Range: 13. 5 - 17.5 MCHC (RBC) [Mass/Vol] 30.8 g/dL below low threshold See Below [facility] [address] [place] Work Phone: Comment on above: Reference Range: 32. 0 - 36.0 MCV (RBC) [Entitic vol] 90 fL 80 - 100 [facility] [address] [place] Work Phone: Platelets (Bld) [#/Vol] 133 10*3/uL below lo w threshold 150 - 450 [facility] [address] [place] Work Phone: RBC (Bld) [#/Vol] 3.75 {x10E12/L} below low threshold See Below [facility] [address] [place] Work Phone: Comment on above: Reference Range: 4.5 0 - 5.90 WBC (Bld) [#/Vol] 5.7 10*3/uL 4.4 - 11.3 [facility] [address] [place] Work Phone: Lactate, Levelon 06-28-2021 Lactate [Moles/Vol] 0.6 mmol/L 0.4 - 2.0 [facility] [address] [place] Work Phone: Comment on above: [...] RACE VARIABLE FOR THE IDMS-TRACEABLE CREATININE METHODS.https://jasn.asnjournals.org/content/early/ ASN.9689737578 0.0 {/100_WBC} 0.0-0.0 [facility] [address] [place] Work Phone: Tacrolimuson 06-28-2021 Tacrolimus (Bld) [Mass/Vol] 10.4 ng/mL 2.0 - 15.0 [facility] [address] [place] Work Phone: Comment on above: NOTE: Result was obt ained using a chemiluminescent microparticle immunoassay (CMIA) on the Clinic Scheduler i system.Optimal therapeutic ranges for immuno-suppressant drugs depend upon an individualpatient's current clinical state, type oforgan transplant, time post-transplant,co-administration of other immunosuppressants,and other clinical factors. The results ofthis test should be correlated with additionalclinical and laboratory data before changesin treatment regimens are made. Complete Blood Count + Diffe rentialon 06-27-2021 Basophils/100 WBC (Bld) 0.5 % 0.0 - 2.0 [facility] [address] [place] Work Phone: Erythrocyte distribution width (RBC) [Ratio] 14.3 % See Below [facility] [address] [place] Work Phone: Comment on above: Reference Range: 11. 5 - 14.5 Hematocrit (Bld) [Volume fraction] 33.6 % below low threshold See Below [facility] [address] [place] Work Phone: Comment on above: Reference Range: 41. 0 - 52.0 Hemoglobin (Bld) [Mass/Vol] 10.3 g/dL below low threshold See Below [facility] [address] [place] Work Phone: Comment on above: Reference Range: 13. 5 - 17.5 Lymphocytes/100 WBC (Bld) 13.1 % See Below [facility] [address] [place] Work Phone: Comment on above: Reference Range: 13. 0 - 44.0 MCHC (RBC) [Mass/Vol] 30.7 g/dL below low threshold See Below [facility] [address] [place] Work Phone: Comment on above: Reference Range: 32. 0 - 36.0 MCV (RBC) [Entitic vol] 92 fL 80 - 100 [facility] [address] [place] Work Phone: Monocytes/100 WBC (Bld) 9.0 % 2.0 - 10.0 [facility] [address] [place] Work Phone: Neutrophils/100 WBC (Bld) 72.5 % See Below [facility] [address] [place] Work Phone: Comment on above: Reference Range: 40. 0 - 80.0 Platelets (Bld) [#/Vol] 137 10*3/uL below lo w threshold 150 - 450 [facility] [address] [place] Work Phone: RBC (Bld) [#/Vol] 3.67 {x10E12/L} below low threshold See Below [facility] [address] [place] Work Phone: Comment on above: Reference Range: 4.5 0 - 5.90 WBC (Bld) [#/Vol] 6.4 10*3/uL 4.4 - 11.3 [facility] [address] [place] Work Phone: Complete Blood Count + Differential 0.03 {x10E9/L} See Below [facility] [address] [place] Work Phone: Comment on above: Reference Range: 0.0 0 - 0.10 Complete Blood Count + Differential 0.28 {x10E9/L} See Below [facility] [address] [place] Work Phone: Comment on above: Reference Range: 0.0 0 - 0.40 Complete Blood Count + Differential 0.57 {x10E9/L} See Below [facility] [address] [place] Work Phone: Comment on above: Reference Range: 0.0 5 - 0.80 Complete Blood Count + Differential 0.83 {x10E9/L} See Below [facility] [address] [place] Work Phone: Comment on above: Reference Range: 0.8 0 - 3.00 Complete Blood Count + Differential 4.61 {x10E9/L} See Below [facility] [address] [place] Work Phone: Comment on above: Reference Range: 1.6 0 - 5.50 Complete Blood Count + Differential 4.4 % 0.0 - 6.0 [facility] [address] [place] Work Phone: Complete Blood Count + Differential 0.5 % 0.0 - 0.9 [facility] [address] [place] Work Phone: Comment on above: Immature Granulocyte Count (IG) includes promyelocytes, myelocytes and metamyelocytes but does not include bands. Percent differential counts (%) should be interpreted in the context of the absolute cell counts (cells/L). Complete Blood Count + Differential 0.0 {/100_WBC} 0.0-0.0 [facility] [address] [place] Work Phone: Glucose Glucometer (dC) [M ass/Vol]Ordered By: Yoshi Wu on 06-27-2021 Glucose [Mass/Vol] 263 mg/dL [facility] Comment on above: Random Glucose Refer [...] 57 U/L 33 - 136 [facility] [address] [place] Work Phone: ALT With [...] low threshold 8.6 - 10.6 [facility] [address] [place] Work Phone: Chloride [Moles/Vol] 102 mmol/L 98 - 107 [facility] [address] [place] Work Phone: CO2 [Moles/Vol] 26 mmol/L 21 - 32 [facility] [address] [place] Work Phone: Creatinine [Mass/Vol] 1.85 mg/dL above high threshold See Below [facility] [address] [place] Work Phone: Comment on above: Reference Range: 0.5 0 - 1.30 Glucose [Mass/Vol] 177 mg/dL above high threshold 74 - 99 [facility] [address] [place] Work Phone: Potassium [Moles/Vol] 3.7 mmol/L 3.5 - 5.3 [facility] [address] [place] Work Phone: Protein [Mass/Vol] 5.7 g/dL below low threshold 6.4 - 8.2 [facility] [address] [place] Work Phone: Sodium [Moles/Vol] 142 mmol/L 136 - 145 [facility] [address] [place] Work Phone: Urea nitrogen [Mass/Vol] 37 mg/dL above high threshold 6 - 23 [facility] [address] [place] Work Phone: Glucose [Mass/Vol] 178 mg/dL above high threshold 74 - 99 [facility] [address] [place] Work Phone: Glucose [Mass/Vol] [...] RACE VARIABLE FOR THE IDMS-TRACEABLE CREATININE METHODS.https://jasn.asnjournals.org/content// ASN.2803813145 No Panel InformationOrdered By: Yoshi Wu on 06-27-2021 Bedside Glucose Comment Glu2: cleaned meter [facility] Automated erythrocytes count in urine sediment (number/area)Ordered By: Audra Quinteros on 06-26-2021 RBC Auto (Urine sed) [#/Area] 0-1 [HPF] [facility] Automated leukocytes count i n urine sediment (number/area)Ordered By: Audra Quinteros on 06-26-2021 WBC Auto (Urine sed) [#/Area] 0-1 [HPF] [facility] Bilirubin Test strip Ql (U)O rdered By: Audra Quinteros on 06-26-2021 Bilirubin Ql (U) Negative Negative [facility] COVID-19 Positive/NegativeOr dered By: Omid Myrick on 06-26-2021 SARS-CoV-2 (COVID-19) N gene JOYCE+probe Ql (Resp) Negative Negative [facility] Comment on above: Testing for SARS-CoV -2 by RT-PCRThis test was developed and its performance characteristics determined by [employer] and validated at the [facility]. This test has not been FDA [...] Quinteros on 06-26-2021 Color (U) Yellow Yellow [facility] Creatinine [Mass/volume] in UrineOrdered By: Audra Quinteros on 06-26-2021 Creatinine (U) [Mass/Vol] 71.5 mg/dL [facility] Comment on above: No reference range e stablished Creatinine and Glomerular fi ltration rate.predicted panel (S/P/Bld)Ordered By: Audra Quinteros on 06-26-2021 Creatinine [Mass/Vol] 1.99 mg/dL 0.64-1.27 [facility] Estimated glomerular filtrat ion rate (GFR) non- AmericanOrdered By: Audra Quinteros on 06-26-2021 GFR/1.73 sq M.predicted among non-blacks MDRD (S/P/Bld) [Vol rate/Area] 33 mL/Min [facility] Ketones Auto test strip (U) [Mass/Vol]Ordered By: Audra Quinteros on 06-26-2021 Ketones (U) [Mass/Vol] Negative Negative [facility] Laboratory - Microbiology an d Antimicrobial susceptibilityOrdered By: Omid Myrick on 06-26-2021 SARS-CoV-2 (COVID-19) RNA JOYCE+probe Ql (Unsp spec) N/A [facility] Laboratory - UrinalysisOrder ed By: Audra Quinteros on 06-26-2021 Hyaline casts LM Ql (Urine sed) 0-8 [LPF] [facility] Nitrite Test strip Ql (U)Ord ered By: Audra Quinteros on 06-26-2021 Nitrite Ql (U) Negative Negative [facility] No Panel InformationOrdered By: Audra Quinteros on 06-26-2021 Estimated GFR () 40 mL/Min [facility] Comment on above: GFR estimated refere nce range: According to KDOQI guidelines, <60 ml/min/1.73m2 is sufficient to diagnose a patient with chronic kidney disease. Pharmacy Creatinine Clearance (Chem 39.80 [facility] Protein Auto test strip (U) [Mass/Vol]Ordered By: Audra Quinteros on 06-26-2021 Protein (U) [Mass/Vol] 300 mg/dL Negative [facility] Serum or plasma calcium abhijit urement (mass/volume)Ordered By: Audra Quinteros on 06-26-2021 Calcium [Mass/Vol] 8.9 mg/dL 8.2-10.2 [facility] Serum or plasma chloride marylin surement (moles/volume)Ordered By: Audra Quinteros on 06-26-2021 Chloride [Moles/Vol] 105 mmol/L 95-114 [facility] Serum or plasma glucose abhijit urement (mass/volume)Ordered By: Audra Quinteros on 06-26-2021 Glucose [Mass/Vol] 194 mg/dL 70-100 [facility] Comment on above: ADA recommended refe rence rangeRandom Glucose Reference Range is dependent on time and content of last meal. Glucose of more than 200 mg/dL in a nonstressed, ambulatory subject supports the diagnosis of Diabetes Mellitus. Serum or plasma potassium me asurement (moles/volume)Ordered By: Omid Myrick on 06-26-2021 Potassium [Moles/Vol] 4.0 mmol/L 3.5-5.1 [facility] Serum or plasma sodium measu rement (moles/volume)Ordered By: Audra Quinteros on 06-26-2021 Sodium [Moles/Vol] 140 mmol/L 136-146 [facility] Serum or plasma total carbon dioxide measurement (moles/volume)Ordered By: Audra Quinteros on 06-26-2021 CO2 [Moles/Vol] 23.8 mmol/L 22.0-30.0 [facility] Serum or plasma urea nitroge n measurement (mass/volume)Ordered By: Audra Quinteros on 06-26-2021 Urea nitrogen [Mass/Vol] 39 mg/dL 9-23 [facility] Specific gravity Auto test s trip (U) [Rel density]Ordered By: Audra Quinteros on 06-26-2021 Specific gravity (U) [Rel density] 1.015 1.001-1.03 0 [facility] Squamous epithelial cells de tection in urine sediment by light microscopyOrdered By: Audra Quinteros on 06-26-2021 Epithelial cells.squamous LM Ql (Urine sed) None seen [HPF] [facility] Urine bacteria detection by automated methodOrdered By: Audra Quinteros on 06-26-2021 Bacteria Auto Ql (U) None seen None Seen [facility] Urine clarity by refractomet ry automatedOrdered By: Audra Quinteros on 06-26-2021 Clarity Refractometry automated (U) Clear Clear [facility] Urine glucose measurement by automated test strip (mass/volume)Ordered By: Audra Quinteros on 06-26-2021 Glucose Auto test strip (U) [Mass/Vol] Normal mg/dL Normal [facility] Urine hemoglobin detection b y automated test stripOrdered By: Audra Quinteros on 06-26-2021 Hemoglobin Auto test strip Ql (U) Negative Negative [facility] Urine leukocyte esterase det ection by automated test stripOrdered By: Audra Quinteros on 06-26-2021 Leukocyte esterase Auto test strip Ql (U) Negative Negative [facility] Urine sodium measurement (mo les/volume)Ordered By: Audra Quinteros on 06-26-2021 Sodium (U) [Moles/Vol] 94 mmol/L [facility] Comment on above: No reference range e stablished Urobilinogen Auto test strip (U) [Mass/Vol]Ordered By: Audra Quinteros on 06-26-2021 Urobilinogen (U) [Mass/Vol] Normal mg/dL Normal [facility] pH Auto test strip (U)Ordere d By: Audra Quinteros on 06-26-2021 pH (U) 5.5 [pH] 5.0-9.0 [facility] Activated partial thrombopla stin time (aPTT) in platelet poor plasma by coagulation aOrdered By: Andrew Hernández on 06-25-2021 aPTT Coag (PPP) [Time] 33.4 s 25.1-36.5 [facility] Albumin [Mass/volume] in Ser um or PlasmaOrdered By: Andrew Hernández on 06-25-2021 Albumin [Mass/Vol] 3.4 g/dL 3.2-5.5 [facility] Basophils Auto (Bld) [#/Vol] Ordered By: Andrew Hernández on 06-25-2021 Basophils (Bld) [#/Vol] 0.0 10*3/uL 0.0-0.2 [facility] Basophils/100 WBC Auto (Bld) Ordered By: Andrew Hernández on 06-25-2021 Basophils/100 WBC (Bld) 0.6 % [facility] Blood hemoglobin measurement (mass/volume)Ordered By: Andrew Hernández on 06-25-2021 Hemoglobin (Bld) [Mass/Vol] 11.8 g/dL 13.0-17.0 [facility] Blood leukocytes automated c ount (number/volume)Ordered By: Andrew Hernández on 06-25-2021 WBC (Bld) [#/Vol] 7.5 10*3/uL 4.5-11.0 [facility] COVID-19 SOFIAOrdered By: Prasanna Hernández on 06-25-2021 SARS-CoV+SARS-CoV-2 (COVID-19) Ag IA.rapid Ql (Resp) Negative Negative [facility] Comment on above: This is a duplicate Jessi SARS Antigen (GABI) result to be used for statistical tracking purpose only. Creatinine and Glomerular fi ltration rate.predicted panel (S/P/Bld)Ordered By: Andrew Hernández on 06-25-2021 Creatinine [Mass/Vol] 2.25 mg/dL 0.64-1.27 [facility] Eosinophils Auto (Bld) [#/Vo l]Ordered By: Andrew Hernández on 06-25-2021 Eosinophils (Bld) [#/Vol] 0.3 10*3/uL 0.0-0.45 [facility] Eosinophils/100 WBC Auto (Bl d)Ordered By: Andrew Hernández on 06-25-2021 Eosinophils/100 WBC (Bld) 4.6 % [facility] Erythrocyte distribution wid th Auto (RBC) [Ratio]Ordered By: Andrew Hernández on 06-25-2021 Erythrocyte distribution width (RBC) [Ratio] 16.1 % 12.0-14.8 [facility] Erythrocyte sedimentation ra te by Photometric methodOrdered By: Andrew Hernández on 06-25-2021 ESR Photometric method (Bld) [Velocity] 39 mm/hr 0-19 [facility] Estimated glomerular filtrat ion rate (GFR) non- AmericanOrdered By: Andrew Hernández on 06-25-2021 GFR/1.73 sq M.predicted among non-blacks MDRD (S/P/Bld) [Vol rate/Area] 28 mL/Min [facility] Globulin Calc (S) [Mass/Vol] Ordered By: Andrew Hernández on 06-25-2021 Globulin (S) [Mass/Vol] 3.2 g/dL [facility] Hematocrit Auto (Bld) [Volum e fraction]Ordered By: Andrew Hernández on 06-25-2021 Hematocrit (Bld) [Volume fraction] 36.2 % 38.8-50.0 [facility] Laboratory - Chemistry and C hemistry - challengeOrdered By: Andrew Hernández on 06-25-2021 Natriuretic peptide B (Bld) [Mass/Vol] 165.0 pg/mL 5-100 [facility] Laboratory - CoagulationOrde red By: Andrew Hernández on 06-25-2021 PT Coag (PPP) [Time] 11.9 s 9.0-12.9 [facility] Laboratory - Hematology and Cell countsOrdered By: Andrew Hernández on 06-25-2021 Nucleated RBC/100 WBC (Bld) [Ratio] 0.1 % 0-0.5 [facility] Lymphocytes Auto (Bld) [#/Vo l]Ordered By: Andrew Hernández on 06-25-2021 Lymphocytes (Bld) [#/Vol] 1.0 10*3/uL 1.00-4.8 [facility] Lymphocytes/100 WBC Auto (Bl d)Ordered By: Andrew Hernández on 06-25-2021 Lymphocytes/100 WBC (Bld) 12.9 % [facility] MCH Auto (RBC) [Entitic mass ]Ordered By: Andrew Hernández on 06-25-2021 MCH (RBC) [Entitic mass] 28.1 pg 27.5-35.2 [facility] MCHC Auto (RBC) [Mass/Vol]Or dered By: Andrew Hernández on 06-25-2021 MCHC (RBC) [Mass/Vol] 32.7 g/dL 32.5-35.6 [facility] MCV Auto (RBC) [Entitic vol] Ordered By: Andrew Hernández on 06-25-2021 MCV (RBC) [Entitic vol] 86.0 fL 83.5-101 F [facility] Monocytes Auto (Bld) [#/Vol] Ordered By: Andrew Hernández on 06-25-2021 Monocytes (Bld) [#/Vol] 0.5 10*3/uL 0.0-0.8 [facility] Monocytes/100 WBC Auto (Bld) Ordered By: Andrew Hernández on 06-25-2021 Monocytes/100 WBC (Bld) 7.3 % [facility] Neutrophils Auto (Bld) [#/Vo l]Ordered By: Andrew Hernández on 06-25-2021 Neutrophils (Bld) [#/Vol] 5.6 10*3/uL 1.8-7.7 [facility] Neutrophils/100 WBC Auto (Bl d)Ordered By: Andrew Hernández on 06-25-2021 Neutrophils/100 WBC (Bld) 74.6 % [facility] No Panel InformationOrdered By: Andrew Hernández on 06-25-2021 SARS Antigen (LFIA) [facility] Estimated GFR () 34 mL/Min [facility] Comment on above: GFR estimated refere nce range: According to KDOQI guidelines, <60 ml/min/1.73m2 is sufficient to diagnose a patient with chronic kidney disease. Pharmacy Creatinine Clearance (Chem 365.00 [facility] Platelet mean volume Auto (B ld) [Entitic vol]Ordered By: Andrew Hernández on 06-25-2021 Platelet mean volume (Bld) [Entitic vol] 10.0 fL 6.6-10.1 [facility] Platelet poor plasma interna tional normalized ratio (INR) by coagulation assay (relatOrdered By: Andrew Hernández on 06-25-2021 INR Coag (PPP) [Relative time] 1.1 {INR} [facility] Comment on above: INR Therapeutic Rang [...] 06-25-2021 Platelets (Bld) [#/Vol] 171 10*3/uL 150-450 [facility] Comment on above: Delta: 119 on 0453 Protein [Mass/volume] in Ser um or PlasmaOrdered By: Andrew Hernández on 06-25-2021 Protein [Mass/Vol] 6.6 g/dL 6.1-7.9 [facility] RBC Auto (Bld) [#/Vol]Ordere d By: Andrew Hernández on 06-25-2021 RBC (Bld) [#/Vol] 4.21 10*6/uL 3.90-5.60 [facility] Serum or plasma C reactive p rotein measurement (mass/volume)Ordered By: Andrew Hernández on 06-25-2021 CRP [Mass/Vol] 0.9 mg/dL 0.0-1.0 [facility] Serum or plasma alanine lopez otransferase measurement without P-5'-P (enzymatic activiOrdered By: Andrew Hernández on 06-25-2021 ALT No additional P-5'-P [Catalytic activity/Vol] 13 U/L 10-60 [facility] Serum or plasma albumin/glob ulin mass ratioOrdered By: Andrew Hernández on 06-25-2021 Albumin/Globulin [Mass ratio] 1.1 {ratio} [facility] Serum or plasma alkaline cande sphatase measurement (enzymatic activity/volume)Ordered By: Andrew Hernández on 06-25-2021 ALP [Catalytic activity/Vol] 57 U/L 32-92 [facility] Serum or plasma aspartate am inotransferase measurement (enzymatic activity/volume)Ordered By: Andrew Hernández on 06-25-2021 AST [Catalytic activity/Vol] 15 U/L 10-42 [facility] Serum or plasma calcium abhijit urement (mass/volume)Ordered By: Andrew Hernández on 06-25-2021 Calcium [Mass/Vol] 9.2 mg/dL 8.2-10.2 [facility] Serum or plasma chloride marylin surement (moles/volume)Ordered By: Andrew Hernández on 06-25-2021 Chloride [Moles/Vol] 106 mmol/L 95-114 [facility] Serum or plasma glucose abhijit urement (mass/volume)Ordered By: Andrew Hernández on 06-25-2021 Glucose [Mass/Vol] 177 mg/dL 70-100 [facility] Comment on above: ADA recommended refe rence rangeRandom Glucose Reference Range is dependent on time and content of last meal. Glucose of more than 200 mg/dL in a nonstressed, ambulatory subject supports the diagnosis of Diabetes Mellitus. Serum or plasma potassium me asurement (moles/volume)Ordered By: Andrew Hernnádez on 06-25-2021 Potassium [Moles/Vol] 4.2 mmol/L 3.5-5.1 [facility] Serum or plasma sodium measu rement (moles/volume)Ordered By: Andrew Hernández on 06-25-2021 Sodium [Moles/Vol] 142 mmol/L 136-146 [facility] Serum or plasma total biliru bin measurement (mass/volume)Ordered By: Andrew Hernández on 06-25-2021 Bilirubin [Mass/Vol] 0.4 mg/dL 0.3-1.2 [facility] Serum or plasma total carbon dioxide measurement (moles/volume)Ordered By: Andrew Hernández on 06-25-2021 CO2 [Moles/Vol] 24.1 mmol/L 22.0-30.0 [facility] Serum or plasma urea nitroge n measurement (mass/volume)Ordered By: Andrew Hernández on 06-25-2021 Urea nitrogen [Mass/Vol] 41 mg/dL 9-23 [facility] Troponin I.cardiac [Mass/vol ume] in Serum or Plasma by High sensitivity methodOrdered By: Andrew Hernández on 06-25-2021 Troponin I.cardiac High sensitivity method [Mass/Vol] 12 pg/mL 0-20 [facility] Albumin [Mass/volume] in Ser um or PlasmaOrdered By: Julee Davies on 06-24-2021 Albumin [Mass/Vol] 2.9 g/dL 3.2-5.5 [facility] Basophils Auto (Bld) [#/Vol] Ordered By: Julee Davies on 06-24-2021 Basophils (Bld) [#/Vol] 0.0 10*3/uL 0.0-0.2 [facility] Basophils/100 WBC Auto (Bld) Ordered By: Julee Davies on 06-24-2021 Basophils/100 WBC (Bld) 0.6 % [facility] Blood hemoglobin measurement (mass/volume)Ordered By: Julee Davies on 06-24-2021 Hemoglobin (Bld) [Mass/Vol] 10.8 g/dL 13.0-17.0 [facility] Blood leukocytes automated c ount (number/volume)Ordered By: Julee Davies on 06-24-2021 WBC (Bld) [#/Vol] 6.6 10*3/uL 4.5-11.0 [facility] Creatinine and Glomerular fi ltration rate.predicted panel (S/P/Bld)Ordered By: Julee Davies on 06-24-2021 Creatinine [Mass/Vol] 2.17 mg/dL 0.64-1.27 [facility] Eosinophils Auto (Bld) [#/Vo l]Ordered By: Julee Davies on 06-24-2021 Eosinophils (Bld) [#/Vol] 0.3 10*3/uL 0.0-0.45 [facility] Eosinophils/100 WBC Auto (Bl d)Ordered By: Julee Davies on 06-24-2021 Eosinophils/100 WBC (Bld) 5.2 % [facility] Erythrocyte distribution wid th Auto (RBC) [Ratio]Ordered By: Julee Davies on 06-24-2021 Erythrocyte distribution width (RBC) [Ratio] 15.8 % 12.0-14.8 [facility] Estimated glomerular filtrat ion rate (GFR) non- AmericanOrdered By: Julee Davies on 06-24-2021 GFR/1.73 sq M.predicted among non-blacks MDRD (S/P/Bld) [Vol rate/Area] 30 mL/Min [facility] Globulin Calc (S) [Mass/Vol] Ordered By: Julee Davies on 06-24-2021 Globulin (S) [Mass/Vol] 2.4 g/dL [facility] Hematocrit Auto (Bld) [Volum e fraction]Ordered By: Julee Davies on 06-24-2021 Hematocrit (Bld) [Volume fraction] 33.0 % 38.8-50.0 [facility] Laboratory - Chemistry and C hemistry - challengeOrdered By: Julee Davies on 06-24-2021 Magnesium [Mass/Vol] 1.9 mg/dL 1.6-2.6 [facility] Natriuretic peptide B (Bld) [Mass/Vol] 224.0 pg/mL 5-100 [facility] Laboratory - Hematology and Cell countsOrdered By: Julee Davies on 06-24-2021 Nucleated RBC/100 WBC (Bld) [Ratio] 0.1 % 0-0.5 [facility] Lymphocytes Auto (Bld) [#/Vo l]Ordered By: Julee Davies on 06-24-2021 Lymphocytes (Bld) [#/Vol] 0.8 10*3/uL 1.00-4.8 [facility] Lymphocytes/100 WBC Auto (Bl d)Ordered By: Julee Davies on 06-24-2021 Lymphocytes/100 WBC (Bld) 11.4 % [facility] MCH Auto (RBC) [Entitic mass ]Ordered By: Julee Davies on 06-24-2021 MCH (RBC) [Entitic mass] 27.7 pg 27.5-35.2 [facility] MCHC Auto (RBC) [Mass/Vol]Or dered By: Julee Davies on 06-24-2021 MCHC (RBC) [Mass/Vol] 32.7 g/dL 32.5-35.6 [facility] MCV Auto (RBC) [Entitic vol] Ordered By: Julee Davies on 06-24-2021 MCV (RBC) [Entitic vol] 84.6 fL 83.5-101 [facility] Monocytes Auto (Bld) [#/Vol] Ordered By: Julee Davies on 06-24-2021 Monocytes (Bld) [#/Vol] 0.5 10*3/uL 0.0-0.8 [facility] Monocytes/100 WBC Auto (Bld) Ordered By: Julee Davies on 06-24-2021 Monocytes/100 WBC (Bld) 7.4 % [facility] Neutrophils Auto (Bld) [#/Vo l]Ordered By: Julee Davies on 06-24-2021 Neutrophils (Bld) [#/Vol] 5.0 10*3/uL 1.8-7.7 [facility] Neutrophils/100 WBC Auto (Bl d)Ordered By: Julee Davies on 06-24-2021 Neutrophils/100 WBC (Bld) 75.4 % [facility] No Panel InformationOrdered By: Julee Davies on 06-24-2021 Estimated GFR () 36 mL/Min [facility] Comment on above: GFR estimated refere nce range: According to KDOQI guidelines, <60 ml/min/1.73m2 is sufficient to diagnose a patient with chronic kidney disease. Pharmacy Creatinine Clearance (Chem N/A [facility] Platelet mean volume Auto (B ld) [Entitic vol]Ordered By: Julee Davies on 06-24-2021 Platelet mean volume (Bld) [Entitic vol] 9.8 fL 6.6-10.1 [facility] Platelets Auto (Bld) [#/Vol] Ordered By: Julee Davies on 06-24-2021 Platelets (Bld) [#/Vol] 119 10*3/uL 150-450 [facility] Protein [Mass/volume] in Ser um or PlasmaOrdered By: Julee Davies on 06-24-2021 Protein [Mass/Vol] 5.3 g/dL 6.1-7.9 [facility] RBC Auto (Bld) [#/Vol]Ordere d By: Julee Davies on 06-24-2021 RBC (Bld) [#/Vol] 3.90 10*6/uL 3.90-5.60 [facility] Serum or plasma alanine lopez otransferase measurement without P-5'-P (enzymatic activiOrdered By: Julee Davies on 06-24-2021 ALT No additional P-5'-P [Catalytic activity/Vol] 7 U/L 10-60 [facility] Serum or plasma albumin/glob ulin mass ratioOrdered By: Julee Davies on 06-24-2021 Albumin/Globulin [Mass ratio] 1.2 {ratio} [facility] Serum or plasma alkaline cande sphatase measurement (enzymatic activity/volume)Ordered By: Julee Davies on 06-24-2021 ALP [Catalytic activity/Vol] 56 U/L 32-92 [facility] Serum or plasma aspartate am inotransferase measurement (enzymatic activity/volume)Ordered By: Julee Davies on 06-24-2021 AST [Catalytic activity/Vol] 13 U/L 10-42 [facility] Serum or plasma calcium abhijit urement (mass/volume)Ordered By: Julee Davies on 06-24-2021 Calcium [Mass/Vol] 8.9 mg/dL 8.2-10.2 [facility] Serum or plasma chloride marylin surement (moles/volume)Ordered By: Julee Davies on 06-24-2021 Chloride [Moles/Vol] 109 mmol/L 95-114 [facility] Serum or plasma glucose abhijit urement (mass/volume)Ordered By: Julee Davies on 06-24-2021 Glucose [Mass/Vol] 160 mg/dL 70-100 [facility] Comment on above: ADA recommended refe rence rangeRandom Glucose Reference Range is dependent on time and content of last meal. Glucose of more than 200 mg/dL in a nonstressed, ambulatory subject supports the diagnosis of Diabetes Mellitus. Serum or plasma potassium me asurement (moles/volume)Ordered By: Julee Davies on 06-24-2021 Potassium [Moles/Vol] 4.1 mmol/L 3.5-5.1 [facility] Serum or plasma sodium measu rement (moles/volume)Ordered By: Julee Davies on 06-24-2021 Sodium [Moles/Vol] 144 mmol/L 136-146 [facility] Serum or plasma total biliru bin measurement (mass/volume)Ordered By: Julee Davies on 06-24-2021 Bilirubin [Mass/Vol] 0.5 mg/dL 0.3-1.2 [facility] Serum or plasma total carbon dioxide measurement (moles/volume)Ordered By: Julee Davies on 06-24-2021 CO2 [Moles/Vol] 25.7 mmol/L 22.0-30.0 [facility] Serum or plasma urea nitroge n measurement (mass/volume)Ordered By: Julee Davies on 06-24-2021 Urea nitrogen [Mass/Vol] 43 mg/dL 9-23 [facility] Tacrolimus [Mass/volume] in BloodOrdered By: Julee Davies on 06-24-2021 Tacrolimus (Bld) [Mass/Vol] 8.1 ng/mL [facility] Comment on above: This test was vane christine and its performance characteristicsdetermined by [facility]. It has not been cleared orapproved by the Food and Drug Administration. Trough (immediately following transplant) 15.0 Trough (steady state, 2 weeks or more after transplant): 3.0 - 8.0 Performed by LC-MS/MS technology.Performed at: [address] [id number] Director: Mynor Nixon MD, Phone: [phone] Albumin [Mass/volume] in Ser um or PlasmaOrdered By: Julee Davies on 05-27-2021 Albumin [Mass/Vol] 3.1 g/dL 3.2-5.5 [facility] Basophils Auto (Bld) [#/Vol] Ordered By: Julee Davies on 05-27-2021 Basophils (Bld) [#/Vol] 0.0 10*3/uL 0.0-0.2 [facility] Basophils/100 WBC Auto (Bld) Ordered By: Julee Davies on 05-27-2021 Basophils/100 WBC (Bld) 0.7 % [facility] Blood hemoglobin measurement (mass/volume)Ordered By: Julee Davies on 05-27-2021 Hemoglobin (Bld) [Mass/Vol] 11.4 g/dL 13.0-17.0 [facility] Blood leukocytes automated c ount (number/volume)Ordered By: Julee Davies on 05-27-2021 WBC (Bld) [#/Vol] 6.1 10*3/uL 4.5-11.0 [facility] Cholesterol [Mass/volume] in Serum or PlasmaOrdered By: Julee Davies on 05-27-2021 Cholesterol [Mass/Vol] 129 mg/dL 140-200 [facility] Comment on above: Chol less than 200 m g/dl low riskChol 201-239 mg/dl borderline riskChol 240 mg/dl and greater high risk Cholesterol in LDL Calc [Mas s/Vol]Ordered By: Julee Davies on 03-08-2022 Cholesterol in LDL [Mass/Vol] 67 mg/dL 0-100 [facility] Comment on above: LDL ATP III CLASSIFI CATIONLDL less than 100 mg/dL OptimalLDL 100-129 mg/dL Near or above optimalLDL 130-159 mg/dL Borderline highLDL 160-189 mg/dL HighLDL greater than 189 mg/dL Very high Cholesterol in VLDL Calc [Ma ss/Vol]Ordered By: Julee Davies on 05-27-2021 Cholesterol in VLDL [Mass/Vol] 27 mg/dL [facility] Creatinine and Glomerular fi ltration rate.predicted panel (S/P/Bld)Ordered By: Julee Davies on 05-27-2021 Creatinine [Mass/Vol] 1.86 mg/dL 0.64-1.27 [facility] Eosinophils Auto (Bld) [#/Vo l]Ordered By: Julee Davies on 05-27-2021 Eosinophils (Bld) [#/Vol] 0.2 10*3/uL 0.0-0.45 [facility] Eosinophils/100 WBC Auto (Bl d)Ordered By: Julee Davies on 05-27-2021 Eosinophils/100 WBC (Bld) 3.7 % [facility] Erythrocyte distribution wid th Auto (RBC) [Ratio]Ordered By: Julee Davies on 05-27-2021 Erythrocyte distribution width (RBC) [Ratio] 14.9 % 12.0-14.8 [facility] Estimated glomerular filtrat ion rate (GFR) non- AmericanOrdered By: Julee Davies on 05-27-2021 GFR/1.73 sq M.predicted among non-blacks MDRD (S/P/Bld) [Vol rate/Area] 35 mL/Min [facility] Globulin Calc (S) [Mass/Vol] Ordered By: Julee Davies on 05-27-2021 Globulin (S) [Mass/Vol] 2.9 g/dL [facility] Glucose mean value [Mass/vol ume] in Blood Estimated from glycated hemoglobinOrdered By: Julee Davies on 05-27-2021 Average glucose Estimated from glycated hemoglobin (Bld) [Mass/Vol] 209 mg/dL [facility] Hematocrit Auto (Bld) [Volum e fraction]Ordered By: Julee Davies on 05-27-2021 Hematocrit (Bld) [Volume fraction] 34.1 % 38.8-50.0 [facility] Hemoglobin A1c percentageOrd ered By: Julee Davies on 05-27-2021 HbA1c (Bld) [Mass fraction] 8.9 % 4.3-5.6 [facility] Comment on above: Increased risk for d iabetes: 5.7 - 6.4diabetes: >6.4glycemic control for adults with diabetes: <7.0 Laboratory - Hematology and Cell countsOrdered By: Julee Davies on 05-27-2021 Nucleated RBC/100 WBC (Bld) [Ratio] 0.2 % 0-0.5 [facility] Lymphocytes Auto (Bld) [#/Vo l]Ordered By: Julee Davies on 05-27-2021 Lymphocytes (Bld) [#/Vol] 1.1 10*3/uL 1.00-4.8 [facility] Lymphocytes/100 WBC Auto (Bl d)Ordered By: Julee Davies on 05-27-2021 Lymphocytes/100 WBC (Bld) 17.9 % [facility] MCH Auto (RBC) [Entitic mass ]Ordered By: Julee Davies on 05-27-2021 MCH (RBC) [Entitic mass] 28.3 pg 27.5-35.2 [facility] MCHC Auto (RBC) [Mass/Vol]Or dered By: Julee Davies on 05-27-2021 MCHC (RBC) [Mass/Vol] 33.5 g/dL 32.5-35.6 [facility] MCV Auto (RBC) [Entitic vol] Ordered By: Julee Davies on 05-27-2021 MCV (RBC) [Entitic vol] 84.5 fL 83.5-101 [facility] Monocytes Auto (Bld) [#/Vol] Ordered By: Julee Davies on 05-27-2021 Monocytes (Bld) [#/Vol] 0.5 10*3/uL 0.0-0.8 [facility] Monocytes/100 WBC Auto (Bld) Ordered By: Julee Davies on 05-27-2021 Monocytes/100 WBC (Bld) 7.9 % [facility] Neutrophils Auto (Bld) [#/Vo l]Ordered By: Julee Davies on 05-27-2021 Neutrophils (Bld) [#/Vol] 4.3 10*3/uL 1.8-7.7 [facility] Neutrophils/100 WBC Auto (Bl d)Ordered By: Julee Davies on 05-27-2021 Neutrophils/100 WBC (Bld) 69.8 % [facility] No Panel InformationOrdered By: Julee Davies on 05-27-2021 25-Hydroxy Vitamin D Total 23.8 ng/mL 30-100 [facility] Comment on above: VITAMIN D STATUS 25( [place])VITAMIN D RANGE (ng/mL) Deficient <20 Insufficient 20 to <30Sufficient 30 to 100Reference: Ely MF,Brad NC, Kristy ORTEGA, et al. Evaluation,treatment, and prevention of vitamin D deficiency; an Endocrine Society clinical practice guideline. JCEM. 2010; 96(7):1911-30. Estimated GFR () 43 mL/Min [facility] Comment on above: GFR estimated refere nce range: According to KDOQI guidelines, <60 ml/min/1.73m2 is sufficient to diagnose a patient with chronic kidney disease. Pharmacy Creatinine Clearance (Chem N/A [facility] Platelet Estimate Decreased Normal [facility] Platelet Morphology Comment Normal Normal [facility] Platelet mean volume Auto (B ld) [Entitic vol]Ordered By: Julee Davies on 05-27-2021 Platelet mean volume (Bld) [Entitic vol] 10.6 fL 6.6-10.1 [facility] Platelets Auto (Bld) [#/Vol] Ordered By: Julee Davies on 05-27-2021 Platelets (Bld) [#/Vol] 129 10*3/uL 150-450 [facility] Protein [Mass/volume] in Ser um or PlasmaOrdered By: Julee Davies on 05-27-2021 Protein [Mass/Vol] 6.0 g/dL 6.1-7.9 [facility] RBC Auto (Bld) [#/Vol]Ordere d By: Julee Davies on 05-27-2021 RBC (Bld) [#/Vol] 4.03 10*6/uL 3.90-5.60 [facility] RBC morphologyOrdered By: Maurice Davies on 05-27-2021 RBC morphology finding Nom (Bld) Normal [facility] Serum or plasma alanine lopez otransferase measurement without P-5'-P (enzymatic activiOrdered By: Julee Davies on 05-27-2021 ALT No additional P-5'-P [Catalytic activity/Vol] 7 U/L 10-60 [facility] Serum or plasma albumin/glob ulin mass ratioOrdered By: Julee Davies on 05-27-2021 Albumin/Globulin [Mass ratio] 1.1 {ratio} [facility] Serum or plasma alkaline cande sphatase measurement (enzymatic activity/volume)Ordered By: Julee Davies on 05-27-2021 ALP [Catalytic activity/Vol] 52 U/L 32-92 [facility] Serum or plasma aspartate am inotransferase measurement (enzymatic activity/volume)Ordered By: Julee Davies on 05-27-2021 AST [Catalytic activity/Vol] 11 U/L 10-42 [facility] Serum or plasma calcium abhijit urement (mass/volume)Ordered By: Julee Davies on 05-27-2021 Calcium [Mass/Vol] 9.0 mg/dL 8.2-10.2 [facility] Serum or plasma chloride marylin surement (moles/volume)Ordered By: Julee Davies on 05-27-2021 Chloride [Moles/Vol] 104 mmol/L 95-114 [facility] Serum or plasma glucose abhijit urement (mass/volume)Ordered By: Julee Davies on 05-27-2021 Glucose [Mass/Vol] 183 mg/dL 70-100 [facility] Comment on above: ADA recommended refe rence rangeRandom Glucose Reference Range is dependent on time and content of last meal. Glucose of more than 200 mg/dL in a nonstressed, ambulatory subject supports the diagnosis of Diabetes Mellitus. Serum or plasma high density lipoprotein (HDL) cholesterol measurementOrdered By: Julee Davies on 05-27-2021 Cholesterol in HDL [Mass/Vol] 35 mg/dL 29-71 [facility] Comment on above: HDL CHOL ATP-III CLA SSIFICATION Cardiovascular RiskHDL > or equal to 60 mg/dL LOWHDL < 40 mg/dL HIGH Serum or plasma potassium me asurement (moles/volume)Ordered By: Julee Davies on 05-27-2021 Potassium [Moles/Vol] 4.1 mmol/L 3.5-5.1 [facility] Serum or plasma sodium measu rement (moles/volume)Ordered By: Julee Davies on 05-27-2021 Sodium [Moles/Vol] 140 mmol/L 136-146 [facility] Serum or plasma total biliru bin measurement (mass/volume)Ordered By: Julee Davies on 05-27-2021 Bilirubin [Mass/Vol] 0.4 mg/dL 0.3-1.2 [facility] Serum or plasma total carbon dioxide measurement (moles/volume)Ordered By: Julee Davies on 05-27-2021 CO2 [Moles/Vol] 26.1 mmol/L 22.0-30.0 [facility] Serum or plasma total choles terol/high density lipoprotein (HDL) cholesterol mass ratOrdered By: Julee Davies on 05-27-2021 Cholesterol.total/Denise sterol in HDL [Mass ratio] 3.7 {ratio} [facility] Serum or plasma urea nitroge n measurement (mass/volume)Ordered By: Julee Davies on 05-27-2021 Urea nitrogen [Mass/Vol] 38 mg/dL 9-23 [facility] TSH DL <= 0.005 mIU/L QnOrde red By: Julee Davies on 05-27-2021 TSH Qn 4.10 m[IU]/L 0.45-5.33 [facility] Triglyceride [Mass/volume] i n Serum or PlasmaOrdered By: Julee Davies on 05-27-2021 Triglyceride [Mass/Vol] 136 mg/dL 35-149 [facility] Comment on above: TRIG ATP III [...] Asymptomtic Not detected Normal See Below [facility] [address] DO Work Phone: Comment on above: SOURCE: Nasal, Nasop haryngealReference Range: Not Detected.This test has received FDA Emergency Use Authorization (EUA) and has been verified by [facility] ([facility]). This test is only authorized for the duration of time that circumstances exist to justify the authorization of the emergency use of in vitro diagnostic tests for the detection of SARS-CoV-2 virus and/or diagnosis of COVID-19 infection under section 564(b)(1) of the Act, 21 U.S.C. 360bbb-3(b)(1), unless the authorization is terminated or revoked sooner. [facility] is certified under CLIA-88 as qualified to perform high complexity testing. Testing is performed in the [facility] located at [address] [place] [address].SARS-CoV-2/Flu/RSV Multiplex Test: Fact sheet for providers: https://www.fda.gov/media/389791/downloadFact sheet for patients: https://www.fda.gov/media/933325/download Coronavirus 2019 RNA by PCR, Screening Asymptomtic Canceled [facility] 260 DO Work Phone: Comment on above: SOURCE: Nasal, Nasop haryngeal.This test has received FDA Emergency Use Authorization (EUA) and has been verified by [facility] ([facility]). This test is only authorized for the duration of time that circumstances exist to justify the authorization of the emergency use of in vitro diagnostic tests for the detection of SARS-CoV-2 virus and/or diagnosis of COVID-19 infection under section 564(b)(1) of the Act, 21 U.S.C. 360bbb-3(b)(1), unless the authorization is terminated or revoked sooner. [facility] is certified under CLIA-88 as qualified to perform high complexity testing. Testing is performed in the [facility] located at [address] [place] [address].SARS-CoV-2/Flu/RSV Multiplex Test: Fact sheet for providers: https://www.fda.gov/media/139620/downloadFact sheet for patients: https://www.fda.gov/media/841745/download Laboratory - Chemistry and C hemistry - challengeon 12-24-2020 Glucose [Mass/Vol] 203 mg/dL above high threshold 74 - 99 [facility] 260 DO Work Phone: Laboratory - Hematology and Cell countson 12-24-2020 Erythrocyte distribution width (RBC) [Ratio] 12.7 % See Below [facility] 260 DO Work Phone: Comment on above: Reference Range: 11. 5 - 14.5 Hematocrit (Bld) [Volume fraction] 35.7 % below low threshold See Below [facility] 260 DO Work Phone: Comment on above: Reference Range: 41. 0 - 52.0 Hemoglobin (Bld) [Mass/Vol] 11.7 g/dL below low threshold See Below [facility] 260 DO Work Phone: Comment on above: Reference Range: 13. 5 - 17.5 MCHC (RBC) [Mass/Vol] 32.8 g/dL See Below [facility] 260 DO Work Phone: Comment on above: Reference Range: 32. 0 - 36.0 MCV (RBC) [Entitic vol] 91 fL 80 - 100 [facility] 260 DO Work Phone: Platelets (Bld) [#/Vol] 105 10*3/uL below lo w threshold 150 - 450 [facility] 260 DO Work Phone: RBC (Bld) [#/Vol] 3.92 {x10E12/L} below low threshold See Below [facility] 260 DO Work Phone: Comment on above: Reference Range: 4.5 0 - 5.90 WBC (Bld) [#/Vol] 5.1 10*3/uL 4.4 - 11.3 [facility]Car diolo [facility] 260 DO Work Phone: No Panel Informationon 12-24 Please click on the link to view the study images Normal [facility] 260 DO Work Phone: 0.0 {/100_WBC} 0.0-0.0 [facility] 260 DO Work Phone: Renal Function Panelon 12-24 Albumin BCP dye [Mass/Vol] 3.6 g/dL 3.4 - 5.0 [facility] 260 DO Work Phone: Anion gap [Moles/Vol] 15 mmol/L 10 - 20 [facility] 260 DO Work Phone: Calcium [Mass/Vol] 9.0 mg/dL 8.6 - 10.6 [facility] 260 DO Work Phone: [phone] Chloride [Moles/Vol] 109 mmol/L above high threshold 98 - 107 [facility] 260 DO Work Phone: CO2 [Moles/Vol] 24 mmol/L 21 - 32 [facility] 260 DO Work Phone: Creatinine [Mass/Vol] 1.77 mg/dL above high threshold See Below [facility] 260 DO Work Phone: Comment on [...] 4.5 mmol/L 3.5 - 5.3 [facility] 260 DO Work Phone: Sodium [Moles/Vol] 143 mmol/L 136 - 145 [facility] 260 DO Work Phone: Urea nitrogen [Mass/Vol] 49 mg/dL above high threshold 6 - 23 [facility] 260 DO Work Phone: Renal Function Panel 45 {mL/min/1.73m2} Abnormal >60 [facility] 260 DO Work Phone: Comment on above: CALCULATIONS OF ERNST MATED GFR ARE PERFORMED USING THE MDRD STUDY EQUATION FOR THE IDMS-TRACEABLE CREATININE METHODS. CLIN CHEM 2007;53:766-72 Renal Function Panel 37 {mL/min/1.73m2} Abnormal >60 [facility] 260 DO Work Phone: Tacrolimuson 12-24-2020 Tacrolimus (Bld) [Mass/Vol] 5.4 ng/mL 2.0 - 15.0 [facility] 260 DO Work Phone: Comment on above: NOTE: Result was obt ained using a chemiluminescent microparticle immunoassay (CMIA) on the Clinic Scheduler i system.Optimal therapeutic ranges for immuno-suppressant drugs depend upon an individualpatient's current clinical state, type oforgan transplant, time post-transplant,co-administration of other immunosuppressants,and other clinical factors. The results ofthis test should be correlated with additionalclinical and laboratory data before changesin treatment regimens are made. CT Head without Contraston 1 CT Head limited WO contrast Normal [facility] 260 DO Work Phone: [phone] Laboratory - Chemistry and C hemistry - challengeon 12-23-2020 Glucose [Mass/Vol] 151 mg/dL above high threshold 74 - 99 [facility] 260 DO Work Phone: [phone] Glucose [Mass/Vol] 241 mg/dL above high threshold 74 - 99 [facility] 260 DO Work Phone: [phone] Glucose [Mass/Vol] 195 mg/dL above high threshold 74 - 99 [facility] 260 DO Work Phone: [phone] Glucose [Mass/Vol] 160 mg/dL above high threshold 74 - 99 [facility] 260 DO Work Phone: [phone] Laboratory - Hematology and Cell countson 12-23-2020 Erythrocyte distribution width (RBC) [Ratio] 12.5 % See Below [facility] 260 DO Work Phone: [phone] Comment on above: Reference Range: 11. 5 - 14.5 Hematocrit (Bld) [Volume fraction] 34.3 % below low threshold See Below [facility] 260 DO Work Phone: [phone] Comment on above: Reference Range: 41. 0 - 52.0 Hemoglobin (Bld) [Mass/Vol] 11.1 g/dL below low threshold See Below [facility] 260 DO Work Phone: [phone] Comment on above: Reference Range: 13. 5 - 17.5 MCHC (RBC) [Mass/Vol] 32.4 g/dL See Below [facility] 260 DO Work Phone: [phone] Comment on above: Reference Range: 32. 0 - 36.0 MCV (RBC) [Entitic vol] 90 fL 80 - 100 M [facility] 260 DO Work Phone: [phone] Platelets (Bld) [#/Vol] 106 10*3/uL below lo w threshold 150 - 450 [facility] 260 DO Work Phone: [phone] RBC (Bld) [#/Vol] 3.83 {x10E12/L} below low threshold See Below [facility] 260 DO Work Phone: [phone] Comment on above: Reference Range: 4.5 0 - 5.90 WBC (Bld) [#/Vol] 5.2 10*3/uL 4.4 - 11.3 [facility] 260 DO Work Phone: [phone] No Panel Informationon 12-23 0.0 {/100_WBC} 0.0-0.0 [facility] 260 DO Work Phone: [phone] Renal Function Panelon 12-23 Albumin BCP dye [Mass/Vol] 3.6 g/dL 3.4 - 5.0 [facility] 260 DO Work Phone: [phone] Anion gap [Moles/Vol] 14 mmol/L 10 - 20 [facility] 260 DO Work Phone: [phone] Calcium [Mass/Vol] 8.9 mg/dL 8.6 - 10.6 [facility] 260 DO Work Phone: [phone] Chloride [Moles/Vol] 109 mmol/L above high threshold 98 - 107 [facility] 260 DO Work Phone: [phone] CO2 [Moles/Vol] 23 mmol/L 21 - 32 [facility] 260 DO Work Phone: [phone] Creatinine [Mass/Vol] 1.71 mg/dL above high threshold See Below [facility] 260 DO Work Phone: Comment on [...] 4.2 mmol/L 3.5 - 5.3 [facility] 260 DO Work Phone: Sodium [Moles/Vol] 142 mmol/L 136 - 145 [facility] 260 DO Work Phone: Urea nitrogen [Mass/Vol] 50 mg/dL above high threshold 6 - 23 [facility] 260 DO Work Phone: Renal Function [...] [Mass/Vol] 5.9 ng/mL 2.0 - 15.0 [facility] 260 DO Work Phone: Comment on above: NOTE: Result was obt ained using a chemiluminescent microparticle immunoassay (CMIA) on the Clinic Scheduler i system.Optimal therapeutic ranges for immuno-suppressant drugs [...] [facility] 260 DO Work Phone: [phone] Glucose [Mass/Vol] 146 mg/dL above high threshold 74 - 99 [facility] 260 DO Work Phone: [phone] Glucose [Mass/Vol] 217 mg/dL above high threshold 74 - 99 [facility] 260 DO Work Phone: [phone] Glucose [Mass/Vol] 145 mg/dL above high threshold 74 - 99 [facility] 260 DO Work Phone: [phone] Glucose [Mass/Vol] 142 mg/dL above high threshold 74 - 99 [facility] 260 DO Work Phone: [phone] Laboratory - Hematology and Cell countson 12-22-2020 Erythrocyte distribution width (RBC) [Ratio] 12.6 % See Below [facility] 260 DO Work Phone: [phone] Comment on above: Reference Range: 11. 5 - 14.5 Hematocrit (Bld) [Volume fraction] 33.0 % below low threshold See Below [facility] 260 DO Work Phone: Comment on above: Reference Range: 41. 0 - 52.0 Hemoglobin (Bld) [Mass/Vol] 10.7 g/dL below low threshold See Below [facility] 260 DO Work Phone: Comment on above: Reference Range: 13. 5 - 17.5 MCHC (RBC) [Mass/Vol] 32.4 g/dL See Below [facility] 260 DO Work Phone: [phone] Comment on above: Reference Range: 32. 0 - 36.0 MCV (RBC) [Entitic vol] 91 fL 80 - 100 M [facility] 260 DO Work Phone: [phone] Platelets (Bld) [#/Vol] 107 10*3/uL below lo w threshold 150 - 450 [facility] 260 DO Work Phone: [phone] RBC (Bld) [#/Vol] 3.62 {x10E12/L} below low threshold See Below [facility] 260 DO Work Phone: [phone] Comment on above: Reference Range: 4.5 0 - 5.90 WBC (Bld) [#/Vol] 5.0 10*3/uL 4.4 - 11.3 [facility] 260 DO Work Phone: [phone] No Panel Informationon 12-22 0.0 {/100_WBC} 0.0-0.0 [facility] 260 DO Work Phone: [phone] Renal Function Panelon 12-22 Albumin BCP dye [Mass/Vol] 3.5 g/dL 3.4 - 5.0 [facility] 260 DO Work Phone: [phone] Anion gap [Moles/Vol] 15 mmol/L 10 - 20 [facility] 260 DO Work Phone: [phone] Calcium [Mass/Vol] 8.9 mg/dL 8.6 - 10.6 [facility] 260 DO Work Phone: [phone] Chloride [Moles/Vol] 111 mmol/L above high threshold 98 - 107 [facility] 260 DO Work Phone: [phone] CO2 [Moles/Vol] 23 mmol/L 21 - 32 [facility] 260 DO Work Phone: Creatinine [Mass/Vol] 2.04 mg/dL above high threshold See Below [facility] 260 DO Work Phone: Comment on above: Reference Range: 0.5 0 - 1.30 Glucose [Mass/Vol] 131 mg/dL above high threshold 74 - 99 [facility] 260 DO Work Phone: Phosphate [Mass/Vol] 3.3 mg/dL 2.5 - 4.9 [facility] 260 DO Work Phone: Comment on [...] Function Panel 32 {mL/min/1.73m2} Abnormal >60 [facility] 260 DO Work Phone: Tacrolimuson 12-22-2020 Tacrolimus (Bld) [Mass/Vol] 5.5 ng/mL 2.0 - 15.0 [facility] 260 DO Work Phone: Comment on above: NOTE: Result was obt ained using a chemiluminescent microparticle immunoassay (CMIA) on the Clinic Scheduler i system.Optimal therapeutic ranges for immuno-suppressant drugs depend upon an individualpatient's current clinical state, type oforgan transplant, time post-transplant,co-administration of other immunosuppressants,and other clinical factors. The results ofthis test should be correlated with additionalclinical and laboratory data before changesin treatment regimens are made. CT Chest Abdomen Pelvis wo C ontraston 12-21-2020 CT Chest and Abdomen and Pelvis WO contrast Normal [facility] 260 DO Work Phone: Hemoglobin A1Con [...] 7-12 <8.0 0- 6 7.5-8.5 Citizen Of [place] [employer]. Diabetes Care 33(S1)Mar 2009. HbA1c (Bld) [Mass fraction] 6.8 % Abnormal [facility] 260 DO Work Phone: Comment on above: Diagnosis of Diabete s-Adults Non-Diabetic: < or = 5.6% Increased risk for developing diabetes: 5.7-6.4% Diagnostic of diabetes: > or = 6.5%. Monitoring of Diabetes Age (y) Therapeutic Goal (%) Adults: >18 <7.0 Pediatrics: 13-18 <7.5 7-12 <8.0 0- 6 7.5-8.5 Citizen Of [place] [employer]. Diabetes Care 33(S1), Mar 2009. Hemoglobin A1C Canceled [facility] 260 DO Work Phone: Laboratory - Chemistry and C hemistry - challengeon 12-21-2020 Glucose [Mass/Vol] 191 mg/dL above high threshold 74 - 99 [facility] 260 DO Work Phone: Glucose [Mass/Vol] 203 mg/dL above high threshold 74 - 99 [facility] 260 DO Work Phone: [phone] Glucose [Mass/Vol] 229 mg/dL above high threshold 74 - 99 [facility] 260 DO Work Phone: [phone] Glucose [Mass/Vol] 136 mg/dL above high threshold 74 - 99 [facility] 260 DO Work Phone: [phone] Laboratory - Hematology and Cell countson 12-21-2020 Erythrocyte distribution width (RBC) [Ratio] 12.8 % See Below [facility] 260 DO Work Phone: [phone] Comment on above: Reference Range: 11. 5 - 14.5 Hematocrit (Bld) [Volume fraction] 35.6 % below low threshold See Below [facility] 260 DO Work Phone: [phone] Comment on above: Reference Range: 41. 0 - 52.0 Hemoglobin (Bld) [Mass/Vol] 12.0 g/dL below low threshold See Below [facility] 260 DO Work Phone: Comment on [...] [facility] 260 DO Work Phone: [phone] RBC (Bld) [#/Vol] 4.01 {x10E12/L} below low threshold See Below [facility] 260 DO Work Phone: [phone] Comment on above: Reference Range: 4.5 0 - 5.90 WBC (Bld) [#/Vol] 6.2 10*3/uL 4.4 - 11.3 [facility] 260 DO Work Phone: No Panel Informationon 12-21 0.0 {/100_WBC} 0.0-0.0 [facility] 260 DO Work Phone: [phone] Renal Function Panelon 12-21 Albumin BCP dye [Mass/Vol] 3.8 g/dL 3.4 - 5.0 [facility] 260 DO Work Phone: [phone] Anion gap [Moles/Vol] 15 mmol/L 10 - 20 [facility] 260 DO Work Phone: [phone] Calcium [Mass/Vol] 8.8 mg/dL 8.6 - 10.6 [facility] 260 DO Work Phone: [phone] Chloride [Moles/Vol] 110 mmol/L above high threshold 98 - 107 [facility] 260 DO Work Phone: [phone] CO2 [Moles/Vol] 23 mmol/L 21 - 32 [facility] 260 DO Work Phone: [phone] Creatinine [Mass/Vol] 2.22 mg/dL above high threshold See Below [facility] 260 DO Work Phone: [phone] Comment on above: Reference Range: 0.5 0 [...] 4.1 mmol/L 3.5 - 5.3 [facility] 260 DO Work Phone: Sodium [Moles/Vol] [...] a chemiluminescent microparticle immunoassay (CMIA) on the Clinic Scheduler i system.Optimal therapeutic ranges for immuno-suppressant drugs depend upon an individualpatient's current clinical state, type oforgan transplant, time post-transplant,co-administration of other immunosuppressants,and other clinical factors. The results ofthis test should be correlated with additionalclinical and laboratory data before changesin treatment regimens are made. Coronavirus 2019 RNA by PCR, Symptomaticon 12-20-2020 Coronavirus 2019 RNA by PCR, Symptomatic Not detected Normal See Below [facility] 260 DO Work Phone: Comment on above: SOURCE: Nasal, Nasop haryngealReference Range: Not Detected.This test has received FDA Emergency Use Authorization (EUA) and has been verified by [facility] ([facility]). This test is only authorized for the duration of time that circumstances exist to justify the authorization of the emergency use of in vitro diagnostic tests for the detection of SARS-CoV-2 virus and/or diagnosis of COVID-19 infection under section 564(b)(1) of the Act, 21 U.S.C. 360bbb-3(b)(1), unless the authorization is terminated or revoked sooner. [facility] is certified under CLIA-88 as qualified to perform high complexity testing. Testing is performed in the [facility] located at [address] [place] [address].SARS-CoV-2/Flu/RSV Multiplex Test: Fact sheet for providers: https://www.fda.gov/media/590362/downloadFact sheet for patients: https://www.fda.gov/media/252974/download Date and time of symptom onset Canceled [facility] 260 DO Work Phone: Coronavirus 2019 RNA by PCR, Symptomatic Canceled [facility] 260 DO Work Phone: Comment on [...] this test method. Fact sheet for providers: www.fda.gov/media/707200/downloadFact sheet for patients: www.fda.gov/media/916577/downloadThis test has received FDA Emergency Use Authorization (EUA) and has been verified by [facility] ([facility]). This test is only authorized for the duration of time that circumstances exist to justify the authorization of the emergency use of in vitro diagnostic tests for the detection of SARS-CoV-2 virus and/or diagnosis of COVID-19 infection under section 564(b)(1) of the Act, 21 U.S.C. 360bbb-3(b)(1), unless the authorization is terminated or revoked sooner. [facility] is certified under CLIA-88 as qualified to perform high complexity testing. Testing is performed in the [facility] laboratories located at [address] [place] [address]. Folate, Serumon 12-20-2020 Folate [Mass/Vol] ng/mL >5.0 [...] above high threshold 74 - 99 [facility] 260 DO Work Phone: TSH Qn 2.00 m[IU]/L See Below [facility] 260 DO Work Phone: Comment on above: Reference Range: 0.4 4 - 3.98 TSH testing is performed using different testing methodology at [facility] than at other [facility]. Direct result comparisons should only be made within the same method. Laboratory - Coagulationon 1 aPTT Coag (PPP) [Time] Canceled [facility] 260 DO Work Phone: Comment on above: THE APTT IS NO LONGE R USED FOR MONITORING UNFRACTIONATED HEPARIN THERAPY. FOR MONITORING HEPARIN THERAPY, USE THE HEPARIN ASSAY. INR Coag (PPP) [Relative time] Canceled [facility] 260 DO Work Phone: [phone] PT Coag (PPP) [Time] Canceled MG-C niladiolo gy[facility] 260 DO Work Phone: [phone] Laboratory - Hematology and Cell countson 12-20-2020 Erythrocyte distribution width (RBC) [Ratio] 12.9 % See Below [facility] 260 DO Work Phone: [phone] Comment on above: Reference Range: 11. 5 - 14.5 Hematocrit (Bld) [Volume fraction] 35.8 % below low threshold See Below [facility] 260 DO Work Phone: [phone] Comment on above: Reference Range: 41. 0 - 52.0 Hemoglobin (Bld) [Mass/Vol] 11.7 g/dL below low threshold See Below [facility] 260 DO Work Phone: [phone] Comment on above: Reference Range: 13. 5 - 17.5 MCHC (RBC) [Mass/Vol] 32.7 g/dL See Below [facility] 260 DO Work Phone: [phone] Comment on above: Reference Range: 32. 0 - 36.0 MCV (RBC) [Entitic vol] 90 fL 80 - 100 M [facility] 260 DO Work Phone: [phone] Platelets (Bld) [#/Vol] 131 10*3/uL below lo w threshold 150 - 450 [facility] 260 DO Work Phone: [phone] RBC (Bld) [#/Vol] 3.97 {x10E12/L} below low threshold See Below [facility] 260 DO Work Phone: [phone] Comment on above: Reference Range: 4.5 0 - 5.90 WBC (Bld) [#/Vol] 7.3 10*3/uL 4.4 - 11.3 [facility] 260 DO Work Phone: Lactate, Levelon 12-20-2020 Lactate [Moles/Vol] 1.0 mmol/L 0.4 - 2.0 MG-Ca rdiolo gy-[facility] 260 DO Work Phone: Comment on above: Venipuncture immedia tely after or during the administration of Metamizole may lead to falsely low results. Testing should be performed immediately prior to Metamizole dosing. Magnesium, Serumon Magnesium [Mass/Vol] 2.65 mg/dL above high threshold See Below [facility] 260 DO Work Phone: Comment on above: Reference Range: 1.6 0 - 2.40 No Panel Informationon 12-20 82 pg/mL 0 - 99 [facility] 260 DO Work Phone: Comment on above: . <100 pg/mL - Heart failure [id number] pg/mL - Intermediate probability of acute heart. [...] XR Chest Single view Normal MG-[facility]olo [facility] 260 DO Work Phone: Renal Function Panelon 12-20 Albumin BCP dye [Mass/Vol] 3.9 g/dL 3.4 - 5.0 [facility] 260 DO Work Phone: [phone] Anion gap [Moles/Vol] 17 mmol/L 10 - 20 [facility]- [facility] 260 DO Work Phone: [phone] Calcium [Mass/Vol] 9.2 mg/dL 8.6 - 10.6 [facility] 260 DO Work Phone: [phone] Chloride [Moles/Vol] 112 mmol/L above high threshold 98 - 107 [facility] 260 DO Work Phone: [phone] CO2 [Moles/Vol] 24 mmol/L 21 - 32 [facility] 260 DO Work Phone: [phone] Creatinine [Mass/Vol] 2.40 mg/dL above high threshold See Below [facility] 260 DO Work Phone: [phone] Comment on above: Reference Range: 0.5 0 - 1.30 Glucose [Mass/Vol] 211 mg/dL above high threshold 74 - 99 [facility] 260 DO Work Phone: [phone] Phosphate [Mass/Vol] 4.5 mg/dL 2.5 - 4.9 MG-[facility] 260 DO Work Phone: [phone] Comment on above: The performance waqar acteristics of phosphorus testing in heparinized plasma have been validated by the individual laboratory site where testing is performed. Testing on heparinized plasma is not approved by the FDA; however, such approval is not necessary. Potassium [Moles/Vol] 4.8 mmol/L 3.5 - 5.3 [facility] 260 DO Work Phone: [phone] [...] [Mass/Vol] 5.6 ng/mL 2.0 - 15.0 [facility] 260 DO Work Phone: Comment on above: NOTE: Result was obt ained using a chemiluminescent microparticle immunoassay (CMIA) on the Clinic Scheduler i system.Optimal therapeutic ranges for immuno-suppressant drugs depend upon an individualpatient's current clinical state, type oforgan transplant, time post-transplant,co-administration of other immunosuppressants,and other clinical factors. The results ofthis test should be correlated with additionalclinical and laboratory data before changesin treatment regimens are made. Troponin I, Serumon 12-21-19 Troponin I.cardiac [Mass/Vol] 0.02 ng/mL See Below [facility] 260 DO Work Phone: Comment on [...] different testing methodology at [facility] than at other [facility]. [...] above high threshold 211 - 911 MG-Cardiolo woo[facility] 260 DO Work Phone: Basic Metabolic PanelOrdered By: Manuel Conner on 12-19-2020 Anion gap [Moles/Vol] 11 mmol/L 9 - 17 mmol/L [employer] Phone: Calcium [Mass/Vol] 9.3 mg/dL 8.6 - 10. 4 mg/dL [employer] Phone: Chloride [Moles/Vol] 107 mmol/L 98 - 10 7 mmol/L [employer] Phone: CO2 [Moles/Vol] 23 mmol/L 20 - 31 mmol/L [employer] Phone: Creatinine [Mass/Vol] 2.53 mg/dL High 0.70 - 1.20 mg/dL [employer] Phone: GFR 30 mL/min Low >60 [employer] Phone: GFR Non- 25 mL/min Low >60 [employer] Phone: Glucose [Mass/Vol] 160 mg/dL High 70 - 99 mg/dL [employer] Phone: Interpretation and review of laboratory results Abnormal [employer] Phone: Potassium [Moles/Vol] 4.5 mmol/L 3.7 - 5.3 mmol/L [employer] Phone: Sodium [Moles/Vol] 141 mmol/L 135 - 144 mmol/L [employer] Phone: Urea nitrogen (BldV) [Mass/Vol] 76 mg/dL High 8 - 23 mg/dL [employer] Phone: Urea nitrogen/Creatinine (Bld) [Mass ratio] 30 High [employer] Phone: [employer] Phone: Laboratory - Chemistry and C hemistry - challengeOrdered By: Manuel Conner on 12-19-2020 GFR/1.73 sq M.predicted MDRD (S/P/Bld) [Vol rate/Area] [employer] Phone: Comment on above: Average GFR for 70 o r more years old: 75 mL/min/1.73sq m Chronic Kidney Disease: <60 mL/min/1.73sq m Kidney failure: <15 mL/min/1.73sq m eGFR calculated using average adult body mass. Additional eGFR calculator available at: http://www.[employer]/[facility]_crcl_2012.htm Stage 1: Some kidney damage normal GFR Stage 2: Mild kidney damage GFR 60-89 Stage 3: Moderate kidney damage GFR 30-59 Stage 4: Severe kidney damage GFR 15-29 Stage 5: Severe kidney damage GFR <15 ESRD - chronic treatment by dialysis or transplant TroponinOrdered By: Manuel Conner on 12-19-2020 Interpretation and review of laboratory results Abnormal [employer] Phone: Troponin Interp NOT REPORTED [employer] Phone: Troponin T NOT REPORTED <0.03 ng/mL [employer] Phone: Troponin, High Sensitivity 57 ng/L Critically high 0 - 22 ng/L [employer] Phone: Comment on above: High Sensitivity Troponin values cannot be compared with other Troponin methodologies. Patients with high levels of Biotin oral intake (i.e >5mg/day) may have falsely decreased Troponin levels. Samples collected within 8 hours of biotin intake may require additional information for diagnosis. [employer] Phone: Basic Metabolic PanelOrdered By: Manuel Conner on 12-18-2020 Anion gap [Moles/Vol] 14 mmol/L 9 - 17 mmol/L [employer] Phone: Calcium [Mass/Vol] 9.3 mg/dL 8.6 - 10. 4 mg/dL [employer] Phone: Chloride [Moles/Vol] 104 mmol/L 98 - 10 7 mmol/L [employer] Phone: CO2 [Moles/Vol] 22 mmol/L 20 - 31 mmol/L [employer] Phone: Creatinine [Mass/Vol] 4.1 mg/dL High 0.70 - 1.20 mg/dL [employer] Phone: GFR 17 mL/min Low >60 [employer] Phone: GFR Non- 14 mL/min Low >60 [employer] Phone: Glucose [Mass/Vol] 148 mg/dL High 70 - 99 mg/dL [employer] Phone: Potassium [Moles/Vol] 5.2 mmol/L 3.7 - 5.3 mmol/L [employer] Phone: Sodium [Moles/Vol] 140 mmol/L 135 - 144 mmol/L [employer] Phone: Urea nitrogen (BldV) [Mass/Vol] 87 mg/dL High 8 - 23 mg/dL [employer] Phone: Urea nitrogen/Creatinine (Bld) [Mass ratio] 21 High [employer] Phone: Brain Natriuretic PeptideOrd ered By: Manuel Conner on 12-18-2020 BNP Interpretation Pro-BNP Reference Range: [employer] Phone: Comment on above: Rule Out: <300 Pagan Zone: Age <50 300-450 Age 50-75 300-900 Age >75 300-1800 Usually represents mild to moderate HF but other cardiopulmonary causes cannot be ruled out. Rule In: Age <50 >450 Age 50-75 >900 Age >75 >1800 Interpretation and review of laboratory results Abnormal [employer] Phone: Natriuretic peptide B (Bld) [Mass/Vol] 846 pg/mL High <300 [employer] Phone: Comment on above: Pro-BNP results halie ot be compared to BNP results. [employer] Phone: EKG Rhythm StripOrdered By: Unknown Result on 12-18-2020 [employer] Phone: [employer] Phone: Glucose, Whole BloodOrdered By: Manuel Conner on 12-18-2020 Glucose [Mass/Vol] 152 mg/dL High 74 - 100 mg/dL [employer] Phone: Interpretation and review of laboratory results Abnormal [employer] Phone: [employer] Phone: Laboratory - Chemistry and C hemistry - challengeOrdered By: Manuel Conner on 12-18-2020 GFR/1.73 sq M.predicted MDRD (S/P/Bld) [Vol rate/Area] [employer] Phone: Comment on above: Average GFR for 70 o r more years old: 75 mL/min/1.73sq m Chronic Kidney Disease: <60 mL/min/1.73sq m Kidney failure: <15 mL/min/1.73sq m eGFR calculated using average adult body mass. Additional eGFR calculator available at: http://www.STEERads.com/multiple_crcl_2012.htm Stage 1: Some kidney damage normal GFR Stage 2: Mild kidney damage GFR 60-89 Stage 3: Moderate kidney damage GFR 30-59 Stage 4: Severe kidney damage GFR 15-29 Stage 5: Severe kidney damage GFR <15 ESRD - chronic treatment by dialysis or transplant No Panel InformationOrdered By: Manuel Conner on 12-18-2020 Interpretation and review of laboratory results Abnormal [employer] Phone: [employer] Phone: TroponinOrdered By: Manuel Conner on 12-18-2020 Troponin Interp NOT REPORTED [employer] Phone: Troponin T NOT REPORTED <0.03 ng/mL [employer] Phone: Troponin, High Sensitivity 71 ng/L Critically high 0 - 22 ng/L [employer] Phone: Comment on above: High Sensitivity Troponin [...] Consider advancement by 5-7 cm, if able. [employer] Phone: EXAMINATION: ONE XRA Y VIEW OF [...] cardiomegaly. Bony thorax is without acute abnormality. [employer] Phone: Roger, Mhpn Incoming R adiant Results From [employer] - 12/18/2020 1:31 PM EDT EXAMINATION: ONE [...] Consider advancement by 5-7 cm, if able. [employer] Phone: [employer] Phone: XR CHEST PORTABLEOrdered By: Manuel Conner on 12-18-2020 Mild prominence of interstitial markings suggests mild vascular congestion with mild streaky bibasilar atelectasis [employer] Phone: EXAMINATION: ONE XRA Y VIEW OF THE CHEST 12/18/2020 11:18 am COMPARISON: December 17, 2020, chest examination HISTORY: ORDERING SYSTEM PROVIDED HISTORY: Congestion TECHNOLOGIST PROVIDED HISTORY: Congestion FINDINGS: Median sternotomy. Stable cardiomegaly/mild tortuosity of the thoracic aorta Mild streaky bibasilar density. Mild prominence of interstitial markings Possible small right pleural effusion Degenerative changes of the thoracic spine/shoulders [employer] Phone: Roger, Mhpn Incoming R adiant Results From [employer] - 12/18/2020 11:26 AM EDT EXAMINATION: ONE [...] vascular congestion with mild streaky bibasilar atelectasis [employer] Phone: [employer] Phone: APTTOrdered By: Manuel lew on 12-17-2020 aPTT Coag (Bld) [Time] 22.8 s Low [employer] Phone: Comment on above: IV Heparin Therapy Range: 62.0-94.0 Interpretation and review of laboratory results Abnormal [employer] Phone: [employer] Phone: Blood Gas, VenousOrdered By: Manuel Conner on 12-17-2020 Shilo Test NOT REPORTED [employer] Phone: Carboxyhemoglobin NOT REPORTED 0.0 - 5.0 % [employer] Phone: Comment on above: FIO2 NOT REPORTED [employer] Phone: HCO3 (Bld) [Moles/Vol] 21.9 mmol/L Low 24.0 - 30.0 mmol/L [employer] Phone: Interpretation and review of laboratory results Abnormal [employer] Phone: Methemoglobin NOT REPORTED 0.0 - 1.9 % [employer] Phone: Mode NOT REPORTED [employer] Phone: Negative Base Excess, Angelo 5.7 mmol/L High 0.0 - 2.0 mmol/L [employer] Phone: NOTIFICATION NOT REPORTED [employer] Phone: NOTIFICATION TIME NOT REPORTED [employer] Phone: O2 Device/Flow/% NOT REPORTED [employer] Phone: Oxygen saturation in Blood 31.2 % Low 60.0 - 85.0 % [employer] Phone: Oxyhemoglobin NOT REPORTED 95.0 - 98.0 [...] Work Phone: Text for Respiratory NOT REPORTED [facility] Work Phone: Total Hb NOT REPORTED 12.0 - 16.0 g/dl [facility] Work Phone: Total Rate NOT REPORTED [facility] Work Phone: VT NOT REPORTED [facility] Work Phone: [facility] Work Phone: Brain Natriuretic PeptideOrd ered By: Manuel Conner on 12-17-2020 BNP Interpretation Pro-BNP Reference Range: [facility] Work Phone: Comment on above: Rule Out: <300 Pagan Zone: Age <50 300-450 Age 50-75 300-900 Age >75 300-1800 Usually represents mild to moderate HF but other cardiopulmonary causes cannot be ruled out. Rule In: Age <50 >450 Age 50-75 >900 Age >75 >1800 Natriuretic peptide B (Bld) [Mass/Vol] 1428 pg/mL High <300 [employer] Phone: Comment on above: Pro-BNP results halie ot be compared to BNP results. CBC Auto DifferentialOrdered By: Manuel Conner on 12-17-2020 Absolute Eos # 0.03 [employer] Phone: Absolute Immature Granulocyte 0.03 [employer] Phone: Absolute Lymph # 0.96 Low [employer] Phone: Absolute Moca # 0.52 [employer] Phone: Basophils (Bld) [#/Vol] 10*3/uL [facility] [employer] Phone: Basophils/100 WBC (Bld) 0 % 0 - 2 % [employer] Phone: Differential Type NOT REPORTED [employer] Phone: Eosinophils/100 WBC (Bld) 0 % Low 1 - 4 % [employer] Phone: Hematocrit (Bld) [Volume fraction] 37.2 % Low 40.7 - 50.3 % [employer] Phone: Hemoglobin.gastrointest inal spec 1 Ql (Stl) 11.5 g/dL Low 13.0 - 17.0 g/dL [employer] Phone: Immature granulocytes/100 WBC (Bld) 0 % 0 [employer] Phone: Interpretation and review of laboratory results Abnormal [employer] Phone: Lymphocytes/100 WBC (Bld) 11 % Low 24 - 43 % [employer] Phone: MCH (RBC) [Entitic mass] 28.5 pg 25.2 - 33.5 pg [employer] Phone: MCHC (RBC) [Mass/Vol] 30.9 g/dL 28.4 - 34.8 g/dL [employer] Phone: MCV (RBC) [Entitic vol] 92.3 fL 82.6 - 102.9 fL [employer] Phone: Monocytes/100 WBC (Bld) 6 % 3 - 12 % [employer] Phone: NRBC Automated 0.0 0.0 per 100 WBC [employer] Phone: Platelet distribution width (Bld) [Ratio] 13.0 % 11.8 - 14.4 % [employer] Phone: Platelet Estimate NOT REPORTED [employer] Phone: Platelet mean volume (Bld) [Entitic vol] NOT REPORTED 8.1 - 13.5 fL [employer] Phone: Platelets (Bld) [#/Vol] See Reflexed IPF Result [employer] Phone: RBC (Bld) [#/Vol] 4.03 10*6/uL Low 4.21 - 5.77 m/uL [employer] Phone: RBC (Bld) [#/Vol] NOT REPORTED [employer] Phone: Segmented neutrophils/100 WBC (Bld) 82 % High 36 - 65 % [employer] Phone: Segs Absolute 6.94 [employer] Phone: [phone] WBC (Bld) [#/Vol] 8.5 10*3/uL [employer] Phone: WBC (Bld) [#/Vol] NOT REPORTED [employer] Phone: [employer] Phone: COVID-19, RapidOrdered By: Agnieszka munozsloan Finneyjodie on 12-17-2020 SARS-CoV-2 (COVID-19) RNA JOYCE+probe Ql (Unsp spec) Not detected Not Detected [employer] Phone: Comment on above: Rapid NAAT: The [...] management decisions. Fact sheet for Healthcare Providers: https://www.fda.gov/media/825010/download Fact sheet for Patients: https://www.fda.gov/media/119271/download Methodology: Isothermal Nucleic Acid Amplification Specimen Description .NASOPHARYNGEAL SWAB [employer] Phone: [employer] Phone: CT HEAD WO CONTRASTOrdered B y: Manuel Conner on 12-17-2020 No acute intracrania l abnormality. 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 Minimal parenchymal volume loss. Minimal chronic microvascular disease. [employer] Phone: EXAMINATION: CT OF T HE HEAD [...] of the visualized skull or soft tissues. [employer] Work Phone: Roger, Mhpn Incoming R adiant Results From [employer] - 12/17/2020 9:36 AM EDT EXAMINATION: CT [...] PROVIDED HISTORY: ams TECHNOLOGIST PROVIDED HISTORY: [facility] Decision Support Exception - unselect if not [...] parenchymal volume loss. Minimal chronic microvascular disease. [employer] Phone: [employer] Phone: Comprehensive Metabolic Pane l w/ Reflex to MGOrdered By: Manuel Conner on 12-17-2020 Albumin [Mass/Vol] 4 g/dL 3.5 - 5.2 g/dL [employer] Phone: Albumin/Globulin [Mass ratio] 1.3 {ratio} [employer] Phone: ALP (Bld) [Catalytic activity/Vol] 66 U/L 40 - 129 U/L [employer] Phone: ALT [Catalytic activity/Vol] 12 U/L 5 - 41 U/L [employer] Phone: Anion gap [Moles/Vol] 19 mmol/L High 9 - 17 mmol/L [employer] Phone: AST [Catalytic activity/Vol] 18 U/L <40 [employer] Phone: Bilirubin [Mass/Vol] 0.16 mg/dL Low 0.3 - 1 .2 mg/dL [employer] Phone: Calcium [Mass/Vol] 8.8 mg/dL 8.6 - 10. 4 mg/dL [employer] Phone: Chloride [Moles/Vol] 102 mmol/L 98 - 10 7 mmol/L [employer] Phone: CO2 [Moles/Vol] 19 mmol/L Low 20 - 31 mmol/L [employer] Phone: Creatinine [Mass/Vol] 6.59 mg/dL Critically high 0.7 0 - 1.20 mg/dL [employer] Phone: Free PSA/Total PSA [Mass fraction] 7.0 g/dL 6.4 - 8.3 g/dL [employer] Phone: GFR 10 mL/min Low >60 [employer] Work Phone: GFR Non- 8 mL/min Low >60 [employer] Work Phone: Glucose [Mass/Vol] 197 mg/dL High 70 - 99 mg/dL [employer] Phone: Potassium [Moles/Vol] 4.6 mmol/L 3.7 - 5.3 mmol/L [employer] Phone: Sodium [Moles/Vol] 140 mmol/L 135 - 144 mmol/L [employer] Phone: Urea nitrogen (BldV) [Mass/Vol] 96 mg/dL Critically high 8 - 23 mg/dL [employer] Phone: Urea nitrogen/Creatinine (Bld) [Mass ratio] 15 [employer] Work Phone: EKG 12 LeadOrdered By: Kathy Conner on 12-17-2020 Atrial Rate 85 BPM [employer] Phone: P [place] -15 degrees [employer] Phone: P-R Interval 224 ms [employer] Phone: Q-T Interval 414 ms [employer] Phone: QRS Duration 120 ms [employer] Phone: QTc Calculation (Bazett) 492 ms [employer] Phone: R [place] 99 degrees [employer] Phone: T [place] 44 degrees [employer] Phone: Ventricular Rate 85 BPM [employer] Phone: Sinus rhythm with 1s t degree A-V block Rightward axis Septal infarct , age undetermined Abnormal ECG No previous ECGs available Confirmed by JARON BERNARD ([id number]) on 12/17/2020 11:51:30 PM [employer] Phone: Roger, Mhpn Incoming E kg Results From [employer] - 12/17/2020 11:51 PM EDT Sinus rhythm with 1st degree A-V block Rightward axis Septal infarct , age undetermined Abnormal ECG No previous ECGs available Confirmed by JARON BERNARD ([id number]) on 12/17/2020 11:51:30 PM [employer] Phone: [employer] Phone: Immature Platelet FractionOr dered By: Manuel Conner on 12-17-2020 Interpretation and review of laboratory results Abnormal [employer] Phone: Platelet, Fluorescence 110 Low [employer] Phone: Platelet, Immature Fraction 4.6 % 1.1 - 10.3 % [employer] Phone: [employer] Phone: Laboratory - Chemistry and C hemistry - challengeOrdered By: Manuel Conner on 12-17-2020 GFR/1.73 sq M.predicted MDRD (S/P/Bld) [Vol rate/Area] [employer] Phone: Comment on above: Average GFR for 70 o r more years old: 75 mL/min/1.73sq m Chronic Kidney Disease: <60 mL/min/1.73sq m Kidney failure: <15 mL/min/1.73sq m eGFR calculated using average adult body mass. Additional eGFR calculator available at: http://www.STEERads[employer]/multiple_crcl_2012.htm Stage 1: Some kidney damage normal GFR Stage 2: Mild kidney damage GFR 60-89 Stage 3: Moderate kidney damage GFR 30-59 Stage 4: Severe kidney damage GFR 15-29 Stage 5: Severe kidney damage GFR <15 ESRD - chronic treatment by dialysis or transplant Lactic AcidOrdered By: Kathy Conner on 12-17-2020 Lactate [Moles/Vol] 1.3 mmol/L 0.5 - 2. 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 Flow artifact in the proximal M1 segments of the bilateral MCAs and intracranial right ICA. The bilateral intracranial vertebral arteries are not imaged. [employer] Phone: EXAMINATION: MRA OF THE HEAD WITHOUT CONTRAST 12/17/2020 1:32 pm TECHNIQUE: MRA of the head was performed utilizing [id number] imaging with MIP images. No intravenous contrast [...] cerebral arteries. No evidence of intracranial aneurysm. [employer] Phone: Roger, Mhpn Incoming R adiant Results From [employer] - 12/17/2020 2:02 PM EDT EXAMINATION: MRA OF THE HEAD WITHOUT CONTRAST 12/17/2020 1:32 pm TECHNIQUE: MRA of the head was performed utilizing [id number] imaging with MIP images. No intravenous contrast [...] bilateral intracranial vertebral arteries are not imaged. 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 [employer] Phone: No acute intracrania l abnormality. 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 Mild parenchymal volume loss. Mild chronic microvascular disease. 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 [employer] Phone: EXAMINATION: MRI OF THE BRAIN WITHOUT [...] The soft tissues demonstrate no acute abnormality. [employer] Phone: Roger, pn Incoming R adiant Results From [employer] - 12/17/2020 1:55 PM EDT EXAMINATION: MRI [...] internal carotid artery, likely related to occlusion. [employer] Work Phone: [employer] Work Phone: Microscopic UrinalysisOrdere d By: Manuel Conner on 12-17-2020 - [employer] Work Phone: Amorphous, UA NOT REPORTED None [employer] Work Phone: [phone] Bacteria, UA NOT REPORTED None [employer] Work Phone: Casts UA NOT REPORTED /LPF [employer] Work Phone: Crystals, UA NOT REPORTED None /HPF [employer] Work Phone: Epithelial Cells UA 0 TO 2 [employer] Phone: Mucus, UA NOT REPORTED None [employer] Phone: Other Observations UA NOT REPORTED NOT REQ. [facility] Phone: RBC, UA 2 TO 5 [employer] Work Phone: Renal Epithelial, UA NOT REPORTED 0 /HPF Me [employer] Work Phone: Trichomonas, UA NOT REPORTED None [employer] Phone: WBC, UA 0 TO 2 [employer] Phone: Yeast, UA NOT REPORTED None [employer] Phone: [employer] Work Phone: No Panel InformationOrdered By: Manuel Conner on 12-17-2020 Interpretation and review of laboratory results Abnormal [employer] Phone: [employer] Phone: Interpretation and review of laboratory results Abnormal [employer] Phone: [employer] Phone: Protime-INROrdered By: Kathy Conner on 12-17-2020 INR Coag (Bld) [Relative time] 1.1 {INR} [employer] Phone: Comment on above: Non-therapeutic Range: INR = 0.9-1.2 Therapeutic Range: Moderate Anticoagulant Intensity: INR = 2.0-3.0 High Anticoagulant Intensity: INR = 2.5-3.5 PT Coag (PPP) [Time] 13.7 s [employer] Phone: [employer] Phone: TroponinOrdered By: Manuel Conner on 12-17-2020 Interpretation and review of laboratory results Abnormal [employer] Phone: Troponin Interp NOT REPORTED [employer] Phone: Troponin T NOT REPORTED <0.03 ng/mL [employer] Phone: Troponin, High Sensitivity 79 ng/L Critically high 0 - 22 ng/L [employer] Phone: Comment on above: High Sensitivity Troponin values cannot be compared with other Troponin methodologies. Patients with high levels of Biotin oral intake (i.e >5mg/day) may have falsely decreased Troponin levels. Samples collected within 8 hours of biotin intake may require additional information for diagnosis. [employer] Phone: Troponin Interp NOT REPORTED [employer] Phone: Troponin T NOT REPORTED <0.03 ng/mL [employer] Phone: Troponin, High Sensitivity 85 ng/L Critically high 0 - 22 ng/L [employer] Phone: Comment on above: High Sensitivity Troponin values cannot be compared with other Troponin methodologies. Patients with high levels of Biotin oral intake (i.e >5mg/day) may have falsely decreased Troponin levels. Samples collected within 8 hours of biotin intake may require additional information for diagnosis. Urinalysis, reflex to micros copicOrdered By: Manuel Conner on 12-17-2020 Bilirubin Urine Negative NEGATIVE [employer] Phone: Color, UA Yellow Yellow [employer] Work Phone: Glucose, Ur Negative NEGATIVE [employer] Work Phone: Interpretation and review of laboratory results Abnormal [employer] Phone: Ketones Ql (U) Negative NEGATIVE [employer] Work Phone: Leukocyte esterase Test strip Ql (U) Negative NEGATIVE [employer] Work Phone: Nitrite, Urine Negative NEGATIVE [employer] Work Phone: pH, UA 5.5 [employer] Work Phone: Protein, UA TRACE Abnormal NEGATIVE [employer] Phone: Specific [place], UA 1.025 High [employer] Work Phone: Turbidity UA Clear Clear [employer] Work Phone: Urinalysis Comments NOT REPORTED [facility] [employer] Work Phone: Urine Hgb TRACE Abnormal NEGATIVE [employer] Phone: Urobilinogen, Urine Normal Normal [employer] Phone: [employer] Phone: XR CHEST PORTABLEOrdered By: Manuel Conner on 12-17-2020 Mild streaky bibasil ar atelectasis with possible small bilateral pleural effusions [employer] Phone: EXAMINATION: ONE XRA Y VIEW OF THE CHEST 12/17/2020 9:30 am COMPARISON: None. HISTORY: ORDERING SYSTEM PROVIDED HISTORY: Congestion TECHNOLOGIST PROVIDED HISTORY: Congestion FINDINGS: Median sternotomy. Normal cardiopericardial silhouette Low volume lungs. Mild streaky bibasilar densities, possible possible small bilateral pleural effusions. Clear upper lungs Degenerative changes of the thoracic spine/shoulders [employer] Work Phone: Roger, Mhpn Incoming R adiant Results From [employer] - 12/17/2020 9:46 AM EDT EXAMINATION: ONE [...] atelectasis with possible small bilateral pleural effusions [employer] Work Phone: [employer] Phone: Vital Signs Date Time Vital Sign Value Performing Clinician Facility 07-03-2021 15:01-0400 Body temperature 99.32 [degF] Michael Carballo Other Phone: [facility] 07-03-2021 15:01-0400 Diastolic blood pressure 66 mm[Hg] Michael Carballo Other Phone: [facility] 07-03-2021 15:01-0400 Heart rate 80 /min Michael Carballo Other Phone: [facility] 07-03-2021 15:01-0400 Respiratory rate 22 /min Michael Carballo Other Phone: [facility] 07-03-2021 15:01-0400 SaO2% (BldA) [Mass fraction] 97 % Michael Carballo Other Phone: [facility] 07-03-2021 15:01-0400 Systolic blood pressure 127 mm[Hg] Michael Carballo Other Phone: [facility] 07-03-2021 06:30-0400 Body weight 100.5 kg Michael Carballo Other Phone: [facility] 06-27-2021 13:00-0400 Diastolic blood pressure 69 mm[Hg] MD Michael Carballo Work Phone: [facility] 06-27-2021 13:00-0400 Heart rate 87 /min MD Michael Carballo Work Phone: [facility] 06-27-2021 13:00-0400 Respiratory rate 17 /min MD Michael Carballo Work Phone: [facility] 06-27-2021 13:00-0400 SaO2% (BldA) [Mass fraction] 94 % MD Michael Carballo Work Phone: [facility] 06-27-2021 13:00-0400 Systolic blood pressure 153 mm[Hg] MD Michael Carballo Work Phone: [facility] 06-27-2021 08:00-0400 Body temperature 97.9 [degF] MD Michael Carballo Work Phone: [facility] 06-27-2021 05:44-0400 Body weight 106.5 kg MD Michael Carballo Work Phone: [facility] 06-26-2021 14:12-0400 Body height 182.88 cm MD Michael Carballo Work Phone: [facility] 06-26-2021 00:24-0400 Body height 182.88 cm MD Michael Carballo Work Phone: [facility] 06-26-2021 00:24-0400 Body mass index (BMI) [Ratio] 32.8 kg/m2 MD Michael Carballo Work Phone: [facility] 06-26-2021 00:24-0400 Body temperature 97.7 [degF] MD Michael Carballo Work Phone: [facility] 06-26-2021 00:24-0400 Body weight 109.9 kg MD Michael Carballo Work Phone: [facility] 06-26-2021 00:24-0400 Diastolic blood pressure 100 mm[Hg] MD Michael Carballo Work Phone: [facility] 06-26-2021 00:24-0400 Heart rate 88 /min MD Michael Carballo Work Phone: [facility] 06-26-2021 00:24-0400 Respiratory rate 18 /min MD Michael Carballo Work Phone: [facility] 06-26-2021 00:24-0400 SaO2% (BldA) [Mass fraction] 96 % MD Michael Carballo Work Phone: [facility] 06-26-2021 00:24-0400 Systolic blood pressure 221 mm[Hg] MD Michael Carballo Work Phone: [facility] 12-19-2020 20:01-0400 Diastolic blood pressure 64 mm[Hg] Manuel Conner MD Work Phone: [employer] Work Phone: 12-19-2020 20:01-0400 Systolic blood pressure 182 mm[Hg] Manuel Conner MD Work Phone: [employer] Work Phone: 12-19-2020 19:00-0400 Heart rate 75 /min Manuel Conner MD Work Phone: [employer] Work Phone: 12-19-2020 19:00-0400 Respiratory rate 23 /min Manuel Conner MD Work Phone: [employer] Work Phone: 12-19-2020 19:00-0400 SaO2% (BldA) [Mass fraction] 94 % Manuel Conner MD Work Phone: [employer] Work Phone: 12-18-2020 06:30-0400 Body temperature 98.29 [degF] Manuel Conner MD Work Phone: [employer] Work Phone: Encounters Encounter Date Encounter Type Care Provider Facility Start: 09-28-2022 AUDIT Michael Carballo Work Phone: MB-Sarnmainrv-Zhlmblia [facility] 260 DO Work Phone: Start: 07-24-2022 End: 07-24-[address] MICHAEL CARBALLO . Facility:[facility] Start: 07-15-2022 End: 07-15-[address] MICHAEL CARBALLO . Facility: Start: 07-13-2022 Patient encounter procedure Michael Carballo Work Phone: XP-Dhlbwegjba-DQL [facility] [address] Work Phone: Start: 07-13-2022 Phys/qhp telephone evaluation 11-20 min Michael Carballo Work Phone: MV-Fvmzvtspew-ZRU [facility] [address] Work Phone: Start: 07-13-2022 ambulatory MD SCOUT ROMO Facility:[facility] Start: 07-13-2022 End: 07-13-[address] MICHAEL CARBALLO . Facility: Start: 07-09-2022 AUDIT Michael Carballo Work Phone: RI-Cnlxmwlnfq-AUB [facility] [address] Work Phone: Start: 06-08-2022 ambulatory Facility:[facility] Start: 06-05-2022 End: 06-05-[address] MICHAEL CARBALLO . Facility: Start: 06-04-2022 End: 06-04-[address] MICHAEL CARBALLO . Facility: Start: 04-14-2022 End: 04-15-2022 ambulatory DONNA ARELLANO [facility] Start: 04-14-2022 End: 04-14-2022 Subsequent hospital visit by physician Michael Carballo Work Phone: [facility] Start: 10-30-2021 End: 10-31-2021 ambulatory Manfred Wilson Facility:[facility] Start: 10-28-2021 End: 10-28-[address] MICHAEL CARBALLO . Facility: Start: 10-15-2021 Patient encounter procedure Michael Carballo Work Phone: XG-Jghgnolhkp-YPV [facility] [address] [place] Work Phone: Start: 10-15-2021 ambulatory DO FELICIA ASTORGA Facility:[facility] Start: 08-05-2021 End: 08-06-[address] MICHAEL CARBALLO . Facility: Start: 07-16-2021 Office outpatient vi sit 25 minutes Michael Carballo Work Phone: IJ-Ydduvrntcw-PQF [facility] [address] [place] Work Phone: Start: 07-16-2021 Patient encounter procedure Michael Carballo Work Phone: LS-Posmzbpsnk-WEZ [facility] [address] [place] Work Phone: Start: 06-27-2021 End: 07-03-2021 [id number] Start: 06-25-2021 End: 06-27-2021 Evaluation and management of inpatient MD Michael Carballo Work Phone: [facility] [place] [facility] Start: 06-25-2021 Patient encounter procedure Michael Carballo Work Phone: LE-Wbqhkfcgrt-MQT [facility] [place] Work Phone: Start: 06-24-2021 End: 06-24-2021 Patient encounter procedure MD Michael Carballo Work Phone: [facility] Ctr-Lab [facility] Start: 05-28-2021 AUDIT Michael Carballo Work Phone: LS-Ngjuqvimtm-ISI [facility] [address] [place] Work Phone: Start: 05-27-2021 End: 05-27-2021 Patient encounter procedure MD Michael Carballo Work Phone: [facility] Ctr-Lab [facility] Start: 01-01-2021 Patient encounter procedure Michael Carballo Work Phone: KL-Nnberkabls-WNR [facility] [address] [place] Work Phone: Start: 01-01-2021 WANG, Provider : Felicia Astorga, Status: Pen, Time: 2:20 PM Michael Carballo Work Phone: GY-Vsxpjvjpzi-Ukwrzjdo SJW 260 DO Work Phone: Start: 12-31-2020 AUDIT Michael Carballo Work Phone: PX-Lqyugaoikd-Bkkfzkel SJW 260 DO Work Phone: Start: 12-17-2020 End: 12-19-2020 Emergency department patient visit Manuel Conner MD Work Phone: [place] Comment on above: Namrata coma scale t otal score 13-15, at hospital admission (Primary Dx); Acute kidney injury (HCC); Heart replaced by transplant (HCC); Confusion Start: 11-21-2020 AUDIT Michael Carballo Work Phone: WP-Pipeepyjny-MDB [facility] [address] [place] Work Phone: Start: 10-31-2020 AUDIT Michael Carballo Work Phone: [facility] Work Phone: Procedures Date Procedure Procedure [...] Montse Villanueva, Status: Pen, Time: 2:00 PM UV-Uxatzngxlg-VAK [facility] [address] Work Phone: Start: 07-13-2022 VIRFUCORI, Provider : Scout Romo, Status: Pen, Time: 1:40 PM VIRFUVHOME, Provider: Scout Romo, Status: Pen, Time: 1:40 PM VF-Bsviyxjzxn-LCF [facility] [address] Work Phone: Start: 04-01-2022 VIRFUCORI, Provider : Felicia Astorga, Status: Pen, Time: 1:00 PM VIRFUCORI, Provider: Felicia Astorga, Status: Pen, Time: 1:00 PM XN-Ngqrawkude-DAD [facility] [address] [place] Work Phone: Start: 12-19-2021 Creatinine measurement Creatinine [facility] Work Phone: Start: 12-19-2021 Potassium monitoring Potassium monit [facility] Work Phone: Start: 10-20-2021 Influenza vaccination Flu vaccine (# 1) [facility] Start: 07-16-2021 Patient encounter procedure [facility] Start: 07-03-2021 End: 07-04-2022 Insulin Glargine (Lantus) Injectable Subcutaneous Once ; DOSE = 12 unit(s) SubCutaneous At BedtimeNotes from Pharmacy: [facility] Start: 03-Jul-2021 End: 03-Jul-2022 Ordered: 03-Jul-2021 Magy Galeas Intent [facility] Start: 07-01-2021 End: 07-02-2022 [facility] Comment on above: IF patient [...] End: 30-Jun-2022 Ordered: 30-Jun-2021 Jihan Storm Intent [facility] Start: 06-27-2021 End: 06-28-2022 Sodium Chloride 0.9% Injectable Flush Peripheral Line ; via Peripheral LineVolume = 10 mL IntraVenous Flush Every 8 Hours and as Needed Start: 27-Jun-2021 End: 27-Jun-2022 Ordered: 26-Jun-2021 Magy Galeas Intent [facility] Start: 06-26-2021 Duplex scan of upper limb arteries US arterial duplex UE [facility] Start: 12-17-2020 Annual Wellness Visi t (AWV) Annual Wellness Visit (AWV) [facility] Start: 11-20-2020 Influenza vaccination Flu vaccine (# 1) [employer] Phone: Start: 07-16-2020 COVID-19 Vaccine (3 - Pfizer risk 3-dose series) COVID-19 Vaccine (3 - Pfizer risk 3-dose series) [employer] Phone: Start: 07-16-2020 COVID-19 Vaccine (3 - Pfizer risk series) COVID-19 Vaccine (3 - Pfizer risk series) [facility] Start: 10-01-2016 Pneumococcal 65+ yrs at Risk Vaccine (2 of 2 - PCV13) Pneumococcal 65+ yrs at Risk Vaccine (2 of 2 - PCV13) [employer] Phone: Start: 10-10-1993 Shingles Vaccine (1 of 2) Shingles Vaccine (1 of 2) [employer] Phone: Start: 10-10-1962 DTaP/Tdap/Td vaccine (1 - Tdap) DTaP/Tdap/Td vaccine (1 - Tdap) [facility] Start: 10-10-1962 Shingles vaccine (1 of 2) Shingles vaccine (1 of 2) [facility] [email or web address] Start: 10-10-1961 Hepatitis C screening Hepatitis C [facility] [email or web address] Start: 1955 Depression Screen Depression Screen [facility] Start: 10-10-1953 [facility] Start: 1943 [facility] Phone: Calcium [Mass/volume ] in Serum or Plasma [facility] Work Phone: Carbon dioxide, tota l [Moles/volume] in Serum or Plasma [facility] Work Phone: Chloride [Moles/volu me] in Serum or Plasma [facility] Work Phone: Creatinine and Glomerular filtration rate.predicted panel - Serum, Plasma or Blood [facility] Work Phone: Culture, Blood [facility] Work Phone: Culture, Wound Culture, Wound Microbiology Routine 04/14/2022 3:25 PM EST [facility] Work Phone: Glucose [Mass/volume ] in Serum or Plasma [facility] Work Phone: Goals of care, counseling/discussion [facility] Measurement of renal function [facility] Work Phone: Potassium [Moles/volume] in Serum or Plasma [facility] Work Phone: Sodium [Moles/volume ] in Serum or Plasma [facility] Work Phone: Tacrolimus [Mass/volume] in Blood [facility] Work Phone: End: 12-18-2020 Tacrolimus Level [facility] Work Phone: Comment on above: One Time for 1 Occur rences starting 12/18/2020 until 12/18/2020 End: 12-19-2020 Tacrolimus Level Tacrolimus Level Lab Routine One Time for 1 Occurrences starting 12/19/2020 until 12/19/2020 [facility]: Comment on above: One Time for 1 Occur rences starting 12/19/2020 until 12/19/2020 Tacrolimus Level [facility] Work Phone: Urea nitrogen [Mass/volume] in Serum or Plasma [facility] Work Phone: Immunizations Immunization Date Immunization Notes Care Provider Fa cility 03-21-2021 Pfizer-BioNTech COVI D-19 Vacc 30 MCG/0.3ML Intramuscular Suspension Michael Carballo Work Phone: KI-Dnkvooiuns-RID [facility] [address] [place] Work Phone: 06-18-2020 Pfizer-BioNTech COVI D-19 Vacc 30 MCG/0.3ML Intramuscular Suspension Michael Carballo Work Phone: [facility] Work Phone: 05-27-2020 Pfizer-[employer] COVI D-19 Vacc 30 MCG/0.3ML Intramuscular Suspension Michael Candelario Haris Work Phone: [facility] Work Phone: 12-29-2019 Seasonal trivalent influenza vaccine, adjuvanted, preservative free Michael Palomino Haris Work Phone: [facility] Work Phone: 12-22-2017 Seasonal trivalent influenza vaccine, adjuvanted, preservative free Michael Palomino Haris Work Phone: [facility] Work Phone: 12-28-2016 Seasonal trivalent influenza vaccine, adjuvanted, preservative free Michael Palomino Haris Work Phone: [facility] Work Phone: 12-24-2015 influenza, high dose seasonal, preservative-free Michael Palomino Haris Work Phone: [facility] Work Phone: 10-02-2015 influenza, seasonal, injectable Michael Palomino Haris Work Phone: [facility] Work Phone: 10-02-2015 pneumococcal polysaccharide vaccine, 23 valent Michael Palomino Haris Work Phone: [facility] Work Phone: 01-09-2015 influenza, injectabl e, quadrivalent, contains preservative Michael Palomino Haris Work Phone: [facility] Work Phone: 01-03-2013 influenza, seasonal, injectable Michael Palomino Haris Work Phone: [facility] Work Phone: 01-07-2009 influenza virus vacc ine, whole virus Michael Palomino Haris Work Phone: [facility] Work Phone: 01-20-2005 influenza virus vacc ine, whole virus Michael Palomino Carballo Work Phone: [facility] Work Phone: Payers Date Payer Category Payer Self-pay [id number] 1961 Medicaid [id number] 1961 Medicare [id number] 1961 Medicare [id number] 1959 Private Health Insurance [id number] 1943 Unknown [id number] 2.16.8 [id number] 1943 Unknown [id number] 2.16.84 [id number] 1943 Unknown [id number] 2.16.84 [id number] 1943 Unknown [id number] 2.16.84 [id number] 1943 Unknown [id number] 2.16.84 [id number] 1943 Unknown [id number] 2.16.84 [id number] 1943 Unknown [id number] 2.16.84 [id number] 1943 Unknown [id number] 2.16.84 [id number] 1943 Unknown [id number] 2.16. [id number] 1943 Unknown [id number] 2.16. [id number] Unknown Unknown [id number] 2.16.8 [id number] Social History Date Type Detail Facility Former smoker Former smoker [facility] Work Phone: Start: 12-17-2020 Tobacco smoking stat us TXIS Unknown if ever smoked [employer] Work Phone: Start: 1945 Sex Assigned At Not on file [facility] Work Phone: Exposure to SARS-CoV -2 (event) Unable to assess [employer] Start: 12-13-2020 [facility] Start: 1945 Sex Assigned At Male F [facility] Start: 06-26-2021 End: 06-26-2021 Tobacco smoking status NHIS Ex-smoker (finding) [facility] End: 03-22-1996 History of tobacco use [facility] Work Phone: Goals Date Patient Goal Desired Activity /State Functional Status Date Assessment Result Facility 06-27-2021 Functional status Patient at Baseline [facility] Work Phone: Functional observable [facility] Mental Status Date Assessment Result Facility 06-30-2021 Cognitive functi ons [id number] [facility] 06-27-2021 Cognitive function Cognitive Sta tus Patient at Baseline [facility] Work Phone: Clinical Notes 07-05-2000 to 07-03-2021 <item><item><item><item><item><item><item><item><item> Note Date & Type Note Facility 07-03-2021 Hospital Discharge instructions Activity:activity with assistance. May shower.Labs 1 (Modify Template):Lab Test(s): Basic Metabolic Panel, CBC, Tacrolimus levelDate To Be Drawn: 07/07/2021all Results To: Dr. Felicia Moore Results To: [phone] Orders:Blood Glucose Monitoring: ACHSAdditional Instructions: Use of [...] Uncontrolled diabetesCall to Schedule in: 2 weeksLocation: [facility]: [facility] App[facility]ment 2:Physician/Dept/Service: Dr. Felicia Astorga / Heart failure and transplantReason for Referral: hospital follow-upLocation: [place] [address]Comments: Our office will call you to set up an appointment either in person or virtually. [facility] 06-27-2021 Discharge summary Note Date/Time June 27, 2021 10:32am [facility] [address] [place] [address] Discharge Summary Signed Patient: Oliverio Escobedo MR#: [id number] : 1945 Acct:[id number] Age/Sex: 75 / M Adm Date: 2 Loc: 3T Room: [address] [place] [address]: Yoshi Hernandez MD Copies to: MD Manfred Olvera([facility] Providers Date of Discharge: 06/27/21 Discharging [...] 1 tab PO BID RF: 0 omega 8-sgb-xpp-fish oil [Fish Oil] 1,000 mg (120 mg-180 [...] signed by Yoshi Hernandez MD> 06/27/21 1032 [facility] Work Phone: 1(175) 962-795704-08-2022 Progress note Author Bonilla Ortiz [facility] June 27, 2021 10:27am Note Date/Time June 27, 2021 10:2 7am [facility] [address] [place] [address] Cardiology Progress Note Signed Patient: Olivreio Escobedo MR#: [id number] : 1945 Acct:[id number] Age/Sex: 75 / M Adm Date: 2 Loc: 3T Room: [address] [place] [address] Type : ADM INOo Attending Dr: Yoshi Hernandez MD Copies to: ~ Date of Service: 06/27/2021 Subjective Principal diagnosis: Edema w history of orthotopic heart transplant Interval history: Mr. Escobedo is a 75 year old male with known history of orthotopic heart transplantation in 2000 done at [facility] who was admitted to the inpatient hospitalist service last night after presenting from the [facility] with complaints of increasing swelling in both legs and the right arm for several days. The patient is resting comfortably this morning. He did diurese gently yesterday. He currently has no cardiac complaints. His breathing feels comfortable lying flat at rest. Swelling in both feet and calves is still present. NB: The patient has been accepted by the transplant service at [facility]. At this point we are awaiting bed [...] Agree with transfer to transplant service at [facility] for further management. Plan Thank you very much for this kind consultation and for allowing me to participate in the care of this very pleasant patient. Time spent with patient Time Spent With Patient (min): 20 Documented By: Bonilla Ortiz MD 06/27/21 1024 Signed By: <Electronically signed by Bonilla Ortiz MD> 06/27/21 1027 [facility] Work Phone: 1(637) 611-744104-07-2022 Progress note Author Yoshi Wu [facility] June 26, 2021 6:27pm Note Date/Time June 26, 2021 6:27 pm [facility] [address] [place], [place] [id number] Hospitalist Progress Note Signed Patient: Oliverio Escobedo MR#: [id number] : 1945 Acct:[id number] Age/Sex: 75 / M Adm Date: 2 Loc: Room: [address] [place] [address] Type : ADM INOo Attending Dr: Yoshi [...] Oil 1,000 mg 06/26/21 09:00 06/26/21 09:01 Dozier-3/Fish Oil 1,000 Mg Capsule PO 06/26/22 08:59 [...] signed by Yoshi Hernandez MD> 06/26/21 182 [facility] Work Phone: 1(274) 883-771104-07-2022 Consult note Author Bonilla Ortiz [facility] June 26, 2021 2:26pm Note Date/Time June 26, 2021 2:23 pm [facility] [address] [place] [address] Cardiology Consult Note Signed Patient: Oliverio Escobedo MR#: [id number] : 1945 Acct:[id number] Age/Sex: 75 / M Adm Date: 2 Loc: 3T Room: [address] [place] [address] Type : ADM INOo Attending Dr: Yoshi Hernandez MD Copies to: MD Manfred Olvera([facility]) DO Bonilla Wilson MD~ Cardiology HPI History of Present Illness Consult Date: 06/26/21 Reason for Consult: Bilateral lower extremity swelling Remote history of orthotopic heart transplantation HPI: Mr. 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 She doesnot know the results. On my evaluation the patient was undergoing bedside transthoracic echocardiography. Preliminary interpretation of the study shows normal resting left ventricular regional wall motion and systolic function. Ejection fraction appears greater than 55%. There is no notable pericardial or pleural effusion. There is no notable/significant valvular heart disease noted. By report the patient's transplant service at [facility] has been contacted and is [...] PO BID 02/02/17 [History Confirmed 06/25/21] omega 1-gbc-eam-fish oil 1,000 mg (120 mg-180 mg) capsule [...] x10E3/uL Lymph # (Auto) 1.0 (1.00-4.8) x10E3/uL Moca # (Auto) 0.5 (0.0-0.8) x10E3/uL Eos # [...] Agree with transfer to transplant service at [facility] for further management. Code(s): Z94.1 - Heart transplant status Plan Thank you very much for this kind consultation and for allowing me to participate in the care of this very pleasant patient. Documented By: Bonilla Ortiz MD 06/26/21 1415 Signed By: <Electronically signed by Bonilla Ortiz MD> 06/26/21 1426 [facility] Work Phone: 1(533) 425-894404-07-2022 History and physical note Author Omid Myrick [facility] June 26, 2021 7:44am Note Date/Time June 26, 2021 12:1 6am [facility] [address] [place], [place] [address] Hospitalist H&P Signed Patient: Oliverio Escobedo MR#: [id number] : 1945 Acct:[id number] Age/Sex: 75 / M Adm Date: 2 Loc: 3T Room: [address] [place] [address] Type : ADM INOo Attending Dr: Yoshi Hernandez MD Copies to: MD Manfred Olvera([facility]) DO Audra Wilson APRN Marwan Wassouf, MD~ [...] trying to schedule an appointment with [facility] diesel engine fitter but were unable. Patient is hard of [...] Surgical History (Updated 06/25/21 @ 22:29 by Andrwe Hernández DO) History of heart transplant Family [...] PO BID 02/02/17 [History Confirmed 06/25/21] omega 3-zhu-brn-fish oil 1,000 mg (120 mg-180 mg) capsule [...] % (Auto) 12.9 % (.) 06/25/21 19:30 Moca % (Auto) 7.3 % (.) 06/25/21 19:30 Eos % (Auto) 4.6 % (.) 06/25/21: Baso % (Auto) 0.6 % (.) 06/25/21: Neut # (Auto) 5.6 x10E3/uL (1.8-7.7) 06/25/21 19: Lymph # (Auto) 1.0 x10E3/uL (1.00-4.8) 06/25/21 19:30 Moca # (Auto) 0.5 x10E3/uL (0.0-0.8) 06/25/21 19: [...] MD Documented By: Audra Quinteros APRN 06/25/21 9713 Signed By: <Electronically signed by GABBIE Quinteros> 06/26/21 0057 <Electronically signed by Omid Myrick MD> 06/26/21 1660 [facility] Work Phone: 1(884) 399-558909-30-2021 Evaluation note* Diagnosis Namrata coma scale total score 13-15, at hospital admission- Primary Acute kidney injury (HCC) Acute kidney failure, unspecified Heart replaced by transplant (HCC) Heart replaced by transplant Confusion Unspecified psychosis [facility] Work Phone: 1(246) 254-636509-30-2021 History of Present illness Narrative* 74 yo [...] and aripirazole. Discharged back to [facility] with 2x/week home trips. * Immunosuppression: MMF 250 mg BID, tacrolimus 1.5 mg BID (FK 5.4 on 12/24/20, goal 5-8) * Rejection Hx/DSAs: None documented * Last echo: 12/20/20 AH-Dyicxzibtw-YVA [facility] [address] [place] Work Phone: 1([phone]) 425-322209-28-2021 History of Present illness Narrative* Liliya Baker RN - 12/17/2020 10:31 AM EDT Spoke with nurse from [facility] at this time. They will fax lab work to us from [facility]. documented in this [facility] Work Phone: 1([phone]) 351-810804-16-2001 History of Present illness Narrative* Mr. Escobedo [...] September 2021. [place] He has started Zoloft for depression. 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 Needs assistance with transfers. He has not had any new doctors appointmetns. * Immunosuppression: MMF 250 mg BID, tacrolimus 1 mg BID (FK 11.0 on 10/10/21, goal 5-8) * Rejection Hx/DSAs: None documented * Last echo: 12/20/20 YW-Juwlpavlyh-DSY [facility] Work Phone: Chief complaint Narrative - [...] 04:20 PM , for a telehealth visit. UF-Ilhzwixkxz-HIL [facility] [address] [place] Work Phone: Evaluation noteNo assessment information available [facility] Work Phone: Evaluation note* Diagnosis Onset Date Resolution Status Acute kidney injury acute Bilateral edema of lower extremity acute Shortness of breath acute [facility] Work Phone: Evaluation note* Diagnosis Onset Date Resolution Status Acute kidney injury acute Bilateral edema of lower extremity acute History of heart transplant acute Shortness of breath acute [facility] Work Phone: Evaluation note* Psychological: [...] distress, alert and cooperative, hard of hearing [facility]* Mr. [...] and aripirazole. Discharged back to [facility] with 2x/week home trips. * Immunosuppression: MMF 250 mg BID, tacrolimus 1.5 mg BID (FK 5.4 on 12/24/20, goal 5-8) * Rejection Hx/DSAs: None documented * Last echo: 12/20/20 YE-Jgtisgansg-LRJ [facility] [address] [place] Work Phone: History of Present [...] edema. Spoke with RN at [facility]; states LE edema has been ongoing for several weeks, with a rash . * Labs drawn 06/24/21; BNP 224 * Immunosuppression: MMF 250 mg BID, tacrolimus 1.5 mg BID (FK 5.4 on 12/24/20, goal 5-8) - FK pendingfrom 06/24/21 from SNF * Rejection Hx/DSAs: None documented * Last echo: 12/20/20 WX-Yrvltgnjdo-PCH [facility] [address] [place] Work Phone: History of Present [...] Hx/DSAs: None documented * Last echo: 12/20/20 PA-Rspholdkeu-WJX [facility] [address] [place] Work Phone: History [...] Hx/DSAs: None documented * Last echo: 12/20/20 ID-Gmlgjhgzws-HKM [facility] [address] [place] Work Phone: History [...] last office visit; documented BPs at the [facility] 120-130s/70-80s. * Benadryl 25 mg q6h PRN for itching/dry skin. 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 Relationship Specialty Start Date End Date Michael Carballo [address] [place] [address] PCP - General Specialist 12/17/20 Goals (unrecognized [...] section and content) DATE CREATED AUTHOR 07/14/2021 [facility] DATE CREATED AUTHOR AUTHOR'S ORGANIZ ATION 04/18/2022 [facility] DATE CREATED AUTHOR AUTHOR'S ORGANIZ ATION 07/17/2022 [employer] DATE CREATED AUTHOR AUTHOR'S ORGANIZ ATION 07/31/2022 [facility] DATE CREATED AUTHOR AUTHOR'S ORGANIZ ATION 09/07/2022 [facility] DATE CREATED AUTHOR AUTHOR'S ORGANIZ ATION 09/14/2022 [facility] DATE CREATED AUTHOR AUTHOR'S ORGANIZ ATION 11/21/2022 [facility] FOR RECORDS PERTAINING TO PATIENTS WHO [...] BE BASED ON THE PRIMARY CLINICAL RECORDS. [facility]. provides no warranty or guarantee of the accuracy or completeness of information in this document.
--- NOTE | 2023-11-25 09:51 | SWNOTE1 ---
BRIDGET met with pt and family in room to discuss hospice. Pt is from [facility]. After speaking with family, it sounds pt has had along medical history and pt and family voiced they are ready for hospice and for pt to be comfortable. The voiced she has attempted to get this set up 2 weeks ago, but [facility] had said they can manage. Family really feels he needs hospice involved for the pain medication aspect and extra support. Pt is already a DNRCC. Family is alright with pt returning to [facility] float [facility] with hospice as long as hospice is in charge of medications and coming in to provide extra care as well. Family has decided on [facility]. BRIDGET to send referral. Referral sent to [facility]. Referral included face sheet, ED note, H&P, provider notes, case management report, wound consult, nursing notes, diagnostic imaging, med list, DNR order, and hospice order.
--- NOTE | 2023-11-25 09:54 | P.HP_ITS ---
HPI H&P: HPI History of Present Illness Chief complaint: CHEST PAIN/ RESPIRATORY DISTRESS/HOSPICE CONSULT Narrative: Patient has been in a long-term decline with his heart failure. Difficulty breathing overnight. Presented the emergency with respiratory distress. Initially placed on BiPAP and then nasal cannula, after much discussion with the family overnight they at this point they elected to go with just hospice Opioid HPI Opioid Management Most Recent Pain and Opioid Data: Last ORT Total Score 0 11/03/23 17:50 Last ORT Risk Category Low Risk 11/03/23 17:50 PFSH PFSH Medical History (Updated 11/25/23 @ 06:56 by Leola Gómez MD) Adult idiopathic generalized osteoporosis ?M81.8 - Other osteoporosis without current pathological fracture (ICD-10) High cholesterol ?E78.00 - Pure hypercholesterolemia, unspecified (ICD-10) Anxiety ?F41.9 - Anxiety disorder, unspecified (ICD-10) Psoriasis ?L40.9 - Psoriasis, unspecified (ICD-10) GERD (gastroesophageal reflux disease) ?K21.9 - Gastro-esophageal reflux disease without esophagitis (ICD-10) Depression ?F32.A - Depression, unspecified (ICD-10) Thyroid disease ?E07.9 - Disorder of thyroid, unspecified (ICD-10) HTN (hypertension) ?I10 - Essential (primary) hypertension (ICD-10) 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, 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) CHF (congestive heart failure) ?I50.9 - Heart failure, unspecified (ICD-10) Dysphagia ?R13.10 - Dysphagia, unspecified (ICD-10) Diabetes ?E11.9 - Type 2 diabetes mellitus without complications (ICD-10) AMS (altered mental status) ?R41.82 - Altered mental status, unspecified (ICD-10) DAVID (acute kidney injury) ?N17.9 - Acute kidney failure, unspecified (ICD-10) CVA (cerebral vascular accident) ?I63.9 - Cerebral infarction, unspecified (ICD-10) Parkinson disease ?G20.A1 - Parkinson's disease without dyskinesia, without mention of fluctua tions (ICD-10) Surgical History (Updated 11/03/23 @ 18:14 by Nubia Joy) Heart transplanted ?Z94.1 - Heart transplant status (ICD-10) Social History Highest level of school completed/degree received: 9th grade Meds Home Medications and Allergies Home Medications ?Medication ?Instructions ?Recorded ?Confirmed ?Type aspirin 81 mg tablet,delayed 81 mg PO DAILY 11/03/23 11/25/23 History release (Adult Low Dose Aspirin) buspirone 10 mg tablet 10 mg PO BID 11/03/23 11/25/23 History carbidopa 25 mg-levodopa 100 mg 1.5 tab PO TID 11/03/23 11/25/23 History tablet cholecalciferol (vitamin D3) 25 25 mcg PO DAILY 11/03/23 11/25/23 History mcg (1,000 unit) capsule clonidine HCl 0.2 mg tablet 0.2 mg PO Q12H 11/03/23 11/25/23 History clopidogrel 75 mg tablet 75 mg PO DAILY 11/03/23 11/25/23 History diltiazem HCl 300 mg 300 mg PO .QHS 11/03/23 11/25/23 History capsule,extended release 24 hr docusate sodium 100 mg capsule 100 mg PO BID 11/03/23 11/25/23 History hydralazine 100 mg tablet 100 mg PO Q8H 11/03/23 11/25/23 History acetaminophen 325 mg tablet 650 mg PO Q4H PRN fever or pain 11/04/23 11/25/23 History alendronate 35 mg tablet 35 mg PO QWEEK 11/04/23 11/25/23 History bisacodyl 10 mg rectal suppository 10 mg TX DAILY PRN constipation 11/04/23 11/25/23 History (Dulcolax (bisacodyl)) calcium carbonate 500 mg-vitamin 1 tab PO BID 11/04/23 11/25/23 History D3 5 mcg (200 unit) tablet (Calcium 500 + D) insulin glargine-yfgn 100 unit/mL 55 unit subcut BID 11/04/23 11/25/23 History (3 mL) subcutaneous pen insulin lispro 100 unit/mL 4 - 14 unit subcut ACHS 11/04/23 11/25/23 History subcutaneous pen isosorbide mononitrate 120 mg 120 mg PO DAILY 11/04/23 11/25/23 History tablet,extended release 24 hr levothyroxine 100 mcg tablet 100 mcg PO .ACB 11/04/23 11/25/23 History magnesium hydroxide 400 mg/5 mL 30 ml PO DAILY PRN constipation 11/04/23 11/25/23 History oral suspension (Milk of Magnesia) magnesium oxide 400 mg PO BID 11/04/23 11/25/23 History melatonin 1 mg tablet 2 mg PO .QHS 11/04/23 11/25/23 History mycophenolate mofetil 250 mg 250 mg PO BID 11/04/23 11/25/23 History capsule omega-3 fatty acids-fish oil 340 1 cap PO BID 11/04/23 11/25/23 History mg-1,000 mg capsule pantoprazole 40 mg tablet,delayed 40 mg PO DAILY 11/04/23 11/25/23 History release polyethylene glycol 3350 17 gram 17 g PO DAILY PRN constipation 11/04/23 11/25/23 History oral powder packet (ClearLax) simethicone 80 mg chewable tablet 80 mg PO QID PRN abdominal 11/04/23 11/25/23 History (Gas Relief 80 (simethicone)) distention tacrolimus 1 mg capsule, 1 mg PO BID 11/04/23 11/25/23 History immediate-release atorvastatin 40 mg tablet 40 mg PO .qhs 11/25/23 11/25/23 History furosemide 40 mg tablet 40 mg PO .qd 11/25/23 11/25/23 History sertraline 50 mg tablet 50 mg PO .qhs 11/25/23 11/25/23 History Allergies Allergy/AdvReac Type Severity Reaction Status Date / Time allopurinol AdvReac Intermediate Verified 04/14/23 18:08 cefazolin AdvReac Intermediate Verified 04/14/23 18:08 Exam Constitutional Vital Signs, click to edit/add: Last Vital Signs Temp 97.3 F L 11/25/23 09:16 Pulse 87 11/25/23 09:16 Resp 20 11/25/23 09:16 BP 148/71 H 11/25/23 09:16 Pulse Ox 96 11/25/23 09:16 O2 Del Method Nasal Cannula 11/25/23 09:16 O2 Flow Rate 4 11/25/23 09:16 FiO2 50 11/25/23 07:00 Documenting provider has reviewed patient's vital signs: yes Common normals: apparent distress (Sonorous respirations) Respiratory Common normals: no retractions; abnormal respiratory effort Cardio Common normals: regular rate and regular rhythm GI Common normals: Normal to inspection, nondistended, normoactive bowel sounds present (some abd breathing) Neuro Common normals: not oriented x3 (obtunded) Assessment and Plan Assessment and Plan (1) Acute respiratory distress: (2) CHF (congestive heart failure): Plan Admission findings: Increasing respiratory distress, recent downward spiral, family has elected to go with hospice Acute combined CHF: Deteriorating - hospice to evaluate plan later today Admission status: Observation - plan per hospice
--- NOTE | 2023-11-25 10:39 | SWNOTE1 ---
Medicare Outpatient Observation Notice reviewed and discussed with patient. Pt. verbalized understanding and signed the form. Original given to patient and copy placed in patient?s chart. BRIDGET spoke to Charisma at [place] and she will be over after she is done at the [place]. BRIDGET updated nursing and family.
--- NOTE | 2023-11-25 12:30 | SWNOTE1 ---
Charisma from [facility] came in and spoke with family in room. They have decided to move forward with [facility]. Charisma attempting to set up transport, but they are all booked and earliest would be 9:00 this evening by Reyna. Charisma from [place] set up [facility] for 9:00pm. Nursing is aware. BRIDGET called and notified Elizabeth at [facility]. BRIDGET to send updates. BRIDGET and Charisma spoke with family in room to update them. A hospice nurse will be at [facility] around 2:00pm to admit pt and then mustapha will do an evening tuck at [facility]. Nursing and family aware. Pt will return to [facility] halfway.
--- NOTE | 2023-11-25 12:39 | PM.DS1 ---
DS: Providers Provider Date of admission: 11/25/23 08:49 Primary care physician: SUZI RICHEY Consults: 11/25/23 Consult to Hospice Routine Reason for consultation: found unresponsive 11/25/23 09:49 Consult to Hospice Routine Reason for consultation: terminal heart failure Has provider been notified: No DS: Diagnosis Discharge Diagnosis (1) Acute respiratory distress: (2) CHF (congestive heart failure): Assessment and plan: Patient is terminal DS: Summary Hospital Course Hospital Course: Patient is having increasing respiratory distress over the last several weeks, deteriorated rapidly last night. Brought into the emergency room with his rapid decline, family discussed and would like to be evaluated by hospice. Hospice came into evaluate patient and they will go back to the rehabilitation facility under the care of hospice. This will happen later today. Medications per hospice. Follow-up per PCP at rehab facility or hospice physician-condition terminal Status at Discharge Functional status at discharge: bed bound Overall status at discharge: patient is not back to baseline Time Spent with Patient Time attestation: Total time spent providing and/or coordinating discharge services: Time spent: greater than 30 minutes Exam Constitutional Vital Signs, click to edit/add: Last Vital Signs Temp 97.3 F L 11/25/23 09:16 Pulse 87 11/25/23 09:16 Resp 20 11/25/23 09:16 BP 148/71 H 11/25/23 09:16 Pulse Ox 96 11/25/23 09:16 O2 Del Method Nasal Cannula 11/25/23 09:16 O2 Flow Rate 4 11/25/23 09:16 FiO2 50 11/25/23 07:00 Documenting provider has reviewed patient's vital signs: yes Common normals: apparent distress (Sonorous respirations) Respiratory Common normals: no retractions; abnormal respiratory effort Cardio Common normals: regular rate and regular rhythm GI Common normals: Normal to inspection, nondistended, normoactive bowel sounds present (some abd breathing) Neuro Common normals: not oriented x3 (obtunded) Discharge Plan Discharge Disposition: Hospice - Home Discharge Medications: Continued buspirone 10 mg tablet 10 mg PO BID carbidopa-levodopa 25-100 mg tablet 1.5 tab PO TID cholecalciferol (vitamin D3) 25 mcg (1,000 unit) capsule 25 mcg PO DAILY clonidine HCl 0.2 mg tablet 0.2 mg PO Q12H clopidogrel 75 mg tablet 75 mg PO DAILY diltiazem HCl 300 mg capsule,extended release 24hr 300 mg PO .QHS docusate sodium 100 mg capsule 100 mg PO BID hydralazine 100 mg tablet 100 mg PO Q8H aspirin [Adult Low Dose Aspirin] 81 mg tablet,delayed release (DR/EC) 81 mg PO DAILY acetaminophen 325 mg tablet 650 mg PO Q4H PRN (Reason: fever or pain) bisacodyl [Dulcolax (bisacodyl)] 10 mg suppository 10 mg NC DAILY PRN (Reason: constipation) insulin glargine-yfgn 100 unit/mL (3 mL) insulin pen 55 unit subcut BID isosorbide mononitrate 120 mg tablet extended release 24 hr 120 mg PO DAILY levothyroxine 100 mcg tablet 100 mcg PO .ACB magnesium oxide 400 mg magnesium tablet 400 mg PO BID melatonin 1 mg tablet 2 mg PO .QHS magnesium hydroxide [Milk of Magnesia] 400 mg/5 mL suspension 30 ml PO DAILY PRN (Reason: constipation) mycophenolate mofetil 250 mg capsule 250 mg PO BID pantoprazole 40 mg tablet,delayed release (DR/EC) 40 mg PO DAILY polyethylene glycol 3350 [ClearLax] 17 gram powder in packet 17 g PO DAILY PRN (Reason: constipation) tacrolimus 1 mg capsule 1 mg PO BID simethicone [Gas Relief 80 (simethicone)] 80 mg tablet,chewable 80 mg PO QID PRN (Reason: abdominal distention) calcium carbonate-vitamin D3 [Calcium 500 + D] 500 mg-5 mcg (200 unit) tablet 1 tab PO BID alendronate 35 mg tablet 35 mg PO QWEEK insulin lispro 100 unit/mL insulin pen 4 - 14 unit SUBCUT ACHS Rx Instructions: 150-200 4 UNITS 201-250 6 UNITS 251-300 8 UNITS 301-350 10 UNITS 351-400 12 UNITS 401-450 14 UNITS omega-3 fatty acids-fish oil 340-1,000 mg capsule 1 cap PO BID atorvastatin 40 mg tablet 40 mg PO .qhs furosemide 40 mg tablet 40 mg PO .qd sertraline 50 mg tablet 50 mg PO .qhs Print Language: Italian Forms: Portal Instructions
[2023-11-25] MEDS: SCOPOLAMINE 1 MG/3 DAYS TRANSDERM PATCH 1 PATCH TD (14:21)
[2023-11-25] MEDS: MORPHINE SULFATE 2 MG/ML SYRINGE IV (14:22)
--- NOTE | 2023-11-25 19:39 | PC.NURSE ---
Walked into room, Patient not breathing. Publishing Specialist into room. Pupils unresponsive. No breath sounds. No apical pulse. No blood pressure. All verified by Maggie RN and Enrique RN. Hospice nurse notified. Hospice nurse to notify [facility].
--- NOTE | 2023-11-25 20:13 | PC.NURSE ---
[facility] referral # [id number]
--- NOTE | 2023-11-25 23:08 | PC.NURSE ---
Taken to [facility] at 2300
== END 2023-11-25 23:10 | disposition expired ==
LOC: ER 08:30 → MS 10:28
PROVIDERS: Admitting Provider Family Medicine; Emergency Provider Student in an Organized Health Care Education/Training Program; PCP Family Medicine; Visit Provider Family Medicine
DX: I50.41 Acute combined systolic (congestive) and diastolic (congestive) heart failure (principal); R06.03 Acute respiratory distress
CPT/HCPCS: 71045; 93005; 94660; 94761; 96374; 96375; 96376; 99285; G0378; J2060; J2270; J2405